=== PATIENT | female | born 1945 | race Caucasian/White ===

== ENCOUNTER 2018-01-28 22:30 | Observation (INO) | payer OTHER ==
--- OUTSIDE RECORDS SUMMARY | 2018-01-28 22:32 | XMS REPORT | Clinical Summary ---
:1945 Author Organization [facility] Address [address] [place] [address] Care Team Providers Name Role Phone Rodolfo Mathis MD Primary Care Provider Allergies Active Allergy Reactions Severity Noted Date Comments Naproxen Sodium 10/07/2016 Chest pain Codeine 10/07/2016 Chest pain-feels like having a heart attack Ibuprofen Hives, Itching 10/07/2016 Numbness in head Etodolac 10/07/2016 Chest pain Current Medications Prescription Sig. Disp. Refills Start Date End Date Status bisoprolol (ZEBETA) Take 5 mg by 1 09/08/2016 Active 5 MG tablet mouth daily. gabapentin TAKE 2 TABLET BY 1 09/20/2016 Active (NEURONTIN) 600 mg MOUTH 2 TIMES A tablet DAY FOR NERVE PAIN pantoprazole Take 40 mg by 0 09/04/2016 Active (PROTONIX) 40 MG EC mouth daily. tablet spironolactone Take 25 mg by 11 10/01/2016 Active (ALDACTONE) 25 MG mouth once daily. tablet aspirin (ECOTRIN) 81 Take 81 mg by Active MG enteric coated mouth daily. tablet cholecalciferol, Take by mouth. Active vitamin D3, (VITAMIN D3) 5,000 unit tablet CYANOCOBALAMIN, Take by mouth. Active VITAMIN B-12, (B-12 DOTS ORAL) multivitamin with Take 1 tablet by Active minerals tablet mouth daily. OMEGA-3 FATTY Take by mouth. Active ACIDS/FISH OIL (FISH OIL EXTRA STRENGTH ORAL) POTASSIUM CHLORIDE Take by mouth. Active ORAL OTC - 99mg takes one a day on her own. amoxicillin-pot Take 1 tablet by 0 08/16/2016 02/04/2017 Discontinued clavulanate mouth 2 (two) (AUGMENTIN) 875-125 times a day with mg per tablet meals. cefuroxime (CEFTIN) Take 250 mg by 1 09/15/2016 02/04/2017 Discontinued 250 MG tablet mouth 2 (two) times a day. colestipol Take 1 g by mouth 5 08/19/2016 02/04/2017 Discontinued (COLESTID) 1 gram 2 (two) times a tablet day. DULoxetine TAKE 1 TO 2 0 10/04/2016 02/28/2017 Discontinued (CYMBALTA) 20 MG CAPSULES BY MOUTH capsule AT BEDTIME FOR NERVE PAIN lisinopril Take 10 mg by 3 08/10/2016 02/04/2017 Discontinued (PRINIVIL,ZESTRIL) mouth once daily. 10 mg tablet predniSONE TAKE 2 TAB 0 08/16/2016 02/04/2017 Discontinued (DELTASONE) 10 mg 2XDAILY X1DAY,1 tablet TAB 2XDAILY X2DAYS,1/2 TAB 2XDAILY X2DAYS promethazine-DM TAKE ONE 1 08/16/2016 02/04/2017 Discontinued (PROMETHAZINE-DM) TEASPOONFUL EVERY 6.25-15 mg/5 mL 6 HOURS NEEDED syrup FOR COUGH PREVIDENT 5000 USE TWICE A DAY 0 09/07/2016 02/04/2017 Discontinued BOOSTER PLUS 1.1 % IN PLACE OF paste TOOTHPASTE. DON'T EAT DRINK OR RINSE FOR 30 MINUTES AFTER USE traMADol (ULTRAM) 50 TAKE 1 TABLET BY 0 02/17/2017 02/28/2017 Discontinued mg tablet MOUTH 4 TIMES A DAY NEEDED FOR PAIN venlafaxine XR TAKE 1 CAPSULE BY 2 02/04/2017 02/28/2017 Discontinued (EFFEXOR-XR) 75 MG MOUTH EVERY DAY. 24 hr capsule Active Problems Problem Noted Date Carpal tunnel syndrome of right wrist 2017 Carpal tunnel syndrome on right 10/07/2016 Cervical spondylosis with myelopathy and radiculopathy 10/07/2016 Arthropathy of right shoulder 10/07/2016 Encounters Date Type Specialty Care Team Description 03/03/2017 Office Visit Neurosurgery Richard Guanal tunnel curt Rangel MD of right wrist (Primary Dx) 03/03/2017 Telephone Neurosurgery Pinky Welsh LVN 02/28/2017 Orders Only Neurosurgery Terrie Asif 2017 Hospital Encounter General Surgery Richard Guan MD 2017 Procedure Pass General Surgery 2017 Surgery General Surgery Richard Guan RIGHT CARPAL TUNNEL MD Juan Carlos RE-EXPLORATION AND DECOMPRESSION 02/04/2017 Anesthesia Event General Surgery Jeanie Kuhn APRN after 01/27/2017 Family History Medical History Relation Name Comments Arthritis Father Asthma Father Diabetes Father Heart disease Father Hypertension Father Cancer Mother Gallbladder disease Mother Diabetes Sister Gallbladder disease Sister Heart disease Sister Hepatitis Sister Hypertension Sister Relation Name Status Comments Father Mother Sister Social History Tobacco Use Types Packs/Day Years Used Date Never Smoker Smokeless Tobacco: Never Used Alcohol Use Drinks/Week oz/Week Comments No Sex Assigned at Date Recorded Not on file Last Filed Vital Signs Vital Sign Reading Time Taken Blood Pressure 134/71 03/03/2017 12:18 PM CDT Pulse 73 03/03/2017 12:18 PM CDT Temperature 36.9 C (98.5 F) 2017 11:00 AM CDT Respiratory Rate 18 2017 1:23 PM CDT Oxygen Saturation 98% 2017 1:23 PM CDT Inhaled Oxygen Concentration - - Weight 59.9 kg (132 lb) 03/03/2017 12:18 PM CDT Height 162.6 cm (5' 4") 03/03/2017 12:18 PM CDT Body Mass Index 22.66 03/03/2017 12:18 PM CDT Plan of Treatment Health Maintenance Due Date Last Done Comments COLONOSCOPY 1995 MAMMOGRAM 1995 SHINGRIX VACCINE (#1) 1995 ZOSTER VACCINE 2005 PNEUMOCOCCAL POLYSACCHARIDE VACCINE AGE 65 AND OVER 2010 PNEUMOCOCCAL-13 2010 INFLUENZA VACCINE 04/19/2018 Procedures Procedure Name Priority Date/Time Associated Diagnosis Comments VA AN ELECTIVE Routine 2017 9:09 AM SUPRAGLOTTIC AIRWAY CDT Procedure Note - Nely Estrella MD - 2017 9:08 AM CDT Airway Performed by: NELY ESTRELLA Authorized by: NELY ESTRELLA Location: OR Urgency: Elective Difficult Airway: No Anesthesiologist: NELY ESTRELLA Performed by: anesthesiologist Preoxygenated with 100% O2: Yes C-spine Precautions Maintained Throughout: Yes Mask Ventilation: Easy mask Final Airway Type: Supraglottic airway Final LMA: Classic LMA Size: 4 Number of Attempts at Approach: 1 RIGHT CARPAL TUNNEL 2017 8:00 AM CDT RIGHT CARPAL TUNNEL RE-EXPLORATION AND DECOMPRESSION SYNDROM G56.01 Case Notes EST 2HRS, MICROSCOPE Special Needs EST 2HRS, MICROSCOPE after 01/27/2017 Results Potassium, syringe (2017 6:45 AM) Component Value Ref Range Potassium, syringe 4.5 3.5 - 5.0 mEq/L Specimen Performing Laboratory Blood [facility] DEPARTMENT OF PATHOLOGY AND GENOMIC MEDICINE [address] [place] [id number] ECG Pre/Post Op (02/04/2017 5:54 PM) Component Value Ref Range Ventricular rate 62 Atrial rate 62 VA interval 164 QRSD interval 74 QT interval 430 QTC interval 436 P axis 1 65 QRS axis 1 14 T wave axis 27 EKG impression Normal sinus rhythm-Normal ECG-In automated comparison with ECG of 01-MAR-2014 16:03,-Sinus rhythm has replaced Atrial fibrillation-Vent. rate has decreased BY82 BPM-Criteria for Inferior infarct ar e no longer present- Specimen Performing Laboratory [facility] MUSE [address] [place] [id number] Estimated GFR (02/04/2017 5:41 PM) Component Value Ref Range GFR Non Af Amer >90 mL/min/1.73 m2 GFR Af Amer >90 mL/min/1.73 m2 Comment: Chronic kidney disease: <60 mL/min/1.73m2 Kidney failure: <15 mL/min/1.73m2 The estimated GFR is calculated from the IDMS-traceable Modification of Diet in Renal Disease Equation. The accuracy of the calculation is poor when the creatinine is normal. Calculated values >90 mL/min/1.73m2 are not reported. This equation has not been validated in children (<18 years), women, the elderly (>70 years), or ethnic groups other than Caucasians and Americans. Specimen Performing Laboratory Plasma specimen [facility] DEPARTMENT OF PATHOLOGY AND GENOMIC MEDICINE [address] [place] [id number] CBC hemogram (02/04/2017 5:41 PM) Component Value Ref Range WBC 6.86 4.50 - 11.00 k/uL RBC 4.46 4.20 - 5.50 m/uL HGB 12.8 12.0 - 16.0 g/dL HCT 39.9 37.0 - 47.0 % MCV 89.5 82.0 - 100.0 fL MCH 28.7 27.0 - 34.0 pg MCHC 32.1 31.0 - 37.0 g/dL RDW - SD 42.4 37.0 - 55.0 fL MPV 11.8 8.8 - 13.2 fL Platelet count 214 150 - 400 k/uL Nucleated RBC 0.00 /100 WBC Specimen Performing Laboratory Blood [facility] DEPARTMENT OF PATHOLOGY AND GENOMIC MEDICINE [address] [place] [id number] Basic metabolic panel (02/04/2017 5:41 PM) Component Value Ref Range Sodium 146 135 - 148 mEq/L Potassium 3.0 (LL) 3.5 - 5.0 mEq/L Chloride 100 98 - 112 mEq/L CO2 31 24 - 31 mEq/L Anion gap 15 7 - 15 mEq/L Comment: Starting from December , anion gap calculation no longer incorporates potassium. Please note the change. BUN 15 8 - 23 mg/dL Creatinine 0.6 0.5 - 0.9 mg/dL Glucose 98 65 - 99 mg/dL Calcium 8.7 (L) 8.8 - 10.2 mg/dL Specimen Performing Laboratory Plasma specimen [facility] DEPARTMENT OF PATHOLOGY AND GENOMIC MEDICINE [address] [place] [id number] after 01/27/2017 Insurance Payer Benefit Plan / Group Subscriber ID Type Phone Address CORNELIA LOCKE PPO OPEN CHOICE xxxxxxxxx PPO MEDICARE MEDICARE PART A AND B xxxxxxxxxx Medicare [place], [place] [phone] [phone]
[2018-01-28] MEDS ORDERED: MORPHINE 4 MG/ML SYR ONE (22:45)
[2018-01-28] MEDS ORDERED: NA CHLORIDE 0.9% 500 ML ONE (22:45)
--- NOTE | 2018-01-29 00:47 | ER ---
Nurse's Notes [facility] Name: Sharla Tesfaye Age: 72 yrs Sex: Female : 1945 Arrival Date: 01/28/2018 Time: 22:32 Bed 25 Private MD: Diagnosis: Fall on same level from slipping, tripping and stumbling;Nondisplaced fracture of greater tuberosity of right humerus Presentation: 01/28 22:30 Presenting complaint: EMS states: Mechanical fall, c/o right shoulder and hip pain. rk2 Transition of care: patient was not received from another setting of care. Onset of symptoms was January 29, 2018. 22:30 Method Of Arrival: EMS: [facility] rk2 22:30 Initial Sepsis Screen: Does the patient meet any 2 criteria? No. Patient's initial rk2 sepsis screen is negative. Does the patient have a suspected source of infection? No. Patient's initial sepsis screen is negative. Care prior to arrival: None. 22:30 Acuity: JENNIFER 3 rk2 Historical: - Allergies: 22:40 Amoxicillin; tl3 22:40 Codeine; tl3 22:40 Etodolac; tl3 22:40 Ibuprofen; tl3 - Home Meds: 22:40 aspirin 81 mg Oral chew 1 tab once daily [Active]; bisoprolol fumarate 5 mg Oral tab 1 tl3 tab once daily [Active]; calcium citrate 600 mg Oral gran [Active]; Fish Oil 1,000 mg Oral cap [Active]; gabapentin 600 mg Oral tab 1 tab 3 times per day [Active]; spironolactone 25 mg Oral tab 1 tab once daily [Active]; pantoprazole 40 mg Oral TbEC 1 tab once daily [Active]; paroxetine HCl 20 mg Oral tab 1 tab once daily [Active]; magnesium oxide 400 mg Oral cap [Active]; Vitamin C 1,000 mg Oral tab [Active]; - PSHx: 22:41 Gastric Bypass; Knee surgery; Cholecystectomy; Appendectomy; Hysterectomy; tl3 Tonsillectomy; - Immunization history:: Adult Immunizations up to date. - Social history:: Smoking status: Patient/guardian denies using tobacco, never smoked. Screenin:41 Abuse screen: Denies threats or abuse. Nutritional screening: No deficits noted. tl3 Tuberculosis screening: No symptoms or risk factors identified. Fall Risk None identified. Assessment: 22:35 General: Appears distressed, uncomfortable, slender, well groomed, well developed, well tl3 nourished, Behavior is calm, cooperative, appropriate for age. Pain: Complains of pain in anterior aspect of right shoulder and posterior aspect of right shoulder, right hip Pain currently is 10 out of 10 on a pain scale. Neuro: Level of Consciousness is awake, alert, obeys commands, Oriented to person, place, time, situation, Appropriate for age. Cardiovascular: Heart tones S1 S2 present Capillary refill < 3 seconds in bilateral fingers. Respiratory: Airway is patent Trachea midline Respiratory effort is even, unlabored, Respiratory pattern is regular, symmetrical, Breath sounds are clear bilaterally. GI: No signs and/or symptoms were reported involving the gastrointestinal system. : No signs and/or symptoms were reported regarding the genitourinary system. EENT: No signs and/or symptoms were reported regarding the EENT system. Derm: No signs and/or symptoms reported regarding the dermatologic system. Musculoskeletal: Reports pt fell in the driveway 40 minutes PSYCHIATRIC CNS, c/o right shoulder and hip pain. 23:40 Reassessment: No changes from previously documented assessment. Patient and/or family tl3 updated on plan of care and expected duration. Pain level reassessed. Patient is alert, oriented x 3, equal unlabored respirations, skin warm/dry/pink. c/o pain with movement of left arm and hip. 01/29 00:20 Reassessment: No changes from previously documented assessment. Patient and/or family tl3 updated on plan of care and expected duration. Pain level reassessed. Patient is alert, oriented x 3, equal unlabored respirations, skin warm/dry/pink. pt assisted to bedside commode, it was slow moving, but she was able to get up using a walker to maneuver to commode. 01:03 Reassessment: Patient appears in no apparent distress at this time. No changes from tl3 previously documented assessment. Patient and/or family updated on plan of care and expected duration. Pain level reassessed. Patient is alert, oriented x 3, equal unlabored respirations, skin warm/dry/pink. Vital Signs: 01/28 22:26 BP 156 / 69; Pulse 64; Resp 18; Pulse Ox 100% on R/A; tl3 22:41 BP 167 / 73; Pulse 78; Resp 18; Pulse Ox 100% on R/A; tl3 01/29 00:20 BP 200 / 90; Pulse 68; Resp 18; Pulse Ox 100% ; tl3 01:03 BP 149 / 66; Pulse 68; Resp 16; Pulse Ox 100% on R/A; tl3 01:30 BP 125 / 55; Pulse 68; Resp 17; Pulse Ox 100% on R/A; rk2 ED Course: 01/28 22:26 on bedside commode. tl3 22:32 Patient arrived in ED. ds1 22:33 Elisab[facility] Mo [facility]C [facility]. snw 22:33 Alok Oneill MD is Attending Physician. snw 22:35 Theresa Figueroa, BENNY is Primary Nurse. tl3 22:41 Resting quietly. tl3 22:41 Patient has correct armband on for positive identification. Bed in low position. Call tl3 light in reach. Side rails up X 1. Adult w/ patient. Pulse ox on. NIBP on. 22:41 No provider procedures requiring assistance completed. tl3 23:19 X-ray completed. Portable x-ray completed in exam room. Patient tolerated procedure kp1 well. 23:19 XRAY Shoulder RIGHT 2 view In Process Unspecified. EDMS 23:19 Hip Right 2 View XRAY In Process Unspecified. EDMS 01/29 01:03 Deo Echeverria MD is Hospitalizing Provider. snw 01:31 Triage completed. rk2 02:19 Arm band placed on. rk2 02:19 Patient admitted, IV remains in place. rk2 Administered Medications: 01/28 22:50 Drug: morphine 2 mg Route: IVP; Site: left antecubital; tl3 23:41 Follow up: Response: No adverse reaction; Pain is decreased tl3 23:40 Drug: NS 0.9% 1000 ml Route: IV; Rate: 75 ml/hr; Site: left antecubital; tl3 01/29 00:53 Drug: cloNIDine 0.1 mg Route: PO; tl3 01:15 Follow up: Response: Blood pressure is lowered tl3 Outcome: 00:46 Discharge ordered by . snw 01:04 Decision to Hospitalize by Provider. snw 02:18 Admitted to Med/surg accompanied by tech, via stretcher. rk2 02:18 Condition: good 02:18 Instructed on the need for admit. 02:20 Patient left the ED. rk2 Signatures: Dispatcher [employer] EDMS Elisabet Mo, RAIL TRACK LAYER-C RAIL TRACK LAYER-Csnw Emy Obando ds1 Allison Floyd kp1 Jaja Tristan RN RN rk2 Theresa Figueroa RN RN tl3
--- NOTE | 2018-01-29 00:47 | EDPHYS ---
Physician Documentation [facility] Name: Sharla Tesfaye Age: 72 yrs Sex: Female : 1945 Arrival Date: 01/28/2018 Time: 22:32 Bed 25 Private MD: ED Physician Alok Oneill HPI: 01/28 22:35 This 72 yrs old Female presents to ER via Unassigned with complaints of fall snw on same level. 22:35 The patient or guardian complains of decreased range of motion, an injury, pain, that snw is acute. right shoulder. Context: The problem was sustained at home, resulted from a fall, helping Sister into home, lost balance, The patient experiences decreased range of motion, The patient notes a deformity, an anterior fullness, a deltoid step-off. Onset: The symptoms/episode began/occurred suddenly, just prior to arrival. Associated signs and symptoms: Pertinent positives: pain to right hip . The patient presents with decreased range of motion, an injury, pain. The complaints affect the right hip. Context: The problem was sustained at home, resulted from the patient falling, the patient is not able to bear weight, the patient is not able to ambulate. Historical: - Allergies: 22:40 Amoxicillin; tl3 22:40 Codeine; tl3 22:40 Etodolac; tl3 22:40 Ibuprofen; tl3 - Home Meds: 22:40 aspirin 81 mg Oral chew 1 tab once daily [Active]; bisoprolol fumarate 5 mg Oral tab 1 tl3 tab once daily [Active]; calcium citrate 600 mg Oral gran [Active]; Fish Oil 1,000 mg Oral cap [Active]; gabapentin 600 mg Oral tab 1 tab 3 times per day [Active]; spironolactone 25 mg Oral tab 1 tab once daily [Active]; pantoprazole 40 mg Oral TbEC 1 tab once daily [Active]; paroxetine HCl 20 mg Oral tab 1 tab once daily [Active]; magnesium oxide 400 mg Oral cap [Active]; Vitamin C 1,000 mg Oral tab [Active]; - PSHx: 22:41 Gastric Bypass; Knee surgery; Cholecystectomy; Appendectomy; Hysterectomy; tl3 Tonsillectomy; - Immunization history:: Adult Immunizations up to date. - Social history:: Smoking status: Patient/guardian denies using tobacco, never smoked. ROS: 22:34 Constitutional: Negative for fever, chills, and weight loss, Eyes: Negative for injury, snw pain, redness, and discharge, ENT: Negative for injury, pain, and discharge, Neck: Negative for injury, pain, and swelling, Cardiovascular: Negative for chest pain, palpitations, and edema, Respiratory: Negative for shortness of breath, cough, wheezing, and pleuritic chest pain, Abdomen/GI: Negative for abdominal pain, nausea, vomiting, diarrhea, and constipation, Back: Negative for injury and pain, : Negative for injury, bleeding, discharge, and swelling, Skin: Negative for injury, rash, and discoloration, Neuro: Negative for headache, weakness, numbness, tingling, and seizure. 22:34 MS/extremity: Positive for injury or acute deformity, contusion, decreased range of motion, pain, of the right shoulder and hip. Exam: 22:33 Constitutional: This is a well developed, well nourished patient who is awake, alert, snw and in no acute distress. Head/Face: Normocephalic, atraumatic. Eyes: Pupils equal round and reactive to light, extra-ocular motions intact. Lids and lashes normal. Conjunctiva and sclera are non-icteric and not injected. Cornea within normal limits. Periorbital areas with no swelling, redness, or edema. ENT: Nares patent. No nasal discharge, no septal abnormalities noted. Tympanic membranes are normal and external auditory canals are clear. Oropharynx with no redness, swelling, or masses, exudates, or evidence of obstruction, uvula midline. Mucous membranes moist. Neck: Trachea midline, no thyromegaly or masses palpated, and no cervical lymphadenopathy. Supple, full range of motion without nuchal rigidity, or vertebral point tenderness. No Meningismus. Chest/axilla: Normal chest wall appearance and motion. Nontender with no deformity. No lesions are appreciated. Cardiovascular: Regular rate and rhythm with a normal S1 and S2. No gallops, murmurs, or rubs. Normal PMI, no JVD. No pulse deficits. Respiratory: Lungs have equal breath sounds bilaterally, clear to auscultation and percussion. No rales, rhonchi or wheezes noted. No increased work of breathing, no retractions or nasal flaring. Abdomen/GI: Soft, non-tender, with normal bowel sounds. No distension or tympany. No guarding or rebound. No evidence of tenderness throughout. Back: No spinal tenderness. No costovertebral tenderness. Full range of motion. Skin: Warm, dry with normal turgor. Normal color with no rashes, no lesions, and no evidence of cellulitis. Neuro: Awake and alert, GCS 15, oriented to person, place, time, and situation. Cranial nerves II-XII grossly intact. Motor strength 5/5 in all extremities. Sensory grossly intact. Cerebellar exam normal. Normal gait. Psych: Awake, alert, with orientation to person, place and time. Behavior, mood, and affect are within normal limits. 22:33 Musculoskeletal/extremity: Extremities: grossly normal except: noted in the right shoulder and right hip: contusion, decreased ROM, ROM: limited active range of motion, limited active range of motion due to pain, limited passive range of motion due to pain, Circulation is intact in all extremities. Severe pain noted. Vital Signs: 22:26 BP 156 / 69; Pulse 64; Resp 18; Pulse Ox 100% on R/A; tl3 22:41 BP 167 / 73; Pulse 78; Resp 18; Pulse Ox 100% on R/A; tl3 01/29 00:20 BP 200 / 90; Pulse 68; Resp 18; Pulse Ox 100% ; tl3 01:03 BP 149 / 66; Pulse 68; Resp 16; Pulse Ox 100% on R/A; tl3 01:30 BP 125 / 55; Pulse 68; Resp 17; Pulse Ox 100% on R/A; rk2 MDM: 01/28 22:33 Patient medically screened. snw 01/29 00:50 Data reviewed: vital signs, nurses notes. Data interpreted: Pulse oximetry: on room air snw is 100 %. Interpretation: normal. Counseling: I had a detailed discussion with the patient and/or guardian regarding: the historical points, exam findings, and any diagnostic results supporting the discharge/admit diagnosis, the presence of at least one elevated blood pressure reading (>120/80) during this emergency department visit, radiology results, the need for further work-up and treatment in the hospital. 01:04 Physician consultation: Vangie Leon MD was called at 00:39, was contacted at 00:39, snw regarding admission, to the telemetry unit. would like admission per Dr. Deo Echeverria MD. 01/28 22:40 Order name: XRAY Shoulder RIGHT 2 view snw 01/28 22:40 Order name: Hip Right 2 View XRAY snw 01/28 22:40 Order name: Saline Lock; Complete Time: 23:40 snw 01/28 23:24 Order name: Sling: and swathe; Complete Time: 00:48 snw 01/28 23:33 Order name: Misc. Order: attempt standing position/ambulation; Complete Time: 00:17 snw Administered Medications: 01/28 22:50 Drug: morphine 2 mg Route: IVP; Site: left antecubital; tl3 23:41 Follow up: Response: No adverse reaction; Pain is decreased tl3 23:40 Drug: NS 0.9% 1000 ml Route: IV; Rate: 75 ml/hr; Site: left antecubital; tl3 01/29 00:53 Drug: cloNIDine 0.1 mg Route: PO; tl3 01:15 Follow up: Response: Blood pressure is lowered tl3 Disposition: 01/29/18 01:04 Hospitalization ordered by eDo Echeverria for Inpatient Admission. Preliminary diagnosis are Fall on same level from slipping, tripping and stumbling, Nondisplaced fracture of greater tuberosity of right humerus. - Bed requested for Telemetry/MedSurg (Inpatient). - Status is Inpatient Admission. rk2 - Condition is Stable. - Problem is new. - Symptoms are unchanged. UTI on Admission? No Addendum: 02/12/2018 10:02 Co-signature as Attending Physician, Alok Oneill MD. m a2 Signatures: Dispatcher [employer] EDMS Elisabet Mo, MANAGER WEALTH MANAGEMENT-C MANAGER WEALTH MANAGEMENT-Csnw Katheryn Duran, RN BENNY Alok Oneill MD MD ma2 Jaja Tristan RN RN rk2 Theresa Figueroa RN RN tl3 Corrections: (The following items were deleted from the chart) 01/29 00:49 00:46 01/29/2018 00:46 Discharged to Home. Impression: Fall on same level from snw slipping, tripping and stumbling; 2-part nondisplaced fracture of surgical neck of right humerus. Condition is Stable. Forms are Medication Reconciliation Form, Thank You Letter, Antibiotic Education, Prescription Opioid Use. Follow up: Private Physician; When: 2 - 3 days; Reason: Recheck today's complaints, Continuance of care, Re-evaluation by your physician. Follow up: Emergency Department; When: As needed; Reason: Worsening of condition. snw 01:28 01:04 Hospitalization Ordered by Deo Echeverria MD for Inpatient Admission. Preliminary cg diagnosis is Fall on same level from slipping, tripping and stumbling; Nondisplaced fracture of greater tuberosity of right humerus. Bed requested for Telemetry/MedSurg (Inpatient). Status is Inpatient Admission. Condition is Stable. Problem is new. Symptoms are unchanged. UTI on Admission? No. snw 02:20 01:28 01/29/2018 01:04 Hospitalization Ordered by Deo Echeverria MD for Inpatient rk2 Admission. Preliminary diagnosis is Fall on same level from slipping, tripping and stumbling; Nondisplaced fracture of greater tuberosity of right humerus. Bed requested for Telemetry/MedSurg (Inpatient). Status is Inpatient Admission. Condition is Stable. Problem is new. Symptoms are unchanged. UTI on Admission? No. cg
[2018-01-29] MEDS ORDERED: cloNIDine HCl 0.1 MG TAB ONE (00:52)
[2018-01-29 03:05] VITALS: BMI 24.5
[2018-01-29 03:47] LABS: Absolute Lymphocytes (CBC) 0.9 K/uL (0.7-4.9); Absolute Neutrophil 10.9 K/uL (1.8-8.0); Basophils % 0.4 % (0-1.3); Eosinophils % 0.2 % (0-4.4); Hematocrit 37.7 % (36.0-45.0); Lymphocytes % 6.8 % (15.3-44.8); MCH 27.3 pg (27.0-35.0); MCV 84.6 fL (80-100); MPV 10.7 fL (7.6-11.3); Monocytes % 7.6 % (3.3-12.3); RBC Red Blood Cell Count 4.45 M/uL (3.86-4.86)
[2018-01-29] MEDS ORDERED: D5 0.45 NS 1,000 ML IV SCH (04:00)
[2018-01-29 04:08] LABS: Bicarbonate 29 mEq/L (21-31); Glucose Level 141 mg/dL (65-120); Potassium 3.2 mEq/L (3.6-5.0); Sodium Level 141 mEq/L (135-145)
[2018-01-29 04:09] LABS: BUN Blood Urea Nitrogen 17 mg/dL (6-20)
[2018-01-29 04:39] LABS: Thyroid Stimulating Hormone 1.94 uIU/mL (0.34-5.60)
[2018-01-29] MEDS: FENTANYL CITR 100 MCG/2 ML IV PRN ×2 (09:49→13:39)
--- NOTE | 2018-01-29 11:36 | RAD REPORT ---
EXAM DESCRIPTION: RAD - Hip Right 2 View - 01/28/2018 11:20 pm CLINICAL HISTORY: Fall, right hip pain COMPARISON: None. FINDINGS: The bones are quite osteopenic, limiting assessment. Grossly, a fracture is not seen. Adriane varma, if the patient has difficulty with weight-bearing, recommend MR imaging of the right hip for fur ther assessment to evaluate for occult fracture.
--- NOTE | 2018-01-29 11:37 | RAD REPORT ---
EXAM DESCRIPTION: RAD - Shoulder Right 2 View - 01/28/2018 11:20 pm CLINICAL HISTORY: Fall, right shoulder pain COMPARISON: None. FINDINGS: Impacted surgical neck fracture is seen of the proximal right humerus. Evidence of previou s right rotator cuff repair noted. No dislocation.
--- NOTE | 2018-01-29 12:15 | P.HP ---
Certification for Inpatient Patient admitted to: Observation With expected LOS: <2 Midnights Practitioner: I am a practitioner with admitting privileges, knowledge of patient current condition, hospital course, and medical plan of care. Services: Services provided to patient in accordance with Admission requirements found in Title 42 Section 412.3 of the Code of Federal Regulations Patient History Date of Service: 01/29/18 Reason for admission: FELL AND BROKE R HUMERUS History of Present Illness: FRANCE IS 89 YEARS OLD LADY WITH OSTEOPENIA , FELL OUTSIDE ON CONCRETE TRYING TO HOLD HER SICK SISTER AND FELL ON RIGHT SIDE. SHE HAS R HUMERUS FRACTURE AND RIGHT HIP MODERATE PAIN. MRI CAN'T BE DONE ON THE WEEKEND FOR RIGHT HIP. Allergies amoxicillin Allergy (Unverified 01/29/18 03:02) Unknown codeine Allergy (Verified 01/29/18 03:02) abdominal pain ibuprofen Allergy (Verified 01/29/18 03:02) Hives etodolac [From Lodine] Adverse Reaction (Verified 01/29/18 03:02) crushing chest pain when used with annaprox annaprox Adverse Reaction (Uncoded 01/29/18 03:02) crushing chest pain when used with lodine Home Medications: Ascorbic Acid [Vitamin C*] 500 mg PO BID 06/17/15 Cyanocobalamin [Vitamin B-12*] 1,000 mcg PO DAILY 06/17/15 Gabapentin [Neurontin] 600 mg PO TID 06/17/15 Pantoprazole [Protonix Tab*] 40 mg PO DAILY 06/17/15 Spironolactone [Aldactone*] 25 mg PO DAILY 06/17/15 Aspirin [Children's Aspirin] 1 tab PO DAILY 01/29/18 Bisoprolol Fumarate [Zebeta*] 1 tab PO DAILY 01/29/18 Calcium Carbonate [Calcium] 1 tab PO DAILY 01/29/18 Fish Oil 227 mg PO BID 01/29/18 Vit C 1,000 mg PO DAILY 01/29/18 Vit D3` 5,000 mg PO DAILY 01/29/18 - Past Medical/Surgical History Has patient received pneumonia vaccine in the past: Yes Diabetic: No -: Gastric bypass -: Knee surgery -: Cholecystectomy -: Appendectomy -: Hysterectomy -: tonsillectomy - Family History Father -: Diabetes - Social History Smoking Status: Never smoker Alcohol use: No CD- Drugs: No Caffeine use: No Place of Residence: Home Review of Systems 10-point ROS is otherwise unremarkable Musculoskeletal: Shoulder Pain, As per HPI Physical Examination - Vital Signs Temperature: 98.4 F Blood Pressure: 168/76 Pulse: 71 Respirations: 16 Pulse Ox (%): 97 - Physical Exam General: Alert, Moderate distress HEENT: Atraumatic, PERRLA, Mucous membr. moist/pink, EOMI, Sclerae nonicteric Neck: Supple, 2+ carotid pulse no bruit, No LAD, Without JVD or thyroid abnormality Respiratory: Clear to auscultation bilaterally, Normal air movement Cardiovascular: Regular rate/rhythm, Normal S1 S2 Gastrointestinal: Normal bowel sounds, No tenderness Musculoskeletal: Tenderness (R HUMERUS), Other Integumentary: No rashes Neurological: Normal gait, Normal speech, Normal strength at 5/5 x4 extr, Normal tone, Normal affect Lymphatics: No axilla or inguinal lymphadenopathy Assessment and Plan - Problems (Diagnosis) (1) Humerus fracture Current Visit: Yes Status: Acute Plan: CONSULT ORTHOPEDICS PAIN MX FENTANYL IV Qualifiers: Encounter type: initial encounter (2) Hip injury Current Visit: Yes Status: Acute Plan: MRI IN AM TALKED TO DR GONZALES HE SAYS CT SCAN WILL MISS AN OSTEOPENIC FRACTURE SHE IS IN TOO MUCH PAIN TO GO HOME. HOLD PT UNTIL MRI RULES OUT HIP FRACTURE. Qualifiers: Encounter type: initial encounter Laterality: right Qualified Code(s): S79.911A - Unspecified injury of right hip, initial encounter - Advance Directives Does patient have a Living Will: Yes Does patient have a Durable POA for Healthcare: Yes
[2018-01-29] MEDS: GABAPENTIN 300 MG CAP PO SCH ×2 (13:39→21:05)
[2018-01-29] MEDS ORDERED: FENTANYL CITR 100 MCG/2 ML IV PRN (13:41)
[2018-01-29] MEDS: D5 0.45 NS 1,000 ML IV SCH (15:23)
--- NOTE | 2018-01-29 20:13 | CON ---
Consultation is by Deo Echeverria MD, regarding impacted fracture proximal right humerus and right hip pain associated with fall and impact. History Of Present Illness: Sharla Tesfaye is a 72-year-old female who presented to the emergency room after a fall outside at home. She was trying to help her sister, who was ill and she fell to land on her right side impacting concrete after losing her balance. The patient on x-ray was noted to have an impacted fracture of the right proximal humerus and has complaints of right hip pain with negative x-ray, AP and frog lateral, right hip. She is admitted and scheduled for MRI scan of the right hip to rule out stress fracture tomorrow. Allergies: THE PATIENT HAS MEDICAL ALLERGIES TO AMOXICILLIN, CODEINE, ETODOLAC , AND IBUPROFEN. Home Medications: Reviewed. She is taking aspirin 81 mg daily and gabapentin 600 mg oral tablet t.i.d. amongst other medications that were reviewed. Past Medical History: Includes gastric bypass, knee surgery, cholecystectomy, appendectomy, hysterectomy, and tonsillectomy. Social History: The patient is a nonsmoker. Review of Systems: Negative for 10 system review. The patient has had back complaints in the past with MRI scan of the lumbar spine done on 10/20/2016 showing osteopenia with multiple wedge compression deformities throughout the thoracic and lumbar spine levels with marrow edema noted at T11, L2, L3, and L4, most severely at L3 and L4. Severe canal stenosis was noted at L4-L5 with bilateral recess stenosis. Physical Examination: General: This is a well nourished, well developed, 72-year-old female who is at bedrest with complaints of right shoulder and right hip pain. Pain in the right shoulder is aggravated by any movement. Neurovascular: Exam is intact for the right upper extremity. The right hip pain is described as running into and down her hamstring. She has been joking with her family about pulling her hammy. On examination, she allows gentle circumduction motion of the right hip as long as she leaves her hip relaxed, she tolerates this mild amount of movement. Straight leg lift increases the posterior hip and thigh pain. The patient demonstrates dorsiflexion of the ankle and toes. Neurovascular exam is intact. Homans sign is negative. Even slight internal or external rotation causes discomfort. Assessment: This patient has an impacted right humeral neck fracture that appears to be a 2-part fracture taken in the AP projection with slight rotation of the humerus. The patient has fallen with impact to the right hip and a stress fracture is of concern. The x-rays AP and frog lateral of the right hip show no fracture or dislocation and weightbearing joint space is appropriate. Assessment, 2-part impacted humeral neck fracture, right shoulder. Plan: The patient will be placed in a shoulder immobilizer. Then true AP and Y -view x-rays will be requested as a trauma series to show if there is any anterior shaft displacement. The patient will have MRI scan of the right hip to rule out stress fracture. Posterior hip pain into the posterior thigh can be related to sciatica as this patient has previous history of osteopenia and multiple wedge compression deformities with bilateral foraminal stenosis at L4- L5. MRI would be considered should her hip be cleared of stress fracture. PRAFUL/MARCIAL Voice ID: [id number] Report ID: [id number] ULISES
[2018-01-29] MEDS: HYDROCODONE/APAP 7.5/325 MG TAB PO PRN (21:05)
[2018-01-30 00:07] LABS: Urine Appearance CLEAR; Urine Bilirubin NEGATIVE (NEG); Urine Blood NEGATIVE (NEG); Urine Color YELLOW; Urine Glucose NEGATIVE (NEG); Urine Protein NEGATIVE (NEG); Urine Specific Gravity <=1.005 (1.005-1.030); Urine Urobilinogen 0.2 mg/dL (0.2-1.0); Urine pH 6.5 (5.0-7.0)
[2018-01-30 00:23] LABS: Urine Microscopic Reflex ORDER UMIC
[2018-01-30 01:21] LABS: Urine Bacteria 20-50 /HPF (<20); Urine Culture Reflex Order REFLEXED; Urine RBC <5 /HPF (NONE SEEN)
--- NOTE | 2018-01-30 09:19 | RAD REPORT ---
EXAM DESCRIPTION: RAD - Shoulder Right 2 View - 01/30/2018 8:19 am CLINICAL HISTORY: Fall, shoulder pain COMPARISON: 01/28/2018 FINDINGS: Again noted is mildly impacted surgical neck fracture proximal right humerus. No dislocati on is evident. Evidence of previous rotator cuff repair. The bones are diffusely osteopenic.
[2018-01-30] MEDS: CYANOCOBALAMIN 1,000 MCG TAB PO SCH (09:30)
[2018-01-30] MEDS: VITAMIN D 5,000 UNIT CAP PO SCH (09:30)
[2018-01-30] MEDS: GABAPENTIN 300 MG CAP PO SCH ×3 (09:30→21:01)
[2018-01-30] MEDS: PANTOPRAZOLE 40MG TABLET PO SCH (09:30)
[2018-01-30] MEDS: BISOPROLOL 5 MG TABLET PO SCH (09:30)
[2018-01-30] MEDS: D5 0.45 NS 1,000 ML IV SCH (13:17)
[2018-01-30] MEDS: HYDROCODONE/APAP 7.5/325 MG TAB PO PRN (13:17)
--- NOTE | 2018-01-30 16:49 | P.PN ---
Date of Service: 01/30/18 S: PATIENT IS MORE COMFORTABLE IN SHOULDER IMMOBILIZER FOR RIGHT UPPER EXTREMITY. MOBILIZATION HAS BEEN HELD PENDING WAIT FOR MRI SCAN REPORT RIGHT HIP. O: VSS, ADDITIONAL X-RAYS RIGHT SHOULDER VERIFY MINIMALLY DISPLACED AND IMPACTED FRACTURE OF THE SURGICAL NECK PROXIMAL HUMERUS. DR. FRANCOIS CALLED FROM RADIOLOGY DURING THIS VISIT TO REPORT THAT NO HIP FRACTURE IS PRESENT, INSTEAD THERE ARE RIGHT PUBIC RAMI FRACTURES OF THE PELVIS. A: MINIMALLY DISPLACED FRACTURES OF THE PROXIMAL RIGHT HUMERUS AND RIGHT PUBIC RAMI CAN BE MOBILIZED TOLERATED PAIN RESOLVES. NEITHER FRACTURE SHOULD REQUIRE OPERATIVE INTERVENTION. P: MOBILIZE WEIGHTBEARING TOLERATED RIGHT LOWER EXTREMITY USING A LEFT CHANTELL- WALKER. PATIENT HAS EXPRESSED DESIRE TO RETURN HOME WITH HOME HEALTH, BUT WILL HAVE TO DEMONSTRATE RAPID PROGRESS WITH MOBILIZATION.
--- NOTE | 2018-01-30 17:22 | RAD REPORT ---
EXAM DESCRIPTION: MRI - Hip Right Wo Cont - 01/30/2018 12:31 pm CLINICAL HISTORY: Fall, right hip pain COMPARISON: 01/28/2018 plain radiograph FINDINGS: Edema signal seen in the superior and inferior pubic rami on the right compatible with non displaced pubic rami fractures. Proximal right femur and femoroacetabular joints are preserved. A large amount of edema is seen within the right gluteal musculature as well as the adductor musculat ure of the hip. Subtle edema and linear T1 hypointensity in the right sacral ala likely represents an insufficiency f racture. IMPRESSION: Nondisplaced superior and inferior pubic rami fractures on the right suspected with sign ificant edema within the adductor and gluteal musculature. Right hip fracture is not seen. Right sacral ala signal abnormality likely represents an insufficiency fracture. Dr. Echeverria was notified.
--- NOTE | 2018-01-30 18:11 | P.PN ---
Subjective Date of Service: 01/30/18 Chief Complaint: FELL AND BROKE R HUMERUS ABOUT THE SAME. MRI REPORT PENDING. Review of Systems 10-point ROS is otherwise unremarkable General: Weakness, Malaise Musculoskeletal: As per HPI Physical Examination - Vital Signs Temperature: 98.8 F Blood Pressure: 155/67 Pulse: 76 Respirations: 18 Pulse Ox (%): 97 - Physical Exam General: Alert, Moderate distress HEENT: Atraumatic, PERRLA, EOMI Neck: Supple, JVD not distended Respiratory: Clear to auscultation bilaterally, Normal air movement Cardiovascular: Regular rate/rhythm, Normal S1 S2 Gastrointestinal: Normal bowel sounds, No tenderness Musculoskeletal: Other (RIGHT HIP PAIN, POSTERIOR) Integumentary: No rashes Neurological: Normal speech, Normal tone, Normal affect Lymphatics: No axilla or inguinal lymphadenopathy - Studies Medications List Reviewed: Yes Assessment And Plan - Current Problems (Diagnosis) (1) Humerus fracture Onset Date: 01/30/18 Current Visit: Yes Status: Acute Plan: CONSULT ORTHOPEDICS PAIN MX FENTANYL IV Qualifiers: Encounter type: initial encounter (2) Hip injury Onset Date: 01/30/18 Current Visit: Yes Status: Acute Plan: MRI IN AM TALKED TO DR GONZALES HE SAYS CT SCAN WILL MISS AN OSTEOPENIC FRACTURE SHE IS IN TOO MUCH PAIN TO GO HOME. HOLD PT UNTIL MRI RULES OUT HIP FRACTURE. Qualifiers: Encounter type: initial encounter Laterality: right Qualified Code(s): S79.911A - Unspecified injury of right hip, initial encounter (3) Pubic ramus fracture Current Visit: Yes Status: Acute Plan: SUP AND INF RAMI FRACTURE I CALLED TO GET REPORT STABLE ADVISE PAIN MX AND PT Qualifiers: Encounter type: initial encounter Fracture type: closed Laterality: right Qualified Code(s): S32.591A - Other specified fracture of right pubis, initial encounter for closed fracture
[2018-01-31] MEDS: D5 0.45 NS 1,000 ML IV SCH (05:57)
[2018-01-31 07:29] LABS: Absolute Lymphocytes (CBC) 1.3 K/uL (0.7-4.9); Absolute Monocytes 1.1 K/uL (0.1-1.3); Absolute Neutrophil 7.9 K/uL (1.8-8.0); Basophils % 0.6 % (0-1.3); Eosinophils % 1.8 % (0-4.4); Lymphocytes % 12.5 % (15.3-44.8); MCH 27.4 pg (27.0-35.0); MCV 84.5 fL (80-100); Monocytes % 10.4 % (3.3-12.3); RBC Red Blood Cell Count 4.26 M/uL (3.86-4.86)
[2018-01-31 07:44] LABS: BUN Blood Urea Nitrogen 6 mg/dL (6-20); Glucose Level 140 mg/dL (65-120)
[2018-01-31 07:47] LABS: Bicarbonate 32 mEq/L (21-31); Sodium Level 140 mEq/L (135-145)
[2018-01-31 08:05] LABS: Potassium 2.8 mEq/L (3.6-5.0)
[2018-01-31 09:12] VITALS: O2SAT 99
[2018-01-31] MEDS: CYANOCOBALAMIN 1,000 MCG TAB PO SCH (09:14)
[2018-01-31] MEDS: KCL 20 MEQ/100 mL IVPB 20 MEQ/100 ML BAG IV SCH ×2 (09:14→11:00)
[2018-01-31] MEDS: VITAMIN D 5,000 UNIT CAP PO SCH (09:14)
[2018-01-31] MEDS: GABAPENTIN 300 MG CAP PO SCH ×2 (09:15→13:25)
[2018-01-31] MEDS: BISOPROLOL 5 MG TABLET PO SCH (09:15)
[2018-01-31] MEDS: HYDROCODONE/APAP 7.5/325 MG TAB PO PRN ×2 (09:15→13:25)
[2018-01-31] MEDS: PANTOPRAZOLE 40MG TABLET PO SCH (09:15)
[2018-01-31] MEDS ORDERED: POTASSIUM CL SA 10 MEQ TAB PO SCH (13:30)
[2018-01-31 15:00] VITALS: BP 168/64; TEMP 97.1
--- NOTE | 2018-01-31 15:18 | P.PN ---
Date of Service: 01/31/18 S: PATIENT IS SITTING UP IN CHAIR BY BEDSIDE WITH HEMIWALKER NEXT TO CHAIR. MOBILIZATION WAS PAINFUL WITH STEPS ONTO RLE. . O: VSS, HGB 11.7, DOWN FROM 12.2, K+ 2.8 L, URINE > 100K,3+ Gm- ROCIO PENDING ID. RIGHT SHOULDER COMFORTABLE IN SHOULDER IMMOBILIZER DISPLACED AND . MRI SCAN REPORT OF THE RIGHT HIP HAS IDENTIFIED NONDISPLACED RIGHT PUBIC RAMI FRACTURES, AND INCREASED UPTAKE TO INDICATE A RIGHT SACRAL ALA INSUFFICIENCY FRACTURE A: CLOSED, MINIMALLY DISPLACED, IMPACTED FRACTURE OF THE RIGHT PROXIMAL HUMERUS SURGICAL NECK. NONDISPLACED SUPERIOR AND INFERIOR RIGHT PUBIC RAMI FRACTURES OF PELVIS NONDISPLACED RIGHT SACRAL ALA INSUFFICIENCY FRACTURE PATIENT CAN BE MOBILIZED TOLERATED PAIN RESOLVES. PATIENT'S MINIMALLY OR NONDISPLACED FRACTURES NOT LIKELY TO REQUIRE OPERATIVE INTERVENTION. P: CONTINUE TO MOBILIZE PATIENT TO WEIGHT BEARING TOLERATED RIGHT LOWER EXTREMITY USING A LEFT HEMIWALKER. 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
--- NOTE | 2018-01-31 21:24 | P.DS ---
Admission Date: 01/29/18 Discharge Date: 01/31/18 Disposition: TRANSFER TO INPATIENT REHAB Discharge Condition: FAIR Reason for Admission: FELL AND BROKE R HUMERUS - Problems (1) Humerus fracture Onset Date: 01/30/18 Status: Acute Qualifiers: Encounter type: initial encounter (2) Hip injury Onset Date: 01/30/18 Status: Acute Qualifiers: Encounter type: initial encounter Laterality: right Qualified Code(s): S79.911A - Unspecified injury of right hip, initial encounter (3) Pubic ramus fracture Status: Acute Qualifiers: Encounter type: initial encounter Fracture type: closed Laterality: right Qualified Code(s): S32.591A - Other specified fracture of right pubis, initial encounter for closed fracture Brief History of Present Illness: FRANCE IS 89 YEARS OLD LADY WITH OSTEOPENIA , FELL OUTSIDE ON CONCRETE TRYING TO HOLD HER SICK SISTER AND FELL ON RIGHT SIDE. SHE HAS R HUMERUS FRACTURE AND RIGHT HIP MODERATE PAIN. MRI CAN'T BE DONE ON THE WEEKEND FOR RIGHT HIP. FRANCE FELL OUTSIDE WHEN TRYING TO HOLD HER SISTER WHO HAS HAD SEVERE ALCOHOL PROBLEM. SHE BROKE RIGHT HUMERUS AND HAS TWO PUBIC RAMI FRACTURES ON RIGHT SIDE. SHE IS NOW TRANSFERRED TO REHAB. Vital Signs/Physical Exam: Temp Pulse Resp BP Pulse Ox 97.1 F 75 18 168/64 H 96 01/31/18 12:00 01/31/18 12:00 01/31/18 12:00 01/31/18 12:00 01/31/18 12:00 Laboratory Data at Discharge: WBC 10.6 K/uL (4.3-10.9) D 01/31/18 07:17 Hgb 11.7 g/dL (12.0-15.0) L 01/31/18 07:17 Hct 36.0 % (36.0-45.0) 01/31/18 07:17 Plt Count 150 K/uL (152-406) L 01/31/18 07:17 Sodium 140 mEq/L (135-145) 01/31/18 07:17 Potassium 2.8 mEq/L (3.6-5.0) L* 01/31/18 07:17 BUN 6 mg/dL (6-20) 01/31/18 07:17 Creatinine 0.55 mg/dL (0.44-1.00) 01/31/18 07:17 Glucose 140 mg/dL (65-120) H 01/31/18 07:17 Home Medications: Ascorbic Acid [Vitamin C*] 500 mg PO BID 06/17/15 Cyanocobalamin [Vitamin B-12*] 1,000 mcg PO DAILY 06/17/15 Gabapentin [Neurontin] 600 mg PO TID 06/17/15 Pantoprazole [Protonix Tab*] 40 mg PO DAILY 06/17/15 Spironolactone [Aldactone*] 25 mg PO DAILY 06/17/15 Aspirin [Children's Aspirin] 1 tab PO DAILY 01/29/18 Bisoprolol Fumarate [Zebeta*] 1 tab PO DAILY 01/29/18 Calcium Carbonate [Calcium] 1 tab PO DAILY 01/29/18 Fish Oil 227 mg PO BID 01/29/18 Vit C 1,000 mg PO DAILY 01/29/18 Vit D3` 5,000 iu PO DAILY 01/29/18 Followup: Deo Echeverria MD [Primary Care Provider] - Zach Galvez MD [ACTIVE - CAN ADMIT] -
== END 2018-01-31 15:42 ==
LOC: ER 22:30 → INTOOBSV 01-29 00:55 → ERHOLD 01-29 00:55 → 2ND 01-29 01:40
PROVIDERS: ADMIT Internal Medicine; ATTEND Internal Medicine
DX: S42.211A Unspecified displaced fracture of surgical neck of right humerus, initial encounter for closed fracture (principal); S32.591A Other specified fracture of right pubis, initial encounter for closed fracture; S32.10XA Unspecified fracture of sacrum, initial encounter for closed fracture; W01.0XXA Fall on same level from slipping, tripping and stumbling without subsequent striking against object, initial encounter; Y92.480 Sidewalk as the place of occurrence of the external cause; Z88.0 Allergy status to penicillin; Z98.84 Bariatric surgery status
CPT/HCPCS: 36415 ×2; 73030 ×2; 73502; 73721; 80048 ×2; 84443; 85025 ×2; 87077; 87086; 87088; 87186; 96374; 97110; 97116 ×2; 97163; 97530 ×2; 99285; G0378 ×2; J3010 ×2; 81003; 81015

== ENCOUNTER 2018-01-31 09:26 | Inpatient (IN) | payer OTHER ==
--- NOTE | 2018-01-31 14:14 | R.PREADM ---
SCREENING DATE AND TIME 01/31/2018 10:32 (CDT) ANTICIPATED REHAB ADMISSION DATE 02/02/2018 REFERRING FACILITY [facility] REFERRAL DATE AND TIME 01/31/2018 10:32 (CDT) ACUTE ADMIT DATE 01/29/2018 Previous Rehabilitation(s): No. REFERRING PHYSICIAN ABDOULAYE FRANCOIS REHAB FACILITY [facility] CLINICAL LIAISON Jonnathan Mcneil PHYSICIAN REVIEWER Dr. Luke Major M.D. MR# [id number] NAME FRANCE BAUMANN AD[address]ESS [address] [facility] PHONE [facility] [address] DATE OF 1945 AGE 72 SSN# [id number] GENDER female MARITAL STATUS Unknown RACE white ADMIT FROM 02 - [facility] PRE-HOSPITAL LIVING SETTING 01 - Home (private home/apt. board/care, assisted living, detention, transitional living) HOME TYPE AND DETAILS Type of home: single family house # of steps within the residence: 0 # of steps to enter the residence: 0 # of levels in the residence: 1 PRE-HOSPITAL LIVING WITH Family/Relatives FAMILY SUPPORT Yes PRIMARY FAMILY CONTACT NAME Cnosuelo Tuttle PRIMARY FAMILY CONTACT PHONE PHONE PRIMARY FAMILY CONTACT ON ADM.? no IS PRIMARY FAMILY CONTACT AUTH. REP.? no 1ST EMERGENCY CONTACT Consuelo Tuttle 1ST CONTACT PHONE PHONE 1ST CONTACT ON ADM. no IS 1ST CONTACT AUTH. REP.? no PHONE 2ND CONTACT ON ADM.? no PATIENT EMPLOYMENT STATUS Retired (for age) PATIENT EMPLOYER No Employer PAYOR INFORMATION: 1ST PAYOR NAME Medicare 1ST PAYOR PHONE 1ST PAYOR INJURY/ILLNESS DUE TO ACCIDENT? No ANOTHER REPUBLICAN RESPONSIBLE? No PRIMARY REHAB/ACUTE DIAGNOSIS: pubic ramus fx, humerus fx, hip pain ONSET DATE 01/29/2018 REHAB IMPAIRMENT CATEGORY (KATHIE): 07 Fracture of LE (FracLE) MEETS 60% rule PRIMARY DIAGNOSIS-RELATED SURGERIES: No surgeries related to the primary diagnosis were performed. COMORBID REHAB/ACUTE DIAGNOSES: - N/A osteopenia hypertension INTERVENTIONS: - Hypertension Fluid management Medications VS RISK FOR COMPLICATIONS: - Hypertension CVA Hypotension WI TIA SUMMARY OF ACUTE HOSPITALIZATION: Pt. is a 72 yo Right-handed white female. On 01/29/2018 she was admitted to [facility] with diagnosis pubic ramus fx, hum erus fx, hip pain. Her impairment category is Orthopaedic Disorders 08 - Pelvic Fracture (08.3). Pre-morbidly, Pt. was independent/mod-I in Sphincter Control, Transfers Control, Communication, Socia l Cognition, Self-Care, and Locomotion; and she had good Sphincter Control. Currently, she has deficits of Endurance, Safety Awareness, Transfers Control, Balance, Locomotion, a nd Self-Care. Pt. is now referred to [facility] for acute in-patient rehabilitation in order to maximize patient's functional independence in activities of daily living, strength, ROM, and mobi lity. Patient has realistic goal of being discharged at assistance level 6-Candy to reside at Home with Fam brian/Relatives. PAST MEDICAL HISTORY hypertension osteopenia MEDICATION ALLERGIES: amoxicillin CODEINE ibuprofen etodolac annaprox ENVIRONMENTAL ALLERGIES: - Substance Allergies None Known - Other Allergies None Known CODE STATUS: Full code WEIGHT/HEIGHT/BMI: WEIGHT 143 lbs HEIGHT 5' 4" BMI 24.5 DIET: - Diet Type Regular - Diet - Solid Texture Regular - Diet - Liquid Texture Regular - Tube Feed N/A REVIEW OF SYSTEMS: - Gen Alert and awake Lying in bed No apparent distress Oriented to: person, time, and place - Vital Signs Vital signs stable, afebrile - CVS RRR VITAL SIGNS Temperature: 98.8 F SBP/DBP: 155/67 Pulse: 76 Resp: 18 Vital signs stable, afebrile CURRENT SPHINCTER CONTROL: Pre-hospital bladder status: continent # of bladder accidents in the last 7 days prior to screenin Pre-hospital bowel status: continent # of bowel accidents in the last 7 days prior to screenin Last Bowel Movement Date: 01/31/2018 DETAILED CURRENT FUNCTIONAL STATUS: - Bladder accident frequency: Ind - No accidents in the past 7 days - Bowel accident frequency: Ind - No accidents in the past 7 days - Walking score based on distance walked: 1(<=50ft) FUNCTIONAL STATUS: - Self-Care A. Eating Ind Ind B. Grooming Ind Ind C. Bathing Ind Ind D. Dressing - Upper Ind Ind E. Dressing - Lower Ind maxA F. Toileting Ind maxA - Sphincter Control G: Bladder control Ind Ind H: Bowel control Ind Ind - Transfers Control I. Bed/Chair/Wheelchair Ind maxA J. Toilet Ind maxA K. Tub/Shower Ind maxA - Locomotion L. Walk/Wheelchair (B) Ind Dep M. Stairs Ind ADNO - Communication N. Comprehension (B) Ind Ind O. Expression (B) Ind Ind - Social Cognition P. Social Interaction Ind Ind Q. Problem Solving Ind Ind R. Memory Ind Ind - Endurance Poor - Balance Poor - Safety Awareness Poor CURRENT FUNC. DEFICITS: Endurance, Safety Awareness, Transfers Control, Balance, Locomotion, and Self-Care THERAPY NOTES FROM ACUTE CARE: Attached. SPECIAL NEEDS: - Safety Concerns Skin breakdown precautions needed due to skin breakdown risk PATIENT NEEDS ACTIVE AND ONGOING THERAPEUTIC INTERVENTION OF MULTIPLE THERAPY DISCIPLINES, INCLUDING: - Occupational Therapy Evaluate and Treat. - Physical Therapy Evaluate and Treat. PATIENT NEEDS CLOSE MEDICAL SUPERVISION BY A REHABILITATION PHYSICIAN FOR: Bowel and Bladder Management Coordination of Treatment Team Medical and Co-Morbidity Management PATIENT REQUIRES 24X7 REHAB NURSING FOR MEDICAL AND FUNCTIONAL MGT. OF THE FOLLOWING DEFICITS: ADL's Ambulation Bowel and Bladder Management Communication Disease Management Medication Management Patient/Family Education Providing Safe Environment Transfers PATIENT REQUIRES INTENSIVE, COORDINATED INTERDISCIPLINARY APPROACH TO REHAB: Arranging Home Equipment/Services Discharge Planning Family Intervention/Training Automotive Production Worker/Case Management PATIENT REHAB POTENTIAL: Expected level of measurable improvement will be of a practical value to patient's functional capacit y or adaptations to impairments Has a viable Discharge Plan Medically appropriate; condition is sufficiently stable to participate in intensive rehab program Patient is able and expected to receive 3 hours of individualized therapy daily on at least 5 of ever y 7 days Patient's prognosis for significant practical improvement within a reasonable period of time appears Good DISCHARGE PLAN: - Estimated Length of Stay (days) 14. - Consensus on plan Discharge plan has been discussed with primary caregiver. Patient/Family is in agreement with the jeremy n. Primary caregiver is in agreement with the plan. - Patient/Family Goals Return home with assistance. - Planned Living Setting Upon Discharge Home, to live with Family/Relatives. RECOMMENDED CARE LEVEL: IRF RECOMMENDATION DETAILS: Recommended Admission to Comprehensive Rehabilitation Program to Increase Functional Schuyler SCREENER'S COMPLETENESS CONFIRMATION: - Screening Confirmation The patient data collection on this preadmission screening form is finished PHYSICIANS REVIEW AND ADMISSION DETERMINATION Admit - Based on my review of the Pre-Admission Screening results, in my medical judgment and experie nce, I concur with the findings and recommend admission to [facility], as this patient requires an IRF level of care. SIGNATURE PANEL: Clinical Liaison - [electronically] signed by Bebe Sutherland on 01/31/2018 at 10:45 (CDT) Clinical Liaison - [electronically] signed by Jonnathan Mcneil on 01/31/2018 at 11:08 (CDT) Physician Reviewer - [electronically] signed by Dr. Luke Major M.D. on 01/31/2018 at 13:16 (CDT )
--- OUTSIDE RECORDS SUMMARY | 2018-01-31 15:48 | XMS REPORT | Clinical Summary ---
:1945 Author Organization [facility] Address [address] [place] [address] Care Team Providers Name Role Phone Rodolfo [...] Event General Surgery Jeanie Kuhn APRN after 01/30/2017 Family History Medical History Relation Name Comments [...] Procedure Name Priority Date/Time Associated Diagnosis Comments PA AN ELECTIVE Routine 2017 9:09 AM SUPRAGLOTTIC [...] MICROSCOPE Special Needs EST 2HRS, MICROSCOPE after 01/30/2017 Results Potassium, syringe (2017 6:45 AM) Component Value Ref Range Potassium, syringe 4.5 3.5 - 5.0 mEq/L Specimen Performing Laboratory Blood [facility] DEPARTMENT OF PATHOLOGY AND GENOMIC MEDICINE [address] [place] [id number] ECG Pre/Post Op (02/04/2017 5:54 PM) Component Value Ref Range Ventricular rate 62 Atrial rate 62 PA interval 164 QRSD interval 74 QT interval 430 QTC interval 436 P axis 1 65 QRS axis 1 14 T wave axis 27 EKG impression Normal sinus rhythm-Normal ECG-In automated comparison with ECG of 01-MAR-2014 16:03,-Sinus rhythm has replaced Atrial fibrillation-Vent. rate has decreased BY82 BPM-Criteria for Inferior infarct ar e no longer present- Specimen Performing Laboratory [facility] MUSE [address] [place] [id number] Estimated GFR (02/04/2017 5:41 PM) Component Value [...] and Americans. Specimen Performing Laboratory Plasma specimen [facility] DEPARTMENT OF PATHOLOGY AND GENOMIC MEDICINE [address] [place] [id number] CBC hemogram (02/04/2017 5:41 PM) Component Value [...] 0.00 /100 WBC Specimen Performing Laboratory Blood [facility] DEPARTMENT OF PATHOLOGY AND GENOMIC MEDICINE [address] [place] [phone] Basic metabolic panel (02/04/2017 5:41 PM) Component [...] 10.2 mg/dL Specimen Performing Laboratory Plasma specimen [facility] DEPARTMENT OF PATHOLOGY AND GENOMIC MEDICINE [address] [place] [id number] after 01/30/2017 Insurance Payer Benefit Plan / Group Subscriber ID Type Phone Address CORNELIA LOCKE PPO OPEN CHOICE xxxxxxxxx PPO MEDICARE MEDICARE PART A AND B xxxxxxxxxx Medicare [place], [place] [phone] [phone]
[2018-01-31] MEDS ORDERED: FISH OIL PO SCH (18:00)
[2018-01-31] MEDS: GABAPENTIN 300 MG CAP PO SCH (20:19)
[2018-01-31] MEDS: POTASSIUM CL SA 10 MEQ TAB PO SCH (20:20)
[2018-01-31] MEDS: ASCORBIC ACID 500 MG TABLET PO SCH (20:20)
--- NOTE | 2018-02-01 03:48 | FAST ---
SHIFT START DATE/TIME: 01/31/2018 19:00 (CDT) SHIFT END DATE/TIME: 02/01/2018 07:00 (CDT) NAME FRANCE BAUMANN DATE OF : 1945 DATE OF ADMISSION: 01/31/2018 15:46 (CDT) PHONE: AGE: 72 N# [id number] GENDER: Female ENCOUNTER PHYSICIAN: Dr. Luke Major M.D. ADMISSION DIAGNOSIS: - Orthopaedic Disorders 08 - Pelvic Fracture (08.3) pubic ramus fx, humerus fx, hip pain. EATING: Activity did not occur on this shift EATING - SCORE: 0-UNK GROOMING: Activity did not occur on this shift GROOMING - SCORE: 0-UNK BATHING: Activity did not occur on this shift BATHING - SCORE: 0-UNK DRESSING - UPPER BODY: Patient is not dressing in public clothing ARTICLES SCORE Total number of steps: 0 DRESSING - UPPER BODY - SCORE: 0-UNK DRESSING - LOWER BODY: Patient is not dressing in public clothing ARTICLES SCORE Total number of steps: 0 DRESSING - LOWER BODY - SCORE: 0-UNK TOILETING: Activity did not occur on this shift TOILETING - SCORE: 0-UNK BLADDER MANAGEMENT: [place] cares for sifuentes catheter including emptying drainage bag. BLADDER MANAGEMENT - SCORE: 1-DEP BOWEL MANAGEMENT: Activity did not occur on this shift BOWEL MANAGEMENT - SCORE: 7-IND TRANSFERS: BED, CHAIR, WHEELCHAIR: Activity did not occur on this shift TRANSFERS: BED, CHAIR, WHEELCHAIR - SCORE: 0-UNK TRANSFERS: TOILET: Activity did not occur on this shift TRANSFERS: TOILET - SCORE: 0-UNK TRANSFERS: SHOWER: Activity did not occur on this shift TRANSFERS: SHOWER - SCORE: 0-UNK TRANSFERS: TUB: Activity did not occur on this shift TRANSFERS: TUB - SCORE: 0-UNK LOCOMOTION: WALK: Activity did not occur on this shift LOCOMOTION: WALK - SCORE: 0-UNK LOCOMOTION: WHEELCHAIR: Activity did not occur on this shift LOCOMOTION: WHEELCHAIR - SCORE: 0-UNK COMPREHENSION: COMPREHENSION - STEP 1: Does the patient require help to understand complex and abstract ideas (such as current events, finan shea, discharge planning, medical issues, relationships, etc)? No. COMPREHENSION - STEP 2: Does the patient need extra time, require an assistive device (such as glasses, hearing aids, or an a ugmentative communication system), OR does s/he have mild difficulty expressing complex and abstract ideas (including mild dysarthria or mild word-finding problems)? Yes. COMPREHENSION - SCORE: 6-TINO EXPRESSION EXPRESSION - STEP 1: Does the patient require help expressing complex and abstract ideas (such as current events, finances , discharge planning, medical issues, relationships, etc)? No. EXPRESSION - STEP 2: Does the patient need extra time, require an assistive device (such as augmentive communication syste m or a communication board), OR does s/he have mild difficulty expressing complex and abstract ideas (including mild dysarthria or mild word-find problems)? No. EXPRESSION - SCORE: 7-IND SOCIAL INTERACTION: SOCIAL INTERACTION - STEP 1: Does the patient require a helper to interact with others in social and therapeutic situations? No. SOCIAL INTERACTION - STEP 2: Does the patient need extra time in social situations, OR does s/he interact with staff, other patien ts, and family members ONLY in structured environments, OR does s/he require medication for social in teraction? No. SOCIAL INTERACTION - SCORE: 7-IND PROBLEM SOLVING: PROBLEM SOLVING - STEP 1: Does the patient need help to solve complex problems such as managing a checking account or confronti ng interpersonal problems? No. PROBLEM SOLVING - STEP 2: Does the patient require extra time to make decisions or solve problems, OR does s/he have slight dif ficulty reading, initiating, or self-correcting in unfamiliar situations? Yes, patient needs extra ti me. PROBLEM SOLVING - SCORE: 6-TINO MEMORY: MEMORY - STEP 1: Does the patient need help to remember frequently encountered people, daily routines, and executing r equests? No. MEMORY - STEP 2: Does the patient have slight difficulty recognizing frequently encountered people, daily routines, or executing requests without the need for repetition or using self-initiated or environmental cues to remember? Yes. MEMORY - SCORE: 6-TINO SIGNATURE PANEL: The following modified sections: Eating - Score, Grooming - Score, Dressing - Upper Body - Score, Adam ssing - Lower Body - Score, Toileting - Score, Bladder Management - Score, Bowel Management - Score, Transfers: Bed, Chair, Wheelchair - Score, Transfers: Toilet - Score, Transfers: Shower - Score, Jo sfers: Tub - Score, Locomotion: Walk - Score, Locomotion: Wheelchair - Score, Comprehension - Score, Expression - Score, Social Interaction - Score, Problem Solving - Score, Memory - Score were [electro nically] signed by Ellen Canada CNA on TueFeb 01 2018 02:49:50 GMT-0500 (Central Daylight Time)
[2018-02-01 06:51] LABS: Absolute Monocytes 1.4 K/uL (0.1-1.3); Absolute Neutrophil 6.6 K/uL (1.8-8.0); Basophils % 1.2 % (0-1.3); Eosinophils % 3.1 % (0-4.4); Hematocrit 37.9 % (36.0-45.0); Lymphocytes % 19.3 % (15.3-44.8); MCH 27.6 pg (27.0-35.0); MCV 85.4 fL (80-100); MPV 10.4 fL (7.6-11.3); Monocytes % 13.4 % (3.3-12.3); RBC Red Blood Cell Count 4.44 M/uL (3.86-4.86)
[2018-02-01 07:06] LABS: Albumin 3.1 g/dL (3.2-5.5); BUN Blood Urea Nitrogen 10 mg/dL (6-20); Bicarbonate 27 mEq/L (21-31); Glucose Level 126 mg/dL (65-120); Magnesium 1.8 mg/dL (1.8-2.5); Potassium 4.7 mEq/L (3.6-5.0); Prealbumin 10.1 mg/dl (18-38); Sodium Level 140 mEq/L (135-145)
[2018-02-01] MEDS: SPIRONOLACTONE 25 MG TABLET PO SCH (08:08)
[2018-02-01] MEDS: VITAMIN D 5,000 UNIT CAP PO SCH (08:08)
[2018-02-01] MEDS: POTASSIUM CL SA 10 MEQ TAB PO SCH ×2 (08:08→21:14)
[2018-02-01] MEDS: BISOPROLOL 5 MG TABLET PO SCH (08:08)
[2018-02-01] MEDS: CYANOCOBALAMIN 1,000 MCG TAB PO SCH (08:09)
[2018-02-01] MEDS: HYDROCODONE/APAP 7.5/325 MG TAB PO PRN ×3 (08:09→21:14)
[2018-02-01] MEDS: PANTOPRAZOLE 40MG TABLET PO SCH (08:09)
[2018-02-01] MEDS: ASCORBIC ACID 500 MG TABLET PO SCH ×2 (08:11→21:14)
[2018-02-01] MEDS: GABAPENTIN 300 MG CAP PO SCH ×3 (08:11→21:14)
[2018-02-01] MEDS: ASPIRIN EC 81 MG TAB PO SCH (08:21)
--- NOTE | 2018-02-01 11:54 | FAST ---
SHIFT START DATE/TIME: 02/01/2018 07:00 (CDT) SHIFT END DATE/TIME: 02/01/2018 19:00 (CDT) NAME FRANCE BAUMANN DATE OF : 1945 DATE OF ADMISSION: 01/31/2018 15:46 (CDT) PHONE: AGE: 72 N# [id number] GENDER: Female ENCOUNTER PHYSICIAN: Dr. Luke Major M.D. ADMISSION DIAGNOSIS: - Orthopaedic Disorders 08 - Pelvic Fracture (08.3) pubic ramus fx, humerus fx, hip pain. EATING: EATING - STEP 1: Does the patient require assistance when eating? Yes. EATING - STEP 2: Does the patient require the assistance of a helper? No, patient only requires an assistive device, O R s/he takes more than reasonable time to eat, OR there is a safety concern, OR s/he requires modifie d food consistency EATING - SCORE: 6-TINO GROOMING: Activity did not occur on this shift GROOMING - SCORE: 0-UNK BATHING: Activity did not occur on this shift BATHING - SCORE: 0-UNK BATHING - COMMENTS: BATHED WITH OT DRESSING - UPPER BODY: Activity did not occur on this shift ARTICLES SCORE Total number of steps: 0 DRESSING - UPPER BODY - SCORE: 0-UNK DRESSING - UPPER BODY - COMMENTS: DRESSED WITH OT DRESSING - LOWER BODY: Activity did not occur on this shift ARTICLES SCORE Total number of steps: 0 DRESSING - LOWER BODY - SCORE: 0-UNK DRESSING - LOWER BODY - COMMENTS: Dressed with OT TOILETING: TOILETING - STEP 1: Does the patient require assistance with toileting? Yes. TOILETING - STEP 2: Does the patient require the assistance of a helper? Yes. TOILETING - STEP 3: How much assistance does the patient require from the helper? Hands-on assistance from the helper TOILETING - STEP 4: Of the 3 tasks: 1) Adjusting clothing prior to use, 2) Cleansing of perineal area, 3) Adjusting clot feroz after use; How many tasks does the patient perform WITHOUT assistance of the helper? Two tasks TOILETING - SCORE: 3-MOD BLADDER MANAGEMENT: [place] cares for sifuentes catheter including emptying drainage bag. BLADDER MANAGEMENT - SCORE: 1-DEP BOWEL MANAGEMENT: Activity did not occur on this shift BOWEL MANAGEMENT - SCORE: 7-IND TRANSFERS: BED, CHAIR, WHEELCHAIR: TRANSFERS: BED, CHAIR, WHEELCHAIR - STEP 1: Does the patient require assistance with bed, chair, or wheelchair transfers? Yes. TRANSFERS: BED, CHAIR, WHEELCHAIR - STEP 2: Does the patient require the assistance of a helper? Yes. TRANSFERS: BED, CHAIR, WHEELCHAIR - STEP 3: How much assistance does the patient require from the helper? Lifting of the legs TRANSFERS: BED, CHAIR, WHEELCHAIR - STEP 4: How many legs does the patient require the helper to lift? both legs TRANSFERS: BED, CHAIR, WHEELCHAIR - SCORE: 3-MOD TRANSFERS: TOILET: TRANSFERS: TOILET - STEP 1: Does the patient require assistance with toilet transfers? Yes. TRANSFERS: TOILET - STEP 2: Does the patient require the assistance of a helper? Yes. TRANSFERS: TOILET - STEP 3: How much assistance does the patient require from the helper? Patient performs half or more of the tr ansferring tasks TRANSFERS: TOILET - STEP 4: Does the patient need only incidental help such as contact guard or steadying during toilet transfer? No. Patient needs more than incidental help TRANSFERS: TOILET - SCORE: 3-MOD TRANSFERS: SHOWER: Activity did not occur on this shift TRANSFERS: SHOWER - SCORE: 0-UNK TRANSFERS: TUB: Activity did not occur on this shift TRANSFERS: TUB - SCORE: 0-UNK LOCOMOTION: WALK: Activity did not occur on this shift LOCOMOTION: WALK - SCORE: 0-UNK LOCOMOTION: WHEELCHAIR: Activity did not occur on this shift LOCOMOTION: WHEELCHAIR - SCORE: 0-UNK COMPREHENSION: COMPREHENSION - SCORE: 0-UNK EXPRESSION EXPRESSION - SCORE: 0-UNK SOCIAL INTERACTION: SOCIAL INTERACTION - SCORE: 0-UNK PROBLEM SOLVING: PROBLEM SOLVING - SCORE: 0-UNK MEMORY: MEMORY - SCORE: 0-UNK SIGNATURE PANEL: The following modified sections: Eating - Score, Grooming - Score, Bathing - Score, Bathing - Comment s:, Dressing - Upper Body - Score, Dressing - Upper Body - Comments:, Dressing - Lower Body - Score, Dressing - Lower Body - Comments:, Toileting - Score, Bladder Management - Score, Bowel Management - Score, Transfers: Bed, Chair, Wheelchair - Score, Transfers: Toilet - Score, Transfers: Shower - Scor e, Transfers: Tub - Score, Locomotion: Walk - Score, Locomotion: Wheelchair - Score, Comprehension - Score, Expression - Score, Social Interaction - Score, Problem Solving - Score, Memory - Score were [ electronically] signed by Aayush Reeves on TueFeb 01 2018 10:56:00 GMT-0500 (Central Daylight Time)
[2018-02-01] MEDS ORDERED: MAGNES/ALUMIN/SIMET 30ML UCUP PO ONE (13:06)
--- NOTE | 2018-02-01 16:58 | FAST ---
ENCOUNTER DATE AND TIME: 02/01/2018 08:00 (CDT) NAME FRANCE BAUMANN DATE OF : 1945 DATE OF ADMISSION: 01/31/2018 15:46 (CDT) PHONE: AGE: 72 N# [id number] GENDER: Female ENCOUNTER PHYSICIAN: Dr. Luke Major M.D. ADMISSION DIAGNOSIS: - Orthopaedic Disorders 08 - Pelvic Fracture (08.3) pubic ramus fx, humerus fx, hip pain. EATING: Activity did not occur on this shift EATING - SCORE: 0-UNK GROOMING: Activity did not occur on this shift GROOMING - SCORE: 0-UNK BATHING: Activity did not occur on this shift BATHING - SCORE: 0-UNK DRESSING - UPPER BODY: Activity did not occur on this shift Patient is not dressing in public clothing ARTICLES SCORE Total number of steps: 0 DRESSING - UPPER BODY - SCORE: 0-UNK DRESSING - LOWER BODY: Activity did not occur on this shift Patient is not dressing in public clothing ARTICLES SCORE Total number of steps: 0 DRESSING - LOWER BODY - SCORE: 0-UNK TOILETING: Activity did not occur on this shift TOILETING - SCORE: 0-UNK BLADDER MANAGEMENT: Activity did not occur on this shift BLADDER MANAGEMENT - SCORE: 7-IND BOWEL MANAGEMENT: Activity did not occur on this shift BOWEL MANAGEMENT - SCORE: 7-IND TRANSFERS: BED, CHAIR, WHEELCHAIR: TRANSFERS: BED, CHAIR, WHEELCHAIR - STEP 1: Does the patient require assistance with bed, chair, or wheelchair transfers? Yes. TRANSFERS: BED, CHAIR, WHEELCHAIR - STEP 2: Does the patient require the assistance of a helper? Yes. TRANSFERS: BED, CHAIR, WHEELCHAIR - STEP 3: How much assistance does the patient require from the helper? Lifting of the patient TRANSFERS: BED, CHAIR, WHEELCHAIR - STEP 4: Does the helper lift the patient ONLY up? ONLY down? Up AND Down? Up AND Down. TRANSFERS: BED, CHAIR, WHEELCHAIR - SCORE: 2-MAX TRANSFERS: TOILET: Activity did not occur on this shift TRANSFERS: TOILET - SCORE: 0-UNK TRANSFERS: SHOWER: Activity did not occur on this shift TRANSFERS: SHOWER - SCORE: 0-UNK TRANSFERS: TUB: Activity did not occur on this shift TRANSFERS: TUB - SCORE: 0-UNK LOCOMOTION: WALK: Patient walks less than 50 feet LOCOMOTION: WALK - SCORE: 1-DEP LOCOMOTION: WHEELCHAIR: Patient propels wheelchair less than 50 ft LOCOMOTION: WHEELCHAIR - SCORE: 1-DEP LOCOMOTION: STAIRS: Activity did not occur on this shift LOCOMOTION: STAIRS - SCORE: 0-UNK COMPREHENSION: COMPREHENSION - SCORE: 0-UNK EXPRESSION EXPRESSION - SCORE: 0-UNK SOCIAL INTERACTION: SOCIAL INTERACTION - SCORE: 0-UNK PROBLEM SOLVING: PROBLEM SOLVING - SCORE: 0-UNK MEMORY: MEMORY - SCORE: 0-UNK SIGNATURE PANEL: The following modified sections: Transfers: Bed, Chair, Wheelchair - Score, Transfers: Toilet - Score , Locomotion: Walk - Score, Locomotion: Wheelchair - Score, Locomotion: Stairs - Score were [electron ically] signed by Josh Cortes PT on TueFeb 01 2018 16:00:18 GMT-0500 (Central Daylight Time)
--- NOTE | 2018-02-01 18:21 | R.HP ---
FACILITY: [facility] ENCOUNTER DATE AND TIME: 02/01/2018 17:00 (CDT) MR#: [id number] NAME FRANCE BAUMANN ADDRESS: [address] [place] [address]: [place] [address] [id number] PHONE: DATE OF : 1945 AGE: 72 SSN# [id number] GENDER: Female DEXTERITY Right-handed MARITAL STATUS Unknown RACE White PRE-HOSPITAL LIVING SETTING 01 - Home (private home/apt. board/care, assisted living, prison, transitional living) PRE-HOSPITAL LIVING WITH Family/Relatives ENCOUNTER PHYSICIAN: Dr. Luke Major M.D. REFERRING DOCTOR: ABDOULAYE FRANCOIS DATE OF ADMISSION: 01/31/2018 15:46 (CDT) REFERRING FACILITY [facility] HOME TYPE AND DETAILS: Type of home: single family house # of steps within the residence: 0 # of steps to enter the residence: 0 # of levels in the residence: 1 ADMISSION DIAGNOSIS: pubic ramus fx, humerus fx, hip pain ONSET DATE: 01/29/2018 PRIMARY DIAGNOSIS-RELATED SURGERIES: No surgeries related to the primary diagnosis were performed. SECONDARY/COMORBID DIAGNOSES (TIERED): - N/A osteopenia hypertension HISTORY OF PRESENT ILLNESS (HPI): Pt. is a 72 yo Right-handed white female. On 01/29/2018 she was admitted to [facility] with diagnosis pubic ramus fx, hum erus fx, hip pain. Her impairment category is Orthopaedic Disorders 08 - Pelvic Fracture (08.3). Pre-morbidly, Pt. was independent/mod-I in Sphincter Control, Transfers Control, Communication, Socia l Cognition, Self-Care, and Locomotion; and she had good Sphincter Control. Currently, she has deficits of Endurance, Safety Awareness, Transfers Control, Balance, Locomotion, a nd Self-Care. Pt. is now referred to [facility] for acute in-patient rehabilitation in order to maximize patient's functional independence in activities of daily living, strength, ROM, and mobi lity. Patient has realistic goal of being discharged at assistance level 6-Candy to reside at Home with Fam brian/Relatives. MEDICATION ALLERGIES: amoxicillin CODEINE ibuprofen etodolac annaprox ENVIRONMENTAL ALLERGIES: - Substance Allergies None Known - Other Allergies None Known PAST MEDICAL HISTORY: hypertension osteopenia FAMILY HISTORY: Family history is not contributory. SOCIAL HISTORY: - Home Living Family/Relatives REVIEW OF SYSTEMS: - Gen No Chills No Fatigue No Fever - Eyes No Double Vision No itchiness - ENMT No Difficulty Swallowing - CVS No Chest Discomfort No Chest Pain No Fatigue No Weight Gain - Resp No Cough No Shortness of Breath - GI Continent No Abdominal Pain No Constipation No Diarrhea - Continent No Kidney Pain No Painful Urination No Urinary Urgency - MSK No Joint Pain No Muscle Cramps No Stiffness - Skin No Itching No Rash No Suspicious Lesions - Neuro No Coordination Difficulty No Difficulty with Concentration No Memory Loss No Seizures No Weakness - Psych No Anxiety No Depression No HIV Exposure No Persistent Infections No Seasonal Allergies - Endo No Cold/Heat Intolerance No Excessive Hunger No Excessive Thirst No Excessive Urination PHYSICAL EXAM - Gen Alert and awake Lying in bed No apparent distress Oriented to: person, time, and place - Skin No skin breakdown. Normacephalic - Eyes No abnormalities - ENMT No abnormalities - Neck No abnormalities - CVS RRR - Chest Clear - Abd Soft - GI Non distended Deferred - No abnormalities - Ext No significant edema - MSK 4/5 weakness in both lower extremities. - Neuro 4/5 strength bilaterally lower extremities. - Psych No abnormalities VITAL SIGNS Temperature: 97.8 F SBP/DBP: 147/68 Pulse: 79 Resp: 18 Vital signs stable, afebrile NURSING: - Shower allowing shower - Skin care per protocol ACTIVITIES OOB only with supervision FUNCTIONAL STATUS: - Self-Care A. Eating Ind Ind B. Grooming Ind Ind C. Bathing Ind Ind D. Dressing - Upper Ind Ind E. Dressing - Lower Ind maxA F. Toileting Ind maxA - Sphincter Control G: Bladder control Ind Ind H: Bowel control Ind Ind - Transfers Control I. Bed/Chair/Wheelchair Ind maxA J. Toilet Ind maxA K. Tub/Shower Ind maxA - Locomotion L. Walk/Wheelchair (B) Ind Dep M. Stairs Ind ADNO - Communication N. Comprehension (B) Ind Ind O. Expression (B) Ind Ind - Social Cognition P. Social Interaction Ind Ind Q. Problem Solving Ind Ind R. Memory Ind Ind - Endurance Poor - Balance Poor - Safety Awareness Poor CURRENT FUNC. DEFICITS: Endurance, Safety Awareness, Transfers Control, Balance, Locomotion, and Self-Care ASSESSMENT: Pt. is a 72 yo Right-handed white female.On 01/29/2018 she was admitted to [facility] with diagnosis pubic ramus fx, humerus fx, hip pain.Her impairment category is Orthopaedic Dis orders 08 - Pelvic Fracture (08.3).Pre-morbidly, Pt. was independent/mod-I in Sphincter Control, Tra nsfers Control, Communication, Social Cognition, Self-Care, and Locomotion; and she had good Sphincte r Control.Currently, she has deficits of Endurance, Safety Awareness, Transfers Control, Balance, Loc omotion, and Self-Care.Pt. is now referred to [facility] for acute in-patient rehabilitation in order to maximize patient's functional independence in activities of daily living, strength, ROM, and mobility.- Rehab Goal Patient has realistic goal of being discharged at assistance level 6-Candy to reside at Home with Fam brian/Relatives. REHAB PLAN: - Physical Therapy Decreased range of motion - to improve, our physical therapists will perform initial evaluation of pt 's status upon admission and devise an individualized program for increasing patient's Range of Motio n. Gait dysfunction - to improve, our physical therapists will perform initial evaluation of pt's status upon admission and devise an individualized program for Gait Training, and Wheel Chair mobility Inability to transfer - to improve, our physical therapists will perform initial evaluation of pt's s tatus upon admission and devise an individualized program for Bed mobility Need for home safety evaluation - to improve, our physical therapists will perform initial evaluation of pt's status upon admission and devise an individualized program for Home Evaluation Need in caregiver upon discharge - to improve, our physical therapists will perform initial evaluatio n of pt's status upon admission and devise an individualized program for Caregiver Training New precaution - to improve, our physical therapists will perform initial evaluation of pt's status u riki admission and devise an individualized program for Patient precaution education Edema - to improve, our physical therapists will perform initial evaluation of pt's status upon admi ssion and devise an individualized program for Elevation Training, and Lymphedema Therapy Poor balance - to improve, our physical therapists will perform initial evaluation of pt's status upo n admission and devise an individualized program for Balance Training Poor endurance - to improve, our physical therapists will perform initial evaluation of pt's status u riki admission and devise an individualized program for Endurance Training Weakness - to improve, our physical therapists will perform initial evaluation of pt's status upon ad mission and devise an individualized program for Aquatic Therapy, Neuromuscular Reeducation, and Stre ngthening Achieving independence - to improve, our physical therapists will perform initial evaluation of pt's status upon admission and devise an individualized program for Community Reintegration Activities - Occupational Therapy ADL deficits - to improve, our occupation therapists will perform initial evaluation of pt's status u riki admission and devise an individualized program for Bathing, Bed mobility, Community Reintegration , Cooking, Dressing, Eating, Fine Motor Skills, Grooming, Homemaking, Kitchen Mobility, Laundry, Angie ent Education, Safety Awareness, Splinting - Positioning, Transfers(Toilet, Tub, Shower), and Wheel C hair Management Need for healthcare or medical - to improve, our occupation therapists will perform initial evaluation of pt's s tatus upon admission and devise an individualized program for Caregiver Training Weakness - to improve, our occupation therapists will perform initial evaluation of pt's status upon admission and devise an individualized program for Aquatic Therapy, Balance, Endurance, UE ROM, and U E strengthening MEDICAL PLAN: - Diet Type Start Regular - Diet - Liquid Texture Start Regular - Tube Feed Start N/A - Skin care per protocol - Diet - Solid Texture Regular - Shower shower DISCHARGE PLAN: - Estimated Length of Stay (days) 14. - Consensus on plan Discharge plan has been discussed with primary caregiver. Patient/Family is in agreement with the jeremy n. Primary caregiver is in agreement with the plan. - Patient/Family Goals Return home with assistance. - Planned Living Setting Upon Discharge Home, to live with Family/Relatives. SIGNATURE PANEL: (CDT)
--- NOTE | 2018-02-01 18:22 | PAPE ---
PATIENT: [facility] MR# [id number] REFERRING DOCTOR ABDOULAYE FRANCOIS EVALUATION DATE AND TIME 02/01/2018 17:22 (CDT) NAME FRANCE BAUMANN DATE OF 1945 AGE 72 PHONE N# [id number] GENDER female EVALUATING PHYSICIAN Dr. Luke Major M.D. ADMISSION DIAGNOSIS: pubic ramus fx, humerus fx, hip pain ONSET DATE 01/29/2018 SECONDARY/COMORBID DIAGNOSES TIERED: - N/A osteopenia hypertension POST-ADMISSION FUNCTIONAL/MEDICAL STATUS: - Bladder Same accident frequency: Ind - No accidents in the past 7 days - Bowel Same accident frequency: Ind - No accidents in the past 7 days - Walking Same score based on distance walked: 1(<=50ft) STATUS CHANGE EVALUATION: No change in Functional or Medical Status is identified compared with Pre-Admission screening. PATIENT NEEDS CLOSE MEDICAL SUPERVISION BY A REHABILITATION PHYSICIAN FOR: Bowel and Bladder Management Coordination of Treatment Team Medical and Co-Morbidity Management PATIENT REQUIRES 24X7 REHAB NURSING FOR MEDICAL AND FUNCTIONAL MGT. OF THE FOLLOWING DEFICITS: ADL's Ambulation Bowel and Bladder Management Communication Disease Management Medication Management Patient/Family Education Providing Safe Environment Transfers PATIENT REQUIRES INTENSIVE, COORDINATED INTERDISCIPLINARY APPROACH TO REHAB: Arranging Home Equipment/Services Discharge Planning Family Intervention/Training Audio Production Engineer/Case Management LIST OF IDENTIFIED AND POTENTIAL PROBLEMS: Alteration in leisure activities Bladder, Incontinence Blood Pressure, Hypertension/hypotension Issues Bowel, Incontinence Infection, Actual or Potential Mobility Impaired Pain, Alteration in Comfort Self Care Deficit Skin Integrity, Actual or Potential Urinary Tract Infection (UTI), Actual or Potential RISK FOR COMPLICATIONS - Hypertension CVA. Hypotension. MD. TIA. INTERVENTIONS - Hypertension PATIENT COULD BE AT RISK FOR COMPLICATIONS FROM ADVERSE MEDICAL CONDITIONS DUE TO HIS/HER COMORBIDITI ES AND THE RIGORS OF THE INTENSIVE REHABILLITATION PROGRAM. METHODS OR INTERVENTIONS TO AVOID COMPLIC ATIONS INCLUDE: - Infection Clinical staff to assess and manage the signs and symptoms of infection including fever, redness, war mth, etc. - Urinary Tract Infection - Falls Patient will be evaluated for Fall Precautions and will be placed on Fall Precautions as indicated pe r protocol. - Skin Breakdown Nursing will assess skin daily using assessment tool and will place on Skin Breakdown Precautions as indicated per protocol. - Pain Clinical staff may employ non-medication methods such as massage, distraction, decrease stimulus, etc . as needed. Clinical staff will assess patient's pain level every shift per protocol to assess and e nsure pain management effectiveness. Medications will be given and the pain level re-assessed. PRELIMINARY PLAN OF CARE: - Physical Therapy Patient needs Physical Therapy for a daily minimum of 1.5 hours at least 5 out of 7 days, to improve: Mobility, Strengthening, Transfers, Stretching, ROM, Endurance, Ability to manage stairs, Gait, and Balance. - Rehabilitation Nursing Patient requires 24x7 Rehabilitation Nursing for: Pain Issues, Identifying and preventing risk factor s, Monitoring and reporting current medical conditions, Assisting with ambulation and transfer, Yovana ting with all ADL-s, Teaching patients about disease process and medications, Family teaching, Provid ing safe environment, Bowel and Bladder Issues, Skin Integrity, and Medication Management. Patient needs Audio Production Engineer and/or Case Management for: Discharge Planning, Arranging Home Equipmen t or Services, and Family Interventions. - Dietary and Nutrition Services Patient needs Dietary and Nutrition Services for: Adequate Nutrition, Nutritional Supplements, and Nu tritional Education. - Occupational Therapy Patient needs Occupational Therapy for a daily minimum of 1.5 hours at least 5 out of 7 days, to impr ove Activities of Daily Living, including: Eating, Grooming, Bathing, Dressing, Toileting, Toilet Tra nsfers, Community Reintegration, Higher functional activities, Adaptive Equipment, Splinting, Househo ld Tasks, and Other activities as determined. POTENTIAL FUNCTIONAL GOALS FOR PATIENT TO ACHIEVE BY DISCHARGE: - Safety Precaution Patient will remain free from falls or injury at time of discharge. - Bed Mobility Patient will perform bed mobility at 4-Nelson level of assistance. - Transfers Patient will complete transfers from bed to chair at 4-Nelson level of assistance. - Mobility Patient will ambulate 150 ft with 4-Nelson level of assistance with RW. PATIENT REHAB POTENTIAL Expected level of measurable improvement will be of a practical value to patient's functional capacit y or adaptations to impairments Has a viable Discharge Plan Medically appropriate; condition is sufficiently stable to participate in intensive rehab program Patient is able and expected to receive 3 hours of individualized therapy daily on at least 5 of ever y 7 days Patient's prognosis for significant practical improvement within a reasonable period of time appears Good DISCHARGE PLAN: - Estimated Length of Stay (days) 14. - Consensus on plan Discharge plan has been discussed with primary caregiver. Patient/Family is in agreement with the jeremy n. Primary caregiver is in agreement with the plan. - Patient/Family Goals Return home with assistance. - Planned Living Setting Upon Discharge Home, to live with Family/Relatives. CONCLUSION ON REHABILITATION NECESSITY: I have evaluated patient's pre-admission functional status and, comparing it to the patient's post-ad mission functional status now, I conclude that the pre-admission assessment was accurate. Patient's c ondition on admission supports the medical necessity of admission to IRF. It is safe to proceed with patient's therapy program. SIGNATURE PANEL: (CDT)
[2018-02-01] MEDS: TRIAMCINOLONE 0.1% OINT 15 GM TOP SCH (21:13)
--- NOTE | 2018-02-01 21:43 | P.PN ---
Subjective Date of Service: 02/01/18 Chief Complaint: CONSTIPATED FROM MEDS Subjective: C/O voiced Review of Systems 10-point ROS is otherwise unremarkable Physical Examination - Vital Signs Temperature: 97.8 F Blood Pressure: 147/68 Pulse: 79 Respirations: 18 Pulse Ox (%): 97 - Physical Exam General: Mild distress HEENT: Atraumatic, PERRLA, EOMI Neck: Supple, JVD not distended Respiratory: Clear to auscultation bilaterally, Normal air movement Cardiovascular: Regular rate/rhythm, Normal S1 S2 Gastrointestinal: Normal bowel sounds, No tenderness Musculoskeletal: No tenderness Integumentary: No rashes Neurological: Normal speech, Normal tone, Normal affect Lymphatics: No axilla or inguinal lymphadenopathy - Studies Laboratory Data (last 24 hrs) 02/01/18 06:25: Sodium 140, Potassium 4.7 D, BUN 10, Creatinine 0.62, Glucose 126 H, Magnesium 1.8 02/01/18 06:25: WBC 10.5, Hgb 12.2, Hct 37.9, Plt Count 174 Medications List Reviewed: Yes Assessment And Plan - Current Problems (Diagnosis) (1) Constipation Current Visit: Yes Status: Acute Plan: MOM AND MIRALAX STOP NORCO START TRAMADOL (2) Hypokalemia Current Visit: Yes Status: Acute (3) Pubic ramus fracture Current Visit: No Status: Acute Plan: FU PT PAIN MX HEALING IN TWO MNTHS. Qualifiers: Encounter type: subsequent encounter Fracture type: closed Laterality: right Fracture healing: with routine healing Qualified Code(s): S32.591D - Other specified fracture of right pubis, subsequent encounter for fracture with routine healing - Code Status/Comfort Care Code Status Assessed: Yes Code Status: Full Code Critical Care: No
--- NOTE | 2018-02-02 03:00 | FAST ---
SHIFT START DATE/TIME: 02/01/2018 19:00 (CDT) SHIFT END DATE/TIME: 02/02/2018 07:00 (CDT) NAME FRANCE BAUMANN DATE OF : 1945 DATE OF ADMISSION: 01/31/2018 15:46 (CDT) PHONE: AGE: 72 N# [id number] GENDER: Female ENCOUNTER PHYSICIAN: Dr. Luke Major M.D. ADMISSION DIAGNOSIS: - Orthopaedic Disorders 08 - Pelvic Fracture (08.3) pubic ramus fx, humerus fx, hip pain. EATING: Activity did not occur on this shift EATING - SCORE: 0-UNK GROOMING: Wash, rinse, and dry face Wash, rinse, and dry hands GROOMING - STEP 1: Does the patient require assistance when grooming? Yes. GROOMING - STEP 2: Does the patient require the assistance of a helper? Yes. GROOMING - STEP 3: How much assistance does the patient require from the helper? Cuing, coaxing, instructions, or encour agement for completion of grooming GROOMING - SCORE: 5-SUP BATHING: Activity did not occur on this shift BATHING - SCORE: 0-UNK DRESSING - UPPER BODY: Patient is not dressing in public clothing ARTICLES SCORE Total number of steps: 0 DRESSING - UPPER BODY - SCORE: 0-UNK DRESSING - LOWER BODY: Patient is not dressing in public clothing ARTICLES SCORE Total number of steps: 0 DRESSING - LOWER BODY - SCORE: 0-UNK TOILETING: TOILETING - STEP 1: Does the patient require assistance with toileting? Yes. TOILETING - STEP 2: Does the patient require the assistance of a helper? Yes. TOILETING - STEP 3: How much assistance does the patient require from the helper? Hands-on assistance from the helper TOILETING - STEP 4: Of the 3 tasks: 1) Adjusting clothing prior to use, 2) Cleansing of perineal area, 3) Adjusting clot feroz after use; How many tasks does the patient perform WITHOUT assistance of the helper? No tasks; h savannah performs all three tasks TOILETING - SCORE: 1-DEP BLADDER MANAGEMENT: BLADDER MANAGEMENT - STEP 1: Does the patient control the bladder completely and intentionally without equipment or devices or med ications, and is always continent? No. BLADDER MANAGEMENT - STEP 2: Does the patient require the assistance of a helper? Yes. BLADDER MANAGEMENT - STEP 3: How much assistance does the patient require from the helper? Patient requires contact assistance fro m the helper BLADDER MANAGEMENT - STEP 4: How much contact assistance does the patient require from the helper? Patient requires moderate shelley tance, and performs 50% to 75% of bladder management tasks - Melissa positions AND holds urinal or bed garay BLADDER MANAGEMENT - SCORE: 3-MOD BOWEL MANAGEMENT: Activity did not occur on this shift BOWEL MANAGEMENT - SCORE: 7-IND TRANSFERS: BED, CHAIR, WHEELCHAIR: TRANSFERS: BED, CHAIR, WHEELCHAIR - STEP 1: Does the patient require assistance with bed, chair, or wheelchair transfers? Yes. TRANSFERS: BED, CHAIR, WHEELCHAIR - STEP 2: Does the patient require the assistance of a helper? Yes. TRANSFERS: BED, CHAIR, WHEELCHAIR - STEP 3: How much assistance does the patient require from the helper? Lifting of the patient TRANSFERS: BED, CHAIR, WHEELCHAIR - STEP 4: Does the helper lift the patient ONLY up? ONLY down? Up AND Down? ONLY up. TRANSFERS: BED, CHAIR, WHEELCHAIR - SCORE: 3-MOD TRANSFERS: TOILET: TRANSFERS: TOILET - STEP 1: Does the patient require assistance with toilet transfers? Yes. TRANSFERS: TOILET - STEP 2: Does the patient require the assistance of a helper? Yes. TRANSFERS: TOILET - STEP 3: How much assistance does the patient require from the helper? Patient performs less than half of the transferring tasks TRANSFERS: TOILET - STEP 4: Does the patient require total assistance for the toilet transfer such as the helper doing basically all the lifting? No. TRANSFERS: TOILET - SCORE: 2-MAX TRANSFERS: SHOWER: Activity did not occur on this shift TRANSFERS: SHOWER - SCORE: 0-UNK TRANSFERS: TUB: Activity did not occur on this shift TRANSFERS: TUB - SCORE: 0-UNK LOCOMOTION: WALK: Activity did not occur on this shift LOCOMOTION: WALK - SCORE: 0-UNK LOCOMOTION: WHEELCHAIR: Activity did not occur on this shift LOCOMOTION: WHEELCHAIR - SCORE: 0-UNK COMPREHENSION: COMPREHENSION - STEP 1: Does the patient require help to understand complex and abstract ideas (such as current events, finan shea, discharge planning, medical issues, relationships, etc)? No. COMPREHENSION - STEP 2: Does the patient need extra time, require an assistive device (such as glasses, hearing aids, or an a ugmentative communication system), OR does s/he have mild difficulty expressing complex and abstract ideas (including mild dysarthria or mild word-finding problems)? Yes. COMPREHENSION - SCORE: 6-TINO EXPRESSION EXPRESSION - STEP 1: Does the patient require help expressing complex and abstract ideas (such as current events, finances , discharge planning, medical issues, relationships, etc)? No. EXPRESSION - STEP 2: Does the patient need extra time, require an assistive device (such as augmentive communication syste m or a communication board), OR does s/he have mild difficulty expressing complex and abstract ideas (including mild dysarthria or mild word-find problems)? No. EXPRESSION - SCORE: 7-IND SOCIAL INTERACTION: SOCIAL INTERACTION - STEP 1: Does the patient require a helper to interact with others in social and therapeutic situations? No. SOCIAL INTERACTION - STEP 2: Does the patient need extra time in social situations, OR does s/he interact with staff, other patien ts, and family members ONLY in structured environments, OR does s/he require medication for social in teraction? Yes, patient needs extra time SOCIAL INTERACTION - SCORE: 6-TINO PROBLEM SOLVING: PROBLEM SOLVING - STEP 1: Does the patient need help to solve complex problems such as managing a checking account or confronti ng interpersonal problems? No. PROBLEM SOLVING - STEP 2: Does the patient require extra time to make decisions or solve problems, OR does s/he have slight dif ficulty reading, initiating, or self-correcting in unfamiliar situations? Yes, patient needs extra ti me. PROBLEM SOLVING - SCORE: 6-TINO MEMORY: MEMORY - STEP 1: Does the patient need help to remember frequently encountered people, daily routines, and executing r equests? No. MEMORY - STEP 2: Does the patient have slight difficulty recognizing frequently encountered people, daily routines, or executing requests without the need for repetition or using self-initiated or environmental cues to remember? Yes. MEMORY - SCORE: 6-TINO SIGNATURE PANEL: The following modified sections: Eating - Score, Grooming - Score, Dressing - Upper Body - Score, Adam ssing - Lower Body - Score, Toileting - Score, Bladder Management - Score, Bowel Management - Score, Transfers: Bed, Chair, Wheelchair - Score, Transfers: Toilet - Score, Transfers: Shower - Score, Jo sfers: Tub - Score, Locomotion: Walk - Score, Locomotion: Wheelchair - Score, Comprehension - Score, Expression - Score, Social Interaction - Score, Problem Solving - Score, Memory - Score were [electro nically] signed by Ellen Canada CNA on TueFeb 02 2018 02:01:25 GMT-0500 (Central Daylight Time)
[2018-02-02] MEDS: HYDROCODONE/APAP 7.5/325 MG TAB PO PRN (06:53)
[2018-02-02] MEDS: POTASSIUM CL SA 10 MEQ TAB PO SCH ×3 (08:00→20:00)
[2018-02-02] MEDS: ONDANSETRON 4 MG (ODT) TAB PO PRN (09:06)
[2018-02-02] MEDS: TRIAMCINOLONE 0.1% OINT 15 GM TOP SCH ×2 (09:07→20:50)
[2018-02-02] MEDS: ASPIRIN EC 81 MG TAB PO SCH (09:07)
[2018-02-02] MEDS: SPIRONOLACTONE 25 MG TABLET PO SCH (09:08)
[2018-02-02] MEDS: CYANOCOBALAMIN 1,000 MCG TAB PO SCH (09:08)
[2018-02-02] MEDS: VITAMIN D 5,000 UNIT CAP PO SCH (09:08)
[2018-02-02] MEDS: GABAPENTIN 300 MG CAP PO SCH ×3 (09:09→20:49)
[2018-02-02] MEDS: BISOPROLOL 5 MG TABLET PO SCH (09:09)
[2018-02-02] MEDS: PANTOPRAZOLE 40MG TABLET PO SCH (09:09)
[2018-02-02] MEDS: ASCORBIC ACID 500 MG TABLET PO SCH ×2 (09:09→20:50)
--- NOTE | 2018-02-02 11:26 | FAST ---
SHIFT START DATE/TIME: 02/02/2018 07:00 (CDT) SHIFT END DATE/TIME: 02/02/2018 19:00 (CDT) NAME FRANCE BAUMANN DATE OF : 1945 DATE OF ADMISSION: 01/31/2018 15:46 (CDT) PHONE: AGE: 72 N# [id number] GENDER: Female ENCOUNTER PHYSICIAN: Dr. Luke Major M.D. ADMISSION DIAGNOSIS: - Orthopaedic Disorders 08 - Pelvic Fracture (08.3) pubic ramus fx, humerus fx, hip pain. EATING: EATING - STEP 1: Does the patient require assistance when eating? Yes. EATING - STEP 2: Does the patient require the assistance of a helper? Yes. EATING - STEP 3: Does the patient perform half or more of the eating tasks? Yes. EATING - STEP 4: Does the patient need only supervision, cuing, coaxing OR help to apply an orthosis OR help to cut fo od, open containers, pour liquids, or butter bread? Yes. EATING - SCORE: 5-SUP GROOMING: Comb/brush hair Oral care Wash, rinse, and dry face Wash, rinse, and dry hands GROOMING - STEP 1: Does the patient require assistance when grooming? Yes. GROOMING - STEP 2: Does the patient require the assistance of a helper? Yes. GROOMING - STEP 3: How much assistance does the patient require from the helper? Incidental touching assistance from the helper while grooming GROOMING - SCORE: 4-MIN BATHING: Activity did not occur on this shift BATHING - SCORE: 0-UNK DRESSING - UPPER BODY: T-shirt/pullover shirt (four steps) ARTICLES SCORE Total number of steps: 4 DRESSING - UPPER BODY - STEP 1: Does the patient require help when dressing above the waist? Yes. DRESSING - UPPER BODY - STEP 2: Does the patient require the assistance of a helper? Yes. DRESSING - UPPER BODY - STEP 3: Does the helper touch the patient while dressing? Yes. DRESSING - UPPER BODY - STEP 4: How many of the total steps does the patient complete on his/her own? 1 DRESSING - UPPER BODY - STEP 5: Does Patient require total assistance for dressing above the waist such as the helper holding clothin g and performing basically all the activities? No. DRESSING - UPPER BODY - SCORE: 2-MAX DRESSING - LOWER BODY: Elastic waist pants (three steps) Sock - Left foot (one step) Sock - Right foot (one step) Underwear (three steps) ARTICLES SCORE Total number of steps: 8 DRESSING - LOWER BODY - STEP 1: Does the patient require help when dressing below the waist? Yes. DRESSING - LOWER BODY - STEP 2: Does the patient require the assistance of a helper? Yes. DRESSING - LOWER BODY - STEP 3: Does the helper touch the patient while dressing? Yes. DRESSING - LOWER BODY - STEP 4: How many of the total steps does the patient complete on his/her own? 1 DRESSING - LOWER BODY - STEP 5: Does patient require total assistance for dressing below the waist such as the helper holding clothin g and performing basically all the activities? No. DRESSING - LOWER BODY - SCORE: 2-MAX TOILETING: TOILETING - STEP 1: Does the patient require assistance with toileting? Yes. TOILETING - STEP 2: Does the patient require the assistance of a helper? Yes. TOILETING - STEP 3: How much assistance does the patient require from the helper? Hands-on assistance from the helper TOILETING - STEP 4: Of the 3 tasks: 1) Adjusting clothing prior to use, 2) Cleansing of perineal area, 3) Adjusting clot feroz after use; How many tasks does the patient perform WITHOUT assistance of the helper? One task TOILETING - SCORE: 2-MAX BLADDER MANAGEMENT: BLADDER MANAGEMENT - STEP 1: Does the patient control the bladder completely and intentionally without equipment or devices or med ications, and is always continent? No. BLADDER MANAGEMENT - STEP 2: Does the patient require the assistance of a helper? No, patient requires and independently uses an a ssistive device, such as a urinal, bedpan, bedside commode, catheter, absorbent pad, or collecting de vice BLADDER MANAGEMENT - SCORE: 6-TINO BLADDER MANAGEMENT - FREQUENCY OF ACCIDENTS: BLADDER MANAGEMENT(FA) - STEP 1: How many accidents has the patient had during the current shift? 1 BOWEL MANAGEMENT: Activity did not occur on this shift BOWEL MANAGEMENT - SCORE: 7-IND TRANSFERS: BED, CHAIR, WHEELCHAIR: TRANSFERS: BED, CHAIR, WHEELCHAIR - STEP 1: Does the patient require assistance with bed, chair, or wheelchair transfers? Yes. TRANSFERS: BED, CHAIR, WHEELCHAIR - STEP 2: Does the patient require the assistance of a helper? Yes. TRANSFERS: BED, CHAIR, WHEELCHAIR - STEP 3: How much assistance does the patient require from the helper? Lifting of the legs TRANSFERS: BED, CHAIR, WHEELCHAIR - STEP 4: How many legs does the patient require the helper to lift? both legs TRANSFERS: BED, CHAIR, WHEELCHAIR - SCORE: 3-MOD TRANSFERS: TOILET: TRANSFERS: TOILET - STEP 1: Does the patient require assistance with toilet transfers? Yes. TRANSFERS: TOILET - STEP 2: Does the patient require the assistance of a helper? Yes. TRANSFERS: TOILET - STEP 3: How much assistance does the patient require from the helper? Patient performs half or more of the tr ansferring tasks TRANSFERS: TOILET - STEP 4: Does the patient need only incidental help such as contact guard or steadying during toilet transfer? No. Patient needs more than incidental help TRANSFERS: TOILET - SCORE: 3-MOD TRANSFERS: SHOWER: Activity did not occur on this shift TRANSFERS: SHOWER - SCORE: 0-UNK TRANSFERS: TUB: Activity did not occur on this shift TRANSFERS: TUB - SCORE: 0-UNK LOCOMOTION: WALK: Activity did not occur on this shift LOCOMOTION: WALK - SCORE: 0-UNK LOCOMOTION: WHEELCHAIR: Activity did not occur on this shift LOCOMOTION: WHEELCHAIR - SCORE: 0-UNK COMPREHENSION: COMPREHENSION - SCORE: 0-UNK EXPRESSION EXPRESSION - SCORE: 0-UNK SOCIAL INTERACTION: SOCIAL INTERACTION - SCORE: 0-UNK PROBLEM SOLVING: PROBLEM SOLVING - SCORE: 0-UNK MEMORY: MEMORY - SCORE: 0-UNK SIGNATURE PANEL: The following modified sections: Eating - Score, Grooming - Score, Bathing - Score, Dressing - Upper Body - Score, Dressing - Lower Body - Score, Toileting - Score, Bladder Management - Score, Bowel Man agement - Score, Transfers: Bed, Chair, Wheelchair - Score, Transfers: Toilet - Score, Transfers: Shonna wer - Score, Transfers: Tub - Score, Locomotion: Walk - Score, Locomotion: Wheelchair - Score, Compre hension - Score, Expression - Score, Social Interaction - Score, Problem Solving - Score, Memory - Sc ore were [electronically] signed by Aayush Reeves on TueFeb 02 2018 10:28:06 T-0500 (Central Daylight Time)
[2018-02-02] MEDS: TRAMADOL HCL 50 MG TAB PO PRN ×2 (12:28→17:34)
--- NOTE | 2018-02-02 13:06 | P.PN ---
Subjective Date of Service: 02/02/18 Chief Complaint: CONSTIPATED FROM MEDS Subjective: Improving Review of Systems 10-point ROS is otherwise unremarkable Musculoskeletal: As per HPI (RIGHT THIGH, PELVIS PAIN, WHEN MOVES.) Physical Examination - Vital Signs Temperature: 97.8 F Blood Pressure: 122/54 Pulse: 78 Respirations: 18 Pulse Ox (%): 97 - Physical Exam General: Mild distress HEENT: Atraumatic, PERRLA, EOMI Neck: Supple, JVD not distended Respiratory: Clear to auscultation bilaterally, Normal air movement Cardiovascular: Regular rate/rhythm, Normal S1 S2 Gastrointestinal: Normal bowel sounds, No tenderness Musculoskeletal: No tenderness Integumentary: No rashes Neurological: Normal speech, Normal tone, Normal affect Lymphatics: No axilla or inguinal lymphadenopathy - Studies Medications List Reviewed: Yes Assessment And Plan - Current Problems (Diagnosis) (1) Constipation Current Visit: Yes Status: Acute Plan: MOM AND MIRALAX STOP NORCO START TRAMADOL (2) Hypokalemia Current Visit: Yes Status: Acute (3) Pubic ramus fracture Onset Date: 02/02/18 Current Visit: Yes Status: Acute Plan: FU PT PAIN MX HEALING IN TWO MNTHS. Qualifiers: Encounter type: subsequent encounter Fracture type: closed Laterality: right Fracture healing: with routine healing Qualified Code(s): S32.591D - Other specified fracture of right pubis, subsequent encounter for fracture with routine healing
--- NOTE | 2018-02-02 17:12 | FAST ---
ENCOUNTER DATE AND TIME: 02/02/2018 08:00 (CDT) NAME FRANCE BAUMANN DATE OF : 1945 DATE OF ADMISSION: 01/31/2018 15:46 (CDT) PHONE: AGE: 72 N# [id number] GENDER: Female ENCOUNTER PHYSICIAN: Dr. Luke Mjaor M.D. ADMISSION DIAGNOSIS: - Orthopaedic Disorders 08 - Pelvic Fracture (08.3) pubic ramus fx, humerus fx, hip pain. EATING: Activity did not occur on this shift EATING - SCORE: 0-UNK GROOMING: Activity did not occur on this shift GROOMING - SCORE: 0-UNK BATHING: Activity did not occur on this shift BATHING - SCORE: 0-UNK DRESSING - UPPER BODY: Activity did not occur on this shift Patient is not dressing in public clothing ARTICLES SCORE Total number of steps: 0 DRESSING - UPPER BODY - SCORE: 0-UNK DRESSING - LOWER BODY: Activity did not occur on this shift Patient is not dressing in public clothing ARTICLES SCORE Total number of steps: 0 DRESSING - LOWER BODY - SCORE: 0-UNK TOILETING: Activity did not occur on this shift TOILETING - SCORE: 0-UNK BLADDER MANAGEMENT: Activity did not occur on this shift BLADDER MANAGEMENT - SCORE: 7-IND BOWEL MANAGEMENT: Activity did not occur on this shift BOWEL MANAGEMENT - SCORE: 7-IND TRANSFERS: BED, CHAIR, WHEELCHAIR: TRANSFERS: BED, CHAIR, WHEELCHAIR - STEP 1: Does the patient require assistance with bed, chair, or wheelchair transfers? Yes. TRANSFERS: BED, CHAIR, WHEELCHAIR - STEP 2: Does the patient require the assistance of a helper? Yes. TRANSFERS: BED, CHAIR, WHEELCHAIR - STEP 3: How much assistance does the patient require from the helper? Steadying/guiding assistance TRANSFERS: BED, CHAIR, WHEELCHAIR - SCORE: 4-MIN TRANSFERS: TOILET: Activity did not occur on this shift TRANSFERS: TOILET - SCORE: 0-UNK TRANSFERS: SHOWER: Activity did not occur on this shift TRANSFERS: SHOWER - SCORE: 0-UNK TRANSFERS: TUB: Activity did not occur on this shift TRANSFERS: TUB - SCORE: 0-UNK LOCOMOTION: WALK: Patient walks less than 50 feet LOCOMOTION: WALK - SCORE: 1-DEP LOCOMOTION: WHEELCHAIR: LOCOMOTION: WHEELCHAIR - STEP 1: Does the patient need help to go 150 feet in a wheelchair? Yes. LOCOMOTION: WHEELCHAIR - STEP 2: How much assistance does the patient need from the helper? Only incidental help such as around corner s or over thresholds LOCOMOTION: WHEELCHAIR - SCORE: 4-MIN LOCOMOTION: STAIRS: Activity did not occur on this shift LOCOMOTION: STAIRS - SCORE: 0-UNK COMPREHENSION: COMPREHENSION - SCORE: 0-UNK EXPRESSION EXPRESSION - SCORE: 0-UNK SOCIAL INTERACTION: SOCIAL INTERACTION - SCORE: 0-UNK PROBLEM SOLVING: PROBLEM SOLVING - SCORE: 0-UNK MEMORY: MEMORY - SCORE: 0-UNK SIGNATURE PANEL: The following modified sections: Transfers: Bed, Chair, Wheelchair - Score, Transfers: Toilet - Score , Locomotion: Walk - Score, Locomotion: Wheelchair - Score, Locomotion: Stairs - Score were [electron florina] signed by Josh Cortes PT on TueFeb 02 2018 16:13:47 T-0500 (Central Daylight Time)
[2018-02-03] MEDS: HYDROCODONE/APAP 7.5/325 MG TAB PO PRN (00:01)
--- NOTE | 2018-02-03 04:25 | FAST ---
SHIFT START DATE/TIME: 02/02/2018 19:00 (CDT) SHIFT END DATE/TIME: 02/03/2018 07:00 (CDT) NAME FRANCE BAUMANN DATE OF : 1945 DATE OF ADMISSION: 01/31/2018 15:46 (CDT) PHONE: AGE: 72 N# [id number] GENDER: Female ENCOUNTER PHYSICIAN: Dr. Luke Major M.D. ADMISSION DIAGNOSIS: - Orthopaedic Disorders 08 - Pelvic Fracture (08.3) pubic ramus fx, humerus fx, hip pain. EATING: EATING - STEP 1: Does the patient require assistance when eating? Yes. EATING - STEP 2: Does the patient require the assistance of a helper? Yes. EATING - STEP 3: Does the patient perform half or more of the eating tasks? Yes. EATING - STEP 4: Does the patient need only supervision, cuing, coaxing OR help to apply an orthosis OR help to cut fo od, open containers, pour liquids, or butter bread? Yes. EATING - SCORE: 5-SUP GROOMING: Wash, rinse, and dry face Wash, rinse, and dry hands GROOMING - STEP 1: Does the patient require assistance when grooming? Yes. GROOMING - STEP 2: Does the patient require the assistance of a helper? Yes. GROOMING - STEP 3: How much assistance does the patient require from the helper? Only prior equipment preparation/set up from the helper GROOMING - SCORE: 5-SUP BATHING: Activity did not occur on this shift BATHING - SCORE: 0-UNK DRESSING - UPPER BODY: Activity did not occur on this shift ARTICLES SCORE Total number of steps: 0 DRESSING - UPPER BODY - SCORE: 0-UNK DRESSING - LOWER BODY: Activity did not occur on this shift ARTICLES SCORE Total number of steps: 0 DRESSING - LOWER BODY - SCORE: 0-UNK TOILETING: TOILETING - STEP 1: Does the patient require assistance with toileting? Yes. TOILETING - STEP 2: Does the patient require the assistance of a helper? Yes. TOILETING - STEP 3: How much assistance does the patient require from the helper? Hands-on assistance from the helper TOILETING - STEP 4: Of the 3 tasks: 1) Adjusting clothing prior to use, 2) Cleansing of perineal area, 3) Adjusting clot feroz after use; How many tasks does the patient perform WITHOUT assistance of the helper? No tasks; h elper performs all three tasks TOILETING - SCORE: 1-DEP BLADDER MANAGEMENT: BLADDER MANAGEMENT - STEP 1: Does the patient control the bladder completely and intentionally without equipment or devices or med ications, and is always continent? No. BLADDER MANAGEMENT - STEP 2: Does the patient require the assistance of a helper? Yes. BLADDER MANAGEMENT - STEP 3: How much assistance does the patient require from the helper? Patient requires contact assistance fro m the helper BLADDER MANAGEMENT - STEP 4: How much contact assistance does the patient require from the helper? Patient requires minimal assist ance to maintain an external device - by positioning, and the patient performs 75% or more of bladder management tasks, while the helper provides less than 25% of the assistance to position patient on / off bedpan BLADDER MANAGEMENT - SCORE: 4-MIN BLADDER MANAGEMENT - FREQUENCY OF ACCIDENTS: BLADDER MANAGEMENT(FA) - STEP 1: How many accidents has the patient had during the current shift? 0 BOWEL MANAGEMENT: Activity did not occur on this shift BOWEL MANAGEMENT - SCORE: 7-IND TRANSFERS: BED, CHAIR, WHEELCHAIR: TRANSFERS: BED, CHAIR, WHEELCHAIR - STEP 1: Does the patient require assistance with bed, chair, or wheelchair transfers? Yes. TRANSFERS: BED, CHAIR, WHEELCHAIR - STEP 2: Does the patient require the assistance of a helper? Yes. TRANSFERS: BED, CHAIR, WHEELCHAIR - STEP 3: How much assistance does the patient require from the helper? Lifting of the legs TRANSFERS: BED, CHAIR, WHEELCHAIR - STEP 4: How many legs does the patient require the helper to lift? both legs TRANSFERS: BED, CHAIR, WHEELCHAIR - SCORE: 3-MOD TRANSFERS: TOILET: TRANSFERS: TOILET - STEP 1: Does the patient require assistance with toilet transfers? Yes. TRANSFERS: TOILET - STEP 2: Does the patient require the assistance of a helper? Yes. TRANSFERS: TOILET - STEP 3: How much assistance does the patient require from the helper? Patient performs half or more of the tr ansferring tasks TRANSFERS: TOILET - STEP 4: Does the patient need only incidental help such as contact guard or steadying during toilet transfer? Yes. TRANSFERS: TOILET - SCORE: 4-MIN TRANSFERS: SHOWER: Activity did not occur on this shift TRANSFERS: SHOWER - SCORE: 0-UNK TRANSFERS: TUB: Activity did not occur on this shift TRANSFERS: TUB - SCORE: 0-UNK LOCOMOTION: WALK: Activity did not occur on this shift LOCOMOTION: WALK - SCORE: 0-UNK LOCOMOTION: WHEELCHAIR: Activity did not occur on this shift LOCOMOTION: WHEELCHAIR - SCORE: 0-UNK COMPREHENSION: COMPREHENSION: TYPE: Both COMPREHENSION - STEP 1: Does the patient require help to understand complex and abstract ideas (such as current events, finan shea, discharge planning, medical issues, relationships, etc)? No. COMPREHENSION - STEP 2: Does the patient need extra time, require an assistive device (such as glasses, hearing aids, or an a ugmentative communication system), OR does s/he have mild difficulty expressing complex and abstract ideas (including mild dysarthria or mild word-finding problems)? Yes. COMPREHENSION - SCORE: 6-TINO EXPRESSION EXPRESSION: TYPE: Both EXPRESSION - STEP 1: Does the patient require help expressing complex and abstract ideas (such as current events, finances , discharge planning, medical issues, relationships, etc)? No. EXPRESSION - STEP 2: Does the patient need extra time, require an assistive device (such as augmentive communication syste m or a communication board), OR does s/he have mild difficulty expressing complex and abstract ideas (including mild dysarthria or mild word-find problems)? Yes. EXPRESSION - SCORE: 6-TINO SOCIAL INTERACTION: SOCIAL INTERACTION - STEP 1: Does the patient require a helper to interact with others in social and therapeutic situations? No. SOCIAL INTERACTION - STEP 2: Does the patient need extra time in social situations, OR does s/he interact with staff, other patien ts, and family members ONLY in structured environments, OR does s/he require medication for social in teraction? Yes, patient needs extra time SOCIAL INTERACTION - SCORE: 6-TINO PROBLEM SOLVING: PROBLEM SOLVING - STEP 1: Does the patient need help to solve complex problems such as managing a checking account or confronti ng interpersonal problems? Yes. PROBLEM SOLVING - STEP 2: Does the patient solve basic routine problems half or more of the time? Yes. PROBLEM SOLVING - STEP 3: How often does the patient need help to solve basic routine problems? Less than 10% of the time PROBLEM SOLVING - SCORE: 5-SUP MEMORY: MEMORY - STEP 1: Does the patient need help to remember frequently encountered people, daily routines, and executing r equests? Yes. MEMORY - STEP 2: How often does the patient need help to remember frequently encountered people, daily routines, and e xecuting requests? Less than 10% of the time MEMORY - SCORE: 5-SUP SIGNATURE PANEL: The following modified sections: Eating - Score, Grooming - Score, Bathing - Score, Dressing - Upper Body - Score, Dressing - Lower Body - Score, Toileting - Score, Bladder Management - Score, Bowel Man agement - Score, Transfers: Bed, Chair, Wheelchair - Score, Transfers: Toilet - Score, Transfers: Shonna wer - Score, Transfers: Tub - Score, Locomotion: Walk - Score, Locomotion: Wheelchair - Score, Compre hension - Score, Expression - Score, Social Interaction - Score, Problem Solving - Score, Memory - Sc ore were [electronically] signed by Irais Young CCtNFlora on TueFeb 03 2018 03:26:18 T-0500 ( Central Daylight Time)
[2018-02-03] MEDS: POTASSIUM CL SA 10 MEQ TAB PO SCH ×2 (08:00→20:08)
[2018-02-03] MEDS: ASCORBIC ACID 500 MG TABLET PO SCH ×2 (08:18→20:08)
[2018-02-03] MEDS: GABAPENTIN 300 MG CAP PO SCH ×3 (08:18→20:08)
[2018-02-03] MEDS: VITAMIN D 5,000 UNIT CAP PO SCH (08:18)
[2018-02-03] MEDS: BISOPROLOL 5 MG TABLET PO SCH (08:19)
[2018-02-03] MEDS: SPIRONOLACTONE 25 MG TABLET PO SCH (08:19)
[2018-02-03] MEDS: PANTOPRAZOLE 40MG TABLET PO SCH (08:19)
[2018-02-03] MEDS: TRAMADOL HCL 50 MG TAB PO PRN ×2 (08:19→12:24)
[2018-02-03] MEDS: TRIAMCINOLONE 0.1% OINT 15 GM TOP SCH ×2 (08:20→20:08)
[2018-02-03] MEDS: ASPIRIN EC 81 MG TAB PO SCH (08:20)
[2018-02-03] MEDS: CYANOCOBALAMIN 1,000 MCG TAB PO SCH (08:23)
--- NOTE | 2018-02-03 09:48 | P.RH.PN ---
Estimated Length of Stay: 11 Expected Discharge Date: 02/10/18 Discharge Disposition Plan: Home Family Support: Yes Assisted Goal: Mobility, Transfers, Self Care Vital Signs: Last Vital Signs Temp 96.6 F L 02/03/18 07:47 Pulse 74 02/03/18 08:19 Resp 16 02/03/18 07:47 BP 121/66 02/03/18 08:19 Pulse Ox 95 02/03/18 07:47 Laboratory: Laboratory Last Values WBC 10.5 K/uL (4.3-10.9) 02/01/18 06:25 RBC 4.44 M/uL (3.86-4.86) 02/01/18 06:25 Hgb 12.2 g/dL (12.0-15.0) 02/01/18 06:25 Hct 37.9 % (36.0-45.0) 02/01/18 06:25 MCV 85.4 fL (80-100) 02/01/18 06:25 MCH 27.6 pg (27.0-35.0) 02/01/18 06:25 MCHC 32.3 g/dL (32.0-36.0) 02/01/18 06:25 RDW 14.1 % (12.1-15.2) 02/01/18 06:25 Plt Count 174 K/uL (152-406) 02/01/18 06:25 MPV 10.4 fL (7.6-11.3) 02/01/18 06:25 Neutrophils % 63.0 % (41.7-73.7) 02/01/18 06:25 Lymphocytes % 19.3 % (15.3-44.8) 02/01/18 06:25 Monocytes % 13.4 % (3.3-12.3) H 02/01/18 06:25 Eosinophils % 3.1 % (0-4.4) 02/01/18 06:25 Basophils % 1.2 % (0-1.3) 02/01/18 06:25 Absolute Neutrophils 6.6 K/uL (1.8-8.0) 02/01/18 06:25 Absolute Lymphocytes 2.0 K/uL (0.7-4.9) 02/01/18 06:25 Absolute Monocytes 1.4 K/uL (0.1-1.3) H 02/01/18 06:25 Absolute Eosinophils 0.3 K/uL (0-0.5) 02/01/18 06:25 Absolute Basophils 0.1 K/uL (0-0.5) 02/01/18 06:25 Sodium 140 mEq/L (135-145) 02/01/18 06:25 Potassium 4.6 mEq/L (3.6-5.0) 02/03/18 06:59 Chloride 104 mEq/L (101-111) 02/01/18 06:25 Carbon Dioxide 27 mEq/L (21-31) 02/01/18 06:25 BUN 10 mg/dL (6-20) 02/01/18 06:25 Creatinine 0.62 mg/dL (0.44-1.00) 02/01/18 06:25 Estimated GFR > 90 mL/min (=/>90) 02/01/18 06:25 Glucose 126 mg/dL (65-120) H 02/01/18 06:25 Calcium 8.7 mg/dL (8.5-10.5) 02/01/18 06:25 Magnesium 1.8 mg/dL (1.8-2.5) 02/01/18 06:25 Albumin 3.1 g/dL (3.2-5.5) L 02/01/18 06:25 Prealbumin 10.1 mg/dl (18-38) L 02/01/18 06:25 Weight: 128 lb Wound Present: No Closed Surgical Incision Present: No Negative Pressure Wound Therapy Present: No Physician Update: Her blood work shows normal CBC with differential and essentially normal basic metabolic panel. She is moderately limited by pelvic and groin pain. Only able to ambulate 10' with moderate assitance. She has a area of contact dermatitis with her brace. She has an ABD pad and 0.1% steroid cream. Pain Issues: on [facility] 7.5/325mg Q4H PRN Functional Improvement: pt is demonstrating progress; hwoever, she is limited by severe R inguinal pain during weightbearing. pt exhibits poor tolerance to functional activity due to pain. Functional Improvement Occupational Therapy: PATIENT HAS GREAT DIFFICULTY WITH WEIGHT BEARING ON RIGHT LEG DURING FUNCTIONAL TRF; PARTICIPATORY WITH OCCUPATIONAL THERAPY. Summary: Patient's care plan and custodial goals have been reviewed and revised as necessary. Please see the Rehabilitation Signature page for all necessary signatures.
--- NOTE | 2018-02-03 13:54 | FAST ---
ENCOUNTER DATE AND TIME: 02/03/2018 08:00 (CDT) NAME FRANCE BAUMANN DATE OF : 1945 DATE OF ADMISSION: 01/31/2018 15:46 (CDT) PHONE: AGE: 72 N# [id number] GENDER: Female ENCOUNTER PHYSICIAN: Dr. Luke Major M.D. ADMISSION DIAGNOSIS: - Orthopaedic Disorders 08 - Pelvic Fracture (08.3) pubic ramus fx, humerus fx, hip pain. EATING: Activity did not occur on this shift EATING - SCORE: 0-UNK GROOMING: Comb/brush hair Wash, rinse, and dry face Wash, rinse, and dry hands GROOMING - STEP 1: Does the patient require assistance when grooming? Yes. GROOMING - STEP 2: Does the patient require the assistance of a helper? Yes. GROOMING - STEP 3: How much assistance does the patient require from the helper? Only prior equipment preparation/set up from the helper GROOMING - SCORE: 5-SUP BATHING: Abdomen Buttocks Chest Left arm Left lower leg and foot Left upper leg Perineal area Right arm Right lower leg and foot Right upper leg BATHING - STEP 1: Does the patient require assistance when bathing? Yes. BATHING - STEP 2: Does the patient require the assistance of a helper? Yes. BATHING - STEP 3: How much assistance does the patient require from the helper? Only incidental help such as placement of a wash cloth in his/her hand a few times as s/he bathes OR help to bathe just one or two areas of the body BATHING - SCORE: 4-MIN DRESSING - UPPER BODY: T-shirt/pullover shirt (four steps) ARTICLES SCORE Total number of steps: 4 DRESSING - UPPER BODY - STEP 1: Does the patient require help when dressing above the waist? Yes. DRESSING - UPPER BODY - STEP 2: Does the patient require the assistance of a helper? Yes. DRESSING - UPPER BODY - STEP 3: Does the helper touch the patient while dressing? Yes. DRESSING - UPPER BODY - STEP 4: How many of the total steps does the patient complete on his/her own? 2 DRESSING - UPPER BODY - SCORE: 3-MOD DRESSING - LOWER BODY: Elastic waist pants (three steps) Slip-on shoe - Left foot (one step) Slip-on shoe - Right foot (one step) Underwear (three steps) ARTICLES SCORE Total number of steps: 8 DRESSING - LOWER BODY - STEP 1: Does the patient require help when dressing below the waist? Yes. DRESSING - LOWER BODY - STEP 2: Does the patient require the assistance of a helper? Yes. DRESSING - LOWER BODY - STEP 3: Does the helper touch the patient while dressing? Yes. DRESSING - LOWER BODY - STEP 4: How many of the total steps does the patient complete on his/her own? 5 DRESSING - LOWER BODY - SCORE: 3-MOD TOILETING: Activity did not occur on this shift TOILETING - SCORE: 0-UNK BLADDER MANAGEMENT: Activity did not occur on this shift BLADDER MANAGEMENT - SCORE: 7-IND BOWEL MANAGEMENT: Activity did not occur on this shift BOWEL MANAGEMENT - SCORE: 7-IND TRANSFERS: BED, CHAIR, WHEELCHAIR: Activity did not occur on this shift TRANSFERS: BED, CHAIR, WHEELCHAIR - SCORE: 0-UNK TRANSFERS: TOILET: Activity did not occur on this shift TRANSFERS: TOILET - SCORE: 0-UNK TRANSFERS: SHOWER: Activity did not occur on this shift TRANSFERS: SHOWER - SCORE: 0-UNK TRANSFERS: TUB: TRANSFERS: TUB - STEP 1: Does the patient require assistance with tub transfers? Yes. TRANSFERS: TUB - STEP 2: Does the patient require the assistance of a helper? Yes. TRANSFERS: TUB - STEP 3: How much assistance does the patient require from the helper? Incidental help such as contact guardin g or steadying, OR help to lift one leg into the tub TRANSFERS: TUB - SCORE: 4-MIN LOCOMOTION: WALK: Activity did not occur on this shift LOCOMOTION: WALK - SCORE: 0-UNK LOCOMOTION: WHEELCHAIR: Activity did not occur on this shift LOCOMOTION: WHEELCHAIR - SCORE: 0-UNK LOCOMOTION: STAIRS: Activity did not occur on this shift LOCOMOTION: STAIRS - SCORE: 0-UNK COMPREHENSION: COMPREHENSION: TYPE: Both COMPREHENSION - STEP 1: Does the patient require help to understand complex and abstract ideas (such as current events, finan shea, discharge planning, medical issues, relationships, etc)? No. COMPREHENSION - STEP 2: Does the patient need extra time, require an assistive device (such as glasses, hearing aids, or an a ugmentative communication system), OR does s/he have mild difficulty expressing complex and abstract ideas (including mild dysarthria or mild word-finding problems)? Yes. COMPREHENSION - SCORE: 6-TINO EXPRESSION EXPRESSION: TYPE: Both EXPRESSION - STEP 1: Does the patient require help expressing complex and abstract ideas (such as current events, finances , discharge planning, medical issues, relationships, etc)? No. EXPRESSION - STEP 2: Does the patient need extra time, require an assistive device (such as augmentive communication syste m or a communication board), OR does s/he have mild difficulty expressing complex and abstract ideas (including mild dysarthria or mild word-find problems)? No. EXPRESSION - SCORE: 7-IND SOCIAL INTERACTION: SOCIAL INTERACTION - STEP 1: Does the patient require a helper to interact with others in social and therapeutic situations? No. SOCIAL INTERACTION - STEP 2: Does the patient need extra time in social situations, OR does s/he interact with staff, other patien ts, and family members ONLY in structured environments, OR does s/he require medication for social in teraction? No. SOCIAL INTERACTION - SCORE: 7-IND PROBLEM SOLVING: PROBLEM SOLVING - STEP 1: Does the patient need help to solve complex problems such as managing a checking account or confronti ng interpersonal problems? Yes. PROBLEM SOLVING - STEP 2: Does the patient solve basic routine problems half or more of the time? Yes. PROBLEM SOLVING - STEP 3: How often does the patient need help to solve basic routine problems? Less than 10% of the time PROBLEM SOLVING - SCORE: 5-SUP MEMORY: MEMORY - STEP 1: Does the patient need help to remember frequently encountered people, daily routines, and executing r equests? Yes. MEMORY - STEP 2: How often does the patient need help to remember frequently encountered people, daily routines, and e xecuting requests? 10% - 24% of the time MEMORY - SCORE: 4-MIN SIGNATURE PANEL: The following modified sections: Eating - Score, Grooming - Score, Bathing - Score, Dressing - Upper Body - Score, Dressing - Lower Body - Score, Toileting - Score, Transfers: Bed, Chair, Wheelchair - S core, Transfers: Toilet - Score, Transfers: Shower - Score, Transfers: Tub - Score, Comprehension - S core, Expression - Score, Social Interaction - Score, Problem Solving - Score, Memory - Score were [e lectronically] signed by Alla Gusman OT on TueFeb 03 2018 12:55:46 T-0500 (Central Da ylight Time)
--- NOTE | 2018-02-03 15:25 | P.PN ---
Subjective Date of Service: 02/03/18 Chief Complaint: CONSTIPATED FROM MEDS Subjective: Improving SHE IS A LOT BETTER NO PAIN UNLESS MOVES. WILL DO BMD LATER. Review of Systems 10-point ROS is otherwise unremarkable General: Weakness, Malaise Physical Examination - Vital Signs Temperature: 96.6 F Blood Pressure: 121/66 Pulse: 74 Respirations: 16 Pulse Ox (%): 95 - Physical Exam General: Alert, Mild distress HEENT: Atraumatic, PERRLA, EOMI Neck: Supple, JVD not distended Respiratory: Clear to auscultation bilaterally, Normal air movement Cardiovascular: Regular rate/rhythm, Normal S1 S2 Gastrointestinal: Normal bowel sounds, No tenderness Musculoskeletal: No tenderness Integumentary: No rashes Neurological: Normal speech, Normal tone, Normal affect Lymphatics: No axilla or inguinal lymphadenopathy - Studies Laboratory Data (last 24 hrs) 02/03/18 06:59: Potassium 4.6 Medications List Reviewed: Yes Assessment And Plan - Current Problems (Diagnosis) (1) Constipation Current Visit: Yes Status: Acute Plan: MOM AND MIRALAX STOP NORCO START TRAMADOL (2) Hypokalemia Current Visit: Yes Status: Acute (3) Pubic ramus fracture Onset Date: 02/02/18 Current Visit: Yes Status: Acute Plan: FU PT PAIN MX HEALING IN TWO MNTHS. OT PT PAIN MRELIEV CHANGE TO ULTRAM. Qualifiers: Encounter type: subsequent encounter Fracture type: closed Laterality: right Fracture healing: with routine healing Qualified Code(s): S32.591D - Other specified fracture of right pubis, subsequent encounter for fracture with routine healing
--- NOTE | 2018-02-03 18:08 | FAST ---
ENCOUNTER DATE AND TIME: 02/01/2018 08:00 (CDT) NAME FRANCE BAUMANN DATE OF : 1945 DATE OF ADMISSION: 01/31/2018 15:46 (CDT) PHONE: AGE: 72 N# [id number] GENDER: Female ENCOUNTER PHYSICIAN: Dr. Luke Major M.D. ADMISSION DIAGNOSIS: - Orthopaedic Disorders 08 - Pelvic Fracture (08.3) pubic ramus fx, humerus fx, hip pain. EATING: Activity did not occur on this shift EATING - SCORE: 0-UNK GROOMING: Comb/brush hair Oral care Wash, rinse, and dry face Wash, rinse, and dry hands GROOMING - STEP 1: Does the patient require assistance when grooming? Yes. GROOMING - STEP 2: Does the patient require the assistance of a helper? Yes. GROOMING - STEP 3: How much assistance does the patient require from the helper? Only prior equipment preparation/set up from the helper GROOMING - SCORE: 5-SUP BATHING: Abdomen Buttocks Chest Left arm Left lower leg and foot Left upper leg Perineal area Right arm Right lower leg and foot Right upper leg BATHING - STEP 1: Does the patient require assistance when bathing? Yes. BATHING - STEP 2: Does the patient require the assistance of a helper? Yes. BATHING - STEP 3: How much assistance does the patient require from the helper? More than just incidental help BATHING - STEP 4: What percent of the body parts did the patient bathe WITHOUT the helper? Less than half of the body p arts BATHING - SCORE: 2-MAX DRESSING - UPPER BODY: T-shirt/pullover shirt (four steps) ARTICLES SCORE Total number of steps: 4 DRESSING - UPPER BODY - STEP 1: Does the patient require help when dressing above the waist? Yes. DRESSING - UPPER BODY - STEP 2: Does the patient require the assistance of a helper? Yes. DRESSING - UPPER BODY - STEP 3: Does the helper touch the patient while dressing? Yes. DRESSING - UPPER BODY - STEP 4: How many of the total steps does the patient complete on his/her own? 0 DRESSING - UPPER BODY - STEP 5: Does Patient require total assistance for dressing above the waist such as the helper holding clothin g and performing basically all the activities? Yes. DRESSING - UPPER BODY - SCORE: 1-DEP DRESSING - LOWER BODY: Elastic waist pants (three steps) Sock - Left foot (one step) Sock - Right foot (one step) Underwear (three steps) ARTICLES SCORE Total number of steps: 8 DRESSING - LOWER BODY - STEP 1: Does the patient require help when dressing below the waist? Yes. DRESSING - LOWER BODY - STEP 2: Does the patient require the assistance of a helper? Yes. DRESSING - LOWER BODY - STEP 3: Does the helper touch the patient while dressing? Yes. DRESSING - LOWER BODY - STEP 4: How many of the total steps does the patient complete on his/her own? 0 DRESSING - LOWER BODY - STEP 5: Does patient require total assistance for dressing below the waist such as the helper holding clothin g and performing basically all the activities? Yes. DRESSING - LOWER BODY - SCORE: 1-DEP TOILETING: Activity did not occur on this shift TOILETING - SCORE: 0-UNK BLADDER MANAGEMENT: Activity did not occur on this shift BLADDER MANAGEMENT - SCORE: 7-IND BOWEL MANAGEMENT: Activity did not occur on this shift BOWEL MANAGEMENT - SCORE: 7-IND TRANSFERS: BED, CHAIR, WHEELCHAIR: Activity did not occur on this shift TRANSFERS: BED, CHAIR, WHEELCHAIR - SCORE: 0-UNK TRANSFERS: TOILET: Activity did not occur on this shift TRANSFERS: TOILET - SCORE: 0-UNK TRANSFERS: SHOWER: TRANSFERS: SHOWER - STEP 1: Does the patient require assistance with shower transfers? Yes. TRANSFERS: SHOWER - STEP 2: Does the patient require the assistance of a helper? Yes. TRANSFERS: SHOWER - STEP 3: How much assistance does the patient require from the helper? More than incidental help TRANSFERS: SHOWER - STEP 4: How much more help does the patient require from the helper? Lifting the patient up AND down from the wheelchair onto the shower chair TRANSFERS: SHOWER - SCORE: 2-MAX TRANSFERS: TUB: Activity did not occur on this shift TRANSFERS: TUB - SCORE: 0-UNK LOCOMOTION: WALK: Activity did not occur on this shift LOCOMOTION: WALK - SCORE: 0-UNK LOCOMOTION: WHEELCHAIR: Activity did not occur on this shift LOCOMOTION: WHEELCHAIR - SCORE: 0-UNK LOCOMOTION: STAIRS: Activity did not occur on this shift LOCOMOTION: STAIRS - SCORE: 0-UNK COMPREHENSION: COMPREHENSION: TYPE: Both COMPREHENSION - STEP 1: Does the patient require help to understand complex and abstract ideas (such as current events, finan shea, discharge planning, medical issues, relationships, etc)? No. COMPREHENSION - STEP 2: Does the patient need extra time, require an assistive device (such as glasses, hearing aids, or an a ugmentative communication system), OR does s/he have mild difficulty expressing complex and abstract ideas (including mild dysarthria or mild word-finding problems)? Yes. COMPREHENSION - SCORE: 6-TINO EXPRESSION EXPRESSION: TYPE: Both EXPRESSION - STEP 1: Does the patient require help expressing complex and abstract ideas (such as current events, finances , discharge planning, medical issues, relationships, etc)? No. EXPRESSION - STEP 2: Does the patient need extra time, require an assistive device (such as augmentive communication syste m or a communication board), OR does s/he have mild difficulty expressing complex and abstract ideas (including mild dysarthria or mild word-find problems)? Yes. EXPRESSION - SCORE: 6-TINO SOCIAL INTERACTION: SOCIAL INTERACTION - STEP 1: Does the patient require a helper to interact with others in social and therapeutic situations? No. SOCIAL INTERACTION - STEP 2: Does the patient need extra time in social situations, OR does s/he interact with staff, other patien ts, and family members ONLY in structured environments, OR does s/he require medication for social in teraction? Yes, patient needs extra time SOCIAL INTERACTION - SCORE: 6-TINO PROBLEM SOLVING: PROBLEM SOLVING - STEP 1: Does the patient need help to solve complex problems such as managing a checking account or confronti ng interpersonal problems? Yes. PROBLEM SOLVING - STEP 2: Does the patient solve basic routine problems half or more of the time? Yes. PROBLEM SOLVING - STEP 3: How often does the patient need help to solve basic routine problems? 10%-24% of the time PROBLEM SOLVING - SCORE: 4-MIN MEMORY: MEMORY - STEP 1: Does the patient need help to remember frequently encountered people, daily routines, and executing r equests? Yes. MEMORY - STEP 2: How often does the patient need help to remember frequently encountered people, daily routines, and e xecuting requests? 10% - 24% of the time MEMORY - SCORE: 4-MIN SIGNATURE PANEL: The following modified sections: Eating - Score, Grooming - Score, Bathing - Score, Dressing - Upper Body - Score, Dressing - Lower Body - Score, Toileting - Score, Transfers: Bed, Chair, Wheelchair - S core, Transfers: Toilet - Score, Transfers: Tub - Score, Transfers: Shower - Score, Comprehension - S core, Expression - Score, Social Interaction - Score, Problem Solving - Score, Memory - Score were [e lectronically] signed by Lindy Wells OT on TueFeb 03 2018 17:09:46 T-0500 ([facility])
--- NOTE | 2018-02-03 18:24 | FAST ---
ENCOUNTER DATE AND TIME: 02/02/2018 08:00 (CDT) NAME FRANCE BAUMANN DATE OF : 1945 DATE OF ADMISSION: 01/31/2018 15:46 (CDT) PHONE: AGE: 72 N# [id number] GENDER: Female ENCOUNTER PHYSICIAN: Dr. Luke Major M.D. ADMISSION DIAGNOSIS: - Orthopaedic Disorders 08 - Pelvic Fracture (08.3) pubic ramus fx, humerus fx, hip pain. EATING: Activity did not occur on this shift EATING - SCORE: 0-UNK GROOMING: Comb/brush hair Wash, rinse, and dry face Wash, rinse, and dry hands GROOMING - STEP 1: Does the patient require assistance when grooming? Yes. GROOMING - STEP 2: Does the patient require the assistance of a helper? Yes. GROOMING - STEP 3: How much assistance does the patient require from the helper? Only prior equipment preparation/set up from the helper GROOMING - SCORE: 5-SUP BATHING: Activity did not occur on this shift BATHING - SCORE: 0-UNK DRESSING - UPPER BODY: Activity did not occur on this shift ARTICLES SCORE Total number of steps: 0 DRESSING - UPPER BODY - SCORE: 0-UNK DRESSING - LOWER BODY: Activity did not occur on this shift ARTICLES SCORE Total number of steps: 0 DRESSING - LOWER BODY - SCORE: 0-UNK TOILETING: TOILETING - STEP 1: Does the patient require assistance with toileting? Yes. TOILETING - STEP 2: Does the patient require the assistance of a helper? Yes. TOILETING - STEP 3: How much assistance does the patient require from the helper? Hands-on assistance from the helper TOILETING - STEP 4: Of the 3 tasks: 1) Adjusting clothing prior to use, 2) Cleansing of perineal area, 3) Adjusting clot feroz after use; How many tasks does the patient perform WITHOUT assistance of the helper? One task TOILETING - SCORE: 2-MAX BLADDER MANAGEMENT: Activity did not occur on this shift BLADDER MANAGEMENT - SCORE: 7-IND BOWEL MANAGEMENT: Activity did not occur on this shift BOWEL MANAGEMENT - SCORE: 7-IND TRANSFERS: BED, CHAIR, WHEELCHAIR: Activity did not occur on this shift TRANSFERS: BED, CHAIR, WHEELCHAIR - SCORE: 0-UNK TRANSFERS: TOILET: TRANSFERS: TOILET - STEP 1: Does the patient require assistance with toilet transfers? Yes. TRANSFERS: TOILET - STEP 2: Does the patient require the assistance of a helper? Yes. TRANSFERS: TOILET - STEP 3: How much assistance does the patient require from the helper? Patient performs less than half of the transferring tasks TRANSFERS: TOILET - STEP 4: Does the patient require total assistance for the toilet transfer such as the helper doing basically all the lifting? No. TRANSFERS: TOILET - SCORE: 2-MAX TRANSFERS: SHOWER: Activity did not occur on this shift TRANSFERS: SHOWER - SCORE: 0-UNK TRANSFERS: TUB: Activity did not occur on this shift TRANSFERS: TUB - SCORE: 0-UNK LOCOMOTION: WALK: Activity did not occur on this shift LOCOMOTION: WALK - SCORE: 0-UNK LOCOMOTION: WHEELCHAIR: Activity did not occur on this shift LOCOMOTION: WHEELCHAIR - SCORE: 0-UNK LOCOMOTION: STAIRS: Activity did not occur on this shift LOCOMOTION: STAIRS - SCORE: 0-UNK COMPREHENSION: COMPREHENSION: TYPE: Both COMPREHENSION - STEP 1: Does the patient require help to understand complex and abstract ideas (such as current events, finan shea, discharge planning, medical issues, relationships, etc)? No. COMPREHENSION - STEP 2: Does the patient need extra time, require an assistive device (such as glasses, hearing aids, or an a ugmentative communication system), OR does s/he have mild difficulty expressing complex and abstract ideas (including mild dysarthria or mild word-finding problems)? Yes. COMPREHENSION - SCORE: 6-TINO EXPRESSION EXPRESSION: TYPE: Both EXPRESSION - STEP 1: Does the patient require help expressing complex and abstract ideas (such as current events, finances , discharge planning, medical issues, relationships, etc)? No. EXPRESSION - STEP 2: Does the patient need extra time, require an assistive device (such as augmentive communication syste m or a communication board), OR does s/he have mild difficulty expressing complex and abstract ideas (including mild dysarthria or mild word-find problems)? Yes. EXPRESSION - SCORE: 6-TINO SOCIAL INTERACTION: SOCIAL INTERACTION - STEP 1: Does the patient require a helper to interact with others in social and therapeutic situations? No. SOCIAL INTERACTION - STEP 2: Does the patient need extra time in social situations, OR does s/he interact with staff, other patien ts, and family members ONLY in structured environments, OR does s/he require medication for social in teraction? Yes, patient needs extra time SOCIAL INTERACTION - SCORE: 6-TINO PROBLEM SOLVING: PROBLEM SOLVING - STEP 1: Does the patient need help to solve complex problems such as managing a checking account or confronti ng interpersonal problems? Yes. PROBLEM SOLVING - STEP 2: Does the patient solve basic routine problems half or more of the time? Yes. PROBLEM SOLVING - STEP 3: How often does the patient need help to solve basic routine problems? 10%-24% of the time PROBLEM SOLVING - SCORE: 4-MIN MEMORY: MEMORY - STEP 1: Does the patient need help to remember frequently encountered people, daily routines, and executing r equests? Yes. MEMORY - STEP 2: How often does the patient need help to remember frequently encountered people, daily routines, and e xecuting requests? 10% - 24% of the time MEMORY - SCORE: 4-MIN SIGNATURE PANEL: The following modified sections: Eating - Score, Grooming - Score, Bathing - Score, Dressing - Upper Body - Score, Dressing - Lower Body - Score, Toileting - Score, Transfers: Bed, Chair, Wheelchair - S core, Transfers: Tub - Score, Transfers: Toilet - Score, Transfers: Shower - Score, Comprehension - S core, Expression - Score, Social Interaction - Score, Problem Solving - Score, Memory - Score were [e lectronically] signed by Lindy Wells OT on TueFeb 03 2018 17:26:31 T-0500 ([facility])
--- NOTE | 2018-02-04 03:09 | FAST ---
SHIFT START DATE/TIME: 02/03/2018 19:00 (CDT) SHIFT END DATE/TIME: 02/04/2018 07:00 (CDT) NAME FRANCE BAUMANN DATE OF : 1945 DATE OF ADMISSION: 01/31/2018 15:46 (CDT) PHONE: AGE: 72 N# [id number] GENDER: Female ENCOUNTER PHYSICIAN: Dr. Luke Major M.D. ADMISSION DIAGNOSIS: - Orthopaedic Disorders 08 - Pelvic Fracture (08.3) pubic ramus fx, humerus fx, hip pain. EATING: Activity did not occur on this shift EATING - SCORE: 0-UNK GROOMING: Oral care Wash, rinse, and dry face Wash, rinse, and dry hands GROOMING - STEP 1: Does the patient require assistance when grooming? Yes. GROOMING - STEP 2: Does the patient require the assistance of a helper? Yes. GROOMING - STEP 3: How much assistance does the patient require from the helper? Only prior equipment preparation/set up from the helper GROOMING - SCORE: 5-SUP BATHING: Activity did not occur on this shift BATHING - SCORE: 0-UNK DRESSING - UPPER BODY: Patient is not dressing in public clothing ARTICLES SCORE Total number of steps: 0 DRESSING - UPPER BODY - SCORE: 0-UNK DRESSING - LOWER BODY: Patient is not dressing in public clothing ARTICLES SCORE Total number of steps: 0 DRESSING - LOWER BODY - SCORE: 0-UNK TOILETING: TOILETING - STEP 1: Does the patient require assistance with toileting? Yes. TOILETING - STEP 2: Does the patient require the assistance of a helper? Yes. TOILETING - STEP 3: How much assistance does the patient require from the helper? Hands-on assistance from the helper TOILETING - STEP 4: Of the 3 tasks: 1) Adjusting clothing prior to use, 2) Cleansing of perineal area, 3) Adjusting clot feroz after use; How many tasks does the patient perform WITHOUT assistance of the helper? Three tasks with steadying assistance from the helper TOILETING - SCORE: 4-MIN BLADDER MANAGEMENT: BLADDER MANAGEMENT - STEP 1: Does the patient control the bladder completely and intentionally without equipment or devices or med ications, and is always continent? No. BLADDER MANAGEMENT - STEP 2: Does the patient require the assistance of a helper? Yes. BLADDER MANAGEMENT - STEP 3: How much assistance does the patient require from the helper? Patient requires contact assistance fro m the helper BLADDER MANAGEMENT - STEP 4: How much contact assistance does the patient require from the helper? Patient requires minimal assist ance to maintain an external device - by positioning, and the patient performs 75% or more of bladder management tasks, while the helper provides less than 25% of the assistance to position patient on / off bedpan BLADDER MANAGEMENT - SCORE: 4-MIN BOWEL MANAGEMENT: Activity did not occur on this shift BOWEL MANAGEMENT - SCORE: 7-IND TRANSFERS: BED, CHAIR, WHEELCHAIR: TRANSFERS: BED, CHAIR, WHEELCHAIR - STEP 1: Does the patient require assistance with bed, chair, or wheelchair transfers? Yes. TRANSFERS: BED, CHAIR, WHEELCHAIR - STEP 2: Does the patient require the assistance of a helper? Yes. TRANSFERS: BED, CHAIR, WHEELCHAIR - STEP 3: How much assistance does the patient require from the helper? Lifting of the legs TRANSFERS: BED, CHAIR, WHEELCHAIR - STEP 4: How many legs does the patient require the helper to lift? both legs TRANSFERS: BED, CHAIR, WHEELCHAIR - SCORE: 3-MOD TRANSFERS: TOILET: TRANSFERS: TOILET - STEP 1: Does the patient require assistance with toilet transfers? Yes. TRANSFERS: TOILET - STEP 2: Does the patient require the assistance of a helper? Yes. TRANSFERS: TOILET - STEP 3: How much assistance does the patient require from the helper? Patient performs half or more of the tr ansferring tasks TRANSFERS: TOILET - STEP 4: Does the patient need only incidental help such as contact guard or steadying during toilet transfer? Yes. TRANSFERS: TOILET - SCORE: 4-MIN TRANSFERS: SHOWER: Activity did not occur on this shift TRANSFERS: SHOWER - SCORE: 0-UNK TRANSFERS: TUB: Activity did not occur on this shift TRANSFERS: TUB - SCORE: 0-UNK LOCOMOTION: WALK: Activity did not occur on this shift LOCOMOTION: WALK - SCORE: 0-UNK LOCOMOTION: WHEELCHAIR: Activity did not occur on this shift LOCOMOTION: WHEELCHAIR - SCORE: 0-UNK COMPREHENSION: COMPREHENSION: TYPE: Both COMPREHENSION - STEP 1: Does the patient require help to understand complex and abstract ideas (such as current events, finan shea, discharge planning, medical issues, relationships, etc)? No. COMPREHENSION - STEP 2: Does the patient need extra time, require an assistive device (such as glasses, hearing aids, or an a ugmentative communication system), OR does s/he have mild difficulty expressing complex and abstract ideas (including mild dysarthria or mild word-finding problems)? Yes. COMPREHENSION - SCORE: 6-TINO EXPRESSION EXPRESSION: TYPE: Both EXPRESSION - STEP 1: Does the patient require help expressing complex and abstract ideas (such as current events, finances , discharge planning, medical issues, relationships, etc)? No. EXPRESSION - STEP 2: Does the patient need extra time, require an assistive device (such as augmentive communication syste m or a communication board), OR does s/he have mild difficulty expressing complex and abstract ideas (including mild dysarthria or mild word-find problems)? Yes. EXPRESSION - SCORE: 6-TINO SOCIAL INTERACTION: SOCIAL INTERACTION - STEP 1: Does the patient require a helper to interact with others in social and therapeutic situations? No. SOCIAL INTERACTION - STEP 2: Does the patient need extra time in social situations, OR does s/he interact with staff, other patien ts, and family members ONLY in structured environments, OR does s/he require medication for social in teraction? Yes, patient needs extra time SOCIAL INTERACTION - SCORE: 6-TINO PROBLEM SOLVING: PROBLEM SOLVING - STEP 1: Does the patient need help to solve complex problems such as managing a checking account or confronti ng interpersonal problems? Yes. PROBLEM SOLVING - STEP 2: Does the patient solve basic routine problems half or more of the time? Yes. PROBLEM SOLVING - STEP 3: How often does the patient need help to solve basic routine problems? Less than 10% of the time PROBLEM SOLVING - SCORE: 5-SUP MEMORY: MEMORY - STEP 1: Does the patient need help to remember frequently encountered people, daily routines, and executing r equests? Yes. MEMORY - STEP 2: How often does the patient need help to remember frequently encountered people, daily routines, and e xecuting requests? Less than 10% of the time MEMORY - SCORE: 5-SUP
[2018-02-04] MEDS: FISH OIL PO SCH (08:00)
[2018-02-04] MEDS: PANTOPRAZOLE 40MG TABLET PO SCH (08:04)
[2018-02-04] MEDS: CYANOCOBALAMIN 1,000 MCG TAB PO SCH (08:04)
[2018-02-04] MEDS: ASPIRIN EC 81 MG TAB PO SCH (08:05)
[2018-02-04] MEDS: GABAPENTIN 300 MG CAP PO SCH ×3 (08:05→20:53)
[2018-02-04] MEDS: ASCORBIC ACID 500 MG TABLET PO SCH ×2 (08:05→19:47)
[2018-02-04] MEDS: HYDROCODONE/APAP 7.5/325 MG TAB PO PRN ×3 (08:05→16:13)
[2018-02-04] MEDS: SPIRONOLACTONE 25 MG TABLET PO SCH (08:06)
[2018-02-04] MEDS: VITAMIN D 5,000 UNIT CAP PO SCH (08:06)
[2018-02-04] MEDS: POTASSIUM CL SA 10 MEQ TAB PO SCH ×2 (08:07→19:47)
[2018-02-04] MEDS: BISOPROLOL 5 MG TABLET PO SCH (08:07)
[2018-02-04] MEDS: TRIAMCINOLONE 0.1% OINT 15 GM TOP SCH ×2 (08:08→19:48)
[2018-02-04] MEDS: TRAMADOL HCL 50 MG TAB PO PRN (11:26)
--- NOTE | 2018-02-04 11:26 | FAST ---
SHIFT START DATE/TIME: 02/03/2018 07:00 (CDT) SHIFT END DATE/TIME: 02/03/2018 19:00 (CDT) NAME FRANCE BAUMANN DATE OF : 1945 DATE OF ADMISSION: 01/31/2018 15:46 (CDT) PHONE: AGE: 72 N# [id number] GENDER: Female ENCOUNTER PHYSICIAN: Dr. Luke Major M.D. ADMISSION DIAGNOSIS: - Orthopaedic Disorders 08 - Pelvic Fracture (08.3) pubic ramus fx, humerus fx, hip pain. EATING: EATING - STEP 1: Does the patient require assistance when eating? Yes. EATING - STEP 2: Does the patient require the assistance of a helper? Yes. EATING - STEP 3: Does the patient perform half or more of the eating tasks? Yes. EATING - STEP 4: Does the patient need only supervision, cuing, coaxing OR help to apply an orthosis OR help to cut fo od, open containers, pour liquids, or butter bread? Yes. EATING - SCORE: 5-SUP GROOMING: Comb/brush hair Oral care Wash, rinse, and dry face Wash, rinse, and dry hands GROOMING - STEP 1: Does the patient require assistance when grooming? Yes. GROOMING - STEP 2: Does the patient require the assistance of a helper? Yes. GROOMING - STEP 3: How much assistance does the patient require from the helper? Only prior equipment preparation/set up from the helper GROOMING - SCORE: 5-SUP BATHING: Activity did not occur on this shift BATHING - SCORE: 0-UNK DRESSING - UPPER BODY: Activity did not occur on this shift ARTICLES SCORE Total number of steps: 0 DRESSING - UPPER BODY - SCORE: 0-UNK DRESSING - LOWER BODY: Activity did not occur on this shift ARTICLES SCORE Total number of steps: 0 DRESSING - LOWER BODY - SCORE: 0-UNK TOILETING: TOILETING - STEP 1: Does the patient require assistance with toileting? Yes. TOILETING - STEP 2: Does the patient require the assistance of a helper? Yes. TOILETING - STEP 3: How much assistance does the patient require from the helper? Hands-on assistance from the helper TOILETING - STEP 4: Of the 3 tasks: 1) Adjusting clothing prior to use, 2) Cleansing of perineal area, 3) Adjusting clot feroz after use; How many tasks does the patient perform WITHOUT assistance of the helper? Two tasks TOILETING - SCORE: 3-MOD BLADDER MANAGEMENT: BLADDER MANAGEMENT - STEP 1: Does the patient control the bladder completely and intentionally without equipment or devices or med ications, and is always continent? No. BLADDER MANAGEMENT - STEP 2: Does the patient require the assistance of a helper? Yes. BLADDER MANAGEMENT - STEP 3: How much assistance does the patient require from the helper? Only supervision, stand-by, cuing, or c oaxing BLADDER MANAGEMENT - SCORE: 5-SUP BLADDER MANAGEMENT - FREQUENCY OF ACCIDENTS: BLADDER MANAGEMENT(FA) - STEP 1: How many accidents has the patient had during the current shift? 0 BOWEL MANAGEMENT: Activity did not occur on this shift BOWEL MANAGEMENT - SCORE: 7-IND BOWEL MANAGEMENT - FREQUENCY OF ACCIDENTS: BOWEL MANAGEMENT(FA) - STEP 1: How many accidents has the patient had during the current shift? 0 TRANSFERS: BED, CHAIR, WHEELCHAIR: TRANSFERS: BED, CHAIR, WHEELCHAIR - STEP 1: Does the patient require assistance with bed, chair, or wheelchair transfers? Yes. TRANSFERS: BED, CHAIR, WHEELCHAIR - STEP 2: Does the patient require the assistance of a helper? Yes. TRANSFERS: BED, CHAIR, WHEELCHAIR - STEP 3: How much assistance does the patient require from the helper? Steadying/guiding assistance TRANSFERS: BED, CHAIR, WHEELCHAIR - SCORE: 4-MIN TRANSFERS: TOILET: TRANSFERS: TOILET - STEP 1: Does the patient require assistance with toilet transfers? Yes. TRANSFERS: TOILET - STEP 2: Does the patient require the assistance of a helper? No. Patient only requires an assistive device sahni ch as a grab bar or special seat, OR s/he takes more than reasonable time to perform toilet transfers , OR there is a safety concern when s/he performs toilet transfers. TRANSFERS: TOILET - SCORE: 6-TINO TRANSFERS: SHOWER: Activity did not occur on this shift TRANSFERS: SHOWER - SCORE: 0-UNK TRANSFERS: TUB: Activity did not occur on this shift TRANSFERS: TUB - SCORE: 0-UNK LOCOMOTION: WALK: Activity did not occur on this shift LOCOMOTION: WALK - SCORE: 0-UNK LOCOMOTION: WHEELCHAIR: LOCOMOTION: WHEELCHAIR - STEP 1: Does the patient need help to go 150 feet in a wheelchair? Yes. LOCOMOTION: WHEELCHAIR - STEP 2: How much assistance does the patient need from the helper? Only incidental help such as around corner s or over thresholds LOCOMOTION: WHEELCHAIR - SCORE: 4-MIN COMPREHENSION: COMPREHENSION: TYPE: Both COMPREHENSION - STEP 1: Does the patient require help to understand complex and abstract ideas (such as current events, finan shea, discharge planning, medical issues, relationships, etc)? Yes. COMPREHENSION - STEP 2: Does the patient require help to understand questions or statements about basic needs or ideas (such as hunger, thirst, sleep, safety, daily schedule, room location, or discomfort) half or more of the t renee? No. COMPREHENSION - STEP 3: How often does the patient need help to understand directions and conversation about basic needs? Les s than 10% of the time COMPREHENSION - SCORE: 5-SUP EXPRESSION EXPRESSION - STEP 1: Does the patient require help expressing complex and abstract ideas (such as current events, finances , discharge planning, medical issues, relationships, etc)? Yes. EXPRESSION - STEP 2: Does the patient require help to express basic necessities or ideas (such as hunger, thirst, sleep, s afety, daily schedule, room location, or discomfort) half or more of the time? No. EXPRESSION - STEP 3: How often does the patient need help to express directions and conversation about basic needs? Less t alfonso 10% of the time EXPRESSION - SCORE: 5-SUP SOCIAL INTERACTION: SOCIAL INTERACTION - STEP 1: Does the patient require a helper to interact with others in social and therapeutic situations? No. SOCIAL INTERACTION - STEP 2: Does the patient need extra time in social situations, OR does s/he interact with staff, other patien ts, and family members ONLY in structured environments, OR does s/he require medication for social in teraction? Yes, patient needs extra time SOCIAL INTERACTION - SCORE: 6-TINO PROBLEM SOLVING: PROBLEM SOLVING - STEP 1: Does the patient need help to solve complex problems such as managing a checking account or confronti ng interpersonal problems? No. PROBLEM SOLVING - STEP 2: Does the patient require extra time to make decisions or solve problems, OR does s/he have slight dif ficulty reading, initiating, or self-correcting in unfamiliar situations? Yes, patient needs extra ti me. PROBLEM SOLVING - SCORE: 6-TINO MEMORY: MEMORY - STEP 1: Does the patient need help to remember frequently encountered people, daily routines, and executing r equests? No. MEMORY - STEP 2: Does the patient have slight difficulty recognizing frequently encountered people, daily routines, or executing requests without the need for repetition or using self-initiated or environmental cues to remember? Yes. MEMORY - SCORE: 6-TINO SIGNATURE PANEL: The following modified sections: Eating - Score, Grooming - Score, Bathing - Score, Dressing - Upper Body - Score, Dressing - Lower Body - Score, Toileting - Score, Bladder Management - Score, Bowel Man agement - Score, Transfers: Bed, Chair, Wheelchair - Score, Transfers: Toilet - Score, Transfers: Shonna wer - Score, Transfers: Tub - Score, Locomotion: Walk - Score, Locomotion: Wheelchair - Score, Compre hension - Score, Expression - Score, Social Interaction - Score, Problem Solving - Score, Memory - Sc ore were [electronically] signed by Ping Sharp C.N.A. on Sat Feb 04 2018 10:27:43 T-0500 (Centra [place] Daylight Time)
--- NOTE | 2018-02-04 11:42 | FAST ---
SHIFT START DATE/TIME: 02/04/2018 07:00 (CDT) SHIFT END DATE/TIME: 02/04/2018 19:00 (CDT) NAME FRANCE BAUMANN DATE OF : 1945 DATE OF ADMISSION: 01/31/2018 15:46 (CDT) PHONE: AGE: 72 N# [id number] GENDER: Female ENCOUNTER PHYSICIAN: Dr. Luke Major M.D. ADMISSION DIAGNOSIS: - Orthopaedic Disorders 08 - Pelvic Fracture (08.3) pubic ramus fx, humerus fx, hip pain. EATING: EATING - STEP 1: Does the patient require assistance when eating? Yes. EATING - STEP 2: Does the patient require the assistance of a helper? Yes. EATING - STEP 3: Does the patient perform half or more of the eating tasks? Yes. EATING - STEP 4: Does the patient need only supervision, cuing, coaxing OR help to apply an orthosis OR help to cut fo od, open containers, pour liquids, or butter bread? Yes. EATING - SCORE: 5-SUP GROOMING: Comb/brush hair Oral care Wash, rinse, and dry face Wash, rinse, and dry hands GROOMING - STEP 1: Does the patient require assistance when grooming? Yes. GROOMING - STEP 2: Does the patient require the assistance of a helper? Yes. GROOMING - STEP 3: How much assistance does the patient require from the helper? Only prior equipment preparation/set up from the helper GROOMING - SCORE: 5-SUP BATHING: Activity did not occur on this shift BATHING - SCORE: 0-UNK DRESSING - UPPER BODY: Activity did not occur on this shift ARTICLES SCORE Total number of steps: 0 DRESSING - UPPER BODY - SCORE: 0-UNK DRESSING - UPPER BODY - COMMENTS: Pt slept in her clothes DRESSING - LOWER BODY: Patient is not dressing in public clothing ARTICLES SCORE Total number of steps: 0 DRESSING - LOWER BODY - SCORE: 0-UNK DRESSING - LOWER BODY - COMMENTS: Pt slept in her clothes TOILETING: TOILETING - STEP 1: Does the patient require assistance with toileting? Yes. TOILETING - STEP 2: Does the patient require the assistance of a helper? Yes. TOILETING - STEP 3: How much assistance does the patient require from the helper? Hands-on assistance from the helper TOILETING - STEP 4: Of the 3 tasks: 1) Adjusting clothing prior to use, 2) Cleansing of perineal area, 3) Adjusting clot feroz after use; How many tasks does the patient perform WITHOUT assistance of the helper? Two tasks TOILETING - SCORE: 3-MOD BLADDER MANAGEMENT: BLADDER MANAGEMENT - STEP 1: Does the patient control the bladder completely and intentionally without equipment or devices or med ications, and is always continent? No. BLADDER MANAGEMENT - STEP 2: Does the patient require the assistance of a helper? Yes. BLADDER MANAGEMENT - STEP 3: How much assistance does the patient require from the helper? Only supervision, stand-by, cuing, or c oaxing BLADDER MANAGEMENT - SCORE: 5-SUP BLADDER MANAGEMENT - FREQUENCY OF ACCIDENTS: BLADDER MANAGEMENT(FA) - STEP 1: How many accidents has the patient had during the current shift? 0 BOWEL MANAGEMENT: Activity did not occur on this shift BOWEL MANAGEMENT - SCORE: 7-IND BOWEL MANAGEMENT - FREQUENCY OF ACCIDENTS: BOWEL MANAGEMENT(FA) - STEP 1: How many accidents has the patient had during the current shift? 0 TRANSFERS: BED, CHAIR, WHEELCHAIR: TRANSFERS: BED, CHAIR, WHEELCHAIR - STEP 1: Does the patient require assistance with bed, chair, or wheelchair transfers? Yes. TRANSFERS: BED, CHAIR, WHEELCHAIR - STEP 2: Does the patient require the assistance of a helper? Yes. TRANSFERS: BED, CHAIR, WHEELCHAIR - STEP 3: How much assistance does the patient require from the helper? Steadying/guiding assistance TRANSFERS: BED, CHAIR, WHEELCHAIR - SCORE: 4-MIN TRANSFERS: TOILET: TRANSFERS: TOILET - STEP 1: Does the patient require assistance with toilet transfers? Yes. TRANSFERS: TOILET - STEP 2: Does the patient require the assistance of a helper? Yes. TRANSFERS: TOILET - STEP 3: How much assistance does the patient require from the helper? Patient performs half or more of the tr ansferring tasks TRANSFERS: TOILET - STEP 4: Does the patient need only incidental help such as contact guard or steadying during toilet transfer? Yes. TRANSFERS: TOILET - SCORE: 4-MIN TRANSFERS: SHOWER: Activity did not occur on this shift TRANSFERS: SHOWER - SCORE: 0-UNK TRANSFERS: TUB: Activity did not occur on this shift TRANSFERS: TUB - SCORE: 0-UNK LOCOMOTION: WALK: Activity did not occur on this shift LOCOMOTION: WALK - SCORE: 0-UNK LOCOMOTION: WHEELCHAIR: LOCOMOTION: WHEELCHAIR - STEP 1: Does the patient need help to go 150 feet in a wheelchair? Yes. LOCOMOTION: WHEELCHAIR - STEP 2: How much assistance does the patient need from the helper? Only incidental help such as around corner s or over thresholds LOCOMOTION: WHEELCHAIR - SCORE: 4-MIN COMPREHENSION: COMPREHENSION: TYPE: Both COMPREHENSION - STEP 1: Does the patient require help to understand complex and abstract ideas (such as current events, finan shea, discharge planning, medical issues, relationships, etc)? Yes. COMPREHENSION - STEP 2: Does the patient require help to understand questions or statements about basic needs or ideas (such as hunger, thirst, sleep, safety, daily schedule, room location, or discomfort) half or more of the t renee? No. COMPREHENSION - STEP 3: How often does the patient need help to understand directions and conversation about basic needs? Les s than 10% of the time COMPREHENSION - SCORE: 5-SUP EXPRESSION EXPRESSION: TYPE: Both EXPRESSION - STEP 1: Does the patient require help expressing complex and abstract ideas (such as current events, finances , discharge planning, medical issues, relationships, etc)? Yes. EXPRESSION - STEP 2: Does the patient require help to express basic necessities or ideas (such as hunger, thirst, sleep, s afety, daily schedule, room location, or discomfort) half or more of the time? No. EXPRESSION - STEP 3: How often does the patient need help to express directions and conversation about basic needs? Less t alfonso 10% of the time EXPRESSION - SCORE: 5-SUP SOCIAL INTERACTION: SOCIAL INTERACTION - STEP 1: Does the patient require a helper to interact with others in social and therapeutic situations? No. SOCIAL INTERACTION - STEP 2: Does the patient need extra time in social situations, OR does s/he interact with staff, other patien ts, and family members ONLY in structured environments, OR does s/he require medication for social in teraction? Yes, patient needs extra time SOCIAL INTERACTION - SCORE: 6-TINO PROBLEM SOLVING: PROBLEM SOLVING - STEP 1: Does the patient need help to solve complex problems such as managing a checking account or confronti ng interpersonal problems? No. PROBLEM SOLVING - STEP 2: Does the patient require extra time to make decisions or solve problems, OR does s/he have slight dif ficulty reading, initiating, or self-correcting in unfamiliar situations? Yes, patient needs extra ti me. PROBLEM SOLVING - SCORE: 6-TINO MEMORY: MEMORY - STEP 1: Does the patient need help to remember frequently encountered people, daily routines, and executing r equests? No. MEMORY - STEP 2: Does the patient have slight difficulty recognizing frequently encountered people, daily routines, or executing requests without the need for repetition or using self-initiated or environmental cues to remember? Yes. MEMORY - SCORE: 6-TINO SIGNATURE PANEL: The following modified sections: Eating - Score, Grooming - Score, Bathing - Score, Dressing - Upper Body - Score, Dressing - Lower Body - Score, Dressing - Upper Body - Comments:, Dressing - Lower Body - Comments:, Toileting - Score, Bladder Management - Score, Bowel Management - Score, Transfers: Bed , Chair, Wheelchair - Score, Transfers: Toilet - Score, Transfers: Shower - Score, Transfers: Tub - S core, Locomotion: Walk - Score, Locomotion: Wheelchair - Score, Comprehension - Score, Expression - S core, Social Interaction - Score, Problem Solving - Score, Memory - Score were [electronically] chapo d by Ping Sharp C.N.Primo on Sat Feb 04 2018 10:44:02 [facility]-0500 (Central Daylight Time)
--- NOTE | 2018-02-04 11:44 | P.PN ---
Subjective Date of Service: 02/04/18 Chief Complaint: CONSTIPATED FROM MEDS Subjective: Improving (STILL HIP PAIN.) SHE IS A LOT BETTER NO PAIN UNLESS MOVES. WILL DO BMD LATER. Review of Systems 10-point ROS is otherwise unremarkable Physical Examination - Vital Signs Temperature: 96.4 F Blood Pressure: 131/67 Pulse: 75 Respirations: 20 Pulse Ox (%): 98 - Physical Exam General: Alert, Oriented x3, Mild distress, Other (WALKS WITH SIDE WALKER. STILL HAS TO SIT EVERY FEW STEPS) HEENT: Atraumatic, PERRLA, EOMI Neck: Supple, JVD not distended Respiratory: Clear to auscultation bilaterally, Normal air movement Cardiovascular: Regular rate/rhythm, Normal S1 S2 Gastrointestinal: Normal bowel sounds, No tenderness Musculoskeletal: No tenderness Integumentary: No rashes Neurological: Normal speech, Normal tone, Normal affect Lymphatics: No axilla or inguinal lymphadenopathy - Studies Medications List Reviewed: Yes Assessment And Plan - Current Problems (Diagnosis) (1) Constipation Current Visit: Yes Status: Acute Plan: MOM AND MIRALAX STOP NORCO START TRAMADOL (2) Hypokalemia Current Visit: Yes Status: Acute (3) Pubic ramus fracture Onset Date: 02/02/18 Current Visit: Yes Status: Acute Plan: FU PT PAIN MX HEALING IN TWO MNTHS. OT PT PAIN MRELIEV CHANGE TO ULTRAM. RESUME PT. Qualifiers: Encounter type: subsequent encounter Fracture type: closed Laterality: right Fracture healing: with routine healing Qualified Code(s): S32.591D - Other specified fracture of right pubis, subsequent encounter for fracture with routine healing
--- NOTE | 2018-02-04 14:12 | FAST ---
ENCOUNTER DATE AND TIME: 02/04/2018 08:00 (CDT) NAME FRANCE BAUMANN DATE OF : 1945 DATE OF ADMISSION: 01/31/2018 15:46 (CDT) PHONE: AGE: 72 N# [id number] GENDER: Female ENCOUNTER PHYSICIAN: Dr. Luke Major M.D. ADMISSION DIAGNOSIS: - Orthopaedic Disorders 08 - Pelvic Fracture (08.3) pubic ramus fx, humerus fx, hip pain. EATING: Activity did not occur on this shift EATING - SCORE: 0-UNK GROOMING: Wash, rinse, and dry hands GROOMING - STEP 1: Does the patient require assistance when grooming? Yes. GROOMING - STEP 2: Does the patient require the assistance of a helper? Yes. GROOMING - STEP 3: How much assistance does the patient require from the helper? Incidental touching assistance from the helper while grooming GROOMING - SCORE: 4-MIN BATHING: Activity did not occur on this shift BATHING - SCORE: 0-UNK DRESSING - UPPER BODY: Activity did not occur on this shift ARTICLES SCORE Total number of steps: 0 DRESSING - UPPER BODY - SCORE: 0-UNK DRESSING - LOWER BODY: Activity did not occur on this shift ARTICLES SCORE Total number of steps: 0 DRESSING - LOWER BODY - SCORE: 0-UNK TOILETING: TOILETING - STEP 1: Does the patient require assistance with toileting? Yes. TOILETING - STEP 2: Does the patient require the assistance of a helper? Yes. TOILETING - STEP 3: How much assistance does the patient require from the helper? Hands-on assistance from the helper TOILETING - STEP 4: Of the 3 tasks: 1) Adjusting clothing prior to use, 2) Cleansing of perineal area, 3) Adjusting clot feroz after use; How many tasks does the patient perform WITHOUT assistance of the helper? Three tasks with steadying assistance from the helper TOILETING - SCORE: 4-MIN BLADDER MANAGEMENT: Activity did not occur on this shift BLADDER MANAGEMENT - SCORE: 7-IND BOWEL MANAGEMENT: Activity did not occur on this shift BOWEL MANAGEMENT - SCORE: 7-IND TRANSFERS: BED, CHAIR, WHEELCHAIR: Activity did not occur on this shift TRANSFERS: BED, CHAIR, WHEELCHAIR - SCORE: 0-UNK TRANSFERS: TOILET: TRANSFERS: TOILET - STEP 1: Does the patient require assistance with toilet transfers? Yes. TRANSFERS: TOILET - STEP 2: Does the patient require the assistance of a helper? Yes. TRANSFERS: TOILET - STEP 3: How much assistance does the patient require from the helper? Patient performs half or more of the tr ansferring tasks TRANSFERS: TOILET - STEP 4: Does the patient need only incidental help such as contact guard or steadying during toilet transfer? Yes. TRANSFERS: TOILET - SCORE: 4-MIN TRANSFERS: SHOWER: Activity did not occur on this shift TRANSFERS: SHOWER - SCORE: 0-UNK TRANSFERS: TUB: Activity did not occur on this shift TRANSFERS: TUB - SCORE: 0-UNK LOCOMOTION: WALK: Activity did not occur on this shift LOCOMOTION: WALK - SCORE: 0-UNK LOCOMOTION: WHEELCHAIR: Activity did not occur on this shift LOCOMOTION: WHEELCHAIR - SCORE: 0-UNK LOCOMOTION: STAIRS: Activity did not occur on this shift LOCOMOTION: STAIRS - SCORE: 0-UNK COMPREHENSION: COMPREHENSION - STEP 1: Does the patient require help to understand complex and abstract ideas (such as current events, finan shea, discharge planning, medical issues, relationships, etc)? No. COMPREHENSION - STEP 2: Does the patient need extra time, require an assistive device (such as glasses, hearing aids, or an a ugmentative communication system), OR does s/he have mild difficulty expressing complex and abstract ideas (including mild dysarthria or mild word-finding problems)? No. COMPREHENSION - SCORE: 7-IND EXPRESSION EXPRESSION: TYPE: Non-Vocal EXPRESSION - STEP 1: Does the patient require help expressing complex and abstract ideas (such as current events, finances , discharge planning, medical issues, relationships, etc)? No. EXPRESSION - STEP 2: Does the patient need extra time, require an assistive device (such as augmentive communication syste m or a communication board), OR does s/he have mild difficulty expressing complex and abstract ideas (including mild dysarthria or mild word-find problems)? No. EXPRESSION - SCORE: 7-IND SOCIAL INTERACTION: SOCIAL INTERACTION - STEP 1: Does the patient require a helper to interact with others in social and therapeutic situations? No. SOCIAL INTERACTION - STEP 2: Does the patient need extra time in social situations, OR does s/he interact with staff, other patien ts, and family members ONLY in structured environments, OR does s/he require medication for social in teraction? No. SOCIAL INTERACTION - SCORE: 7-IND PROBLEM SOLVING: PROBLEM SOLVING - STEP 1: Does the patient need help to solve complex problems such as managing a checking account or confronti ng interpersonal problems? No. PROBLEM SOLVING - STEP 2: Does the patient require extra time to make decisions or solve problems, OR does s/he have slight dif ficulty reading, initiating, or self-correcting in unfamiliar situations? No. PROBLEM SOLVING - SCORE: 7-IND MEMORY: MEMORY - STEP 1: Does the patient need help to remember frequently encountered people, daily routines, and executing r equests? No. MEMORY - STEP 2: Does the patient have slight difficulty recognizing frequently encountered people, daily routines, or executing requests without the need for repetition or using self-initiated or environmental cues to remember? No. MEMORY - SCORE: 7-IND SIGNATURE PANEL: The following modified sections: Eating - Score, Grooming - Score, Bathing - Score, Dressing - Upper Body - Score, Dressing - Lower Body - Score, Toileting - Score, Transfers: Bed, Chair, Wheelchair - S core, Transfers: Toilet - Score, Transfers: Shower - Score, Transfers: Tub - Score, Comprehension - S core, Expression - Score, Social Interaction - Score, Problem Solving - Score, Memory - Score were [e lectronically] signed by JERRY Santos on Sat Feb 04 2018 13:13:33 [email or web address] ([facility])
[2018-02-05] MEDS: HYDROCODONE/APAP 7.5/325 MG TAB PO PRN ×2 (02:27→10:13)
--- NOTE | 2018-02-05 04:46 | FAST ---
SHIFT START DATE/TIME: 02/04/2018 19:00 (CDT) SHIFT END DATE/TIME: 02/05/2018 07:00 (CDT) NAME FRANCE BAUMANN DATE OF : 1945 DATE OF ADMISSION: 01/31/2018 15:46 (CDT) PHONE: AGE: 72 N# [id number] GENDER: Female ENCOUNTER PHYSICIAN: Dr. Luke Major M.D. ADMISSION DIAGNOSIS: - Orthopaedic Disorders 08 - Pelvic Fracture (08.3) pubic ramus fx, humerus fx, hip pain. EATING: EATING - STEP 1: Does the patient require assistance when eating? Yes. EATING - STEP 2: Does the patient require the assistance of a helper? Yes. EATING - STEP 3: Does the patient perform half or more of the eating tasks? Yes. EATING - STEP 4: Does the patient need only supervision, cuing, coaxing OR help to apply an orthosis OR help to cut fo od, open containers, pour liquids, or butter bread? Yes. EATING - SCORE: 5-SUP GROOMING: Wash, rinse, and dry face Wash, rinse, and dry hands GROOMING - STEP 1: Does the patient require assistance when grooming? Yes. GROOMING - STEP 2: Does the patient require the assistance of a helper? Yes. GROOMING - STEP 3: How much assistance does the patient require from the helper? More than incidental help GROOMING - STEP 4: How many grooming tasks does the patient perform WITHOUT the assistance of the helper? Half or more o f the grooming tasks GROOMING - SCORE: 3-MOD BATHING: Activity did not occur on this shift BATHING - SCORE: 0-UNK DRESSING - UPPER BODY: Patient is not dressing in public clothing ARTICLES SCORE Total number of steps: 0 DRESSING - UPPER BODY - SCORE: 0-UNK DRESSING - LOWER BODY: Patient is not dressing in public clothing ARTICLES SCORE Total number of steps: 0 DRESSING - LOWER BODY - SCORE: 0-UNK TOILETING: TOILETING - STEP 1: Does the patient require assistance with toileting? Yes. TOILETING - STEP 2: Does the patient require the assistance of a helper? Yes. TOILETING - STEP 3: How much assistance does the patient require from the helper? Hands-on assistance from the helper TOILETING - STEP 4: Of the 3 tasks: 1) Adjusting clothing prior to use, 2) Cleansing of perineal area, 3) Adjusting clot feroz after use; How many tasks does the patient perform WITHOUT assistance of the helper? One task TOILETING - SCORE: 2-MAX BLADDER MANAGEMENT: BLADDER MANAGEMENT - STEP 1: Does the patient control the bladder completely and intentionally without equipment or devices or med ications, and is always continent? No. BLADDER MANAGEMENT - STEP 2: Does the patient require the assistance of a helper? Yes. BLADDER MANAGEMENT - STEP 3: How much assistance does the patient require from the helper? Patient requires contact assistance fro m the helper BLADDER MANAGEMENT - STEP 4: How much contact assistance does the patient require from the helper? Patient requires minimal assist ance to maintain an external device - by positioning, and the patient performs 75% or more of bladder management tasks, while the helper provides less than 25% of the assistance to position patient on / off bedpan BLADDER MANAGEMENT - SCORE: 4-MIN BLADDER MANAGEMENT - FREQUENCY OF ACCIDENTS: BLADDER MANAGEMENT(FA) - STEP 1: How many accidents has the patient had during the current shift? 0 BOWEL MANAGEMENT: BOWEL MANAGEMENT - STEP 1: Does the patient control bowels completely and intentionally without equipment devices or medications AND is always continent? No. BOWEL MANAGEMENT - STEP 2: Does the patient require the assistance of a helper? Yes. BOWEL MANAGEMENT - STEP 3: How much assistance does the patient require from the helper? [place] provides less than 25% assistanc e to position patient on / off bedpan BOWEL MANAGEMENT - SCORE: 4-MIN BOWEL MANAGEMENT - FREQUENCY OF ACCIDENTS: BOWEL MANAGEMENT(FA) - STEP 1: How many accidents has the patient had during the current shift? 0 TRANSFERS: BED, CHAIR, WHEELCHAIR: TRANSFERS: BED, CHAIR, WHEELCHAIR - STEP 1: Does the patient require assistance with bed, chair, or wheelchair transfers? Yes. TRANSFERS: BED, CHAIR, WHEELCHAIR - STEP 2: Does the patient require the assistance of a helper? Yes. TRANSFERS: BED, CHAIR, WHEELCHAIR - STEP 3: How much assistance does the patient require from the helper? Lifting of the legs TRANSFERS: BED, CHAIR, WHEELCHAIR - STEP 4: How many legs does the patient require the helper to lift? both legs TRANSFERS: BED, CHAIR, WHEELCHAIR - SCORE: 3-MOD TRANSFERS: TOILET: TRANSFERS: TOILET - STEP 1: Does the patient require assistance with toilet transfers? Yes. TRANSFERS: TOILET - STEP 2: Does the patient require the assistance of a helper? Yes. TRANSFERS: TOILET - STEP 3: How much assistance does the patient require from the helper? Patient performs half or more of the tr ansferring tasks TRANSFERS: TOILET - STEP 4: Does the patient need only incidental help such as contact guard or steadying during toilet transfer? No. Patient needs more than incidental help TRANSFERS: TOILET - SCORE: 3-MOD TRANSFERS: SHOWER: Activity did not occur on this shift TRANSFERS: SHOWER - SCORE: 0-UNK TRANSFERS: TUB: Activity did not occur on this shift TRANSFERS: TUB - SCORE: 0-UNK LOCOMOTION: WALK: Activity did not occur on this shift LOCOMOTION: WALK - SCORE: 0-UNK LOCOMOTION: WHEELCHAIR: Activity did not occur on this shift LOCOMOTION: WHEELCHAIR - SCORE: 0-UNK COMPREHENSION: COMPREHENSION: TYPE: Both COMPREHENSION - STEP 1: Does the patient require help to understand complex and abstract ideas (such as current events, finan shea, discharge planning, medical issues, relationships, etc)? No. COMPREHENSION - STEP 2: Does the patient need extra time, require an assistive device (such as glasses, hearing aids, or an a ugmentative communication system), OR does s/he have mild difficulty expressing complex and abstract ideas (including mild dysarthria or mild word-finding problems)? Yes. COMPREHENSION - SCORE: 6-TINO EXPRESSION EXPRESSION: TYPE: Both EXPRESSION - STEP 1: Does the patient require help expressing complex and abstract ideas (such as current events, finances , discharge planning, medical issues, relationships, etc)? No. EXPRESSION - STEP 2: Does the patient need extra time, require an assistive device (such as augmentive communication syste m or a communication board), OR does s/he have mild difficulty expressing complex and abstract ideas (including mild dysarthria or mild word-find problems)? Yes. EXPRESSION - SCORE: 6-TINO SOCIAL INTERACTION: SOCIAL INTERACTION - STEP 1: Does the patient require a helper to interact with others in social and therapeutic situations? No. SOCIAL INTERACTION - STEP 2: Does the patient need extra time in social situations, OR does s/he interact with staff, other patien ts, and family members ONLY in structured environments, OR does s/he require medication for social in teraction? Yes, patient needs extra time SOCIAL INTERACTION - SCORE: 6-TINO PROBLEM SOLVING: PROBLEM SOLVING - STEP 1: Does the patient need help to solve complex problems such as managing a checking account or confronti ng interpersonal problems? No. PROBLEM SOLVING - STEP 2: Does the patient require extra time to make decisions or solve problems, OR does s/he have slight dif ficulty reading, initiating, or self-correcting in unfamiliar situations? Yes, patient needs extra ti me. PROBLEM SOLVING - SCORE: 6-TINO MEMORY: MEMORY - STEP 1: Does the patient need help to remember frequently encountered people, daily routines, and executing r equests? No. MEMORY - STEP 2: Does the patient have slight difficulty recognizing frequently encountered people, daily routines, or executing requests without the need for repetition or using self-initiated or environmental cues to remember? Yes. MEMORY - SCORE: 6-TINO SIGNATURE PANEL: The following modified sections: Eating - Score, Grooming - Score, Bathing - Score, Dressing - Upper Body - Score, Dressing - Lower Body - Score, Toileting - Score, Bladder Management - Score, Bowel Man agement - Score, Transfers: Bed, Chair, Wheelchair - Score, Transfers: Toilet - Score, Transfers: Shonna wer - Score, Transfers: Tub - Score, Locomotion: Walk - Score, Locomotion: Wheelchair - Score, Compre hension - Score, Expression - Score, Social Interaction - Score, Problem Solving - Score, Memory - Sc ore were [electronically] signed by Angel MarshallNFlora on TueFeb 05 2018 03:48:15 T-0500 ( Central Daylight Time)
[2018-02-05] MEDS: BISOPROLOL 5 MG TABLET PO SCH (08:00)
[2018-02-05] MEDS: TRIAMCINOLONE 0.1% OINT 15 GM TOP SCH ×2 (08:00→20:51)
[2018-02-05] MEDS: FISH OIL PO SCH (08:00)
[2018-02-05] MEDS: POTASSIUM CL SA 10 MEQ TAB PO SCH ×2 (08:15→20:51)
[2018-02-05] MEDS: ASCORBIC ACID 500 MG TABLET PO SCH ×2 (08:16→20:51)
[2018-02-05] MEDS: CYANOCOBALAMIN 1,000 MCG TAB PO SCH (08:16)
[2018-02-05] MEDS: VITAMIN D 5,000 UNIT CAP PO SCH (08:16)
[2018-02-05] MEDS: GABAPENTIN 300 MG CAP PO SCH ×3 (08:17→20:51)
[2018-02-05] MEDS: ASPIRIN EC 81 MG TAB PO SCH (08:17)
[2018-02-05] MEDS: SPIRONOLACTONE 25 MG TABLET PO SCH (08:18)
[2018-02-05] MEDS: PANTOPRAZOLE 40MG TABLET PO SCH (08:19)
--- NOTE | 2018-02-05 14:23 | FAST ---
SHIFT START DATE/TIME: 02/05/2018 07:00 (CDT) SHIFT END DATE/TIME: 02/05/2018 19:00 (CDT) NAME FRANCE BAUMANN DATE OF : 1945 DATE OF ADMISSION: 01/31/2018 15:46 (CDT) PHONE: AGE: 72 N# [id number] GENDER: Female ENCOUNTER PHYSICIAN: Dr. Luke Major M.D. ADMISSION DIAGNOSIS: - Orthopaedic Disorders 08 - Pelvic Fracture (08.3) pubic ramus fx, humerus fx, hip pain. EATING: EATING - STEP 1: Does the patient require assistance when eating? Yes. EATING - STEP 2: Does the patient require the assistance of a helper? Yes. EATING - STEP 3: Does the patient perform half or more of the eating tasks? Yes. EATING - STEP 4: Does the patient need only supervision, cuing, coaxing OR help to apply an orthosis OR help to cut fo od, open containers, pour liquids, or butter bread? Yes. EATING - SCORE: 5-SUP GROOMING: GROOMING - STEP 1: Does the patient require assistance when grooming? Yes. GROOMING - STEP 2: Does the patient require the assistance of a helper? Yes. GROOMING - STEP 3: How much assistance does the patient require from the helper? Only prior equipment preparation/set up from the helper GROOMING - SCORE: 5-SUP BATHING: Activity did not occur on this shift BATHING - SCORE: 0-UNK DRESSING - UPPER BODY: T-shirt/pullover shirt (four steps) ARTICLES SCORE Total number of steps: 4 DRESSING - UPPER BODY - STEP 1: Does the patient require help when dressing above the waist? Yes. DRESSING - UPPER BODY - STEP 2: Does the patient require the assistance of a helper? Yes. DRESSING - UPPER BODY - STEP 3: Does the helper touch the patient while dressing? Yes. DRESSING - UPPER BODY - STEP 4: How many of the total steps does the patient complete on his/her own? 0 DRESSING - UPPER BODY - STEP 5: Does Patient require total assistance for dressing above the waist such as the helper holding clothin g and performing basically all the activities? Yes. DRESSING - UPPER BODY - SCORE: 1-DEP DRESSING - UPPER BODY - COMMENTS: Pt wears immobilizer on right arm DRESSING - LOWER BODY: Elastic waist pants (three steps) Underwear (three steps) ARTICLES SCORE Total number of steps: 6 DRESSING - LOWER BODY - STEP 1: Does the patient require help when dressing below the waist? Yes. DRESSING - LOWER BODY - STEP 2: Does the patient require the assistance of a helper? Yes. DRESSING - LOWER BODY - STEP 3: Does the helper touch the patient while dressing? Yes. DRESSING - LOWER BODY - STEP 4: How many of the total steps does the patient complete on his/her own? 4 DRESSING - LOWER BODY - SCORE: 3-MOD TOILETING: TOILETING - STEP 1: Does the patient require assistance with toileting? Yes. TOILETING - STEP 2: Does the patient require the assistance of a helper? Yes. TOILETING - STEP 3: How much assistance does the patient require from the helper? Hands-on assistance from the helper TOILETING - STEP 4: Of the 3 tasks: 1) Adjusting clothing prior to use, 2) Cleansing of perineal area, 3) Adjusting clot feroz after use; How many tasks does the patient perform WITHOUT assistance of the helper? One task TOILETING - SCORE: 2-MAX BLADDER MANAGEMENT: BLADDER MANAGEMENT - STEP 1: Does the patient control the bladder completely and intentionally without equipment or devices or med ications, and is always continent? No. BLADDER MANAGEMENT - STEP 2: Does the patient require the assistance of a helper? Yes. BLADDER MANAGEMENT - STEP 3: How much assistance does the patient require from the helper? Only supervision, stand-by, cuing, or c oaxing BLADDER MANAGEMENT - SCORE: 5-SUP BLADDER MANAGEMENT - FREQUENCY OF ACCIDENTS: BLADDER MANAGEMENT(FA) - STEP 1: How many accidents has the patient had during the current shift? 0 BOWEL MANAGEMENT: BOWEL MANAGEMENT - STEP 1: Does the patient control bowels completely and intentionally without equipment devices or medications AND is always continent? Yes. BOWEL MANAGEMENT - SCORE: 7-IND BOWEL MANAGEMENT - FREQUENCY OF ACCIDENTS: BOWEL MANAGEMENT(FA) - STEP 1: How many accidents has the patient had during the current shift? 0 TRANSFERS: BED, CHAIR, WHEELCHAIR: TRANSFERS: BED, CHAIR, WHEELCHAIR - STEP 1: Does the patient require assistance with bed, chair, or wheelchair transfers? Yes. TRANSFERS: BED, CHAIR, WHEELCHAIR - STEP 2: Does the patient require the assistance of a helper? Yes. TRANSFERS: BED, CHAIR, WHEELCHAIR - STEP 3: How much assistance does the patient require from the helper? Steadying/guiding assistance TRANSFERS: BED, CHAIR, WHEELCHAIR - SCORE: 4-MIN TRANSFERS: TOILET: TRANSFERS: TOILET - STEP 1: Does the patient require assistance with toilet transfers? Yes. TRANSFERS: TOILET - STEP 2: Does the patient require the assistance of a helper? Yes. TRANSFERS: TOILET - STEP 3: How much assistance does the patient require from the helper? Patient performs half or more of the tr ansferring tasks TRANSFERS: TOILET - STEP 4: Does the patient need only incidental help such as contact guard or steadying during toilet transfer? Yes. TRANSFERS: TOILET - SCORE: 4-MIN TRANSFERS: SHOWER: Activity did not occur on this shift TRANSFERS: SHOWER - SCORE: 0-UNK TRANSFERS: TUB: Activity did not occur on this shift TRANSFERS: TUB - SCORE: 0-UNK LOCOMOTION: WALK: Activity did not occur on this shift LOCOMOTION: WALK - SCORE: 0-UNK LOCOMOTION: WHEELCHAIR: LOCOMOTION: WHEELCHAIR - STEP 1: Does the patient need help to go 150 feet in a wheelchair? Yes. LOCOMOTION: WHEELCHAIR - STEP 2: How much assistance does the patient need from the helper? Only supervision, cuing, or coaxing LOCOMOTION: WHEELCHAIR - SCORE: 5-SUP COMPREHENSION: COMPREHENSION: TYPE: Both COMPREHENSION - STEP 1: Does the patient require help to understand complex and abstract ideas (such as current events, finan shea, discharge planning, medical issues, relationships, etc)? Yes. COMPREHENSION - STEP 2: Does the patient require help to understand questions or statements about basic needs or ideas (such as hunger, thirst, sleep, safety, daily schedule, room location, or discomfort) half or more of the t renee? No. COMPREHENSION - STEP 3: How often does the patient need help to understand directions and conversation about basic needs? Les s than 10% of the time COMPREHENSION - SCORE: 5-SUP EXPRESSION EXPRESSION: TYPE: Both EXPRESSION - STEP 1: Does the patient require help expressing complex and abstract ideas (such as current events, finances , discharge planning, medical issues, relationships, etc)? Yes. EXPRESSION - STEP 2: Does the patient require help to express basic necessities or ideas (such as hunger, thirst, sleep, s afety, daily schedule, room location, or discomfort) half or more of the time? No. EXPRESSION - STEP 3: How often does the patient need help to express directions and conversation about basic needs? Less t alfonso 10% of the time EXPRESSION - SCORE: 5-SUP SOCIAL INTERACTION: SOCIAL INTERACTION - STEP 1: Does the patient require a helper to interact with others in social and therapeutic situations? No. SOCIAL INTERACTION - STEP 2: Does the patient need extra time in social situations, OR does s/he interact with staff, other patien ts, and family members ONLY in structured environments, OR does s/he require medication for social in teraction? Yes, patient needs extra time SOCIAL INTERACTION - SCORE: 6-TINO PROBLEM SOLVING: PROBLEM SOLVING - STEP 1: Does the patient need help to solve complex problems such as managing a checking account or confronti ng interpersonal problems? No. PROBLEM SOLVING - STEP 2: Does the patient require extra time to make decisions or solve problems, OR does s/he have slight dif ficulty reading, initiating, or self-correcting in unfamiliar situations? Yes, patient needs extra ti me. PROBLEM SOLVING - SCORE: 6-TINO MEMORY: MEMORY - STEP 1: Does the patient need help to remember frequently encountered people, daily routines, and executing r equests? No. MEMORY - STEP 2: Does the patient have slight difficulty recognizing frequently encountered people, daily routines, or executing requests without the need for repetition or using self-initiated or environmental cues to remember? No. MEMORY - SCORE: 7-IND SIGNATURE PANEL: The following modified sections: Eating - Score, Grooming - Score, Bathing - Score, Dressing - Upper Body - Score, Dressing - Upper Body - Comments:, Dressing - Lower Body - Score, Toileting - Score, Bl adder Management - Score, Bowel Management - Score, Transfers: Bed, Chair, Wheelchair - Score, Transf ers: Toilet - Score, Transfers: Shower - Score, Transfers: Tub - Score, Locomotion: Walk - Score, Loc omotion: Wheelchair - Score, Comprehension - Score, Expression - Score, Social Interaction - Score, P roblem Solving - Score, Memory - Score were [electronically] signed by Ping Sharp C.N.A. on Tue 13:24:54 T-0500 (Central Daylight Time)
--- NOTE | 2018-02-05 15:49 | P.PN ---
Subjective Date of Service: 02/05/18 Chief Complaint: CONSTIPATED FROM MEDS SHE IS A LOT BETTER NO PAIN UNLESS MOVES. WILL DO BMD LATER. Physical Examination - Vital Signs Temperature: 96.8 F Blood Pressure: 133/61 Pulse: 71 Respirations: 20 Pulse Ox (%): 98 - Studies Medications List Reviewed: Yes Assessment And Plan - Current Problems (Diagnosis) (1) Constipation Current Visit: Yes Status: Acute Plan: MOM AND MIRALAX STOP NORCO START TRAMADOL (2) Hypokalemia Current Visit: Yes Status: Acute (3) Pubic ramus fracture Onset Date: 02/02/18 Current Visit: Yes Status: Acute Plan: FU PT PAIN MX HEALING IN TWO MNTHS. OT PT PAIN MRELIEV CHANGE TO ULTRAM. RESUME PT. Qualifiers: Encounter type: subsequent encounter Fracture type: closed Laterality: right Fracture healing: with routine healing Qualified Code(s): S32.591D - Other specified fracture of right pubis, subsequent encounter for fracture with routine healing
--- NOTE | 2018-02-05 17:34 | RAD REPORT ---
EXAM DESCRIPTION: RAD - Shoulder Right 2 View - 02/05/2018 5:06 pm CLINICAL HISTORY: Right shoulder pain FINDINGS: No significant change has occurred in the moderately displaced humeral neck fracture since January 28. No dislocation is seen
[2018-02-05] MEDS: DOCUSATE NA/SENNA CONC 1 TAB PO PRN (20:51)
--- NOTE | 2018-02-06 03:02 | FAST ---
SHIFT START DATE/TIME: 02/05/2018 19:00 (CDT) SHIFT END DATE/TIME: 02/06/2018 07:00 (CDT) NAME FRANCE BAUMANN DATE OF : 1945 DATE OF ADMISSION: 01/31/2018 15:46 (CDT) PHONE: AGE: 72 N# [id number] GENDER: Female ENCOUNTER PHYSICIAN: Dr. Luke Major M.D. ADMISSION DIAGNOSIS: - Orthopaedic Disorders 08 - Pelvic Fracture (08.3) pubic ramus fx, humerus fx, hip pain. EATING: Activity did not occur on this shift EATING - SCORE: 0-UNK GROOMING: Comb/brush hair Oral care Wash, rinse, and dry face Wash, rinse, and dry hands GROOMING - STEP 1: Does the patient require assistance when grooming? Yes. GROOMING - STEP 2: Does the patient require the assistance of a helper? Yes. GROOMING - STEP 3: How much assistance does the patient require from the helper? Only prior equipment preparation/set up from the helper GROOMING - SCORE: 5-SUP BATHING: Activity did not occur on this shift BATHING - SCORE: 0-UNK DRESSING - UPPER BODY: Patient is not dressing in public clothing ARTICLES SCORE Total number of steps: 0 DRESSING - UPPER BODY - SCORE: 0-UNK DRESSING - LOWER BODY: Patient is not dressing in public clothing ARTICLES SCORE Total number of steps: 0 DRESSING - LOWER BODY - SCORE: 0-UNK TOILETING: TOILETING - STEP 1: Does the patient require assistance with toileting? Yes. TOILETING - STEP 2: Does the patient require the assistance of a helper? Yes. TOILETING - STEP 3: How much assistance does the patient require from the helper? Hands-on assistance from the helper TOILETING - STEP 4: Of the 3 tasks: 1) Adjusting clothing prior to use, 2) Cleansing of perineal area, 3) Adjusting clot feroz after use; How many tasks does the patient perform WITHOUT assistance of the helper? One task TOILETING - SCORE: 2-MAX BLADDER MANAGEMENT: BLADDER MANAGEMENT - STEP 1: Does the patient control the bladder completely and intentionally without equipment or devices or med ications, and is always continent? No. BLADDER MANAGEMENT - STEP 2: Does the patient require the assistance of a helper? Yes. BLADDER MANAGEMENT - STEP 3: How much assistance does the patient require from the helper? Only set-up of equipment - such as plac ing it within reach of the patient or emptying a device - to maintain either satisfactory voiding pat tern or managing an external device, such as an absorbent pad, ileal device, or catheter BLADDER MANAGEMENT - SCORE: 5-SUP BOWEL MANAGEMENT: Activity did not occur on this shift BOWEL MANAGEMENT - SCORE: 7-IND TRANSFERS: BED, CHAIR, WHEELCHAIR: TRANSFERS: BED, CHAIR, WHEELCHAIR - STEP 1: Does the patient require assistance with bed, chair, or wheelchair transfers? Yes. TRANSFERS: BED, CHAIR, WHEELCHAIR - STEP 2: Does the patient require the assistance of a helper? Yes. TRANSFERS: BED, CHAIR, WHEELCHAIR - STEP 3: How much assistance does the patient require from the helper? Lifting of the legs TRANSFERS: BED, CHAIR, WHEELCHAIR - STEP 4: How many legs does the patient require the helper to lift? both legs TRANSFERS: BED, CHAIR, WHEELCHAIR - SCORE: 3-MOD TRANSFERS: TOILET: TRANSFERS: TOILET - STEP 1: Does the patient require assistance with toilet transfers? Yes. TRANSFERS: TOILET - STEP 2: Does the patient require the assistance of a helper? Yes. TRANSFERS: TOILET - STEP 3: How much assistance does the patient require from the helper? Patient performs half or more of the tr ansferring tasks TRANSFERS: TOILET - STEP 4: Does the patient need only incidental help such as contact guard or steadying during toilet transfer? No. Patient needs more than incidental help TRANSFERS: TOILET - SCORE: 3-MOD TRANSFERS: SHOWER: Activity did not occur on this shift TRANSFERS: SHOWER - SCORE: 0-UNK TRANSFERS: TUB: Activity did not occur on this shift TRANSFERS: TUB - SCORE: 0-UNK LOCOMOTION: WALK: Activity did not occur on this shift LOCOMOTION: WALK - SCORE: 0-UNK LOCOMOTION: WHEELCHAIR: Activity did not occur on this shift LOCOMOTION: WHEELCHAIR - SCORE: 0-UNK COMPREHENSION: COMPREHENSION - STEP 1: Does the patient require help to understand complex and abstract ideas (such as current events, finan shea, discharge planning, medical issues, relationships, etc)? Yes. COMPREHENSION - STEP 2: Does the patient require help to understand questions or statements about basic needs or ideas (such as hunger, thirst, sleep, safety, daily schedule, room location, or discomfort) half or more of the t renee? No. COMPREHENSION - STEP 3: How often does the patient need help to understand directions and conversation about basic needs? 10% - 24% of the time COMPREHENSION - SCORE: 4-MIN EXPRESSION EXPRESSION - STEP 1: Does the patient require help expressing complex and abstract ideas (such as current events, finances , discharge planning, medical issues, relationships, etc)? No. EXPRESSION - STEP 2: Does the patient need extra time, require an assistive device (such as augmentive communication syste m or a communication board), OR does s/he have mild difficulty expressing complex and abstract ideas (including mild dysarthria or mild word-find problems)? Yes. EXPRESSION - SCORE: 6-TINO SOCIAL INTERACTION: SOCIAL INTERACTION - STEP 1: Does the patient require a helper to interact with others in social and therapeutic situations? No. SOCIAL INTERACTION - STEP 2: Does the patient need extra time in social situations, OR does s/he interact with staff, other patien ts, and family members ONLY in structured environments, OR does s/he require medication for social in teraction? No. SOCIAL INTERACTION - SCORE: 7-IND PROBLEM SOLVING: PROBLEM SOLVING - STEP 1: Does the patient need help to solve complex problems such as managing a checking account or confronti ng interpersonal problems? Yes. PROBLEM SOLVING - STEP 2: Does the patient solve basic routine problems half or more of the time? Yes. PROBLEM SOLVING - STEP 3: How often does the patient need help to solve basic routine problems? Less than 10% of the time PROBLEM SOLVING - SCORE: 5-SUP MEMORY: MEMORY - STEP 1: Does the patient need help to remember frequently encountered people, daily routines, and executing r equests? No. MEMORY - STEP 2: Does the patient have slight difficulty recognizing frequently encountered people, daily routines, or executing requests without the need for repetition or using self-initiated or environmental cues to remember? Yes. MEMORY - SCORE: 6-TINO SIGNATURE PANEL: The following modified sections: Eating - Score, Grooming - Score, Dressing - Upper Body - Score, Adam ssing - Lower Body - Score, Toileting - Score, Bladder Management - Score, Bowel Management - Score, Transfers: Bed, Chair, Wheelchair - Score, Transfers: Toilet - Score, Transfers: Shower - Score, Jo sfers: Tub - Score, Locomotion: Walk - Score, Locomotion: Wheelchair - Score, Comprehension - Score, Expression - Score, Social Interaction - Score, Problem Solving - Score, Memory - Score were [electro nically] signed by Ellen Canada CNA on TueFeb 06 2018 02:03:53 GMT-0500 (Central Daylight Time)
[2018-02-06] MEDS: TRIAMCINOLONE 0.1% OINT 15 GM TOP SCH ×2 (08:00→20:28)
[2018-02-06] MEDS: POTASSIUM CL SA 10 MEQ TAB PO SCH ×2 (08:00→20:29)
[2018-02-06] MEDS: FISH OIL PO SCH (08:00)
[2018-02-06] MEDS: VITAMIN D 5,000 UNIT CAP PO SCH (08:09)
[2018-02-06] MEDS: SPIRONOLACTONE 25 MG TABLET PO SCH (08:10)
[2018-02-06] MEDS: PANTOPRAZOLE 40MG TABLET PO SCH (08:10)
[2018-02-06] MEDS: BISOPROLOL 5 MG TABLET PO SCH (08:11)
[2018-02-06] MEDS: CYANOCOBALAMIN 1,000 MCG TAB PO SCH (08:11)
[2018-02-06] MEDS: ASCORBIC ACID 500 MG TABLET PO SCH ×2 (08:11→20:29)
[2018-02-06] MEDS: TRAMADOL HCL 50 MG TAB PO PRN ×2 (08:11→12:14)
[2018-02-06] MEDS: ASPIRIN EC 81 MG TAB PO SCH (08:11)
[2018-02-06] MEDS: GABAPENTIN 300 MG CAP PO SCH ×3 (08:11→20:29)
--- NOTE | 2018-02-06 15:24 | FAST ---
SHIFT START DATE/TIME: 02/06/2018 07:00 (CDT) SHIFT END DATE/TIME: 02/06/2018 19:00 (CDT) NAME FRANCE BAUMANN DATE OF : 1945 DATE OF ADMISSION: 01/31/2018 15:46 (CDT) PHONE: AGE: 72 N# [id number] GENDER: Female ENCOUNTER PHYSICIAN: Dr. Luke Major M.D. ADMISSION DIAGNOSIS: - Orthopaedic Disorders 08 - Pelvic Fracture (08.3) pubic ramus fx, humerus fx, hip pain. EATING: EATING - STEP 1: Does the patient require assistance when eating? Yes. EATING - STEP 2: Does the patient require the assistance of a helper? No, patient only requires an assistive device, O R s/he takes more than reasonable time to eat, OR there is a safety concern, OR s/he requires modifie d food consistency EATING - SCORE: 6-TINO GROOMING: Comb/brush hair Oral care Wash, rinse, and dry face Wash, rinse, and dry hands GROOMING - STEP 1: Does the patient require assistance when grooming? Yes. GROOMING - STEP 2: Does the patient require the assistance of a helper? No. The patient only requires an assistive devic e, OR takes more than reasonable time to groom, OR there is a concern for safety as the patient groom s GROOMING - SCORE: 6-TINO BATHING: Activity did not occur on this shift BATHING - SCORE: 0-UNK DRESSING - UPPER BODY: Activity did not occur on this shift ARTICLES SCORE Total number of steps: 0 DRESSING - UPPER BODY - SCORE: 0-UNK DRESSING - LOWER BODY: Activity did not occur on this shift ARTICLES SCORE Total number of steps: 0 DRESSING - LOWER BODY - SCORE: 0-UNK TOILETING: TOILETING - STEP 1: Does the patient require assistance with toileting? Yes. TOILETING - STEP 2: Does the patient require the assistance of a helper? Yes. TOILETING - STEP 3: How much assistance does the patient require from the helper? Only supervision TOILETING - SCORE: 5-SUP BLADDER MANAGEMENT: BLADDER MANAGEMENT - STEP 1: Does the patient control the bladder completely and intentionally without equipment or devices or med ications, and is always continent? No. BLADDER MANAGEMENT - STEP 2: Does the patient require the assistance of a helper? Yes. BLADDER MANAGEMENT - STEP 3: How much assistance does the patient require from the helper? Only supervision, stand-by, cuing, or c oaxing BLADDER MANAGEMENT - SCORE: 5-SUP BLADDER MANAGEMENT - FREQUENCY OF ACCIDENTS: BLADDER MANAGEMENT(FA) - STEP 1: How many accidents has the patient had during the current shift? 0 BOWEL MANAGEMENT: Activity did not occur on this shift BOWEL MANAGEMENT - SCORE: 7-IND BOWEL MANAGEMENT - FREQUENCY OF ACCIDENTS: BOWEL MANAGEMENT(FA) - STEP 1: How many accidents has the patient had during the current shift? 0 TRANSFERS: BED, CHAIR, WHEELCHAIR: TRANSFERS: BED, CHAIR, WHEELCHAIR - STEP 1: Does the patient require assistance with bed, chair, or wheelchair transfers? Yes. TRANSFERS: BED, CHAIR, WHEELCHAIR - STEP 2: Does the patient require the assistance of a helper? Yes. TRANSFERS: BED, CHAIR, WHEELCHAIR - STEP 3: How much assistance does the patient require from the helper? Steadying/guiding assistance TRANSFERS: BED, CHAIR, WHEELCHAIR - SCORE: 4-MIN TRANSFERS: TOILET: TRANSFERS: TOILET - STEP 1: Does the patient require assistance with toilet transfers? Yes. TRANSFERS: TOILET - STEP 2: Does the patient require the assistance of a helper? Yes. TRANSFERS: TOILET - STEP 3: How much assistance does the patient require from the helper? Only supervision, cuing, coaxing, OR he lp to set out transfer equipment or to lock brakes and/or lift foot rests TRANSFERS: TOILET - SCORE: 5-SUP TRANSFERS: SHOWER: Activity did not occur on this shift TRANSFERS: SHOWER - SCORE: 0-UNK TRANSFERS: TUB: Activity did not occur on this shift TRANSFERS: TUB - SCORE: 0-UNK LOCOMOTION: WALK: Activity did not occur on this shift LOCOMOTION: WALK - SCORE: 0-UNK LOCOMOTION: WHEELCHAIR: LOCOMOTION: WHEELCHAIR - STEP 1: Does the patient need help to go 150 feet in a wheelchair? No. LOCOMOTION: WHEELCHAIR - SCORE: 6-TINO COMPREHENSION: COMPREHENSION: TYPE: Both COMPREHENSION - STEP 1: Does the patient require help to understand complex and abstract ideas (such as current events, finan shea, discharge planning, medical issues, relationships, etc)? No. COMPREHENSION - STEP 2: Does the patient need extra time, require an assistive device (such as glasses, hearing aids, or an a ugmentative communication system), OR does s/he have mild difficulty expressing complex and abstract ideas (including mild dysarthria or mild word-finding problems)? Yes. COMPREHENSION - SCORE: 6-TINO EXPRESSION EXPRESSION: TYPE: Both EXPRESSION - STEP 1: Does the patient require help expressing complex and abstract ideas (such as current events, finances , discharge planning, medical issues, relationships, etc)? No. EXPRESSION - STEP 2: Does the patient need extra time, require an assistive device (such as augmentive communication syste m or a communication board), OR does s/he have mild difficulty expressing complex and abstract ideas (including mild dysarthria or mild word-find problems)? Yes. EXPRESSION - SCORE: 6-TINO SOCIAL INTERACTION: SOCIAL INTERACTION - STEP 1: Does the patient require a helper to interact with others in social and therapeutic situations? No. SOCIAL INTERACTION - STEP 2: Does the patient need extra time in social situations, OR does s/he interact with staff, other patien ts, and family members ONLY in structured environments, OR does s/he require medication for social in teraction? No. SOCIAL INTERACTION - SCORE: 7-IND PROBLEM SOLVING: PROBLEM SOLVING - STEP 1: Does the patient need help to solve complex problems such as managing a checking account or confronti ng interpersonal problems? No. PROBLEM SOLVING - STEP 2: Does the patient require extra time to make decisions or solve problems, OR does s/he have slight dif ficulty reading, initiating, or self-correcting in unfamiliar situations? Yes, patient needs extra ti me. PROBLEM SOLVING - SCORE: 6-TINO MEMORY: MEMORY - STEP 1: Does the patient need help to remember frequently encountered people, daily routines, and executing r equests? No. MEMORY - STEP 2: Does the patient have slight difficulty recognizing frequently encountered people, daily routines, or executing requests without the need for repetition or using self-initiated or environmental cues to remember? Yes. MEMORY - SCORE: 6-TINO SIGNATURE PANEL: The following modified sections: Eating - Score, Grooming - Score, Bathing - Score, Dressing - Upper Body - Score, Dressing - Lower Body - Score, Toileting - Score, Bladder Management - Score, Bowel Man agement - Score, Transfers: Bed, Chair, Wheelchair - Score, Transfers: Toilet - Score, Transfers: Shonna wer - Score, Transfers: Tub - Score, Locomotion: Walk - Score, Locomotion: Wheelchair - Score, Compre hension - Score, Expression - Score, Social Interaction - Score, Problem Solving - Score, Memory - Sc ore were [electronically] signed by Ping Sharp C.N.A. on TueFeb 06 2018 14:26:19 [facility]-0500 (Centra l Daylight Time)
--- NOTE | 2018-02-06 16:30 | FAST ---
ENCOUNTER DATE AND TIME: 02/06/2018 08:00 (CDT) NAME FRANCE BAUMANN DATE OF : 1945 DATE OF ADMISSION: 01/31/2018 15:46 (CDT) PHONE: AGE: 72 N# [id number] GENDER: Female ENCOUNTER PHYSICIAN: Dr. Luke Major M.D. ADMISSION DIAGNOSIS: - Orthopaedic Disorders 08 - Pelvic Fracture (08.3) pubic ramus fx, humerus fx, hip pain. EATING: Activity did not occur on this shift EATING - SCORE: 0-UNK GROOMING: Comb/brush hair Wash, rinse, and dry face Wash, rinse, and dry hands GROOMING - STEP 1: Does the patient require assistance when grooming? No. GROOMING - SCORE: 7-IND BATHING: Abdomen Buttocks Chest Left arm Left lower leg and foot Left upper leg Perineal area Right arm Right lower leg and foot Right upper leg BATHING - STEP 1: Does the patient require assistance when bathing? Yes. BATHING - STEP 2: Does the patient require the assistance of a helper? Yes. BATHING - STEP 3: How much assistance does the patient require from the helper? Only incidental help such as placement of a wash cloth in his/her hand a few times as s/he bathes OR help to bathe just one or two areas of the body BATHING - SCORE: 4-MIN DRESSING - UPPER BODY: T-shirt/pullover shirt (four steps) ARTICLES SCORE Total number of steps: 4 DRESSING - UPPER BODY - STEP 1: Does the patient require help when dressing above the waist? Yes. DRESSING - UPPER BODY - STEP 2: Does the patient require the assistance of a helper? Yes. DRESSING - UPPER BODY - STEP 3: Does the helper touch the patient while dressing? Yes. DRESSING - UPPER BODY - STEP 4: How many of the total steps does the patient complete on his/her own? 3 DRESSING - UPPER BODY - SCORE: 4-MIN DRESSING - LOWER BODY: Elastic waist pants (three steps) Slip-on shoe - Left foot (one step) Slip-on shoe - Right foot (one step) Underwear (three steps) ARTICLES SCORE Total number of steps: 8 DRESSING - LOWER BODY - STEP 1: Does the patient require help when dressing below the waist? Yes. DRESSING - LOWER BODY - STEP 2: Does the patient require the assistance of a helper? Yes. DRESSING - LOWER BODY - STEP 3: Does the helper touch the patient while dressing? Yes. DRESSING - LOWER BODY - STEP 4: How many of the total steps does the patient complete on his/her own? 5 DRESSING - LOWER BODY - SCORE: 3-MOD TOILETING: Activity did not occur on this shift TOILETING - SCORE: 0-UNK BLADDER MANAGEMENT: Activity did not occur on this shift BLADDER MANAGEMENT - SCORE: 7-IND BOWEL MANAGEMENT: Activity did not occur on this shift BOWEL MANAGEMENT - SCORE: 7-IND TRANSFERS: BED, CHAIR, WHEELCHAIR: Activity did not occur on this shift TRANSFERS: BED, CHAIR, WHEELCHAIR - SCORE: 0-UNK TRANSFERS: TOILET: Activity did not occur on this shift TRANSFERS: TOILET - SCORE: 0-UNK TRANSFERS: SHOWER: Activity did not occur on this shift TRANSFERS: SHOWER - SCORE: 0-UNK TRANSFERS: TUB: TRANSFERS: TUB - STEP 1: Does the patient require assistance with tub transfers? Yes. TRANSFERS: TUB - STEP 2: Does the patient require the assistance of a helper? Yes. TRANSFERS: TUB - STEP 3: How much assistance does the patient require from the helper? Incidental help such as contact guardin g or steadying, OR help to lift one leg into the tub TRANSFERS: TUB - SCORE: 4-MIN LOCOMOTION: WALK: Activity did not occur on this shift LOCOMOTION: WALK - SCORE: 0-UNK LOCOMOTION: WHEELCHAIR: Activity did not occur on this shift LOCOMOTION: WHEELCHAIR - SCORE: 0-UNK LOCOMOTION: STAIRS: Activity did not occur on this shift LOCOMOTION: STAIRS - SCORE: 0-UNK COMPREHENSION: COMPREHENSION: TYPE: Both COMPREHENSION - STEP 1: Does the patient require help to understand complex and abstract ideas (such as current events, finan shea, discharge planning, medical issues, relationships, etc)? No. COMPREHENSION - STEP 2: Does the patient need extra time, require an assistive device (such as glasses, hearing aids, or an a ugmentative communication system), OR does s/he have mild difficulty expressing complex and abstract ideas (including mild dysarthria or mild word-finding problems)? Yes. COMPREHENSION - SCORE: 6-TINO EXPRESSION EXPRESSION: TYPE: Both EXPRESSION - STEP 1: Does the patient require help expressing complex and abstract ideas (such as current events, finances , discharge planning, medical issues, relationships, etc)? No. EXPRESSION - STEP 2: Does the patient need extra time, require an assistive device (such as augmentive communication syste m or a communication board), OR does s/he have mild difficulty expressing complex and abstract ideas (including mild dysarthria or mild word-find problems)? Yes. EXPRESSION - SCORE: 6-TINO SOCIAL INTERACTION: SOCIAL INTERACTION - STEP 1: Does the patient require a helper to interact with others in social and therapeutic situations? No. SOCIAL INTERACTION - STEP 2: Does the patient need extra time in social situations, OR does s/he interact with staff, other patien ts, and family members ONLY in structured environments, OR does s/he require medication for social in teraction? Yes, patient needs extra time SOCIAL INTERACTION - SCORE: 6-TINO PROBLEM SOLVING: PROBLEM SOLVING - STEP 1: Does the patient need help to solve complex problems such as managing a checking account or confronti ng interpersonal problems? No. PROBLEM SOLVING - STEP 2: Does the patient require extra time to make decisions or solve problems, OR does s/he have slight dif ficulty reading, initiating, or self-correcting in unfamiliar situations? Yes, patient needs extra ti me. PROBLEM SOLVING - SCORE: 6-TINO MEMORY: MEMORY - STEP 1: Does the patient need help to remember frequently encountered people, daily routines, and executing r equests? No. MEMORY - STEP 2: Does the patient have slight difficulty recognizing frequently encountered people, daily routines, or executing requests without the need for repetition or using self-initiated or environmental cues to remember? Yes. MEMORY - SCORE: 6-TINO SIGNATURE PANEL: The following modified sections: Eating - Score, Grooming - Score, Bathing - Score, Dressing - Upper Body - Score, Dressing - Lower Body - Score, Toileting - Score, Transfers: Bed, Chair, Wheelchair - S core, Transfers: Toilet - Score, Transfers: Shower - Score, Transfers: Tub - Score, Comprehension - S core, Expression - Score, Social Interaction - Score, Problem Solving - Score, Memory - Score were [e lectronically] signed by Lindy Wells OT on TueFeb 06 2018 15:31:39 T-0500 (Central Daylight T renee)
--- NOTE | 2018-02-06 16:47 | FAST ---
ENCOUNTER DATE AND TIME: 02/04/2018 08:00 (CDT) NAME FRANCE BAUMANN DATE OF : 1945 DATE OF ADMISSION: 01/31/2018 15:46 (CDT) PHONE: AGE: 72 N# [id number] GENDER: Female ENCOUNTER PHYSICIAN: Dr. Luke Major M.D. ADMISSION DIAGNOSIS: - Orthopaedic Disorders 08 - Pelvic Fracture (08.3) pubic ramus fx, humerus fx, hip pain. EATING: Activity did not occur on this shift EATING - SCORE: 0-UNK GROOMING: Activity did not occur on this shift GROOMING - SCORE: 0-UNK BATHING: Activity did not occur on this shift BATHING - SCORE: 0-UNK DRESSING - UPPER BODY: Activity did not occur on this shift Patient is not dressing in public clothing ARTICLES SCORE Total number of steps: 0 DRESSING - UPPER BODY - SCORE: 0-UNK DRESSING - LOWER BODY: Activity did not occur on this shift Patient is not dressing in public clothing ARTICLES SCORE Total number of steps: 0 DRESSING - LOWER BODY - SCORE: 0-UNK TOILETING: Activity did not occur on this shift TOILETING - SCORE: 0-UNK BLADDER MANAGEMENT: Activity did not occur on this shift BLADDER MANAGEMENT - SCORE: 7-IND BOWEL MANAGEMENT: Activity did not occur on this shift BOWEL MANAGEMENT - SCORE: 7-IND TRANSFERS: BED, CHAIR, WHEELCHAIR: TRANSFERS: BED, CHAIR, WHEELCHAIR - STEP 1: Does the patient require assistance with bed, chair, or wheelchair transfers? Yes. TRANSFERS: BED, CHAIR, WHEELCHAIR - STEP 2: Does the patient require the assistance of a helper? Yes. TRANSFERS: BED, CHAIR, WHEELCHAIR - STEP 3: How much assistance does the patient require from the helper? Only supervision TRANSFERS: BED, CHAIR, WHEELCHAIR - SCORE: 5-SUP TRANSFERS: TOILET: Activity did not occur on this shift TRANSFERS: TOILET - SCORE: 0-UNK TRANSFERS: SHOWER: Activity did not occur on this shift TRANSFERS: SHOWER - SCORE: 0-UNK TRANSFERS: TUB: Activity did not occur on this shift TRANSFERS: TUB - SCORE: 0-UNK LOCOMOTION: WALK: Patient walks less than 50 feet LOCOMOTION: WALK - SCORE: 1-DEP LOCOMOTION: WHEELCHAIR: LOCOMOTION: WHEELCHAIR - STEP 1: Does the patient need help to go 150 feet in a wheelchair? Yes. LOCOMOTION: WHEELCHAIR - STEP 2: How much assistance does the patient need from the helper? Only supervision, cuing, or coaxing LOCOMOTION: WHEELCHAIR - SCORE: 5-SUP LOCOMOTION: STAIRS: Activity did not occur on this shift LOCOMOTION: STAIRS - SCORE: 0-UNK COMPREHENSION: COMPREHENSION - SCORE: 0-UNK EXPRESSION EXPRESSION - SCORE: 0-UNK SOCIAL INTERACTION: SOCIAL INTERACTION - SCORE: 0-UNK PROBLEM SOLVING: PROBLEM SOLVING - SCORE: 0-UNK MEMORY: MEMORY - SCORE: 0-UNK SIGNATURE PANEL: The following modified sections: Transfers: Bed, Chair, Wheelchair - Score, Transfers: Toilet - Score , Locomotion: Walk - Score, Locomotion: Wheelchair - Score, Locomotion: Stairs - Score were [victor hugo heaton] signed by Melvin Millan PTA on TueFeb 06 2018 15:49:09 GMT-0500 (Central Daylight Time)
--- NOTE | 2018-02-06 16:49 | FAST ---
ENCOUNTER DATE AND TIME: 02/06/2018 08:00 (CDT) NAME FRANCE BAUMANN DATE OF : 1945 DATE OF ADMISSION: 01/31/2018 15:46 (CDT) PHONE: AGE: 72 N# [id number] GENDER: Female ENCOUNTER PHYSICIAN: Dr. Luke Major M.D. ADMISSION DIAGNOSIS: - Orthopaedic Disorders 08 - Pelvic Fracture (08.3) pubic ramus fx, humerus fx, hip pain. EATING: Activity did not occur on this shift EATING - SCORE: 0-UNK GROOMING: Activity did not occur on this shift GROOMING - SCORE: 0-UNK BATHING: Activity did not occur on this shift BATHING - SCORE: 0-UNK DRESSING - UPPER BODY: Activity did not occur on this shift Patient is not dressing in public clothing ARTICLES SCORE Total number of steps: 0 DRESSING - UPPER BODY - SCORE: 0-UNK DRESSING - LOWER BODY: Activity did not occur on this shift Patient is not dressing in public clothing ARTICLES SCORE Total number of steps: 0 DRESSING - LOWER BODY - SCORE: 0-UNK TOILETING: Activity did not occur on this shift TOILETING - SCORE: 0-UNK BLADDER MANAGEMENT: Activity did not occur on this shift BLADDER MANAGEMENT - SCORE: 7-IND BOWEL MANAGEMENT: Activity did not occur on this shift BOWEL MANAGEMENT - SCORE: 7-IND TRANSFERS: BED, CHAIR, WHEELCHAIR: TRANSFERS: BED, CHAIR, WHEELCHAIR - STEP 1: Does the patient require assistance with bed, chair, or wheelchair transfers? Yes. TRANSFERS: BED, CHAIR, WHEELCHAIR - STEP 2: Does the patient require the assistance of a helper? No. Patient only requires an assistive device fo r bed, chair, wheelchair transfers such as a sliding board, grab bar, or brace, OR s/he takes more th an reasonable time, OR there is a safety concern when s/he performs the transfers TRANSFERS: BED, CHAIR, WHEELCHAIR - SCORE: 6-TINO TRANSFERS: TOILET: Activity did not occur on this shift TRANSFERS: TOILET - SCORE: 0-UNK TRANSFERS: SHOWER: Activity did not occur on this shift TRANSFERS: SHOWER - SCORE: 0-UNK TRANSFERS: TUB: Activity did not occur on this shift TRANSFERS: TUB - SCORE: 0-UNK LOCOMOTION: WALK: Patient walks less than 50 feet LOCOMOTION: WALK - SCORE: 1-DEP LOCOMOTION: WHEELCHAIR: LOCOMOTION: WHEELCHAIR - STEP 1: Does the patient need help to go 150 feet in a wheelchair? Yes. LOCOMOTION: WHEELCHAIR - STEP 2: How much assistance does the patient need from the helper? Only supervision, cuing, or coaxing LOCOMOTION: WHEELCHAIR - SCORE: 5-SUP LOCOMOTION: STAIRS: Activity did not occur on this shift LOCOMOTION: STAIRS - SCORE: 0-UNK COMPREHENSION: COMPREHENSION - SCORE: 0-UNK EXPRESSION EXPRESSION - SCORE: 0-UNK SOCIAL INTERACTION: SOCIAL INTERACTION - SCORE: 0-UNK PROBLEM SOLVING: PROBLEM SOLVING - SCORE: 0-UNK MEMORY: MEMORY - SCORE: 0-UNK SIGNATURE PANEL: The following modified sections: Transfers: Bed, Chair, Wheelchair - Score, Transfers: Toilet - Score , Locomotion: Walk - Score, Locomotion: Wheelchair - Score, Locomotion: Stairs - Score were [electron ically] signed by Melvin Millan PTA on TueFeb 06 2018 15:51:02 T-0500 (Central Daylight Time)
--- NOTE | 2018-02-06 18:47 | R.PN ---
ENCOUNTER DATE AND TIME: 02/06/2018 17:38 (CDT) NAME FRANCE BAUMANN DATE OF : 1945 DATE OF ADMISSION: 01/31/2018 15:46 (CDT) pubic ramus fx, humerus fx, hip painCHIEF COMPLAINT: Right arm and hip fracture SUBJECTIVE: Pt denied any Shortness of Breath. Pt denied any depression. Bed mobility done with modified independence. Propelled wheelchair 180' with standby assistance. Ambu lated 38' with left hemiwalker. VITAL SIGNS Temperature: 97.6 F SBP/DBP: 143/70 Pulse: 83 Resp: 16 MEDICATION ALLERGIES: amoxicillin CODEINE ibuprofen etodolac annaprox ENVIRONMENTAL ALLERGIES: - Substance Allergies None Known - Other Allergies None Known NURSING: - Shower allowing shower - Skin care per protocol ACTIVITIES OOB only with supervision THERAPIES: - Occupational Therapy Evaluate and Treat. - Physical Therapy Evaluate and Treat. PHYSICAL EXAM - Gen Alert and awake Lying in bed No apparent distress Oriented to: person, time, and place - Skin No skin breakdown. Normacephalic - Eyes No abnormalities - ENMT No abnormalities - Neck No abnormalities - CVS RRR - Chest Clear - Abd Soft - GI Non distended Deferred - No abnormalities - Ext No significant edema - MSK 4/5 weakness in both lower extremities. - Neuro 4/5 strength bilaterally lower extremities. - Psych No abnormalities ASSESSMENT: Pt. is a 72 yo Right-handed white female.On 01/29/2018 she was admitted to [facility] with diagnosis pubic ramus fx, humerus fx, hip pain.Her impairment category is Orthopaedic Dis orders 08 - Pelvic Fracture (08.3).Pre-morbidly, Pt. was independent/mod-I in Sphincter Control, Tra nsfers Control, Communication, Social Cognition, Self-Care, and Locomotion; and she had good Sphincte r Control.Currently, she has deficits of Endurance, Safety Awareness, Transfers Control, Balance, Loc omotion, and Self-Care.Pt. is now referred to [facility] for acute in-patient rehabilitation in order to maximize patient's functional independence in activities of daily living, strength, ROM, and mobility.- Rehab Goal Patient has realistic goal of being discharged at assistance level 6-Candy to reside at Home with Fam brian/Relatives. MDM/PLAN: - Diet Type Continue Regular - Physical Therapy Decreased range of motion - to improve, our physical therapists will perform initial evaluation of p t's status upon admission and devise an individualized program for increasing patient's Range of Willis on. Gait dysfunction - to improve, our physical therapists will perform initial evaluation of pt's statu s upon admission and devise an individualized program for Gait Training, and Wheel Chair mobility Inability to transfer - to improve, our physical therapists will perform initial evaluation of pt's status upon admission and devise an individualized program for Bed mobility Need for home safety evaluation - to improve, our physical therapists will perform initial evaluatio n of pt's status upon admission and devise an individualized program for Home Evaluation Need in caregiver upon discharge - to improve, our physical therapists will perform initial evaluati on of pt's status upon admission and devise an individualized program for Caregiver Training New precaution - to improve, our physical therapists will perform initial evaluation of pt's status upon admission and devise an individualized program for Patient precaution education Edema - to improve, our physical therapists will perform initial evaluation of pt's status upon admis sue and devise an individualized program for Elevation Training, and Lymphedema Therapy Poor balance - to improve, our physical therapists will perform initial evaluation of pt's status up on admission and devise an individualized program for Balance Training Poor endurance - to improve, our physical therapists will perform initial evaluation of pt's status upon admission and devise an individualized program for Endurance Training Weakness - to improve, our physical therapists will perform initial evaluation of pt's status upon a dmission and devise an individualized program for Aquatic Therapy, Neuromuscular Reeducation, and Str engthening Achieving independence - to improve, our physical therapists will perform initial evaluation of pt's status upon admission and devise an individualized program for Community Reintegration Activities - Diet - Liquid Texture Continue Regular - Tube Feed Continue N/A - Skin care per protocol - Diet - Solid Texture Continue Regular - Shower allowing shower - Occupational Therapy ADL deficits - to improve, our occupation therapists will perform initial evaluation of pt's status upon admission and devise an individualized program for Bathing, Bed mobility, Community Reintegratio n, Cooking, Dressing, Eating, Fine Motor Skills, Grooming, Homemaking, Kitchen Mobility, Laundry, Pat ient Education, Safety Awareness, Splinting - Positioning, Transfers(Toilet, Tub, Shower), and Wheel Chair Management Need for day care supervisor - to improve, our occupation therapists will perform initial evaluation of pt's status upon admission and devise an individualized program for Caregiver Training Weakness - to improve, our occupation therapists will perform initial evaluation of pt's status upon admission and devise an individualized program for Aquatic Therapy, Balance, Endurance, UE ROM, and UE strengthening FUNCTIONAL STATUS: UPDATED AT WEEKLY TEAM CONFERENCE - Bladder Same accident frequency: 7-Ind - No accidents in the past 7 days - Bowel Same accident frequency: 7-Ind - No accidents in the past 7 days - Walking Same score based on distance walked: 1(<=50ft) FUNCTIONAL STATUS: - Self-Care A. Eating Ind B. Grooming Ind C. Bathing Ind D. Dressing - Upper Ind E. Dressing - Lower maxA F. Toileting maxA - Sphincter Control G: Bladder control Ind H: Bowel control Ind - Transfers Control I. Bed/Chair/Wheelchair maxA J. Toilet maxA K. Tub/Shower maxA - Locomotion L. Walk/Wheelchair (B) Dep M. Stairs ADNO - Communication N. Comprehension (B) Ind O. Expression (B) Ind - Social Cognition P. Social Interaction Ind Q. Problem Solving Ind R. Memory Ind - Endurance Poor - Balance Poor - Safety Awareness Poor CURRENT FUNC. DEFICITS: Endurance, Safety Awareness, Transfers Control, Balance, Locomotion, and Self-Care SIGNATURE PANEL: (CDT)
--- NOTE | 2018-02-06 21:20 | P.PN ---
Subjective Date of Service: 02/06/18 Chief Complaint: CONSTIPATED FROM MEDS SHE IS A LOT BETTER NO PAIN UNLESS MOVES. WILL DO BMD LATER. SHE HAS QUIT NORCO NOW. IN A LOT OF PAIN. Review of Systems 10-point ROS is otherwise unremarkable Physical Examination - Vital Signs Temperature: 97.5 F Blood Pressure: 125/58 Pulse: 83 Respirations: 16 Pulse Ox (%): 98 - Physical Exam General: Mild distress, Moderate distress HEENT: Atraumatic, PERRLA, EOMI Neck: Supple, JVD not distended Respiratory: Clear to auscultation bilaterally, Normal air movement Cardiovascular: Regular rate/rhythm, Normal S1 S2 Gastrointestinal: Normal bowel sounds, No tenderness Musculoskeletal: Tenderness (R ARM) Integumentary: No rashes Neurological: Normal speech, Normal tone, Normal affect Lymphatics: No axilla or inguinal lymphadenopathy - Studies Medications List Reviewed: Yes Assessment And Plan - Current Problems (Diagnosis) (1) Constipation Current Visit: Yes Status: Acute Plan: MOM AND MIRALAX STOP NORCO START TRAMADOL (2) Hypokalemia Current Visit: Yes Status: Acute (3) Pubic ramus fracture Onset Date: 02/02/18 Current Visit: Yes Status: Acute Plan: FU PT PAIN MX HEALING IN TWO MNTHS. OT PT PAIN MRELIEV CHANGE TO ULTRAM. RESUME PT. Qualifiers: Encounter type: subsequent encounter Fracture type: closed Laterality: right Fracture healing: with routine healing Qualified Code(s): S32.591D - Other specified fracture of right pubis, subsequent encounter for fracture with routine healing (4) Humerus fracture Onset Date: 01/30/18 Current Visit: No Status: Acute Plan: MORE PAIN X RAY NO DIFF. RESUME TRAMADOL 2 PO QID PRN. Qualifiers: Encounter type: subsequent encounter Fracture type: closed Fracture alignment: nondisplaced Laterality: right Fracture healing: with routine healing
--- NOTE | 2018-02-07 03:06 | FAST ---
SHIFT START DATE/TIME: 02/06/2018 19:00 (CDT) SHIFT END DATE/TIME: 02/07/2018 07:00 (CDT) NAME FRANCE BAUMANN DATE OF : 1945 DATE OF ADMISSION: 01/31/2018 15:46 (CDT) PHONE: AGE: 72 N# [id number] GENDER: Female ENCOUNTER PHYSICIAN: Dr. Luke Major M.D. ADMISSION DIAGNOSIS: - Orthopaedic Disorders 08 - Pelvic Fracture (08.3) pubic ramus fx, humerus fx, hip pain. EATING: Activity did not occur on this shift EATING - SCORE: 0-UNK GROOMING: Comb/brush hair Oral care Wash, rinse, and dry face Wash, rinse, and dry hands GROOMING - STEP 1: Does the patient require assistance when grooming? Yes. GROOMING - STEP 2: Does the patient require the assistance of a helper? Yes. GROOMING - STEP 3: How much assistance does the patient require from the helper? Only prior equipment preparation/set up from the helper GROOMING - SCORE: 5-SUP BATHING: Activity did not occur on this shift BATHING - SCORE: 0-UNK DRESSING - UPPER BODY: Patient is not dressing in public clothing ARTICLES SCORE Total number of steps: 0 DRESSING - UPPER BODY - SCORE: 0-UNK DRESSING - LOWER BODY: Patient is not dressing in public clothing ARTICLES SCORE Total number of steps: 0 DRESSING - LOWER BODY - SCORE: 0-UNK TOILETING: TOILETING - STEP 1: Does the patient require assistance with toileting? Yes. TOILETING - STEP 2: Does the patient require the assistance of a helper? Yes. TOILETING - STEP 3: How much assistance does the patient require from the helper? Only supervision TOILETING - SCORE: 5-SUP BLADDER MANAGEMENT: BLADDER MANAGEMENT - STEP 1: Does the patient control the bladder completely and intentionally without equipment or devices or med ications, and is always continent? No. BLADDER MANAGEMENT - STEP 2: Does the patient require the assistance of a helper? Yes. BLADDER MANAGEMENT - STEP 3: How much assistance does the patient require from the helper? Only set-up of equipment - such as plac ing it within reach of the patient or emptying a device - to maintain either satisfactory voiding pat tern or managing an external device, such as an absorbent pad, ileal device, or catheter BLADDER MANAGEMENT - SCORE: 5-SUP BOWEL MANAGEMENT: Activity did not occur on this shift BOWEL MANAGEMENT - SCORE: 7-IND TRANSFERS: BED, CHAIR, WHEELCHAIR: TRANSFERS: BED, CHAIR, WHEELCHAIR - STEP 1: Does the patient require assistance with bed, chair, or wheelchair transfers? Yes. TRANSFERS: BED, CHAIR, WHEELCHAIR - STEP 2: Does the patient require the assistance of a helper? Yes. TRANSFERS: BED, CHAIR, WHEELCHAIR - STEP 3: How much assistance does the patient require from the helper? Only supervision TRANSFERS: BED, CHAIR, WHEELCHAIR - SCORE: 5-SUP TRANSFERS: TOILET: TRANSFERS: TOILET - STEP 1: Does the patient require assistance with toilet transfers? Yes. TRANSFERS: TOILET - STEP 2: Does the patient require the assistance of a helper? Yes. TRANSFERS: TOILET - STEP 3: How much assistance does the patient require from the helper? Only supervision, cuing, coaxing, OR he lp to set out transfer equipment or to lock brakes and/or lift foot rests TRANSFERS: TOILET - SCORE: 5-SUP TRANSFERS: SHOWER: Activity did not occur on this shift TRANSFERS: SHOWER - SCORE: 0-UNK TRANSFERS: TUB: Activity did not occur on this shift TRANSFERS: TUB - SCORE: 0-UNK LOCOMOTION: WALK: Activity did not occur on this shift LOCOMOTION: WALK - SCORE: 0-UNK LOCOMOTION: WHEELCHAIR: Activity did not occur on this shift LOCOMOTION: WHEELCHAIR - SCORE: 0-UNK COMPREHENSION: COMPREHENSION - STEP 1: Does the patient require help to understand complex and abstract ideas (such as current events, finan shea, discharge planning, medical issues, relationships, etc)? No. COMPREHENSION - STEP 2: Does the patient need extra time, require an assistive device (such as glasses, hearing aids, or an a ugmentative communication system), OR does s/he have mild difficulty expressing complex and abstract ideas (including mild dysarthria or mild word-finding problems)? Yes. COMPREHENSION - SCORE: 6-TINO EXPRESSION EXPRESSION - STEP 1: Does the patient require help expressing complex and abstract ideas (such as current events, finances , discharge planning, medical issues, relationships, etc)? No. EXPRESSION - STEP 2: Does the patient need extra time, require an assistive device (such as augmentive communication syste m or a communication board), OR does s/he have mild difficulty expressing complex and abstract ideas (including mild dysarthria or mild word-find problems)? No. EXPRESSION - SCORE: 7-IND SOCIAL INTERACTION: SOCIAL INTERACTION - STEP 1: Does the patient require a helper to interact with others in social and therapeutic situations? No. SOCIAL INTERACTION - STEP 2: Does the patient need extra time in social situations, OR does s/he interact with staff, other patien ts, and family members ONLY in structured environments, OR does s/he require medication for social in teraction? Yes, patient needs extra time SOCIAL INTERACTION - SCORE: 6-TINO PROBLEM SOLVING: PROBLEM SOLVING - STEP 1: Does the patient need help to solve complex problems such as managing a checking account or confronti ng interpersonal problems? No. PROBLEM SOLVING - STEP 2: Does the patient require extra time to make decisions or solve problems, OR does s/he have slight dif ficulty reading, initiating, or self-correcting in unfamiliar situations? Yes, patient needs extra ti me. PROBLEM SOLVING - SCORE: 6-TINO MEMORY: MEMORY - STEP 1: Does the patient need help to remember frequently encountered people, daily routines, and executing r equests? No. MEMORY - STEP 2: Does the patient have slight difficulty recognizing frequently encountered people, daily routines, or executing requests without the need for repetition or using self-initiated or environmental cues to remember? Yes. MEMORY - SCORE: 6-TINO SIGNATURE PANEL: The following modified sections: Eating - Score, Grooming - Score, Dressing - Upper Body - Score, Adam ssing - Lower Body - Score, Toileting - Score, Bladder Management - Score, Bowel Management - Score, Transfers: Bed, Chair, Wheelchair - Score, Transfers: Toilet - Score, Transfers: Shower - Score, Jo sfers: Tub - Score, Locomotion: Walk - Score, Locomotion: Wheelchair - Score, Comprehension - Score, Expression - Score, Social Interaction - Score, Problem Solving - Score, Memory - Score were [electro nically] signed by Ellen Canada CNA on TueFeb 07 2018 02:07:06 GMT-0500 (Central Daylight Time)
[2018-02-07] MEDS: FISH OIL PO SCH (08:00)
[2018-02-07] MEDS: TRIAMCINOLONE 0.1% OINT 15 GM TOP SCH ×2 (08:00→20:30)
[2018-02-07] MEDS: ASCORBIC ACID 500 MG TABLET PO SCH ×2 (08:41→20:30)
[2018-02-07] MEDS: GABAPENTIN 300 MG CAP PO SCH ×3 (08:41→20:30)
[2018-02-07] MEDS: CYANOCOBALAMIN 1,000 MCG TAB PO SCH (08:42)
[2018-02-07] MEDS: POTASSIUM CL SA 10 MEQ TAB PO SCH (08:42)
[2018-02-07] MEDS: VITAMIN D 5,000 UNIT CAP PO SCH (08:42)
[2018-02-07] MEDS: ASPIRIN EC 81 MG TAB PO SCH (08:43)
[2018-02-07] MEDS: BISOPROLOL 5 MG TABLET PO SCH (08:43)
[2018-02-07] MEDS: TRAMADOL HCL 50 MG TAB PO PRN ×4 (08:46→23:41)
[2018-02-07] MEDS: PANTOPRAZOLE 40MG TABLET PO SCH (09:06)
[2018-02-07] MEDS: SPIRONOLACTONE 25 MG TABLET PO SCH (09:06)
[2018-02-07] MEDS: ONDANSETRON 4 MG (ODT) TAB PO PRN (10:21)
--- NOTE | 2018-02-07 18:07 | P.PN ---
Subjective Date of Service: 02/07/18 Chief Complaint: CONSTIPATED FROM MEDS Subjective: Improving SHE IS A LOT BETTER NO PAIN UNLESS MOVES. WILL DO BMD LATER. SHE HAS QUIT [facility]CO NOW. IN A LOT OF PAIN. Review of Systems 10-point ROS is otherwise unremarkable Physical Examination - Vital Signs Temperature: 97 F Blood Pressure: 132/60 Pulse: 70 Respirations: 16 Pulse Ox (%): 97 - Physical Exam General: Alert, Mild distress HEENT: Atraumatic, PERRLA, EOMI Neck: Supple, JVD not distended Respiratory: Clear to auscultation bilaterally, Normal air movement Cardiovascular: Regular rate/rhythm, Normal S1 S2 Gastrointestinal: Normal bowel sounds, No tenderness Musculoskeletal: Tenderness (BROKEN ARM AND PELVIS.) Integumentary: No rashes Neurological: Normal speech, Normal tone, Normal affect Lymphatics: No axilla or inguinal lymphadenopathy - Studies Laboratory Data (last 24 hrs) 02/07/18 06:11: Potassium 4.4 Medications List Reviewed: Yes Assessment And Plan - Current Problems (Diagnosis) (1) Constipation Current Visit: Yes Status: Acute Plan: MOM AND MIRALAX STOP NORCO START TRAMADOL (2) Hypokalemia Current Visit: Yes Status: Acute Plan: STOP KCL NOW. ALREADY ON SPIROLOLACTONE. (3) Pubic ramus fracture Onset Date: 02/02/18 Current Visit: Yes Status: Acute Plan: FU PT PAIN MX HEALING IN TWO MNTHS. OT PT PAIN MRELIEV CHANGE TO ULTRAM. RESUME PT. Qualifiers: Encounter type: subsequent encounter Fracture type: closed Laterality: right Fracture healing: with routine healing Qualified Code(s): S32.591D - Other specified fracture of right pubis, subsequent encounter for fracture with routine healing (4) Humerus fracture Onset Date: 01/30/18 Current Visit: No Status: Acute Plan: MORE PAIN X RAY NO DIFF. RESUME TRAMADOL 2 PO QID PRN. Qualifiers: Encounter type: subsequent encounter Fracture type: closed Fracture alignment: nondisplaced Laterality: right Fracture healing: with routine healing
--- NOTE | 2018-02-07 18:53 | R.PN ---
ENCOUNTER DATE AND TIME: 02/07/2018 17:53 (CDT) NAME FRANCE BAUMANN DATE OF : 1945 DATE OF ADMISSION: 01/31/2018 15:46 (CDT) pubic ramus fx, humerus fx, hip painCHIEF COMPLAINT: Right arm and hip fracture SUBJECTIVE: Pt denied any Shortness of Breath. Pt denied any depression. Bed mobility done with modified independence. Propelled wheelchair 180' with standby assistance. Ambu lated 40' with left hemiwalker and minimum assistance. VITAL SIGNS Temperature: 97.6 F SBP/DBP: 132/60 Pulse: 70 Resp: 15 MEDICATION ALLERGIES: amoxicillin CODEINE ibuprofen etodolac annaprox ENVIRONMENTAL ALLERGIES: - Substance Allergies None Known - Other Allergies None Known NURSING: - Shower allowing shower - Skin care per protocol ACTIVITIES OOB only with supervision THERAPIES: - Occupational Therapy Evaluate and Treat. - Physical Therapy Evaluate and Treat. PHYSICAL EXAM - Gen Alert and awake Lying in bed No apparent distress Oriented to: person, time, and place - Skin No skin breakdown. Normacephalic - Eyes No abnormalities - ENMT No abnormalities - Neck No abnormalities - CVS RRR - Chest Clear - Abd Soft - GI Non distended Deferred - No abnormalities - Ext No significant edema - MSK 4/5 weakness in both lower extremities. - Neuro 4/5 strength bilaterally lower extremities. - Psych No abnormalities ASSESSMENT: Pt. is a 72 yo Right-handed white female.On 01/29/2018 she was admitted to [facility] with diagnosis pubic ramus fx, humerus fx, hip pain.Her impairment category is Orthopaedic Dis orders 08 - Pelvic Fracture (08.3).Pre-morbidly, Pt. was independent/mod-I in Sphincter Control, Tra nsfers Control, Communication, Social Cognition, Self-Care, and Locomotion; and she had good Sphincte r Control.Currently, she has deficits of Endurance, Safety Awareness, Transfers Control, Balance, Loc omotion, and Self-Care.Pt. is now referred to [facility] for acute in-patient rehabilitation in order to maximize patient's functional independence in activities of daily living, strength, ROM, and mobility.- Rehab Goal Patient has realistic goal of being discharged at assistance level 6-Candy to reside at Home with Fam brian/Relatives. MDM/PLAN: - Diet Type Continue Regular - Physical Therapy Decreased range of motion - to improve, our physical therapists will perform initial evaluation of p t's status upon admission and devise an individualized program for increasing patient's Range of Willis on. Gait dysfunction - to improve, our physical therapists will perform initial evaluation of pt's statu s upon admission and devise an individualized program for Gait Training, and Wheel Chair mobility Inability to transfer - to improve, our physical therapists will perform initial evaluation of pt's status upon admission and devise an individualized program for Bed mobility Need for home safety evaluation - to improve, our physical therapists will perform initial evaluatio n of pt's status upon admission and devise an individualized program for Home Evaluation Need in caregiver upon discharge - to improve, our physical therapists will perform initial evaluati on of pt's status upon admission and devise an individualized program for Caregiver Training New precaution - to improve, our physical therapists will perform initial evaluation of pt's status upon admission and devise an individualized program for Patient precaution education Edema - to improve, our physical therapists will perform initial evaluation of pt's status upon admi ssion and devise an individualized program for Elevation Training, and Lymphedema Therapy Poor balance - to improve, our physical therapists will perform initial evaluation of pt's status up on admission and devise an individualized program for Balance Training Poor endurance - to improve, our physical therapists will perform initial evaluation of pt's status upon admission and devise an individualized program for Endurance Training Weakness - to improve, our physical therapists will perform initial evaluation of pt's status upon a dmission and devise an individualized program for Aquatic Therapy, Neuromuscular Reeducation, and Str engthening Achieving independence - to improve, our physical therapists will perform initial evaluation of pt's status upon admission and devise an individualized program for Community Reintegration Activities - Diet - Liquid Texture Continue Regular - Tube Feed Continue N/A - Skin care per protocol - Diet - Solid Texture Continue Regular - Shower allowing shower - Occupational Therapy ADL deficits - to improve, our occupation therapists will perform initial evaluation of pt's status upon admission and devise an individualized program for Bathing, Bed mobility, Community Reintegratio n, Cooking, Dressing, Eating, Fine Motor Skills, Grooming, Homemaking, Kitchen Mobility, Laundry, Pat ient Education, Safety Awareness, Splinting - Positioning, Transfers(Toilet, Tub, Shower), and Wheel Chair Management Need for care nurse rn - to improve, our occupation therapists will perform initial evaluation of pt's status upon admission and devise an individualized program for Caregiver Training Weakness - to improve, our occupation therapists will perform initial evaluation of pt's status upon admission and devise an individualized program for Aquatic Therapy, Balance, Endurance, UE ROM, and UE strengthening FUNCTIONAL STATUS: UPDATED AT WEEKLY TEAM CONFERENCE - Bladder Same accident frequency: 7-Ind - No accidents in the past 7 days - Bowel Same accident frequency: 7-Ind - No accidents in the past 7 days - Walking Same score based on distance walked: 1(<=50ft) FUNCTIONAL STATUS: - Self-Care A. Eating Ind B. Grooming Ind C. Bathing Ind D. Dressing - Upper Ind E. Dressing - Lower maxA F. Toileting maxA - Sphincter Control G: Bladder control Ind H: Bowel control Ind - Transfers Control I. Bed/Chair/Wheelchair maxA J. Toilet maxA K. Tub/Shower maxA - Locomotion L. Walk/Wheelchair (B) Dep M. Stairs ADNO - Communication N. Comprehension (B) Ind O. Expression (B) Ind - Social Cognition P. Social Interaction Ind Q. Problem Solving Ind R. Memory Ind - Endurance Poor - Balance Poor - Safety Awareness Poor CURRENT FUNC. DEFICITS: Endurance, Safety Awareness, Transfers Control, Balance, Locomotion, and Self-Care SIGNATURE PANEL: (CDT)
[2018-02-07] MEDS: DOCUSATE NA/SENNA CONC 1 TAB PO PRN (20:30)
--- NOTE | 2018-02-08 04:49 | FAST ---
SHIFT START DATE/TIME: 02/07/2018 19:00 (CDT) SHIFT END DATE/TIME: 02/08/2018 07:00 (CDT) NAME FRANCE BAUMANN DATE OF : 1945 DATE OF ADMISSION: 01/31/2018 15:46 (CDT) PHONE: AGE: 72 N# [id number] GENDER: Female ENCOUNTER PHYSICIAN: Dr. Luke Major M.D. ADMISSION DIAGNOSIS: - Orthopaedic Disorders 08 - Pelvic Fracture (08.3) pubic ramus fx, humerus fx, hip pain. EATING: EATING - STEP 1: Does the patient require assistance when eating? Yes. EATING - STEP 2: Does the patient require the assistance of a helper? No, patient only requires an assistive device, O R s/he takes more than reasonable time to eat, OR there is a safety concern, OR s/he requires modifie d food consistency EATING - SCORE: 6-TINO GROOMING: Comb/brush hair Oral care Wash, rinse, and dry face Wash, rinse, and dry hands GROOMING - STEP 1: Does the patient require assistance when grooming? Yes. GROOMING - STEP 2: Does the patient require the assistance of a helper? No. The patient only requires an assistive devic e, OR takes more than reasonable time to groom, OR there is a concern for safety as the patient groom s GROOMING - SCORE: 6-TINO BATHING: Activity did not occur on this shift BATHING - SCORE: 0-UNK DRESSING - UPPER BODY: Patient is not dressing in public clothing ARTICLES SCORE Total number of steps: 0 DRESSING - UPPER BODY - SCORE: 0-UNK DRESSING - LOWER BODY: Patient is not dressing in public clothing ARTICLES SCORE Total number of steps: 0 DRESSING - LOWER BODY - SCORE: 0-UNK TOILETING: TOILETING - STEP 1: Does the patient require assistance with toileting? Yes. TOILETING - STEP 2: Does the patient require the assistance of a helper? No. TOILETING - SCORE: 6-TINO BLADDER MANAGEMENT: BLADDER MANAGEMENT - STEP 1: Does the patient control the bladder completely and intentionally without equipment or devices or med ications, and is always continent? No. BLADDER MANAGEMENT - STEP 2: Does the patient require the assistance of a helper? No, patient requires and independently uses an a ssistive device, such as a urinal, bedpan, bedside commode, catheter, absorbent pad, or collecting de vice BLADDER MANAGEMENT - SCORE: 6-TINO BLADDER MANAGEMENT - FREQUENCY OF ACCIDENTS: BLADDER MANAGEMENT(FA) - STEP 1: How many accidents has the patient had during the current shift? 0 BOWEL MANAGEMENT: Activity did not occur on this shift BOWEL MANAGEMENT - SCORE: 7-IND TRANSFERS: BED, CHAIR, WHEELCHAIR: TRANSFERS: BED, CHAIR, WHEELCHAIR - STEP 1: Does the patient require assistance with bed, chair, or wheelchair transfers? Yes. TRANSFERS: BED, CHAIR, WHEELCHAIR - STEP 2: Does the patient require the assistance of a helper? No. Patient only requires an assistive device fo r bed, chair, wheelchair transfers such as a sliding board, grab bar, or brace, OR s/he takes more th an reasonable time, OR there is a safety concern when s/he performs the transfers TRANSFERS: BED, CHAIR, WHEELCHAIR - SCORE: 6-TINO TRANSFERS: TOILET: TRANSFERS: TOILET - STEP 1: Does the patient require assistance with toilet transfers? Yes. TRANSFERS: TOILET - STEP 2: Does the patient require the assistance of a helper? No. Patient only requires an assistive device sahni ch as a grab bar or special seat, OR s/he takes more than reasonable time to perform toilet transfers , OR there is a safety concern when s/he performs toilet transfers. TRANSFERS: TOILET - SCORE: 6-TINO TRANSFERS: SHOWER: Activity did not occur on this shift TRANSFERS: SHOWER - SCORE: 0-UNK TRANSFERS: TUB: Activity did not occur on this shift TRANSFERS: TUB - SCORE: 0-UNK LOCOMOTION: WALK: Activity did not occur on this shift LOCOMOTION: WALK - SCORE: 0-UNK LOCOMOTION: WHEELCHAIR: Activity did not occur on this shift LOCOMOTION: WHEELCHAIR - SCORE: 0-UNK COMPREHENSION: COMPREHENSION: TYPE: Both COMPREHENSION - STEP 1: Does the patient require help to understand complex and abstract ideas (such as current events, finan shea, discharge planning, medical issues, relationships, etc)? No. COMPREHENSION - STEP 2: Does the patient need extra time, require an assistive device (such as glasses, hearing aids, or an a ugmentative communication system), OR does s/he have mild difficulty expressing complex and abstract ideas (including mild dysarthria or mild word-finding problems)? Yes. COMPREHENSION - SCORE: 6-TINO EXPRESSION EXPRESSION: TYPE: Both EXPRESSION - STEP 1: Does the patient require help expressing complex and abstract ideas (such as current events, finances , discharge planning, medical issues, relationships, etc)? No. EXPRESSION - STEP 2: Does the patient need extra time, require an assistive device (such as augmentive communication syste m or a communication board), OR does s/he have mild difficulty expressing complex and abstract ideas (including mild dysarthria or mild word-find problems)? No. EXPRESSION - SCORE: 7-IND SOCIAL INTERACTION: SOCIAL INTERACTION - STEP 1: Does the patient require a helper to interact with others in social and therapeutic situations? No. SOCIAL INTERACTION - STEP 2: Does the patient need extra time in social situations, OR does s/he interact with staff, other patien ts, and family members ONLY in structured environments, OR does s/he require medication for social in teraction? Yes, patient requires medication for social interaction SOCIAL INTERACTION - SCORE: 6-TINO PROBLEM SOLVING: PROBLEM SOLVING - STEP 1: Does the patient need help to solve complex problems such as managing a checking account or confronti ng interpersonal problems? No. PROBLEM SOLVING - STEP 2: Does the patient require extra time to make decisions or solve problems, OR does s/he have slight dif ficulty reading, initiating, or self-correcting in unfamiliar situations? Yes, patient needs extra ti me. PROBLEM SOLVING - SCORE: 6-TINO MEMORY: MEMORY - STEP 1: Does the patient need help to remember frequently encountered people, daily routines, and executing r equests? No. MEMORY - STEP 2: Does the patient have slight difficulty recognizing frequently encountered people, daily routines, or executing requests without the need for repetition or using self-initiated or environmental cues to remember? Yes. MEMORY - SCORE: 6-TINO SIGNATURE PANEL: The following modified sections: Eating - Score, Grooming - Score, Bathing - Score, Dressing - Upper Body - Score, Dressing - Lower Body - Score, Toileting - Score, Bladder Management - Score, Bowel Man agement - Score, Transfers: Bed, Chair, Wheelchair - Score, Transfers: Toilet - Score, Transfers: Shonna wer - Score, Transfers: Tub - Score, Locomotion: Walk - Score, Locomotion: Wheelchair - Score, Compre hension - Score, Expression - Score, Social Interaction - Score, Problem Solving - Score, Memory - Sc ore were [electronically] signed by Angel MarshallNFlora on TueFeb 08 2018 03:50:45 T-0500 ( Central Daylight Time)
[2018-02-08] MEDS: ASCORBIC ACID 500 MG TABLET PO SCH ×2 (07:38→20:42)
[2018-02-08] MEDS: BISOPROLOL 5 MG TABLET PO SCH (07:38)
[2018-02-08] MEDS: VITAMIN D 5,000 UNIT CAP PO SCH (07:38)
[2018-02-08] MEDS: HYDROCODONE/APAP 7.5/325 MG TAB PO PRN (07:40)
[2018-02-08] MEDS: ASPIRIN EC 81 MG TAB PO SCH (07:40)
[2018-02-08] MEDS: PANTOPRAZOLE 40MG TABLET PO SCH (07:40)
[2018-02-08] MEDS: SPIRONOLACTONE 25 MG TABLET PO SCH (07:41)
[2018-02-08] MEDS: CYANOCOBALAMIN 1,000 MCG TAB PO SCH (07:41)
[2018-02-08] MEDS: FISH OIL PO SCH (07:41)
[2018-02-08] MEDS: GABAPENTIN 300 MG CAP PO SCH ×3 (07:41→20:42)
[2018-02-08] MEDS: TRIAMCINOLONE 0.1% OINT 15 GM TOP SCH ×2 (07:42→20:42)
[2018-02-08] MEDS: TRAMADOL HCL 50 MG TAB PO PRN ×2 (12:28→20:43)
--- NOTE | 2018-02-08 15:22 | FAST ---
SHIFT START DATE/TIME: 02/08/2018 07:00 (CDT) SHIFT END DATE/TIME: 02/08/2018 19:00 (CDT) NAME FRANCE BAUMANN DATE OF : 1945 DATE OF ADMISSION: 01/31/2018 15:46 (CDT) PHONE: AGE: 72 N# [id number] GENDER: Female ENCOUNTER PHYSICIAN: Dr. Luke Major M.D. ADMISSION DIAGNOSIS: - Orthopaedic Disorders 08 - Pelvic Fracture (08.3) pubic ramus fx, humerus fx, hip pain. EATING: EATING - STEP 1: Does the patient require assistance when eating? Yes. EATING - STEP 2: Does the patient require the assistance of a helper? No, patient only requires an assistive device, O R s/he takes more than reasonable time to eat, OR there is a safety concern, OR s/he requires modifie d food consistency EATING - SCORE: 6-TINO GROOMING: Comb/brush hair Oral care Wash, rinse, and dry face Wash, rinse, and dry hands GROOMING - STEP 1: Does the patient require assistance when grooming? Yes. GROOMING - STEP 2: Does the patient require the assistance of a helper? No. The patient only requires an assistive devic e, OR takes more than reasonable time to groom, OR there is a concern for safety as the patient groom s GROOMING - SCORE: 6-TINO BATHING: Activity did not occur on this shift BATHING - SCORE: 0-UNK DRESSING - UPPER BODY: Activity did not occur on this shift ARTICLES SCORE Total number of steps: 0 DRESSING - UPPER BODY - SCORE: 0-UNK DRESSING - LOWER BODY: Activity did not occur on this shift ARTICLES SCORE Total number of steps: 0 DRESSING - LOWER BODY - SCORE: 0-UNK TOILETING: TOILETING - STEP 1: Does the patient require assistance with toileting? Yes. TOILETING - STEP 2: Does the patient require the assistance of a helper? No. TOILETING - SCORE: 6-TINO BLADDER MANAGEMENT: BLADDER MANAGEMENT - STEP 1: Does the patient control the bladder completely and intentionally without equipment or devices or med ications, and is always continent? No. BLADDER MANAGEMENT - STEP 2: Does the patient require the assistance of a helper? No, patient requires and independently uses an a ssistive device, such as a urinal, bedpan, bedside commode, catheter, absorbent pad, or collecting de vice BLADDER MANAGEMENT - SCORE: 6-TINO BOWEL MANAGEMENT: Activity did not occur on this shift BOWEL MANAGEMENT - SCORE: 7-IND TRANSFERS: BED, CHAIR, WHEELCHAIR: TRANSFERS: BED, CHAIR, WHEELCHAIR - STEP 1: Does the patient require assistance with bed, chair, or wheelchair transfers? Yes. TRANSFERS: BED, CHAIR, WHEELCHAIR - STEP 2: Does the patient require the assistance of a helper? No. Patient only requires an assistive device fo r bed, chair, wheelchair transfers such as a sliding board, grab bar, or brace, OR s/he takes more th an reasonable time, OR there is a safety concern when s/he performs the transfers TRANSFERS: BED, CHAIR, WHEELCHAIR - SCORE: 6-TINO TRANSFERS: TOILET: TRANSFERS: TOILET - STEP 1: Does the patient require assistance with toilet transfers? Yes. TRANSFERS: TOILET - STEP 2: Does the patient require the assistance of a helper? Yes. TRANSFERS: TOILET - STEP 3: How much assistance does the patient require from the helper? Only supervision, cuing, coaxing, OR he lp to set out transfer equipment or to lock brakes and/or lift foot rests TRANSFERS: TOILET - SCORE: 5-SUP TRANSFERS: SHOWER: Activity did not occur on this shift TRANSFERS: SHOWER - SCORE: 0-UNK TRANSFERS: TUB: Activity did not occur on this shift TRANSFERS: TUB - SCORE: 0-UNK LOCOMOTION: WALK: Activity did not occur on this shift LOCOMOTION: WALK - SCORE: 0-UNK LOCOMOTION: WHEELCHAIR: Activity did not occur on this shift LOCOMOTION: WHEELCHAIR - SCORE: 0-UNK COMPREHENSION: COMPREHENSION - SCORE: 0-UNK EXPRESSION EXPRESSION - SCORE: 0-UNK SOCIAL INTERACTION: SOCIAL INTERACTION - SCORE: 0-UNK PROBLEM SOLVING: PROBLEM SOLVING - SCORE: 0-UNK MEMORY: MEMORY - SCORE: 0-UNK SIGNATURE PANEL: The following modified sections: Eating - Score, Grooming - Score, Bathing - Score, Dressing - Upper Body - Score, Dressing - Lower Body - Score, Toileting - Score, Bladder Management - Score, Bowel Man agement - Score, Transfers: Bed, Chair, Wheelchair - Score, Transfers: Toilet - Score, Transfers: Shonna wer - Score, Transfers: Tub - Score, Locomotion: Walk - Score, Locomotion: Wheelchair - Score, Compre hension - Score, Expression - Score, Social Interaction - Score, Problem Solving - Score, Memory - Sc ore were [electronically] signed by Aayush Reeves on TueFeb 08 2018 14:23:38 GMT-0500 (Central Daylight Time)
--- NOTE | 2018-02-08 16:05 | FAST ---
ENCOUNTER DATE AND TIME: 02/08/2018 08:00 (CDT) NAME FRANCE BAUMANN DATE OF : 1945 DATE OF ADMISSION: 01/31/2018 15:46 (CDT) PHONE: AGE: 72 N# [id number] GENDER: Female ENCOUNTER PHYSICIAN: Dr. Luke Major M.D. ADMISSION DIAGNOSIS: - Orthopaedic Disorders 08 - Pelvic Fracture (08.3) pubic ramus fx, humerus fx, hip pain. EATING: Activity did not occur on this shift EATING - SCORE: 0-UNK GROOMING: Activity did not occur on this shift GROOMING - SCORE: 0-UNK BATHING: Activity did not occur on this shift BATHING - SCORE: 0-UNK DRESSING - UPPER BODY: Activity did not occur on this shift Patient is not dressing in public clothing ARTICLES SCORE Total number of steps: 0 DRESSING - UPPER BODY - SCORE: 0-UNK DRESSING - LOWER BODY: Activity did not occur on this shift Patient is not dressing in public clothing ARTICLES SCORE Total number of steps: 0 DRESSING - LOWER BODY - SCORE: 0-UNK TOILETING: Activity did not occur on this shift TOILETING - SCORE: 0-UNK BLADDER MANAGEMENT: Activity did not occur on this shift BLADDER MANAGEMENT - SCORE: 7-IND BOWEL MANAGEMENT: Activity did not occur on this shift BOWEL MANAGEMENT - SCORE: 7-IND TRANSFERS: BED, CHAIR, WHEELCHAIR: TRANSFERS: BED, CHAIR, WHEELCHAIR - STEP 1: Does the patient require assistance with bed, chair, or wheelchair transfers? Yes. TRANSFERS: BED, CHAIR, WHEELCHAIR - STEP 2: Does the patient require the assistance of a helper? No. Patient only requires an assistive device fo r bed, chair, wheelchair transfers such as a sliding board, grab bar, or brace, OR s/he takes more th an reasonable time, OR there is a safety concern when s/he performs the transfers TRANSFERS: BED, CHAIR, WHEELCHAIR - SCORE: 6-TINO TRANSFERS: TOILET: Activity did not occur on this shift TRANSFERS: TOILET - SCORE: 0-UNK TRANSFERS: SHOWER: Activity did not occur on this shift TRANSFERS: SHOWER - SCORE: 0-UNK TRANSFERS: TUB: Activity did not occur on this shift TRANSFERS: TUB - SCORE: 0-UNK LOCOMOTION: WALK: LOCOMOTION: WALK - STEP 1: Does the patient need help to walk 150 feet? Yes. LOCOMOTION: WALK - STEP 2: How much assistance does the patient require to walk a minimum of 150 feet? Patient walks less than 1 50 feet - but more than 50 feet - with the assistance of only one helper LOCOMOTION: WALK - SCORE: 2-MAX LOCOMOTION: WHEELCHAIR: LOCOMOTION: WHEELCHAIR - STEP 1: Does the patient need help to go 150 feet in a wheelchair? Yes. LOCOMOTION: WHEELCHAIR - STEP 2: How much assistance does the patient need from the helper? Only supervision, cuing, or coaxing LOCOMOTION: WHEELCHAIR - SCORE: 5-SUP LOCOMOTION: STAIRS: Activity did not occur on this shift LOCOMOTION: STAIRS - SCORE: 0-UNK COMPREHENSION: COMPREHENSION - SCORE: 0-UNK EXPRESSION EXPRESSION - SCORE: 0-UNK SOCIAL INTERACTION: SOCIAL INTERACTION - SCORE: 0-UNK PROBLEM SOLVING: PROBLEM SOLVING - SCORE: 0-UNK MEMORY: MEMORY - SCORE: 0-UNK SIGNATURE PANEL: The following modified sections: Transfers: Bed, Chair, Wheelchair - Score, Transfers: Toilet - Score , Locomotion: Walk - Score, Locomotion: Wheelchair - Score, Locomotion: Stairs - Score were [electron florina] signed by Melvin Millan PTA on TueFeb 08 2018 15:07:04 GMT-0500 (Central Daylight Time)
--- NOTE | 2018-02-08 17:44 | R.PN ---
ENCOUNTER DATE AND TIME: 02/08/2018 16:43 (CDT) NAME FRANCE BAUMANN DATE OF : 1945 DATE OF ADMISSION: 01/31/2018 15:46 (CDT) pubic ramus fx, humerus fx, hip painCHIEF COMPLAINT: Right arm and hip fracture SUBJECTIVE: Pt denied any Shortness of Breath. Pt denied any depression. Bed mobility done with modified independence. Propelled wheelchair 180' with standby assistance. Ambu lated 89' with left hemiwalker and standby assistance. VITAL SIGNS Temperature: 97.4 F SBP/DBP: 127/60 Pulse: 76 Resp: 16 MEDICATION ALLERGIES: amoxicillin CODEINE ibuprofen etodolac annaprox ENVIRONMENTAL ALLERGIES: - Substance Allergies None Known - Other Allergies None Known NURSING: - Shower allowing shower - Skin care per protocol ACTIVITIES OOB only with supervision THERAPIES: - Occupational Therapy Evaluate and Treat. - Physical Therapy Evaluate and Treat. PHYSICAL EXAM - Gen Alert and awake Lying in bed No apparent distress Oriented to: person, time, and place - Skin No skin breakdown. Normacephalic - Eyes No abnormalities - ENMT No abnormalities - Neck No abnormalities - CVS RRR - Chest Clear - Abd Soft - GI Non distended Deferred - No abnormalities - Ext No significant edema - MSK 4/5 weakness in both lower extremities. - Neuro 4/5 strength bilaterally lower extremities. - Psych No abnormalities ASSESSMENT: Pt. is a 72 yo Right-handed white female.On 01/29/2018 she was admitted to [facility] with diagnosis pubic ramus fx, humerus fx, hip pain.Her impairment category is Orthopaedic Dis orders 08 - Pelvic Fracture (08.3).Pre-morbidly, Pt. was independent/mod-I in Sphincter Control, Tra nsfers Control, Communication, Social Cognition, Self-Care, and Locomotion; and she had good Sphincte r Control.Currently, she has deficits of Endurance, Safety Awareness, Transfers Control, Balance, Loc omotion, and Self-Care.Pt. is now referred to [facility] for acute in-patient rehabilitation in order to maximize patient's functional independence in activities of daily living, strength, ROM, and mobility.- Rehab Goal Patient has realistic goal of being discharged at assistance level 6-Candy to reside at Home with Fam brian/Relatives. MDM/PLAN: - Diet Type Continue Regular - Physical Therapy Decreased range of motion - to improve, our physical therapists will perform initial evaluation of p t's status upon admission and devise an individualized program for increasing patient's Range of Willis on. Gait dysfunction - to improve, our physical therapists will perform initial evaluation of pt's statu s upon admission and devise an individualized program for Gait Training, and Wheel Chair mobility Inability to transfer - to improve, our physical therapists will perform initial evaluation of pt's status upon admission and devise an individualized program for Bed mobility Need for home safety evaluation - to improve, our physical therapists will perform initial evaluatio n of pt's status upon admission and devise an individualized program for Home Evaluation Need in caregiver upon discharge - to improve, our physical therapists will perform initial evaluati on of pt's status upon admission and devise an individualized program for Caregiver Training New precaution - to improve, our physical therapists will perform initial evaluation of pt's status upon admission and devise an individualized program for Patient precaution education Edema - to improve, our physical therapists will perform initial evaluation of pt's status upon admi ssion and devise an individualized program for Elevation Training, and Lymphedema Therapy Poor balance - to improve, our physical therapists will perform initial evaluation of pt's status up on admission and devise an individualized program for Balance Training Poor endurance - to improve, our physical therapists will perform initial evaluation of pt's status upon admission and devise an individualized program for Endurance Training Weakness - to improve, our physical therapists will perform initial evaluation of pt's status upon a dmission and devise an individualized program for Aquatic Therapy, Neuromuscular Reeducation, and Str engthening Achieving independence - to improve, our physical therapists will perform initial evaluation of pt's status upon admission and devise an individualized program for Community Reintegration Activities - Diet - Liquid Texture Continue Regular - Tube Feed Continue N/A - Skin care per protocol - Diet - Solid Texture Continue Regular - Shower allowing shower - Occupational Therapy ADL deficits - to improve, our occupation therapists will perform initial evaluation of pt's status upon admission and devise an individualized program for Bathing, Bed mobility, Community Reintegratio n, Cooking, Dressing, Eating, Fine Motor Skills, Grooming, Homemaking, Kitchen Mobility, Laundry, Pat ient Education, Safety Awareness, Splinting - Positioning, Transfers(Toilet, Tub, Shower), and Wheel Chair Management Need for health care marketing manager - to improve, our occupation therapists will perform initial evaluation of pt's status upon admission and devise an individualized program for Caregiver Training Weakness - to improve, our occupation therapists will perform initial evaluation of pt's status upon admission and devise an individualized program for Aquatic Therapy, Balance, Endurance, UE ROM, and UE strengthening FUNCTIONAL STATUS: UPDATED AT WEEKLY TEAM CONFERENCE - Bladder Same accident frequency: 7-Ind - No accidents in the past 7 days - Bowel Same accident frequency: 7-Ind - No accidents in the past 7 days - Walking Same score based on distance walked: 1(<=50ft) FUNCTIONAL STATUS: - Self-Care A. Eating Ind B. Grooming Ind C. Bathing Ind D. Dressing - Upper Ind E. Dressing - Lower maxA F. Toileting maxA - Sphincter Control G: Bladder control Ind H: Bowel control Ind - Transfers Control I. Bed/Chair/Wheelchair maxA J. Toilet maxA K. Tub/Shower maxA - Locomotion L. Walk/Wheelchair (B) Dep M. Stairs ADNO - Communication N. Comprehension (B) Ind O. Expression (B) Ind - Social Cognition P. Social Interaction Ind Q. Problem Solving Ind R. Memory Ind - Endurance Poor - Balance Poor - Safety Awareness Poor CURRENT FUNC. DEFICITS: Endurance, Safety Awareness, Transfers Control, Balance, Locomotion, and Self-Care SIGNATURE PANEL: (CDT)
--- NOTE | 2018-02-08 18:04 | P.PN ---
Subjective Date of Service: 02/08/18 Chief Complaint: CONSTIPATED FROM MEDS Subjective: Improving (STILL I NPAIN FROM BROKEN BONES.) SHE IS A LOT BETTER NO PAIN UNLESS MOVES. WILL DO BMD LATER. SHE HAS QUIT NORCO NOW. IN A LOT OF PAIN. Review of Systems 10-point ROS is otherwise unremarkable Physical Examination - Vital Signs Temperature: 97.4 F Blood Pressure: 127/60 Pulse: 76 Respirations: 16 Pulse Ox (%): 95 - Physical Exam General: Alert, In no apparent distress HEENT: Atraumatic, PERRLA, EOMI Neck: Supple, JVD not distended Respiratory: Clear to auscultation bilaterally, Normal air movement Cardiovascular: Regular rate/rhythm, Normal S1 S2 Gastrointestinal: Normal bowel sounds, No tenderness Musculoskeletal: Tenderness (R ARM.) Integumentary: No rashes Neurological: Normal speech, Normal tone, Normal affect Lymphatics: No axilla or inguinal lymphadenopathy - Studies Medications List Reviewed: Yes Assessment And Plan - Current Problems (Diagnosis) (1) Constipation Current Visit: Yes Status: Acute Plan: MOM AND MIRALAX STOP NORCO START TRAMADOL LOT BETTER. (2) Hypokalemia Current Visit: Yes Status: Acute Plan: STOP KCL NOW. ALREADY ON SPIROLOLACTONE. (3) Pubic ramus fracture Onset Date: 02/02/18 Current Visit: Yes Status: Acute Plan: FU PT PAIN MX HEALING IN TWO MNTHS. OT PT PAIN MRELIEV CHANGE TO ULTRAM. RESUME PT. Qualifiers: Encounter type: subsequent encounter Fracture type: closed Laterality: right Fracture healing: with routine healing Qualified Code(s): S32.591D - Other specified fracture of right pubis, subsequent encounter for fracture with routine healing (4) Humerus fracture Onset Date: 01/30/18 Current Visit: No Status: Acute Plan: MORE PAIN X RAY NO DIFF. RESUME TRAMADOL 2 PO QID PRN. Qualifiers: Encounter type: subsequent encounter Fracture type: closed Fracture alignment: nondisplaced Laterality: right Fracture healing: with routine healing
[2018-02-08] MEDS: DOCUSATE NA/SENNA CONC 1 TAB PO PRN (20:42)
--- NOTE | 2018-02-09 03:53 | FAST ---
SHIFT START DATE/TIME: 02/08/2018 19:00 (CDT) SHIFT END DATE/TIME: 02/09/2018 07:00 (CDT) NAME FRANCE BAUMANN DATE OF : 1945 DATE OF ADMISSION: 01/31/2018 15:46 (CDT) PHONE: AGE: 72 N# [id number] GENDER: Female ENCOUNTER PHYSICIAN: Dr. Luke Major M.D. ADMISSION DIAGNOSIS: - Orthopaedic Disorders 08 - Pelvic Fracture (08.3) pubic ramus fx, humerus fx, hip pain. EATING: Activity did not occur on this shift EATING - SCORE: 0-UNK GROOMING: Oral care Wash, rinse, and dry hands GROOMING - STEP 1: Does the patient require assistance when grooming? Yes. GROOMING - STEP 2: Does the patient require the assistance of a helper? No. The patient only requires an assistive devic e, OR takes more than reasonable time to groom, OR there is a concern for safety as the patient groom s GROOMING - SCORE: 6-TINO BATHING: Activity did not occur on this shift BATHING - SCORE: 0-UNK DRESSING - UPPER BODY: Patient is not dressing in public clothing ARTICLES SCORE Total number of steps: 0 DRESSING - UPPER BODY - SCORE: 0-UNK DRESSING - LOWER BODY: Patient is not dressing in public clothing ARTICLES SCORE Total number of steps: 0 DRESSING - LOWER BODY - SCORE: 0-UNK TOILETING: TOILETING - STEP 1: Does the patient require assistance with toileting? Yes. TOILETING - STEP 2: Does the patient require the assistance of a helper? No. TOILETING - SCORE: 6-TINO BLADDER MANAGEMENT: BLADDER MANAGEMENT - STEP 1: Does the patient control the bladder completely and intentionally without equipment or devices or med ications, and is always continent? No. BLADDER MANAGEMENT - STEP 2: Does the patient require the assistance of a helper? No, patient only requires extra time BLADDER MANAGEMENT - SCORE: 6-TINO BOWEL MANAGEMENT: Activity did not occur on this shift BOWEL MANAGEMENT - SCORE: 7-IND TRANSFERS: BED, CHAIR, WHEELCHAIR: TRANSFERS: BED, CHAIR, WHEELCHAIR - STEP 1: Does the patient require assistance with bed, chair, or wheelchair transfers? Yes. TRANSFERS: BED, CHAIR, WHEELCHAIR - STEP 2: Does the patient require the assistance of a helper? No. Patient only requires an assistive device fo r bed, chair, wheelchair transfers such as a sliding board, grab bar, or brace, OR s/he takes more th an reasonable time, OR there is a safety concern when s/he performs the transfers TRANSFERS: BED, CHAIR, WHEELCHAIR - SCORE: 6-TINO TRANSFERS: TOILET: TRANSFERS: TOILET - STEP 1: Does the patient require assistance with toilet transfers? Yes. TRANSFERS: TOILET - STEP 2: Does the patient require the assistance of a helper? No. Patient only requires an assistive device sahni ch as a grab bar or special seat, OR s/he takes more than reasonable time to perform toilet transfers , OR there is a safety concern when s/he performs toilet transfers. TRANSFERS: TOILET - SCORE: 6-TINO TRANSFERS: SHOWER: Activity did not occur on this shift TRANSFERS: SHOWER - SCORE: 0-UNK TRANSFERS: TUB: Activity did not occur on this shift TRANSFERS: TUB - SCORE: 0-UNK LOCOMOTION: WALK: Activity did not occur on this shift LOCOMOTION: WALK - SCORE: 0-UNK LOCOMOTION: WHEELCHAIR: Activity did not occur on this shift LOCOMOTION: WHEELCHAIR - SCORE: 0-UNK COMPREHENSION: COMPREHENSION: TYPE: Both COMPREHENSION - STEP 1: Does the patient require help to understand complex and abstract ideas (such as current events, finan shea, discharge planning, medical issues, relationships, etc)? No. COMPREHENSION - STEP 2: Does the patient need extra time, require an assistive device (such as glasses, hearing aids, or an a ugmentative communication system), OR does s/he have mild difficulty expressing complex and abstract ideas (including mild dysarthria or mild word-finding problems)? Yes. COMPREHENSION - SCORE: 6-TINO EXPRESSION EXPRESSION: TYPE: Both EXPRESSION - STEP 1: Does the patient require help expressing complex and abstract ideas (such as current events, finances , discharge planning, medical issues, relationships, etc)? No. EXPRESSION - STEP 2: Does the patient need extra time, require an assistive device (such as augmentive communication syste m or a communication board), OR does s/he have mild difficulty expressing complex and abstract ideas (including mild dysarthria or mild word-find problems)? Yes. EXPRESSION - SCORE: 6-TINO SOCIAL INTERACTION: SOCIAL INTERACTION - STEP 1: Does the patient require a helper to interact with others in social and therapeutic situations? No. SOCIAL INTERACTION - STEP 2: Does the patient need extra time in social situations, OR does s/he interact with staff, other patien ts, and family members ONLY in structured environments, OR does s/he require medication for social in teraction? Yes, patient needs extra time SOCIAL INTERACTION - SCORE: 6-TINO PROBLEM SOLVING: PROBLEM SOLVING - STEP 1: Does the patient need help to solve complex problems such as managing a checking account or confronti ng interpersonal problems? No. PROBLEM SOLVING - STEP 2: Does the patient require extra time to make decisions or solve problems, OR does s/he have slight dif ficulty reading, initiating, or self-correcting in unfamiliar situations? Yes, patient needs extra ti me. PROBLEM SOLVING - SCORE: 6-TINO MEMORY: MEMORY - STEP 1: Does the patient need help to remember frequently encountered people, daily routines, and executing r equests? No. MEMORY - STEP 2: Does the patient have slight difficulty recognizing frequently encountered people, daily routines, or executing requests without the need for repetition or using self-initiated or environmental cues to remember? Yes. MEMORY - SCORE: 6-TINO
[2018-02-09 06:27] LABS: Absolute Lymphocytes (CBC) 2.3 K/uL (0.7-4.9); Absolute Monocytes 0.9 K/uL (0.1-1.3); Absolute Neutrophil 5.1 K/uL (1.8-8.0); Basophils % 1.3 % (0-1.3); Hematocrit 36.9 % (36.0-45.0); Lymphocytes % 26.4 % (15.3-44.8); MCH 27.6 pg (27.0-35.0); MCV 84.5 fL (80-100); MPV 9.2 fL (7.6-11.3); Monocytes % 10.4 % (3.3-12.3); RBC Red Blood Cell Count 4.36 M/uL (3.86-4.86)
[2018-02-09 07:09] LABS: Albumin 3.3 g/dL (3.2-5.5); BUN Blood Urea Nitrogen 20 mg/dL (6-20); Bicarbonate 32 mEq/L (21-31); Glucose Level 106 mg/dL (65-120); Potassium 4.5 mEq/L (3.6-5.0); Prealbumin 18.4 mg/dl (18-38); Sodium Level 137 mEq/L (135-145)
[2018-02-09] MEDS: TRIAMCINOLONE 0.1% OINT 15 GM TOP SCH ×2 (08:00→20:17)
[2018-02-09] MEDS: FISH OIL PO SCH (08:00)
[2018-02-09] MEDS: PANTOPRAZOLE 40MG TABLET PO SCH (08:30)
[2018-02-09] MEDS: GABAPENTIN 300 MG CAP PO SCH ×3 (08:33→20:18)
[2018-02-09] MEDS: TRAMADOL HCL 50 MG TAB PO PRN ×2 (08:33→20:18)
[2018-02-09] MEDS: VITAMIN D 5,000 UNIT CAP PO SCH (08:33)
[2018-02-09] MEDS: BISOPROLOL 5 MG TABLET PO SCH (08:34)
[2018-02-09] MEDS: ASPIRIN EC 81 MG TAB PO SCH (08:34)
[2018-02-09] MEDS: ASCORBIC ACID 500 MG TABLET PO SCH ×2 (08:34→20:18)
[2018-02-09] MEDS: SPIRONOLACTONE 25 MG TABLET PO SCH (08:34)
[2018-02-09] MEDS: CYANOCOBALAMIN 1,000 MCG TAB PO SCH (08:34)
--- NOTE | 2018-02-09 11:04 | FAST ---
SHIFT START DATE/TIME: 02/09/2018 07:00 (CDT) SHIFT END DATE/TIME: 02/09/2018 19:00 (CDT) NAME FRANCE BAUMANN DATE OF : 1945 DATE OF ADMISSION: 01/31/2018 15:46 (CDT) PHONE: AGE: 72 N# [id number] GENDER: Female ENCOUNTER PHYSICIAN: Dr. Luke Major M.D. ADMISSION DIAGNOSIS: - Orthopaedic Disorders 08 - Pelvic Fracture (08.3) pubic ramus fx, humerus fx, hip pain. EATING: EATING - STEP 1: Does the patient require assistance when eating? Yes. EATING - STEP 2: Does the patient require the assistance of a helper? No, patient only requires an assistive device, O R s/he takes more than reasonable time to eat, OR there is a safety concern, OR s/he requires modifie d food consistency EATING - SCORE: 6-TINO GROOMING: Comb/brush hair Oral care Wash, rinse, and dry face Wash, rinse, and dry hands GROOMING - STEP 1: Does the patient require assistance when grooming? Yes. GROOMING - STEP 2: Does the patient require the assistance of a helper? No. The patient only requires an assistive devic e, OR takes more than reasonable time to groom, OR there is a concern for safety as the patient groom s GROOMING - SCORE: 6-TINO BATHING: Activity did not occur on this shift BATHING - SCORE: 0-UNK DRESSING - UPPER BODY: Activity did not occur on this shift ARTICLES SCORE Total number of steps: 0 DRESSING - UPPER BODY - SCORE: 0-UNK DRESSING - LOWER BODY: Activity did not occur on this shift ARTICLES SCORE Total number of steps: 0 DRESSING - LOWER BODY - SCORE: 0-UNK TOILETING: TOILETING - STEP 1: Does the patient require assistance with toileting? Yes. TOILETING - STEP 2: Does the patient require the assistance of a helper? No. TOILETING - SCORE: 6-TINO BLADDER MANAGEMENT: BLADDER MANAGEMENT - STEP 1: Does the patient control the bladder completely and intentionally without equipment or devices or med ications, and is always continent? No. BLADDER MANAGEMENT - STEP 2: Does the patient require the assistance of a helper? No, patient requires and independently uses an a ssistive device, such as a urinal, bedpan, bedside commode, catheter, absorbent pad, or collecting de vice BLADDER MANAGEMENT - SCORE: 6-TINO BOWEL MANAGEMENT: BOWEL MANAGEMENT - STEP 1: Does the patient control bowels completely and intentionally without equipment devices or medications AND is always continent? No. BOWEL MANAGEMENT - STEP 2: Does the patient require the assistance of a helper? No, patient requires medication for control such as stool softeners, suppositories, laxatives, enemas, or OTC medications BOWEL MANAGEMENT - SCORE: 6-TINO TRANSFERS: BED, CHAIR, WHEELCHAIR: TRANSFERS: BED, CHAIR, WHEELCHAIR - STEP 1: Does the patient require assistance with bed, chair, or wheelchair transfers? Yes. TRANSFERS: BED, CHAIR, WHEELCHAIR - STEP 2: Does the patient require the assistance of a helper? No. Patient only requires an assistive device fo r bed, chair, wheelchair transfers such as a sliding board, grab bar, or brace, OR s/he takes more th an reasonable time, OR there is a safety concern when s/he performs the transfers TRANSFERS: BED, CHAIR, WHEELCHAIR - SCORE: 6-TINO TRANSFERS: TOILET: TRANSFERS: TOILET - STEP 1: Does the patient require assistance with toilet transfers? Yes. TRANSFERS: TOILET - STEP 2: Does the patient require the assistance of a helper? No. Patient only requires an assistive device sahni ch as a grab bar or special seat, OR s/he takes more than reasonable time to perform toilet transfers , OR there is a safety concern when s/he performs toilet transfers. TRANSFERS: TOILET - SCORE: 6-TINO TRANSFERS: SHOWER: Activity did not occur on this shift TRANSFERS: SHOWER - SCORE: 0-UNK TRANSFERS: TUB: Activity did not occur on this shift TRANSFERS: TUB - SCORE: 0-UNK LOCOMOTION: WALK: Activity did not occur on this shift LOCOMOTION: WALK - SCORE: 0-UNK LOCOMOTION: WHEELCHAIR: Activity did not occur on this shift LOCOMOTION: WHEELCHAIR - SCORE: 0-UNK COMPREHENSION: COMPREHENSION - SCORE: 0-UNK EXPRESSION EXPRESSION - SCORE: 0-UNK SOCIAL INTERACTION: SOCIAL INTERACTION - SCORE: 0-UNK PROBLEM SOLVING: PROBLEM SOLVING - SCORE: 0-UNK MEMORY: MEMORY - SCORE: 0-UNK SIGNATURE PANEL: The following modified sections: Eating - Score, Grooming - Score, Bathing - Score, Dressing - Upper Body - Score, Dressing - Lower Body - Score, Toileting - Score, Bladder Management - Score, Bowel Man agement - Score, Transfers: Bed, Chair, Wheelchair - Score, Transfers: Toilet - Score, Transfers: Shonna wer - Score, Transfers: Tub - Score, Locomotion: Walk - Score, Locomotion: Wheelchair - Score, Compre hension - Score, Expression - Score, Social Interaction - Score, Problem Solving - Score, Memory - Sc ore were [electronically] signed by Aayush Reeves on TueFeb 09 2018 10:05:45 GMT-0500 (Central Daylight Time)
--- NOTE | 2018-02-09 15:56 | FAST ---
ENCOUNTER DATE AND TIME: 02/09/2018 08:00 (CDT) NAME FRANCE BAUMANN DATE OF : 1945 DATE OF ADMISSION: 01/31/2018 15:46 (CDT) PHONE: AGE: 72 N# [id number] GENDER: Female ENCOUNTER PHYSICIAN: Dr. Luke Major M.D. ADMISSION DIAGNOSIS: - Orthopaedic Disorders 08 - Pelvic Fracture (08.3) pubic ramus fx, humerus fx, hip pain. EATING: Activity did not occur on this shift EATING - SCORE: 0-UNK GROOMING: Activity did not occur on this shift GROOMING - SCORE: 0-UNK BATHING: Activity did not occur on this shift BATHING - SCORE: 0-UNK DRESSING - UPPER BODY: Activity did not occur on this shift Patient is not dressing in public clothing ARTICLES SCORE Total number of steps: 0 DRESSING - UPPER BODY - SCORE: 0-UNK DRESSING - LOWER BODY: Activity did not occur on this shift Patient is not dressing in public clothing ARTICLES SCORE Total number of steps: 0 DRESSING - LOWER BODY - SCORE: 0-UNK TOILETING: Activity did not occur on this shift TOILETING - SCORE: 0-UNK BLADDER MANAGEMENT: Activity did not occur on this shift BLADDER MANAGEMENT - SCORE: 7-IND BOWEL MANAGEMENT: Activity did not occur on this shift BOWEL MANAGEMENT - SCORE: 7-IND TRANSFERS: BED, CHAIR, WHEELCHAIR: TRANSFERS: BED, CHAIR, WHEELCHAIR - STEP 1: Does the patient require assistance with bed, chair, or wheelchair transfers? Yes. TRANSFERS: BED, CHAIR, WHEELCHAIR - STEP 2: Does the patient require the assistance of a helper? No. Patient only requires an assistive device fo r bed, chair, wheelchair transfers such as a sliding board, grab bar, or brace, OR s/he takes more th an reasonable time, OR there is a safety concern when s/he performs the transfers TRANSFERS: BED, CHAIR, WHEELCHAIR - SCORE: 6-TINO TRANSFERS: TOILET: Activity did not occur on this shift TRANSFERS: TOILET - SCORE: 0-UNK TRANSFERS: SHOWER: Activity did not occur on this shift TRANSFERS: SHOWER - SCORE: 0-UNK TRANSFERS: TUB: Activity did not occur on this shift TRANSFERS: TUB - SCORE: 0-UNK LOCOMOTION: WALK: Activity did not occur on this shift LOCOMOTION: WALK - SCORE: 0-UNK LOCOMOTION: WHEELCHAIR: LOCOMOTION: WHEELCHAIR - STEP 1: Does the patient need help to go 150 feet in a wheelchair? Yes. LOCOMOTION: WHEELCHAIR - STEP 2: How much assistance does the patient need from the helper? Only supervision, cuing, or coaxing LOCOMOTION: WHEELCHAIR - SCORE: 5-SUP LOCOMOTION: STAIRS: Activity did not occur on this shift LOCOMOTION: STAIRS - SCORE: 0-UNK COMPREHENSION: COMPREHENSION - SCORE: 0-UNK EXPRESSION EXPRESSION - SCORE: 0-UNK SOCIAL INTERACTION: SOCIAL INTERACTION - SCORE: 0-UNK PROBLEM SOLVING: PROBLEM SOLVING - SCORE: 0-UNK MEMORY: MEMORY - SCORE: 0-UNK SIGNATURE PANEL: The following modified sections: Transfers: Bed, Chair, Wheelchair - Score, Transfers: Toilet - Score , Locomotion: Walk - Score, Locomotion: Wheelchair - Score, Locomotion: Stairs - Score were [electron ically] signed by Melvin Millan PTA on TueFeb 09 2018 14:58:19 T-0500 (Central Daylight Time)
--- NOTE | 2018-02-09 16:23 | FAST ---
ENCOUNTER DATE AND TIME: 02/08/2018 08:00 (CDT) NAME FRANCE BAUMANN DATE OF : 1945 DATE OF ADMISSION: 01/31/2018 15:46 (CDT) PHONE: AGE: 72 N# [id number] GENDER: Female ENCOUNTER PHYSICIAN: Dr. Luke Major M.D. ADMISSION DIAGNOSIS: - Orthopaedic Disorders 08 - Pelvic Fracture (08.3) pubic ramus fx, humerus fx, hip pain. EATING: Activity did not occur on this shift EATING - SCORE: 0-UNK GROOMING: Comb/brush hair Oral care Wash, rinse, and dry face Wash, rinse, and dry hands GROOMING - STEP 1: Does the patient require assistance when grooming? No. GROOMING - SCORE: 7-IND BATHING: Abdomen Buttocks Chest Left arm Left lower leg and foot Left upper leg Perineal area Right arm Right lower leg and foot Right upper leg BATHING - STEP 1: Does the patient require assistance when bathing? Yes. BATHING - STEP 2: Does the patient require the assistance of a helper? Yes. BATHING - STEP 3: How much assistance does the patient require from the helper? Only prior preparation such as putting bathing equipment within reach, turning on water, checking water temperature BATHING - SCORE: 5-SUP DRESSING - UPPER BODY: T-shirt/pullover shirt (four steps) ARTICLES SCORE Total number of steps: 4 DRESSING - UPPER BODY - STEP 1: Does the patient require help when dressing above the waist? Yes. DRESSING - UPPER BODY - STEP 2: Does the patient require the assistance of a helper? Yes. DRESSING - UPPER BODY - STEP 3: Does the helper touch the patient while dressing? No. DRESSING - UPPER BODY - SCORE: 5-SUP DRESSING - LOWER BODY: Elastic waist pants (three steps) Slip-on shoe - Left foot (one step) Underwear (three steps) ARTICLES SCORE Total number of steps: 7 DRESSING - LOWER BODY - STEP 1: Does the patient require help when dressing below the waist? Yes. DRESSING - LOWER BODY - STEP 2: Does the patient require the assistance of a helper? Yes. DRESSING - LOWER BODY - STEP 3: Does the helper touch the patient while dressing? No. DRESSING - LOWER BODY - SCORE: 5-SUP TOILETING: Activity did not occur on this shift TOILETING - SCORE: 0-UNK BLADDER MANAGEMENT: Activity did not occur on this shift BLADDER MANAGEMENT - SCORE: 7-IND BOWEL MANAGEMENT: Activity did not occur on this shift BOWEL MANAGEMENT - SCORE: 7-IND TRANSFERS: BED, CHAIR, WHEELCHAIR: Activity did not occur on this shift TRANSFERS: BED, CHAIR, WHEELCHAIR - SCORE: 0-UNK TRANSFERS: TOILET: Activity did not occur on this shift TRANSFERS: TOILET - SCORE: 0-UNK TRANSFERS: SHOWER: TRANSFERS: SHOWER - STEP 1: Does the patient require assistance with shower transfers? Yes. TRANSFERS: SHOWER - STEP 2: Does the patient require the assistance of a helper? Yes. TRANSFERS: SHOWER - STEP 3: How much assistance does the patient require from the helper? Only supervision, cuing, coaxing, or he lp to set out transfer equipment or to lock brakes and/or lift foot rests TRANSFERS: SHOWER - SCORE: 5-SUP TRANSFERS: TUB: Activity did not occur on this shift TRANSFERS: TUB - SCORE: 0-UNK LOCOMOTION: WALK: Activity did not occur on this shift LOCOMOTION: WALK - SCORE: 0-UNK LOCOMOTION: WHEELCHAIR: Activity did not occur on this shift LOCOMOTION: WHEELCHAIR - SCORE: 0-UNK LOCOMOTION: STAIRS: Activity did not occur on this shift LOCOMOTION: STAIRS - SCORE: 0-UNK COMPREHENSION: COMPREHENSION: TYPE: Both COMPREHENSION - STEP 1: Does the patient require help to understand complex and abstract ideas (such as current events, finan shea, discharge planning, medical issues, relationships, etc)? No. COMPREHENSION - STEP 2: Does the patient need extra time, require an assistive device (such as glasses, hearing aids, or an a ugmentative communication system), OR does s/he have mild difficulty expressing complex and abstract ideas (including mild dysarthria or mild word-finding problems)? Yes. COMPREHENSION - SCORE: 6-TINO EXPRESSION EXPRESSION: TYPE: Both EXPRESSION - STEP 1: Does the patient require help expressing complex and abstract ideas (such as current events, finances , discharge planning, medical issues, relationships, etc)? No. EXPRESSION - STEP 2: Does the patient need extra time, require an assistive device (such as augmentive communication syste m or a communication board), OR does s/he have mild difficulty expressing complex and abstract ideas (including mild dysarthria or mild word-find problems)? Yes. EXPRESSION - SCORE: 6-TINO SOCIAL INTERACTION: SOCIAL INTERACTION - STEP 1: Does the patient require a helper to interact with others in social and therapeutic situations? No. SOCIAL INTERACTION - STEP 2: Does the patient need extra time in social situations, OR does s/he interact with staff, other patien ts, and family members ONLY in structured environments, OR does s/he require medication for social in teraction? Yes, patient needs extra time SOCIAL INTERACTION - SCORE: 6-TINO PROBLEM SOLVING: PROBLEM SOLVING - STEP 1: Does the patient need help to solve complex problems such as managing a checking account or confronti ng interpersonal problems? Yes. PROBLEM SOLVING - STEP 2: Does the patient solve basic routine problems half or more of the time? Yes. PROBLEM SOLVING - STEP 3: How often does the patient need help to solve basic routine problems? 10%-24% of the time PROBLEM SOLVING - SCORE: 4-MIN MEMORY: MEMORY - STEP 1: Does the patient need help to remember frequently encountered people, daily routines, and executing r equests? Yes. MEMORY - STEP 2: How often does the patient need help to remember frequently encountered people, daily routines, and e xecuting requests? 10% - 24% of the time MEMORY - SCORE: 4-MIN SIGNATURE PANEL: The following modified sections: Eating - Score, Grooming - Score, Bathing - Score, Dressing - Upper Body - Score, Dressing - Lower Body - Score, Toileting - Score, Transfers: Bed, Chair, Wheelchair - S core, Transfers: Toilet - Score, Transfers: Tub - Score, Transfers: Shower - Score, Comprehension - S core, Expression - Score, Social Interaction - Score, Problem Solving - Score, Memory - Score were [e lectronically] signed by Lindy Wells OT on TueFeb 09 2018 15:25:14 T-0500 ([facility] T [facility])
--- NOTE | 2018-02-09 18:08 | P.PN ---
Subjective Date of Service: 02/09/18 Chief Complaint: CONSTIPATED FROM MEDS Subjective: No C/O voiced SHE IS A LOT BETTER NO PAIN UNLESS MOVES. WILL DO BMD LATER. SHE HAS QUIT NORCO NOW. IN A LOT OF PAIN. SHE HAS KNEE PAIN AFTER SHE WAS USING WHEELCHAIR BACKWARDS FOR EXERCISE. Review of Systems 10-point ROS is otherwise unremarkable Physical Examination - Vital Signs Temperature: 97.2 F Blood Pressure: 129/63 Pulse: 65 Respirations: 14 Pulse Ox (%): 98 - Physical Exam General: Alert, In no apparent distress HEENT: Atraumatic, PERRLA, EOMI Neck: Supple, JVD not distended Respiratory: Clear to auscultation bilaterally, Normal air movement Cardiovascular: Regular rate/rhythm, Normal S1 S2 Gastrointestinal: Normal bowel sounds, No tenderness Musculoskeletal: No tenderness Integumentary: No rashes Neurological: Normal speech, Normal tone, Normal affect Lymphatics: No axilla or inguinal lymphadenopathy - Studies Laboratory Data (last 24 hrs) 02/09/18 06:00: Sodium 137, Potassium 4.5, BUN 20, Creatinine 0.58, Glucose 106 02/09/18 06:00: WBC 8.6 D, Hgb 12.1, Hct 36.9, Plt Count 366 D Medications List Reviewed: Yes Assessment And Plan - Current Problems (Diagnosis) (1) Constipation Current Visit: Yes Status: Acute Plan: MOM AND MIRALAX STOP NORCO START TRAMADOL LOT BETTER. NO MORE ISSUE. (2) Hypokalemia Current Visit: Yes Status: Acute Plan: STOP KCL NOW. ALREADY ON SPIROLOLACTONE. (3) Pubic ramus fracture Onset Date: 02/02/18 Current Visit: Yes Status: Acute Plan: FU PT PAIN MX HEALING IN TWO MNTHS. OT PT PAIN MRELIEV CHANGE TO ULTRAM. RESUME PT. BETTER SLOWLY. Qualifiers: Encounter type: subsequent encounter Fracture type: closed Laterality: right Fracture healing: with routine healing Qualified Code(s): S32.591D - Other specified fracture of right pubis, subsequent encounter for fracture with routine healing (4) Humerus fracture Onset Date: 01/30/18 Current Visit: No Status: Acute Plan: MORE PAIN X RAY NO DIFF. RESUME TRAMADOL 2 PO QID PRN. Qualifiers: Encounter type: subsequent encounter Fracture type: closed Fracture alignment: nondisplaced Laterality: right Fracture healing: with routine healing
[2018-02-09] MEDS: DOCUSATE NA/SENNA CONC 1 TAB PO PRN (20:18)
--- NOTE | 2018-02-10 03:52 | FAST ---
SHIFT START DATE/TIME: 02/09/2018 19:00 (CDT) SHIFT END DATE/TIME: 02/10/2018 07:00 (CDT) NAME FRANCE BAUMANN DATE OF : 1945 DATE OF ADMISSION: 01/31/2018 15:46 (CDT) PHONE: AGE: 72 N# [id number] GENDER: Female ENCOUNTER PHYSICIAN: Dr. Luke Major M.D. ADMISSION DIAGNOSIS: - Orthopaedic Disorders 08 - Pelvic Fracture (08.3) pubic ramus fx, humerus fx, hip pain. EATING: EATING - STEP 1: Does the patient require assistance when eating? Yes. EATING - STEP 2: Does the patient require the assistance of a helper? No, patient only requires an assistive device, O R s/he takes more than reasonable time to eat, OR there is a safety concern, OR s/he requires modifie d food consistency EATING - SCORE: 6-TINO GROOMING: Comb/brush hair Oral care Wash, rinse, and dry face Wash, rinse, and dry hands GROOMING - STEP 1: Does the patient require assistance when grooming? Yes. GROOMING - STEP 2: Does the patient require the assistance of a helper? Yes. GROOMING - STEP 3: How much assistance does the patient require from the helper? Only prior equipment preparation/set up from the helper GROOMING - SCORE: 5-SUP BATHING: Activity did not occur on this shift BATHING - SCORE: 0-UNK DRESSING - UPPER BODY: Patient is not dressing in public clothing ARTICLES SCORE Total number of steps: 0 DRESSING - UPPER BODY - SCORE: 0-UNK DRESSING - LOWER BODY: Patient is not dressing in public clothing ARTICLES SCORE Total number of steps: 0 DRESSING - LOWER BODY - SCORE: 0-UNK TOILETING: TOILETING - STEP 1: Does the patient require assistance with toileting? Yes. TOILETING - STEP 2: Does the patient require the assistance of a helper? No. TOILETING - SCORE: 6-TINO BLADDER MANAGEMENT: BLADDER MANAGEMENT - STEP 1: Does the patient control the bladder completely and intentionally without equipment or devices or med ications, and is always continent? No. BLADDER MANAGEMENT - STEP 2: Does the patient require the assistance of a helper? No, patient requires and independently uses an a ssistive device, such as a urinal, bedpan, bedside commode, catheter, absorbent pad, or collecting de vice BLADDER MANAGEMENT - SCORE: 6-TINO BLADDER MANAGEMENT - FREQUENCY OF ACCIDENTS: BLADDER MANAGEMENT(FA) - STEP 1: How many accidents has the patient had during the current shift? 0 BOWEL MANAGEMENT: BOWEL MANAGEMENT - STEP 1: Does the patient control bowels completely and intentionally without equipment devices or medications AND is always continent? No. BOWEL MANAGEMENT - STEP 2: Does the patient require the assistance of a helper? No, patient requires and manages independently a n assistive device such as a bedpan, bedside commode, absorbent pad, incontinent device, or collectin g device BOWEL MANAGEMENT - SCORE: 6-TINO BOWEL MANAGEMENT - FREQUENCY OF ACCIDENTS: BOWEL MANAGEMENT(FA) - STEP 1: How many accidents has the patient had during the current shift? 0 TRANSFERS: BED, CHAIR, WHEELCHAIR: TRANSFERS: BED, CHAIR, WHEELCHAIR - STEP 1: Does the patient require assistance with bed, chair, or wheelchair transfers? Yes. TRANSFERS: BED, CHAIR, WHEELCHAIR - STEP 2: Does the patient require the assistance of a helper? No. Patient only requires an assistive device fo r bed, chair, wheelchair transfers such as a sliding board, grab bar, or brace, OR s/he takes more th an reasonable time, OR there is a safety concern when s/he performs the transfers TRANSFERS: BED, CHAIR, WHEELCHAIR - SCORE: 6-TINO TRANSFERS: TOILET: TRANSFERS: TOILET - STEP 1: Does the patient require assistance with toilet transfers? Yes. TRANSFERS: TOILET - STEP 2: Does the patient require the assistance of a helper? No. Patient only requires an assistive device sahni ch as a grab bar or special seat, OR s/he takes more than reasonable time to perform toilet transfers , OR there is a safety concern when s/he performs toilet transfers. TRANSFERS: TOILET - SCORE: 6-TINO TRANSFERS: SHOWER: Activity did not occur on this shift TRANSFERS: SHOWER - SCORE: 0-UNK TRANSFERS: TUB: Activity did not occur on this shift TRANSFERS: TUB - SCORE: 0-UNK LOCOMOTION: WALK: Activity did not occur on this shift LOCOMOTION: WALK - SCORE: 0-UNK LOCOMOTION: WHEELCHAIR: Activity did not occur on this shift LOCOMOTION: WHEELCHAIR - SCORE: 0-UNK COMPREHENSION: COMPREHENSION: TYPE: Both COMPREHENSION - STEP 1: Does the patient require help to understand complex and abstract ideas (such as current events, finan shea, discharge planning, medical issues, relationships, etc)? No. COMPREHENSION - STEP 2: Does the patient need extra time, require an assistive device (such as glasses, hearing aids, or an a ugmentative communication system), OR does s/he have mild difficulty expressing complex and abstract ideas (including mild dysarthria or mild word-finding problems)? Yes. COMPREHENSION - SCORE: 6-TINO EXPRESSION EXPRESSION: TYPE: Both EXPRESSION - STEP 1: Does the patient require help expressing complex and abstract ideas (such as current events, finances , discharge planning, medical issues, relationships, etc)? No. EXPRESSION - STEP 2: Does the patient need extra time, require an assistive device (such as augmentive communication syste m or a communication board), OR does s/he have mild difficulty expressing complex and abstract ideas (including mild dysarthria or mild word-find problems)? No. EXPRESSION - SCORE: 7-IND SOCIAL INTERACTION: SOCIAL INTERACTION - STEP 1: Does the patient require a helper to interact with others in social and therapeutic situations? No. SOCIAL INTERACTION - STEP 2: Does the patient need extra time in social situations, OR does s/he interact with staff, other patien ts, and family members ONLY in structured environments, OR does s/he require medication for social in teraction? Yes, patient requires medication for social interaction SOCIAL INTERACTION - SCORE: 6-TINO PROBLEM SOLVING: PROBLEM SOLVING - STEP 1: Does the patient need help to solve complex problems such as managing a checking account or confronti ng interpersonal problems? No. PROBLEM SOLVING - STEP 2: Does the patient require extra time to make decisions or solve problems, OR does s/he have slight dif ficulty reading, initiating, or self-correcting in unfamiliar situations? Yes, patient needs extra ti me. PROBLEM SOLVING - SCORE: 6-TINO MEMORY: MEMORY - STEP 1: Does the patient need help to remember frequently encountered people, daily routines, and executing r equests? No. MEMORY - STEP 2: Does the patient have slight difficulty recognizing frequently encountered people, daily routines, or executing requests without the need for repetition or using self-initiated or environmental cues to remember? Yes. MEMORY - SCORE: 6-TINO SIGNATURE PANEL: The following modified sections: Eating - Score, Grooming - Score, Bathing - Score, Dressing - Upper Body - Score, Dressing - Lower Body - Score, Toileting - Score, Bladder Management - Score, Bowel Man agement - Score, Transfers: Bed, Chair, Wheelchair - Score, Transfers: Toilet - Score, Transfers: Shonna wer - Score, Transfers: Tub - Score, Locomotion: Walk - Score, Locomotion: Wheelchair - Score, Compre hension - Score, Expression - Score, Social Interaction - Score, Problem Solving - Score, Memory - Sc ore were [electronically] signed by Irais Young C.N.ACt on TueFeb 10 2018 02:54:16 T-0500 ( [facility] Daylight Time)
[2018-02-10] MEDS: TRAMADOL HCL 50 MG TAB PO PRN ×2 (06:36→12:10)
[2018-02-10] MEDS: FISH OIL PO SCH (08:00)
[2018-02-10] MEDS: TRIAMCINOLONE 0.1% OINT 15 GM TOP SCH ×2 (08:00→21:32)
[2018-02-10] MEDS: ASCORBIC ACID 500 MG TABLET PO SCH ×2 (09:06→21:31)
[2018-02-10] MEDS: PANTOPRAZOLE 40MG TABLET PO SCH (09:06)
[2018-02-10] MEDS: CYANOCOBALAMIN 1,000 MCG TAB PO SCH (09:07)
[2018-02-10] MEDS: GABAPENTIN 300 MG CAP PO SCH ×3 (09:07→21:32)
[2018-02-10] MEDS: ASPIRIN EC 81 MG TAB PO SCH (09:07)
[2018-02-10] MEDS: SPIRONOLACTONE 25 MG TABLET PO SCH (09:07)
[2018-02-10] MEDS: VITAMIN D 5,000 UNIT CAP PO SCH (09:07)
[2018-02-10] MEDS: BISOPROLOL 5 MG TABLET PO SCH (09:08)
--- NOTE | 2018-02-10 09:25 | P.RH.PN ---
Estimated Length of Stay: 26 Expected Discharge Date: 02/15/18 Discharge Disposition Plan: Home Family Support: Yes Fpc Goal: Mobility, Transfers, Self Care Vital Signs: Last Vital Signs Temp 97.5 F 02/10/18 06:47 Pulse 78 02/10/18 09:08 Resp 20 02/10/18 06:47 BP 120/65 02/10/18 09:08 Pulse Ox 99 02/10/18 06:47 Laboratory: Laboratory Last Values WBC 8.6 K/uL (4.3-10.9) D 02/09/18 06:00 RBC 4.36 M/uL (3.86-4.86) 02/09/18 06:00 Hgb 12.1 g/dL (12.0-15.0) 02/09/18 06:00 Hct 36.9 % (36.0-45.0) 02/09/18 06:00 MCV 84.5 fL (80-100) 02/09/18 06:00 MCH 27.6 pg (27.0-35.0) 02/09/18 06:00 MCHC 32.7 g/dL (32.0-36.0) 02/09/18 06:00 RDW 14.0 % (12.1-15.2) 02/09/18 06:00 Plt Count 366 K/uL (152-406) D 02/09/18 06:00 MPV 9.2 fL (7.6-11.3) D 02/09/18 06:00 Neutrophils % 58.9 % (41.7-73.7) 02/09/18 06:00 Lymphocytes % 26.4 % (15.3-44.8) 02/09/18 06:00 Monocytes % 10.4 % (3.3-12.3) 02/09/18 06:00 Eosinophils % 3.0 % (0-4.4) 02/09/18 06:00 Basophils % 1.3 % (0-1.3) 02/09/18 06:00 Absolute Neutrophils 5.1 K/uL (1.8-8.0) 02/09/18 06:00 Absolute Lymphocytes 2.3 K/uL (0.7-4.9) 02/09/18 06:00 Absolute Monocytes 0.9 K/uL (0.1-1.3) 02/09/18 06:00 Absolute Eosinophils 0.3 K/uL (0-0.5) 02/09/18 06:00 Absolute Basophils 0.1 K/uL (0-0.5) 02/09/18 06:00 Sodium 137 mEq/L (135-145) 02/09/18 06:00 Potassium 4.5 mEq/L (3.6-5.0) 02/09/18 06:00 Chloride 99 mEq/L (101-111) L 02/09/18 06:00 Carbon Dioxide 32 mEq/L (21-31) H 02/09/18 06:00 BUN 20 mg/dL (6-20) 02/09/18 06:00 Creatinine 0.58 mg/dL (0.44-1.00) 02/09/18 06:00 Estimated GFR > 90 mL/min (=/>90) 02/09/18 06:00 Glucose 106 mg/dL (65-120) 02/09/18 06:00 Calcium 9.1 mg/dL (8.5-10.5) 02/09/18 06:00 Magnesium 1.8 mg/dL (1.8-2.5) 02/01/18 06:25 Albumin 3.3 g/dL (3.2-5.5) 02/09/18 06:00 Prealbumin 18.4 mg/dl (18-38) 02/09/18 06:00 Weight: 136 lb 9.6 oz Wound Present: No Closed Surgical Incision Present: No Negative Pressure Wound Therapy Present: No Physician Update: Her CBC with differential and basic metabolic are normal. She is at a supervision to modified independence with occupational therapy. She is a supervision to put on and take off brace. She is ambulation 250' with contact guard. Transfers are at a modified indpendence level. She will be discharged home on next Tuesday. She will need a walker and wheelchair for mobilization at home due to the right arm being immbilized. She will not be able to do household activities due to the right are restriction. Pain Issues: on [place] 5/325mg Q4h PRN Functional Improvement: pt demonstrates significant improvement with functional mobility and ambulation. pt continues to c/o R pubic pain during weightbearing. This seems to be her primary limiting factor. pt is Tri with transfers and requires CG during ambulation. Functional Improvement Occupational Therapy: pt can benifit with further therapy sessions to address pt's safety and don/doffing shoulder immobilzer and for LB dressing. cont to increase pt's UB strength and static standing for adl tasks. cont with the POC and the goals by the supervising OTR. Summary: Patient's care plan and longterm goals have been reviewed and revised as necessary. Please see the Rehabilitation Signature page for all necessary signatures.
--- NOTE | 2018-02-10 13:42 | P.PN ---
Subjective Date of Service: 02/10/18 Chief Complaint: CONSTIPATED FROM MEDS Subjective: No new changes, Improving (CHR PAIN, ARM AND PELVIS, BETTER, ABLE TO WALK NOW.) SHE IS A LOT BETTER NO PAIN UNLESS MOVES. WILL DO BMD LATER. SHE HAS QUIT NORCO NOW. IN A LOT OF PAIN. SHE HAS KNEE PAIN AFTER SHE WAS USING WHEELCHAIR BACKWARDS FOR EXERCISE. Review of Systems 10-point ROS is otherwise unremarkable Physical Examination - Vital Signs Temperature: 97.5 F Blood Pressure: 120/65 Pulse: 78 Respirations: 20 Pulse Ox (%): 99 - Physical Exam General: Alert HEENT: Atraumatic, PERRLA, EOMI Neck: Supple, JVD not distended Respiratory: Clear to auscultation bilaterally, Normal air movement Cardiovascular: Regular rate/rhythm, Normal S1 S2 Gastrointestinal: Normal bowel sounds, No tenderness Musculoskeletal: No tenderness, Other (RIGHT PELVIS AND ARM FRACTURE , STABLE.) Integumentary: No rashes Neurological: Normal speech, Normal tone, Normal affect Lymphatics: No axilla or inguinal lymphadenopathy - Studies Medications List Reviewed: Yes Assessment And Plan - Current Problems (Diagnosis) (1) Constipation Current Visit: Yes Status: Acute Plan: MOM AND MIRALAX STOP NORCO START TRAMADOL LOT BETTER. NO MORE ISSUE. (2) Hypokalemia Current Visit: Yes Status: Acute Plan: STOP KCL NOW. ALREADY ON SPIROLOLACTONE. (3) Pubic ramus fracture Onset Date: 02/02/18 Current Visit: Yes Status: Acute Plan: FU PT PAIN MX HEALING IN TWO MNTHS. OT PT PAIN MRELIEV CHANGE TO ULTRAM. RESUME PT. BETTER SLOWLY. Qualifiers: Encounter type: subsequent encounter Fracture type: closed Laterality: right Fracture healing: with routine healing Qualified Code(s): S32.591D - Other specified fracture of right pubis, subsequent encounter for fracture with routine healing (4) Humerus fracture Onset Date: 01/30/18 Current Visit: No Status: Acute Plan: MORE PAIN X RAY NO DIFF. RESUME TRAMADOL 2 PO QID PRN. RESUME PT WALKS WITH CHANTELL WALKER NOW. Qualifiers: Encounter type: subsequent encounter Fracture type: closed Fracture alignment: nondisplaced Laterality: right Fracture healing: with routine healing
[2018-02-11] MEDS: TRIAMCINOLONE 0.1% OINT 15 GM TOP SCH ×2 (08:00→21:54)
[2018-02-11] MEDS: FISH OIL PO SCH (08:00)
[2018-02-11] MEDS: ASCORBIC ACID 500 MG TABLET PO SCH ×2 (08:44→21:53)
[2018-02-11] MEDS: SPIRONOLACTONE 25 MG TABLET PO SCH (08:44)
[2018-02-11] MEDS: VITAMIN D 5,000 UNIT CAP PO SCH (08:44)
[2018-02-11] MEDS: GABAPENTIN 300 MG CAP PO SCH ×3 (08:44→21:52)
[2018-02-11] MEDS: CYANOCOBALAMIN 1,000 MCG TAB PO SCH (08:45)
[2018-02-11] MEDS: PANTOPRAZOLE 40MG TABLET PO SCH (08:46)
[2018-02-11] MEDS: TRAMADOL HCL 50 MG TAB PO PRN (08:46)
[2018-02-11] MEDS: BISOPROLOL 5 MG TABLET PO SCH (08:46)
[2018-02-11] MEDS: ASPIRIN EC 81 MG TAB PO SCH (08:47)
--- NOTE | 2018-02-11 11:10 | P.PN ---
Subjective Date of Service: 02/11/18 Chief Complaint: CONSTIPATED FROM MEDS SHE IS A LOT BETTER NO PAIN UNLESS MOVES. WILL DO BMD LATER. SHE HAS QUIT NORCO NOW. IN A LOT OF PAIN. SHE HAS KNEE PAIN AFTER SHE WAS USING WHEELCHAIR BACKWARDS FOR EXERCISE. STABLE, NO CHANGES. Review of Systems 10-point ROS is otherwise unremarkable Physical Examination - Vital Signs Temperature: 97 F Blood Pressure: 130/60 Pulse: 82 Respirations: 16 Pulse Ox (%): 99 - Physical Exam General: Alert, Mild distress HEENT: Atraumatic, PERRLA, EOMI Neck: Supple, JVD not distended Respiratory: Clear to auscultation bilaterally, Normal air movement Cardiovascular: Regular rate/rhythm, Normal S1 S2 Gastrointestinal: Normal bowel sounds, No tenderness Musculoskeletal: No tenderness Integumentary: No rashes Neurological: Normal speech, Normal tone, Normal affect Lymphatics: No axilla or inguinal lymphadenopathy - Studies Medications List Reviewed: Yes Assessment And Plan - Current Problems (Diagnosis) (1) Constipation Current Visit: Yes Status: Acute Plan: MOM AND MIRALAX STOP NORCO START TRAMADOL LOT BETTER. NO MORE ISSUE. (2) Hypokalemia Current Visit: Yes Status: Acute Plan: STOP KCL NOW. ALREADY ON SPIROLOLACTONE. RESOLVED AND FU ROUTINE. (3) Pubic ramus fracture Onset Date: 02/02/18 Current Visit: Yes Status: Acute Plan: FU PT PAIN MX HEALING IN TWO MNTHS. OT PT PAIN MRELIEV CHANGE TO ULTRAM. RESUME PT. BETTER SLOWLY. Qualifiers: Encounter type: subsequent encounter Fracture type: closed Laterality: right Fracture healing: with routine healing Qualified Code(s): S32.591D - Other specified fracture of right pubis, subsequent encounter for fracture with routine healing (4) Humerus fracture Onset Date: 01/30/18 Current Visit: No Status: Acute Plan: MORE PAIN X RAY NO DIFF. RESUME TRAMADOL 2 PO QID PRN. RESUME PT WALKS WITH CHANTELL WALKER NOW. Qualifiers: Encounter type: subsequent encounter Fracture type: closed Fracture alignment: nondisplaced Laterality: right Fracture healing: with routine healing
[2018-02-12 05:37] VITALS: BMI 23.3
[2018-02-12] MEDS: TRIAMCINOLONE 0.1% OINT 15 GM TOP SCH ×2 (08:00→20:00)
[2018-02-12] MEDS: FISH OIL PO SCH (08:00)
[2018-02-12] MEDS: VITAMIN D 5,000 UNIT CAP PO SCH (08:50)
[2018-02-12] MEDS: ASCORBIC ACID 500 MG TABLET PO SCH ×2 (08:50→20:00)
[2018-02-12] MEDS: GABAPENTIN 300 MG CAP PO SCH (08:50)
[2018-02-12] MEDS: ASPIRIN EC 81 MG TAB PO SCH (08:51)
[2018-02-12] MEDS: CYANOCOBALAMIN 1,000 MCG TAB PO SCH (08:51)
[2018-02-12] MEDS: SPIRONOLACTONE 25 MG TABLET PO SCH (08:51)
[2018-02-12] MEDS: PANTOPRAZOLE 40MG TABLET PO SCH (08:52)
[2018-02-12] MEDS: BISOPROLOL 5 MG TABLET PO SCH (08:52)
--- NOTE | 2018-02-12 10:27 | P.PN ---
Subjective Date of Service: 02/12/18 Chief Complaint: STABLE, DOING OT Subjective: No new changes SHE IS A LOT BETTER NO PAIN UNLESS MOVES. WILL DO BMD LATER. SHE HAS QUIT NORCO NOW. IN A LOT OF PAIN. SHE HAS KNEE PAIN AFTER SHE WAS USING WHEELCHAIR BACKWARDS FOR EXERCISE. STABLE, NO CHANGES. Review of Systems 10-point ROS is otherwise unremarkable Physical Examination - Vital Signs Temperature: 96.8 F Blood Pressure: 138/67 Pulse: 79 Respirations: 16 Pulse Ox (%): 98 - Physical Exam General: Alert, Mild distress HEENT: Atraumatic, PERRLA, EOMI Neck: Supple, JVD not distended Respiratory: Clear to auscultation bilaterally, Normal air movement Cardiovascular: Regular rate/rhythm, Normal S1 S2 Gastrointestinal: Normal bowel sounds, No tenderness Musculoskeletal: Tenderness, Other Integumentary: No rashes Neurological: Normal speech, Normal tone, Normal affect Lymphatics: No axilla or inguinal lymphadenopathy - Studies Medications List Reviewed: Yes Assessment And Plan - Current Problems (Diagnosis) (1) Constipation Current Visit: Yes Status: Acute Plan: MOM AND MIRALAX STOP NORCO START TRAMADOL LOT BETTER. NO MORE ISSUE. (2) Hypokalemia Current Visit: Yes Status: Acute Plan: STOP KCL NOW. ALREADY ON SPIROLOLACTONE. RESOLVED AND FU ROUTINE. (3) Pubic ramus fracture Onset Date: 02/02/18 Current Visit: Yes Status: Acute Plan: FU PT PAIN MX HEALING IN TWO MNTHS. OT PT PAIN MRELIEV CHANGE TO ULTRAM. RESUME PT. BETTER SLOWLY. NUTRITION HAS IMPROVED WALKS BETTER. Qualifiers: Encounter type: subsequent encounter Fracture type: closed Laterality: right Fracture healing: with routine healing Qualified Code(s): S32.591D - Other specified fracture of right pubis, subsequent encounter for fracture with routine healing (4) Humerus fracture Onset Date: 01/30/18 Current Visit: No Status: Acute Plan: MORE PAIN X RAY NO DIFF. RESUME TRAMADOL 2 PO QID PRN. RESUME PT WALKS WITH CHANTELL WALKER NOW. Qualifiers: Encounter type: subsequent encounter Fracture type: closed Fracture alignment: nondisplaced Laterality: right Fracture healing: with routine healing
[2018-02-12] MEDS: TRAMADOL HCL 50 MG TAB PO PRN (22:01)
[2018-02-13] MEDS: PANTOPRAZOLE 40MG TABLET PO SCH (07:30)
[2018-02-13] MEDS: SPIRONOLACTONE 25 MG TABLET PO SCH (08:00)
[2018-02-13] MEDS: FISH OIL PO SCH (08:00)
[2018-02-13] MEDS: TRIAMCINOLONE 0.1% OINT 15 GM TOP SCH ×2 (08:00→19:07)
[2018-02-13] MEDS: VITAMIN D 5,000 UNIT CAP PO SCH (08:20)
[2018-02-13] MEDS: ASPIRIN EC 81 MG TAB PO SCH (08:20)
[2018-02-13] MEDS: CYANOCOBALAMIN 1,000 MCG TAB PO SCH (08:20)
[2018-02-13] MEDS: ASCORBIC ACID 500 MG TABLET PO SCH ×2 (08:20→19:07)
[2018-02-13] MEDS: BISOPROLOL 5 MG TABLET PO SCH (08:20)
--- NOTE | 2018-02-13 09:07 | P.PN ---
Subjective Date of Service: 02/13/18 Chief Complaint: STABLE, DOING OT Subjective: No C/O voiced SHE IS A LOT BETTER NO PAIN UNLESS MOVES. WILL DO BMD LATER. SHE HAS QUIT [facility] NOW. IN A LOT OF PAIN. SHE HAS KNEE PAIN AFTER SHE WAS USING WHEELCHAIR BACKWARDS FOR EXERCISE. STABLE, NO CHANGES. Review of Systems 10-point ROS is otherwise unremarkable Physical Examination - Vital Signs Temperature: 97.6 F Blood Pressure: 123/58 Pulse: 76 Respirations: 18 Pulse Ox (%): 98 - Physical Exam General: Alert, In no apparent distress HEENT: Atraumatic, PERRLA, EOMI Neck: Supple, JVD not distended Respiratory: Clear to auscultation bilaterally, Normal air movement Cardiovascular: Regular rate/rhythm, Normal S1 S2 Gastrointestinal: Normal bowel sounds, No tenderness Musculoskeletal: Other (ARM IN BRACE AND PELVIC FRACTURE. WHEELCHAIR BOUND, ABLE TO WALK BETTER) Integumentary: No rashes Neurological: Normal speech, Normal tone, Normal affect Lymphatics: No axilla or inguinal lymphadenopathy - Studies Medications List Reviewed: Yes Assessment And Plan - Current Problems (Diagnosis) (1) Constipation Current Visit: Yes Status: Acute Plan: MOM AND MIRALAX STOP NORCO START TRAMADOL LOT BETTER. NO MORE ISSUE. (2) Hypokalemia Current Visit: Yes Status: Acute Plan: STOP KCL NOW. ALREADY ON SPIROLOLACTONE. RESOLVED AND FU ROUTINE. (3) Pubic ramus fracture Onset Date: 02/02/18 Current Visit: Yes Status: Acute Plan: FU PT PAIN MX HEALING IN TWO MNTHS. OT PT PAIN MRELIEV CHANGE TO ULTRAM. RESUME PT. BETTER SLOWLY. NUTRITION HAS IMPROVED WALKS BETTER. Qualifiers: Encounter type: subsequent encounter Fracture type: closed Laterality: right Fracture healing: with routine healing Qualified Code(s): S32.591D - Other specified fracture of right pubis, subsequent encounter for fracture with routine healing (4) Humerus fracture Onset Date: 01/30/18 Current Visit: No Status: Acute Plan: MORE PAIN X RAY NO DIFF. RESUME TRAMADOL 2 PO QID PRN. RESUME PT WALKS WITH CHANTELL WALKER NOW. Qualifiers: Encounter type: subsequent encounter Fracture type: closed Fracture alignment: nondisplaced Laterality: right Fracture healing: with routine healing
[2018-02-13] MEDS: TRAMADOL HCL 50 MG TAB PO PRN (12:33)
[2018-02-14] MEDS: FISH OIL PO SCH (08:00)
[2018-02-14] MEDS: ASCORBIC ACID 500 MG TABLET PO SCH ×2 (08:45→19:26)
[2018-02-14] MEDS: VITAMIN D 5,000 UNIT CAP PO SCH (08:45)
[2018-02-14] MEDS: BISOPROLOL 5 MG TABLET PO SCH (08:45)
[2018-02-14] MEDS: PANTOPRAZOLE 40MG TABLET PO SCH (08:45)
[2018-02-14] MEDS: ASPIRIN EC 81 MG TAB PO SCH (08:45)
[2018-02-14] MEDS: TRAMADOL HCL 50 MG TAB PO PRN (08:46)
[2018-02-14] MEDS: SPIRONOLACTONE 25 MG TABLET PO SCH (08:46)
[2018-02-14] MEDS: CYANOCOBALAMIN 1,000 MCG TAB PO SCH (08:46)
[2018-02-14] MEDS: TRIAMCINOLONE 0.1% OINT 15 GM TOP SCH ×2 (08:48→19:27)
--- NOTE | 2018-02-14 21:58 | P.PN ---
Subjective Date of Service: 02/14/18 Chief Complaint: STABLE, DOING OT SHE IS A LOT BETTER NO PAIN UNLESS MOVES. WILL DO BMD LATER. SHE HAS QUIT [facility] NOW. IN A LOT OF PAIN. SHE HAS KNEE PAIN AFTER SHE WAS USING WHEELCHAIR BACKWARDS FOR EXERCISE. STABLE, NO CHANGES. STABLE FOR HOME IN AM FAMILY SITUATION IS POOR SISTER IS ALCOHOLIC AND SHE FELL TRYING TO HELP HER. Physical Examination - Vital Signs Temperature: 98.0 F Blood Pressure: 131/61 Pulse: 94 Respirations: 20 Pulse Ox (%): 93 - Studies Medications List Reviewed: Yes Assessment And Plan - Current Problems (Diagnosis) (1) Constipation Current Visit: Yes Status: Acute Plan: MOM AND MIRALAX STOP NORCO START TRAMADOL LOT BETTER. NO MORE ISSUE. (2) Hypokalemia Current Visit: Yes Status: Acute Plan: STOP KCL NOW. ALREADY ON SPIROLOLACTONE. RESOLVED AND FU ROUTINE. (3) Pubic ramus fracture Onset Date: 02/02/18 Current Visit: Yes Status: Acute Plan: FU PT PAIN MX HEALING IN TWO MNTHS. OT PT PAIN MRELIEV CHANGE TO ULTRAM. RESUME PT. BETTER SLOWLY. NUTRITION HAS IMPROVED WALKS BETTER. Qualifiers: Encounter type: subsequent encounter Fracture type: closed Laterality: right Fracture healing: with routine healing Qualified Code(s): S32.591D - Other specified fracture of right pubis, subsequent encounter for fracture with routine healing (4) Humerus fracture Onset Date: 01/30/18 Current Visit: No Status: Acute Plan: MORE PAIN X RAY NO DIFF. RESUME TRAMADOL 2 PO QID PRN. RESUME PT WALKS WITH CHANTELL WALKER NOW. Qualifiers: Encounter type: subsequent encounter Fracture type: closed Fracture alignment: nondisplaced Laterality: right Fracture healing: with routine healing
[2018-02-15 06:48] VITALS: BP 153/72; TEMP 97.2
[2018-02-15] MEDS: FISH OIL PO SCH (08:00)
[2018-02-15] MEDS: ASCORBIC ACID 500 MG TABLET PO SCH (08:24)
[2018-02-15] MEDS: SPIRONOLACTONE 25 MG TABLET PO SCH (08:25)
[2018-02-15] MEDS: CYANOCOBALAMIN 1,000 MCG TAB PO SCH (08:25)
[2018-02-15] MEDS: VITAMIN D 5,000 UNIT CAP PO SCH (08:25)
[2018-02-15] MEDS: ASPIRIN EC 81 MG TAB PO SCH (08:26)
[2018-02-15] MEDS: PANTOPRAZOLE 40MG TABLET PO SCH (08:26)
[2018-02-15] MEDS: BISOPROLOL 5 MG TABLET PO SCH (08:26)
[2018-02-15] MEDS: TRIAMCINOLONE 0.1% OINT 15 GM TOP SCH (08:27)
--- NOTE | 2018-02-15 12:27 | FAST ---
SHIFT START DATE/TIME: 02/15/2018 07:00 (CDT) SHIFT END DATE/TIME: 02/15/2018 19:00 (CDT) NAME FRANCE BAUMANN DATE OF : 1945 DATE OF ADMISSION: 01/31/2018 15:46 (CDT) PHONE: AGE: 72 N# [id number] GENDER: Female ENCOUNTER PHYSICIAN: Dr. Luke Major M.D. ADMISSION DIAGNOSIS: - Orthopaedic Disorders 08 - Pelvic Fracture (08.3) pubic ramus fx, humerus fx, hip pain. EATING: EATING - STEP 1: Does the patient require assistance when eating? Yes. EATING - STEP 2: Does the patient require the assistance of a helper? No, patient only requires an assistive device, O R s/he takes more than reasonable time to eat, OR there is a safety concern, OR s/he requires modifie d food consistency EATING - SCORE: 6-TINO GROOMING: Comb/brush hair Oral care Wash, rinse, and dry face Wash, rinse, and dry hands GROOMING - STEP 1: Does the patient require assistance when grooming? Yes. GROOMING - STEP 2: Does the patient require the assistance of a helper? No. The patient only requires an assistive devic e, OR takes more than reasonable time to groom, OR there is a concern for safety as the patient groom s GROOMING - SCORE: 6-TINO BATHING: Activity did not occur on this shift BATHING - SCORE: 0-UNK DRESSING - UPPER BODY: Activity did not occur on this shift ARTICLES SCORE Total number of steps: 0 DRESSING - UPPER BODY - SCORE: 0-UNK DRESSING - LOWER BODY: Activity did not occur on this shift ARTICLES SCORE Total number of steps: 0 DRESSING - LOWER BODY - SCORE: 0-UNK TOILETING: TOILETING - STEP 1: Does the patient require assistance with toileting? No. TOILETING - SCORE: 7-IND BLADDER MANAGEMENT: BLADDER MANAGEMENT - STEP 1: Does the patient control the bladder completely and intentionally without equipment or devices or med ications, and is always continent? Yes. BLADDER MANAGEMENT - SCORE: 7-IND BLADDER MANAGEMENT - FREQUENCY OF ACCIDENTS: BLADDER MANAGEMENT(FA) - STEP 1: How many accidents has the patient had during the current shift? 0 BOWEL MANAGEMENT: BOWEL MANAGEMENT - STEP 1: Does the patient control bowels completely and intentionally without equipment devices or medications AND is always continent? No. BOWEL MANAGEMENT - STEP 2: Does the patient require the assistance of a helper? No, patient requires and manages independently a n assistive device such as a bedpan, bedside commode, absorbent pad, incontinent device, or collectin g device BOWEL MANAGEMENT - SCORE: 6-TINO BOWEL MANAGEMENT - FREQUENCY OF ACCIDENTS: BOWEL MANAGEMENT(FA) - STEP 1: How many accidents has the patient had during the current shift? 0 TRANSFERS: BED, CHAIR, WHEELCHAIR: TRANSFERS: BED, CHAIR, WHEELCHAIR - STEP 1: Does the patient require assistance with bed, chair, or wheelchair transfers? No. TRANSFERS: BED, CHAIR, WHEELCHAIR - SCORE: 7-IND TRANSFERS: TOILET: TRANSFERS: TOILET - STEP 1: Does the patient require assistance with toilet transfers? No. TRANSFERS: TOILET - SCORE: 7-IND TRANSFERS: SHOWER: Activity did not occur on this shift TRANSFERS: SHOWER - SCORE: 0-UNK TRANSFERS: TUB: Activity did not occur on this shift TRANSFERS: TUB - SCORE: 0-UNK LOCOMOTION: WALK: Activity did not occur on this shift LOCOMOTION: WALK - SCORE: 0-UNK LOCOMOTION: WHEELCHAIR: LOCOMOTION: WHEELCHAIR - STEP 1: Does the patient need help to go 150 feet in a wheelchair? No. LOCOMOTION: WHEELCHAIR - SCORE: 6-TINO COMPREHENSION: COMPREHENSION - STEP 1: Does the patient require help to understand complex and abstract ideas (such as current events, finan shea, discharge planning, medical issues, relationships, etc)? No. COMPREHENSION - STEP 2: Does the patient need extra time, require an assistive device (such as glasses, hearing aids, or an a ugmentative communication system), OR does s/he have mild difficulty expressing complex and abstract ideas (including mild dysarthria or mild word-finding problems)? Yes. COMPREHENSION - SCORE: 6-TINO EXPRESSION EXPRESSION: TYPE: Both EXPRESSION - STEP 1: Does the patient require help expressing complex and abstract ideas (such as current events, finances , discharge planning, medical issues, relationships, etc)? No. EXPRESSION - STEP 2: Does the patient need extra time, require an assistive device (such as augmentive communication syste m or a communication board), OR does s/he have mild difficulty expressing complex and abstract ideas (including mild dysarthria or mild word-find problems)? No. EXPRESSION - SCORE: 7-IND SOCIAL INTERACTION: SOCIAL INTERACTION - STEP 1: Does the patient require a helper to interact with others in social and therapeutic situations? No. SOCIAL INTERACTION - STEP 2: Does the patient need extra time in social situations, OR does s/he interact with staff, other patien ts, and family members ONLY in structured environments, OR does s/he require medication for social in teraction? No. SOCIAL INTERACTION - SCORE: 7-IND PROBLEM SOLVING: PROBLEM SOLVING - STEP 1: Does the patient need help to solve complex problems such as managing a checking account or confronti ng interpersonal problems? No. PROBLEM SOLVING - STEP 2: Does the patient require extra time to make decisions or solve problems, OR does s/he have slight dif ficulty reading, initiating, or self-correcting in unfamiliar situations? No. PROBLEM SOLVING - SCORE: 7-IND MEMORY: MEMORY - STEP 1: Does the patient need help to remember frequently encountered people, daily routines, and executing r equests? No. MEMORY - STEP 2: Does the patient have slight difficulty recognizing frequently encountered people, daily routines, or executing requests without the need for repetition or using self-initiated or environmental cues to remember? No. MEMORY - SCORE: 7-IND SIGNATURE PANEL: The following modified sections: Eating - Score, Grooming - Score, Bathing - Score, Dressing - Upper Body - Score, Dressing - Lower Body - Score, Toileting - Score, Bladder Management - Score, Bowel Man agement - Score, Transfers: Bed, Chair, Wheelchair - Score, Transfers: Toilet - Score, Transfers: Shonna wer - Score, Transfers: Tub - Score, Locomotion: Walk - Score, Locomotion: Wheelchair - Score, Compre hension - Score, Expression - Score, Social Interaction - Score, Problem Solving - Score, Memory - Sc ore were [electronically] signed by Ping Sharp C.N.A. on TueFeb 15 2018 11:27:32 T-0500 (Centra l Daylight Time)
--- NOTE | 2018-02-15 17:47 | FAST ---
ENCOUNTER DATE AND TIME: 02/15/2018 08:00 (CDT) NAME FRANCE BAUMANN DATE OF : 1945 DATE OF ADMISSION: 01/31/2018 15:46 (CDT) PHONE: AGE: 72 N# [id number] GENDER: Female ENCOUNTER PHYSICIAN: Dr. Luke Major M.D. ADMISSION DIAGNOSIS: - Orthopaedic Disorders 08 - Pelvic Fracture (08.3) pubic ramus fx, humerus fx, hip pain. EATING: Activity did not occur on this shift EATING - SCORE: 0-UNK GROOMING: Activity did not occur on this shift GROOMING - SCORE: 0-UNK BATHING: Activity did not occur on this shift BATHING - SCORE: 0-UNK DRESSING - UPPER BODY: Activity did not occur on this shift Patient is not dressing in public clothing ARTICLES SCORE Total number of steps: 0 DRESSING - UPPER BODY - SCORE: 0-UNK DRESSING - LOWER BODY: Activity did not occur on this shift Patient is not dressing in public clothing ARTICLES SCORE Total number of steps: 0 DRESSING - LOWER BODY - SCORE: 0-UNK TOILETING: Activity did not occur on this shift TOILETING - SCORE: 0-UNK BLADDER MANAGEMENT: Activity did not occur on this shift BLADDER MANAGEMENT - SCORE: 7-IND BOWEL MANAGEMENT: Activity did not occur on this shift BOWEL MANAGEMENT - SCORE: 7-IND TRANSFERS: BED, CHAIR, WHEELCHAIR: TRANSFERS: BED, CHAIR, WHEELCHAIR - STEP 1: Does the patient require assistance with bed, chair, or wheelchair transfers? Yes. TRANSFERS: BED, CHAIR, WHEELCHAIR - STEP 2: Does the patient require the assistance of a helper? No. Patient only requires an assistive device fo r bed, chair, wheelchair transfers such as a sliding board, grab bar, or brace, OR s/he takes more th an reasonable time, OR there is a safety concern when s/he performs the transfers TRANSFERS: BED, CHAIR, WHEELCHAIR - SCORE: 6-TINO TRANSFERS: TOILET: Activity did not occur on this shift TRANSFERS: TOILET - SCORE: 0-UNK TRANSFERS: SHOWER: Activity did not occur on this shift TRANSFERS: SHOWER - SCORE: 0-UNK TRANSFERS: TUB: Activity did not occur on this shift TRANSFERS: TUB - SCORE: 0-UNK LOCOMOTION: WALK: LOCOMOTION: WALK - STEP 1: Does the patient need help to walk 150 feet? Yes. LOCOMOTION: WALK - STEP 2: How much assistance does the patient require to walk a minimum of 150 feet? Only supervision, cuing, or coaxing LOCOMOTION: WALK - SCORE: 5-SUP LOCOMOTION: WHEELCHAIR: LOCOMOTION: WHEELCHAIR - STEP 1: Does the patient need help to go 150 feet in a wheelchair? Yes. LOCOMOTION: WHEELCHAIR - STEP 2: How much assistance does the patient need from the helper? Only supervision, cuing, or coaxing LOCOMOTION: WHEELCHAIR - SCORE: 5-SUP LOCOMOTION: STAIRS: LOCOMOTION: STAIRS - STEP 1: Does the patient need help to go up and down 12 to 14 stairs? Yes. LOCOMOTION: STAIRS - STEP 2: How much assistance does the patient need from the helper to go a minimum of 12 to 14 stairs? Only sahni pervision, cuing, or coaxing LOCOMOTION: STAIRS - SCORE: 5-SUP COMPREHENSION: COMPREHENSION - SCORE: 0-UNK EXPRESSION EXPRESSION - SCORE: 0-UNK SOCIAL INTERACTION: SOCIAL INTERACTION - SCORE: 0-UNK PROBLEM SOLVING: PROBLEM SOLVING - SCORE: 0-UNK MEMORY: MEMORY - SCORE: 0-UNK SIGNATURE PANEL: The following modified sections: Transfers: Bed, Chair, Wheelchair - Score, Transfers: Toilet - Score , Locomotion: Walk - Score, Locomotion: Wheelchair - Score, Locomotion: Stairs - Score were [victor hugo heaton] signed by Alla Messer PTA on TueFeb 15 2018 16:47:25 GMT-0500 (Central Daylight Time)
--- NOTE | 2018-02-15 18:32 | R.PN ---
ENCOUNTER DATE AND TIME: 02/15/2018 17:30 (CDT) NAME FRANCE BAUMANN DATE OF : 1945 DATE OF ADMISSION: 01/31/2018 15:46 (CDT) pubic ramus fx, humerus fx, hip painCHIEF COMPLAINT: Right arm and hip fracture SUBJECTIVE: Pt denied any Shortness of Breath. Pt denied any depression. Bed mobility done with modified independence. Propelled wheelchair 500' with modified independence. A mbulated 750' with left hemiwalker with modified independence. Up and down 20 steps with standby ass istance. VITAL SIGNS Temperature: 97.4 F SBP/DBP: 153/72 Pulse: 74 Resp: 16 MEDICATION ALLERGIES: amoxicillin CODEINE ibuprofen etodolac annaprox ENVIRONMENTAL ALLERGIES: - Substance Allergies None Known - Other Allergies None Known NURSING: - Shower allowing shower - Skin care per protocol ACTIVITIES OOB only with supervision THERAPIES: - Occupational Therapy Evaluate and Treat. - Physical Therapy Evaluate and Treat. PHYSICAL EXAM - Gen Alert and awake Lying in bed No apparent distress Oriented to: person, time, and place - Skin No skin breakdown. Normacephalic - Eyes No abnormalities - ENMT No abnormalities - Neck No abnormalities - CVS RRR - Chest Clear - Abd Soft - GI Non distended Deferred - No abnormalities - Ext No significant edema - MSK 4/5 weakness in both lower extremities. - Neuro 4/5 strength bilaterally lower extremities. - Psych No abnormalities ASSESSMENT: Pt. is a 72 yo Right-handed white female.On 01/29/2018 she was admitted to [facility] with diagnosis pubic ramus fx, humerus fx, hip pain.Her impairment category is Orthopaedic Dis orders 08 - Pelvic Fracture (08.3).Pre-morbidly, Pt. was independent/mod-I in Sphincter Control, Tra nsfers Control, Communication, Social Cognition, Self-Care, and Locomotion; and she had good Sphincte r Control.Currently, she has deficits of Endurance, Safety Awareness, Transfers Control, Balance, Loc omotion, and Self-Care.Pt. is now referred to [facility] for acute in-patient rehabilitation in order to maximize patient's functional independence in activities of daily living, strength, ROM, and mobility.- Rehab Goal Patient has realistic goal of being discharged at assistance level 6-Candy to reside at Home with Fam brian/Relatives. MDM/PLAN: - Diet Type Continue Regular - Physical Therapy Decreased range of motion - to improve, our physical therapists will perform initial evaluation of p t's status upon admission and devise an individualized program for increasing patient's Range of Willis on. Gait dysfunction - to improve, our physical therapists will perform initial evaluation of pt's statu s upon admission and devise an individualized program for Gait Training, and Wheel Chair mobility Inability to transfer - to improve, our physical therapists will perform initial evaluation of pt's status upon admission and devise an individualized program for Bed mobility Need for home safety evaluation - to improve, our physical therapists will perform initial evaluatio n of pt's status upon admission and devise an individualized program for Home Evaluation Need in caregiver upon discharge - to improve, our physical therapists will perform initial evaluati on of pt's status upon admission and devise an individualized program for Caregiver Training New precaution - to improve, our physical therapists will perform initial evaluation of pt's status upon admission and devise an individualized program for Patient precaution education Edema - to improve, our physical therapists will perform initial evaluation of pt's status upon admi ssion and devise an individualized program for Elevation Training, and Lymphedema Therapy Poor balance - to improve, our physical therapists will perform initial evaluation of pt's status up on admission and devise an individualized program for Balance Training Poor endurance - to improve, our physical therapists will perform initial evaluation of pt's status upon admission and devise an individualized program for Endurance Training Weakness - to improve, our physical therapists will perform initial evaluation of pt's status upon a dmission and devise an individualized program for Aquatic Therapy, Neuromuscular Reeducation, and Str engthening Achieving independence - to improve, our physical therapists will perform initial evaluation of pt's status upon admission and devise an individualized program for Community Reintegration Activities - Diet - Liquid Texture Continue Regular - Tube Feed Continue N/A - Skin care per protocol - Diet - Solid Texture Continue Regular - Shower allowing shower - Occupational Therapy ADL deficits - to improve, our occupation therapists will perform initial evaluation of pt's status upon admission and devise an individualized program for Bathing, Bed mobility, Community Reintegratio n, Cooking, Dressing, Eating, Fine Motor Skills, Grooming, Homemaking, Kitchen Mobility, Laundry, Pat ient Education, Safety Awareness, Splinting - Positioning, Transfers(Toilet, Tub, Shower), and Wheel Chair Management Need for care transport nurse - to improve, our occupation therapists will perform initial evaluation of pt's status upon admission and devise an individualized program for Caregiver Training Weakness - to improve, our occupation therapists will perform initial evaluation of pt's status upon admission and devise an individualized program for Aquatic Therapy, Balance, Endurance, UE ROM, and UE strengthening FUNCTIONAL STATUS: UPDATED AT WEEKLY TEAM CONFERENCE - Bladder Same accident frequency: 7-Ind - No accidents in the past 7 days - Bowel Same accident frequency: 7-Ind - No accidents in the past 7 days - Walking Same score based on distance walked: 1(<=50ft) FUNCTIONAL STATUS: - Self-Care A. Eating Ind B. Grooming Ind C. Bathing Ind D. Dressing - Upper Ind E. Dressing - Lower maxA F. Toileting maxA - Sphincter Control G: Bladder control Ind H: Bowel control Ind - Transfers Control I. Bed/Chair/Wheelchair maxA J. Toilet maxA K. Tub/Shower maxA - Locomotion L. Walk/Wheelchair (B) Dep M. Stairs ADNO - Communication N. Comprehension (B) Ind O. Expression (B) Ind - Social Cognition P. Social Interaction Ind Q. Problem Solving Ind R. Memory Ind - Endurance Poor - Balance Poor - Safety Awareness Poor CURRENT FUNC. DEFICITS: Endurance, Safety Awareness, Transfers Control, Balance, Locomotion, and Self-Care SIGNATURE PANEL: (CDT)
== END 2018-02-15 11:45 | disposition home health service (06) | DRG 561 ==
LOC: 5TH 15:46
PROVIDERS: ADMIT Psychiatry & Neurology Neurology with Special Qualifications in Child Neurology; ATTEND Psychiatry & Neurology Neurology with Special Qualifications in Child Neurology
DX: S32.599D Other specified fracture of unspecified pubis, subsequent encounter for fracture with routine healing (principal); S42.309D Unspecified fracture of shaft of humerus, unspecified arm, subsequent encounter for fracture with routine healing; I10 Essential (primary) hypertension; M85.80 Other specified disorders of bone density and structure, unspecified site; K59.00 Constipation, unspecified; E87.6 Hypokalemia
CPT/HCPCS: 36415; 80048; 82040; 83735; 84132; 84134; 85025; 97542

== ENCOUNTER 2018-06-25 21:56 | Inpatient (IN) | payer OTHER ==
--- OUTSIDE RECORDS SUMMARY | 2018-06-25 21:58 | XMS REPORT | Clinical Summary ---
:1945 Author Organization [facility] Address [address] [place] [address] Care Team Providers Name Role Phone Rodolfo Mathis MD Primary Care Provider Allergies Active Allergy Reactions Severity Noted Date Comments Naproxen Sodium 10/07/2016 Chest pain Codeine 10/07/2016 Chest pain-feels like having a heart attack Ibuprofen Hives, Itching 10/07/2016 Numbness in head Etodolac 10/07/2016 Chest pain Current Medications Prescription Sig. Disp. Refills Start Date End Date Status bisoprolol (ZEBETA) 5 MG Take 5 mg by mouth 1 09/08/2016 Active tablet daily. gabapentin (NEURONTIN) 600 TAKE 2 TABLET BY 1 09/20/2016 Active mg tablet MOUTH 2 TIMES A DAY FOR NERVE PAIN pantoprazole (PROTONIX) 40 Take 40 mg by 0 09/04/2016 Active MG EC tablet mouth daily. spironolactone (ALDACTONE) Take 25 mg by 11 10/01/2016 Active 25 MG tablet mouth once daily. aspirin (ECOTRIN) 81 MG Take 81 mg by Active enteric coated tablet mouth daily. cholecalciferol, vitamin Take by mouth. Active D3, (VITAMIN D3) 5,000 unit tablet CYANOCOBALAMIN, VITAMIN Take by mouth. Active B-12, (B-12 DOTS ORAL) multivitamin with minerals Take 1 tablet by Active tablet mouth daily. OMEGA-3 FATTY ACIDS/FISH Take by mouth. Active OIL (FISH OIL EXTRA STRENGTH ORAL) POTASSIUM CHLORIDE ORAL Take by mouth. OTC Active - 99mg takes one a day on her own. Active Problems Problem Noted Date Carpal tunnel syndrome of right wrist 2017 Carpal tunnel syndrome on right 10/07/2016 Cervical spondylosis with myelopathy and radiculopathy 10/07/2016 Arthropathy of right shoulder 10/07/2016 Family History Medical History Relation Name Comments [...] Not on file Last Filed Vital Signs Not on file Plan of Treatment Health Maintenance Due Date Last Done Comments BREAST CANCER SCREENING 1995 COLON CANCER SCREENING 1995 SHINGRIX VACCINE (#1) 1995 ZOSTER VACCINE 2005 PNEUMOCOCCAL POLYSACCHARIDE VACCINE AGE 65 AND OVER 2010 PNEUMOCOCCAL-13 2010 INFLUENZA VACCINE 04/19/2018 Results Not on fileafter 06/24/2017 Insurance Payer Benefit Plan / Group Subscriber ID Type Phone Address AETNA AETNA PPO OPEN CHOICE xxxxxxxxx PPO MEDICARE MEDICARE PART A AND B xxxxxxxxxx Medicare [place], [place] [phone] [id number]
--- OUTSIDE RECORDS SUMMARY | 2018-06-25 21:58 | XMS REPORT ---
:1945 Author Organization [employer] Care Team Providers Name Role Phone Zach Galvez Provider Role Unavailable Allergies, Adverse Reactions, Alerts Substance Reaction Event Type Ibuprofen HIVES Drug Allergy Amoxicillin Info Not Available Drug Allergy Problems Problem Type Condition Code Onset Dates Condition Status Assessment Closed fracture of ramus of right S32.591D Active pubis with routine healing, subsequent encounter Problem Pain in right shoulder M25.511 Active Problem Other closed displaced fracture of S42.291D Active proximal end of right humerus with routine healing, subsequent encounter Problem Trigger finger of both hands M65.30 Active Assessment Other closed displaced fracture of S42.291D Active proximal end of right humerus with routine healing, subsequent encounter Assessment Right wrist pain M25.531 Active Assessment Pain in right shoulder M25.511 Active Medications Medication Code Code Instructions Start End Status Dosage System Date Date Pantoprazole [facility] 15861340820 40 MG Oral Active TAKE 1 Sodium TABLET BY MOUTH EVERY DAY 1 HOUR BEFORE FOOD Aspirin ND 05603683827 81 MG Orally April 06, Active 1 tablet Once a day 2017 Spironolactone [facility] 57808068992 25 MG Oral Active TAKE 1 TABLET BY MOUTH EVERY DAY Gabapentin [facility] 86581408374 300 MG Oral Active TAKE 1 CAPSULE BY MOUTH THREE TIMES A DAY Bisoprolol [facility] 26224169244 5 MG Oral Active TAKE 1 Fumarate TABLET BY MOUTH EVERY DAY Paroxetine HCl [facility] 62993759585 20 MG Oral Active TAKE 1 TABLET BY MOUTH EVERYDAY AT BEDTIME Results No Known Results Summary Purpose [employer]ClinicalWorks Submission
--- OUTSIDE RECORDS SUMMARY | 2018-06-25 21:58 | XMS REPORT ---
:1945 Author Organization [employer] Care Team Providers Name Role Phone Zach Galvez Provider Role Unavailable Allergies, Adverse Reactions, Alerts Substance Reaction Event Type Ibuprofen Info Not Available Drug Allergy Amoxicillin Info Not Available Drug [...] finger of both hands M65.30 Active Assessment Pain in right shoulder M25.511 Active Assessment Trigger finger of both hands M65.30 Active Assessment Other closed displaced fracture of S42.291D Active proximal end of right humerus with routine healing, subsequent encounter Medications Medication Code Code Instructions Start End Status Dosage System Date Date Gabapentin [facility] [id number] 300 MG Oral Active TAKE 1 CAPSULE BY MOUTH THREE TIMES A DAY Bisoprolol ND 61190618948 5 MG Oral Active TAKE 1 Fumarate TABLET BY MOUTH EVERY DAY Clindamycin HCl [facility] 95608658500 300 MG Oral Active TAKE ONE CAPSULE BY MOUTH 3 TIMES A DAY UNTIL ALL TAKEN Ciprofloxacin HCl [facility] 75750729824 0.3 % Active INSTILL 1 Ophthalmic DROP INTO LEFT EYE 4 TIMES A DAY FOR 1 WEEK Aspirin ND 26499403994 81 MG Orally April 06, Active 1 tablet Once a day 2017 Pantoprazole ND 29225646907 40 MG Oral Active TAKE 1 Sodium TABLET BY MOUTH EVERY DAY 1 HOUR BEFORE FOOD Tramadol HCl [facility] 37892836938 50 MG Oral Active (Schedule IV Drug) TAKE 1 TABLET BY MOUTH EVERY 6 HOURS NEEDED FOR PAIN Triamcinolone ND 43441672959 0.1 % External Active APPLY TO Acetonide AFFECTED AREA TWICE A DAY Duloxetine HCl [facility] 52808735399 60 MG Oral Active TAKE ONE CAPSULE BY MOUTH EVERY DAY Paroxetine HCl [facility] 63363578233 20 MG Oral Active TAKE 1 TABLET BY MOUTH EVERYDAY AT BEDTIME Spironolactone NDC 42743646114 25 MG Oral Active TAKE 1 TABLET BY MOUTH EVERY DAY Results No Known Results Summary Purpose eClinicalWorks Submission
[2018-06-25] MEDS ORDERED: MORPHINE 4 MG/ML SYR ONE (22:22)
[2018-06-25 23:17] LABS: Absolute Lymphocytes (CBC) 1.4 K/uL (0.7-4.9); Absolute Monocytes 0.7 K/uL (0.1-1.3); Absolute Neutrophil 6.1 K/uL (1.8-8.0); Basophils % 0.6 % (0-1.3); Eosinophils % 1.4 % (0-4.4); Hematocrit 37.8 % (36.0-45.0); Lymphocytes % 16.3 % (15.3-44.8); MCH 27.5 pg (27.0-35.0); MPV 9.7 fL (7.6-11.3); Monocytes % 8.1 % (3.3-12.3); RBC Red Blood Cell Count 4.55 M/uL (3.86-4.86)
[2018-06-25] MEDS ORDERED: ACETAMINOPHEN 500 MG TAB PO PRN (23:19)
[2018-06-25] MEDS ORDERED: ONDANSETRON 4 MG/2 ML VIAL IV PRN (23:19)
[2018-06-25 23:26] LABS: Protime INR 1.14
[2018-06-25 23:40] LABS: ALT/SGPT 37 U/L (12-78); AST/SGOT 83 U/L (15-37); Albumin 3.2 g/dL (3.4-5.0); Alkaline Phosphatase 123 U/L (45-117); BUN Blood Urea Nitrogen 16 mg/dL (7-18); Bicarbonate 29 mmol/L (21-32); Bilirubin Direct 0.2 mg/dL (0-0.2); Bilirubin Total 0.4 mg/dL (0.2-1.0); Glucose Level 102 mg/dL (74-106); Magnesium 1.7 mg/dL (1.8-2.4); Protein, Total 6.4 g/dL (6.4-8.2); Sodium Level 146 mmol/L (136-145); Troponin (Emerg Dept Use Only) < 0.02 ng/mL (0.0-0.045)
[2018-06-25] MEDS ORDERED: NA CHLORIDE 0.9% 1,000 ML ONE (23:40)
[2018-06-25 23:42] LABS: Potassium 2.9 mmol/L (3.5-5.1)
[2018-06-26] MEDS ORDERED: POTASSIUM 25 MEQ EFFERV TAB ONE (00:04)
[2018-06-26] MEDS ORDERED: KCL 20 MEQ/100 mL IVPB 20 MEQ/100 ML BAG IV ONE (00:04)
--- NOTE | 2018-06-26 00:23 | EDPHYS ---
Physician Documentation [facility] Name: Sharla Tesfaye Age: 73 yrs Sex: Female : 1945 Arrival Date: 06/25/2018 Time: 22:09 Bed 17 Private MD: ED Physician Nilesh Clemente HPI: 06/25 22:15 This 73 yrs old Female presents to ER via EMS with complaints of Fall Injury. cp 22:15 Details of fall: The patient fell from an upright position, while walking, and struck a cp grass-covered surface. 22:15 Onset: The symptoms/episode began/occurred just prior to arrival. Associated injuries: cp The patient sustained left hip, decreased range of motion, deformity, obvious fracture. Historical: - Allergies: 22:43 Amoxicillin; bb 22:43 Codeine; bb 22:43 Etodolac; bb 22:43 Ibuprofen; bb 22:43 Demerol; bb 22:43 annaprox; bb - Home Meds: 22:43 aspirin 81 mg Oral chew 1 tab once daily [Active]; bisoprolol fumarate 5 mg Oral tab 1 bb tab once daily [Active]; calcium citrate 600 mg Oral gran [Active]; Fish Oil 1,000 mg Oral cap [Active]; gabapentin 300 mg oral cap 1 cap 3 times per day [Active]; spironolactone 25 mg Oral tab 1 tab once daily [Active]; pantoprazole 40 mg Oral TbEC 1 tab once daily [Active]; Vitamin C 1,000 mg Oral tab twice a day [Active]; D3 [Active]; paroxetine HCl 20 mg Oral tab 1 tab once daily [Active]; - PMHx: 22:43 Hypertension; bb - PSHx: 22:43 Gastric Bypass; Knee surgery; Cholecystectomy; Appendectomy; Hysterectomy; bb Tonsillectomy; - Immunization history: Last tetanus immunization: - up to date. - Social history:: Smoking status: Patient/guardian denies using tobacco, Patient/guardian denies using alcohol, street drugs. - Ebola Screening: : No symptoms or risks identified at this time. ROS: 22:20 Constitutional: Negative for body aches, chills, fever, poor PO intake. cp 22:20 Eyes: Negative for injury, pain, redness, and discharge. cp 22:20 ENT: Negative for drainage from ear(s), ear pain, sore throat, difficulty swallowing, difficulty handling secretions. 22:20 Neck: Negative for pain with movement, pain at rest, stiffness, bony tenderness. 22:20 Cardiovascular: Negative for chest pain, edema, palpitations. 22:20 Respiratory: Negative for cough, shortness of breath, wheezing. 22:20 Abdomen/GI: Negative for abdominal pain, nausea, vomiting, and diarrhea. 22:20 Back: Negative for pain at rest, pain with movement. 22:20 MS/extremity: Positive for injury or acute deformity, decreased range of motion, pain, tenderness, of the left hip. 22:20 Skin: Negative for cellulitis, rash. 22:20 Neuro: Negative for altered mental status, headache, loss of consciousness, syncope, near syncope, weakness. 22:20 All other systems are negative. Exam: 23:28 ECG was reviewed by the Attending Physician. cp 23:30 Constitutional: The patient appears in no acute distress, alert, awake, cp non-diaphoretic, non-toxic, well developed, well nourished, uncomfortable. 23:30 Head/Face: Normocephalic, atraumatic. cp 23:30 Eyes: Pupils equal round and reactive to light, extra-ocular motions intact. Lids and lashes normal. Conjunctiva and sclera are non-icteric and not injected. Cornea within normal limits. Periorbital areas with no swelling, redness, or edema. ENT: Nares patent. No nasal discharge, no septal abnormalities noted. Tympanic membranes are normal and external auditory canals are clear. Oropharynx with no redness, swelling, or masses, exudates, or evidence of obstruction, uvula midline. Mucous membranes moist. 23:30 Neck: C-spine: vertebral tenderness, is not appreciated, crepitus, is not appreciated, ROM/movement: is normal, is supple, without pain, no range of motions limitations, no nuchal rigidity. 23:30 Chest/axilla: Inspection: normal, Palpation: is normal, no crepitus, no tenderness. 23:30 Cardiovascular: Rate: normal, Rhythm: regular, Pulses: Pulses are 2+ in right radial artery, right dorsalis pedis artery, left radial artery and left dorsalis pedis artery. Edema: is not appreciated, JVD: is not appreciated. 23:30 Respiratory: the patient does not display signs of respiratory distress, Respirations: normal, no use of accessory muscles, no retractions, no splinting, no tachypnea, labored breathing, is not present, Breath sounds: are clear throughout, no decreased breath sounds, no stridor, no wheezing. 23:30 Abdomen/GI: Inspection: abdomen appears normal, Bowel sounds: active, all quadrants, Palpation: abdomen is soft and non-tender, in all quadrants, rebound tenderness, is not appreciated, involuntary guarding, is not appreciated. 23:30 Back: vertebral tenderness, is not appreciated. 23:30 Musculoskeletal/extremity: Extremities: grossly normal except: noted in the left hip: decreased ROM, deformity, pain, swelling, tenderness. 23:30 Skin: cellulitis, is not appreciated, no rash present. 23:30 Neuro: Orientation: to person, place \T\ time. Mentation: is normal, Cerebellar function: is grossly normal, Motor: moves all fours, strength is normal. Vital Signs: 22:10 BP 153 / 81; Pulse 81; Resp 16 S; Temp 99(O); Pulse Ox 98% on R/A; Weight 61.23 kg (R); bb Height 5 ft. 3 in. (160.02 cm) (R); Pain 5/10; 06/26 00:27 BP 137 / 62; Pulse 78; Resp 18; Pulse Ox 96% on R/A; ak1 06/25 22:10 Body Mass Index 23.91 (61.23 kg, 160.02 cm) bb Whitney Coma Score: 06/25 22:10 Eye Response: spontaneous(4). Verbal Response: oriented(5). Motor Response: obeys bb commands(6). Total: 15. Trauma Score (Adult): 22:10 Eye Response: spontaneous(1); Verbal Response: oriented(1); Motor Response: obeys bb commands(2); Systolic BP: > 89 mm Hg(4); Respiratory Rate: 10 to 29 per min(4); Whitney Score: 15; Trauma Score: 12 MDM: 22:12 Patient medically screened. cp 23:10 Data reviewed: vital signs, nurses notes, radiologic studies, plain films, and as a cp result, I will admit patient. 23:12 Physician consultation: Zach Galvez MD was called at 23:13, was contacted at 23:13, cp regarding consult, patient's condition. 23:22 Physician consultation: Herbert Pelletier MD was called at 23:23, left message on voicemail. 06/26 00:01 Physician consultation: Herbert Pelletier MD was called at 00:01, regarding admission, to cp the telemetry unit. left message on voicemail. 00:22 Physician consultation: Deo Echeverria MD was called at 00:22, was contacted at 00:22, regarding admission, to the telemetry unit. patient's condition. 06/25 22:12 Order name: Basic Metabolic Panel cp 06/25 22:12 Order name: CBC with Diff cp 06/25 22:12 Order name: LFT's cp 06/25 22:12 Order name: Magnesium cp 06/25 22:12 Order name: PT-INR cp 06/25 22:12 Order name: Troponin (emerg Dept Use Only) cp 06/25 22:12 Order name: Pelvis XRAY cp 06/25 22:12 Order name: XRAY Femur LEFT cp 06/25 22:12 Order name: XRAY Chest (1 view) cp 06/25 23:21 Order name: Basic Metabolic Panel EDMS 06/25 23:21 Order name: Basic Metabolic Panel EDMS 06/25 23:21 Order name: CBC with Automated Diff EDMS 06/25 23:21 Order name: CBC with Automated Diff EDMS 06/25 22:12 Order name: EKG; Complete Time: 22:13 cp 06/25 22:12 Order name: Cardiac monitoring; Complete Time: 23:29 cp 06/25 22:12 Order name: EKG - Nurse/Tech; Complete Time: 23:29 cp 06/25 22:12 Order name: IV Saline Lock; Complete Time: 23:16 cp 06/25 22:12 Order name: Labs collected and sent; Complete Time: 23:17 cp 06/25 22:12 Order name: O2 Per Protocol; Complete Time: 23:17 cp 06/25 22:12 Order name: O2 Sat Monitoring; Complete Time: 23:17 cp 06/25 22:12 Order name: Trejo; Complete Time: 23:55 cp 06/25 23:19 Order name: CONS Physician Consult EDMS EC/07 23:28 Rate is 75 beats/min. Rhythm is regular. AK interval is normal. QRS interval is normal. cp QT interval is normal. Interpreted by me. Reviewed by me. Administered Medications: 22:18 Drug: morphine 4 mg Route: IVP; Site: left antecubital; bb 23:29 Follow up: Response: No adverse reaction ak1 23:52 Drug: NS 0.9% 1000 ml Route: IV; Rate: 75 ml/hr; Site: left antecubital; ak1 06/26 00:26 Follow up: IV Status: Infusion continued upon admission ak1 00:10 Drug: Potassium Chloride 20 mEq Route: IV; Rate: calculated rate; Site: left ak1 antecubital; 00:51 Follow up: IV Status: Infusion continued upon admission ak1 00:10 Drug: Potassium Effervescent Tablet 50 mEq Route: PO; ak1 00:26 Follow up: Response: No adverse reaction ak1 00:40 Drug: morphine 4 mg Route: IVP; Site: left antecubital; ak1 00:40 Follow up: Response: No adverse reaction ak1 00:52 Not Given (Patient Refused): Zofran 4 mg IVP once; over 2 minutes ak1 Disposition: 02:50 Co-signature as Attending Physician, Nilesh Clemente MD I agree with the assessment and tw4 plan of care. Attestation: The patient's history, exam findings, diagnostics, and a summary of any interventions or procedures was reviewed in detail with Nigel SZYMANSKI. Disposition: 06/26/18 00:22 Hospitalization ordered by Deo Echeverria for Inpatient Admission. Preliminary diagnosis is Displaced fracture of base of neck of left femur. - Bed requested for Telemetry/MedSurg (Inpatient). - Status is Inpatient Admission. ak1 - Condition is Stable. - Problem is new. - Symptoms have improved. UTI on Admission? No Signatures: Dispatcher [employer] EDMS Linda Harper RN RN bb Christian, Chelsea cc Nereyda Hurt RN RN ak1 Nigel Herbert PA PA cp Wadley, Terrence, MD MD tw4 Corrections: (The following items were deleted from the chart) 00:30 00:22 Hospitalization Ordered by Deo Echeverria MD for Inpatient Admission. Preliminary cc diagnosis is Displaced fracture of base of neck of left femur. Bed requested for Telemetry/MedSurg (Inpatient). Status is Inpatient Admission. Condition is Stable. Problem is new. Symptoms have improved. UTI on Admission? No. cp 01:17 00:30 06/26/2018 00:22 Hospitalization Ordered by Deo Echeverria MD for Inpatient ak1 Admission. Preliminary diagnosis is Displaced fracture of base of neck of left femur. Bed requested for Telemetry/MedSurg (Inpatient). Status is Inpatient Admission. Condition is Stable. Problem is new. Symptoms have improved. UTI on Admission? No. cc
--- NOTE | 2018-06-26 00:23 | ER ---
Nurse's Notes [facility] Name: Sharla Tesfaye Age: 73 yrs Sex: Female : 1945 Arrival Date: 06/25/2018 Time: 22:09 Bed 17 Private MD: Diagnosis: Displaced fracture of base of neck of left femur Presentation: 06/25 22:10 Presenting complaint: EMS states: they were toned out for report of pt having fallen bb while walking her dog pt denied LOC and is c/o left hip pain. Care prior to arrival: IV initiated. 20 GA, in the left antecubital area. Mechanism of Injury: Fall from standing position. Trauma event details: Injury occurred in the [facility], Injury occurred: at home. Injury occurred: June 25, 2018. 22:10 Acuity: JENNIFER 3 bb 22:10 Method Of Arrival: EMS: [facility] bb 22:10 Transition of care: patient was not received from another setting of care. Onset of bb symptoms was June 25, 2018. Risk Assessment: Do you want to hurt yourself or someone else? Patient reports no desire to harm self or others. Initial Sepsis Screen: Does the patient meet any 2 criteria? No. Patient's initial sepsis screen is negative. Does the patient have a suspected source of infection? No. Patient's initial sepsis screen is negative. Historical: - Allergies: 22:43 Amoxicillin; bb 22:43 Codeine; bb 22:43 Etodolac; bb 22:43 Ibuprofen; bb 22:43 Demerol; bb 22:43 annaprox; bb - Home Meds: 22:43 aspirin 81 mg Oral chew 1 tab once daily [Active]; bisoprolol fumarate 5 mg Oral tab 1 bb tab once daily [Active]; calcium citrate 600 mg Oral gran [Active]; Fish Oil 1,000 mg Oral cap [Active]; gabapentin 300 mg oral cap 1 cap 3 times per day [Active]; spironolactone 25 mg Oral tab 1 tab once daily [Active]; pantoprazole 40 mg Oral TbEC 1 tab once daily [Active]; Vitamin C 1,000 mg Oral tab twice a day [Active]; D3 [Active]; paroxetine HCl 20 mg Oral tab 1 tab once daily [Active]; - PMHx: 22:43 Hypertension; bb - PSHx: 22:43 Gastric Bypass; Knee surgery; Cholecystectomy; Appendectomy; Hysterectomy; bb Tonsillectomy; - Immunization history: Last tetanus immunization: - up to date. - Social history:: Smoking status: Patient/guardian denies using tobacco, Patient/guardian denies using alcohol, street drugs. - Ebola Screening: : No symptoms or risks identified at this time. Screenin:10 Abuse screen: Denies threats or abuse. Tuberculosis screening: No symptoms or risk bb factors identified. 22:20 Nutritional screening: No deficits noted. Fall Risk Fall in past 12 months (25 points). bb Secondary diagnosis (15 points) IV access (20 points). Ambulatory Aid- None/Bed Rest/Nurse Assist (0 pts). Gait- Impaired (20 pts.). Mental Status- Overestimates/Forgets Limitations (15 pts.). Total Santoro Fall Scale indicates High Risk Score (45 or more points). Fall prevention measures have been instituted. Side Rails Up X 2 Family Present and informed to notify staff if the need to leave the bedside As available patient and family educated on Fall Prevention Program and Strategies. Primary Survey: 22:10 A: Airway: patent. Breathing/Chest: Respiratory pattern: regular, Respiratory effort: bb spontaneous, unlabored, Breath sounds: clear, bilaterally. Chest inspection: symmetrical rise and fall of the chest. Circulation: Heart tones present. Pulses: palpable right radial artery, right dorsalis pedis artery, left radial artery and left dorsalis pedis artery. Skin color: pink, Skin temperature: warm. Disability Alert. 06/26 00:28 Reassessment Airway Airway Breathing/Chest Respiratory pattern Regular Respiratory ak1 effort Spontaneous Unlabored. Secondary Survey: 06/25 22:10 HEENT: No deficits noted. Gastrointestinal: No deficits noted. Musculoskeletal: bb Capillary refill < 3 seconds, Reports pain in left groin and left buttock. Assessment: 22:10 General: Appears uncomfortable, well groomed, Behavior is calm, cooperative. Pain: bb Complains of pain in left groin area, left buttock Pain currently is 5 out of 10 on a pain scale. Neuro: Level of Consciousness is awake, alert, obeys commands, Oriented to person, place, time, situation. Cardiovascular: No deficits noted. Respiratory: Respiratory effort is even, unlabored. GI: No deficits noted. No signs and/or symptoms were reported involving the gastrointestinal system. Derm: Skin is pink, warm \T\ dry. Musculoskeletal: Capillary refill < 3 seconds, Reports pain in left groin, left buttock. 06/26 00:43 Reassessment: Consuelo, pt daughter, can be reached at [phone]. Jimmie, pt son, can be ak1 reached at [phone]. pt daughter contacted an informed of room assignment for pt. . Vital Signs: 06/25 22:10 BP 153 / 81; Pulse 81; Resp 16 S; Temp 99(O); Pulse Ox 98% on R/A; Weight 61.23 kg (R); bb Height 5 ft. 3 in. (160.02 cm) (R); Pain 5/10; 06/26 00:27 BP 137 / 62; Pulse 78; Resp 18; Pulse Ox 96% on R/A; ak1 06/25 22:10 Body Mass Index 23.91 (61.23 kg, 160.02 cm) bb Melbeta Coma Score: 06/25 22:10 Eye Response: spontaneous(4). Verbal Response: oriented(5). Motor Response: obeys bb commands(6). Total: 15. Trauma Score (Adult): 22:10 Eye Response: spontaneous(1); Verbal Response: oriented(1); Motor Response: obeys bb commands(2); Systolic BP: > 89 mm Hg(4); Respiratory Rate: 10 to 29 per min(4); Duane Score: 15; Trauma Score: 12 ED Course: 22:09 Patient arrived in ED. bb 22:09 Nigel Herbert PA is PHCP. cp 22:09 Nilesh Clemente MD is Attending Physician. cp 22:10 Patient has correct armband on for positive identification. Placed in gown. Bed in low bb position. Call light in reach. Side rails up X2. Family accompanied patient. 22:10 Patient maintains SpO2 saturation greater than 95% on room air. bb 22:11 Triage completed. bb 22:15 Thermoregulation: warm blanket given to patient. bb 22:34 Nereyda Hurt, RN is Primary Nurse. ak1 23:00 Pelvis XRAY In Process Unspecified. EDMS 23:00 XRAY Femur LEFT In Process Unspecified. EDMS 23:00 XRAY Chest (1 view) In Process Unspecified. EDMS 06/26 00:21 Deo Echeverria MD is Hospitalizing Provider. cp 00:29 No provider procedures requiring assistance completed. Patient admitted, IV remains in ak1 place. 00:30 Arm band placed on Patient placed in an exam room, on a stretcher, on pulse oximetry, ak1 Patient notified of wait time. Administered Medications: 06/25 22:18 Drug: morphine 4 mg Route: IVP; Site: left antecubital; bb 23:29 Follow up: Response: No adverse reaction ak1 23:52 Drug: NS 0.9% 1000 ml Route: IV; Rate: 75 ml/hr; Site: left antecubital; ak1 06/26 00:26 Follow up: IV Status: Infusion continued upon admission ak1 00:10 Drug: Potassium Chloride 20 mEq Route: IV; Rate: calculated rate; Site: left ak1 antecubital; 00:51 Follow up: IV Status: Infusion continued upon admission ak1 00:10 Drug: Potassium Effervescent Tablet 50 mEq Route: PO; ak1 00:26 Follow up: Response: No adverse reaction ak1 00:40 Drug: morphine 4 mg Route: IVP; Site: left antecubital; ak1 00:40 Follow up: Response: No adverse reaction ak1 00:52 Not Given (Patient Refused): Zofran 4 mg IVP once; over 2 minutes ak1 Intake: 06/25 22:10 PO: 0ml; Total: 0ml. bb Outcome: 06/26 00:22 Decision to Hospitalize by Provider. cp 00:29 Condition: stable ak1 00:29 waiting on bed assignment. Patient's length of stay extended due to 00:31 Instructed on the need for admit. ak1 00:52 Admitted to Med/surg accompanied by tech, via stretcher, room 424, with chart, Report ak1 called to Amanda 01:17 Patient left the ED. ak1 Signatures: Dispatcher [employer] EDNE Linda Harper, RN RN bb Nereyda Hurt RN RN ak1 Nigel Herbert PA PA cp
[2018-06-26] MEDS ORDERED: MORPHINE 4 MG/ML SYR ONE (00:43)
[2018-06-26] MEDS: D5 0.45 NS 1,000 ML IV SCH ×5 (03:06→23:28)
[2018-06-26] MEDS: MORPHINE 4 MG/ML SYR IV PRN ×4 (04:06→21:31)
[2018-06-26 06:19] LABS: Absolute Lymphocytes (CBC) 0.8 K/uL (0.7-4.9); Absolute Neutrophil 8.3 K/uL (1.8-8.0); Basophils % 0.3 % (0-1.3); Eosinophils % 0.1 % (0-4.4); Lymphocytes % 7.8 % (15.3-44.8); MCH 27.9 pg (27.0-35.0); Monocytes % 9.7 % (3.3-12.3); RBC Red Blood Cell Count 4.34 M/uL (3.86-4.86)
[2018-06-26 06:26] LABS: BUN Blood Urea Nitrogen 17 mg/dL (7-18); Bicarbonate 30 mmol/L (21-32); Glucose Level 145 mg/dL (74-106); Potassium 3.7 mmol/L (3.5-5.1); Sodium Level 144 mmol/L (136-145)
--- NOTE | 2018-06-26 07:27 | EKG ---
Test Date: 2018-06-25 Test Time: 23:26:21 Tool Specialist: BRADEN MEASUREMENT RESULTS: Intervals: Rate: 75 AK: 176 QRSD: 84 QT: 414 QTc: 462 Diamond: P: 70 AK: 176 QRS: 11 T: -1 INTERPRETIVE STATEMENTS: Normal sinus rhythm Nonspecific T wave abnormality Abnormal ECG Compared to ECG 11/14/2006 15:00:16 T-wave abnormality now present Electronically Signed On 06-26-18 07:26:19 CDT by Aydin Barron
[2018-06-26] MEDS ORDERED: INFLUENZA VACCINE (for 3y+) 0.5 ML DOSE IMVAC ONE (08:00)
[2018-06-26] MEDS ORDERED: PNEUMOCOCCAL VACCINE 0.5 ML IMVAC ONE (08:00)
--- NOTE | 2018-06-26 08:37 | RAD REPORT ---
EXAM DESCRIPTION: RAD - Chest Single View - 06/25/2018 11:00 pm CLINICAL HISTORY: fall Chest pain. COMPARISON: CHEST PA AND LAT 2 VIEW dated 01/07/2015; CHEST PA AND LAT 2 VIEW dated 07/05/2014 FINDINGS: Portable technique limits examination quality. The lungs are grossly clear. The heart is upper limit normal in size. No displaced fractures. IMPRESSION: No acute intrathoracic process suspected.
--- NOTE | 2018-06-26 08:39 | RAD REPORT ---
EXAM DESCRIPTION: RAD - Pelvis - 06/25/2018 10:59 pm CLINICAL HISTORY: fall COMPARISON: PELVIS dated 07/05/2014; Femur Left dated 06/25/2018 FINDINGS: AP pelvis and left femur, multiple projections. Intratrochanteric fracture the proximal left femur with varus angulation is noted. No dislocation yue dent.
--- NOTE | 2018-06-26 09:35 | RAD REPORT ---
EXAM DESCRIPTION: RAD - Femur Left - 06/25/2018 11:00 pm CLINICAL HISTORY: Fall COMPARISON: PELVIS dated 07/05/2014; Femur Left dated 06/25/2018 FINDINGS: AP pelvis and left femur, multiple projections. Intratrochanteric fracture the proximal left femur with varus angulation is noted. No dislocation yue dent.
[2018-06-26] MEDS ORDERED: HYDROCODONE/APAP 7.5/325 MG TAB PO PRN (12:53)
[2018-06-26] MEDS ORDERED: GABAPENTIN 300 MG CAP PO SCH (14:00)
--- NOTE | 2018-06-26 17:44 | P.HP ---
Certification for Inpatient Patient admitted to: Inpatient With expected LOS: >2 Midnights Practitioner: I am a practitioner with admitting privileges, knowledge of patient current condition, hospital course, and medical plan of care. Services: Services provided to patient in accordance with Admission requirements found in Title 42 Section 412.3 of the Code of Federal Regulations Patient History Date of Service: 06/26/18 Reason for admission: WALKING A DOG SHE FELL AND BROKE L FEMUR History of Present Illness: MS. BAUMANN HAS OSTEROPOROSIS, STARTED ON RECLAST RECENTLY. SHE FELL AND BROKE L HIP. SHE DENIES ANY DYSPNEA. Allergies amoxicillin Allergy (Verified 01/31/18 17:33) Unknown codeine Allergy (Verified 01/31/18 17:33) abdominal pain ibuprofen Allergy (Verified 01/31/18 17:33) Hives etodolac [From Lodine] Adverse Reaction (Verified 01/31/18 17:33) crushing chest pain when used with annaprox annaprox Adverse Reaction (Uncoded 01/31/18 17:33) crushing chest pain when used with lodine Home Medications: Gabapentin [Neurontin] 300 mg PO TID 06/17/15 Pantoprazole [Protonix Tab*] 40 mg PO DAILY 06/17/15 Spironolactone [Aldactone*] 25 mg PO DAILY 06/17/15 Aspirin [Children's Aspirin] 1 tab PO DAILY 01/29/18 Bisoprolol Fumarate [Zebeta*] 1 tab PO DAILY 01/29/18 Calcium Carbonate [Calcium] 1 tab PO DAILY 01/29/18 Fish Oil 227 mg PO BID 01/29/18 Vit C 1,000 mg PO DAILY 01/29/18 Vit D3` 5,000 iu PO DAILY 01/29/18 PARoxetine HCl [Paroxetine HCl] 20 mg PO DAILY 06/26/18 - Past Medical/Surgical History Has patient received pneumonia vaccine in the past: No Diabetic: No -: HTN -: Gastric bypass -: Knee surgery -: Cholecystectomy -: Appendectomy -: Hysterectomy -: tonsillectomy - Family History Father -: Diabetes - Social History Smoking Status: Never smoker Alcohol use: No CD- Drugs: No Caffeine use: No Place of Residence: Home Review of Systems 10-point ROS is otherwise unremarkable General: Malaise Physical Examination - Vital Signs Temperature: 98.0 F Blood Pressure: 120/59 Pulse: 70 Respirations: 16 Pulse Ox (%): 98 - Physical Exam General: Mild distress HEENT: Atraumatic, PERRLA, Mucous membr. moist/pink, EOMI, Sclerae nonicteric Neck: Supple, 2+ carotid pulse no bruit, No LAD, Without JVD or thyroid abnormality Respiratory: Clear to auscultation bilaterally, Normal air movement Cardiovascular: Regular rate/rhythm, Normal S1 S2 Gastrointestinal: Normal bowel sounds, No tenderness Musculoskeletal: Other (L HIP FRACT.) Integumentary: No rashes Neurological: Normal gait, Normal speech, Normal strength at 5/5 x4 extr, Normal tone, Normal affect Lymphatics: No axilla or inguinal lymphadenopathy - Studies Laboratory Data (last 24 hrs) 06/25/18 23:00: PT 13.5 H, INR 1.14 06/25/18 23:00: WBC 8.3, Hgb 12.5, Hct 37.8, Plt Count 214 06/25/18 23:00: Sodium 146 H, Potassium 2.9 L*, BUN 16, Creatinine 0.60, Glucose 102, Magnesium 1.7 L, Total Bilirubin 0.4, AST 83 H, ALT 37, Alkaline Phosphatase 123 H Assessment and Plan - Problems (Diagnosis) (1) Fracture of femoral neck, left, closed Onset Date: 06/26/18 Current Visit: Yes Status: Acute Plan: MEDICALLY CLEARED WITH MILD RISK. SHE HAS NO CARDIAC HISTORY . SHE HAS NO CHEST PAIN OR ANY SYMPTOMS OF CORONARY SYNDROME. Qualifiers: Encounter type: initial encounter Qualified Code(s): S72.002A - Fracture of unspecified part of neck of left femur, initial encounter for closed fracture - Advance Directives Does patient have a Living Will: No Does patient have a Durable POA for Healthcare: No
--- NOTE | 2018-06-27 00:29 | CON ---
Date of Consultation: 06/26/2018 Requested by Deo Echeverria MD regarding left hip fracture. This patient was brought to the emergency room on 06/25/2018 after suffering a fall while walking her dog. She suffered impact to the left hi p and was found on x-ray to have a basicervical fracture of the proximal left femur. Allergies: THE PATIENT'S ALLERGIES INCLUDE AMOXICILLIN, CODEINE, IBUPROFEN, ETODOLAC, AND ANAPROX. Home Medications: Reviewed and noted to include 81 mg aspirin daily, gabapentin 300 mg p.o. t.i.d., and [place] 10/325 four tablets per day. Social History: The patient does not use tobacco nor alcohol. Family History: Positive for father with diabetes. She is treated for hypertension, gastric bypass, knee surgery, cholecystectomy, appendectomy, hysterectomy, tonsillectomy. Review of Systems: A 10-point review was otherwise really unremarkable. Physical Examination: VITAL SIGNS: Stable with blood pressure 120/59, pulse 70, respirations 16, temperature 98.0, pulse o ximetry 98%. GENERAL: This is a well-nourished, well-developed, 73-year-old female in mild distress declaring gabo n in the left hip while drifting off during discussion this patient's medical situation. She has bee n receiving IV morphine 4 mg q.4 hours p.r.n. pain, watching the clock, but continuing to complain of pain between doses. HEENT: Within normal limits. NECK: Supple. CHEST: Clear to auscultation with normal air movement. CARDIOVASCULAR: Shows regular rate and rhythm. ABDOMEN: Soft and nontender with normal bowel sounds. GENITAL: Deferred. RECTAL: Deferred. MUSCULOSKELETAL: On examination of the musculoskeletal system, the patient has the left lower extrem ity in [place] traction to reduce movement for the basicervical fracture of the proximal femur. The pat ient has 2+ dorsal pedis pulses in the left foot and right foot. She is able to dorsiflex toes and a nkle on the left and capillary filling is quite brisk. X-rays are reviewed and show a basicervical f racture of the left femoral neck. This is between the greater and lesser trochanters with mild-to-mo derate displacement. Laboratory Results: Were showing pro-time slightly elevated at 13.5, INR 1.14, hemoglobin is 12.5 wi th hematocrit 37.8, WBC count is 8.3, and platelet count is 214. Sodium is 146, elevated, with potas sium low at 2.9, improved overnight to normal. BUN is 16, creatinine is 0.60, and glucose is 102, ma gnesium low at 1.7. Total bilirubin 0.4, AST 83, ALT 37, alkaline phosphatase 123. Assessment: Basicervical fracture of left femoral neck closed with displacement. Plan: The patient will be taken to surgery for intramedullary nail fixation of the left hip fracture . Risks and benefits were discussed at length and the patient and her sister have elected to proceed . The procedure is scheduled for between 10 and noon on 06/27/2018. PRAFUL/MARCIAL Voice ID: [id number] Report ID: [id number]
[2018-06-27 05:27] LABS: Urine Appearance CLOUDY; Urine Bilirubin NEGATIVE (NEG); Urine Blood NEGATIVE (NEG); Urine Color YELLOW; Urine Glucose NEGATIVE (NEG); Urine Protein NEGATIVE (NEG); Urine Specific Gravity 1.015 (1.005-1.030); Urine pH 6.5 (5.0-7.0)
[2018-06-27] MEDS: D5 0.45 NS 1,000 ML IV SCH ×2 (05:33→15:45)
[2018-06-27] MEDS: MORPHINE 4 MG/ML SYR IV PRN ×2 (05:33→16:37)
[2018-06-27 05:53] LABS: Urine Bacteria >50 /HPF (<20); Urine Culture Reflex Order REFLEXED
[2018-06-27 05:54] LABS: Urine RBC <5 /HPF (NONE SEEN)
[2018-06-27] MEDS ORDERED: TRANEXAMIC ACID 1,000 MG in NA CHLORIDE 0.9% 50 ML IV SCH (06:30)
[2018-06-27] MEDS ORDERED: CEFAZOLIN/SWI 1gm 1 GM/10 ML SYR ONE (10:02)
[2018-06-27] MEDS ORDERED: Ringers Lactate 1,000 ML IV ONE (10:25)
[2018-06-27] MEDS ORDERED: LIDOCAINE 2% MPF 5 ML VIAL ONE (10:37)
[2018-06-27] MEDS ORDERED: PROPOFOL 200 MG/20 ML VIAL IV ONE (10:40)
[2018-06-27] MEDS ORDERED: FENTANYL CITR 100 MCG/2 ML ONE (10:40)
[2018-06-27] MEDS: CEFAZOLIN/SWI 1gm 1 GM/10 ML SYR IVP SCH ×3 (11:02→17:24)
[2018-06-27] MEDS ORDERED: EPHEDRINE SULF 50 MG/10 ML SYR ONE (11:22)
[2018-06-27] MEDS: BUPIVACA 0.25%/EPI 0.0005% MDV 50 ML VIAL ONE ×3 (11:41→12:23)
--- NOTE | 2018-06-27 12:38 | P.PN ---
Subjective Date of Service: 06/27/18 Chief Complaint: WALKING A DOG SHE FELL AND BROKE L FEMUR Subjective: Improving Review of Systems 10-point ROS is otherwise unremarkable General: Weakness, Malaise Musculoskeletal: As per HPI Physical Examination - Vital Signs Temperature: 98.1 F Blood Pressure: 120/56 Pulse: 82 Respirations: 18 Pulse Ox (%): 98 - Physical Exam General: Alert, Mild distress HEENT: Atraumatic, PERRLA, EOMI Neck: Supple, JVD not distended Respiratory: Clear to auscultation bilaterally, Normal air movement Cardiovascular: Regular rate/rhythm, Normal S1 S2 Gastrointestinal: Normal bowel sounds, No tenderness Musculoskeletal: No tenderness Integumentary: No rashes Neurological: Normal speech, Normal tone, Normal affect Lymphatics: No axilla or inguinal lymphadenopathy - Studies Medications List Reviewed: Yes Assessment And Plan - Current Problems (Diagnosis) (1) Fracture of femoral neck, left, closed Onset Date: 06/26/18 Current Visit: Yes Status: Acute Plan: MEDICALLY CLEARED WITH MILD RISK. SHE HAS NO CARDIAC HISTORY . SHE HAS NO CHEST PAIN OR ANY SYMPTOMS OF CORONARY SYNDROME. SURGERY TODAY DR. HUBBARD. MEDICALLY STABLE. Qualifiers: Encounter type: initial encounter Qualified Code(s): S72.002A - Fracture of unspecified part of neck of left femur, initial encounter for closed fracture
--- NOTE | 2018-06-27 12:52 | P.BOP ---
Preoperative diagnosis: LEFT HIP BASICERVICAL FRACTURE PROXIMAL FEMUR Postoperative diagnosis: SAME Primary procedure: IM NAIL FIXATION LEFT HIP BASICERVICAL FRACTURE PROXIMAL FEMUR Evp And Chief Operating Officer: Tashia Ferrer ([employer]INE[employer]) Estimated blood loss: 50 mL Specimen: NONE Findings: BASICERVICAL FRACTURE PROXIMAL FEMUR Anesthesia: General Complications: None Implants: [id number];LAG [id number];AR screw 75mm;DISTAL SCREW 5x40mm Fluids & blood products: INJ. 30 mL 0.25%MARCAINE w/EPI Transferred to: Recovery Room Condition: Good
--- NOTE | 2018-06-27 12:53 | RAD REPORT ---
EXAM DESCRIPTION: RAD - Hip In Or - 06/27/2018 12:37 pm FINDINGS: Multiple portable C-arm views were obtained during fluoroscopic assisted placement of left hip fracture fixation hardware. Images show stepwise placement of the fracture fixation hardware. No suspicious or unexpected finding. There were 55 spot images submitted. Fluoro time was 0.9 minutes
[2018-06-27] MEDS ORDERED: HYDROCODONE/APAP 7.5/325 MG TAB PO PRN (13:07)
[2018-06-27 13:58] LABS: Hematocrit 39.3 % (36.0-45.0)
[2018-06-27] MEDS ORDERED: TRANEXAMIC ACID 1,000 MG in NA CHLORIDE 0.9% 50 ML IV ONE (14:00)
--- NOTE | 2018-06-27 14:18 | RAD REPORT ---
EXAM DESCRIPTION: RAD - Pelvis - 06/27/2018 1:58 pm CLINICAL HISTORY: Left femoral fracture FINDINGS: Intramedullary aquiles and compression screws affix a proximal left femoral fracture. No dislo cation is seen
[2018-06-27] MEDS ORDERED: CEFAZOLIN/NS 1gm 1 GM/50 ML BAG IVPB SCH (18:00)
[2018-06-28] MEDS: MORPHINE 4 MG/ML SYR IV PRN ×2 (00:33→06:23)
[2018-06-28] MEDS: CEFAZOLIN/SWI 1gm 1 GM/10 ML SYR IVP SCH (00:35)
[2018-06-28] MEDS: D5 0.45 NS 1,000 ML IV SCH ×3 (00:54→20:15)
[2018-06-28 04:51] LABS: Hematocrit 32.3 % (36.0-45.0)
[2018-06-28] MEDS ORDERED: RIVAROXABAN 10 MG TABLET PO SCH (09:00)
[2018-06-28] MEDS ORDERED: PNEUMOCOCCAL VACCINE 0.5 ML IMVAC ONE (17:00)
[2018-06-28] MEDS ORDERED: INFLUENZA VACCINE (for 3y+) 0.5 ML DOSE IMVAC ONE (17:00)
--- NOTE | 2018-06-28 17:36 | P.PN ---
Date of Service: 06/28/18 (POD#1) S: PATIENT IS SLEEPY AND LETHARGIC, SLOW TO AROUSE AND SLOWER TO FOLLOW INSTRUCTIONS. FIRST SESSION WITH PHYSICAL THERAPY THIS MORNING WAS QUITE LIMITED WITHOUT STANDING OR WALKING ACCOMPLISHED. O: VSS, BUT PATIENT MILDLY HYPOTENSIVE AT TIMES. PAIN INTENSITY RECORD LISTED 8, 4, 0, 2/10. HEMOGLOBIN WAS 11.1 THIS MORNING, WITH PREOP VALUE 12.1, AND POSTOP VALUE 12.8. THE PATIENT WAS STARTED ON XARELTO 10 MG BY MOUTH DAILY AT 10 :26 TODAY FOR 30 DAYS OF DVT PROPHYLAXIS. REPORT OF A.M. PT WAS REVIEWED WITH LETHARGY AND RIGID GUARDING DESCRIBED LIMITING MOBILIZATION EFFORT. BANDAGES ARE DRY AND INTACT. NEUROVASCULAR EXAM IS INTACT. A: LIMITED PROGRESS IN A.M. PHYSICAL THERAPY EFFORT LIKELY DUE TO OVER MEDICATION. P: PATIENT WAS INSTRUCTED TO CARRY OUT PROGRESSIVE BED EXERCISES BETWEEN SESSIONS WITH PHYSICAL THERAPY. I WAS ABLE TO DIRECT HER TO LIFT HER RIGHT LEG 5 TIMES. AT FIRST, EVEN THE RIGHT LEG WOULD NOT BUDGE, BUT AFTER CONVINCING COACHING, SHE WAS ABLE TO LIFT THE LEG 4-5 INCHES 5 TIMES AND THEN TRY WITH ALL HER MIGHT TO LIFT THE LEFT LEG. I LIFTED THE LEFT LEG AND PUT HER THROUGH GENTLE PASSIVE RANGE OF MOTION FOR KNEE AND HIP THAT WAS WELL TOLERATED WITHOUT GUARDING. EMPHASIS WAS PLACED ON MOVEMENT IS IMPERATIVE LACK OF MOVEMENT LEADS TO SERIOUS COMPLICATIONS. MORPHINE WILL BE REDUCED TO 3 MG THIS EVENING, AND BY MOUTH NORCO TABLETS WILL BE ENCOURAGED.
[2018-06-28] MEDS ORDERED: MORPHINE 4 MG/ML SYR IV PRN (17:37)
[2018-06-28] MEDS ORDERED: HYDROCODONE/APAP 7.5/325 MG TAB PO PRN (17:44)
[2018-06-28] MEDS: POLYETHYL GLY 3350 17 GM/DOSE PO SCH (21:25)
--- NOTE | 2018-06-28 22:11 | P.PN ---
Subjective Date of Service: 06/28/18 Chief Complaint: WALKING A DOG SHE FELL AND BROKE L FEMUR Subjective: Improving STABLE, SP SURGERY, CONSTIPATED NOW. Review of Systems 10-point ROS is otherwise unremarkable Musculoskeletal: As per HPI Physical Examination - Vital Signs Temperature: 97.6 F Blood Pressure: 161/60 Pulse: 100 Respirations: 18 Pulse Ox (%): 98 - Physical Exam General: Mild distress, Other (SEDATION FROM MEDS.) HEENT: Atraumatic, PERRLA, EOMI Neck: Supple, JVD not distended Respiratory: Clear to auscultation bilaterally, Normal air movement Cardiovascular: Regular rate/rhythm, Normal S1 S2 Gastrointestinal: Normal bowel sounds, No tenderness Musculoskeletal: No tenderness Integumentary: No rashes Neurological: Normal speech, Normal tone, Normal affect Lymphatics: No axilla or inguinal lymphadenopathy - Studies Medications List Reviewed: Yes Assessment And Plan - Current Problems (Diagnosis) (1) Fracture of femoral neck, left, closed Onset Date: 06/26/18 Current Visit: Yes Status: Acute Plan: MEDICALLY CLEARED WITH MILD RISK. SHE HAS NO CARDIAC HISTORY . SHE HAS NO CHEST PAIN OR ANY SYMPTOMS OF CORONARY SYNDROME. SURGERY TODAY DR. HUBBARD. MEDICALLY STABLE. REHAB CONSULT [facility]. Qualifiers: Encounter type: initial encounter Qualified Code(s): S72.002A - Fracture of unspecified part of neck of left femur, initial encounter for closed fracture
[2018-06-29] MEDS ORDERED: DIGOXIN 0.25 MG/ML AMP IV ONE (00:16)
--- NOTE | 2018-06-29 00:42 | OP ---
Date of Procedure: 06/27/2018 Surgeon: Zach Galvez MD High Density Talc Coater Operator: Malorie Ferrer, who gave very necessary printing assistant services throughout the case. Preoperative Diagnosis: Left hip basicervical fracture, proximal femur. Postoperative Diagnosis: Left hip basicervical fracture, proximal femur. Primary Procedures: Intramedullary nail fixation, left hip, basicervical fracture, proximal femur. Indications: This 73-year-old female fell impacting her left hip and suffered a displaced fracture t hat was closed and was brought to the [facility] ED where x-ray revealed a di splaced, but closed basicervical fracture of the left proximal femur. The patient has been admitted and is taken to surgery for intramedullary nail fixation for the left hip fracture. Technique: The patient was taken to the operating room and given a general anesthesia. She was plac ed on the fracture table with each foot secured in the boot with traction applied to the left lower e xtremity. The right lower extremity was abducted as much as possible to allow the C-arm to be positi oned between the legs for AP and lateral views of the left hip. The views were confirmed. Time-out was called and all pertinent facts for the surgery were discussed, and it was decided to proceed with the procedure. The prepping and draping was carried out with the vertical isolation drape positione d, so that an incision could be made proximal to the greater trochanter, approximately 3 cm in length . This incision was used to access the greater trochanter with a cannulated awl. The awl once it wa s positioned within the intratrochanteric area, a guidewire was passed distally through the intramedu llary canal to the knee. The size 13 mm x 180 mm AFFIXUS, 130-degree intramedullary nail was tapped into place across the fracture site into the proximal shaft of the left femur. Attention was turned then to the outrigger and positioning the lag screw. The C-arm AP view and lateral views verified go od position for the intramedullary nail. The guidewire was passed. It had moved proximally some, so it was withdrawn; and the nail was tapped distally and the second time the lag screw was passed, fabi ng certain that it was centered in the AP and lateral views. The cannulated drill was then utilized, and the 5.0 x 90 mm lag screw was chosen and rotated into position, which was verified with the C-ar m. A drill was used prior to inserting a 75-mm anti-rotational screw parallel to the lag screw acros s the lateral femoral cortex into the calcar of the left hip. Then, the outrigger was used to target and insert a distal screw 5.0 x 40 mm in length. This screw was placed in the static position. The femoral neck lag screw was locked into position; and then, the outrigger was removed. The incisions were irrigated profusely and closed with #1 Vicryl for deep and fascial layers, 2-0 Vicryl for subcu taneous layers, and skin caitlyn for the skin closure. The incisions were injected with 30 mL of 0.2 5% Marcaine with epinephrine. Estimated blood loss was 50 mL. As the patient was removed from the f racture table as soon as the foot was loosened, the hip was moved and flexion to 90 degrees and circu mduction motion was free and clear. The patient was then taken to the recovery room having tolerated this procedure well. PRAFUL/MARCIAL Voice ID: [id number] Report ID: [id number]
[2018-06-29] MEDS ORDERED: METOPROLOL TARTRATE 5 MG/5 ML INJ IV STA (01:24)
[2018-06-29 04:12] LABS: Hematocrit 36.9 % (36.0-45.0)
[2018-06-29] MEDS: D5 0.45 NS 1,000 ML IV SCH ×2 (05:29→07:53)
--- NOTE | 2018-06-29 07:52 | EKG ---
Test Date: 2018-06-29 Test Time: 00:11:28 Fruit Loader Machine Operator: RT MEASUREMENT RESULTS: Intervals: Rate: 158 SD: QRSD: 86 QT: 292 QTc: 473 [place]: P: SD: QRS: 7 T: 258 INTERPRETIVE STATEMENTS: Atrial fibrillation with rapid ventricular response ST & T wave abnormality, consider inferolateral ischemia or digitalis effect Abnormal ECG Compared to ECG 06/25/2018 23:26:21 ST (T wave) deviation now present Possible ischemia now present Sinus rhythm no longer present T-wave abnormality no longer present Electronically Signed On 06-29-18 07:52:01 CDT by Aydin Barron
[2018-06-29] MEDS: FISH OIL PO SCH ×2 (08:06→20:35)
[2018-06-29] MEDS: POLYETHYL GLY 3350 17 GM/DOSE PO SCH (08:16)
[2018-06-29] MEDS: GABAPENTIN 300 MG CAP PO SCH ×3 (08:17→20:35)
[2018-06-29] MEDS: SOTALOL HCL 80 MG TAB PO SCH ×2 (08:17→17:44)
[2018-06-29] MEDS: SPIRONOLACTONE 25 MG TABLET PO SCH (08:17)
[2018-06-29] MEDS: PARoxetine HCl 10 MG TAB PO SCH (08:17)
[2018-06-29] MEDS: PANTOPRAZOLE 40MG TABLET PO SCH (08:18)
[2018-06-29] MEDS ORDERED: CALCIUM CARBONATE PO SCH (09:00)
[2018-06-29] MEDS ORDERED: BISOPROLOL 5 MG TABLET PO SCH (09:00)
[2018-06-29] MEDS: ASPIRIN 81 MG CHEWABLE TABLET PO SCH (11:03)
--- NOTE | 2018-06-29 12:37 | RAD REPORT ---
EXAM DESCRIPTION: MRI - Brain Wo Cont - 06/29/2018 12:08 pm CLINICAL HISTORY: Acute onset altered mental status, recent history of fall COMPARISON: None. TECHNIQUE: Sagittal T1-weighted images were obtained along with axial PD, heavily T2-weighted and T2 -FLAIR images. Axial DWI and ADC mapping sequences were also obtained along with coronal heavily T2-w eighted images. FINDINGS: No epidural or subdural hematoma present. No mass effect, edema or shift of midline struct ures. Patient has scattered chronic ischemic change mild to moderate for age. Atrophy is mild. Ventri cles are in proportion to any volume loss. There is chronic ischemic changes extends into the brainst em. Diffusion-weighted imaging shows a 9 x 3 millimeter area of increased signal in the left frontal lobe white matter. There is no diminished signal on ADC mapping. No extra-axial fluid collections. Gr ay-matter/white matter junction is preserved. Signal voids are seen as a normal finding in the major intracranial vessels. No globe or orbital content abnormality. No sella or supra sella finding. Mastoid air cells and paranasal sinuses are clear. 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 No intracranial hemorrhage, acute infarction or other emergent finding.
--- NOTE | 2018-06-29 13:10 | CON ---
CARDIOLOGY CONSULT Chief Complaint: Hip pain. Reason For Cardiology Consult: AFib. History Of Present Illness: Ms. Tesfaye fell. She had a hip fracture, it was an intertrochanteric femoral neck fracture, left femur. It was repaired on the , so 2 days ago and then yesterday she went into AFib. The patient is very groggy from having received narcotic pain medicine just before the interview. She is able to tell me she has had atrial fib in the past. She does not remember exa ctly when, she remembers it was twice before and both times it was associated with a surgery. She wa s not given any special medications to take, not on blood thinners. In January of this year, she was in our hospital and not really able to tell what the exact problem was, but I think it was a fall with s ome facial injuries or shoulder injuries. She denies having chest pain. She does not have diabetes. She has had no history of stroke or myocardial infarction or vascular disease. Social History: Uses no tobacco. Medications: Outpatient medications before falling and having her surgery were spironolactone, gabap entin, Protonix, calcium carbonate, vitamin D3, aspirin, Zebeta, vitamin C, fish oil, and Paroxetine. Allergies: SHE IS ALLERGIC TO AMOXICILLIN, CODEINE, IBUPROFEN, AND ETODOLAC. Physical Examination: Vital Signs: 5 feet 3 inches, 139 pounds. General: She is alert, slightly confused, unable to give a very cogent history. Lungs: Clear. Heart: Irregularly irregular. Abdomen: Soft. Extremities: Normal. Normal distal pulses. Laboratory Data: Her EKG when she first arrived showed sinus rhythm. Her electrocardiogram from yes terday or this morning shows atrial fib, rapid ventricular response, nonspecific ST and T-wave abnorm ality. Plan: Betapace was ordered, not yet given. I suspect Betapace will be very helpful to her. She is also going to get rivaroxaban. I think, her first dose was last night, although I am not certain of exactly when she got her first dose. I think, between now and then it might be leo to give her at [facility] a low dose of Lovenox and also receive a 1 dose of IV digoxin, I would recommend we do not raymond nue that. I think between Betapace and rivaroxaban we are going to see a resumed sinus rhythm and th ose would be medicines I would recommend continuing on an outpatient basis, this being her third epis ode of AFib. GRADY Voice ID: [id number] Report ID: [id number]
--- NOTE | 2018-06-29 16:51 | EKG ---
Test Date: 2018-06-29 Test Time: 16:03:27 Assembler Musical Equipment: SANDRA MEASUREMENT RESULTS: Intervals: Rate: 69 DE: 166 QRSD: 86 QT: 418 QTc: 447 [place]: P: 56 DE: 166 QRS: 16 T: -82 INTERPRETIVE STATEMENTS: Normal sinus rhythm ST & T wave abnormality, consider inferolateral ischemia Abnormal ECG Compared to ECG 06/29/2018 00:11:28 Atrial fibrillation no longer present ST (T wave) deviation still present Electronically Signed On 06-29-18 16:50:39 CDT by Aydin Barron
[2018-06-29] MEDS: RIVAROXABAN 20 MG TABLET PO SCH (16:52)
[2018-06-29] MEDS ORDERED: TRAMADOL HCL 50 MG TAB PO PRN (20:58)
--- NOTE | 2018-06-29 21:31 | P.PN ---
Subjective Date of Service: 06/29/18 Chief Complaint: WALKING A DOG SHE FELL AND BROKE L FEMUR Subjective: No new changes STABLE, SP SURGERY, CONSTIPATED NOW. Review of Systems 10-point ROS is otherwise unremarkable General: Weakness, Malaise Neurological: Confusion (FROM ADMISSION NURSES NOTED SOME CONFUSION.) Physical Examination - Vital Signs Temperature: 99.8 F Blood Pressure: 126/58 Pulse: 69 Respirations: 16 Pulse Ox (%): 98 - Physical Exam General: Alert, In no apparent distress HEENT: Atraumatic, PERRLA, EOMI Neck: Supple, JVD not distended Respiratory: Clear to auscultation bilaterally, Normal air movement Cardiovascular: Regular rate/rhythm, Normal S1 S2 Gastrointestinal: Normal bowel sounds, No tenderness Musculoskeletal: No tenderness Integumentary: No rashes Neurological: Normal speech, Normal tone, Normal affect Lymphatics: No axilla or inguinal lymphadenopathy - Studies Medications List Reviewed: Yes Assessment And Plan - Current Problems (Diagnosis) (1) Fracture of femoral neck, left, closed Onset Date: 06/26/18 Current Visit: Yes Status: Acute Plan: MEDICALLY CLEARED WITH MILD RISK. SHE HAS NO CARDIAC HISTORY . SHE HAS NO CHEST PAIN OR ANY SYMPTOMS OF CORONARY SYNDROME. SURGERY TODAY DR. HUBBARD. MEDICALLY STABLE. REHAB CONSULT [facility]. Qualifiers: Encounter type: initial encounter Qualified Code(s): S72.002A - Fracture of unspecified part of neck of left femur, initial encounter for closed fracture (2) A-fib Current Visit: Yes Status: Acute Plan: NEW, I STARTED BTAPACE AND RAISED XARELTO TO 20 MG DAILY BY THIS PM HR IS DOWN FROM 150 TO 60. STABLE. 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
--- NOTE | 2018-06-29 21:36 | P.PN ---
Date of Service: 06/29/18 (POD#2) S: PATIENT SEEN AT APPROXIMATELY 1 PM WAS FOUND IN HER MOST RESPONSIVE AND WAKEFUL STATE SINCE ADMISSION. SHE DID MENTION THAT MORNING THERAPY WAS A SLUGGISH TIME FOR HER BECAUSE OF 3 MG MORPHINE DOSE GIVEN AT 03:42. WE DISCUSSED HER DEVELOPMENT OF ATRIAL FIBRILLATION, AND SHE RELATED 3 PRIOR EPISODES, ALL AT TIMES OF SURGERY. BEING A SURGEON, I SUGGESTED MAYBE IT WAS CLOSE PROXIMITY TO A COSMETIC ACCOUNT COORDINATOR DURING HOSPITALIZATIONS THAT BROUGHT ABOUT DISCOVERY OF THESE EPISODES. O: VSS, PAIN INTENSITY RECORD LISTED 0, 7, 0, 0/10. HEMOGLOBIN WAS 12.6 THIS MORNING, UP FROM 11.1 YESTERDAY. THE PATIENT WAS STARTED ON XARELTO 10 MG BY MOUTH DAILY AT 10:26 TUESDAY WITH PLANS FOR 30 DAYS OF DVT PROPHYLAXIS. DR. FRANCOIS BUMPED TO 20 MG. TODAY AFTER ONSET OF ATRIAL FIBRILLATION. BANDAGES NOTED TO BE DRY AND INTACT. NEUROVASCULAR EXAM IS INTACT. A: REDUCED DOSE OF 3 MG MORPHINE STILL SEEMED TO OVERWHELM PATIENT TODAY. PATIENT ALSO STARTED THIS MORNING AT 08:17 ON HOME MEDICATION GABAPENTIN 300 MG BY MOUTH 3 TIMES A DAY, AND GOT SECOND DOSE SHORTLY AFTER MY VISIT AT 13:45. P: PATIENT WAS ENCOURAGED TO CONTINUE BED EXERCISES BETWEEN SESSIONS WITH PHYSICAL THERAPY. IV MORPHINE IS DISCONTINUED. STILL NO NORCO TABLETS GIVEN SO THAT IS DC'D. PATIENT AND SISTER BOTH INDICATED SHE HAS TAKEN NORCO WITHOUT PROBLEMS, BUT CODEINE ALLERGY LISTED IS PROBABLY REASON IT HASN'T BEEN USED. EXPECT POST OP DAY 3 PAIN OF INCISION WILL BE GREATLY REDUCED, AND PATIENT LIKELY TO NEED NO MORE THAN TRAMADOL 50 MG BY MOUTH EVERY 6 HOURS WHEN NECESSARY FOR PAIN.
[2018-06-30] MEDS: SOTALOL HCL 80 MG TAB PO SCH ×2 (05:28→17:10)
[2018-06-30] MEDS: PANTOPRAZOLE 40MG TABLET PO SCH (05:28)
[2018-06-30 06:40] VITALS: BMI 24.7
[2018-06-30] MEDS: FISH OIL PO SCH ×2 (08:30→20:17)
[2018-06-30] MEDS: POLYETHYL GLY 3350 17 GM/DOSE PO SCH (08:33)
[2018-06-30] MEDS: SPIRONOLACTONE 25 MG TABLET PO SCH (08:34)
[2018-06-30] MEDS: PARoxetine HCl 10 MG TAB PO SCH (08:34)
[2018-06-30] MEDS: GABAPENTIN 300 MG CAP PO SCH ×3 (08:35→20:17)
[2018-06-30] MEDS: ASPIRIN 81 MG CHEWABLE TABLET PO SCH (08:35)
[2018-06-30] MEDS ORDERED: CALCIUM CARBONATE 500 MG TAB PO SCH (09:00)
--- NOTE | 2018-06-30 09:55 | RAD REPORT ---
EXAM DESCRIPTION: US - CP - 06/30/2018 9:11 am CLINICAL HISTORY: CVA COMPARISON: None. TECHNIQUE: Real-time sonographic evaluation of both carotid systems was performed. Birch scale and Do ppler interrogation were performed with waveform tracing bilaterally. FINDINGS: Normal high resistance waveforms are noted in both external carotid arteries. The common c arotid arteries and internal carotid arteries show normal low resistance waveforms. Mild noncalcified plaquing changes are present in the right carotid bulb with a small amount of calci fied plaquing in the left bulb. On visual inspection no significant luminal narrowing identifiable. P eak systolic and end diastolic velocity values and the ICA/CCA ratios are in the non-hemodynamically significant range. Variability in the left ICA velocity values is believed to be secondary to tortuos ity. Antegrade flow seen in both vertebral arteries. Velocity values and ratios were recorded and are retained in the patient's imaging records. IMPRESSION: Mild carotid bulb plaquing changes are present. No evidence of a hemodynamically significant stenosis.
[2018-06-30] MEDS: D5 0.45 NS 1,000 ML IV SCH (16:42)
[2018-06-30] MEDS: RIVAROXABAN 20 MG TABLET PO SCH (17:10)
--- NOTE | 2018-06-30 18:04 | P.PN ---
Subjective Date of Service: 06/30/18 Chief Complaint: A. FIB NOW HAS RESOLVED. SHE IS LOT MORE AWAKE. Subjective: Improving STABLE, SP SURGERY, CONSTIPATED NOW. Review of Systems 10-point ROS is otherwise unremarkable Physical Examination - Vital Signs Temperature: 97.5 F Blood Pressure: 143/65 Pulse: 66 Respirations: 20 Pulse Ox (%): 99 - Physical Exam General: Alert, Mild distress HEENT: Atraumatic, PERRLA, EOMI Neck: Supple, JVD not distended Respiratory: Clear to auscultation bilaterally, Normal air movement Cardiovascular: Regular rate/rhythm, Normal S1 S2 Gastrointestinal: Normal bowel sounds, No tenderness Musculoskeletal: No tenderness Integumentary: No rashes Neurological: Normal speech, Normal tone, Normal affect Lymphatics: No axilla or inguinal lymphadenopathy - Studies Medications List Reviewed: Yes Assessment And Plan - Current Problems (Diagnosis) (1) Fracture of femoral neck, left, closed Onset Date: 06/26/18 Current Visit: Yes Status: Acute Plan: MEDICALLY CLEARED WITH MILD RISK. SHE HAS NO CARDIAC HISTORY . SHE HAS NO CHEST PAIN OR ANY SYMPTOMS OF CORONARY SYNDROME. SURGERY TODAY DR. HUBBARD. MEDICALLY STABLE. REHAB CONSULT [facility]. Qualifiers: Encounter type: initial encounter Qualified Code(s): S72.002A - Fracture of unspecified part of neck of left femur, initial encounter for closed fracture (2) A-fib Current Visit: Yes Status: Acute Plan: NEW, I STARTED BTAPACE AND RAISED XARELTO TO 20 MG DAILY BY THIS PM HR IS DOWN FROM 150 TO 60. STABLE. RESOLVD ON CURRENT MDS. CONTINUE. 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
[2018-06-30] MEDS: ATORVASTATIN 10 MG TAB PO SCH (20:17)
[2018-07-01] MEDS: PANTOPRAZOLE 40MG TABLET PO SCH (05:28)
[2018-07-01] MEDS: SOTALOL HCL 80 MG TAB PO SCH ×2 (05:28→18:15)
[2018-07-01 06:12] LABS: Hematocrit 33.2 % (36.0-45.0)
[2018-07-01] MEDS: FISH OIL PO SCH ×2 (09:00→21:00)
[2018-07-01] MEDS: POLYETHYL GLY 3350 17 GM/DOSE PO SCH (09:00)
[2018-07-01] MEDS: PARoxetine HCl 10 MG TAB PO SCH (09:08)
[2018-07-01] MEDS: ASPIRIN 81 MG CHEWABLE TABLET PO SCH (09:08)
[2018-07-01] MEDS: SPIRONOLACTONE 25 MG TABLET PO SCH (09:09)
[2018-07-01] MEDS: GABAPENTIN 300 MG CAP PO SCH ×3 (09:09→21:41)
[2018-07-01] MEDS: CALCIUM CARBONATE 500 MG TAB PO SCH (09:10)
[2018-07-01] MEDS: RIVAROXABAN 20 MG TABLET PO SCH (16:51)
--- NOTE | 2018-07-01 19:38 | P.PN ---
Date of Service: 07/01/18 (POD#4) S: PATIENT COMFORTABLE, NO LONGER USING PAIN MEDICATION. AFTER GOING 5' YESTERDAY WITH RW. TODAY SHE MANAGED 24'. O: VSS, PAIN INTENSITY RECORD LISTED 0, 0, 0, 0. HEMOGLOBIN WAS 11.3 THIS MORNING, STABLE FROM 11.4 YESTERDAY. BANDAGES NOTED TO BE DRY AND INTACT. NEUROVASCULAR EXAM IS INTACT. A: PATIENT HAS STARTED MAKING PROGRESS WITH THERAPY. P: PATIENT ENCOURAGED TO CONTINUE BED EXERCISES BETWEEN SESSIONS WITH PHYSICAL THERAPY. POSSIBLE MOVE TO 5TH FLOOR REHABILITATION TOMORROW. CONTINUE SAME PT ORDERS FOR MOBILIZATION WITH [facility] LLE.
[2018-07-01] MEDS: ATORVASTATIN 10 MG TAB PO SCH (21:41)
[2018-07-01] MEDS: D5 0.45 NS 1,000 ML IV SCH (22:45)
[2018-07-02] MEDS: SOTALOL HCL 80 MG TAB PO SCH (05:30)
[2018-07-02] MEDS: PANTOPRAZOLE 40MG TABLET PO SCH (05:30)
[2018-07-02 08:47] VITALS: O2SAT 97
[2018-07-02] MEDS: SPIRONOLACTONE 25 MG TABLET PO SCH (08:47)
[2018-07-02] MEDS: FISH OIL PO SCH (08:48)
[2018-07-02] MEDS: CALCIUM CARBONATE 500 MG TAB PO SCH (08:48)
[2018-07-02] MEDS: GABAPENTIN 300 MG CAP PO SCH ×2 (08:48→13:43)
[2018-07-02] MEDS: ASPIRIN 81 MG CHEWABLE TABLET PO SCH (08:48)
[2018-07-02] MEDS: POLYETHYL GLY 3350 17 GM/DOSE PO SCH (08:48)
[2018-07-02] MEDS: PARoxetine HCl 10 MG TAB PO SCH (08:54)
--- NOTE | 2018-07-02 10:36 | P.PN ---
Subjective Date of Service: 07/02/18 Chief Complaint: STABLE, LOT MORE AWAKE STABLE, SP SURGERY, CONSTIPATED NOW. SAW PATIENT ON , NOTE ONE ONE DAY LATE. SHE HAS NO MORE ISSUES. SHE REFUSED IV AGAIN. Review of Systems 10-point ROS is otherwise unremarkable Physical Examination - Vital Signs Temperature: 97.3 F Blood Pressure: 140/58 Pulse: 61 Respirations: 18 Pulse Ox (%): 98 - Physical Exam General: Oriented x3, Mild distress HEENT: Atraumatic, PERRLA, EOMI Neck: Supple, JVD not distended Respiratory: Clear to auscultation bilaterally, Normal air movement Cardiovascular: Regular rate/rhythm, Normal S1 S2 Gastrointestinal: Normal bowel sounds, No tenderness Musculoskeletal: Other Integumentary: No rashes Neurological: Normal speech, Normal tone, Normal affect Lymphatics: No axilla or inguinal lymphadenopathy - Studies Medications List Reviewed: Yes Assessment And Plan - Current Problems (Diagnosis) (1) Fracture of femoral neck, left, closed Onset Date: 06/26/18 Current Visit: Yes Status: Acute Plan: MEDICALLY CLEARED WITH MILD RISK. SHE HAS NO CARDIAC HISTORY . SHE HAS NO CHEST PAIN OR ANY SYMPTOMS OF CORONARY SYNDROME. SURGERY TODAY DR. HUBBARD. MEDICALLY STABLE. REHAB CONSULT [facility] FOR [facility]STIPATION. REHAB WILL TAKE HER ON TUESDAY. Qualifiers: Encounter type: initial encounter Qualified Code(s): S72.002A - Fracture of unspecified part of neck of left femur, initial encounter for closed fracture (2) A-fib Current Visit: Yes Status: Acute Plan: NEW, I STARTED BTAPACE AND RAISED XARELTO TO 20 MG DAILY BY THIS PM HR IS DOWN FROM 150 TO 60. STABLE. RESOLVD ON CURRENT MDS. CONTINUE. 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
--- NOTE | 2018-07-02 10:37 | P.PN ---
Subjective Date of Service: 07/02/18 Chief Complaint: NO MORE CONSTIPATION. Subjective: Improving STABLE, SP SURGERY, CONSTIPATED NOW. SAW PATIENT ON , NOTE ONE ONE DAY LATE. SHE HAS NO MORE ISSUES. SHE REFUSED IV AGAIN. TO REHAB TODAY. Review of Systems 10-point ROS is otherwise unremarkable General: Weakness, Malaise Physical Examination - Vital Signs Temperature: 97.3 F Blood Pressure: 140/58 Pulse: 61 Respirations: 18 Pulse Ox (%): 98 - Physical Exam General: Alert, In no apparent distress HEENT: Atraumatic, PERRLA, EOMI Neck: Supple, JVD not distended Respiratory: Clear to auscultation bilaterally, Normal air movement Cardiovascular: Regular rate/rhythm, Normal S1 S2 Gastrointestinal: Normal bowel sounds, No tenderness Musculoskeletal: No tenderness Integumentary: No rashes Neurological: Normal speech, Normal tone, Normal affect Lymphatics: No axilla or inguinal lymphadenopathy - Studies Medications List Reviewed: Yes Assessment And Plan - Current Problems (Diagnosis) (1) Fracture of femoral neck, left, closed Onset Date: 06/26/18 Current Visit: Yes Status: Acute Plan: MEDICALLY CLEARED WITH MILD RISK. SHE HAS NO CARDIAC HISTORY . SHE HAS NO CHEST PAIN OR ANY SYMPTOMS OF CORONARY SYNDROME. SURGERY TODAY DR. HUBBARD. MEDICALLY STABLE. REHAB CONSULT [facility] FOR CONSTIPATION. REHAB WILL TAKE HER ON TUESDAY. Qualifiers: Encounter type: initial encounter Qualified Code(s): S72.002A - Fracture of unspecified part of neck of left femur, initial encounter for closed fracture (2) A-fib Current Visit: Yes Status: Acute Plan: NEW, I STARTED BTAPACE AND RAISED XARELTO TO 20 MG DAILY BY THIS PM HR IS DOWN FROM 150 TO 60. STABLE. RESOLVD ON CURRENT MDS. CONTINUE. STABLE HR CONTINUE MEDS BETAPACE AND XARELTO. 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
--- NOTE | 2018-07-02 10:41 | P.DS ---
Admission Date: 06/25/18 Discharge Date: 07/02/18 Disposition: TRANSFER TO INPATIENT REHAB Discharge Condition: FAIR Reason for Admission: NO MORE CONSTIPATION. 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 BAUMANN HAS OSTEROPOROSIS, STARTED ON RECLAST RECENTLY. SHE FELL AND BROKE L HIP. SHE DENIES ANY DYSPNEA. DUPLICATE NOTE TODAY STABLE FOR REHAB. Vital Signs/Physical Exam: Temp Pulse Resp BP Pulse Ox 97.3 F 61 18 140/58 L 98 07/02/18 10:37 07/02/18 10:37 07/02/18 10:37 07/02/18 10:37 07/02/18 10:37 Laboratory Data at Discharge: WBC 10.1 K/uL (4.3-10.9) D 06/26/18 05:48 Hgb 11.3 g/dL (12.0-15.0) L 07/01/18 05:25 Hct 33.2 % (36.0-45.0) L 07/01/18 05:25 Plt Count 213 K/uL (152-406) 06/26/18 05:48 PT 13.5 SECONDS (9.5-12.5) H 06/25/18 23:00 INR 1.14 06/25/18 23:00 Sodium 144 mmol/L (136-145) 06/26/18 05:48 Potassium 3.7 mmol/L (3.5-5.1) 06/26/18 05:48 BUN 17 mg/dL (7-18) 06/26/18 05:48 Creatinine 0.60 mg/dL (0.55-1.3) 06/26/18 05:48 Glucose 145 mg/dL (74-106) H 06/26/18 05:48 Magnesium 1.7 mg/dL (1.8-2.4) L 06/25/18 23:00 Total Bilirubin 0.4 mg/dL (0.2-1.0) 06/25/18 23:00 AST 83 U/L (15-37) H 06/25/18 23:00 ALT 37 U/L (12-78) 06/25/18 23:00 Alkaline Phosphatase 123 U/L (45-117) H 06/25/18 23:00 Triglycerides 69 mg/dL (<150) 06/29/18 21:45 Cholesterol 106 mg/dL (<200) 06/29/18 21:45 HDL Cholesterol 48 mg/dL (40-60) 06/29/18 21:45 Cholesterol/HDL Ratio 2.21 06/29/18 21:45 Home Medications: Gabapentin [Neurontin] 300 mg PO TID 06/17/15 Pantoprazole [Protonix Tab*] 40 mg PO DAILY 06/17/15 Spironolactone [Aldactone*] 25 mg PO DAILY 06/17/15 Aspirin [Children's Aspirin] 1 tab PO DAILY 01/29/18 Calcium Carbonate [Calcium] 1 tab PO DAILY 01/29/18 Vit C 1,000 mg PO DAILY 01/29/18 Vit D3` 5,000 iu PO DAILY 01/29/18 PARoxetine HCl [Paroxetine HCl] 20 mg PO DAILY 06/26/18 Atorvastatin Calcium [Lipitor*] 10 mg PO BEDTIME tab 07/02/18 Sotalol HCl [Betapace*] 80 mg PO BID 6AM 6PM tab 07/02/18 Followup: Deo Echeverria MD [Primary Care Provider] - Zach Galvez MD [ACTIVE - CAN ADMIT] -
[2018-07-02 12:59] VITALS: BP 109/58; TEMP 98.1
== END 2018-07-02 14:25 | DRG 480 ==
LOC: ER 21:56 → ERHOLD 23:17 → 4TH 06-26 00:58
PROVIDERS: ADMIT Internal Medicine; ATTEND Internal Medicine
PROC: 0QS704Z Reposition Left Upper Femur with Internal Fixation Device, Open Approach (ICD-10-PCS; principal; 2018-06-27 10:30)
DX: S72.042A Displaced fracture of base of neck of left femur, initial encounter for closed fracture (principal); I63.9 Cerebral infarction, unspecified; W01.198A Fall on same level from slipping, tripping and stumbling with subsequent striking against other object, initial encounter; Y93.01 Activity, walking, marching and hiking; Y92.017 Garden or yard in single-family (private) house as the place of occurrence of the external cause; M81.0 Age-related osteoporosis without current pathological fracture; Z88.6 Allergy status to analgesic agent; Z88.1 Allergy status to other antibiotic agents; Z88.5 Allergy status to narcotic agent; Z88.8 Allergy status to other drugs, medicaments and biological substances; Z98.84 Bariatric surgery status; K59.00 Constipation, unspecified
CPT/HCPCS: 36415; 70551; 71045; 72170; 73530; 80048; 80061; 80076; 81001; 82962; 83735; 84484; 85014; 85018; 85025; 85610; 87077; 87086; 87088; 87186; 90670; 93005; 93880; 96365; 96375; 97163; 99285; G0008; G0009; J0690; J1160; J3010; J7030; Q2035

== ENCOUNTER 2018-07-02 00:07 | Inpatient (IN) | payer OTHER ==
--- NOTE | 2018-07-02 06:47 | R.PREADM ---
SCREENING DATE AND TIME 07/02/2018 02:38 (CDT) ANTICIPATED REHAB ADMISSION DATE 07/04/2018 REFERRING FACILITY [facility] REFERRAL DATE AND TIME 07/02/2018 02:38 (CDT) REFERRAL ROOM# [id number] ACUTE ADMIT DATE 06/25/2018 Previous Rehabilitation(s): No. ACUTE INCLUSION SPECIALIST/DC PRECISION LENS GENERATOR Hollie Jean REFERRING PHYSICIAN Deo Echeverria REHAB FACILITY [facility] CLINICAL LIAISON Jonnathan Mcneil PHYSICIAN REVIEWER Dr. Luke Major M.D. MR# [id number] NAME FRANCE BAUMANN ADDRESS [address] [facility] [facility] [address] DATE OF 1945 AGE 73 SSN# [id number] GENDER female MARITAL STATUS RACE white ADMIT FROM 02 - [facility] PRE-HOSPITAL LIVING SETTING 01 - Home (private home/apt. board/care, assisted living, penitentiary, transitional living) HOME TYPE AND DETAILS Type of home: single family house # of levels in the residence: 1 # of steps within the residence: 0 # of steps to enter the residence: 1 PRE-HOSPITAL LIVING WITH Family/Relatives FAMILY SUPPORT Yes PRIMARY FAMILY CONTACT NAME Consuelo Tuttle PRIMARY FAMILY CONTACT PHONE PHONE PRIMARY FAMILY CONTACT ON ADM.? no IS PRIMARY FAMILY CONTACT AUTH. REP.? no 1ST EMERGENCY CONTACT Consuelo Tuttle 1ST CONTACT PHONE PHONE 1ST CONTACT ON ADM. no IS 1ST CONTACT AUTH. REP.? no PHONE 2ND CONTACT ON ADM.? no PATIENT EMPLOYMENT STATUS Retired (for age) PATIENT EMPLOYER No Employer PAYOR INFORMATION: 1ST PAYOR NAME MEDICARE 1ST PAYOR PHONE [phone] 1ST PAYOR INJURY/ILLNESS DUE TO ACCIDENT? No ANOTHER [employer] RESPONSIBLE? No PRIMARY REHAB/ACUTE DIAGNOSIS: Left Femoral Neck Fracture ONSET DATE 06/25/2018 REHAB IMPAIRMENT CATEGORY (KATHIE): 07 Fracture of LE (FracLE) MEETS 60% rule AFFECTED EXTREMITIES: LLE PRIMARY DIAGNOSIS-RELATED SURGERIES: Intramedullary Nail Fixation, left hip COMORBID REHAB/ACUTE DIAGNOSES: - N/A Hypertension Atrial Fibrillation Left CVA humerus fracture INTERVENTIONS: - Hypertension Fluid management Medications VS RISK FOR COMPLICATIONS: - Hypertension CVA Hypotension HI TIA SUMMARY OF ACUTE HOSPITALIZATION: Pt. is a 73 yo Right-handed white female. Her impairment category is Orthopaedic Disorders 08 - Unilateral Hip Fracture (08). Pre-morbidly, Pt. was independent/mod-I in Sphincter Control, Transfers Control, Communication, Socia l Cognition, Self-Care, and Locomotion; and she had good Sphincter Control. Currently, she has deficits of Safety Awareness, Transfers Control, Balance, Self-Care, Locomotion, a nd Endurance. Pt. is now referred to [facility] for acute in-patient rehabilitation in order to maximize patient's functional independence in activities of daily living, strength, ROM, and mobi lity. Patient has realistic goal of being discharged at assistance level 6-Candy to reside at Home with Fam brian/Relatives. PAST MEDICAL HISTORY Hypertension Left CVA humerus fracture Atrial Fibrillation PAST SURGICAL HISTORY: Gastric Bypass Knee Surgery Cholecystectomy Appendectomy Hysterectomy Tonsillectomy MEDICATION ALLERGIES: Amoxicillin Codeine Ibuprofen Etodolac Annaprox ENVIRONMENTAL ALLERGIES: None Known - Substance Allergies None Known - Other Allergies None Known CODE STATUS: Full code WEIGHT/HEIGHT/BMI: WEIGHT 140 lbs HEIGHT 5' 3" BMI 24.8 DIET: - Diet Type Regular - Diet - Solid Texture Regular - Diet - Liquid Texture Regular - Tube Feed N/A SKIN DIAGRAM: Incision on Left upper leg; extent - small; stage - NS(Not Stageable). Treatment - Per Physician's Or ders. REVIEW OF SYSTEMS: - Gen Alert and awake Lying in bed No apparent distress Oriented to: person, time, and place - Vital Signs Temperature: 98.6 F SBP/DBP: 139/65 Pulse: 73 Resp: 18 Vital signs stable, afebrile - CVS RRR VITAL SIGNS Temperature: 98.6 F SBP/DBP: 139/65 Pulse: 73 Resp: 18 Vital signs stable, afebrile CURRENT SPHINCTER CONTROL: Pre-hospital bladder status: continent # of bladder accidents in the last 7 days prior to screenin Pre-hospital bowel status: continent # of bowel accidents in the last 7 days prior to screenin Last Bowel Movement Date: 07/02/2018 DETAILED CURRENT FUNCTIONAL STATUS: - Bladder accident frequency: Ind - No accidents in the past 7 days - Bowel accident frequency: Ind - No accidents in the past 7 days - Walking score based on distance walked: 1(<=50ft) - Wheelchair score based on distance traveled: 0(N/A) FUNCTIONAL STATUS: - Self-Care A. Eating Ind sup B. Grooming Ind Ind C. Bathing Ind sup D. Dressing - Upper Ind sup E. Dressing - Lower Ind Nelson F. Toileting Ind Nelson - Sphincter Control G: Bladder control Ind Ind H: Bowel control Ind Ind - Transfers Control I. Bed/Chair/Wheelchair Ind modA J. Toilet Ind modA K. Tub/Shower Ind ADNO - Locomotion L. Walk/Wheelchair (C) Ind modA L. Walk/Wheelchair (W) Ind modA M. Stairs Ind ADNO - Communication N. Comprehension (B) Ind Ind O. Expression (B) Ind Ind - Social Cognition P. Social Interaction Ind Ind Q. Problem Solving Ind Ind R. Memory Ind Ind - Endurance Poor - Balance Poor - Safety Awareness Fair CURRENT FUNC. DEFICITS: Safety Awareness, Transfers Control, Balance, Self-Care, Locomotion, and Endurance THERAPY NOTES FROM ACUTE CARE: Attached. SPECIAL NEEDS: - Safety Concerns Skin breakdown precautions needed due to skin breakdown risk PRECAUTIONS: - Anterior Hip Precaution No abduction No active extension No adduction across midline No external rotation No hip flexion >90 degrees No internal rotation - Posterior Hip Precaution No adduction across midline No external rotation No hip flexion >90 degrees No internal rotation No wheel chair propulsion - Weight Bearing Precaution TTWB left LE PATIENT NEEDS ACTIVE AND ONGOING THERAPEUTIC INTERVENTION OF MULTIPLE THERAPY DISCIPLINES, INCLUDING: - Occupational Therapy Evaluate and Treat. - Physical Therapy Evaluate and Treat. PATIENT NEEDS CLOSE MEDICAL SUPERVISION BY A REHABILITATION PHYSICIAN FOR: Bowel and Bladder Management Coordination of Treatment Team Medical and Co-Morbidity Management Wound Care DVT Management Pain Management PATIENT REQUIRES 24X7 REHAB NURSING FOR MEDICAL AND FUNCTIONAL MGT. OF THE FOLLOWING DEFICITS: ADL's Ambulation Bowel and Bladder Management Communication Disease Management Medication Management Patient/Family Education Providing Safe Environment Skin Integrity Transfers Pain Management PATIENT REQUIRES INTENSIVE, COORDINATED INTERDISCIPLINARY APPROACH TO REHAB: Arranging Home Equipment/Services Discharge Planning Family Intervention/Training Gut Carrier/Case Management PATIENT REHAB POTENTIAL: Expected level of measurable improvement will be of a practical value to patient's functional capacit y or adaptations to impairments Has a viable Discharge Plan Medically appropriate; condition is sufficiently stable to participate in intensive rehab program Patient is able and expected to receive 3 hours of individualized therapy daily on at least 5 of ever y 7 days Patient's prognosis for significant practical improvement within a reasonable period of time appears Good DISCHARGE PLAN: - Estimated Length of Stay (days) 14. - Consensus on plan Discharge plan has been discussed with primary caregiver. Patient/Family is in agreement with the jeremy n. Primary caregiver is in agreement with the plan. - Patient/Family Goals Return home with assistance. - Planned Living Setting Upon Discharge Home, to live with Family/Relatives. RECOMMENDED CARE LEVEL: IRF RECOMMENDATION DETAILS: Recommended Admission to Comprehensive Rehabilitation Program to Increase Functional [place] SCREENER'S COMPLETENESS CONFIRMATION: - Screening Confirmation The patient data collection on this preadmission screening form is finished PHYSICIANS REVIEW AND ADMISSION DETERMINATION Admit - Based on my review of the Pre-Admission Screening results, in my medical judgment and experie nce, I concur with the findings and recommend admission to [facility], as this patient requires an IRF level of care. SIGNATURE PANEL: Clinical Liaison - [electronically] signed by Jonnathan Mcneil on 07/02/2018 at 03:23 (CDT) Physician Reviewer - [electronically] signed by Dr. Luke Major M.D. on 07/02/2018 at 06:30 (CDT )
--- OUTSIDE RECORDS SUMMARY | 2018-07-02 14:36 | XMS REPORT ---
[...] End Status Dosage System Date Date Pantoprazole [facility] 26322485321 40 MG Oral Active TAKE 1 Sodium TABLET BY MOUTH EVERY DAY 1 HOUR BEFORE FOOD Aspirin ND 49546343919 81 MG Orally April 06, Active 1 tablet Once a day 2017 Spironolactone [facility] 23770837042 25 MG Oral Active TAKE 1 TABLET BY MOUTH EVERY DAY Gabapentin [facility] 00243767303 300 MG Oral Active TAKE 1 CAPSULE BY MOUTH THREE TIMES A DAY Bisoprolol [facility] 20085905696 5 MG Oral Active TAKE 1 Fumarate TABLET BY MOUTH EVERY DAY Paroxetine HCl [facility] 51221396257 20 MG Oral Active TAKE 1 TABLET BY MOUTH EVERYDAY AT BEDTIME Results No Known Results Summary Purpose eClinicalWorks Submission
--- OUTSIDE RECORDS SUMMARY | 2018-07-02 14:36 | XMS REPORT | Clinical Summary ---
:1945 Author Organization [facility] Address [address] [place] [address] Care Team Providers Name Role Phone Rodolfo [...] INFLUENZA VACCINE 04/19/2018 Results Not on fileafter 07/01/2017 Insurance Payer Benefit Plan / Group Subscriber ID Type Phone Address [employer]ET[employer] AET[employer] PPO OPEN CHOICE xxxxxxxxx PPO MEDICARE MEDICARE PART A AND B xxxxxxxxxx Medicare [place], [place] [phone] [phone]
--- OUTSIDE RECORDS SUMMARY | 2018-07-02 14:36 | XMS REPORT ---
[...] End Status Dosage System Date Date Gabapentin [facility] [id number] 300 MG Oral Active TAKE 1 CAPSULE BY MOUTH THREE TIMES A DAY Bisoprolol ND 33791778472 5 MG Oral Active TAKE 1 Fumarate TABLET BY MOUTH EVERY DAY Clindamycin HCl [facility] [id number] 300 MG Oral Active TAKE ONE CAPSULE BY MOUTH 3 TIMES A DAY UNTIL ALL TAKEN Ciprofloxacin HCl [facility] 43879460621 0.3 % Active INSTILL 1 Ophthalmic DROP INTO LEFT EYE 4 TIMES A DAY FOR 1 WEEK Aspirin ND 21435860097 81 MG Orally April 06, Active 1 tablet Once a day 2017 Pantoprazole ND 83233074551 40 MG Oral Active TAKE 1 Sodium TABLET BY MOUTH EVERY DAY 1 HOUR BEFORE FOOD Tramadol HCl [facility] 74521249309 50 MG Oral Active (Schedule IV Drug) TAKE 1 TABLET BY MOUTH EVERY 6 HOURS NEEDED FOR PAIN Triamcinolone ND 56892591971 0.1 % External Active APPLY TO Acetonide AFFECTED AREA TWICE A DAY Duloxetine HCl [facility] 92243438636 60 MG Oral Active TAKE ONE CAPSULE BY MOUTH EVERY DAY Paroxetine HCl [facility] 38610158314 20 MG Oral Active TAKE 1 TABLET BY MOUTH EVERYDAY AT BEDTIME Spironolactone NDC 02803658636 25 MG Oral Active TAKE 1 TABLET BY MOUTH EVERY DAY Results No Known Results Summary Purpose eClinicalWorks Submission
[2018-07-02] MEDS ORDERED: DOCUSATE NA/SENNA CONC 1 TAB PO PRN (15:54)
[2018-07-02] MEDS: SOTALOL HCL 80 MG TAB PO SCH (17:38)
[2018-07-02] MEDS: RIVAROXABAN 10 MG TABLET PO SCH (17:38)
[2018-07-02] MEDS ORDERED: GABAPENTIN 300 MG CAP PO SCH (21:00)
[2018-07-02] MEDS: ATORVASTATIN 10 MG TAB PO SCH (22:07)
[2018-07-02] MEDS: GABAPENTIN 300 MG CAP PO SCH (22:07)
[2018-07-02] MEDS: PARoxetine HCl 10 MG TAB PO SCH (22:08)
[2018-07-02 22:19] LABS: Urine Appearance CLOUDY; Urine Bilirubin NEGATIVE (NEG); Urine Blood NEGATIVE (NEG); Urine Color YELLOW; Urine Glucose NEGATIVE (NEG); Urine Protein NEGATIVE (NEG); Urine Specific Gravity 1.015 (1.005-1.030); Urine pH 7.5 (5.0-7.0)
[2018-07-02 23:20] LABS: Urine Bacteria LOADED /HPF (<20); Urine Culture Reflex Order NOT NEEDED; Urine RBC NONE SEEN /HPF (NONE SEEN)
--- NOTE | 2018-07-03 01:36 | FAST ---
SHIFT START DATE/TIME: 07/02/2018 19:00 (CDT) SHIFT END DATE/TIME: 07/03/2018 07:00 (CDT) NAME FRANCE BAUMANN DATE OF : 1945 DATE OF ADMISSION: 07/02/2018 14:34 (CDT) PHONE: AGE: 73 N# [id number] GENDER: Female ENCOUNTER PHYSICIAN: Dr. Luke Major M.D. ADMISSION DIAGNOSIS: - Orthopaedic Disorders 08 - Unilateral Hip Fracture (08.11) Left Femoral Neck Fracture. EATING: Activity did not occur on this shift EATING - SCORE: 0-UNK GROOMING: Comb/brush hair Wash, rinse, and dry face Wash, rinse, and dry hands GROOMING - STEP 1: Does the patient require assistance when grooming? Yes. GROOMING - STEP 2: Does the patient require the assistance of a helper? Yes. GROOMING - STEP 3: How much assistance does the patient require from the helper? Only prior equipment preparation/set up from the helper GROOMING - SCORE: 5-SUP BATHING: Activity did not occur on this shift BATHING - SCORE: 0-UNK DRESSING - UPPER BODY: Patient is not dressing in public clothing ARTICLES SCORE Total number of steps: 0 DRESSING - UPPER BODY - SCORE: 0-UNK DRESSING - LOWER BODY: Patient is not dressing in public clothing ARTICLES SCORE Total number of steps: 0 DRESSING - LOWER BODY - SCORE: 0-UNK TOILETING: TOILETING - STEP 1: Does the patient require assistance with toileting? Yes. TOILETING - STEP 2: Does the patient require the assistance of a helper? Yes. TOILETING - STEP 3: How much assistance does the patient require from the helper? Hands-on assistance from the helper TOILETING - STEP 4: Of the 3 tasks: 1) Adjusting clothing prior to use, 2) Cleansing of perineal area, 3) Adjusting clot feroz after use; How many tasks does the patient perform WITHOUT assistance of the helper? Two tasks TOILETING - SCORE: 3-MOD BLADDER MANAGEMENT: BLADDER MANAGEMENT - STEP 1: Does the patient control the bladder completely and intentionally without equipment or devices or med ications, and is always continent? No. BLADDER MANAGEMENT - STEP 2: Does the patient require the assistance of a helper? Yes. BLADDER MANAGEMENT - STEP 3: How much assistance does the patient require from the helper? Only set-up of equipment - such as plac ing it within reach of the patient or emptying a device - to maintain either satisfactory voiding pat tern or managing an external device, such as an absorbent pad, ileal device, or catheter BLADDER MANAGEMENT - SCORE: 5-SUP BOWEL MANAGEMENT: Activity did not occur on this shift BOWEL MANAGEMENT - SCORE: 7-IND TRANSFERS: BED, CHAIR, WHEELCHAIR: TRANSFERS: BED, CHAIR, WHEELCHAIR - STEP 1: Does the patient require assistance with bed, chair, or wheelchair transfers? Yes. TRANSFERS: BED, CHAIR, WHEELCHAIR - STEP 2: Does the patient require the assistance of a helper? Yes. TRANSFERS: BED, CHAIR, WHEELCHAIR - STEP 3: How much assistance does the patient require from the helper? Lifting of the legs TRANSFERS: BED, CHAIR, WHEELCHAIR - STEP 4: How many legs does the patient require the helper to lift? both legs TRANSFERS: BED, CHAIR, WHEELCHAIR - SCORE: 3-MOD TRANSFERS: TOILET: TRANSFERS: TOILET - STEP 1: Does the patient require assistance with toilet transfers? Yes. TRANSFERS: TOILET - STEP 2: Does the patient require the assistance of a helper? Yes. TRANSFERS: TOILET - STEP 3: How much assistance does the patient require from the helper? Patient performs half or more of the tr ansferring tasks TRANSFERS: TOILET - STEP 4: Does the patient need only incidental help such as contact guard or steadying during toilet transfer? No. Patient needs more than incidental help TRANSFERS: TOILET - SCORE: 3-MOD TRANSFERS: SHOWER: Activity did not occur on this shift TRANSFERS: SHOWER - SCORE: 0-UNK TRANSFERS: TUB: Activity did not occur on this shift TRANSFERS: TUB - SCORE: 0-UNK LOCOMOTION: WALK: Activity did not occur on this shift LOCOMOTION: WALK - SCORE: 0-UNK LOCOMOTION: WHEELCHAIR: Activity did not occur on this shift LOCOMOTION: WHEELCHAIR - SCORE: 0-UNK COMPREHENSION: COMPREHENSION: TYPE: Both COMPREHENSION - STEP 1: Does the patient require help to understand complex and abstract ideas (such as current events, finan shea, discharge planning, medical issues, relationships, etc)? No. COMPREHENSION - STEP 2: Does the patient need extra time, require an assistive device (such as glasses for visual comprehensi on or a hearing aid for auditory comprehension) or does s/he have mild difficulty understanding compl ex and abstract information? Yes. COMPREHENSION - SCORE: 6-TINO EXPRESSION EXPRESSION: TYPE: Both EXPRESSION - STEP 1: Does the patient require help expressing complex and abstract ideas (such as current events, finances , discharge planning, medical issues, relationships, etc)? No. EXPRESSION - STEP 2: Does the patient need extra time, require an assistive device (such as augmentive communication syste m or a communication board), OR does s/he have mild difficulty expressing complex and abstract ideas (including mild dysarthria or mild word-find problems)? No. EXPRESSION - SCORE: 7-IND SOCIAL INTERACTION: SOCIAL INTERACTION - STEP 1: Does the patient require a helper to interact with others in social and therapeutic situations? No. SOCIAL INTERACTION - STEP 2: Does the patient need extra time in social situations, OR does s/he interact with staff, other patien ts, and family members ONLY in structured environments, OR does s/he require medication for social in teraction? Yes, patient needs extra time SOCIAL INTERACTION - SCORE: 6-TINO PROBLEM SOLVING: PROBLEM SOLVING - STEP 1: Does the patient need help to solve complex problems such as managing a checking account or confronti ng interpersonal problems? No. PROBLEM SOLVING - STEP 2: Does the patient require extra time to make decisions or solve problems, OR does s/he have slight dif ficulty reading, initiating, or self-correcting in unfamiliar situations? Yes, patient needs extra ti me. PROBLEM SOLVING - SCORE: 6-TINO MEMORY: MEMORY - STEP 1: Does the patient need help to remember frequently encountered people, daily routines, and executing r equests? No. MEMORY - STEP 2: Does the patient have slight difficulty recognizing frequently encountered people, daily routines, or executing requests without the need for repetition or using self-initiated or environmental cues to remember? Yes. MEMORY - SCORE: 6-TINO SIGNATURE PANEL: The following modified sections: Eating - Score, Grooming - Score, Dressing - Upper Body - Score, Adam ssing - Lower Body - Score, Toileting - Score, Bladder Management - Score, Bowel Management - Score, Transfers: Bed, Chair, Wheelchair - Score, Transfers: Toilet - Score, Transfers: Shower - Score, Jo sfers: Tub - Score, Locomotion: Walk - Score, Locomotion: Wheelchair - Score, Comprehension - Score, Expression - Score, Social Interaction - Score, Problem Solving - Score, Memory - Score were [electro nically] signed by Ellen Canada CNA on TueJul 03 2018 01:28:07 GMT-0500 (Central Daylight Time)
[2018-07-03] MEDS: SOTALOL HCL 80 MG TAB PO SCH ×2 (05:23→17:34)
[2018-07-03 06:13] LABS: Absolute Lymphocytes (CBC) 2.4 K/uL (0.7-4.9); Absolute Neutrophil 4.6 K/uL (1.8-8.0); Eosinophils % 3.6 % (0-4.4); Lymphocytes % 28.6 % (15.3-44.8); MCH 27.5 pg (27.0-35.0); MPV 9.9 fL (7.6-11.3); Monocytes % 11.6 % (3.3-12.3)
[2018-07-03 06:21] LABS: Albumin 2.4 g/dL (3.4-5.0); BUN Blood Urea Nitrogen 13 mg/dL (7-18); Bicarbonate 31 mmol/L (21-32); Glucose Level 111 mg/dL (74-106); Magnesium 2.1 mg/dL (1.8-2.4); Prealbumin 11.8 mg/dL (20-40); Sodium Level 143 mmol/L (136-145)
[2018-07-03] MEDS ORDERED: PANTOPRAZOLE 40MG TABLET PO SCH (06:30)
[2018-07-03] MEDS: GABAPENTIN 300 MG CAP PO SCH ×3 (07:11→21:52)
[2018-07-03] MEDS: ASPIRIN EC 81 MG TAB PO SCH (07:12)
[2018-07-03] MEDS: HYDROCODONE/APAP 5/325 MG TAB PO PRN ×3 (07:12→20:09)
[2018-07-03] MEDS: VITAMIN D 5,000 UNIT CAP PO SCH (07:13)
[2018-07-03] MEDS ORDERED: CALCIUM CARBONATE 500 MG TAB PO SCH (08:00)
[2018-07-03] MEDS ORDERED: SPIRONOLACTONE 25 MG TABLET PO SCH (08:00)
[2018-07-03] MEDS ORDERED: ASCORBIC ACID 500 MG TABLET PO SCH (08:00)
--- NOTE | 2018-07-03 13:34 | R.HP ---
FACILITY: [facility] ENCOUNTER DATE AND TIME: 07/03/2018 13:26 (CDT) MR#: [id number] NAME FRANCE BAUMANN ADDRESS: [address] [place] [address] CITY: [place] STATE: [place]IP [id number] PHONE: DATE OF : 1945 AGE: 73 SSN# [id number] GENDER: Female DEXTERITY Right-handed MARITAL STATUS RACE White PRE-HOSPITAL LIVING SETTING 01 - Home (private home/apt. board/care, assisted living, correction, transitional living) PRE-HOSPITAL LIVING WITH Family/Relatives ENCOUNTER PHYSICIAN: Dr. Luke Major M.D. REFERRING DOCTOR: joseph Echeverria DATE OF ADMISSION: 07/02/2018 14:34 (CDT) REFERRING FACILITY [facility] HOME TYPE AND DETAILS: Type of home: single family house # of levels in the residence: 1 # of steps within the residence: 0 # of steps to enter the residence: 1 ADMISSION DIAGNOSIS: Left Femoral Neck Fracture ONSET DATE: 06/25/2018 PRIMARY DIAGNOSIS-RELATED SURGERIES: Intramedullary Nail Fixation, left hip SECONDARY/COMORBID DIAGNOSES (TIERED): - N/A Hypertension Atrial Fibrillation Left CVA humerus fracture HISTORY OF PRESENT ILLNESS (HPI): Pt. is a 73 yo Right-handed white female. Her impairment category is Orthopaedic Disorders 08 - Unilateral Hip Fracture (08.11). Pre-morbidly, Pt. was independent/mod-I in Sphincter Control, Transfers Control, Communication, Socia l Cognition, Self-Care, and Locomotion; and she had good Sphincter Control. Currently, she has deficits of Safety Awareness, Transfers Control, Balance, Self-Care, Locomotion, a nd Endurance. Pt. is now referred to [facility] for acute in-patient rehabilitation in order to maximize patient's functional independence in activities of daily living, strength, ROM, and mobi lity. Patient has realistic goal of being discharged at assistance level 6-Candy to reside at Home with Fam brian/Relatives. MEDICATION ALLERGIES: Amoxicillin Codeine Ibuprofen Etodolac Annaprox ENVIRONMENTAL ALLERGIES: None Known - Substance Allergies None Known - Other Allergies None Known PAST MEDICAL HISTORY: Hypertension Left CVA humerus fracture Atrial Fibrillation PAST SURGICAL HISTORY: Gastric Bypass Knee Surgery Cholecystectomy Appendectomy Hysterectomy Tonsillectomy FAMILY HISTORY: Family history is not contributory. SOCIAL HISTORY: - Home Living Family/Relatives REVIEW OF SYSTEMS: - Gen No Chills Fatigue No Fever - Eyes No Double Vision No itchiness - ENMT No Difficulty Swallowing - CVS No Chest Discomfort No Chest Pain No Fatigue No Weight Gain - Resp No Cough No Shortness of Breath - GI Continent No Abdominal Pain No Constipation No Diarrhea - Continent No Kidney Pain No Painful Urination No Urinary Urgency - MSK No Joint Pain Muscle Cramps Stiffness - Skin No Itching No Rash No Suspicious Lesions - Neuro No Coordination Difficulty No Difficulty with Concentration No Memory Loss No Seizures Weakness - Psych No Anxiety No Depression No HIV Exposure No Persistent Infections No Seasonal Allergies - Endo No Cold/Heat Intolerance No Excessive Hunger No Excessive Thirst No Excessive Urination PHYSICAL EXAM - Gen Alert and awake Lying in bed No apparent distress Oriented to: person, time, and place - Skin left hip incision intact No numbness - Eyes No discharge - ENMT No abnormalities - Neck No abnormalities - CVS RRR - Chest Clear - Abd +bowel sounds - GI Soft Deferred - No abnormalities - Ext Left hip surgical site has good hemostasis. - MSK 4+/5 weakness in left lower extremity - Neuro No abnormalities - Psych No abnormalities VITAL SIGNS Temperature: 98.6 F SBP/DBP: 139/65 Pulse: 73 Resp: 18 NURSING: - Shower allowing shower - Skin care per protocol PRECAUTIONS: - Anterior Hip Precaution No abduction No active extension No adduction across midline No external rotation No hip flexion >90 degrees No internal rotation - Posterior Hip Precaution No adduction across midline No external rotation No hip flexion >90 degrees No internal rotation No wheel chair propulsion - Weight Bearing Precaution TTWB left LE ACTIVITIES OOB only with supervision FUNCTIONAL STATUS: - Self-Care A. Eating Ind sup B. Grooming Ind Ind C. Bathing Ind sup D. Dressing - Upper Ind sup E. Dressing - Lower Ind Nelson F. Toileting Ind Nelson - Sphincter Control G: Bladder control Ind Ind H: Bowel control Ind Ind - Transfers Control I. Bed/Chair/Wheelchair Ind modA J. Toilet Ind modA K. Tub/Shower Ind ADNO - Locomotion L. Walk/Wheelchair (C) Ind modA L. Walk/Wheelchair (W) Ind modA M. Stairs Ind ADNO - Communication N. Comprehension (B) Ind Ind O. Expression (B) Ind Ind - Social Cognition P. Social Interaction Ind Ind Q. Problem Solving Ind Ind R. Memory Ind Ind - Endurance Poor - Balance Poor - Safety Awareness Fair CURRENT FUNC. DEFICITS: Safety Awareness, Transfers Control, Balance, Self-Care, Locomotion, and Endurance ASSESSMENT: Pt. is a 73 yo Right-handed white female.Her impairment category is Orthopaedic Disorders 08 - Unila teral Hip Fracture (04.29).Pre-morbidly, Pt. was independent/mod-I in Sphincter Control, Transfers Co ntrol, Communication, Social Cognition, Self-Care, and Locomotion; and she had good Sphincter Control .Currently, she has deficits of Safety Awareness, Transfers Control, Balance, Self-Care, Locomotion, and Endurance.Pt. is now referred to [facility] for acute in-patient rehabilit ation in order to maximize patient's functional independence in activities of daily living, strength, ROM, and mobility.- Rehab Goal Patient has realistic goal of being discharged at assistance level 6-Candy to reside at Home with Fam brian/Relatives. REHAB PLAN: - Physical Therapy Decreased range of motion - to improve, our physical therapists will perform initial evaluation of pt 's status upon admission and devise an individualized program for increasing patient's Range of Motio n. Gait dysfunction - to improve, our physical therapists will perform initial evaluation of pt's status upon admission and devise an individualized program for Gait Training, and Wheel Chair mobility Inability to transfer - to improve, our physical therapists will perform initial evaluation of pt's s tatus upon admission and devise an individualized program for Bed mobility Need for home safety evaluation - to improve, our physical therapists will perform initial evaluation of pt's status upon admission and devise an individualized program for Home Evaluation Need in caregiver upon discharge - to improve, our physical therapists will perform initial evaluatio n of pt's status upon admission and devise an individualized program for Caregiver Training New precaution - to improve, our physical therapists will perform initial evaluation of pt's status u riki admission and devise an individualized program for Patient precaution education Poor balance - to improve, our physical therapists will perform initial evaluation of pt's status upo n admission and devise an individualized program for Balance Training Poor endurance - to improve, our physical therapists will perform initial evaluation of pt's status u riki admission and devise an individualized program for Endurance Training Weakness - to improve, our physical therapists will perform initial evaluation of pt's status upon ad mission and devise an individualized program for Aquatic Therapy, Neuromuscular Reeducation, and Stre ngthening Achieving independence - to improve, our physical therapists will perform initial evaluation of pt's status upon admission and devise an individualized program for Community Reintegration Activities - Occupational Therapy ADL deficits - to improve, our occupation therapists will perform initial evaluation of pt's status u riki admission and devise an individualized program for Bathing, Bed mobility, Community Reintegration , Cooking, Dressing, Eating, Fine Motor Skills, Grooming, Homemaking, Kitchen Mobility, Laundry, Angie ent Education, Safety Awareness, Splinting - Positioning, Transfers(Toilet, Tub, Shower), and Wheel C hair Management Need for career manager - to improve, our occupation therapists will perform initial evaluation of pt's s tatus upon admission and devise an individualized program for Caregiver Training Weakness - to improve, our occupation therapists will perform initial evaluation of pt's status upon admission and devise an individualized program for Aquatic Therapy, Balance, Endurance, UE ROM, and U E strengthening MEDICAL PLAN: - Anterior Hip Precaution No abduction No active extension No adduction across midline No external rotation No hip flexion >90 degrees No internal rotation - Diet - Liquid Texture Start Regular - Tube Feed Start N/A - Diet Type Start Regular - Posterior Hip Precaution No adduction across midline No external rotation No hip flexion >90 degrees No internal rotation No wheel chair propulsion - Weight Bearing Precaution TTWB left LE - Skin care per protocol - Diet - Solid Texture Regular - Shower shower DISCHARGE PLAN: - Estimated Length of Stay (days) 14. - Consensus on plan Discharge plan has been discussed with primary caregiver. Patient/Family is in agreement with the jeremy n. Primary caregiver is in agreement with the plan. - Patient/Family Goals Return home with assistance. - Planned Living Setting Upon Discharge Home, to live with Family/Relatives. SIGNATURE PANEL: (CDT)
--- NOTE | 2018-07-03 13:35 | PAPE ---
PATIENT: [facility] MR# [id number] REFERRING DOCTOR joseph Echeverria EVALUATION DATE AND TIME 07/03/2018 13:33 (CDT) NAME FRANCE BAUMANN DATE OF 1945 AGE 73 PHONE SSN# [id number] GENDER female EVALUATING PHYSICIAN Dr. Luke Major M.D. ADMISSION DIAGNOSIS: Left Femoral Neck Fracture ONSET DATE 06/25/2018 SECONDARY/COMORBID DIAGNOSES TIERED: - N/A Hypertension Atrial Fibrillation Left CVA humerus fracture POST-ADMISSION FUNCTIONAL/MEDICAL STATUS: - Bladder Same accident frequency: Ind - No accidents in the past 7 days - Bowel Same accident frequency: Ind - No accidents in the past 7 days - Walking Same score based on distance walked: 1(<=50ft) - Wheelchair Same score based on distance traveled: 0(N/A) STATUS CHANGE EVALUATION: No change in Functional or Medical Status is identified compared with Pre-Admission screening. PATIENT NEEDS CLOSE MEDICAL SUPERVISION BY A REHABILITATION PHYSICIAN FOR: Bowel and Bladder Management Coordination of Treatment Team Medical and Co-Morbidity Management Wound Care DVT Management Pain Management PATIENT REQUIRES 24X7 REHAB NURSING FOR MEDICAL AND FUNCTIONAL MGT. OF THE FOLLOWING DEFICITS: ADL's Ambulation Bowel and Bladder Management Communication Disease Management Medication Management Patient/Family Education Providing Safe Environment Skin Integrity Transfers Pain Management PATIENT REQUIRES INTENSIVE, COORDINATED INTERDISCIPLINARY APPROACH TO REHAB: Arranging Home Equipment/Services Discharge Planning Family Intervention/Training Photographer Motion Picture/Case Management LIST OF IDENTIFIED AND POTENTIAL PROBLEMS: Alteration in leisure activities Bladder, Incontinence Blood Pressure, Hypertension/hypotension Issues Bowel, Incontinence Infection, Actual or Potential Mobility Impaired Pain, Alteration in Comfort Self Care Deficit Skin Integrity, Actual or Potential Urinary Tract Infection (UTI), Actual or Potential RISK FOR COMPLICATIONS - Hypertension CVA. Hypotension. ID. TIA. INTERVENTIONS - Hypertension PATIENT COULD BE AT RISK FOR COMPLICATIONS FROM ADVERSE MEDICAL CONDITIONS DUE TO HIS/HER COMORBIDITI ES AND THE RIGORS OF THE INTENSIVE REHABILLITATION PROGRAM. METHODS OR INTERVENTIONS TO AVOID COMPLIC ATIONS INCLUDE: - Deep Vein Thrombosis (DVT) Prophylaxis therapy for prevention . Sequential Compression Device (SCD). TE D Hose. - Bleeding Assess lab values and manage abnormalities. Nursing to teach precautions for anti-coagulation therapy . Wound to be assessed every shift. - Infection Clinical staff to assess and manage the signs and symptoms of infection including fever, redness, war mth, etc. - Urinary Tract Infection - Falls Patient will be evaluated for Fall Precautions and will be placed on Fall Precautions as indicated pe r protocol. - Skin Breakdown Nursing will assess skin daily using assessment tool and will place on Skin Breakdown Precautions as indicated per protocol. - Pain Clinical staff may employ non-medication methods such as massage, distraction, decrease stimulus, etc . as needed. Clinical staff will assess patient's pain level every shift per protocol to assess and e nsure pain management effectiveness. Medications will be given and the pain level re-assessed. PRELIMINARY PLAN OF CARE: - Physical Therapy Patient needs Physical Therapy for a daily minimum of 1.5 hours at least 5 out of 7 days, to improve: Mobility, Strengthening, Transfers, Stretching, ROM, Endurance, Ability to manage stairs, Gait, and Balance. - Rehabilitation Nursing Patient requires 24x7 Rehabilitation Nursing for: Pain Issues, Identifying and preventing risk factor s, Monitoring and reporting current medical conditions, Assisting with ambulation and transfer, Yovana ting with all ADL-s, Teaching patients about disease process and medications, Family teaching, Provid ing safe environment, Bowel and Bladder Issues, Skin Integrity, and Medication Management. Patient needs Photographer Motion Picture and/or Case Management for: Discharge Planning, Arranging Home Equipmen t or Services, and Family Interventions. - Dietary and Nutrition Services Patient needs Dietary and Nutrition Services for: Adequate Nutrition, Nutritional Supplements, and Nu tritional Education. - Occupational Therapy Patient needs Occupational Therapy for a daily minimum of 1.5 hours at least 5 out of 7 days, to impr ove Activities of Daily Living, including: Eating, Grooming, Bathing, Dressing, Toileting, Toilet Tra nsfers, Community Reintegration, Higher functional activities, Adaptive Equipment, Splinting, Househo ld Tasks, and Other activities as determined. POTENTIAL FUNCTIONAL GOALS FOR PATIENT TO ACHIEVE BY DISCHARGE: - Safety Precaution Patient will remain free from falls or injury at time of discharge. - Bed Mobility Patient will perform bed mobility at 4-Nelson level of assistance. - Transfers Patient will complete transfers from bed to chair at 4-Nelson level of assistance. - Mobility Patient will ambulate 150 ft with 4-Nelson level of assistance with RW. PATIENT REHAB POTENTIAL Expected level of measurable improvement will be of a practical value to patient's functional capacit y or adaptations to impairments Has a viable Discharge Plan Medically appropriate; condition is sufficiently stable to participate in intensive rehab program Patient is able and expected to receive 3 hours of individualized therapy daily on at least 5 of ever y 7 days Patient's prognosis for significant practical improvement within a reasonable period of time appears Good DISCHARGE PLAN: - Estimated Length of Stay (days) 14. - Consensus on plan Discharge plan has been discussed with primary caregiver. Patient/Family is in agreement with the jeremy n. Primary caregiver is in agreement with the plan. - Patient/Family Goals Return home with assistance. - Planned Living Setting Upon Discharge Home, to live with Family/Relatives. CONCLUSION ON REHABILITATION NECESSITY: I have evaluated patient's pre-admission functional status and, comparing it to the patient's post-ad mission functional status now, I conclude that the pre-admission assessment was accurate. Patient's c ondition on admission supports the medical necessity of admission to [facility]. It is safe to proceed with patient's therapy program. SIGNATURE PANEL: (CDT)
--- NOTE | 2018-07-03 14:14 | FAST ---
ENCOUNTER DATE AND TIME: 07/03/2018 08:00 (CDT) NAME FRANCE BAUMANN DATE OF : 1945 DATE OF ADMISSION: 07/02/2018 14:34 (CDT) PHONE: AGE: 73 SSN# [id number] GENDER: Female ENCOUNTER PHYSICIAN: Dr. Luke Major M.D. ADMISSION DIAGNOSIS: - Orthopaedic Disorders 08 - Unilateral Hip Fracture (08.11) Left Femoral Neck Fracture. EATING: Activity did not occur on this shift EATING - SCORE: 0-UNK GROOMING: Activity did not occur on this shift GROOMING - SCORE: 0-UNK BATHING: Activity did not occur on this shift BATHING - SCORE: 0-UNK DRESSING - UPPER BODY: Activity did not occur on this shift Patient is not dressing in public clothing ARTICLES SCORE Total number of steps: 0 DRESSING - UPPER BODY - SCORE: 0-UNK DRESSING - LOWER BODY: Activity did not occur on this shift Patient is not dressing in public clothing ARTICLES SCORE Total number of steps: 0 DRESSING - LOWER BODY - SCORE: 0-UNK TOILETING: Activity did not occur on this shift TOILETING - SCORE: 0-UNK BLADDER MANAGEMENT: Activity did not occur on this shift BLADDER MANAGEMENT - SCORE: 7-IND BOWEL MANAGEMENT: Activity did not occur on this shift BOWEL MANAGEMENT - SCORE: 7-IND TRANSFERS: BED, CHAIR, WHEELCHAIR: TRANSFERS: BED, CHAIR, WHEELCHAIR - STEP 1: Does the patient require assistance with bed, chair, or wheelchair transfers? Yes. TRANSFERS: BED, CHAIR, WHEELCHAIR - STEP 2: Does the patient require the assistance of a helper? Yes. TRANSFERS: BED, CHAIR, WHEELCHAIR - STEP 3: How much assistance does the patient require from the helper? Lifting of the patient TRANSFERS: BED, CHAIR, WHEELCHAIR - STEP 4: Does the helper lift the patient ONLY up? ONLY down? Up AND Down? ONLY up. TRANSFERS: BED, CHAIR, WHEELCHAIR - SCORE: 3-MOD TRANSFERS: TOILET: Activity did not occur on this shift TRANSFERS: TOILET - SCORE: 0-UNK TRANSFERS: SHOWER: Activity did not occur on this shift TRANSFERS: SHOWER - SCORE: 0-UNK TRANSFERS: TUB: Activity did not occur on this shift TRANSFERS: TUB - SCORE: 0-UNK LOCOMOTION: WALK: Patient walks less than 50 feet LOCOMOTION: WALK - SCORE: 1-DEP LOCOMOTION: WHEELCHAIR: LOCOMOTION: WHEELCHAIR - STEP 1: Does the patient need help to go 150 feet in a wheelchair? Yes. LOCOMOTION: WHEELCHAIR - STEP 2: How much assistance does the patient need from the helper? Only supervision, cuing, or coaxing LOCOMOTION: WHEELCHAIR - SCORE: 5-SUP LOCOMOTION: STAIRS: Activity did not occur on this shift LOCOMOTION: STAIRS - SCORE: 0-UNK COMPREHENSION: COMPREHENSION - SCORE: 0-UNK EXPRESSION EXPRESSION - SCORE: 0-UNK SOCIAL INTERACTION: SOCIAL INTERACTION - SCORE: 0-UNK PROBLEM SOLVING: PROBLEM SOLVING - SCORE: 0-UNK MEMORY: MEMORY - SCORE: 0-UNK SIGNATURE PANEL: The following modified sections: Transfers: Bed, Chair, Wheelchair - Score, Transfers: Toilet - Score , Locomotion: Walk - Score, Locomotion: Wheelchair - Score, Locomotion: Stairs - Score were [electron ically] signed by Josh Cortes PT on TueJul 03 2018 14:13:00 [facility]-0500 (Central Daylight Time)
--- NOTE | 2018-07-03 15:27 | FAST ---
ENCOUNTER DATE AND TIME: 07/03/2018 08:00 (CDT) NAME FRANCE BAUMANN DATE OF : 1945 DATE OF ADMISSION: 07/02/2018 14:34 (CDT) PHONE: AGE: 73 SSN# [id number] GENDER: Female ENCOUNTER PHYSICIAN: Dr. Luke Major M.D. ADMISSION DIAGNOSIS: - Orthopaedic Disorders 08 - Unilateral Hip Fracture (08.11) Left Femoral Neck Fracture. EATING: Activity did not occur on this shift EATING - SCORE: 0-UNK GROOMING: Comb/brush hair Wash, rinse, and dry face Wash, rinse, and dry hands GROOMING - STEP 1: Does the patient require assistance when grooming? Yes. GROOMING - STEP 2: Does the patient require the assistance of a helper? Yes. GROOMING - STEP 3: How much assistance does the patient require from the helper? Only prior equipment preparation/set up from the helper GROOMING - SCORE: 5-SUP BATHING: Abdomen Buttocks Chest Left arm Left lower leg and foot Left upper leg Perineal area Right arm Right lower leg and foot Right upper leg BATHING - STEP 1: Does the patient require assistance when bathing? Yes. BATHING - STEP 2: Does the patient require the assistance of a helper? Yes. BATHING - STEP 3: How much assistance does the patient require from the helper? More than just incidental help BATHING - STEP 4: What percent of the body parts did the patient bathe WITHOUT the helper? Half or more of the body par ts BATHING - SCORE: 3-MOD DRESSING - UPPER BODY: T-shirt/pullover shirt (four steps) ARTICLES SCORE Total number of steps: 4 DRESSING - UPPER BODY - STEP 1: Does the patient require help when dressing above the waist? Yes. DRESSING - UPPER BODY - STEP 2: Does the patient require the assistance of a helper? Yes. DRESSING - UPPER BODY - STEP 3: Does the helper touch the patient while dressing? No. DRESSING - UPPER BODY - SCORE: 5-SUP DRESSING - LOWER BODY: Elastic waist pants (three steps) Sock - Left foot (one step) Sock - Right foot (one step) Underwear (three steps) ARTICLES SCORE Total number of steps: 8 DRESSING - LOWER BODY - STEP 1: Does the patient require help when dressing below the waist? Yes. DRESSING - LOWER BODY - STEP 2: Does the patient require the assistance of a helper? Yes. DRESSING - LOWER BODY - STEP 3: Does the helper touch the patient while dressing? Yes. DRESSING - LOWER BODY - STEP 4: How many of the total steps does the patient complete on his/her own? 5 DRESSING - LOWER BODY - SCORE: 3-MOD TOILETING: TOILETING - STEP 1: Does the patient require assistance with toileting? Yes. TOILETING - STEP 2: Does the patient require the assistance of a helper? Yes. TOILETING - STEP 3: How much assistance does the patient require from the helper? Hands-on assistance from the helper TOILETING - STEP 4: Of the 3 tasks: 1) Adjusting clothing prior to use, 2) Cleansing of perineal area, 3) Adjusting clot feroz after use; How many tasks does the patient perform WITHOUT assistance of the helper? Three tasks with steadying assistance from the helper TOILETING - SCORE: 4-MIN BLADDER MANAGEMENT: Activity did not occur on this shift BLADDER MANAGEMENT - SCORE: 7-IND BOWEL MANAGEMENT: Activity did not occur on this shift BOWEL MANAGEMENT - SCORE: 7-IND TRANSFERS: BED, CHAIR, WHEELCHAIR: TRANSFERS: BED, CHAIR, WHEELCHAIR - STEP 1: Does the patient require assistance with bed, chair, or wheelchair transfers? Yes. TRANSFERS: BED, CHAIR, WHEELCHAIR - STEP 2: Does the patient require the assistance of a helper? Yes. TRANSFERS: BED, CHAIR, WHEELCHAIR - STEP 3: How much assistance does the patient require from the helper? Lifting of the legs TRANSFERS: BED, CHAIR, WHEELCHAIR - STEP 4: How many legs does the patient require the helper to lift? one leg TRANSFERS: BED, CHAIR, WHEELCHAIR - SCORE: 4-MIN TRANSFERS: TOILET: TRANSFERS: TOILET - STEP 1: Does the patient require assistance with toilet transfers? Yes. TRANSFERS: TOILET - STEP 2: Does the patient require the assistance of a helper? Yes. TRANSFERS: TOILET - STEP 3: How much assistance does the patient require from the helper? Patient performs half or more of the tr ansferring tasks TRANSFERS: TOILET - STEP 4: Does the patient need only incidental help such as contact guard or steadying during toilet transfer? Yes. TRANSFERS: TOILET - SCORE: 4-MIN TRANSFERS: SHOWER: TRANSFERS: SHOWER - STEP 1: Does the patient require assistance with shower transfers? Yes. TRANSFERS: SHOWER - STEP 2: Does the patient require the assistance of a helper? Yes. TRANSFERS: SHOWER - STEP 3: How much assistance does the patient require from the helper? Only incidental help such as contact gu arding or steadying during shower transfers, or help to lift one leg into the shower TRANSFERS: SHOWER - SCORE: 4-MIN TRANSFERS: TUB: Activity did not occur on this shift TRANSFERS: TUB - SCORE: 0-UNK LOCOMOTION: WALK: Activity did not occur on this shift LOCOMOTION: WALK - SCORE: 0-UNK LOCOMOTION: WHEELCHAIR: Activity did not occur on this shift LOCOMOTION: WHEELCHAIR - SCORE: 0-UNK LOCOMOTION: STAIRS: Activity did not occur on this shift LOCOMOTION: STAIRS - SCORE: 0-UNK COMPREHENSION: COMPREHENSION: TYPE: Both COMPREHENSION - STEP 1: Does the patient require help to understand complex and abstract ideas (such as current events, finan shea, discharge planning, medical issues, relationships, etc)? No. COMPREHENSION - STEP 2: Does the patient need extra time, require an assistive device (such as glasses for visual comprehensi on or a hearing aid for auditory comprehension) or does s/he have mild difficulty understanding compl ex and abstract information? Yes. COMPREHENSION - SCORE: 6-TINO EXPRESSION EXPRESSION: TYPE: Both EXPRESSION - STEP 1: Does the patient require help expressing complex and abstract ideas (such as current events, finances , discharge planning, medical issues, relationships, etc)? No. EXPRESSION - STEP 2: Does the patient need extra time, require an assistive device (such as augmentive communication syste m or a communication board), OR does s/he have mild difficulty expressing complex and abstract ideas (including mild dysarthria or mild word-find problems)? Yes. EXPRESSION - SCORE: 6-TINO SOCIAL INTERACTION: SOCIAL INTERACTION - STEP 1: Does the patient require a helper to interact with others in social and therapeutic situations? No. SOCIAL INTERACTION - STEP 2: Does the patient need extra time in social situations, OR does s/he interact with staff, other patien ts, and family members ONLY in structured environments, OR does s/he require medication for social in teraction? Yes, patient requires medication for social interaction SOCIAL INTERACTION - SCORE: 6-TINO PROBLEM SOLVING: PROBLEM SOLVING - STEP 1: Does the patient need help to solve complex problems such as managing a checking account or confronti ng interpersonal problems? Yes. PROBLEM SOLVING - STEP 2: Does the patient solve basic routine problems half or more of the time? Yes. PROBLEM SOLVING - STEP 3: How often does the patient need help to solve basic routine problems? Less than 10% of the time PROBLEM SOLVING - SCORE: 5-SUP MEMORY: MEMORY - STEP 1: Does the patient need help to remember frequently encountered people, daily routines, and executing r equests? No. MEMORY - STEP 2: Does the patient have slight difficulty recognizing frequently encountered people, daily routines, or executing requests without the need for repetition or using self-initiated or environmental cues to remember? Yes. MEMORY - SCORE: 6-TINO SIGNATURE PANEL: The following modified sections: Eating - Score, Grooming - Score, Bathing - Score, Dressing - Upper Body - Score, Dressing - Lower Body - Score, Toileting - Score, Transfers: Bed, Chair, Wheelchair - S core, Transfers: Toilet - Score, Transfers: Shower - Score, Transfers: Tub - Score, Comprehension - S core, Expression - Score, Social Interaction - Score, Problem Solving - Score, Memory - Score were [e lectronically] signed by Alla Gusman OT on TueJul 03 2018 15:26:11 T-0500 ([facility] Time)
[2018-07-03] MEDS: RIVAROXABAN 10 MG TABLET PO SCH (17:33)
[2018-07-03] MEDS: MAGNESIUM OXIDE 400 MG TAB PO SCH (20:09)
[2018-07-03] MEDS: PARoxetine HCl 10 MG TAB PO SCH (20:09)
[2018-07-03] MEDS: ATORVASTATIN 10 MG TAB PO SCH (20:09)
--- NOTE | 2018-07-03 21:16 | P.PN ---
Subjective Date of Service: 07/03/18 Chief Complaint: FIRST DAY IN REHAB. HAD THE BEST SLEEP. Subjective: Improving (SHE IS FEELING GOOD.) Review of Systems 10-point ROS is otherwise unremarkable Physical Examination - Vital Signs Temperature: 97.6 F Blood Pressure: 110/44 Pulse: 69 Respirations: 16 Pulse Ox (%): 100 - Physical Exam General: Oriented x3 HEENT: Atraumatic, PERRLA, EOMI Neck: Supple, JVD not distended Respiratory: Clear to auscultation bilaterally, Normal air movement Cardiovascular: Regular rate/rhythm, Normal S1 S2 Gastrointestinal: Normal bowel sounds, No tenderness Musculoskeletal: No tenderness Integumentary: No rashes Neurological: Normal speech, Normal tone, Normal affect Lymphatics: No axilla or inguinal lymphadenopathy - Studies Laboratory Data (last 24 hrs) 07/03/18 05:50: Sodium 143, Potassium 3.0 L, BUN 13, Creatinine 0.50 L, Glucose 111 H, Magnesium 2.1 07/03/18 05:50: WBC 8.3 D, Hgb 11.3 L, Hct 34.0 L, Plt Count 315 D Medications List Reviewed: Yes Assessment And Plan - Current Problems (Diagnosis) (1) A-fib Current Visit: No Status: Acute Plan: STABLE ON MEDS SOTALOL AND XARELTO Qualifiers: Atrial fibrillation type: chronic Qualified Code(s): I48.2 - Chronic atrial fibrillation (2) Fracture of femoral neck, left, closed Onset Date: 06/26/18 Current Visit: No Status: Acute Plan: RESUME PT ALREADY HAS BEEN GIVEN RECLAST FOR BONES. Qualifiers:
--- NOTE | 2018-07-04 02:07 | FAST ---
SHIFT START DATE/TIME: 07/03/2018 19:00 (CDT) SHIFT END DATE/TIME: 07/04/2018 07:00 (CDT) NAME FRANCE BAUMANN DATE OF : 1945 DATE OF ADMISSION: 07/02/2018 14:34 (CDT) PHONE: AGE: 73 N# [id number] GENDER: Female ENCOUNTER PHYSICIAN: Dr. Luke Major M.D. ADMISSION DIAGNOSIS: - Orthopaedic Disorders 08 - Unilateral Hip Fracture (08.11) Left Femoral Neck Fracture. EATING: Activity did not occur on this shift EATING - SCORE: 0-UNK GROOMING: Oral care Wash, rinse, and dry face Wash, rinse, and dry hands GROOMING - STEP 1: Does the patient require assistance when grooming? Yes. GROOMING - STEP 2: Does the patient require the assistance of a helper? Yes. GROOMING - STEP 3: How much assistance does the patient require from the helper? Only prior equipment preparation/set up from the helper GROOMING - SCORE: 5-SUP BATHING: Activity did not occur on this shift BATHING - SCORE: 0-UNK DRESSING - UPPER BODY: Patient is not dressing in public clothing ARTICLES SCORE Total number of steps: 0 DRESSING - UPPER BODY - SCORE: 0-UNK DRESSING - LOWER BODY: Patient is not dressing in public clothing ARTICLES SCORE Total number of steps: 0 DRESSING - LOWER BODY - SCORE: 0-UNK TOILETING: TOILETING - STEP 1: Does the patient require assistance with toileting? Yes. TOILETING - STEP 2: Does the patient require the assistance of a helper? Yes. TOILETING - STEP 3: How much assistance does the patient require from the helper? Hands-on assistance from the helper TOILETING - STEP 4: Of the 3 tasks: 1) Adjusting clothing prior to use, 2) Cleansing of perineal area, 3) Adjusting clot feroz after use; How many tasks does the patient perform WITHOUT assistance of the helper? No tasks; jose nuñez performs all three tasks TOILETING - SCORE: 1-DEP BLADDER MANAGEMENT: BLADDER MANAGEMENT - STEP 1: Does the patient control the bladder completely and intentionally without equipment or devices or med ications, and is always continent? No. BLADDER MANAGEMENT - STEP 2: Does the patient require the assistance of a helper? Yes. BLADDER MANAGEMENT - STEP 3: How much assistance does the patient require from the helper? Only set-up of equipment - such as plac ing it within reach of the patient or emptying a device - to maintain either satisfactory voiding pat tern or managing an external device, such as an absorbent pad, ileal device, or catheter BLADDER MANAGEMENT - SCORE: 5-SUP BOWEL MANAGEMENT: Activity did not occur on this shift BOWEL MANAGEMENT - SCORE: 7-IND TRANSFERS: BED, CHAIR, WHEELCHAIR: TRANSFERS: BED, CHAIR, WHEELCHAIR - STEP 1: Does the patient require assistance with bed, chair, or wheelchair transfers? Yes. TRANSFERS: BED, CHAIR, WHEELCHAIR - STEP 2: Does the patient require the assistance of a helper? Yes. TRANSFERS: BED, CHAIR, WHEELCHAIR - STEP 3: How much assistance does the patient require from the helper? Lifting of the legs TRANSFERS: BED, CHAIR, WHEELCHAIR - STEP 4: How many legs does the patient require the helper to lift? both legs TRANSFERS: BED, CHAIR, WHEELCHAIR - SCORE: 3-MOD TRANSFERS: TOILET: TRANSFERS: TOILET - STEP 1: Does the patient require assistance with toilet transfers? Yes. TRANSFERS: TOILET - STEP 2: Does the patient require the assistance of a helper? Yes. TRANSFERS: TOILET - STEP 3: How much assistance does the patient require from the helper? Patient performs half or more of the tr ansferring tasks TRANSFERS: TOILET - STEP 4: Does the patient need only incidental help such as contact guard or steadying during toilet transfer? No. Patient needs more than incidental help TRANSFERS: TOILET - SCORE: 3-MOD TRANSFERS: SHOWER: Activity did not occur on this shift TRANSFERS: SHOWER - SCORE: 0-UNK TRANSFERS: TUB: Activity did not occur on this shift TRANSFERS: TUB - SCORE: 0-UNK LOCOMOTION: WALK: Activity did not occur on this shift LOCOMOTION: WALK - SCORE: 0-UNK LOCOMOTION: WHEELCHAIR: Activity did not occur on this shift LOCOMOTION: WHEELCHAIR - SCORE: 0-UNK COMPREHENSION: COMPREHENSION: TYPE: Both COMPREHENSION - STEP 1: Does the patient require help to understand complex and abstract ideas (such as current events, finan shea, discharge planning, medical issues, relationships, etc)? No. COMPREHENSION - STEP 2: Does the patient need extra time, require an assistive device (such as glasses for visual comprehensi on or a hearing aid for auditory comprehension) or does s/he have mild difficulty understanding compl ex and abstract information? Yes. COMPREHENSION - SCORE: 6-TINO EXPRESSION EXPRESSION: TYPE: Both EXPRESSION - STEP 1: Does the patient require help expressing complex and abstract ideas (such as current events, finances , discharge planning, medical issues, relationships, etc)? No. EXPRESSION - STEP 2: Does the patient need extra time, require an assistive device (such as augmentive communication syste m or a communication board), OR does s/he have mild difficulty expressing complex and abstract ideas (including mild dysarthria or mild word-find problems)? No. EXPRESSION - SCORE: 7-IND SOCIAL INTERACTION: SOCIAL INTERACTION - STEP 1: Does the patient require a helper to interact with others in social and therapeutic situations? No. SOCIAL INTERACTION - STEP 2: Does the patient need extra time in social situations, OR does s/he interact with staff, other patien ts, and family members ONLY in structured environments, OR does s/he require medication for social in teraction? Yes, patient needs extra time SOCIAL INTERACTION - SCORE: 6-TINO PROBLEM SOLVING: PROBLEM SOLVING - STEP 1: Does the patient need help to solve complex problems such as managing a checking account or confronti ng interpersonal problems? No. PROBLEM SOLVING - STEP 2: Does the patient require extra time to make decisions or solve problems, OR does s/he have slight dif ficulty reading, initiating, or self-correcting in unfamiliar situations? Yes, patient needs extra ti me. PROBLEM SOLVING - SCORE: 6-TINO MEMORY: MEMORY - STEP 1: Does the patient need help to remember frequently encountered people, daily routines, and executing r equests? No. MEMORY - STEP 2: Does the patient have slight difficulty recognizing frequently encountered people, daily routines, or executing requests without the need for repetition or using self-initiated or environmental cues to remember? Yes. MEMORY - SCORE: 6-TINO
[2018-07-04] MEDS: SOTALOL HCL 80 MG TAB PO SCH ×2 (05:05→17:10)
[2018-07-04] MEDS: BACLOFEN 10 MG TAB PO SCH (07:18)
[2018-07-04] MEDS: MAGNESIUM OXIDE 400 MG TAB PO SCH ×2 (08:00→19:29)
[2018-07-04] MEDS ORDERED: CALCIUM CARBONATE 500 MG TAB PO SCH (08:00)
[2018-07-04] MEDS: ASCORBIC ACID 500 MG TABLET PO SCH (08:24)
[2018-07-04] MEDS: VITAMIN D 5,000 UNIT CAP PO SCH ×2 (08:25)
[2018-07-04] MEDS: GABAPENTIN 300 MG CAP PO SCH ×5 (08:26→19:29)
[2018-07-04] MEDS: ASPIRIN EC 81 MG TAB PO SCH (08:26)
[2018-07-04] MEDS: PANTOPRAZOLE 40MG TABLET PO SCH (08:26)
[2018-07-04] MEDS: SPIRONOLACTONE 25 MG TABLET PO SCH (08:27)
--- NOTE | 2018-07-04 10:04 | FAST ---
SHIFT START DATE/TIME: 07/04/2018 07:00 (CDT) SHIFT END DATE/TIME: 07/04/2018 19:00 (CDT) NAME FRANCE BAUMANN DATE OF : 1945 DATE OF ADMISSION: 07/02/2018 14:34 (CDT) PHONE: AGE: 73 N# [id number] GENDER: Female ENCOUNTER PHYSICIAN: Dr. Luke Major M.D. ADMISSION DIAGNOSIS: - Orthopaedic Disorders 08 - Unilateral Hip Fracture (08.11) Left Femoral Neck Fracture. EATING: EATING - STEP 1: Does the patient require assistance when eating? Yes. EATING - STEP 2: Does the patient require the assistance of a helper? Yes. EATING - STEP 3: Does the patient perform half or more of the eating tasks? Yes. EATING - STEP 4: Does the patient need only supervision, cuing, coaxing OR help to apply an orthosis OR help to cut fo od, open containers, pour liquids, or butter bread? Yes. EATING - SCORE: 5-SUP GROOMING: Comb/brush hair Oral care Wash, rinse, and dry face Wash, rinse, and dry hands GROOMING - STEP 1: Does the patient require assistance when grooming? Yes. GROOMING - STEP 2: Does the patient require the assistance of a helper? No. The patient only requires an assistive devic e, OR takes more than reasonable time to groom, OR there is a concern for safety as the patient groom s GROOMING - SCORE: 6-TINO BATHING: Activity did not occur on this shift BATHING - SCORE: 0-UNK DRESSING - UPPER BODY: T-shirt/pullover shirt (four steps) ARTICLES SCORE Total number of steps: 4 DRESSING - UPPER BODY - STEP 1: Does the patient require help when dressing above the waist? Yes. DRESSING - UPPER BODY - STEP 2: Does the patient require the assistance of a helper? Yes. DRESSING - UPPER BODY - STEP 3: Does the helper touch the patient while dressing? Yes. DRESSING - UPPER BODY - STEP 4: How many of the total steps does the patient complete on his/her own? 4 DRESSING - UPPER BODY - SCORE: 4-MIN DRESSING - LOWER BODY: ARTICLES SCORE Total number of steps: 6 DRESSING - LOWER BODY - STEP 1: Does the patient require help when dressing below the waist? Yes. DRESSING - LOWER BODY - STEP 2: Does the patient require the assistance of a helper? Yes. DRESSING - LOWER BODY - STEP 3: Does the helper touch the patient while dressing? Yes. DRESSING - LOWER BODY - STEP 4: How many of the total steps does the patient complete on his/her own? 2 DRESSING - LOWER BODY - STEP 5: Does patient require total assistance for dressing below the waist such as the helper holding clothin g and performing basically all the activities? No. DRESSING - LOWER BODY - SCORE: 2-MAX TOILETING: TOILETING - STEP 1: Does the patient require assistance with toileting? Yes. TOILETING - STEP 2: Does the patient require the assistance of a helper? Yes. TOILETING - STEP 3: How much assistance does the patient require from the helper? Hands-on assistance from the helper TOILETING - STEP 4: Of the 3 tasks: 1) Adjusting clothing prior to use, 2) Cleansing of perineal area, 3) Adjusting clot feroz after use; How many tasks does the patient perform WITHOUT assistance of the helper? Two tasks TOILETING - SCORE: 3-MOD BLADDER MANAGEMENT: BLADDER MANAGEMENT - STEP 1: Does the patient control the bladder completely and intentionally without equipment or devices or med ications, and is always continent? No. BLADDER MANAGEMENT - STEP 2: Does the patient require the assistance of a helper? No, patient requires and independently uses an a ssistive device, such as a urinal, bedpan, bedside commode, catheter, absorbent pad, or collecting de vice BLADDER MANAGEMENT - SCORE: 6-TINO BOWEL MANAGEMENT: BOWEL MANAGEMENT - STEP 1: Does the patient control bowels completely and intentionally without equipment devices or medications AND is always continent? Yes. BOWEL MANAGEMENT - SCORE: 7-IND BOWEL MANAGEMENT - FREQUENCY OF ACCIDENTS: BOWEL MANAGEMENT(FA) - STEP 1: How many accidents has the patient had during the current shift? 1 TRANSFERS: BED, CHAIR, WHEELCHAIR: TRANSFERS: BED, CHAIR, WHEELCHAIR - STEP 1: Does the patient require assistance with bed, chair, or wheelchair transfers? Yes. TRANSFERS: BED, CHAIR, WHEELCHAIR - STEP 2: Does the patient require the assistance of a helper? Yes. TRANSFERS: BED, CHAIR, WHEELCHAIR - STEP 3: How much assistance does the patient require from the helper? Lifting of the patient TRANSFERS: BED, CHAIR, WHEELCHAIR - STEP 4: Does the helper lift the patient ONLY up? ONLY down? Up AND Down? ONLY up. TRANSFERS: BED, CHAIR, WHEELCHAIR - SCORE: 3-MOD TRANSFERS: TOILET: TRANSFERS: TOILET - STEP 1: Does the patient require assistance with toilet transfers? Yes. TRANSFERS: TOILET - STEP 2: Does the patient require the assistance of a helper? Yes. TRANSFERS: TOILET - STEP 3: How much assistance does the patient require from the helper? Patient performs half or more of the tr ansferring tasks TRANSFERS: TOILET - STEP 4: Does the patient need only incidental help such as contact guard or steadying during toilet transfer? No. Patient needs more than incidental help TRANSFERS: TOILET - SCORE: 3-MOD TRANSFERS: SHOWER: Activity did not occur on this shift TRANSFERS: SHOWER - SCORE: 0-UNK TRANSFERS: TUB: Activity did not occur on this shift TRANSFERS: TUB - SCORE: 0-UNK LOCOMOTION: WALK: Activity did not occur on this shift LOCOMOTION: WALK - SCORE: 0-UNK LOCOMOTION: WHEELCHAIR: Activity did not occur on this shift LOCOMOTION: WHEELCHAIR - SCORE: 0-UNK COMPREHENSION: COMPREHENSION: TYPE: Both COMPREHENSION - STEP 1: Does the patient require help to understand complex and abstract ideas (such as current events, finan shea, discharge planning, medical issues, relationships, etc)? No. COMPREHENSION - STEP 2: Does the patient need extra time, require an assistive device (such as glasses for visual comprehensi on or a hearing aid for auditory comprehension) or does s/he have mild difficulty understanding compl ex and abstract information? Yes. COMPREHENSION - SCORE: 6-TINO EXPRESSION EXPRESSION: TYPE: Both EXPRESSION - STEP 1: Does the patient require help expressing complex and abstract ideas (such as current events, finances , discharge planning, medical issues, relationships, etc)? Yes. EXPRESSION - STEP 2: Does the patient require help to express basic necessities or ideas (such as hunger, thirst, sleep, s afety, daily schedule, room location, or discomfort) half or more of the time? No. EXPRESSION - STEP 3: How often does the patient need help to express directions and conversation about basic needs? Less t alfonso 10% of the time EXPRESSION - SCORE: 5-SUP SOCIAL INTERACTION: SOCIAL INTERACTION - STEP 1: Does the patient require a helper to interact with others in social and therapeutic situations? No. SOCIAL INTERACTION - STEP 2: Does the patient need extra time in social situations, OR does s/he interact with staff, other patien ts, and family members ONLY in structured environments, OR does s/he require medication for social in teraction? Yes, patient needs extra time SOCIAL INTERACTION - SCORE: 6-TINO PROBLEM SOLVING: PROBLEM SOLVING - STEP 1: Does the patient need help to solve complex problems such as managing a checking account or confronti ng interpersonal problems? No. PROBLEM SOLVING - STEP 2: Does the patient require extra time to make decisions or solve problems, OR does s/he have slight dif ficulty reading, initiating, or self-correcting in unfamiliar situations? Yes, patient needs extra ti me. PROBLEM SOLVING - SCORE: 6-TINO MEMORY: MEMORY - STEP 1: Does the patient need help to remember frequently encountered people, daily routines, and executing r equests? No. MEMORY - STEP 2: Does the patient have slight difficulty recognizing frequently encountered people, daily routines, or executing requests without the need for repetition or using self-initiated or environmental cues to remember? Yes. MEMORY - SCORE: 6-TINO SIGNATURE PANEL: The following modified sections: Eating - Score, Grooming - Score, Bathing - Score, Dressing - Upper Body - Score, Dressing - Lower Body - Score, Toileting - Score, Bladder Management - Score, Bowel Man agement - Score, Transfers: Bed, Chair, Wheelchair - Score, Transfers: Toilet - Score, Transfers: Shonna wer - Score, Transfers: Tub - Score, Locomotion: Walk - Score, Locomotion: Wheelchair - Score, Compre hension - Score, Expression - Score, Social Interaction - Score, Problem Solving - Score, Memory - Sc ore were [electronically] signed by Aayush Reeves on TueJul 04 2018 10:02:59 GMT-0500 (Central Daylight Time)
[2018-07-04] MEDS ORDERED: POTASSIUM CL SA 10 MEQ TAB PO ONE (14:00)
[2018-07-04] MEDS: ACETAMINOPHEN 500 MG TAB PO PRN ×2 (14:02→22:08)
[2018-07-04 14:22] VITALS: BMI 25.5
[2018-07-04] MEDS: RIVAROXABAN 20 MG TABLET PO SCH (16:49)
--- NOTE | 2018-07-04 17:33 | R.PN ---
ENCOUNTER DATE AND TIME: 07/04/2018 17:30 (CDT) NAME FRANCE BAUMANN DATE OF : 1945 DATE OF ADMISSION: 07/02/2018 14:34 (CDT) Left Femoral Neck FractureCHIEF COMPLAINT: Left hip fracture SUBJECTIVE: Pt denied any depression. Pt denied any Shortness of Breath. Propelled wheelchair 250' with standby assistance. VITAL SIGNS Temperature: 97.9 F SBP/DBP: 118/52 Pulse: 61 Resp: 16 MEDICATION ALLERGIES: Amoxicillin Codeine Ibuprofen Etodolac Annaprox ENVIRONMENTAL ALLERGIES: None Known - Substance Allergies None Known - Other Allergies None Known NURSING: - Shower allowing shower - Skin care per protocol PRECAUTIONS: - Anterior Hip Precaution No abduction No active extension No adduction across midline No external rotation No hip flexion >90 degrees No internal rotation - Posterior Hip Precaution No adduction across midline No external rotation No hip flexion >90 degrees No internal rotation No wheel chair propulsion - Weight Bearing Precaution TTWB left LE ACTIVITIES OOB only with supervision THERAPIES: - Occupational Therapy Evaluate and Treat. - Physical Therapy Evaluate and Treat. PHYSICAL EXAM - Gen Alert and awake Lying in bed No apparent distress Oriented to: person, time, and place - Skin left hip incision intact No numbness - Eyes No discharge - ENMT No abnormalities - Neck No abnormalities - CVS RRR - Chest Clear - Abd +bowel sounds - GI Soft Deferred - No abnormalities - Ext Left hip surgical site has good hemostasis. - MSK 4+/5 weakness in left lower extremity - Neuro No abnormalities - Psych No abnormalities ASSESSMENT: Pt. is a 73 yo Right-handed white female.Her impairment category is Orthopaedic Disorders 08 - Unila teral Hip Fracture (08.11).Pre-morbidly, Pt. was independent/mod-I in Sphincter Control, Transfers Co ntrol, Communication, Social Cognition, Self-Care, and Locomotion; and she had good Sphincter Control .Currently, she has deficits of Safety Awareness, Transfers Control, Balance, Self-Care, Locomotion, and Endurance.Pt. is now referred to [facility] for acute in-patient rehabilit ation in order to maximize patient's functional independence in activities of daily living, strength, ROM, and mobility.- Rehab Goal Patient has realistic goal of being discharged at assistance level 6-Candy to reside at Home with Fam brian/Relatives. MDM/PLAN: - Physical Therapy Decreased range of motion - to improve, our physical therapists will perform initial evaluation of p t's status upon admission and devise an individualized program for increasing patient's Range of Willis on. Gait dysfunction - to improve, our physical therapists will perform initial evaluation of pt's statu s upon admission and devise an individualized program for Gait Training, and Wheel Chair mobility Inability to transfer - to improve, our physical therapists will perform initial evaluation of pt's status upon admission and devise an individualized program for Bed mobility Need for home safety evaluation - to improve, our physical therapists will perform initial evaluatio n of pt's status upon admission and devise an individualized program for Home Evaluation Need in caregiver upon discharge - to improve, our physical therapists will perform initial evaluati on of pt's status upon admission and devise an individualized program for Caregiver Training New precaution - to improve, our physical therapists will perform initial evaluation of pt's status upon admission and devise an individualized program for Patient precaution education Poor balance - to improve, our physical therapists will perform initial evaluation of pt's status up on admission and devise an individualized program for Balance Training Poor endurance - to improve, our physical therapists will perform initial evaluation of pt's status upon admission and devise an individualized program for Endurance Training Weakness - to improve, our physical therapists will perform initial evaluation of pt's status upon a dmission and devise an individualized program for Aquatic Therapy, Neuromuscular Reeducation, and Str engthening Achieving independence - to improve, our physical therapists will perform initial evaluation of pt's status upon admission and devise an individualized program for Community Reintegration Activities - Occupational Therapy ADL deficits - to improve, our occupation therapists will perform initial evaluation of pt's status upon admission and devise an individualized program for Bathing, Bed mobility, Community Reintegratio n, Cooking, Dressing, Eating, Fine Motor Skills, Grooming, Homemaking, Kitchen Mobility, Laundry, Pat ient Education, Safety Awareness, Splinting - Positioning, Transfers(Toilet, Tub, Shower), and Wheel Chair Management Need for care manager cna - to improve, our occupation therapists will perform initial evaluation of pt's status upon admission and devise an individualized program for Caregiver Training Weakness - to improve, our occupation therapists will perform initial evaluation of pt's status upon admission and devise an individualized program for Aquatic Therapy, Balance, Endurance, UE ROM, and UE strengthening - Anterior Hip Precaution No abduction No active extension No adduction across midline No external rotation No hip flexion >90 degrees No internal rotation - Diet - Liquid Texture Continue Regular - Tube Feed Continue N/A - Diet Type Continue Regular - Posterior Hip Precaution No adduction across midline No external rotation No hip flexion >90 degrees No internal rotation No wheel chair propulsion - Weight Bearing Precaution TTWB left LE - Skin care per protocol - Diet - Solid Texture Continue Regular - Shower allowing shower FUNCTIONAL STATUS: UPDATED AT WEEKLY TEAM CONFERENCE - Bladder Same accident frequency: 7-Ind - No accidents in the past 7 days - Bowel Same accident frequency: 7-Ind - No accidents in the past 7 days - Walking Same score based on distance walked: 1(<=50ft) - Wheelchair Same score based on distance traveled: 0(N/A) FUNCTIONAL STATUS: - Self-Care A. Eating sup B. Grooming Ind C. Bathing sup D. Dressing - Upper sup E. Dressing - Lower Nelson F. Toileting Nelson - Sphincter Control G: Bladder control Ind H: Bowel control Ind - Transfers Control I. Bed/Chair/Wheelchair modA J. Toilet modA K. Tub/Shower ADNO - Locomotion L. Walk/Wheelchair (C) modA L. Walk/Wheelchair (W) modA M. Stairs ADNO - Communication N. Comprehension (B) Ind O. Expression (B) Ind - Social Cognition P. Social Interaction Ind Q. Problem Solving Ind R. Memory Ind - Endurance Poor - Balance Poor - Safety Awareness Fair CURRENT FUNC. DEFICITS: Safety Awareness, Transfers Control, Balance, Self-Care, Locomotion, and Endurance SIGNATURE PANEL: (CDT)
--- NOTE | 2018-07-04 18:12 | P.PN ---
Subjective Date of Service: 07/04/18 Chief Complaint: FIRST DAY IN REHAB. HAD THE BEST SLEEP. DOING WELL. Physical Examination - Vital Signs Temperature: 97.9 F Blood Pressure: 118/52 Pulse: 61 Respirations: 16 Pulse Ox (%): 99 - Physical Exam General: Alert, In no apparent distress HEENT: Atraumatic, PERRLA, EOMI Neck: Supple, JVD not distended Respiratory: Clear to auscultation bilaterally, Normal air movement Cardiovascular: Regular rate/rhythm, Normal S1 S2 Gastrointestinal: Normal bowel sounds, No tenderness Musculoskeletal: No tenderness Integumentary: No rashes Neurological: Normal speech, Normal tone, Normal affect Lymphatics: No axilla or inguinal lymphadenopathy - Studies Medications List Reviewed: Yes Assessment And Plan - Current Problems (Diagnosis) (1) A-fib Current Visit: No Status: Acute Plan: STABLE ON MEDS SOTALOL AND XARELTO Qualifiers: Atrial fibrillation type: chronic Qualified Code(s): I48.2 - Chronic atrial fibrillation (2) Fracture of femoral neck, left, closed Onset Date: 06/26/18 Current Visit: No Status: Acute Plan: RESUME PT ALREADY HAS BEEN GIVEN RECLAST FOR BONES. RESIUME PT Qualifiers:
[2018-07-04] MEDS: PARoxetine HCl 10 MG TAB PO SCH (19:29)
[2018-07-04] MEDS: ATORVASTATIN 10 MG TAB PO SCH (19:29)
[2018-07-04] MEDS: CALCIUM CARBONATE 500 MG TAB PO SCH (19:30)
--- NOTE | 2018-07-05 02:45 | FAST ---
SHIFT START DATE/TIME: 07/04/2018 19:00 (CDT) SHIFT END DATE/TIME: 07/05/2018 07:00 (CDT) NAME FRANCE BAUMANN DATE OF : 1945 DATE OF ADMISSION: 07/02/2018 14:34 (CDT) PHONE: AGE: 73 SSN# [id number] GENDER: Female ENCOUNTER PHYSICIAN: Dr. Luke Major M.D. ADMISSION DIAGNOSIS: - Orthopaedic Disorders 08 - Unilateral Hip Fracture (08.11) Left Femoral Neck Fracture. EATING: Activity did not occur on this shift EATING - SCORE: 0-UNK GROOMING: Activity did not occur on this shift GROOMING - SCORE: 0-UNK BATHING: Activity did not occur on this shift BATHING - SCORE: 0-UNK DRESSING - UPPER BODY: Activity did not occur on this shift ARTICLES SCORE Total number of steps: 0 DRESSING - UPPER BODY - SCORE: 0-UNK DRESSING - LOWER BODY: Activity did not occur on this shift ARTICLES SCORE Total number of steps: 0 DRESSING - LOWER BODY - SCORE: 0-UNK TOILETING: TOILETING - STEP 1: Does the patient require assistance with toileting? Yes. TOILETING - STEP 2: Does the patient require the assistance of a helper? Yes. TOILETING - STEP 3: How much assistance does the patient require from the helper? Hands-on assistance from the helper TOILETING - STEP 4: Of the 3 tasks: 1) Adjusting clothing prior to use, 2) Cleansing of perineal area, 3) Adjusting clot feroz after use; How many tasks does the patient perform WITHOUT assistance of the helper? Two tasks TOILETING - SCORE: 3-MOD BLADDER MANAGEMENT: BLADDER MANAGEMENT - STEP 1: Does the patient control the bladder completely and intentionally without equipment or devices or med ications, and is always continent? No. BLADDER MANAGEMENT - STEP 2: Does the patient require the assistance of a helper? Yes. BLADDER MANAGEMENT - STEP 3: How much assistance does the patient require from the helper? Only supervision, stand-by, cuing, or c oaxing BLADDER MANAGEMENT - SCORE: 5-SUP BLADDER MANAGEMENT - FREQUENCY OF ACCIDENTS: BLADDER MANAGEMENT(FA) - STEP 1: How many accidents has the patient had during the current shift? 0 BOWEL MANAGEMENT: Activity did not occur on this shift BOWEL MANAGEMENT - SCORE: 7-IND BOWEL MANAGEMENT - FREQUENCY OF ACCIDENTS: BOWEL MANAGEMENT(FA) - STEP 1: How many accidents has the patient had during the current shift? 0 TRANSFERS: BED, CHAIR, WHEELCHAIR: TRANSFERS: BED, CHAIR, WHEELCHAIR - STEP 1: Does the patient require assistance with bed, chair, or wheelchair transfers? Yes. TRANSFERS: BED, CHAIR, WHEELCHAIR - STEP 2: Does the patient require the assistance of a helper? Yes. TRANSFERS: BED, CHAIR, WHEELCHAIR - STEP 3: How much assistance does the patient require from the helper? Lifting of the legs TRANSFERS: BED, CHAIR, WHEELCHAIR - STEP 4: How many legs does the patient require the helper to lift? both legs TRANSFERS: BED, CHAIR, WHEELCHAIR - SCORE: 3-MOD TRANSFERS: TOILET: TRANSFERS: TOILET - STEP 1: Does the patient require assistance with toilet transfers? Yes. TRANSFERS: TOILET - STEP 2: Does the patient require the assistance of a helper? Yes. TRANSFERS: TOILET - STEP 3: How much assistance does the patient require from the helper? Patient performs half or more of the tr ansferring tasks TRANSFERS: TOILET - STEP 4: Does the patient need only incidental help such as contact guard or steadying during toilet transfer? No. Patient needs more than incidental help TRANSFERS: TOILET - SCORE: 3-MOD TRANSFERS: SHOWER: Activity did not occur on this shift TRANSFERS: SHOWER - SCORE: 0-UNK TRANSFERS: TUB: Activity did not occur on this shift TRANSFERS: TUB - SCORE: 0-UNK LOCOMOTION: WALK: Activity did not occur on this shift LOCOMOTION: WALK - SCORE: 0-UNK LOCOMOTION: WHEELCHAIR: Activity did not occur on this shift LOCOMOTION: WHEELCHAIR - SCORE: 0-UNK COMPREHENSION: COMPREHENSION: TYPE: Both COMPREHENSION - STEP 1: Does the patient require help to understand complex and abstract ideas (such as current events, finan shea, discharge planning, medical issues, relationships, etc)? No. COMPREHENSION - STEP 2: Does the patient need extra time, require an assistive device (such as glasses for visual comprehensi on or a hearing aid for auditory comprehension) or does s/he have mild difficulty understanding compl ex and abstract information? Yes. COMPREHENSION - SCORE: 6-TINO EXPRESSION EXPRESSION: TYPE: Both EXPRESSION - STEP 1: Does the patient require help expressing complex and abstract ideas (such as current events, finances , discharge planning, medical issues, relationships, etc)? Yes. EXPRESSION - STEP 2: Does the patient require help to express basic necessities or ideas (such as hunger, thirst, sleep, s afety, daily schedule, room location, or discomfort) half or more of the time? No. EXPRESSION - STEP 3: How often does the patient need help to express directions and conversation about basic needs? Less t alfonso 10% of the time EXPRESSION - SCORE: 5-SUP SOCIAL INTERACTION: SOCIAL INTERACTION - STEP 1: Does the patient require a helper to interact with others in social and therapeutic situations? No. SOCIAL INTERACTION - STEP 2: Does the patient need extra time in social situations, OR does s/he interact with staff, other patien ts, and family members ONLY in structured environments, OR does s/he require medication for social in teraction? Yes, patient needs extra time SOCIAL INTERACTION - SCORE: 6-TINO PROBLEM SOLVING: PROBLEM SOLVING - STEP 1: Does the patient need help to solve complex problems such as managing a checking account or confronti ng interpersonal problems? No. PROBLEM SOLVING - STEP 2: Does the patient require extra time to make decisions or solve problems, OR does s/he have slight dif ficulty reading, initiating, or self-correcting in unfamiliar situations? Yes, patient needs extra ti me. PROBLEM SOLVING - SCORE: 6-TINO MEMORY: MEMORY - STEP 1: Does the patient need help to remember frequently encountered people, daily routines, and executing r equests? No. MEMORY - STEP 2: Does the patient have slight difficulty recognizing frequently encountered people, daily routines, or executing requests without the need for repetition or using self-initiated or environmental cues to remember? Yes. MEMORY - SCORE: 6-TINO SIGNATURE PANEL: The following modified sections: Eating - Score, Grooming - Score, Bathing - Score, Dressing - Upper Body - Score, Dressing - Lower Body - Score, Toileting - Score, Bladder Management - Score, Bowel Man agement - Score, Transfers: Bed, Chair, Wheelchair - Score, Transfers: Toilet - Score, Transfers: Shonna wer - Score, Transfers: Tub - Score, Locomotion: Walk - Score, Locomotion: Wheelchair - Score, Compre hension - Score, Expression - Score, Social Interaction - Score, Problem Solving - Score, Memory - Sc ore were [electronically] signed by Azucena Baptiste on TueJul 05 2018 02:28:46 GMT-0500 (Central Day light Time)
[2018-07-05] MEDS: SOTALOL HCL 80 MG TAB PO SCH ×2 (05:38→17:10)
[2018-07-05] MEDS: BACLOFEN 10 MG TAB PO SCH ×2 (06:51→07:50)
[2018-07-05] MEDS: GABAPENTIN 300 MG CAP PO SCH ×2 (07:49→19:12)
[2018-07-05] MEDS: VITAMIN D 5,000 UNIT CAP PO SCH (07:49)
[2018-07-05] MEDS: ASCORBIC ACID 500 MG TABLET PO SCH (07:49)
[2018-07-05] MEDS: CALCIUM CARBONATE 500 MG TAB PO SCH ×2 (07:49→19:12)
[2018-07-05] MEDS: POTASSIUM CL SA 10 MEQ TAB PO SCH (07:50)
[2018-07-05] MEDS: MAGNESIUM OXIDE 400 MG TAB PO SCH ×2 (07:50→19:11)
[2018-07-05] MEDS: ASPIRIN EC 81 MG TAB PO SCH (07:50)
[2018-07-05] MEDS: PANTOPRAZOLE 40MG TABLET PO SCH (07:50)
[2018-07-05] MEDS: SPIRONOLACTONE 25 MG TABLET PO SCH (07:50)
[2018-07-05] MEDS: TRAMADOL HCL 50 MG TAB PO PRN ×3 (09:57→21:56)
--- NOTE | 2018-07-05 10:37 | P.PN ---
Subjective Date of Service: 07/05/18 Chief Complaint: LEG CRAMP AT TIMES. L LEG SWELLING. Subjective: Improving DOING WELL. Review of Systems 10-point ROS is otherwise unremarkable Physical Examination - Vital Signs Temperature: 97 F Blood Pressure: 131/59 Pulse: 55 Respirations: 16 Pulse Ox (%): 99 - Physical Exam General: Alert, In no apparent distress HEENT: Atraumatic, PERRLA, EOMI Neck: Supple, JVD not distended Respiratory: Clear to auscultation bilaterally, Normal air movement Cardiovascular: Regular rate/rhythm, Normal S1 S2 Gastrointestinal: Normal bowel sounds, No tenderness Musculoskeletal: No tenderness, Swelling (L LEG MILD.) Integumentary: No rashes Neurological: Normal speech, Normal tone, Normal affect Lymphatics: No axilla or inguinal lymphadenopathy - Studies Microbiology Data (last 24 hrs): 07/02/18 20:00 Clean Catch Urine [place] Count - Final >100,000 CFU/ML. 07/02/18 20:00 Clean Catch Urine - Final Escherichia Coli Medications List Reviewed: Yes Assessment And Plan - Current Problems (Diagnosis) (1) A-fib Current Visit: No Status: Acute Plan: STABLE ON MEDS SOTALOL AND XARELTO Qualifiers: Atrial fibrillation type: chronic Qualified Code(s): I48.2 - Chronic atrial fibrillation (2) Fracture of femoral neck, left, closed Onset Date: 06/26/18 Current Visit: No Status: Acute Plan: RESUME PT ALREADY HAS BEEN GIVEN RECLAST FOR BONES. RESIUME PT Qualifiers: (3) Lower leg edema Current Visit: Yes Status: Acute Plan: VENOUS DOPPLER L LEG.
--- NOTE | 2018-07-05 10:55 | RAD REPORT ---
EXAM DESCRIPTION: US - Extremity Venous Uni Ltd - 07/05/2018 10:42 am CLINICAL HISTORY: dvt Leg swelling and edema. COMPARISON: No comparisons FINDINGS: Left lower extremity venous system was interrogated with Doppler technique. Normal flow, c ompressibility and augmentation was noted. There is no DVT present. IMPRESSION: No evidence of left lower extremity deep venous thrombosis.
[2018-07-05] MEDS: ACETAMINOPHEN 500 MG TAB PO PRN (11:42)
--- NOTE | 2018-07-05 13:13 | FAST ---
SHIFT START DATE/TIME: 07/05/2018 07:00 (CDT) SHIFT END DATE/TIME: 07/05/2018 19:00 (CDT) NAME FRANCE BAUMANN DATE OF : 1945 DATE OF ADMISSION: 07/02/2018 14:34 (CDT) PHONE: AGE: 73 N# [id number] GENDER: Female ENCOUNTER PHYSICIAN: Dr. Luke Major M.D. ADMISSION DIAGNOSIS: - Orthopaedic Disorders 08 - Unilateral Hip Fracture (08.11) Left Femoral Neck Fracture. EATING: EATING - STEP 1: Does the patient require assistance when eating? Yes. EATING - STEP 2: Does the patient require the assistance of a helper? Yes. EATING - STEP 3: Does the patient perform half or more of the eating tasks? Yes. EATING - STEP 4: Does the patient need only supervision, cuing, coaxing OR help to apply an orthosis OR help to cut fo od, open containers, pour liquids, or butter bread? Yes. EATING - SCORE: 5-SUP GROOMING: Comb/brush hair Oral care Wash, rinse, and dry face Wash, rinse, and dry hands GROOMING - STEP 1: Does the patient require assistance when grooming? Yes. GROOMING - STEP 2: Does the patient require the assistance of a helper? No. The patient only requires an assistive devic e, OR takes more than reasonable time to groom, OR there is a concern for safety as the patient groom s GROOMING - SCORE: 6-TINO BATHING: Activity did not occur on this shift BATHING - SCORE: 0-UNK DRESSING - UPPER BODY: Activity did not occur on this shift ARTICLES SCORE Total number of steps: 0 DRESSING - UPPER BODY - SCORE: 0-UNK DRESSING - LOWER BODY: Activity did not occur on this shift ARTICLES SCORE Total number of steps: 0 DRESSING - LOWER BODY - SCORE: 0-UNK TOILETING: TOILETING - STEP 1: Does the patient require assistance with toileting? Yes. TOILETING - STEP 2: Does the patient require the assistance of a helper? Yes. TOILETING - STEP 3: How much assistance does the patient require from the helper? Hands-on assistance from the helper TOILETING - STEP 4: Of the 3 tasks: 1) Adjusting clothing prior to use, 2) Cleansing of perineal area, 3) Adjusting clot feroz after use; How many tasks does the patient perform WITHOUT assistance of the helper? Three tasks with steadying assistance from the helper TOILETING - SCORE: 4-MIN BLADDER MANAGEMENT: BLADDER MANAGEMENT - STEP 1: Does the patient control the bladder completely and intentionally without equipment or devices or med ications, and is always continent? No. BLADDER MANAGEMENT - STEP 2: Does the patient require the assistance of a helper? No, patient only requires extra time BLADDER MANAGEMENT - SCORE: 6-TINO BLADDER MANAGEMENT - FREQUENCY OF ACCIDENTS: BLADDER MANAGEMENT(FA) - STEP 1: How many accidents has the patient had during the current shift? 0 BOWEL MANAGEMENT: BOWEL MANAGEMENT - STEP 1: Does the patient control bowels completely and intentionally without equipment devices or medications AND is always continent? No. BOWEL MANAGEMENT - STEP 2: Does the patient require the assistance of a helper? No, patient requires medication for control such as stool softeners, suppositories, laxatives, enemas, or OTC medications BOWEL MANAGEMENT - SCORE: 6-TINO BOWEL MANAGEMENT - FREQUENCY OF ACCIDENTS: BOWEL MANAGEMENT(FA) - STEP 1: How many accidents has the patient had during the current shift? 0 TRANSFERS: BED, CHAIR, WHEELCHAIR: TRANSFERS: BED, CHAIR, WHEELCHAIR - STEP 1: Does the patient require assistance with bed, chair, or wheelchair transfers? Yes. TRANSFERS: BED, CHAIR, WHEELCHAIR - STEP 2: Does the patient require the assistance of a helper? Yes. TRANSFERS: BED, CHAIR, WHEELCHAIR - STEP 3: How much assistance does the patient require from the helper? Lifting of the patient TRANSFERS: BED, CHAIR, WHEELCHAIR - STEP 4: Does the helper lift the patient ONLY up? ONLY down? Up AND Down? ONLY up. TRANSFERS: BED, CHAIR, WHEELCHAIR - SCORE: 3-MOD TRANSFERS: TOILET: TRANSFERS: TOILET - STEP 1: Does the patient require assistance with toilet transfers? Yes. TRANSFERS: TOILET - STEP 2: Does the patient require the assistance of a helper? Yes. TRANSFERS: TOILET - STEP 3: How much assistance does the patient require from the helper? Patient performs half or more of the tr ansferring tasks TRANSFERS: TOILET - STEP 4: Does the patient need only incidental help such as contact guard or steadying during toilet transfer? Yes. TRANSFERS: TOILET - SCORE: 4-MIN TRANSFERS: SHOWER: Activity did not occur on this shift TRANSFERS: SHOWER - SCORE: 0-UNK TRANSFERS: TUB: Activity did not occur on this shift TRANSFERS: TUB - SCORE: 0-UNK LOCOMOTION: WALK: Activity did not occur on this shift LOCOMOTION: WALK - SCORE: 0-UNK LOCOMOTION: WHEELCHAIR: LOCOMOTION: WHEELCHAIR - STEP 1: Does the patient need help to go 150 feet in a wheelchair? Yes. LOCOMOTION: WHEELCHAIR - STEP 2: How much assistance does the patient need from the helper? Only incidental help such as around corner s or over thresholds LOCOMOTION: WHEELCHAIR - SCORE: 4-MIN COMPREHENSION: COMPREHENSION: TYPE: Both COMPREHENSION - STEP 1: Does the patient require help to understand complex and abstract ideas (such as current events, finan shea, discharge planning, medical issues, relationships, etc)? No. COMPREHENSION - STEP 2: Does the patient need extra time, require an assistive device (such as glasses for visual comprehensi on or a hearing aid for auditory comprehension) or does s/he have mild difficulty understanding compl ex and abstract information? Yes. COMPREHENSION - SCORE: 6-TINO EXPRESSION EXPRESSION: TYPE: Both EXPRESSION - STEP 1: Does the patient require help expressing complex and abstract ideas (such as current events, finances , discharge planning, medical issues, relationships, etc)? Yes. EXPRESSION - STEP 2: Does the patient require help to express basic necessities or ideas (such as hunger, thirst, sleep, s afety, daily schedule, room location, or discomfort) half or more of the time? No. EXPRESSION - STEP 3: How often does the patient need help to express directions and conversation about basic needs? Less t alfonso 10% of the time EXPRESSION - SCORE: 5-SUP SOCIAL INTERACTION: SOCIAL INTERACTION - STEP 1: Does the patient require a helper to interact with others in social and therapeutic situations? No. SOCIAL INTERACTION - STEP 2: Does the patient need extra time in social situations, OR does s/he interact with staff, other patien ts, and family members ONLY in structured environments, OR does s/he require medication for social in teraction? Yes, patient needs extra time SOCIAL INTERACTION - SCORE: 6-TINO PROBLEM SOLVING: PROBLEM SOLVING - STEP 1: Does the patient need help to solve complex problems such as managing a checking account or confronti ng interpersonal problems? No. PROBLEM SOLVING - STEP 2: Does the patient require extra time to make decisions or solve problems, OR does s/he have slight dif ficulty reading, initiating, or self-correcting in unfamiliar situations? Yes, patient needs extra ti me. PROBLEM SOLVING - SCORE: 6-TINO MEMORY: MEMORY - STEP 1: Does the patient need help to remember frequently encountered people, daily routines, and executing r equests? No. MEMORY - STEP 2: Does the patient have slight difficulty recognizing frequently encountered people, daily routines, or executing requests without the need for repetition or using self-initiated or environmental cues to remember? Yes. MEMORY - SCORE: 6-TINO SIGNATURE PANEL: The following modified sections: Eating - Score, Grooming - Score, Bathing - Score, Dressing - Upper Body - Score, Dressing - Lower Body - Score, Toileting - Score, Bladder Management - Score, Bowel Man agement - Score, Transfers: Bed, Chair, Wheelchair - Score, Transfers: Toilet - Score, Transfers: Shonna wer - Score, Transfers: Tub - Score, Locomotion: Walk - Score, Locomotion: Wheelchair - Score, Compre hension - Score, Expression - Score, Social Interaction - Score, Problem Solving - Score, Memory - Sc ore were [electronically] signed by Ping Sharp C.N.A. on TueJul 05 2018 13:11:53 T-0500 (Centra l Daylight Time)
--- NOTE | 2018-07-05 13:43 | FAST ---
ENCOUNTER DATE AND TIME: 07/05/2018 08:00 (CDT) NAME FRANCE BAUMANN DATE OF : 1945 DATE OF ADMISSION: 07/02/2018 14:34 (CDT) PHONE: AGE: 73 SSN# [id number] GENDER: Female ENCOUNTER PHYSICIAN: Dr. Luke Major M.D. ADMISSION DIAGNOSIS: - Orthopaedic Disorders 08 - Unilateral Hip Fracture (08.11) Left Femoral Neck Fracture. EATING: Activity did not occur on this shift EATING - SCORE: 0-UNK GROOMING: Activity did not occur on this shift GROOMING - SCORE: 0-UNK BATHING: Activity did not occur on this shift BATHING - SCORE: 0-UNK DRESSING - UPPER BODY: Activity did not occur on this shift Patient is not dressing in public clothing ARTICLES SCORE Total number of steps: 0 DRESSING - UPPER BODY - SCORE: 0-UNK DRESSING - LOWER BODY: Activity did not occur on this shift Patient is not dressing in public clothing ARTICLES SCORE Total number of steps: 0 DRESSING - LOWER BODY - SCORE: 0-UNK TOILETING: Activity did not occur on this shift TOILETING - SCORE: 0-UNK BLADDER MANAGEMENT: Activity did not occur on this shift BLADDER MANAGEMENT - SCORE: 7-IND BOWEL MANAGEMENT: Activity did not occur on this shift BOWEL MANAGEMENT - SCORE: 7-IND TRANSFERS: BED, CHAIR, WHEELCHAIR: TRANSFERS: BED, CHAIR, WHEELCHAIR - STEP 1: Does the patient require assistance with bed, chair, or wheelchair transfers? Yes. TRANSFERS: BED, CHAIR, WHEELCHAIR - STEP 2: Does the patient require the assistance of a helper? Yes. TRANSFERS: BED, CHAIR, WHEELCHAIR - STEP 3: How much assistance does the patient require from the helper? Steadying/guiding assistance TRANSFERS: BED, CHAIR, WHEELCHAIR - SCORE: 4-MIN TRANSFERS: TOILET: Activity did not occur on this shift TRANSFERS: TOILET - SCORE: 0-UNK TRANSFERS: SHOWER: Activity did not occur on this shift TRANSFERS: SHOWER - SCORE: 0-UNK TRANSFERS: TUB: Activity did not occur on this shift TRANSFERS: TUB - SCORE: 0-UNK LOCOMOTION: WALK: Activity did not occur on this shift LOCOMOTION: WALK - SCORE: 0-UNK LOCOMOTION: WHEELCHAIR: LOCOMOTION: WHEELCHAIR - STEP 1: Does the patient need help to go 150 feet in a wheelchair? Yes. LOCOMOTION: WHEELCHAIR - STEP 2: How much assistance does the patient need from the helper? Only incidental help such as around corner s or over thresholds LOCOMOTION: WHEELCHAIR - SCORE: 4-MIN LOCOMOTION: STAIRS: Activity did not occur on this shift LOCOMOTION: STAIRS - SCORE: 0-UNK COMPREHENSION: COMPREHENSION - SCORE: 0-UNK EXPRESSION EXPRESSION - SCORE: 0-UNK SOCIAL INTERACTION: SOCIAL INTERACTION - SCORE: 0-UNK PROBLEM SOLVING: PROBLEM SOLVING - SCORE: 0-UNK MEMORY: MEMORY - SCORE: 0-UNK SIGNATURE PANEL: The following modified sections: Transfers: Bed, Chair, Wheelchair - Score, Transfers: Toilet - Score , Locomotion: Walk - Score, Locomotion: Wheelchair - Score, Locomotion: Stairs - Score were [electron florina] signed by Josh Cortes PT on TueJul 05 2018 13:43:12 [facility]-0500 (Central Daylight Time)
--- NOTE | 2018-07-05 14:41 | FAST ---
ENCOUNTER DATE AND TIME: 07/04/2018 08:00 (CDT) NAME FRANCE BAUMANN DATE OF : 1945 DATE OF ADMISSION: 07/02/2018 14:34 (CDT) PHONE: AGE: 73 SSN# [id number] GENDER: Female ENCOUNTER PHYSICIAN: Dr. Luke Major M.D. ADMISSION DIAGNOSIS: - Orthopaedic Disorders 08 - Unilateral Hip Fracture (08.11) Left Femoral Neck Fracture. EATING: Activity did not occur on this shift EATING - SCORE: 0-UNK GROOMING: Activity did not occur on this shift GROOMING - SCORE: 0-UNK BATHING: Activity did not occur on this shift BATHING - SCORE: 0-UNK DRESSING - UPPER BODY: Activity did not occur on this shift Patient is not dressing in public clothing ARTICLES SCORE Total number of steps: 0 DRESSING - UPPER BODY - SCORE: 0-UNK DRESSING - LOWER BODY: Activity did not occur on this shift Patient is not dressing in public clothing ARTICLES SCORE Total number of steps: 0 DRESSING - LOWER BODY - SCORE: 0-UNK TOILETING: Activity did not occur on this shift TOILETING - SCORE: 0-UNK BLADDER MANAGEMENT: Activity did not occur on this shift BLADDER MANAGEMENT - SCORE: 7-IND BOWEL MANAGEMENT: Activity did not occur on this shift BOWEL MANAGEMENT - SCORE: 7-IND TRANSFERS: BED, CHAIR, WHEELCHAIR: TRANSFERS: BED, CHAIR, WHEELCHAIR - STEP 1: Does the patient require assistance with bed, chair, or wheelchair transfers? Yes. TRANSFERS: BED, CHAIR, WHEELCHAIR - STEP 2: Does the patient require the assistance of a helper? Yes. TRANSFERS: BED, CHAIR, WHEELCHAIR - STEP 3: How much assistance does the patient require from the helper? Steadying/guiding assistance TRANSFERS: BED, CHAIR, WHEELCHAIR - SCORE: 4-MIN TRANSFERS: TOILET: Activity did not occur on this shift TRANSFERS: TOILET - SCORE: 0-UNK TRANSFERS: SHOWER: Activity did not occur on this shift TRANSFERS: SHOWER - SCORE: 0-UNK TRANSFERS: TUB: Activity did not occur on this shift TRANSFERS: TUB - SCORE: 0-UNK LOCOMOTION: WALK: LOCOMOTION: WALK - STEP 1: Does the patient need help to walk 150 feet? Yes. LOCOMOTION: WALK - STEP 2: How much assistance does the patient require to walk a minimum of 150 feet? Patient walks less than 1 50 feet - but more than 50 feet - with the assistance of only one helper LOCOMOTION: WALK - SCORE: 2-MAX LOCOMOTION: WHEELCHAIR: LOCOMOTION: WHEELCHAIR - STEP 1: Does the patient need help to go 150 feet in a wheelchair? Yes. LOCOMOTION: WHEELCHAIR - STEP 2: How much assistance does the patient need from the helper? Only supervision, cuing, or coaxing LOCOMOTION: WHEELCHAIR - SCORE: 5-SUP LOCOMOTION: STAIRS: Activity did not occur on this shift LOCOMOTION: STAIRS - SCORE: 0-UNK COMPREHENSION: COMPREHENSION - SCORE: 0-UNK EXPRESSION EXPRESSION - SCORE: 0-UNK SOCIAL INTERACTION: SOCIAL INTERACTION - SCORE: 0-UNK PROBLEM SOLVING: PROBLEM SOLVING - SCORE: 0-UNK MEMORY: MEMORY - SCORE: 0-UNK SIGNATURE PANEL: The following modified sections: Transfers: Bed, Chair, Wheelchair - Score, Transfers: Toilet - Score , Locomotion: Walk - Score, Locomotion: Wheelchair - Score, Locomotion: Stairs - Score were [electron florina] signed by Melvin Millan PTA on TueJul 05 2018 14:40:50 GMT-0500 (Central Daylight Time)
[2018-07-05] MEDS: RIVAROXABAN 20 MG TABLET PO SCH (16:45)
--- NOTE | 2018-07-05 18:08 | R.PN ---
ENCOUNTER DATE AND TIME: 07/05/2018 18:05 (CDT) NAME FRANCE BAUMANN DATE OF : 1945 DATE OF ADMISSION: 07/02/2018 14:34 (CDT) Left Femoral Neck FractureCHIEF COMPLAINT: Left hip fracture SUBJECTIVE: Pt denied any depression. Pt denied any Shortness of Breath. Ambulated 155' with standby assistance. Propelled wheelchair 150' with standby assistance. VITAL SIGNS Temperature: 97.9 F SBP/DBP: 131/59 Pulse: 55 Resp: 14 MEDICATION ALLERGIES: Amoxicillin Codeine Ibuprofen Etodolac Annaprox ENVIRONMENTAL ALLERGIES: None Known - Substance Allergies None Known - Other Allergies None Known NURSING: - Shower allowing shower - Skin care per protocol PRECAUTIONS: - Anterior Hip Precaution No abduction No active extension No adduction across midline No external rotation No hip flexion >90 degrees No internal rotation - Posterior Hip Precaution No adduction across midline No external rotation No hip flexion >90 degrees No internal rotation No wheel chair propulsion - Weight Bearing Precaution TTWB left LE ACTIVITIES OOB only with supervision THERAPIES: - Occupational Therapy Evaluate and Treat. - Physical Therapy Evaluate and Treat. PHYSICAL EXAM - Gen Alert and awake Lying in bed No apparent distress Oriented to: person, time, and place - Skin left hip incision intact No numbness - Eyes No discharge - ENMT No abnormalities - Neck No abnormalities - CVS RRR - Chest Clear - Abd +bowel sounds - GI Soft Deferred - No abnormalities - Ext Left hip surgical site has good hemostasis. - MSK 4+/5 weakness in left lower extremity - Neuro No abnormalities - Psych No abnormalities ASSESSMENT: Pt. is a 73 yo Right-handed white female.Her impairment category is Orthopaedic Disorders 08 - Unila teral Hip Fracture (08.11).Pre-morbidly, Pt. was independent/mod-I in Sphincter Control, Transfers Co ntrol, Communication, Social Cognition, Self-Care, and Locomotion; and she had good Sphincter Control .Currently, she has deficits of Safety Awareness, Transfers Control, Balance, Self-Care, Locomotion, and Endurance.Pt. is now referred to [facility] for acute in-patient rehabilit ation in order to maximize patient's functional independence in activities of daily living, strength, ROM, and mobility.- Rehab Goal Patient has realistic goal of being discharged at assistance level 6-Candy to reside at Home with Fam brian/Relatives. MDM/PLAN: - Physical Therapy Decreased range of motion - to improve, our physical therapists will perform initial evaluation of p t's status upon admission and devise an individualized program for increasing patient's Range of Willis on. Gait dysfunction - to improve, our physical therapists will perform initial evaluation of pt's statu s upon admission and devise an individualized program for Gait Training, and Wheel Chair mobility Inability to transfer - to improve, our physical therapists will perform initial evaluation of pt's status upon admission and devise an individualized program for Bed mobility Need for home safety evaluation - to improve, our physical therapists will perform initial evaluatio n of pt's status upon admission and devise an individualized program for Home Evaluation Need in caregiver upon discharge - to improve, our physical therapists will perform initial evaluati on of pt's status upon admission and devise an individualized program for Caregiver Training New precaution - to improve, our physical therapists will perform initial evaluation of pt's status upon admission and devise an individualized program for Patient precaution education Poor balance - to improve, our physical therapists will perform initial evaluation of pt's status up on admission and devise an individualized program for Balance Training Poor endurance - to improve, our physical therapists will perform initial evaluation of pt's status upon admission and devise an individualized program for Endurance Training Weakness - to improve, our physical therapists will perform initial evaluation of pt's status upon a dmission and devise an individualized program for Aquatic Therapy, Neuromuscular Reeducation, and Str engthening Achieving independence - to improve, our physical therapists will perform initial evaluation of pt's status upon admission and devise an individualized program for Community Reintegration Activities - Occupational Therapy ADL deficits - to improve, our occupation therapists will perform initial evaluation of pt's status upon admission and devise an individualized program for Bathing, Bed mobility, Community Reintegratio n, Cooking, Dressing, Eating, Fine Motor Skills, Grooming, Homemaking, Kitchen Mobility, Laundry, Pat ient Education, Safety Awareness, Splinting - Positioning, Transfers(Toilet, Tub, Shower), and Wheel Chair Management Need for adult caregiver - to improve, our occupation therapists will perform initial evaluation of pt's status upon admission and devise an individualized program for Caregiver Training Weakness - to improve, our occupation therapists will perform initial evaluation of pt's status upon admission and devise an individualized program for Aquatic Therapy, Balance, Endurance, UE ROM, and UE strengthening - Anterior Hip Precaution No abduction No active extension No adduction across midline No external rotation No hip flexion >90 degrees No internal rotation - Diet - Liquid Texture Continue Regular - Tube Feed Continue N/A - Diet Type Continue Regular - Posterior Hip Precaution No adduction across midline No external rotation No hip flexion >90 degrees No internal rotation No wheel chair propulsion - Weight Bearing Precaution TTWB left LE - Skin care per protocol - Diet - Solid Texture Continue Regular - Shower allowing shower FUNCTIONAL STATUS: UPDATED AT WEEKLY TEAM CONFERENCE - Bladder Same accident frequency: 7-Ind - No accidents in the past 7 days - Bowel Same accident frequency: 7-Ind - No accidents in the past 7 days - Walking Same score based on distance walked: 1(<=50ft) - Wheelchair Same score based on distance traveled: 0(N/A) FUNCTIONAL STATUS: - Self-Care A. Eating sup B. Grooming Ind C. Bathing sup D. Dressing - Upper sup E. Dressing - Lower Nelson F. Toileting Nelson - Sphincter Control G: Bladder control Ind H: Bowel control Ind - Transfers Control I. Bed/Chair/Wheelchair modA J. Toilet modA K. Tub/Shower ADNO - Locomotion L. Walk/Wheelchair (C) modA L. Walk/Wheelchair (W) modA M. Stairs ADNO - Communication N. Comprehension (B) Ind O. Expression (B) Ind - Social Cognition P. Social Interaction Ind Q. Problem Solving Ind R. Memory Ind - Endurance Poor - Balance Poor - Safety Awareness Fair CURRENT FUNC. DEFICITS: Safety Awareness, Transfers Control, Balance, Self-Care, Locomotion, and Endurance SIGNATURE PANEL: (CDT)
[2018-07-05] MEDS: CRANBERRY FRUIT EXTRACT 200 MG CAP PO SCH (19:17)
[2018-07-05] MEDS: ATORVASTATIN 10 MG TAB PO SCH (20:10)
[2018-07-05] MEDS: PARoxetine HCl 10 MG TAB PO SCH (20:10)
[2018-07-05] MEDS: BACLOFEN 10 MG TAB PO PRN (21:57)
--- NOTE | 2018-07-06 01:44 | FAST ---
SHIFT START DATE/TIME: 07/05/2018 19:00 (CDT) SHIFT END DATE/TIME: 07/06/2018 07:00 (CDT) NAME FRANCE BAUMANN DATE OF : 1945 DATE OF ADMISSION: 07/02/2018 14:34 (CDT) PHONE: AGE: 73 N# [id number] GENDER: Female ENCOUNTER PHYSICIAN: Dr. Luke Major M.D. ADMISSION DIAGNOSIS: - Orthopaedic Disorders 08 - Unilateral Hip Fracture (08.11) Left Femoral Neck Fracture. EATING: Activity did not occur on this shift EATING - SCORE: 0-UNK GROOMING: Oral care Wash, rinse, and dry hands GROOMING - STEP 1: Does the patient require assistance when grooming? Yes. GROOMING - STEP 2: Does the patient require the assistance of a helper? Yes. GROOMING - STEP 3: How much assistance does the patient require from the helper? Only prior equipment preparation/set up from the helper GROOMING - SCORE: 5-SUP BATHING: Activity did not occur on this shift BATHING - SCORE: 0-UNK DRESSING - UPPER BODY: Patient is not dressing in public clothing ARTICLES SCORE Total number of steps: 0 DRESSING - UPPER BODY - SCORE: 0-UNK DRESSING - LOWER BODY: Patient is not dressing in public clothing ARTICLES SCORE Total number of steps: 0 DRESSING - LOWER BODY - SCORE: 0-UNK TOILETING: TOILETING - STEP 1: Does the patient require assistance with toileting? Yes. TOILETING - STEP 2: Does the patient require the assistance of a helper? Yes. TOILETING - STEP 3: How much assistance does the patient require from the helper? Hands-on assistance from the helper TOILETING - STEP 4: Of the 3 tasks: 1) Adjusting clothing prior to use, 2) Cleansing of perineal area, 3) Adjusting clot feroz after use; How many tasks does the patient perform WITHOUT assistance of the helper? Two tasks TOILETING - SCORE: 3-MOD BLADDER MANAGEMENT: BLADDER MANAGEMENT - STEP 1: Does the patient control the bladder completely and intentionally without equipment or devices or med ications, and is always continent? No. BLADDER MANAGEMENT - STEP 2: Does the patient require the assistance of a helper? Yes. BLADDER MANAGEMENT - STEP 3: How much assistance does the patient require from the helper? Only set-up of equipment - such as plac ing it within reach of the patient or emptying a device - to maintain either satisfactory voiding pat tern or managing an external device, such as an absorbent pad, ileal device, or catheter BLADDER MANAGEMENT - SCORE: 5-SUP BOWEL MANAGEMENT: Activity did not occur on this shift BOWEL MANAGEMENT - SCORE: 7-IND TRANSFERS: BED, CHAIR, WHEELCHAIR: TRANSFERS: BED, CHAIR, WHEELCHAIR - STEP 1: Does the patient require assistance with bed, chair, or wheelchair transfers? Yes. TRANSFERS: BED, CHAIR, WHEELCHAIR - STEP 2: Does the patient require the assistance of a helper? Yes. TRANSFERS: BED, CHAIR, WHEELCHAIR - STEP 3: How much assistance does the patient require from the helper? Lifting of the legs TRANSFERS: BED, CHAIR, WHEELCHAIR - STEP 4: How many legs does the patient require the helper to lift? both legs TRANSFERS: BED, CHAIR, WHEELCHAIR - SCORE: 3-MOD TRANSFERS: TOILET: TRANSFERS: TOILET - STEP 1: Does the patient require assistance with toilet transfers? Yes. TRANSFERS: TOILET - STEP 2: Does the patient require the assistance of a helper? Yes. TRANSFERS: TOILET - STEP 3: How much assistance does the patient require from the helper? Patient performs half or more of the tr ansferring tasks TRANSFERS: TOILET - STEP 4: Does the patient need only incidental help such as contact guard or steadying during toilet transfer? Yes. TRANSFERS: TOILET - SCORE: 4-MIN TRANSFERS: SHOWER: Activity did not occur on this shift TRANSFERS: SHOWER - SCORE: 0-UNK TRANSFERS: TUB: Activity did not occur on this shift TRANSFERS: TUB - SCORE: 0-UNK LOCOMOTION: WALK: Activity did not occur on this shift LOCOMOTION: WALK - SCORE: 0-UNK LOCOMOTION: WHEELCHAIR: Activity did not occur on this shift LOCOMOTION: WHEELCHAIR - SCORE: 0-UNK COMPREHENSION: COMPREHENSION: TYPE: Both COMPREHENSION - STEP 1: Does the patient require help to understand complex and abstract ideas (such as current events, finan shea, discharge planning, medical issues, relationships, etc)? No. COMPREHENSION - STEP 2: Does the patient need extra time, require an assistive device (such as glasses for visual comprehensi on or a hearing aid for auditory comprehension) or does s/he have mild difficulty understanding compl ex and abstract information? Yes. COMPREHENSION - SCORE: 6-TINO EXPRESSION EXPRESSION: TYPE: Both EXPRESSION - STEP 1: Does the patient require help expressing complex and abstract ideas (such as current events, finances , discharge planning, medical issues, relationships, etc)? No. EXPRESSION - STEP 2: Does the patient need extra time, require an assistive device (such as augmentive communication syste m or a communication board), OR does s/he have mild difficulty expressing complex and abstract ideas (including mild dysarthria or mild word-find problems)? Yes. EXPRESSION - SCORE: 6-TINO SOCIAL INTERACTION: SOCIAL INTERACTION - STEP 1: Does the patient require a helper to interact with others in social and therapeutic situations? No. SOCIAL INTERACTION - STEP 2: Does the patient need extra time in social situations, OR does s/he interact with staff, other patien ts, and family members ONLY in structured environments, OR does s/he require medication for social in teraction? Yes, patient needs extra time SOCIAL INTERACTION - SCORE: 6-TINO PROBLEM SOLVING: PROBLEM SOLVING - STEP 1: Does the patient need help to solve complex problems such as managing a checking account or confronti ng interpersonal problems? No. PROBLEM SOLVING - STEP 2: Does the patient require extra time to make decisions or solve problems, OR does s/he have slight dif ficulty reading, initiating, or self-correcting in unfamiliar situations? Yes, patient needs extra ti me. PROBLEM SOLVING - SCORE: 6-TINO MEMORY: MEMORY - STEP 1: Does the patient need help to remember frequently encountered people, daily routines, and executing r equests? No. MEMORY - STEP 2: Does the patient have slight difficulty recognizing frequently encountered people, daily routines, or executing requests without the need for repetition or using self-initiated or environmental cues to remember? Yes. MEMORY - SCORE: 6-TINO SIGNATURE PANEL: The following modified sections: Eating - Score, Grooming - Score, Dressing - Upper Body - Score, Adam ssing - Lower Body - Score, Toileting - Score, Bladder Management - Score, Bowel Management - Score, Transfers: Bed, Chair, Wheelchair - Score, Transfers: Toilet - Score, Transfers: Shower - Score, Jo sfers: Tub - Score, Locomotion: Walk - Score, Locomotion: Wheelchair - Score, Comprehension - Score, Expression - Score, Social Interaction - Score, Problem Solving - Score, Memory - Score were [electro nically] signed by Ellen Canada CNA on TueJul 06 2018 01:42:45 T-0500 (Central Daylight Time)
[2018-07-06] MEDS: ACETAMINOPHEN 500 MG TAB PO PRN ×2 (03:11→08:07)
[2018-07-06] MEDS: SOTALOL HCL 80 MG TAB PO SCH ×2 (05:16→17:16)
[2018-07-06 06:03] LABS: Absolute Lymphocytes (CBC) 2.1 K/uL (0.7-4.9); Absolute Neutrophil 4.8 K/uL (1.8-8.0); Basophils % 2.4 % (0-1.3); Eosinophils % 3.1 % (0-4.4); Hematocrit 32.3 % (36.0-45.0); MCH 28.3 pg (27.0-35.0); MCV 84.9 fL (80-100); MPV 9.3 fL (7.6-11.3); Monocytes % 11.7 % (3.3-12.3); RBC Red Blood Cell Count 3.81 M/uL (3.86-4.86)
[2018-07-06 06:26] LABS: Albumin 2.5 g/dL (3.4-5.0); BUN Blood Urea Nitrogen 14 mg/dL (7-18); Bicarbonate 33 mmol/L (21-32); Glucose Level 109 mg/dL (74-106); Potassium 3.8 mmol/L (3.5-5.1); Prealbumin 12.2 mg/dL (20-40); Sodium Level 143 mmol/L (136-145)
[2018-07-06] MEDS: MAGNESIUM OXIDE 400 MG TAB PO SCH ×2 (08:06→20:34)
[2018-07-06] MEDS: SPIRONOLACTONE 25 MG TABLET PO SCH (08:06)
[2018-07-06] MEDS: CRANBERRY FRUIT EXTRACT 200 MG CAP PO SCH ×2 (08:06→20:34)
[2018-07-06] MEDS: ASCORBIC ACID 500 MG TABLET PO SCH (08:06)
[2018-07-06] MEDS: CALCIUM CARBONATE 500 MG TAB PO SCH ×2 (08:07→20:33)
[2018-07-06] MEDS: VITAMIN D 5,000 UNIT CAP PO SCH (08:07)
[2018-07-06] MEDS: ASPIRIN EC 81 MG TAB PO SCH (08:08)
[2018-07-06] MEDS: GABAPENTIN 300 MG CAP PO SCH ×2 (08:08→20:33)
[2018-07-06] MEDS: POTASSIUM CL SA 10 MEQ TAB PO SCH (08:08)
[2018-07-06] MEDS: PANTOPRAZOLE 40MG TABLET PO SCH (08:08)
[2018-07-06] MEDS: TRAMADOL HCL 50 MG TAB PO PRN ×2 (11:05→22:24)
--- NOTE | 2018-07-06 14:22 | FAST ---
ENCOUNTER DATE AND TIME: 07/06/2018 08:00 (CDT) NAME FRANCE BAUMANN DATE OF : 1945 DATE OF ADMISSION: 07/02/2018 14:34 (CDT) PHONE: AGE: 73 SSN# [id number] GENDER: Female ENCOUNTER PHYSICIAN: Dr. Luke Major M.D. ADMISSION DIAGNOSIS: - Orthopaedic Disorders 08 - Unilateral Hip Fracture (08.11) Left Femoral Neck Fracture. EATING: Activity did not occur on this shift EATING - SCORE: 0-UNK GROOMING: Activity did not occur on this shift GROOMING - SCORE: 0-UNK BATHING: Activity did not occur on this shift BATHING - SCORE: 0-UNK DRESSING - UPPER BODY: Activity did not occur on this shift Patient is not dressing in public clothing ARTICLES SCORE Total number of steps: 0 DRESSING - UPPER BODY - SCORE: 0-UNK DRESSING - LOWER BODY: Activity did not occur on this shift Patient is not dressing in public clothing ARTICLES SCORE Total number of steps: 0 DRESSING - LOWER BODY - SCORE: 0-UNK TOILETING: Activity did not occur on this shift TOILETING - SCORE: 0-UNK BLADDER MANAGEMENT: Activity did not occur on this shift BLADDER MANAGEMENT - SCORE: 7-IND BOWEL MANAGEMENT: Activity did not occur on this shift BOWEL MANAGEMENT - SCORE: 7-IND TRANSFERS: BED, CHAIR, WHEELCHAIR: TRANSFERS: BED, CHAIR, WHEELCHAIR - STEP 1: Does the patient require assistance with bed, chair, or wheelchair transfers? Yes. TRANSFERS: BED, CHAIR, WHEELCHAIR - STEP 2: Does the patient require the assistance of a helper? Yes. TRANSFERS: BED, CHAIR, WHEELCHAIR - STEP 3: How much assistance does the patient require from the helper? Only supervision TRANSFERS: BED, CHAIR, WHEELCHAIR - SCORE: 5-SUP TRANSFERS: TOILET: Activity did not occur on this shift TRANSFERS: TOILET - SCORE: 0-UNK TRANSFERS: SHOWER: Activity did not occur on this shift TRANSFERS: SHOWER - SCORE: 0-UNK TRANSFERS: TUB: Activity did not occur on this shift TRANSFERS: TUB - SCORE: 0-UNK LOCOMOTION: WALK: LOCOMOTION: WALK - STEP 1: Does the patient need help to walk 150 feet? Yes. LOCOMOTION: WALK - STEP 2: How much assistance does the patient require to walk a minimum of 150 feet? Only supervision, cuing, or coaxing LOCOMOTION: WALK - SCORE: 5-SUP LOCOMOTION: WHEELCHAIR: LOCOMOTION: WHEELCHAIR - STEP 1: Does the patient need help to go 150 feet in a wheelchair? No. LOCOMOTION: WHEELCHAIR - SCORE: 6-TINO LOCOMOTION: STAIRS: Activity did not occur on this shift LOCOMOTION: STAIRS - SCORE: 0-UNK COMPREHENSION: COMPREHENSION - SCORE: 0-UNK EXPRESSION EXPRESSION - SCORE: 0-UNK SOCIAL INTERACTION: SOCIAL INTERACTION - SCORE: 0-UNK PROBLEM SOLVING: PROBLEM SOLVING - SCORE: 0-UNK MEMORY: MEMORY - SCORE: 0-UNK SIGNATURE PANEL: The following modified sections: Transfers: Bed, Chair, Wheelchair - Score, Transfers: Toilet - Score , Locomotion: Walk - Score, Locomotion: Wheelchair - Score, Locomotion: Stairs - Score were [electron florina] signed by Melvin Millan PTA on TueJul 06 2018 14:21:03 GMT-0500 (Central Daylight Time)
[2018-07-06] MEDS: RIVAROXABAN 20 MG TABLET PO SCH (17:16)
--- NOTE | 2018-07-06 17:33 | P.PN ---
Subjective Date of Service: 07/06/18 Chief Complaint: LEG PAIN AFTER SHE WALKS. Subjective: Improving DOING WELL. Review of Systems 10-point ROS is otherwise unremarkable Physical Examination - Vital Signs Temperature: 97.2 F Blood Pressure: 132/63 Pulse: 61 Respirations: 16 Pulse Ox (%): 97 - Physical Exam General: Moderate distress HEENT: Atraumatic, PERRLA, EOMI Neck: Supple, JVD not distended Respiratory: Clear to auscultation bilaterally, Normal air movement Cardiovascular: Regular rate/rhythm, Normal S1 S2 Gastrointestinal: Normal bowel sounds, No tenderness Musculoskeletal: No tenderness Integumentary: No rashes Neurological: Normal speech, Normal tone, Normal affect Lymphatics: No axilla or inguinal lymphadenopathy - Studies Laboratory Data (last 24 hrs) 07/06/18 05:49: Sodium 143, Potassium 3.8, BUN 14, Creatinine 0.60, Glucose 109 H 07/06/18 05:49: WBC 8.3, Hgb 10.8 L, Hct 32.3 L, Plt Count 398 D Medications List Reviewed: Yes Assessment And Plan - Current Problems (Diagnosis) (1) A-fib Current Visit: No Status: Acute Plan: STABLE ON MEDS SOTALOL AND XARELTO Qualifiers: Atrial fibrillation type: chronic Qualified Code(s): I48.2 - Chronic atrial fibrillation (2) Fracture of femoral neck, left, closed Onset Date: 06/26/18 Current Visit: No Status: Acute Plan: RESUME PT ALREADY HAS BEEN GIVEN RECLAST FOR BONES. RESIUME PT Qualifiers: (3) Lower leg edema Current Visit: Yes Status: Acute Plan: VENOUS DOPPLER L LEG. (4) Claudication Current Visit: Yes Status: Acute Plan: ART DOPPLER L LEG.
--- NOTE | 2018-07-06 17:54 | R.PN ---
ENCOUNTER DATE AND TIME: 07/06/2018 17:50 (CDT) NAME FRANCE BAUMANN DATE OF : 1945 DATE OF ADMISSION: 07/02/2018 14:34 (CDT) Left Femoral Neck FractureCHIEF COMPLAINT: Left hip fracture SUBJECTIVE: Pt denied any depression. Pt denied any Shortness of Breath. Ambulated 155' with standby assistance. Propelled wheelchair 150' with standby assistance. VITAL SIGNS Temperature: 97.2 F SBP/DBP: 132/63 Pulse: 61 Resp: 15 MEDICATION ALLERGIES: Amoxicillin Codeine Ibuprofen Etodolac Annaprox ENVIRONMENTAL ALLERGIES: None Known - Substance Allergies None Known - Other Allergies None Known NURSING: - Shower allowing shower - Skin care per protocol PRECAUTIONS: - Anterior Hip Precaution No abduction No active extension No adduction across midline No external rotation No hip flexion >90 degrees No internal rotation - Posterior Hip Precaution No adduction across midline No external rotation No hip flexion >90 degrees No internal rotation No wheel chair propulsion - Weight Bearing Precaution TTWB left LE ACTIVITIES OOB only with supervision THERAPIES: - Occupational Therapy Evaluate and Treat. - Physical Therapy Evaluate and Treat. PHYSICAL EXAM - Gen Alert and awake Lying in bed No apparent distress Oriented to: person, time, and place - Skin left hip incision intact No numbness - Eyes No discharge - ENMT No abnormalities - Neck No abnormalities - CVS RRR - Chest Clear - Abd +bowel sounds - GI Soft Deferred - No abnormalities - Ext Left hip surgical site has good hemostasis. - MSK 4+/5 weakness in left lower extremity - Neuro No abnormalities - Psych No abnormalities ASSESSMENT: Pt. is a 73 yo Right-handed white female.Her impairment category is Orthopaedic Disorders 08 - Unila teral Hip Fracture (08.11).Pre-morbidly, Pt. was independent/mod-I in Sphincter Control, Transfers Co ntrol, Communication, Social Cognition, Self-Care, and Locomotion; and she had good Sphincter Control .Currently, she has deficits of Safety Awareness, Transfers Control, Balance, Self-Care, Locomotion, and Endurance.Pt. is now referred to [facility] for acute in-patient rehabilit ation in order to maximize patient's functional independence in activities of daily living, strength, ROM, and mobility.- Rehab Goal Patient has realistic goal of being discharged at assistance level 6-Candy to reside at Home with Fam brian/Relatives. MDM/PLAN: - Physical Therapy Decreased range of motion - to improve, our physical therapists will perform initial evaluation of p t's status upon admission and devise an individualized program for increasing patient's Range of Willis on. Gait dysfunction - to improve, our physical therapists will perform initial evaluation of pt's statu s upon admission and devise an individualized program for Gait Training, and Wheel Chair mobility Inability to transfer - to improve, our physical therapists will perform initial evaluation of pt's status upon admission and devise an individualized program for Bed mobility Need for home safety evaluation - to improve, our physical therapists will perform initial evaluatio n of pt's status upon admission and devise an individualized program for Home Evaluation Need in caregiver upon discharge - to improve, our physical therapists will perform initial evaluati on of pt's status upon admission and devise an individualized program for Caregiver Training New precaution - to improve, our physical therapists will perform initial evaluation of pt's status upon admission and devise an individualized program for Patient precaution education Poor balance - to improve, our physical therapists will perform initial evaluation of pt's status up on admission and devise an individualized program for Balance Training Poor endurance - to improve, our physical therapists will perform initial evaluation of pt's status upon admission and devise an individualized program for Endurance Training Weakness - to improve, our physical therapists will perform initial evaluation of pt's status upon a dmission and devise an individualized program for Aquatic Therapy, Neuromuscular Reeducation, and Str engthening Achieving independence - to improve, our physical therapists will perform initial evaluation of pt's status upon admission and devise an individualized program for Community Reintegration Activities - Occupational Therapy ADL deficits - to improve, our occupation therapists will perform initial evaluation of pt's status upon admission and devise an individualized program for Bathing, Bed mobility, Community Reintegratio n, Cooking, Dressing, Eating, Fine Motor Skills, Grooming, Homemaking, Kitchen Mobility, Laundry, Pat ient Education, Safety Awareness, Splinting - Positioning, Transfers(Toilet, Tub, Shower), and Wheel Chair Management Need for chronic care nurse - to improve, our occupation therapists will perform initial evaluation of pt's status upon admission and devise an individualized program for Caregiver Training Weakness - to improve, our occupation therapists will perform initial evaluation of pt's status upon admission and devise an individualized program for Aquatic Therapy, Balance, Endurance, UE ROM, and UE strengthening - Anterior Hip Precaution No abduction No active extension No adduction across midline No external rotation No hip flexion >90 degrees No internal rotation - Diet - Liquid Texture Continue Regular - Tube Feed Continue N/A - Diet Type Continue Regular - Posterior Hip Precaution No adduction across midline No external rotation No hip flexion >90 degrees No internal rotation No wheel chair propulsion - Weight Bearing Precaution TTWB left LE - Skin care per protocol - Diet - Solid Texture Continue Regular - Shower allowing shower FUNCTIONAL STATUS: UPDATED AT WEEKLY TEAM CONFERENCE - Bladder Same accident frequency: 7-Ind - No accidents in the past 7 days - Bowel Same accident frequency: 7-Ind - No accidents in the past 7 days - Walking Same score based on distance walked: 1(<=50ft) - Wheelchair Same score based on distance traveled: 0(N/A) FUNCTIONAL STATUS: - Self-Care A. Eating sup B. Grooming Ind C. Bathing sup D. Dressing - Upper sup E. Dressing - Lower Nelson F. Toileting Nelson - Sphincter Control G: Bladder control Ind H: Bowel control Ind - Transfers Control I. Bed/Chair/Wheelchair modA J. Toilet modA K. Tub/Shower ADNO - Locomotion L. Walk/Wheelchair (C) modA L. Walk/Wheelchair (W) modA M. Stairs ADNO - Communication N. Comprehension (B) Ind O. Expression (B) Ind - Social Cognition P. Social Interaction Ind Q. Problem Solving Ind R. Memory Ind - Endurance Poor - Balance Poor - Safety Awareness Fair CURRENT FUNC. DEFICITS: Safety Awareness, Transfers Control, Balance, Self-Care, Locomotion, and Endurance SIGNATURE PANEL: (CDT)
--- NOTE | 2018-07-06 19:58 | RAD REPORT ---
EXAM DESCRIPTION: US - Lower Extremity Artery Uni Ltd - 07/06/2018 7:33 pm CLINICAL HISTORY: Left leg pain and swelling COMPARISON: None FINDINGS: Waveforms of left common femoral, left superficial femoral arteries are triphasic. Wavefor ms of the left popliteal, left posterior tibial and left dorsalis pedis arteries are biphasic. Mild plaque is seen. IMPRESSION: Mild plaque without evidence of a high-grade stenosis/occlusion of the arteries of left lower extremity
[2018-07-06] MEDS: PARoxetine HCl 10 MG TAB PO SCH (20:33)
[2018-07-06] MEDS: ATORVASTATIN 10 MG TAB PO SCH (20:33)
[2018-07-06] MEDS: BACLOFEN 10 MG TAB PO PRN (20:34)
--- NOTE | 2018-07-07 00:49 | FAST ---
SHIFT START DATE/TIME: 07/06/2018 19:00 (CDT) SHIFT END DATE/TIME: 07/07/2018 07:00 (CDT) NAME FRANCE BAUMANN DATE OF : 1945 DATE OF ADMISSION: 07/02/2018 14:34 (CDT) PHONE: AGE: 73 N# [id number] GENDER: Female ENCOUNTER PHYSICIAN: Dr. Luke Major M.D. ADMISSION DIAGNOSIS: - Orthopaedic Disorders 08 - Unilateral Hip Fracture (08.11) Left Femoral Neck Fracture. EATING: Activity did not occur on this shift EATING - SCORE: 0-UNK GROOMING: Wash, rinse, and dry hands GROOMING - STEP 1: Does the patient require assistance when grooming? Yes. GROOMING - STEP 2: Does the patient require the assistance of a helper? Yes. GROOMING - STEP 3: How much assistance does the patient require from the helper? Only prior equipment preparation/set up from the helper GROOMING - SCORE: 5-SUP BATHING: Activity did not occur on this shift BATHING - SCORE: 0-UNK DRESSING - UPPER BODY: Patient is not dressing in public clothing ARTICLES SCORE Total number of steps: 0 DRESSING - UPPER BODY - SCORE: 0-UNK DRESSING - LOWER BODY: Patient is not dressing in public clothing ARTICLES SCORE Total number of steps: 0 DRESSING - LOWER BODY - SCORE: 0-UNK TOILETING: TOILETING - STEP 1: Does the patient require assistance with toileting? Yes. TOILETING - STEP 2: Does the patient require the assistance of a helper? Yes. TOILETING - STEP 3: How much assistance does the patient require from the helper? Hands-on assistance from the helper TOILETING - STEP 4: Of the 3 tasks: 1) Adjusting clothing prior to use, 2) Cleansing of perineal area, 3) Adjusting clot feroz after use; How many tasks does the patient perform WITHOUT assistance of the helper? Two tasks TOILETING - SCORE: 3-MOD BLADDER MANAGEMENT: BLADDER MANAGEMENT - STEP 1: Does the patient control the bladder completely and intentionally without equipment or devices or med ications, and is always continent? No. BLADDER MANAGEMENT - STEP 2: Does the patient require the assistance of a helper? Yes. BLADDER MANAGEMENT - STEP 3: How much assistance does the patient require from the helper? Only set-up of equipment - such as plac ing it within reach of the patient or emptying a device - to maintain either satisfactory voiding pat tern or managing an external device, such as an absorbent pad, ileal device, or catheter BLADDER MANAGEMENT - SCORE: 5-SUP BOWEL MANAGEMENT: Activity did not occur on this shift BOWEL MANAGEMENT - SCORE: 7-IND TRANSFERS: BED, CHAIR, WHEELCHAIR: TRANSFERS: BED, CHAIR, WHEELCHAIR - STEP 1: Does the patient require assistance with bed, chair, or wheelchair transfers? Yes. TRANSFERS: BED, CHAIR, WHEELCHAIR - STEP 2: Does the patient require the assistance of a helper? Yes. TRANSFERS: BED, CHAIR, WHEELCHAIR - STEP 3: How much assistance does the patient require from the helper? Lifting of the legs TRANSFERS: BED, CHAIR, WHEELCHAIR - STEP 4: How many legs does the patient require the helper to lift? both legs TRANSFERS: BED, CHAIR, WHEELCHAIR - SCORE: 3-MOD TRANSFERS: TOILET: TRANSFERS: TOILET - STEP 1: Does the patient require assistance with toilet transfers? Yes. TRANSFERS: TOILET - STEP 2: Does the patient require the assistance of a helper? Yes. TRANSFERS: TOILET - STEP 3: How much assistance does the patient require from the helper? Patient performs half or more of the tr ansferring tasks TRANSFERS: TOILET - STEP 4: Does the patient need only incidental help such as contact guard or steadying during toilet transfer? Yes. TRANSFERS: TOILET - SCORE: 4-MIN TRANSFERS: SHOWER: Activity did not occur on this shift TRANSFERS: SHOWER - SCORE: 0-UNK TRANSFERS: TUB: Activity did not occur on this shift TRANSFERS: TUB - SCORE: 0-UNK LOCOMOTION: WALK: Activity did not occur on this shift LOCOMOTION: WALK - SCORE: 0-UNK LOCOMOTION: WHEELCHAIR: Activity did not occur on this shift LOCOMOTION: WHEELCHAIR - SCORE: 0-UNK COMPREHENSION: COMPREHENSION: TYPE: Both COMPREHENSION - STEP 1: Does the patient require help to understand complex and abstract ideas (such as current events, finan shea, discharge planning, medical issues, relationships, etc)? No. COMPREHENSION - STEP 2: Does the patient need extra time, require an assistive device (such as glasses for visual comprehensi on or a hearing aid for auditory comprehension) or does s/he have mild difficulty understanding compl ex and abstract information? Yes. COMPREHENSION - SCORE: 6-TINO EXPRESSION EXPRESSION: TYPE: Both EXPRESSION - STEP 1: Does the patient require help expressing complex and abstract ideas (such as current events, finances , discharge planning, medical issues, relationships, etc)? No. EXPRESSION - STEP 2: Does the patient need extra time, require an assistive device (such as augmentive communication syste m or a communication board), OR does s/he have mild difficulty expressing complex and abstract ideas (including mild dysarthria or mild word-find problems)? No. EXPRESSION - SCORE: 7-IND SOCIAL INTERACTION: SOCIAL INTERACTION - STEP 1: Does the patient require a helper to interact with others in social and therapeutic situations? No. SOCIAL INTERACTION - STEP 2: Does the patient need extra time in social situations, OR does s/he interact with staff, other patien ts, and family members ONLY in structured environments, OR does s/he require medication for social in teraction? Yes, patient needs extra time SOCIAL INTERACTION - SCORE: 6-TINO PROBLEM SOLVING: PROBLEM SOLVING - STEP 1: Does the patient need help to solve complex problems such as managing a checking account or confronti ng interpersonal problems? No. PROBLEM SOLVING - STEP 2: Does the patient require extra time to make decisions or solve problems, OR does s/he have slight dif ficulty reading, initiating, or self-correcting in unfamiliar situations? Yes, patient needs extra ti me. PROBLEM SOLVING - SCORE: 6-TINO MEMORY: MEMORY - STEP 1: Does the patient need help to remember frequently encountered people, daily routines, and executing r equests? No. MEMORY - STEP 2: Does the patient have slight difficulty recognizing frequently encountered people, daily routines, or executing requests without the need for repetition or using self-initiated or environmental cues to remember? Yes. MEMORY - SCORE: 6-TINO SIGNATURE PANEL: The following modified sections: Eating - Score, Grooming - Score, Dressing - Upper Body - Score, Adam ssing - Lower Body - Score, Toileting - Score, Bladder Management - Score, Bowel Management - Score, Transfers: Bed, Chair, Wheelchair - Score, Transfers: Toilet - Score, Transfers: Shower - Score, Jo sfers: Tub - Score, Locomotion: Walk - Score, Locomotion: Wheelchair - Score, Comprehension - Score, Expression - Score, Social Interaction - Score, Problem Solving - Score, Memory - Score were [electro nically] signed by Ellen Canada CNA on TueJul 07 2018 00:48:16 GMT-0500 (Central Daylight Time)
[2018-07-07] MEDS: SOTALOL HCL 80 MG TAB PO SCH ×2 (05:12→17:15)
[2018-07-07] MEDS: SPIRONOLACTONE 25 MG TABLET PO SCH (07:32)
[2018-07-07] MEDS: GABAPENTIN 300 MG CAP PO SCH ×2 (07:32→19:35)
[2018-07-07] MEDS: POTASSIUM CL SA 10 MEQ TAB PO SCH (07:32)
[2018-07-07] MEDS: ASPIRIN EC 81 MG TAB PO SCH (07:32)
[2018-07-07] MEDS: CRANBERRY FRUIT EXTRACT 200 MG CAP PO SCH ×2 (07:32→19:35)
[2018-07-07] MEDS: ASCORBIC ACID 500 MG TABLET PO SCH (07:32)
[2018-07-07] MEDS: VITAMIN D 5,000 UNIT CAP PO SCH (07:32)
[2018-07-07] MEDS: TRAMADOL HCL 50 MG TAB PO PRN ×2 (07:33→14:58)
[2018-07-07] MEDS: CALCIUM CARBONATE 500 MG TAB PO SCH ×2 (07:33→19:36)
[2018-07-07] MEDS: PANTOPRAZOLE 40MG TABLET PO SCH (07:33)
[2018-07-07] MEDS: MAGNESIUM OXIDE 400 MG TAB PO SCH ×2 (07:33→19:36)
--- NOTE | 2018-07-07 09:40 | P.RH.PN ---
Estimated Length of Stay: 11 Expected Discharge Date: 07/12/18 Discharge Disposition Plan: Home Family Support: Yes Custodial Goal: Mobility, Transfers, Self Care Vital Signs: Last Vital Signs Temp 97.4 F 07/07/18 07:00 Pulse 66 07/07/18 07:32 Resp 16 07/07/18 07:00 BP 140/62 07/07/18 07:32 Pulse Ox 98 07/07/18 07:00 Laboratory: Laboratory Last Values WBC 8.3 K/uL (4.3-10.9) 07/06/18 05:49 RBC 3.81 M/uL (3.86-4.86) L 07/06/18 05:49 Hgb 10.8 g/dL (12.0-15.0) L 07/06/18 05:49 Hct 32.3 % (36.0-45.0) L 07/06/18 05:49 MCV 84.9 fL (80-100) 07/06/18 05:49 MCH 28.3 pg (27.0-35.0) 07/06/18 05:49 MCHC 33.4 g/dL (32.0-36.0) 07/06/18 05:49 RDW 14.1 % (12.1-15.2) 07/06/18 05:49 Plt Count 398 K/uL (152-406) D 07/06/18 05:49 MPV 9.3 fL (7.6-11.3) 07/06/18 05:49 Neutrophils % 57.8 % (41.7-73.7) 07/06/18 05:49 Lymphocytes % 25.0 % (15.3-44.8) 07/06/18 05:49 Monocytes % 11.7 % (3.3-12.3) 07/06/18 05:49 Eosinophils % 3.1 % (0-4.4) 07/06/18 05:49 Basophils % 2.4 % (0-1.3) H 07/06/18 05:49 Absolute Neutrophils 4.8 K/uL (1.8-8.0) 07/06/18 05:49 Absolute Lymphocytes 2.1 K/uL (0.7-4.9) 07/06/18 05:49 Absolute Monocytes 1.0 K/uL (0.1-1.3) 07/06/18 05:49 Absolute Eosinophils 0.3 K/uL (0-0.5) 07/06/18 05:49 Absolute Basophils 0.2 K/uL (0-0.5) 07/06/18 05:49 Sodium 143 mmol/L (136-145) 07/06/18 05:49 Potassium 3.8 mmol/L (3.5-5.1) 07/06/18 05:49 Chloride 105 mmol/L (98-107) 07/06/18 05:49 Carbon Dioxide 33 mmol/L (21-32) H 07/06/18 05:49 BUN 14 mg/dL (7-18) 07/06/18 05:49 Creatinine 0.60 mg/dL (0.55-1.3) 07/06/18 05:49 Estimated GFR > 90 mL/min (=/>90) 07/06/18 05:49 Glucose 109 mg/dL (74-106) H 07/06/18 05:49 Calcium 7.7 mg/dL (8.5-10.1) L 07/06/18 05:49 Magnesium 2.1 mg/dL (1.8-2.4) 07/03/18 05:50 Albumin 2.5 g/dL (3.4-5.0) L 07/06/18 05:49 Prealbumin 12.2 mg/dL (20-40) L 07/06/18 05:49 Urine Color Yellow 07/02/18 20:00 Urine Appearance Cloudy 07/02/18 20:00 Urine pH 7.5 (5.0-7.0) H 07/02/18 20:00 Ur Specific [place] 1.015 (1.005-1.030) 07/02/18 20:00 Urine Ketones Negative (NEG) 07/02/18 20:00 Urine Blood Negative (NEG) 07/02/18 20:00 Urine Nitrite Negative (NEG) 07/02/18 20:00 Urine Bilirubin Negative (NEG) 07/02/18 20:00 Urine Urobilinogen 1.0 mg/dL (0.2-1.0) 07/02/18 20:00 Ur Leukocyte Esterase 1+ (NEG) H 07/02/18 20:00 Urine RBC None seen /HPF (NONE SEEN) 07/02/18 20:00 Urine WBC 10-20 /HPF (<5) H 07/02/18 20:00 Ur Squamous Epith Cells <5 /HPF (NONE SEEN) 07/02/18 20:00 Ur Urothelial Cells <5 /HPF (NONE SEEN) 07/02/18 20:00 Urine Bacteria Loaded /HPF (<20) H 07/02/18 20:00 Urine Culture Reflexed Not needed 07/02/18 20:00 Urine Glucose Negative (NEG) 07/02/18 20:00 Urine Total Protein Negative (NEG) 07/02/18 20:00 Weight: 135 lb 3 oz Wound Present: No Closed Surgical Incision Present: Yes Negative Pressure Wound Therapy Present: No Physician Update: Her labs have been reviewed. Her Hgb is stable at 10.8. Prealbumin is slightly up to 12.2. She is doing well with physical and occupational therapy. Functional Improvement: Patient has met all short-term goals at this time and is progressing well toward long-term goals. Patient continues to improve w/ TDWB and gait distance. Functional Improvement Occupational Therapy: pt can benifit with further therapy to address pt's UB strength and ROM, cont to increase pt's endurance for functional transfers and maintaining TDWB on the Left. Cont to educate on LB dressing tasks using A/E and safety awareness for adl tasks. cont with the POC and the goals by the supervising OTR. Summary: Patient's care plan and skilled nursing goals have been reviewed and revised as necessary. Please see the Rehabilitation Signature page for all necessary signatures.
--- NOTE | 2018-07-07 14:32 | P.PN ---
Subjective Date of Service: 07/07/18 Chief Complaint: LEG PAIN AFTER SHE WALKS. DOING WELL. L LEG SWELLING. I EXPLAINED NO CLOTS ARE SEEN. WILL DO COMPRESSION. Review of Systems 10-point ROS is otherwise unremarkable Physical Examination - Vital Signs Temperature: 97.4 F Blood Pressure: 140/62 Pulse: 66 Respirations: 16 Pulse Ox (%): 98 - Physical Exam General: Alert, In no apparent distress HEENT: Atraumatic, PERRLA, EOMI Neck: Supple, JVD not distended Respiratory: Clear to auscultation bilaterally, Normal air movement Cardiovascular: Regular rate/rhythm, Normal S1 S2 Gastrointestinal: Normal bowel sounds, No tenderness Musculoskeletal: No tenderness, Other (L LEG SWELLING) Integumentary: No rashes Neurological: Normal speech, Normal tone, Normal affect Lymphatics: No axilla or inguinal lymphadenopathy - Studies Medications List Reviewed: Yes Assessment And Plan - Current Problems (Diagnosis) (1) A-fib Current Visit: No Status: Acute Plan: STABLE ON MEDS SOTALOL AND XARELTO Qualifiers: Atrial fibrillation type: chronic Qualified Code(s): I48.2 - Chronic atrial fibrillation (2) Fracture of femoral neck, left, closed Onset Date: 06/26/18 Current Visit: No Status: Acute Plan: RESUME PT ALREADY HAS BEEN GIVEN RECLAST FOR BONES. RESIUME PT Qualifiers: (3) Lower leg edema Current Visit: Yes Status: Acute Plan: VENOUS DOPPLER L LEG. STOCKINGS. IF CAN. (4) Claudication Current Visit: Yes Status: Acute Plan: ART DOPPLER L LEG.
[2018-07-07] MEDS: RIVAROXABAN 20 MG TABLET PO SCH (17:17)
[2018-07-07] MEDS: PROMOD 30 ML DOSE PO SCH (19:37)
[2018-07-07] MEDS: PARoxetine HCl 10 MG TAB PO SCH (21:40)
[2018-07-07] MEDS: ATORVASTATIN 10 MG TAB PO SCH (21:40)
--- NOTE | 2018-07-08 02:24 | FAST ---
SHIFT START DATE/TIME: 07/07/2018 19:00 (CDT) SHIFT END DATE/TIME: 07/08/2018 07:00 (CDT) NAME FRANCE BAUMANN DATE OF : 1945 DATE OF ADMISSION: 07/02/2018 14:34 (CDT) PHONE: AGE: 73 N# [id number] GENDER: Female ENCOUNTER PHYSICIAN: Dr. Luke Major M.D. ADMISSION DIAGNOSIS: - Orthopaedic Disorders 08 - Unilateral Hip Fracture (08.11) Left Femoral Neck Fracture. EATING: Activity did not occur on this shift EATING - SCORE: 0-UNK GROOMING: Oral care Wash, rinse, and dry face Wash, rinse, and dry hands GROOMING - STEP 1: Does the patient require assistance when grooming? Yes. GROOMING - STEP 2: Does the patient require the assistance of a helper? Yes. GROOMING - STEP 3: How much assistance does the patient require from the helper? Only prior equipment preparation/set up from the helper GROOMING - SCORE: 5-SUP BATHING: Activity did not occur on this shift BATHING - SCORE: 0-UNK DRESSING - UPPER BODY: Patient is not dressing in public clothing ARTICLES SCORE Total number of steps: 0 DRESSING - UPPER BODY - SCORE: 0-UNK DRESSING - LOWER BODY: Patient is not dressing in public clothing ARTICLES SCORE Total number of steps: 0 DRESSING - LOWER BODY - SCORE: 0-UNK TOILETING: TOILETING - STEP 1: Does the patient require assistance with toileting? Yes. TOILETING - STEP 2: Does the patient require the assistance of a helper? Yes. TOILETING - STEP 3: How much assistance does the patient require from the helper? Hands-on assistance from the helper TOILETING - STEP 4: Of the 3 tasks: 1) Adjusting clothing prior to use, 2) Cleansing of perineal area, 3) Adjusting clot feroz after use; How many tasks does the patient perform WITHOUT assistance of the helper? Two tasks TOILETING - SCORE: 3-MOD BLADDER MANAGEMENT: BLADDER MANAGEMENT - STEP 1: Does the patient control the bladder completely and intentionally without equipment or devices or med ications, and is always continent? No. BLADDER MANAGEMENT - STEP 2: Does the patient require the assistance of a helper? Yes. BLADDER MANAGEMENT - STEP 3: How much assistance does the patient require from the helper? Only set-up of equipment - such as plac ing it within reach of the patient or emptying a device - to maintain either satisfactory voiding pat tern or managing an external device, such as an absorbent pad, ileal device, or catheter BLADDER MANAGEMENT - SCORE: 5-SUP BOWEL MANAGEMENT: Activity did not occur on this shift BOWEL MANAGEMENT - SCORE: 7-IND TRANSFERS: BED, CHAIR, WHEELCHAIR: TRANSFERS: BED, CHAIR, WHEELCHAIR - STEP 1: Does the patient require assistance with bed, chair, or wheelchair transfers? Yes. TRANSFERS: BED, CHAIR, WHEELCHAIR - STEP 2: Does the patient require the assistance of a helper? Yes. TRANSFERS: BED, CHAIR, WHEELCHAIR - STEP 3: How much assistance does the patient require from the helper? Lifting of the legs TRANSFERS: BED, CHAIR, WHEELCHAIR - STEP 4: How many legs does the patient require the helper to lift? both legs TRANSFERS: BED, CHAIR, WHEELCHAIR - SCORE: 3-MOD TRANSFERS: TOILET: TRANSFERS: TOILET - STEP 1: Does the patient require assistance with toilet transfers? Yes. TRANSFERS: TOILET - STEP 2: Does the patient require the assistance of a helper? Yes. TRANSFERS: TOILET - STEP 3: How much assistance does the patient require from the helper? Patient performs half or more of the tr ansferring tasks TRANSFERS: TOILET - STEP 4: Does the patient need only incidental help such as contact guard or steadying during toilet transfer? Yes. TRANSFERS: TOILET - SCORE: 4-MIN TRANSFERS: SHOWER: Activity did not occur on this shift TRANSFERS: SHOWER - SCORE: 0-UNK TRANSFERS: TUB: Activity did not occur on this shift TRANSFERS: TUB - SCORE: 0-UNK LOCOMOTION: WALK: Activity did not occur on this shift LOCOMOTION: WALK - SCORE: 0-UNK LOCOMOTION: WHEELCHAIR: Activity did not occur on this shift LOCOMOTION: WHEELCHAIR - SCORE: 0-UNK COMPREHENSION: COMPREHENSION: TYPE: Both COMPREHENSION - STEP 1: Does the patient require help to understand complex and abstract ideas (such as current events, finan shea, discharge planning, medical issues, relationships, etc)? No. COMPREHENSION - STEP 2: Does the patient need extra time, require an assistive device (such as glasses for visual comprehensi on or a hearing aid for auditory comprehension) or does s/he have mild difficulty understanding compl ex and abstract information? Yes. COMPREHENSION - SCORE: 6-TINO EXPRESSION EXPRESSION: TYPE: Both EXPRESSION - STEP 1: Does the patient require help expressing complex and abstract ideas (such as current events, finances , discharge planning, medical issues, relationships, etc)? No. EXPRESSION - STEP 2: Does the patient need extra time, require an assistive device (such as augmentive communication syste m or a communication board), OR does s/he have mild difficulty expressing complex and abstract ideas (including mild dysarthria or mild word-find problems)? No. EXPRESSION - SCORE: 7-IND SOCIAL INTERACTION: SOCIAL INTERACTION - STEP 1: Does the patient require a helper to interact with others in social and therapeutic situations? No. SOCIAL INTERACTION - STEP 2: Does the patient need extra time in social situations, OR does s/he interact with staff, other patien ts, and family members ONLY in structured environments, OR does s/he require medication for social in teraction? Yes, patient needs extra time SOCIAL INTERACTION - SCORE: 6-TINO PROBLEM SOLVING: PROBLEM SOLVING - STEP 1: Does the patient need help to solve complex problems such as managing a checking account or confronti ng interpersonal problems? No. PROBLEM SOLVING - STEP 2: Does the patient require extra time to make decisions or solve problems, OR does s/he have slight dif ficulty reading, initiating, or self-correcting in unfamiliar situations? Yes, patient needs extra ti me. PROBLEM SOLVING - SCORE: 6-TINO MEMORY: MEMORY - STEP 1: Does the patient need help to remember frequently encountered people, daily routines, and executing r equests? No. MEMORY - STEP 2: Does the patient have slight difficulty recognizing frequently encountered people, daily routines, or executing requests without the need for repetition or using self-initiated or environmental cues to remember? Yes. MEMORY - SCORE: 6-TINO
[2018-07-08] MEDS: SOTALOL HCL 80 MG TAB PO SCH ×2 (05:04→17:01)
[2018-07-08] MEDS: CALCIUM CARBONATE 500 MG TAB PO SCH ×2 (08:00→20:13)
[2018-07-08] MEDS: PROMOD 30 ML DOSE PO SCH ×2 (08:00→20:00)
[2018-07-08] MEDS: CRANBERRY FRUIT EXTRACT 200 MG CAP PO SCH ×2 (09:26→20:12)
[2018-07-08] MEDS: GABAPENTIN 300 MG CAP PO SCH ×2 (09:26→20:12)
[2018-07-08] MEDS: MAGNESIUM OXIDE 400 MG TAB PO SCH ×2 (09:26→20:13)
[2018-07-08] MEDS: VITAMIN D 5,000 UNIT CAP PO SCH (09:26)
[2018-07-08] MEDS: FERROUS SULFATE 325 MG TAB PO SCH (09:27)
[2018-07-08] MEDS: ASPIRIN EC 81 MG TAB PO SCH (09:27)
[2018-07-08] MEDS: SPIRONOLACTONE 25 MG TABLET PO SCH (09:27)
[2018-07-08] MEDS: TRAMADOL HCL 50 MG TAB PO PRN (09:27)
[2018-07-08] MEDS: ASCORBIC ACID 500 MG TABLET PO SCH (09:27)
[2018-07-08] MEDS: POTASSIUM CL SA 10 MEQ TAB PO SCH (09:28)
[2018-07-08] MEDS: FE SULF/FA/VIT B COMP & C TAB PO SCH (09:28)
[2018-07-08] MEDS: PANTOPRAZOLE 40MG TABLET PO SCH (09:28)
--- NOTE | 2018-07-08 09:52 | FAST ---
SHIFT START DATE/TIME: 07/08/2018 07:00 (CDT) SHIFT END DATE/TIME: 07/08/2018 19:00 (CDT) NAME FRANCE BAUMANN DATE OF : 1945 DATE OF ADMISSION: 07/02/2018 14:34 (CDT) PHONE: AGE: 73 N# [id number] GENDER: Female ENCOUNTER PHYSICIAN: Dr. Luke Major M.D. ADMISSION DIAGNOSIS: - Orthopaedic Disorders 08 - Unilateral Hip Fracture (08.11) Left Femoral Neck Fracture. EATING: EATING - STEP 1: Does the patient require assistance when eating? Yes. EATING - STEP 2: Does the patient require the assistance of a helper? No, patient only requires an assistive device, O R s/he takes more than reasonable time to eat, OR there is a safety concern, OR s/he requires modifie d food consistency EATING - SCORE: 6-TINO GROOMING: Comb/brush hair Oral care Wash, rinse, and dry face Wash, rinse, and dry hands GROOMING - STEP 1: Does the patient require assistance when grooming? Yes. GROOMING - STEP 2: Does the patient require the assistance of a helper? Yes. GROOMING - STEP 3: How much assistance does the patient require from the helper? Cuing, coaxing, instructions, or encour agement for completion of grooming GROOMING - SCORE: 5-SUP BATHING: Activity did not occur on this shift BATHING - SCORE: 0-UNK DRESSING - UPPER BODY: Activity did not occur on this shift ARTICLES SCORE Total number of steps: 0 DRESSING - UPPER BODY - SCORE: 0-UNK DRESSING - LOWER BODY: Activity did not occur on this shift ARTICLES SCORE Total number of steps: 0 DRESSING - LOWER BODY - SCORE: 0-UNK TOILETING: TOILETING - STEP 1: Does the patient require assistance with toileting? Yes. TOILETING - STEP 2: Does the patient require the assistance of a helper? Yes. TOILETING - STEP 3: How much assistance does the patient require from the helper? Hands-on assistance from the helper TOILETING - STEP 4: Of the 3 tasks: 1) Adjusting clothing prior to use, 2) Cleansing of perineal area, 3) Adjusting clot feroz after use; How many tasks does the patient perform WITHOUT assistance of the helper? Two tasks TOILETING - SCORE: 3-MOD BLADDER MANAGEMENT: BLADDER MANAGEMENT - STEP 1: Does the patient control the bladder completely and intentionally without equipment or devices or med ications, and is always continent? No. BLADDER MANAGEMENT - STEP 2: Does the patient require the assistance of a helper? No, patient requires and independently uses an a ssistive device, such as a urinal, bedpan, bedside commode, catheter, absorbent pad, or collecting de vice BLADDER MANAGEMENT - SCORE: 6-TINO BOWEL MANAGEMENT: BOWEL MANAGEMENT - STEP 1: Does the patient control bowels completely and intentionally without equipment devices or medications AND is always continent? No. BOWEL MANAGEMENT - STEP 2: Does the patient require the assistance of a helper? No, patient requires and manages independently a n assistive device such as a bedpan, bedside commode, absorbent pad, incontinent device, or collectin g device BOWEL MANAGEMENT - SCORE: 6-TINO TRANSFERS: BED, CHAIR, WHEELCHAIR: TRANSFERS: BED, CHAIR, WHEELCHAIR - STEP 1: Does the patient require assistance with bed, chair, or wheelchair transfers? Yes. TRANSFERS: BED, CHAIR, WHEELCHAIR - STEP 2: Does the patient require the assistance of a helper? Yes. TRANSFERS: BED, CHAIR, WHEELCHAIR - STEP 3: How much assistance does the patient require from the helper? Steadying/guiding assistance TRANSFERS: BED, CHAIR, WHEELCHAIR - SCORE: 4-MIN TRANSFERS: TOILET: TRANSFERS: TOILET - STEP 1: Does the patient require assistance with toilet transfers? Yes. TRANSFERS: TOILET - STEP 2: Does the patient require the assistance of a helper? Yes. TRANSFERS: TOILET - STEP 3: How much assistance does the patient require from the helper? Patient performs half or more of the tr ansferring tasks TRANSFERS: TOILET - STEP 4: Does the patient need only incidental help such as contact guard or steadying during toilet transfer? Yes. TRANSFERS: TOILET - SCORE: 4-MIN TRANSFERS: SHOWER: Activity did not occur on this shift TRANSFERS: SHOWER - SCORE: 0-UNK TRANSFERS: TUB: Activity did not occur on this shift TRANSFERS: TUB - SCORE: 0-UNK LOCOMOTION: WALK: Activity did not occur on this shift LOCOMOTION: WALK - SCORE: 0-UNK LOCOMOTION: WHEELCHAIR: Activity did not occur on this shift LOCOMOTION: WHEELCHAIR - SCORE: 0-UNK COMPREHENSION: COMPREHENSION: TYPE: Both COMPREHENSION - STEP 1: Does the patient require help to understand complex and abstract ideas (such as current events, finan shea, discharge planning, medical issues, relationships, etc)? No. COMPREHENSION - STEP 2: Does the patient need extra time, require an assistive device (such as glasses for visual comprehensi on or a hearing aid for auditory comprehension) or does s/he have mild difficulty understanding compl ex and abstract information? Yes. COMPREHENSION - SCORE: 6-TINO EXPRESSION EXPRESSION: TYPE: Both EXPRESSION - STEP 1: Does the patient require help expressing complex and abstract ideas (such as current events, finances , discharge planning, medical issues, relationships, etc)? No. EXPRESSION - STEP 2: Does the patient need extra time, require an assistive device (such as augmentive communication syste m or a communication board), OR does s/he have mild difficulty expressing complex and abstract ideas (including mild dysarthria or mild word-find problems)? Yes. EXPRESSION - SCORE: 6-TINO SOCIAL INTERACTION: SOCIAL INTERACTION - STEP 1: Does the patient require a helper to interact with others in social and therapeutic situations? No. SOCIAL INTERACTION - STEP 2: Does the patient need extra time in social situations, OR does s/he interact with staff, other patien ts, and family members ONLY in structured environments, OR does s/he require medication for social in teraction? No. SOCIAL INTERACTION - SCORE: 7-IND PROBLEM SOLVING: PROBLEM SOLVING - STEP 1: Does the patient need help to solve complex problems such as managing a checking account or confronti ng interpersonal problems? No. PROBLEM SOLVING - STEP 2: Does the patient require extra time to make decisions or solve problems, OR does s/he have slight dif ficulty reading, initiating, or self-correcting in unfamiliar situations? Yes, patient needs extra ti me. PROBLEM SOLVING - SCORE: 6-TINO MEMORY: MEMORY - STEP 1: Does the patient need help to remember frequently encountered people, daily routines, and executing r equests? No. MEMORY - STEP 2: Does the patient have slight difficulty recognizing frequently encountered people, daily routines, or executing requests without the need for repetition or using self-initiated or environmental cues to remember? No. MEMORY - SCORE: 7-IND SIGNATURE PANEL: The following modified sections: Eating - Score, Grooming - Score, Bathing - Score, Dressing - Upper Body - Score, Dressing - Lower Body - Score, Toileting - Score, Bladder Management - Score, Bowel Man agement - Score, Transfers: Bed, Chair, Wheelchair - Score, Transfers: Toilet - Score, Transfers: Shonna wer - Score, Transfers: Tub - Score, Locomotion: Walk - Score, Locomotion: Wheelchair - Score, Compre hension - Score, Expression - Score, Social Interaction - Score, Problem Solving - Score, Memory - Sc ore were [electronically] signed by Aayush Reeves on Sat Jul 08 2018 09:51:10 GMT-0500 (Central Daylight Time)
[2018-07-08] MEDS: ACETAMINOPHEN 500 MG TAB PO PRN (12:51)
[2018-07-08] MEDS: RIVAROXABAN 20 MG TABLET PO SCH (17:01)
--- NOTE | 2018-07-08 18:50 | P.PN ---
Subjective Date of Service: 07/08/18 Chief Complaint: PAIN HAS IMPROVED. DOING WELL. L LEG SWELLING. I EXPLAINED NO CLOTS ARE SEEN. WILL DO COMPRESSION. HER STOCKINGS ARE HELPING HTE PAIN NOW. Review of Systems 10-point ROS is otherwise unremarkable Physical Examination - Vital Signs Temperature: 97.2 F Blood Pressure: 95/49 Pulse: 68 Respirations: 17 Pulse Ox (%): 100 - Physical Exam General: Alert, In no apparent distress HEENT: Atraumatic, PERRLA, EOMI Neck: Supple, JVD not distended Respiratory: Clear to auscultation bilaterally, Normal air movement Cardiovascular: Regular rate/rhythm, Normal S1 S2 Gastrointestinal: Normal bowel sounds, No tenderness Musculoskeletal: No tenderness, Other (POST OP EDEMA. L LE.) Integumentary: No rashes Neurological: Normal speech, Normal tone, Normal affect Lymphatics: No axilla or inguinal lymphadenopathy - Studies Medications List Reviewed: Yes Assessment And Plan - Current Problems (Diagnosis) (1) A-fib Current Visit: No Status: Acute Plan: STABLE ON MEDS SOTALOL AND XARELTO STABLE, NO CHANGS LAB BIW Qualifiers: Atrial fibrillation type: chronic Qualified Code(s): I48.2 - Chronic atrial fibrillation (2) Fracture of femoral neck, left, closed Onset Date: 06/26/18 Current Visit: No Status: Acute Plan: RESUME PT ALREADY HAS BEEN GIVEN RECLAST FOR BONES. RESIUME PT Qualifiers: (3) Lower leg edema Current Visit: Yes Status: Acute Plan: VENOUS DOPPLER L LEG. STOCKINGS. IF CAN. (4) Claudication Current Visit: Yes Status: Acute Plan: ART DOPPLER L LEG.
[2018-07-08] MEDS: ATORVASTATIN 10 MG TAB PO SCH (20:13)
[2018-07-08] MEDS: PARoxetine HCl 10 MG TAB PO SCH (20:13)
--- NOTE | 2018-07-09 02:15 | FAST ---
SHIFT START DATE/TIME: 07/08/2018 19:00 (CDT) SHIFT END DATE/TIME: 07/09/2018 07:00 (CDT) NAME FRANCE BAUMANN DATE OF : 1945 DATE OF ADMISSION: 07/02/2018 14:34 (CDT) PHONE: AGE: 73 N# [id number] GENDER: Female ENCOUNTER PHYSICIAN: Dr. Luke Major M.D. ADMISSION DIAGNOSIS: - Orthopaedic Disorders 08 - Unilateral Hip Fracture (08.11) Left Femoral Neck Fracture. EATING: Activity did not occur on this shift EATING - SCORE: 0-UNK GROOMING: Oral care Wash, rinse, and dry face Wash, rinse, and dry hands GROOMING - STEP 1: Does the patient require assistance when grooming? Yes. GROOMING - STEP 2: Does the patient require the assistance of a helper? Yes. GROOMING - STEP 3: How much assistance does the patient require from the helper? Only prior equipment preparation/set up from the helper GROOMING - SCORE: 5-SUP BATHING: Activity did not occur on this shift BATHING - SCORE: 0-UNK DRESSING - UPPER BODY: Patient is not dressing in public clothing ARTICLES SCORE Total number of steps: 0 DRESSING - UPPER BODY - SCORE: 0-UNK DRESSING - LOWER BODY: Patient is not dressing in public clothing ARTICLES SCORE Total number of steps: 0 DRESSING - LOWER BODY - SCORE: 0-UNK TOILETING: TOILETING - STEP 1: Does the patient require assistance with toileting? Yes. TOILETING - STEP 2: Does the patient require the assistance of a helper? Yes. TOILETING - STEP 3: How much assistance does the patient require from the helper? Hands-on assistance from the helper TOILETING - STEP 4: Of the 3 tasks: 1) Adjusting clothing prior to use, 2) Cleansing of perineal area, 3) Adjusting clot feroz after use; How many tasks does the patient perform WITHOUT assistance of the helper? Three tasks with steadying assistance from the helper TOILETING - SCORE: 4-MIN BLADDER MANAGEMENT: BLADDER MANAGEMENT - STEP 1: Does the patient control the bladder completely and intentionally without equipment or devices or med ications, and is always continent? No. BLADDER MANAGEMENT - STEP 2: Does the patient require the assistance of a helper? Yes. BLADDER MANAGEMENT - STEP 3: How much assistance does the patient require from the helper? Only set-up of equipment - such as plac ing it within reach of the patient or emptying a device - to maintain either satisfactory voiding pat tern or managing an external device, such as an absorbent pad, ileal device, or catheter BLADDER MANAGEMENT - SCORE: 5-SUP BOWEL MANAGEMENT: Activity did not occur on this shift BOWEL MANAGEMENT - SCORE: 7-IND TRANSFERS: BED, CHAIR, WHEELCHAIR: TRANSFERS: BED, CHAIR, WHEELCHAIR - STEP 1: Does the patient require assistance with bed, chair, or wheelchair transfers? Yes. TRANSFERS: BED, CHAIR, WHEELCHAIR - STEP 2: Does the patient require the assistance of a helper? Yes. TRANSFERS: BED, CHAIR, WHEELCHAIR - STEP 3: How much assistance does the patient require from the helper? Lifting of the legs TRANSFERS: BED, CHAIR, WHEELCHAIR - STEP 4: How many legs does the patient require the helper to lift? one leg TRANSFERS: BED, CHAIR, WHEELCHAIR - SCORE: 4-MIN TRANSFERS: TOILET: TRANSFERS: TOILET - STEP 1: Does the patient require assistance with toilet transfers? Yes. TRANSFERS: TOILET - STEP 2: Does the patient require the assistance of a helper? Yes. TRANSFERS: TOILET - STEP 3: How much assistance does the patient require from the helper? Patient performs half or more of the tr ansferring tasks TRANSFERS: TOILET - STEP 4: Does the patient need only incidental help such as contact guard or steadying during toilet transfer? Yes. TRANSFERS: TOILET - SCORE: 4-MIN TRANSFERS: SHOWER: Activity did not occur on this shift TRANSFERS: SHOWER - SCORE: 0-UNK TRANSFERS: TUB: Activity did not occur on this shift TRANSFERS: TUB - SCORE: 0-UNK LOCOMOTION: WALK: Activity did not occur on this shift LOCOMOTION: WALK - SCORE: 0-UNK LOCOMOTION: WHEELCHAIR: Activity did not occur on this shift LOCOMOTION: WHEELCHAIR - SCORE: 0-UNK COMPREHENSION: COMPREHENSION: TYPE: Both COMPREHENSION - STEP 1: Does the patient require help to understand complex and abstract ideas (such as current events, finan shea, discharge planning, medical issues, relationships, etc)? No. COMPREHENSION - STEP 2: Does the patient need extra time, require an assistive device (such as glasses for visual comprehensi on or a hearing aid for auditory comprehension) or does s/he have mild difficulty understanding compl ex and abstract information? Yes. COMPREHENSION - SCORE: 6-TINO EXPRESSION EXPRESSION: TYPE: Both EXPRESSION - STEP 1: Does the patient require help expressing complex and abstract ideas (such as current events, finances , discharge planning, medical issues, relationships, etc)? No. EXPRESSION - STEP 2: Does the patient need extra time, require an assistive device (such as augmentive communication syste m or a communication board), OR does s/he have mild difficulty expressing complex and abstract ideas (including mild dysarthria or mild word-find problems)? Yes. EXPRESSION - SCORE: 6-TINO SOCIAL INTERACTION: SOCIAL INTERACTION - STEP 1: Does the patient require a helper to interact with others in social and therapeutic situations? No. SOCIAL INTERACTION - STEP 2: Does the patient need extra time in social situations, OR does s/he interact with staff, other patien ts, and family members ONLY in structured environments, OR does s/he require medication for social in teraction? Yes, patient needs extra time SOCIAL INTERACTION - SCORE: 6-TINO PROBLEM SOLVING: PROBLEM SOLVING - STEP 1: Does the patient need help to solve complex problems such as managing a checking account or confronti ng interpersonal problems? No. PROBLEM SOLVING - STEP 2: Does the patient require extra time to make decisions or solve problems, OR does s/he have slight dif ficulty reading, initiating, or self-correcting in unfamiliar situations? Yes, patient needs extra ti me. PROBLEM SOLVING - SCORE: 6-TINO MEMORY: MEMORY - STEP 1: Does the patient need help to remember frequently encountered people, daily routines, and executing r equests? No. MEMORY - STEP 2: Does the patient have slight difficulty recognizing frequently encountered people, daily routines, or executing requests without the need for repetition or using self-initiated or environmental cues to remember? Yes. MEMORY - SCORE: 6-TINO
[2018-07-09] MEDS: SOTALOL HCL 80 MG TAB PO SCH ×2 (05:10→17:23)
[2018-07-09 06:43] LABS: Absolute Lymphocytes (CBC) 2.3 K/uL (0.7-4.9); Absolute Monocytes 0.8 K/uL (0.1-1.3); Absolute Neutrophil 4.6 K/uL (1.8-8.0); Basophils % 1.3 % (0-1.3); Eosinophils % 2.6 % (0-4.4); Lymphocytes % 28.5 % (15.3-44.8); MCV 90.2 fL (80-100); MPV 9.8 fL (7.6-11.3); Monocytes % 10.5 % (3.3-12.3); RBC Red Blood Cell Count 3.55 M/uL (3.86-4.86)
[2018-07-09 06:57] LABS: BUN Blood Urea Nitrogen 13 mg/dL (7-18); Bicarbonate 30 mmol/L (21-32); Glucose Level 100 mg/dL (74-106); Potassium 4.1 mmol/L (3.5-5.1); Sodium Level 143 mmol/L (136-145)
[2018-07-09] MEDS: BACLOFEN 10 MG TAB PO PRN (07:32)
[2018-07-09] MEDS: ASCORBIC ACID 500 MG TABLET PO SCH (07:54)
[2018-07-09] MEDS: CALCIUM CARBONATE 500 MG TAB PO SCH ×2 (07:55→20:04)
[2018-07-09] MEDS: FE SULF/FA/VIT B COMP & C TAB PO SCH (07:56)
[2018-07-09] MEDS: GABAPENTIN 300 MG CAP PO SCH ×2 (07:59→20:04)
[2018-07-09] MEDS: POTASSIUM CL SA 10 MEQ TAB PO SCH (07:59)
[2018-07-09] MEDS: FERROUS SULFATE 325 MG TAB PO SCH (07:59)
[2018-07-09] MEDS: MAGNESIUM OXIDE 400 MG TAB PO SCH ×2 (07:59→20:04)
[2018-07-09] MEDS: ASPIRIN EC 81 MG TAB PO SCH (07:59)
[2018-07-09] MEDS: VITAMIN D 5,000 UNIT CAP PO SCH (07:59)
[2018-07-09] MEDS: PANTOPRAZOLE 40MG TABLET PO SCH (07:59)
[2018-07-09] MEDS: SPIRONOLACTONE 25 MG TABLET PO SCH (07:59)
[2018-07-09] MEDS: PROMOD 30 ML DOSE PO SCH ×2 (08:00→20:00)
[2018-07-09] MEDS: CRANBERRY FRUIT EXTRACT 200 MG CAP PO SCH ×2 (08:00→20:03)
--- NOTE | 2018-07-09 13:26 | FAST ---
SHIFT START DATE/TIME: 07/09/2018 07:00 (CDT) SHIFT END DATE/TIME: 07/09/2018 19:00 (CDT) NAME FRANCE BAUMANN DATE OF : 1945 DATE OF ADMISSION: 07/02/2018 14:34 (CDT) PHONE: AGE: 73 SSN# [id number] GENDER: Female ENCOUNTER PHYSICIAN: Dr. Luke Major M.D. ADMISSION DIAGNOSIS: - Orthopaedic Disorders 08 - Unilateral Hip Fracture (08.11) Left Femoral Neck Fracture. EATING: EATING - STEP 1: Does the patient require assistance when eating? Yes. EATING - STEP 2: Does the patient require the assistance of a helper? Yes. EATING - STEP 3: Does the patient perform half or more of the eating tasks? Yes. EATING - STEP 4: Does the patient need only supervision, cuing, coaxing OR help to apply an orthosis OR help to cut fo od, open containers, pour liquids, or butter bread? Yes. EATING - SCORE: 5-SUP GROOMING: Comb/brush hair Wash, rinse, and dry face Wash, rinse, and dry hands GROOMING - STEP 1: Does the patient require assistance when grooming? Yes. GROOMING - STEP 2: Does the patient require the assistance of a helper? No. The patient only requires an assistive devic e, OR takes more than reasonable time to groom, OR there is a concern for safety as the patient groom s GROOMING - SCORE: 6-TINO BATHING: Activity did not occur on this shift BATHING - SCORE: 0-UNK DRESSING - UPPER BODY: Activity did not occur on this shift ARTICLES SCORE Total number of steps: 0 DRESSING - UPPER BODY - SCORE: 0-UNK DRESSING - LOWER BODY: Activity did not occur on this shift ARTICLES SCORE Total number of steps: 0 DRESSING - LOWER BODY - SCORE: 0-UNK TOILETING: TOILETING - STEP 1: Does the patient require assistance with toileting? Yes. TOILETING - STEP 2: Does the patient require the assistance of a helper? Yes. TOILETING - STEP 3: How much assistance does the patient require from the helper? Only supervision TOILETING - SCORE: 5-SUP BLADDER MANAGEMENT: BLADDER MANAGEMENT - STEP 1: Does the patient control the bladder completely and intentionally without equipment or devices or med ications, and is always continent? No. BLADDER MANAGEMENT - STEP 2: Does the patient require the assistance of a helper? No, patient only requires extra time BLADDER MANAGEMENT - SCORE: 6-TINO BLADDER MANAGEMENT - FREQUENCY OF ACCIDENTS: BLADDER MANAGEMENT(FA) - STEP 1: How many accidents has the patient had during the current shift? 0 BOWEL MANAGEMENT: BOWEL MANAGEMENT - STEP 1: Does the patient control bowels completely and intentionally without equipment devices or medications AND is always continent? No. BOWEL MANAGEMENT - STEP 2: Does the patient require the assistance of a helper? No, patient requires extra time BOWEL MANAGEMENT - SCORE: 6-TINO BOWEL MANAGEMENT - FREQUENCY OF ACCIDENTS: BOWEL MANAGEMENT(FA) - STEP 1: How many accidents has the patient had during the current shift? 0 TRANSFERS: BED, CHAIR, WHEELCHAIR: TRANSFERS: BED, CHAIR, WHEELCHAIR - STEP 1: Does the patient require assistance with bed, chair, or wheelchair transfers? Yes. TRANSFERS: BED, CHAIR, WHEELCHAIR - STEP 2: Does the patient require the assistance of a helper? Yes. TRANSFERS: BED, CHAIR, WHEELCHAIR - STEP 3: How much assistance does the patient require from the helper? Lifting of the legs TRANSFERS: BED, CHAIR, WHEELCHAIR - STEP 4: How many legs does the patient require the helper to lift? one leg TRANSFERS: BED, CHAIR, WHEELCHAIR - SCORE: 4-MIN TRANSFERS: TOILET: TRANSFERS: TOILET - STEP 1: Does the patient require assistance with toilet transfers? Yes. TRANSFERS: TOILET - STEP 2: Does the patient require the assistance of a helper? No. Patient only requires an assistive device sahni ch as a grab bar or special seat, OR s/he takes more than reasonable time to perform toilet transfers , OR there is a safety concern when s/he performs toilet transfers. TRANSFERS: TOILET - SCORE: 6-TINO TRANSFERS: SHOWER: Activity did not occur on this shift TRANSFERS: SHOWER - SCORE: 0-UNK TRANSFERS: TUB: Activity did not occur on this shift TRANSFERS: TUB - SCORE: 0-UNK LOCOMOTION: WALK: Activity did not occur on this shift LOCOMOTION: WALK - SCORE: 0-UNK LOCOMOTION: WHEELCHAIR: LOCOMOTION: WHEELCHAIR - STEP 1: Does the patient need help to go 150 feet in a wheelchair? Yes. LOCOMOTION: WHEELCHAIR - STEP 2: How much assistance does the patient need from the helper? Only supervision, cuing, or coaxing LOCOMOTION: WHEELCHAIR - SCORE: 5-SUP COMPREHENSION: COMPREHENSION: TYPE: Both COMPREHENSION - STEP 1: Does the patient require help to understand complex and abstract ideas (such as current events, finan shea, discharge planning, medical issues, relationships, etc)? No. COMPREHENSION - STEP 2: Does the patient need extra time, require an assistive device (such as glasses for visual comprehensi on or a hearing aid for auditory comprehension) or does s/he have mild difficulty understanding compl ex and abstract information? Yes. COMPREHENSION - SCORE: 6-TINO EXPRESSION EXPRESSION: TYPE: Both EXPRESSION - STEP 1: Does the patient require help expressing complex and abstract ideas (such as current events, finances , discharge planning, medical issues, relationships, etc)? No. EXPRESSION - STEP 2: Does the patient need extra time, require an assistive device (such as augmentive communication syste m or a communication board), OR does s/he have mild difficulty expressing complex and abstract ideas (including mild dysarthria or mild word-find problems)? Yes. EXPRESSION - SCORE: 6-TINO SOCIAL INTERACTION: SOCIAL INTERACTION - STEP 1: Does the patient require a helper to interact with others in social and therapeutic situations? No. SOCIAL INTERACTION - STEP 2: Does the patient need extra time in social situations, OR does s/he interact with staff, other patien ts, and family members ONLY in structured environments, OR does s/he require medication for social in teraction? Yes, patient needs extra time SOCIAL INTERACTION - SCORE: 6-TINO PROBLEM SOLVING: PROBLEM SOLVING - STEP 1: Does the patient need help to solve complex problems such as managing a checking account or confronti ng interpersonal problems? No. PROBLEM SOLVING - STEP 2: Does the patient require extra time to make decisions or solve problems, OR does s/he have slight dif ficulty reading, initiating, or self-correcting in unfamiliar situations? Yes, patient needs extra ti me. PROBLEM SOLVING - SCORE: 6-TINO MEMORY: MEMORY - STEP 1: Does the patient need help to remember frequently encountered people, daily routines, and executing r equests? No. MEMORY - STEP 2: Does the patient have slight difficulty recognizing frequently encountered people, daily routines, or executing requests without the need for repetition or using self-initiated or environmental cues to remember? Yes. MEMORY - SCORE: 6-TINO SIGNATURE PANEL: The following modified sections: Eating - Score, Grooming - Score, Bathing - Score, Dressing - Upper Body - Score, Dressing - Lower Body - Score, Toileting - Score, Bladder Management - Score, Bowel Man agement - Score, Transfers: Bed, Chair, Wheelchair - Score, Transfers: Toilet - Score, Transfers: Shonna wer - Score, Transfers: Tub - Score, Locomotion: Walk - Score, Locomotion: Wheelchair - Score, Compre hension - Score, Expression - Score, Social Interaction - Score, Problem Solving - Score, Memory - Sc ore were [electronically] signed by Ping Sharp C.N.A. on TueJul 09 2018 13:26:31 T-0500 (Centra l Daylight Time)
[2018-07-09] MEDS: RIVAROXABAN 20 MG TABLET PO SCH (16:45)
[2018-07-09] MEDS: ATORVASTATIN 10 MG TAB PO SCH (20:03)
[2018-07-09] MEDS: PARoxetine HCl 10 MG TAB PO SCH (20:05)
--- NOTE | 2018-07-09 21:05 | P.PN ---
Subjective Date of Service: 07/09/18 Chief Complaint: PAIN HAS IMPROVED. Subjective: Improving DOING WELL. L LEG SWELLING. I EXPLAINED NO CLOTS ARE SEEN. WILL DO COMPRESSION. HER STOCKINGS ARE HELPING HTE PAIN NOW. LESS COMPLAINTS NOW Review of Systems 10-point ROS is otherwise unremarkable General: Weakness, Malaise Physical Examination - Vital Signs Temperature: 97.5 F Blood Pressure: 112/59 Pulse: 80 Respirations: 16 Pulse Ox (%): 96 - Physical Exam General: Alert, Mild distress HEENT: Atraumatic, PERRLA, EOMI Neck: Supple, JVD not distended Respiratory: Clear to auscultation bilaterally, Normal air movement Cardiovascular: Regular rate/rhythm, Normal S1 S2 Gastrointestinal: Normal bowel sounds, No tenderness Musculoskeletal: No tenderness Integumentary: No rashes Neurological: Normal speech, Normal tone, Normal affect Lymphatics: No axilla or inguinal lymphadenopathy - Studies Laboratory Data (last 24 hrs) 07/09/18 06:09: Sodium 143, Potassium 4.1, BUN 13, Creatinine 0.60, Glucose 100 07/09/18 06:09: WBC 8.1, Hgb 11.0 L, Hct 32.0 L, Plt Count 389 Medications List Reviewed: Yes Assessment And Plan - Current Problems (Diagnosis) (1) A-fib Current Visit: No Status: Acute Plan: STABLE ON MEDS SOTALOL AND XARELTO STABLE, NO CHANGS LAB BIW Qualifiers: Atrial fibrillation type: chronic Qualified Code(s): I48.2 - Chronic atrial fibrillation (2) Fracture of femoral neck, left, closed Onset Date: 06/26/18 Current Visit: No Status: Acute Plan: RESUME PT ALREADY HAS BEEN GIVEN RECLAST FOR BONES. RESIUME PT STABLE, RESUME PT. Qualifiers: (3) Lower leg edema Current Visit: Yes Status: Acute Plan: VENOUS DOPPLER L LEG. STOCKINGS. IF CAN. (4) Claudication Current Visit: Yes Status: Acute Plan: ART DOPPLER L LEG.
[2018-07-09] MEDS: TRAMADOL HCL 50 MG TAB PO PRN (23:37)
[2018-07-10] MEDS: ACETAMINOPHEN 500 MG TAB PO PRN (01:55)
[2018-07-10] MEDS: SOTALOL HCL 80 MG TAB PO SCH ×2 (05:33→17:30)
[2018-07-10] MEDS: CALCIUM CARBONATE 500 MG TAB PO SCH (08:00)
[2018-07-10] MEDS: PROMOD 30 ML DOSE PO SCH ×2 (08:00→20:00)
[2018-07-10] MEDS: ASCORBIC ACID 500 MG TABLET PO SCH (08:16)
[2018-07-10] MEDS: GABAPENTIN 300 MG CAP PO SCH (08:16)
[2018-07-10] MEDS: MAGNESIUM OXIDE 400 MG TAB PO SCH (08:16)
[2018-07-10] MEDS: CRANBERRY FRUIT EXTRACT 200 MG CAP PO SCH (08:16)
[2018-07-10] MEDS: PANTOPRAZOLE 40MG TABLET PO SCH (08:17)
[2018-07-10] MEDS: VITAMIN D 5,000 UNIT CAP PO SCH (08:17)
[2018-07-10] MEDS: TRAMADOL HCL 50 MG TAB PO PRN (08:17)
[2018-07-10] MEDS: SPIRONOLACTONE 25 MG TABLET PO SCH (08:17)
[2018-07-10] MEDS: FERROUS SULFATE 325 MG TAB PO SCH (08:17)
[2018-07-10] MEDS: ASPIRIN EC 81 MG TAB PO SCH (08:17)
[2018-07-10] MEDS: POTASSIUM CL SA 10 MEQ TAB PO SCH (08:18)
[2018-07-10] MEDS: FE SULF/FA/VIT B COMP & C TAB PO SCH (08:18)
--- NOTE | 2018-07-10 12:42 | P.PN ---
Subjective Date of Service: 07/10/18 Chief Complaint: PAIN HAS IMPROVED. Subjective: Improving DOING WELL. L LEG SWELLING. I EXPLAINED NO CLOTS ARE SEEN. WILL DO COMPRESSION. HER STOCKINGS ARE HELPING HTE PAIN NOW. LESS COMPLAINTS NOW Review of Systems 10-point ROS is otherwise unremarkable Physical Examination - Vital Signs Temperature: 97.4 F Blood Pressure: 133/52 Pulse: 60 Respirations: 16 Pulse Ox (%): 98 - Physical Exam General: Alert, In no apparent distress HEENT: Atraumatic, PERRLA, EOMI Neck: Supple, JVD not distended Respiratory: Clear to auscultation bilaterally, Normal air movement Cardiovascular: Regular rate/rhythm, Normal S1 S2, Edema (L LEG) Gastrointestinal: Normal bowel sounds, No tenderness Musculoskeletal: No tenderness Integumentary: No rashes Neurological: Normal speech, Normal tone, Normal affect Lymphatics: No axilla or inguinal lymphadenopathy - Studies Medications List Reviewed: Yes Assessment And Plan - Current Problems (Diagnosis) (1) A-fib Current Visit: No Status: Acute Plan: STABLE ON MEDS SOTALOL AND XARELTO STABLE, NO CHANGS LAB BIW Qualifiers: Atrial fibrillation type: chronic Qualified Code(s): I48.2 - Chronic atrial fibrillation (2) Fracture of femoral neck, left, closed Onset Date: 06/26/18 Current Visit: No Status: Acute Plan: RESUME PT ALREADY HAS BEEN GIVEN RECLAST FOR BONES. RESIUME PT STABLE, RESUME PT. Qualifiers: (3) Lower leg edema Current Visit: Yes Status: Acute Plan: VENOUS DOPPLER L LEG. STOCKINGS. IF CAN. IMPROVED. GRADUALLY. (4) Claudication Current Visit: Yes Status: Acute Plan: ART DOPPLER L LEG.
--- NOTE | 2018-07-10 13:41 | FAST ---
SHIFT START DATE/TIME: 07/10/2018 07:00 (CDT) SHIFT END DATE/TIME: 07/10/2018 19:00 (CDT) NAME FRANCE BAUMANN DATE OF : 1945 DATE OF ADMISSION: 07/02/2018 14:34 (CDT) PHONE: AGE: 73 SSN# [id number] GENDER: Female ENCOUNTER PHYSICIAN: Dr. Luke Major M.D. ADMISSION DIAGNOSIS: - Orthopaedic Disorders 08 - Unilateral Hip Fracture (08.11) Left Femoral Neck Fracture. EATING: EATING - STEP 1: Does the patient require assistance when eating? Yes. EATING - STEP 2: Does the patient require the assistance of a helper? Yes. EATING - STEP 3: Does the patient perform half or more of the eating tasks? Yes. EATING - STEP 4: Does the patient need only supervision, cuing, coaxing OR help to apply an orthosis OR help to cut fo od, open containers, pour liquids, or butter bread? Yes. EATING - SCORE: 5-SUP GROOMING: Comb/brush hair Wash, rinse, and dry face Wash, rinse, and dry hands GROOMING - STEP 1: Does the patient require assistance when grooming? Yes. GROOMING - STEP 2: Does the patient require the assistance of a helper? No. The patient only requires an assistive devic e, OR takes more than reasonable time to groom, OR there is a concern for safety as the patient groom s GROOMING - SCORE: 6-TINO BATHING: Activity did not occur on this shift BATHING - SCORE: 0-UNK DRESSING - UPPER BODY: Activity did not occur on this shift ARTICLES SCORE Total number of steps: 0 DRESSING - UPPER BODY - SCORE: 0-UNK DRESSING - LOWER BODY: Activity did not occur on this shift ARTICLES SCORE Total number of steps: 0 DRESSING - LOWER BODY - SCORE: 0-UNK TOILETING: TOILETING - STEP 1: Does the patient require assistance with toileting? Yes. TOILETING - STEP 2: Does the patient require the assistance of a helper? Yes. TOILETING - STEP 3: How much assistance does the patient require from the helper? Hands-on assistance from the helper TOILETING - STEP 4: Of the 3 tasks: 1) Adjusting clothing prior to use, 2) Cleansing of perineal area, 3) Adjusting clot feroz after use; How many tasks does the patient perform WITHOUT assistance of the helper? Three tasks with steadying assistance from the helper TOILETING - SCORE: 4-MIN BLADDER MANAGEMENT: BLADDER MANAGEMENT - STEP 1: Does the patient control the bladder completely and intentionally without equipment or devices or med ications, and is always continent? No. BLADDER MANAGEMENT - STEP 2: Does the patient require the assistance of a helper? No, patient only requires extra time BLADDER MANAGEMENT - SCORE: 6-TINO BLADDER MANAGEMENT - FREQUENCY OF ACCIDENTS: BLADDER MANAGEMENT(FA) - STEP 1: How many accidents has the patient had during the current shift? 0 BOWEL MANAGEMENT: BOWEL MANAGEMENT - STEP 1: Does the patient control bowels completely and intentionally without equipment devices or medications AND is always continent? No. BOWEL MANAGEMENT - STEP 2: Does the patient require the assistance of a helper? No, patient requires extra time BOWEL MANAGEMENT - SCORE: 6-TINO BOWEL MANAGEMENT - FREQUENCY OF ACCIDENTS: BOWEL MANAGEMENT(FA) - STEP 1: How many accidents has the patient had during the current shift? 0 TRANSFERS: BED, CHAIR, WHEELCHAIR: TRANSFERS: BED, CHAIR, WHEELCHAIR - STEP 1: Does the patient require assistance with bed, chair, or wheelchair transfers? Yes. TRANSFERS: BED, CHAIR, WHEELCHAIR - STEP 2: Does the patient require the assistance of a helper? Yes. TRANSFERS: BED, CHAIR, WHEELCHAIR - STEP 3: How much assistance does the patient require from the helper? Lifting of the legs TRANSFERS: BED, CHAIR, WHEELCHAIR - STEP 4: How many legs does the patient require the helper to lift? one leg TRANSFERS: BED, CHAIR, WHEELCHAIR - SCORE: 4-MIN TRANSFERS: TOILET: TRANSFERS: TOILET - STEP 1: Does the patient require assistance with toilet transfers? Yes. TRANSFERS: TOILET - STEP 2: Does the patient require the assistance of a helper? Yes. TRANSFERS: TOILET - STEP 3: How much assistance does the patient require from the helper? Patient performs half or more of the tr ansferring tasks TRANSFERS: TOILET - STEP 4: Does the patient need only incidental help such as contact guard or steadying during toilet transfer? Yes. TRANSFERS: TOILET - SCORE: 4-MIN TRANSFERS: SHOWER: Activity did not occur on this shift TRANSFERS: SHOWER - SCORE: 0-UNK TRANSFERS: TUB: Activity did not occur on this shift TRANSFERS: TUB - SCORE: 0-UNK LOCOMOTION: WALK: Activity did not occur on this shift LOCOMOTION: WALK - SCORE: 0-UNK LOCOMOTION: WHEELCHAIR: LOCOMOTION: WHEELCHAIR - STEP 1: Does the patient need help to go 150 feet in a wheelchair? Yes. LOCOMOTION: WHEELCHAIR - STEP 2: How much assistance does the patient need from the helper? Only supervision, cuing, or coaxing LOCOMOTION: WHEELCHAIR - SCORE: 5-SUP COMPREHENSION: COMPREHENSION: TYPE: Both COMPREHENSION - STEP 1: Does the patient require help to understand complex and abstract ideas (such as current events, finan shea, discharge planning, medical issues, relationships, etc)? No. COMPREHENSION - STEP 2: Does the patient need extra time, require an assistive device (such as glasses for visual comprehensi on or a hearing aid for auditory comprehension) or does s/he have mild difficulty understanding compl ex and abstract information? Yes. COMPREHENSION - SCORE: 6-TINO EXPRESSION EXPRESSION: TYPE: Both EXPRESSION - STEP 1: Does the patient require help expressing complex and abstract ideas (such as current events, finances , discharge planning, medical issues, relationships, etc)? No. EXPRESSION - STEP 2: Does the patient need extra time, require an assistive device (such as augmentive communication syste m or a communication board), OR does s/he have mild difficulty expressing complex and abstract ideas (including mild dysarthria or mild word-find problems)? Yes. EXPRESSION - SCORE: 6-TINO SOCIAL INTERACTION: SOCIAL INTERACTION - STEP 1: Does the patient require a helper to interact with others in social and therapeutic situations? No. SOCIAL INTERACTION - STEP 2: Does the patient need extra time in social situations, OR does s/he interact with staff, other patien ts, and family members ONLY in structured environments, OR does s/he require medication for social in teraction? Yes, patient needs extra time SOCIAL INTERACTION - SCORE: 6-TINO PROBLEM SOLVING: PROBLEM SOLVING - STEP 1: Does the patient need help to solve complex problems such as managing a checking account or confronti ng interpersonal problems? No. PROBLEM SOLVING - STEP 2: Does the patient require extra time to make decisions or solve problems, OR does s/he have slight dif ficulty reading, initiating, or self-correcting in unfamiliar situations? Yes, patient needs extra ti me. PROBLEM SOLVING - SCORE: 6-TINO MEMORY: MEMORY - STEP 1: Does the patient need help to remember frequently encountered people, daily routines, and executing r equests? No. MEMORY - STEP 2: Does the patient have slight difficulty recognizing frequently encountered people, daily routines, or executing requests without the need for repetition or using self-initiated or environmental cues to remember? Yes. MEMORY - SCORE: 6-TINO SIGNATURE PANEL: The following modified sections: Eating - Score, Grooming - Score, Bathing - Score, Dressing - Upper Body - Score, Dressing - Lower Body - Score, Toileting - Score, Bladder Management - Score, Bowel Man agement - Score, Transfers: Bed, Chair, Wheelchair - Score, Transfers: Toilet - Score, Transfers: Shonna wer - Score, Transfers: Tub - Score, Locomotion: Walk - Score, Locomotion: Wheelchair - Score, Compre hension - Score, Expression - Score, Social Interaction - Score, Problem Solving - Score, Memory - Sc ore were [electronically] signed by Ping Sharp C.N.A. on TueJul 10 2018 13:40:45 T-0500 (Centra l Daylight Time)
--- NOTE | 2018-07-10 15:04 | FAST ---
ENCOUNTER DATE AND TIME: 07/07/2018 08:00 (CDT) NAME FRANCE BAUMANN DATE OF : 1945 DATE OF ADMISSION: 07/02/2018 14:34 (CDT) PHONE: AGE: 73 SSN# [id number] GENDER: Female ENCOUNTER PHYSICIAN: Dr. Luke Major M.D. ADMISSION DIAGNOSIS: - Orthopaedic Disorders 08 - Unilateral Hip Fracture (08.11) Left Femoral Neck Fracture. EATING: Activity did not occur on this shift EATING - SCORE: 0-UNK GROOMING: Activity did not occur on this shift GROOMING - SCORE: 0-UNK BATHING: Activity did not occur on this shift BATHING - SCORE: 0-UNK DRESSING - UPPER BODY: Activity did not occur on this shift Patient is not dressing in public clothing ARTICLES SCORE Total number of steps: 0 DRESSING - UPPER BODY - SCORE: 0-UNK DRESSING - LOWER BODY: Activity did not occur on this shift Patient is not dressing in public clothing ARTICLES SCORE Total number of steps: 0 DRESSING - LOWER BODY - SCORE: 0-UNK TOILETING: Activity did not occur on this shift TOILETING - SCORE: 0-UNK BLADDER MANAGEMENT: Activity did not occur on this shift BLADDER MANAGEMENT - SCORE: 7-IND BOWEL MANAGEMENT: Activity did not occur on this shift BOWEL MANAGEMENT - SCORE: 7-IND TRANSFERS: BED, CHAIR, WHEELCHAIR: TRANSFERS: BED, CHAIR, WHEELCHAIR - STEP 1: Does the patient require assistance with bed, chair, or wheelchair transfers? Yes. TRANSFERS: BED, CHAIR, WHEELCHAIR - STEP 2: Does the patient require the assistance of a helper? No. Patient only requires an assistive device fo r bed, chair, wheelchair transfers such as a sliding board, grab bar, or brace, OR s/he takes more th an reasonable time, OR there is a safety concern when s/he performs the transfers TRANSFERS: BED, CHAIR, WHEELCHAIR - SCORE: 6-TINO TRANSFERS: TOILET: Activity did not occur on this shift TRANSFERS: TOILET - SCORE: 0-UNK TRANSFERS: SHOWER: Activity did not occur on this shift TRANSFERS: SHOWER - SCORE: 0-UNK TRANSFERS: TUB: Activity did not occur on this shift TRANSFERS: TUB - SCORE: 0-UNK LOCOMOTION: WALK: LOCOMOTION: WALK - STEP 1: Does the patient need help to walk 150 feet? Yes. LOCOMOTION: WALK - STEP 2: How much assistance does the patient require to walk a minimum of 150 feet? Only supervision, cuing, or coaxing LOCOMOTION: WALK - SCORE: 5-SUP LOCOMOTION: WHEELCHAIR: LOCOMOTION: WHEELCHAIR - STEP 1: Does the patient need help to go 150 feet in a wheelchair? No. LOCOMOTION: WHEELCHAIR - SCORE: 6-TINO LOCOMOTION: STAIRS: Activity did not occur on this shift LOCOMOTION: STAIRS - SCORE: 0-UNK COMPREHENSION: COMPREHENSION - SCORE: 0-UNK EXPRESSION EXPRESSION - SCORE: 0-UNK SOCIAL INTERACTION: SOCIAL INTERACTION - SCORE: 0-UNK PROBLEM SOLVING: PROBLEM SOLVING - SCORE: 0-UNK MEMORY: MEMORY - SCORE: 0-UNK SIGNATURE PANEL: The following modified sections: Transfers: Bed, Chair, Wheelchair - Score, Transfers: Toilet - Score , Locomotion: Walk - Score, Locomotion: Wheelchair - Score, Locomotion: Stairs - Score were [victor hugo heaton] signed by Melvin Millan PTA on TueJul 10 2018 15:03:59 GMT-0500 (Central Daylight Time)
--- NOTE | 2018-07-10 15:11 | FAST ---
ENCOUNTER DATE AND TIME: 07/10/2018 08:00 (CDT) NAME FRANCE BAUMANN DATE OF : 1945 DATE OF ADMISSION: 07/02/2018 14:34 (CDT) PHONE: AGE: 73 SSN# [id number] GENDER: Female ENCOUNTER PHYSICIAN: Dr. Luke Major M.D. ADMISSION DIAGNOSIS: - Orthopaedic Disorders 08 - Unilateral Hip Fracture (08.11) Left Femoral Neck Fracture. EATING: Activity did not occur on this shift EATING - SCORE: 0-UNK GROOMING: Activity did not occur on this shift GROOMING - SCORE: 0-UNK BATHING: Activity did not occur on this shift BATHING - SCORE: 0-UNK DRESSING - UPPER BODY: Activity did not occur on this shift Patient is not dressing in public clothing ARTICLES SCORE Total number of steps: 0 DRESSING - UPPER BODY - SCORE: 0-UNK DRESSING - LOWER BODY: Activity did not occur on this shift Patient is not dressing in public clothing ARTICLES SCORE Total number of steps: 0 DRESSING - LOWER BODY - SCORE: 0-UNK TOILETING: Activity did not occur on this shift TOILETING - SCORE: 0-UNK BLADDER MANAGEMENT: Activity did not occur on this shift BLADDER MANAGEMENT - SCORE: 7-IND BOWEL MANAGEMENT: Activity did not occur on this shift BOWEL MANAGEMENT - SCORE: 7-IND TRANSFERS: BED, CHAIR, WHEELCHAIR: TRANSFERS: BED, CHAIR, WHEELCHAIR - STEP 1: Does the patient require assistance with bed, chair, or wheelchair transfers? Yes. TRANSFERS: BED, CHAIR, WHEELCHAIR - STEP 2: Does the patient require the assistance of a helper? No. Patient only requires an assistive device fo r bed, chair, wheelchair transfers such as a sliding board, grab bar, or brace, OR s/he takes more th an reasonable time, OR there is a safety concern when s/he performs the transfers TRANSFERS: BED, CHAIR, WHEELCHAIR - SCORE: 6-TINO TRANSFERS: TOILET: Activity did not occur on this shift TRANSFERS: TOILET - SCORE: 0-UNK TRANSFERS: SHOWER: Activity did not occur on this shift TRANSFERS: SHOWER - SCORE: 0-UNK TRANSFERS: TUB: Activity did not occur on this shift TRANSFERS: TUB - SCORE: 0-UNK LOCOMOTION: WALK: LOCOMOTION: WALK - STEP 1: Does the patient need help to walk 150 feet? No. LOCOMOTION: WALK - STEP 2: Does the patient need an assistive device (such as an orthosis, prosthesis, crutches, or walker) to g o 150 feet, OR does s/he take more than reasonable time, OR is there a concern for safety? Yes, the p atient needs an assistive device LOCOMOTION: WALK - SCORE: 6-TINO LOCOMOTION: WHEELCHAIR: LOCOMOTION: WHEELCHAIR - STEP 1: Does the patient need help to go 150 feet in a wheelchair? No. LOCOMOTION: WHEELCHAIR - SCORE: 6-TINO LOCOMOTION: STAIRS: Activity did not occur on this shift LOCOMOTION: STAIRS - SCORE: 0-UNK COMPREHENSION: COMPREHENSION - SCORE: 0-UNK EXPRESSION EXPRESSION - SCORE: 0-UNK SOCIAL INTERACTION: SOCIAL INTERACTION - SCORE: 0-UNK PROBLEM SOLVING: PROBLEM SOLVING - SCORE: 0-UNK MEMORY: MEMORY - SCORE: 0-UNK SIGNATURE PANEL: The following modified sections: Transfers: Bed, Chair, Wheelchair - Score, Transfers: Toilet - Score , Locomotion: Walk - Score, Locomotion: Wheelchair - Score, Locomotion: Stairs - Score were [electron florina] signed by Melvin Millan PTA on TueJul 10 2018 15:09:59 GMT-0500 (Central Daylight Time)
--- NOTE | 2018-07-10 17:18 | R.PN ---
ENCOUNTER DATE AND TIME: 07/10/2018 17:16 (CDT) NAME FRANCE BAUMANN DATE OF : 1945 DATE OF ADMISSION: 07/02/2018 14:34 (CDT) Left Femoral Neck FractureCHIEF COMPLAINT: Left hip fracture SUBJECTIVE: Pt denied any depression. Pt denied any Shortness of Breath. Ambulated 250' with modified independence using a rolling walker. Propelled wheelchair 250' with marino fied independence. VITAL SIGNS Temperature: 97.4 F SBP/DBP: 133/52 Pulse: 60 Resp: 16 MEDICATION ALLERGIES: Amoxicillin Codeine Ibuprofen Etodolac Annaprox ENVIRONMENTAL ALLERGIES: None Known - Substance Allergies None Known - Other Allergies None Known NURSING: - Shower allowing shower - Skin care per protocol PRECAUTIONS: - Anterior Hip Precaution No abduction No active extension No adduction across midline No external rotation No hip flexion >90 degrees No internal rotation - Posterior Hip Precaution No adduction across midline No external rotation No hip flexion >90 degrees No internal rotation No wheel chair propulsion - Weight Bearing Precaution TTWB left LE ACTIVITIES OOB only with supervision THERAPIES: - Occupational Therapy Evaluate and Treat. - Physical Therapy Evaluate and Treat. PHYSICAL EXAM - Gen Alert and awake Lying in bed No apparent distress Oriented to: person, time, and place - Skin left hip incision intact No numbness - Eyes No discharge - ENMT No abnormalities - Neck No abnormalities - CVS RRR - Chest Clear - Abd +bowel sounds - GI Soft Deferred - No abnormalities - Ext Left hip surgical site has good hemostasis. - MSK 4+/5 weakness in left lower extremity - Neuro No abnormalities - Psych No abnormalities ASSESSMENT: Pt. is a 73 yo Right-handed white female.Her impairment category is Orthopaedic Disorders 08 - Unila teral Hip Fracture (08.11).Pre-morbidly, Pt. was independent/mod-I in Sphincter Control, Transfers Co ntrol, Communication, Social Cognition, Self-Care, and Locomotion; and she had good Sphincter Control .Currently, she has deficits of Safety Awareness, Transfers Control, Balance, Self-Care, Locomotion, and Endurance.Pt. is now referred to [facility] for acute in-patient rehabilit ation in order to maximize patient's functional independence in activities of daily living, strength, ROM, and mobility.- Rehab Goal Patient has realistic goal of being discharged at assistance level 6-Marino to reside at Home with Fam brian/Relatives. MDM/PLAN: - Physical Therapy Decreased range of motion - to improve, our physical therapists will perform initial evaluation of p t's status upon admission and devise an individualized program for increasing patient's Range of Willis on. Gait dysfunction - to improve, our physical therapists will perform initial evaluation of pt's statu s upon admission and devise an individualized program for Gait Training, and Wheel Chair mobility Inability to transfer - to improve, our physical therapists will perform initial evaluation of pt's status upon admission and devise an individualized program for Bed mobility Need for home safety evaluation - to improve, our physical therapists will perform initial evaluatio n of pt's status upon admission and devise an individualized program for Home Evaluation Need in caregiver upon discharge - to improve, our physical therapists will perform initial evaluati on of pt's status upon admission and devise an individualized program for Caregiver Training New precaution - to improve, our physical therapists will perform initial evaluation of pt's status upon admission and devise an individualized program for Patient precaution education Poor balance - to improve, our physical therapists will perform initial evaluation of pt's status up on admission and devise an individualized program for Balance Training Poor endurance - to improve, our physical therapists will perform initial evaluation of pt's status upon admission and devise an individualized program for Endurance Training Weakness - to improve, our physical therapists will perform initial evaluation of pt's status upon a dmission and devise an individualized program for Aquatic Therapy, Neuromuscular Reeducation, and Str engthening Achieving independence - to improve, our physical therapists will perform initial evaluation of pt's status upon admission and devise an individualized program for Community Reintegration Activities - Occupational Therapy ADL deficits - to improve, our occupation therapists will perform initial evaluation of pt's status upon admission and devise an individualized program for Bathing, Bed mobility, Community Reintegratio n, Cooking, Dressing, Eating, Fine Motor Skills, Grooming, Homemaking, Kitchen Mobility, Laundry, Pat ient Education, Safety Awareness, Splinting - Positioning, Transfers(Toilet, Tub, Shower), and Wheel Chair Management Need for child care team lead - to improve, our occupation therapists will perform initial evaluation of pt's status upon admission and devise an individualized program for Caregiver Training Weakness - to improve, our occupation therapists will perform initial evaluation of pt's status upon admission and devise an individualized program for Aquatic Therapy, Balance, Endurance, UE ROM, and UE strengthening - Anterior Hip Precaution No abduction No active extension No adduction across midline No external rotation No hip flexion >90 degrees No internal rotation - Diet - Liquid Texture Continue Regular - Tube Feed Continue N/A - Diet Type Continue Regular - Posterior Hip Precaution No adduction across midline No external rotation No hip flexion >90 degrees No internal rotation No wheel chair propulsion - Weight Bearing Precaution TTWB left LE - Skin care per protocol - Diet - Solid Texture Continue Regular - Shower allowing shower FUNCTIONAL STATUS: UPDATED AT WEEKLY TEAM CONFERENCE - Bladder Same accident frequency: 7-Ind - No accidents in the past 7 days - Bowel Same accident frequency: 7-Ind - No accidents in the past 7 days - Walking Same score based on distance walked: 1(<=50ft) - Wheelchair Same score based on distance traveled: 0(N/A) FUNCTIONAL STATUS: - Self-Care A. Eating sup B. Grooming Ind C. Bathing sup D. Dressing - Upper sup E. Dressing - Lower Nelson F. Toileting Nelson - Sphincter Control G: Bladder control Ind H: Bowel control Ind - Transfers Control I. Bed/Chair/Wheelchair modA J. Toilet modA K. Tub/Shower ADNO - Locomotion L. Walk/Wheelchair (C) modA L. Walk/Wheelchair (W) modA M. Stairs ADNO - Communication N. Comprehension (B) Ind O. Expression (B) Ind - Social Cognition P. Social Interaction Ind Q. Problem Solving Ind R. Memory Ind - Endurance Poor - Balance Poor - Safety Awareness Fair CURRENT FUNC. DEFICITS: Safety Awareness, Transfers Control, Balance, Self-Care, Locomotion, and Endurance SIGNATURE PANEL: (CDT)
[2018-07-10] MEDS: RIVAROXABAN 20 MG TABLET PO SCH (17:30)
[2018-07-11] MEDS: CRANBERRY FRUIT EXTRACT 200 MG CAP PO SCH ×3 (00:02→19:52)
[2018-07-11] MEDS: PARoxetine HCl 10 MG TAB PO SCH ×2 (00:02→19:52)
[2018-07-11] MEDS: CALCIUM CARBONATE 500 MG TAB PO SCH ×3 (00:03→19:52)
[2018-07-11] MEDS: GABAPENTIN 300 MG CAP PO SCH ×3 (00:03→19:52)
[2018-07-11] MEDS: MAGNESIUM OXIDE 400 MG TAB PO SCH ×3 (00:03→19:52)
[2018-07-11] MEDS: ATORVASTATIN 10 MG TAB PO SCH ×2 (00:03→19:52)
--- NOTE | 2018-07-11 01:05 | FAST ---
SHIFT START DATE/TIME: 07/10/2018 19:00 (CDT) SHIFT END DATE/TIME: 07/11/2018 07:00 (CDT) NAME FRANCE BAUMANN DATE OF : 1945 DATE OF ADMISSION: 07/02/2018 14:34 (CDT) PHONE: AGE: 73 N# [id number] GENDER: Female ENCOUNTER PHYSICIAN: Dr. Luke Major M.D. ADMISSION DIAGNOSIS: - Orthopaedic Disorders 08 - Unilateral Hip Fracture (08.11) Left Femoral Neck Fracture. EATING: Activity did not occur on this shift EATING - SCORE: 0-UNK GROOMING: Wash, rinse, and dry hands GROOMING - STEP 1: Does the patient require assistance when grooming? Yes. GROOMING - STEP 2: Does the patient require the assistance of a helper? Yes. GROOMING - STEP 3: How much assistance does the patient require from the helper? Only prior equipment preparation/set up from the helper GROOMING - SCORE: 5-SUP BATHING: Activity did not occur on this shift BATHING - SCORE: 0-UNK DRESSING - UPPER BODY: Patient is not dressing in public clothing ARTICLES SCORE Total number of steps: 0 DRESSING - UPPER BODY - SCORE: 0-UNK DRESSING - LOWER BODY: Patient is not dressing in public clothing ARTICLES SCORE Total number of steps: 0 DRESSING - LOWER BODY - SCORE: 0-UNK TOILETING: TOILETING - STEP 1: Does the patient require assistance with toileting? Yes. TOILETING - STEP 2: Does the patient require the assistance of a helper? Yes. TOILETING - STEP 3: How much assistance does the patient require from the helper? Hands-on assistance from the helper TOILETING - STEP 4: Of the 3 tasks: 1) Adjusting clothing prior to use, 2) Cleansing of perineal area, 3) Adjusting clot feroz after use; How many tasks does the patient perform WITHOUT assistance of the helper? Two tasks TOILETING - SCORE: 3-MOD BLADDER MANAGEMENT: BLADDER MANAGEMENT - STEP 1: Does the patient control the bladder completely and intentionally without equipment or devices or med ications, and is always continent? No. BLADDER MANAGEMENT - STEP 2: Does the patient require the assistance of a helper? Yes. BLADDER MANAGEMENT - STEP 3: How much assistance does the patient require from the helper? Only set-up of equipment - such as plac ing it within reach of the patient or emptying a device - to maintain either satisfactory voiding pat tern or managing an external device, such as an absorbent pad, ileal device, or catheter BLADDER MANAGEMENT - SCORE: 5-SUP BOWEL MANAGEMENT: Activity did not occur on this shift BOWEL MANAGEMENT - SCORE: 7-IND TRANSFERS: BED, CHAIR, WHEELCHAIR: TRANSFERS: BED, CHAIR, WHEELCHAIR - STEP 1: Does the patient require assistance with bed, chair, or wheelchair transfers? Yes. TRANSFERS: BED, CHAIR, WHEELCHAIR - STEP 2: Does the patient require the assistance of a helper? Yes. TRANSFERS: BED, CHAIR, WHEELCHAIR - STEP 3: How much assistance does the patient require from the helper? Lifting of the legs TRANSFERS: BED, CHAIR, WHEELCHAIR - STEP 4: How many legs does the patient require the helper to lift? both legs TRANSFERS: BED, CHAIR, WHEELCHAIR - SCORE: 3-MOD TRANSFERS: TOILET: TRANSFERS: TOILET - STEP 1: Does the patient require assistance with toilet transfers? Yes. TRANSFERS: TOILET - STEP 2: Does the patient require the assistance of a helper? Yes. TRANSFERS: TOILET - STEP 3: How much assistance does the patient require from the helper? Patient performs half or more of the tr ansferring tasks TRANSFERS: TOILET - STEP 4: Does the patient need only incidental help such as contact guard or steadying during toilet transfer? Yes. TRANSFERS: TOILET - SCORE: 4-MIN TRANSFERS: SHOWER: Activity did not occur on this shift TRANSFERS: SHOWER - SCORE: 0-UNK TRANSFERS: TUB: Activity did not occur on this shift TRANSFERS: TUB - SCORE: 0-UNK LOCOMOTION: WALK: Activity did not occur on this shift LOCOMOTION: WALK - SCORE: 0-UNK LOCOMOTION: WHEELCHAIR: Activity did not occur on this shift LOCOMOTION: WHEELCHAIR - SCORE: 0-UNK COMPREHENSION: COMPREHENSION: TYPE: Both COMPREHENSION - STEP 1: Does the patient require help to understand complex and abstract ideas (such as current events, finan shea, discharge planning, medical issues, relationships, etc)? No. COMPREHENSION - STEP 2: Does the patient need extra time, require an assistive device (such as glasses for visual comprehensi on or a hearing aid for auditory comprehension) or does s/he have mild difficulty understanding compl ex and abstract information? Yes. COMPREHENSION - SCORE: 6-TINO EXPRESSION EXPRESSION: TYPE: Both EXPRESSION - STEP 1: Does the patient require help expressing complex and abstract ideas (such as current events, finances , discharge planning, medical issues, relationships, etc)? No. EXPRESSION - STEP 2: Does the patient need extra time, require an assistive device (such as augmentive communication syste m or a communication board), OR does s/he have mild difficulty expressing complex and abstract ideas (including mild dysarthria or mild word-find problems)? Yes. EXPRESSION - SCORE: 6-TINO SOCIAL INTERACTION: SOCIAL INTERACTION - STEP 1: Does the patient require a helper to interact with others in social and therapeutic situations? No. SOCIAL INTERACTION - STEP 2: Does the patient need extra time in social situations, OR does s/he interact with staff, other patien ts, and family members ONLY in structured environments, OR does s/he require medication for social in teraction? Yes, patient requires medication for social interaction SOCIAL INTERACTION - SCORE: 6-TINO PROBLEM SOLVING: PROBLEM SOLVING - STEP 1: Does the patient need help to solve complex problems such as managing a checking account or confronti ng interpersonal problems? No. PROBLEM SOLVING - STEP 2: Does the patient require extra time to make decisions or solve problems, OR does s/he have slight dif ficulty reading, initiating, or self-correcting in unfamiliar situations? Yes, patient needs extra ti me. PROBLEM SOLVING - SCORE: 6-TINO MEMORY: MEMORY - STEP 1: Does the patient need help to remember frequently encountered people, daily routines, and executing r equests? No. MEMORY - STEP 2: Does the patient have slight difficulty recognizing frequently encountered people, daily routines, or executing requests without the need for repetition or using self-initiated or environmental cues to remember? No. MEMORY - SCORE: 7-IND SIGNATURE PANEL: The following modified sections: Eating - Score, Grooming - Score, Dressing - Upper Body - Score, Adam ssing - Lower Body - Score, Toileting - Score, Bladder Management - Score, Bowel Management - Score, Transfers: Bed, Chair, Wheelchair - Score, Transfers: Toilet - Score, Transfers: Shower - Score, Jo sfers: Tub - Score, Locomotion: Walk - Score, Locomotion: Wheelchair - Score, Comprehension - Score, Expression - Score, Social Interaction - Score, Problem Solving - Score, Memory - Score were [electro nically] signed by Ellen Canada CNA on TueJul 11 2018 01:03:35 T-0500 (Central Daylight Time)
[2018-07-11] MEDS: TRAMADOL HCL 50 MG TAB PO PRN ×2 (01:12→08:12)
[2018-07-11] MEDS: SOTALOL HCL 80 MG TAB PO SCH ×2 (05:17→17:08)
[2018-07-11 06:05] LABS: BUN Blood Urea Nitrogen 16 mg/dL (7-18); Bicarbonate 30 mmol/L (21-32); Glucose Level 95 mg/dL (74-106); Potassium 4.5 mmol/L (3.5-5.1); Sodium Level 141 mmol/L (136-145)
[2018-07-11 06:08] LABS: Absolute Lymphocytes (CBC) 2.3 K/uL (0.7-4.9); Absolute Neutrophil 5.4 K/uL (1.8-8.0); Basophils % 1.5 % (0-1.3); Eosinophils % 2.6 % (0-4.4); Hematocrit 33.2 % (36.0-45.0); Lymphocytes % 25.4 % (15.3-44.8); MCH 31.3 pg (27.0-35.0); MCV 91.1 fL (80-100); MPV 9.7 fL (7.6-11.3); Monocytes % 11.2 % (3.3-12.3); RBC Red Blood Cell Count 3.65 M/uL (3.86-4.86)
[2018-07-11] MEDS: PROMOD 30 ML DOSE PO SCH ×2 (08:00→19:51)
[2018-07-11] MEDS: VITAMIN D 5,000 UNIT CAP PO SCH (08:10)
[2018-07-11] MEDS: PANTOPRAZOLE 40MG TABLET PO SCH (08:10)
[2018-07-11] MEDS: ASCORBIC ACID 500 MG TABLET PO SCH (08:10)
[2018-07-11] MEDS: POTASSIUM CL SA 10 MEQ TAB PO SCH (08:11)
[2018-07-11] MEDS: FE SULF/FA/VIT B COMP & C TAB PO SCH (08:11)
[2018-07-11] MEDS: FERROUS SULFATE 325 MG TAB PO SCH (08:11)
[2018-07-11] MEDS: ASPIRIN EC 81 MG TAB PO SCH (08:11)
[2018-07-11] MEDS: SPIRONOLACTONE 25 MG TABLET PO SCH (08:11)
[2018-07-11] MEDS: ACETAMINOPHEN 500 MG TAB PO PRN (12:44)
--- NOTE | 2018-07-11 13:49 | FAST ---
ENCOUNTER DATE AND TIME: 07/11/2018 08:00 (CDT) NAME FRANCE BAUMANN DATE OF : 1945 DATE OF ADMISSION: 07/02/2018 14:34 (CDT) PHONE: AGE: 73 SSN# [id number] GENDER: Female ENCOUNTER PHYSICIAN: Dr. Luke Major M.D. ADMISSION DIAGNOSIS: - Orthopaedic Disorders 08 - Unilateral Hip Fracture (08.11) Left Femoral Neck Fracture. EATING: Activity did not occur on this shift EATING - SCORE: 0-UNK GROOMING: Activity did not occur on this shift GROOMING - SCORE: 0-UNK BATHING: Activity did not occur on this shift BATHING - SCORE: 0-UNK DRESSING - UPPER BODY: Activity did not occur on this shift Patient is not dressing in public clothing ARTICLES SCORE Total number of steps: 0 DRESSING - UPPER BODY - SCORE: 0-UNK DRESSING - LOWER BODY: Activity did not occur on this shift Patient is not dressing in public clothing ARTICLES SCORE Total number of steps: 0 DRESSING - LOWER BODY - SCORE: 0-UNK TOILETING: Activity did not occur on this shift TOILETING - SCORE: 0-UNK BLADDER MANAGEMENT: Activity did not occur on this shift BLADDER MANAGEMENT - SCORE: 7-IND BOWEL MANAGEMENT: Activity did not occur on this shift BOWEL MANAGEMENT - SCORE: 7-IND TRANSFERS: BED, CHAIR, WHEELCHAIR: TRANSFERS: BED, CHAIR, WHEELCHAIR - STEP 1: Does the patient require assistance with bed, chair, or wheelchair transfers? Yes. TRANSFERS: BED, CHAIR, WHEELCHAIR - STEP 2: Does the patient require the assistance of a helper? No. Patient only requires an assistive device fo r bed, chair, wheelchair transfers such as a sliding board, grab bar, or brace, OR s/he takes more th an reasonable time, OR there is a safety concern when s/he performs the transfers TRANSFERS: BED, CHAIR, WHEELCHAIR - SCORE: 6-TINO TRANSFERS: TOILET: Activity did not occur on this shift TRANSFERS: TOILET - SCORE: 0-UNK TRANSFERS: SHOWER: Activity did not occur on this shift TRANSFERS: SHOWER - SCORE: 0-UNK TRANSFERS: TUB: Activity did not occur on this shift TRANSFERS: TUB - SCORE: 0-UNK LOCOMOTION: WALK: LOCOMOTION: WALK - STEP 1: Does the patient need help to walk 150 feet? No. LOCOMOTION: WALK - STEP 2: Does the patient need an assistive device (such as an orthosis, prosthesis, crutches, or walker) to g o 150 feet, OR does s/he take more than reasonable time, OR is there a concern for safety? Yes, the p atient needs an assistive device LOCOMOTION: WALK - SCORE: 6-TINO LOCOMOTION: WHEELCHAIR: LOCOMOTION: WHEELCHAIR - STEP 1: Does the patient need help to go 150 feet in a wheelchair? No. LOCOMOTION: WHEELCHAIR - SCORE: 6-TINO LOCOMOTION: STAIRS: Activity did not occur on this shift LOCOMOTION: STAIRS - SCORE: 0-UNK COMPREHENSION: COMPREHENSION - SCORE: 0-UNK EXPRESSION EXPRESSION - SCORE: 0-UNK SOCIAL INTERACTION: SOCIAL INTERACTION - SCORE: 0-UNK PROBLEM SOLVING: PROBLEM SOLVING - SCORE: 0-UNK MEMORY: MEMORY - SCORE: 0-UNK SIGNATURE PANEL: The following modified sections: Transfers: Bed, Chair, Wheelchair - Score, Transfers: Toilet - Score , Locomotion: Walk - Score, Locomotion: Wheelchair - Score, Locomotion: Stairs - Score were [electron icawale] signed by Melvin Millan PTA on TueJul 11 2018 13:48:44 GMT-0500 (Central Daylight Time)
--- NOTE | 2018-07-11 14:02 | FAST ---
SHIFT START DATE/TIME: 07/11/2018 07:00 (CDT) SHIFT END DATE/TIME: 07/11/2018 19:00 (CDT) NAME FRANCE BAUMANN DATE OF : 1945 DATE OF ADMISSION: 07/02/2018 14:34 (CDT) PHONE: AGE: 73 N# [id number] GENDER: Female ENCOUNTER PHYSICIAN: Dr. Luke Major M.D. ADMISSION DIAGNOSIS: - Orthopaedic Disorders 08 - Unilateral Hip Fracture (08.11) Left Femoral Neck Fracture. EATING: EATING - STEP 1: Does the patient require assistance when eating? Yes. EATING - STEP 2: Does the patient require the assistance of a helper? Yes. EATING - STEP 3: Does the patient perform half or more of the eating tasks? Yes. EATING - STEP 4: Does the patient need only supervision, cuing, coaxing OR help to apply an orthosis OR help to cut fo od, open containers, pour liquids, or butter bread? Yes. EATING - SCORE: 5-SUP GROOMING: Comb/brush hair Wash, rinse, and dry face Wash, rinse, and dry hands GROOMING - STEP 1: Does the patient require assistance when grooming? Yes. GROOMING - STEP 2: Does the patient require the assistance of a helper? No. The patient only requires an assistive devic e, OR takes more than reasonable time to groom, OR there is a concern for safety as the patient groom s GROOMING - SCORE: 6-TINO BATHING: Activity did not occur on this shift BATHING - SCORE: 0-UNK DRESSING - UPPER BODY: Activity did not occur on this shift ARTICLES SCORE Total number of steps: 0 DRESSING - UPPER BODY - SCORE: 0-UNK DRESSING - LOWER BODY: Elastic waist pants (three steps) ARTICLES SCORE Total number of steps: 3 DRESSING - LOWER BODY - STEP 1: Does the patient require help when dressing below the waist? Yes. DRESSING - LOWER BODY - STEP 2: Does the patient require the assistance of a helper? Yes. DRESSING - LOWER BODY - STEP 3: Does the helper touch the patient while dressing? Yes. DRESSING - LOWER BODY - STEP 4: How many of the total steps does the patient complete on his/her own? 0 DRESSING - LOWER BODY - STEP 5: Does patient require total assistance for dressing below the waist such as the helper holding clothin g and performing basically all the activities? Yes. DRESSING - LOWER BODY - SCORE: 1-DEP TOILETING: TOILETING - STEP 1: Does the patient require assistance with toileting? Yes. TOILETING - STEP 2: Does the patient require the assistance of a helper? Yes. TOILETING - STEP 3: How much assistance does the patient require from the helper? Hands-on assistance from the helper TOILETING - STEP 4: Of the 3 tasks: 1) Adjusting clothing prior to use, 2) Cleansing of perineal area, 3) Adjusting clot feroz after use; How many tasks does the patient perform WITHOUT assistance of the helper? No tasks; h elper performs all three tasks TOILETING - SCORE: 1-DEP BLADDER MANAGEMENT: Fosters removes incontinent device (Depends, pull ups, etc.); cleans the patient after accident / inco ntinent episode; and, applies new incontinent device. BLADDER MANAGEMENT - SCORE: 1-DEP BLADDER MANAGEMENT - FREQUENCY OF ACCIDENTS: BLADDER MANAGEMENT(FA) - STEP 1: How many accidents has the patient had during the current shift? 2 BOWEL MANAGEMENT: Activity did not occur on this shift BOWEL MANAGEMENT - SCORE: 7-IND BOWEL MANAGEMENT - FREQUENCY OF ACCIDENTS: BOWEL MANAGEMENT(FA) - STEP 1: How many accidents has the patient had during the current shift? 0 TRANSFERS: BED, CHAIR, WHEELCHAIR: TRANSFERS: BED, CHAIR, WHEELCHAIR - STEP 1: Does the patient require assistance with bed, chair, or wheelchair transfers? Yes. TRANSFERS: BED, CHAIR, WHEELCHAIR - STEP 2: Does the patient require the assistance of a helper? Yes. TRANSFERS: BED, CHAIR, WHEELCHAIR - STEP 3: How much assistance does the patient require from the helper? Lifting of the patient TRANSFERS: BED, CHAIR, WHEELCHAIR - STEP 4: Does the helper lift the patient ONLY up? ONLY down? Up AND Down? Patient needs help with all lifting TRANSFERS: BED, CHAIR, WHEELCHAIR - SCORE: 1-DEP TRANSFERS: TOILET: TRANSFERS: TOILET - STEP 1: Does the patient require assistance with toilet transfers? Yes. TRANSFERS: TOILET - STEP 2: Does the patient require the assistance of a helper? Yes. TRANSFERS: TOILET - STEP 3: How much assistance does the patient require from the helper? Patient performs half or more of the tr ansferring tasks TRANSFERS: TOILET - STEP 4: Does the patient need only incidental help such as contact guard or steadying during toilet transfer? No. Patient needs more than incidental help TRANSFERS: TOILET - SCORE: 3-MOD TRANSFERS: SHOWER: Activity did not occur on this shift TRANSFERS: SHOWER - SCORE: 0-UNK TRANSFERS: TUB: Activity did not occur on this shift TRANSFERS: TUB - SCORE: 0-UNK LOCOMOTION: WALK: Activity did not occur on this shift LOCOMOTION: WALK - SCORE: 0-UNK LOCOMOTION: WHEELCHAIR: LOCOMOTION: WHEELCHAIR - STEP 1: Does the patient need help to go 150 feet in a wheelchair? Yes. LOCOMOTION: WHEELCHAIR - STEP 2: How much assistance does the patient need from the helper? Only supervision, cuing, or coaxing LOCOMOTION: WHEELCHAIR - SCORE: 5-SUP COMPREHENSION: COMPREHENSION: TYPE: Both COMPREHENSION - STEP 1: Does the patient require help to understand complex and abstract ideas (such as current events, finan shea, discharge planning, medical issues, relationships, etc)? Yes. COMPREHENSION - STEP 2: Does the patient require help to understand questions or statements about basic needs or ideas (such as hunger, thirst, sleep, safety, daily schedule, room location, or discomfort) half or more of the t renee? No. COMPREHENSION - STEP 3: How often does the patient need help to understand directions and conversation about basic needs? 10% - 24% of the time COMPREHENSION - SCORE: 4-MIN EXPRESSION EXPRESSION: TYPE: Both EXPRESSION - STEP 1: Does the patient require help expressing complex and abstract ideas (such as current events, finances , discharge planning, medical issues, relationships, etc)? Yes. EXPRESSION - STEP 2: Does the patient require help to express basic necessities or ideas (such as hunger, thirst, sleep, s afety, daily schedule, room location, or discomfort) half or more of the time? No. EXPRESSION - STEP 3: How often does the patient need help to express directions and conversation about basic needs? 10-24% of the time EXPRESSION - SCORE: 4-MIN SOCIAL INTERACTION: SOCIAL INTERACTION - STEP 1: Does the patient require a helper to interact with others in social and therapeutic situations? No. SOCIAL INTERACTION - STEP 2: Does the patient need extra time in social situations, OR does s/he interact with staff, other patien ts, and family members ONLY in structured environments, OR does s/he require medication for social in teraction? Yes, patient needs extra time SOCIAL INTERACTION - SCORE: 6-TINO PROBLEM SOLVING: PROBLEM SOLVING - STEP 1: Does the patient need help to solve complex problems such as managing a checking account or confronti ng interpersonal problems? Yes. PROBLEM SOLVING - STEP 2: Does the patient solve basic routine problems half or more of the time? Yes. PROBLEM SOLVING - STEP 3: How often does the patient need help to solve basic routine problems? 10%-24% of the time PROBLEM SOLVING - SCORE: 4-MIN MEMORY: MEMORY - STEP 1: Does the patient need help to remember frequently encountered people, daily routines, and executing r equests? Yes. MEMORY - STEP 2: How often does the patient need help to remember frequently encountered people, daily routines, and e xecuting requests? Less than 10% of the time MEMORY - SCORE: 5-SUP SIGNATURE PANEL: The following modified sections: Eating - Score, Grooming - Score, Bathing - Score, Dressing - Upper Body - Score, Dressing - Lower Body - Score, Toileting - Score, Bladder Management - Score, Bowel Man agement - Score, Transfers: Bed, Chair, Wheelchair - Score, Transfers: Toilet - Score, Transfers: Shonna wer - Score, Transfers: Tub - Score, Locomotion: Walk - Score, Locomotion: Wheelchair - Score, Compre hension - Score, Expression - Score, Social Interaction - Score, Problem Solving - Score, Memory - Sc ore were [electronically] signed by Ping Sharp C.N.A. on TueJul 11 2018 14:01:10 T-0500 (Centra l Daylight Time)
[2018-07-11] MEDS: RIVAROXABAN 20 MG TABLET PO SCH (17:08)
--- NOTE | 2018-07-11 17:22 | P.PN ---
Subjective Date of Service: 07/11/18 Chief Complaint: PAIN HAS IMPROVED. Subjective: No new changes, Improving DOING WELL. L LEG SWELLING. I EXPLAINED NO CLOTS ARE SEEN. WILL DO COMPRESSION. HER STOCKINGS ARE HELPING HTE PAIN NOW. LESS COMPLAINTS NOW Review of Systems 10-point ROS is otherwise unremarkable Physical Examination - Vital Signs Temperature: 97.3 F Blood Pressure: 110/52 Pulse: 61 Respirations: 16 Pulse Ox (%): 98 - Physical Exam General: Alert, Mild distress HEENT: Atraumatic, PERRLA, EOMI Neck: Supple, JVD not distended Respiratory: Clear to auscultation bilaterally, Normal air movement Cardiovascular: Regular rate/rhythm, Normal S1 S2 Gastrointestinal: Normal bowel sounds, No tenderness Musculoskeletal: No tenderness Integumentary: No rashes Neurological: Normal speech, Normal tone, Normal affect Lymphatics: No axilla or inguinal lymphadenopathy - Studies Laboratory Data (last 24 hrs) 07/11/18 05:36: Sodium 141, Potassium 4.5, BUN 16, Creatinine 0.60, Glucose 95 07/11/18 05:36: WBC 9.2, Hgb 11.4 L, Hct 33.2 L, Plt Count 427 H Medications List Reviewed: Yes Assessment And Plan - Current Problems (Diagnosis) (1) A-fib Current Visit: No Status: Acute Plan: STABLE ON MEDS SOTALOL AND XARELTO STABLE, NO CHANGS LAB BIW Qualifiers: Atrial fibrillation type: chronic Qualified Code(s): I48.2 - Chronic atrial fibrillation (2) Fracture of femoral neck, left, closed Onset Date: 06/26/18 Current Visit: No Status: Acute Plan: RESUME PT ALREADY HAS BEEN GIVEN RECLAST FOR BONES. RESIUME PT STABLE, RESUME PT. NO CHANGES. WATCH LAB. Qualifiers: (3) Lower leg edema Current Visit: Yes Status: Acute Plan: VENOUS DOPPLER L LEG. STOCKINGS. IF CAN. IMPROVED. GRADUALLY. (4) Claudication Current Visit: Yes Status: Acute Plan: ART DOPPLER L LEG.
--- NOTE | 2018-07-11 17:28 | R.PN ---
ENCOUNTER DATE AND TIME: 07/11/2018 17:25 (CDT) NAME FRANCE BAUMANN DATE OF : 1945 DATE OF ADMISSION: 07/02/2018 14:34 (CDT) Left Femoral Neck FractureCHIEF COMPLAINT: Left hip fracture SUBJECTIVE: Pt denied any depression. Pt denied any Shortness of Breath. Ambulated 250' with modified independence using a rolling walker. Propelled wheelchair 250' with marino fied independence. VITAL SIGNS Temperature: 97.3 F SBP/DBP: 110/52 Pulse: 61 Resp: 16 MEDICATION ALLERGIES: Amoxicillin Codeine Ibuprofen Etodolac Annaprox ENVIRONMENTAL ALLERGIES: None Known - Substance Allergies None Known - Other Allergies None Known NURSING: - Shower allowing shower - Skin care per protocol PRECAUTIONS: - Anterior Hip Precaution No abduction No active extension No adduction across midline No external rotation No hip flexion >90 degrees No internal rotation - Posterior Hip Precaution No adduction across midline No external rotation No hip flexion >90 degrees No internal rotation No wheel chair propulsion - Weight Bearing Precaution TTWB left LE ACTIVITIES OOB only with supervision THERAPIES: - Occupational Therapy Evaluate and Treat. - Physical Therapy Evaluate and Treat. PHYSICAL EXAM - Gen Alert and awake Lying in bed No apparent distress Oriented to: person, time, and place - Skin left hip incision intact No numbness - Eyes No discharge - ENMT No abnormalities - Neck No abnormalities - CVS RRR - Chest Clear - Abd +bowel sounds - GI Soft Deferred - No abnormalities - Ext Left hip surgical site has good hemostasis. - MSK 4+/5 weakness in left lower extremity - Neuro No abnormalities - Psych No abnormalities ASSESSMENT: Pt. is a 73 yo Right-handed white female.Her impairment category is Orthopaedic Disorders 08 - Unila teral Hip Fracture (08.11).Pre-morbidly, Pt. was independent/mod-I in Sphincter Control, Transfers Co ntrol, Communication, Social Cognition, Self-Care, and Locomotion; and she had good Sphincter Control .Currently, she has deficits of Safety Awareness, Transfers Control, Balance, Self-Care, Locomotion, and Endurance.Pt. is now referred to [facility] for acute in-patient rehabilit ation in order to maximize patient's functional independence in activities of daily living, strength, ROM, and mobility.- Rehab Goal Patient has realistic goal of being discharged at assistance level 6-Marino to reside at Home with Fam brian/Relatives. MDM/PLAN: - Physical Therapy Decreased range of motion - to improve, our physical therapists will perform initial evaluation of p t's status upon admission and devise an individualized program for increasing patient's Range of Willis on. Gait dysfunction - to improve, our physical therapists will perform initial evaluation of pt's statu s upon admission and devise an individualized program for Gait Training, and Wheel Chair mobility Inability to transfer - to improve, our physical therapists will perform initial evaluation of pt's status upon admission and devise an individualized program for Bed mobility Need for home safety evaluation - to improve, our physical therapists will perform initial evaluatio n of pt's status upon admission and devise an individualized program for Home Evaluation Need in caregiver upon discharge - to improve, our physical therapists will perform initial evaluati on of pt's status upon admission and devise an individualized program for Caregiver Training New precaution - to improve, our physical therapists will perform initial evaluation of pt's status upon admission and devise an individualized program for Patient precaution education Poor balance - to improve, our physical therapists will perform initial evaluation of pt's status up on admission and devise an individualized program for Balance Training Poor endurance - to improve, our physical therapists will perform initial evaluation of pt's status upon admission and devise an individualized program for Endurance Training Weakness - to improve, our physical therapists will perform initial evaluation of pt's status upon a dmission and devise an individualized program for Aquatic Therapy, Neuromuscular Reeducation, and Str engthening Achieving independence - to improve, our physical therapists will perform initial evaluation of pt's status upon admission and devise an individualized program for Community Reintegration Activities - Occupational Therapy ADL deficits - to improve, our occupation therapists will perform initial evaluation of pt's status upon admission and devise an individualized program for Bathing, Bed mobility, Community Reintegratio n, Cooking, Dressing, Eating, Fine Motor Skills, Grooming, Homemaking, Kitchen Mobility, Laundry, Pat ient Education, Safety Awareness, Splinting - Positioning, Transfers(Toilet, Tub, Shower), and Wheel Chair Management Need for rn home care - to improve, our occupation therapists will perform initial evaluation of pt's status upon admission and devise an individualized program for Caregiver Training Weakness - to improve, our occupation therapists will perform initial evaluation of pt's status upon admission and devise an individualized program for Aquatic Therapy, Balance, Endurance, UE ROM, and UE strengthening - Anterior Hip Precaution No abduction No active extension No adduction across midline No external rotation No hip flexion >90 degrees No internal rotation - Diet - Liquid Texture Continue Regular - Tube Feed Continue N/A - Diet Type Continue Regular - Posterior Hip Precaution No adduction across midline No external rotation No hip flexion >90 degrees No internal rotation No wheel chair propulsion - Weight Bearing Precaution TTWB left LE - Skin care per protocol - Diet - Solid Texture Continue Regular - Shower allowing shower FUNCTIONAL STATUS: UPDATED AT WEEKLY TEAM CONFERENCE - Bladder Same accident frequency: 7-Ind - No accidents in the past 7 days - Bowel Same accident frequency: 7-Ind - No accidents in the past 7 days - Walking Same score based on distance walked: 1(<=50ft) - Wheelchair Same score based on distance traveled: 0(N/A) FUNCTIONAL STATUS: - Self-Care A. Eating sup B. Grooming Ind C. Bathing sup D. Dressing - Upper sup E. Dressing - Lower Nelson F. Toileting Nelson - Sphincter Control G: Bladder control Ind H: Bowel control Ind - Transfers Control I. Bed/Chair/Wheelchair modA J. Toilet modA K. Tub/Shower ADNO - Locomotion L. Walk/Wheelchair (C) modA L. Walk/Wheelchair (W) modA M. Stairs ADNO - Communication N. Comprehension (B) Ind O. Expression (B) Ind - Social Cognition P. Social Interaction Ind Q. Problem Solving Ind R. Memory Ind - Endurance Poor - Balance Poor - Safety Awareness Fair CURRENT FUNC. DEFICITS: Safety Awareness, Transfers Control, Balance, Self-Care, Locomotion, and Endurance SIGNATURE PANEL: (CDT)
--- NOTE | 2018-07-12 02:35 | FAST ---
SHIFT START DATE/TIME: 07/11/2018 19:00 (CDT) SHIFT END DATE/TIME: 07/12/2018 07:00 (CDT) NAME FRANCE BAUMANN DATE OF : 1945 DATE OF ADMISSION: 07/02/2018 14:34 (CDT) PHONE: AGE: 73 N# [id number] GENDER: Female ENCOUNTER PHYSICIAN: Dr. Luke Major M.D. ADMISSION DIAGNOSIS: - Orthopaedic Disorders 08 - Unilateral Hip Fracture (08.11) Left Femoral Neck Fracture. EATING: Activity did not occur on this shift EATING - SCORE: 0-UNK GROOMING: Oral care Wash, rinse, and dry hands GROOMING - STEP 1: Does the patient require assistance when grooming? Yes. GROOMING - STEP 2: Does the patient require the assistance of a helper? Yes. GROOMING - STEP 3: How much assistance does the patient require from the helper? Only prior equipment preparation/set up from the helper GROOMING - SCORE: 5-SUP BATHING: Activity did not occur on this shift BATHING - SCORE: 0-UNK DRESSING - UPPER BODY: Patient is not dressing in public clothing ARTICLES SCORE Total number of steps: 0 DRESSING - UPPER BODY - SCORE: 0-UNK DRESSING - LOWER BODY: Patient is not dressing in public clothing ARTICLES SCORE Total number of steps: 0 DRESSING - LOWER BODY - SCORE: 0-UNK TOILETING: TOILETING - STEP 1: Does the patient require assistance with toileting? Yes. TOILETING - STEP 2: Does the patient require the assistance of a helper? Yes. TOILETING - STEP 3: How much assistance does the patient require from the helper? Hands-on assistance from the helper TOILETING - STEP 4: Of the 3 tasks: 1) Adjusting clothing prior to use, 2) Cleansing of perineal area, 3) Adjusting clot feroz after use; How many tasks does the patient perform WITHOUT assistance of the helper? Three tasks with steadying assistance from the helper TOILETING - SCORE: 4-MIN BLADDER MANAGEMENT: BLADDER MANAGEMENT - STEP 1: Does the patient control the bladder completely and intentionally without equipment or devices or med ications, and is always continent? No. BLADDER MANAGEMENT - STEP 2: Does the patient require the assistance of a helper? Yes. BLADDER MANAGEMENT - STEP 3: How much assistance does the patient require from the helper? Only supervision, stand-by, cuing, or c oaxing BLADDER MANAGEMENT - SCORE: 5-SUP BOWEL MANAGEMENT: Activity did not occur on this shift BOWEL MANAGEMENT - SCORE: 7-IND TRANSFERS: BED, CHAIR, WHEELCHAIR: TRANSFERS: BED, CHAIR, WHEELCHAIR - STEP 1: Does the patient require assistance with bed, chair, or wheelchair transfers? Yes. TRANSFERS: BED, CHAIR, WHEELCHAIR - STEP 2: Does the patient require the assistance of a helper? Yes. TRANSFERS: BED, CHAIR, WHEELCHAIR - STEP 3: How much assistance does the patient require from the helper? Lifting of the legs TRANSFERS: BED, CHAIR, WHEELCHAIR - STEP 4: How many legs does the patient require the helper to lift? both legs TRANSFERS: BED, CHAIR, WHEELCHAIR - SCORE: 3-MOD TRANSFERS: TOILET: TRANSFERS: TOILET - STEP 1: Does the patient require assistance with toilet transfers? Yes. TRANSFERS: TOILET - STEP 2: Does the patient require the assistance of a helper? Yes. TRANSFERS: TOILET - STEP 3: How much assistance does the patient require from the helper? Patient performs half or more of the tr ansferring tasks TRANSFERS: TOILET - STEP 4: Does the patient need only incidental help such as contact guard or steadying during toilet transfer? Yes. TRANSFERS: TOILET - SCORE: 4-MIN TRANSFERS: SHOWER: Activity did not occur on this shift TRANSFERS: SHOWER - SCORE: 0-UNK TRANSFERS: TUB: Activity did not occur on this shift TRANSFERS: TUB - SCORE: 0-UNK LOCOMOTION: WALK: Activity did not occur on this shift LOCOMOTION: WALK - SCORE: 0-UNK LOCOMOTION: WHEELCHAIR: Activity did not occur on this shift LOCOMOTION: WHEELCHAIR - SCORE: 0-UNK COMPREHENSION: COMPREHENSION: TYPE: Both COMPREHENSION - STEP 1: Does the patient require help to understand complex and abstract ideas (such as current events, finan shea, discharge planning, medical issues, relationships, etc)? No. COMPREHENSION - STEP 2: Does the patient need extra time, require an assistive device (such as glasses for visual comprehensi on or a hearing aid for auditory comprehension) or does s/he have mild difficulty understanding compl ex and abstract information? Yes. COMPREHENSION - SCORE: 6-TNIO EXPRESSION EXPRESSION: TYPE: Both EXPRESSION - STEP 1: Does the patient require help expressing complex and abstract ideas (such as current events, finances , discharge planning, medical issues, relationships, etc)? No. EXPRESSION - STEP 2: Does the patient need extra time, require an assistive device (such as augmentive communication syste m or a communication board), OR does s/he have mild difficulty expressing complex and abstract ideas (including mild dysarthria or mild word-find problems)? No. EXPRESSION - SCORE: 7-IND SOCIAL INTERACTION: SOCIAL INTERACTION - STEP 1: Does the patient require a helper to interact with others in social and therapeutic situations? No. SOCIAL INTERACTION - STEP 2: Does the patient need extra time in social situations, OR does s/he interact with staff, other patien ts, and family members ONLY in structured environments, OR does s/he require medication for social in teraction? Yes, patient requires medication for social interaction SOCIAL INTERACTION - SCORE: 6-TINO PROBLEM SOLVING: PROBLEM SOLVING - STEP 1: Does the patient need help to solve complex problems such as managing a checking account or confronti ng interpersonal problems? No. PROBLEM SOLVING - STEP 2: Does the patient require extra time to make decisions or solve problems, OR does s/he have slight dif ficulty reading, initiating, or self-correcting in unfamiliar situations? Yes, patient needs extra ti me. PROBLEM SOLVING - SCORE: 6-TINO MEMORY: MEMORY - STEP 1: Does the patient need help to remember frequently encountered people, daily routines, and executing r equests? No. MEMORY - STEP 2: Does the patient have slight difficulty recognizing frequently encountered people, daily routines, or executing requests without the need for repetition or using self-initiated or environmental cues to remember? No. MEMORY - SCORE: 7-IND SIGNATURE PANEL: The following modified sections: Eating - Score, Grooming - Score, Dressing - Upper Body - Score, Adam ssing - Lower Body - Score, Toileting - Score, Bladder Management - Score, Bowel Management - Score, Transfers: Bed, Chair, Wheelchair - Score, Transfers: Toilet - Score, Transfers: Shower - Score, Jo sfers: Tub - Score, Locomotion: Walk - Score, Locomotion: Wheelchair - Score, Comprehension - Score, Expression - Score, Social Interaction - Score, Problem Solving - Score, Memory - Score were [electro nically] signed by Ellen Canada CNA on TueJul 12 2018 02:35:27 T-0500 (Central Daylight Time)
[2018-07-12] MEDS: SOTALOL HCL 80 MG TAB PO SCH ×2 (05:10→17:01)
[2018-07-12] MEDS: PROMOD 30 ML DOSE PO SCH ×2 (08:00→19:58)
[2018-07-12] MEDS: ASCORBIC ACID 500 MG TABLET PO SCH (08:09)
[2018-07-12] MEDS: FERROUS SULFATE 325 MG TAB PO SCH (08:09)
[2018-07-12] MEDS: FE SULF/FA/VIT B COMP & C TAB PO SCH (08:09)
[2018-07-12] MEDS: VITAMIN D 5,000 UNIT CAP PO SCH (08:10)
[2018-07-12] MEDS: CRANBERRY FRUIT EXTRACT 200 MG CAP PO SCH ×2 (08:10→20:34)
[2018-07-12] MEDS: GABAPENTIN 300 MG CAP PO SCH ×2 (08:10→20:34)
[2018-07-12] MEDS: MAGNESIUM OXIDE 400 MG TAB PO SCH ×2 (08:10→20:34)
[2018-07-12] MEDS: ASPIRIN EC 81 MG TAB PO SCH (08:10)
[2018-07-12] MEDS: CALCIUM CARBONATE 500 MG TAB PO SCH ×2 (08:10→20:35)
[2018-07-12] MEDS: POTASSIUM CL SA 10 MEQ TAB PO SCH (08:11)
[2018-07-12] MEDS: BACLOFEN 10 MG TAB PO PRN (08:11)
[2018-07-12] MEDS: PANTOPRAZOLE 40MG TABLET PO SCH (08:11)
[2018-07-12] MEDS: SPIRONOLACTONE 25 MG TABLET PO SCH (08:11)
[2018-07-12] MEDS: ACETAMINOPHEN 500 MG TAB PO PRN (11:42)
--- NOTE | 2018-07-12 15:02 | FAST ---
SHIFT START DATE/TIME: 07/12/2018 07:00 (CDT) SHIFT END DATE/TIME: 07/12/2018 19:00 (CDT) NAME FRANCE BAUMANN DATE OF : 1945 DATE OF ADMISSION: 07/02/2018 14:34 (CDT) PHONE: AGE: 73 N# [id number] GENDER: Female ENCOUNTER PHYSICIAN: Dr. Luke Major M.D. ADMISSION DIAGNOSIS: - Orthopaedic Disorders 08 - Unilateral Hip Fracture (08.11) Left Femoral Neck Fracture. EATING: EATING - STEP 1: Does the patient require assistance when eating? Yes. EATING - STEP 2: Does the patient require the assistance of a helper? No, patient only requires an assistive device, O R s/he takes more than reasonable time to eat, OR there is a safety concern, OR s/he requires modifie d food consistency EATING - SCORE: 6-TINO GROOMING: Comb/brush hair Oral care GROOMING - STEP 1: Does the patient require assistance when grooming? Yes. GROOMING - STEP 2: Does the patient require the assistance of a helper? No. The patient only requires an assistive devic e, OR takes more than reasonable time to groom, OR there is a concern for safety as the patient groom s GROOMING - SCORE: 6-TINO BATHING: Activity did not occur on this shift BATHING - SCORE: 0-UNK DRESSING - UPPER BODY: Activity did not occur on this shift ARTICLES SCORE Total number of steps: 0 DRESSING - UPPER BODY - SCORE: 0-UNK DRESSING - LOWER BODY: Activity did not occur on this shift ARTICLES SCORE Total number of steps: 0 DRESSING - LOWER BODY - SCORE: 0-UNK TOILETING: TOILETING - STEP 1: Does the patient require assistance with toileting? Yes. TOILETING - STEP 2: Does the patient require the assistance of a helper? Yes. TOILETING - STEP 3: How much assistance does the patient require from the helper? Hands-on assistance from the helper TOILETING - STEP 4: Of the 3 tasks: 1) Adjusting clothing prior to use, 2) Cleansing of perineal area, 3) Adjusting clot feroz after use; How many tasks does the patient perform WITHOUT assistance of the helper? Three tasks with steadying assistance from the helper TOILETING - SCORE: 4-MIN BLADDER MANAGEMENT: BLADDER MANAGEMENT - STEP 1: Does the patient control the bladder completely and intentionally without equipment or devices or med ications, and is always continent? No. BLADDER MANAGEMENT - STEP 2: Does the patient require the assistance of a helper? No, patient requires and independently uses an a ssistive device, such as a urinal, bedpan, bedside commode, catheter, absorbent pad, or collecting de vice BLADDER MANAGEMENT - SCORE: 6-TINO BOWEL MANAGEMENT: Activity did not occur on this shift BOWEL MANAGEMENT - SCORE: 7-IND TRANSFERS: BED, CHAIR, WHEELCHAIR: TRANSFERS: BED, CHAIR, WHEELCHAIR - STEP 1: Does the patient require assistance with bed, chair, or wheelchair transfers? Yes. TRANSFERS: BED, CHAIR, WHEELCHAIR - STEP 2: Does the patient require the assistance of a helper? Yes. TRANSFERS: BED, CHAIR, WHEELCHAIR - STEP 3: How much assistance does the patient require from the helper? Steadying/guiding assistance TRANSFERS: BED, CHAIR, WHEELCHAIR - SCORE: 4-MIN TRANSFERS: TOILET: TRANSFERS: TOILET - STEP 1: Does the patient require assistance with toilet transfers? Yes. TRANSFERS: TOILET - STEP 2: Does the patient require the assistance of a helper? Yes. TRANSFERS: TOILET - STEP 3: How much assistance does the patient require from the helper? Patient performs half or more of the tr ansferring tasks TRANSFERS: TOILET - STEP 4: Does the patient need only incidental help such as contact guard or steadying during toilet transfer? Yes. TRANSFERS: TOILET - SCORE: 4-MIN TRANSFERS: SHOWER: Activity did not occur on this shift TRANSFERS: SHOWER - SCORE: 0-UNK TRANSFERS: TUB: Activity did not occur on this shift TRANSFERS: TUB - SCORE: 0-UNK LOCOMOTION: WALK: Activity did not occur on this shift LOCOMOTION: WALK - SCORE: 0-UNK LOCOMOTION: WHEELCHAIR: Activity did not occur on this shift LOCOMOTION: WHEELCHAIR - SCORE: 0-UNK COMPREHENSION: COMPREHENSION: TYPE: Both COMPREHENSION - STEP 1: Does the patient require help to understand complex and abstract ideas (such as current events, finan shea, discharge planning, medical issues, relationships, etc)? No. COMPREHENSION - STEP 2: Does the patient need extra time, require an assistive device (such as glasses for visual comprehensi on or a hearing aid for auditory comprehension) or does s/he have mild difficulty understanding compl ex and abstract information? Yes. COMPREHENSION - SCORE: 6-TINO EXPRESSION EXPRESSION: TYPE: Both EXPRESSION - STEP 1: Does the patient require help expressing complex and abstract ideas (such as current events, finances , discharge planning, medical issues, relationships, etc)? No. EXPRESSION - STEP 2: Does the patient need extra time, require an assistive device (such as augmentive communication syste m or a communication board), OR does s/he have mild difficulty expressing complex and abstract ideas (including mild dysarthria or mild word-find problems)? No. EXPRESSION - SCORE: 7-IND SOCIAL INTERACTION: SOCIAL INTERACTION - STEP 1: Does the patient require a helper to interact with others in social and therapeutic situations? No. SOCIAL INTERACTION - STEP 2: Does the patient need extra time in social situations, OR does s/he interact with staff, other patien ts, and family members ONLY in structured environments, OR does s/he require medication for social in teraction? Yes, patient needs extra time SOCIAL INTERACTION - SCORE: 6-TINO PROBLEM SOLVING: PROBLEM SOLVING - STEP 1: Does the patient need help to solve complex problems such as managing a checking account or confronti ng interpersonal problems? No. PROBLEM SOLVING - STEP 2: Does the patient require extra time to make decisions or solve problems, OR does s/he have slight dif ficulty reading, initiating, or self-correcting in unfamiliar situations? Yes, patient needs extra ti me. PROBLEM SOLVING - SCORE: 6-TINO MEMORY: MEMORY - STEP 1: Does the patient need help to remember frequently encountered people, daily routines, and executing r equests? No. MEMORY - STEP 2: Does the patient have slight difficulty recognizing frequently encountered people, daily routines, or executing requests without the need for repetition or using self-initiated or environmental cues to remember? Yes. MEMORY - SCORE: 6-TINO SIGNATURE PANEL: The following modified sections: Eating - Score, Grooming - Score, Bathing - Score, Dressing - Upper Body - Score, Dressing - Lower Body - Score, Toileting - Score, Bladder Management - Score, Bowel Man agement - Score, Transfers: Bed, Chair, Wheelchair - Score, Transfers: Toilet - Score, Transfers: Shonna wer - Score, Transfers: Tub - Score, Locomotion: Walk - Score, Locomotion: Wheelchair - Score, Compre hension - Score, Expression - Score, Social Interaction - Score, Problem Solving - Score, Memory - Sc ore were [electronically] signed by Aayush Reeves on TueJul 12 2018 15:01:47 GMT-0500 (Central Daylight Time)
--- NOTE | 2018-07-12 15:07 | FAST ---
ENCOUNTER DATE AND TIME: 07/12/2018 08:00 (CDT) NAME FRANCE BAUMANN DATE OF : 1945 DATE OF ADMISSION: 07/02/2018 14:34 (CDT) PHONE: AGE: 73 SSN# [id number] GENDER: Female ENCOUNTER PHYSICIAN: Dr. Luke Major M.D. ADMISSION DIAGNOSIS: - Orthopaedic Disorders 08 - Unilateral Hip Fracture (08.11) Left Femoral Neck Fracture. EATING: EATING - STEP 1: Does the patient require assistance when eating? No. EATING - SCORE: 7-IND GROOMING: Comb/brush hair Oral care Wash, rinse, and dry face Wash, rinse, and dry hands GROOMING - STEP 1: Does the patient require assistance when grooming? No. GROOMING - SCORE: 7-IND BATHING: Abdomen Buttocks Chest Left arm Left lower leg and foot Left upper leg Perineal area Right arm Right lower leg and foot Right upper leg BATHING - STEP 1: Does the patient require assistance when bathing? Yes. BATHING - STEP 2: Does the patient require the assistance of a helper? No. The patient only requires an assistive devic e such as a bath axel, OR the patient takes more than reasonable time to bathe, OR there is a concern for safety such as regulating water temperature as the patient bathes. BATHING - SCORE: 6-TINO DRESSING - UPPER BODY: T-shirt/pullover shirt (four steps) ARTICLES SCORE Total number of steps: 4 DRESSING - UPPER BODY - STEP 1: Does the patient require help when dressing above the waist? No. DRESSING - UPPER BODY - SCORE: 7-IND DRESSING - LOWER BODY: Elastic waist pants (three steps) Slip-on shoe - Left foot (one step) Slip-on shoe - Right foot (one step) Sock - Left foot (one step) Sock - Right foot (one step) Underwear (three steps) ARTICLES SCORE Total number of steps: 10 DRESSING - LOWER BODY - STEP 1: Does the patient require help when dressing below the waist? Yes. DRESSING - LOWER BODY - STEP 2: Does the patient require the assistance of a helper? Yes. DRESSING - LOWER BODY - STEP 3: Does the helper touch the patient while dressing? No. DRESSING - LOWER BODY - SCORE: 5-SUP TOILETING: Activity did not occur on this shift TOILETING - SCORE: 0-UNK BLADDER MANAGEMENT: Activity did not occur on this shift BLADDER MANAGEMENT - SCORE: 7-IND BOWEL MANAGEMENT: Activity did not occur on this shift BOWEL MANAGEMENT - SCORE: 7-IND TRANSFERS: BED, CHAIR, WHEELCHAIR: Activity did not occur on this shift TRANSFERS: BED, CHAIR, WHEELCHAIR - SCORE: 0-UNK TRANSFERS: TOILET: Activity did not occur on this shift TRANSFERS: TOILET - SCORE: 0-UNK TRANSFERS: SHOWER: TRANSFERS: SHOWER - STEP 1: Does the patient require assistance with shower transfers? Yes. TRANSFERS: SHOWER - STEP 2: Does the patient require the assistance of a helper? Yes. TRANSFERS: SHOWER - STEP 3: How much assistance does the patient require from the helper? Only supervision, cuing, coaxing, or he lp to set out transfer equipment or to lock brakes and/or lift foot rests TRANSFERS: SHOWER - SCORE: 5-SUP TRANSFERS: TUB: Activity did not occur on this shift TRANSFERS: TUB - SCORE: 0-UNK LOCOMOTION: WALK: Activity did not occur on this shift LOCOMOTION: WALK - SCORE: 0-UNK LOCOMOTION: WHEELCHAIR: Activity did not occur on this shift LOCOMOTION: WHEELCHAIR - SCORE: 0-UNK LOCOMOTION: STAIRS: Activity did not occur on this shift LOCOMOTION: STAIRS - SCORE: 0-UNK COMPREHENSION: COMPREHENSION: TYPE: Both COMPREHENSION - STEP 1: Does the patient require help to understand complex and abstract ideas (such as current events, finan shea, discharge planning, medical issues, relationships, etc)? No. COMPREHENSION - STEP 2: Does the patient need extra time, require an assistive device (such as glasses for visual comprehensi on or a hearing aid for auditory comprehension) or does s/he have mild difficulty understanding compl ex and abstract information? No. COMPREHENSION - SCORE: 7-IND EXPRESSION EXPRESSION: TYPE: Both EXPRESSION - STEP 1: Does the patient require help expressing complex and abstract ideas (such as current events, finances , discharge planning, medical issues, relationships, etc)? No. EXPRESSION - STEP 2: Does the patient need extra time, require an assistive device (such as augmentive communication syste m or a communication board), OR does s/he have mild difficulty expressing complex and abstract ideas (including mild dysarthria or mild word-find problems)? No. EXPRESSION - SCORE: 7-IND SOCIAL INTERACTION: SOCIAL INTERACTION - STEP 1: Does the patient require a helper to interact with others in social and therapeutic situations? No. SOCIAL INTERACTION - STEP 2: Does the patient need extra time in social situations, OR does s/he interact with staff, other patien ts, and family members ONLY in structured environments, OR does s/he require medication for social in teraction? No. SOCIAL INTERACTION - SCORE: 7-IND PROBLEM SOLVING: PROBLEM SOLVING - STEP 1: Does the patient need help to solve complex problems such as managing a checking account or confronti ng interpersonal problems? No. PROBLEM SOLVING - STEP 2: Does the patient require extra time to make decisions or solve problems, OR does s/he have slight dif ficulty reading, initiating, or self-correcting in unfamiliar situations? No. PROBLEM SOLVING - SCORE: 7-IND MEMORY: MEMORY - STEP 1: Does the patient need help to remember frequently encountered people, daily routines, and executing r equests? No. MEMORY - STEP 2: Does the patient have slight difficulty recognizing frequently encountered people, daily routines, or executing requests without the need for repetition or using self-initiated or environmental cues to remember? No. MEMORY - SCORE: 7-IND SIGNATURE PANEL: The following modified sections: Eating - Score, Grooming - Score, Bathing - Score, Dressing - Upper Body - Score, Dressing - Lower Body - Score, Toileting - Score, Transfers: Bed, Chair, Wheelchair - S core, Transfers: Toilet - Score, Transfers: Tub - Score, Transfers: Shower - Score, Comprehension - S core, Expression - Score, Social Interaction - Score, Problem Solving - Score, Memory - Score were [e lectronically] signed by Lindy Wells OT on TueJul 12 2018 15:06:40 GMT-0500 (Central Daylight T renee)
--- NOTE | 2018-07-12 16:04 | FAST ---
ENCOUNTER DATE AND TIME: 07/12/2018 08:00 (CDT) NAME FRANCE BAUMANN DATE OF : 1945 DATE OF ADMISSION: 07/02/2018 14:34 (CDT) PHONE: AGE: 73 SSN# [id number] GENDER: Female ENCOUNTER PHYSICIAN: Dr. Luke Major M.D. ADMISSION DIAGNOSIS: - Orthopaedic Disorders 08 - Unilateral Hip Fracture (08.11) Left Femoral Neck Fracture. EATING: Activity did not occur on this shift EATING - SCORE: 0-UNK GROOMING: Activity did not occur on this shift GROOMING - SCORE: 0-UNK BATHING: Activity did not occur on this shift BATHING - SCORE: 0-UNK DRESSING - UPPER BODY: Activity did not occur on this shift Patient is not dressing in public clothing ARTICLES SCORE Total number of steps: 0 DRESSING - UPPER BODY - SCORE: 0-UNK DRESSING - LOWER BODY: Activity did not occur on this shift Patient is not dressing in public clothing ARTICLES SCORE Total number of steps: 0 DRESSING - LOWER BODY - SCORE: 0-UNK TOILETING: Activity did not occur on this shift TOILETING - SCORE: 0-UNK BLADDER MANAGEMENT: Activity did not occur on this shift BLADDER MANAGEMENT - SCORE: 7-IND BOWEL MANAGEMENT: Activity did not occur on this shift BOWEL MANAGEMENT - SCORE: 7-IND TRANSFERS: BED, CHAIR, WHEELCHAIR: TRANSFERS: BED, CHAIR, WHEELCHAIR - STEP 1: Does the patient require assistance with bed, chair, or wheelchair transfers? Yes. TRANSFERS: BED, CHAIR, WHEELCHAIR - STEP 2: Does the patient require the assistance of a helper? No. Patient only requires an assistive device fo r bed, chair, wheelchair transfers such as a sliding board, grab bar, or brace, OR s/he takes more th an reasonable time, OR there is a safety concern when s/he performs the transfers TRANSFERS: BED, CHAIR, WHEELCHAIR - SCORE: 6-TINO TRANSFERS: TOILET: Activity did not occur on this shift TRANSFERS: TOILET - SCORE: 0-UNK TRANSFERS: SHOWER: Activity did not occur on this shift TRANSFERS: SHOWER - SCORE: 0-UNK TRANSFERS: TUB: Activity did not occur on this shift TRANSFERS: TUB - SCORE: 0-UNK LOCOMOTION: WALK: LOCOMOTION: WALK - STEP 1: Does the patient need help to walk 150 feet? Yes. LOCOMOTION: WALK - STEP 2: How much assistance does the patient require to walk a minimum of 150 feet? Only supervision, cuing, or coaxing LOCOMOTION: WALK - SCORE: 5-SUP LOCOMOTION: WHEELCHAIR: Activity did not occur on this shift LOCOMOTION: WHEELCHAIR - SCORE: 0-UNK LOCOMOTION: STAIRS: Activity did not occur on this shift LOCOMOTION: STAIRS - SCORE: 0-UNK COMPREHENSION: COMPREHENSION - SCORE: 0-UNK EXPRESSION EXPRESSION - SCORE: 0-UNK SOCIAL INTERACTION: SOCIAL INTERACTION - SCORE: 0-UNK PROBLEM SOLVING: PROBLEM SOLVING - SCORE: 0-UNK MEMORY: MEMORY - SCORE: 0-UNK SIGNATURE PANEL: The following modified sections: Transfers: Bed, Chair, Wheelchair - Score, Transfers: Toilet - Score , Locomotion: Walk - Score, Locomotion: Wheelchair - Score, Locomotion: Stairs - Score were [electron icawale] signed by Josh Cortes PT on TueJul 12 2018 16:03:48 [facility]-0500 (Central Daylight Time)
[2018-07-12] MEDS: RIVAROXABAN 20 MG TABLET PO SCH (16:32)
--- NOTE | 2018-07-12 17:18 | R.PN ---
ENCOUNTER DATE AND TIME: 07/12/2018 17:15 (CDT) NAME FRANCE BAUMANN DATE OF : 1945 DATE OF ADMISSION: 07/02/2018 14:34 (CDT) Left Femoral Neck FractureCHIEF COMPLAINT: Left hip fracture SUBJECTIVE: Pt denied any depression. Pt denied any Shortness of Breath. Ambulated 750' with standby assistance using a rolling walker. Propelled wheelchair 250' with modifie d independence. VITAL SIGNS Temperature: 97.2 F SBP/DBP: 140/62 Pulse: 66 Resp: 16 MEDICATION ALLERGIES: Amoxicillin Codeine Ibuprofen Etodolac Annaprox ENVIRONMENTAL ALLERGIES: None Known - Substance Allergies None Known - Other Allergies None Known NURSING: - Shower allowing shower - Skin care per protocol PRECAUTIONS: - Anterior Hip Precaution No abduction No active extension No adduction across midline No external rotation No hip flexion >90 degrees No internal rotation - Posterior Hip Precaution No adduction across midline No external rotation No hip flexion >90 degrees No internal rotation No wheel chair propulsion - Weight Bearing Precaution TTWB left LE ACTIVITIES OOB only with supervision THERAPIES: - Occupational Therapy Evaluate and Treat. - Physical Therapy Evaluate and Treat. PHYSICAL EXAM - Gen Alert and awake Lying in bed No apparent distress Oriented to: person, time, and place - Skin left hip incision intact No numbness - Eyes No discharge - ENMT No abnormalities - Neck No abnormalities - CVS RRR - Chest Clear - Abd +bowel sounds - GI Soft Deferred - No abnormalities - Ext Left hip surgical site has good hemostasis. - MSK 4+/5 weakness in left lower extremity - Neuro No abnormalities - Psych No abnormalities ASSESSMENT: Pt. is a 73 yo Right-handed white female.Her impairment category is Orthopaedic Disorders 08 - Unila teral Hip Fracture (08.11).Pre-morbidly, Pt. was independent/mod-I in Sphincter Control, Transfers Co ntrol, Communication, Social Cognition, Self-Care, and Locomotion; and she had good Sphincter Control .Currently, she has deficits of Safety Awareness, Transfers Control, Balance, Self-Care, Locomotion, and Endurance.Pt. is now referred to [facility] for acute in-patient rehabilit ation in order to maximize patient's functional independence in activities of daily living, strength, ROM, and mobility.- Rehab Goal Patient has realistic goal of being discharged at assistance level 6-Candy to reside at Home with Fam brian/Relatives. MDM/PLAN: - Physical Therapy Decreased range of motion - to improve, our physical therapists will perform initial evaluation of p t's status upon admission and devise an individualized program for increasing patient's Range of Willis on. Gait dysfunction - to improve, our physical therapists will perform initial evaluation of pt's statu s upon admission and devise an individualized program for Gait Training, and Wheel Chair mobility Inability to transfer - to improve, our physical therapists will perform initial evaluation of pt's status upon admission and devise an individualized program for Bed mobility Need for home safety evaluation - to improve, our physical therapists will perform initial evaluatio n of pt's status upon admission and devise an individualized program for Home Evaluation Need in caregiver upon discharge - to improve, our physical therapists will perform initial evaluati on of pt's status upon admission and devise an individualized program for Caregiver Training New precaution - to improve, our physical therapists will perform initial evaluation of pt's status upon admission and devise an individualized program for Patient precaution education Poor balance - to improve, our physical therapists will perform initial evaluation of pt's status up on admission and devise an individualized program for Balance Training Poor endurance - to improve, our physical therapists will perform initial evaluation of pt's status upon admission and devise an individualized program for Endurance Training Weakness - to improve, our physical therapists will perform initial evaluation of pt's status upon a dmission and devise an individualized program for Aquatic Therapy, Neuromuscular Reeducation, and Str engthening Achieving independence - to improve, our physical therapists will perform initial evaluation of pt's status upon admission and devise an individualized program for Community Reintegration Activities - Occupational Therapy ADL deficits - to improve, our occupation therapists will perform initial evaluation of pt's status upon admission and devise an individualized program for Bathing, Bed mobility, Community Reintegratio n, Cooking, Dressing, Eating, Fine Motor Skills, Grooming, Homemaking, Kitchen Mobility, Laundry, Pat ient Education, Safety Awareness, Splinting - Positioning, Transfers(Toilet, Tub, Shower), and Wheel Chair Management Need for med care manager - to improve, our occupation therapists will perform initial evaluation of pt's status upon admission and devise an individualized program for Caregiver Training Weakness - to improve, our occupation therapists will perform initial evaluation of pt's status upon admission and devise an individualized program for Aquatic Therapy, Balance, Endurance, UE ROM, and UE strengthening - Anterior Hip Precaution No abduction No active extension No adduction across midline No external rotation No hip flexion >90 degrees No internal rotation - Diet - Liquid Texture Continue Regular - Tube Feed Continue N/A - Diet Type Continue Regular - Posterior Hip Precaution No adduction across midline No external rotation No hip flexion >90 degrees No internal rotation No wheel chair propulsion - Weight Bearing Precaution TTWB left LE - Skin care per protocol - Diet - Solid Texture Continue Regular - Shower allowing shower FUNCTIONAL STATUS: UPDATED AT WEEKLY TEAM CONFERENCE - Bladder Same accident frequency: 7-Ind - No accidents in the past 7 days - Bowel Same accident frequency: 7-Ind - No accidents in the past 7 days - Walking Same score based on distance walked: 1(<=50ft) - Wheelchair Same score based on distance traveled: 0(N/A) FUNCTIONAL STATUS: - Self-Care A. Eating sup B. Grooming Ind C. Bathing sup D. Dressing - Upper sup E. Dressing - Lower Nelson F. Toileting Nelson - Sphincter Control G: Bladder control Ind H: Bowel control Ind - Transfers Control I. Bed/Chair/Wheelchair modA J. Toilet modA K. Tub/Shower ADNO - Locomotion L. Walk/Wheelchair (C) modA L. Walk/Wheelchair (W) modA M. Stairs ADNO - Communication N. Comprehension (B) Ind O. Expression (B) Ind - Social Cognition P. Social Interaction Ind Q. Problem Solving Ind R. Memory Ind - Endurance Poor - Balance Poor - Safety Awareness Fair CURRENT FUNC. DEFICITS: Safety Awareness, Transfers Control, Balance, Self-Care, Locomotion, and Endurance SIGNATURE PANEL: (CDT)
[2018-07-12] MEDS: PARoxetine HCl 10 MG TAB PO SCH (20:35)
[2018-07-12] MEDS: ATORVASTATIN 10 MG TAB PO SCH (20:35)
[2018-07-12] MEDS: HYDROCORTISONE 1 % CREAM 30GM TOP PRN (20:36)
--- NOTE | 2018-07-12 21:12 | P.PN ---
Subjective Date of Service: 07/12/18 Chief Complaint: PAIN HAS IMPROVED. Subjective: Improving DOING WELL. L LEG SWELLING. I EXPLAINED NO CLOTS ARE SEEN. WILL DO COMPRESSION. HER STOCKINGS ARE HELPING HTE PAIN NOW. LESS COMPLAINTS NOW STABLE, TO GO HOME TUESDAY. Review of Systems 10-point ROS is otherwise unremarkable Physical Examination - Vital Signs Temperature: 98.5 F Blood Pressure: 120/52 Pulse: 72 Respirations: 17 Pulse Ox (%): 98 - Physical Exam General: Alert, In no apparent distress HEENT: Atraumatic, PERRLA, EOMI Neck: Supple, JVD not distended Respiratory: Clear to auscultation bilaterally, Normal air movement Cardiovascular: Regular rate/rhythm, Normal S1 S2 Gastrointestinal: Normal bowel sounds, No tenderness Musculoskeletal: No tenderness Integumentary: No rashes Neurological: Normal speech, Normal tone, Normal affect Lymphatics: No axilla or inguinal lymphadenopathy - Studies Medications List Reviewed: Yes Assessment And Plan - Current Problems (Diagnosis) (1) A-fib Current Visit: No Status: Acute Plan: STABLE ON MEDS SOTALOL AND XARELTO STABLE, NO CHANGS LAB BIW Qualifiers: Atrial fibrillation type: chronic Qualified Code(s): I48.2 - Chronic atrial fibrillation (2) Fracture of femoral neck, left, closed Onset Date: 06/26/18 Current Visit: No Status: Acute Plan: RESUME PT ALREADY HAS BEEN GIVEN RECLAST FOR BONES. RESIUME PT STABLE, RESUME PT. NO CHANGES. WATCH LAB. GRADUAL IMPROVEMENT. Qualifiers: (3) Lower leg edema Current Visit: Yes Status: Acute Plan: VENOUS DOPPLER L LEG. STOCKINGS. IF CAN. IMPROVED. GRADUALLY. (4) Claudication Current Visit: Yes Status: Acute Plan: ART DOPPLER L LEG.
[2018-07-12] MEDS: TRAMADOL HCL 50 MG TAB PO PRN (23:33)
--- NOTE | 2018-07-13 02:21 | FAST ---
SHIFT START DATE/TIME: 07/12/2018 19:00 (CDT) SHIFT END DATE/TIME: 07/13/2018 07:00 (CDT) NAME FRANCE BAUMANN DATE OF : 1945 DATE OF ADMISSION: 07/02/2018 14:34 (CDT) PHONE: AGE: 73 N# [id number] GENDER: Female ENCOUNTER PHYSICIAN: Dr. Luke Major M.D. ADMISSION DIAGNOSIS: - Orthopaedic Disorders 08 - Unilateral Hip Fracture (08.11) Left Femoral Neck Fracture. EATING: Activity did not occur on this shift EATING - SCORE: 0-UNK GROOMING: Oral care Wash, rinse, and dry face Wash, rinse, and dry hands GROOMING - STEP 1: Does the patient require assistance when grooming? Yes. GROOMING - STEP 2: Does the patient require the assistance of a helper? Yes. GROOMING - STEP 3: How much assistance does the patient require from the helper? Only prior equipment preparation/set up from the helper GROOMING - SCORE: 5-SUP BATHING: Activity did not occur on this shift BATHING - SCORE: 0-UNK DRESSING - UPPER BODY: Patient is not dressing in public clothing ARTICLES SCORE Total number of steps: 0 DRESSING - UPPER BODY - SCORE: 0-UNK DRESSING - LOWER BODY: Patient is not dressing in public clothing ARTICLES SCORE Total number of steps: 0 DRESSING - LOWER BODY - SCORE: 0-UNK TOILETING: TOILETING - STEP 1: Does the patient require assistance with toileting? Yes. TOILETING - STEP 2: Does the patient require the assistance of a helper? Yes. TOILETING - STEP 3: How much assistance does the patient require from the helper? Only supervision TOILETING - SCORE: 5-SUP BLADDER MANAGEMENT: BLADDER MANAGEMENT - STEP 1: Does the patient control the bladder completely and intentionally without equipment or devices or med ications, and is always continent? No. BLADDER MANAGEMENT - STEP 2: Does the patient require the assistance of a helper? Yes. BLADDER MANAGEMENT - STEP 3: How much assistance does the patient require from the helper? Only supervision, stand-by, cuing, or c oaxing BLADDER MANAGEMENT - SCORE: 5-SUP BOWEL MANAGEMENT: Activity did not occur on this shift BOWEL MANAGEMENT - SCORE: 7-IND TRANSFERS: BED, CHAIR, WHEELCHAIR: TRANSFERS: BED, CHAIR, WHEELCHAIR - STEP 1: Does the patient require assistance with bed, chair, or wheelchair transfers? Yes. TRANSFERS: BED, CHAIR, WHEELCHAIR - STEP 2: Does the patient require the assistance of a helper? Yes. TRANSFERS: BED, CHAIR, WHEELCHAIR - STEP 3: How much assistance does the patient require from the helper? Lifting of the legs TRANSFERS: BED, CHAIR, WHEELCHAIR - STEP 4: How many legs does the patient require the helper to lift? one leg TRANSFERS: BED, CHAIR, WHEELCHAIR - SCORE: 4-MIN TRANSFERS: TOILET: TRANSFERS: TOILET - STEP 1: Does the patient require assistance with toilet transfers? Yes. TRANSFERS: TOILET - STEP 2: Does the patient require the assistance of a helper? Yes. TRANSFERS: TOILET - STEP 3: How much assistance does the patient require from the helper? Patient performs half or more of the tr ansferring tasks TRANSFERS: TOILET - STEP 4: Does the patient need only incidental help such as contact guard or steadying during toilet transfer? Yes. TRANSFERS: TOILET - SCORE: 4-MIN TRANSFERS: SHOWER: Activity did not occur on this shift TRANSFERS: SHOWER - SCORE: 0-UNK TRANSFERS: TUB: Activity did not occur on this shift TRANSFERS: TUB - SCORE: 0-UNK LOCOMOTION: WALK: Activity did not occur on this shift LOCOMOTION: WALK - SCORE: 0-UNK LOCOMOTION: WHEELCHAIR: Activity did not occur on this shift LOCOMOTION: WHEELCHAIR - SCORE: 0-UNK COMPREHENSION: COMPREHENSION: TYPE: Both COMPREHENSION - STEP 1: Does the patient require help to understand complex and abstract ideas (such as current events, finan shea, discharge planning, medical issues, relationships, etc)? No. COMPREHENSION - STEP 2: Does the patient need extra time, require an assistive device (such as glasses for visual comprehensi on or a hearing aid for auditory comprehension) or does s/he have mild difficulty understanding compl ex and abstract information? Yes. COMPREHENSION - SCORE: 6-TINO EXPRESSION EXPRESSION: TYPE: Both EXPRESSION - STEP 1: Does the patient require help expressing complex and abstract ideas (such as current events, finances , discharge planning, medical issues, relationships, etc)? No. EXPRESSION - STEP 2: Does the patient need extra time, require an assistive device (such as augmentive communication syste m or a communication board), OR does s/he have mild difficulty expressing complex and abstract ideas (including mild dysarthria or mild word-find problems)? No. EXPRESSION - SCORE: 7-IND SOCIAL INTERACTION: SOCIAL INTERACTION - STEP 1: Does the patient require a helper to interact with others in social and therapeutic situations? No. SOCIAL INTERACTION - STEP 2: Does the patient need extra time in social situations, OR does s/he interact with staff, other patien ts, and family members ONLY in structured environments, OR does s/he require medication for social in teraction? Yes, patient needs extra time SOCIAL INTERACTION - SCORE: 6-TINO PROBLEM SOLVING: PROBLEM SOLVING - STEP 1: Does the patient need help to solve complex problems such as managing a checking account or confronti ng interpersonal problems? No. PROBLEM SOLVING - STEP 2: Does the patient require extra time to make decisions or solve problems, OR does s/he have slight dif ficulty reading, initiating, or self-correcting in unfamiliar situations? Yes, patient needs extra ti me. PROBLEM SOLVING - SCORE: 6-TINO MEMORY: MEMORY - STEP 1: Does the patient need help to remember frequently encountered people, daily routines, and executing r equests? No. MEMORY - STEP 2: Does the patient have slight difficulty recognizing frequently encountered people, daily routines, or executing requests without the need for repetition or using self-initiated or environmental cues to remember? No. MEMORY - SCORE: 7-IND
[2018-07-13] MEDS: SOTALOL HCL 80 MG TAB PO SCH ×2 (05:03→17:00)
[2018-07-13 06:04] LABS: Absolute Lymphocytes (CBC) 2.4 K/uL (0.7-4.9); Absolute Monocytes 0.8 K/uL (0.1-1.3); Absolute Neutrophil 5.2 K/uL (1.8-8.0); Basophils % 0.8 % (0-1.3); Eosinophils % 2.3 % (0-4.4); Hematocrit 35.1 % (36.0-45.0); Lymphocytes % 27.3 % (15.3-44.8); MCH 29.8 pg (27.0-35.0); MPV 9.8 fL (7.6-11.3); Monocytes % 9.2 % (3.3-12.3)
[2018-07-13 06:35] LABS: Albumin 2.7 g/dL (3.4-5.0); BUN Blood Urea Nitrogen 18 mg/dL (7-18); Bicarbonate 30 mmol/L (21-32); Glucose Level 99 mg/dL (74-106); Potassium 4.2 mmol/L (3.5-5.1); Prealbumin 15.2 mg/dL (20-40); Sodium Level 140 mmol/L (136-145)
[2018-07-13] MEDS: HYDROCORTISONE 1 % CREAM 30GM TOP PRN (07:36)
[2018-07-13] MEDS: PROMOD 30 ML DOSE PO SCH ×2 (08:00→19:00)
[2018-07-13] MEDS: FE SULF/FA/VIT B COMP & C TAB PO SCH (08:05)
[2018-07-13] MEDS: CRANBERRY FRUIT EXTRACT 200 MG CAP PO SCH ×2 (08:05→20:41)
[2018-07-13] MEDS: POTASSIUM CL SA 10 MEQ TAB PO SCH (08:05)
[2018-07-13] MEDS: GABAPENTIN 300 MG CAP PO SCH ×2 (08:05→20:41)
[2018-07-13] MEDS: MAGNESIUM OXIDE 400 MG TAB PO SCH ×2 (08:06→20:41)
[2018-07-13] MEDS: PANTOPRAZOLE 40MG TABLET PO SCH (08:06)
[2018-07-13] MEDS: VITAMIN D 5,000 UNIT CAP PO SCH (08:06)
[2018-07-13] MEDS: ASCORBIC ACID 500 MG TABLET PO SCH (08:06)
[2018-07-13] MEDS: FERROUS SULFATE 325 MG TAB PO SCH (08:06)
[2018-07-13] MEDS: ASPIRIN EC 81 MG TAB PO SCH (08:06)
[2018-07-13] MEDS: CALCIUM CARBONATE 500 MG TAB PO SCH ×2 (08:07→20:41)
[2018-07-13] MEDS: BACLOFEN 10 MG TAB PO PRN (08:07)
[2018-07-13] MEDS: SPIRONOLACTONE 25 MG TABLET PO SCH (08:07)
[2018-07-13] MEDS: TRAMADOL HCL 50 MG TAB PO PRN (12:02)
--- NOTE | 2018-07-13 12:31 | FAST ---
SHIFT START DATE/TIME: 07/13/2018 07:00 (CDT) SHIFT END DATE/TIME: 07/13/2018 19:00 (CDT) NAME FRANCE BAUMANN DATE OF : 1945 DATE OF ADMISSION: 07/02/2018 14:34 (CDT) PHONE: AGE: 73 N# [id number] GENDER: Female ENCOUNTER PHYSICIAN: Dr. Luke Major M.D. ADMISSION DIAGNOSIS: - Orthopaedic Disorders 08 - Unilateral Hip Fracture (08.11) Left Femoral Neck Fracture. EATING: EATING - STEP 1: Does the patient require assistance when eating? Yes. EATING - STEP 2: Does the patient require the assistance of a helper? No, patient only requires an assistive device, O R s/he takes more than reasonable time to eat, OR there is a safety concern, OR s/he requires modifie d food consistency EATING - SCORE: 6-TINO GROOMING: Comb/brush hair Oral care Wash, rinse, and dry face Wash, rinse, and dry hands GROOMING - STEP 1: Does the patient require assistance when grooming? Yes. GROOMING - STEP 2: Does the patient require the assistance of a helper? Yes. GROOMING - STEP 3: How much assistance does the patient require from the helper? Only prior equipment preparation/set up from the helper GROOMING - SCORE: 5-SUP BATHING: Activity did not occur on this shift BATHING - SCORE: 0-UNK DRESSING - UPPER BODY: Activity did not occur on this shift ARTICLES SCORE Total number of steps: 0 DRESSING - UPPER BODY - SCORE: 0-UNK DRESSING - LOWER BODY: Activity did not occur on this shift ARTICLES SCORE Total number of steps: 0 DRESSING - LOWER BODY - SCORE: 0-UNK TOILETING: TOILETING - STEP 1: Does the patient require assistance with toileting? Yes. TOILETING - STEP 2: Does the patient require the assistance of a helper? Yes. TOILETING - STEP 3: How much assistance does the patient require from the helper? Hands-on assistance from the helper TOILETING - STEP 4: Of the 3 tasks: 1) Adjusting clothing prior to use, 2) Cleansing of perineal area, 3) Adjusting clot feroz after use; How many tasks does the patient perform WITHOUT assistance of the helper? Two tasks TOILETING - SCORE: 3-MOD BLADDER MANAGEMENT: BLADDER MANAGEMENT - STEP 1: Does the patient control the bladder completely and intentionally without equipment or devices or med ications, and is always continent? Yes. BLADDER MANAGEMENT - SCORE: 7-IND BOWEL MANAGEMENT: BOWEL MANAGEMENT - STEP 1: Does the patient control bowels completely and intentionally without equipment devices or medications AND is always continent? No. BOWEL MANAGEMENT - STEP 2: Does the patient require the assistance of a helper? No, patient requires medication for control such as stool softeners, suppositories, laxatives, enemas, or OTC medications BOWEL MANAGEMENT - SCORE: 6-TINO TRANSFERS: BED, CHAIR, WHEELCHAIR: TRANSFERS: BED, CHAIR, WHEELCHAIR - STEP 1: Does the patient require assistance with bed, chair, or wheelchair transfers? Yes. TRANSFERS: BED, CHAIR, WHEELCHAIR - STEP 2: Does the patient require the assistance of a helper? Yes. TRANSFERS: BED, CHAIR, WHEELCHAIR - STEP 3: How much assistance does the patient require from the helper? Steadying/guiding assistance TRANSFERS: BED, CHAIR, WHEELCHAIR - SCORE: 4-MIN TRANSFERS: TOILET: TRANSFERS: TOILET - STEP 1: Does the patient require assistance with toilet transfers? Yes. TRANSFERS: TOILET - STEP 2: Does the patient require the assistance of a helper? Yes. TRANSFERS: TOILET - STEP 3: How much assistance does the patient require from the helper? Only supervision, cuing, coaxing, OR he lp to set out transfer equipment or to lock brakes and/or lift foot rests TRANSFERS: TOILET - SCORE: 5-SUP TRANSFERS: SHOWER: Activity did not occur on this shift TRANSFERS: SHOWER - SCORE: 0-UNK TRANSFERS: TUB: Activity did not occur on this shift TRANSFERS: TUB - SCORE: 0-UNK LOCOMOTION: WALK: Activity did not occur on this shift LOCOMOTION: WALK - SCORE: 0-UNK LOCOMOTION: WHEELCHAIR: Activity did not occur on this shift LOCOMOTION: WHEELCHAIR - SCORE: 0-UNK COMPREHENSION: COMPREHENSION: TYPE: Both COMPREHENSION - STEP 1: Does the patient require help to understand complex and abstract ideas (such as current events, finan shea, discharge planning, medical issues, relationships, etc)? No. COMPREHENSION - STEP 2: Does the patient need extra time, require an assistive device (such as glasses for visual comprehensi on or a hearing aid for auditory comprehension) or does s/he have mild difficulty understanding compl ex and abstract information? Yes. COMPREHENSION - SCORE: 6-TINO EXPRESSION EXPRESSION: TYPE: Both EXPRESSION - STEP 1: Does the patient require help expressing complex and abstract ideas (such as current events, finances , discharge planning, medical issues, relationships, etc)? No. EXPRESSION - STEP 2: Does the patient need extra time, require an assistive device (such as augmentive communication syste m or a communication board), OR does s/he have mild difficulty expressing complex and abstract ideas (including mild dysarthria or mild word-find problems)? Yes. EXPRESSION - SCORE: 6-TINO SOCIAL INTERACTION: SOCIAL INTERACTION - STEP 1: Does the patient require a helper to interact with others in social and therapeutic situations? No. SOCIAL INTERACTION - STEP 2: Does the patient need extra time in social situations, OR does s/he interact with staff, other patien ts, and family members ONLY in structured environments, OR does s/he require medication for social in teraction? Yes, patient needs extra time SOCIAL INTERACTION - SCORE: 6-TINO PROBLEM SOLVING: PROBLEM SOLVING - STEP 1: Does the patient need help to solve complex problems such as managing a checking account or confronti ng interpersonal problems? No. PROBLEM SOLVING - STEP 2: Does the patient require extra time to make decisions or solve problems, OR does s/he have slight dif ficulty reading, initiating, or self-correcting in unfamiliar situations? Yes, patient needs extra ti me. PROBLEM SOLVING - SCORE: 6-TINO MEMORY: MEMORY - STEP 1: Does the patient need help to remember frequently encountered people, daily routines, and executing r equests? No. MEMORY - STEP 2: Does the patient have slight difficulty recognizing frequently encountered people, daily routines, or executing requests without the need for repetition or using self-initiated or environmental cues to remember? Yes. MEMORY - SCORE: 6-TINO SIGNATURE PANEL: The following modified sections: Eating - Score, Grooming - Score, Bathing - Score, Dressing - Upper Body - Score, Dressing - Lower Body - Score, Toileting - Score, Bladder Management - Score, Bowel Man agement - Score, Transfers: Bed, Chair, Wheelchair - Score, Transfers: Toilet - Score, Transfers: Shonna wer - Score, Transfers: Tub - Score, Locomotion: Walk - Score, Locomotion: Wheelchair - Score, Compre hension - Score, Expression - Score, Social Interaction - Score, Problem Solving - Score, Memory - Sc ore were [electronically] signed by Aayush Reeves on TueJul 13 2018 12:30:43 GMT-0500 (Central Daylight Time)
--- NOTE | 2018-07-13 16:42 | R.PN ---
ENCOUNTER DATE AND TIME: 07/13/2018 16:40 (CDT) NAME FRANCE BAUMANN DATE OF : 1945 DATE OF ADMISSION: 07/02/2018 14:34 (CDT) Left Femoral Neck FractureCHIEF COMPLAINT: Left hip fracture SUBJECTIVE: Pt denied any depression. Pt denied any Shortness of Breath. Ambulated 750' with standby assistance using a rolling walker. Propelled wheelchair 250' with modifie d independence. VITAL SIGNS Temperature: 97 F SBP/DBP: 123/57 Pulse: 64 Resp: 14 MEDICATION ALLERGIES: Amoxicillin Codeine Ibuprofen Etodolac Annaprox ENVIRONMENTAL ALLERGIES: None Known - Substance Allergies None Known - Other Allergies None Known NURSING: - Shower allowing shower - Skin care per protocol PRECAUTIONS: - Anterior Hip Precaution No abduction No active extension No adduction across midline No external rotation No hip flexion >90 degrees No internal rotation - Posterior Hip Precaution No adduction across midline No external rotation No hip flexion >90 degrees No internal rotation No wheel chair propulsion - Weight Bearing Precaution TTWB left LE ACTIVITIES OOB only with supervision THERAPIES: - Occupational Therapy Evaluate and Treat. - Physical Therapy Evaluate and Treat. PHYSICAL EXAM - Gen Alert and awake Lying in bed No apparent distress Oriented to: person, time, and place - Skin left hip incision intact No numbness - Eyes No discharge - ENMT No abnormalities - Neck No abnormalities - CVS RRR - Chest Clear - Abd +bowel sounds - GI Soft Deferred - No abnormalities - Ext Left hip surgical site has good hemostasis. - MSK 4+/5 weakness in left lower extremity - Neuro No abnormalities - Psych No abnormalities ASSESSMENT: Pt. is a 73 yo Right-handed white female.Her impairment category is Orthopaedic Disorders 08 - Unila teral Hip Fracture (08.11).Pre-morbidly, Pt. was independent/mod-I in Sphincter Control, Transfers Co ntrol, Communication, Social Cognition, Self-Care, and Locomotion; and she had good Sphincter Control .Currently, she has deficits of Safety Awareness, Transfers Control, Balance, Self-Care, Locomotion, and Endurance.Pt. is now referred to [facility] for acute in-patient rehabilit ation in order to maximize patient's functional independence in activities of daily living, strength, ROM, and mobility.- Rehab Goal Patient has realistic goal of being discharged at assistance level 6-Candy to reside at Home with Fam brian/Relatives. MDM/PLAN: - Physical Therapy Decreased range of motion - to improve, our physical therapists will perform initial evaluation of p t's status upon admission and devise an individualized program for increasing patient's Range of Willis on. Gait dysfunction - to improve, our physical therapists will perform initial evaluation of pt's statu s upon admission and devise an individualized program for Gait Training, and Wheel Chair mobility Inability to transfer - to improve, our physical therapists will perform initial evaluation of pt's status upon admission and devise an individualized program for Bed mobility Need for home safety evaluation - to improve, our physical therapists will perform initial evaluatio n of pt's status upon admission and devise an individualized program for Home Evaluation Need in caregiver upon discharge - to improve, our physical therapists will perform initial evaluati on of pt's status upon admission and devise an individualized program for Caregiver Training New precaution - to improve, our physical therapists will perform initial evaluation of pt's status upon admission and devise an individualized program for Patient precaution education Poor balance - to improve, our physical therapists will perform initial evaluation of pt's status up on admission and devise an individualized program for Balance Training Poor endurance - to improve, our physical therapists will perform initial evaluation of pt's status upon admission and devise an individualized program for Endurance Training Weakness - to improve, our physical therapists will perform initial evaluation of pt's status upon a dmission and devise an individualized program for Aquatic Therapy, Neuromuscular Reeducation, and Str engthening Achieving independence - to improve, our physical therapists will perform initial evaluation of pt's status upon admission and devise an individualized program for Community Reintegration Activities - Occupational Therapy ADL deficits - to improve, our occupation therapists will perform initial evaluation of pt's status upon admission and devise an individualized program for Bathing, Bed mobility, Community Reintegratio n, Cooking, Dressing, Eating, Fine Motor Skills, Grooming, Homemaking, Kitchen Mobility, Laundry, Pat ient Education, Safety Awareness, Splinting - Positioning, Transfers(Toilet, Tub, Shower), and Wheel Chair Management Need for child care education coordinator - to improve, our occupation therapists will perform initial evaluation of pt's status upon admission and devise an individualized program for Caregiver Training Weakness - to improve, our occupation therapists will perform initial evaluation of pt's status upon admission and devise an individualized program for Aquatic Therapy, Balance, Endurance, UE ROM, and UE strengthening - Anterior Hip Precaution No abduction No active extension No adduction across midline No external rotation No hip flexion >90 degrees No internal rotation - Diet - Liquid Texture Continue Regular - Tube Feed Continue N/A - Diet Type Continue Regular - Posterior Hip Precaution No adduction across midline No external rotation No hip flexion >90 degrees No internal rotation No wheel chair propulsion - Weight Bearing Precaution TTWB left LE - Skin care per protocol - Diet - Solid Texture Continue Regular - Shower allowing shower FUNCTIONAL STATUS: UPDATED AT WEEKLY TEAM CONFERENCE - Bladder Same accident frequency: 7-Ind - No accidents in the past 7 days - Bowel Same accident frequency: 7-Ind - No accidents in the past 7 days - Walking Same score based on distance walked: 1(<=50ft) - Wheelchair Same score based on distance traveled: 0(N/A) FUNCTIONAL STATUS: - Self-Care A. Eating sup B. Grooming Ind C. Bathing sup D. Dressing - Upper sup E. Dressing - Lower Nelson F. Toileting Nelson - Sphincter Control G: Bladder control Ind H: Bowel control Ind - Transfers Control I. Bed/Chair/Wheelchair modA J. Toilet modA K. Tub/Shower ADNO - Locomotion L. Walk/Wheelchair (C) modA L. Walk/Wheelchair (W) modA M. Stairs ADNO - Communication N. Comprehension (B) Ind O. Expression (B) Ind - Social Cognition P. Social Interaction Ind Q. Problem Solving Ind R. Memory Ind - Endurance Poor - Balance Poor - Safety Awareness Fair CURRENT FUNC. DEFICITS: Safety Awareness, Transfers Control, Balance, Self-Care, Locomotion, and Endurance SIGNATURE PANEL: (CDT)
[2018-07-13] MEDS: RIVAROXABAN 20 MG TABLET PO SCH (17:00)
--- NOTE | 2018-07-13 17:33 | P.PN ---
Subjective Date of Service: 07/13/18 Chief Complaint: SOME RASH BENEATH BREASTS PER NURSE. Subjective: Improving DOING WELL. L LEG SWELLING. I EXPLAINED NO CLOTS ARE SEEN. WILL DO COMPRESSION. HER STOCKINGS ARE HELPING HTE PAIN NOW. LESS COMPLAINTS NOW STABLE, TO GO HOME TUESDAY. Review of Systems 10-point ROS is otherwise unremarkable Physical Examination - Vital Signs Temperature: 97.0 F Blood Pressure: 123/57 Pulse: 64 Respirations: 14 Pulse Ox (%): 100 - Physical Exam General: Alert HEENT: Atraumatic, PERRLA, EOMI Neck: Supple, JVD not distended Respiratory: Clear to auscultation bilaterally, Normal air movement Cardiovascular: Regular rate/rhythm, Normal S1 S2 Gastrointestinal: Normal bowel sounds, No tenderness Musculoskeletal: No tenderness Integumentary: Rash(es) (KAYLAH LIKE PER NURSE.) Neurological: Normal speech, Normal tone, Normal affect Lymphatics: No axilla or inguinal lymphadenopathy - Studies Laboratory Data (last 24 hrs) 07/13/18 05:29: Sodium 140, Potassium 4.2, BUN 18, Creatinine 0.60, Glucose 99 07/13/18 05:29: WBC 8.6, Hgb 11.6 L, Hct 35.1 L, Plt Count 432 H Medications List Reviewed: Yes Assessment And Plan - Current Problems (Diagnosis) (1) A-fib Current Visit: No Status: Acute Plan: STABLE ON MEDS SOTALOL AND XARELTO STABLE, NO CHANGS LAB BIW Qualifiers: Atrial fibrillation type: chronic Qualified Code(s): I48.2 - Chronic atrial fibrillation (2) Fracture of femoral neck, left, closed Onset Date: 06/26/18 Current Visit: No Status: Acute Plan: RESUME PT ALREADY HAS BEEN GIVEN RECLAST FOR BONES. RESIUME PT STABLE, RESUME PT. NO CHANGES. WATCH LAB. GRADUAL IMPROVEMENT. Qualifiers: (3) Lower leg edema Current Visit: Yes Status: Acute Plan: VENOUS DOPPLER L LEG. STOCKINGS. IF CAN. IMPROVED. GRADUALLY. (4) Claudication Current Visit: Yes Status: Acute Plan: ART DOPPLER L LEG. (5) Kaylah albicans infection Current Visit: Yes Status: Acute Plan: IN THE FOLD BELOW BREASTS NYSTATIN POWDER SHOULD WORK.
[2018-07-13] MEDS: NYSTATIN PWDR 100000 UNIT/GM TOP SCH (20:39)
[2018-07-13] MEDS: ATORVASTATIN 10 MG TAB PO SCH (20:41)
[2018-07-13] MEDS: PARoxetine HCl 10 MG TAB PO SCH (20:42)
--- NOTE | 2018-07-14 02:09 | FAST ---
SHIFT START DATE/TIME: 07/13/2018 19:00 (CDT) SHIFT END DATE/TIME: 07/14/2018 07:00 (CDT) NAME FRANCE BAUMANN DATE OF : 1945 DATE OF ADMISSION: 07/02/2018 14:34 (CDT) PHONE: AGE: 73 SSN# [id number] GENDER: Female ENCOUNTER PHYSICIAN: Dr. Luke Major M.D. ADMISSION DIAGNOSIS: - Orthopaedic Disorders 08 - Unilateral Hip Fracture (08.11) Left Femoral Neck Fracture. EATING: Activity did not occur on this shift EATING - SCORE: 0-UNK GROOMING: Activity did not occur on this shift GROOMING - SCORE: 0-UNK BATHING: Activity did not occur on this shift BATHING - SCORE: 0-UNK DRESSING - UPPER BODY: Activity did not occur on this shift ARTICLES SCORE Total number of steps: 0 DRESSING - UPPER BODY - SCORE: 0-UNK DRESSING - LOWER BODY: Activity did not occur on this shift ARTICLES SCORE Total number of steps: 0 DRESSING - LOWER BODY - SCORE: 0-UNK TOILETING: TOILETING - STEP 1: Does the patient require assistance with toileting? Yes. TOILETING - STEP 2: Does the patient require the assistance of a helper? Yes. TOILETING - STEP 3: How much assistance does the patient require from the helper? Only supervision TOILETING - SCORE: 5-SUP BLADDER MANAGEMENT: BLADDER MANAGEMENT - STEP 1: Does the patient control the bladder completely and intentionally without equipment or devices or med ications, and is always continent? No. BLADDER MANAGEMENT - STEP 2: Does the patient require the assistance of a helper? Yes. BLADDER MANAGEMENT - STEP 3: How much assistance does the patient require from the helper? Only supervision, stand-by, cuing, or c oaxing BLADDER MANAGEMENT - SCORE: 5-SUP BOWEL MANAGEMENT: Activity did not occur on this shift BOWEL MANAGEMENT - SCORE: 7-IND TRANSFERS: BED, CHAIR, WHEELCHAIR: TRANSFERS: BED, CHAIR, WHEELCHAIR - STEP 1: Does the patient require assistance with bed, chair, or wheelchair transfers? Yes. TRANSFERS: BED, CHAIR, WHEELCHAIR - STEP 2: Does the patient require the assistance of a helper? Yes. TRANSFERS: BED, CHAIR, WHEELCHAIR - STEP 3: How much assistance does the patient require from the helper? Lifting of the legs TRANSFERS: BED, CHAIR, WHEELCHAIR - STEP 4: How many legs does the patient require the helper to lift? both legs TRANSFERS: BED, CHAIR, WHEELCHAIR - SCORE: 3-MOD TRANSFERS: TOILET: TRANSFERS: TOILET - STEP 1: Does the patient require assistance with toilet transfers? Yes. TRANSFERS: TOILET - STEP 2: Does the patient require the assistance of a helper? Yes. TRANSFERS: TOILET - STEP 3: How much assistance does the patient require from the helper? Only supervision, cuing, coaxing, OR he lp to set out transfer equipment or to lock brakes and/or lift foot rests TRANSFERS: TOILET - SCORE: 5-SUP TRANSFERS: SHOWER: Activity did not occur on this shift TRANSFERS: SHOWER - SCORE: 0-UNK TRANSFERS: TUB: Activity did not occur on this shift TRANSFERS: TUB - SCORE: 0-UNK LOCOMOTION: WALK: Activity did not occur on this shift LOCOMOTION: WALK - SCORE: 0-UNK LOCOMOTION: WHEELCHAIR: Activity did not occur on this shift LOCOMOTION: WHEELCHAIR - SCORE: 0-UNK COMPREHENSION: COMPREHENSION: TYPE: Both COMPREHENSION - STEP 1: Does the patient require help to understand complex and abstract ideas (such as current events, finan shea, discharge planning, medical issues, relationships, etc)? No. COMPREHENSION - STEP 2: Does the patient need extra time, require an assistive device (such as glasses for visual comprehensi on or a hearing aid for auditory comprehension) or does s/he have mild difficulty understanding compl ex and abstract information? Yes. COMPREHENSION - SCORE: 6-TINO EXPRESSION EXPRESSION: TYPE: Both EXPRESSION - STEP 1: Does the patient require help expressing complex and abstract ideas (such as current events, finances , discharge planning, medical issues, relationships, etc)? No. EXPRESSION - STEP 2: Does the patient need extra time, require an assistive device (such as augmentive communication syste m or a communication board), OR does s/he have mild difficulty expressing complex and abstract ideas (including mild dysarthria or mild word-find problems)? No. EXPRESSION - SCORE: 7-IND SOCIAL INTERACTION: SOCIAL INTERACTION - STEP 1: Does the patient require a helper to interact with others in social and therapeutic situations? No. SOCIAL INTERACTION - STEP 2: Does the patient need extra time in social situations, OR does s/he interact with staff, other patien ts, and family members ONLY in structured environments, OR does s/he require medication for social in teraction? Yes, patient requires medication for social interaction SOCIAL INTERACTION - SCORE: 6-TINO PROBLEM SOLVING: PROBLEM SOLVING - STEP 1: Does the patient need help to solve complex problems such as managing a checking account or confronti ng interpersonal problems? No. PROBLEM SOLVING - STEP 2: Does the patient require extra time to make decisions or solve problems, OR does s/he have slight dif ficulty reading, initiating, or self-correcting in unfamiliar situations? No. PROBLEM SOLVING - SCORE: 7-IND MEMORY: MEMORY - STEP 1: Does the patient need help to remember frequently encountered people, daily routines, and executing r equests? No. MEMORY - STEP 2: Does the patient have slight difficulty recognizing frequently encountered people, daily routines, or executing requests without the need for repetition or using self-initiated or environmental cues to remember? No. MEMORY - SCORE: 7-IND SIGNATURE PANEL: The following modified sections: Eating - Score, Grooming - Score, Bathing - Score, Dressing - Upper Body - Score, Dressing - Lower Body - Score, Toileting - Score, Bladder Management - Score, Bowel Man agement - Score, Transfers: Bed, Chair, Wheelchair - Score, Transfers: Toilet - Score, Transfers: Shonna wer - Score, Transfers: Tub - Score, Locomotion: Walk - Score, Locomotion: Wheelchair - Score, Compre hension - Score, Expression - Score, Social Interaction - Score, Problem Solving - Score, Memory - Sc ore were [electronically] signed by Azucena Baptiste on TueJul 14 2018 02:08:08 T-0500 (Central Day light Time)
[2018-07-14] MEDS: SOTALOL HCL 80 MG TAB PO SCH ×2 (05:11→17:08)
[2018-07-14 06:44] VITALS: TEMP 96.6
[2018-07-14] MEDS: HYDROCORTISONE 1 % CREAM 30GM TOP PRN (08:06)
[2018-07-14] MEDS: ASCORBIC ACID 500 MG TABLET PO SCH (08:06)
[2018-07-14] MEDS: CRANBERRY FRUIT EXTRACT 200 MG CAP PO SCH (08:06)
[2018-07-14] MEDS: MAGNESIUM OXIDE 400 MG TAB PO SCH (08:07)
[2018-07-14] MEDS: CALCIUM CARBONATE 500 MG TAB PO SCH (08:07)
[2018-07-14] MEDS: VITAMIN D 5,000 UNIT CAP PO SCH (08:07)
[2018-07-14] MEDS: FERROUS SULFATE 325 MG TAB PO SCH (08:07)
[2018-07-14] MEDS: NYSTATIN PWDR 100000 UNIT/GM TOP SCH (08:07)
[2018-07-14] MEDS: POTASSIUM CL SA 10 MEQ TAB PO SCH (08:08)
[2018-07-14] MEDS: GABAPENTIN 300 MG CAP PO SCH (08:08)
[2018-07-14] MEDS: ASPIRIN EC 81 MG TAB PO SCH (08:08)
[2018-07-14] MEDS: PANTOPRAZOLE 40MG TABLET PO SCH (08:08)
[2018-07-14] MEDS: SPIRONOLACTONE 25 MG TABLET PO SCH (08:08)
[2018-07-14] MEDS: FE SULF/FA/VIT B COMP & C TAB PO SCH (08:08)
[2018-07-14] MEDS: TRAMADOL HCL 50 MG TAB PO PRN ×2 (08:09→17:08)
[2018-07-14] MEDS: PROMOD 30 ML DOSE PO SCH (08:10)
--- NOTE | 2018-07-14 09:32 | P.RH.PN ---
Estimated Length of Stay: 15 Expected Discharge Date: 07/14/18 Discharge Disposition Plan: Home Family Support: Yes Residential Goal: Mobility, Transfers, Self Care Vital Signs: Last Vital Signs Temp 96.6 F L 07/14/18 06:30 Pulse 65 07/14/18 08:08 Resp 16 07/14/18 06:30 BP 121/57 L 07/14/18 08:08 Pulse Ox 97 07/14/18 06:30 Laboratory: Laboratory Last Values WBC 8.6 K/uL (4.3-10.9) 07/13/18 05:29 RBC 3.90 M/uL (3.86-4.86) 07/13/18 05:29 Hgb 11.6 g/dL (12.0-15.0) L 07/13/18 05:29 Hct 35.1 % (36.0-45.0) L 07/13/18 05:29 MCV 90.0 fL (80-100) 07/13/18 05:29 MCH 29.8 pg (27.0-35.0) 07/13/18 05:29 MCHC 33.1 g/dL (32.0-36.0) 07/13/18 05:29 RDW 14.4 % (12.1-15.2) 07/13/18 05:29 Plt Count 432 K/uL (152-406) H 07/13/18 05:29 MPV 9.8 fL (7.6-11.3) 07/13/18 05:29 Neutrophils % 60.4 % (41.7-73.7) 07/13/18 05:29 Lymphocytes % 27.3 % (15.3-44.8) 07/13/18 05:29 Monocytes % 9.2 % (3.3-12.3) 07/13/18 05:29 Eosinophils % 2.3 % (0-4.4) 07/13/18 05:29 Basophils % 0.8 % (0-1.3) 07/13/18 05:29 Absolute Neutrophils 5.2 K/uL (1.8-8.0) 07/13/18 05:29 Absolute Lymphocytes 2.4 K/uL (0.7-4.9) 07/13/18 05:29 Absolute Monocytes 0.8 K/uL (0.1-1.3) 07/13/18 05:29 Absolute Eosinophils 0.2 K/uL (0-0.5) 07/13/18 05:29 Absolute Basophils 0.1 K/uL (0-0.5) 07/13/18 05:29 Sodium 140 mmol/L (136-145) 07/13/18 05:29 Potassium 4.2 mmol/L (3.5-5.1) 07/13/18 05:29 Chloride 105 mmol/L (98-107) 07/13/18 05:29 Carbon Dioxide 30 mmol/L (21-32) 07/13/18 05:29 BUN 18 mg/dL (7-18) 07/13/18 05:29 Creatinine 0.60 mg/dL (0.55-1.3) 07/13/18 05:29 Estimated GFR > 90 mL/min (=/>90) 07/13/18 05:29 Glucose 99 mg/dL (74-106) 07/13/18 05:29 Calcium 8.1 mg/dL (8.5-10.1) L 07/13/18 05:29 Magnesium 2.1 mg/dL (1.8-2.4) 07/03/18 05:50 Albumin 2.7 g/dL (3.4-5.0) L 07/13/18 05:29 Prealbumin 15.2 mg/dL (20-40) L 07/13/18 05:29 Urine Color Yellow 07/02/18 20:00 Urine Appearance Cloudy 07/02/18 20:00 Urine pH 7.5 (5.0-7.0) H 07/02/18 20:00 Ur Specific [place] 1.015 (1.005-1.030) 07/02/18 20:00 Urine Ketones Negative (NEG) 07/02/18 20:00 Urine Blood Negative (NEG) 07/02/18 20:00 Urine Nitrite Negative (NEG) 07/02/18 20:00 Urine Bilirubin Negative (NEG) 07/02/18 20:00 Urine Urobilinogen 1.0 mg/dL (0.2-1.0) 07/02/18 20:00 Ur Leukocyte Esterase 1+ (NEG) H 07/02/18 20:00 Urine RBC None seen /HPF (NONE SEEN) 07/02/18 20:00 Urine WBC 10-20 /HPF (<5) H 07/02/18 20:00 Ur Squamous Epith Cells <5 /HPF (NONE SEEN) 07/02/18 20:00 Ur Urothelial Cells <5 /HPF (NONE SEEN) 07/02/18 20:00 Urine Bacteria Loaded /HPF (<20) H 07/02/18 20:00 Urine Culture Reflexed Not needed 07/02/18 20:00 Urine Glucose Negative (NEG) 07/02/18 20:00 Urine Total Protein Negative (NEG) 07/02/18 20:00 Weight: 133 lb 14.4 oz Wound Present: No Closed Surgical Incision Present: Yes Negative Pressure Wound Therapy Present: No Physician Update: She is doing very well. Her labs have been reviewed and her H& H is stable. She is touch down weight bearing and is modified independent with physical and occupational therapy. Medication Issues: DVT Prophylaxis- Xarelto 20mg PO daily Pain Issues: Tramadol 50mg Q6H PRN PO. Gabapentin 600mg BID PO. Tylenol 500mg Q4H PRN PO Functional Improvement: Patient has met all short-term goals at this time and is progressing well toward long-term goals. Patient continues to improve w/ TDWB and gait distance. Functional Improvement Occupational Therapy: pt can benifit further therapy to address activity tolerance and energy conservation techniques for safety and for all adl and Iadl tasks. Cont to educate and train the pt on A/E for LB dressing for safety. Cont increasing pt's static standing balance for adl tasks and pt's UB strength for adl tasks. Cont with the POC and the goals by the supervising OTR. Summary: Patient's care plan and dress finisher goals have been reviewed and revised as necessary. Please see the Rehabilitation Signature page for all necessary signatures.
[2018-07-14] MEDS: ACETAMINOPHEN 500 MG TAB PO PRN (12:17)
--- NOTE | 2018-07-14 14:49 | P.PN ---
Subjective Date of Service: 07/14/18 Chief Complaint: SOME RASH BENEATH BREASTS PER NURSE. Subjective: Improving DOING WELL. L LEG SWELLING. I EXPLAINED NO CLOTS ARE SEEN. WILL DO COMPRESSION. HER STOCKINGS ARE HELPING HTE PAIN NOW. LESS COMPLAINTS NOW STABLE, TO GO HOME TUESDAY. GOING HOME TODAY FIINISHED PT SCHEDULE WILL RESUME RECLAST ANNLY. Physical Examination - Vital Signs Temperature: 96.6 F Blood Pressure: 121/57 Pulse: 65 Respirations: 16 Pulse Ox (%): 97 - Studies Medications List Reviewed: Yes Assessment And Plan - Current Problems (Diagnosis) (1) A-fib Current Visit: No Status: Acute Plan: STABLE ON MEDS SOTALOL AND XARELTO STABLE, NO CHANGS LAB BIW Qualifiers: Atrial fibrillation type: chronic Qualified Code(s): I48.2 - Chronic atrial fibrillation (2) Fracture of femoral neck, left, closed Onset Date: 06/26/18 Current Visit: No Status: Acute Plan: RESUME PT ALREADY HAS BEEN GIVEN RECLAST FOR BONES. RESIUME PT STABLE, RESUME PT. NO CHANGES. WATCH LAB. GRADUAL IMPROVEMENT. Qualifiers: (3) Lower leg edema Current Visit: Yes Status: Acute Plan: VENOUS DOPPLER L LEG. STOCKINGS. IF CAN. IMPROVED. GRADUALLY. (4) Claudication Current Visit: Yes Status: Acute Plan: ART DOPPLER L LEG. (5) Carisa albicans infection Current Visit: Yes Status: Acute Plan: IN THE FOLD BELOW BREASTS NYSTATIN POWDER SHOULD WORK.
--- NOTE | 2018-07-14 15:50 | FAST ---
ENCOUNTER DATE AND TIME: 07/13/2018 08:00 (CDT) NAME FRANCE BAUMANN DATE OF : 1945 DATE OF ADMISSION: 07/02/2018 14:34 (CDT) PHONE: AGE: 73 SSN# [id number] GENDER: Female ENCOUNTER PHYSICIAN: Dr. Luke Major M.D. ADMISSION DIAGNOSIS: - Orthopaedic Disorders 08 - Unilateral Hip Fracture (08.11) Left Femoral Neck Fracture. EATING: Activity did not occur on this shift EATING - SCORE: 0-UNK GROOMING: Activity did not occur on this shift GROOMING - SCORE: 0-UNK BATHING: Activity did not occur on this shift BATHING - SCORE: 0-UNK DRESSING - UPPER BODY: Activity did not occur on this shift Patient is not dressing in public clothing ARTICLES SCORE Total number of steps: 0 DRESSING - UPPER BODY - SCORE: 0-UNK DRESSING - LOWER BODY: Activity did not occur on this shift Patient is not dressing in public clothing ARTICLES SCORE Total number of steps: 0 DRESSING - LOWER BODY - SCORE: 0-UNK TOILETING: Activity did not occur on this shift TOILETING - SCORE: 0-UNK BLADDER MANAGEMENT: Activity did not occur on this shift BLADDER MANAGEMENT - SCORE: 7-IND BOWEL MANAGEMENT: Activity did not occur on this shift BOWEL MANAGEMENT - SCORE: 7-IND TRANSFERS: BED, CHAIR, WHEELCHAIR: TRANSFERS: BED, CHAIR, WHEELCHAIR - STEP 1: Does the patient require assistance with bed, chair, or wheelchair transfers? Yes. TRANSFERS: BED, CHAIR, WHEELCHAIR - STEP 2: Does the patient require the assistance of a helper? No. Patient only requires an assistive device fo r bed, chair, wheelchair transfers such as a sliding board, grab bar, or brace, OR s/he takes more th an reasonable time, OR there is a safety concern when s/he performs the transfers TRANSFERS: BED, CHAIR, WHEELCHAIR - SCORE: 6-TINO TRANSFERS: TOILET: Activity did not occur on this shift TRANSFERS: TOILET - SCORE: 0-UNK TRANSFERS: SHOWER: Activity did not occur on this shift TRANSFERS: SHOWER - SCORE: 0-UNK TRANSFERS: TUB: Activity did not occur on this shift TRANSFERS: TUB - SCORE: 0-UNK LOCOMOTION: WALK: LOCOMOTION: WALK - STEP 1: Does the patient need help to walk 150 feet? No. LOCOMOTION: WALK - STEP 2: Does the patient need an assistive device (such as an orthosis, prosthesis, crutches, or walker) to g o 150 feet, OR does s/he take more than reasonable time, OR is there a concern for safety? Yes, the p atient needs an assistive device LOCOMOTION: WALK - SCORE: 6-TINO LOCOMOTION: WHEELCHAIR: LOCOMOTION: WHEELCHAIR - STEP 1: Does the patient need help to go 150 feet in a wheelchair? No. LOCOMOTION: WHEELCHAIR - SCORE: 6-TINO LOCOMOTION: STAIRS: Activity did not occur on this shift LOCOMOTION: STAIRS - SCORE: 0-UNK COMPREHENSION: COMPREHENSION - SCORE: 0-UNK EXPRESSION EXPRESSION - SCORE: 0-UNK SOCIAL INTERACTION: SOCIAL INTERACTION - SCORE: 0-UNK PROBLEM SOLVING: PROBLEM SOLVING - SCORE: 0-UNK MEMORY: MEMORY - SCORE: 0-UNK SIGNATURE PANEL: The following modified sections: Transfers: Bed, Chair, Wheelchair - Score, Transfers: Toilet - Score , Locomotion: Walk - Score, Locomotion: Wheelchair - Score, Locomotion: Stairs - Score were [electron ically] signed by Melvin Millan PTA on TueJul 14 2018 15:49:40 GMT-0500 (Central Daylight Time)
[2018-07-14] MEDS: RIVAROXABAN 20 MG TABLET PO SCH (17:08)
[2018-07-14 17:12] VITALS: BP 133/58
--- NOTE | 2018-07-14 17:19 | FAST ---
SHIFT START DATE/TIME: 07/14/2018 07:00 (CDT) SHIFT END DATE/TIME: 07/14/2018 19:00 (CDT) NAME FRANCE BAUMANN DATE OF : 1945 DATE OF ADMISSION: 07/02/2018 14:34 (CDT) PHONE: AGE: 73 N# [id number] GENDER: Female ENCOUNTER PHYSICIAN: Dr. Luke Major M.D. ADMISSION DIAGNOSIS: - Orthopaedic Disorders 08 - Unilateral Hip Fracture (08.11) Left Femoral Neck Fracture. EATING: EATING - STEP 1: Does the patient require assistance when eating? No. EATING - SCORE: 7-IND GROOMING: Wash, rinse, and dry face Wash, rinse, and dry hands GROOMING - STEP 1: Does the patient require assistance when grooming? No. GROOMING - SCORE: 7-IND BATHING: Activity did not occur on this shift BATHING - SCORE: 0-UNK DRESSING - UPPER BODY: T-shirt/pullover shirt (four steps) ARTICLES SCORE Total number of steps: 4 DRESSING - UPPER BODY - STEP 1: Does the patient require help when dressing above the waist? Yes. DRESSING - UPPER BODY - STEP 2: Does the patient require the assistance of a helper? No. Patient only requires an assistive device, s uch as a button hook, velcro, or offbearer. OR s/he takes more than reasonable time as s/he dresses the upper body. OR there is a concern for safety when s/he dresses the upper body DRESSING - UPPER BODY - SCORE: 6-TINO DRESSING - LOWER BODY: Elastic waist pants (three steps) Underwear (three steps) ARTICLES SCORE Total number of steps: 6 DRESSING - LOWER BODY - STEP 1: Does the patient require help when dressing below the waist? Yes. DRESSING - LOWER BODY - STEP 2: Does the patient require the assistance of a helper? No. Patient requires an assistive device such as a offbearer. OR s/he takes more than reasonable time as s/he dresses the lower body, OR there is a con cern for safety when s/he dresses the lower body DRESSING - LOWER BODY - SCORE: 6-TINO TOILETING: TOILETING - STEP 1: Does the patient require assistance with toileting? Yes. TOILETING - STEP 2: Does the patient require the assistance of a helper? No. TOILETING - SCORE: 6-TINO BLADDER MANAGEMENT: BLADDER MANAGEMENT - STEP 1: Does the patient control the bladder completely and intentionally without equipment or devices or med ications, and is always continent? Yes. BLADDER MANAGEMENT - SCORE: 7-IND BLADDER MANAGEMENT - FREQUENCY OF ACCIDENTS: BLADDER MANAGEMENT(FA) - STEP 1: How many accidents has the patient had during the current shift? 0 BOWEL MANAGEMENT: BOWEL MANAGEMENT - STEP 1: Does the patient control bowels completely and intentionally without equipment devices or medications AND is always continent? Yes. BOWEL MANAGEMENT - SCORE: 7-IND BOWEL MANAGEMENT - FREQUENCY OF ACCIDENTS: BOWEL MANAGEMENT(FA) - STEP 1: How many accidents has the patient had during the current shift? 0 TRANSFERS: BED, CHAIR, WHEELCHAIR: TRANSFERS: BED, CHAIR, WHEELCHAIR - STEP 1: Does the patient require assistance with bed, chair, or wheelchair transfers? Yes. TRANSFERS: BED, CHAIR, WHEELCHAIR - STEP 2: Does the patient require the assistance of a helper? No. Patient only requires an assistive device fo r bed, chair, wheelchair transfers such as a sliding board, grab bar, or brace, OR s/he takes more th an reasonable time, OR there is a safety concern when s/he performs the transfers TRANSFERS: BED, CHAIR, WHEELCHAIR - SCORE: 6-TINO TRANSFERS: TOILET: TRANSFERS: TOILET - STEP 1: Does the patient require assistance with toilet transfers? Yes. TRANSFERS: TOILET - STEP 2: Does the patient require the assistance of a helper? No. Patient only requires an assistive device sahni ch as a grab bar or special seat, OR s/he takes more than reasonable time to perform toilet transfers , OR there is a safety concern when s/he performs toilet transfers. TRANSFERS: TOILET - SCORE: 6-TINO TRANSFERS: SHOWER: Activity did not occur on this shift TRANSFERS: SHOWER - SCORE: 0-UNK TRANSFERS: TUB: Activity did not occur on this shift TRANSFERS: TUB - SCORE: 0-UNK LOCOMOTION: WALK: Activity did not occur on this shift LOCOMOTION: WALK - SCORE: 0-UNK LOCOMOTION: WHEELCHAIR: Activity did not occur on this shift LOCOMOTION: WHEELCHAIR - SCORE: 0-UNK COMPREHENSION: COMPREHENSION - SCORE: 0-UNK EXPRESSION EXPRESSION - SCORE: 0-UNK SOCIAL INTERACTION: SOCIAL INTERACTION - SCORE: 0-UNK PROBLEM SOLVING: PROBLEM SOLVING - SCORE: 0-UNK MEMORY: MEMORY - SCORE: 0-UNK SIGNATURE PANEL: The following modified sections: Eating - Score, Grooming - Score, Bathing - Score, Dressing - Upper Body - Score, Dressing - Lower Body - Score, Toileting - Score, Bladder Management - Score, Bowel Man agement - Score, Transfers: Bed, Chair, Wheelchair - Score, Transfers: Toilet - Score, Transfers: Shonna wer - Score, Transfers: Tub - Score, Locomotion: Walk - Score, Locomotion: Wheelchair - Score, Compre hension - Score, Expression - Score, Social Interaction - Score, Problem Solving - Score, Memory - Sc ore were [electronically] signed by Wendy Villafuerte CNA on TueJul 14 2018 17:18:48 T-0500 (Centra l Daylight Time)
== END 2018-07-14 17:45 | disposition home health service (06) | DRG 560 ==
LOC: 5TH 14:34
PROVIDERS: ADMIT Psychiatry & Neurology Neurology with Special Qualifications in Child Neurology; ATTEND Psychiatry & Neurology Neurology with Special Qualifications in Child Neurology
DX: S72.002D Fracture of unspecified part of neck of left femur, subsequent encounter for closed fracture with routine healing (principal); B37.89 Other sites of candidiasis; I48.91 Unspecified atrial fibrillation; I10 Essential (primary) hypertension; I73.9 Peripheral vascular disease, unspecified
CPT/HCPCS: 36415; 80048; 81001; 82040; 83735; 84134; 85025; 87077; 87086; 87088; 87186; 93926; 93971; 97542

== ENCOUNTER 2018-11-15 15:39 | Emergency (ER) | payer OTHER ==
--- OUTSIDE RECORDS SUMMARY | 2018-11-15 15:42 | XMS REPORT | Clinical Summary ---
:1945 Author Organization [facility] Address [address] [place] [address] Care Team Providers Name Role Phone Rodolfo Mathis MD Primary Care Provider Allergies Active Allergy Reactions Severity Noted Date Comments Naproxen Sodium 10/07/2016 Chest pain Codeine 10/07/2016 Chest pain-feels like having a heart attack Ibuprofen Hives, Itching 10/07/2016 Numbness in head Etodolac 10/07/2016 Chest pain Medications Medication Sig Dispensed Refills Start Date End Date Status bisoprolol (ZEBETA) 5 MG Take 5 mg by 1 09/08/2016 Active tablet mouth daily. gabapentin (NEURONTIN) TAKE 2 TABLET BY 1 09/20/2016 Active 600 mg tablet MOUTH 2 TIMES A DAY FOR NERVE PAIN pantoprazole (PROTONIX) Take 40 mg by 0 09/04/2016 Active 40 MG EC tablet mouth daily. spironolactone Take 25 mg by 11 10/01/2016 Active (ALDACTONE) 25 MG tablet mouth once daily. aspirin (ECOTRIN) 81 MG Take 81 mg by 0 Active enteric coated tablet mouth daily. cholecalciferol, vitamin Take by mouth. 0 Active D3, (VITAMIN D3) 5,000 unit tablet CYANOCOBALAMIN, VITAMIN Take by mouth. 0 Active B-12, (B-12 DOTS ORAL) multivitamin with Take 1 tablet by 0 Active minerals tablet mouth daily. OMEGA-3 FATTY ACIDS/FISH Take by mouth. 0 Active OIL (FISH OIL EXTRA STRENGTH ORAL) POTASSIUM CHLORIDE ORAL Take by mouth. 0 Active OTC - 99mg takes one a day on her own. atorvastatin (LIPITOR) Take 10 mg by 0 Active 10 MG tablet mouth daily. PARoxetine (PAXIL) 20 MG Take 20 mg by 0 Active tablet mouth every morning. sotalol (BETAPACE) 80 MG Take 80 mg by 0 Active tablet mouth 2 (two) times a day. rivaroxaban (XARELTO) 20 Take 20 mg by 0 Active mg tablet mouth. Active Problems Problem Noted Date Hypokalemia 09/07/2018 Status post gastric bypass for obesity 09/07/2018 Carpal tunnel syndrome of right wrist 2017 Carpal tunnel syndrome on right 10/07/2016 Cervical spondylosis with myelopathy and radiculopathy 10/07/2016 Arthropathy of right shoulder 10/07/2016 Encounters Date Type Specialty Care Team Description 09/06/2018 Office Visit General Surgery Luis Felipe Noel Status post bariatric surgery (Primary Dx); MD Mayra BMI 24.0-24.9, adult; Status post gastric bypass for obesity; Hypokalemia 08/24/2018 Orders Only General Surgery Luis Felipe Noel MD 08/23/2018 Orders Only General Surgery Georgia Rogers MA Bariatric surgery status (Primary Dx) 08/23/2018 Documentation Weight Management Edna Chowdhury Bariatric Surgery Follow up Call 08/23/2018 Documentation Weight Management Edna Chowdhury Bariatric Surgery Follow Up Letter after 11/14/2017 Family History Medical History Relation Name Comments [...] Assigned at Date Recorded Not on file Job Start Date Occupation Industry Not on file Not on file Not on file Travel History Travel Start Travel End No recent travel history available. Last Filed Vital Signs Vital Sign Reading Time Taken Blood Pressure 128/59 09/06/2018 12:09 PM ENTRY LEVEL MANAGEMENT Pulse 72 09/06/2018 12:09 PM ENTRY LEVEL MANAGEMENT Temperature 36.4 C (97.5 F) 09/06/2018 12:09 PM ENTRY LEVEL MANAGEMENT Respiratory Rate 16 09/06/2018 12:09 PM ENTRY LEVEL MANAGEMENT Oxygen Saturation - - Inhaled Oxygen Concentration - - Weight 59.1 kg (130 lb 3.2 oz) 09/06/2018 12:09 PM ENTRY LEVEL MANAGEMENT Height 154.9 cm (5' 1") 09/06/2018 12:09 PM ENTRY LEVEL MANAGEMENT Body Mass Index 24.6 09/06/2018 12:09 PM ENTRY LEVEL MANAGEMENT Plan of Treatment Health Maintenance Due Date Last Done Comments BREAST CANCER SCREENING 1995 COLON CANCER SCREENING 1995 SHINGLES VACCINES (#1) 1995 65+ PNEUMOCOCCAL VACCINE (1 of 2 - PCV13) 2010 PNEUMOCOCCAL POLYSACCHARIDE VACCINE AGE 65 AND OVER 2010 INFLUENZA VACCINE 04/19/2018 Procedures Procedure Name Priority Date/Time Associated Comments Diagnosis COPPER LEVEL, SERUM Routine 08/24/2018 1:10 Results for this PM ENTRY LEVEL MANAGEMENT procedure are in the results section. VITAMIN B1 LEVEL, Routine 08/24/2018 1:10 Results for this WHOLE BLOOD PM ENTRY LEVEL MANAGEMENT procedure are in the results section. ZINC LEVEL, SERUM Routine 08/24/2018 1:10 Results for this PM ENTRY LEVEL MANAGEMENT procedure are in the results section. VITAMIN E LEVEL, Routine 08/24/2018 1:10 Results for this PLASMA OR SERUM PM ENTRY LEVEL MANAGEMENT procedure are in the results section. VITAMIN A LEVEL, Routine 08/24/2018 1:10 Results for this PLASMA OR SERUM PM ENTRY LEVEL MANAGEMENT procedure are in the results section. HEMOGLOBIN A1C Routine 08/24/2018 1:10 Results for this PM ENTRY LEVEL MANAGEMENT procedure are in the results section. VITAMIN D 25 HYDROXY Routine 08/24/2018 1:10 Results for this LEVEL PM ENTRY LEVEL MANAGEMENT procedure are in the results section. VITAMIN B12 LEVEL Routine 08/24/2018 1:10 Results for this PM ENTRY LEVEL MANAGEMENT procedure are in the results section. THYROID STIMULATING Routine 08/24/2018 1:10 Results for this HORMONE PM ENTRY LEVEL MANAGEMENT procedure are in the results section. T4, FREE Routine 08/24/2018 1:10 Results for this PM ENTRY LEVEL MANAGEMENT procedure are in the results section. T3 Routine 08/24/2018 1:10 Results for this PM ENTRY LEVEL MANAGEMENT procedure are in the results section. FOLATE LEVEL Routine 08/24/2018 1:10 Results for this PM ENTRY LEVEL MANAGEMENT procedure are in the results section. FERRITIN LEVEL Routine 08/24/2018 1:10 Results for this PM ENTRY LEVEL MANAGEMENT procedure are in the results section. CBC WITH PLATELET AND Routine 08/24/2018 1:10 Results for this DIFFERENTIAL PM ENTRY LEVEL MANAGEMENT procedure are in the results section. COMPREHENSIVE Routine 08/24/2018 1:10 Results for this METABOLIC PANEL PM ENTRY LEVEL MANAGEMENT procedure are in the results section. TOTAL IRON BINDING Routine 08/24/2018 1:10 Results for this CAPACITY PM ENTRY LEVEL MANAGEMENT procedure are in the results section. PHOSPHORUS LEVEL Routine 08/24/2018 1:10 Results for this PM ENTRY LEVEL MANAGEMENT procedure are in the results section. MAGNESIUM LEVEL Routine 08/24/2018 1:10 Results for this PM ENTRY LEVEL MANAGEMENT procedure are in the results section. LIPID PANEL Routine 08/24/2018 1:10 Results for this PM ENTRY LEVEL MANAGEMENT procedure are in the results section. PTH, INTACT AND Routine 08/24/2018 1:10 Results for this CALCIUM PM ENTRY LEVEL MANAGEMENT procedure are in the results section. after 11/14/2017 Results Total iron binding capacity (08/24/2018 1:10 PM ENTRY LEVEL MANAGEMENT) Iron level 85 45 - 160 mcg/dL [facility] [place] Iron binding capacity 344 250 - 450 mcg/dL (calc) [facility] [place] Iron saturation 25 11 - 50 % (calc) [facility] [place] Narrative Performed At FASTING:YES [employer] FASTING: YES Resulting Agency Comment Performing Organization Information: Site ID: [id number] Name: [facility] Address: [address] [place] [phone] Director: Alicia Mejia Performing Organization Address City/[facility] Phone Number [employer] [facility] [address] [place] [phone] Copper level, serum (08/24/2018 1:10 PM ENTRY LEVEL MANAGEMENT) Copper 133 70 - 175 mcg/dL [facility] Comment: CRYSTAL This test was developed and its analytical performance characteristics have been determined by [facility]. It has not been cleared or approved by the US Food and Drug Administration. This assay has been validated pursuant to the CLIA regulations and is used for clinical purposes. Narrative Performed At FASTING:YES [employer] FASTING: YES Resulting Agency Comment Performing Organization Information: Site ID: [id number] Name: [facility] [place] Address: [address] [place] [address] Director: Elder Nolan M.D., Ph.D Performing Organization Address [facility] [place] Phone Number [employer] [facility] [address] [place] [address] PTH, intact and calcium (08/24/2018 1:10 PM ENTRY LEVEL MANAGEMENT) PTH 179 (H) 14 - 64 pg/mL [facility] [place] Comment: Interpretive GuideIntact PTH Calcium ------- Normal ParathyroidNormal Normal HypoparathyroidismLow or Low NormalLow Hyperparathyroidism PrimaryNormal or High High SecondaryHigh Normal or Low Tertiary High High Non-Parathyroid HypercalcemiaLow or Low NormalHigh Calcium 9.1 8.6 - 10.4 mg/dL [facility] [place] Narrative Performed At FASTING:YES [facility] FASTING: YES Resulting Agency Comment Performing Organization Information: Site ID: [id number] Name: [facility] Address: [address] [place] [phone] Director: Alicia Mejia Performing Organization Address [facility] Phone Number [facility] [place] [address] [place] [phone] Vitamin B1 level, whole blood (08/24/2018 1:10 PM ENTRY LEVEL MANAGEMENT) Vitamin B1, whole 186 (H) 78 - 185 nmol/L [facility] blood Comment: SHAHID ROJAS Vitamin supplementation within 24 hours prior to blood draw may affect the accuracy of results. This test was developed and its analytical performance characteristics have been determined by [facility]. It has not been cleared or approved by FDA. This assay has been validated pursuant to the CLIA regulations and is used for clinical purposes. Narrative Performed At FASTING:YES [employer] FASTING: YES Resulting Agency Comment Performing Organization Information: Site ID: [id number] Name: [facility] [place] Address: [address] [place] [address] Director: Elder Nolan M.D., Ph.D Performing Organization Address [facility] Phone Number [facility] [address] [place] [address] [phone] Zinc level, serum (08/24/2018 1:10 PM ENTRY LEVEL MANAGEMENT) Zinc 120 60 - 130 mcg/dL [employer] Comment: CRYSTAL This test was developed and its analytical performance characteristics have been determined by [facility]. It has not been cleared or approved by the US Food and Drug Administration. This assay has been validated pursuant to the CLIA regulations and is used for clinical purposes. Narrative Performed At FASTING:YES [employer] FASTING: YES Resulting Agency Comment Performing Organization Information: Site ID: [id number] Name: [facility] [place] Address: [address] [place] [address] Director: Elder Nolan M.D., Ph.D Performing Organization Address [facility] Phone Number DEBBIE [facility] [address] [address] [phone] Vitamin A level, plasma or serum (08/24/2018 1:10 PM ENTRY LEVEL MANAGEMENT) Vitamin A (retinol) 33 (L) 38 - 98 mcg/dL [facility] Comment: SHAHID ROJAS Clin Chem Vol. 34.No.8. [id number]. 1998 Vitamin supplementation within 24 hours prior to blood draw may affect the accuracy of results. This test was developed and its analytical performance characteristics have been determined by [facility]. It has not been cleared or approved by the US Food and Drug Administration. This assay has been validated pursuant to the CLIA regulations and is used for clinical purposes. Narrative Performed At FASTING:YES [employer] FASTING: YES Resulting Agency Comment Performing Organization Information: Site ID: [id number] Name: [facility] ([facility] Address: [address] [place] [phone] Director: Elder Nolan M.D., Ph.D Performing Organization Address [facility] Phone Number DEBBIE [facility] [address] [address] Vitamin D 25 hydroxy level (08/24/2018 1:10 PM ENTRY LEVEL MANAGEMENT) Vitamin D, 25-hydroxy 38 30 - 100 ng/mL [facility] Comment: BARRAZA Vitamin D Status 25-OH Vitamin D: Deficiency:<20 ng/mL Insufficiency: 20 - 29 ng/mL Optimal: > or=30 ng/mL For 25-OH Vitamin D testing on patients on D2-supplementation and patients for whom quantitation of D2 and D3 fractions is required, the QuestAssureD(TM) 25-OH VIT D, (D2,D3), LC/MS/MS is recommended: order code 60202 (patients >2yrs). For more information on this test, go to: http://education.IntegralReach/faq/SGK854 (This link is being provided for informational/educational purposes only.) Narrative Performed At FASTING:YES [facility] FASTING: YES Resulting Agency Comment Performing Organization Information: Site ID: [id number] Name: [facility] Address: [address] [place] [phone] Director: Alicia Mejia Performing Organization Address City/State/Zipcode Phone Number [employer] [place] [address] [place] [address] [phone] CBC with platelet and differential (08/24/2018 1:10 PM ENTRY LEVEL MANAGEMENT) WBC 6.2 3.8 - 10.8 Thousand/uL [facility] [place] RBC 4.54 3.80 - 5.10 Million/uL [facility] [place] HGB 13.3 11.7 - 15.5 g/dL [facility] [place] HCT 38.3 35.0 - 45.0 % [facility] [place] MCV 84.4 80.0 - 100.0 fL [facility] [place] MCH 29.3 27.0 - 33.0 pg [facility] [place] MCHC 34.7 32.0 - 36.0 g/dL [facility] [place] RDW 13.3 11.0 - 15.0 % [facility] [place] Platelet count 261 140 - 400 Thousand/uL [facility] [place] MPV 12.0 7.5 - 12.5 fL [facility] [place] Neutrophils, absolute 3,739 1,500 - 7,800 cells/uL [facility] [place] Lymphocytes, absolute 1,798 850 - 3,900 cells/uL [facility] [place] Monocytes, absolute 453 200 - 950 cells/uL [facility] [place] Eosinophils, absolute 143 15 - 500 cells/uL [facility] [place] Basophils, absolute 68 0 - 200 cells/uL [facility] [place] Neutrophils 60.3 % [facility] [place] Lymphocytes 29.0 % [facility] [place] Monocytes 7.3 % [facility] [place] Eosinophils 2.3 % [facility] [place] Basophils + RC 1.1 % [facility] [place] Narrative Performed At FASTING:YES [facility] FASTING: YES Resulting Agency Comment Performing Organization Information: Site ID: [id number] Name: [facility] Address: [address] [place] [phone] Director: Alicia Mejia Performing Organization Address City/State/Zipcode Phone Number [employer] [place] [address] [place] [address] T3 (08/24/2018 1:10 PM ENTRY LEVEL MANAGEMENT) T3 86 76 - 181 ng/dL [facility] [place] Narrative Performed At FASTING:YES [facility] FASTING: YES Resulting Agency Comment Performing Organization Information: Site ID: [id number] Name: [facility] Address: [address] [place] [phone] Director: Alicia Mejia Performing Organization Address City/[facility] Phone Number [employer] [place] [address] [place] [address] Vitamin E level, plasma or serum (08/24/2018 1:10 PM ENTRY LEVEL MANAGEMENT) Alpha-tocopherol mg/L 9.5 5.7 - 19.9 mg/L [facility] Comment: KEY ROJAS Pediatric Term Infants (Cord Blood) 1.8 - 5.8 mg/L Levels of alpha-tocopherol < 5 mg/L are consistent with Vitamin E deficiency in adults Gamma-tocopherol mg/L <1.0 <4.4 mg/L [facility] Comment: [facility] Vitamin supplementation within 24 hours prior to blood draw may affect the accuracy of results. This test was developed and its analytical performance characteristics have been determined by [facility]. It has not been cleared or approved by the US Food and Drug Administration. This assay has been validated persuant to the CLIA regulations and is used for clinical purposes. Narrative Performed At FASTING:YES [facility] FASTING: YES Resulting Agency Comment Performing Organization Information: Site ID: [id number] Name: [facility] [place] Address: [address] [place] [phone] Director: Elder Nolan M.D., Ph.D Performing Organization Address [facility] Phone Number [employer] [facility] [address] [address] Thyroid stimulating hormone (08/24/2018 1:10 PM ENTRY LEVEL MANAGEMENT) TSH 1.69 0.40 - 4.50 mIU/L [facility] [place] Narrative Performed At FASTING:YES [facility] FASTING: YES Resulting Agency Comment Performing Organization Information: Site ID: [id number] Name: [facility] Address: [address] [place] [phone] Director: Alicia Mejia Performing Organization Address City/[facility] Phone Number [employer] [place] [address] [place] [address] T4, free (08/24/2018 1:10 PM ENTRY LEVEL MANAGEMENT) T4, free 1.0 0.8 - 1.8 ng/dL [facility] [place] Narrative Performed At FASTING:YES [facility] FASTING: YES Resulting Agency Comment Performing Organization Information: Site ID: [id number] Name: [facility] Address: [address] [place] [address] Director: Alicia Mejia Performing Organization Address [facility] Number [employer] [place] [address] Phosphorus level (08/24/2018 1:10 PM ENTRY LEVEL MANAGEMENT) Phosphorus 3.6 2.1 - 4.3 mg/dL [facility] [place] Narrative Performed At FASTING:YES [facility] FASTING: YES Resulting Agency Comment Performing Organization Information: Site ID: [id number] Name: [facility] Address: [address] [place] [address] Director: Alicia Mejia Performing Organization Address [facility] [place] [employer] [place] [address] Magnesium level (08/24/2018 1:10 PM ENTRY LEVEL MANAGEMENT) Magnesium 1.6 1.5 - 2.5 mg/dL [facility] [place] Narrative Performed At FASTING:YES [facility] FASTING: YES Resulting Agency Comment Performing Organization Information: Site ID: [id number] Name: [facility] Address: [address] [place] [phone] Director: Alicia Mejia Performing Organization Address [facility] [place] [employer] [place] [address] Hemoglobin A1c (08/24/2018 1:10 PM ENTRY LEVEL MANAGEMENT) Hemoglobin A1C 5.4 <5.7 % of total Hgb [facility] [place] Comment: For the purpose of screening for the presence of diabetes: <5.7% Consistent with the absence of diabetes 5.7-6.4%Consistent with increased risk for diabetes (prediabetes) > or=6.5%Consistent with diabetes This assay result is consistent with a decreased risk of diabetes. Currently, no consensus exists regarding use of hemoglobin A1c for diagnosis of diabetes in children. According to [place] Diabetes Association (ADA) guidelines, hemoglobin A1c <7.0% represents optimal control in non- diabetic patients. Different metrics may apply to specific patient populations. Standards of Medical Care in Diabetes(ADA). Narrative Performed At FASTING:YES [facility] FASTING: YES Resulting Agency Comment Performing Organization Information: Site ID: [id number] Name: [facility] Address: [address] [place] [phone] Director: Alicia Mejia Performing Organization Address [facility] [place] [facility] Phone Number [employer] [place] [address] Folate level (08/24/2018 1:10 PM ENTRY LEVEL MANAGEMENT) Folate >24.0 ng/mL [facility] [place] Comment: Reference Range Low: <3.4 Borderline:3.4- 5.4 Normal:> 5.4 Narrative Performed At FASTING:YES [facility] FASTING: YES Resulting Agency Comment Performing Organization Information: Site ID: [facility] Name: [facility] Address: [address] [place] [phone] Director: Alicia Mejia Performing Organization Address [facility] Number [employer] [place] [address] Ferritin level (08/24/2018 1:10 PM ENTRY LEVEL MANAGEMENT) Ferritin level 133 20 - 288 ng/mL [facility] [place] Narrative Performed At FASTING:YES [facility] FASTING: YES Resulting Agency Comment Performing Organization Information: Site ID: [facility] Name: [facility] Address: [address] [place] [phone] Director: Alicia Mejia Performing Organization Address [facility] [place] [facility] Phone Number [employer] [place] [address] Vitamin B12 level (08/24/2018 1:10 PM ENTRY LEVEL MANAGEMENT) Vitamin B12 1,701 (H) 200 - 1,100 pg/mL [facility] [place] Narrative Performed At FASTING:YES [facility] FASTING: YES Resulting Agency Comment Performing Organization Information: Site ID: [facility] Name: [facility] Address: [address] [place] [phone] Director: Alicia Mejia Performing Organization Address City/State/Zipcode Phone Number [employer] [place] [address] [place] [phone] Lipid panel (08/24/2018 1:10 PM ENTRY LEVEL MANAGEMENT) Cholesterol, total 106 <200 mg/dL [facility] [place] HDL cholesterol 67 >50 mg/dL [facility] [place] Triglycerides 80 <150 mg/dL [facility] [place] LDL cholesterol 23 mg/dL (calc) [facility] calculated Comment: [place] Reference range: <100 Desirable range <100 mg/dL for primary prevention; <70 mg/dL for patients with CHD or diabetic patients with > or=2 CHD risk factors. LDL-C is now calculated using the Robyn calculation, which is a validated novel method providing better accuracy than the Friedewald equation in the estimation of LDL-C. Hugo SS et al. ROBBY. 2013;310(19): 2888-4649 (http://education.Treater/faq/BFU209) Cholesterol/HDL ratio 1.6 <5.0 (calc) [facility] [employer] [facility] Non-HDL cholesterol 39 <130 mg/dL [facility] Comment: (calc) [place] For patients with diabetes plus 1 major ASCVD risk factor, treating to a non-HDL-C goal of <100 mg/dL (LDL-C of <70 mg/dL) is considered a therapeutic option. Narrative Performed At FASTING:YES [facility] FASTING: YES Resulting Agency Comment Performing Organization Information: Site ID: [id number] Name: [facility] Address: [address] [place] [phone] Director: Alicia Mejia Performing Organization Address City/State/Zipcode Phone Number [employer] [place] [address] Comprehensive metabolic panel (08/24/2018 1:10 PM ENTRY LEVEL MANAGEMENT) Glucose 99 65 - 99 mg/dL [facility] Comment: [place] Fasting reference interval BUN, whole blood 13 7 - 25 mg/dL [facility] [place] Creatinine 0.52 (L) 0.60 - 0.93 [facility] Comment: mg/dL [place] For patients >49 years of age, the reference limit for Creatinine is approximately 13% higher for people identified as -Beninese. EGFR Non-Afr. [place] 95 > OR=60 [facility] mL/min/1.73m2 [place] EGFR 110 > OR=60 [place] mL/min/1.73m2 [place] BUN/creatinine ratio 25 (H) 6 - 22 (calc) [facility] [place] Sodium 143 135 - 146 mmol/L [facility] [place] Potassium 3.2 (L) 3.5 - 5.3 mmol/L [facility] [place] Chloride 101 98 - 110 mmol/L [facility] [place] CO2 34 (H) 20 - 32 mmol/L [facility] [place] Calcium 9.1 8.6 - 10.4 mg/dL [facility] [place] Protein 6.4 6.1 - 8.1 g/dL [facility] [place] Albumin, S 3.9 3.6 - 5.1 g/dL [facility] [place] Globulin, total 2.5 1.9 - 3.7 g/dL [facility] (calc) [place] Albumin/globulin ratio 1.6 1.0 - 2.5 (calc) [facility] [place] Total bilirubin 0.6 0.2 - 1.2 mg/dL [facility] [place] Alkaline phosphatase 112 33 - 130 U/L [facility] [place] AST 35 10 - 35 U/L [facility] [place] ALT 26 6 - [address] [employer] [place] Narrative Performed At FASTING:YES [facility] FASTING: YES Resulting Agency Comment Performing Organization Information: Site ID: [id number] Name: [facility] [employer] [facility] Address: [address] [place] [address] Director: Alicia Mejia Performing Organization Address City/State[facility] Phone Number [employer] [place] [address] [phone] after 11/14/2017 Insurance Payer Benefit Plan / Group Subscriber ID Type Phone Address CORNELIA LOCKE PPO OPEN CHOICE xxxxxxxxx PPO MEDICARE MEDICARE PART A AND B xxxxxxxxxx Medicare [place], [place] Advance Directives Patient has advance care planning documents on file. For more information, please contact:[id number] [place] [address]
--- OUTSIDE RECORDS SUMMARY | 2018-11-15 15:42 | XMS REPORT ---
[...] End Status Dosage System Date Date Gabapentin [facility] 98208411608 300 MG Oral Active TAKE 1 CAPSULE BY MOUTH THREE TIMES A DAY Bisoprolol ND 50600949982 5 MG Oral Active TAKE 1 Fumarate TABLET BY MOUTH EVERY DAY Clindamycin HCl [facility] 19139512955 300 MG Oral Active TAKE ONE CAPSULE BY MOUTH 3 TIMES A DAY UNTIL ALL TAKEN Ciprofloxacin HCl [facility] 58462451496 0.3 % Active INSTILL 1 Ophthalmic DROP INTO LEFT EYE 4 TIMES A DAY FOR 1 WEEK Aspirin ND 69921496366 81 MG Orally April 06, Active 1 tablet Once a day 2017 Pantoprazole ND 01175827731 40 MG Oral Active TAKE 1 Sodium TABLET BY MOUTH EVERY DAY 1 HOUR BEFORE FOOD Tramadol HCl [facility] 87545063417 50 MG Oral Active (Schedule IV Drug) TAKE 1 TABLET BY MOUTH EVERY 6 HOURS NEEDED FOR PAIN Triamcinolone ND 42080454984 0.1 % External Active APPLY TO Acetonide AFFECTED AREA TWICE A DAY Duloxetine HCl [facility] 82614393591 60 MG Oral Active TAKE ONE CAPSULE BY MOUTH EVERY DAY Paroxetine HCl [facility] 82796148928 20 MG Oral Active TAKE 1 TABLET BY MOUTH EVERYDAY AT BEDTIME Spironolactone NDC 07293050008 25 MG Oral Active TAKE 1 TABLET BY MOUTH EVERY DAY Results No Known Results Summary Purpose eClinicalWorks Submission
--- OUTSIDE RECORDS SUMMARY | 2018-11-15 15:43 | XMS REPORT ---
:1945 Author Organization eClinicalWorks Care Team Providers Name Role Phone Zach Galvez Provider Role Unavailable Allergies, Adverse Reactions, Alerts Substance Reaction Event Type Ibuprofen HIVES Drug Allergy Demerol Info Not Available Drug Allergy Amoxicillin Info Not Available Drug Allergy Problems Problem Type Condition Code Onset Dates Condition Status Assessment Pain in joint of right wrist M25.531 Active Assessment Pain, joint, hip, left M25.552 Active Assessment Left sciatic nerve pain M54.32 Active Assessment Encounter for other orthopedic Z47.89 Active aftercare Assessment Pain in joint of left knee M25.562 Active Assessment Closed displaced basicervical S72.042D Active fracture of left femur with routine healing Problem Pain, joint, hip, left M25.552 Active Problem Encounter for other orthopedic Z47.89 Active aftercare Problem Left sciatic nerve pain M54.32 Active Problem Trigger finger of both hands M65.30 Active Problem Pain in right shoulder M25.511 Active Problem Closed displaced basicervical S72.042D Active fracture of left femur with routine healing Problem Other closed displaced fracture of S42.291D Active proximal end of right humerus with routine healing, subsequent encounter Medications Medication Code Code Instructions Start End Status Dosage System Date Date Gabapentin [facility] 61145118563 300 MG Oral Active TAKE 1 CAPSULE BY MOUTH THREE TIMES A DAY Atorvastatin [facility] 38533498387 10 MG Oral Active TAKE 1 Calcium TABLET BY MOUTH EVERY DAY Sotalol HCl [facility] 74304799882 80 MG Oral Active TAKE 1 TABLET BY MOUTH TWICE A DAY Paroxetine HCl [facility] 83470234045 20 MG Oral Active TAKE 1 TABLET BY MOUTH EVERYDAY AT BEDTIME Spironolactone [facility] 69588027035 25 MG Oral Active TAKE 1 TABLET BY MOUTH EVERY DAY Aspirin [facility] 32387535208 81 MG Orally April 06, Active 1 tablet Once a day 2017 Bisoprolol [facility] 66089445281 5 MG Oral Active TAKE 1 Fumarate TABLET BY MOUTH EVERY DAY Xarelto [facility] 45611368878 20 MG Oral Active TAKE 1 TABLET BY MOUTH EVERY DAY Pantoprazole [facility] 25990030823 40 MG Oral Active TAKE 1 Sodium TABLET BY MOUTH EVERY DAY 1 HOUR BEFORE FOOD Results No Known Results Summary Purpose eClinicalWorks Submission
--- OUTSIDE RECORDS SUMMARY | 2018-11-15 15:43 | XMS REPORT ---
[...] End Status Dosage System Date Date Pantoprazole [facility] 05566211183 40 MG Oral Active TAKE 1 Sodium TABLET BY MOUTH EVERY DAY 1 HOUR BEFORE FOOD Aspirin ND 88743841061 81 MG Orally April 06, Active 1 tablet Once a day 2017 Spironolactone [facility] 62928329137 25 MG Oral Active TAKE 1 TABLET BY MOUTH EVERY DAY Gabapentin [facility] 17307143986 300 MG Oral Active TAKE 1 CAPSULE BY MOUTH THREE TIMES A DAY Bisoprolol [facility] 82787618821 5 MG Oral Active TAKE 1 Fumarate TABLET BY MOUTH EVERY DAY Paroxetine HCl [facility] 81421701865 20 MG Oral Active TAKE 1 TABLET BY MOUTH EVERYDAY AT BEDTIME Results No Known Results Summary Purpose eClinicalWorks Submission
--- OUTSIDE RECORDS SUMMARY | 2018-11-15 15:43 | XMS REPORT ---
:1945 Author Organization eClinicalWorks Care Team Providers Name Role Phone Zach Galvez Provider Role Unavailable Allergies, Adverse Reactions, Alerts Substance Reaction Event Type Ibuprofen HIVES Drug Allergy Demerol Info Not Available Drug Allergy Amoxicillin Info Not Available Drug Allergy Problems Problem Type Condition Code Onset Dates Condition Status Assessment Encounter for other orthopedic Z47.89 Active aftercare Assessment Pain, joint, hip, left M25.552 Active Assessment Closed displaced basicervical S72.042D Active fracture of left femur with routine healing Problem Pain, joint, hip, left M25.552 Active Problem Closed displaced basicervical S72.042D Active fracture of left femur with routine healing Problem Encounter for other orthopedic Z47.89 Active aftercare Problem Pain in right shoulder M25.511 Active Problem Other closed displaced fracture of S42.291D Active proximal end of right humerus with routine healing, subsequent encounter Problem Trigger finger of both hands M65.30 Active Medications Medication Code Code Instructions Start End Status Dosage System Date Date Pantoprazole [facility] 77945615989 40 MG Oral Active TAKE 1 Sodium TABLET BY MOUTH EVERY DAY 1 HOUR BEFORE FOOD Xarelto [facility] 76287932428 20 MG Oral Active TAKE 1 TABLET BY MOUTH EVERY DAY Aspirin ND 63748453925 81 MG Orally April 06, Active 1 tablet Once a day 2017 Spironolactone [facility] 66208178886 25 MG Oral Active TAKE 1 TABLET BY MOUTH EVERY DAY Paroxetine HCl [facility] 40151391977 20 MG Oral Active TAKE 1 TABLET BY MOUTH EVERYDAY AT BEDTIME Sotalol HCl [facility] 95133229259 80 MG Oral Active TAKE 1 TABLET BY MOUTH TWICE A DAY Atorvastatin [facility] 38982885194 10 MG Oral Active TAKE 1 Calcium TABLET BY MOUTH EVERY DAY Bisoprolol [facility] 52118463781 5 MG Oral Active TAKE 1 Fumarate TABLET BY MOUTH EVERY DAY Gabapentin [facility] 85192730607 300 MG Oral Active TAKE 1 CAPSULE BY MOUTH THREE TIMES A DAY Results No Known Results Summary Purpose eClinicalWorks Submission
[2018-11-15] MEDS ORDERED: TRAMADOL HCL 50 MG TAB ONE (16:53)
--- NOTE | 2018-11-15 17:58 | ER ---
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 Transition of care: patient was not received from another setting of care. Onset of symptoms was November 15, 2018. Risk Assessment: Do you want to hurt yourself or someone else? Patient reports no desire to harm self or others. Care prior to arrival: None. 15:45 Method Of Arrival: Ambulatory hb 15:45 Acuity: JENNIFER 4 hb 16:20 Initial Sepsis Screen: Does the patient meet any 2 criteria? No. Patient's initial ca1 sepsis screen is negative. Does the patient have a suspected source of infection? No. Patient's initial sepsis screen is negative. Historical: - Allergies: 15:47 Amoxicillin; hb 15:47 annaprox; hb 15:47 Codeine; hb 15:47 Demerol; hb 15:47 Etodolac; hb 15:47 Ibuprofen; hb - Home Meds: 15:47 bisoprolol fumarate 5 mg Oral tab 1 tab once daily [Active]; aspirin 81 mg Oral chew 1 hb tab once daily [Active]; calcium citrate 600 mg Oral gran [Active]; d3 [Active]; gabapentin 300 mg Oral cap 1 cap 3 times per day [Active]; pantoprazole 40 mg Oral TbEC 1 tab once daily [Active]; paroxetine HCl 20 mg Oral tab 1 tab once daily [Active]; spironolactone 25 mg Oral tab 1 tab once daily [Active]; Vitamin C 1,000 mg Oral tab twice a day [Active]; Fish Oil 1,000 mg Oral cap [Active]; - PMHx: 15:47 Hypertension; hb - PSHx: 15:47 Gastric Bypass; Knee surgery; Cholecystectomy; Appendectomy; Hysterectomy; hb Tonsillectomy; - Immunization history:: Adult Immunizations up to date. - Social history:: Smoking status: Patient/guardian denies using tobacco. - Ebola Screening: : No symptoms or risks identified at this time. Screenin:47 Abuse screen: Denies threats or abuse. Denies injuries from another. Nutritional hb screening: No deficits noted. Tuberculosis screening: No symptoms or risk factors identified. Fall Risk None identified. Assessment: 16:00 General: Appears in no apparent distress. Behavior is calm, cooperative, appropriate ca1 for age. Pain: Complains of pain in right leg Pain currently is 7 out of 10 on a pain scale. Neuro: Level of Consciousness is awake, alert, obeys commands, Oriented to person, place, time, situation. Cardiovascular: Heart tones S1 S2 present Capillary refill < 3 seconds. Respiratory: Airway is patent Respiratory effort is even, unlabored, Respiratory pattern is regular, symmetrical, Breath sounds are clear bilaterally. GI: Abdomen is flat, non-distended, Bowel sounds present X 4 quads. : No signs and/or symptoms were reported regarding the genitourinary system. EENT: No signs and/or symptoms were reported regarding the EENT system. Derm: Skin is fragile, is thin, Skin is pink, warm \T\ dry. Bruising that is dark purple, on right gutierrez. Musculoskeletal: Circulation, motion, and sensation intact. Capillary refill < 3 seconds. 16:46 Reassessment: Patient appears in no apparent distress at this time. Patient and/or ca1 family updated on plan of care and expected duration. Pain level reassessed. Patient is alert, oriented x 3, equal unlabored respirations, skin warm/dry/pink. 17:47 Reassessment: Patient appears in no apparent distress at this time. Patient and/or ca1 family updated on plan of care and expected duration. Pain level reassessed. Patient is alert, oriented x 3, equal unlabored respirations, skin warm/dry/pink. Vital Signs: 15:48 BP 138 / 80; Resp 16; Temp 98.2; Pulse Ox 100% on R/A; Pain 8/10; hb 16:46 BP 153 / 83; Pulse 63; Resp 18; Pulse Ox 99% on R/A; ca1 17:47 BP 129 / 59; Pulse 61; Resp 18; Pulse Ox 99% on R/A; ca1 ED Course: 15:41 Patient arrived in ED. as 15:46 Triage completed. hb 15:47 Arm band placed on. hb 15:52 Angela Garcia, RN is Primary Nurse. ca1 16:00 Patient has correct armband on for positive identification. Bed in low position. Call ca1 light in reach. Side rails up X 1. Pulse ox on. NIBP on. Warm blanket given. 16:11 Elisabet Mo FNP-C is PHCP. snw 16:11 Eric Holloway MD is Attending Physician. snw 16:11 PHCP role handed off by Elisabet Mo FNP-C [facility] 16:11 Maximus Morin PA is PHCP. jr8 17:52 XRAY Knee RIGHT 3 view In Process Unspecified. EDMS 17:52 Tib Fib Right XRAY In Process Unspecified. EDMS 17:56 Bobo Werner MD is Referral Physician. jr8 18:06 No provider procedures requiring assistance completed. Patient did not have IV access ca1 during this emergency room visit. Administered Medications: No medications were administered Outcome: 17:57 Discharge ordered by . jr8 18:06 Discharged to home via wheelchair, with family. ca1 18:06 Condition: stable 18:06 Discharge instructions given to patient, Instructed on discharge instructions, follow up and referral plans. medication usage, Demonstrated understanding of instructions, follow-up care, medications, Prescriptions given X 1. 18:06 Patient left the ED. 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 hb
--- NOTE | 2018-11-15 17:58 | EDPHYS ---
Physician Documentation [facility] Name: Sharla Tesfaye Age: 73 yrs Sex: Female : 1945 Arrival Date: 11/15/2018 Time: 15:41 Bed 26 Private MD: ED Physician Eric Holloway HPI: 11/15 17:03 This 73 yrs old Female presents to ER via Ambulatory with complaints of Leg jr8 Swelling. 17:03 The patient presents with a contusion, pain, spasm, tenderness. The complaints affect jr8 the right gutierrez. Context: The problem was sustained at home, resulted from the patient falling. Onset: The symptoms/episode began/occurred acutely, today. Modifying factors: The symptoms are alleviated by nothing. the symptoms are aggravated by movement. Associated signs and symptoms: The patient has no apparent associated signs or symptoms. Severity of symptoms: At their worst the symptoms were mild, in the emergency department the symptoms are unchanged. It is unknown whether or not the patient has had similar symptoms in the past. The patient has not recently seen a physician. Patient stated that she was slipping and felt that she was going to loose balance so sat down on her steps outside. Stated that she rolled her right gutierrez against the steps. It immediately started to swell. Pain and tenderness since then with swelling and bruising. Denies direct blow to leg. Currently on Xarelto . Historical: - Allergies: 15:47 Amoxicillin; hb 15:47 annaprox; hb 15:47 Codeine; hb 15:47 Demerol; hb 15:47 Etodolac; hb 15:47 Ibuprofen; hb - Home Meds: 15:47 bisoprolol fumarate 5 mg Oral tab 1 tab once daily [Active]; aspirin 81 mg Oral chew 1 hb tab once daily [Active]; calcium citrate 600 mg Oral gran [Active]; d3 [Active]; gabapentin 300 mg Oral cap 1 cap 3 times per day [Active]; pantoprazole 40 mg Oral TbEC 1 tab once daily [Active]; paroxetine HCl 20 mg Oral tab 1 tab once daily [Active]; spironolactone 25 mg Oral tab 1 tab once daily [Active]; Vitamin C 1,000 mg Oral tab twice a day [Active]; Fish Oil 1,000 mg Oral cap [Active]; - PMHx: 15:47 Hypertension; hb - PSHx: 15:47 Gastric Bypass; Knee surgery; Cholecystectomy; Appendectomy; Hysterectomy; hb Tonsillectomy; - Immunization history:: Adult Immunizations up to date. - Social history:: Smoking status: Patient/guardian denies using tobacco. - Ebola Screening: : No symptoms or risks identified at this time. ROS: 17:03 Eyes: Negative for injury, pain, redness, and discharge, ENT: Negative for injury, jr8 pain, and discharge, Neck: Negative for injury, pain, and swelling, Cardiovascular: Negative for chest pain, palpitations, and edema, Respiratory: Negative for shortness of breath, cough, wheezing, and pleuritic chest pain, Abdomen/GI: Negative for abdominal pain, nausea, vomiting, diarrhea, and constipation, Back: Negative for injury and pain, Skin: Negative for injury, rash, and discoloration, Neuro: Negative for headache, weakness, numbness, tingling, and seizure. 17:03 MS/extremity: Positive for ecchymosis, pain, swelling, tenderness, of the right gutierrez. Exam: 17:03 Eyes: Pupils equal round and reactive to light, extra-ocular motions intact. Lids and jr8 lashes normal. Conjunctiva and sclera are non-icteric and not injected. Cornea within normal limits. Periorbital areas with no swelling, redness, or edema. ENT: Nares patent. No nasal discharge, no septal abnormalities noted. Tympanic membranes are normal and external auditory canals are clear. Oropharynx with no redness, swelling, or masses, exudates, or evidence of obstruction, uvula midline. Mucous membranes moist. Neck: Trachea midline, no thyromegaly or masses palpated, and no cervical lymphadenopathy. Supple, full range of motion without nuchal rigidity, or vertebral point tenderness. No Meningismus. Chest/axilla: Normal chest wall appearance and motion. Nontender with no deformity. No lesions are appreciated. Cardiovascular: Regular rate and rhythm with a normal S1 and S2. No gallops, murmurs, or rubs. Normal PMI, no JVD. No pulse deficits. Respiratory: Lungs have equal breath sounds bilaterally, clear to auscultation and percussion. No rales, rhonchi or wheezes noted. No increased work of breathing, no retractions or nasal flaring. Abdomen/GI: Soft, non-tender, with normal bowel sounds. No distension or tympany. No guarding or rebound. No evidence of tenderness throughout. Back: No spinal tenderness. No costovertebral tenderness. Full range of motion. Skin: Warm, dry with normal turgor. Normal color with no rashes, no lesions, and no evidence of cellulitis. Neuro: Awake and alert, GCS 15, oriented to person, place, time, and situation. Cranial nerves II-XII grossly intact. Motor strength 5/5 in all extremities. Sensory grossly intact. Cerebellar exam normal. Normal gait. 17:03 Musculoskeletal/extremity: Extremities: grossly normal except: noted in the right gutierrez: Swelling and hematoma noted to anterior right gutierrez. Tenderness to tibial spine present. No circumfrential swelling or tightness to calf. No numbness, tingling, or pain with extension or flexion of foot , Circulation is intact in all extremities. Sensation intact. Compartment Syndrome exam of affected extremity: is normal. no pain, no numbness, no tingling, no sensation deficit, no palor, no weak pulses. Vital Signs: 15:48 BP 138 / 80; Resp 16; Temp 98.2; Pulse Ox 100% on R/A; Pain 8/10; hb 16:46 BP 153 / 83; Pulse 63; Resp 18; Pulse Ox 99% on R/A; ca1 17:47 BP 129 / 59; Pulse 61; Resp 18; Pulse Ox 99% on R/A; ca1 MDM: 16:11 Patient medically screened. jr8 17:56 Data reviewed: vital signs, nurses notes, radiologic studies, plain films, and as a jr8 result, I will discharge patient. Data interpreted: Pulse oximetry: on room air is 99 %. Interpretation: normal. Counseling: I had a detailed discussion with the patient and/or guardian regarding: the historical points, exam findings, and any diagnostic results supporting the discharge/admit diagnosis, radiology results, the need for outpatient follow up, a orthopedic surgeon, to return to the emergency department if symptoms worsen or persist or if there are any questions or concerns that arise at home. 11/15 16:11 Order name: XRAY Knee RIGHT 3 view; Complete Time: 01:08 jr8 11/15 16:20 Order name: Tib Fib Right XRAY; Complete Time: 18:05 rv Administered Medications: No medications were administered Disposition: 11/16 06:33 Co-signature as Attending Physician, Eric Holloway MD I agree with the assessment and kdr plan of care. Disposition: 11/15/18 17:57 Discharged to Home. Impression: Contusion of right lower leg. - Condition is Stable. - Discharge Instructions: Contusion. - Prescriptions for Tramadol 50 mg Oral Tablet - take 1 tablet by ORAL route every 8 hours as needed; 12 tablet. - Medication Reconciliation Form, Thank You Letter, Antibiotic Education, Prescription Opioid Use form. - Follow up: Bobo Werner MD; When: 5 - 6 days; Reason: Recheck today's complaints, Continuance of care, Re-evaluation by your physician. - Problem is new. - Symptoms have improved. Signatures: Dispatcher [employer] EDCO Eric Holloway MD MD [facility] Maximus Morin PA PA jr8 Manuela Pineda, RN RN hb Angela Garcia RN RN ca1 Corrections: (The following items were deleted from the chart) 11/15 16:19 16:11 Knee Right 3 View+RAD.RAD.BRZ ordered. [facility] EDCO 16:22 16:14 Knee Right 3 View+RAD.RAD.BRZ ordered. [facility] 18:06 17:57 11/15/2018 17:57 Discharged to Home. Impression: Contusion of right lower leg. ca1 Condition is Stable. Forms are Medication Reconciliation Form, Thank You Letter, Antibiotic Education, Prescription Opioid Use. Follow up: Bobo Werner; When: 5 - 6 days; Reason: Recheck today's complaints, Continuance of care, Re-evaluation by your physician. Problem is new. Symptoms have improved. jr8
--- NOTE | 2018-11-15 18:04 | RAD REPORT ---
EXAM DESCRIPTION: RAD - Tib Fib Right - 11/15/2018 5:58 pm CLINICAL HISTORY: Right leg pain . FINDINGS: No fracture is seen. The bones are osteoporotic. Remainder of exam unremarkable
--- NOTE | 2018-11-15 18:05 | RAD REPORT ---
EXAM DESCRIPTION: RAD - Knee Right 3 View - 11/15/2018 5:58 pm CLINICAL HISTORY: Right knee pain FINDINGS: No fracture or dislocation is seen. Right knee arthroplasty. No evidence of loosening of the prosthesis. Osteoporosis
[2018-11-15 18:30] VITALS: O2SAT 99
[2018-11-15 18:31] VITALS: TEMP 98.2
[2018-11-15 18:32] VITALS: BP 129/59
== END 2018-11-15 18:06 | disposition home or self-care (01) ==
LOC: ER 15:39
DX: S80.11XA Contusion of right lower leg, initial encounter (principal); W22.8XXA Striking against or struck by other objects, initial encounter; I10 Essential (primary) hypertension; Z79.82 Long term (current) use of aspirin; Z88.6 Allergy status to analgesic agent; Z88.5 Allergy status to narcotic agent; Z88.0 Allergy status to penicillin
CPT/HCPCS: 99283

== ENCOUNTER 2019-06-03 16:31 | Emergency (ER) | payer OTHER ==
--- OUTSIDE RECORDS SUMMARY | 2019-06-03 16:35 | XMS REPORT ---
[...] End Status Dosage System Date Date Pantoprazole [facility] 72596041693 40 MG Oral Active TAKE 1 Sodium TABLET BY MOUTH EVERY DAY 1 HOUR BEFORE FOOD Aspirin ND 19587151050 81 MG Orally April 06, Active 1 tablet Once a day 2017 Spironolactone [facility] 58077526367 25 MG Oral Active TAKE 1 TABLET BY MOUTH EVERY DAY Gabapentin [facility] 30025596577 300 MG Oral Active TAKE 1 CAPSULE BY MOUTH THREE TIMES A DAY Bisoprolol [facility] 67956337681 5 MG Oral Active TAKE 1 Fumarate TABLET BY MOUTH EVERY DAY Paroxetine HCl [facility] 81338640845 20 MG Oral Active TAKE 1 TABLET BY MOUTH EVERYDAY AT BEDTIME Results No Known Results Summary Purpose eClinicalWorks Submission
--- OUTSIDE RECORDS SUMMARY | 2019-06-03 16:35 | XMS REPORT ---
[...] End Status Dosage System Date Date Gabapentin [facility] 27732378417 300 MG Oral Active TAKE 1 CAPSULE BY MOUTH THREE TIMES A DAY Atorvastatin [facility] 00522404159 10 MG Oral Active TAKE 1 Calcium TABLET BY MOUTH EVERY DAY Sotalol HCl [facility] 85548359277 80 MG Oral Active TAKE 1 TABLET BY MOUTH TWICE A DAY Paroxetine HCl [facility] 12405163826 20 MG Oral Active TAKE 1 TABLET BY MOUTH EVERYDAY AT BEDTIME Spironolactone [facility] 63925124569 25 MG Oral Active TAKE 1 TABLET BY MOUTH EVERY DAY Aspirin [facility] 17905819178 81 MG Orally April 06, Active 1 tablet Once a day 2017 Bisoprolol [facility] 32660980739 5 MG Oral Active TAKE 1 Fumarate TABLET BY MOUTH EVERY DAY Xarelto [facility] 13268990757 20 MG Oral Active TAKE 1 TABLET BY MOUTH EVERY DAY Pantoprazole [facility] 80274537373 40 MG Oral Active TAKE 1 Sodium TABLET BY MOUTH EVERY DAY 1 HOUR BEFORE FOOD Results No Known Results Summary Purpose eClinicalWorks Submission
--- OUTSIDE RECORDS SUMMARY | 2019-06-03 16:35 | XMS REPORT ---
[...] End Status Dosage System Date Date Gabapentin [facility] [id number] 300 MG Oral Active TAKE 1 CAPSULE BY MOUTH THREE TIMES A DAY Bisoprolol ND 73898029689 5 MG Oral Active TAKE 1 Fumarate TABLET BY MOUTH EVERY DAY Clindamycin HCl [facility] 79790825051 300 MG Oral Active TAKE ONE CAPSULE BY MOUTH 3 TIMES A DAY UNTIL ALL TAKEN Ciprofloxacin HCl [facility] 26472274722 0.3 % Active INSTILL 1 Ophthalmic DROP INTO LEFT EYE 4 TIMES A DAY FOR 1 WEEK Aspirin ND 48584257637 81 MG Orally April 06, Active 1 tablet Once a day 2017 Pantoprazole ND 13639343573 40 MG Oral Active TAKE 1 Sodium TABLET BY MOUTH EVERY DAY 1 HOUR BEFORE FOOD Tramadol HCl [facility] 95293366763 50 MG Oral Active (Schedule IV Drug) TAKE 1 TABLET BY MOUTH EVERY 6 HOURS NEEDED FOR PAIN Triamcinolone ND 24866922009 0.1 % External Active APPLY TO Acetonide AFFECTED AREA TWICE A DAY Duloxetine HCl [facility] 83449277911 60 MG Oral Active TAKE ONE CAPSULE BY MOUTH EVERY DAY Paroxetine HCl [facility] 75693685982 20 MG Oral Active TAKE 1 TABLET BY MOUTH EVERYDAY AT BEDTIME Spironolactone NDC 74678580916 25 MG Oral Active TAKE 1 TABLET BY MOUTH EVERY DAY Results No Known Results Summary Purpose eClinicalWorks Submission
--- OUTSIDE RECORDS SUMMARY | 2019-06-03 16:35 | XMS REPORT | Clinical Summary ---
:1945 Author Organization [facility] Address [address] [place] [address] Care Team Providers Name Role Phone Rodolfo [...] Chowdhury Bariatric Surgery Follow Up Letter after 06/02/2018 Family History Medical History Relation Name Comments [...] Vital Signs Vital Sign Reading Time Taken Comments Blood Pressure 128/59 09/06/2018 12:09 PM [facility] Pulse 72 09/06/2018 12:09 PM [facility] Temperature 36.4 C (97.5 F) 09/06/2018 12:09 PM [facility] Respiratory Rate 16 09/06/2018 12:09 PM [facility] Oxygen Saturation - - Inhaled Oxygen Concentration - - Weight 59.1 kg (130 lb 3.2 oz) 09/06/2018 12:09 PM [facility] Height 154.9 cm (5' 1") 09/06/2018 12:09 PM [facility] Body Mass Index 24.6 09/06/2018 12:09 PM [facility] Plan of Treatment Health Maintenance Due Date Last Done Comments BREAST CANCER SCREENING 1995 COLONOSCOPY SCREENING 1995 SHINGLES VACCINES (#1) 1995 65+ PNEUMOCOCCAL VACCINE (1 of 2 - PCV13) 2010 INFLUENZA VACCINE 04/19/2019 Procedures Procedure Name Priority Date/Time Associated Comments Diagnosis COPPER LEVEL, SERUM Routine 08/24/2018 1:10 Results for this PM [facility] procedure are in the results section. VITAMIN B1 LEVEL, Routine 08/24/2018 1:10 Results for this WHOLE BLOOD PM [facility] procedure are in the results section. ZINC LEVEL, SERUM Routine 08/24/2018 1:10 Results for this PM [facility] procedure are in the results section. VITAMIN E LEVEL, Routine 08/24/2018 1:10 Results for this PLASMA OR SERUM PM [facility] procedure are in the results section. VITAMIN A LEVEL, Routine 08/24/2018 1:10 Results for this PLASMA OR SERUM PM [facility] procedure are in the results section. HEMOGLOBIN A1C Routine 08/24/2018 1:10 Results for this PM [facility] procedure are in the results section. VITAMIN D 25 HYDROXY Routine 08/24/2018 1:10 Results for this LEVEL PM [facility] procedure are in the results section. VITAMIN B12 LEVEL Routine 08/24/2018 1:10 Results for this PM [facility] procedure are in the results section. THYROID STIMULATING Routine 08/24/2018 1:10 Results for this HORMONE PM [facility] procedure are in the results section. T4, FREE Routine 08/24/2018 1:10 Results for this PM [facility] procedure are in the results section. T3 Routine 08/24/2018 1:10 Results for this PM [facility] procedure are in the results section. FOLATE LEVEL Routine 08/24/2018 1:10 Results for this PM [facility] procedure are in the results section. FERRITIN LEVEL Routine 08/24/2018 1:10 Results for this PM [facility] procedure are in the results section. CBC WITH PLATELET AND Routine 08/24/2018 1:10 Results for this DIFFERENTIAL PM [facility] procedure are in the results section. COMPREHENSIVE Routine 08/24/2018 1:10 Results for this METABOLIC PANEL PM [facility] procedure are in the results section. TOTAL IRON BINDING Routine 08/24/2018 1:10 Results for this CAPACITY PM [facility] procedure are in the results section. PHOSPHORUS LEVEL Routine 08/24/2018 1:10 Results for this PM [facility] procedure are in the results section. MAGNESIUM LEVEL Routine 08/24/2018 1:10 Results for this PM [facility] procedure are in the results section. LIPID PANEL Routine 08/24/2018 1:10 Results for this PM [facility] procedure are in the results section. PTH, INTACT AND Routine 08/24/2018 1:10 Results for this CALCIUM PM [facility] procedure are in the results section. after 06/02/2018 Results Total iron binding capacity (08/24/2018 1:10 PM [facility]) Iron level 85 45 - 160 mcg/dL MC[facility] [place] Iron binding capacity 344 250 - 450 mcg/dL MC10 (calc) [place] Iron saturation 25 11 - 50 % (calc) [facility] [place] Specimen Narrative Performed At FASTING:YES [facility] FASTING: YES Resulting Agency Comment Performing Organization Information: Site ID: RGA Name: [facility] Address: [address] [place] [phone] Director: Alicia Mejia Performing Organization Address [facility] Phone Number [facility] [employer] [address] [address] Copper level, serum (08/24/2018 1:10 PM [facility]YPE CASTER) Copper 133 70 - 175 MC10 Comment: mcg/dL THALIA ROJAS This test was developed and its analytical performance characteristics have been determined by [facility]. It has not been cleared or approved by the US Food and Drug Administration. This assay has been validated pursuant to the CLIA regulations and is used for clinical purposes. Specimen Narrative Performed At FASTING:YES [facility] FASTING: YES Resulting Agency Comment Performing Organization Information: Site ID: SLI Name: [facility] [place] Address: [id number] [place] [phone] Director: Elder Nolan M.D., Ph.D Performing Organization Address [facility] Phone Number [facility] MC[address] [address] PTH, intact and calcium (08/24/2018 1:10 PM [facility]) PTH 179 (H) 14 - 64 MC10 Comment: pg/mL [place] Interpretive GuideIntact PTH Calcium ------- Normal ParathyroidNormal Normal HypoparathyroidismLow or Low NormalLow Hyperparathyroidism PrimaryNormal or High High SecondaryHigh Normal or Low Tertiary High High Non-Parathyroid HypercalcemiaLow or Low NormalHigh Calcium 9.1 8.6 - 10.4 MC10 mg/dL [place] Specimen Narrative Performed At FASTING:YES [facility] FASTING: YES Resulting Agency Comment Performing Organization Information: Site ID: RGA Name: [facility] Address: [address] [place] [phone] Director: Alicia Mejia Performing Organization Address [facility] Phone Number [facility] [address] [address] Vitamin B1 level, whole blood (08/24/2018 1:10 PM [facility]) Vitamin B1, 186 (H) 78 - 185 MC10 whole blood Comment: nmol/L THALIA ROJAS Vitamin supplementation within 24 hours prior to blood draw may affect the accuracy of results. This test was developed and its analytical performance characteristics have been determined by [facility]. It has not been cleared or approved by FDA. This assay has been validated pursuant to the CLIA regulations and is used for clinical purposes. Specimen Narrative Performed At FASTING:YES [facility] FASTING: YES Resulting Agency Comment Performing Organization Information: Site ID: SLI Name: [facility] [place] Address: [id number] [place] [phone] Director: Elder Nolan M.D., Ph.D Performing Organization Address [facility] Phone Number [facility] [id number] [place] [address] [phone] Zinc level, serum (08/24/2018 1:10 PM [facility]) Zinc 120 60 - 130 [facility] Comment: mcg/dL [facility] This test was developed and its analytical performance characteristics have been determined by [employer] [facility]. It has not been cleared or approved by the US Food and Drug Administration. This assay has been validated pursuant to the CLIA regulations and is used for clinical purposes. Specimen Narrative Performed At FASTING:YES [facility] FASTING: YES Resulting Agency Comment Performing Organization Information: Site ID: [facility] Name: [facility] [place] Address: [address] [place] [address] Director: Elder Nolan M.D., Ph.D Performing Organization Address [facility] Phone Number DEBBIE MC10 [place] [id number] [place] [address] [phone] Vitamin A level, plasma or serum (08/24/2018 1:10 PM [facility]STER) Pathologist [facility] Vitamin A 33 (L) 38 - 98 MC10 (retinol) Comment: mcg/dL [place] [facility] Vol. 34.No.8. [id number]. 1998 Vitamin supplementation within 24 hours prior to blood draw may affect the accuracy of results. This test was developed and its analytical performance characteristics have been determined by [facility]. It has not been cleared or approved by the US Food and Drug Administration. This assay has been validated pursuant to the CLIA regulations and is used for clinical purposes. Specimen Narrative Performed At FASTING:YES [facility] FASTING: YES Resulting Agency Comment Performing Organization Information: Site ID: [facility] Name: [facility] [place] Address: [id number] [place] [phone] Director: Elder Nolan M.D., Ph.D Performing Organization Address [facility] Phone Number [place] MC[address] [address] Vitamin D 25 hydroxy level (08/24/2018 1:10 PM [facility]) Pathologist [facility] Vitamin D, 38 30 - 100 [facility] 25-hydroxy Comment: ng/mL [place] Vitamin D Status 25-OH Vitamin D: Deficiency:<20 ng/mL Insufficiency: 20 - 29 ng/mL Optimal: > or=30 ng/mL For 25-OH Vitamin D testing on patients on D2-supplementation and patients for whom quantitation of D2 and D3 fractions is required, the QuestAssureD(TM) 25-OH VIT D, (D2,D3), LC/MS/MS is recommended: order code [id number] (patients >2yrs). For more information on this test, go to: http://education.[employer]/faq/KWS710 (This link is being provided for informational/educational purposes only.) Specimen Narrative Performed At FASTING:YES [facility] FASTING: YES Resulting Agency Comment Performing Organization Information: Site ID: RGA Name: [facility] Address: [address] [place] [phone] Director: Alicia Mejia Performing Organization Address City/State/Zipcode Phone Number DEBBIE ALVARADO [place] [address] [place] [address] [phone] CBC with platelet and differential (08/24/2018 1:10 PM [facility]STER) WBC 6.2 3.8 - 10.8 [facility] Thousand/uL [place] RBC 4.54 3.80 - 5.10 [facility] Million/uL [place] HGB 13.3 11.7 - 15.5 [facility] g/dL [place] HCT 38.3 35.0 - 45.0 % [facility] [place] MCV 84.4 80.0 - 100.0 fL [facility] [place] MCH 29.3 27.0 - 33.0 pg [facility] [place] MCHC 34.7 32.0 - 36.0 [facility] g/dL [place] RDW 13.3 11.0 - 15.0 % [facility] [place] Platelet count 261 140 - 400 [facility] Thousand/uL [place] MPV 12.0 7.5 - 12.5 fL [facility] [place] Neutrophils, absolute 3,739 1,500 - 7,800 [facility] cells/uL [place] Lymphocytes, absolute 1,798 850 - 3,900 [facility] cells/uL [place] Monocytes, absolute 453 200 - 950 [facility] cells/uL [place] Eosinophils, absolute 143 15 - 500 [facility] cells/uL [place] Basophils, absolute 68 0 - 200 [facility] cells/uL [place] Neutrophils 60.3 % [facility] [place] Lymphocytes 29.0 % [facility] [place] Monocytes 7.3 % [facility] [place] Eosinophils 2.3 % [facility] [place] Basophils + RC 1.1 % [facility] [place] Specimen Narrative Performed At FASTING:YES [facility] FASTING: YES Resulting Agency Comment Performing Organization Information: Site ID: RGA Name: [facility] Address: [address] [place] [phone] Director: Alicia Mejia Performing Organization Address City/[facility]/Zipcode Phone Number DEBBIE ALVARADO [place] [address] [place] [address] T3 (08/24/2018 1:10 PM [facility]STER) T3 86 76 - 181 ng/dL MC10 [place] Specimen Narrative Performed At FASTING:YES [facility] FASTING: YES Resulting Agency Comment Performing Organization Information: Site ID: MAXIME Name: [facility] Address: [address] [place] [phone] Director: Alicia Mejia Performing Organization Address City/[facility] Phone Number [facility] [address] [address] Vitamin E level, plasma or serum (08/24/2018 1:10 PM [facility]STER) Pathologist [facility] Alpha-tocopherol 9.5 5.7 - 19.9 [facility] mg/L Comment: mg/L [facility] Pediatric Term Infants (Cord Blood) 1.8 - 5.8 mg/L Levels of alpha-tocopherol < 5 mg/L are consistent with Vitamin E deficiency in adults Gamma-tocopherol <1.0 <4.4 mg/L [facility] mg/L Comment: [place] Vitamin supplementation within 24 hours prior to blood draw may affect the accuracy of results. This test was developed and its analytical performance characteristics have been determined by [facility]. It has not been cleared or approved by the US Food and Drug Administration. This assay has been validated persuant to the CLIA regulations and is used for clinical purposes. Specimen Narrative Performed At FASTING:YES [facility] FASTING: YES Resulting Agency Comment Performing Organization Information: Site ID: SLI [facility]: [facility] Address: [address] [place] [phone] Director: Elder Nolan M.D., Ph.D Performing Organization Address [facility] Phone Number [facility] [address] [address] Thyroid stimulating hormone (08/24/2018 1:10 PM [facility]OTYPE [facility]STER) Pathologist [facility] TSH 1.69 0.40 - 4.50 mIU/L MC10 [place] Specimen Narrative Performed At FASTING:YES [facility] FASTING: YES Resulting Agency Comment Performing Organization Information: Site ID: MAXIME Name: [facility] Address: [address] [place] [phone] Director: Alicia Mejia Performing Organization Address City/[facility] [place] [address] T4, free (08/24/2018 1:10 PM [facility]) T4, free 1.0 0.8 - 1.8 ng/dL MC10 [place] Specimen Narrative Performed At FASTING:YES [facility] FASTING: YES Resulting Agency Comment Performing Organization Information: Site ID: RGA Name: [facility] Address: [address] [place], [place] [id number] Director: Alicia Mejia Performing Organization Address [facility] [place] [address] Phosphorus level (08/24/2018 1:10 PM [facility]STER) [facility] Phosphorus 3.6 2.1 - 4.3 mg/dL [facility] Specimen Narrative Performed At FASTING:YES [facility] FASTING: YES Resulting Agency Comment Performing Organization Information: Site ID: [facility] Name: [facility] Address: [address] [place] [address] Director: Alicia Mejia Performing Organization Address [facility] [place] [address] Magnesium level (08/24/2018 1:10 PM [facility]OTYPE [facility]STER) [facility] Magnesium 1.6 1.5 - 2.5 mg/dL MC10 [place] Specimen Narrative Performed At FASTING:YES [facility] FASTING: YES Resulting Agency Comment Performing Organization Information: Site ID: RGA Name: [facility] Address: [address] [place], [place] [id number] Director: Alicia Mejia Performing Organization Address [facility] [place] [address] Hemoglobin A1c (08/24/2018 1:10 PM [facility]OT[facility] CASTER) [facility] Hemoglobin A1C 5.4 <5.7 % of [facility] Comment: total Hgb [place] For the purpose of screening for the presence of diabetes: <5.7% Consistent with the absence of diabetes 5.7-6.4%Consistent with increased risk for diabetes (prediabetes) > or=6.5%Consistent with diabetes This assay result is consistent with a decreased risk of diabetes. Currently, no consensus exists regarding use of hemoglobin A1c for diagnosis of diabetes in children. According to [place] Diabetes Association (ADA) guidelines, hemoglobin A1c <7.0% represents optimal control in non- diabetic patients. Different metrics may apply to specific patient populations. Standards of Medical Care in Diabetes(ADA). Specimen Narrative Performed At FASTING:YES [facility] FASTING: YES Resulting Agency Comment Performing Organization Information: Site ID: RGA Name: [facility] Address: [address] [place] [phone] Director: Alicia Mejia Performing Organization Address [facility] [place] [address] Folate level (08/24/2018 1:10 PM [facility]OTYPE CASTER) Folate >24.0 ng/mL [facility] Comment: [place] Reference Range Low: <3.4 Borderline:3.4- 5.4 Normal:> 5.4 Specimen Narrative Performed At FASTING:YES [facility] FASTING: YES Resulting Agency Comment Performing Organization Information: Site ID: RGA Name: [facility] Address: [address] [place] [phone] Director: Alicia Mejia Performing Organization Address [facility] [place] [address] Ferritin level (08/24/2018 1:10 PM [facility]OTYPE [facility]STER) Ferritin level 133 20 - 288 ng/mL MC[facility] [place] Specimen Narrative Performed At FASTING:YES [facility] FASTING: YES Resulting Agency Comment Performing Organization Information: Site ID: RGA Name: [facility] Address: [address] [place] [phone] Director: Alicia Mejia Performing Organization Address [facility] [place] [address] Vitamin B12 level (08/24/2018 1:10 PM [facility]OTYPE CASTER) Vitamin B12 1,701 (H) 200 - 1,100 pg/mL MC[facility] [place] Specimen Narrative Performed At FASTING:YES [facility] FASTING: YES Resulting Agency Comment Performing Organization Information: Site ID: RGA Name: [facility] Address: [address] [place] [phone] Director: Alicia Mejia Performing Organization Address [facility] Phone Number [facility] [address] [address] Lipid panel (08/24/2018 1:10 PM [facility]OTYPE CASTER) Pathologist [facility] Cholesterol, total 106 <200 mg/dL [facility] HDL cholesterol 67 >50 mg/dL [facility] [place] Triglycerides 80 <150 mg/dL [facility] LDL cholesterol 23 mg/dL (calc) MC10 calculated Comment: [place] Reference range: <100 Desirable range <100 mg/dL for primary prevention; <70 mg/dL for patients with CHD or diabetic patients with > or=2 CHD risk factors. LDL-C is now calculated using the Robyn calculation, which is a validated novel method providing better accuracy than the Friedewald equation in the estimation of LDL-C. Hugo SS et al. ROBBY. 2013;310(19): 1700-4241 (http://education.[employer]/faq/GZN175) Cholesterol/HDL 1.6 <5.0 (calc) [facility] Non-HDL cholesterol 39 <130 mg/dL MC10 Comment: (calc) [place] For patients with diabetes plus 1 major ASCVD risk factor, treating to a non-HDL-C goal of <100 mg/dL (LDL-C of <70 mg/dL) is considered a therapeutic option. Specimen Narrative Performed At FASTING:YES [facility] FASTING: YES Resulting Agency Comment Performing Organization Information: Site ID: RGA Name: [facility] Address: [address] [place] [phone] Director: Alicia Mejia Performing Organization Address [facility]/Zipcode Phone Number [facility] [address] [address] Comprehensive metabolic panel (08/24/2018 1:10 PM [facility]OTYPE CASTER) Pathologist [facility] Glucose 99 65 - 99 MC10 Comment: mg/dL [place] Fasting reference interval BUN, whole blood 13 7 - 25 mg/dL [facility] [place] Creatinine 0.52 (L) 0.60 - 0.93 MC10 Comment: mg/dL [place] For patients >49 years of age, the reference limit for Creatinine is approximately 13% higher for people identified as -[place]. EGFR Non-Afr. 95 > OR=60 [facility] [place] mL/min/1.73m [place] 2 EGFR 110 > OR=60 [facility] [place] mL/min/1.73m [place] 2 BUN/creatinine 25 (H) 6 - 22 [facility] ratio (calc) [place] Sodium 143 135 - 146 [facility] mmol/L [place] Potassium 3.2 (L) 3.5 - 5.3 [facility] mmol/L [place] Chloride 101 98 - 110 [facility] mmol/L [place] CO2 34 (H) 20 - 32 [facility] mmol/L [place] Calcium 9.1 8.6 - 10.4 [facility] mg/dL [place] Protein 6.4 6.1 - 8.1 [facility] g/dL [place] Albumin, S 3.9 3.6 - 5.1 [facility] g/dL [place] Globulin, total 2.5 1.9 - 3.7 [facility] g/dL (calc) [place] Albumin/globulin 1.6 1.0 - 2.5 [facility] ratio (calc) [place] Total bilirubin 0.6 0.2 - 1.2 [facility] mg/dL [place] Alkaline 112 33 - 130 U/L [facility] phosphatase [place] AST 35 10 - 35 U/L [facility] [place] ALT 26 6 - 29 U/L [facility] [place] Specimen Narrative Performed At FASTING:YES [facility] FASTING: YES Resulting Agency Comment Performing Organization Information: Site ID: RGA Name: [facility] Address: [address] [place] [phone] Director: Alicia Mejia Performing Organization Address City/State/Zipcode Phone Number [facility] [place] [phone] after 06/02/2018 Insurance Payer Benefit Plan / Subscriber ID Effective Dates Phone Address Type Group AETNA AETNA PPO OPEN xxxxxxxxx 2000-Present PPO CHOICE MEDICARE MEDICARE PART A xxxxxxxxxx 2010-Present [place] Medicare [place] B Advance Directives For more information, please contact: [phone] Type Date Recorded Patient Tier In Explanation Advance Directives, Living Will 2017 7:08 AM and Medical Power of Safety Investigator/Cause Analyst
--- OUTSIDE RECORDS SUMMARY | 2019-06-03 16:35 | XMS REPORT | Clinical Summary ---
:1945 Author Organization [facility] Address [address] [place] [address] Care Team Providers Name Role Phone Unavailable Primary Care Provider Unavailable Allergies No Known Allergies Medications Not on file Active Problems Not on file Encounters Date Type Specialty Care Team Description 05/28/2019 Hospital Encounter Radiology Salvatore Puente Disease of pancreas MD Nestor 05/22/2019 Outside Orders Radiology Salvatore Puente Disease of pancreas MD Nestor (Primary Dx) after 06/02/2018 Social History Tobacco Use Types Packs/Day Years Used Date Never Assessed Sex Assigned at Date Recorded Not on file Job Start Date Occupation Industry Not on file Not on file Not on file Travel History Travel Start Travel End No recent travel history available. Last Filed Vital Signs Not on file Plan of Treatment Not on file Procedures Procedure Name Priority Date/Time Associated Diagnosis Comments MR ABDOMEN Routine 05/28/2019 10:26 AM Disease of pancreas Results for this WITH/WITHOUT IV CDT procedure are in CONTRAST the results section. POCT-CREATININE Routine 05/28/2019 9:30 AM Results for this CDT procedure are in the results section. after 06/02/2018 Results MR abdomen without & with IV contrast (05/28/2019 10:26 AM CDT) Specimen Narrative Performed At FINAL REPORT [place] [facility] TECHNIQUE: MRI of the abdomen and MRCP with 3-D volume rendering WITHOUT and WITH intravenous contrast. INDICATION: 74-year-old woman with mass of pancreas. COMPARISON: None. FINDINGS: LOWER THORAX: Unremarkable. LIVER: No hepatic signal abnormality. No focal hepatic lesions. BILIARY: Prior cholecystectomy. The common bile duct is prominent and measures 1.2 cm in diameter with smooth tapering at the ampulla and no filling defect. The intrahepatic bile ducts are mildly prominent. SPLEEN: No splenomegaly. PANCREAS: Multiple (approximately eight) cystic lesions in the pancreas, most of which appear to communicate with the pancreatic duct. None of the cystic lesions have suspicious features. The largest cystic lesion measures approximately 1.3 x 2.1 cm in the pancreatic head and contains thin internal septations. The second largest cystic lesion measures 1 cm in the proximal pancreatic body and is unilocular. The remainder of the cystic lesions are unilocular and subcentimeter in size. No pancreatic ductal dilatation. ADRENALS: No adrenal nodules. KIDNEYS/URETERS: Cortical scarring on the left. No hydronephrosis or solid mass lesions. 0.9 x 1.2 cm cyst in the left upper pole. PERITONEUM/RETROPERITONEUM: No free fluid. LYMPH NODES: No lymphadenopathy. VESSELS: Unremarkable. GI TRACT: Prior Aruna-en-Y gastric bypass. No distention or wall thickening. BONES AND SOFT TISSUES: Degenerative changes of the visualized spine. Soft tissues are unremarkable. 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 None of these cystic lesions have suspicious features. Diffuse biliary ductal prominence without filling defect, probable postcholecystectomy reservoir effect. This finding may be correlated with liver function tests to assess for cholestasis. Signed: Shaquille Green MD Report Verified Date/Time:05/29/2019 07:30:48 Reading Location: [facility] Diagnostic Imaging Reading Room - [place] [address] Procedure Note Interface, External Ris In - 05/29/2019 7:32 AM CDT FINAL REPORT TECHNIQUE: MRI of the abdomen and MRCP with 3-D volume rendering WITHOUT and WITH intravenous contrast. INDICATION: 74-year-old woman with mass of pancreas. COMPARISON: None. FINDINGS: LOWER THORAX: Unremarkable. LIVER: No hepatic signal abnormality. No focal hepatic lesions. BILIARY: Prior cholecystectomy. The common bile duct is prominent and measures 1.2 cm in diameter with smooth tapering at the ampulla and no filling defect. The intrahepatic bile ducts are mildly prominent. SPLEEN: No splenomegaly. PANCREAS: Multiple (approximately eight) cystic lesions in the pancreas, most of which appear to communicate with the pancreatic duct. None of the cystic lesions have suspicious features. The largest cystic lesion measures approximately 1.3 x 2.1 cm in the pancreatic head and contains thin internal septations. The second largest cystic lesion measures 1 cm in the proximal pancreatic body and is unilocular. The remainder of the cystic lesions are unilocular and subcentimeter in size. No pancreatic ductal dilatation. ADRENALS: No adrenal nodules. KIDNEYS/URETERS: Cortical scarring on the left. No hydronephrosis or solid mass lesions. 0.9 x 1.2 cm cyst in the left upper pole. PERITONEUM/RETROPERITONEUM: No free fluid. LYMPH NODES: No lymphadenopathy. VESSELS: Unremarkable. GI TRACT: Prior Aruna-en-Y gastric bypass. No distention or wall thickening. BONES AND SOFT TISSUES: Degenerative changes of the visualized spine. Soft tissues are unremarkable. 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 None of these cystic lesions have suspicious features. Diffuse biliary ductal prominence without filling defect, probable postcholecystectomy reservoir effect. This finding may be correlated with liver function tests to assess for cholestasis. Signed: Shaquille Green MD Report Verified Date/Time: 05/29/2019 07:30:48 Reading Location: [facility] Diagnostic Imaging Reading Room - [place] [address] Performing Organization Address City/State/Zipcode Phone Number [facility] POC-Creatinine (05/28/2019 9:30 AM CDT) POC-Creatinine 0.6Comment: TESTED AT 0.6 - 1.3 mg/dL [facility] BSC-KG [address] [facility] [id number] POC-EGFR Comment: Insufficient [facility] clinical data to calculate [facility]ENTER estimated GFR Specimen Blood Narrative Performed At Performing Organization Address City/State/Zipcode Phone Number [facility] MEDICAL [address] [place] [address] CENTER after 06/02/2018 Insurance Payer Benefit Plan / Subscriber ID Type Phone Address Group [employer]ET[employer] - AETNA MEDICARE xxxxxxxx [facility] Contracted [phone] [address] MEDICARE MGD HMO POS [id number] [place] [address] Alverto Harris ([place]) [place] [address]
--- OUTSIDE RECORDS SUMMARY | 2019-06-03 16:35 | XMS REPORT ---
:1945 Author Organization [facility] Address [address] [place] [address] Dr. Johns [address] [place] [id number] Care Team Providers Name Role Phone LYSSA EARLY Unavailable Unavailable Problems This patient has no known problems. Allergies, Adverse Reactions, Alerts This patient has no known allergies or adverse reactions. Medications This patient has no known medications. Results Test Description Test Time Test Comments Text Results Atomic Results Result Comments MR, ABDOMEN, WITH 2019-05-29 07:30:00 FINAL REPORT TECHNIQUE: MRI of the abdomen [...] defect. The intrahepatic bile ducts are mildly prominent.SPLEEN: No splenomegaly.PANCREAS: Multiple (approximately eight) cystic lesions in the [...] No pancreatic ductal dilatation. ADRENALS: No adrenal nodules.KIDNEYS/URETERS: Cortical scarring on the left. No hydronephrosis or solid mass lesions. 0.9 x 1.2 cm cyst in the left upper pole. PERITONEUM/RETROPERITONEUM: No free fluid.LYMPH NODES: No lymphadenopathy.VESSELS: Unremarkable. GI TRACT: Prior Aruna-en-Y gastric bypass. No distention or wall thickening. BONES AND SOFT TISSUES: Degenerative changes of the visualized spine. Soft tissues are unremarkable. 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 None of these cystic lesions have suspicious features. Diffuse biliary ductal prominence without filling defect, probable postcholecystectomy reservoir effect. This finding may be correlated with liver function tests to assess for cholestasis. Signed: Shaquille Green MDReport Verified Date/Time: 05/29/2019 07:30:48 Reading Location: [facility] Diagnostic Imaging Reading Room - [place] [id number] -CREATININE 2019-05-28 09:35:00 Test Item Value Reference Range Comments POC-CREATININE (BEAKER) (test 0.6 mg/dL 0.6-1.3 [place]ED [place] [facility] [place] [address] miqh=[id number][place] [facility] [id number] POC-EGFR (BEAKER) (test koyh=0303) Insufficient clinical data to calculate estimated GFR
--- OUTSIDE RECORDS SUMMARY | 2019-06-03 16:35 | XMS REPORT ---
[...] End Status Dosage System Date Date Pantoprazole [facility] [id number] 40 MG Oral Active TAKE 1 Sodium TABLET BY MOUTH EVERY DAY 1 HOUR BEFORE FOOD Xarelto [facility] [id number] 20 MG Oral Active TAKE 1 TABLET BY MOUTH EVERY DAY Aspirin [place] 66556140800 81 MG Orally April 06, Active 1 tablet Once a day 2017 Spironolactone [facility] 56295719917 25 MG Oral Active TAKE 1 TABLET BY MOUTH EVERY DAY Paroxetine HCl [facility] 93202476010 20 MG Oral Active TAKE 1 TABLET BY MOUTH EVERYDAY AT BEDTIME Sotalol HCl [facility] 69896319633 80 MG Oral Active TAKE 1 TABLET BY MOUTH TWICE A DAY Atorvastatin [facility] 91749204725 10 MG Oral Active TAKE 1 Calcium TABLET BY MOUTH EVERY DAY Bisoprolol [facility] 53711288973 5 MG Oral Active TAKE 1 Fumarate TABLET BY MOUTH EVERY DAY Gabapentin [facility] 31973722316 300 MG Oral Active TAKE 1 CAPSULE BY MOUTH THREE TIMES A DAY Results No Known Results Summary Purpose eClinicalWorks Submission
--- NOTE | 2019-06-03 19:13 | RAD REPORT ---
EXAM DESCRIPTION: CT - Head C Spine Cap Wo Con - 06/03/2019 6:48 pm CLINICAL HISTORY: Trauma, head and neck injury. Chest, abdomen and pelvis pain. SMASH INJURY COMPARISON: No comparisons TECHNIQUE: CT head without contrast. CT cervical spine without contrast with coronal and sagittal reformatted images. CT chest, abdomen and pelvis without contrast with coronal and sagittal reformatted images of the [facility] ne. All CT scans are performed using dose optimization technique as appropriate and may include automated exposure control or mA/KV adjustment according to patient size. FINDINGS: CT HEAD WITHOUT CONTRAST: No intracranial hemorrhage, hydrocephalus or extra-axial fluid collection. Mild generalized brain atr ophy is present with mild periventricular and deep white matter chronic microvascular ischemic change s. No areas of brain edema or midline shift. The paranasal sinuses and mastoids are clear. The calvarium is intact. CT CERVICAL SPINE WITHOUT CONTRAST: No fracture or subluxation. The prevertebral soft tissues are normal in thickness. CT CHEST, ABDOMEN, PELVIS WITHOUT CONTRAST: NOTE: Lack of contrast is a significant limitation in the assessment of trauma related findings. Spec ifically, solid organ, vascular and bowel evaluation is significantly limited. The lungs are clear.No pneumothorax or pericardial/pleural fluid. No evidence of intra-abdominal visceral injury, free fluid or free air is seen within the above detai led limitations. No concerning pelvic findings. Multiple wedge compression deformities seen in the lumbar spine, likely chronic. IMPRESSION: Negative for acute traumatic findings within the above detailed limitations.
--- NOTE | 2019-06-03 19:24 | RAD REPORT ---
EXAM DESCRIPTION: RAD - Knee Left 2 View - 06/03/2019 7:15 pm CLINICAL HISTORY: Pain;Smash injury COMPARISON: <Comparisons> FINDINGS: Diffuse osteopenia is seen. Cortical irregularity and lucency is seen along the lateral co ndyle of the femur, suspicious fracture. No significant joint effusion.
[2019-06-03] MEDS ORDERED: MORPHINE 2 MG/ML SYR ONE ×2 (19:49→21:38)
--- NOTE | 2019-06-03 21:53 | RAD REPORT ---
EXAM DESCRIPTION: RAD - Femur Left - 06/03/2019 9:07 pm CLINICAL HISTORY: PAIN COMPARISON: <Comparisons> FINDINGS: Proximal femoral nail is identified without evidence of hardware complication.
--- NOTE | 2019-06-03 21:53 | RAD REPORT ---
EXAM DESCRIPTION: RAD - Tib Fib Left - 06/03/2019 9:07 pm CLINICAL HISTORY: PAIN COMPARISON: <Comparisons> FINDINGS: Prominent osteopenia is seen. No fracture of the tibia or fibula identified. Prominent jeremy ntar calcaneal spur.
--- NOTE | 2019-06-03 22:57 | ER ---
Nurse's Notes [facility] Name: Sharla Tesfaye Age: 74 yrs Sex: Female : 1945 Arrival Date: 06/03/2019 Time: 16:33 Bed 24 Private MD: Deo Echeverria V Diagnosis: Distal femur fracture, closed, lateral condyle Presentation: 06/03 16:40 Presenting complaint: Patient states: fall today after tripping and landed on the left sv leg. Denies LOC. Care prior to arrival: None. Mechanism of Injury: Fall from standing position. 16:40 Acuity: JENNIFER 3 sv 16:40 Method Of Arrival: Wheelchair sv 16:40 Transition of care: patient was not received from another setting of care. Onset of sv symptoms was June 03, 2019. 18:10 Trauma event details: Injury occurred in the [facility], Injury occurred: at the [facility] home. Injury occurred: June 03, 2019. 18:10 Risk Assessment: Do you want to hurt yourself or someone else? Patient reports no ca1 desire to harm self or others. Initial Sepsis Screen: Does the patient meet any 2 criteria? No. Patient's initial sepsis screen is negative. Does the patient have a suspected source of infection? No. Patient's initial sepsis screen is negative. Triage Assessment: 16:40 General: Appears in no apparent distress. comfortable, Behavior is calm, cooperative, sv appropriate for age, smiling and carrying a conversation. Pain: Complains of pain in left leg. Neuro: Level of Consciousness is awake, alert, obeys commands, Oriented to person, place, time, situation, Moves all extremities. Full function Speech is normal. Respiratory: Respiratory effort is even, unlabored, Respiratory pattern is regular, symmetrical. Trauma Activation: Not Applicable Physician: ED Physician; Name: ; Notified At: ; Arrived At: Physician: General Surgeon; Name: ; Notified At: ; Arrived At: Physician: Radiology; Name: ; Notified At: ; Arrived At: Physician: Respiratory; Name: ; Notified At: ; Arrived At: Physician: Lab; Name: ; Notified At: ; Arrived At: Historical: - Allergies: 16:41 Amoxicillin; sv 16:41 annaprox; sv 16:41 Codeine; sv 16:41 Demerol; sv 16:41 Etodolac; sv 16:41 Ibuprofen; sv - PMHx: 16:41 Hypertension; sv - PSHx: 16:41 Gastric Bypass; Knee surgery; Cholecystectomy; Appendectomy; Hysterectomy; sv Tonsillectomy; - Immunization history: Last tetanus immunization: - up to date. - Social history:: Smoking status: Patient/guardian denies using tobacco. - Ebola Screening: : Patient negative for fever greater than or equal to 101.5 degrees Fahrenheit, and additional compatible Ebola Virus Disease symptoms Patient denies exposure to infectious person Patient denies travel to an Ebola-affected area in the 21 days before illness onset No symptoms or risks identified at this time. - Family history:: not pertinent. - Hospitalizations: : No recent hospitalization is reported. Screenin:10 Abuse screen: Denies threats or abuse. Denies injuries from another. Tuberculosis ca1 screening: No symptoms or risk factors identified. 18:10 Nutritional screening: No deficits noted. Fall Risk Fall in past 12 months (25 points). ca1 Ambulatory Aid- Crutches/Cane/Walker (15 pts). Primary Survey: 18:10 NO uncontrolled hemorrhage observed. A: The patient is alert. Airway: patent. ca1 Breathing/Chest: Respiratory pattern: regular, Respiratory effort: spontaneous, unlabored, Breath sounds: clear, bilaterally. Chest inspection: symmetrical rise and fall of the chest. Circulation: Cardiac rhythm: sinus rhythm Heart tones present. Pulses: palpable bilateral radial, brachial, femoral, popliteal, posterior tibial and and dorsalis pedis arteries.. Skin color: pink, Skin temperature: warm, dry. Disability Alert. Exposure/Environment: All clothing and personal items were removed. Forensic evidence collection is not deemed to be indicated at this time. Items placed in patient belonging bag. There is no evidence of uncontrolled external bleeding. No obvious injuries are noted at this time. A warming method has been applied: A warm blanket has been provided to the patient. 21:55 Reassessment Airway Airway Patent Breathing/Chest Respiratory pattern Regular jd3 Respiratory effort Spontaneous Unlabored Chest inspection Symmetrical Circulation Pulses Palpable Color [place] Temperature Warm Disability Alert. Assessment: 18:10 General: Appears in no apparent distress. uncomfortable, Behavior is calm, cooperative, ca1 appropriate for age. Pain: Complains of pain in left leg Pain currently is 8 out of 10 on a pain scale. Neuro: Level of Consciousness is awake, alert, obeys commands, Oriented to person, place, time, situation, Appropriate for age. Cardiovascular: Heart tones S1 S2 present Capillary refill < 3 seconds Patient's skin is warm and dry. Rhythm is sinus rhythm. Respiratory: Airway is patent Respiratory effort is even, unlabored, Respiratory pattern is regular, symmetrical, Breath sounds are clear bilaterally. GI: Abdomen is flat, non-distended, Bowel sounds present X 4 quads. Abd is soft and non tender X 4 quads. : No deficits noted. No signs and/or symptoms were reported regarding the genitourinary system. EENT: No deficits noted. No signs and/or symptoms were reported regarding the EENT system. Derm: Skin is intact, is healthy with good turgor, Skin is pink, warm \T\ dry. Musculoskeletal: Circulation, motion, and sensation intact. Capillary refill < 3 seconds, Range of motion: limited in left knee. 20:01 Reassessment: Patient appears in no apparent distress at this time. Patient and/or ca1 family updated on plan of care and expected duration. Pain level reassessed. Patient is alert, oriented x 3, equal unlabored respirations, skin warm/dry/pink. 21:20 General: Appears in no apparent distress. uncomfortable, Behavior is calm, cooperative, jd3 appropriate for age. Pain: Complains of pain in left leg Quality of pain is described as sharp, tender. Neuro: Level of Consciousness is awake, alert, obeys commands, Oriented to person, place, time, situation. Cardiovascular: Capillary refill < 3 seconds Patient's skin is warm and dry. Respiratory: Airway is patent Respiratory effort is even, unlabored, Respiratory pattern is regular, symmetrical. GI: Abdomen is flat, non-distended, Patient currently denies diarrhea, nausea, vomiting. : No signs and/or symptoms were reported regarding the genitourinary system. EENT: No signs and/or symptoms were reported regarding the EENT system. Derm: Skin is intact, Skin is dry, Skin is normal, Skin temperature is warm. Musculoskeletal: Circulation, motion, and sensation intact. Range of motion: limited in left leg. 21:42 Reassessment: CT called and notified of new order. jd3 22:15 Reassessment: Patient appears in no apparent distress at this time. Patient and/or jd3 family updated on plan of care and expected duration. Pain level reassessed. Patient is alert, oriented x 3, equal unlabored respirations, skin warm/dry/pink. 23:32 Reassessment: Patient appears in no apparent distress at this time. Patient and/or jd3 family updated on plan of care and expected duration. Pain level reassessed. Patient is alert, oriented x 3, equal unlabored respirations, skin warm/dry/pink. reported understanding of discharge instructions. knee immobilizer placed to pt's left knee. assisted pt to front of ER with wheelchair. Vital Signs: 16:41 BP 132 / 69; Pulse 66; Resp 16; Temp 99; Pulse Ox 96% ; Weight 58.97 kg; Height 5 ft. 1 sv in. (154.94 cm); Pain 0/10; 20:01 BP 153 / 81; Pulse 66; Resp 18 S; Pulse Ox 96% on R/A; ca1 21:19 BP 98 / 65; Pulse 105; Resp 18 S; Pulse Ox 97% on R/A; jd3 23:34 BP 102 / 90; Pulse 90; Resp 17 S; Pulse Ox 97% on R/A; jd3 16:41 Body Mass Index 24.56 (58.97 kg, 154.94 cm) sv [place] Coma Score: 18:10 Eye Response: spontaneous(4). Verbal Response: oriented(5). Motor Response: obeys ca1 commands(6). Total: 15. Trauma Score (Adult): 18:10 Eye Response: spontaneous(1); Verbal Response: oriented(1); Motor Response: obeys ca1 commands(2); Systolic BP: > 89 mm Hg(4); Respiratory Rate: 10 to 29 per min(4); [place] Score: 15; Trauma Score: 12 ED Course: 16:33 Patient arrived in ED. rg4 16:34 Deo Echeverria MD is Private Physician. rg4 16:40 Triage completed. sv 16:41 Arm band placed on. sv 18:09 Angela Garcia, BENNY is Primary Nurse. ca1 18:10 Patient has correct armband on for positive identification. Placed in gown. Bed in low ca1 position. Call light in reach. Side rails up X2. 18:10 Pulse ox on. NIBP on. Warm blanket given. Elevated left leg. ca1 18:10 Patient maintains SpO2 saturation greater than 95% on room air. ca1 18:34 Thermoregulation: warm blanket given to patient. ca1 19:07 Juan Serna MD is Attending Physician. rn 20:46 EKG done, by ED staff, reviewed by Juan Serna MD. jp3 22:56 Bobo Werner MD is Referral Physician. rn 23:36 No provider procedures requiring assistance completed. IV discontinued, intact, jd3 bleeding controlled, No redness/swelling at site. Pressure dressing applied. Administered Medications: 20:00 Drug: morphine 2 mg {Note: RASS - 0.} Route: IVP; Site: left antecubital; ca1 21:00 Follow up: Response: No adverse reaction jd3 21:40 Drug: morphine 2 mg Route: IVP; Site: left antecubital; jd3 22:40 Follow up: Response: No adverse reaction; RASS: Alert and Calm (0) jd3 Intake: 23:40 PO: 0ml; Total: 0ml. jd3 Output: 23:40 Urine: 0ml; Total: 0ml. jd3 Outcome: 22:56 Discharge ordered by MD. rn 23:38 Discharged to home via wheelchair, with family. jd3 23:38 Condition: stable 23:38 Discharge instructions given to patient, family, Instructed on discharge instructions, follow up and referral plans. medication usage, Demonstrated understanding of instructions, follow-up care, medications, Prescriptions given X 2. 23:40 Patient's length of stay in the Emergency Department was greater than 2 hours. awaiting jd3 results.Patient's length of stay extended due to 23:44 Patient left the ED. jd3 Signatures: Hiwot Oswald, RN Juan Fox MD MD rn Garcia, Rubi rg4 Krishna Harper RN RN jd3 Pisarski, Jacob jp3 Angela Garcia RN RN ca1
--- NOTE | 2019-06-03 22:58 | EDPHYS ---
Physician Documentation [facility] Name: Sharla Tesfaye Age: 74 yrs Sex: Female : 1945 Arrival Date: 06/03/2019 Time: 16:33 Bed 24 Private MD: Deo Echeverria V ED Physician Juan Serna HPI: 06/03 20:08 This 74 yrs old Female presents to ER via Wheelchair with complaints of Fall rn Injury. 20:08 Details of fall: The patient fell from an upright position, while standing. Onset: The rn symptoms/episode began/occurred just prior to arrival. Associated injuries: The patient sustained left knee/leg. Severity of symptoms: At their worst the symptoms were moderate, in the emergency department the symptoms are unchanged. The patient has not experienced similar symptoms in the past. Reports fall from standing, left knee pain and swelling, landed on grass. NO head injury. Takes xarelto. . Historical: - Allergies: 16:41 Amoxicillin; sv 16:41 annaprox; sv 16:41 Codeine; sv 16:41 Demerol; sv 16:41 Etodolac; sv 16:41 Ibuprofen; sv - PMHx: 16:41 Hypertension; sv - PSHx: 16:41 Gastric Bypass; Knee surgery; Cholecystectomy; Appendectomy; Hysterectomy; sv Tonsillectomy; - Immunization history: Last tetanus immunization: - up to date. - Social history:: Smoking status: Patient/guardian denies using tobacco. - Ebola Screening: : Patient negative for fever greater than or equal to 101.5 degrees Fahrenheit, and additional compatible Ebola Virus Disease symptoms Patient denies exposure to infectious person Patient denies travel to an Ebola-affected area in the 21 days before illness onset No symptoms or risks identified at this time. - Family history:: not pertinent. - Hospitalizations: : No recent hospitalization is reported. ROS: 20:08 Constitutional: Negative for fever, chills, and weight loss, Eyes: Negative for injury, rn pain, redness, and discharge, Neck: Negative for injury, pain, and swelling, Cardiovascular: Negative for chest pain, palpitations, and edema, Respiratory: Negative for shortness of breath, cough, wheezing, and pleuritic chest pain, Abdomen/GI: Negative for abdominal pain, nausea, vomiting, diarrhea, and constipation, MS/Extremity: + left knee and leg pain and injury Skin: Negative for rash, and discoloration, Neuro: Negative for headache, weakness, numbness, tingling, and seizure. Exam: 20:08 Constitutional: This is a well developed, well nourished patient who is awake, alert, rn and in no acute distress. Head/Face: Normocephalic, atraumatic. Neck: Trachea midline, no thyromegaly or masses palpated, and no cervical lymphadenopathy. Supple, full range of motion without nuchal rigidity, or vertebral point tenderness. No Meningismus. Chest/axilla: Nontender with no deformity Respiratory: No increased work of breathing, no retractions or nasal flaring. Abdomen/GI: Soft, non-tender Back: No spinal tenderness. MS/ Extremity: Pulses equal, no cyanosis. + mild swelling posterior to lef tknee, no bony deformity, no hip tenderness, painful ROM left knee. No patellar tenderness. Neuro: Awake and alert, GCS 15, oriented to person, place, time, and situation. Cranial nerves II-XII grossly intact. Motor strength 5/5 in all extremities. Sensory grossly intact. Cerebellar exam normal. Vital Signs: 16:41 BP 132 / 69; Pulse 66; Resp 16; Temp 99; Pulse Ox 96% ; Weight 58.97 kg; Height 5 ft. 1 sv in. (154.94 cm); Pain 0/10; 20:01 BP 153 / 81; Pulse 66; Resp 18 S; Pulse Ox 96% on R/A; ca1 21:19 BP 98 / 65; Pulse 105; Resp 18 S; Pulse Ox 97% on R/A; jd3 23:34 BP 102 / 90; Pulse 90; Resp 17 S; Pulse Ox 97% on R/A; jd3 16:41 Body Mass Index 24.56 (58.97 kg, 154.94 cm) sv Taylor Coma Score: 18:10 Eye Response: spontaneous(4). Verbal Response: oriented(5). Motor Response: obeys ca1 commands(6). Total: 15. Trauma Score (Adult): 18:10 Eye Response: spontaneous(1); Verbal Response: oriented(1); Motor Response: obeys ca1 commands(2); Systolic BP: > 89 mm Hg(4); Respiratory Rate: 10 to 29 per min(4); Taylor Score: 15; Trauma Score: 12 MDM: 19:07 Patient medically screened. rn 20:57 ED course: consulted with Dr. Werner, requests CT knee and then dc home with brace rn and NWB. . 22:55 Differential diagnosis: contusion, fracture, sprain, strain. Data reviewed: vital rn signs, nurses notes, radiologic studies, CT scan, plain films, and as a result, I will discharge patient. Counseling: I had a detailed discussion with the patient and/or guardian regarding: the historical points, exam findings, and any diagnostic results supporting the discharge/admit diagnosis, lab results, radiology results, the need for outpatient follow up, to return to the emergency department if symptoms worsen or persist or if there are any questions or concerns that arise at home. Response to treatment: the patient's symptoms have mildly improved after treatment, and as a result, I will discharge patient. 22:55 ED course: CT shows lateral distal femoral condyle fracture, will dc home NWB and knee rn immobilizer and Dr. Werner f/u as he recommended. . 06/03 17:55 Order name: CT Traumagram (Head C Spine CAP wo con) [facility] 06/03 17:56 Order name: Knee Left 2 View XRAY [facility] 06/03 19:14 Order name: XRAY Femur LEFT rn 06/03 19:14 Order name: XRAY Tib Fib LEFT rn 06/03 19:16 Order name: CT; Complete Time: 19:41 [facility] 06/03 19:33 Order name: RAD; Complete Time: 19:41 [facility] 06/03 17:55 Order name: EKG; Complete Time: 17:56 [facility] 06/03 17:55 Order name: EKG - Nurse/Tech; Complete Time: 18:18 [facility] 06/03 20:32 Order name: EKG; Complete Time: 20:33 [facility] 06/03 20:32 Order name: EKG - Nurse/Tech; Complete Time: 20:56 [facility] 06/03 21:55 Order name: RAD; Complete Time: 22:43 [facility] 06/03 21:57 Order name: RAD; Complete Time: 22:43 [facility] 06/03 22:46 Order name: Knee Immobilizer; Complete Time: 23:43 rn Administered Medications: 20:00 Drug: morphine 2 mg {Note: RASS - 0.} Route: IVP; Site: left antecubital; ca1 21:00 Follow up: Response: No adverse reaction jd3 21:40 Drug: morphine 2 mg Route: IVP; Site: left antecubital; jd3 22:40 Follow up: Response: No adverse reaction; RASS: Alert and Calm (0) jd3 Disposition: 06/03/19 22:56 Discharged to Home. Impression: Distal femur fracture, closed, lateral condyle. - Condition is Stable. - Discharge Instructions: Knee Immobilizer. - Prescriptions for Ultram 50 mg Oral Tablet - take 1 tablet by ORAL route every 6 hours As needed; 20 tablet. Cyclobenzaprine 10 mg Oral Tablet - take 1 tablet by ORAL route every 8 hours As needed; 20 tablet. - Medication Reconciliation Form, Thank You Letter, Antibiotic Education, Prescription Opioid Use form. - Follow up: Bobo Werner MD; When: 2 - 3 days; Reason: Recheck today's complaints, Re-evaluation by your physician. - Problem is new. - Symptoms have improved. Signatures: Dispatcher [employer] EDMS Hiwot Oswald, RN RN Elisabet Herman, DOWNSTAIRS MAID-C DOWNSTAIRS MAID-Csnw Linda Harper RN RN Juan Farris MD MD rn Davies, Jonathon, RN RN Krupa Blandon mw2 Angela Garcia RN RN ca1 Corrections: (The following items were deleted from the chart) 23:44 22:56 06/03/2019 22:56 Discharged to Home. Impression: Distal femur fracture, closed, jd3 lateral condyle. Condition is Stable. Forms are Medication Reconciliation Form, Thank You Letter, Antibiotic Education, Prescription Opioid Use. Follow up: Bobo Werner; When: 2 - 3 days; Reason: Recheck today's complaints, Re-evaluation by your physician. Problem is new. Symptoms have improved. rn
[2019-06-03 23:50] VITALS: TEMP 99
[2019-06-03 23:53] VITALS: O2SAT 97
[2019-06-03 23:54] VITALS: BP 102/90
--- NOTE | 2019-06-04 09:38 | RAD REPORT ---
EXAM DESCRIPTION: - CT LEFT KNEE WO CONTRAST - 06/03/2019 10:50 pm CLINICAL HISTORY: 74 years Female fall COMPARISON: None TECHNIQUE: Images were obtained in axial, sagittal, and coronal planes. Evaluation limited related t o artifact in region of joint space. This exam was performed according to our departmental dose-optimization program which includes use of Automated Exposure Control, adjustment of the mA and/or kV according to patient size and/or use of i terative reconstruction technique. FINDINGS: Mildly comminuted fractures lateral distal femoral condyle. No significant joint effusion. Narrowing patellofemoral joint space with posterior patellar spurring. Degenerative spurring distal femur. No definite fractures proximal tibia or fibula on axial images. Marked bony demineralization. No erosive or lytic lesions seen. No soft tissue abnormality. IMPRESSION: Study limited related to artifact in region of joint space. Mildly comminuted fractures lateral distal femoral condyle. No significant joint effusions seen. Moderate osteoarthritic change. Marked osteopenia. Electronically signed by: Waleska Ramos MD 06/03/2019 10:34 PM CDT Due to temporary technical issues with the PACS/Fluency reporting system, reports are being signed by the in house radiologist as a courtesy to ensure prompt reporting. The interpreting radiologist is f ully responsible for the content of the report.
--- NOTE | 2019-06-04 11:33 | EKG ---
Test Date: 2019-06-03 Test Time: 20:41:57 Railcar Carpenter: ERIC MEASUREMENT RESULTS: Intervals: Rate: 114 RI: QRSD: 76 QT: 354 QTc: 487 Huffman: P: RI: QRS: 34 T: 60 INTERPRETIVE STATEMENTS: Atrial fibrillation with rapid ventricular response with premature ventricular or aberrantly conducted complexes Nonspecific ST and T wave abnormality Abnormal ECG Compared to ECG 06/03/2019 18:18:17 Ventricular premature complex(es) now present ST (T wave) deviation now present Sinus rhythm no longer present Electronically Signed On 06-04-19 11:30:50 CDT by Ray Munoz
--- NOTE | 2019-06-04 11:34 | EKG ---
Test Date: 2019-06-03 Test Time: 18:18:17 Subsurface Augmentee Operator: RICKIE MEASUREMENT RESULTS: Intervals: Rate: 61 RI: 166 QRSD: 80 QT: 484 QTc: 487 [place]: P: 65 RI: 166 QRS: 24 T: 45 INTERPRETIVE STATEMENTS: Normal sinus rhythm Normal ECG Compared to ECG 06/29/2018 16:03:27 ST (T wave) deviation no longer present Possible ischemia no longer present Electronically Signed On 06-04-19 11:31:15 CDT by Ray Munoz
== END 2019-06-03 23:44 | disposition home or self-care (01) ==
LOC: ER 16:31
DX: S72.422A Displaced fracture of lateral condyle of left femur, initial encounter for closed fracture (principal); W19.XXXA Unspecified fall, initial encounter; Y93.89 Activity, other specified; Y92.9 Unspecified place or not applicable; I10 Essential (primary) hypertension; Z88.1 Allergy status to other antibiotic agents; Z88.5 Allergy status to narcotic agent; Z88.6 Allergy status to analgesic agent; Z88.8 Allergy status to other drugs, medicaments and biological substances
CPT/HCPCS: 93005 ×2; 70450; 71250; 72125; 73560; 73552; 73590; 73700; 96374; 99285; J2270 ×2

== ENCOUNTER 2019-08-24 08:02 | Day surgery (SDC) | payer OTHER ==
--- OUTSIDE RECORDS SUMMARY | 2019-08-24 08:04 | XMS REPORT ---
:1945 Author Organization [facility] Address [address] [place] [address] Dr. Johns [address] [place] [id number] Care Team Providers Name Role Phone LYSSA [...] MDReport Verified Date/Time: 05/29/2019 07:30:48 Reading Location: [facility] Diagnostic Imaging Reading Room - [place] [address] -CREATININE 2019-05-28 09:35:00 Test Item Value Reference Range Comments POC-CREATININE (BEAKER) (test 0.6 mg/dL 0.6-1.3 TESTED AT [facility] [address] cohl=[id number]) [facility] [address] POC-EGFR (BEAKER) (test buow=4619) Insufficient clinical data to calculate estimated GFR
--- OUTSIDE RECORDS SUMMARY | 2019-08-24 08:04 | XMS REPORT ---
[...] End Status Dosage System Date Date Gabapentin [facility] 80130083658 300 MG Oral Active TAKE 1 CAPSULE BY MOUTH THREE TIMES A DAY Bisoprolol ND 00573560456 5 MG Oral Active TAKE 1 Fumarate TABLET BY MOUTH EVERY DAY Clindamycin HCl [facility] 80884874966 300 MG Oral Active TAKE ONE CAPSULE BY MOUTH 3 TIMES A DAY UNTIL ALL TAKEN Ciprofloxacin HCl [facility] 47599157125 0.3 % Active INSTILL 1 Ophthalmic DROP INTO LEFT EYE 4 TIMES A DAY FOR 1 WEEK Aspirin ND 64851803268 81 MG Orally April 06, Active 1 tablet Once a day 2017 Pantoprazole ND 65137919704 40 MG Oral Active TAKE 1 Sodium TABLET BY MOUTH EVERY DAY 1 HOUR BEFORE FOOD Tramadol HCl [facility] 01874237534 50 MG Oral Active (Schedule IV Drug) TAKE 1 TABLET BY MOUTH EVERY 6 HOURS NEEDED FOR PAIN Triamcinolone ND 62871441733 0.1 % External Active APPLY TO Acetonide AFFECTED AREA TWICE A DAY Duloxetine HCl [facility] 48708941365 60 MG Oral Active TAKE ONE CAPSULE BY MOUTH EVERY DAY Paroxetine HCl [facility] 75302577129 20 MG Oral Active TAKE 1 TABLET BY MOUTH EVERYDAY AT BEDTIME Spironolactone NDC 98238737918 25 MG Oral Active TAKE 1 TABLET BY MOUTH EVERY DAY Results No Known Results Summary Purpose eClinicalWorks Submission
--- OUTSIDE RECORDS SUMMARY | 2019-08-24 08:04 | XMS REPORT ---
[...] End Status Dosage System Date Date Pantoprazole [facility] 76000455972 40 MG Oral Active TAKE 1 Sodium TABLET BY MOUTH EVERY DAY 1 HOUR BEFORE FOOD Aspirin ND 87719806301 81 MG Orally April 06, Active 1 tablet Once a day 2017 Spironolactone [facility] 79248435283 25 MG Oral Active TAKE 1 TABLET BY MOUTH EVERY DAY Gabapentin [facility] 41299288315 300 MG Oral Active TAKE 1 CAPSULE BY MOUTH THREE TIMES A DAY Bisoprolol [facility] 00868185858 5 MG Oral Active TAKE 1 Fumarate TABLET BY MOUTH EVERY DAY Paroxetine HCl [facility] 98457525977 20 MG Oral Active TAKE 1 TABLET BY MOUTH EVERYDAY AT BEDTIME Results No Known Results Summary Purpose eClinicalWorks Submission
--- OUTSIDE RECORDS SUMMARY | 2019-08-24 08:05 | XMS REPORT ---
[...] End Status Dosage System Date Date Pantoprazole [facility] 13256622446 40 MG Oral Active TAKE 1 Sodium TABLET BY MOUTH EVERY DAY 1 HOUR BEFORE FOOD Xarelto [facility] 15697125603 20 MG Oral Active TAKE 1 TABLET BY MOUTH EVERY DAY Aspirin ND 64572195346 81 MG Orally April 06, Active 1 tablet Once a day 2017 Spironolactone [facility] 18395447613 25 MG Oral Active TAKE 1 TABLET BY MOUTH EVERY DAY Paroxetine HCl [facility] 78267474659 20 MG Oral Active TAKE 1 TABLET BY MOUTH EVERYDAY AT BEDTIME Sotalol HCl [facility] 06835289920 80 MG Oral Active TAKE 1 TABLET BY MOUTH TWICE A DAY Atorvastatin [facility] 92979651537 10 MG Oral Active TAKE 1 Calcium TABLET BY MOUTH EVERY DAY Bisoprolol [facility] 27820861314 5 MG Oral Active TAKE 1 Fumarate TABLET BY MOUTH EVERY DAY Gabapentin [facility] 46387943087 300 MG Oral Active TAKE 1 CAPSULE BY MOUTH THREE TIMES A DAY Results No Known Results Summary Purpose eClinicalWorks Submission
--- OUTSIDE RECORDS SUMMARY | 2019-08-24 08:05 | XMS REPORT ---
[...] Status Dosage System Date Date Gabapentin [facility] 36832986882 300 MG Oral Active TAKE 1 CAPSULE BY MOUTH THREE TIMES A DAY Atorvastatin [facility] 36137980314 10 MG Oral Active TAKE 1 Calcium TABLET BY MOUTH EVERY DAY Sotalol HCl [facility] 80126758170 80 MG Oral Active TAKE 1 TABLET BY MOUTH TWICE A DAY Paroxetine HCl [facility] 22963456957 20 MG Oral Active TAKE 1 TABLET BY MOUTH EVERYDAY AT BEDTIME Spironolactone [facility] 12441434593 25 MG Oral Active TAKE 1 TABLET BY MOUTH EVERY DAY Aspirin [facility] 60873038655 81 MG Orally April 06, Active 1 tablet Once a day 2017 Bisoprolol [facility] 28608373926 5 MG Oral Active TAKE 1 Fumarate TABLET BY MOUTH EVERY DAY Xarelto [facility] 63384055884 20 MG Oral Active TAKE 1 TABLET BY MOUTH EVERY DAY Pantoprazole [facility] 54957290815 40 MG Oral Active TAKE 1 Sodium TABLET BY MOUTH EVERY DAY 1 HOUR BEFORE FOOD Results No Known Results Summary Purpose eClinicalWorks Submission
[2019-08-24] MEDS ORDERED: Zoledronic Acid/Mannitol/Water 5 MG/100 ML INFUS.BOT IV ONE (08:15)
[2019-08-24 08:58] VITALS: BP 139/56; TEMP 98.9; O2SAT 98; BMI 24.5
== END 2019-08-24 09:14 | disposition home or self-care (01) ==
LOC: DS 08:02
PROVIDERS: ATTEND Internal Medicine
DX: M81.0 Age-related osteoporosis without current pathological fracture (principal); R13.10 Dysphagia, unspecified
CPT/HCPCS: 96365; J3489

== ENCOUNTER 2020-02-18 13:10 | Observation (INO) | payer OTHER ==
[2020-02-18 13:50] LABS: Absolute Lymphocytes (CBC) 0.9 K/uL (0.7-4.9); Basophils % 0.4 % (0-1.3); Hematocrit 38.7 % (36.0-45.0); MPV 10.6 fL (7.6-11.3); RBC Red Blood Cell Count 4.36 M/uL (3.86-4.86)
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
[2020-02-18 14:15] LABS: BUN Blood Urea Nitrogen 13 mg/dL (7-18); Bicarbonate 30 mmol/L (21-32); Glucose Level 117 mg/dL (74-106); Sodium Level 143 mmol/L (136-145)
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
--- NOTE | 2020-02-18 14:57 | RAD REPORT ---
EXAM DESCRIPTION: RAD - Hand Left 3 View - 02/18/2020 2:46 pm CLINICAL HISTORY: PAIN COMPARISON: No comparisons FINDINGS: Prominent osteopenia. Mild soft tissue swelling is seen along the dorsum of the hand. No f racture or dislocation.
--- NOTE | 2020-02-18 14:59 | RAD REPORT ---
EXAM DESCRIPTION: RAD - Shoulder Right 2 View - 02/18/2020 2:46 pm CLINICAL HISTORY: PAIN Pain and swelling COMPARISON: Shoulder Right 2 View dated 02/05/2018 FINDINGS: Diffuse osteopenia is seen. Evidence of previous right rotator cuff repair. No acute fract ure or dislocation.
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
--- NOTE | 2020-02-18 15:02 | RAD REPORT ---
EXAM DESCRIPTION: RAD - Knee Left 3 View - 02/18/2020 2:46 pm CLINICAL HISTORY: PAIN COMPARISON: Knee Left 2 View dated 06/03/2019; Knee Left 3 View dated 08/15/2017 FINDINGS: Diffuse osteopenia is seen. Prominent soft tissue swelling is seen anterior to the patella . Mild meniscal chondrocalcinosis. No fracture or joint effusion seen.
--- NOTE | 2020-02-18 15:03 | RAD REPORT ---
EXAM DESCRIPTION: RAD - Tib Fib Left - 02/18/2020 2:46 pm CLINICAL HISTORY: PAIN COMPARISON: Tib Fib Left dated 06/03/2019 FINDINGS: Soft tissue swelling is seen about the leg. Focally prominent pretibial soft tissue swelli ng evident at the level of the mid gutierrez. No acute fracture or dislocation.
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
--- NOTE | 2020-02-18 15:08 | RAD REPORT ---
EXAM DESCRIPTION: RAD - Knee Right 3 View - 02/18/2020 2:46 pm CLINICAL HISTORY: PAIN COMPARISON: Knee Right 3 View dated 11/15/2018; Knee Right 3 View dated 10/11/2016 FINDINGS: Total knee arthroplasty is seen with significant soft tissue swelling anterior and lateral aspect of the knee. A small suprapatellar joint effusion is present. No gross fractures identified.
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
[2020-02-18] MEDS ORDERED: MORPHINE 2 MG/ML SYR ONE ×2 (15:34→17:21)
[2020-02-18] MEDS ORDERED: ONDANSETRON 4 MG/2 ML VIAL ONE (15:34)
[2020-02-18] MEDS ORDERED: NA CHLORIDE 0.9% 1,000 ML ONE (15:34)
--- OUTSIDE RECORDS SUMMARY | 2020-02-18 16:14 | XMS REPORT | Clinical Summary ---
:1945 Author Organization [facility] Address [address] [place] [address] Care Team Providers Name Role Phone Salvatore Mathis MD Primary Care Provider [phone] Allergies Active Allergy Reactions Severity Noted Date Comments Naproxen Sodium 10/07/2016 Chest pain Codeine 10/07/2016 Chest pain-feel s like having a heart attack Ibuprofen Hives, Itching 10/07/2016 Numbness in h ead Etodolac 10/07/2016 Chest pain Medications Medication Sig [...] of 2 - PCV13) 2010 INFLUENZA VACCINE 04/19/2020 Results Not on fileafter 02/17/2019 Insurance Payer Benefit Plan / Subscriber ID Effective Dates Phone Addre ss Type Group AETNA AETNA PPO OPEN xxxxxxxxx 2000-Present PPO CHOICE MEDICARE MEDICARE PART A xxxxxxxxxx 2010-Present [place], [place] Medicare AND B Advance Directives For more information, please contact: [phone] Type Date Recorded Patient Trauma Coordinator Explanati on Advance Directives, Living Will 2017 7:08 AM and Medical Power of Blood Bank Laboratory Professional
--- OUTSIDE RECORDS SUMMARY | 2020-02-18 16:14 | XMS REPORT | Clinical Summary ---
:1945 Author Organization [facility] Address [address] [place] [address] Care Team Providers Name Role Phone Unavailable Primary Care Provider Unavailable Allergies No Known Allergies Medications Not on file Active Problems Not on file Encounters Date Type Specialty Care Team Description 10/05/2019 Hospital Encounter Radiology Salvatore Puente Mass o f pancreas MD Nestor 10/03/2019 Outside Orders Central Scheduling Salvatore Faustin s of pancreas (Primary Dx) 05/28/2019 Hospital Encounter Radiology Salvatore Puente Diseas e of pancreas MD [facility] 05/22/2019 Outside Orders Radiology Salvatore Puente Disease of pancreas MD [facility]or (Primary Dx) after 02/17/2019 Social History Tobacco Use Types Packs/Day Years [...] Procedures Procedure Name Priority Date/Time Associated Diagnosis Comme nts MR ABDOMEN WITH & Routine 10/05/2019 10:06 AM Mass of pancreas Results for this WITHOUT IV CONTRAST APPETIZER PACKER procedur e are in the results section. POCT-CREATININE Routine 10/05/2019 9:28 AM Resul ts for this APPETIZER PACKER procedure are i n the results section. MR ABDOMEN WITH & Routine 05/28/2019 10:26 AM Disease of pancr eas Results for this WITHOUT IV CONTRAST CDT procedur e are in the results section. POCT-CREATININE Routine 05/28/2019 9:30 AM Resul ts for this CDT procedure are i n the results section. after 02/17/2019 Results MR abdomen without & with IV contrast (10/05/2019 10:06 AM APPETIZER PACKER)Only the most recent of2 resultswithin the time period is included. Specimen Narrative Performed At FINAL REPORT [facility] MRI of the abdomen with and without cont rast Clinical History: MASS OF PANCREAS Technique: Multiplanar and multisequence MR images of the abdomen are obtained before and after intravenous co ntrast administration. Contrast is administered to evaluate elzbieta plasm and vasculature. Comparison: May 28, 2019 Discussion: Mildly motion degraded exam. Liver is not cirrhotic in morphology. St atus post cholecystectomy. There is a moderate degree of biliary du ctal dilatation, similar to the prior exam. The extrahepatic bile du ct measures up to 13 mm in diameter. The cystic duct remnant is pro minent as well. On the current exam, and there is an apparent 5 mm filling defect at the level of the distal CBD/ampulla, possibl y reflecting a stone. No suspicious liver mass is identified. Hep atic vasculature is patent. In the pancreas, several cystic foci loc ated in the pancreas are unchanged, some containing a few septati ons, and without enhancing nodules. The main duct is not dilated. T here is no peripancreatic fluid. The spleen, adrenal glands are unremarka ble. Kidneys demonstrate no hydronephrosis, or mass. There is a smal l cyst at the left upper pole. There is no lymphadenopathy, or ascites. Visualized bowel is unremarkable. Osseous structures demonst rate degenerative changes, no suspicious bony lesion is identified. Impression: Status post cholecystectomy. Stable appe arance of moderate biliary ductal dilatation. There is a suspected 5 mm filling defect in distal CBD/ampulla, possibly reflecting a stone . Consider ERCP correlation if clinically appropriate Stable cystic foci in the pancreas, like ly to represent side branch intraductal papillary mucinous neoplasms (IPMN). Signed: Luciano Mitchell MD Report Verified Date/Time:10/05/2019 11:51:38 Reading Location: [facility] Radiology Reading Room Procedure Note Interface, External Ris In - 10/05/2019 11:53 AM APPETIZER PACKER FINAL REPORT MRI of the abdomen with and without cont rast Clinical History: MASS OF PANCREAS Technique: Multiplanar and multisequence MR images of the abdomen are obtained before and after intravenous co ntrast administration. Contrast is administered to evaluate elzbieta plasm and vasculature. Comparison: May 28, 2019 Discussion: Mildly motion degraded exam. Liver is not cirrhotic in morphology. St atus post cholecystectomy. There is a moderate degree of biliary du ctal dilatation, similar to the prior exam. The extrahepatic bile du ct measures up to 13 mm in diameter. The cystic duct remnant is pro minent as well. On the current exam, and there is an apparent 5 mm filling defect at the level of the distal CBD/ampulla, possibl y reflecting a stone. No suspicious liver mass is identified. Hep atic vasculature is patent. In the pancreas, several cystic foci loc ated in the pancreas are unchanged, some containing a few septati ons, and without enhancing nodules. The main duct is not dilated. T here is no peripancreatic fluid. The spleen, adrenal glands are unremarka ble. Kidneys demonstrate no hydronephrosis, or mass. There is a smal l cyst at the left upper pole. There is no lymphadenopathy, or ascites. Visualized bowel is unremarkable. Osseous structures demonst rate degenerative changes, no suspicious bony lesion is identified. Impression: Status post cholecystectomy. Stable appe arance of moderate biliary ductal dilatation. There is a suspected 5 mm filling defect in distal CBD/ampulla, possibly reflecting a stone . Consider ERCP correlation if clinically appropriate Stable cystic foci in the pancreas, like ly to represent side branch intraductal papillary mucinous neoplasms (IPMN). Signed: Luciano Mitchell MD Report Verified Date/Time: 10/05/2019 1 1:51:38 Reading Location: [facility] Radiology Reading Room Performing Organization Address City/[facility]/Zipcode Phone Number [facility] Reviews & Information POC-Creatinine (10/05/2019 9:28 AM APPETIZER PACKER)Only the most recent of2 resultswithin the time period is included. POC-Creatinine 0.5 (L)Comment: TESTED AT 0.6 - 1.3 mg/dL [facility] [address] [place] [address] POC-EGFR 121 mL/min/1.73M2 [facility] Specimen Blood Performing Organization Address City/State/Zipcode Phone Number [facility] [address] [place] [address] CENTER after 02/17/2019 Insurance Payer Benefit Plan / Subscriber ID Type Phone Address Group [employer]ET[employer] - AETNA MEDICARE xxxxxxxxxxxx [facility] [phone] [address] MEDICARE MGD O [id number] [place] [address]
--- OUTSIDE RECORDS SUMMARY | 2020-02-18 16:15 | XMS REPORT ---
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 [place] a a 2-20 [facility] 00:00: st 00 Status Status Disease Active 2017-09 [place] 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[facility] gastric gastric 00:00: st bypass for bypass for 00 obesity obesity Carpal Carpal Disease Active [place] 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 00:00: st of right of right 00 wrist wrist Carpal Carpal Disease Active [place] tunnel tunnel 10-07 [facility] syndrome syndrome 00:00: st on right on right 00 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 Me thodi s with s with 00:00: st myelopathy myelopathy 00 and and radiculopa radiculopa thy thy Arthropath Arthropath Disease Active [place] of right y of right 10-07 Me [facility] shoulder shoulder 00:00: st 00 Pain in Pain in Problem Active [facility] right [facility] shoulder [facility] Other Other Problem Active [facility] closed closed [facility] - displaced displaced Mauro javon fracture fracture l of of Outpati proximal proximal ent end of end of Clinics right right humerus humerus with with routine routine healing, healing, subsequent subsequent encounter encounter Trigger Trigger Problem Active [facility] finger of finger of Luke s - both hands both hands Me moria l Outpati ent Clinics Encounter Encounter Problem Active [facility] for other for other Luke s - orthopedic orthopedic Me moria aftercare aftercare l [facility] Pain, Pain, Problem Active [facility] joint, joint, [facility] - hip, left hip, left Mauro javon l [facility] Closed Closed Problem Active [facility] displaced displaced Luke s - basicervic basicervic Me moria al al l fracture fracture Outpat i of left of left ent femur with femur with Cl inics routine routine healing healing Pain in Pain in Diagnosis Active [facility] t joint of joint of [facility] - right right Memoria wrist wrist l [facility] Left Left Problem Active [facility] sciatic sciatic [facility] - nerve pain nerve pain Me moria l [facility] Pain in Pain in Diagnosis Active [facility] t joint of joint of [facility] - left knee left knee Mauro javon l [facility] Allergies, Adverse Reactions, Alerts Allergy Allergy Status Severity Reaction(s) Onset Inactive Treating Comm ents Source Name Type Date Date Clinician Naproxen Propensi Active Chest [place] Sodium ty to 10-07 pain [facility] adverse 00:00: st reaction 00 s to drug Codeine Propensi Active Chest [place] ty to 10-07 pain-feel [facility] adverse 00:00: s like st reaction 00 having a s to heart drug attack Ibuprofe Propensi Active Hives, Numbness [place] ty to Itching 10-07 in head [facility] adverse 00:00: st reaction 00 s to drug Etodolac Propensi Active Chest [place] ty to 10-07 pain [facility] adverse 00:00: st reaction 00 s to drug Ibuprofe Adverse Active HIVES [facility] n Reaction [facility] Amoxicil Adverse Active Info Not [facility] lauren Reaction Available [facility] Demerol Adverse Active Info Not [facility] Reaction Available kes - [facility] Family History Family Member Diagnosis Comments Start Date Stop Date Source Natural father Arthritis [place] [facility] Natural father Asthma [place] [facility] Natural father Diabetes [place] [facility] Natural father Heart disease [place] Yarsanism Natural father Hypertension [place] Yarsanism Natural mother Cancer [place] [facility] Natural mother Gallbladder disease [facility] Yarsanism Natural sister Diabetes [place] [facility] Natural sister Gallbladder disease H rustammomo Yarsanism Natural sister Heart disease [place] Yarsanism Natural sister Hepatitis [facility] thodist Natural sister Hypertension [facility] Yarsanism Social History Social Habit Start Date Stop Date Quantity Comments Source Sex Assigned At [place] [facility] ethodist Alcohol intake 2018-09-07 2018-09-07 Current Madi Ochoa thodist 00:00:00 00:00:00 non-drinker of alcohol (finding) Smoking Status Start Date Stop Date Source Never smoker Madi Mcclellan t Medications Ordered Filled Start Stop Current Ordering Indication Dosage Frequency Signature Comments Components Source Medication Medication Date Date Medication? Clinician (SIG) Name Name aspirin 2017-09 Yes 81mg QD Take 81 mg [place] (ECOTRIN) 2-19 by mouth Method i 81 MG 12:12: daily. st enteric 18 coated tablet cholecalcif 2017-09 Yes Take by Billie barr raquel, 2- mouth. [facility] vitamin D3, 12:12: st (VITAMIN 18 D3) 5,000 unit tablet CYANOCOBALA 2017-09 Yes Take by Billie barr MIN, - mouth. [facility] VITAMIN 12:12: st B-12, (B-12 18 DOTS ORAL) multivitami 2017-09 Yes 1{tbl} QD Take 1 [place] with 2-19 tablet by [facility] minerals 12:12: mouth st tablet 18 daily. OMEGA-3 2017-09 Yes Take by Madi FATTY - mouth. [facility] ACIDS/FISH 12:12: st OIL (FISH 18 OIL EXTRA STRENGTH ORAL) POTASSIUM 2017-09 Yes Take by Jadyn on CHLORIDE 2-19 mouth. OTC Metho di ORAL 12:12: - 99mg st 18 takes one a day on her own. atorvastati 2017-09 Yes 10mg QD Take 10 mg Barraza n (LIPITOR) 2-19 by mouth Meth estefani 10 MG 12:12: daily. st tablet 18 PARoxetine 2017-09 Yes 20mg QD Take 20 mg [place] (PAXIL) 20 2-19 by mouth Metho di MG tablet 12:12: every st 18 morning. sotalol 2017-09 Yes 80mg Q.5D Take 80 mg [place] (BETAPACE) 2-19 by mouth 2 Met hodi 80 MG 12:12: (two) st tablet 18 times a day. rivaroxaban 2017-09 Yes 20mg Take 20 mg [place] (XARELTO) 2-19 by mouth. Metho di 20 mg 12:12: st tablet 18 Aspirin Aspirin Yes Zach [address] 7-19 [place] [facility] - 00:00: [facility] 00 l [facility] spironolact Yes 25mg QD Take 25 mg [place]za one 1-13 by mouth Methodi (ALDACTONE) 00:00: once st 25 MG 00 daily. tablet gabapentin Yes TAKE 2 [place] (NEURONTIN) 1-02 TABLET BY Met hodi 600 mg 00:00: MOUTH 2 st tablet 00 TIMES A DAY FOR NERVE PAIN bisoprolol 2015-09 Yes 5mg QD Take 5 mg [place] (ZEBETA) 5 2-21 by mouth Metho di MG tablet 00:00: daily. st 00 pantoprazol 2015-09 Yes 40mg QD Take 40 mg Barraza e 2-17 by mouth [facility]i (PROTONIX) 00:00: daily. st 40 MG EC 00 tablet Gabapentin Gabapentin Yes Zach TAKE [address] [facility] Galvez CAPSULE BY [facility] - MOUTH Memoria THREE l TIMES A [facility] DAY ent Clinics Bisoprolol Bisoprolol Yes Zach TAKE [address] [facility] Fumarate Fumarate [place] TABLET BY [facility] - MOUTH Memoria EVERY DAY l [facility] Pantoprazol Pantoprazol Yes Zach TAKE [address] [facility] [facility] e Sodium e Sodium [place] TABLET BY [facility] - M[facility]TH Memoria EVERY DAY l 1 HOUR [facility] BEFORE ent FOOD Clinics Paroxetine Paroxetine Yes Zach TAKE [address] [facility] HCl HCl [place] TABLET BY [facility] - MOUTH Memoria EVERYDAY l AT BEDTIME [facility] Spironolact Spironolact Yes Zach TAKE [address] [facility] [facility] one one [place] TABLET BY [facility] - [facility]TH [facility]oria EVERY DAY l [facility] Xarelto Xarelto Yes Zach TAKE 1 [facility] t [place] TABLET BY [facility] - MOUTH Memoria EVERY DAY l [facility] Clinics Sotalol HCl Sotalol HCl Yes Zach TAKE [address] [facility] [place] TABLET BY [facility] - MOUTH Memoria TWICE A l DAY [facility] Clinics Atorvastati Atorvastati Yes Zach TAKE [address] [facility] n Calcium n Calcium [place] TABLET BY [facility] - [facility]TH [facility] EVERY DAY l [facility] Procedures This patient has no known procedures. Plan of Care Planned Activity Planned Date Details Comments Source Future Scheduled 2020-04-19 INFLUENZA VACCINE Stephenie Holloway Test 00:00:00 [code = INFLUENZA VACCINE] Future Scheduled 2010 65+ PNEUMOCOCCAL [facility] Test 00:00:00 VACCINE (1 of 2 - PCV13) [code = 65+ PNEUMOCOCCAL VACCINE (1 of 2 - PCV13)] Future Scheduled 1995 BREAST CANCER [facility] Ri thodist Test 00:00:00 SCREENING [code = BREAST CANCER SCREENING] Future Scheduled 1995 COLONOSCOPY SCREENING Ho jyoti Yarsanism Test 00:00:00 [code = COLONOSCOPY SCREENING] Future Scheduled 1995 SHINGLES VACCINES (#1) [facility] Test 00:00:00 [code = SHINGLES VACCINES (#1)] Encounters Start End Encounter Admission Attending Care Care Encounter Source Date/Time Date/Time Type Type Clinicians Facility Department ID 2018-10-19 2018-10-19 Outpatient Mercedes Galo [id number] 08:00[facility]00 08[facility]00[facility]00 [facility] 2018-08-28 2018-08-28 Outpatient Mercedes [place] [id number] 09:00:00 09:00:00 t [facility] 2018-05-02 2018-05-02 Outpatient Mercedes [place] [id number] 14:00:00 14:00:00 t [facility] 2018-04-06 2018-04-06 Outpatient Mercedes [place] [id number] 09:00:00 09:00:00 t [facility] Results Test Description Test Time Test Comments Results Result [facility] e Comments MR, ABDOMEN, WITH 2019-10-05 FINAL REPORT PATIENT 11:51:00 ID: [id number] MRI of the abdomen with and without contrast Clinical History: MASS OF PANCREAS Technique: Multiplanar and multisequence MR images of the abdomen are obtained before and after intravenous contrast administration. Contrast is administered to evaluate neoplasm and vasculature. Comparison: May 28, 2019 Discussion: Mildly motion degraded exam. Liver is not cirrhotic in morphology. Status post cholecystectomy. There is a moderate degree of biliary ductal dilatation, similar to the prior exam. The extrahepatic bile duct measures up to 13 mm in diameter. The cystic duct remnant is prominent as well. On the current exam, and there is an apparent 5 mm filling defect at the level of the distal CBD/ampulla, possibly reflecting a stone. No suspicious liver mass is identified. Hepatic vasculature is patent. In the pancreas, several cystic foci located in the pancreas are unchanged, some containing a few septations, and without enhancing nodules. The main duct is not dilated. There is no peripancreatic fluid. The spleen, adrenal glands are unremarkable. Kidneys demonstrate no hydronephrosis, or mass. There is a small cyst at the left upper pole. There is no lymphadenopathy, or ascites. Visualized bowel is unremarkable. Osseous structures demonstrate degenerative changes, no suspicious bony lesion is identified. Impression: Status post cholecystectomy. Stable appearance of moderate biliary ductal dilatation. There is a suspected 5 mm filling defect in distal CBD/ampulla, possibly reflecting a stone. Consider ERCP correlation if clinically appropriate Stable cystic foci in the pancreas, likely to represent side branch intraductal papillary mucinous neoplasms (IPMN). Signed: Luciano Mitchell MDReport Verified Date/Time: 10/05/2019 11:51:38 Reading Location: [facility] Radiology Reading Room -CREATININE 2019-10-05 09:33:00 Test Item Value Reference Range Interpretation Comme [facility] POC-CREATININE (BEAKER) (test 0.5 mg/dL 0.6-1.3 L TESTED AT [facility] 6720 code = 1859) [facility] [address] POC-EGFR (BEAKER) (test code = 121 mL/min/1.73M2 1860) MR, ABDOMEN, [id number] 07:30:00FINAL REPORT TECHNIQUE: MRI of the abdomen and MRCP with 3-D volume renderingWITHOUT and WITH intravenous contrast. INDICATION: 74-year-old woman [...] No pancreatic ductal dilatation. ADRENALS: No adrenal nodules.KIDNEYS/URETERS:Cortical scarring on the left. No hydronephrosis or [...] MDReport Verified Date/Time: 05/29/2019 07:30:48 Reading Location: [facility] Diagnostic Imaging Reading Room - [place] [id number] 09:35:00 Test Item Value Reference Range Interpretation Comments POC-CREATININE 0.6 mg/dL 0.6-1.3 TESTED AT [facility] 0257 ([facility]) (test [facility] code = 1859) [address] POC-EGFR ([facility]) Insufficie nt clinical data (test code = 1860) to calcul ate estimated GFR
[2020-02-18] MEDS ORDERED: POTASSIUM 25 MEQ EFFERV TAB ONE (19:51)
[2020-02-18] MEDS ORDERED: NA CHLORIDE 0.9% 1,000 ML IV SCH (20:13)
[2020-02-18] MEDS ORDERED: ACETAMINOPHEN 500 MG TAB PO PRN (20:13)
[2020-02-18] MEDS ORDERED: ONDANSETRON 4 MG/2 ML VIAL IV PRN (20:13)
--- NOTE | 2020-02-18 20:14 | EDPHYS ---
Physician Documentation [facility] Name: Sharla Tesfaye Age: 75 yrs Sex: Female : 1945 Arrival Date: 02/18/2020 Time: 13:13 Bed 8 Private MD: WADE Physician Nigel Espinosa HPI: 02/17 15:01 This 75 yrs old Female presents to ER via EMS with complaints of Fall Injury. dennys 15:01 Details of fall: The patient fell from an upright position, while walking. Onset: The dennys symptoms/episode began/occurred this morning. Associated injuries: The patient sustained upper back injury, left hand, decreased range of motion, right knee, decreased range of motion, hematoma, left gutierrez, decreased range of motion, hematoma. Severity of symptoms: At their worst the symptoms were moderate, in the emergency department the symptoms are unchanged. The patient has experienced similar episodes in the past, a few times. Historical: - Allergies: 13:19 Amoxicillin; sv 13:19 annaprox; sv 13:19 Codeine; sv 13:19 Demerol; sv 13:19 Etodolac; sv 13:19 Ibuprofen; sv - Home Meds: 13:19 atorvastatin 10 mg oral tab 1 tab once daily [Active]; gabapentin 300 mg oral cap sv [Active]; paroxetine HCl 20 mg Oral tab 1 tab once daily [Active]; sotalol 80 mg Oral tab 2 tabs daily [Active]; spironolactone 25 mg Oral tab 1 tab once daily [Active]; Xarelto 20 mg oral tab 1 tab once daily [Active]; Vitamin C 1,000 mg Oral tab twice a day [Active]; calcium citrate 600 mg Oral gran [Active]; d3 [Active]; vitamin b12 [Active]; - PMHx: 13:19 Hypertension; Atrial Fib; High Cholesterol; sv - PSHx: 13:19 Gastric Bypass; Knee surgery; Cholecystectomy; Appendectomy; Hysterectomy; sv Tonsillectomy; - Immunization history:: Adult Immunizations up to date. - Immunization history: Last tetanus immunization: unknown. - Social history:: Smoking status: Patient denies any tobacco usage or history of. ROS: 15:06 Constitutional: Negative for fever, chills, and weight loss, Eyes: Negative for injury, dennys pain, redness, and discharge, ENT: Negative for injury, pain, and discharge, Neck: Negative for injury, pain, and swelling, Cardiovascular: Negative for chest pain, palpitations, and edema, Respiratory: Negative for shortness of breath, cough, wheezing, and pleuritic chest pain, Abdomen/GI: Negative for abdominal pain, nausea, vomiting, diarrhea, and constipation, : Negative for injury, bleeding, discharge, and swelling, Skin: Negative for injury, rash, and discoloration, Neuro: Negative for headache, weakness, numbness, tingling, and seizure, Psych: Negative for depression, anxiety, suicide ideation, homicidal ideation, and hallucinations, Allergy/Immunology: Negative for hives, rash, and allergies, Endocrine: Negative for neck swelling, polydipsia, polyuria, polyphagia, and marked weight changes, Hematologic/Lymphatic: Negative for swollen nodes, abnormal bleeding, and unusual bruising. 15:06 Back: Positive for injury or acute deformity, decreased range of motion, pain at rest, pain with movement. 15:06 MS/extremity: Positive for decreased range of motion, pain, of the back, left hand, right arm, right leg and left leg. Exam: 15:06 Constitutional: This is a well developed, well nourished patient who is awake, alert, dennys and in no acute distress. Head/Face: Normocephalic, atraumatic. Eyes: Pupils equal round and reactive to light, extra-ocular motions intact. Lids and lashes normal. Conjunctiva and sclera are non-icteric and not injected. Cornea within normal limits. Periorbital areas with no swelling, redness, or edema. ENT: Nares patent. No nasal discharge, no septal abnormalities noted. Tympanic membranes are normal and external auditory canals are clear. Oropharynx with no redness, swelling, or masses, exudates, or evidence of obstruction, uvula midline. Mucous membranes moist. Neck: Trachea midline, no thyromegaly or masses palpated, and no cervical lymphadenopathy. Supple, full range of motion without nuchal rigidity, or vertebral point tenderness. No Meningismus. Chest/axilla: Normal chest wall appearance and motion. Nontender with no deformity. No lesions are appreciated. Cardiovascular: Regular rate and rhythm with a normal S1 and S2. No gallops, murmurs, or rubs. Normal PMI, no JVD. No pulse deficits. Respiratory: Lungs have equal breath sounds bilaterally, clear to auscultation and percussion. No rales, rhonchi or wheezes noted. No increased work of breathing, no retractions or nasal flaring. Abdomen/GI: Soft, non-tender, with normal bowel sounds. No distension or tympany. No guarding or rebound. No evidence of tenderness throughout. Female : Normal external genitalia. Skin: Warm, dry with normal turgor. Normal color with no rashes, no lesions, and no evidence of cellulitis. Neuro: Awake and alert, GCS 15, oriented to person, place, time, and situation. Cranial nerves II-XII grossly intact. Motor strength 5/5 in all extremities. Sensory grossly intact. Cerebellar exam normal. Normal gait. Psych: Awake, alert, with orientation to person, place and time. Behavior, mood, and affect are within normal limits. 15:06 Back: ROM is painful, lordosis, that is mild, CVA tenderness, is absent, vertebral tenderness, is appreciated at T1, T2, T3, T4, T5, T6 and T7, muscle spasm, is appreciated in the left subscapular area, right subscapular area, left mid back and right mid back. 16:15 ECG was reviewed by the Attending Physician. dennys Vital Signs: 13:16 BP 160 / 75; Pulse 73; Resp 18; Temp 97.7; Pulse Ox 99% ; Weight 58.97 kg; Height 5 ft. sv 4 in. (162.56 cm); Pain 6/10; 14:45 BP 151 / 70; Pulse 67; Resp 17; Pulse Ox 100% ; jl7 15:30 BP 159 / 70; Pulse 64; Resp 16; Pulse Ox 100% ; jl7 16:15 BP 137 / 63; Pulse 63; Resp 15; Pulse Ox 100% ; jl7 17:00 BP 136 / 60; Pulse 68; Resp 16; Pulse Ox 96% ; jl7 18:00 BP 126 / 53; Pulse 71; Resp 16 S; Pulse Ox 97% on R/A; jl7 19:50 BP 103 / 37; Pulse 73; Resp 15; Temp 98; Pulse Ox 98% on R/A; rv 13:16 Body Mass Index 22.31 (58.97 kg, 162.56 cm) sv Duane Coma Score: 13:20 Eye Response: spontaneous(4). Verbal Response: oriented(5). Motor Response: obeys sv commands(6). Total: 15. 14:45 Eye Response: spontaneous(4). Verbal Response: oriented(5). Motor Response: obeys jl7 commands(6). Total: 15. 15:30 Eye Response: spontaneous(4). Verbal Response: oriented(5). Motor Response: obeys jl7 commands(6). Total: 15. 16:15 Eye Response: spontaneous(4). Verbal Response: oriented(5). Motor Response: obeys jl7 commands(6). Total: 15. 17:00 Eye Response: spontaneous(4). Verbal Response: oriented(5). Motor Response: obeys jl7 commands(6). Total: 15. 18:00 Eye Response: spontaneous(4). Verbal Response: oriented(5). Motor Response: obeys jl7 commands(6). Total: 15. Trauma Score (Adult): 13:20 Eye Response: spontaneous(1); Verbal Response: oriented(1); Motor Response: obeys sv commands(2); Systolic BP: > 89 mm Hg(4); Respiratory Rate: 10 to 29 per min(4); Duane Score: 15; Trauma Score: 12 MDM: 13:18 Patient medically screened. [facility] 15:12 Data reviewed: vital signs, nurses notes, lab test result(s), EKG, radiologic studies, [facility] CT scan, plain films. 15:14 Differential diagnosis: Anterior dislocation with fracture, Anterior dislocation dennys without fracture, humeral head fracture, DJD, tendonitis, closed fracture, contusion, arthritis, chronic back pain, Fracture Osteoarthritis vertebral fracture. Differential diagnosis: abrasion, closed head injury, contusion, fracture, multiple trauma, sprain, strain. Data interpreted: property assessment monitor: rate is 67 beats/min, Pulse oximetry: on is 100 %. Test interpretation: by ED physician or midlevel provider: ECG, plain radiologic studies. Counseling: I had a detailed discussion with the patient and/or guardian regarding: the historical points, exam findings, and any diagnostic results supporting the discharge/admit diagnosis, lab results, radiology results, the need for further work-up and treatment in the hospital. Medication response: Zofran partially relieved the patient's nausea. ED course: dr tolentino to admit for pain control, hematoma observation. 15:28 Response to treatment: the patient's symptoms have markedly improved after treatment. [facility] ED course: dr tolentino , agrees with admission. 02/17 13:19 Order name: Basic Metabolic Panel; Complete Time: 15:10 w 02/17 13:19 Order name: CBC with Diff; Complete Time: 14:15 snw 02/17 13:19 Order name: XRAY Pelvis snw 02/17 13:19 Order name: XRAY Chest (1 view) snw 02/17 13:19 Order name: Type And Screen; Complete Time: 15:10 snw 02/17 13:20 Order name: Femur Left XRAY snw 02/17 13:20 Order name: Femur Right XRAY snw 02/17 13:20 Order name: Ankle Left 2 View XRAY snw 02/17 13:31 Order name: Knee Left 3 View XRAY sv 02/17 13:31 Order name: Knee Right 3 View XRAY sv 02/17 13:31 Order name: Shoulder Right (2 View) XRAY sv 02/17 13:32 Order name: Tib Fib Left XRAY sv 02/17 13:19 Order name: Labs collected and sent; Complete Time: 13:32 [facility] 02/17 13:41 Order name: Head C Spine Cap Wo Con EDNE 02/17 14:36 Order name: Hand Left 3 View EDNE 02/17 15:11 Order name: PO challenge: juice; Complete Time: 17:13 [facility] 02/17 15:12 Order name: Ice pack; Complete Time: 18:30 [facility] 02/17 15:12 Order name: EKG; Complete Time: 15:13 [facility] 02/17 15:12 Order name: EKG - Nurse/Tech; Complete Time: 15:37 [facility] 02/17 15:26 Order name: CONS Physician Consult EDMS EC:15 Rate is 64 beats/min. Rhythm is regular. QRS Norco is Normal. NE interval is normal. QRS dennys interval is normal. QT interval is prolonged at 478 msec. No Q waves. Clinical impression: NSR w/ Non-specific ST/T Changes and No evidence of ischemia. Interpreted by me. Reviewed by me. Administered Medications: 15:30 Drug: NS 0.9% 1000 ml Route: IV; Rate: 125 ml/hr; Site: left antecubital; jl7 17:19 Follow up: IV Status: Infusion continued upon admission jl7 15:30 Drug: Zofran (Ondansetron) 4 mg Route: IVP; Site: left antecubital; jl7 18:11 Follow up: Response: No adverse reaction; Nausea is decreased jl7 15:32 Drug: morphine 2 mg Route: IVP; Site: left antecubital; jl7 15:55 Follow up: Response: No adverse reaction; Pain is decreased jl7 17:19 Drug: morphine 2 mg Route: IVP; Site: left antecubital; jl7 17:35 Follow up: Response: No adverse reaction; Pain is decreased jl7 19:49 Drug: Potassium Effervescent Tablet 50 mEq Route: PO; rv 19:50 Follow up: Response: Medication administered at discharge. rv Disposition: 02/18/20 15:14 Hospitalization ordered by Deo Tolentino for Inpatient Admission. Preliminary diagnosis are Fall (on) (from) other stairs and steps, Pain in left knee, Pain in right knee - hematoma, Pain in left leg - pretibial hematoma, Coagulation defect, unspecified - xarelto therapy, Hypokalemia. - Bed requested for Telemetry/MedSurg (Inpatient). - Status is Inpatient Admission. rv - Condition is Fair. - Problem is new. - Symptoms have improved. Signatures: Dispatcher [employer] EDMS Hiwot Oswald, RN RN Nigel Dwyer MD MD cha Therrien, Shelly, PROPERTY INVESTOR-C PROPERTY INVESTOR-Csnw Lisa Schaeffer RN RN ss Leal, Jahala, RN RN jl7 Hayden Smith RN RN rv Corrections: (The following items were deleted from the chart) 13:40 13:20 Head C Spine MPR Wo Con+CT.RAD.BRZ ordered. EDMS EDMS 14:36 13:21 Hand Left 2 View+RAD.RAD.BRZ ordered. EDMS EDMS 15:14 15:14 Hospitalization Ordered by Deo Tolentino MD for Inpatient Admission. Preliminary [facility] diagnosis is Fall (on) (from) other stairs and steps; Pain in left knee; Pain in right knee - hematoma; Pain in left leg - pretibial hematoma. Bed requested for Telemetry/MedSurg (Inpatient). Status is Inpatient Admission. Condition is Fair. Problem is new. Symptoms have improved. dennys 15:27 15:14 02/18/2020 15:14 Hospitalization Ordered by Deo Tolentino MD for Inpatient dennys Admission. Preliminary diagnosis is Fall (on) (from) other stairs and steps; Pain in left knee; Pain in right knee - hematoma; Pain in left leg - pretibial hematoma; Coagulation defect, unspecified - xarelto therapy. Bed requested for Telemetry/MedSurg (Inpatient). Status is Inpatient Admission. Condition is Fair. Problem is new. Symptoms have improved. dennys 17:24 15:27 02/18/2020 15:14 Hospitalization Ordered by Deo Tolentino MD for Inpatient ss Admission. Preliminary diagnosis is Fall (on) (from) other stairs and steps; Pain in left knee; Pain in right knee - hematoma; Pain in left leg - pretibial hematoma; Coagulation defect, unspecified - xarelto therapy; Hypokalemia. Bed requested for Telemetry/MedSurg (Inpatient). Status is Inpatient Admission. Condition is Fair. Problem is new. Symptoms have improved. ednnys 19:52 17:24 02/18/2020 15:14 Hospitalization Ordered by Deo Tolentino MD for Inpatient rv Admission. Preliminary diagnosis is Fall (on) (from) other stairs and steps; Pain in left knee; Pain in right knee - hematoma; Pain in left leg - pretibial hematoma; Coagulation defect, unspecified - xarelto therapy; Hypokalemia. Bed requested for Telemetry/MedSurg (Inpatient). Status is Inpatient Admission. Condition is Fair. Problem is new. Symptoms have improved. ss
--- NOTE | 2020-02-18 20:14 | ER ---
Nurse's Notes [facility] Name: Sharla Tesfaye Age: 75 yrs Sex: Female : 1945 Arrival Date: 02/18/2020 Time: 13:13 Bed 8 Private MD: Diagnosis: Fall (on) (from) other stairs and steps;Pain in left knee;Pain in right knee-hematoma;Pain in left leg-pretibial hematoma;Coagulation defect, unspecified-xarelto therapy;Hypokalemia Presentation: 02/17 13:06 Chief complaint: EMS states: s/p fall this morning around 0230 from a standing position sv onto dirt at her house. c/o left ankle/leg/knee/hand, right knee/shoulder pain. Swelling and bruising present on left knee/lower leg and right knee. Denies LOC, is on blood thinners. Vitals WNL. Care prior to arrival: None. Mechanism of Injury: Fall from standing position. Trauma event details: Injury occurred in the [facility], Injury occurred: at home. Injury occurred: February 18, 2020 Injury occurred at: 02:30. 13:06 Acuity: JENNIFER 2 sv 13:06 Method Of Arrival: EMS: [facility] sv 13:16 Coronavirus screen: Proceed with normal triage. Patient denies a cough. Patient denies sv shortness of breath or difficulty breathing. Patient denies measured and/or subjective temperature greater than 100.4F prior to today's visit. Patient denies travel on a cruise ship or to a country the [facility] [place] 2[place] currently lists as an affected area. Patient denies contact with known and/or suspected case of COVID-19. Ebola Screen: No symptoms or risks identified at this time. Initial Sepsis Screen: Does the patient meet any 2 criteria? No. Patient's initial sepsis screen is negative. Does the patient have a suspected source of infection? No. Patient's initial sepsis screen is negative. Risk Assessment: Do you want to hurt yourself or someone else? Patient reports no desire to harm self or others. Onset of symptoms was February 18, 2020. Triage Assessment: 19:50 General: Appears comfortable, Behavior is calm, cooperative. Pain: Complains of pain in rv right leg and left leg. Neuro: Level of Consciousness is awake, alert, obeys commands, Oriented to person, place, time, situation. Derm: Bruising that is dark purple, on right leg and left leg. Musculoskeletal: Swelling present in right leg and left leg. Trauma Activation: Alert Physician: ED Physician; Name: Dr Espinosa; Notified At: 13:14; Arrived At: Physician: General Surgeon; Name: ; Notified At: 13:14; Arrived At: Physician: Radiology; Name: ; Notified At: 13:14; Arrived At: Physician: Respiratory; Name: ; Notified At: 13:14; Arrived At: Physician: Lab; Name: ; Notified At: 13:14; Arrived At: Historical: - Allergies: 13:19 Amoxicillin; sv 13:19 annaprox; sv 13:19 Codeine; sv 13:19 Demerol; sv 13:19 Etodolac; sv 13:19 Ibuprofen; sv - Home Meds: 13:19 atorvastatin 10 mg oral tab 1 tab once daily [Active]; gabapentin 300 mg oral cap sv [Active]; paroxetine HCl 20 mg Oral tab 1 tab once daily [Active]; sotalol 80 mg Oral tab 2 tabs daily [Active]; spironolactone 25 mg Oral tab 1 tab once daily [Active]; Xarelto 20 mg oral tab 1 tab once daily [Active]; Vitamin C 1,000 mg Oral tab twice a day [Active]; calcium citrate 600 mg Oral gran [Active]; d3 [Active]; vitamin b12 [Active]; - PMHx: 13:19 Hypertension; Atrial Fib; High Cholesterol; sv - PSHx: 13:19 Gastric Bypass; Knee surgery; Cholecystectomy; Appendectomy; Hysterectomy; sv Tonsillectomy; - Immunization history:: Adult Immunizations up to date. - Immunization history: Last tetanus immunization: unknown. - Social history:: Smoking status: Patient denies any tobacco usage or history of. Screenin:00 Abuse screen: Denies threats or abuse. Denies injuries from another. Tuberculosis jl7 screening: No symptoms or risk factors identified. 14:00 Nutritional screening: No deficits noted. Fall Risk Fall in past 12 months (25 points). jl7 No secondary diagnosis (0 pts). IV access (20 points). Ambulatory Aid- None/Bed Rest/Nurse Assist (0 pts). Gait- Weak (10 pts.). Mental Status- Oriented to own ability (0 pts). Total Santoro Fall Scale indicates High Risk Score (45 or more points). Fall prevention measures have been instituted. Side Rails Up X 2 Placed Close to Nursing Station Frequent Obs/Assessments Occuring As available patient and family educated on Fall Prevention Program and Strategies. Primary Survey: 13:10 NO uncontrolled hemorrhage observed. A: The patient is alert. Airway: patent, No sv supplemental oxygen in use on arrival. Oral cavity: clear, Trachea midline. Breathing/Chest: Respiratory pattern: regular, Respiratory effort: spontaneous, unlabored, Chest inspection: symmetrical rise and fall of the chest. Circulation: Pulses: palpable right radial artery, right dorsalis pedis artery, left radial artery and left dorsalis pedis artery. Skin color: pink, Skin temperature: warm, dry. Disability Alert. Exposure/Environment: All clothing and personal items were removed. Forensic evidence collection is not deemed to be indicated at this time. Items placed in patient belonging bag. There is no evidence of uncontrolled external bleeding. Obvious injury(ies) are noted at this time: swelling, hematoma and bruising noted A warming method has been applied: A warm blanket has been provided to the patient. 13:30 Reassessment Airway Airway Patent Breathing/Chest Respiratory pattern Regular jl7 Respiratory effort Spontaneous Unlabored Chest inspection Symmetrical Circulation Color Roslyn Temperature Warm Disability Alert. Secondary Survey: 13:10 HEENT: No deficits noted. Gastrointestinal: No deficits noted. : No deficits noted. sv No signs and/or symptoms were reported regarding the genitourinary system. Musculoskeletal: Swelling present in right knee, left knee and left gutierrez. Assessment: 13:26 Reassessment: Pt to CT and then to Xray. sv 14:21 Reassessment: Pt still xray, will get vitals once she returns. sv 14:45 Reassessment: Pt returned from CT. jl7 16:00 Reassessment: Patient appears in no apparent distress at this time. Patient and/or jl7 family updated on plan of care and expected duration. Pain level reassessed. Patient is alert, oriented x 3, equal unlabored respirations, skin warm/dry/pink. 17:00 Reassessment: Patient appears in no apparent distress at this time. Patient and/or jl7 family updated on plan of care and expected duration. Pain level reassessed. Patient is alert, oriented x 3, equal unlabored respirations, skin warm/dry/pink. 18:10 Reassessment: Patient appears in no apparent distress at this time. Patient and/or jl7 family updated on plan of care and expected duration. Pain level reassessed. Patient is alert, oriented x 3, equal unlabored respirations, skin warm/dry/pink. Awaiting ERD visit. Vital Signs: 13:16 BP 160 / 75; Pulse 73; Resp 18; Temp 97.7; Pulse Ox 99% ; Weight 58.97 kg; Height 5 ft. sv 4 in. (162.56 cm); Pain 6/10; 14:45 BP 151 / 70; Pulse 67; Resp 17; Pulse Ox 100% ; jl7 15:30 BP 159 / 70; Pulse 64; Resp 16; Pulse Ox 100% ; jl7 16:15 BP 137 / 63; Pulse 63; Resp 15; Pulse Ox 100% ; jl7 17:00 BP 136 / 60; Pulse 68; Resp 16; Pulse Ox 96% ; jl7 18:00 BP 126 / 53; Pulse 71; Resp 16 S; Pulse Ox 97% on R/A; jl7 19:50 BP 103 / 37; Pulse 73; Resp 15; Temp 98; Pulse Ox 98% on R/A; rv 13:16 Body Mass Index 22.31 (58.97 kg, 162.56 cm) sv Crawford Coma Score: 13:20 Eye Response: spontaneous(4). Verbal Response: oriented(5). Motor Response: obeys sv commands(6). Total: 15. 14:45 Eye Response: spontaneous(4). Verbal Response: oriented(5). Motor Response: obeys jl7 commands(6). Total: 15. 15:30 Eye Response: spontaneous(4). Verbal Response: oriented(5). Motor Response: obeys jl7 commands(6). Total: 15. 16:15 Eye Response: spontaneous(4). Verbal Response: oriented(5). Motor Response: obeys jl7 commands(6). Total: 15. 17:00 Eye Response: spontaneous(4). Verbal Response: oriented(5). Motor Response: obeys jl7 commands(6). Total: 15. 18:00 Eye Response: spontaneous(4). Verbal Response: oriented(5). Motor Response: obeys jl7 commands(6). Total: 15. Trauma Score (Adult): 13:20 Eye Response: spontaneous(1); Verbal Response: oriented(1); Motor Response: obeys sv commands(2); Systolic BP: > 89 mm Hg(4); Respiratory Rate: 10 to 29 per min(4); Crawford Score: 15; Trauma Score: 12 ED Course: 13:13 Patient arrived in ED. sv 13:14 Hiwot Oswald, RN is Primary Nurse. sv 13:16 Triage completed. sv 13:18 Nigel Espinosa MD is Attending Physician. dennys 13:20 Arm band placed on. sv 13:20 Patient has correct armband on for positive identification. Bed in low position. Call sv light in reach. Side rails up X2. Pulse ox on. NIBP on. Door closed. Head of bed elevated. 13:20 Patient maintains SpO2 saturation greater than 95% on room air. sv 13:20 Thermoregulation: warm blanket given to patient. sv 13:25 T\T\S collected, blood band applied to patient. Inserted saline lock: 20 gauge in left sv antecubital area, using aseptic technique. Blood collected. Flushed left antecubital with 5 ml normal saline. 13:42 Head C Spine Cap Wo Con In Process Unspecified. EDMS 14:21 Report given to Sivakumar ZAPATA. sv 14:23 Primary Nurse role handed off by Hiwot Oswald RN sv 14:39 XRAY Pelvis In Process Unspecified. EDMS 14:41 Sivakumar Bagley RN is Primary Nurse. jl7 14:44 XRAY Chest (1 view) In Process Unspecified. EDMS 14:44 Femur Left XRAY In Process Unspecified. EDMS 14:44 Femur Right XRAY In Process Unspecified. EDMS 14:44 Ankle Left 2 View XRAY In Process Unspecified. EDMS 14:44 Knee Left 3 View XRAY In Process Unspecified. EDMS 14:44 Knee Right 3 View XRAY In Process Unspecified. EDMS 14:44 Shoulder Right (2 View) XRAY In Process Unspecified. EDMS 14:44 Tib Fib Left XRAY In Process Unspecified. EDMS 14:46 Hand Left 3 View In Process Unspecified. EDMS 15:13 Deo Echeverria MD is Hospitalizing Provider. dennys 15:44 EKG done, by ED staff, reviewed by Nigel Espinosa MD. [facility] 17:25 No provider procedures requiring assistance completed. Patient admitted, IV remains in jl7 place. intact, No redness/swelling at site. 19:07 Primary Nurse role handed off by Sivakumar Bagley RN jl7 19:33 Hayden Smith, BENNY is Primary Nurse. rv Administered Medications: 15:30 Drug: NS 0.9% 1000 ml Route: IV; Rate: 125 ml/hr; Site: left antecubital; jl7 17:19 Follow up: IV Status: Infusion continued upon admission jl7 15:30 Drug: Zofran (Ondansetron) 4 mg Route: IVP; Site: left antecubital; jl7 18:11 Follow up: Response: No adverse reaction; Nausea is decreased jl7 15:32 Drug: morphine 2 mg Route: IVP; Site: left antecubital; jl7 15:55 Follow up: Response: No adverse reaction; Pain is decreased jl7 17:19 Drug: morphine 2 mg Route: IVP; Site: left antecubital; jl7 17:35 Follow up: Response: No adverse reaction; Pain is decreased jl7 19:49 Drug: Potassium Effervescent Tablet 50 mEq Route: PO; rv 19:50 Follow up: Response: Medication administered at discharge. rv Intake: 13:20 PO: 0ml; Total: 0ml. sv Output: 13:20 Urine: 0ml; Total: 0ml. sv Outcome: 15:14 Decision to Hospitalize by Provider. [facility] 19:51 Admitted to Tele accompanied by tech, via stretcher, room 402, with chart, Report rv called to ERIKA ZAPATA 19:51 Condition: good 19:51 Instructed on the need for admit, Demonstrated understanding of instructions. 19:51 Patient's length of stay in the Emergency Department was greater than 2 hours. SHIFT rv CHANGEPatient's length of stay extended due to 19:52 Patient left the ED. rv Signatures: Dispatcher [employer] EDMS Hiwot Oswald RN RN sv Anderson, Corey, MD MD cha Leal, Jahala, RN RN [facility] Rachel Stark [facility] Luis, Hayden, RN RN rv Corrections: (The following items were deleted from the chart) 17: 14:00 No provider procedures requiring assistance completed. jl7 jl7 17: 14:00 Patient admitted, IV remains in place. intact, No redness/swelling at site. jl7 jl7
[2020-02-18] MEDS: FAMOTIDINE 20 MG/2 ML VIAL IV SCH (21:12)
[2020-02-18] MEDS: NA CHLORIDE 0.9% 1,000 ML IV SCH (21:34)
--- NOTE | 2020-02-18 21:34 | P.SSS ---
Patient History Date of Service: 02/18/20 Reason for admission: FALLEN OFF PORCH History of Present Illness: FRANCE TOOK HER DOG OUT TO URINATE AT 2 AM IT WILL NOT GO ITSELF. SHE FELL OFF HER TWO STEPS HIGH PORCH AND REPORTS TO ER. SHE HAS 5 CM HEMATOMA L LEG AND BRUSING OF BOTH KNEES. DR. EUGENE DECIDED TO ADMIT HER SHE WAS NOT ABLE TO WALK STEADILY. Allergies amoxicillin Allergy (Verified 07/02/18 15:57) Unknown codeine Allergy (Verified 07/02/18 15:57) abdominal pain ibuprofen Allergy (Verified 07/02/18 15:57) Hives etodolac [From Lodine] Adverse Reaction (Verified 07/02/18 15:57) crushing chest pain when used with annaprox annaprox Adverse Reaction (Uncoded 01/31/18 17:33) crushing chest pain when used with lodine Home Medications: Pantoprazole [Protonix Tab*] 40 mg PO DAILY 06/17/15 Spironolactone [Aldactone*] 25 mg PO DAILY 06/17/15 Calcium Carbonate [Calcium] 1 tab PO DAILY 01/29/18 Vit C 1,000 mg PO DAILY 01/29/18 Vit D3` 5,000 iu PO DAILY 01/29/18 PARoxetine HCL [Paroxetine HCl] 20 mg PO BEDTIME 06/26/18 Rivaroxaban [Xarelto] 20 mg PO DAILY #30 tablet 07/02/18 Sotalol HCl [Betapace*] 80 mg PO BID 6AM 6PM tab 07/02/18 Atorvastatin Calcium [Lipitor*] 10 mg PO BEDTIME #30 tab 07/14/18 Baclofen [Lioresal*] 5 mg PO DAILY PRN #30 tab 07/14/18 Cranberry Fruit Extract 400 mg PO BID #120 cap 07/14/18 Hydrocortisone Cream [Hydrocortisone 1% Cream*] 1 appl TOP TID PRN #2 tube 07/14/18 Iron/FA/Vit B-Com W/C [Hemocyte Plus*] 1 tab PO DAILY WITH BREAKFAST #30 tab 07/14/18 Magnesium Oxide [Mag 0X*] 400 mg PO BID #60 tab 07/14/18 Nystatin Powder [Mycostatin (Powder)*] 1 appl TOP BID #2 btl 07/14/18 Potassium Oral Tab [Klor-Con 10 mEq Tab*] 10 meq PO DAILY #30 tab 07/14/18 traMADol HCL [Ultram*] 50 mg PO Q6H PRN #60 tab 07/14/18 - Past Medical/Surgical History Diabetic: No -: HTN -: Gastric bypass -: Knee surgery -: Cholecystectomy -: Appendectomy -: Hysterectomy -: tonsillectomy - Family History Father -: Diabetes - Social History Alcohol use: No CD- Drugs: No Caffeine use: No Review of Systems 10-point ROS is otherwise unremarkable General: Weakness Physical Examination - Vital Signs Temperature: 98 F Blood Pressure: 103/37 Pulse: 73 Respirations: 15 - Physical Exam General: Mild distress, Moderate distress HEENT: Atraumatic, PERRLA, Mucous membr. moist/pink, EOMI, Sclerae nonicteric Neck: Supple, 2+ carotid pulse no bruit, No LAD, Without JVD or thyroid abnormality Respiratory: Clear to auscultation bilaterally, Normal air movement Cardiovascular: Regular rate/rhythm, Normal S1 S2 Gastrointestinal: Normal bowel sounds, No tenderness Musculoskeletal: No tenderness Integumentary: Other (HEMATOMA L LEG. MOD. ) Neurological: Normal gait, Normal speech, Normal strength at 5/5 x4 extr, Normal tone, Normal affect Lymphatics: No axilla or inguinal lymphadenopathy - Studies Laboratory Data (last 24 hrs) 02/18/20 13:25: WBC 7.2, Hgb 13.0, Hct 38.7, Plt Count 210 02/18/20 13:25: Sodium 143, Potassium 3.0 L, BUN 13, Creatinine 0.61, Glucose 117 H - Diagnosis (Problem(s)) (1) A-fib Current Visit: No Status: Acute Qualifiers: Atrial fibrillation type: longstanding persistent Qualified Code(s): I48.11 - Longstanding persistent atrial fibrillation (2) Fall Onset Date: 01/30/18 Current Visit: No Status: Acute Plan: HEMOTOMA. L SIDE. LEG. SMALL. Qualifiers: Encounter type: initial encounter Qualified Code(s): W19.XXXA - Unspecified fall, initial encounter - Disposition Disposition: ROUTINE DISCHARGE
[2020-02-18 22:58] VITALS: BMI 23.3
[2020-02-18] MEDS: MORPHINE 2 MG/ML SYR IV PRN (23:01)
[2020-02-19] MEDS: MORPHINE 2 MG/ML SYR IV PRN (03:14)
[2020-02-19 06:13] LABS: Absolute Lymphocytes (CBC) 1.4 K/uL (0.7-4.9); Basophils % 0.3 % (0-1.3); Hematocrit 33.8 % (36.0-45.0); Lymphocytes % 21.4 % (15.3-44.8); MPV 10.4 fL (7.6-11.3); RBC Red Blood Cell Count 3.65 M/uL (3.86-4.86)
[2020-02-19 06:21] LABS: BUN Blood Urea Nitrogen 11 mg/dL (7-18); Bicarbonate 33 mmol/L (21-32); Glucose Level 112 mg/dL (74-106); Potassium 3.6 mmol/L (3.5-5.1); Sodium Level 144 mmol/L (136-145)
[2020-02-19] MEDS ORDERED: HOME MED 1 EA UNK (Spironolactone [Spironolactone] 25 MG) PO SCH (06:45)
[2020-02-19] MEDS: FAMOTIDINE 20 MG/2 ML VIAL IV SCH (08:35)
--- NOTE | 2020-02-19 08:43 | RAD REPORT ---
EXAM DESCRIPTION: RAD - Chest Single View - 02/19/2020 5:50 am CLINICAL HISTORY: Follow up admission chest Xray Chest pain. COMPARISON: Chest Single View dated 02/18/2020; Chest Single View dated 06/25/2018; CHEST PA AND LAT 2 VIEW dated 01/07/2015; CHEST PA AND LAT 2 VIEW dated 07/05/2014 FINDINGS: Portable technique limits examination quality. The lungs are emphysematous but grossly clear. The heart is normal in size. No displaced fractures. IMPRESSION: Mild COPD.
[2020-02-19] MEDS ORDERED: HOME MED 1 EA UNK (Famotidine [Famotidine] 40 MG) PO SCH (09:00)
[2020-02-19] MEDS ORDERED: SOTALOL HCL 80 MG PO SCH (09:00)
[2020-02-19] MEDS ORDERED: HOME MED 1 EA UNK (Cholecalciferol (Vitamin D3) [Vitamin D3] 1,000 UNIT) PO SCH (09:00)
[2020-02-19] MEDS ORDERED: CALCIUM CARBONATE 2000 MG PO SCH (09:00)
[2020-02-19] MEDS ORDERED: HOME MED 1 EA UNK (Gabapentin [Gabapentin] 600 MG) PO SCH (09:00)
[2020-02-19] MEDS: NA CHLORIDE 0.9% 1,000 ML IV SCH (17:34)
[2020-02-19] MEDS: ACETAMINOPHEN 325 MG TABLET PO PRN (19:24)
--- NOTE | 2020-02-19 19:28 | EKG ---
Test Date: 2020-02-18 Test Time: 15:44:21 Credit Clerk: ARTEM MEASUREMENT RESULTS: Intervals: Rate: 64 WI: 162 QRSD: 76 QT: 478 QTc: 493 [place]: P: 55 WI: 162 QRS: 36 T: 17 INTERPRETIVE STATEMENTS: Normal sinus rhythm Nonspecific T wave abnormality Prolonged QT Abnormal ECG Compared to ECG 06/03/2019 20:41:57 T-wave abnormality now present Prolonged QT interval now present Atrial fibrillation no longer present Ventricular premature complex(es) no longer present ST (T wave) deviation no longer present Electronically Signed On 02-19-20 19:24:20 CDT by Ray Munoz
[2020-02-19] MEDS ORDERED: HOME MED 1 EA UNK (Rivaroxaban [Xarelto] 20 MG) PO SCH (21:00)
[2020-02-19] MEDS ORDERED: ATORVASTATIN CALCIUM 10 MG PO SCH (21:00)
[2020-02-19] MEDS ORDERED: HOME MED 1 EA UNK (Paroxetine Hcl [Paroxetine Hcl] 20 MG) PO SCH (21:00)
[2020-02-19] MEDS ORDERED: HOME MED 1 EA UNK (Gabapentin [Gabapentin] 300 MG) PO SCH (21:00)
--- NOTE | 2020-02-19 22:42 | PN ---
Subjective: Ms. Tesfaye is doing better. Denies chest pain, nausea, vomiting. She is having difficulty getting out of bed because of the recent major fall she had, so we will have to hold the discharge for 1 day as we need either Home Health or inpatient rehab. Patient is preferring Home Health. She has asked for [facility] to be called, so we will discharge her tomorrow if she is stable. If she is not stable, I will still consider inpatient admission if possible. TOM/MARCIAL Voice ID: [id number] Report ID: [id number] ULISES
--- NOTE | 2020-02-19 23:06 | CON ---
Date of Consultation: 02/19/2020 Reason For Consultation: Right knee and left leg pain after a fall. History Of Present Illness: Sharla is a 75-year-old female, presented to the ER after sustaining a fall while playing with dog out to the bathroom, she reports falling off 2 steps out of her porch, with pain and swelling of her left leg and her knee. The patient had x-rays of her bilateral knees in the emergency room which were negative for fracture or dislocation. She also had x-ray of her left leg, which was negative for fracture, dislocation of the left lower extremity. Given the pain and weakness, she was admitted to the floor for consultation for physical therapy and further evaluation of hematomas that she had sustained. At this point, she reports her pain has improved, but she is still feeling weak. Review of Systems: As above, otherwise negative. Past Medical History: Includes hypertension. Past Surgical History: Includes right total knee arthroplasty, left hip intramedullary nailing, gastric bypass, cholecystectomy, appendectomy, hysterectomy, tonsillectomy. Medications: Per med reconciliation. Allergies: TO AMOXICILLIN, CODEINE, IBUPROFEN, ETODOLAC. Family History: Diabetes in her father. Social History: Denies tobacco, alcohol, or drug use. Physical Examination: General: No apparent distress. HEENT: Normocephalic, atraumatic. Neck: Supple. Cardiovascular: Brisk cap refill to all digits. Chest: Nonlabored breathing. Psychiatric: Responsive to exam. Musculoskeletal: Bilateral upper extremity functional range of motion without pain. No gross deformities. No obvious dislocations. Left lower extremity, she does have tenderness to palpation with a small hematoma on the anterior aspect of the tibia. No skin tear noted. No erythema or signs of infection. Positive firing of EHL, FHL, gastrocsoleus complex, tibialis anterior. No pain with range of motion of the hip or knee. Right lower extremity, she does have a hematoma with mild swelling over the anterior aspect of her knee with some ecchymosis. No varus or valgus instability of the right knee. No pain with gentle range of motion of the right knee. No pain with internal or external rotation of right hip. Neurovascularly intact distally. Assessment And Plan: Sharla is a 75-year-old female with right knee contusion and left leg contusion with underlying hematoma. There is no surgical intervention indicated at this time. We will proceed with RICE treatment. She may ice, rest, and elevate her bilateral lower extremity. She may be weightbearing as tolerated for her bilateral lower extremities. Physical therapy, she will work with Physical therapy to aid with mobilization. She will follow up in my clinic in 2 weeks for re-evaluation if her symptoms continued. CV/MODL Voice ID: [id number] Report ID: [id number] ULISES
[2020-02-20] MEDS: ACETAMINOPHEN 325 MG TABLET PO PRN ×2 (01:26→09:30)
[2020-02-20 10:42] VITALS: O2SAT 95
[2020-02-20 13:30] VITALS: BP 107/61; TEMP 98.5
[2020-02-20] MEDS ORDERED: LORazepam 2 MG/ML VIAL ONE (14:22)
--- NOTE | 2020-02-20 16:48 | P.DS ---
Admission Date: 02/18/20 Discharge Date: 02/20/20 Disposition: DC HOME/HOME HEALTH CARE Discharge Condition: FAIR Reason for Admission: FALLEN OFF PORCH - Problems (1) A-fib Status: Acute Qualifiers: Atrial fibrillation type: longstanding persistent Qualified Code(s): I48.11 - Longstanding persistent atrial fibrillation (2) Fall Onset Date: 01/30/18 Status: Acute Qualifiers: Encounter type: initial encounter Qualified Code(s): W19.XXXA - Unspecified fall, initial encounter Brief History of Present Illness: FRANCE TOOK HER DOG OUT TO URINATE AT 2 AM IT WILL NOT GO ITSELF. SHE FELL OFF HER TWO STEPS HIGH PORCH AND REPORTS TO ER. SHE HAS 5 CM HEMATOMA L LEG AND BRUSING OF BOTH KNEES. DR. EUGENE DECIDED TO ADMIT HER SHE WAS NOT ABLE TO WALK STEADILY. FRANCE IS DOING ALOT BETTER. SHE COULD NOT GET OUT OF BED YESTERDAY. TODAY SHE IS ABLE TO. SHE WILL GET HOME HEALTH FOR PT. Vital Signs/Physical Exam: Temp Pulse Resp BP Pulse Ox 98.5 F 84 16 107/61 100 02/20/20 12:00 02/20/20 12:00 02/20/20 12:00 02/20/20 12:00 02/20/20 12:00 Laboratory Data at Discharge: WBC 6.7 K/uL (4.3-10.9) 02/19/20 05:36 Hgb 11.4 g/dL (12.0-15.0) L 02/19/20 05:36 Hct 33.8 % (36.0-45.0) L 02/19/20 05:36 Plt Count 166 K/uL (152-406) D 02/19/20 05:36 Sodium 144 mmol/L (136-145) 02/19/20 05:36 Potassium 3.6 mmol/L (3.5-5.1) 02/19/20 05:36 BUN 11 mg/dL (7-18) 02/19/20 05:36 Creatinine 0.53 mg/dL (0.55-1.3) L 02/19/20 05:36 Glucose 112 mg/dL (74-106) H 02/19/20 05:36 Home Medications: Atorvastatin Calcium 10 mg PO BEDTIME 02/18/20 Calcium Carbonate 2,000 mg PO DAILY 02/18/20 Cholecalciferol (Vitamin D3) [Vitamin D3] 1,000 unit PO DAILY 02/18/20 Famotidine 40 mg PO DAILY 02/18/20 Gabapentin 300 mg PO BEDTIME 02/18/20 Gabapentin 600 mg PO DAILY 02/18/20 PARoxetine HCL [Paroxetine HCl] 20 mg PO BEDTIME 02/18/20 Rivaroxaban [Xarelto] 20 mg PO BEDTIME 02/18/20 Sotalol HCl [Betapace*] 80 mg PO BID 02/18/20 Spironolactone 25 mg PO Q48H 02/18/20 Followup: Deo Echeverria MD [ACTIVE - CAN ADMIT] - 1-2 Weeks (Follow up in office in 1-2 weeks. Call to schedule an appointment.)
== END 2020-02-20 14:45 | disposition home health service (06) ==
LOC: ER 13:10 → INTOOBSV 15:19 → ERHOLD 15:19 → 4TH 19:38
PROVIDERS: ADMIT Internal Medicine; ATTEND Internal Medicine
DX: S80.12XA Contusion of left lower leg, initial encounter (principal); S80.02XA Contusion of left knee, initial encounter; S80.01XA Contusion of right knee, initial encounter; W10.8XXA Fall (on) (from) other stairs and steps, initial encounter; E87.6 Hypokalemia; R79.1 Abnormal coagulation profile; R94.31 Abnormal electrocardiogram [ECG] [EKG]; J44.9 Chronic obstructive pulmonary disease, unspecified; M85.88 Other specified disorders of bone density and structure, other site; M25.461 Effusion, right knee; M79.89 Other specified soft tissue disorders; M11.262 Other chondrocalcinosis, left knee; M77.32 Calcaneal spur, left foot; E78.00 Pure hypercholesterolemia, unspecified; I10 Essential (primary) hypertension; I48.11 Longstanding persistent atrial fibrillation; Z79.01 Long term (current) use of anticoagulants; Z79.899 Other long term (current) drug therapy; Z98.84 Bariatric surgery status; Z96.651 Presence of right artificial knee joint
CPT/HCPCS: 96361; 93005; 85025 ×2; 80048 ×2; 36415; 86900; 86850; 86901; 70450; 71250; 72125; 71045 ×2; 72170; 73130; 73030; 73562 ×2; 73552 ×2; 73590; 73600; 97116 ×3; 97161; 97530 ×3; 96375; 96374; 99285; J2270 ×4; J7030 ×2; J2405; G0378 ×4

== ENCOUNTER 2020-04-05 20:43 | Emergency (ER) | payer OTHER ==
--- NOTE | 2020-04-05 21:15 | RAD REPORT ---
EXAM DESCRIPTION: CT - Ct Stroke Brain Wo Cont - 04/05/2020 8:59 pm CLINICAL HISTORY: Left-sided weakness/TIA COMPARISON: 2017 TECHNIQUE: Computed axial tomography of the head was obtained. All CT scans are performed using dose optimization technique as appropriate and may include automated exposure control or mA/KV adjustment according to patient size. FINDINGS: An intracranial bleed is not seen . The ventricles are normal in caliber. No extra-axial fluid collection is noted. Mild low-density within periventricular, deep and subcortical white matter likely ischemic changes s econdary to small vessel disease Fluid within the sinuses/ mastoids is not seen. IMPRESSION: No acute intracranial abnormality is seen. If patient's symptoms persist MRI of the bra in would be recommended. Nigel Page of the emergency room was notified at 9:10 p.m. April 05, 2020
[2020-04-05 21:23] LABS: Absolute Lymphocytes (CBC) 1.5 K/uL (0.7-4.9); Hematocrit 39.6 % (36.0-45.0); Lymphocytes % 24.2 % (15.3-44.8); MPV 10.8 fL (7.6-11.3); RBC Red Blood Cell Count 4.35 M/uL (3.86-4.86)
[2020-04-05 21:30] LABS: Protime INR 1.12
[2020-04-05] MEDS ORDERED: ASPIRIN 81 MG CHEWABLE TABLET ONE (21:30)
[2020-04-05] MEDS ORDERED: FOLIC ACID 5 MG/ML VIAL ONE (21:31)
[2020-04-05] MEDS ORDERED: NA CHLORIDE 0.9% 50 ML IV ONE (21:32)
[2020-04-05 21:49] LABS: Magnesium 1.9 mg/dL (1.8-2.4)
[2020-04-05 21:51] LABS: Troponin (Emerg Dept Use Only) 5.14 ng/mL (0.0-0.045)
[2020-04-05] MEDS ORDERED: NA CHLORIDE 0.9% 500 ML ONE (22:26)
[2020-04-05] MEDS ORDERED: POTASSIUM 25 MEQ EFFERV TAB ONE (23:45)
--- NOTE | 2020-04-06 00:45 | ER ---
Nurse's Notes [facility] Name: Sharla Tesfaye Age: 75 yrs Sex: Female : 1945 Arrival Date: 04/05/2020 Time: 20:44 Bed 16 Private MD: Diagnosis: Weakness-left arm and left leg;Elevated Troponin Presentation: 04/05 20:45 Chief complaint: EMS states: pt reports left sided heaviness to the left arm and left sg leg that began about 2 hours ago, pt reported previous TIA. pt had a obvious drift to the left arm per EMS prior to transport to ER. Coronavirus screen: Patient denies a cough. Patient denies shortness of breath or difficulty breathing. Patient denies measured and/or subjective temperature greater than 100.4F prior to today's visit. Patient denies travel on a cruise ship or to a country the [facility] currently lists as an affected area. Patient denies contact with known and/or suspected case of COVID-19. Ebola Screen: Patient negative for fever greater than or equal to 101.5 degrees Fahrenheit, and additional compatible Ebola Virus Disease symptoms Patient denies exposure to infectious person. Patient denies travel to an Ebola-affected area in the 21 days before illness onset. No symptoms or risks identified at this time. No acute neurological deficit is noted. The patients blood glucose was checked before arriving to the hospital and was found to be normal. Initial Sepsis Screen: Does the patient meet any 2 criteria? No. Patient's initial sepsis screen is negative. Does the patient have a suspected source of infection? No. Patient's initial sepsis screen is negative. Risk Assessment: Do you want to hurt yourself or someone else? Patient reports no desire to harm self or others. Onset of symptoms was April 05, 2020. Care prior to arrival: None. Transition of care: patient was not received from another setting of care. 20:45 Method Of Arrival: EMS: [facility] 20:45 Acuity: JENNIFER 3 sg Triage Assessment: 21:00 The onset of the patients symptoms was April 05, 2020 at 16:00. General: Appears in no vc apparent distress. uncomfortable. Stroke Activation: Symptom onset < 3 hours Physician: Stroke Attending; Name: ; Notified At: ; Arrived At: Physician: Chief Stroke Resident; Name: ; Notified At: ; Arrived At: Physician: Stroke Resident; Name: ; Notified At: ; Arrived At: Physician: ED Attending; Name: ; Notified At: ; Arrived At: Physician: ED Resident; Name: ; Notified At: ; Arrived At: Historical: - Allergies: 21:54 Amoxicillin; sg 21:54 annaprox; sg 21:54 Codeine; sg 21:54 Demerol; sg 21:54 Etodolac; sg 21:54 Ibuprofen; sg - PMHx: 21:54 Atrial Fib; High Cholesterol; Hypertension; sg - PSHx: 21:54 Gastric Bypass; Knee surgery; Cholecystectomy; Appendectomy; Hysterectomy; sg Tonsillectomy; - Immunization history:: Adult Immunizations not up to date. - Social history:: Smoking status: Patient denies any tobacco usage or history of. Screenin:00 Abuse screen: Denies threats or abuse. Nutritional screening: No deficits noted. vc Tuberculosis screening: No symptoms or risk factors identified. Fall Risk None identified. Assessment: 21:00 Patient has been NPO before screening. The patient is alert, and able to follow vc commands. The patient does not exhibit slurred or garbled speech. The patient is not exhibiting difficulty speaking. The patient does not exhibit difficulty understanding words. The patient is able to swallow own secretions with no drooling or need for suction. Patient tolerated one teaspoon of water. No drooling, immediate coughing, gurgling, or clearing of the throat was noted. The patient passed the bedside swallow screening. Oral medications may be given as ordered. Contact Physician for further diet orders. Provider notified of bedside swallow screening results: Nigel SZYMANSKI. 21:00 VAN Scoring: Arm Drift: Severe drift Visual Disturbance: No visual disturbance noted. vc Aphasia: No aphasia noted. Neglect: No neglect noted. T-PA (Activase) Screening: Indications: Definite evidence of stroke, ischemic, embolic, or hypertensive: Yes. Treatment will start within 4.5 hours onset of symptoms: No. No evidence of intracranial hemorrhage or CT of head and no evidence of peripheral hemorrhage or recent CVA: No. Contraindications:. General: Appears in no apparent distress. uncomfortable, Behavior is calm, cooperative, appropriate for age. Pain: Denies pain. Neuro: Level of Consciousness is awake, alert, obeys commands, Oriented to person, place, time, situation, Appropriate for age Weakness in left arm(s) leg(s) Gait is unsteady, Speech is normal, Facial symmetry appears normal, Intact Reports weakness in left leg and left arm. Cardiovascular: Capillary refill < 3 seconds Patient's skin is warm and dry. Respiratory: Airway is patent Respiratory effort is even, unlabored, Respiratory pattern is regular, symmetrical. GI: No signs and/or symptoms were reported involving the gastrointestinal system. : No signs and/or symptoms were reported regarding the genitourinary system. 22:00 Reassessment: Patient appears in no apparent distress at this time. Patient and/or vc family updated on plan of care and expected duration. Pain level reassessed. Patient is alert, oriented x 3, equal unlabored respirations, skin warm/dry/pink. 23:00 Reassessment: Patient appears in no apparent distress at this time. Patient and/or vc family updated on plan of care and expected duration. Pain level reassessed. Patient is alert, oriented x 3, equal unlabored respirations, skin warm/dry/pink. Patient states symptoms have improved. 04/06 00:00 Reassessment: Patient appears in no apparent distress at this time. Patient and/or vc family updated on plan of care and expected duration. Pain level reassessed. Patient is alert, oriented x 3, equal unlabored respirations, skin warm/dry/pink. Patient states symptoms have improved. 01:00 Reassessment: Patient appears in no apparent distress at this time. Patient and/or vc family updated on plan of care and expected duration. Pain level reassessed. Patient is alert, oriented x 3, equal unlabored respirations, skin warm/dry/pink. Patient states symptoms have improved. Vital Signs: 04/05 21:00 Weight 68.04 kg (R); sg 21:54 BP 148 / 89; Pulse 78; Resp 18; Temp 97.7; Pulse Ox 100% on R/A; sg 22:00 BP 141 / 109; Pulse 65; Resp 18; Pulse Ox 100% on R/A; vc 23:00 BP 139 / 119; Pulse 62; Resp 18; Pulse Ox 100% on R/A; vc 23:00 BP 141 / 109; Pulse 67; Resp 18; Pulse Ox 99% on R/A; vc 04/06 00:00 BP 102 / 80; Pulse 85; Resp 18; Pulse Ox 99% on R/A; vc 01:00 BP 124 / 62; Pulse 73; Resp 17; Temp 97.9; Pulse Ox 100% on R/A; vc NIH Stroke Scale Scores: 04/05 21:00 NIHSS Score: 7 vc 21:05 NIHSS Score: 4 cp ED Course: 20:44 Patient arrived in ED. sg 20:45 Patient has correct armband on for positive identification. Bed in low position. Call jp3 light in reach. Side rails up X 1. Verbal reassurance given. Pulse ox on. NIBP on. 20:46 Wade Sears MD is Attending Physician. [facility] 20:47 Triage completed. sg 20:50 Inserted saline lock: 20 gauge in right antecubital area, using aseptic technique. jp3 Blood collected. 20:50 Initial lab(s) drawn, by me, sent to lab. Patient maintains SpO2 saturation greater jp3 than 95% on room air. 20:52 Nigel Herbert PA is PHCP. cp 20:59 CT Stroke Brain w/o Contrast In Process Unspecified. EDMS 21:00 Arm band placed on right wrist. vc 21:02 Bobo Sawant, RN is Primary Nurse. sg 21:07 Stroke CXR 1 View In Process Unspecified. EDMS 23:12 CT Head Angio In Process Unspecified. EDMS 23:12 CT Neck Angio In Process Unspecified. EDMS 04/06 01:57 No provider procedures requiring assistance completed. Patient transferred, IV remains vc in place. Administered Medications: 04/05 21:30 Drug: Aspirin Chewable Tablet 324 mg Route: PO; vc 22:26 Follow up: Response: No adverse reaction vc 22:04 Drug: foLIC Acid 1 mg Route: IVPB; Site: right antecubital; vc 22:26 Drug: NS 0.9% 500 ml Route: IV; Rate: 500 ml/hr; Site: right antecubital; vc 23:33 CANCELLED (Other Intervention Used): Potassium Chloride 20 mEq IV at calculated rate vc once; administer over 1-2 hours 23:40 Drug: Potassium Effervescent Tablet 50 mEq Route: PO; vc 04/06 01:41 Drug: PlaVIX 300 mg Route: PO; vc Point of Care Testing: Blood Glucose: 04/05 21:00 Blood Glucose: 93 mg/dL; vc Ranges: Outcome: 04/06 00:45 ER care complete, transfer ordered by cp 01:57 Transferred by ground EMS to [facility]. 01:57 Condition: good 01:57 Instructed on the need for transfer. 01:58 Patient left the ED. NIH Stroke Scale - NIH Stroke Score Date: 04/05/2020 Time: 21:00 Total Score = 7 1a. Level of Consciousness (LOC) - 0(Alert) 1b. Level of Consciousness (LOC) (Year \T\ Age) - 0(Both) 1c. LOC Commands (Open \T\ Closes Eyes/Social Staff Worker) - 0(Both) 2. Best Gaze (Lateral Gaze Paresis) - 0(Normal) 3. Visual Field Loss - 0(No visual loss) 4. Facial Palsy - 0(Normal) 5a. Left Arm: Motor (10-second hold) - 3(No effort against gravity) 5b. Right Arm: Motor (10-second hold) - 0(No drift) 6a. Left Leg: Motor (5-second hold - always test supine) - 3(No effort against gravity) 6b. Right Leg: Motor (5-second hold - always test supine) - 0(No drift) 7. Limb Ataxia (finger/nose \T\ heel/gutierrez - test with eyes open) - 1(Present in one limb) 8. Sensory Loss (pinprick arms/legs/face) - 0(Normal) 9. Best Language: Aphasia (description/naming/reading) - 0(No aphasia) 10. Dysarthria (speech clarity - read or repeat words) - 0(Normal) 11. Extinction and Inattention (visual/tactile/auditory/spatial/personal) - 0(No abnormality) Initials: NIH Stroke Scale - NIH Stroke Score Date: 04/05/2020 Time: 21:05 Total Score = 4 1a. Level of Consciousness (LOC) - 0(Alert) 1b. Level of Consciousness (LOC) (Year \T\ Age) - 0(Both) 1c. LOC Commands (Open \T\ Closes Eyes/Social Staff Worker) - 0(Both) 2. Best Gaze (Lateral Gaze Paresis) - 0(Normal) 3. Visual Field Loss - 0(No visual loss) 4. Facial Palsy - 0(Normal) 5a. Left Arm: Motor (10-second hold) - 1(Drift) 5b. Right Arm: Motor (10-second hold) - 0(No drift) 6a. Left Leg: Motor (5-second hold - always test supine) - 1(Drift) 6b. Right Leg: Motor (5-second hold - always test supine) - 0(No drift) 7. Limb Ataxia (finger/nose \T\ heel/gutierrez - test with eyes open) - 2(Present in two limbs) 8. Sensory Loss (pinprick arms/legs/face) - 0(Normal) 9. Best Language: Aphasia (description/naming/reading) - 0(No aphasia) 10. Dysarthria (speech clarity - read or repeat words) - 0(Normal) 11. Extinction and Inattention (visual/tactile/auditory/spatial/personal) - 0(No abnormality) Initials: cp Signatures: Dispatcher [employer] Bobo Cason RN RN Nigel Caba PA PA cp Pisarski, Jacob jp3 Lisa Dominguez RN RN vc Holmes, Maurice, MD MD 7
--- NOTE | 2020-04-06 00:45 | EDPHYS ---
Physician Documentation [facility] Name: Sharla Tesfaye Age: 75 yrs Sex: Female : 1945 Arrival Date: 04/05/2020 Time: 20:44 Bed 16 Private MD: ED Physician Wade Sears HPI: 04/05 20:54 This 75 yrs old Female presents to ER via EMS with complaints of S/S of cp Possible Stroke. 20:55 The patient's problem is reported as weakness, in the left upper extremity, in the left cp lower extremity. 20:55 Onset: The symptoms/episode began/occurred today, approximately 1600. Duration: The cp episode is continuous. 20:55 Context: symptoms became apparent upon awakening from nap at approximately 1600. cp 20:55 Associated signs and symptoms: Pertinent negatives: abdominal pain, blurred vision, cp chest pain, diaphoresis, dizziness, headache, numbness, palpitations. Patient's baseline: Neuro: alert and fully oriented, Motor: no deficits, Ambulation: walks without assistance, Speech: normal. Patient reports noticing weakness in legs while walking dog after after awakening from nap. Patient reports left arm felt weak also and she felt like she was going to fall to ground. Historical: - Allergies: 21:54 Amoxicillin; sg 21:54 annaprox; sg 21:54 Codeine; sg 21:54 Demerol; sg 21:54 Etodolac; sg 21:54 Ibuprofen; sg - PMHx: 21:54 Atrial Fib; High Cholesterol; Hypertension; sg - PSHx: 21:54 Gastric Bypass; Knee surgery; Cholecystectomy; Appendectomy; Hysterectomy; sg Tonsillectomy; - Immunization history:: Adult Immunizations not up to date. - Social history:: Smoking status: Patient denies any tobacco usage or history of. ROS: 20:58 Eyes: Negative for injury, pain, redness, and discharge. cp 20:58 Constitutional: Negative for body aches, chills, fever, poor PO intake. 20:58 Cardiovascular: Negative for chest pain, edema, palpitations. 20:58 Respiratory: Negative for cough, shortness of breath, wheezing. 20:58 Abdomen/GI: Negative for abdominal pain, nausea, vomiting, and diarrhea. 20:58 Skin: Negative for cellulitis, rash. 20:58 Neuro: Positive for weakness, of the left arm and left leg, Negative for altered mental status, headache, loss of consciousness, speech changes, syncope. 20:58 All other systems are negative. Exam: 21:08 Constitutional: The patient appears in no acute distress, alert, awake, cp non-diaphoretic, non-toxic, well developed, well nourished. 21:08 Head/Face: Normocephalic, atraumatic. cp 21:08 Eyes: Periorbital structures: appear normal, Pupils: equal, round, and reactive to light and accomodation, Extraocular movements: intact throughout, Conjunctiva: normal, no exudate, no injection, Sclera: no appreciated abnormality, Lids and lashes: appear normal, bilaterally. 21:08 ENT: External ear(s): are unremarkable, Nose: is normal, Mouth: Lips: moist, Oral mucosa: moist, Posterior pharynx: Airway: no evidence of obstruction, patent. 21:08 Neck: ROM/movement: is normal, is supple, without pain, no range of motions limitations, no nuchal rigidity. 21:08 Chest/axilla: Inspection: normal, Palpation: is normal, no crepitus, no tenderness. 21:08 Cardiovascular: Rate: normal, Rhythm: regular, Edema: is not appreciated, JVD: is not appreciated. 21:08 Respiratory: the patient does not display signs of respiratory distress, Respirations: normal, no use of accessory muscles, no retractions, labored breathing, is not present, Breath sounds: are clear throughout, no decreased breath sounds, no stridor, no wheezing. 21:08 Abdomen/GI: Inspection: abdomen appears normal, Bowel sounds: active, all quadrants, Palpation: abdomen is soft and non-tender, in all quadrants. 21:08 Back: pain, is absent, ROM is normal. 21:08 Skin: no rash present. 21:08 Neuro: Orientation: to person, place \T\ time. Mentation: is normal, Cerebellar function: Romberg testing is abnormal, drift noted left arm, dysmetria is noted on the left, the patient is unable to track left heel to right gutierrez, Motor: moves all fours, strength is 5/5 in the right arm and right leg, strength is 4/5 in the left arm and left leg, Sensation: no obvious gross deficits. 21:12 Radiologist reports: no acute findings 21:50 ECG was reviewed by the Attending Physician. Vital Signs: 21:00 Weight 68.04 kg (R); sg 21:54 BP 148 / 89; Pulse 78; Resp 18; Temp 97.7; Pulse Ox 100% on R/A; sg 22:00 BP 141 / 109; Pulse 65; Resp 18; Pulse Ox 100% on R/A; vc 23:00 BP 139 / 119; Pulse 62; Resp 18; Pulse Ox 100% on R/A; vc 23:00 BP 141 / 109; Pulse 67; Resp 18; Pulse Ox 99% on R/A; vc 04/06 00:00 BP 102 / 80; Pulse 85; Resp 18; Pulse Ox 99% on R/A; vc 01:00 BP 124 / 62; Pulse 73; Resp 17; Temp 97.9; Pulse Ox 100% on R/A; vc NIH Stroke Scale Scores: 04/05 21:00 NIHSS Score: 7 vc 21:05 NIHSS Score: 4 cp MDM: 20:54 Patient medically screened. 21:00 Differential diagnosis: CVA, TIA, metabolic disorder, drug effects, acute CO. 22:00 Data reviewed: vital signs, nurses notes, lab test result(s), EKG, radiologic studies, CT scan, plain films, I have discussed the patient's presentation/case with the attending Emergency Department Physician; and as a result, I will transfer patient. 23:13 Physician consultation: Ray Munoz MD was contacted at 23:00, regarding consult, patient's condition, recommends transfer for stroke symptoms. 04/06 00:40 Physician consultation: was contacted at 00:40, regarding regarding transfer, to [facility]. patient's condition, accepting physician will be DR Marie. 04/05 20:53 Order name: CPK; Complete Time: 21:58 04/05 20:53 Order name: Magnesium; Complete Time: 21:58 04/05 20:53 Order name: Troponin (emerg Dept Use Only); Complete Time: 21:58 04/06 00:18 Interpretation: Abnormal: TROPED 5.14. 04/05 20:53 Order name: Basic Metabolic Panel; Complete Time: 21:58 04/05 23:59 Interpretation: Normal except: K 3.0; GFR 87; CA 8.4. cp 04/05 20:53 Order name: CBC with Diff; Complete Time: 21:58 cp 04/05 20:53 Order name: Protime (+inr); Complete Time: 21:58 cp 04/05 20:53 Order name: Ptt, Activated; Complete Time: 21:58 cp 04/05 20:53 Order name: CT Stroke Brain w/o Contrast; Complete Time: 21:58 cp 04/05 20:53 Order name: Stroke CXR 1 View cp 04/05 20:59 Order name: Glucose, Ancillary Testing; Complete Time: 21:58 EDMS 04/05 21:59 Order name: CT Head Angio cp 04/05 22:03 Order name: CT Neck Angio cp 04/05 20:53 Order name: EKG; Complete Time: 20:55 cp 04/05 20:53 Order name: Accucheck; Complete Time: 21:05 cp 04/05 20:53 Order name: Cardiac monitoring; Complete Time: 22:03 cp 04/05 20:53 Order name: EKG - Nurse/Tech; Complete Time: 22:03 cp 04/05 20:53 Order name: IV Saline Lock; Complete Time: 21:04 cp 04/05 20:53 Order name: Labs collected and sent; Complete Time: 21:04 cp 04/05 20:53 Order name: NPO; Complete Time: 21:04 cp 04/05 20:53 Order name: O2 Per Protocol; Complete Time: 21:04 cp 04/05 20:53 Order name: O2 Sat Monitoring; Complete Time: 21:04 cp 04/05 20:53 Order name: Stroke Swallow Screen; Complete Time: 22:04 cp EC/18 21:50 Rate is 60 beats/min. Rhythm is regular. QRS interval is normal. QT interval is cp prolonged at 546 msec. T waves are Inverted in leads V3, V4, V5. T waves are Flattened in leads aVF, V6. Interpreted by me. Reviewed by me. Administered Medications: 21:30 Drug: Aspirin Chewable Tablet 324 mg Route: PO; vc 22:26 Follow up: Response: No adverse reaction vc 22:04 Drug: foLIC Acid 1 mg Route: IVPB; Site: right antecubital; vc 22:26 Drug: NS 0.9% 500 ml Route: IV; Rate: 500 ml/hr; Site: right antecubital; vc 23:33 CANCELLED (Other Intervention Used): Potassium Chloride 20 mEq IV at calculated rate vc once; administer over 1-2 hours 23:40 Drug: Potassium Effervescent Tablet 50 mEq Route: PO; vc 04/06 01:41 Drug: PlaVIX 300 mg Route: PO; vc Point of Care Testing: Blood Glucose: 04/05 21:00 Blood Glucose: 93 mg/dL; vc Ranges: Critical Glucose Levels:Adult <50 mg/dl or >400 mg/dl <40 mg/dl or >180 mg/dl Disposition: 04/06 06:15 Co-signature as Attending Physician, Wade Sears MD. [email or web address] Disposition: 04/06/20 00:45 Transfer ordered to [facility]. Diagnosis are Weakness - left arm and left leg, Elevated Troponin. - Reason for transfer: Higher level of care. - Accepting physician is DR Marie. - Condition is Stable. - Problem is new. - Symptoms have improved. NIH Stroke Scale - NIH Stroke Score Date: 04/05/2020 Time: 21:00 Total Score = 7 1a. Level of Consciousness (LOC) - 0(Alert) 1b. Level of Consciousness (LOC) (Year \T\ Age) - 0(Both) 1c. LOC Commands (Open \T\ Closes Eyes/Racing Board Marker) - 0(Both) 2. Best Gaze (Lateral Gaze Paresis) - 0(Normal) 3. Visual Field Loss - 0(No visual loss) 4. Facial Palsy - 0(Normal) 5a. Left Arm: Motor (10-second hold) - 3(No effort against gravity) 5b. Right Arm: Motor (10-second hold) - 0(No drift) 6a. Left Leg: Motor (5-second hold - always test supine) - 3(No effort against gravity) 6b. Right Leg: Motor (5-second hold - always test supine) - 0(No drift) 7. Limb Ataxia (finger/nose \T\ heel/gutierrez - test with eyes open) - 1(Present in one limb) 8. Sensory Loss (pinprick arms/legs/face) - 0(Normal) 9. Best Language: Aphasia (description/naming/reading) - 0(No aphasia) 10. Dysarthria (speech clarity - read or repeat words) - 0(Normal) 11. Extinction and Inattention (visual/tactile/auditory/spatial/personal) - 0(No abnormality) Initials: NIH Stroke Scale - NIH Stroke Score Date: 04/05/2020 Time: 21:05 Total Score = 4 1a. Level of Consciousness (LOC) - 0(Alert) 1b. Level of Consciousness (LOC) (Year \T\ Age) - 0(Both) 1c. LOC Commands (Open \T\ Closes Eyes/Racing Board Marker) - 0(Both) 2. Best Gaze (Lateral Gaze Paresis) - 0(Normal) 3. Visual Field Loss - 0(No visual loss) 4. Facial Palsy - 0(Normal) 5a. Left Arm: Motor (10-second hold) - 1(Drift) 5b. Right Arm: Motor (10-second hold) - 0(No drift) 6a. Left Leg: Motor (5-second hold - always test supine) - 1(Drift) 6b. Right Leg: Motor (5-second hold - always test supine) - 0(No drift) 7. Limb Ataxia (finger/nose \T\ heel/gutierrez - test with eyes open) - 2(Present in two limbs) 8. Sensory Loss (pinprick arms/legs/face) - 0(Normal) 9. Best Language: Aphasia (description/naming/reading) - 0(No aphasia) 10. Dysarthria (speech clarity - read or repeat words) - 0(Normal) 11. Extinction and Inattention (visual/tactile/auditory/spatial/personal) - 0(No abnormality) Initials: cp Signatures: Dispatcher [employer] EDMS Bobo Sawant RN RN sg Page, Corey, PA PA cp Calcote, Vanessa, RN RN vc Holmes, Maurice, MD MD [email or web address] Corrections: (The following items were deleted from the chart) 04/05 22:45 21:58 Neuro: Positive for weakness, of the left arm and left leg, Negative for cp altered mental status, headache, loss of consciousness, speech changes, syncope, cp 22:45 21:58 Cardiovascular: Negative for chest pain, edema, palpitations, cp cp 22:45 21:58 Constitutional: Negative for body aches, chills, fever, poor PO intake, cpcp 22:45 21:58 Eyes: Negative for injury, pain, redness, and discharge, cp cp 22:45 21:58 Respiratory: Negative for cough, shortness of breath, wheezing, cp cp 22:45 21:58 Abdomen/GI: Negative for abdominal pain, nausea, vomiting, and diarrhea, cp cp 22:45 21:58 Skin: Negative for cellulitis, rash, cp cp 22:45 21:58 All other systems are negative, cp cp 23:33 22:35 Potassium Chloride 20 mEq IV at calculated rate once; administer over 1-2 vc hours ordered. cp 04/06 00:00 04/05 23:59 Normal except: K 3.0; GFR 87. cp cp 04/06 01:58 00:45 04/06/2020 00:45 Transfer ordered to [facility]. Diagnosis vc is Weakness - left arm and left leg; Elevated Troponin. Reason for transfer: Higher level of care. Accepting physician is DR Marie. Condition is Stable. Problem is new. Symptoms have improved. cp
[2020-04-06] MEDS ORDERED: CLOPIDOGREL 75 MG TABLET ONE (01:47)
[2020-04-06 02:09] VITALS: BP 124/62; TEMP 97.9; O2SAT 100
--- NOTE | 2020-04-06 12:24 | RAD REPORT ---
EXAM DESCRIPTION: RAD - Chest Single View - 04/05/2020 9:06 pm CLINICAL HISTORY: weakness left arm and leg Chest pain. COMPARISON: Chest Single View dated 02/19/2020; Chest Single View dated 02/18/2020; Chest Single View da anastasia 06/25/2018; CHEST PA AND LAT 2 VIEW dated 01/07/2015 FINDINGS: Portable technique limits examination quality. The lungs are grossly clear. The heart is upper limit of normal in size. No displaced fractures.Posts urgical changes of previous right rotator cuff tear. IMPRESSION: No acute intrathoracic process suspected.
--- NOTE | 2020-04-07 09:46 | RAD REPORT ---
EXAM DESCRIPTION: Neck Angio CLINICAL HISTORY: 75 years Female left arm and left leg weakness COMPARISON: None TECHNIQUE: Images were obtained in axial, sagittal, and coronal planes. Intravenous contrast was adm inistered. This exam was performed according to our departmental dose-optimization program which includes use of Automated Exposure Control, adjustment of the mA and/or kV according to patient size and/or use o f iterative reconstruction technique. FINDINGS: Patent right common, internal, and external carotid arteries. No calcified or noncalcified plaque on right. Patent right vertebral artery. No hemodynamically significant or greater than 50% n arrowing involving the right carotid artery. No evidence for dissection. Patent left common, internal, and external carotid arteries. Mild calcified plaque bifurcation and pr oximal left internal carotid artery. Tortuosity proximal left internal carotid artery. No hemodynamic ally significant or greater than 50% narrowing involving the left carotid artery. Patent left vertebr al artery. Calcification proximal left carotid artery at level of aortic arch. No significant narrowi ng. Patent subclavian arteries bilaterally. Patent great vessels at their origins from the aortic arch. No acute osseous abnormality. Moderate multilevel osteoarthritic change C5-T2. Prevertebral soft tiss ues appear normal. Chronic changes lung apices bilaterally. IMPRESSION: No hemodynamically significant narrowing involving the carotid arteries bilaterally. Mild calcified plaque bifurcation and proximal left internal carotid artery. Electronically signed by: Waleska Ramos MD 04/05/2020 11:23 PM CDT Due to temporary technical issues with the PACS/Fluency reporting system, reports are being signed by the in house radiologist without review as a courtesy to ensure prompt reporting. The interpreting r adiologist is fully responsible for the content of the report.
--- NOTE | 2020-04-07 09:48 | RAD REPORT ---
EXAM DESCRIPTION: CTA head with contrast Head angio CLINICAL HISTORY: Left-sided weakness COMPARISON: CT head without contrast 04/05/2020 at 8:58 PM TECHNIQUE: Head CTA axial images acquired with IV contrast. Coronal and sagittal CTA MIPs and MPRs c reated. Exam performed according to departmental dose-optimization program which includes automated e xposure control, adjustment of mA and/or kV according to patient size, and/or use of iterative recons truction technique. FINDINGS: Small calcified atherosclerotic plaque of intracranial left vertebral artery causing mild stenosis (about 10% diameter stenosis). Unremarkable intracranial right vertebral, right posterior cerebral, and basilar arteries. Persistent origin of left posterior cerebral artery and atretic left P1 segment (normal variant ). Right and left internal carotid arteries' cavernous segments shows minimal calcified atherosclerotic plaques causing no significant stenosis (less than 10% diameter stenosis). Unremarkable bilateral middle and anterior cerebral arteries. No evidence of aneurysm, AVM, or large intracranial arterial occlusion. IMPRESSION: 1. No evidence of aneurysm, AVM, or large intracranial arterial occlusion. 2. Minimal calcified atherosclerotic plaques described above. If there remains strong clinical suspicion of acute ischemic infarct, then MR brain/head recommended (if there are no contraindications). Electronically signed by: Cameron Martinez MD 04/05/2020 11:33 PM CDT Due to temporary technical issues with the PACS/Fluency reporting system, reports are being signed by the in house radiologist without review as a courtesy to ensure prompt reporting. The interpreting r adiologist is fully responsible for the content of the report.
== END 2020-04-06 01:58 | disposition short-term general hospital (02) ==
LOC: ER 20:43
DX: R79.89 Other specified abnormal findings of blood chemistry (principal); I10 Essential (primary) hypertension; I48.91 Unspecified atrial fibrillation; Z79.01 Long term (current) use of anticoagulants; Z88.1 Allergy status to other antibiotic agents; Z88.6 Allergy status to analgesic agent; Z88.5 Allergy status to narcotic agent
CPT/HCPCS: 93005 ×2; 85025; 80048; 36415; 83735; 82550; 85610; 82947; 85730; 84484; 70496; 70498; 70450; 71045; 96374; 99285; Q9967; J7040

== ENCOUNTER 2020-04-09 10:00 | Inpatient (IN) | payer OTHER ==
--- NOTE | 2020-04-11 13:42 | R.PREADM ---
SCREENING DATE AND TIME 04/08/2020 10:52 (CDT) ANTICIPATED REHAB ADMISSION DATE 04/10/[address] [facility] REFERRAL DATE AND TIME 04/08/2020 10:52 (CDT) REFERRAL OFFICE PHONE [phone] REFERRAL ROOM# [id number] ACUTE ADMIT DATE 04/06/2020 Previous Rehabilitation(s): No. ATTENDING PHYSICIAN COLEEN REES MD REFERRING PHYSICIAN TROY HORNE MD PRIMARY CARE PHYSICIAN ABDOULAYE FRANCOIS MD REHAB FACILITY [facility] CLINICAL LIAISON Charissa Campo PHYSICIAN REVIEWER Dr. Luke Major M.D. MR# [id number] NAME SHARLA BAUMANN ADDRESS [address] [place] [address] PHONE [facility] [id number] DATE OF 1945 AGE 75 SSN# [id number] GENDER female MARITAL STATUS RACE white ADMIT FROM 02 - [facility] PRE-HOSPITAL LIVING SETTING 01 - Home (private home/apt. board/care, assisted living, longterm, transitional living) HOME TYPE AND DETAILS Type of home: single family house # of levels in the residence: 1 # of steps within the residence: 1 # of steps to enter the residence: 1 PRE-HOSPITAL LIVING WITH Alone FAMILY SUPPORT No PRIMARY FAMILY CONTACT NAME ULISSES CHAUDHARY PRIMARY FAMILY CONTACT PHONE PRIMARY FAMILY CONTACT RELATIONSHIP Daughter PHONE PRIMARY FAMILY CONTACT ON ADM.? no IS PRIMARY FAMILY CONTACT AUTH. REP.? no 1ST EMERGENCY CONTACT ULISSES CHAUDHARY 1ST CONTACT PHONE 1ST CONTACT RELATIONSHIP Daughter PHONE 1ST CONTACT ON ADM. no IS 1ST CONTACT AUTH. REP.? no PHONE 2ND CONTACT ON ADM.? no PATIENT EMPLOYMENT STATUS Retired (for age) PATIENT EMPLOYER No Employer PAYOR INFORMATION: 1ST PAYOR NAME [employer] 1ST PAYOR PHONE 1ST PAYOR INJURY/ILLNESS DUE TO ACCIDENT? No ANOTHER GREEN PARTY RESPONSIBLE? No PRIMARY REHAB/ACUTE DIAGNOSIS: ACUTE CVA ONSET DATE 04/06/2020 REHAB IMPAIRMENT CATEGORY (KATHIE): 01 Stroke (STR) MEETS 60% rule AFFECTED EXTREMITIES: LLE and LUE PRIMARY DIAGNOSIS-RELATED SURGERIES: WATCHMAN PLACEMENT SUMMARY OF ACUTE HOSPITALIZATION: Pt. is a 75 yo Right-handed white female. On 04/06/[address] [facility] with sudden onset of left-side weakness. On 04/06/2020 she was admitted to [facility] with diagnosis ACUTE CVA. Her impairment category is Stroke 01 - Left Body (Right Brain) (01.1). Pre-morbidly, Pt. was independent/mod-I in Safety Awareness, Sphincter Control, Transfers Control, Se lf-Care, and Communication; and she had good Endurance and Balance. Currently, she has deficits of Locomotion, Self-Care, Transfers Control, Endurance, Balance, and Safe ty Awareness. Pt. is now referred to [facility] for acute in-patient rehabilitation in order to maximize patient's functional independence in activities of daily living, strength, ROM, and mobi lity. Patient has realistic goal of being discharged at assistance level 6-Candy to reside at Home with Pt self. Sharla Baumann is a 75 year old women who lives at home independently. She has a past medical history of a fib, hypertension, hyperlipidemia, CVA with no deficit, recently taken off Xarelto 3 days ago, presents with chief complaint of left are weakness, bilateral lower extremity weakness. The patient reports she was walking in her home when she suddenly felt weak in bilateral legs, fell but her son caught her. She felt clumsy with her left hand, unable to scrap picker or grasp objects. She denies facial droop. Slurred speech, or numbness. She presented to outside hospital where CT and CTA were performed, no large infarct observed. She is now being transferred to [facility] Inpatient rehabilitation and is medically stable with relatively stable labs. He is now medically stable but in need of 24 hour nursing, doctor supervision and oversight while receiving active and ongoing participate in 3 hours of therapy a day/15 hours per week and receive care with intensive interdisciplinary approach. COVID-19 screening performed; spoke with patient via phone. Patient denies new onset of fever, cough, difficulty breathing, sore throat, body aches and non-allergy nasal congestion in the past 24 hours. Patient denies travel outside of [place] in the past 14 days. Patient denies any contact with someone who has a confirmed diagnosis of or is under investigation for COVID-19 in the past 14 days. Patient has been tested negative for COVID- 19. PAST MEDICAL HISTORY ATRIAL FIBRILLATION HYPERTENSION HYPERLIPIDEMIA CVA PAST SURGICAL HISTORY: GASTRIC BYPASS KNEE SURGERY CHOLECYSTECTOMY APPENDECTOMY HYSTERECTOMY TONSILLECTOMY MEDICATION ALLERGIES: AMOXICILLIN CODEINE PHOSPHATE-GUAIFENESIN DEMEROL MORPHINE ENVIRONMENTAL ALLERGIES: - Substance Allergies None Known - Other Allergies None Known CODE STATUS: Full code WEIGHT/HEIGHT/BMI: WEIGHT 163 lbs HEIGHT 5' 1" BMI 30.8 DIET: - Diet Type Regular - Diet - Solid Texture Regular - Diet - Liquid Texture Regular - Tube Feed N/A [id number]].pdf REVIEW OF SYSTEMS: - Gen Alert and awake Lying in bed No apparent distress Oriented to: person, time, and place - Vital Signs Temperature: 98.7 F SBP/DBP: 153/80 Pulse: 82 Resp: 18 Vital signs stable, afebrile - CVS RRR VITAL SIGNS Temperature: 98.7 F SBP/DBP: 153/80 Pulse: 82 Resp: 18 Vital signs stable, afebrile MEDICATIONS/TREATMENT: Other- See attached MAR (Medication Administration Record). CURRENT SPHINCTER CONTROL: Pre-hospital bladder status: continent # of bladder accidents in the last 7 days prior to screenin Pre-hospital bowel status: continent # of bowel accidents in the last 7 days prior to screenin Last Bowel Movement Date: 04/08/2020 CURRENT LOCOMOTION STATUS: distance walked 250-300 feet with rolling walker DETAILED CURRENT FUNCTIONAL STATUS: - Bladder accident frequency: Ind - No accidents in the past 7 days - Bowel accident frequency: Ind - No accidents in the past 7 days - Walking score based on distance walked: 0(N/A) - Wheelchair score based on distance traveled: 0(N/A) QI SCORES: - Self-Care A. Eating 04-Supervision or touching assistance B. Oral hygiene 04-Supervision or touching assistance C. Toileting hygiene 03-Partial/moderate assistance E. Shower/bathe self 03-Partial/moderate assistance F. Upper body dressing 03-Partial/moderate assistance G. Lower body dressing 02-Substantial/maximal assistance H. Putting on/taking off footwear 88-Not attempted due to medical condition or safety concerns - Mobility A. Roll left and right 03-Partial/moderate assistance B. Sit to lying 03-Partial/moderate assistance C. Lying to sitting on side of bed 03-Partial/moderate assistance D. Sit to stand 03-Partial/moderate assistance E. Chair/[id number]-[id number] transfer 03-Partial/moderate assistance F. Toilet transfer 03-Partial/moderate assistance G. Car transfer 88-Not attempted due to medical condition or safety concerns I. Walk 10 feet 02-Substantial/maximal assistance J. Walk 50 feet with two turns 88-Not attempted due to medical condition or safety concerns K. Walk 150 feet 88-Not attempted due to medical condition or safety concerns L. Walking 10 feet on uneven surfaces 88-Not attempted due to medical condition or safety concerns M. 1 step (curb) 88-Not attempted due to medical condition or safety concerns N. 4 steps 88-Not attempted due to medical condition or safety concerns O. 12 steps 88-Not attempted due to medical condition or safety concerns P. Picking up object 03-Partial/moderate assistance R. Wheel 50 feet with two turns 88-Not attempted due to medical condition or safety concerns S. Wheel 150 feet 88-Not attempted due to medical condition or safety concerns - Bladder and Bowel Bladder continence 0-Always continent Bowel continence 0-Always continent - Endurance Fair - Balance Fair - Safety Awareness Fair CURRENT FUNC. DEFICITS: Self-Care, Mobility, Endurance, Balance, and Safety Awareness CURRENT / PREVIOUS ASSISTIVE DEVICES: 3-in-1 Commode Rolling Walker Shower Chair HISTORY OF FALLS. HAS THE PATIENT HAD TWO OR MORE FALLS IN THE PAST YEAR OR ANY FALL WITH INJURY IN T HE PAST YEAR?: No PRIOR SURGERY. DID THE PATIENT HAVE MAJOR SURGERY DURING THE 100 DAYS PRIOR TO ADMISSION?: No THERAPY NOTES FROM ACUTE CARE: Attached. SPECIAL NEEDS: - Safety Concerns Skin breakdown precautions needed due to skin breakdown risk PRECAUTIONS: - Weight Bearing Precaution WBAT left LE PATIENT NEEDS ACTIVE AND ONGOING THERAPEUTIC INTERVENTION OF MULTIPLE THERAPY DISCIPLINES, INCLUDING: - Occupational Therapy Cognitive Retraining. Visual Perceptual Training. - Dietary and Nutrition Adequate Nutrition. Nutritional Education. Nutritional Supplements. - Speech Therapy Cognitive Training. Expressive Language Skills. Memory Strategies. Receptive Language Skills. Speech Intelligibility Training. PATIENT NEEDS CLOSE MEDICAL SUPERVISION BY A REHABILITATION PHYSICIAN FOR: Coordination of Treatment Team Wound Care PATIENT REQUIRES 24X7 REHAB NURSING FOR MEDICAL AND FUNCTIONAL MGT. OF THE FOLLOWING DEFICITS: Disease Management Medication Management Patient/Family Education Providing Safe Environment Skin Integrity PATIENT REQUIRES INTENSIVE, COORDINATED INTERDISCIPLINARY APPROACH TO REHAB: Arranging Home Equipment/Services Discharge Planning Family Intervention/Training Press Tender Star Signal/Case Management PATIENT REHAB POTENTIAL: Sidra MOSELEY is able and expected to receive 3 hours of individualized therapy daily on at l east 5 of every 7 days Sidra WAREs prognosis for significant practical improvement within a reasonable period of time appears Good Expected level of measurable improvement will be of a practical value to Sidra Ch[place] func tional capacity or adaptations to impairments Has a viable Discharge Plan Medically appropriate; condition is sufficiently stable to participate in intensive rehab program DISCHARGE PLAN: - Estimated Length of Stay (days) 17. - Consensus on plan Discharge plan has been discussed with primary caregiver. Patient/Family is in agreement with the jeremy n. Primary caregiver is not in agreement with the plan. - Patient/Family Goals Return home independently. - Planned Living Setting Upon Discharge Home, to live alone. Transitional Living. Primary caregiver: Pt self. RECOMMENDED CARE LEVEL: IRF RECOMMENDATION DETAILS: Recommended Admission to Comprehensive Rehabilitation Program to Increase Functional [place] SCREENER'S COMPLETENESS CONFIRMATION: - Screening Confirmation The patient data collection on this preadmission screening form is finished PHYSICIANS REVIEW AND ADMISSION DETERMINATION Admit - Based on my review of the Pre-Admission Screening results, in my medical judgment and experie nce, I concur with the findings and recommend admission to [facility], as this patient requires an IRF level of care. SIGNATURE PANEL: Needle Molder - [electronically] signed by Charissa Campo on 04/11/2020 at 13:29 (CDT) Clinical Liaison - [electronically] signed by Farida Macdonald RN on 04/11/2020 at 13:38 (CDT) Physician Reviewer - [electronically] signed by Dr. Luke Major M.D. on 04/11/2020 at 13:40 (CDT )
[2020-04-11] MEDS ORDERED: ATORVASTATIN 80 MG TAB PO SCH (21:00)
[2020-04-11] MEDS ORDERED: METOPROLOL TAR 25 MG TAB PO SCH (21:00)
[2020-04-11] MEDS ORDERED: GABAPENTIN 300 MG CAP PO SCH (21:00)
[2020-04-11] MEDS ORDERED: PARoxetine HCL 10 MG TAB PO SCH (21:00)
[2020-04-11] MEDS: METOPROLOL TAR 25 MG TAB PO SCH (21:54)
[2020-04-12 04:26] LABS: Urine Appearance CLEAR; Urine Bilirubin NEGATIVE (NEG); Urine Blood NEGATIVE (NEG); Urine Color YELLOW; Urine Glucose NEGATIVE (NEG); Urine Protein NEGATIVE (NEG); Urine Specific Gravity <=1.005 (1.005-1.030); Urine Urobilinogen 0.2 mg/dL (0.2-1.0); Urine pH 5.5 (5.0-7.0)
[2020-04-12 04:38] LABS: Urine Bacteria <20 /HPF (<20); Urine RBC <5 /HPF (NONE SEEN)
[2020-04-12 04:39] LABS: Urine Culture Reflex Order NOT NEEDED
[2020-04-12 05:58] LABS: Absolute Lymphocytes (CBC) 1.6 K/uL (0.7-4.9); Basophils % 1.1 % (0-1.3); Hematocrit 34.5 % (36.0-45.0); Lymphocytes % 22.9 % (15.3-44.8); MPV 10.6 fL (7.6-11.3); RBC Red Blood Cell Count 3.82 M/uL (3.86-4.86)
[2020-04-12 06:21] LABS: Albumin 2.8 g/dL (3.4-5.0); BUN Blood Urea Nitrogen 10 mg/dL (7-18); Bicarbonate 32 mmol/L (21-32); Glucose Level 95 mg/dL (74-106); Magnesium 1.8 mg/dL (1.8-2.4); Potassium 4.4 mmol/L (3.5-5.1); Prealbumin 10.4 mg/dL (20-40); Sodium Level 147 mmol/L (136-145)
[2020-04-12] MEDS: METOPROLOL TAR 25 MG TAB PO SCH ×2 (07:57→19:45)
[2020-04-12] MEDS: CYANOCOBALAMIN 1,000 MCG TAB PO SCH (07:58)
[2020-04-12] MEDS ORDERED: GABAPENTIN 300 MG CAP PO SCH (08:00)
[2020-04-12] MEDS ORDERED: VITAMIN D 1000 UNIT TAB PO SCH (08:00)
[2020-04-12] MEDS ORDERED: ASPIRIN 81 MG CHEWABLE TABLET PO SCH (08:00)
[2020-04-12] MEDS ORDERED: FAMOTIDINE 20 MG TAB PO SCH (08:00)
--- NOTE | 2020-04-12 12:54 | P.HP ---
Certification for Inpatient Patient admitted to: Inpatient With expected LOS: >2 Midnights Patient will require the following post-hospital care: Rehabilitation Practitioner: I am a practitioner with admitting privileges, knowledge of patient current condition, hospital course, and medical plan of care. Services: Services provided to patient in accordance with Admission requirements found in Title 42 Section 412.3 of the Code of Federal Regulations Patient History Date of Service: 04/12/20 Reason for admission: L SIDE BODY WEAKNESS. History of Present Illness: [place] IS A CHRONIC A. FIB PATIENT WHO HAS FALLEN A FEW TIMES JUST FROM UNSTEADINESS, HAS HAD HEMATOMAS OF THE LEGS. SHE WANTED TO GET OFF XARELTO, SO SHE WENT TO A [facility] ASKING FOR WATCHMAN PROCEDURE. SHE WAS TAKEN OFF XARELTO AND WOKE UP WITH UNSTEADINESS AND L SIDE WEAKNESS. SHE WAS BROUGHT TO ER HERE, THEN SENT TO [place], SHE DID HAVE WATCHMAN PROCEDURE DONE AND WILL BE ON XARELTO FOR 6 WEEKS BEFORE SHE STOPS IT. SHE IS BACK HERE FOR REHAB. Allergies amoxicillin Allergy (Verified 04/11/20 23:14) diarrhea codeine Allergy (Verified 04/11/20 23:14) "feels having heart attack" ibuprofen Allergy (Verified 04/11/20 23:14) Hives etodolac [From Lodine] Adverse Reaction (Verified 04/11/20 23:14) crushing chest pain when used with annaprox annaprox Adverse Reaction (Uncoded 01/31/18 17:33) crushing chest pain when used with lodine Home Medications: Aspirin Chewable [Aspirin Chewable*] 81 mg PO DAILY 04/11/20 Atorvastatin Calcium [Lipitor] 80 mg PO BEDTIME 04/11/20 Cholecalciferol (Vitamin D3) [Vitamin D3] 1,000 unit PO DAILY 04/11/20 Cyanocobalamin (Vitamin B-12) [Vitamin B12] 4,000 mcg PO DAILY 04/11/20 Famotidine [Pepcid] 20 mg PO DAILY 04/11/20 Gabapentin 300 mg PO BEDTIME 04/11/20 Gabapentin 600 mg PO DAILY 04/11/20 Metoprolol Tartrate 12.5 mg PO Q12H 04/11/20 PARoxetine HCL [Paroxetine HCl] 20 mg PO BEDTIME 04/11/20 Rivaroxaban [Xarelto] 20 mg PO SEECOM 04/11/20 - Past Medical/Surgical History Has patient received pneumonia vaccine in the past: Yes Diabetic: No -: HTN -: hyperlipidemia -: atrial fibrillation -: Gastric bypass -: Knee surgery -: Cholecystectomy -: Appendectomy -: Hysterectomy -: tonsillectomy - Family History Father -: Diabetes - Social History Smoking Status: Never smoker Alcohol use: No CD- Drugs: No Caffeine use: No Place of Residence: Home Review of Systems 10-point ROS is otherwise unremarkable General: Weakness Neurological: Incoordination Physical Examination - Vital Signs Temperature: 96.0 F Blood Pressure: 127/57 Pulse: 61 Respirations: 16 Pulse Ox (%): 98 - Physical Exam General: Alert, In no apparent distress HEENT: Atraumatic, PERRLA, Mucous membr. moist/pink, EOMI, Sclerae nonicteric Neck: Supple, 2+ carotid pulse no bruit, No LAD, Without JVD or thyroid abnormality Respiratory: Clear to auscultation bilaterally, Normal air movement Cardiovascular: Regular rate/rhythm, Normal S1 S2 Gastrointestinal: Normal bowel sounds, No tenderness Musculoskeletal: No tenderness Integumentary: No rashes Neurological: Normal speech, Normal affect, Abnormal strength (L SIDE 4/5 .), Abnormal tone ( L) Lymphatics: No axilla or inguinal lymphadenopathy - Studies Laboratory Data (last 24 hrs) 04/12/20 05:37: WBC 6.9, Hgb 11.6 L, Hct 34.5 L, Plt Count 193 04/12/20 05:37: Sodium 147 H, Potassium 4.4, BUN 10, Creatinine 0.63, Glucose 95, Magnesium 1.8 Assessment and Plan - Problems (Diagnosis) (1) Left hemiparesis Current Visit: Yes Status: Acute Plan: IMPROVED. CONTINUE OT AND PT. A FIB WAS THE CAUSE. ABOVE IN HPI. (2) A-fib Current Visit: No Status: Chronic Plan: HAS NOW WATCHMAN PROCEDURE DONE SO SHE WILL NOT NEED XARELTO AFTER 6 WEEKS. SHE IS HIGH RISK FOR FALL AND COMPLICATION OF XARELTO. Qualifiers: Atrial fibrillation type: longstanding persistent Qualified Code(s): I48.11 - Longstanding persistent atrial fibrillation - Advance Directives Does patient have a Living Will: Yes Does patient have a Durable POA for Healthcare: Yes
[2020-04-12] MEDS ORDERED: RIVAROXABAN 20 MG TABLET PO SCH (13:00)
[2020-04-12] MEDS ORDERED: METOPROLOL TAR 25 MG TAB PO SCH (13:00)
[2020-04-12] MEDS: RIVAROXABAN 10 MG TABLET PO SCH (16:46)
[2020-04-12] MEDS ORDERED: RIVAROXABAN 10 MG TABLET PO SCH (17:00)
[2020-04-12] MEDS: PARoxetine HCL 10 MG TAB PO SCH (19:44)
[2020-04-12] MEDS: ATORVASTATIN 80 MG TAB PO SCH (19:44)
[2020-04-12] MEDS: GABAPENTIN 300 MG CAP PO SCH (19:45)
--- NOTE | 2020-04-12 21:03 | R.HP ---
FACILITY: [facility] ENCOUNTER DATE AND TIME: 04/12/2020 21:00 (CDT) MR#: [id number] NAME SHARLA BAUMANN ADDRESS: [address] [place] [address]: [place] [address] [id number] PHONE: DATE OF : 1945 AGE: 75 SSN# [id number] GENDER: Female DEXTERITY Right-handed MARITAL STATUS RACE White PRE-HOSPITAL LIVING SETTING 01 - Home (private home/apt. board/care, assisted living, fdc, transitional living) PRE-HOSPITAL LIVING WITH Alone ENCOUNTER PHYSICIAN: Dr. Luke Major M.D. REFERRING DOCTOR: TROY HORNE MD DATE OF ADMISSION: 04/11/2020 18:11 (CDT) REFERRING FACILITY [facility] PRIMARY CARE PHYSICIAN ABDOULAYE FRANCOIS MD HOME TYPE AND DETAILS: Type of home: single family house # of levels in the residence: 1 # of steps within the residence: 1 # of steps to enter the residence: 1 ONSET DATE: 04/06/2020 PRIMARY DIAGNOSIS-RELATED SURGERIES: WATCHMAN PLACEMENT HISTORY OF PRESENT ILLNESS (HPI): Pt. is a 75 yo Right-handed white female. On 04/06/2020 Pt. presented to [facility] with sudden onset of left-side weakness. On 04/06/2020 she was admitted to [facility] with diagnosis ACUTE CVA. Her impairment category is Stroke 01 - Left Body (Right Brain) (01.1). Pre-morbidly, Pt. was independent/mod-I in Safety Awareness, Sphincter Control, Transfers Control, Se lf-Care, and Communication; and she had good Endurance and Balance. Currently, she has deficits of Locomotion, Self-Care, Transfers Control, Endurance, Balance, and Safe ty Awareness. Pt. is now referred to [facility] for acute in-patient rehabilitation in order to maximize patient's functional independence in activities of daily living, strength, ROM, and mobi lity. Patient has realistic goal of being discharged at assistance level 6-Candy to reside at Home with Pt self. Sharla Baumann is a 75 year old women who lives at home independently. She has a past medical history of a fib, hypertension, hyperlipidemia, CVA with no deficit, recently taken off Xarelto 3 days ago, presents with chief complaint of left are weakness, bilateral lower extremity weakness. The patient reports she was walking in her home when she suddenly felt weak in bilateral legs, fell but her son caught her. She felt clumsy with her left hand, unable to picker operator or grasp objects. She denies facial droop. Slurred speech, or numbness. She presented to outside hospital where CT and CTA were performed, no large infarct observed. She is now being transferred to [facility] rehabilitation and is medically stable with relatively stable labs. He is now medically stable but in need of 24 hour nursing, doctor supervision and oversight while receiving active and ongoing participate in 3 hours of therapy a day/15 hours per week and receive care with intensive interdisciplinary approach. COVID-19 screening performed; spoke with patient via phone. Patient denies new onset of fever, cough, difficulty breathing, sore throat, body aches and non-allergy nasal congestion in the past 24 hours. Patient denies travel outside of [place] in the past 14 days. Patient denies any contact with someone who has a confirmed diagnosis of or is under investigation for COVID-19 in the past 14 days. Patient has been tested negative for COVID- 19. MEDICATION ALLERGIES: AMOXICILLIN CODEINE PHOSPHATE-GUAIFENESIN DEMEROL MORPHINE ENVIRONMENTAL ALLERGIES: - Substance Allergies None Known - Other Allergies None Known PAST MEDICAL HISTORY: ATRIAL FIBRILLATION HYPERTENSION HYPERLIPIDEMIA CVA PAST SURGICAL HISTORY: GASTRIC BYPASS KNEE SURGERY CHOLECYSTECTOMY APPENDECTOMY HYSTERECTOMY TONSILLECTOMY SOCIAL HISTORY: - Home Living Alone REVIEW OF SYSTEMS: - Gen No Chills Fatigue No Fever - Eyes No Double Vision No itchiness - ENMT No Difficulty Swallowing - CVS No Chest Discomfort No Chest Pain No Fatigue No Weight Gain - Resp No Cough No Shortness of Breath - GI Continent No Abdominal Pain No Constipation No Diarrhea - Continent No Kidney Pain No Painful Urination No Urinary Urgency - MSK No Joint Pain No Muscle Cramps Stiffness - Skin No Itching No Rash No Suspicious Lesions - Neuro Coordination Difficulty No Difficulty with Concentration No Memory Loss No Seizures Weakness - Psych No Anxiety No Depression No HIV Exposure No Persistent Infections No Seasonal Allergies - Endo No Cold/Heat Intolerance No Excessive Hunger No Excessive Thirst No Excessive Urination PHYSICAL EXAM - Gen Alert and awake Lying in bed No apparent distress Oriented to: person, time, and place - Skin No breakdowns Normacephalic - Eyes No abnormalities - ENMT No abnormalities - Neck No abnormalities - CVS RRR - Chest No abnormalities - Resp Clear to auscultation - Abd Soft - GI nondistended Deferred - No abnormalities - Ext No significant edema - MSK No Muscle Weakness - Neuro No focal deficits - Psych No abnormalities VITAL SIGNS Temperature: 98.7 F SBP/DBP: 153/80 Pulse: 82 Resp: 18 NURSING: - Shower allowing shower - Bladder care per protocol - Skin care per protocol PRECAUTIONS: - Weight Bearing Precaution WBAT left LE ACTIVITIES OOB only with supervision QI SCORES: - Self-Care A. Eating 04-Supervision or touching assistance B. Oral hygiene 04-Supervision or touching assistance C. Toileting hygiene 03-Partial/moderate assistance E. Shower/bathe self 03-Partial/moderate assistance F. Upper body dressing 03-Partial/moderate assistance G. Lower body dressing 02-Substantial/maximal assistance H. Putting on/taking off footwear 88-Not attempted due to medical condition or safety concerns - Mobility A. Roll left and right 03-Partial/moderate assistance B. Sit to lying 03-Partial/moderate assistance C. Lying to sitting on side of bed 03-Partial/moderate assistance D. Sit to stand 03-Partial/moderate assistance E. Chair/tkq-fk-ahslr transfer 03-Partial/moderate assistance F. Toilet transfer 03-Partial/moderate assistance G. Car transfer 88-Not attempted due to medical condition or safety concerns I. Walk 10 feet 02-Substantial/maximal assistance J. Walk 50 feet with two turns 88-Not attempted due to medical condition or safety concerns K. Walk 150 feet 88-Not attempted due to medical condition or safety concerns L. Walking 10 feet on uneven surfaces 88-Not attempted due to medical condition or safety concerns M. 1 step (curb) 88-Not attempted due to medical condition or safety concerns N. 4 steps 88-Not attempted due to medical condition or safety concerns O. 12 steps 88-Not attempted due to medical condition or safety concerns P. Picking up object 03-Partial/moderate assistance R. Wheel 50 feet with two turns 88-Not attempted due to medical condition or safety concerns S. Wheel 150 feet 88-Not attempted due to medical condition or safety concerns - Bladder and Bowel Bladder continence 0-Always continent Bowel continence 0-Always continent - Endurance Fair - Balance Fair - Safety Awareness Fair CURRENT FUNC. DEFICITS: Self-Care, Mobility, Endurance, Balance, and Safety Awareness MEDICATIONS: - Other See attached MAR (Medication Administration Record) ASSESSMENT: Pt. is a 75 yo Right-handed white female.On 04/06/2020 Pt. presented to [facility] with sudden onset of left-side weakness.On 04/06/2020 she was admitted to [facility] with diagnosis ACUTE C VA.Her impairment category is Stroke 01 - Left Body (Right Brain) (01.1).Pre-morbidly, Pt. was indep endent/mod-I in Safety Awareness, Sphincter Control, Transfers Control, Self-Care, and Communication; and she had good Endurance and Balance.Currently, she has deficits of Locomotion, Self-Care, Transfe rs Control, Endurance, Balance, and Safety Awareness.Pt. is now referred to [facility] for acute in-patient rehabilitation in order to maximize patient's functional independence i n activities of daily living, strength, ROM, and mobility.- Rehab Goal Patient has realistic goal of being discharged at assistance level 6-Candy to reside at Home with Pt selfCt Baumann is a 75 year old women who lives at home independently. She has a past medical history of a fib, hypertension, hyperlipidemia, CVA with no deficit, recently taken off Xarelto 3 days ago, presents with chief complaint of left are weakness, bilateral lower extremity weakness. The patient reports she was walking in her home when she suddenly felt weak in bilateral legs, fell but her son caught her. She felt clumsy with her left hand, unable to picker operator or grasp objects. She denies facial droop. Slurred speech, or numbness. She presented to outside hospital where CT and CTA were performed, no large infarct observed. She is now being transferred to [facility] rehabilitation and is medically stable with relatively stable labs. He is now medically stable but in need of 24 hour nursing, doctor supervision and oversight while receiving active and ongoing participate in 3 hours of therapy a day/15 hours per week and receive care with intensive interdisciplinary approach. COVID-19 screening performed; spoke with patient via phone. Patient denies new onset of fever, cough, difficulty breathing, sore throat, body aches and non-allergy nasal congestion in the past 24 hours. Patient denies travel outside of [place] in the past 14 days. Patient denies any contact with someone who has a confirmed diagnosis of or is under investigation for COVID-19 in the past 14 days. Patient has been tested negative for COVID- 19.REHAB PLAN: for Dementia, TBI, Stroke, or others - Physical Therapy Gait dysfunction - to improve, our physical therapists will perform initial evaluation of pt's status upon admission and devise an individualized program for Gait Training, and Wheel Chair mobility Inability to transfer - to improve, our physical therapists will perform initial evaluation of pt's s tatus upon admission and devise an individualized program for Bed mobility Need for home safety evaluation - to improve, our physical therapists will perform initial evaluation of pt's status upon admission and devise an individualized program for Home Evaluation Need in caregiver upon discharge - to improve, our physical therapists will perform initial evaluatio n of pt's status upon admission and devise an individualized program for Caregiver Training New precaution - to improve, our physical therapists will perform initial evaluation of pt's status u riki admission and devise an individualized program for Patient precaution education Edema - to improve, our physical therapists will perform initial evaluation of pt's status upon admi ssion and devise an individualized program for Elevation Training, and Lymphedema Therapy Poor balance - to improve, our physical therapists will perform initial evaluation of pt's status upo n admission and devise an individualized program for Balance Training Poor endurance - to improve, our physical therapists will perform initial evaluation of pt's status u riki admission and devise an individualized program for Endurance Training Weakness - to improve, our physical therapists will perform initial evaluation of pt's status upon ad mission and devise an individualized program for Aquatic Therapy, Neuromuscular Reeducation, and Stre ngthening Achieving independence - to improve, our physical therapists will perform initial evaluation of pt's status upon admission and devise an individualized program for Community Reintegration Activities - Occupational Therapy ADL deficits - to improve, our occupation therapists will perform initial evaluation of pt's status u riki admission and devise an individualized program for Bathing, Bed mobility, Community Reintegration , Cooking, Dressing, Eating, Fine Motor Skills, Grooming, Homemaking, Kitchen Mobility, Laundry, Angie ent Education, Safety Awareness, Splinting - Positioning, Transfers(Toilet, Tub, Shower), and Wheel C hair Management Need for pet care worker - to improve, our occupation therapists will perform initial evaluation of pt's s tatus upon admission and devise an individualized program for Caregiver Training Weakness - to improve, our occupation therapists will perform initial evaluation of pt's status upon admission and devise an individualized program for Aquatic Therapy, Balance, Endurance, UE ROM, and U E strengthening MEDICAL PLAN: - Diet Type Start Regular - Diet - Liquid Texture Start Regular - Tube Feed Start N/A - Bladder care per protocol - Weight Bearing Precaution WBAT left LE - Skin care per protocol - Other See attached MAR (Medication Administration Record) - Diet - Solid Texture Regular - Shower shower DISCHARGE PLAN: - Estimated Length of Stay (days) 17. - Consensus on plan Discharge plan has been discussed with primary caregiver. Patient/Family is in agreement with the jeremy n. Primary caregiver is not in agreement with the plan. - Patient/Family Goals Return home independently. - Planned Living Setting Upon Discharge Home, to live alone. Transitional Living. Primary caregiver: Pt self. SIGNATURE PANEL: (CDT)
--- NOTE | 2020-04-12 21:04 | PAPE ---
PATIENT: [facility] MR# [id number] REFERRING DOCTOR TROY HORNE MD PRIMARY CARE PHYSICIAN ABDOULAYE FRANCOIS MD EVALUATION DATE AND TIME 04/12/2020 21:03 (CDT) NAME FRANCE BAUMANN DATE OF 1945 AGE 75 PHONE SSN# [id number] GENDER female EVALUATING PHYSICIAN Dr. Luke Major M.D. ADMISSION DIAGNOSIS: ACUTE CVA ONSET DATE 04/06/2020 POST-ADMISSION FUNCTIONAL/MEDICAL STATUS: - Bladder Same accident frequency: Ind - No accidents in the past 7 days - Bowel Same accident frequency: Ind - No accidents in the past 7 days - Walking Same score based on distance walked: 0(N/A) - Wheelchair Same score based on distance traveled: 0(N/A) STATUS CHANGE EVALUATION: No change in Functional or Medical Status is identified compared with Pre-Admission screening. PATIENT NEEDS CLOSE MEDICAL SUPERVISION BY A REHABILITATION PHYSICIAN FOR: Coordination of Treatment Team Wound Care PATIENT REQUIRES 24X7 REHAB NURSING FOR MEDICAL AND FUNCTIONAL MGT. OF THE FOLLOWING DEFICITS: Disease Management Medication Management Patient/Family Education Providing Safe Environment Skin Integrity PATIENT REQUIRES INTENSIVE, COORDINATED INTERDISCIPLINARY APPROACH TO REHAB: Arranging Home Equipment/Services Discharge Planning Family Intervention/Training Aircraft Charter Dispatcher/Case Management LIST OF IDENTIFIED AND POTENTIAL PROBLEMS: Alteration in leisure activities Bladder, Incontinence Bowel, Incontinence Infection, Actual or Potential Mobility Impaired Pain, Alteration in Comfort Self Care Deficit Skin Integrity, Actual or Potential Urinary Tract Infection (UTI), Actual or Potential PATIENT COULD BE AT RISK FOR COMPLICATIONS FROM ADVERSE MEDICAL CONDITIONS DUE TO HIS/HER COMORBIDITI ES AND THE RIGORS OF THE INTENSIVE REHABILLITATION PROGRAM. METHODS OR INTERVENTIONS TO AVOID COMPLIC ATIONS INCLUDE: - Bleeding Assess lab values and manage abnormalities. Nursing to teach precautions for anti-coagulation therapy . Stroke patients assessed for lethargy or change in status. Wound to be assessed every shift. - Infection Clinical staff to assess and manage the signs and symptoms of infection including fever, redness, war mth, etc. - Urinary Tract Infection - Aspiration Clinical staff will assess and manage coughing, drooling, congestion. - Falls Patient will be evaluated for Fall Precautions and will be placed on Fall Precautions as indicated pe r protocol. - Skin Breakdown Nursing will assess skin daily using assessment tool and will place on Skin Breakdown Precautions as indicated per protocol. - Pain Clinical staff may employ non-medication methods such as massage, distraction, decrease stimulus, etc . as needed. Clinical staff will assess patient's pain level every shift per protocol to assess and e nsure pain management effectiveness. Medications will be given and the pain level re-assessed. PRELIMINARY PLAN OF CARE: - Physical Therapy Patient needs Physical Therapy for a daily minimum of 1.5 hours at least 5 out of 7 days, to improve: Mobility, Strengthening, Transfers, Stretching, ROM, Endurance, Ability to manage stairs, Gait, and Balance. - Rehabilitation Nursing Patient requires 24x7 Rehabilitation Nursing for: Pain Issues, Identifying and preventing risk factor s, Monitoring and reporting current medical conditions, Assisting with ambulation and transfer, Yovana ting with all ADL-s, Teaching patients about disease process and medications, Family teaching, Provid ing safe environment, Bowel and Bladder Issues, Skin Integrity, and Medication Management. Patient needs Aircraft Charter Dispatcher and/or Case Management for: Discharge Planning, Arranging Home Equipmen t or Services, and Family Interventions. - Dietary and Nutrition Services Patient needs Dietary and Nutrition Services for: Adequate Nutrition, Nutritional Supplements, and Nu tritional Education. - Occupational Therapy Patient needs Occupational Therapy for a daily minimum of 1.5 hours at least 5 out of 7 days, to impr ove Activities of Daily Living, including: Eating, Grooming, Bathing, Dressing, Toileting, Toilet Tra nsfers, Community Reintegration, Higher functional activities, Adaptive Equipment, Splinting, Househo ld Tasks, and Other activities as determined. QI SCORES: - Self-Care A. Eating 04-Supervision or touching assistance B. Oral hygiene 04-Supervision or touching assistance C. Toileting hygiene 03-Partial/moderate assistance E. Shower/bathe self 03-Partial/moderate assistance F. Upper body dressing 03-Partial/moderate assistance G. Lower body dressing 02-Substantial/maximal assistance H. Putting on/taking off footwear 88-Not attempted due to medical condition or safety concerns - Mobility A. Roll left and right 03-Partial/moderate assistance B. Sit to lying 03-Partial/moderate assistance C. Lying to sitting on side of bed 03-Partial/moderate assistance D. Sit to stand 03-Partial/moderate assistance E. Chair/ins-by-vtmko transfer 03-Partial/moderate assistance F. Toilet transfer 03-Partial/moderate assistance G. Car transfer 88-Not attempted due to medical condition or safety concerns I. Walk 10 feet 02-Substantial/maximal assistance J. Walk 50 feet with two turns 88-Not attempted due to medical condition or safety concerns K. Walk 150 feet 88-Not attempted due to medical condition or safety concerns L. Walking 10 feet on uneven surfaces 88-Not attempted due to medical condition or safety concerns M. 1 step (curb) 88-Not attempted due to medical condition or safety concerns N. 4 steps 88-Not attempted due to medical condition or safety concerns O. 12 steps 88-Not attempted due to medical condition or safety concerns P. Picking up object 03-Partial/moderate assistance R. Wheel 50 feet with two turns 88-Not attempted due to medical condition or safety concerns S. Wheel 150 feet 88-Not attempted due to medical condition or safety concerns - Bladder and Bowel Bladder continence 0-Always continent Bowel continence 0-Always continent - Endurance Fair - Balance Fair - Safety Awareness Fair POTENTIAL FUNCTIONAL GOALS FOR PATIENT TO ACHIEVE BY DISCHARGE: - Safety Precaution Patient will remain free from falls or injury at time of discharge. - Bed Mobility Patient will perform bed mobility at 4-Nelson level of assistance. - Transfers Patient will complete transfers from bed to chair at 4-Nelson level of assistance. - Mobility Patient will ambulate 150 ft with 4-Nelson level of assistance with RW. PATIENT REHAB POTENTIAL Sidra MOSELEY is able and expected to receive 3 hours of individualized therapy daily on at l east 5 of every 7 days Sidra MOSELEY's prognosis for significant practical improvement within a reasonable period of time appears Good Expected level of measurable improvement will be of a practical value to Sidra MOSELEY's func tional capacity or adaptations to impairments Has a viable Discharge Plan Medically appropriate; condition is sufficiently stable to participate in intensive rehab program DISCHARGE PLAN: - Estimated Length of Stay (days) 17. - Consensus on plan Discharge plan has been discussed with primary caregiver. Patient/Family is in agreement with the jeremy n. Primary caregiver is not in agreement with the plan. - Patient/Family Goals Return home independently. - Planned Living Setting Upon Discharge Home, to live alone. Transitional Living. Primary caregiver: Pt self. CONCLUSION ON REHABILITATION NECESSITY: I have evaluated patient's pre-admission functional status and, comparing it to the patient's post-ad mission functional status now, I conclude that the pre-admission assessment was accurate. Patient's c ondition on admission supports the medical necessity of admission to IRF. It is safe to proceed with patient's therapy program. SIGNATURE PANEL: (CDT)
[2020-04-13] MEDS ORDERED: FAMOTIDINE 20 MG TAB PO SCH (08:00)
[2020-04-13] MEDS ORDERED: CYANOCOBALAMIN PO SCH (08:00)
[2020-04-13] MEDS: GABAPENTIN 300 MG CAP PO SCH ×2 (08:28→19:07)
[2020-04-13] MEDS: VITAMIN D 1000 UNIT TAB PO SCH (08:28)
[2020-04-13] MEDS: PANTOPRAZOLE 40MG TABLET PO SCH (08:29)
[2020-04-13] MEDS: CYANOCOBALAMIN 1,000 MCG TAB PO SCH (08:29)
[2020-04-13] MEDS: ASPIRIN 81 MG CHEWABLE TABLET PO SCH (08:30)
[2020-04-13] MEDS: METOPROLOL TAR 25 MG TAB PO SCH ×2 (08:33→19:08)
[2020-04-13] MEDS ORDERED: PANTOPRAZOLE 40MG TABLET PO SCH (10:00)
[2020-04-13] MEDS: RIVAROXABAN 10 MG TABLET PO SCH (16:33)
[2020-04-13] MEDS: PARoxetine HCL 10 MG TAB PO SCH (19:08)
[2020-04-13] MEDS: ATORVASTATIN 80 MG TAB PO SCH (19:08)
[2020-04-14] MEDS: PANTOPRAZOLE 40MG TABLET PO SCH (06:38)
[2020-04-14] MEDS: METOPROLOL TAR 25 MG TAB PO SCH ×2 (07:35→20:57)
[2020-04-14] MEDS: ASPIRIN 81 MG CHEWABLE TABLET PO SCH (07:36)
[2020-04-14] MEDS: VITAMIN D 1000 UNIT TAB PO SCH (07:36)
[2020-04-14] MEDS: CYANOCOBALAMIN 1,000 MCG TAB PO SCH (07:37)
[2020-04-14] MEDS: GABAPENTIN 300 MG CAP PO SCH ×2 (07:37→20:57)
--- NOTE | 2020-04-14 13:16 | P.PN ---
Subjective Date of Service: 04/14/20 Chief Complaint: L SIDE BODY WEAKNESS. Subjective: Improving SHE WALKED ABOUT 20 LAPS YESTERDAY. SHE WANTS TO GO HOME. I SAID IT IS UPTO THE REHAB TEAM. Review of Systems 10-point ROS is otherwise unremarkable Physical Examination - Vital Signs Temperature: 97.3 F Blood Pressure: 129/54 Pulse: 70 Respirations: 16 Pulse Ox (%): 100 - Physical Exam General: Alert, In no apparent distress, Mild distress HEENT: Atraumatic, PERRLA, EOMI Neck: Supple, JVD not distended Respiratory: Clear to auscultation bilaterally, Normal air movement Cardiovascular: Regular rate/rhythm, Normal S1 S2 Gastrointestinal: Normal bowel sounds, No tenderness Musculoskeletal: No tenderness Integumentary: No rashes Neurological: Normal speech, Normal tone, Normal affect Lymphatics: No axilla or inguinal lymphadenopathy - Studies Microbiology Data (last 24 hrs): 04/12/20 01:28 Clean Catch Urine [place] Count - Final BETWEEN 10,000 & 100,000 CFU/ML 04/12/20 01:28 Clean Catch Urine - Final MIXED ALYSSA. Medications List Reviewed: Yes Assessment And Plan - Current Problems (Diagnosis) (1) Left hemiparesis Current Visit: Yes Status: Acute Plan: IMPROVED. CONTINUE OT AND PT. A FIB WAS THE CAUSE. ABOVE IN HPI. (2) A-fib Current Visit: No Status: Chronic Plan: HAS NOW WATCHMAN PROCEDURE DONE SO SHE WILL NOT NEED XARELTO AFTER 6 WEEKS. SHE IS HIGH RISK FOR FALL AND COMPLICATION OF XARELTO. Qualifiers: Atrial fibrillation type: longstanding persistent Qualified Code(s): I48.11 - Longstanding persistent atrial fibrillation
[2020-04-14] MEDS: HYDROCORTISONE 1 % CREAM 30GM TOP PRN (13:27)
[2020-04-14] MEDS: RIVAROXABAN 10 MG TABLET PO SCH (16:38)
[2020-04-14] MEDS: PARoxetine HCL 10 MG TAB PO SCH (20:57)
[2020-04-14] MEDS: ATORVASTATIN 80 MG TAB PO SCH (20:57)
--- NOTE | 2020-04-14 21:11 | PN ---
Date of Progress Note: 04/13/2020 Subjective: Ms. Magdaleno is doing lot better. She walked about 20 laps yesterday. Denies chest pain, nausea, vomiting. Objective: Chest: Clear. Heart: Regular. Abdomen: No guarding, no rebound or rigidity. Neurologic: Left side hemiparesis, 4/5, stable. Assessment And Plan: Stroke with mild residual. Stable to go home if okay with rehab by doctors and medical regulations. TOM/MARCIAL Voice ID: [id number] Report ID: [id number]
--- NOTE | 2020-04-14 21:11 | R.PN ---
ENCOUNTER DATE AND TIME: 04/14/2020 17:33 (CDT) NAME FRANCE BAUMANN DATE OF : 1945 DATE OF ADMISSION: 04/11/2020 18:11 (CDT) ACUTE CVACHIEF COMPLAINT: Stroke with incoordination and gait instability. SUBJECTIVE: Pt denied any depression. Pt denied any Shortness of Breath. CBC with differential is essentially normal. Sodium and chloride are mildly elevated. Prealbumin is l ow at 10.4. Ambulated 900' with standby assistance using a rolling walker. VITAL SIGNS Temperature: 97.3 F SBP/DBP: 129/54 Pulse: 70 Resp: 16 MEDICATION ALLERGIES: AMOXICILLIN CODEINE PHOSPHATE-GUAIFENESIN DEMEROL MORPHINE ENVIRONMENTAL ALLERGIES: - Substance Allergies None Known - Other Allergies None Known NURSING: - Shower allowing shower - Bladder care per protocol - Skin care per protocol PRECAUTIONS: - Weight Bearing Precaution WBAT left LE ACTIVITIES OOB only with supervision THERAPIES: - Occupational Therapy Cognitive Retraining. Visual Perceptual Training. - Dietary and Nutrition Adequate Nutrition. Nutritional Education. Nutritional Supplements. - Speech Therapy Cognitive Training. Expressive Language Skills. Memory Strategies. Receptive Language Skills. Speech Intelligibility Training. PHYSICAL EXAM - Gen Alert and awake Lying in bed No apparent distress Oriented to: person, time, and place - Skin No breakdowns Normacephalic - Eyes No abnormalities - ENMT No abnormalities - Neck No abnormalities - CVS RRR - Chest No abnormalities - Resp Clear to auscultation - Abd Soft - GI nondistended Deferred - No abnormalities - Ext No significant edema - MSK No Muscle Weakness - Neuro No focal deficits - Psych No abnormalities ASSESSMENT: Pt. is a 75 yo Right-handed white female.On 04/06/2020 Pt. presented to [facility] with sudden onset of left-side weakness.On 04/06/2020 she was admitted to [facility] with diagnosis ACUTE C VA.Her impairment category is Stroke 01 - Left Body (Right Brain) (01.1).Pre-morbidly, Pt. was indep endent/mod-I in Safety Awareness, Sphincter Control, Transfers Control, Self-Care, and Communication; and she had good Endurance and Balance.Currently, she has deficits of Locomotion, Self-Care, Transfe rs Control, Endurance, Balance, and Safety Awareness.Pt. is now referred to [facility] for acute in-patient rehabilitation in order to maximize patient's functional independence i n activities of daily living, strength, ROM, and mobility.- Rehab Goal Patient has realistic goal of being discharged at assistance level 6-Candy to reside at Home with Pt self. MDM/PLAN: - Physical Therapy Gait dysfunction - to improve, our physical therapists will perform initial evaluation of pt's statu s upon admission and devise an individualized program for Gait Training, and Wheel Chair mobility Inability to transfer - to improve, our physical therapists will perform initial evaluation of pt's status upon admission and devise an individualized program for Bed mobility Need for home safety evaluation - to improve, our physical therapists will perform initial evaluatio n of pt's status upon admission and devise an individualized program for Home Evaluation Need in caregiver upon discharge - to improve, our physical therapists will perform initial evaluati on of pt's status upon admission and devise an individualized program for Caregiver Training New precaution - to improve, our physical therapists will perform initial evaluation of pt's status upon admission and devise an individualized program for Patient precaution education Edema - to improve, our physical therapists will perform initial evaluation of pt's status upon admis sue and devise an individualized program for Elevation Training, and Lymphedema Therapy Poor balance - to improve, our physical therapists will perform initial evaluation of pt's status up on admission and devise an individualized program for Balance Training Poor endurance - to improve, our physical therapists will perform initial evaluation of pt's status upon admission and devise an individualized program for Endurance Training Weakness - to improve, our physical therapists will perform initial evaluation of pt's status upon a dmission and devise an individualized program for Aquatic Therapy, Neuromuscular Reeducation, and Str engthening Achieving independence - to improve, our physical therapists will perform initial evaluation of pt's status upon admission and devise an individualized program for Community Reintegration Activities - Occupational Therapy ADL deficits - to improve, our occupation therapists will perform initial evaluation of pt's status upon admission and devise an individualized program for Bathing, Bed mobility, Community Reintegratio n, Cooking, Dressing, Eating, Fine Motor Skills, Grooming, Homemaking, Kitchen Mobility, Laundry, Pat ient Education, Safety Awareness, Splinting - Positioning, Transfers(Toilet, Tub, Shower), and Wheel Chair Management Need for skin care consultant - to improve, our occupation therapists will perform initial evaluation of pt's status upon admission and devise an individualized program for Caregiver Training Weakness - to improve, our occupation therapists will perform initial evaluation of pt's status upon admission and devise an individualized program for Aquatic Therapy, Balance, Endurance, UE ROM, and UE strengthening - Other See attached MAR (Medication Administration Record) - Diet Type Continue Regular - Diet - Liquid Texture Continue Regular - Tube Feed Continue N/A - Bladder care per protocol - Weight Bearing Precaution WBAT left LE - Skin care per protocol - Diet - Solid Texture Continue Regular - Shower allowing shower for Dementia, TBI, Stroke, or others FUNCTIONAL STATUS: UPDATED AT WEEKLY TEAM CONFERENCE - Bladder Same accident frequency: 7-Ind - No accidents in the past 7 days - Bowel Same accident frequency: 7-Ind - No accidents in the past 7 days - Walking Same score based on distance walked: 0(N/A) - Wheelchair Same score based on distance traveled: 0(N/A) FUNCTIONAL STATUS: - Self-Care A. Eating Ind B. Grooming Candy C. Bathing sup D. Dressing - Upper sup E. Dressing - Lower sup F. Toileting sup - Sphincter Control G. Bladder control Candy H. Bowel control Candy - Transfers Control I. Bed/Chair/Wheelchair Candy J. Toilet Candy K. Tub/Shower Nelson - Locomotion L. Walk/Wheelchair (B) Nelson M. Stairs modA - Communication N. Comprehension (B) Ind O. Expression (B) Ind - Social Cognition P. Social Interaction Ind Q. Problem Solving Ind R. Memory Ind - Endurance Good - Balance Fair - Safety Awareness Good QI SCORES: - Self-Care A. Eating 04-Supervision or touching assistance B. Oral hygiene 04-Supervision or touching assistance C. Toileting hygiene 03-Partial/moderate assistance E. Shower/bathe self 03-Partial/moderate assistance F. Upper body dressing 03-Partial/moderate assistance G. Lower body dressing 02-Substantial/maximal assistance H. Putting on/taking off footwear 88-Not attempted due to medical condition or safety concerns - Mobility A. Roll left and right 03-Partial/moderate assistance B. Sit to lying 03-Partial/moderate assistance C. Lying to sitting on side of bed 03-Partial/moderate assistance D. Sit to stand 03-Partial/moderate assistance E. Chair/[id number] transfer 03-Partial/moderate assistance F. Toilet transfer 03-Partial/moderate assistance G. Car transfer 88-Not attempted due to medical condition or safety concerns I. Walk 10 feet 02-Substantial/maximal assistance J. Walk 50 feet with two turns 88-Not attempted due to medical condition or safety concerns K. Walk 150 feet 88-Not attempted due to medical condition or safety concerns L. Walking 10 feet on uneven surfaces 88-Not attempted due to medical condition or safety concerns M. 1 step (curb) 88-Not attempted due to medical condition or safety concerns N. 4 steps 88-Not attempted due to medical condition or safety concerns O. 12 steps 88-Not attempted due to medical condition or safety concerns P. Picking up object 03-Partial/moderate assistance R. Wheel 50 feet with two turns 88-Not attempted due to medical condition or safety concerns S. Wheel 150 feet 88-Not attempted due to medical condition or safety concerns - Bladder and Bowel Bladder continence 0-Always continent Bowel continence 0-Always continent - Endurance Fair - Balance Fair - Safety Awareness Fair [facility] DEFICITS: Self-Care, Mobility, Endurance, Balance, and Safety Awareness SIGNATURE PANEL: (CDT)
[2020-04-15] MEDS: PANTOPRAZOLE 40MG TABLET PO SCH (06:30)
[2020-04-15] MEDS: VITAMIN D 1000 UNIT TAB PO SCH (08:00)
[2020-04-15] MEDS: CYANOCOBALAMIN 1,000 MCG TAB PO SCH (08:11)
[2020-04-15] MEDS: ASPIRIN 81 MG CHEWABLE TABLET PO SCH (08:13)
[2020-04-15] MEDS: METOPROLOL TAR 25 MG TAB PO SCH ×2 (08:13→20:26)
[2020-04-15] MEDS: GABAPENTIN 300 MG CAP PO SCH ×2 (08:13→20:26)
--- NOTE | 2020-04-15 13:09 | P.PN ---
Subjective Date of Service: 04/15/20 Chief Complaint: L SIDE BODY WEAKNESS. SHE WALKED ABOUT 20 LAPS YESTERDAY. SHE WANTS TO GO HOME. I SAID IT IS UPTO THE REHAB TEAM. NO CHANGES. FEELS WELL. WILL GO HOME ON TUESDAY. Review of Systems 10-point ROS is otherwise unremarkable General: Weakness Physical Examination - Vital Signs Temperature: 97.4 F Blood Pressure: 147/66 Pulse: 65 Respirations: 16 Pulse Ox (%): 99 - Physical Exam General: Mild distress HEENT: Atraumatic, PERRLA, EOMI Neck: Supple, JVD not distended Respiratory: Clear to auscultation bilaterally, Normal air movement Cardiovascular: Regular rate/rhythm, Normal S1 S2 Gastrointestinal: Normal bowel sounds, No tenderness Musculoskeletal: No tenderness Integumentary: No rashes Neurological: Normal speech, Normal tone, Normal affect Lymphatics: No axilla or inguinal lymphadenopathy - Studies Medications List Reviewed: Yes Assessment And Plan - Current Problems (Diagnosis) (1) Left hemiparesis Current Visit: Yes Status: Acute Plan: IMPROVED. CONTINUE OT AND PT. A FIB WAS THE CAUSE. ABOVE IN HPI. STABLE FOR DC ON TUESDAY. CONT MEDS. (2) A-fib Current Visit: No Status: Chronic Plan: HAS NOW WATCHMAN PROCEDURE DONE SO SHE WILL NOT NEED XARELTO AFTER 6 WEEKS. SHE IS HIGH RISK FOR FALL AND COMPLICATION OF XARELTO. Qualifiers: Atrial fibrillation type: longstanding persistent Qualified Code(s): I48.11 - Longstanding persistent atrial fibrillation
[2020-04-15] MEDS: RIVAROXABAN 10 MG TABLET PO SCH (16:39)
[2020-04-15] MEDS ORDERED: DOCUSATE NA/SENNA CONC 1 TAB PO PRN (18:00)
[2020-04-15] MEDS: PARoxetine HCL 10 MG TAB PO SCH (20:27)
[2020-04-15] MEDS: ATORVASTATIN 80 MG TAB PO SCH (20:27)
[2020-04-15] MEDS ORDERED: DOCUSATE NA/SENNA CONC 1 TAB ONE (20:34)
[2020-04-16] MEDS: PANTOPRAZOLE 40MG TABLET PO SCH (05:39)
[2020-04-16 07:42] LABS: Absolute Lymphocytes (CBC) 2.1 K/uL (0.7-4.9); Basophils % 0.3 % (0-1.3); Hematocrit 37.9 % (36.0-45.0); Lymphocytes % 30.9 % (15.3-44.8); MPV 10.1 fL (7.6-11.3); RBC Red Blood Cell Count 4.24 M/uL (3.86-4.86)
[2020-04-16] MEDS: VITAMIN D 1000 UNIT TAB PO SCH (08:00)
[2020-04-16] MEDS: ASPIRIN 81 MG CHEWABLE TABLET PO SCH (08:09)
[2020-04-16] MEDS: CYANOCOBALAMIN 1,000 MCG TAB PO SCH (08:09)
[2020-04-16] MEDS: GABAPENTIN 300 MG CAP PO SCH ×2 (08:10→19:31)
[2020-04-16] MEDS: METOPROLOL TAR 25 MG TAB PO SCH ×2 (08:10→19:31)
[2020-04-16 08:27] LABS: ALT/SGPT 38 U/L (12-78); AST/SGOT 43 U/L (15-37); Albumin 3.2 g/dL (3.4-5.0); Alkaline Phosphatase 93 U/L (45-117); BUN Blood Urea Nitrogen 19 mg/dL (7-18); Bicarbonate 30 mmol/L (21-32); Bilirubin Direct 0.2 mg/dL (0-0.2); Bilirubin Total 0.6 mg/dL (0.2-1.0); Glucose Level 101 mg/dL (74-106); HDL Cholesterol 71 mg/dL (40-60); LDL, Direct 20 mg/dL (100-129); Potassium 3.5 mmol/L (3.5-5.1); Protein, Total 7.4 g/dL (6.4-8.2); Sodium Level 141 mmol/L (136-145)
[2020-04-16] MEDS: RIVAROXABAN 10 MG TABLET PO SCH (17:14)
--- NOTE | 2020-04-16 17:19 | P.PN ---
Subjective Date of Service: 04/16/20 Chief Complaint: L SIDE BODY WEAKNESS. Subjective: Improving SHE WALKED ABOUT 20 LAPS YESTERDAY. SHE WANTS TO GO HOME. I SAID IT IS UPTO THE REHAB TEAM. NO CHANGES. FEELS WELL. WILL GO HOME ON TUESDAY. WALKED 10 LAPS AGAIN. Physical Examination - Vital Signs Temperature: 97.4 F Blood Pressure: 133/52 Pulse: 62 Respirations: 16 Pulse Ox (%): 99 - Studies Laboratory Data (last 24 hrs) 04/16/20 07:31: Sodium 141, Potassium 3.5, BUN 19 H, Creatinine 0.73, Glucose 101, Magnesium 2.0, Total Bilirubin 0.6, AST 43 H, ALT 38, Alkaline Phosphatase 93, Triglycerides 56, Cholesterol 88, LDL Cholesterol Direct 20 L, HDL Cholesterol 71 H, Cholesterol/HDL Ratio 1.24 04/16/20 07:31: WBC 6.9, Hgb 12.8, Hct 37.9, Plt Count 245 D Medications List Reviewed: Yes Assessment And Plan - Current Problems (Diagnosis) (1) Left hemiparesis Current Visit: Yes Status: Acute Plan: IMPROVED. CONTINUE OT AND PT. A FIB WAS THE CAUSE. ABOVE IN HPI. STABLE FOR DC ON TUESDAY. CONT MEDS. STABLE. DOING WELL. (2) A-fib Current Visit: No Status: Chronic Plan: HAS NOW WATCHMAN PROCEDURE DONE SO SHE WILL NOT NEED XARELTO AFTER 6 WEEKS. SHE IS HIGH RISK FOR FALL AND COMPLICATION OF XARELTO. Qualifiers: Atrial fibrillation type: longstanding persistent Qualified Code(s): I48.11 - Longstanding persistent atrial fibrillation
--- NOTE | 2020-04-16 18:54 | R.PN ---
ENCOUNTER DATE AND TIME: 04/16/2020 18:50 (CDT) NAME FRANCE BAUMANN DATE OF : 1945 DATE OF ADMISSION: 04/11/2020 18:11 (CDT) ACUTE CVACHIEF COMPLAINT: Stroke with incoordination and gait instability. SUBJECTIVE: Pt denied any depression. Pt denied any Shortness of Breath. CBC with differential is normal. Sodium and chloride are normal. Prealbumin is low at 10.4. Vitamin D is mildly low at 36.6. Ambulated 900' with standby assistance using a rolling walker. She is now modified independent in her room. VITAL SIGNS 97.4Temperature: 97.3 F SBP/DBP: 133/52 Pulse: 62 Resp: 16 MEDICATION ALLERGIES: AMOXICILLIN CODEINE PHOSPHATE-GUAIFENESIN DEMEROL MORPHINE ENVIRONMENTAL ALLERGIES: - Substance Allergies None Known - Other Allergies None Known NURSING: - Shower allowing shower - Bladder care per protocol - Skin care per protocol PRECAUTIONS: - Weight Bearing Precaution WBAT left LE ACTIVITIES OOB only with supervision THERAPIES: - Occupational Therapy Cognitive Retraining. Visual Perceptual Training. - Dietary and Nutrition Adequate Nutrition. Nutritional Education. Nutritional Supplements. - Speech Therapy Cognitive Training. Expressive Language Skills. Memory Strategies. Receptive Language Skills. Speech Intelligibility Training. PHYSICAL EXAM - Gen Alert and awake Lying in bed No apparent distress Oriented to: person, time, and place - Skin No breakdowns Normacephalic - Eyes No abnormalities - ENMT No abnormalities - Neck No abnormalities - CVS RRR - Chest No abnormalities - Resp Clear to auscultation - Abd Soft - GI nondistended Deferred - No abnormalities - Ext No significant edema - MSK No Muscle Weakness - Neuro No focal deficits - Psych No abnormalities ASSESSMENT: Pt. is a 75 yo Right-handed white female.On 04/06/2020 Pt. presented to [facility] with sudden onset of left-side weakness.On 04/06/2020 she was admitted to [facility] with diagnosis ACUTE C VA.Her impairment category is Stroke 01 - Left Body (Right Brain) (01.1).Pre-morbidly, Pt. was indep endent/mod-I in Safety Awareness, Sphincter Control, Transfers Control, Self-Care, and Communication; and she had good Endurance and Balance.Currently, she has deficits of Locomotion, Self-Care, Transfe rs Control, Endurance, Balance, and Safety Awareness.Pt. is now referred to [facility] for acute in-patient rehabilitation in order to maximize patient's functional independence i n activities of daily living, strength, ROM, and mobility.- Rehab Goal Patient has realistic goal of being discharged at assistance level 6-Candy to reside at Home with Pt self. MDM/PLAN: - Physical Therapy Gait dysfunction - to improve, our physical therapists will perform initial evaluation of pt's statu s upon admission and devise an individualized program for Gait Training, and Wheel Chair mobility Inability to transfer - to improve, our physical therapists will perform initial evaluation of pt's status upon admission and devise an individualized program for Bed mobility Need for home safety evaluation - to improve, our physical therapists will perform initial evaluatio n of pt's status upon admission and devise an individualized program for Home Evaluation Need in caregiver upon discharge - to improve, our physical therapists will perform initial evaluati on of pt's status upon admission and devise an individualized program for Caregiver Training New precaution - to improve, our physical therapists will perform initial evaluation of pt's status upon admission and devise an individualized program for Patient precaution education Edema - to improve, our physical therapists will perform initial evaluation of pt's status upon admi ssion and devise an individualized program for Elevation Training, and Lymphedema Therapy Poor balance - to improve, our physical therapists will perform initial evaluation of pt's status up on admission and devise an individualized program for Balance Training Poor endurance - to improve, our physical therapists will perform initial evaluation of pt's status upon admission and devise an individualized program for Endurance Training Weakness - to improve, our physical therapists will perform initial evaluation of pt's status upon a dmission and devise an individualized program for Aquatic Therapy, Neuromuscular Reeducation, and Str engthening Achieving independence - to improve, our physical therapists will perform initial evaluation of pt's status upon admission and devise an individualized program for Community Reintegration Activities - Occupational Therapy ADL deficits - to improve, our occupation therapists will perform initial evaluation of pt's status upon admission and devise an individualized program for Bathing, Bed mobility, Community Reintegratio n, Cooking, Dressing, Eating, Fine Motor Skills, Grooming, Homemaking, Kitchen Mobility, Laundry, Pat ient Education, Safety Awareness, Splinting - Positioning, Transfers(Toilet, Tub, Shower), and Wheel Chair Management Need for rn primary care - to improve, our occupation therapists will perform initial evaluation of pt's status upon admission and devise an individualized program for Caregiver Training Weakness - to improve, our occupation therapists will perform initial evaluation of pt's status upon admission and devise an individualized program for Aquatic Therapy, Balance, Endurance, UE ROM, and UE strengthening - Other See attached MAR (Medication Administration Record) - Diet Type Continue Regular - Diet - Liquid Texture Continue Regular - Tube Feed Continue N/A - Bladder care per protocol - Weight Bearing Precaution WBAT left LE - Skin care per protocol - Diet - Solid Texture Continue Regular - Shower allowing shower for Dementia, TBI, Stroke, or others FUNCTIONAL STATUS: UPDATED AT WEEKLY TEAM CONFERENCE - Bladder Same accident frequency: 7-Ind - No accidents in the past 7 days - Bowel Same accident frequency: 7-Ind - No accidents in the past 7 days - Walking Same score based on distance walked: 0(N/A) - Wheelchair Same score based on distance traveled: 0(N/A) FUNCTIONAL STATUS: - Self-Care A. Eating Ind B. Grooming Candy C. Bathing sup D. Dressing - Upper sup E. Dressing - Lower sup F. Toileting sup - Sphincter Control G. Bladder control Candy H. Bowel control Candy - Transfers Control I. Bed/Chair/Wheelchair Candy J. Toilet Candy K. Tub/Shower Nelson - Locomotion L. Walk/Wheelchair (B) Nelson M. Stairs modA - Communication N. Comprehension (B) Ind O. Expression (B) Ind - Social Cognition P. Social Interaction Ind Q. Problem Solving Ind R. Memory Ind - Endurance Good - Balance Fair - Safety Awareness Good QI SCORES: - Self-Care A. Eating 04-Supervision or touching assistance B. Oral hygiene 04-Supervision or touching assistance C. Toileting hygiene 03-Partial/moderate assistance E. Shower/bathe self 03-Partial/moderate assistance F. Upper body dressing 03-Partial/moderate assistance G. Lower body dressing 02-Substantial/maximal assistance H. Putting on/taking off footwear 88-Not attempted due to medical condition or safety concerns - Mobility A. Roll left and right 03-Partial/moderate assistance B. Sit to lying 03-Partial/moderate assistance C. Lying to sitting on side of bed 03-Partial/moderate assistance D. Sit to stand 03-Partial/moderate assistance E. Chair/tmt-pa-cldsd transfer 03-Partial/moderate assistance F. Toilet transfer 03-Partial/moderate assistance G. Car transfer 88-Not attempted due to medical condition or safety concerns I. Walk 10 feet 02-Substantial/maximal assistance J. Walk 50 feet with two turns 88-Not attempted due to medical condition or safety concerns K. Walk 150 feet 88-Not attempted due to medical condition or safety concerns L. Walking 10 feet on uneven surfaces 88-Not attempted due to medical condition or safety concerns M. 1 step (curb) 88-Not attempted due to medical condition or safety concerns N. 4 steps 88-Not attempted due to medical condition or safety concerns O. 12 steps 88-Not attempted due to medical condition or safety concerns P. Picking up object 03-Partial/moderate assistance R. Wheel 50 feet with two turns 88-Not attempted due to medical condition or safety concerns S. Wheel 150 feet 88-Not attempted due to medical condition or safety concerns - Bladder and Bowel Bladder continence 0-Always continent Bowel continence 0-Always continent - Endurance Fair - Balance Fair - Safety Awareness Fair [facility] DEFICITS: Self-Care, Mobility, Endurance, Balance, and Safety Awareness SIGNATURE PANEL: (CDT)
[2020-04-16] MEDS: PARoxetine HCL 10 MG TAB PO SCH (19:31)
[2020-04-16] MEDS: ATORVASTATIN 80 MG TAB PO SCH (19:33)
[2020-04-17 06:14] LABS: Absolute Lymphocytes (CBC) 1.9 K/uL (0.7-4.9); Basophils % 0.3 % (0-1.3); Hematocrit 36.2 % (36.0-45.0); Lymphocytes % 30.9 % (15.3-44.8); MPV 10.5 fL (7.6-11.3); RBC Red Blood Cell Count 3.99 M/uL (3.86-4.86)
[2020-04-17] MEDS: PANTOPRAZOLE 40MG TABLET PO SCH (06:34)
[2020-04-17] MEDS: HYDROCORTISONE 1 % CREAM 30GM TOP PRN ×2 (06:34→12:50)
[2020-04-17 06:35] LABS: BUN Blood Urea Nitrogen 17 mg/dL (7-18); Bicarbonate 30 mmol/L (21-32); Glucose Level 94 mg/dL (74-106); Magnesium 2.1 mg/dL (1.8-2.4); Potassium 3.6 mmol/L (3.5-5.1); Prealbumin 12.4 mg/dL (20-40); Sodium Level 145 mmol/L (136-145)
[2020-04-17] MEDS: CYANOCOBALAMIN 1,000 MCG TAB PO SCH (08:19)
[2020-04-17] MEDS: METOPROLOL TAR 25 MG TAB PO SCH ×2 (08:20→19:42)
[2020-04-17] MEDS: ASPIRIN 81 MG CHEWABLE TABLET PO SCH (08:20)
[2020-04-17] MEDS: GABAPENTIN 300 MG CAP PO SCH ×2 (08:20→19:41)
[2020-04-17] MEDS: VITAMIN D 1000 UNIT TAB PO SCH (08:20)
--- NOTE | 2020-04-17 12:45 | P.PN ---
Subjective Date of Service: 04/17/20 Chief Complaint: L SIDE BODY WEAKNESS. Subjective: Improving SHE WALKED ABOUT 20 LAPS YESTERDAY. SHE WANTS TO GO HOME. I SAID IT IS UPTO THE REHAB TEAM. NO CHANGES. FEELS WELL. WILL GO HOME ON TUESDAY. WALKED 10 LAPS AGAIN. Physical Examination - Vital Signs Temperature: 97.1 F Blood Pressure: 133/59 Pulse: 62 Respirations: 18 Pulse Ox (%): 97 - Physical Exam General: Alert, In no apparent distress HEENT: Atraumatic, PERRLA, EOMI Neck: Supple, JVD not distended Respiratory: Clear to auscultation bilaterally, Normal air movement Cardiovascular: Regular rate/rhythm, Normal S1 S2 Gastrointestinal: Normal bowel sounds, No tenderness Musculoskeletal: No tenderness Integumentary: No rashes Neurological: Normal speech, Normal tone, Normal affect, Abnormal strength (MILD L BODY WEAKNESS.) Lymphatics: No axilla or inguinal lymphadenopathy - Studies Laboratory Data (last 24 hrs) 04/17/20 05:50: Sodium 145, Potassium 3.6, BUN 17, Creatinine 0.61, Glucose 94, Magnesium 2.1 04/17/20 05:50: WBC 6.1, Hgb 12.1, Hct 36.2, Plt Count 227 Medications List Reviewed: Yes Assessment And Plan - Current Problems (Diagnosis) (1) Left hemiparesis Current Visit: Yes Status: Acute Plan: IMPROVED. CONTINUE OT AND PT. A FIB WAS THE CAUSE. ABOVE IN HPI. STABLE FOR DC ON TUESDAY. CONT MEDS. STABLE. DOING WELL. (2) A-fib Current Visit: No Status: Chronic Plan: HAS NOW WATCHMAN PROCEDURE DONE SO SHE WILL NOT NEED XARELTO AFTER 6 WEEKS. SHE IS HIGH RISK FOR FALL AND COMPLICATION OF XARELTO. Qualifiers: Atrial fibrillation type: longstanding persistent Qualified Code(s): I48.11 - Longstanding persistent atrial fibrillation (3) Hyperparathyroidism Current Visit: Yes Status: Chronic
[2020-04-17] MEDS: RIVAROXABAN 10 MG TABLET PO SCH (16:27)
[2020-04-17] MEDS: ATORVASTATIN 80 MG TAB PO SCH (19:41)
[2020-04-17] MEDS: PARoxetine HCL 10 MG TAB PO SCH (19:42)
[2020-04-17] MEDS: PROMOD 30 ML DOSE PO SCH (19:42)
[2020-04-18] MEDS: PANTOPRAZOLE 40MG TABLET PO SCH (06:20)
[2020-04-18] MEDS: PROMOD 30 ML DOSE PO SCH ×2 (08:09→20:00)
[2020-04-18] MEDS: GABAPENTIN 300 MG CAP PO SCH ×2 (08:10→20:37)
[2020-04-18] MEDS: CYANOCOBALAMIN 1,000 MCG TAB PO SCH (08:10)
[2020-04-18] MEDS: ASPIRIN 81 MG CHEWABLE TABLET PO SCH (08:10)
[2020-04-18] MEDS: VITAMIN D 1000 UNIT TAB PO SCH (08:11)
[2020-04-18] MEDS: METOPROLOL TAR 25 MG TAB PO SCH ×2 (08:11→20:00)
--- NOTE | 2020-04-18 13:50 | P.RH.PN ---
Estimated Length of Stay: 8 Expected Discharge Date: 04/18/20 Discharge Disposition Plan: Home Family Support: Yes [employer] Goal: Mobility, Transfers, Self Care Vital Signs: Last Vital Signs Temp 97.2 F 04/18/20 07:27 Pulse 68 04/18/20 08:11 Resp 14 04/18/20 07:27 BP 127/59 L 04/18/20 08:11 Pulse Ox 98 04/18/20 07:27 Laboratory: Laboratory Last Values WBC 6.1 K/uL (4.3-10.9) 04/17/20 05:50 RBC 3.99 M/uL (3.86-4.86) 04/17/20 05:50 Hgb 12.1 g/dL (12.0-15.0) 04/17/20 05:50 Hct 36.2 % (36.0-45.0) 04/17/20 05:50 MCV 90.7 fL (80-100) 04/17/20 05:50 MCH 30.2 pg (27.0-35.0) 04/17/20 05:50 MCHC 33.3 g/dL (32.0-36.0) 04/17/20 05:50 RDW 13.6 % (12.1-15.2) 04/17/20 05:50 Plt Count 227 K/uL (152-406) 04/17/20 05:50 MPV 10.5 fL (7.6-11.3) 04/17/20 05:50 Neutrophils % 54.2 % (41.7-73.7) 04/17/20 05:50 Lymphocytes % 30.9 % (15.3-44.8) 04/17/20 05:50 Monocytes % 11.1 % (3.3-12.3) 04/17/20 05:50 Eosinophils % 3.5 % (0-4.4) 04/17/20 05:50 Basophils % 0.3 % (0-1.3) 04/17/20 05:50 Absolute Neutrophils 3.3 K/uL (1.8-8.0) 04/17/20 05:50 Absolute Lymphocytes 1.9 K/uL (0.7-4.9) 04/17/20 05:50 Absolute Monocytes 0.7 K/uL (0.1-1.3) 04/17/20 05:50 Absolute Eosinophils 0.2 K/uL (0-0.5) 04/17/20 05:50 Absolute Basophils 0.0 K/uL (0-0.5) 04/17/20 05:50 Sodium 145 mmol/L (136-145) 04/17/20 05:50 Potassium 3.6 mmol/L (3.5-5.1) 04/17/20 05:50 Chloride 110 mmol/L (98-107) H 04/17/20 05:50 Carbon Dioxide 30 mmol/L (21-32) 04/17/20 05:50 BUN 17 mg/dL (7-18) 04/17/20 05:50 Creatinine 0.61 mg/dL (0.55-1.3) 04/17/20 05:50 Estimated GFR > 90 mL/min (=/>90) 04/17/20 05:50 Glucose 94 mg/dL (74-106) 04/17/20 05:50 Hemoglobin A1c 5.6 % (4.2-6.3) 04/16/20 07:31 Calcium 8.3 mg/dL (8.5-10.1) L 04/17/20 05:50 Magnesium 2.1 mg/dL (1.8-2.4) 04/17/20 05:50 Total Bilirubin 0.6 mg/dL (0.2-1.0) 04/16/20 07:31 Direct Bilirubin 0.2 mg/dL (0-0.2) 04/16/20 07:31 AST 43 U/L (15-37) H 04/16/20 07:31 ALT 38 U/L (12-78) 04/16/20 07:31 Alkaline Phosphatase 93 U/L (45-117) 04/16/20 07:31 Serum Total Protein 7.4 g/dL (6.4-8.2) 04/16/20 07:31 Albumin 3.0 g/dL (3.4-5.0) L 04/17/20 05:50 Globulin 4.2 g/dL (2.3-3.5) H 04/16/20 07:31 Albumin/Globulin Ratio 0.8 (1.1-1.8) L 04/16/20 07:31 Prealbumin 12.4 mg/dL (20-40) L 04/17/20 05:50 Triglycerides 56 mg/dL (<150) 04/16/20 07:31 Cholesterol 88 mg/dL (<200) 04/16/20 07:31 LDL Cholesterol Direct 20 mg/dL (100-129) L 04/16/20 07:31 LDL Cholesterol, Calc DRAIN LAYER 04/16/20 07:31 HDL Cholesterol 71 mg/dL (40-60) H 04/16/20 07:31 Cholesterol/HDL Ratio 1.24 04/16/20 07:31 Vitamin B12 > 2000 pg/mL (193-986) H 04/16/20 07:31 25-OH Vitamin D Total 36.6 ng/mL (30-100) 04/16/20 07:31 TSH 3.570 uIU/mL (0.360-3.740) 04/16/20 07:31 PTH Intact 129.3 pg/mL (18.4-80.1) H 04/17/20 05:50 Urine Color Yellow 04/12/20 01:28 Urine Appearance Clear 04/12/20 01:28 Urine pH 5.5 (5.0-7.0) 04/12/20 01:28 Ur Specific Gifford <=1.005 (1.005-1.030) 04/12/20 01:28 Glucose (UA)(Auto) Negative (NEG) 04/12/20 01:28 Urine Ketones Negative (NEG) 04/12/20 01:28 Urine Blood Negative (NEG) 04/12/20 01:28 Urine Nitrite Negative (NEG) 04/12/20 01:28 Urine Bilirubin Negative (NEG) 04/12/20 01:28 Urine Urobilinogen 0.2 mg/dL (0.2-1.0) 04/12/20 01:28 Ur Leukocyte Esterase Negative (NEG) 04/12/20 01:28 Urine RBC <5 /HPF (NONE SEEN) 04/12/20 01:28 Urine WBC <5 /HPF (<5) 04/12/20 01:28 Ur Squamous Epith Cells <5 /HPF (NONE SEEN) 04/12/20 01:28 Urine Bacteria <20 /HPF (<20) 04/12/20 01:28 Urine Culture Reflexed Not needed 04/12/20 01:28 Urine Total Protein Negative (NEG) 04/12/20 01:28 Weight: 124 lb 12.8 oz Wound Present: No Closed Surgical Incision Present: No Negative Pressure Wound Therapy Present: No Physician Update: Labs reviewed and are stable. She is modified independent with ADL. She is a supervision with speech therapy. She is walking 1000' with modified independence. She will be discharged home today and will do [facility]. 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 Please see the Rehabilitation Signature page for all necessary signatures.
[2020-04-18] MEDS ORDERED: RIVAROXABAN 20 MG TABLET PO SCH (17:00)
--- NOTE | 2020-04-18 19:05 | P.PN ---
Subjective Date of Service: 04/18/20 Chief Complaint: L SIDE BODY WEAKNESS. Subjective: Improving SHE WALKED ABOUT 20 LAPS YESTERDAY. SHE WANTS TO GO HOME. I SAID IT IS UPTO THE REHAB TEAM. NO CHANGES. FEELS WELL. WILL GO HOME ON TUESDAY. WALKED 10 LAPS AGAIN. SHE IS DOING GOOD. SHE IS GOING HOME IN AM SHE HAS ALL MEDS A RAHAT. Physical Examination - Vital Signs Temperature: 97.2 F Blood Pressure: 127/59 Pulse: 68 Respirations: 14 Pulse Ox (%): 98 - Studies Medications List Reviewed: Yes Assessment And Plan - Current Problems (Diagnosis) (1) Left hemiparesis Current Visit: Yes Status: Acute Plan: IMPROVED. CONTINUE OT AND PT. A FIB WAS THE CAUSE. ABOVE IN HPI. STABLE FOR DC ON TUESDAY. CONT MEDS. STABLE. DOING WELL. (2) A-fib Current Visit: No Status: Chronic Plan: HAS NOW WATCHMAN PROCEDURE DONE SO SHE WILL NOT NEED XARELTO AFTER 6 WEEKS. SHE IS HIGH RISK FOR FALL AND COMPLICATION OF XARELTO. Qualifiers: Atrial fibrillation type: longstanding persistent Qualified Code(s): I48.11 - Longstanding persistent atrial fibrillation (3) Hyperparathyroidism Current Visit: Yes Status: Chronic
[2020-04-18] MEDS: ATORVASTATIN 80 MG TAB PO SCH (20:37)
[2020-04-18] MEDS: PARoxetine HCL 10 MG TAB PO SCH (20:37)
[2020-04-19 05:28] VITALS: BMI 24.4
[2020-04-19] MEDS: PANTOPRAZOLE 40MG TABLET PO SCH (07:14)
[2020-04-19 07:18] VITALS: BP 116/57; TEMP 98.4
[2020-04-19] MEDS: VITAMIN D 1000 UNIT TAB PO SCH (08:21)
[2020-04-19] MEDS: HYDROCORTISONE 1 % CREAM 30GM TOP PRN (08:21)
[2020-04-19] MEDS: CYANOCOBALAMIN 1,000 MCG TAB PO SCH (08:22)
[2020-04-19] MEDS: METOPROLOL TAR 25 MG TAB PO SCH (08:22)
[2020-04-19] MEDS: PROMOD 30 ML DOSE PO SCH (08:24)
[2020-04-19] MEDS: GABAPENTIN 300 MG CAP PO SCH (08:24)
[2020-04-19] MEDS: ASPIRIN 81 MG CHEWABLE TABLET PO SCH (08:24)
[2020-04-22 22:57] LABS: Albumin, (SPE) 2.9 g/dL (3.8-4.8); Alpha-1-Globulins 0.3 g/dL (0.2-0.3); Alpha-2-Globulins 0.8 g/dL (0.5-0.9); Gamma Globulins 0.8 g/dL (0.8-1.7); INTERPRETATION REPORT
== END 2020-04-19 09:30 | disposition home health service (06) | DRG 57 ==
LOC: 5TH 04-11 20:11
PROVIDERS: ADMIT Psychiatry & Neurology Neurology with Special Qualifications in Child Neurology; ATTEND Psychiatry & Neurology Neurology with Special Qualifications in Child Neurology
DX: I69.354 Hemiplegia and hemiparesis following cerebral infarction affecting left non-dominant side (principal); I48.11 Longstanding persistent atrial fibrillation; I10 Essential (primary) hypertension; E21.3 Hyperparathyroidism, unspecified; E78.5 Hyperlipidemia, unspecified; Z88.1 Allergy status to other antibiotic agents; Z88.5 Allergy status to narcotic agent; Z88.8 Allergy status to other drugs, medicaments and biological substances; Z98.84 Bariatric surgery status; Z90.49 Acquired absence of other specified parts of digestive tract; Z90.710 Acquired absence of both cervix and uterus; Z79.82 Long term (current) use of aspirin; Z79.899 Other long term (current) drug therapy; Z11.59 Encounter for screening for other viral diseases
CPT/HCPCS: 36415; 80048; 80061; 80076; 81001; 82040; 82306; 82607; 83036; 83735; 83970; 84134; 84165; 84443; 85025; 86334; 87086; 87088; 92507; 92523; 97112; 97116; 97127; 97162; 97530; U0002

== ENCOUNTER 2020-06-06 13:07 | Emergency (ER) | payer OTHER ==
--- OUTSIDE RECORDS SUMMARY | 2020-06-06 13:09 | XMS REPORT | Clinical Summary ---
:1945 Author Organization [facility] Address [address] [place] [address] Care Team Providers Name Role Phone Salvatore Mathis MD Primary Care Provider [phone] Allergies Active Allergy Reactions Severity Noted [...] Encounters Date Type Specialty Care Team Description 04/05/2020 Intake Access after 06/06/2019 Family History Medical History Relation Name Comments [...] of 2 - PCV13) 2010 INFLUENZA VACCINE 05/20/2020 Results Not on fileafter 06/06/2019 Insurance Payer Benefit Plan / Subscriber ID Effective Dates Phone Addre ss Type Group AETNA AETNA PPO OPEN xxxxxxxxx 2000-Present PPO CHOICE MEDICARE MEDICARE PART A xxxxxxxxxx 2010-Present [place], [place] Medicare [place] B Advance Directives For more information, please contact: [phone] Type Date Recorded Patient Electronic Installer Explanati on Advance Directives, Living Will 2017 7:08 AM and Medical Power of Hedis Coordinator
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
--- OUTSIDE RECORDS SUMMARY | 2020-06-06 13:09 | XMS REPORT | Clinical Summary ---
:[address] [facility] Address [address] [place] [address] Care Team Providers Name Role Phone Unavailable Primary Care Provider Unavailable Allergies No Known Allergies Medications Not on file Active Problems Not on file Encounters Date Type Specialty Care Team Description 04/12/2020 Lab Requisition Lab 10/05/2019 Hospital Encounter Radiology Salvatore Puente Mass o f pancreas MD Nestor 10/03/2019 Outside Orders Central Scheduling Salvatore Faustin of pancreas (Primary Dx) after 06/06/2019 Social History Tobacco Use Types Packs/Day Years [...] Name Priority Date/Time Associated Diagnosis Comme nts SARS-COV2/RT-PCR Routine 04/12/2020 12:47 AM Resu lts for this ([facility]) CDT procedure are in the results section. MR ABDOMEN WITH & Routine 10/05/2019 10:06 AM Mass of pancreas Results for this WITHOUT IV CONTRAST HUMAN RESOURCES SERVICES SPECIALIST procedur e are in the results section. POCT-CREATININE Routine 10/05/2019 9:28 AM Resul ts for this HUMAN RESOURCES SERVICES SPECIALIST procedure are i n the results section. after 06/06/2019 Results SARS-CoV2/RT-PCR ([facility]) (04/12/2020 12:47 AM CDT) SARS-COV2/RT-PCR Negative Not Detected, Negative, [facility] See external report for MEDICAL CENTER linked test SARS-COV-2 PERFORMING LAB BSC [facility] Specimen Other Narrative Performed At Negative results do not preclude SARS-CoV-2 [facility] infection and should not be used as [...] of the Act. Fact Sheet for Healthcare Providers: https://www.Keycoopt/Documents/Xpert%20Xpre ss%20SARS%20CoV-2/Fact%20Sheets/3023802%20SAR S-COV-2%20HEALTHCARE%20PROVIDERS%20FACT%20SHEE T.pdf Fact Sheet for Healthcare Patients: https://www.Keycoopt/Documents/Xpert%20Xpre ss%20SARS%20CoV-2/Fact%20Sheets/3023801%20SAR S-COV-2%20PATIENT%20FACT%20SHEET.pdf Performing Laboratory: [address] [place] [address] Performing Organization Address City/State/Zipcode Phone Number [address] [address] CENTER MR abdomen without & with IV contrast (10/05/2019 10:06 AM HUMAN RESOURCES SERVICES SPECIALIST) Specimen Narrative Performed At FINAL REPORT [facility] MRI of the abdomen with and without [...] MD Report Verified Date/Time:10/05/2019 11:51:38 Reading Location: [facility] Radiology Reading Room Procedure Note Interface, External Ris In - 10/05/2019 11:53 AM HUMAN RESOURCES SERVICES SPECIALIST FINAL REPORT MRI of the abdomen with [...] Verified Date/Time: 10/05/2019 1 1:51:38 Reading Location: [facility] Radiology Reading Room Performing Organization Address City/State/Zipcode Phone Number GE [facility] POC-Creatinine (10/05/2019 9:28 AM HUMAN RESOURCES SERVICES SPECIALIST) POC-Creatinine 0.5 (L)Comment: TESTED AT 0.6 - 1.3 mg/dL [facility] [address] [place] [address] [place] [address] POC-EGFR 121 mL/min/1.73M2 [facility] Specimen Blood Performing Organization Address City/State/Zipcode Phone Number [phone] [place] [address] CENTER after 06/06/2019 Insurance Payer Benefit Plan / Subscriber ID Type Phone Address Group AETNA - AETNA MEDICARE xxxxxxxxxxxx [facility] [phone] [address] MEDICARE MGD HMO POS [id number] [place] [address]
[2020-06-06] MEDS ORDERED: ONDANSETRON 4 MG/2 ML VIAL ONE (13:53)
[2020-06-06] MEDS ORDERED: MORPHINE 2 MG/ML SYR ONE ×2 (13:53→15:15)
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
--- NOTE | 2020-06-06 14:19 | RAD REPORT ---
EXAM DESCRIPTION: CT - Pelvis Wo Cont - 06/06/2020 1:59 pm CLINICAL HISTORY: TRAUMA Fall, pain COMPARISON: CT LEFT KNEE WO CONTRAST dated 06/03/2019; PELVIS W O CONTRAST dated 07/05/2014 TECHNIQUE: All CT scans are performed using dose optimization technique as appropriate and may inclu de automated exposure control or mA/KV adjustment according to patient size. FINDINGS: The bones are diffusely osteopenic. Hardware is present in the proximal left femur. The ri ght hip appears intact. Fracture of the left sacral ala is seen which likely represents a sacral insufficiency fracture. Fracture of the left superior pubic ramus near the acetabulum is noted and inferior pubic ramus is pr esent with mild displacement. Fracture of the inferior pubic ramus is present. Fracture of the superior pubic ramus near the pubic symphysis is also present. IMPRESSION: Superior and inferior pubic rami fractures are present bilaterally. Sacral insufficiency fracture suspected left sacral ala.
--- NOTE | 2020-06-06 14:26 | RAD REPORT ---
EXAM DESCRIPTION: RAD - Shoulder Left 2 View - 06/06/2020 2:21 pm CLINICAL HISTORY: PAIN Fall, pain COMPARISON: Shoulder Left 2 View dated 07/05/2014 FINDINGS: Bones are demineralized. Moderate degenerative changes involving the glenohumeral joint an d AC joint noted. No acute fracture or dislocation seen.
--- NOTE | 2020-06-06 15:39 | EDPHYS ---
Physician Documentation [facility] Name: Sharla Tesfaye Age: 75 yrs Sex: Female : 1945 Arrival Date: 06/06/2020 Time: 13:09 Bed 8 Private MD: ED Physician Eric Holloway HPI: 06/06 15:33 This 75 yrs old Female presents to ER via EMS with complaints of Fall Injury. kb 15:33 Details of fall: The patient fell from an upright position, while walking. Onset: The kb symptoms/episode began/occurred just prior to arrival. Associated injuries: The patient sustained injury to the head, pain, left shoulder, painful injury, pelvis, painful injury. Severity of symptoms: At their worst the symptoms were moderate, in the emergency department the symptoms are unchanged. The patient has not experienced similar symptoms in the past. The patient has not recently seen a physician. 15:35 Pt reports she tripped and fell at home today landing on left side. States she was able kb to walk afterwards, but pain was progressing. Historical: - Allergies: 13:14 Amoxicillin; em 13:14 annaprox; em 13:14 Codeine; em 13:14 Demerol; em 13:14 Etodolac; em 13:14 Ibuprofen; em - PMHx: 13:14 Atrial Fib; High Cholesterol; Hypertension; em - PSHx: 13:14 Gastric Bypass; Knee surgery; Cholecystectomy; Hysterectomy; Appendectomy; em Tonsillectomy; - Immunization history:: Adult Immunizations up to date. - Social history:: Smoking status: Patient denies any tobacco usage or history of. ROS: 15:31 Constitutional: Negative for fever, chills, and weight loss, Cardiovascular: Negative kb for chest pain, palpitations, and edema, Respiratory: Negative for shortness of breath, cough, wheezing, and pleuritic chest pain, Abdomen/GI: Negative for abdominal pain, nausea, vomiting, diarrhea, and constipation, Back: Negative for injury and pain, Skin: Negative for injury, rash, and discoloration, Neuro: Negative for headache, weakness, numbness, tingling, and seizure. 15:31 MS/extremity: Positive for injury or acute deformity, pain, tenderness. Exam: 15:31 Constitutional: This is a well developed, well nourished patient who is awake, alert, kb and in no acute distress. Head/Face: Normocephalic, atraumatic. Chest/axilla: Normal chest wall appearance and motion. Nontender with no deformity. No lesions are appreciated. Cardiovascular: Regular rate and rhythm with a normal S1 and S2. No gallops, murmurs, or rubs. Normal PMI, no JVD. No pulse deficits. Respiratory: Lungs have equal breath sounds bilaterally, clear to auscultation and percussion. No rales, rhonchi or wheezes noted. No increased work of breathing, no retractions or nasal flaring. Abdomen/GI: Soft, non-tender, with normal bowel sounds. No distension or tympany. No guarding or rebound. No evidence of tenderness throughout. Back: No spinal tenderness. No costovertebral tenderness. Full range of motion. Skin: Warm, dry with normal turgor. Normal color with no rashes, no lesions, and no evidence of cellulitis. Neuro: Awake and alert, GCS 15, oriented to person, place, time, and situation. Cranial nerves II-XII grossly intact. Motor strength 5/5 in all extremities. Sensory grossly intact. Cerebellar exam normal. Normal gait. 15:31 Musculoskeletal/extremity: Extremities: grossly normal except: noted in the left femoral area and left shoulder: tenderness, ROM: intact in all extremities, Circulation is intact in all extremities. Sensation intact. Weight bearing: can bear weight with assistance only. Vital Signs: 13:10 BP 159 / 85; Pulse 76; Resp 18; Temp 97.6; Pulse Ox 96% on R/A; Weight 58.97 kg; Height em 5 ft. 2 in. (157.48 cm); 15:00 BP 141 / 70; Pulse 77; Resp 18; Pulse Ox 96% on R/A; em 13:10 Body Mass Index 23.78 (58.97 kg, 157.48 cm) em [place] Coma Score: 13:10 Eye Response: spontaneous(4). Verbal Response: oriented(5). Motor Response: obeys em commands(6). Total: 15. Trauma Score (Adult): 13:10 Eye Response: spontaneous(1); Verbal Response: oriented(1); Motor Response: obeys em commands(2); Systolic BP: > 89 mm Hg(4); Respiratory Rate: 10 to 29 per min(4); [place] Score: 15; Trauma Score: 12 MDM: 13:18 Patient medically screened. kb 15:32 Data reviewed: vital signs, nurses notes. Data interpreted: Pulse oximetry: on room air kb is 96 %. Interpretation: normal. Counseling: I had a detailed discussion with the patient and/or guardian regarding: the historical points, exam findings, and any diagnostic results supporting the discharge/admit diagnosis, radiology results, the need for outpatient follow up, a family practitioner, a orthopedic surgeon, to return to the emergency department if symptoms worsen or persist or if there are any questions or concerns that arise at home. ED course: ERP consulted Dr Nettles. Recommended outpatient follow up and pain management. 06/06 13:22 Order name: Shoulder Left (2 View) XRAY; Complete Time: 14:32 kb 06/06 13:22 Order name: CT Head Brain wo Cont; Complete Time: 14:17 kb 06/06 13:22 Order name: CT Pelvis wo Cont; Complete Time: 14:23 kb 06/06 13:31 Order name: IV Start; Complete Time: 13:46 kb Administered Medications: 13:43 Drug: Zofran (Ondansetron) 4 mg Route: IVP; Site: right antecubital; em 14:44 Follow up: Response: No adverse reaction em 13:45 Drug: morphine 2 mg Route: IVP; Site: right antecubital; em 14:44 Follow up: Response: No adverse reaction; Marked relief of symptoms; Pain is decreased em 14:55 Drug: morphine 2 mg Route: IVP; Site: right antecubital; em 17:09 Follow up: Response: No adverse reaction iw 16:20 Drug: [place] 5 mg-325 mg 1 tabs Route: PO; iw 17:09 Follow up: Response: No adverse reaction iw 16:20 Drug: Flexeril 10 mg Route: PO; iw 17:09 Follow up: Response: No adverse reaction; Pain is decreased iw Disposition: 06/07 07:05 Co-signature as Attending Physician, Eric Holloway MD I agree with the assessment and kdr plan of care. Disposition: 06/06/20 15:38 Discharged to Home. Impression: Superior and inferior pubic rami fractures bilaterally. - Condition is Stable. - Discharge Instructions: Simple Pelvic Fracture, Adult. - Prescriptions for Cyclobenzaprine 10 mg Oral Tablet - take 1 tablet by ORAL route every 8 hours As needed; 30 tablet. Tramadol 50 mg Oral Tablet - take 1 tablet by ORAL route every 8 hours as needed; 12 tablet. - Medication Reconciliation Form, Thank You Letter, Antibiotic Education, Prescription Opioid Use form. - Follow up: Private Physician; When: 2 - 3 days; Reason: Recheck today's complaints, Continuance of care, Re-evaluation by your physician. Follow up: Emergency Department; When: As needed; Reason: Worsening of condition. Signatures: Dispatcher [employer] EDMS Larisa Andrade, NATURAL SCIENCE MANAGER-C NATURAL SCIENCE MANAGER-Eric Nur MD MD kdr Munoz, Edgar, RN RN Rehana Tong RN RN iw Corrections: (The following items were deleted from the chart) 06/06 17:10 15:38 06/06/2020 15:38 Discharged to Home. Impression: Superior and inferior pubic rami iw fractures bilaterally. Condition is Stable. Forms are Medication Reconciliation Form, Thank You Letter, Antibiotic Education, Prescription Opioid Use. Follow up: Private Physician; When: 2 - 3 days; Reason: Recheck today's complaints, Continuance of care, Re-evaluation by your physician. Follow up: Emergency Department; When: As needed; Reason: Worsening of condition. kb
--- NOTE | 2020-06-06 15:39 | ER ---
Nurse's Notes [facility] Name: Sharla Tesfaye Age: 75 yrs Sex: Female : 1945 Arrival Date: 06/06/2020 Time: 13:09 Bed 8 Private MD: Diagnosis: Superior and inferior pubic rami fractures bilaterally Presentation: 06/06 13:10 Chief complaint: EMS states: fall from standing, daughter reports pt hit head, denies em LOC does take xarelto, ambulated with assistance after fall but reports pain on the left shoulder, left hip and leg, also left buttocks. Coronavirus screen: Client denies travel out of the [place] in the last 14 days. Ebola Screen: Patient negative for fever greater than or equal to 101.5 degrees Fahrenheit, and additional compatible Ebola Virus Disease symptoms Patient denies exposure to infectious person. Patient denies travel to an Ebola-affected area in the 21 days before illness onset. No symptoms or risks identified at this time. Initial Sepsis Screen: Does the patient meet any 2 criteria? No. Patient's initial sepsis screen is negative. Does the patient have a suspected source of infection? No. Patient's initial sepsis screen is negative. Risk Assessment: Do you want to hurt yourself or someone else? Patient reports no desire to harm self or others. Onset of symptoms was June 06, 2020. 13:10 Method Of Arrival: EMS: [facility] em 13:10 Acuity: JENNIFER 3 em Historical: - Allergies: 13:14 Amoxicillin; em 13:14 annaprox; em 13:14 Codeine; em 13:14 Demerol; em 13:14 Etodolac; em 13:14 Ibuprofen; em - PMHx: 13:14 Atrial Fib; High Cholesterol; Hypertension; em - PSHx: 13:14 Gastric Bypass; Knee surgery; Cholecystectomy; Hysterectomy; Appendectomy; em Tonsillectomy; - Immunization history:: Adult Immunizations up to date. - Social history:: Smoking status: Patient denies any tobacco usage or history of. Screenin:10 Abuse screen: Denies threats or abuse. Nutritional screening: No deficits noted. em Tuberculosis screening: No symptoms or risk factors identified. Fall Risk None identified. Primary Survey: 13:10 NO uncontrolled hemorrhage observed. A: The patient is alert. Airway: patent. em Breathing/Chest: Respiratory pattern: regular, Respiratory effort: spontaneous, Chest inspection: symmetrical rise and fall of the chest. Circulation: Heart tones present. Skin temperature: warm, dry. Disability Alert. Exposure/Environment: All clothing and personal items were removed. Forensic evidence collection is not deemed to be indicated at this time. Items placed in patient belonging bag. There is no evidence of uncontrolled external bleeding. No obvious injuries are noted at this time. Assessment: 13:10 General: Appears uncomfortable, Behavior is calm, cooperative, appropriate for age. em Pain: Complains of pain in anterior aspect of left shoulder, right gluteus manuel and pelvis. Neuro: Level of Consciousness is awake, alert, obeys commands, Oriented to person, place, time, situation, Appropriate for age. Cardiovascular: Capillary refill < 3 seconds Patient's skin is warm and dry. Respiratory: Airway is patent Respiratory effort is even, unlabored, Respiratory pattern is regular, symmetrical. GI: Abdomen is flat, Patient currently denies nausea, vomiting. Derm: Skin is intact, is fragile, is thin, Skin is pink, warm \T\ dry. Musculoskeletal: Range of motion: limited in left shoulder and left hip. Vital Signs: 13:10 BP 159 / 85; Pulse 76; Resp 18; Temp 97.6; Pulse Ox 96% on R/A; Weight 58.97 kg; Height em 5 ft. 2 in. (157.48 cm); 15:00 BP 141 / 70; Pulse 77; Resp 18; Pulse Ox 96% on R/A; em 13:10 Body Mass Index 23.78 (58.97 kg, 157.48 cm) em [place] Coma Score: 13:10 Eye Response: spontaneous(4). Verbal Response: oriented(5). Motor Response: obeys em commands(6). Total: 15. Trauma Score (Adult): 13:10 Eye Response: spontaneous(1); Verbal Response: oriented(1); Motor Response: obeys em commands(2); Systolic BP: > 89 mm Hg(4); Respiratory Rate: 10 to 29 per min(4); [place] Score: 15; Trauma Score: 12 ED Course: 13:09 Patient arrived in ED. em 13:10 Patient maintains SpO2 saturation greater than 95% on room air. em 13:13 Triage completed. em 13:14 Arm band placed on. em 13:18 Larisa Andrade FNP-C is [facility]. kb 13:18 Eric Holloway MD is Attending Physician. kb 13:40 Inserted saline lock: 20 gauge in right antecubital area, using aseptic technique. em 13:45 Larry Mack, RN is Primary Nurse. em 13:47 Patient has correct armband on for positive identification. Bed in low position. Call mh5 light in reach. Side rails up X2. Warm blanket given. Pillow given. asbestos coverer on. Pulse ox on. NIBP on. 13:59 CT Head Brain wo Cont In Process Unspecified. EDMS 13:59 CT Pelvis wo Cont In Process Unspecified. EDMS 14:18 Shoulder Left (2 View) XRAY In Process Unspecified. EDMS 17:10 No provider procedures requiring assistance completed. IV discontinued, intact, iw bleeding controlled, No redness/swelling at site. Pressure dressing applied. Administered Medications: 13:43 Drug: Zofran (Ondansetron) 4 mg Route: IVP; Site: right antecubital; em 14:44 Follow up: Response: No adverse reaction em 13:45 Drug: morphine 2 mg Route: IVP; Site: right antecubital; em 14:44 Follow up: Response: No adverse reaction; Marked relief of symptoms; Pain is decreased em 14:55 Drug: morphine 2 mg Route: IVP; Site: right antecubital; em 17:09 Follow up: Response: No adverse reaction iw 16:20 Drug: [place] 5 mg-325 mg 1 tabs Route: PO; iw 17:09 Follow up: Response: No adverse reaction iw 16:20 Drug: Flexeril 10 mg Route: PO; iw 17:09 Follow up: Response: No adverse reaction; Pain is decreased iw Outcome: 15:38 Discharge ordered by MD. kb 17:10 Discharged to home via wheelchair, with family. iw 17:10 Condition: good 17:10 Patient's length of stay in the Emergency Department was greater than 2 hours. 17:10 Discharge instructions given to patient, family, Instructed on discharge instructions, iw follow up and referral plans. medication usage, Demonstrated understanding of instructions, follow-up care, medications, Prescriptions given X 2. 17:10 Patient left the ED. iw Signatures: Dispatcher [employer] EDMS Larisa Andrade WAREHOUSER-C WAREHOUSER-Ckb Larry Mack, RN RN Rehana Tong, BENNY RN Dalia Carbone [facility]
[2020-06-06] MEDS ORDERED: CYCLOBENZAPRINE 10 MG TAB ONE (16:20)
[2020-06-06] MEDS ORDERED: HYDROCODONE/APAP 5/325 MG TAB ONE (16:20)
[2020-06-06 19:55] VITALS: TEMP 97.6; O2SAT 96
[2020-06-06 19:56] VITALS: BP 141/70
== END 2020-06-06 17:10 | disposition home or self-care (01) ==
LOC: ER 13:07
DX: S32.592A Other specified fracture of left pubis, initial encounter for closed fracture (principal); S32.591A Other specified fracture of right pubis, initial encounter for closed fracture; W19.XXXA Unspecified fall, initial encounter; Y93.9 Activity, unspecified; Y92.9 Unspecified place or not applicable; I10 Essential (primary) hypertension; I48.91 Unspecified atrial fibrillation; Z79.01 Long term (current) use of anticoagulants; Z88.1 Allergy status to other antibiotic agents; Z88.5 Allergy status to narcotic agent; Z88.6 Allergy status to analgesic agent; Z88.8 Allergy status to other drugs, medicaments and biological substances
CPT/HCPCS: 70450; 72192; 73030; 96375; 96374; 99285; J2270 ×2; J2405

== ENCOUNTER 2020-06-08 10:34 | Emergency (ER) | payer OTHER ==
--- OUTSIDE RECORDS SUMMARY | 2020-06-08 10:37 | XMS REPORT | Clinical Summary ---
:1945 Author Organization [facility] Address [address] [place] [address] Care Team Providers Name Role Phone Salvatore Mathis MD Primary Care Provider [phone] Allergies Active Allergy Reactions Severity Noted [...] INFLUENZA VACCINE 05/20/2020 Results Not on fileafter 06/08/2019 Insurance Payer Benefit Plan / Subscriber ID Effective Dates Phone Addre ss Type Group AETNA AETNA PPO OPEN [id number] 2000-Present PPO CHOICE MEDICARE MEDICARE PART A [id number] 2010-Present KAI [place], [place] Medicare AND B Advance Directives For more information, please contact: [phone] Type Date Recorded Patient Trader Fixed Income Explanati on Advance Directives, Living Will 2017 7:08 AM and Medical Power of Teacher Specialist
--- OUTSIDE RECORDS SUMMARY | 2020-06-08 10:37 | XMS REPORT | Clinical Summary ---
:1945 Author Organization [facility] Address [address] [place] [address] Care Team Providers Name Role Phone Unavailable Primary Care Provider Unavailable Allergies No Known Allergies Medications Not on file Active Problems Not on file Encounters Date Type Specialty Care Team Description 04/12/2020 Lab Requisition Lab 10/05/2019 Hospital Encounter Radiology Salvatore Puente Mass o f pancreas MD Nestor 10/03/2019 Outside Orders Central Scheduling Salvatore Faustin of pancreas (Primary Dx) after 06/08/2019 Social History Tobacco Use Types Packs/Day Years [...] pancreas Results for this WITHOUT IV CONTRAST MACHINE ERECTOR procedur e are in the results section. POCT-CREATININE Routine 10/05/2019 9:28 AM Resul ts for this MACHINE ERECTOR procedure are i n the results section. after 06/08/2019 Results SARS-CoV2/RT-PCR ([facility]) (04/12/2020 12:47 AM CDT) SARS-COV2/RT-PCR Negative Not Detected, Negative, [facility] See external report for MEDICAL CENTER linked test SARS-COV-2 PERFORMING LAB [facility] Specimen Other Narrative Performed At Negative results do not preclude SARS-CoV-2 [facility] infection and should not be used as [...] the Act. Fact Sheet for Healthcare Providers: https://www.Linio/Documents/Xpert%20Xpre ss%20SARS%20CoV-2/Fact%20Sheets/3023802%20SAR S-COV-2%20HEALTHCARE%20PROVIDERS%20FACT%20SHEE T.pdf Fact Sheet for Healthcare Patients: https://www.Linio/Documents/Xpert%20Xpre ss%20SARS%20CoV-2/Fact%20Sheets/3023801%20SAR S-COV-2%20PATIENT%20FACT%20SHEET.pdf Performing Laboratory: [address] [place] [address] Performing Organization Address City/State/Zipcode Phone Number [address] [address] CENTER MR abdomen without & with IV contrast (10/05/2019 10:06 AM MACHINE ERECTOR) Specimen Narrative Performed At FINAL REPORT [employer] MRI of the abdomen with and without [...] MD Report Verified Date/Time:10/05/2019 11:51:38 Reading Location: [facility] Radiology Reading Room Procedure Note Interface, External Ris In - 10/05/2019 11:53 AM MACHINE ERECTOR FINAL REPORT MRI of the abdomen with [...] Verified Date/Time: 10/05/2019 1 1:51:38 Reading Location: [facility] Radiology Reading Room Performing Organization Address City/State/Zipcode Phone Number GE RIS POC-Creatinine (10/05/2019 9:28 AM MACHINE ERECTOR) POC-Creatinine 0.5 (L)Comment: TESTED AT 0.6 - 1.3 mg/dL [facility] [address] [place] [address] [place] [address] POC-EGFR 121 mL/min/1.73M2 [facility] Specimen Blood Performing Organization Address City/State/Zipcode Phone Number [place] [phone] [place] [address] CENTER after 06/08/2019 Insurance Payer Benefit Plan / Subscriber ID Type Phone Address Group AETNA - AETNA MEDICARE xxxxxxxxxxxx [facility] [phone] [address] MEDICARE MGD HMO POS [id number] [place] [address]
--- OUTSIDE RECORDS SUMMARY | 2020-06-08 10:38 | XMS REPORT | Continuity of Care Document ---
:1945 Author Organization [facility] t Address [address] [place] [address] Care Team Providers Name Role Phone Delfina VERDUGO, Salvatore Primary Care Physician [phone] Nestor Puente MD Attending Clinician NESTOR PUENTE Attending Clinician Unavailable Roxie Attending Clinician Payers Payer Name Policy Policy Number Effective Expiration Source Type Date Date AETNA - MEDICARE MGD xxxxxxxxxxxx [facility] CAREAETNA MEDICARE O Meghan kes - POSxxxxxxxxxxxxMaps Medic al [id number] [address] [address] Problems Condition Condition Condition Status Onset Resolution Last Treating Co mments Source Name Details Category Date Date Treatment Clinician Date 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 [place] a a 2-20 [facility] 00:00: st 00 Status Status Disease Active 2017-09 [facility] 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[facility] gastric gastric 00:00: st bypass for bypass for 00 obesity obesity Carpal Carpal Disease Active [facility] tunnel 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 00:00: st of right of right 00 wrist wrist Carpal Carpal Disease Active [facility] tunnel tunnel 1-19 [facility] syndrome syndrome 00:00: st on right on right 00 Cervical Cervical Disease Active 2017-0 [place] on spondylosi spondylosi 1-19 Ms thodi s with s with 00:00: st myelopathy myelopathy 00 and and radiculopa radiculopa thy thy Arthropath Arthropath Disease Active [place] y of right y of right 10-07 Ms thodi shoulder shoulder 00:00: st 00 Pain in Pain in Problem Active [facility] - shoulder shoulder [facility]ori a l [facility] Other Other Problem Active [facility] [...] both hands both hands Me moria l [facility] Encounter Encounter Problem Active [facility] for other for other Luke s - orthopedic orthopedic Me moria aftercare aftercare l [facility] Pain, Pain, Problem Active [facility] joint, joint, [facility] - hip, left hip, left Mauro javon l [facility] Closed Closed Problem Active [facility] displaced displaced Luke s - basicervic basicervic Ms moria al al l fracture fracture Outpat [...] nerve pain nerve pain Me moria l Outpati ent Clinics Pain in Pain in Diagnosis Active [facility] of [facility] - left knee left knee Mauro javon l [facility] Allergies, Adverse Reactions, Alerts Allergy [...] to heart drug attack Ibuprofe Propensi Active Hiv, Numbness [place] ty to Itching 10-07 in head [facility] adverse 00:00: st reaction 00 s to drug Etodolac Propensi Active Chest [place] ty to 10-07 pain [facility] adverse 00:00: st reaction 00 s to drug Ibuprofe Adverse Active HIVES [facility] n Reaction [facility] - [facility]oria l [facility] Amoxicil Adverse Active Info Not [facility] t lauren Reaction Available [facility] Demerol Adverse Active Info Not [facility] Reaction Available [facility] Family History Family Member Diagnosis Comments Start Date Stop Date Source Natural father Arthritis [facility] Natural father Asthma [facility] Natural father Diabetes [facility] Natural father Heart disease [place] [facility] Natural father Hypertension [facility] Natural mother Cancer [facility] Natural mother Gallbladder disease [place] [facility] Natural sister Diabetes [facility] Natural sister Gallbladder disease [place] [facility] Natural sister Heart disease [facility] Natural sister Hepatitis [facility] Natural sister Hypertension [facility] Social History Social Habit Start Date Stop Date Quantity Comments Source Sex Assigned At [facility] Tobacco use and 2018-09-07 2018-09-07 Never used [facility] ethodist exposure 00:00:00 00:00:00 Alcohol intake 2018-09-07 2018-09-07 Current [facility] thodist 00:00:00 00:00:00 non-drinker of alcohol (finding) Smoking Status Start Date Stop Date Source Never smoker [facility] t Medications Ordered Filled Start Stop Current [...] 18 daily. OMEGA-3 2017-09 Yes Take by [facility] FATTY 2-19 mouth. [facility] ACIDS/FISH 12:12: st OIL (FISH 18 OIL EXTRA STRENGTH ORAL) POTASSIUM 2017-09 Yes Take by [place] on CHLORIDE 2-19 mouth. OTC Metho di [...] [facility] - 00:00: Memoria 00 l Outpati ent Clinics spironolact Yes 25mg QD Take [...] [facility]ukes - MOUTH Memoria EVERY DAY l [facility] Xarelto Xarelto Yes Zach TAKE 1 [facility] [place] TABLET BY [facility] - MOUTH Memoria EVERY DAY l Outpati ent Clinics Sotalol HCl Sotalol HCl Yes Zach TAKE [address] [facility] [place] TABLET BY [facility] - MOUTH Memoria TWICE A l DAY [facility] Atorvastati Atorvastati Yes Zach TAKE [address] [facility] [address] n Calcium n Calcium [place] TABLET BY [facility] - MOUTH Memoria EVERY DAY l [facility] Procedures Procedure Date / Time Performed Performing Clinician Sour e SARS-COV2/RT-PCR ([facility] 2020-04-12 00:47:00 [facility] MR ABDOMEN WITH & 2019-10-05 10:06:00 Salvatore Puente [facility] er POCT-CREATININE 2019-10-05 09:28:00 Salvatore Puente [facility] Plan of Care Planned Activity Planned Date Details Comments Source Future Scheduled 2020-05-20 INFLUENZA VACCINE [place] [facility] 00:00:00 [code = INFLUENZA VACCINE] Future Scheduled 2010 65+ PNEUMOCOCCAL [place] [facility] Test 00:00:00 VACCINE (1 of 2 - PCV13) [code = 65+ PNEUMOCOCCAL VACCINE (1 of 2 - PCV13)] Future Scheduled 1995 BREAST CANCER [facility] thodist Test 00:00:00 SCREENING [code = BREAST CANCER SCREENING] Future Scheduled 1995 COLONOSCOPY SCREENING [facility] Test 00:00:00 [code = COLONOSCOPY SCREENING] Future Scheduled 1995 SHINGLES VACCINES (#1) [facility] Test 00:00:00 [code = SHINGLES VACCINES (#1)] Encounters Start End Encounter Admission Attending Care Care Encounter Source Date/Time Date/Time Type Type Clinicians Facility Department ID 2020-06-05 2020-06-[address] 08:41:00 08:41:00 2018-10-19 2018-10-19 [facility] [id number] 08:00:00 08:00:00 t [facility] 2018-08-28 2018-08-28 Outpatient Mercedes Galo [id number] 09:00:00 09:00:00 t [facility] 2018-05-02 2018-05-02 Outpatient Mercedes Longt [id number] 14:00:00 14:00:00 t [facility] 2018-04-06 2018-04-06 Outpatient Mercedes Longt [id number] 09:00:00 09:00:00 t [facility] Results Test Description Test Time Test Comments Results Result Comments Source SARS-CoV2/RT-PCR ([facility] & Ref Labs) 2020-04-12 08:30:00 Test Item Value Reference Range Interpretation Comme nts SARS-COV2/RT-PCR (test code = Negative Not Detected, 69371-3) Negative, See external report for linked test SARS-COV-2 PERFORMING LAB [facility] (test code = 32549-3) JIGAR (test code = JIGAR) Negative results [...] of the Act. Fact Sheet for Healthcare Providers:https://www.hopTo/Documents/Xpert%20Xpress %20SARS%20CoV-2/Fact%20Sheets /3023802%59XRMX-XTR-9%20HEAL THCARE%20PROVIDERS%20FACT%20S HEET.pdf Fact Sheet for Healthcare Patients:https://www.Highwinds/Documents/Xpert%20Xpress% 20SARS%20CoV-2/Fact%20Sheets/ 302-3801%17RBII-YPT-5%20PATIE NT%20FACT%20SHEET.pdf Performing Laboratory:[facility], [place] [address] [place], [place] [address]ARS-COV2/RT-PCR ([facility] REF LABS)2020-04-12 08:30:00 Test Item Value Reference Range Interpretation Comments SARS-COV2/RT-PCR (test code Negative Not Detected, Negative, = [id number]) See external report for linked test SARS-COV-2 PERFORMING LAB [facility] (test code = 0808543) Negative results do not preclude SARS-CoV-2 infection [...] of the Act.Fact Sheet for Healthcare Pro viders:https://www.Niche.Virtual DBS/Documents/Xpert%20Xpress%20SARS%20CoV-2/Fact%20Sh eets/302-3802%53RPCP-MOW-1%20HEALTHCARE%20PROVIDERS%20FACT%20SHEET.pdfFact Sheet for Healthcare Patients:https://www.Bluestone.com.Virtual DBS/Documents/Xpert%20Xpress%20SARS%20CoV-2/Fact%20Sheets/302-3801%20SARS-COV -2%20PATIENT%20FACT%20SHEET.pdfPerforming Laboratory:[facility], [place] [address]CF, ABDOMEN, [id number] 11:51:00 FINAL REPORT MRI of the abdomen [...] Mitchellort Verified Date/Time: 10/05/2019 11:51:38 Reading Location: [facility] Radiology Reading Room MR abdomen without & [...] Mitchell Verified Date/Time: 10/05/2019 11:51:38 Reading Location: [facility] Radiology Reading Room [id number] 09:33:00 Test Item Value Reference Range Interpretation Comments POC-Creatinine (test code 0.5 mg/dL 0.6-1.3 L TE STED AT [facility] = 1859) [address] [place] [address] POC-EGFR (test code = 121 mL/min/1.73M2 1860) Lab Interpretation (test Abnormal code = 52213-0) [facility] at [id number] 09:33:00 Test Item Value Reference Range Interpretation Comments POC-CREATININE 0.5 mg/dL 0.6-1.3 L TESTED AT [facility] 6720 (BEAKER) (test [address] [place] code = 1859) [address] POC-EGFR (BEAKER) 121 mL/min/1.73M2 (test code = 1860) MR, ABDOMEN, [id number] 07:30:00FINAL REPORT TECHNIQUE: MRI of the abdomen [...] MDReport Verified Date/Time: 05/29/2019 07:30:48 Reading Location: [facility] Diagnostic Imaging Reading Room - [place] [address] [id number] 09:35:00 Test Item Value Reference Range Interpretation Comments POC-CREATININE 0.6 mg/dL 0.6-1.3 TESTED AT [facility]-KG 2457 ([facility]) (test [facility] code = 1859) [address] POC-EGFR ([facility]) Insufficie nt clinical data (test code = 1860) to calcul ate estimated GFR
[2020-06-08 11:09] LABS: Absolute Lymphocytes (CBC) 0.8 K/uL (0.7-4.9); Basophils % 0.3 % (0-1.3); Hematocrit 33.1 % (36.0-45.0); Lymphocytes % 7.4 % (15.3-44.8); MPV 10.1 fL (7.6-11.3); RBC Red Blood Cell Count 3.89 M/uL (3.86-4.86)
[2020-06-08 11:17] LABS: Protime INR 2.36
[2020-06-08] MEDS ORDERED: NA CHLORIDE 0.9% 1,000 ML ONE (11:22)
[2020-06-08] MEDS ORDERED: FOLIC ACID 5 MG/ML VIAL ONE (11:24)
[2020-06-08 11:29] LABS: Albumin 2.7 g/dL (3.4-5.0); Bilirubin Direct 0.3 mg/dL (0-0.2); Bilirubin Total 0.8 mg/dL (0.2-1.0); C-Reactive Protein 86.2 mg/L (<3.00); Magnesium 1.7 mg/dL (1.8-2.4); Protein, Total 6.6 g/dL (6.4-8.2); Troponin (Emerg Dept Use Only) 0.24 ng/mL (0.0-0.045)
[2020-06-08 11:31] LABS: Potassium 2.9 mmol/L (3.5-5.1)
--- NOTE | 2020-06-08 11:37 | RAD REPORT ---
EXAM DESCRIPTION: RAD - Chest Single View - 06/08/2020 11:06 am CLINICAL HISTORY: COUGH COMPARISON: April 05 TECHNIQUE: AP portable chest image was obtained 06/08/2020 11:06 am . FINDINGS: Lung volumes are reduced compared to the prior study. This accentuates a chronic interstit ial lung pattern. Minimal edema or infiltrate could be masked. No focal mass or consolidation. Heart and vasculature are normal. No measurable pleural effusion and no pneumothorax. No acute bony abnormality seen. No acute aortic findings suspected. IMPRESSION: Chronic interstitial lung pattern accentuated by shallow inspiration. No acute finding identified from the prior study.
--- NOTE | 2020-06-08 11:49 | EDPHYS ---
Physician Documentation [facility] Name: Sharla Tesfaye Age: 75 yrs Sex: Female : 1945 Arrival Date: 06/08/2020 Time: 10:38 Bed 16 Private MD: ED Physician Nigel Espinosa HPI: 06/08 11:36 This 75 yrs old Female presents to ER via EMS with complaints of S/S of dennys Possible Stroke. 11:36 The patient's problem is reported as altered mental status, a facial droop, on left, dennys paresthesias, in left upper extremity, in left lower extremity, dysphasia, dysphagia. Onset: The symptoms/episode began/occurred this morning, AWOKE THIS WAY. Duration: The episodes are intermittent. Context: the episode(s) was witnessed, by family. The symptoms are alleviated by nothing. The symptoms are aggravated by nothing. Associated signs and symptoms: Pertinent positives: confusion, lightheadedness. Severity of symptoms: At their worst the symptoms were mild moderate in the emergency department the symptoms are unchanged. Patient's baseline: Neuro: alert and fully oriented. The patient has experienced similar episodes in the past, a few times. Historical: - Allergies: 11:07 Amoxicillin; ca1 11:07 Codeine; ca1 11:07 annaprox; ca1 11:07 Demerol; ca1 11:07 Etodolac; ca1 11:07 Ibuprofen; ca1 - Home Meds: 12:28 Xarelto 20 mg Oral tab 1 tab once daily [Active]; ca1 - PMHx: 11:07 Atrial Fib; High Cholesterol; Hypertension; ca1 12:28 CVA; ca1 - PSHx: 11:07 Gastric Bypass; Cholecystectomy; Knee surgery; Hysterectomy; Appendectomy; ca1 Tonsillectomy; - Immunization history:: Adult Immunizations up to date. - Social history:: Smoking status: Patient denies any tobacco usage or history of. - Family history:: not pertinent. ROS: 11:36 Constitutional: Negative for fever, chills, and weight loss, Eyes: Negative for injury, dennys pain, redness, and discharge, ENT: Negative for injury, pain, and discharge, Neck: Negative for injury, pain, and swelling, Cardiovascular: Negative for chest pain, palpitations, and edema, Respiratory: Negative for shortness of breath, cough, wheezing, and pleuritic chest pain, Abdomen/GI: Negative for abdominal pain, nausea, vomiting, diarrhea, and constipation, Back: Negative for injury and pain, : Negative for injury, bleeding, discharge, and swelling, Skin: Negative for injury, rash, and discoloration, Psych: Negative for depression, anxiety, suicide ideation, homicidal ideation, and hallucinations, Allergy/Immunology: Negative for hives, rash, and allergies, Endocrine: Negative for neck swelling, polydipsia, polyuria, polyphagia, and marked weight changes, Hematologic/Lymphatic: Negative for swollen nodes, abnormal bleeding, and unusual bruising. 11:36 MS/extremity: Positive for decreased range of motion, pain, of the pelvis. 11:36 Neuro: Positive for altered mental status, gait disturbance, speech changes, weakness. Exam: 11:36 Radiologist reports: dr boogie jay cha 11:36 Constitutional: This is a well developed, well nourished patient who is awake, alert, and in no acute distress. Head/Face: Normocephalic, atraumatic. Eyes: Pupils equal round and reactive to light, extra-ocular motions intact. Lids and lashes normal. Conjunctiva and sclera are non-icteric and not injected. Cornea within normal limits. Periorbital areas with no swelling, redness, or edema. ENT: Nares patent. No nasal discharge, no septal abnormalities noted. Tympanic membranes are normal and external auditory canals are clear. Oropharynx with no redness, swelling, or masses, exudates, or evidence of obstruction, uvula midline. Mucous membranes moist. Neck: Trachea midline, no thyromegaly or masses palpated, and no cervical lymphadenopathy. Supple, full range of motion without nuchal rigidity, or vertebral point tenderness. No Meningismus. Chest/axilla: Normal chest wall appearance and motion. Nontender with no deformity. No lesions are appreciated. Cardiovascular: Regular rate and rhythm with a normal S1 and S2. No gallops, murmurs, or rubs. Normal PMI, no JVD. No pulse deficits. Respiratory: Lungs have equal breath sounds bilaterally, clear to auscultation and percussion. No rales, rhonchi or wheezes noted. No increased work of breathing, no retractions or nasal flaring. Abdomen/GI: Soft, non-tender, with normal bowel sounds. No distension or tympany. No guarding or rebound. No evidence of tenderness throughout. Back: No spinal tenderness. No costovertebral tenderness. Full range of motion. Skin: Warm, dry with normal turgor. Normal color with no rashes, no lesions, and no evidence of cellulitis. Psych: Awake, alert, with orientation to person, place and time. Behavior, mood, and affect are within normal limits. 11:36 Musculoskeletal/extremity: ROM: limited active range of motion due to pain, limited passive range of motion due to pain, in the pelvis, Circulation is intact in all extremities. Sensation intact. Compartment Syndrome exam of affected extremity: is normal. DVT Exam: No signs of deep vein thrombosis. no swelling, no tenderness, negative Homans' sign noted on exam, no appreciated bluish discoloration, no erythema, no increased warmth, pain. 11:36 Neuro: Orientation: appropriate for stated age, Mentation: slow to respond, confused, Memory: unable to test, Cranial nerves: is grossly normal based on the patient's age, no acute changes, Cerebellar function: unable to test, Motor: moves all fours, Sensation: no obvious gross deficits, appropriate no acute changes, Gait: not tested. Babinski testing is normal, seizure activity, is not displayed by the patient. 11:48 ECG was reviewed by the Attending Physician. [facility] Vital Signs: 10:39 BP 109 / 45; Pulse 82; Resp 16 S; Temp 97.9(TE); Pulse Ox 94% on R/A; Weight 58.97 kg ca1 (R); Height 5 ft. 4 in. (162.56 cm) (R); 11:30 BP 116 / 51; Pulse 73; Resp 18; Pulse Ox 98% on R/A; rb1 12:10 BP 110 / 59; Pulse 78; Resp 19 S; Pulse Ox 94% on R/A; ca1 13:08 BP 107 / 87; Pulse 77; Resp 18 S; Pulse Ox 95% on R/A; ca1 10:39 Body Mass Index 22.31 (58.97 kg, 162.56 cm) ca1 NIH Stroke Scale Scores: 11:05 NIHSS Score: 2 ca1 MDM: 10:47 Patient medically screened. [facility] 11:43 Data reviewed: vital signs, nurses notes, old medical records, lab test result(s), EKG, [facility] radiologic studies, CT scan, plain films. Data interpreted: lead javascript engineer: rate is 73 beats/min, rhythm is regular, Pulse oximetry: on room air is 98 %. Test interpretation: by ED physician or midlevel provider: ECG, plain radiologic studies. Counseling: I had a detailed discussion with the patient and/or guardian regarding: the historical points, exam findings, and any diagnostic results supporting the discharge/admit diagnosis, lab results, radiology results, the need to transfer to another facility, for higher level of care, [facility] does not immediately have the required specialist. ED course: acute ms changes, left side weakness on off this morning, on xarelto now, hx a fib, had watchman procedute, 45 days ago, dr woods. 06/08 10:53 Order name: Basic Metabolic Panel; Complete Time: 11:33 [facility] 06/08 10:53 Order name: CBC with Diff; Complete Time: 12:03 [facility] 06/08 10:53 Order name: LFT's; Complete Time: 11: [facility] 06/08 10:53 Order name: Magnesium; Complete Time: 11: [facility] 06/08 10:53 Order name: NT PRO-BNP; Complete Time: 11:33 [facility] 06/08 10:53 Order name: PT-INR; Complete Time: 11: [facility] 06/08 10:53 Order name: Troponin (emerg Dept Use Only); Complete Time: 11:33 [facility] 06/08 10:53 Order name: XRAY Chest (1 view); Complete Time: 12:03 [facility] 06/08 10:53 Order name: Sed Rate; Complete Time: 12:03 [facility] 06/08 10:53 Order name: CRP; Complete Time: 11:33 [facility] 06/08 10:57 Order name: Ct Stroke Brain Wo Cont [facility] 06/08 11:14 Order name: Glucose, Ancillary Testing; Complete Time: 11: [facility] 06/08 13:02 Order name: Urine Dipstick--Ancillary (enter results) 06/08 10:53 Order name: EKG; Complete Time: 10:54 [facility] 06/08 10:53 Order name: Cardiac monitoring; Complete Time: 11:09 [facility] 06/08 10:53 Order name: EKG - Nurse/Tech; Complete Time: 11:26 [facility] 06/08 10:53 Order name: IV Saline Lock; Complete Time: 11: [facility] 06/08 10:53 Order name: Labs collected and sent; Complete Time: 11: [facility] 06/08 10:53 Order name: O2 Per Protocol; Complete Time: 11: [facility] 06/08 10:53 Order name: O2 Sat Monitoring; Complete Time: 11: [facility] 06/08 10:53 Order name: Urine Dipstick-Ancillary (obtain specimen); Complete Time: 12:11 [facility] 06/08 11:16 Order name: NPO; Complete Time: 11:16 [facility] 06/08 11:33 Order name: Trejo; Complete Time: 12:10 [facility] EC:48 Rate is 72 beats/min. Rhythm is regular. QRS [place] is Normal. [place] interval is normal. QRS dennys interval is normal. QT interval is normal. No Q waves. T waves are Normal. No ST changes noted. Clinical impression: NSR w/ Non-specific ST/T Changes and No evidence of ischemia. Interpreted by me. Reviewed by me. Administered Medications: Discontinued: NS 0.9% 1000 ml IV at 1 bolus Per protocol; 1000 mL bolus 11:04 Drug: NS 0.9% 1000 ml Route: IV; Rate: 1 bolus; Site: left antecubital; ca1 12:31 Follow up: Response: No adverse reaction; IV Status: Completed infusion ca1 11:10 Drug: foLIC Acid 1 mg Route: IVPB; Site: left antecubital; ca1 12:31 Follow up: Response: No adverse reaction; IV Status: Completed infusion ca1 11:36 Drug: Rocephin 1 grams Route: IV; Rate: per protocol; Site: left antecubital; ca1 12:00 Follow up: Response: No adverse reaction; IV Status: Completed infusion ca1 12:12 Drug: Magnesium Sulfate 1 grams Route: IVPB; Infused Over: 1 hrs; Site: left ca1 antecubital; 13:15 Follow up: Response: No adverse reaction; IV Status: Completed infusion; IV Intake: ca1 100ml 12:34 Drug: NS 0.9% with KCl 20 mEq/L 1000 ml Route: IV; Rate: 125 ml/min; Site: right wrist; ca1 13:32 Follow up: Response: No adverse reaction; IV Status: Infusion continued upon transfer ca1 12:36 Drug: Potassium Chloride 20 mEq Route: IV; Rate: per protocol; Site: right wrist; ca1 13:32 Follow up: Response: No adverse reaction; IV Status: Infusion continued upon transfer ca1 Point of Care Testing: Blood Glucose: 11:07 Blood Glucose: 122 mg/dL; ca1 Ranges: Critical Glucose Levels:Adult <50 mg/dl or >400 mg/dl <40 mg/dl or >180 mg/dl Disposition: 06/08/20 11:48 Transfer ordered to [facility]. Diagnosis are Altered mental status, unspecified, Transient cerebral ischemic attack, unspecified, Hypokalemia, Hypomagnesemia, Multiple fractures of pelvis without disruption of pelvic ring - bilateral superior and inferior pubic ramus fractures. - Reason for transfer: Higher level of care. - Accepting physician is to stroke center [facility] [place]. - Condition is Fair. - Problem is new. - Symptoms have improved. NIH Stroke Scale - NIH Stroke Score Date: 06/08/2020 Time: 11:05 Total Score = 2 1a. Level of Consciousness (LOC) - 0(Alert) 1b. Level of Consciousness (LOC) (Year \T\ Age) - 0(Both) 1c. LOC Commands (Open \T\ Closes Eyes/Printed Circuit [employer] Panels Trimmer) - 0(Both) 2. Best Gaze (Lateral Gaze Paresis) - 0(Normal) 3. Visual Field Loss - 0(No visual loss) 4. Facial Palsy - 1(Minor Paralysis) 5a. Left Arm: Motor (10-second hold) - 0(No drift) 5b. Right Arm: Motor (10-second hold) - 0(No drift) 6a. Left Leg: Motor (5-second hold - always test supine) - 0(No drift) 6b. Right Leg: Motor (5-second hold - always test supine) - 0(No drift) 7. Limb Ataxia (finger/nose \T\ heel/gutierrez - test with eyes open) - 0(Absent) 8. Sensory Loss (pinprick arms/legs/face) - 0(Normal) 9. Best Language: Aphasia (description/naming/reading) - 0(No aphasia) 10. Dysarthria (speech clarity - read or repeat words) - 1(Mild to Moderate) 11. Extinction and Inattention (visual/tactile/auditory/spatial/personal) - 0(No abnormality) Initials: ca1 Signatures: Dispatcher [employer] EDMS Jesús, Nigel, MD MD dennys Acob, Angela, RN RN ca1 Corrections: (The following items were deleted from the chart) 10:57 10:54 Head Brain Wo [id number] ordered. EDMS EDMS 13:57 11:48 06/08/2020 11:48 Transfer ordered to [facility]. Diagnosis ca1 is Altered mental status, unspecified; Transient cerebral ischemic attack, unspecified; Hypokalemia; Hypomagnesemia; Multiple fractures of pelvis without disruption of pelvic ring - bilateral superior and inferior pubic ramus fractures. Reason for transfer: Higher level of care. Accepting physician is to stroke center , [facility] [place]. Condition is Fair. Problem is new. Symptoms have improved. dennys
--- NOTE | 2020-06-08 11:49 | ER ---
Nurse's Notes [facility] Name: Sharla Tesfaye Age: 75 yrs Sex: Female : 1945 Arrival Date: 06/08/2020 Time: 10:38 Bed 16 Private MD: Diagnosis: Altered mental status, unspecified;Transient cerebral ischemic attack, unspecified;Hypokalemia;Hypomagnesemia;Multiple fractures of pelvis without disruption of pelvic ring-bilateral superior and inferior pubic ramus fractures Presentation: 06/08 10:39 Chief complaint: EMS states: Slurring of speech, Droop on L side of face, Weakness on L ca1 arm and L leg this morning when pt woke up 0700 this morning. weakness resolved, speech still slurred, L side of face still drooping. Family states symptoms comes and goes since this morning. Slept at 1030 PM last night, last seen well. Hx of stroke early this month, on the 27 of May denies residual deficits. C/O headache on the L side. Pt has pelvic fracture on Tuesday. A\\T\\Ox4 at this time. VAN negative. Coronavirus screen: Client denies travel out of the [place] in the last 14 days. At this time, the client does not indicate any symptoms associated with coronavirus-19. Ebola Screen: Patient negative for fever greater than or equal to 101.5 degrees Fahrenheit, and additional compatible Ebola Virus Disease symptoms Patient denies exposure to infectious person. Patient denies travel to an Ebola-affected area in the 21 days before illness onset. No symptoms or risks identified at this time. Initial Sepsis Screen: Does the patient meet any 2 criteria? No. Patient's initial sepsis screen is negative. Does the patient have a suspected source of infection? No. Patient's initial sepsis screen is negative. Risk Assessment: Do you want to hurt yourself or someone else? Patient reports no desire to harm self or others. Onset of symptoms was June 08, 2020 at 07:00. 10:39 Method Of Arrival: EMS: [facility] ca1 10:39 Acuity: JENNIFER 2 ca1 10:39 An acute neurological deficit is present. The charge nurse has been notified. ca1 Pre-hospital glucose is not applicable to this patient. Triage Assessment: 13:09 The onset of the patients symptoms was June 08, 2020 at 07:00. General: Appears in ca1 no apparent distress. Stroke Activation: Symptom onset > 6 hours Physician: Stroke Attending; Name: ; Notified At: ; Arrived At: Physician: Chief Stroke Resident; Name: ; Notified At: ; Arrived At: Physician: Stroke Resident; Name: ; Notified At: ; Arrived At: Physician: ED Attending; Name: ; Notified At: ; Arrived At: Physician: ED Resident; Name: ; Notified At: ; Arrived At: Historical: - Allergies: 11:07 Amoxicillin; ca1 11:07 Codeine; ca1 11:07 annaprox; ca1 11:07 Demerol; ca1 11:07 Etodolac; ca1 11:07 Ibuprofen; ca1 - Home Meds: 12:28 Xarelto 20 mg Oral tab 1 tab once daily [Active]; ca1 - PMHx: 11:07 Atrial Fib; High Cholesterol; Hypertension; ca1 12:28 CVA; ca1 - PSHx: 11:07 Gastric Bypass; Cholecystectomy; Knee surgery; Hysterectomy; Appendectomy; ca1 Tonsillectomy; - Immunization history:: Adult Immunizations up to date. - Social history:: Smoking status: Patient denies any tobacco usage or history of. - Family history:: not pertinent. Screenin:00 Abuse screen: Denies threats or abuse. Denies injuries from another. Nutritional ca1 screening: No deficits noted. Tuberculosis screening: No symptoms or risk factors identified. Fall Risk Fall in past 12 months (25 points). Secondary diagnosis (15 points) impaired mobility, CVA, IV access (20 points). Ambulatory Aid- None/Bed Rest/Nurse Assist (0 pts). Gait- Impaired (20 pts.). Total Santoro Fall Scale indicates High Risk Score (45 or more points). Fall prevention measures have been instituted. Side Rails Up X 2 Frequent Obs/Assessments Occuring As available patient and family educated on Fall Prevention Program and Strategies. Assessment: 10:40 VAN Scoring: Arm Drift: Patients demonstrates NO arm weakness. Patient is VAN Negative. ca1 10:54 Reassessment: pt back from CT via stretcher, with Angela ZAPATA. iw 11:17 Patient has been NPO before screening. The patient is alert, and able to follow ca1 commands. The patient exhibits slurred or garbled speech. Provider notified of the indication for Speech Therapy consult. The patient is not exhibiting difficulty speaking. The patient does not exhibit difficulty understanding words. The patient is able to swallow own secretions with no drooling or need for suction. Patient tolerated one teaspoon of water. No drooling, immediate coughing, gurgling, or clearing of the throat was noted. The patient did not tolerate 90mL of water. Drooling, immediate coughing, gurgling, or clearing of the throat was noted. Bedside swallow screening discontinued. Patient kept NPO until cleared by Speech Therapy or Physician. The patient failed the bedside swallow screening. The patient will be kept NPO until cleared by Speech Therapy or Physician. Provider notified of bedside swallow screening results: Nigel Espinosa MD. 11:20 General: Appears in no apparent distress. comfortable, Behavior is cooperative, ca1 appropriate for age, drowsy. Pain: Complains of pain in pelvis Pain currently is 5 out of 10 on a pain scale. Aggravated by repositioning. Neuro: Level of Consciousness is awake, obeys commands, Oriented to person, place, time, situation, [employer] Repairer are equal bilaterally Moves all extremities. Speech is slurred, Facial droop on left, Pupils are PERRLA, Intact Reports headache in left since this morning. Cardiovascular: Heart tones S1 S2 present Capillary refill < 3 seconds Patient's skin is warm and dry. Respiratory: Airway is patent Respiratory effort is even, unlabored, Respiratory pattern is regular, symmetrical, Breath sounds are clear bilaterally. 11:20 GI: Abdomen is flat, non-distended, Bowel sounds present X 4 quads. Abd is soft and non ca1 tender X 4 quads. : No signs and/or symptoms were reported regarding the genitourinary system. EENT: No signs and/or symptoms were reported regarding the EENT system. Derm: Skin is intact, is healthy with good turgor, Skin is pink, warm \\T\\ dry. Musculoskeletal: Circulation, motion, and sensation intact. Capillary refill < 3 seconds. 12:10 Reassessment: Patient appears in no apparent distress at this time. No changes from ca1 previously documented assessment. Patient and/or family updated on plan of care and expected duration. Pain level reassessed. 12:20 T-PA (Activase) Screening: Contraindications: Is the patient on Aspirin, Heparin, or ca1 Warfarin: Yes. 12:40 Reassessment: Patient appears in no apparent distress at this time. No changes from ca1 previously documented assessment. Pt states, "do you see that spider web?" pointing on the ceiling, none noticed. Pt appears to grasping objects in the air. Pt appears to be hallucinating. Notified Dr. Espinosa. 12:44 Reassessment: Called report to BENNY Magdaleno at [facility] Stroke Unit. ca1 13:31 Reassessment: Patient appears in no apparent distress at this time. No changes from ca1 previously documented assessment. Patient and/or family updated on plan of care and expected duration. Pain level reassessed. Vital Signs: 10:39 BP 109 / 45; Pulse 82; Resp 16 S; Temp 97.9(TE); Pulse Ox 94% on R/A; Weight 58.97 kg ca1 (R); Height 5 ft. 4 in. (162.56 cm) (R); 11:30 BP 116 / 51; Pulse 73; Resp 18; Pulse Ox 98% on R/A; rb1 12:10 BP 110 / 59; Pulse 78; Resp 19 S; Pulse Ox 94% on R/A; ca1 13:08 BP 107 / 87; Pulse 77; Resp 18 S; Pulse Ox 95% on R/A; ca1 10:39 Body Mass Index 22.31 (58.97 kg, 162.56 cm) ca1 NIH Stroke Scale Scores: 11:05 NIHSS Score: 2 ca1 ED Course: 10:38 Patient arrived in ED. iw 10:39 Angela Garcia, BENNY is Primary Nurse. ca1 10:47 Nigel Espinosa MD is Attending Physician. dennys 10:57 Ct Stroke Brain Wo Cont In Process Unspecified. EDMS 11:00 Patient has correct armband on for positive identification. Placed in gown. Bed in low ca1 position. Call light in reach. Side rails up X2. school bus monitor on. Pulse ox on. NIBP on. Warm blanket given. 11:03 Initial lab(s) drawn, by me, sent to lab. Inserted saline lock: 20 gauge in left ca1 antecubital area, using aseptic technique. Blood collected. 11:06 XRAY Chest (1 view) In Process Unspecified. EDMS 11:06 Triage completed. ca1 11:07 Arm band placed on right wrist. ca1 11:31 Notified ED physician of a critical lab result(s). K 2.9. ca1 11:[address] Espinosa with Marie Fisher from the [facility] Transfer. 12:08 administrative approval given by Marie Fisher Rn/ patient has been accepted to [facility] Stroke Unit/ Dr. Patel has accepted the patient in transfer/ report to be called to [phone]. 12:09 Trejo cath inserted, using sterile technique, 18 Fr., by ED staff, balloon inflated, to ca1 gravity drainage, urine specimen collected. returned doc urine. Patient tolerated well. 12:37 Inserted saline lock: 22 gauge in right wrist, using aseptic technique. Missed dh4 attempt(s): 22 gauge in right hand. 13:09 No provider procedures requiring assistance completed. Patient transferred, IV remains ca1 in place. Administered Medications: Discontinued: NS 0.9% 1000 ml IV at 1 bolus Per protocol; 1000 mL bolus 11:04 Drug: NS 0.9% 1000 ml Route: IV; Rate: 1 bolus; Site: left antecubital; ca1 12:31 Follow up: Response: No adverse reaction; IV Status: Completed infusion ca1 11:10 Drug: foLIC Acid 1 mg Route: IVPB; Site: left antecubital; ca1 12:31 Follow up: Response: No adverse reaction; IV Status: Completed infusion ca1 11:36 Drug: Rocephin 1 grams Route: IV; Rate: per protocol; Site: left antecubital; ca1 12:00 Follow up: Response: No adverse reaction; IV Status: Completed infusion ca1 12:12 Drug: Magnesium Sulfate 1 grams Route: IVPB; Infused Over: 1 hrs; Site: left ca1 antecubital; 13:15 Follow up: Response: No adverse reaction; IV Status: Completed infusion; IV Intake: ca1 100ml 12:34 Drug: NS 0.9% with KCl 20 mEq/L 1000 ml Route: IV; Rate: 125 ml/min; Site: right wrist; ca1 13:32 Follow up: Response: No adverse reaction; IV Status: Infusion continued upon transfer ca1 12:36 Drug: Potassium Chloride 20 mEq Route: IV; Rate: per protocol; Site: right wrist; ca1 13:32 Follow up: Response: No adverse reaction; IV Status: Infusion continued upon transfer ca1 Point of Care Testing: Blood Glucose: 11:07 Blood Glucose: 122 mg/dL; ca1 Ranges: Intake: 13:15 IV: 100ml; Total: 100ml. ca1 Output: 12:19 Urine: 800ml (Trejo); Total: 800ml. 4 Outcome: 11:48 ER care complete, transfer ordered by . dennys 13:31 Transferred by ground EMS to [facility], Transfer form completed. X-rays sent ca1 w/ patient. 13:31 Condition: stable 13:31 Instructed on the need for transfer. 13:57 Patient left the ED. ca1 NIH Stroke Scale - NIH Stroke Score Date: 06/08/2020 Time: 11:05 Total Score = 2 1a. Level of Consciousness (LOC) - 0(Alert) 1b. Level of Consciousness (LOC) (Year \\T\\ Age) - 0(Both) 1c. LOC Commands (Open \\T\\ Closes Eyes/Jewel Stripper) - 0(Both) 2. Best Gaze (Lateral Gaze Paresis) - 0(Normal) 3. Visual Field Loss - 0(No visual loss) 4. Facial Palsy - 1(Minor Paralysis) 5a. Left Arm: Motor (10-second hold) - 0(No drift) 5b. Right Arm: Motor (10-second hold) - 0(No drift) 6a. Left Leg: Motor (5-second hold - always test supine) - 0(No drift) 6b. Right Leg: Motor (5-second hold - always test supine) - 0(No drift) 7. Limb Ataxia (finger/nose \\T\\ heel/gutierrez - test with eyes open) - 0(Absent) 8. Sensory Loss (pinprick arms/legs/face) - 0(Normal) 9. Best Language: Aphasia (description/naming/reading) - 0(No aphasia) 10. Dysarthria (speech clarity - read or repeat words) - 1(Mild to Moderate) 11. Extinction and Inattention (visual/tactile/auditory/spatial/personal) - 0(No abnormality) Initials: ca1 Signatures: Dispatcher [employer] EDMS Nigel Espinosa MD MD cha Williams, Irene, RN RN iw Barber, Rebecca, RN RN rb1 Botello, Elizabeth eb Acob, Cheryl, RN RN ca1 Huhn, Donald [facility] Corrections: (The following items were deleted from the chart) 11:30 11:10 Inserted saline lock: 20 gauge in left antecubital area, using aseptic ca1 technique. Blood collected. ca1 11:30 11:10 Initial lab(s) drawn, by me, sent to lab. ca1 ca1
[2020-06-08] MEDS ORDERED: NS KCL 20MEQ 1,000 ML IV ONE (12:25)
[2020-06-08] MEDS ORDERED: KCL 20 MEQ/100 mL IVPB 20 MEQ/100 ML BAG IV ONE (12:26)
[2020-06-08] MEDS ORDERED: CEFTRIAXONE/SWI 1gm 1 GM/10 ML SYR ONE (12:26)
[2020-06-08] MEDS ORDERED: MAGNESIUM SULFATE 1 gm IVPB 1 GM/100 ML BAG IV ONE (12:26)
--- NOTE | 2020-06-08 12:49 | RAD REPORT ---
EXAM DESCRIPTION: CT - Ct Stroke Brain Wo Cont - 06/08/2020 11:55 am CLINICAL HISTORY: DECLINING STATE, right-sided extremity weakness COMPARISON: Head Brain Wo Cont dated 06/06/2020; Ct Stroke Brain Wo Cont dated 04/05/2020; Chest Singl e View dated 06/08/2020 TECHNIQUE: Axial 5 millimeter thick images of the head were obtained without IV contrast. All CT scans are performed using dose optimization technique as appropriate and may include automated exposure control or mA/KV adjustment according to patient size. FINDINGS: No intracranial hemorrhage, mass, or cerebral edema. No acute cortical based infarction. A trophy changes are similar to prior imaging. Diminished attenuation is seen throughout the cerebral w oracio matter. Focal 12 millimeter infarction seen in the white matter of the right frontoparietal junc tion similar to the June 06 study. No extra-axial fluid collections. Birch matter-white matter d ifferentiation is preserved.Ventricles are normal range in similar to comparison. Arterial and physio logic calcifications are present. Visualized portions of the mastoid air cells, paranasal sinuses, and orbits are unremarkable. Stroke protocol preliminary images were initially only available in the exception folder. No report c an be generated using this imaging folder. Findings were telephoned to the referring physician 10:57 a.m.. The preliminary report did not have the benefit of prior imaging. IMPRESSION: No intracranial hemorrhage and no acute cortical based infarction. Cerebral white matter chronic ischemic changes are present along with old infarction changes. Intracr anial findings are not clearly different from the June 06 study. Chronic ischemic changes can mask nonhemorrhagic acute infarction. MR brain followup can be obtained if there is ongoing concern for acute ischemia.
[2020-06-08 13:13] LABS: Urine Blood NEGATIVE (NEG); Urine Glucose NEGATIVE (NEG); Urine Protein NEGATIVE (NEG); Urine Specific Gravity 1.025 (1.005-1.030); Urine pH 5.5 (5.0-7.0)
[2020-06-08] MEDS ORDERED: NA CHLORIDE 0.9% 250 ML ONE (13:50)
[2020-06-08 14:12] VITALS: TEMP 97.9
[2020-06-08 14:16] VITALS: BP 107/87; O2SAT 95
== END 2020-06-08 13:57 | disposition short-term general hospital (02) ==
LOC: ER 10:34
DX: G45.9 Transient cerebral ischemic attack, unspecified (principal); E87.6 Hypokalemia; E83.42 Hypomagnesemia; S32.82XA Multiple fractures of pelvis without disruption of pelvic ring, initial encounter for closed fracture; I10 Essential (primary) hypertension; I48.91 Unspecified atrial fibrillation; R29.702 NIHSS score 2; Z79.01 Long term (current) use of anticoagulants; Z88.1 Allergy status to other antibiotic agents; Z88.5 Allergy status to narcotic agent; Z88.6 Allergy status to analgesic agent; Z88.8 Allergy status to other drugs, medicaments and biological substances; Z86.73 Personal history of transient ischemic attack (TIA), and cerebral infarction without residual deficits; Z98.84 Bariatric surgery status
CPT/HCPCS: 93005; 85025; 80048; 36415; 83735; 85610; 82947; 80076; 85652; 81003; 84484; 83880; 86140; 70450; 71045; 51702; 99285; J3480; J3475; J0696; J7050; J7030

== ENCOUNTER 2020-11-17 07:46 | Day surgery (SDC) | payer OTHER ==
[2020-11-17] MEDS ORDERED: Zoledronic Acid/Mannitol/Water 5 MG/100 ML INFUS.BOT IV ONE (08:00)
[2020-11-17 09:23] VITALS: BP 133/58; TEMP 98; O2SAT 97; BMI 24.5
== END 2020-11-17 09:35 | disposition home or self-care (01) ==
LOC: DS 07:46
PROVIDERS: ATTEND Internal Medicine
DX: M81.0 Age-related osteoporosis without current pathological fracture (principal); R13.10 Dysphagia, unspecified
CPT/HCPCS: 96365; J3489

== ENCOUNTER 2020-12-18 19:33 | Emergency (ER) | payer OTHER ==
--- OUTSIDE RECORDS SUMMARY | 2020-12-18 19:36 | XMS REPORT | Continuity of Care Document ---
:1945 Author Organization [facility] t Address [address] [place] [address] Care Team Providers Name Role Phone Delfina VERDUGO, Salvatore Primary Care Physician LAURA EARLY Attending Clinician Unavailable Payers Payer Name Policy Type Policy Effective Date Expiration Date Sour ce Number AET[employer] - MEDICARE [id number] 2018 GONZALO Abreu MGD CAREAETNA 00:00:00 - Medical MEDICARE HMO Center [id number] [address]Ydpi Contracted Problems Condition Condition Condition Status Onset Resolution Last Treating Co mments Source Name Details Category Date Date Treatment Clinician Date 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 [place] a a 2-20 [facility] 00:00: st 00 Status Status Disease Active 2017-09 [place] 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[facility] gastric gastric 00:00: st bypass for bypass for 00 obesity obesity Carpal Carpal Disease Active [place] 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 00:00: st of right of right 00 wrist wrist Carpal Carpal Disease Active [place] tunnel tunnel 10-07 [facility] syndrome syndrome 00:00: [...] [facility] - shoulder [facility] Other Other Problem Active [...] both hands both hands Me moria l [facility] Clinics Encounter Encounter Problem Active [facility] for other for other Luke s - orthopedic orthopedic Dc morimadi aftercare aftercare l [facility] Clin[facility] Pain, Pain, Problem Active [facility] joint, joint, [facility] - hip, left hip, left Mauro javon l [facility] Closed Closed Problem Active [facility] displaced displaced Luke s - basicervic basicervic Dc saulo al al l fracture fracture Outpat i of left of left ent femur with femur with Cl inics routine routine healing healing Pain in Pain in Diagnosis Active [facility] joint of joint of [facility] - right right Memoria wrist wrist l [facility] Left Left Problem Active [facility] sciatic sciatic Lukes - nerve pain nerve pain Me moria l [facility] Pain in Pain in Diagnosis Active [facility] - left knee left knee Mauro javon l [facility] Allergies, Adverse Reactions, Alerts [...] Adverse Active HIVES [facility] Reaction [facility] Amoxicil Adverse Active Info Not [facility] t lauren Reaction Available [facility] - Memoria l [facility]ics Demerol Adverse Active Info Not [facility] Reaction Available [facility] - Memoria l [facility] Clin[facility] Family History Family Member Diagnosis Comments Start Date Stop Date Source Natural sister Diabetes [place] [facility] Natural sister Gallbladder disease [facility] [place] Natural sister Heart disease [place] [facility] Natural sister Hepatitis [place] [facility] Natural sister Hypertension [place] [facility] Natural father Arthritis [place] [facility] Natural father Asthma [place] [facility] Natural father Diabetes [place] [facility] Natural father Heart disease [place] [facility] Natural father Hypertension [place] [facility] Natural mother Cancer [place] [facility] Natural mother Gallbladder disease [facility] [place] Social History Social Habit Start Date Stop Date Quantity Comments Source Tobacco use and 2018-09-07 2018-09-07 Never used [facility] ethodist exposure 00:00:00 00:00:00 Alcohol intake 2018-09-07 2018-09-07 Current [facility] thodist 00:00:00 00:00:00 non-drinker of alcohol (finding) Sex [birth year] [facility] ethodist 00:00:00 00:00:00 Smoking Status Start Date Stop Date Source Never smoker [facility] Medications Ordered Filled Start Stop Current Ordering [...] 18 daily. OMEGA-3 2017-09 Yes Take by [place] FATTY 2-19 mouth. Methodi ACIDS/FISH 12:12: st [...] - MOUTH Memoria TWICE A l DAY Outpati ent Clinics Atorvastati Atorvastati Yes Zach TAKE [address] [facility] n Calcium n Calcium Galvez TABLET BY Lukes - MOUTH Memoria EVERY DAY l Outpati ent Clinics Procedures Procedure Date / Time Performed Performing Clinician Sour e SARS-COV2/RT-PCR ([facility] 2020-04-12 00:47:00 [facility] Plan of Care Planned Activity Planned Date Details Comments Source Future Scheduled 2020-05-20 INFLUENZA VACCINE (#1) [facility] Test 00:00:00 [code = INFLUENZA Medical Ce nter VACCINE (#1)] Future Scheduled 2020-04-19 INFLUENZA VACCINE [place] [facility] Test 00:00:00 [code = INFLUENZA VACCINE] Future Scheduled 2019-09-[address] [facility] - Test 00:00:00 WELLNESS (YEAR 2 or Medical Center FIRST YEAR if no IPPE) [code = MEDICARE ANNUAL WELLNESS (YEAR 2 or FIRST YEAR if no IPPE)] Future Scheduled 2010 65+ PNEUMOCOCCAL [place] [facility] Test 00:00:00 VACCINE (1 of 1 - PPSV23) [code = 65+ PNEUMOCOCCAL VACCINE (1 of 1 - PPSV23)] Future Scheduled 2010 PNEUMOCOCCAL 65+ YRS [facility] - Test 00:00:00 (1 of 1 - Medical Center [id number] PCV13) [code = PNEUMOCOCCAL 65+ YRS (1 of 1 - [id number] PCV13)] Future Scheduled 1995 BREAST CANCER Madi Ochoa thodist Test 00:00:00 SCREENING [code = BREAST CANCER SCREENING] Future Scheduled 1995 COLONOSCOPY SCREENING [facility] Test 00:00:00 [code = COLONOSCOPY SCREENING] Future Scheduled 1995 SHINGLES VACCINES (#1) [facility] Test 00:00:00 [code = SHINGLES VACCINES (#1)] Future Scheduled 1963 Hepatitis C screening Ho jyoti [facility] Test 00:00:00 (procedure) [code = 348964422] Future Scheduled 1961 COVID-19 VACCINE (1) [facility] Test 00:00:00 [code = COVID-19 VACCINE (1)] Future Scheduled [address] - Test 00:00:00 malignant neoplasm of Medica l Center colon (procedure) [code = 748275782] Encounters Start End Encounter Admission Attending Care Care Encounter Source Date/Time Date/Time Type Type Clinicians Facility Department ID 2020-12-11 2020-12-11 Outpatient [facility] [id number] [facility] 07:33:00 07:33:00 2020-06-05 2020-06-05 Outpatient [facility] MED [id number] [facility] 08:41:00 08:41:00 2018-10-19 2018-10-19 [facility] [id number] [facility] 08:00:00 08:00:00 t [facility] 2018-08-28 2018-08-28 [facility] [id number] 09:00:00 09:00:00 t [facility] 2018-05-02 2018-05-02 [facility] [id number] 14:00:00 14:00:00 t [facility] 2018-04-06 2018-04-06 [facility] [id number] 09:00:00 09:00:00 t [facility] Results Test Description Test Time Test Comments Results Result Comments Source SARS-CoV2/RT-PCR ([facility] & Ref Labs) 2020-04-12 08:30:00 Test Item Value Reference Range Interpretation Comme nts SARS-COV2/RT-PCR (test code = Negative Not Detected, 09572-6) Negative, See external report for linked test SARS-COV-2 PERFORMING LAB [facility] (test code = 12912-7) JIGAR (test code = JIGAR) Negative results [...] of the Act. Fact Sheet for Healthcare Providers:https://www.Tribridge/Documents/Xpert%20Xpress %20SARS%20CoV-2/Fact%20Sheets /3023802%47LHST-DIG-6%20HEAL THCARE%20PROVIDERS%20FACT%20S HEET.pdf Fact Sheet for Healthcare Patients:https://www.Redfin Network/Documents/Xpert%20Xpress% 20SARS%20CoV-2/Fact%20Sheets/ 3023801%31GACV-EBY-0%20PATIE NT%20FACT%20SHEET.pdf Performing Laboratory[place] [place] [place] [address] [facility])2020-04-12 08:30:00 Test Item Value Reference Range Interpretation Comments SARS-COV2/RT-PCR (test code Negative Not Detected, Negative, = [id number]) See external report for linked test SARS-COV-2 PERFORMING LAB [facility] (test code = 0213031) Negative results do not preclude SARS-CoV-2 infection [...] of the Act.Fact Sheet for Healthcare Pro viders:https://www.Vigno/Documents/Xpert%20Xpress%20SARS%20CoV-2/Fact%20Sh eets/302-3802%62LAQO-UKS-2%20HEALTHCARE%20PROVIDERS%20FACT%20SHEET.pdfFact Sheet for Healthcare Patients:https://www.Ushahidi/Documents/Xpert%20Xpress%20SARS%20CoV-2/Fact%20Sheets/302-3801%20SARS-COV -2%20PATIENT%20FACT%20SHEET.pdfPerforming Laboratory:[facility] [place], [place] [address]ID, ABDOMEN, [id number] 11:51:00 FINAL REPORT MRI of the abdomen [...] intraductal papillary mucinous neoplasms (IPMN). Signed: Luciano Mitchelleport Verified Date/Time: 10/05/2019 11:51:38 Reading Location: [facility] Radiology Reading Room [id number] 09:33:00 Test Item Value Reference Range Interpretation Comments POC-CREATININE 0.5 mg/dL 0.6-1.3 L TESTED AT [facility] 6720 ([facility]) (test [facility] [place] code = 1859) [address] POC-EGFR ([facility]) 121 mL/min/1.73M2 (test code = 1860) MR, ABDOMEN, [id number] 07:30:00FINAL REPORT TECHNIQUE: MRI of the abdomen [...] MDReport Verified Date/Time: 05/29/2019 07:30:48 Reading Location: [facility] Diagnostic Imaging Reading Room - [place] [address] [id number] 09:35:00 Test Item Value Reference Range Interpretation Comments POC-CREATININE 0.6 mg/dL 0.6-1.3 TESTED AT [facility] 0117 ([facility]) (test [facility] code = 1859) [address] POC-EGFR (MATEUSZ) Insufficie nt clinical data (test code = 1860) to calcul ate estimated GFR
--- NOTE | 2020-12-18 20:33 | RAD REPORT ---
EXAM DESCRIPTION: CT - Head Brain Wo Cont - 12/18/2020 8:11 pm CLINICAL HISTORY: TRAUMA COMPARISON: Ct Stroke Brain Wo Cont dated 06/08/2020 TECHNIQUE: Axial 5 mm thick images of the head were obtained without IV contrast. All CT scans are performed using dose optimization technique as appropriate and may include automated exposure control or mA/KV adjustment according to patient size. FINDINGS: An acute right frontoparietal subdural hematoma is present. This extends minimally along t he lateral right temporal lobe. Subdural measures up to 10 mm in thickness. There is 5 mm of right to left midline shift. Patient has mild to moderate atrophy and prominent chronic ischemic change as a baseline. Ventricles are in proportion to volume loss. An acute cortical infarction is not seen. Mastoid air cells and visualized portions of the paranasal sinuses are clear. No skull fracture is present. There is right-sided small scalp hematoma and periorbital contusion and edema change. Findings telephoned to doctor Espinosa at 8:27 p.m.. IMPRESSION: Right frontoparietal acute subdural hematoma 10 mm in maximum thickness with 5 mm of rig ht to left midline shift. Underlying mild to moderate atrophy and advanced chronic ischemic change. Ventricles are in proporti on to volume loss.
--- NOTE | 2020-12-18 20:55 | EDPHYS ---
Physician Documentation [facility] Name: Sharla Tesfaye Age: 75 yrs Sex: Female : 1945 Arrival Date: 12/18/2020 Time: 19:34 Bed 27 Private MD: ED Physician Nigel Espinosa HPI: 12/18 20:36 This 75 yrs old Female presents to ER via Wheelchair with complaints of Fall jr8 Injury, Head Injury-Adult. 20:36 Details of fall: The patient fell from an upright position, while standing. Onset: The jr8 symptoms/episode began/occurred acutely, today. Associated injuries: The patient sustained injury to the head, right arm and right leg. Severity of symptoms: At their worst the symptoms were moderate, in the emergency department the symptoms are unchanged. The patient has not experienced similar symptoms in the past. The patient has not recently seen a physician. Patient stated that she fell but does not remember how. Complains of pain to head, right elbow, and right hip. Historical: - Allergies: 19:48 Amoxicillin; ca1 19:48 annaprox; ca1 19:48 Codeine; ca1 19:48 Demerol; ca1 19:48 Etodolac; ca1 19:48 Ibuprofen; ca1 - PMHx: 19:48 Atrial Fib; CVA; High Cholesterol; Hypertension; ca1 - PSHx: 19:48 Gastric Bypass; Cholecystectomy; Knee surgery; Hysterectomy; Appendectomy; ca1 Tonsillectomy; - Immunization history:: Client reports receiving the 2nd dose of the Covid vaccine, Pneumococcal vaccine is up to date, Flu vaccine is up to date. - Social history:: Smoking status: Patient denies any tobacco usage or history of. ROS: 20:36 Neck: Negative for injury, pain, and swelling, Cardiovascular: Negative for chest pain, jr8 palpitations, and edema, Respiratory: Negative for shortness of breath, cough, wheezing, and pleuritic chest pain, Abdomen/GI: Negative for abdominal pain, nausea, vomiting, diarrhea, and constipation, Back: Negative for injury and pain. 20:36 MS/extremity: Positive for pain, tenderness, of the right arm and right leg. 20:36 Neuro: Positive for altered mental status, headache. 12/19 00:06 All other systems are negative. jr8 Exam: 12/18 20:36 Eyes: Pupils equal round and reactive to light, extra-ocular motions intact. Lids and jr8 lashes normal. Conjunctiva and sclera are non-icteric and not injected. Cornea within normal limits. Periorbital areas with no swelling, redness, or edema. ENT: Nares patent. No nasal discharge, no septal abnormalities noted. Tympanic membranes are normal and external auditory canals are clear. Oropharynx with no redness, swelling, or masses, exudates, or evidence of obstruction, uvula midline. Mucous membranes moist. Neck: Trachea midline, no thyromegaly or masses palpated, and no cervical lymphadenopathy. Supple, full range of motion without nuchal rigidity, or vertebral point tenderness. No Meningismus. Chest/axilla: Normal chest wall appearance and motion. Nontender with no deformity. No lesions are appreciated. Cardiovascular: Regular rate and rhythm with a normal S1 and S2. No gallops, murmurs, or rubs. Normal PMI, no JVD. No pulse deficits. Respiratory: Lungs have equal breath sounds bilaterally, clear to auscultation and percussion. No rales, rhonchi or wheezes noted. No increased work of breathing, no retractions or nasal flaring. Abdomen/GI: Soft, non-tender, with normal bowel sounds. No distension or tympany. No guarding or rebound. No evidence of tenderness throughout. Back: No spinal tenderness. No costovertebral tenderness. Full range of motion. Skin: Warm, dry with normal turgor. Normal color with no rashes, no lesions, and no evidence of cellulitis. Neuro: Awake and alert, GCS 15, oriented to person, place, time, and situation. Cranial nerves II-XII grossly intact. Motor strength 5/5 in all extremities. Sensory grossly intact Head/face: Noted is ecchymosis, that is mild, of the right eye, hematoma, that is mild, of the right yazdanism. Musculoskeletal/extremity: Extremities: grossly normal except: noted in the right arm: Patient has hematoma to right anterior shoulder with mild tenderness. Full ROM present but with pain. Right elbow with pain, tenderness, and hematoma. Pain with ROM present. Rest of extremity unaffected. Right hip at the greater trochanteric region with tenderness and bruising noted. Full ROM present but again with pain. , Circulation is intact in all extremities. Pulses: noted to be 2+ in the right radial artery, right dorsalis pedis artery, left radial artery and left dorsalis pedis artery, Sensation intact. Vital Signs: 19:44 BP 125 / 66; Pulse 54; Resp 18 S; Temp 97.9(TE); Pulse Ox 99% on R/A; Weight 53.98 kg ca1 (R); Height 5 ft. 1 in. (154.94 cm) (R); Pain 8/10; 20:38 BP 136 / 72; Pulse 54; Resp 16; Pulse Ox 100% on R/A; jb4 21:00 BP 151 / 76; Pulse 59; Resp 16; Pulse Ox 100% on R/A; jb4 19:44 Body Mass Index 22.48 (53.98 kg, 154.94 cm) ca1 NIH Stroke Scale Scores: 20:46 NIHSS Score: 0 jr8 Irvine Coma Score: 19:48 Eye Response: spontaneous(4). Verbal Response: oriented(5). Motor Response: obeys jb4 commands(6). Total: 15. 20:38 Eye Response: spontaneous(4). Verbal Response: oriented(5). Motor Response: obeys jb4 commands(6). Total: 15. 20:46 Eye Response: spontaneous(4). Verbal Response: oriented(5). Motor Response: obeys jr8 commands(6). Total: 15. 21:00 Eye Response: spontaneous(4). Verbal Response: oriented(5). Motor Response: obeys jb4 commands(6). Total: 15. Trauma Score (Adult): 19:48 Eye Response: spontaneous(1); Verbal Response: oriented(1); Motor Response: obeys jb4 commands(2); Systolic BP: > 89 mm Hg(4); Respiratory Rate: 10 to 29 per min(4); Irvine Score: 15; Trauma Score: 12 20:38 Eye Response: spontaneous(1); Verbal Response: oriented(1); Motor Response: obeys jb4 commands(2); Systolic BP: > 89 mm Hg(4); Respiratory Rate: 10 to 29 per min(4); Irvine Score: 15; Trauma Score: 12 21:00 Eye Response: spontaneous(1); Verbal Response: oriented(1); Motor Response: obeys jb4 commands(2); Systolic BP: > 89 mm Hg(4); Respiratory Rate: 10 to 29 per min(4); Duane Score: 15; Trauma Score: 12 MDM: 19:54 Patient medically screened. 20:52 Data reviewed: vital signs, nurses notes, lab test result(s), EKG, radiologic studies, [facility] CT scan, plain films. Data interpreted: Pulse oximetry: on room air is 99 %. Interpretation: normal. Counseling: I had a detailed discussion with the patient and/or guardian regarding: the historical points, exam findings, and any diagnostic results supporting the discharge/admit diagnosis, lab results, radiology results, the need to transfer to another facility, [facility] does not immediately have the required specialist. 12/18 20:01 Order name: Basic Metabolic Panel; Complete Time: 22:22 12/18 20:01 Order name: CBC with Diff; Complete Time: 21:03 [facility] 12/18 20:01 Order name: LFT's; Complete Time: 22:22 [facility] 12/18 20:01 Order name: Magnesium; Complete Time: 22:22 12/18 20:01 Order name: NT PRO-BNP; Complete Time: 22:22 [facility] 12/18 20:01 Order name: PT-INR; Complete Time: 22:22 [facility] 12/18 20:01 Order name: Troponin (emerg Dept Use Only); Complete Time: 22:22 12/18 20:01 Order name: XRAY Chest (1 view) 12/18 20:01 Order name: EKG; Complete Time: 20:02 12/18 20:01 Order name: Cardiac monitoring; Complete Time: 20:56 12/18 20:01 Order name: CT Head Brain wo Cont; Complete Time: 20:34 12/18 20:30 Order name: XRAY Elbow RIGHT 3 view 12/18 20:30 Order name: XRAY Hip RIGHT 2 view 12/18 20:01 Order name: EKG - Nurse/Tech; Complete Time: 20:57 12/18 20:01 Order name: IV Saline Lock; Complete Time: 21:23 [facility] 12/18 20:01 Order name: Labs collected and sent; Complete Time: 21:23 [facility] 12/18 20:01 Order name: O2 Per Protocol; Complete Time: 20:57 jr8 12/18 20:01 Order name: O2 Sat Monitoring; Complete Time: 20:57 jr8 Administered Medications: 21:20 Drug: fentaNYL (PF) 25 mcg {Note: Administered by [facility] Nurse.} Route: IVP; Site: jb4 right antecubital; Disposition: 12/19 08:12 Co-signature as Attending Physician, Nigel Espinosa MD I agree with the assessment and dennys plan of care. Disposition: 12/18/20 20:54 Transfer ordered to [facility]. Diagnosis is Traumatic subdural hemorrhage. - Reason for transfer: Higher level of care. - Accepting physician is Dr. Hall. - Condition is Stable. - Problem is new. - Symptoms are unchanged. NIH Stroke Scale - NIH Stroke Score Date: 12/18/2020 Time: 20:46 Total Score = 0 1a. Level of Consciousness (LOC) - 0(Alert) 1b. Level of Consciousness (LOC) (Year \T\ Age) - 0(Both) 1c. LOC Commands (Open \T\ Closes Eyes/Rn Bone Marrow Transplant) - 0(Both) 2. Best Gaze (Lateral Gaze Paresis) - 0(Normal) 3. Visual Field Loss - 0(No visual loss) 4. Facial Palsy - 0(Normal) 5a. Left Arm: Motor (10-second hold) - 0(No drift) 5b. Right Arm: Motor (10-second hold) - 0(No drift) 6a. Left Leg: Motor (5-second hold - always test supine) - 0(No drift) 6b. Right Leg: Motor (5-second hold - always test supine) - 0(No drift) 7. Limb Ataxia (finger/nose \T\ heel/gutierrez - test with eyes open) - 0(Absent) 8. Sensory Loss (pinprick arms/legs/face) - 0(Normal) 9. Best Language: Aphasia (description/naming/reading) - 0(No aphasia) 10. Dysarthria (speech clarity - read or repeat words) - 0(Normal) 11. Extinction and Inattention (visual/tactile/auditory/spatial/personal) - 0(No abnormality) Initials: jr8 Signatures: Dispatcher [employer] EDNigel Shelton MD MD cha Roszak, Josh, PA PA jr8 Joshua Watson RN RN jb4 Angela Garcia RN RN ca1 Corrections: (The following items were deleted from the chart) 12/19 19: 20:46 Musculoskeletal/extremity: Extremities: noted in the R Lateral epicondyl jr8 hematoma: noted in the R proximal humoral head: noted in the R lateral illiac crest contusion: ROM: limited active range of motion, in the right arm and right leg, jr8 20:46 Neuro: Orientation: to person, place, time \T\ situation. Mentation: is jr8 normal, Memory: is normal, immediate memory is intact, recent memory is intact, remote memory is intact, Sensation: is normal, jr8 20:46 Abdomen/GI: Inspection: abdomen appears normal, Bowel sounds: normal, in jr8 all quadrants, Palpation: severe abdominal tenderness, in the right upper quadrant and right lower quadrant, jr8 20:46 Head/face: Noted is hematoma, that is severe, of the right eye and right jr8 yazdanism, jr8 20:46 Cardiovascular: Regular rate and rhythm with a normal S1 and S2. No jr8 gallops, murmurs, or rubs. Normal PMI, no JVD. No pulse deficits. Respiratory: Lungs have equal breath sounds bilaterally, clear to auscultation and percussion. No rales, rhonchi or wheezes noted. No increased work of breathing, no retractions or nasal flaring. jr8 20:55 20:54 12/18/2020 20:54 Transfer ordered to [facility]. Diagnosis jr8 is Traumatic subdural hemorrhage. Reason for transfer: Higher level of care. Accepting physician is Dr. Dukes. Condition is Stable. Problem is new. Symptoms are unchanged. jr8 21:28 20:55 12/18/2020 20:54 Transfer ordered to [facility]. Diagnosis jb4 is Traumatic subdural hemorrhage. Reason for transfer: Higher level of care. Accepting physician is Dr. Hall. Condition is Stable. Problem is new. Symptoms are unchanged. jr8
--- NOTE | 2020-12-18 20:55 | ER ---
Nurse's Notes [facility] Name: Sharla Tesfaye Age: 75 yrs Sex: Female : 1945 Arrival Date: 12/18/2020 Time: 19:34 Bed 27 Private MD: Diagnosis: Traumatic subdural hemorrhage Presentation: 12/18 19:44 Chief complaint: Patient's son or daughter states: Daughter: My found her on ca1 the floor around 1700. She said she has been there around 1400/ Bruise on the R side of her body. R elbow, R hip, R face. Unable to recall how she fell. Pt on Plavix. Hit face on the floor. Coronavirus screen: Client denies travel out of the [place] in the last 14 days. At this time, the client does not indicate any symptoms associated with coronavirus-19. Ebola Screen: Patient negative for fever greater than or equal to 101.5 degrees Fahrenheit, and additional compatible Ebola Virus Disease symptoms Patient denies exposure to infectious person. Patient denies travel to an Ebola-affected area in the 21 days before illness onset. No symptoms or risks identified at this time. Initial Sepsis Screen: Does the patient meet any 2 criteria? No. Patient's initial sepsis screen is negative. Does the patient have a suspected source of infection? No. Patient's initial sepsis screen is negative. Risk Assessment: Do you want to hurt yourself or someone else? Patient reports no desire to harm self or others. Onset of symptoms was December 18, 2020. 19:44 Method Of Arrival: Wheelchair ca1 19:44 Method Of Arrival: Wheelchair ca1 19:44 Acuity: JENNIFER 2 ca1 Trauma Activation: Alert Physician: ED Physician; Name: ; Notified At: ; Arrived At: Physician: General Surgeon; Name: ; Notified At: ; Arrived At: Physician: Radiology; Name: ; Notified At: ; Arrived At: Physician: Respiratory; Name: ; Notified At: ; Arrived At: Physician: Lab; Name: ; Notified At: ; Arrived At: Historical: - Allergies: 19:48 Amoxicillin; ca1 19:48 annaprox; ca1 19:48 Codeine; ca1 19:48 Demerol; ca1 19:48 Etodolac; ca1 19:48 Ibuprofen; ca1 - PMHx: 19:48 Atrial Fib; CVA; High Cholesterol; Hypertension; ca1 - PSHx: 19:48 Gastric Bypass; Cholecystectomy; Knee surgery; Hysterectomy; Appendectomy; ca1 Tonsillectomy; - Immunization history:: Client reports receiving the 2nd dose of the Covid vaccine, Pneumococcal vaccine is up to date, Flu vaccine is up to date. - Social history:: Smoking status: Patient denies any tobacco usage or history of. Screenin:00 Abuse screen: Denies threats or abuse. Nutritional screening: No deficits noted. jb4 Tuberculosis screening: No symptoms or risk factors identified. Fall risk Intervention for positive screen: ED Physician notified. Primary Survey: 19:48 NO uncontrolled hemorrhage observed. A: The patient is alert. Airway: patent, No jb4 supplemental oxygen in use on arrival. Oral cavity: clear, gag reflex present, Trachea midline. Breathing/Chest: Respiratory pattern: regular, Respiratory effort: spontaneous, unlabored, Chest inspection: symmetrical rise and fall of the chest. Circulation: Skin color: pink, Skin temperature: warm, dry. Disability Alert. Exposure/Environment: All clothing and personal items were removed. Forensic evidence collection is not deemed to be indicated at this time. Items placed in patient belonging bag. 20:45 Reassessment Airway Airway Patent Oxygen No O2 Oral cavity Clear +Gag reflex jb4 Breathing/Chest Respiratory pattern Regular Respiratory effort Spontaneous Unlabored Chest inspection Symmetrical Circulation Color [place] Temperature Warm Dry Disability Alert. Assessment: 19:48 General: Appears in no apparent distress. uncomfortable, Behavior is calm, cooperative, jb4 appropriate for age. Pain: Complains of pain in face and right arm,right ribs Pain does not radiate. Pain currently is 10 out of 10 on a pain scale. Neuro: Level of Consciousness is awake, alert, obeys commands, Oriented to person, place, time, situation. EENT: No signs and/or symptoms were reported regarding the EENT system. Cardiovascular: Patient's skin is warm and dry. Respiratory: Airway is patent Respiratory effort is even, unlabored, Respiratory pattern is regular, symmetrical. GI: No signs and/or symptoms were reported involving the gastrointestinal system. : No signs and/or symptoms were reported regarding the genitourinary system. Derm: Skin is intact, Skin is pink, warm \T\ dry. Musculoskeletal: Circulation, motion, and sensation intact. Range of motion:. 21:00 Reassessment: Patient appears in no apparent distress at this time. Patient and/or jb4 family updated on plan of care and expected duration. Pain level reassessed. Patient is alert, oriented x 3, equal unlabored respirations, skin warm/dry/pink. Vital Signs: 19:44 BP 125 / 66; Pulse 54; Resp 18 S; Temp 97.9(TE); Pulse Ox 99% on R/A; Weight 53.98 kg ca1 (R); Height 5 ft. 1 in. (154.94 cm) (R); Pain 8/10; 20:38 BP 136 / 72; Pulse 54; Resp 16; Pulse Ox 100% on R/A; jb4 21:00 BP 151 / 76; Pulse 59; Resp 16; Pulse Ox 100% on R/A; jb4 19:44 Body Mass Index 22.48 (53.98 kg, 154.94 cm) ca1 [place] Coma Score: 19:48 Eye Response: spontaneous(4). Verbal Response: oriented(5). Motor Response: obeys jb4 commands(6). Total: 15. 20:38 Eye Response: spontaneous(4). Verbal Response: oriented(5). Motor Response: obeys jb4 commands(6). Total: 15. 20:46 Eye Response: spontaneous(4). Verbal Response: oriented(5). Motor Response: obeys jr8 commands(6). Total: 15. 21:00 Eye Response: spontaneous(4). Verbal Response: oriented(5). Motor Response: obeys jb4 commands(6). Total: 15. Trauma Score (Adult): 19:48 Eye Response: spontaneous(1); Verbal Response: oriented(1); Motor Response: obeys jb4 commands(2); Systolic BP: > 89 mm Hg(4); Respiratory Rate: 10 to 29 per min(4); Duane Score: 15; Trauma Score: 12 20:38 Eye Response: spontaneous(1); Verbal Response: oriented(1); Motor Response: obeys jb4 commands(2); Systolic BP: > 89 mm Hg(4); Respiratory Rate: 10 to 29 per min(4); Duane Score: 15; Trauma Score: 12 21:00 Eye Response: spontaneous(1); Verbal Response: oriented(1); Motor Response: obeys jb4 commands(2); Systolic BP: > 89 mm Hg(4); Respiratory Rate: 10 to 29 per min(4); Duane Score: 15; Trauma Score: 12 NIH Stroke Scale Scores: 20:46 NIHSS Score: 0 [facility] ED Course: 19:34 Patient arrived in ED. cl3 19:47 Triage completed. ca1 19:48 Arm band placed on right wrist. ca1 19:48 Patient has correct armband on for positive identification. Bed in low position. Call jb4 light in reach. Side rails up X 1. 19:48 Patient maintains SpO2 saturation greater than 95% on room air. Thermoregulation: warm jb4 blanket given to patient. 19:53 Maximus Morin PA is PHCP. jr8 19:53 Nigel Espinosa MD is Attending Physician. jr8 20:21 CT Head Brain wo Cont In Process Unspecified. EDMS 20:30 Joshua Watson, RN is Primary Nurse. jb4 20:33 initiated a transfer with Amaya Estes from [facility] 20:53 administrative approval given by Amaya Estes/ patient has been accepted to [address] to the Neuro ICU/ Dr. Hall has accepted the patient in transfer/ report to be called to [phone]. 20:55 [facility] ETA 10 minutes. mw2 21:15 Inserted saline lock: 18 gauge in right antecubital area, using aseptic technique. jb4 21:21 XRAY Chest (1 view) In Process Unspecified. EDMS 21:21 XRAY Elbow RIGHT 3 view In Process Unspecified. EDMS 21:21 XRAY Hip RIGHT 2 view In Process Unspecified. EDMS 21:25 Notified ED physician of a critical lab result(s). potassium of 2.9 Dr Jesús banuelos notified. 21:45 No provider procedures requiring assistance completed. Patient transferred, IV remains jb4 in place. Administered Medications: 21:20 Drug: fentaNYL (PF) 25 mcg {Note: Administered by [facility] Nurse.} Route: IVP; Site: jb4 right antecubital; Intake: 21:00 PO: 0ml; Total: 0ml. jb4 Output: 21:00 Urine: 0ml; Total: 0ml. jb4 Outcome: 20:54 ER care complete, transfer ordered by MD. jr8 21:28 Patient left the ED. jb4 21:45 Transferred by helicopter to [facility], Transfer form completed. X-rays sent jb4 w/ patient. 21:45 Condition: stable 21:45 Discharge instructions given to patient, family, Instructed on the need for transfer, Demonstrated understanding of instructions. 21:45 Patient's length of stay was not longer than 2 hours. NIH Stroke Scale - NIH Stroke Score Date: 12/18/2020 Time: 20:46 Total Score = 0 1a. Level of Consciousness (LOC) - 0(Alert) 1b. Level of Consciousness (LOC) (Year \T\ Age) - 0(Both) 1c. LOC Commands (Open \T\ Closes Eyes/Technical Sourcing Recruiter) - 0(Both) 2. Best Gaze (Lateral Gaze Paresis) - 0(Normal) 3. Visual Field Loss - 0(No visual loss) 4. Facial Palsy - 0(Normal) 5a. Left Arm: Motor (10-second hold) - 0(No drift) 5b. Right Arm: Motor (10-second hold) - 0(No drift) 6a. Left Leg: Motor (5-second hold - always test supine) - 0(No drift) 6b. Right Leg: Motor (5-second hold - always test supine) - 0(No drift) 7. Limb Ataxia (finger/nose \T\ heel/gutierrez - test with eyes open) - 0(Absent) 8. Sensory Loss (pinprick arms/legs/face) - 0(Normal) 9. Best Language: Aphasia (description/naming/reading) - 0(No aphasia) 10. Dysarthria (speech clarity - read or repeat words) - 0(Normal) 11. Extinction and Inattention (visual/tactile/auditory/spatial/personal) - 0(No abnormality) Initials: jrKei Signatures: Dispatcher [employer] EDMS Linda Harper RN RN bb Roszak, Josh, PA PA jr8 Joshua Watson RN RN jb4 Krupa Ramires mw2 Angela Garcia RN RN ca1 Lewis, Charde cl3
[2020-12-18 21:01] LABS: Absolute Lymphocytes (CBC) 0.8 K/uL (0.7-4.9); Basophils % 0.4 % (0-1.3); Hematocrit 35.6 % (36.0-45.0); Lymphocytes % 6.7 % (15.3-44.8); MPV 9.9 fL (7.6-11.3); RBC Red Blood Cell Count 4.32 M/uL (3.86-4.86)
[2020-12-18 21:07] LABS: Protime INR 1.09
[2020-12-18 21:21] LABS: ALT/SGPT 109 U/L (12-78); AST/SGOT 131 U/L (15-37); Albumin 2.8 g/dL (3.4-5.0); Alkaline Phosphatase 112 U/L (45-117); BUN Blood Urea Nitrogen 14 mg/dL (7-18); Bicarbonate 31 mmol/L (21-32); Bilirubin Direct 0.2 mg/dL (0-0.2); Bilirubin Total 0.5 mg/dL (0.2-1.0); Glucose Level 162 mg/dL (74-106); Magnesium 1.8 mg/dL (1.8-2.4); NT PRO-BNP 628 pg/mL (<450); Protein, Total 6.7 g/dL (6.4-8.2); Sodium Level 143 mmol/L (136-145); Troponin (Emerg Dept Use Only) < 0.02 ng/mL (0.0-0.045)
[2020-12-18 21:25] LABS: Potassium 2.9 mmol/L (3.5-5.1)
[2020-12-18] MEDS ORDERED: FENTANYL CITR 100 MCG/2 ML ONE (21:32)
--- NOTE | 2020-12-19 09:07 | RAD REPORT ---
EXAM DESCRIPTION: RAD - Hip Right 2 View - 12/18/2020 9:22 pm CLINICAL HISTORY: PAIN COMPARISON: Hip Right 2 View dated 01/28/2018; Pelvis Wo Cont dated 06/06/2020 FINDINGS: AP and frog-leg views of the right hip were obtained. Bones are diffusely osteopenic. No fracture or dislocation of the proximal femur. Right hip joint deg enerative changes are present similar to comparison. Right-sided superior and inferior pubic rami fra ctures are identified, appearing old and unchanged in alignment and positioning from the CT May 2020. SI joint degenerative changes are present. No AVN or focal head abnormality. IMPRESSION: Diffuse osteopenia with no fracture or acute proximal right femur finding. Old right side superior and inferior pubic rami fractures.
--- NOTE | 2020-12-19 09:08 | RAD REPORT ---
EXAM DESCRIPTION: RAD - Chest Single View - 12/18/2020 9:21 pm CLINICAL HISTORY: DYSPNEA, fall COMPARISON: Single-view chest May 2020 TECHNIQUE: AP portable chest image was obtained 12/18/2020 9:21 pm . FINDINGS: Fibrotic lung pattern matches comparison. No acute lung parenchymal process. Skin fold art ifacts are present over the chest. Pneumothorax is not identifiable. No measurable pleural effusion. Heart and vasculature are normal. No acute bony abnormality seen. No acute aortic findings suspected. IMPRESSION: No acute cardiopulmonary process. Fibrotic lung pattern matches comparison.
--- NOTE | 2020-12-19 09:08 | RAD REPORT ---
EXAM DESCRIPTION: RAD - Elbow Right 3 View - 12/18/2020 9:22 pm CLINICAL HISTORY: PAIN, fall, elbow pain COMPARISON: No comparisons FINDINGS: No fracture is identified and no elevated posterior fat pad. There is no dislocation or pe riosteal reaction noted. Surgical hardware is present in the lateral but condyle region. Bones are os teopenic. No suspicious soft tissue finding. IMPRESSION: Negative right elbow examination for acute finding.
[2020-12-19 15:26] VITALS: TEMP 97.9
[2020-12-19 15:27] VITALS: O2SAT 100
[2020-12-19 15:28] VITALS: BP 151/76
== END 2020-12-18 21:28 | disposition short-term general hospital (02) ==
LOC: ER 19:33
DX: S06.5X0A Traumatic subdural hemorrhage without loss of consciousness, initial encounter (principal); W18.30XA Fall on same level, unspecified, initial encounter; Y93.89 Activity, other specified; Y92.9 Unspecified place or not applicable; Z88.1 Allergy status to other antibiotic agents; Z88.5 Allergy status to narcotic agent; Z88.6 Allergy status to analgesic agent; Z88.8 Allergy status to other drugs, medicaments and biological substances; I10 Essential (primary) hypertension
CPT/HCPCS: 93005; 85025; 80048; 36415; 83735; 85610; 80076; 84484; 83880; 70450; 71045; 73502; 73080; 96374; 99285; J3010; G0390

== ENCOUNTER 2020-12-24 00:14 | Inpatient (IN) | payer OTHER ==
--- NOTE | 2020-12-23 16:26 | R.PREADM ---
PRE-ADMISSION SCREENING FORM SCREENING DATE AND TIME 12/22/2020 15:12 (CDT) ANTICIPATED REHAB ADMISSION DATE 12/23/2020 REFERRING FACILITY [facility] REFERRAL DATE AND TIME 12/19/20 REFERRAL OFFICE PHONE [phone] ACUTE ADMIT DATE 12/24/2020 Previous Rehabilitation(s): No. ACUTE SPRAY DRY OPERATOR/DC PROJECT LANDSCAPE ARCHITECT SANDY MOISE ATTENDING PHYSICIAN KEVEN CABRERA MD REFERRING PHYSICIAN KEVEN CABRERA MD REHAB FACILITY [facility] CLINICAL LIAISON Charissa Campo PHYSICIAN REVIEWER Dr. Luke Major M.D. MR# [id number] NAME FRANCE BAUMANN ADDRESS [address] [place] [address] PHONE [facility] [id number] DATE OF 1945 AGE 75 SSN# [id number] GENDER female MARITAL STATUS RACE unknown race ADMIT FROM 02 - [facility] PRE-HOSPITAL LIVING SETTING 01 - Home (private home/apt. board/care, assisted living, senior care, transitional living) HOME TYPE AND DETAILS Type of home: single family house # of levels in the residence: 1 # of steps to enter the residence: 1 # of steps within the residence: 1 PRE-HOSPITAL LIVING WITH Alone FAMILY SUPPORT Yes PRIMARY FAMILY CONTACT NAME ULISSES CHAUDHARY PRIMARY FAMILY CONTACT PHONE PRIMARY FAMILY CONTACT RELATIONSHIP Daughter PHONE PRIMARY FAMILY CONTACT ON ADM.? no IS PRIMARY FAMILY CONTACT AUTH. REP.? no 1ST EMERGENCY CONTACT ULISSES CHAUDHARY 1ST CONTACT PHONE 1ST CONTACT RELATIONSHIP Daughter PHONE 1ST CONTACT ON ADM. no IS 1ST CONTACT AUTH. REP.? no PHONE 2ND CONTACT ON ADM.? no PATIENT EMPLOYMENT STATUS Retired (for age) PATIENT EMPLOYER No Employer PAYOR INFORMATION: 1ST PAYOR NAME [employer] 1ST PAYOR PHONE 1ST PAYOR INJURY/ILLNESS DUE TO ACCIDENT? No ANOTHER GREEN PARTY RESPONSIBLE? No PRIMARY REHAB/ACUTE DIAGNOSIS: NON TRAUMATIC INFRACEREBRAL HEMORRHAGE ONSET DATE 12/18/2020 REHAB IMPAIRMENT CATEGORY (KATHIE): 01 Stroke (STR) MEETS 60% rule PRIMARY DIAGNOSIS-RELATED SURGERIES: N/A SUMMARY OF ACUTE HOSPITALIZATION: Pt. is a 75 yo Right-handed female of unknown race. On 12/18/2020 she was admitted to [facility] with diagnosis NON TRAUMATIC INFRACEREBRAL HEMORRH AGE. Her impairment category is Stroke 01 - Other Stroke (01.9). Pre-morbidly, Pt. was independent/mod-I in Locomotion, Safety Awareness, Endurance, and Self-Care; an d she had good Transfers Control and Sphincter Control. Currently, she has deficits of Locomotion, Balance, Transfers Control, and Endurance. Pt. is now referred to [facility] for acute in-patient rehabilitation in order to maximize patient's functional independence in activities of daily living, strength, ROM, and mobi lity. Patient has realistic goal of being discharged at assistance level 7-Ind to reside at Home with Pt s elf. PAST MEDICAL HISTORY A-FIB MILD DEMENTIA HYPERTENSION HYPERLIPIDEMIA PAST SURGICAL HISTORY: GASTRIC BYPASS HEART PROCEDURE KNEE REPLACEMENT MEDICATION ALLERGIES: ANAPROX CODINE DEMEROL AMOXICILLIN IBUPROFEN ENVIRONMENTAL ALLERGIES: - Substance Allergies None Known - Other Allergies None Known CODE STATUS: Full code WEIGHT/HEIGHT/BMI: WEIGHT 121 lbs BMI N/A DIET: - Diet Type Regular - Diet - Solid Texture Regular - Diet - Liquid Texture Regular - Tube Feed N/A REVIEW OF SYSTEMS: - Gen Alert and awake Lying in bed No apparent distress Oriented to: person, time, and place - Vital Signs Temperature: 98.2 F SBP/DBP: 124/67 Pulse: 67 Resp: 18 Vital signs stable, afebrile - CVS RRR VITAL SIGNS Temperature:98.2 F SBP/DBP: 124/67 Pulse: 67 Resp: 18 Vital signs stable, afebrile MEDICATIONS/TREATMENT: Other- See attached MAR (Medication Administration Record). CURRENT SPHINCTER CONTROL: Pre-hospital bladder status: unspecified # of bladder accidents in the last 7 days prior to screenin Pre-hospital bowel status: unspecified # of bowel accidents in the last 7 days prior to screenin Last Bowel Movement Date: 12/22/2020 CURRENT LOCOMOTION STATUS: distance walked 30' feet with rolling walker DETAILED CURRENT FUNCTIONAL STATUS: - Bladder accident frequency: 7-Ind - No accidents in the past 7 days - Bowel accident frequency: 7-Ind - No accidents in the past 7 days - Walking score based on distance walked: 0(N/A) - Wheelchair score based on distance traveled: 0(N/A) QI SCORES: - Self-Care A. Eating 06-Independent B. Oral hygiene 03-Partial/moderate assistance C. Toileting hygiene 02-Substantial/maximal assistance E. Shower/bathe self 03-Partial/moderate assistance F. Upper body dressing 02-Substantial/maximal assistance G. Lower body dressing 02-Substantial/maximal assistance H. Putting on/taking off footwear 88-Not attempted due to medical condition or safety concerns - Mobility A. Roll left and right 03-Partial/moderate assistance B. Sit to lying 03-Partial/moderate assistance C. Lying to sitting on side of bed 03-Partial/moderate assistance D. Sit to stand 03-Partial/moderate assistance E. Chair/[id number]-[id number] transfer 03-Partial/moderate assistance F. Toilet transfer 03-Partial/moderate assistance G. Car transfer 88-Not attempted due to medical condition or safety concerns I. Walk 10 feet 88-Not attempted due to medical condition or safety concerns J. Walk 50 feet with two turns 88-Not attempted due to medical condition or safety concerns K. Walk 150 feet 88-Not attempted due to medical condition or safety concerns L. Walking 10 feet on uneven surfaces 88-Not attempted due to medical condition or safety concerns M. 1 step (curb) 88-Not attempted due to medical condition or safety concerns N. 4 steps 88-Not attempted due to medical condition or safety concerns O. 12 steps 88-Not attempted due to medical condition or safety concerns P. Picking up object 88-Not attempted due to medical condition or safety concerns R. Wheel 50 feet with two turns 88-Not attempted due to medical condition or safety concerns S. Wheel 150 feet 88-Not attempted due to medical condition or safety concerns - Bladder and Bowel Bladder continence Bowel continence - Endurance Fair - Balance Fair - Safety Awareness Fair CURRENT FUNC. DEFICITS: Mobility, Endurance, Balance, Safety Awareness, and Self-Care CURRENT / PREVIOUS ASSISTIVE DEVICES: Rolling Walker Shower Chair HISTORY OF FALLS. HAS THE PATIENT HAD TWO OR MORE FALLS IN THE PAST YEAR OR ANY FALL WITH INJURY IN T HE PAST YEAR?: No PRIOR SURGERY. DID THE PATIENT HAVE MAJOR SURGERY DURING THE 100 DAYS PRIOR TO ADMISSION?: No THERAPY NOTES FROM ACUTE CARE: Attached. SPECIAL NEEDS: - Safety Concerns Skin breakdown precautions needed due to skin breakdown risk PATIENT NEEDS ACTIVE AND ONGOING THERAPEUTIC INTERVENTION OF MULTIPLE THERAPY DISCIPLINES, INCLUDING: - Occupational Therapy Cognitive Retraining. Visual Perceptual Training. - Dietary and Nutrition Adequate Nutrition. Nutritional Education. Nutritional Supplements. - Speech Therapy Cognitive Training. Expressive Language Skills. Memory Strategies. Receptive Language Skills. Speech Intelligibility Training. PATIENT NEEDS CLOSE MEDICAL SUPERVISION BY A REHABILITATION PHYSICIAN FOR: Coordination of Treatment Team PATIENT REQUIRES 24X7 REHAB NURSING FOR MEDICAL AND FUNCTIONAL MGT. OF THE FOLLOWING DEFICITS: Disease Management Medication Management Patient/Family Education Providing Safe Environment PATIENT REQUIRES INTENSIVE, COORDINATED INTERDISCIPLINARY APPROACH TO REHAB: Arranging Home Equipment/Services Discharge Planning Family Intervention/Training Derrick Car Operator/Case Management PATIENT REHAB POTENTIAL: Sidra BAUMANN is able and expected to receive 3 hours of individualized therapy daily on at least 5 of every 7 days Sidra BAUMANN's prognosis for significant practical improvement within a reasonable period of time anna ears Good Expected level of measurable improvement will be of a practical value to Sidra BAUMANN's functional ca pacity or adaptations to impairments Has a viable Discharge Plan Medically appropriate; condition is sufficiently stable to participate in intensive rehab program DISCHARGE PLAN: - Estimated Length of Stay (days) 17. - Consensus on plan Discharge plan has been discussed with primary caregiver. Patient/Family is in agreement with the jeremy n. Primary caregiver is in agreement with the plan. - Patient/Family Goals Return home independently. - Planned Living Setting Upon Discharge Home, to live alone. Transitional Living. Primary caregiver: Pt self. RECOMMENDED CARE LEVEL: IRF RECOMMENDATION DETAILS: Recommended Admission to Comprehensive Rehabilitation Program to Increase Functional [place] SCREENER'S COMPLETENESS CONFIRMATION: - Screening Confirmation The patient data collection on this preadmission screening form is finished PHYSICIANS REVIEW AND ADMISSION DETERMINATION Admit - Based on my review of the Pre-Admission Screening results, in my medical judgment and experie nce, I concur with the findings and recommend admission to [facility], as this patient requires an IRF level of care. SIGNATURE PANEL: Equity Director - [electronically] signed by Charissa Campo on 12/23/2020 at 15:19 (CDT) Equity Director - [electronically] signed by Josh Cortes PT on 12/23/2020 at 15:51 (CDT) Physician Reviewer - [electronically] signed by Dr. Luke Major M.D. on 12/23/2020 at 16:26 (CDT )
--- OUTSIDE RECORDS SUMMARY | 2020-12-24 00:18 | XMS REPORT | Continuity of Care Document ---
:1945 [facility] Organization [facility] t Address [address] [place] [address] Care Team Providers Name Role Phone Delfina VERDUGO, Salvatore Primary Care Physician [phone] LAURA EARLY Attending Clinician Unavailable Payers Payer Name Policy Type Policy Effective Date Expiration Date Sour ce Number [employer] - MEDICARE [id number] 2018 GONZALO Abreu MGD CAREAETNA 00:00:00 - Medical MEDICARE HMO Center [id number] [address]Blun Contracted Problems Condition Condition Condition Status Onset Resolution Last Treating Co mments Source Name Details Category Date Date Treatment Clinician Date 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 [place] a a 2-20 [facility] 00:00: st 00 Status Status Disease Active 2017-09 [place] 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[facility] gastric gastric 00:00: st bypass for bypass for 00 obesity obesity Carpal Carpal Disease Active [place] 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 00:00: st of right of right 00 wrist wrist Carpal Carpal Disease Active [place] tunnel tunnel 10-07 [facility] syndrome syndrome 00:00: [...] [facility] - shoulder shoulder [facility]ori a l [facility] Other Other Problem Active [...] both hands both hands Me moria l [facility] Clinics Encounter Encounter Problem Active [facility] other for other Luke s - orthopedic orthopedic Dc morimadi aftercare aftercare l [facility] Pain, Pain, Problem Active [facility] joint, joint, [facility] - hip, left hip, left Mauro javon l [facility]ics Closed Closed Problem Active [facility] displaced displaced Luke s - basicervic basicervic Dc saulo al al l fracture fracture Outpat i of left of left ent femur with femur with Cl inics routine routine healing healing Pain in Pain in Diagnosis Active [facility] of joint of [facility] - right right Memoria wrist wrist l [facility] Left Left Problem Active [facility] sciatic sciatic [facility] - nerve pain nerve pain Me moria l [facility] Pain in Pain in Diagnosis Active [facility] - left knee left knee Mauro javon l [facility] Clinics Allergies, Adverse Reactions, Alerts [...] St n Reaction [facility] - Memoria l [facility] Clinics Amoxicil Adverse Active Info Not [facility] t lauren Reaction Available [facility] - [facility] Demerol Adverse Active Info Not [facility] Reaction Available [facility] - [facility] Family History Family Member Diagnosis Comments Start Date Stop Date Source Natural father Heart disease [place] [facility] Natural father Hypertension [place] [facility] Natural father Arthritis [place] [facility] Natural father Asthma [place] [facility] thodist Natural father Diabetes [place] [facility] thodist Natural mother Cancer [facility] thodist Natural [facility] Natural sister Diabetes [place] [facility] Natural sister Gall[facility]adder [facility] Natural sister Heart disease [place] [facility] Natural sister Hepatitis [place] [facility] thodist Natural sister Hypertension [place] [facility] Social History Social Habit Start Date Stop Date Quantity Comments Source Tobacco use and 2018-09-07 2018-09-07 Never used [facility] ethodist exposure 00:00:00 00:00:00 Alcohol intake 2018-09-07 2018-09-[address] [facility] thodist 00:00:00 00:00:00 non-drinker of alcohol (finding) Sex [birth year] [facility] ethodist 00:00:00 00:00:00 Smoking Status Start Date Stop Date Source Never smoker [place] [facility] Medications Ordered Filled Start Stop Current Ordering [...] 18 daily. OMEGA-3 2017-09 Yes Take by [place] FATTY 2-19 mouth. Methodi ACIDS/FISH 12:12: st [...] Time Performed Performing Clinician Sour e SARS-COV2/RT-PCR ([facility] 2020-04-12 00:47:00 [facility] Plan of Care Planned Activity Planned Date Details Comments Source Future Scheduled 2020-05-20 INFLUENZA VACCINE (#1) [facility] Test 00:00:00 [code = INFLUENZA Medical Ce nter VACCINE (#1)] Future Scheduled 2020-04-19 INFLUENZA VACCINE [place] [facility] Test 00:00:00 [code = INFLUENZA VACCINE] Future Scheduled 2019-09-[address] [facility] - Test 00:00:00 WELLNESS (YEAR 2 or Medical Center FIRST YEAR if no IPPE) [code = MEDICARE ANNUAL WELLNESS (YEAR 2 or FIRST YEAR if no IPPE)] Future Scheduled 2010 65+ PNEUMOCOCCAL [place] [facility] Test 00:00:00 VACCINE (1 of 1 - PPSV23) [code = 65+ PNEUMOCOCCAL VACCINE (1 of 1 - PPSV23)] Future Scheduled 2010 PNEUMOCOCCAL 65+ YRS [facility] - Test 00:00:00 (1 of 1 - Medical Center [id number] PCV13) [code = PNEUMOCOCCAL 65+ YRS (1 of 1 - [id number] PCV13)] Future Scheduled 1995 BREAST CANCER Madi Ochoa [facility]odist Test 00:00:00 SCREENING [code = BREAST CANCER SCREENING] Future Scheduled 1995 [facility]OS[facility] Test 00:00:00 [code = COLONOSCOPY SCREENING] Future Scheduled 1995 SHINGLES VACCINES (#1) [facility] Test 00:00:00 [code = SHINGLES VACCINES (#1)] Future Scheduled 1963 Hepatitis C screening Ho jyoti [facility] Test 00:00:00 (procedure) [code = 636340986] Future Scheduled 1961 COVID-19 VACCINE (1) [facility] Test 00:00:00 [code = COVID-19 VACCINE (1)] Future Scheduled [address] [facility] - Test 00:00:00 malignant neoplasm of Medica l Center colon (procedure) [code = 017446151] Encounters Start End Encounter Admission Attending Care Care Encounter Source Date/Time Date/Time Type Type Clinicians Facility Department ID 2020-12-18 Inpatient U [facility] MED [id number] Mem oria 21:58:00 l [facility] 2020-12-11 2020-12-11 Outpatient [id number] 07:33:00 07:33:00 2020-06-05 2020-06-05 Outpatient [id number] 08:41:00 08:41:00 2018-10-19 2018-10-19 [facility] [id number] [address] 08:00:00 08:00:00 t [facility] 2018-08-28 2018-08-28 [facility] [id number] 09:00:00 09:00:00 t [facility] 2018-05-02 2018-05-02 [facility] [id number] 14:00:00 14:00:00 t [facility] 2018-04-06 2018-04-06 [facility] [id number] 09:00:00 09:00:00 t [facility] Results Test Description Test Time Test Comments Results Result Comments Source SARS-CoV2/RT-PCR ([facility] & Ref Labs) 2020-04-12 08:30:00 Test Item Value Reference Range Interpretation Comme nts SARS-COV2/RT-PCR (test code = Negative Not Detected, 54031-7) Negative, See external report for linked test SARS-COV-2 [facility] ([facility] code = 27178-0) JIGAR (test code = JIGAR) Negative results [...] of the Act. Fact Sheet for Healthcare Providers:https://www.PhoRent/Documents/Xpert%20Xpress %20SARS%20CoV-2/Fact%20Sheets /3023802%17XZEO-YWT-8%20HEAL THCARE%20PROVIDERS%20FACT%20S HEET.pdf Fact Sheet for Healthcare Patients:https://www.Swivl/Documents/Xpert%20Xpress% 20SARS%20CoV-2/Fact%20Sheets/ 3023801%99GFFV-FVM-0%20PATIE NT%20FACT%20SHEET.pdf Performing Laboratory:[facility] [place] [address] [facility] REF LAB[facility])2020-04-12 08:30:00 Test Item Value Reference Range Interpretation Comments SARS-COV2/RT-PCR (test code Negative Not Detected, Negative, = [id number]) See external report for linked test SARS-COV-2 PERFORMING LAB [facility] (test code = 6977117) Negative results do not preclude SARS-CoV-2 infection [...] of the Act.Fact Sheet for Healthcare Pro viders:https://www.InspireMD/Documents/Xpert%20Xpress%20SARS%20CoV-2/Fact%20Sh eets/3023802%26NXKB-WPT-2%20HEALTHCARE%20PROVIDERS%20FACT%20SHEET.pdfFact Sheet for Healthcare Patients:https://www.Contour Innovations/Documents/Xpert%20Xpress%20SARS%20CoV-2/Fact%20Sheets/3023801%20SARS-COV -2%20PATIENT%20FACT%20SHEET.pdfPerforming Laboratory:[facility], [place] [address]GY, ABDOMEN, [id number] 11:51:00 FINAL REPORT MRI of the abdomen [...] [place] Verified Date/Time: 10/05/2019 11:51:38 Reading Location: [facility] Radiology Reading Room [id number] 09:33:00 Test Item Value Reference Range Interpretation Comments POC-CREATININE 0.5 mg/dL 0.6-1.3 L TESTED AT [facility] ([facility]) (test [place] code = 1859) [address] POC-EGFR (inTarvo) 121 mL/min/1.73M2 (test code = 1860) MR, ABDOMEN, [id number] 07:30:00FINAL REPORT TECHNIQUE: MRI of the abdomen [...] [place] Verified Date/Time: 05/29/2019 07:30:48 Reading Location: [facility] Diagnostic Imaging Reading Room - [place] [address] [id number] 09:35:00 Test Item Value Reference Range Interpretation Comments POC-CREATININE 0.6 mg/dL 0.6-1.3 TESTED AT [facility] [address] ([facility]) (test [facility] code = 1859) [address] POC-EGFR ([facility]) Insufficie nt clinical data (test code = 1860) to calcul ate estimated GFR
[2020-12-24 02:10] LABS: Urine Appearance CLEAR (Clear); Urine Bilirubin NEGATIVE (Negataive); Urine Blood NEGATIVE (Negative); Urine Color YELLOW (Yellow); Urine Glucose NEGATIVE (Negative); Urine Protein NEGATIVE (Negative); Urine Urobilinogen 0.2 mg/dL (0.2-1.0); Urine pH 6.5 (5.0-7.0)
[2020-12-24 04:42] LABS: Urine Bacteria <20 /HPF (<20); Urine RBC <5 /HPF (NONE SEEN); Urine Urothelial Cells <5 /HPF (NONE SEEN)
[2020-12-24] MEDS: METOPROLOL TAR 25 MG TAB PO SCH ×2 (05:18→17:23)
[2020-12-24] MEDS: THYROID 30 MG TAB PO SCH (05:18)
[2020-12-24 06:25] LABS: Absolute Lymphocytes (CBC) 1.9 K/uL (0.7-4.9); Basophils % 1.1 % (0-1.3); Hematocrit 29.6 % (36.0-45.0); Lymphocytes % 29.2 % (15.3-44.8); MPV 9.9 fL (7.6-11.3)
[2020-12-24 06:34] LABS: Albumin 2.4 g/dL (3.4-5.0); BUN Blood Urea Nitrogen 18 mg/dL (7-18); Bicarbonate 29 mmol/L (21-32); Glucose Level 87 mg/dL (74-106); Magnesium 1.7 mg/dL (1.8-2.4); Prealbumin 12.8 mg/dL (20-40); Sodium Level 143 mmol/L (136-145)
[2020-12-24] MEDS ORDERED: LIDOCAINE 4% PATCH TOP SCH (08:00)
[2020-12-24] MEDS ORDERED: POTASSIUM CL SA 10 MEQ TAB PO SCH (08:00)
[2020-12-24] MEDS: CYANOCOBALAMIN 1,000 MCG TAB PO SCH (08:24)
[2020-12-24] MEDS: VITAMIN D 1000 UNIT TAB PO SCH (08:24)
[2020-12-24] MEDS: MEMANTINE HCL 10 MG TABLET PO SCH ×2 (08:25→19:06)
[2020-12-24] MEDS: ASPIRIN 81 MG CHEWABLE TABLET PO SCH (08:25)
[2020-12-24] MEDS: AMIODARONE HCL 200 MG TAB PO SCH ×2 (08:25→19:05)
[2020-12-24] MEDS: FAMOTIDINE 20 MG TAB PO SCH (08:25)
[2020-12-24] MEDS: levETIRAcetam 500 MG TAB PO SCH ×2 (08:26→19:06)
[2020-12-24] MEDS: TRAMADOL HCL 50 MG TAB PO PRN ×3 (08:27→19:07)
[2020-12-24] MEDS: MAGNESIUM OXIDE 400 MG TAB PO SCH ×2 (08:30→19:06)
[2020-12-24] MEDS ORDERED: GABAPENTIN 300 MG CAP PO SCH (09:00)
[2020-12-24] MEDS ORDERED: POTASSIUM CL SA 10 MEQ TAB PO ONE (13:31)
--- NOTE | 2020-12-24 14:52 | R.HP ---
HISTORY AND PHYSICAL FACILITY: [facility] ENCOUNTER DATE AND TIME: 12/24/2020 14:46 (CDT) MR#: [id number] NAME FRANCE BAUMANN ADDRESS: [address] [place] [address]: [place] [address] PHONE: DATE OF : 1945 AGE: 75 SSN# [id number] GENDER: Female DEXTERITY Right-handed MARITAL STATUS RACE Unknown race PRE-HOSPITAL LIVING SETTING 01 - Home (private home/apt. board/care, assisted living, mcc, transitional living) PRE-HOSPITAL LIVING WITH Alone ENCOUNTER PHYSICIAN: Dr. Luke Major M.D. REFERRING DOCTOR: KEVEN CABRERA MD DATE OF ADMISSION: 12/24/2020 00:05 (CDT) REFERRING FACILITY [facility] HOME TYPE AND DETAILS: Type of home: single family house # of levels in the residence: 1 # of steps to enter the residence: 1 # of steps within the residence: 1 ONSET DATE: 12/18/2020 PRIMARY DIAGNOSIS-RELATED SURGERIES: N/A HISTORY OF PRESENT ILLNESS (HPI): Pt. is a 75 yo Right-handed female of unknown race. On 12/18/2020 she was admitted to [facility] with diagnosis NON TRAUMATIC INFRACEREBRAL HEMORRH AGE. Her impairment category is Stroke 01 - Other Stroke (01.9). Pre-morbidly, Pt. was independent/mod-I in Locomotion, Safety Awareness, Endurance, and Self-Care; an d she had good Transfers Control and Sphincter Control. Currently, she has deficits of Locomotion, Balance, Transfers Control, and Endurance. Pt. is now referred to [facility] for acute in-patient rehabilitation in order to maximize patient's functional independence in activities of daily living, strength, ROM, and mobi lity. Patient has realistic goal of being discharged at assistance level 7-Ind to reside at Home with Pt s elf. MEDICATION ALLERGIES: ANAPROX CODINE DEMEROL AMOXICILLIN IBUPROFEN ENVIRONMENTAL ALLERGIES: - Substance Allergies None Known - Other Allergies None Known PAST MEDICAL HISTORY: A-FIB MILD DEMENTIA HYPERTENSION HYPERLIPIDEMIA PAST SURGICAL HISTORY: GASTRIC BYPASS HEART PROCEDURE KNEE REPLACEMENT SOCIAL HISTORY: - Home Living Alone REVIEW OF SYSTEMS: - Gen No Chills Fatigue No Fever - Eyes No Double Vision No itchiness - ENMT No Difficulty Swallowing - CVS Chest Discomfort No Chest Pain No Fatigue No Weight Gain - Resp No Cough No Shortness of Breath - GI Continent No Abdominal Pain No Constipation No Diarrhea - Continent No Kidney Pain No Painful Urination No Urinary Urgency - MSK Joint Pain Muscle Cramps Stiffness - Skin No Itching No Rash No Suspicious Lesions - Neuro Coordination Difficulty No Difficulty with Concentration No Memory Loss No Seizures Weakness - Psych No Anxiety No Depression No HIV Exposure No Persistent Infections No Seasonal Allergies - Endo No Cold/Heat Intolerance No Excessive Hunger No Excessive Thirst No Excessive Urination PHYSICAL EXAM - Gen Alert and awake Lying in bed No apparent distress Oriented to: person, time, and place - Skin Right face and upper extremity bruising from fall. Right face hematoma from fall. - Eyes Hematoma around right eye. - ENMT No abnormalities - Neck No stiffness - CVS RRR - Chest Clear - Resp No wheezing - Abd + bowel sounds - GI Non distended Deferred - No abnormalities - Ext No significant edema - MSK 4/5 weakness in all extremities. - Neuro 4/5 strength bilaterally upper and lower extremities. - Psych No abnormalities VITAL SIGNS Temperature: 97.4 F SBP/DBP: 102/47 Pulse: 56 Resp: 16 NURSING: - Shower allowing shower - Bladder care per protocol - Skin care per protocol ACTIVITIES OOB only with supervision QI SCORES: - Self-Care A. Eating 06-Independent B. Oral hygiene 03-Partial/moderate assistance C. Toileting hygiene 02-Substantial/maximal assistance E. Shower/bathe self 03-Partial/moderate assistance F. Upper body dressing 02-Substantial/maximal assistance G. Lower body dressing 02-Substantial/maximal assistance H. Putting on/taking off footwear 88-Not attempted due to medical condition or safety concerns - Mobility A. Roll left and right 03-Partial/moderate assistance B. Sit to lying 03-Partial/moderate assistance C. Lying to sitting on side of bed 03-Partial/moderate assistance D. Sit to stand 03-Partial/moderate assistance E. Chair/rck-ca-zopci transfer 03-Partial/moderate assistance F. Toilet transfer 03-Partial/moderate assistance G. Car transfer 88-Not attempted due to medical condition or safety concerns I. Walk 10 feet 88-Not attempted due to medical condition or safety concerns J. Walk 50 feet with two turns 88-Not attempted due to medical condition or safety concerns K. Walk 150 feet 88-Not attempted due to medical condition or safety concerns L. Walking 10 feet on uneven surfaces 88-Not attempted due to medical condition or safety concerns M. 1 step (curb) 88-Not attempted due to medical condition or safety concerns N. 4 steps 88-Not attempted due to medical condition or safety concerns O. 12 steps 88-Not attempted due to medical condition or safety concerns P. Picking up object 88-Not attempted due to medical condition or safety concerns R. Wheel 50 feet with two turns 88-Not attempted due to medical condition or safety concerns S. Wheel 150 feet 88-Not attempted due to medical condition or safety concerns - Bladder and Bowel Bladder continence Bowel continence - Endurance Fair - Balance Fair - Safety Awareness Fair CURRENT FUNC. DEFICITS: Mobility, Endurance, Balance, Safety Awareness, and Self-Care MEDICATIONS: - Other See attached MAR (Medication Administration Record) ASSESSMENT: Pt. is a 75 yo Right-handed female of unknown race.On 12/18/2020 she was admitted to [facility] with diagnosis NON TRAUMATIC INFRACEREBRAL HEMORRHAGE.Her impairment category is Stroke 01 - Other Stroke (01.9).Pre-morbidly, Pt. was independent/mod-I in Locomotion, Safety Awareness, Endurance, and Self-Care; and she had good Transfers Control and Sphincter Control.Currently, she has deficits of L ocomotion, Balance, Transfers Control, and Endurance.Pt. is now referred to [facility] for acute in-patient rehabilitation in order to maximize patient's functional independence i n activities of daily living, strength, ROM, and mobility.- Rehab Goal Patient has realistic goal of being discharged at assistance level 7-Ind to reside at Home with Pt s elf. REHAB PLAN: for Dementia, TBI, Stroke, or others - Physical Therapy Gait dysfunction - to improve, our physical therapists will perform initial evaluation of pt's status upon admission and devise an individualized program for Gait Training, and Wheel Chair mobility Inability to transfer - to improve, our physical therapists will perform initial evaluation of pt's s tatus upon admission and devise an individualized program for Bed mobility Need for home safety evaluation - to improve, our physical therapists will perform initial evaluation of pt's status upon admission and devise an individualized program for Home Evaluation Need in caregiver upon discharge - to improve, our physical therapists will perform initial evaluatio n of pt's status upon admission and devise an individualized program for Caregiver Training New precaution - to improve, our physical therapists will perform initial evaluation of pt's status u riki admission and devise an individualized program for Patient precaution education Edema - to improve, our physical therapists will perform initial evaluation of pt's status upon admi ssion and devise an individualized program for Elevation Training, and Lymphedema Therapy Poor balance - to improve, our physical therapists will perform initial evaluation of pt's status upo n admission and devise an individualized program for Balance Training Poor endurance - to improve, our physical therapists will perform initial evaluation of pt's status u riki admission and devise an individualized program for Endurance Training Weakness - to improve, our physical therapists will perform initial evaluation of pt's status upon ad mission and devise an individualized program for Aquatic Therapy, Neuromuscular Reeducation, and Stre ngthening Achieving independence - to improve, our physical therapists will perform initial evaluation of pt's status upon admission and devise an individualized program for Community Reintegration Activities - Occupational Therapy Need for health care coach - to improve, our occupation therapists will perform initial evaluation of pt's s tatus upon admission and devise an individualized program for Caregiver Training Weakness - to improve, our occupation therapists will perform initial evaluation of pt's status upon admission and devise an individualized program for Aquatic Therapy, Balance, Endurance, UE ROM, and U E strengthening MEDICAL PLAN: - Diet Type Start Regular - Diet - Liquid Texture Start Regular - Tube Feed Start N/A - Bladder care per protocol - Skin care per protocol - Other See attached MAR (Medication Administration Record) - Diet - Solid Texture Regular - Shower shower DISCHARGE PLAN: - Estimated Length of Stay (days) 17. - Consensus on plan Discharge plan has been discussed with primary caregiver. Patient/Family is in agreement with the jeremy n. Primary caregiver is in agreement with the plan. - Patient/Family Goals Return home independently. - Planned Living Setting Upon Discharge Home, to live alone. Transitional Living. Primary caregiver: Pt self. SIGNATURE PANEL: (CDT)
--- NOTE | 2020-12-24 14:54 | PAPE ---
POST ADMISSION PHYSICIAN EVALUATION PATIENT: [facility] MR# [id number] REFERRING DOCTOR KEVEN CABRERA MD EVALUATION DATE AND TIME 12/24/2020 14:52 (CDT) NAME FRANCE BAUMANN DATE OF 1945 AGE 75 PHONE N# [id number] GENDER female EVALUATING PHYSICIAN Dr. Luke Major M.D. ADMISSION DIAGNOSIS: NON TRAUMATIC INFRACEREBRAL HEMORRHAGE ONSET DATE 12/18/2020 POST-ADMISSION FUNCTIONAL/MEDICAL STATUS: - Bladder Same accident frequency: 7-Ind - No accidents in the past 7 days - Bowel Same accident frequency: 7-Ind - No accidents in the past 7 days - Walking Same score based on distance walked: 0(N/A) - Wheelchair Same score based on distance traveled: 0(N/A) STATUS CHANGE EVALUATION: No change in Functional or Medical Status is identified compared with Pre-Admission screening. PATIENT NEEDS CLOSE MEDICAL SUPERVISION BY A REHABILITATION PHYSICIAN FOR: Coordination of Treatment Team PATIENT REQUIRES 24X7 REHAB NURSING FOR MEDICAL AND FUNCTIONAL MGT. OF THE FOLLOWING DEFICITS: Disease Management Medication Management Patient/Family Education Providing Safe Environment PATIENT REQUIRES INTENSIVE, COORDINATED INTERDISCIPLINARY APPROACH TO REHAB: Arranging Home Equipment/Services Discharge Planning Family Intervention/Training Photograph Retoucher/Case Management LIST OF IDENTIFIED AND POTENTIAL PROBLEMS: Alteration in leisure activities Bladder, Incontinence Bowel, Incontinence Infection, Actual or Potential Mobility Impaired Pain, Alteration in Comfort Self Care Deficit Skin Integrity, Actual or Potential Urinary Tract Infection (UTI), Actual or Potential PATIENT COULD BE AT RISK FOR COMPLICATIONS FROM ADVERSE MEDICAL CONDITIONS DUE TO HIS/HER COMORBIDITI ES AND THE RIGORS OF THE INTENSIVE REHABILLITATION PROGRAM. METHODS OR INTERVENTIONS TO AVOID COMPLIC ATIONS INCLUDE: - Bleeding Stroke patients assessed for lethargy or change in status. - Infection Clinical staff to assess and manage the signs and symptoms of infection including fever, redness, war mth, etc. - Urinary Tract Infection - Aspiration Clinical staff will assess and manage coughing, drooling, congestion. - Falls Patient will be evaluated for Fall Precautions and will be placed on Fall Precautions as indicated pe r protocol. - Skin Breakdown Nursing will assess skin daily using assessment tool and will place on Skin Breakdown Precautions as indicated per protocol. - Pain Clinical staff may employ non-medication methods such as massage, distraction, decrease stimulus, etc . as needed. Clinical staff will assess patient's pain level every shift per protocol to assess and e nsure pain management effectiveness. Medications will be given and the pain level re-assessed. PRELIMINARY PLAN OF CARE: - Physical Therapy Patient needs Physical Therapy for a daily minimum of 1.5 hours at least 5 out of 7 days, to improve: Mobility, Strengthening, Transfers, Stretching, ROM, Endurance, Ability to manage stairs, Gait, and Balance. - Speech Therapy Patient needs Speech Therapy for a daily minimum of 0.5 hours at least 5 out of 7 days, to improve: S wallowing, Cognition, Language Skills, and Compensatory Strategies. - Rehabilitation Nursing Patient requires 24x7 Rehabilitation Nursing for: Pain Issues, Identifying and preventing risk factor s, Monitoring and reporting current medical conditions, Assisting with ambulation and transfer, Yovana ting with all ADL-s, Teaching patients about disease process and medications, Family teaching, Provid ing safe environment, Bowel and Bladder Issues, Skin Integrity, and Medication Management. Patient needs Photograph Retoucher and/or Case Management for: Discharge Planning, Arranging Home Equipmen t or Services, and Family Interventions. - Dietary and Nutrition Services Patient needs Dietary and Nutrition Services for: Adequate Nutrition, Nutritional Supplements, and Nu tritional Education. - Occupational Therapy Patient needs Occupational Therapy for a daily minimum of 1.5 hours at least 5 out of 7 days, to impr ove Activities of Daily Living, including: Eating, Grooming, Bathing, Dressing, Toileting, Toilet Tra nsfers, Community Reintegration, Higher functional activities, Adaptive Equipment, Splinting, Househo ld Tasks, and Other activities as determined. QI SCORES: - Self-Care A. Eating 06-Independent B. Oral hygiene 03-Partial/moderate assistance C. Toileting hygiene 02-Substantial/maximal assistance E. Shower/bathe self 03-Partial/moderate assistance F. Upper body dressing 02-Substantial/maximal assistance G. Lower body dressing 02-Substantial/maximal assistance H. Putting on/taking off footwear 88-Not attempted due to medical condition or safety concerns - Mobility A. Roll left and right 03-Partial/moderate assistance B. Sit to lying 03-Partial/moderate assistance C. Lying to sitting on side of bed 03-Partial/moderate assistance D. Sit to stand 03-Partial/moderate assistance E. Chair/obz-zv-mthxn transfer 03-Partial/moderate assistance F. Toilet transfer 03-Partial/moderate assistance G. Car transfer 88-Not attempted due to medical condition or safety concerns I. Walk 10 feet 88-Not attempted due to medical condition or safety concerns J. Walk 50 feet with two turns 88-Not attempted due to medical condition or safety concerns K. Walk 150 feet 88-Not attempted due to medical condition or safety concerns L. Walking 10 feet on uneven surfaces 88-Not attempted due to medical condition or safety concerns M. 1 step (curb) 88-Not attempted due to medical condition or safety concerns N. 4 steps 88-Not attempted due to medical condition or safety concerns O. 12 steps 88-Not attempted due to medical condition or safety concerns P. Picking up object 88-Not attempted due to medical condition or safety concerns R. Wheel 50 feet with two turns 88-Not attempted due to medical condition or safety concerns S. Wheel 150 feet 88-Not attempted due to medical condition or safety concerns - Bladder and Bowel Bladder continence Bowel continence - Endurance Fair - Balance Fair - Safety Awareness Fair POTENTIAL FUNCTIONAL GOALS FOR PATIENT TO ACHIEVE BY DISCHARGE: - Safety Precaution Patient will remain free from falls or injury at time of discharge. - Bed Mobility Patient will perform bed mobility at 4-Nelson level of assistance. - Transfers Patient will complete transfers from bed to chair at 4-Nelson level of assistance. - Mobility Patient will ambulate 150 ft with 4-Nelson level of assistance with RW. PATIENT REHAB POTENTIAL Sidra BAUMANN is able and expected to receive 3 hours of individualized therapy daily on at least 5 of every 7 days Sidra BAUMANN's prognosis for significant practical improvement within a reasonable period of time anna ears Good Expected level of measurable improvement will be of a practical value to Sidra BAUMANN's functional ca pacity or adaptations to impairments Has a viable Discharge Plan Medically appropriate; condition is sufficiently stable to participate in intensive rehab program DISCHARGE PLAN: - Estimated Length of Stay (days) 17. - Consensus on plan Discharge plan has been discussed with primary caregiver. Patient/Family is in agreement with the jeremy n. Primary caregiver is in agreement with the plan. - Patient/Family Goals Return home independently. - Planned Living Setting Upon Discharge Home, to live alone. Transitional Living. Primary caregiver: Pt self. CONCLUSION ON REHABILITATION NECESSITY: I have evaluated patient's pre-admission functional status and, comparing it to the patient's post-ad mission functional status now, I conclude that the pre-admission assessment was accurate. Patient's c ondition on admission supports the medical necessity of admission to IRF. It is safe to proceed with patient's therapy program. SIGNATURE PANEL: (CDT)
[2020-12-24] MEDS: PARoxetine HCL 10 MG TAB PO SCH (19:05)
[2020-12-24] MEDS: CRANBERRY FRUIT EXTRACT 200 MG CAP PO SCH (19:05)
[2020-12-24] MEDS: ATORVASTATIN 80 MG TAB PO SCH (19:06)
[2020-12-24] MEDS: ENSURE HIGH PROTEIN 237 ML CAN PO SCH (19:06)
[2020-12-24] MEDS: GABAPENTIN 300 MG CAP PO SCH (19:06)
[2020-12-24] MEDS: POTASSIUM CL SA 10 MEQ TAB PO SCH (19:06)
--- NOTE | 2020-12-24 21:23 | P.HP ---
Certification for Inpatient Patient admitted to: Inpatient With expected LOS: >2 Midnights Practitioner: I am a practitioner with admitting privileges, knowledge of patient current condition, hospital course, and medical plan of care. Services: Services provided to patient in accordance with Admission requirements found in Title 42 Section 412.3 of the Code of Federal Regulations Patient History Date of Service: 12/24/20 Reason for admission: SUBDURAL HEMATOMA History of Present Illness: FRANCE HAS HAD MANY ISSUES INCLUDING A FIB, CVA, DEMENTIA FROM VASCULAR CHANGES, FALLS, PELVIC FRACTURE. SHE FELL AT HOME AGAIN. SHE IS NOT STEADY BUT NOT USING WALKER AT HOME. SHE HIT HER HEAD AND DEVELOPED SUBSDURAL HEMATOMA. AFTER BEING IN [place] FOR A FEW DAYS SHE IS NOW HERE AT [facility]. SHE IS COMFORTABLE AND STABLE. Allergies amoxicillin Allergy (Verified 04/11/20 23:14) diarrhea codeine Allergy (Verified 04/11/20 23:14) "feels having heart attack" ibuprofen Allergy (Verified 04/11/20 23:14) Hives etodolac [From Lodine] Adverse Reaction (Verified 04/11/20 23:14) crushing chest pain when used with annaprox meperidine [From Demerol] Adverse Reaction (Verified 12/24/20 02:14) Hives/Rash annaprox Adverse Reaction (Uncoded 01/31/18 17:33) crushing chest pain when used with lodine Home medications list reviewed: Yes Home Medications: Aspirin Chewable [Aspirin Chewable*] 81 mg PO DAILY 04/11/20 Atorvastatin Calcium [Lipitor] 80 mg PO BEDTIME #30 tab 04/18/20 Cholecalciferol (Vitamin D3) [Vitamin D3] 1,000 unit PO DAILY #30 04/18/20 Cyanocobalamin (Vitamin B-12) [Vitamin B12] 4,000 mcg PO DAILY #60 04/18/20 Metoprolol Tartrate [Lopressor*] 12.5 mg PO BID #30 tab 04/18/20 PARoxetine HCL [Paroxetine HCl] 20 mg PO BEDTIME #30 04/18/20 Amiodarone HCl [Cordarone Tab] 200 mg PO BID 12/24/20 Clopidogrel Bisulfate [Plavix] 75 mg PO DAILY 12/24/20 Famotidine [Pepcid*] 40 mg PO DAILY 12/24/20 Folic Acid/Multivit-Min/Lutein [Multi-Vitamin Gummies] 1 tab.chew DAILY 12/24/20 Gabapentin 300 mg PO BEDTIME 12/24/20 Memantine HCl 10 mg PO BID 12/24/20 Spironolactone 25 mg PO BEDTIME 12/24/20 Thyroid 15 mg PO SGWMH2AT 12/24/20 Trospium Chloride [Sanctura] 20 mg PO DAILY 12/24/20 - Past Medical/Surgical History Has patient received pneumonia vaccine in the past: Yes Diabetic: No -: HTN -: hyperlipidemia -: atrial fibrillation -: Gastric bypass -: Knee surgery -: Cholecystectomy -: Appendectomy -: Hysterectomy -: tonsillectomy - Family History Father -: Diabetes Mother -: Blood disorders - Social History Smoking Status: Never smoker Alcohol use: No CD- Drugs: No Caffeine use: Yes Place of Residence: Home Review of Systems 10-point ROS is otherwise unremarkable General: Weakness Physical Examination - Vital Signs Temperature: 97.9 F Blood Pressure: 130/55 Pulse: 62 Respirations: 18 Pulse Ox (%): 95 - Physical Exam General: Oriented x2, Mild distress HEENT: Atraumatic, PERRLA, Mucous membr. moist/pink, EOMI, Sclerae nonicteric Neck: Supple, 2+ carotid pulse no bruit, No LAD, Without JVD or thyroid abnormality Respiratory: Clear to auscultation bilaterally, Normal air movement Cardiovascular: Regular rate/rhythm, Normal S1 S2 Gastrointestinal: Normal bowel sounds, No tenderness Musculoskeletal: No tenderness Integumentary: No rashes Neurological: Normal gait, Normal speech, Normal strength at 5/5 x4 extr, Normal tone, Normal affect Lymphatics: No axilla or inguinal lymphadenopathy - Studies Laboratory Data (last 24 hrs) 12/24/20 05:50: Sodium 143, Potassium 3.0 L, BUN 18, Creatinine 0.61, Glucose 87, Magnesium 1.7 L 12/24/20 05:50: WBC 6.60 D, Hgb 10.2 L, Hct 29.6 L D, Plt Count 196 Assessment and Plan - Problems (Diagnosis) (1) Subdural hematoma Current Visit: Yes Status: Acute Plan: SHE IS HIGH RISK FOR ANTICOAGULATION WITH FALLS AND SHE IS OFF ELIQUIS NOW FOR A WHILE. SHE HAS HEMATOMA FROM HEAD INJURY AND WILL CONTINUE PT HERE. 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 STATINS. (4) A-fib Current Visit: No Status: Chronic Plan: ;WILL CHECK EKG HERE TO SEE STATUS. Qualifiers: Atrial fibrillation type: unspecified chronic Qualified Code(s): I48.20 - Chronic atrial fibrillation, unspecified; I48.2 - Chronic atrial fibrillation - Advance Directives Does patient have a Living Will: Yes Does patient have a Durable POA for Healthcare: Yes
[2020-12-25] MEDS: TRAMADOL HCL 50 MG TAB PO PRN ×4 (00:16→19:15)
[2020-12-25] MEDS: METOPROLOL TAR 25 MG TAB PO SCH ×2 (05:12→17:07)
[2020-12-25] MEDS: THYROID 30 MG TAB PO SCH (05:12)
[2020-12-25] MEDS: ENSURE HIGH PROTEIN 237 ML CAN PO SCH ×2 (08:00→19:14)
[2020-12-25] MEDS: LIDOCAINE 4% PATCH TOP SCH (08:26)
[2020-12-25] MEDS: ASPIRIN 81 MG CHEWABLE TABLET PO SCH (08:27)
[2020-12-25] MEDS: CRANBERRY FRUIT EXTRACT 200 MG CAP PO SCH ×2 (08:27→19:14)
[2020-12-25] MEDS: MAGNESIUM OXIDE 400 MG TAB PO SCH ×2 (08:27→19:16)
[2020-12-25] MEDS: FAMOTIDINE 20 MG TAB PO SCH (08:28)
[2020-12-25] MEDS: MEMANTINE HCL 10 MG TABLET PO SCH ×2 (08:29→19:14)
[2020-12-25] MEDS: levETIRAcetam 500 MG TAB PO SCH ×2 (08:29→19:14)
[2020-12-25] MEDS: AMIODARONE HCL 200 MG TAB PO SCH ×2 (08:29→19:15)
[2020-12-25] MEDS: VITAMIN D 1000 UNIT TAB PO SCH (08:29)
[2020-12-25] MEDS: POTASSIUM CL SA 10 MEQ TAB PO SCH ×2 (08:30→19:15)
[2020-12-25] MEDS: CYANOCOBALAMIN 1,000 MCG TAB PO SCH (08:31)
--- NOTE | 2020-12-25 08:49 | EKG ---
Test Date: 2020-12-25 Test Time: 00:34:19 Flanging Roll Operator: RT Rivera MEASUREMENT RESULTS: Intervals: Rate: 55 AL: 186 QRSD: 104 QT: 508 QTc: 485 [place]: P: 65 AL: 186 QRS: 2 T: 38 INTERPRETIVE STATEMENTS: Sinus bradycardia Prolonged QT Abnormal ECG Compared to ECG 12/18/2020 20:53:58 T-wave abnormality no longer present Possible ischemia no longer present Electronically Signed On 12-25-20 08:48:20 CDT by Ray Munoz
[2020-12-25] MEDS: ATORVASTATIN 80 MG TAB PO SCH (19:14)
[2020-12-25] MEDS: PARoxetine HCL 10 MG TAB PO SCH (19:14)
[2020-12-25] MEDS: GABAPENTIN 300 MG CAP PO SCH (19:14)
--- NOTE | 2020-12-25 19:31 | R.PN ---
PROGRESS NOTES ENCOUNTER DATE AND TIME: 12/25/2020 19:25 (CDT) NAME FRANCE BAUMANN DATE OF : 1945 DATE OF ADMISSION: 12/24/2020 00:05 (CDT) NON TRAUMATIC INFRACEREBRAL HEMORRHAGECHIEF COMPLAINT: Intracerebral hemorrhage SUBJECTIVE: Pt denied any depression. Pt denied any Shortness of Breath. WBC 6.6, Hgb 10.2, prealbumin 12.8, potassium 3.0. Ambulated 1480' with contact guard assistance using a rolling walker. VITAL SIGNS Temperature: 97.5 F SBP/DBP: 134/56 Pulse: 58 Resp: 16 MEDICATION ALLERGIES: ANAPROX CODINE DEMEROL AMOXICILLIN IBUPROFEN ENVIRONMENTAL ALLERGIES: - Substance Allergies None Known - Other Allergies None Known NURSING: - Shower allowing shower - Bladder care per protocol - Skin care per protocol ACTIVITIES OOB only with supervision THERAPIES: - Occupational Therapy Cognitive Retraining. Visual Perceptual Training. - Dietary and Nutrition Adequate Nutrition. Nutritional Education. Nutritional Supplements. - Speech Therapy Cognitive Training. Expressive Language Skills. Memory Strategies. Receptive Language Skills. Speech Intelligibility Training. PHYSICAL EXAM - Gen Alert and awake Lying in bed No apparent distress Oriented to: person, time, and place - Skin Right face and upper extremity bruising from fall. Right face hematoma from fall. - Eyes Hematoma around right eye. - ENMT No abnormalities - Neck No stiffness - CVS RRR - Chest Clear - Resp No wheezing - Abd + bowel sounds - GI Non distended Deferred - No abnormalities - Ext No significant edema - MSK 4/5 weakness in all extremities. - Neuro 4/5 strength bilaterally upper and lower extremities. - Psych No abnormalities ASSESSMENT: Pt. is a 75 yo Right-handed female of unknown race.On 12/18/2020 she was admitted to [facility] with diagnosis NON TRAUMATIC INFRACEREBRAL HEMORRHAGE.Her impairment category is Stroke 01 - Other Stroke (01.9).Pre-morbidly, Pt. was independent/mod-I in Locomotion, Safety Awareness, Endurance, and Self-Care; and she had good Transfers Control and Sphincter Control.Currently, she has deficits of L ocomotion, Balance, Transfers Control, and Endurance.Pt. is now referred to [facility] for acute in-patient rehabilitation in order to maximize patient's functional independence i n activities of daily living, strength, ROM, and mobility.- Rehab Goal Patient has realistic goal of being discharged at assistance level 7-Ind to reside at Home with Pt s elf. MDM/PLAN: - Physical Therapy Gait dysfunction - to improve, our physical therapists will perform initial evaluation of pt's statu s upon admission and devise an individualized program for Gait Training, and Wheel Chair mobility Inability to transfer - to improve, our physical therapists will perform initial evaluation of pt's status upon admission and devise an individualized program for Bed mobility Need for home safety evaluation - to improve, our physical therapists will perform initial evaluatio n of pt's status upon admission and devise an individualized program for Home Evaluation Need in caregiver upon discharge - to improve, our physical therapists will perform initial evaluati on of pt's status upon admission and devise an individualized program for Caregiver Training New precaution - to improve, our physical therapists will perform initial evaluation of pt's status upon admission and devise an individualized program for Patient precaution education Edema - to improve, our physical therapists will perform initial evaluation of pt's status upon admis sue and devise an individualized program for Elevation Training, and Lymphedema Therapy Poor balance - to improve, our physical therapists will perform initial evaluation of pt's status up on admission and devise an individualized program for Balance Training Poor endurance - to improve, our physical therapists will perform initial evaluation of pt's status upon admission and devise an individualized program for Endurance Training Weakness - to improve, our physical therapists will perform initial evaluation of pt's status upon a dmission and devise an individualized program for Aquatic Therapy, Neuromuscular Reeducation, and Str engthening Achieving independence - to improve, our physical therapists will perform initial evaluation of pt's status upon admission and devise an individualized program for Community Reintegration Activities - Occupational Therapy Need for animal care worker - to improve, our occupation therapists will perform initial evaluation of pt's status upon admission and devise an individualized program for Caregiver Training Weakness - to improve, our occupation therapists will perform initial evaluation of pt's status upon admission and devise an individualized program for Aquatic Therapy, Balance, Endurance, UE ROM, and UE strengthening - Other See attached MAR (Medication Administration Record) - Diet Type Continue Regular - Diet - Liquid Texture Continue Regular - Tube Feed Continue N/A - Bladder care per protocol - Skin care per protocol - Diet - Solid Texture Continue Regular - Shower allowing shower for Dementia, TBI, Stroke, or others FUNCTIONAL STATUS: UPDATED AT WEEKLY TEAM CONFERENCE - Bladder Same accident frequency: 7-Ind - No accidents in the past 7 days - Bowel Same accident frequency: 7-Ind - No accidents in the past 7 days - Walking Same score based on distance walked: 0(N/A) - Wheelchair Same score based on distance traveled: 0(N/A) FUNCTIONAL STATUS: - Self-Care A. Eating Ind B. Grooming Candy C. Bathing Nelson D. Dressing - Upper sup E. Dressing - Lower Nelson F. Toileting sup - Sphincter Control G. Bladder control Candy H. Bowel control Candy - Transfers Control I. Bed/Chair/Wheelchair sup J. Toilet sup K. Tub/Shower Nelson - Locomotion L. Walk/Wheelchair (B) Nelson M. Stairs ADNO - Communication N. Comprehension (B) Candy O. Expression (B) Candy - Social Cognition P. Social Interaction Ind Q. Problem Solving Candy R. Memory Candy - Endurance Good - Balance Good - Safety Awareness Good QI SCORES: - Self-Care A. Eating 06-Independent B. Oral hygiene 03-Partial/moderate assistance C. Toileting hygiene 02-Substantial/maximal assistance E. Shower/bathe self 03-Partial/moderate assistance F. Upper body dressing 02-Substantial/maximal assistance G. Lower body dressing 02-Substantial/maximal assistance H. Putting on/taking off footwear 88-Not attempted due to medical condition or safety concerns - Mobility A. Roll left and right 03-Partial/moderate assistance B. Sit to lying 03-Partial/moderate assistance C. Lying to sitting on side of bed 03-Partial/moderate assistance D. Sit to stand 03-Partial/moderate assistance E. Chair/gaa-hq-gymuw transfer 03-Partial/moderate assistance F. Toilet transfer 03-Partial/moderate assistance G. Car transfer 88-Not attempted due to medical condition or safety concerns I. Walk 10 feet 88-Not attempted due to medical condition or safety concerns J. Walk 50 feet with two turns 88-Not attempted due to medical condition or safety concerns K. Walk 150 feet 88-Not attempted due to medical condition or safety concerns L. Walking 10 feet on uneven surfaces 88-Not attempted due to medical condition or safety concerns M. 1 step (curb) 88-Not attempted due to medical condition or safety concerns N. 4 steps 88-Not attempted due to medical condition or safety concerns O. 12 steps 88-Not attempted due to medical condition or safety concerns P. Picking up object 88-Not attempted due to medical condition or safety concerns R. Wheel 50 feet with two turns 88-Not attempted due to medical condition or safety concerns S. Wheel 150 feet 88-Not attempted due to medical condition or safety concerns - Bladder and Bowel Bladder continence Bowel continence - Endurance Fair - Balance Fair - Safety Awareness Fair [facility]. DEFICITS: Mobility, Endurance, Balance, Safety Awareness, and Self-Care SIGNATURE PANEL: (CDT)
--- NOTE | 2020-12-25 20:52 | P.PN ---
Subjective Date of Service: 12/25/20 Chief Complaint: SUBDURAL HEMATOMA Subjective: Improving FRANCE IS STABLE, WEAK, TENDS TO FALL, HAS HAD A FEW STROKES , PELVIC FRACTURE. Review of Systems 10-point ROS is otherwise unremarkable General: Weakness Physical Examination - Vital Signs Temperature: 97.5 F Blood Pressure: 134/56 Pulse: 58 Respirations: 16 Pulse Ox (%): 96 - Physical Exam General: Oriented x2, Mild distress HEENT: Atraumatic, PERRLA, EOMI Neck: Supple, JVD not distended Respiratory: Clear to auscultation bilaterally, Normal air movement Cardiovascular: Regular rate/rhythm, Normal S1 S2 Gastrointestinal: Normal bowel sounds, No tenderness Musculoskeletal: No tenderness Integumentary: No rashes Neurological: Normal speech, Normal tone, Normal affect Lymphatics: No axilla or inguinal lymphadenopathy - Studies Medications List Reviewed: Yes Assessment And Plan - Current Problems (Diagnosis) (1) Subdural hematoma Current Visit: Yes Status: Acute Plan: SHE IS HIGH RISK FOR ANTICOAGULATION WITH FALLS AND SHE IS OFF ELIQUIS NOW FOR A WHILE. SHE HAS HEMATOMA FROM HEAD INJURY AND WILL CONTINUE PT HERE. 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 STATINS. (4) A-fib Current Visit: No Status: Chronic Plan: ;WILL CHECK EKG HERE TO SEE STATUS. Qualifiers: Atrial fibrillation type: unspecified chronic Qualified Code(s): I48.20 - Chronic atrial fibrillation, unspecified; I48.2 - Chronic atrial fibrillation (5) Hypokalemia Current Visit: No Status: Acute Plan: LONNIE MAY HAVE HYPERALDOSTERONISM. START SPIRONOLACTONE 25 MG DAILY. THIS WILL HELP CORRECT K , BP AND REMOVE SALT LOAD.
[2020-12-26] MEDS: THYROID 30 MG TAB PO SCH (05:10)
[2020-12-26] MEDS: METOPROLOL TAR 25 MG TAB PO SCH ×2 (05:11→17:00)
[2020-12-26 06:41] LABS: BUN Blood Urea Nitrogen 14 mg/dL (7-18); Bicarbonate 29 mmol/L (21-32); Glucose Level 93 mg/dL (74-106); Potassium 4.4 mmol/L (3.5-5.1); Sodium Level 139 mmol/L (136-145)
[2020-12-26] MEDS ORDERED: CYANOCOBALAMIN 1,000 MCG TAB PO SCH (08:00)
[2020-12-26] MEDS: TRAMADOL HCL 50 MG TAB PO PRN ×2 (08:08→12:32)
[2020-12-26] MEDS: levETIRAcetam 500 MG TAB PO SCH ×2 (08:09→19:05)
[2020-12-26] MEDS: FAMOTIDINE 20 MG TAB PO SCH (08:09)
[2020-12-26] MEDS: MAGNESIUM OXIDE 400 MG TAB PO SCH ×2 (08:09→19:08)
[2020-12-26] MEDS: CYANOCOBALAMIN 1,000 MCG TAB PO SCH (08:09)
[2020-12-26] MEDS: ASPIRIN 81 MG CHEWABLE TABLET PO SCH (08:09)
[2020-12-26] MEDS: AMIODARONE HCL 200 MG TAB PO SCH ×2 (08:09→19:07)
[2020-12-26] MEDS: MEMANTINE HCL 10 MG TABLET PO SCH ×2 (08:10→19:06)
[2020-12-26] MEDS: VITAMIN D 1000 UNIT TAB PO SCH (08:10)
[2020-12-26] MEDS: CRANBERRY FRUIT EXTRACT 200 MG CAP PO SCH ×2 (08:10→19:06)
[2020-12-26] MEDS: SPIRONOLACTONE 25 MG TABLET PO SCH (08:11)
[2020-12-26] MEDS: ENSURE HIGH PROTEIN 237 ML CAN PO SCH ×2 (08:12→19:08)
--- NOTE | 2020-12-26 10:19 | P.RH.PN ---
Estimated Length of Stay: 14 Discharge Disposition Plan: Home Family Support: Yes Digitizer Operator Goal: Mobility, Transfers, Self Care Vital Signs: Last Vital Signs Temp 98.4 F 12/26/20 07:47 Pulse 56 12/26/20 08:11 Resp 18 12/26/20 08:08 BP 140/62 12/26/20 08:11 Pulse Ox 94 12/26/20 08:08 Laboratory: Laboratory Last Values WBC 6.60 K/uL (4.3-10.9) D 12/24/20 05:50 RBC 3.40 M/uL (3.86-4.86) L D 12/24/20 05:50 Hgb 10.2 g/dL (12.0-15.0) L 12/24/20 05:50 Hct 29.6 % (36.0-45.0) L D 12/24/20 05:50 MCV 87.3 fL (80-100) D 12/24/20 05:50 MCH 30.1 pg (27.0-35.0) 12/24/20 05:50 MCHC 34.4 g/dL (32.0-36.0) 12/24/20 05:50 RDW 19.0 % (12.1-15.2) H 12/24/20 05:50 Plt Count 196 K/uL (152-406) 12/24/20 05:50 MPV 9.9 fL (7.6-11.3) 12/24/20 05:50 Neutrophils % 56.5 % (41.7-73.7) 12/24/20 05:50 Lymphocytes % 29.2 % (15.3-44.8) 12/24/20 05:50 Monocytes % 11.3 % (3.3-12.3) 12/24/20 05:50 Eosinophils % 1.9 % (0-4.4) 12/24/20 05:50 Basophils % 1.1 % (0-1.3) 12/24/20 05:50 Absolute Neutrophils 3.7 K/uL (1.8-8.0) 12/24/20 05:50 Absolute Lymphocytes 1.9 K/uL (0.7-4.9) 12/24/20 05:50 Absolute Monocytes 0.7 K/uL (0.1-1.3) 12/24/20 05:50 Absolute Eosinophils 0.1 K/uL (0-0.5) 12/24/20 05:50 Absolute Basophils 0.1 K/uL (0-0.5) 12/24/20 05:50 Sodium 139 mmol/L (136-145) 12/26/20 06:15 Potassium 4.4 mmol/L (3.5-5.1) 12/26/20 06:15 Chloride 105 mmol/L (98-107) 12/26/20 06:15 Carbon Dioxide 29 mmol/L (21-32) 12/26/20 06:15 BUN 14 mg/dL (7-18) 12/26/20 06:15 Creatinine 0.57 mg/dL (0.55-1.3) 12/26/20 06:15 Estimated GFR > 90 mL/min (=/>90) 12/26/20 06:15 Glucose 93 mg/dL (74-106) 12/26/20 06:15 Calcium 8.0 mg/dL (8.5-10.1) L 12/26/20 06:15 Magnesium 1.7 mg/dL (1.8-2.4) L 12/24/20 05:50 Albumin 2.4 g/dL (3.4-5.0) L 12/24/20 05:50 Prealbumin 12.8 mg/dL (20-40) L 12/24/20 05:50 Urine Color Cancelled 12/24/20 00:35 Urine Color Yellow (Yellow) 12/24/20 00:35 Urine Appearance Cancelled 12/24/20 00:35 Urine Appearance Clear (Clear) 12/24/20 00:35 Urine pH 6.5 (5.0-7.0) 12/24/20 00:35 Urine pH Cancelled 12/24/20 00:35 Ur Specific [place] 1.010 (1.005-1.030) 12/24/20 00:35 Ur Specific [place] Cancelled 12/24/20 00:35 Glucose (UA)(Auto) Cancelled 12/24/20 00:35 Glucose (UA)(Auto) Negative (Negative) 12/24/20 00:35 Urine Ketones Cancelled 12/24/20 00:35 Urine Ketones Negative (Negative) 12/24/20 00:35 Urine Blood Cancelled 12/24/20 00:35 Urine Blood Negative (Negative) 12/24/20 00:35 Urine Nitrite Cancelled 12/24/20 00:35 Urine Nitrite Negative (Negative) 12/24/20 00:35 Urine Bilirubin Cancelled 12/24/20 00:35 Urine Bilirubin Negative (Negataive) 12/24/20 00:35 Urine Urobilinogen 0.2 mg/dL (0.2-1.0) 12/24/20 00:35 Urine Urobilinogen Cancelled 12/24/20 00:35 Ur Leukocyte Esterase Cancelled 12/24/20 00:35 Ur Leukocyte Esterase Negative (Negative) 12/24/20 00:35 Urine RBC <5 /HPF (NONE SEEN) 12/24/20 00:35 Urine RBC Cancelled 12/24/20 00:35 Urine WBC <5 /HPF (<5) 12/24/20 00:35 Urine WBC Cancelled 12/24/20 00:35 Ur Squamous Epith Cells <5 /HPF (NONE SEEN) 12/24/20 00:35 Ur Squamous Epith Cells Cancelled 12/24/20 00:35 Ur Urothelial Cells <5 /HPF (NONE SEEN) 12/24/20 00:35 Ur Urothelial Cells Cancelled 12/24/20 00:35 Calcium Oxalate Crystal Cancelled 12/24/20 00:35 Uric Acid Crystals Cancelled 12/24/20 00:35 Triple Phos Crystals Cancelled 12/24/20 00:35 Other Crystals Cancelled 12/24/20 00:35 Amorphous Sediment Cancelled 12/24/20 00:35 Glitter Cells Cancelled 12/24/20 00:35 Urine Bacteria <20 /HPF (<20) 12/24/20 00:35 Urine Bacteria Cancelled 12/24/20 00:35 Hyaline Casts Cancelled 12/24/20 00:35 Fine Granular Casts Cancelled 12/24/20 00:35 Coarse Granular Casts Cancelled 12/24/20 00:35 Waxy Casts Cancelled 12/24/20 00:35 RBC Casts Cancelled 12/24/20 00:35 WBC Casts Cancelled 12/24/20 00:35 Urine Mucus Cancelled 12/24/20 00:35 Urine Other Cancelled 12/24/20 00:35 Urine Trichomonas Cancelled 04/07/21 00:35 Urine Yeast Cancelled 12/24/20 00:35 Ur Yeast w Hyphae Cancelled 12/24/20 00:35 Urine Yeast (Budding) Cancelled 12/24/20 00:35 Urine Sperm Cancelled 12/24/20 00:35 Urine Culture Reflexed Cancelled 12/24/20 00:35 Urine Culture Reflexed Not needed 12/24/20 00:35 Urine Total Volume Cancelled 12/24/20 00:35 Urine Total Protein Cancelled 12/24/20 00:35 Urine Total Protein Negative (Negative) 12/24/20 00:35 SARS-CoV-2 RNA (RT-PCR) Negative (NEGATIVE) 12/24/20 01:14 Weight: 120 lb 6.4 oz Wound Present: No Closed Surgical Incision Present: No Negative Pressure Wound Therapy Present: No Physician Update: Labs were reviewed and are stable. Hgb is mildly low at 10.2, prealbumin 12.8. Her cognition has worsened. She is more sedated and falls asleep easily. She only got 4 hours of sleep last night. Will do repeat head CT no contrast to review the subdural status. Functional Improvement: Patient is able to ambulate for 600' with CGA and RW. Patient tends to drift L during ambulation and requires verbal/tactile cues to stay on track. Patient is able to perform stand-pivot transfers with CGA. Patient able to perform toilet transfers SBA <-> independently. Patient continues to experience LoB when not using AD. Patient continues to require skilled PT services to address deficits in functional strength and balance. Summary: Patient's care plan and chcf goals have been reviewed and revised as necessary. Please see the Rehabilitation Signature page for all necessary signatures.
[2020-12-26] MEDS: LIDOCAINE 4% PATCH TOP SCH (10:52)
--- NOTE | 2020-12-26 11:18 | RAD REPORT ---
EXAM DESCRIPTION: CT - Head Brain Wo Cont - 12/26/2020 10:42 am CLINICAL HISTORY: Rule out worsening subdural, known subdural hematoma on the right COMPARISON: Head Brain Wo Cont dated 12/18/2020 TECHNIQUE: Axial 5 mm thick images of the head were obtained without IV contrast. All CT scans are performed using dose optimization technique as appropriate and may include automated exposure control or mA/KV adjustment according to patient size. FINDINGS: The known right frontoparietal subdural hematoma has shown no interval enlargement since A pril 18 imaging. Maximum thickness is 9 mm compared to 10 mm on December 18. The midline shift is 4 mm instead of 5 mm on the prior examination. No acute cortical based infarction. No new cortical edema o r sulcal effacement. Underlying atrophy and chronic ischemic changes are again noted. Ventricles are in proportion to volume loss. Mastoid air cells and visualized portions of the paranasal sinuses are clear. No acute bony findings. IMPRESSION: Right-sided subdural hematoma and the right to left midline shift are both fractionally improved as detailed. No new hemorrhage or new intracranial finding.
[2020-12-26 11:51] LABS: C.diff Antigen/Toxin Ag neg : Tox neg (NEG : NEG)
--- NOTE | 2020-12-26 15:02 | P.PN ---
Subjective Date of Service: 12/26/20 Chief Complaint: SUBDURAL HEMATOMA Subjective: Improving [place] IS STABLE, WEAK, TENDS TO FALL, HAS HAD A FEW STROKES , PELVIC FRACTURE. SHE SAYS SHE HURTS ON R SIDE OF HEAD WHEN SHE MOVES HEAD. Review of Systems 10-point ROS is otherwise unremarkable General: Weakness Physical Examination - Vital Signs Temperature: 98.3 F Blood Pressure: 137/63 Pulse: 57 Respirations: 18 Pulse Ox (%): 96 - Physical Exam General: Alert, In no apparent distress HEENT: Atraumatic, PERRLA, Other (R FOREHEAD HEMATOMA.), EOMI Neck: Supple, JVD not distended Respiratory: Clear to auscultation bilaterally, Normal air movement Cardiovascular: Regular rate/rhythm, Normal S1 S2 Gastrointestinal: Normal bowel sounds, No tenderness Musculoskeletal: No tenderness Integumentary: No rashes Neurological: Normal speech, Normal tone, Normal affect Lymphatics: No axilla or inguinal lymphadenopathy - Studies Laboratory Data (last 24 hrs) 12/26/20 06:15: Sodium 139, Potassium 4.4, BUN 14, Creatinine 0.57, Glucose 93 Microbiology Data (last 24 hrs): 12/24/20 00:35 Clean Catch Urine Candor Count - Final BETWEEN 10,000 & 100,000 CFU/ML 12/24/20 00:35 Clean Catch Urine - Final MIXED ALYSSA. Medications List Reviewed: Yes Assessment And Plan - Current Problems (Diagnosis) (1) Subdural hematoma Current Visit: Yes Status: Acute Plan: SHE IS HIGH RISK FOR ANTICOAGULATION WITH FALLS AND SHE IS OFF ELIQUIS NOW FOR A WHILE. SHE HAS HEMATOMA FROM HEAD INJURY AND WILL CONTINUE PT HERE. CT SHOWS IMPROVEMNENT OF HEMATOMA. IT IS ORGANIZING NOW WILL OKAY BABY ASPIRIN DAILY SHE IS PRONE TO GET STROKES. 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 STATINS. (4) A-fib Current Visit: No Status: Chronic Plan: ;WILL CHECK EKG HERE TO SEE STATUS. Qualifiers: Atrial fibrillation type: unspecified chronic Qualified Code(s): I48.20 - Chronic atrial fibrillation, unspecified; I48.2 - Chronic atrial fibrillation (5) Hypokalemia Current Visit: No Status: Acute Plan: LONNIE MAY HAVE HYPERALDOSTERONISM. START SPIRONOLACTONE 25 MG DAILY. THIS WILL HELP CORRECT K , BP AND REMOVE SALT LOAD.
[2020-12-26] MEDS: PARoxetine HCL 10 MG TAB PO SCH (19:05)
[2020-12-26] MEDS: ATORVASTATIN 80 MG TAB PO SCH (19:06)
[2020-12-26] MEDS: GABAPENTIN 300 MG CAP PO SCH (19:07)
[2020-12-27] MEDS: THYROID 30 MG TAB PO SCH (05:40)
[2020-12-27] MEDS: METOPROLOL TAR 25 MG TAB PO SCH ×2 (05:42→17:47)
[2020-12-27] MEDS: VITAMIN D 1000 UNIT TAB PO SCH (08:10)
[2020-12-27] MEDS: ASPIRIN 81 MG CHEWABLE TABLET PO SCH (08:10)
[2020-12-27] MEDS: CRANBERRY FRUIT EXTRACT 200 MG CAP PO SCH ×2 (08:10→20:03)
[2020-12-27] MEDS: FAMOTIDINE 20 MG TAB PO SCH (08:11)
[2020-12-27] MEDS: SPIRONOLACTONE 25 MG TABLET PO SCH (08:11)
[2020-12-27] MEDS: CYANOCOBALAMIN 1,000 MCG TAB PO SCH (08:12)
[2020-12-27] MEDS: AMIODARONE HCL 200 MG TAB PO SCH ×2 (08:12→20:03)
[2020-12-27] MEDS: MAGNESIUM OXIDE 400 MG TAB PO SCH ×2 (08:12→20:04)
[2020-12-27] MEDS: levETIRAcetam 500 MG TAB PO SCH ×2 (08:12→20:03)
[2020-12-27] MEDS: ENSURE HIGH PROTEIN 237 ML CAN PO SCH ×2 (08:12→20:02)
[2020-12-27] MEDS: MEMANTINE HCL 10 MG TABLET PO SCH ×2 (08:13→20:03)
[2020-12-27] MEDS: LIDOCAINE 4% PATCH TOP SCH (08:14)
[2020-12-27] MEDS: TRAMADOL HCL 50 MG TAB PO PRN ×2 (08:31→16:23)
[2020-12-27] MEDS: GABAPENTIN 300 MG CAP PO SCH (20:03)
[2020-12-27] MEDS: PARoxetine HCL 10 MG TAB PO SCH (20:03)
[2020-12-27] MEDS: ATORVASTATIN 80 MG TAB PO SCH (20:04)
[2020-12-28] MEDS: THYROID 30 MG TAB PO SCH (05:37)
[2020-12-28] MEDS: METOPROLOL TAR 25 MG TAB PO SCH ×2 (05:40→17:07)
--- NOTE | 2020-12-28 07:44 | P.PN ---
Subjective Date of Service: 12/27/20 Chief Complaint: SUBDURAL HEMATOMA Subjective: Improving [place] IS STABLE, WEAK, TENDS TO FALL, HAS HAD A FEW STROKES , PELVIC FRACTURE. SHE SAYS SHE HURTS ON R SIDE OF HEAD WHEN SHE MOVES HEAD. SHE HAS NO NEW ISSUES. Review of Systems 10-point ROS is otherwise unremarkable General: Weakness Physical Examination - Vital Signs Temperature: 97.5 F Blood Pressure: 115/51 Pulse: 54 Respirations: 16 Pulse Ox (%): 95 - Physical Exam General: Oriented x2 (GETS CONFUSED AT TIMES, FORGETS RECENT EVENTS.), Mild distress HEENT: Atraumatic, PERRLA, EOMI Neck: Supple, JVD not distended Respiratory: Clear to auscultation bilaterally, Normal air movement Cardiovascular: Regular rate/rhythm, Normal S1 S2 Gastrointestinal: Normal bowel sounds, No tenderness Musculoskeletal: No tenderness Integumentary: No rashes Neurological: Normal speech, Normal tone, Normal affect Lymphatics: No axilla or inguinal lymphadenopathy - Studies Medications List Reviewed: Yes Assessment And Plan - Current Problems (Diagnosis) (1) Subdural hematoma Current Visit: Yes Status: Acute Plan: SHE IS HIGH RISK FOR ANTICOAGULATION WITH FALLS AND SHE IS OFF ELIQUIS NOW FOR A WHILE. SHE HAS HEMATOMA FROM HEAD INJURY AND WILL CONTINUE PT HERE. CT SHOWS IMPROVEMNENT OF HEMATOMA. IT IS ORGANIZING NOW WILL OKAY BABY ASPIRIN DAILY SHE IS PRONE TO GET STROKES. 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 STATINS. (4) A-fib Current Visit: No Status: Chronic Plan: ;WILL CHECK EKG HERE TO SEE STATUS. Qualifiers: Atrial fibrillation type: unspecified chronic Qualified Code(s): I48.20 - Chronic atrial fibrillation, unspecified; I48.2 - Chronic atrial fibrillation (5) Hypokalemia Current Visit: No Status: Acute Plan: LONNIE MAY HAVE HYPERALDOSTERONISM. START SPIRONOLACTONE 25 MG DAILY. THIS WILL HELP CORRECT K , BP AND REMOVE SALT LOAD.
[2020-12-28] MEDS: VITAMIN D 1000 UNIT TAB PO SCH (08:29)
[2020-12-28] MEDS: SPIRONOLACTONE 25 MG TABLET PO SCH (08:30)
[2020-12-28] MEDS: FAMOTIDINE 20 MG TAB PO SCH (08:30)
[2020-12-28] MEDS: ASPIRIN 81 MG CHEWABLE TABLET PO SCH (08:30)
[2020-12-28] MEDS: MEMANTINE HCL 10 MG TABLET PO SCH ×2 (08:31→20:06)
[2020-12-28] MEDS: AMIODARONE HCL 200 MG TAB PO SCH ×2 (08:31→20:06)
[2020-12-28] MEDS: levETIRAcetam 500 MG TAB PO SCH ×2 (08:31→20:06)
[2020-12-28] MEDS: MAGNESIUM OXIDE 400 MG TAB PO SCH ×2 (08:32→20:06)
[2020-12-28] MEDS: CRANBERRY FRUIT EXTRACT 200 MG CAP PO SCH ×2 (10:07→20:06)
[2020-12-28] MEDS: CYANOCOBALAMIN 1,000 MCG TAB PO SCH (10:07)
[2020-12-28] MEDS: LIDOCAINE 4% PATCH TOP SCH (10:08)
[2020-12-28] MEDS: ENSURE HIGH PROTEIN 237 ML CAN PO SCH (10:10)
--- NOTE | 2020-12-28 13:33 | P.PN ---
Subjective Date of Service: 12/28/20 Chief Complaint: SUBDURAL HEMATOMA Subjective: Improving [place] IS STABLE, WEAK, TENDS TO FALL, HAS HAD A FEW STROKES , PELVIC FRACTURE. SHE SAYS SHE HURTS ON R SIDE OF HEAD WHEN SHE MOVES HEAD. SHE HAS NO NEW ISSUES. NO CHANGES. LOOSE PUDDING LIKE STOOL PER CARETAKERS HERE. Physical Examination - Vital Signs Temperature: 97.5 F Blood Pressure: 115/51 Pulse: 60 Respirations: 16 Pulse Ox (%): 95 - Studies Medications List Reviewed: Yes Assessment And Plan - Current Problems (Diagnosis) (1) Subdural hematoma Current Visit: Yes Status: Acute Plan: SHE IS HIGH RISK FOR ANTICOAGULATION WITH FALLS AND SHE IS OFF ELIQUIS NOW FOR A WHILE. SHE HAS HEMATOMA FROM HEAD INJURY AND WILL CONTINUE PT HERE. CT SHOWS IMPROVEMNENT OF HEMATOMA. IT IS ORGANIZING NOW WILL OKAY BABY ASPIRIN DAILY SHE IS PRONE TO GET STROKES. 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 STATINS. (4) A-fib Current Visit: No Status: Chronic Plan: ;WILL CHECK EKG HERE TO SEE STATUS. Qualifiers: Atrial fibrillation type: unspecified chronic Qualified Code(s): I48.20 - Chronic atrial fibrillation, unspecified; I48.2 - Chronic atrial fibrillation (5) Hypokalemia Current Visit: No Status: Acute Plan: LONNIE MAY HAVE HYPERALDOSTERONISM. START SPIRONOLACTONE 25 MG DAILY. THIS WILL HELP CORRECT K , BP AND REMOVE SALT LOAD. (6) Loose bowel movements Current Visit: Yes Status: Acute Plan: THIS IS NOT WATERY. IT HAS SEMISOLID CONSISTENCY. C DIFF NEG. CHECK O P, C S, WBC, GUAIAC.
[2020-12-28 15:33] LABS: Potassium 4.4 mmol/L (3.5-5.1)
[2020-12-28] MEDS: GLUCERNA SHAKE 237 ML CAN PO SCH (20:00)
[2020-12-28] MEDS: ATORVASTATIN 80 MG TAB PO SCH (20:06)
[2020-12-28] MEDS: PARoxetine HCL 10 MG TAB PO SCH (20:06)
[2020-12-28] MEDS: GABAPENTIN 300 MG CAP PO SCH (20:06)
[2020-12-29] MEDS: METOPROLOL TAR 25 MG TAB PO SCH ×2 (05:27→16:56)
[2020-12-29] MEDS: THYROID 30 MG TAB PO SCH (05:27)
[2020-12-29] MEDS: FAMOTIDINE 20 MG TAB PO SCH (08:16)
[2020-12-29] MEDS: CRANBERRY FRUIT EXTRACT 200 MG CAP PO SCH ×2 (08:16→19:43)
[2020-12-29] MEDS: CYANOCOBALAMIN 1,000 MCG TAB PO SCH (08:16)
[2020-12-29] MEDS: SPIRONOLACTONE 25 MG TABLET PO SCH (08:17)
[2020-12-29] MEDS: AMIODARONE HCL 200 MG TAB PO SCH ×2 (08:19→19:41)
[2020-12-29] MEDS: MEMANTINE HCL 10 MG TABLET PO SCH ×2 (08:20→19:41)
[2020-12-29] MEDS: VITAMIN D 1000 UNIT TAB PO SCH (08:20)
[2020-12-29] MEDS: levETIRAcetam 500 MG TAB PO SCH ×2 (08:20→19:41)
[2020-12-29] MEDS: ASPIRIN 81 MG CHEWABLE TABLET PO SCH (08:20)
[2020-12-29] MEDS: TRAMADOL HCL 50 MG TAB PO PRN ×3 (08:20→19:42)
[2020-12-29] MEDS: MAGNESIUM OXIDE 400 MG TAB PO SCH ×2 (08:25→19:42)
[2020-12-29] MEDS: GLUCERNA SHAKE 237 ML CAN PO SCH ×2 (08:25→19:42)
[2020-12-29] MEDS: LIDOCAINE 4% PATCH TOP SCH (11:05)
[2020-12-29] MEDS ORDERED: ACETAMINOPHEN 500 MG TAB PO PRN (15:38)
[2020-12-29] MEDS ORDERED: ENOXAPARIN 40 MG/0.4 ML SQ SCH (17:00)
--- NOTE | 2020-12-29 18:40 | R.PN ---
PROGRESS NOTES ENCOUNTER DATE AND TIME: 12/29/2020 18:37 (CDT) NAME FRANCE BAUMANN DATE OF : 1945 DATE OF ADMISSION: 12/24/2020 00:05 (CDT) NON TRAUMATIC INFRACEREBRAL HEMORRHAGECHIEF COMPLAINT: Intracerebral hemorrhage SUBJECTIVE: Pt denied any depression. Pt denied any Shortness of Breath. WBC 6.6, Hgb 10.2, prealbumin 12.8, potassium 4.4, calcium 8.0. Ambulated 850' with contact guard assistance using a rolling walker. VITAL SIGNS Temperature: 97.3 F SBP/DBP: 129/64 Pulse: 59 Resp: 16 MEDICATION ALLERGIES: ANAPROX CODINE DEMEROL AMOXICILLIN IBUPROFEN ENVIRONMENTAL ALLERGIES: - Substance Allergies None Known - Other Allergies None Known NURSING: - Shower allowing shower - Bladder care per protocol - Skin care per protocol ACTIVITIES OOB only with supervision THERAPIES: - Occupational Therapy Cognitive Retraining. Visual Perceptual Training. - Dietary and Nutrition Adequate Nutrition. Nutritional Education. Nutritional Supplements. - Speech Therapy Cognitive Training. Expressive Language Skills. Memory Strategies. Receptive Language Skills. Speech Intelligibility Training. PHYSICAL EXAM - Gen Alert and awake Lying in bed No apparent distress Oriented to: person, time, and place - Skin Right face and upper extremity bruising from fall. Right face hematoma from fall. - Eyes Hematoma around right eye. - ENMT No abnormalities - Neck No stiffness - CVS RRR - Chest Clear - Resp No wheezing - Abd + bowel sounds - GI Non distended Deferred - No abnormalities - Ext No significant edema - MSK 4/5 weakness in all extremities. - Neuro 4/5 strength bilaterally upper and lower extremities. - Psych No abnormalities ASSESSMENT: Pt. is a 75 yo Right-handed female of unknown race.On 12/18/2020 she was admitted to [facility] with diagnosis NON TRAUMATIC INFRACEREBRAL HEMORRHAGE.Her impairment category is Stroke 01 - Other Stroke (01.9).Pre-morbidly, Pt. was independent/mod-I in Locomotion, Safety Awareness, Endurance, and Self-Care; and she had good Transfers Control and Sphincter Control.Currently, she has deficits of L ocomotion, Balance, Transfers Control, and Endurance.Pt. is now referred to [facility] for acute in-patient rehabilitation in order to maximize patient's functional independence i n activities of daily living, strength, ROM, and mobility.- Rehab Goal Patient has realistic goal of being discharged at assistance level 7-Ind to reside at Home with Pt s elf. MDM/PLAN: - Physical Therapy Gait dysfunction - to improve, our physical therapists will perform initial evaluation of pt's statu s upon admission and devise an individualized program for Gait Training, and Wheel Chair mobility Inability to transfer - to improve, our physical therapists will perform initial evaluation of pt's status upon admission and devise an individualized program for Bed mobility Need for home safety evaluation - to improve, our physical therapists will perform initial evaluatio n of pt's status upon admission and devise an individualized program for Home Evaluation Need in caregiver upon discharge - to improve, our physical therapists will perform initial evaluati on of pt's status upon admission and devise an individualized program for Caregiver Training New precaution - to improve, our physical therapists will perform initial evaluation of pt's status upon admission and devise an individualized program for Patient precaution education Edema - to improve, our physical therapists will perform initial evaluation of pt's status upon admi ssion and devise an individualized program for Elevation Training, and Lymphedema Therapy Poor balance - to improve, our physical therapists will perform initial evaluation of pt's status up on admission and devise an individualized program for Balance Training Poor endurance - to improve, our physical therapists will perform initial evaluation of pt's status upon admission and devise an individualized program for Endurance Training Weakness - to improve, our physical therapists will perform initial evaluation of pt's status upon a dmission and devise an individualized program for Aquatic Therapy, Neuromuscular Reeducation, and Str engthening Achieving independence - to improve, our physical therapists will perform initial evaluation of pt's status upon admission and devise an individualized program for Community Reintegration Activities - Occupational Therapy Need for ambulatory care - to improve, our occupation therapists will perform initial evaluation of pt's status upon admission and devise an individualized program for Caregiver Training Weakness - to improve, our occupation therapists will perform initial evaluation of pt's status upon admission and devise an individualized program for Aquatic Therapy, Balance, Endurance, UE ROM, and UE strengthening - Other See attached MAR (Medication Administration Record) - Diet Type Continue Regular - Diet - Liquid Texture Continue Regular - Tube Feed Continue N/A - Bladder care per protocol - Skin care per protocol - Diet - Solid Texture Continue Regular - Shower allowing shower for Dementia, TBI, Stroke, or others FUNCTIONAL STATUS: UPDATED AT WEEKLY TEAM CONFERENCE - Bladder Same accident frequency: 7-Ind - No accidents in the past 7 days - Bowel Same accident frequency: 7-Ind - No accidents in the past 7 days - Walking Same score based on distance walked: 0(N/A) - Wheelchair Same score based on distance traveled: 0(N/A) FUNCTIONAL STATUS: - Self-Care A. Eating Ind B. Grooming Candy C. Bathing Nelson D. Dressing - Upper sup E. Dressing - Lower Nelson F. Toileting sup - Sphincter Control G. Bladder control Candy H. Bowel control Candy - Transfers Control I. Bed/Chair/Wheelchair sup J. Toilet sup K. Tub/Shower Nelson - Locomotion L. Walk/Wheelchair (B) Nelson M. Stairs ADNO - Communication N. Comprehension (B) Candy O. Expression (B) Candy - Social Cognition P. Social Interaction Ind Q. Problem Solving Candy R. Memory Candy - Endurance Good - Balance Good - Safety Awareness Good QI SCORES: - Self-Care A. Eating 06-Independent B. Oral hygiene 03-Partial/moderate assistance C. Toileting hygiene 02-Substantial/maximal assistance E. Shower/bathe self 03-Partial/moderate assistance F. Upper body dressing 02-Substantial/maximal assistance G. Lower body dressing 02-Substantial/maximal assistance H. Putting on/taking off footwear 88-Not attempted due to medical condition or safety concerns - Mobility A. Roll left and right 03-Partial/moderate assistance B. Sit to lying 03-Partial/moderate assistance C. Lying to sitting on side of bed 03-Partial/moderate assistance D. Sit to stand 03-Partial/moderate assistance E. Chair/[id number] transfer 03-Partial/moderate assistance F. Toilet transfer 03-Partial/moderate assistance G. Car transfer 88-Not attempted due to medical condition or safety concerns I. Walk 10 feet 88-Not attempted due to medical condition or safety concerns J. Walk 50 feet with two turns 88-Not attempted due to medical condition or safety concerns K. Walk 150 feet 88-Not attempted due to medical condition or safety concerns L. Walking 10 feet on uneven surfaces 88-Not attempted due to medical condition or safety concerns M. 1 step (curb) 88-Not attempted due to medical condition or safety concerns N. 4 steps 88-Not attempted due to medical condition or safety concerns O. 12 steps 88-Not attempted due to medical condition or safety concerns P. Picking up object 88-Not attempted due to medical condition or safety concerns R. Wheel 50 feet with two turns 88-Not attempted due to medical condition or safety concerns S. Wheel 150 feet 88-Not attempted due to medical condition or safety concerns - Bladder and Bowel Bladder continence Bowel continence - Endurance Fair - Balance Fair - Safety Awareness Fair CURRENT [facility]. DEFICITS: Mobility, Endurance, Balance, Safety Awareness, and Self-Care SIGNATURE PANEL: (CDT)
[2020-12-29] MEDS: ATORVASTATIN 80 MG TAB PO SCH (19:41)
[2020-12-29] MEDS: GABAPENTIN 300 MG CAP PO SCH (19:41)
[2020-12-29] MEDS: carBAMazepine 200 MG TAB PO SCH (19:41)
[2020-12-29] MEDS: PARoxetine HCL 10 MG TAB PO SCH (19:41)
[2020-12-29] MEDS ORDERED: carvediloL 6.25 MG TAB PO SCH (20:00)
--- NOTE | 2020-12-29 20:35 | P.PN ---
Subjective Date of Service: 12/29/20 Chief Complaint: SUBDURAL HEMATOMA Subjective: Improving [place] IS STABLE, WEAK, TENDS TO FALL, HAS HAD A FEW STROKES , PELVIC FRACTURE. SHE SAYS SHE HURTS ON R SIDE OF HEAD WHEN SHE MOVES HEAD. SHE HAS NO NEW ISSUES. NO CHANGES. LOOSE PUDDING LIKE STOOL PER CARETAKERS HERE. SHE IS STABLE. NO CHANGES. Review of Systems 10-point ROS is otherwise unremarkable General: Weakness Physical Examination - Vital Signs Temperature: 97.3 F Blood Pressure: 116/53 Pulse: 55 Respirations: 18 Pulse Ox (%): 97 - Physical Exam General: Mild distress HEENT: Atraumatic, PERRLA, EOMI Neck: Supple, JVD not distended Respiratory: Clear to auscultation bilaterally, Normal air movement Cardiovascular: Regular rate/rhythm, Normal S1 S2 Gastrointestinal: Normal bowel sounds, No tenderness Musculoskeletal: No tenderness Integumentary: No rashes Neurological: Normal speech, Normal tone, Normal affect Lymphatics: No axilla or inguinal lymphadenopathy - Studies Medications List Reviewed: Yes Assessment And Plan - Current Problems (Diagnosis) (1) Subdural hematoma Current Visit: Yes Status: Acute Plan: SHE IS HIGH RISK FOR ANTICOAGULATION WITH FALLS AND SHE IS OFF ELIQUIS NOW FOR A WHILE. SHE HAS HEMATOMA FROM HEAD INJURY AND WILL CONTINUE PT HERE. CT SHOWS IMPROVEMNENT OF HEMATOMA. IT IS ORGANIZING NOW WILL OKAY BABY ASPIRIN DAILY SHE IS PRONE TO GET STROKES. 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 STATINS. (4) A-fib Current Visit: No Status: Chronic Plan: ;WILL CHECK EKG HERE TO SEE STATUS. Qualifiers: Atrial fibrillation type: unspecified chronic Qualified Code(s): I48.20 - Chronic atrial fibrillation, unspecified; I48.2 - Chronic atrial fibrillation (5) Hypokalemia Current Visit: No Status: Acute Plan: LONNIE MAY HAVE HYPERALDOSTERONISM. START SPIRONOLACTONE 25 MG DAILY. THIS WILL HELP CORRECT K , BP AND REMOVE SALT LOAD. (6) Loose bowel movements Current Visit: Yes Status: Acute Plan: THIS IS NOT WATERY. IT HAS SEMISOLID CONSISTENCY. C DIFF NEG. CHECK O P, C S, WBC, GUAIAC.
[2020-12-29] MEDS ORDERED: carBAMazepine 200 MG TAB PO SCH (21:00)
[2020-12-30] MEDS: METOPROLOL TAR 25 MG TAB PO SCH ×2 (05:01→17:38)
[2020-12-30] MEDS: THYROID 30 MG TAB PO SCH (05:01)
[2020-12-30] MEDS ORDERED: LEVOTHYROXINE SOD 0.112 MG TAB PO SCH (06:30)
[2020-12-30] MEDS: LIDOCAINE 4% PATCH TOP SCH (07:55)
[2020-12-30] MEDS: CLOPIDOGREL 75 MG TABLET PO SCH ×2 (08:00→08:26)
[2020-12-30] MEDS ORDERED: ATORVASTATIN 80 MG TAB PO SCH (08:00)
[2020-12-30] MEDS: TRAMADOL HCL 50 MG TAB PO PRN ×3 (08:22→19:41)
[2020-12-30] MEDS: VITAMIN D 1000 UNIT TAB PO SCH (08:24)
[2020-12-30] MEDS: FAMOTIDINE 20 MG TAB PO SCH (08:24)
[2020-12-30] MEDS: CRANBERRY FRUIT EXTRACT 200 MG CAP PO SCH ×2 (08:24→19:40)
[2020-12-30] MEDS: levETIRAcetam 500 MG TAB PO SCH ×2 (08:24→19:42)
[2020-12-30] MEDS: MAGNESIUM OXIDE 400 MG TAB PO SCH ×2 (08:25→19:42)
[2020-12-30] MEDS: CYANOCOBALAMIN 1,000 MCG TAB PO SCH (08:25)
[2020-12-30] MEDS: SPIRONOLACTONE 25 MG TABLET PO SCH (08:26)
[2020-12-30] MEDS: ASPIRIN 81 MG CHEWABLE TABLET PO SCH (08:26)
[2020-12-30] MEDS: GLUCERNA SHAKE 237 ML CAN PO SCH ×2 (08:26→19:42)
[2020-12-30] MEDS: MEMANTINE HCL 10 MG TABLET PO SCH ×2 (08:26→19:41)
[2020-12-30] MEDS: AMIODARONE HCL 200 MG TAB PO SCH ×2 (08:26→19:42)
--- NOTE | 2020-12-30 18:35 | R.PN ---
PROGRESS NOTES ENCOUNTER DATE AND TIME: 12/30/2020 18:32 (CDT) NAME FRANCE BAUMANN DATE OF : 1945 DATE OF ADMISSION: 12/24/2020 00:05 (CDT) NON TRAUMATIC INFRACEREBRAL HEMORRHAGECHIEF COMPLAINT: Intracerebral hemorrhage SUBJECTIVE: Pt denied any depression. Pt denied any Shortness of Breath. WBC 6.6, Hgb 10.2, prealbumin 12.8, potassium 4.4, calcium 8.0. Ambulated 1200' with contact guard assistance using a rolling walker. VITAL SIGNS Temperature: 97.2 F SBP/DBP: 138/69 Pulse: 55 Resp: 16 MEDICATION ALLERGIES: ANAPROX CODINE DEMEROL AMOXICILLIN IBUPROFEN ENVIRONMENTAL ALLERGIES: - Substance Allergies None Known - Other Allergies None Known NURSING: - Shower allowing shower - Bladder care per protocol - Skin care per protocol ACTIVITIES OOB only with supervision THERAPIES: - Occupational Therapy Cognitive Retraining. Visual Perceptual Training. - Dietary and Nutrition Adequate Nutrition. Nutritional Education. Nutritional Supplements. - Speech Therapy Cognitive Training. Expressive Language Skills. Memory Strategies. Receptive Language Skills. Speech Intelligibility Training. PHYSICAL EXAM - Gen Alert and awake Lying in bed No apparent distress Oriented to: person, time, and place - Skin Right face and upper extremity bruising from fall. Right face hematoma from fall. - Eyes Hematoma around right eye. - ENMT No abnormalities - Neck No stiffness - CVS RRR - Chest Clear - Resp No wheezing - Abd + bowel sounds - GI Non distended Deferred - No abnormalities - Ext No significant edema - MSK 4/5 weakness in all extremities. - Neuro 4/5 strength bilaterally upper and lower extremities. - Psych No abnormalities ASSESSMENT: Pt. is a 75 yo Right-handed female of unknown race.On 12/18/2020 she was admitted to [facility] with diagnosis NON TRAUMATIC INFRACEREBRAL HEMORRHAGE.Her impairment category is Stroke 01 - Other Stroke (01.9).Pre-morbidly, Pt. was independent/mod-I in Locomotion, Safety Awareness, Endurance, and Self-Care; and she had good Transfers Control and Sphincter Control.Currently, she has deficits of L ocomotion, Balance, Transfers Control, and Endurance.Pt. is now referred to [facility] for acute in-patient rehabilitation in order to maximize patient's functional independence i n activities of daily living, strength, ROM, and mobility.- Rehab Goal Patient has realistic goal of being discharged at assistance level 7-Ind to reside at Home with Pt s elf. MDM/PLAN: - Physical Therapy Gait dysfunction - to improve, our physical therapists will perform initial evaluation of pt's statu s upon admission and devise an individualized program for Gait Training, and Wheel Chair mobility Inability to transfer - to improve, our physical therapists will perform initial evaluation of pt's status upon admission and devise an individualized program for Bed mobility Need for home safety evaluation - to improve, our physical therapists will perform initial evaluatio n of pt's status upon admission and devise an individualized program for Home Evaluation Need in caregiver upon discharge - to improve, our physical therapists will perform initial evaluati on of pt's status upon admission and devise an individualized program for Caregiver Training New precaution - to improve, our physical therapists will perform initial evaluation of pt's status upon admission and devise an individualized program for Patient precaution education Edema - to improve, our physical therapists will perform initial evaluation of pt's status upon admi ssion and devise an individualized program for Elevation Training, and Lymphedema Therapy Poor balance - to improve, our physical therapists will perform initial evaluation of pt's status up on admission and devise an individualized program for Balance Training Poor endurance - to improve, our physical therapists will perform initial evaluation of pt's status upon admission and devise an individualized program for Endurance Training Weakness - to improve, our physical therapists will perform initial evaluation of pt's status upon a dmission and devise an individualized program for Aquatic Therapy, Neuromuscular Reeducation, and Str engthening Achieving independence - to improve, our physical therapists will perform initial evaluation of pt's status upon admission and devise an individualized program for Community Reintegration Activities - Occupational Therapy Need for school childcare attendant - to improve, our occupation therapists will perform initial evaluation of pt's status upon admission and devise an individualized program for Caregiver Training Weakness - to improve, our occupation therapists will perform initial evaluation of pt's status upon admission and devise an individualized program for Aquatic Therapy, Balance, Endurance, UE ROM, and UE strengthening - Other See attached MAR (Medication Administration Record) - Diet Type Continue Regular - Diet - Liquid Texture Continue Regular - Tube Feed Continue N/A - Bladder care per protocol - Skin care per protocol - Diet - Solid Texture Continue Regular - Shower allowing shower for Dementia, TBI, Stroke, or others FUNCTIONAL STATUS: UPDATED AT WEEKLY TEAM CONFERENCE - Bladder Same accident frequency: 7-Ind - No accidents in the past 7 days - Bowel Same accident frequency: 7-Ind - No accidents in the past 7 days - Walking Same score based on distance walked: 0(N/A) - Wheelchair Same score based on distance traveled: 0(N/A) FUNCTIONAL STATUS: - Self-Care A. Eating Ind B. Grooming Candy C. Bathing Nelson D. Dressing - Upper sup E. Dressing - Lower Nelson F. Toileting sup - Sphincter Control G. Bladder control Candy H. Bowel control Candy - Transfers Control I. Bed/Chair/Wheelchair sup J. Toilet sup K. Tub/Shower Nelson - Locomotion L. Walk/Wheelchair (B) Nelson M. Stairs ADNO - Communication N. Comprehension (B) Candy O. Expression (B) Candy - Social Cognition P. Social Interaction Ind Q. Problem Solving Candy R. Memory Candy - Endurance Good - Balance Good - Safety Awareness Good QI SCORES: - Self-Care A. Eating 06-Independent B. Oral hygiene 03-Partial/moderate assistance C. Toileting hygiene 02-Substantial/maximal assistance E. Shower/bathe self 03-Partial/moderate assistance F. Upper body dressing 02-Substantial/maximal assistance G. Lower body dressing 02-Substantial/maximal assistance H. Putting on/taking off footwear 88-Not attempted due to medical condition or safety concerns - Mobility A. Roll left and right 03-Partial/moderate assistance B. Sit to lying 03-Partial/moderate assistance C. Lying to sitting on side of bed 03-Partial/moderate assistance D. Sit to stand 03-Partial/moderate assistance E. Chair/[id number] transfer 03-Partial/moderate assistance F. Toilet transfer 03-Partial/moderate assistance G. Car transfer 88-Not attempted due to medical condition or safety concerns I. Walk 10 feet 88-Not attempted due to medical condition or safety concerns J. Walk 50 feet with two turns 88-Not attempted due to medical condition or safety concerns K. Walk 150 feet 88-Not attempted due to medical condition or safety concerns L. Walking 10 feet on uneven surfaces 88-Not attempted due to medical condition or safety concerns M. 1 step (curb) 88-Not attempted due to medical condition or safety concerns N. 4 steps 88-Not attempted due to medical condition or safety concerns O. 12 steps 88-Not attempted due to medical condition or safety concerns P. Picking up object 88-Not attempted due to medical condition or safety concerns R. Wheel 50 feet with two turns 88-Not attempted due to medical condition or safety concerns S. Wheel 150 feet 88-Not attempted due to medical condition or safety concerns - Bladder and Bowel Bladder continence Bowel continence - Endurance Fair - Balance Fair - Safety Awareness Fair CURRENT [facility]. DEFICITS: Mobility, Endurance, Balance, Safety Awareness, and Self-Care SIGNATURE PANEL: (CDT)
[2020-12-30] MEDS: carBAMazepine 200 MG TAB PO SCH (19:40)
[2020-12-30] MEDS: PARoxetine HCL 10 MG TAB PO SCH (19:40)
[2020-12-30] MEDS: ATORVASTATIN 80 MG TAB PO SCH (19:41)
[2020-12-30] MEDS: GABAPENTIN 300 MG CAP PO SCH (19:41)
--- NOTE | 2020-12-30 21:25 | P.PN ---
Subjective Date of Service: 12/30/20 Chief Complaint: SUBDURAL HEMATOMA Subjective: Improving FRANCE IS STABLE, WEAK, TENDS TO FALL, HAS HAD A FEW STROKES , PELVIC FRACTURE. SHE SAYS SHE HURTS ON R SIDE OF HEAD WHEN SHE MOVES HEAD. SHE HAS NO NEW ISSUES. NO CHANGES. LOOSE PUDDING LIKE STOOL PER CARETAKERS HERE. SHE IS STABLE. NO CHANGES. NO MORE DIARRHEA. Review of Systems 10-point ROS is otherwise unremarkable General: Weakness, Malaise Physical Examination - Vital Signs Temperature: 97.2 F Blood Pressure: 138/69 Pulse: 55 Respirations: 16 Pulse Ox (%): 97 - Physical Exam General: Oriented x2, Mild distress HEENT: Atraumatic, PERRLA, EOMI Neck: Supple, JVD not distended Respiratory: Clear to auscultation bilaterally, Normal air movement Cardiovascular: Regular rate/rhythm, Normal S1 S2 Gastrointestinal: Normal bowel sounds, No tenderness Musculoskeletal: No tenderness Integumentary: No rashes Neurological: Normal speech, Normal tone, Normal affect Lymphatics: No axilla or inguinal lymphadenopathy - Studies Medications List Reviewed: Yes Assessment And Plan - Current Problems (Diagnosis) (1) Subdural hematoma Current Visit: Yes Status: Acute Plan: SHE IS HIGH RISK FOR ANTICOAGULATION WITH FALLS AND SHE IS OFF ELIQUIS NOW FOR A WHILE. SHE HAS HEMATOMA FROM HEAD INJURY AND WILL CONTINUE PT HERE. CT SHOWS IMPROVEMNENT OF HEMATOMA. IT IS ORGANIZING NOW WILL OKAY BABY ASPIRIN DAILY SHE IS PRONE TO GET S TROKES. 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 STATINS. (4) A-fib Current Visit: No Status: Chronic Plan: ;WILL CHECK EKG HERE TO SEE STATUS. NSR NOW. SHE HAS WATCHMAN PROCEDURE DONE BUT IT FAILED SHE FELL ON HER CHEST. SHE IS NOT A CANDIDATE FOR ANTICOAGUALTION SHE IS A HIGH FALL RISK. Qualifiers: Atrial fibrillation type: unspecified chronic Qualified Code(s): I48.20 - Chronic atrial fibrillation, unspecified; I48.2 - Chronic atrial fibrillation (5) Hypokalemia Current Visit: No Status: Acute Plan: LONNIE MAY HAVE HYPERALDOSTERONISM. START SPIRONOLACTONE 25 MG DAILY. THIS WILL HELP CORRECT K , BP AND REMOVE SALT LOAD. (6) Loose bowel movements Current Visit: Yes Status: Acute Plan: THIS IS NOT WATERY. IT HAS SEMISOLID CONSISTENCY. C DIFF NEG. CHECK O P, C S, WBC, GUAIAC.
[2020-12-31] MEDS: METOPROLOL TAR 25 MG TAB PO SCH ×2 (05:02→17:15)
[2020-12-31] MEDS: THYROID 30 MG TAB PO SCH (05:02)
[2020-12-31] MEDS: LIDOCAINE 4% PATCH TOP SCH (08:13)
[2020-12-31] MEDS: CYANOCOBALAMIN 1,000 MCG TAB PO SCH (08:14)
[2020-12-31] MEDS: ASPIRIN 81 MG CHEWABLE TABLET PO SCH (08:14)
[2020-12-31] MEDS: levETIRAcetam 500 MG TAB PO SCH ×2 (08:14→19:27)
[2020-12-31] MEDS: VITAMIN D 1000 UNIT TAB PO SCH (08:15)
[2020-12-31] MEDS: MEMANTINE HCL 10 MG TABLET PO SCH ×2 (08:15→19:27)
[2020-12-31] MEDS: CRANBERRY FRUIT EXTRACT 200 MG CAP PO SCH ×2 (08:15→19:26)
[2020-12-31] MEDS: SPIRONOLACTONE 25 MG TABLET PO SCH (08:16)
[2020-12-31] MEDS: AMIODARONE HCL 200 MG TAB PO SCH ×2 (08:17→19:27)
[2020-12-31] MEDS: TRAMADOL HCL 50 MG TAB PO PRN (08:18)
[2020-12-31] MEDS: FAMOTIDINE 20 MG TAB PO SCH (08:19)
[2020-12-31] MEDS: GLUCERNA SHAKE 237 ML CAN PO SCH ×2 (08:21→19:28)
[2020-12-31] MEDS: MAGNESIUM OXIDE 400 MG TAB PO SCH ×2 (08:21→19:27)
[2020-12-31 17:04] LABS: Urine Appearance CLEAR (Clear); Urine Bilirubin NEGATIVE (Negataive); Urine Blood NEGATIVE (Negative); Urine Color YELLOW (Yellow); Urine Glucose NEGATIVE (Negative); Urine Microscopic Reflex ORDER UMIC; Urine Protein NEGATIVE (Negative); Urine Specific Gravity <=1.005 (1.005-1.030); Urine Urobilinogen 0.2 mg/dL (0.2-1.0)
--- NOTE | 2020-12-31 17:57 | R.PN ---
PROGRESS NOTES ENCOUNTER DATE AND TIME: 12/31/2020 17:51 (CDT) NAME FRANCE BAUMANN DATE OF : 1945 DATE OF ADMISSION: 12/24/2020 00:05 (CDT) NON TRAUMATIC INFRACEREBRAL HEMORRHAGECHIEF COMPLAINT: Intracerebral hemorrhage SUBJECTIVE: Pt denied any depression. Pt denied any Shortness of Breath. WBC 6.6, Hgb 10.2, prealbumin 12.8, potassium 4.4, calcium 8.0. Ambulated 1050' with standby assistance using a rolling walker. Up and down 20 steps x 2 with contact guard assistance. Repeat UA shows 1+ esterase but is otherwise negative. VITAL SIGNS Temperature: 97.2 F SBP/DBP: 134/56 Pulse: 57 Resp: 16 MEDICATION ALLERGIES: ANAPROX CODINE DEMEROL AMOXICILLIN IBUPROFEN ENVIRONMENTAL ALLERGIES: - Substance Allergies None Known - Other Allergies None Known NURSING: - Shower allowing shower - Bladder care per protocol - Skin care per protocol ACTIVITIES OOB only with supervision THERAPIES: - Occupational Therapy Cognitive Retraining. Visual Perceptual Training. - Dietary and Nutrition Adequate Nutrition. Nutritional Education. Nutritional Supplements. - Speech Therapy Cognitive Training. Expressive Language Skills. Memory Strategies. Receptive Language Skills. Speech Intelligibility Training. PHYSICAL EXAM - Gen Alert and awake Lying in bed No apparent distress Oriented to: person, time, and place - Skin Right face and upper extremity bruising from fall. Right face hematoma from fall. - Eyes Hematoma around right eye. - ENMT No abnormalities - Neck No stiffness - CVS RRR - Chest Clear - Resp No wheezing - Abd + bowel sounds - GI Non distended Deferred - No abnormalities - Ext No significant edema - MSK 4/5 weakness in all extremities. - Neuro 4/5 strength bilaterally upper and lower extremities. - Psych No abnormalities ASSESSMENT: Pt. is a 75 yo Right-handed female of unknown race.On 12/18/2020 she was admitted to [facility] with diagnosis NON TRAUMATIC INFRACEREBRAL HEMORRHAGE.Her impairment category is Stroke 01 - Other Stroke (01.9).Pre-morbidly, Pt. was independent/mod-I in Locomotion, Safety Awareness, Endurance, and Self-Care; and she had good Transfers Control and Sphincter Control.Currently, she has deficits of L ocomotion, Balance, Transfers Control, and Endurance.Pt. is now referred to [facility] for acute in-patient rehabilitation in order to maximize patient's functional independence i n activities of daily living, strength, ROM, and mobility.- Rehab Goal Patient has realistic goal of being discharged at assistance level 7-Ind to reside at Home with Pt s elf. MDM/PLAN: - Physical Therapy Gait dysfunction - to improve, our physical therapists will perform initial evaluation of pt's statu s upon admission and devise an individualized program for Gait Training, and Wheel Chair mobility Inability to transfer - to improve, our physical therapists will perform initial evaluation of pt's status upon admission and devise an individualized program for Bed mobility Need for home safety evaluation - to improve, our physical therapists will perform initial evaluatio n of pt's status upon admission and devise an individualized program for Home Evaluation Need in caregiver upon discharge - to improve, our physical therapists will perform initial evaluati on of pt's status upon admission and devise an individualized program for Caregiver Training New precaution - to improve, our physical therapists will perform initial evaluation of pt's status upon admission and devise an individualized program for Patient precaution education Edema - to improve, our physical therapists will perform initial evaluation of pt's status upon admi ssion and devise an individualized program for Elevation Training, and Lymphedema Therapy Poor balance - to improve, our physical therapists will perform initial evaluation of pt's status up on admission and devise an individualized program for Balance Training Poor endurance - to improve, our physical therapists will perform initial evaluation of pt's status upon admission and devise an individualized program for Endurance Training Weakness - to improve, our physical therapists will perform initial evaluation of pt's status upon a dmission and devise an individualized program for Aquatic Therapy, Neuromuscular Reeducation, and Str engthening Achieving independence - to improve, our physical therapists will perform initial evaluation of pt's status upon admission and devise an individualized program for Community Reintegration Activities - Occupational Therapy Need for daytime caregiver - to improve, our occupation therapists will perform initial evaluation of pt's status upon admission and devise an individualized program for Caregiver Training Weakness - to improve, our occupation therapists will perform initial evaluation of pt's status upon admission and devise an individualized program for Aquatic Therapy, Balance, Endurance, UE ROM, and UE strengthening - Other See attached MAR (Medication Administration Record) - Diet Type Continue Regular - Diet - Liquid Texture Continue Regular - Tube Feed Continue N/A - Bladder care per protocol - Skin care per protocol - Diet - Solid Texture Continue Regular - Shower allowing shower for Dementia, TBI, Stroke, or others FUNCTIONAL STATUS: UPDATED AT WEEKLY TEAM CONFERENCE - Bladder Same accident frequency: 7-Ind - No accidents in the past 7 days - Bowel Same accident frequency: 7-Ind - No accidents in the past 7 days - Walking Same score based on distance walked: 0(N/A) - Wheelchair Same score based on distance traveled: 0(N/A) FUNCTIONAL STATUS: - Self-Care A. Eating Ind B. Grooming Candy C. Bathing Nelson D. Dressing - Upper sup E. Dressing - Lower Nelson F. Toileting sup - Sphincter Control G. Bladder control Candy H. Bowel control Candy - Transfers Control I. Bed/Chair/Wheelchair sup J. Toilet sup K. Tub/Shower Nelson - Locomotion L. Walk/Wheelchair (B) Nelson M. Stairs ADNO - Communication N. Comprehension (B) Candy O. Expression (B) Candy - Social Cognition P. Social Interaction Ind Q. Problem Solving Candy R. Memory Candy - Endurance Good - Balance Good - Safety Awareness Good QI SCORES: - Self-Care A. Eating 06-Independent B. Oral hygiene 03-Partial/moderate assistance C. Toileting hygiene 02-Substantial/maximal assistance E. Shower/bathe self 03-Partial/moderate assistance F. Upper body dressing 02-Substantial/maximal assistance G. Lower body dressing 02-Substantial/maximal assistance H. Putting on/taking off footwear 88-Not attempted due to medical condition or safety concerns - Mobility A. Roll left and right 03-Partial/moderate assistance B. Sit to lying 03-Partial/moderate assistance C. Lying to sitting on side of bed 03-Partial/moderate assistance D. Sit to stand 03-Partial/moderate assistance E. Chair/obk-uc-[id number] transfer 03-Partial/moderate assistance F. Toilet transfer 03-Partial/moderate assistance G. Car transfer 88-Not attempted due to medical condition or safety concerns I. Walk 10 feet 88-Not attempted due to medical condition or safety concerns J. Walk 50 feet with two turns 88-Not attempted due to medical condition or safety concerns K. Walk 150 feet 88-Not attempted due to medical condition or safety concerns L. Walking 10 feet on uneven surfaces 88-Not attempted due to medical condition or safety concerns M. 1 step (curb) 88-Not attempted due to medical condition or safety concerns N. 4 steps 88-Not attempted due to medical condition or safety concerns O. 12 steps 88-Not attempted due to medical condition or safety concerns P. Picking up object 88-Not attempted due to medical condition or safety concerns R. Wheel 50 feet with two turns 88-Not attempted due to medical condition or safety concerns S. Wheel 150 feet 88-Not attempted due to medical condition or safety concerns - Bladder and Bowel Bladder continence Bowel continence - Endurance Fair - Balance Fair - Safety Awareness Fair CURRENT [facility]. DEFICITS: Mobility, Endurance, Balance, Safety Awareness, and Self-Care SIGNATURE PANEL: (CDT)
[2020-12-31 18:04] LABS: Urine Bacteria <20 /HPF (<20); Urine RBC <5 /HPF (NONE SEEN)
[2020-12-31] MEDS: ATORVASTATIN 80 MG TAB PO SCH (19:26)
[2020-12-31] MEDS: PARoxetine HCL 10 MG TAB PO SCH (19:27)
[2020-12-31] MEDS: carBAMazepine 200 MG TAB PO SCH (19:27)
[2020-12-31] MEDS: GABAPENTIN 300 MG CAP PO SCH (19:27)
--- NOTE | 2020-12-31 20:30 | P.PN ---
Subjective Date of Service: 12/31/20 Chief Complaint: SUBDURAL HEMATOMA Subjective: Improving FRANCE IS STABLE, WEAK, TENDS TO FALL, HAS HAD A FEW STROKES , PELVIC FRACTURE. SHE SAYS SHE HURTS ON R SIDE OF HEAD WHEN SHE MOVES HEAD. SHE HAS NO NEW ISSUES. NO CHANGES. LOOSE PUDDING LIKE STOOL PER CARETAKERS HERE. SHE IS STABLE. NO CHANGES. NO MORE DIARRHEA. SHE SAYS SHE IS IMAGINING AND MAY HAVE UTI. I ORDERED SPECICATH UA. Review of Systems 10-point ROS is otherwise unremarkable General: Weakness Physical Examination - Vital Signs Temperature: 97.2 F Blood Pressure: 134/56 Pulse: 57 Respirations: 16 Pulse Ox (%): 98 - Physical Exam General: Alert, In no apparent distress HEENT: Atraumatic, PERRLA, EOMI Neck: Supple, JVD not distended Respiratory: Clear to auscultation bilaterally, Normal air movement Cardiovascular: Regular rate/rhythm, Normal S1 S2 Gastrointestinal: Normal bowel sounds, No tenderness Musculoskeletal: No tenderness Integumentary: No rashes Neurological: Normal speech, Normal tone, Normal affect Lymphatics: No axilla or inguinal lymphadenopathy - Studies Medications List Reviewed: Yes Assessment And Plan - Current Problems (Diagnosis) (1) Subdural hematoma Current Visit: Yes Status: Acute Plan: SHE IS HIGH RISK FOR ANTICOAGULATION WITH FALLS AND SHE IS OFF ELIQUIS NOW FOR A WHILE. SHE HAS HEMATOMA FROM HEAD INJURY AND WILL CONTINUE PT HERE. CT SHOWS IMPROVEMNENT OF HEMATOMA. IT IS ORGANIZING NOW WILL OKAY BABY ASPIRIN DAILY SHE IS PRONE TO GET STROKES. 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 STATINS. (4) A-fib Current Visit: No Status: Chronic Plan: ;WILL CHECK EKG HERE TO SEE STATUS. NSR NOW. SHE HAS WATCHMAN PROCEDURE DONE BUT IT FAILED SHE FELL ON HER CHEST. SHE IS NOT A CANDIDATE FOR ANTICOAGUALTION SHE IS A HIGH FALL RISK. Qualifiers: Atrial fibrillation type: unspecified chronic Qualified Code(s): I48.20 - Chronic atrial fibrillation, unspecified; I48.2 - Chronic atrial fibrillation (5) Hypokalemia Current Visit: No Status: Acute Plan: LONNIE MAY HAVE HYPERALDOSTERONISM. START SPIRONOLACTONE 25 MG DAILY. THIS WILL HELP CORRECT K , BP AND REMOVE SALT LOAD. (6) Loose bowel movements Current Visit: Yes Status: Acute Plan: THIS IS NOT WATERY. IT HAS SEMISOLID CONSISTENCY. C DIFF NEG. CHECK O P, C S, WBC, GUAIAC. (7) Impaired mental alertness Current Visit: Yes Status: Acute Plan: I DON'T SEE ANY NEW ISSUES. UA IS BARELY POSITIVE WILL WAIT FOR CULTURE.
[2021-01-01] MEDS: THYROID 30 MG TAB PO SCH (05:12)
[2021-01-01] MEDS: METOPROLOL TAR 25 MG TAB PO SCH ×2 (05:13→17:13)
[2021-01-01 06:17] LABS: Absolute Lymphocytes (CBC) 1.3 K/uL (0.7-4.9); Basophils % 2.6 % (0-1.3); Hematocrit 36.2 % (36.0-45.0); Lymphocytes % 18.8 % (15.3-44.8); MPV 9.2 fL (7.6-11.3)
[2021-01-01 07:04] LABS: Albumin 2.9 g/dL (3.4-5.0); BUN Blood Urea Nitrogen 16 mg/dL (7-18); Bicarbonate 31 mmol/L (21-32); Glucose Level 95 mg/dL (74-106); Magnesium 2.5 mg/dL (1.8-2.4); Potassium 4.4 mmol/L (3.5-5.1); Prealbumin 15.1 mg/dL (20-40); Sodium Level 138 mmol/L (136-145)
[2021-01-01] MEDS: LIDOCAINE 4% PATCH TOP SCH (08:26)
[2021-01-01] MEDS: CYANOCOBALAMIN 1,000 MCG TAB PO SCH (08:27)
[2021-01-01] MEDS: levETIRAcetam 500 MG TAB PO SCH ×2 (08:27→19:54)
[2021-01-01] MEDS: FAMOTIDINE 20 MG TAB PO SCH (08:27)
[2021-01-01] MEDS: VITAMIN D 1000 UNIT TAB PO SCH (08:27)
[2021-01-01] MEDS: CRANBERRY FRUIT EXTRACT 200 MG CAP PO SCH ×2 (08:27→19:54)
[2021-01-01] MEDS: AMIODARONE HCL 200 MG TAB PO SCH ×2 (08:28→19:54)
[2021-01-01] MEDS: SPIRONOLACTONE 25 MG TABLET PO SCH (08:28)
[2021-01-01] MEDS: MEMANTINE HCL 10 MG TABLET PO SCH ×2 (08:28→19:54)
[2021-01-01] MEDS: ASPIRIN 81 MG CHEWABLE TABLET PO SCH (08:28)
[2021-01-01] MEDS: GLUCERNA SHAKE 237 ML CAN PO SCH ×2 (08:28→19:55)
[2021-01-01] MEDS: MAGNESIUM OXIDE 400 MG TAB PO SCH ×2 (08:28→19:54)
[2021-01-01] MEDS: TRAMADOL HCL 50 MG TAB PO PRN ×2 (08:31→12:35)
[2021-01-01] MEDS: POLYETHYL GLY 3350 17 GM/DOSE PO SCH (13:48)
--- NOTE | 2021-01-01 17:32 | R.PN ---
PROGRESS NOTES ENCOUNTER DATE AND TIME: 01/01/2021 17:28 (CDT) NAME FRANCE BAUMANN DATE OF : 1945 DATE OF ADMISSION: 12/24/2020 00:05 (CDT) NON TRAUMATIC INFRACEREBRAL HEMORRHAGECHIEF COMPLAINT: Intracerebral hemorrhage SUBJECTIVE: Pt denied any depression. Pt denied any Shortness of Breath. WBC 6.6, Hgb 10.2, prealbumin 12.8, potassium 4.4, calcium 8.0. Ambulated 840' with standby assistance using a rolling walker. Up and down 40 step with contact guard assistance. Repeat UA shows 1+ esterase but is otherwise negative. Repeat CBC with differential is normal. Prealbumin 15.1, B12 > 2000, K 4.4. Repeat UA is negative. VITAL SIGNS Temperature: 97.9 F SBP/DBP: 112/49 Pulse: 52 Resp: 16 MEDICATION ALLERGIES: ANAPROX CODINE DEMEROL AMOXICILLIN IBUPROFEN ENVIRONMENTAL ALLERGIES: - Substance Allergies None Known - Other Allergies None Known NURSING: - Shower allowing shower - Bladder care per protocol - Skin care per protocol ACTIVITIES OOB only with supervision THERAPIES: - Occupational Therapy Cognitive Retraining. Visual Perceptual Training. - Dietary and Nutrition Adequate Nutrition. Nutritional Education. Nutritional Supplements. - Speech Therapy Cognitive Training. Expressive Language Skills. Memory Strategies. Receptive Language Skills. Speech Intelligibility Training. PHYSICAL EXAM - Gen Alert and awake Lying in bed No apparent distress Oriented to: person, time, and place - Skin Right face and upper extremity bruising from fall. Right face hematoma from fall. - Eyes Hematoma around right eye. - ENMT No abnormalities - Neck No stiffness - CVS RRR - Chest Clear - Resp No wheezing - Abd + bowel sounds - GI Non distended Deferred - No abnormalities - Ext No significant edema - MSK 4/5 weakness in all extremities. - Neuro 4/5 strength bilaterally upper and lower extremities. - Psych No abnormalities ASSESSMENT: Pt. is a 75 yo Right-handed female of unknown race.On 12/18/[address] [facility] with diagnosis NON TRAUMATIC INFRACEREBRAL HEMORRHAGE.Her impairment category is Stroke 01 - Other Stroke (.9).Pre-morbidly, Pt. was independent/mod-I in Locomotion, Safety Awareness, Endurance, and Self-Care; and she had good Transfers Control and Sphincter Control.Currently, she has deficits of L ocomotion, Balance, Transfers Control, and Endurance.Pt. is now referred to [facility] for acute in-patient rehabilitation in order to maximize patient's functional independence i n activities of daily living, strength, ROM, and mobility.- Rehab Goal Patient has realistic goal of being discharged at assistance level 7-Ind to reside at Home with Pt s elf. MDM/PLAN: - Physical Therapy Gait dysfunction - to improve, our physical therapists will perform initial evaluation of pt's statu s upon admission and devise an individualized program for Gait Training, and Wheel Chair mobility Inability to transfer - to improve, our physical therapists will perform initial evaluation of pt's status upon admission and devise an individualized program for Bed mobility Need for home safety evaluation - to improve, our physical therapists will perform initial evaluatio n of pt's status upon admission and devise an individualized program for Home Evaluation Need in caregiver upon discharge - to improve, our physical therapists will perform initial evaluati on of pt's status upon admission and devise an individualized program for Caregiver Training New precaution - to improve, our physical therapists will perform initial evaluation of pt's status upon admission and devise an individualized program for Patient precaution education Edema - to improve, our physical therapists will perform initial evaluation of pt's status upon admi ssion and devise an individualized program for Elevation Training, and Lymphedema Therapy Poor balance - to improve, our physical therapists will perform initial evaluation of pt's status up on admission and devise an individualized program for Balance Training Poor endurance - to improve, our physical therapists will perform initial evaluation of pt's status upon admission and devise an individualized program for Endurance Training Weakness - to improve, our physical therapists will perform initial evaluation of pt's status upon a dmission and devise an individualized program for Aquatic Therapy, Neuromuscular Reeducation, and Str engthening Achieving independence - to improve, our physical therapists will perform initial evaluation of pt's status upon admission and devise an individualized program for Community Reintegration Activities - Occupational Therapy Need for urgent care nurse practitioner - to improve, our occupation therapists will perform initial evaluation of pt's status upon admission and devise an individualized program for Caregiver Training Weakness - to improve, our occupation therapists will perform initial evaluation of pt's status upon admission and devise an individualized program for Aquatic Therapy, Balance, Endurance, UE ROM, and UE strengthening - Other See attached MAR (Medication Administration Record) - Diet Type Continue Regular - Diet - Liquid Texture Continue Regular - Tube Feed Continue N/A - Bladder care per protocol - Skin care per protocol - Diet - Solid Texture Continue Regular - Shower allowing shower for Dementia, TBI, Stroke, or others FUNCTIONAL STATUS: UPDATED AT WEEKLY TEAM CONFERENCE - Bladder Same accident frequency: 7-Ind - No accidents in the past 7 days - Bowel Same accident frequency: 7-Ind - No accidents in the past 7 days - Walking Same score based on distance walked: 0(N/A) - Wheelchair Same score based on distance traveled: 0(N/A) FUNCTIONAL STATUS: - Self-Care A. Eating Ind B. Grooming Candy C. Bathing Nelson D. Dressing - Upper sup E. Dressing - Lower Nelson F. Toileting sup - Sphincter Control G. Bladder control Candy H. Bowel control Candy - Transfers Control I. Bed/Chair/Wheelchair sup J. Toilet sup K. Tub/Shower Nelson - Locomotion L. Walk/Wheelchair (B) Nelson M. Stairs ADNO - Communication N. Comprehension (B) Candy O. Expression (B) Candy - Social Cognition P. Social Interaction Ind Q. Problem Solving Candy R. Memory Candy - Endurance Good - Balance Good - Safety Awareness Good QI SCORES: - Self-Care A. Eating 06-Independent B. Oral hygiene 03-Partial/moderate assistance C. Toileting hygiene 02-Substantial/maximal assistance E. Shower/bathe self 03-Partial/moderate assistance F. Upper body dressing 02-Substantial/maximal assistance G. Lower body dressing 02-Substantial/maximal assistance H. Putting on/taking off footwear 88-Not attempted due to medical condition or safety concerns - Mobility A. Roll left and right 03-Partial/moderate assistance B. Sit to lying 03-Partial/moderate assistance C. Lying to sitting on side of bed 03-Partial/moderate assistance D. Sit to stand 03-Partial/moderate assistance E. Chair/[id number] transfer 03-Partial/moderate assistance F. Toilet transfer 03-Partial/moderate assistance G. Car transfer 88-Not attempted due to medical condition or safety concerns I. Walk 10 feet 88-Not attempted due to medical condition or safety concerns J. Walk 50 feet with two turns 88-Not attempted due to medical condition or safety concerns K. Walk 150 feet 88-Not attempted due to medical condition or safety concerns L. Walking 10 feet on uneven surfaces 88-Not attempted due to medical condition or safety concerns M. 1 step (curb) 88-Not attempted due to medical condition or safety concerns N. 4 steps 88-Not attempted due to medical condition or safety concerns O. 12 steps 88-Not attempted due to medical condition or safety concerns P. Picking up object 88-Not attempted due to medical condition or safety concerns R. Wheel 50 feet with two turns 88-Not attempted due to medical condition or safety concerns S. Wheel 150 feet 88-Not attempted due to medical condition or safety concerns - Bladder and Bowel Bladder continence Bowel continence - Endurance Fair - Balance Fair - Safety Awareness Fair CURRENT [facility], [facility]. DEFICITS: Mobility, Endurance, Balance, Safety Awareness, and Self-Care SIGNATURE PANEL: (CDT)
[2021-01-01] MEDS: PARoxetine HCL 10 MG TAB PO SCH (19:53)
[2021-01-01] MEDS: ATORVASTATIN 80 MG TAB PO SCH (19:54)
[2021-01-01] MEDS: GABAPENTIN 300 MG CAP PO SCH (19:54)
[2021-01-01] MEDS: carBAMazepine 200 MG TAB PO SCH (19:55)
--- NOTE | 2021-01-01 21:25 | P.PN ---
Subjective Date of Service: 01/01/21 Chief Complaint: SUBDURAL HEMATOMA Subjective: Improving FRANCE IS STABLE, WEAK, TENDS TO FALL, HAS HAD A FEW STROKES , PELVIC FRACTURE. SHE SAYS SHE HURTS ON R SIDE OF HEAD WHEN SHE MOVES HEAD. SHE HAS NO NEW ISSUES. NO CHANGES. LOOSE PUDDING LIKE STOOL PER CARETAKERS HERE. SHE IS STABLE. NO CHANGES. NO MORE DIARRHEA. SHE SAYS SHE IS IMAGINING AND MAY HAVE UTI. I ORDERED SPECICATH UA. SHE IS WEAK GENERALLY. Physical Examination - Vital Signs Temperature: 97.7 F Blood Pressure: 117/84 Pulse: 57 Respirations: 16 Pulse Ox (%): 96 - Physical Exam General: Oriented x2, Mild distress HEENT: Atraumatic, PERRLA, EOMI Neck: Supple, JVD not distended Respiratory: Clear to auscultation bilaterally, Normal air movement Cardiovascular: Regular rate/rhythm, Normal S1 S2 Gastrointestinal: Normal bowel sounds, No tenderness Musculoskeletal: No tenderness Integumentary: No rashes Neurological: Normal speech, Normal tone, Normal affect Lymphatics: No axilla or inguinal lymphadenopathy - Studies Laboratory Data (last 24 hrs) 01/01/21 06:04: WBC 7.00, Hgb 12.2, Hct 36.2 D, Plt Count 290 D 01/01/21 06:04: Sodium 138, Potassium 4.4, BUN 16, Creatinine 0.77, Glucose 95, Magnesium 2.5 H D Microbiology Data (last 24 hrs): 12/31/20 18:30 Nasopharnyx Coronavirus COVID-19 PCR - Final Medications List Reviewed: Yes Assessment And Plan - Current Problems (Diagnosis) (1) Subdural hematoma Current Visit: Yes Status: Acute Plan: SHE IS HIGH RISK FOR ANTICOAGULATION WITH FALLS AND SHE IS OFF ELIQUIS NOW FOR A WHILE. SHE HAS HEMATOMA FROM HEAD INJURY AND WILL CONTINUE PT HERE. CT SHOWS IMPROVEMNENT OF HEMATOMA. IT IS ORGANIZING NOW WILL OKAY BABY ASPIRIN DAILY SHE IS PRONE TO GET STROKES. 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 STATINS. (4) A-fib Current Visit: No Status: Chronic Plan: ;WILL CHECK EKG HERE TO SEE STATUS. NSR NOW. SHE HAS WATCHMAN PROCEDURE DONE BUT IT FAILED SHE FELL ON HER CHEST. SHE IS NOT A CANDIDATE FOR ANTICOAGUALTION SHE IS A HIGH FALL RISK. Qualifiers: Atrial fibrillation type: unspecified chronic Qualified Code(s): I48.20 - Chronic atrial fibrillation, unspecified; I48.2 - Chronic atrial fibrillation (5) Hypokalemia Current Visit: No Status: Acute Plan: LONNIE MAY HAVE HYPERALDOSTERONISM. START SPIRONOLACTONE 25 MG DAILY. THIS WILL HELP CORRECT K , BP AND REMOVE SALT LOAD. (6) Loose bowel movements Current Visit: Yes Status: Acute Plan: THIS IS NOT WATERY. IT HAS SEMISOLID CONSISTENCY. C DIFF NEG. CHECK O P, C S, WBC, GUAIAC. (7) Impaired mental alertness Current Visit: Yes Status: Acute Plan: I DON'T SEE ANY NEW ISSUES. UA IS BARELY POSITIVE WILL WAIT FOR CULTURE. CULTURE PENDING.
[2021-01-02] MEDS: METOPROLOL TAR 25 MG TAB PO SCH ×2 (05:33→17:15)
[2021-01-02] MEDS: THYROID 30 MG TAB PO SCH (05:33)
[2021-01-02] MEDS: LIDOCAINE 4% PATCH TOP SCH (07:11)
[2021-01-02] MEDS: POLYETHYL GLY 3350 17 GM/DOSE PO SCH (07:11)
[2021-01-02] MEDS: TRAMADOL HCL 50 MG TAB PO PRN (07:20)
[2021-01-02] MEDS: ASPIRIN 81 MG CHEWABLE TABLET PO SCH (08:35)
[2021-01-02] MEDS: GLUCERNA SHAKE 237 ML CAN PO SCH ×2 (08:35→20:34)
[2021-01-02] MEDS: VITAMIN D 1000 UNIT TAB PO SCH (08:36)
[2021-01-02] MEDS: CRANBERRY FRUIT EXTRACT 200 MG CAP PO SCH ×2 (08:36→20:32)
[2021-01-02] MEDS: levETIRAcetam 500 MG TAB PO SCH ×2 (08:37→20:32)
[2021-01-02] MEDS: FAMOTIDINE 20 MG TAB PO SCH (08:37)
[2021-01-02] MEDS: SPIRONOLACTONE 25 MG TABLET PO SCH (08:38)
[2021-01-02] MEDS: MAGNESIUM OXIDE 400 MG TAB PO SCH ×2 (08:39→20:33)
[2021-01-02] MEDS: MEMANTINE HCL 10 MG TABLET PO SCH ×2 (08:39→20:34)
[2021-01-02] MEDS: AMIODARONE HCL 200 MG TAB PO SCH ×2 (08:40→20:34)
[2021-01-02] MEDS: CYANOCOBALAMIN 1,000 MCG TAB PO SCH (08:41)
--- NOTE | 2021-01-02 09:51 | P.RH.PN ---
Estimated Length of Stay: 15 Expected Discharge Date: 01/06/21 Discharge Disposition Plan: Home Family Support: Yes Prison Goal: Mobility, Transfers, Self Care Vital Signs: Last Vital Signs Temp 97.9 F 01/02/21 07:55 Pulse 52 01/02/21 08:38 Resp 16 01/02/21 08:20 BP 118/50 L 01/02/21 08:38 Pulse Ox 97 01/02/21 08:20 Laboratory: Laboratory Last Values WBC 7.00 K/uL (4.3-10.9) 01/01/21 06:04 RBC 4.30 M/uL (3.86-4.86) D 01/01/21 06:04 Hgb 12.2 g/dL (12.0-15.0) 01/01/21 06:04 Hct 36.2 % (36.0-45.0) D 01/01/21 06:04 MCV 84.1 fL (80-100) D 01/01/21 06:04 MCH 28.4 pg (27.0-35.0) 01/01/21 06:04 MCHC 33.8 g/dL (32.0-36.0) 01/01/21 06:04 RDW 18.7 % (12.1-15.2) H 01/01/21 06:04 Plt Count 290 K/uL (152-406) D 01/01/21 06:04 MPV 9.2 fL (7.6-11.3) 01/01/21 06:04 Neutrophils % 64.4 % (41.7-73.7) 01/01/21 06:04 Lymphocytes % 18.8 % (15.3-44.8) 01/01/21 06:04 Monocytes % 11.3 % (3.3-12.3) 01/01/21 06:04 Eosinophils % 2.9 % (0-4.4) 01/01/21 06:04 Basophils % 2.6 % (0-1.3) H 01/01/21 06:04 Absolute Neutrophils 4.5 K/uL (1.8-8.0) 01/01/21 06:04 Absolute Lymphocytes 1.3 K/uL (0.7-4.9) 01/01/21 06:04 Absolute Monocytes 0.8 K/uL (0.1-1.3) 01/01/21 06:04 Absolute Eosinophils 0.2 K/uL (0-0.5) 01/01/21 06:04 Absolute Basophils 0.2 K/uL (0-0.5) 01/01/21 06:04 Sodium 138 mmol/L (136-145) 01/01/21 06:04 Potassium 4.4 mmol/L (3.5-5.1) 01/01/21 06:04 Chloride 104 mmol/L (98-107) 01/01/21 06:04 Carbon Dioxide 31 mmol/L (21-32) 01/01/21 06:04 BUN 16 mg/dL (7-18) 01/01/21 06:04 Creatinine 0.77 mg/dL (0.55-1.3) 01/01/21 06:04 Estimated GFR 73 mL/min (=/>90) L 01/01/21 06:04 Glucose 95 mg/dL (74-106) 01/01/21 06:04 Calcium 8.5 mg/dL (8.5-10.1) 01/01/21 06:04 Magnesium 2.5 mg/dL (1.8-2.4) H D 01/01/21 06:04 Albumin 2.9 g/dL (3.4-5.0) L 01/01/21 06:04 Prealbumin 15.1 mg/dL (20-40) L 01/01/21 06:04 Vitamin B12 > 2000 pg/mL (193-986) H 01/01/21 06:04 Urine Color Yellow (Yellow) 12/31/20 16:40 Urine Appearance Clear (Clear) 12/31/20 16:40 Urine pH 7.0 (5.0-7.0) 12/31/20 16:40 Ur Specific [place] <=1.005 (1.005-1.030) 12/31/20 16:40 Glucose (UA)(Auto) Negative (Negative) 12/31/20 16:40 Urine Ketones Negative (Negative) 12/31/20 16:40 Urine Blood Negative (Negative) 12/31/20 16:40 Urine Nitrite Negative (Negative) 12/31/20 16:40 Urine Bilirubin Negative (Negataive) 12/31/20 16:40 Urine Urobilinogen 0.2 mg/dL (0.2-1.0) 12/31/20 16:40 Ur Leukocyte Esterase 1+ (Negative) H 12/31/20 16:40 Urine RBC <5 /HPF (NONE SEEN) 12/31/20 16:40 Urine WBC <5 /HPF (<5) 12/31/20 16:40 Ur Squamous Epith Cells <5 /HPF (NONE SEEN) 12/31/20 16:40 Ur Urothelial Cells <5 /HPF (NONE SEEN) 12/24/20 00:35 Ur Urothelial Cells Cancelled 12/24/20 00:35 Calcium Oxalate Crystal Cancelled 12/24/20 00:35 Uric Acid Crystals Cancelled 12/24/20 00:35 Triple Phos Crystals Cancelled 12/24/20 00:35 Other Crystals Cancelled 12/24/20 00:35 Amorphous Sediment Cancelled 12/24/20 00:35 Glitter Cells Cancelled 12/24/20 00:35 Urine Bacteria <20 /HPF (<20) 12/31/20 16:40 Hyaline Casts Cancelled 12/24/20 00:35 Fine Granular Casts Cancelled 12/24/20 00:35 Coarse Granular Casts Cancelled 12/24/20 00:35 Waxy Casts Cancelled 12/24/20 00:35 RBC Casts Cancelled 12/24/20 00:35 WBC Casts Cancelled 12/24/20 00:35 Urine Mucus Cancelled 12/24/20 00:35 Urine Other Cancelled 12/24/20 00:35 Urine Trichomonas Cancelled 12/24/20 00:35 Urine Yeast Cancelled 12/24/20 00:35 Ur Yeast w Hyphae Cancelled 12/24/20 00:35 Urine Yeast (Budding) Cancelled 12/24/20 00:35 Urine Sperm Cancelled 12/24/20 00:35 Urine Culture Reflexed Not needed 12/31/20 16:40 Urine Total Volume Cancelled 12/24/20 00:35 Urine Total Protein Negative (Negative) 12/31/20 16:40 C. difficile Ag & Toxin Ag neg : tox neg (NEG : NEG) 12/25/20 13:30 SARS-CoV-2 RNA (RT-PCR) Negative (NEGATIVE) 12/24/20 01:14 Weight: 120 lb 6.4 oz Wound Present: No Closed Surgical Incision Present: No Negative Pressure Wound Therapy Present: No Physician Update: She is making good progress with physical therapy. She is sleepy after tramadol 50 mg may switch to tylenol and lidocaine pain patch. She is walking 1000' and 35 steps yesterday. Labs reviewed and are stable. She is doing doing well with occupational therapy. Functional Improvement: Patient is able to ambulate for 600' with CGA and RW. Patient tends to drift L during ambulation and requires verbal/tactile cues to stay on track. Patient is able to perform stand-pivot transfers with CGA. Patient able to perform toilet transfers SBA <-> independently. Patient continues to experience LoB when not using AD. Patient continues to require skilled PT services to address deficits in functional strength and balance. 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 Please see the Rehabilitation Signature page for all necessary signatures.
[2021-01-02 14:14] VITALS: BMI 22.1
--- NOTE | 2021-01-02 18:58 | P.PN ---
Subjective Date of Service: 01/02/21 Chief Complaint: SUBDURAL HEMATOMA Subjective: No new changes FRANCE IS STABLE, WEAK, TENDS TO FALL, HAS HAD A FEW STROKES , PELVIC FRACTURE. SHE SAYS SHE HURTS ON R SIDE OF HEAD WHEN SHE MOVES HEAD. SHE HAS NO NEW ISSUES. NO CHANGES. LOOSE PUDDING LIKE STOOL PER CARETAKERS HERE. SHE IS STABLE. NO CHANGES. NO MORE DIARRHEA. SHE SAYS SHE IS IMAGINING AND MAY HAVE UTI. I ORDERED SPECICATH UA. SHE IS WEAK GENERALLY. SHE IS FATIGUED SHE IS DOING PT DAILY. Physical Examination - Vital Signs Temperature: 97.9 F Blood Pressure: 159/67 Pulse: 59 Respirations: 16 Pulse Ox (%): 97 - Physical Exam General: Oriented x3, Mild distress HEENT: Atraumatic, PERRLA, EOMI Neck: Supple, JVD not distended Respiratory: Clear to auscultation bilaterally, Normal air movement Cardiovascular: Regular rate/rhythm, Normal S1 S2 Gastrointestinal: Normal bowel sounds, No tenderness Musculoskeletal: No tenderness Integumentary: No rashes Neurological: Normal speech, Abnormal strength (GEN WEAK) Lymphatics: No axilla or inguinal lymphadenopathy - Studies Microbiology Data (last 24 hrs): 01/02/21 16:21 Stool Occult Blood - Final 12/31/20 18:30 Nasopharnyx Coronavirus COVID-19 PCR - Final Medications List Reviewed: Yes Assessment And Plan - Current Problems (Diagnosis) (1) Subdural hematoma Current Visit: Yes Status: Acute Plan: SHE IS HIGH RISK FOR ANTICOAGULATION WITH FALLS AND SHE IS OFF ELIQUIS NOW FOR A WHILE. SHE HAS HEMATOMA FROM HEAD INJURY AND WILL CONTINUE PT HERE. CT SHOWS IMPROVEMNENT OF HEMATOMA. IT IS ORGANIZING NOW WILL OKAY BABY ASPIRIN DAILY SHE IS PRONE TO GET STROKES. 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 STATINS. (4) A-fib Current Visit: No Status: Chronic Plan: ;WILL CHECK EKG HERE TO SEE STATUS. NSR NOW. SHE HAS WATCHMAN PROCEDURE DONE BUT IT FAILED SHE FELL ON HER CHEST. SHE IS NOT A CANDIDATE FOR ANTICOAGUALTION SHE IS A HIGH FALL RISK. Qualifiers: Atrial fibrillation type: unspecified chronic Qualified Code(s): I48.20 - Chronic atrial fibrillation, unspecified; I48.2 - Chronic atrial fibrillation (5) Hypokalemia Current Visit: No Status: Acute Plan: LONNIE MAY HAVE HYPERALDOSTERONISM. START SPIRONOLACTONE 25 MG DAILY. THIS WILL HELP CORRECT K , BP AND REMOVE SALT LOAD. (6) Loose bowel movements Current Visit: Yes Status: Acute Plan: THIS IS NOT WATERY. IT HAS SEMISOLID CONSISTENCY. C DIFF NEG. CHECK O P, C S, WBC, GUAIAC. (7) Impaired mental alertness Current Visit: Yes Status: Acute Plan: I DON'T SEE ANY NEW ISSUES. UA IS BARELY POSITIVE WILL WAIT FOR CULTURE. CULTURE PENDING.
[2021-01-02] MEDS: ATORVASTATIN 80 MG TAB PO SCH (20:32)
[2021-01-02] MEDS: GABAPENTIN 300 MG CAP PO SCH (20:33)
[2021-01-02] MEDS: carBAMazepine 200 MG TAB PO SCH (20:33)
[2021-01-02] MEDS: PARoxetine HCL 10 MG TAB PO SCH (20:34)
[2021-01-03] MEDS: THYROID 30 MG TAB PO SCH (05:13)
[2021-01-03] MEDS: METOPROLOL TAR 25 MG TAB PO SCH ×2 (05:14→16:51)
[2021-01-03] MEDS: POLYETHYL GLY 3350 17 GM/DOSE PO SCH (08:07)
[2021-01-03] MEDS: LIDOCAINE 4% PATCH TOP SCH (08:08)
[2021-01-03] MEDS: CYANOCOBALAMIN 1,000 MCG TAB PO SCH (08:08)
[2021-01-03] MEDS: CRANBERRY FRUIT EXTRACT 200 MG CAP PO SCH ×2 (08:08→20:06)
[2021-01-03] MEDS: ASPIRIN 81 MG CHEWABLE TABLET PO SCH (08:09)
[2021-01-03] MEDS: FAMOTIDINE 20 MG TAB PO SCH (08:09)
[2021-01-03] MEDS: MEMANTINE HCL 10 MG TABLET PO SCH ×2 (08:10→20:06)
[2021-01-03] MEDS: VITAMIN D 1000 UNIT TAB PO SCH (08:10)
[2021-01-03] MEDS: AMIODARONE HCL 200 MG TAB PO SCH ×2 (08:10→20:06)
[2021-01-03] MEDS: levETIRAcetam 500 MG TAB PO SCH ×2 (08:10→20:05)
[2021-01-03] MEDS: SPIRONOLACTONE 25 MG TABLET PO SCH (08:11)
[2021-01-03] MEDS: MAGNESIUM OXIDE 400 MG TAB PO SCH ×2 (08:13→20:00)
[2021-01-03] MEDS: GLUCERNA SHAKE 237 ML CAN PO SCH ×2 (08:14→20:00)
--- NOTE | 2021-01-03 14:19 | P.PN ---
Subjective Date of Service: 01/03/21 Chief Complaint: SUBDURAL HEMATOMA Subjective: No new changes FRANCE IS STABLE, WEAK, TENDS TO FALL, HAS HAD A FEW STROKES , PELVIC FRACTURE. SHE SAYS SHE HURTS ON R SIDE OF HEAD WHEN SHE MOVES HEAD. SHE HAS NO NEW ISSUES. NO CHANGES. LOOSE PUDDING LIKE STOOL PER CARETAKERS HERE. SHE IS STABLE. NO CHANGES. NO MORE DIARRHEA. SHE SAYS SHE IS IMAGINING AND MAY HAVE UTI. I ORDERED SPECICATH UA. SHE IS WEAK GENERALLY. SHE IS FATIGUED SHE IS DOING PT DAILY. SHE IS ABOUT THE SAME. SHE IS CONFUSED TODAY, SAYS WHY DID WE CHANGED FLOOR. SHE SAYS SHE IS NOT ON FIFTH FLOOR ANY LONGER BUT ACTUALLY SHE IS. Physical Examination - Vital Signs Temperature: 97.2 F Blood Pressure: 140/61 Pulse: 55 Respirations: 16 Pulse Ox (%): 95 - Physical Exam General: Oriented x2, Mild distress HEENT: Atraumatic, PERRLA, EOMI Neck: Supple, JVD not distended Respiratory: Clear to auscultation bilaterally, Normal air movement Cardiovascular: Regular rate/rhythm, Normal S1 S2 Gastrointestinal: Normal bowel sounds, No tenderness Musculoskeletal: No tenderness Integumentary: No rashes Neurological: Normal speech, Normal tone, Normal affect Lymphatics: No axilla or inguinal lymphadenopathy - Studies Microbiology Data (last 24 hrs): 01/02/21 16:21 Stool Fecal Leukocyte Stain - Final 12/31/20 16:40 Catheterized Urine [place] Count - Final No growth. 12/31/20 16:40 Catheterized Urine - Final No growth. 01/02/21 16:21 Stool Occult Blood - Final Medications List Reviewed: Yes Assessment And Plan - Current Problems (Diagnosis) (1) Subdural hematoma Current Visit: Yes Status: Acute Plan: SHE IS HIGH RISK FOR ANTICOAGULATION WITH FALLS AND SHE IS OFF ELIQUIS NOW FOR A WHILE. SHE HAS HEMATOMA FROM HEAD INJURY AND WILL CONTINUE PT HERE. CT SHOWS IMPROVEMNENT OF HEMATOMA. IT IS ORGANIZING NOW WILL OKAY BABY ASPIRIN DAILY SHE IS PRONE TO GET STROKES. 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 STATINS. (4) A-fib Current Visit: No Status: Chronic Plan: ;WILL CHECK EKG HERE TO SEE STATUS. NSR NOW. SHE HAS WATCHMAN PROCEDURE DONE BUT IT FAILED SHE FELL ON HER CHEST. SHE IS NOT A CANDIDATE FOR ANTICOAGUALTION SHE IS A HIGH FALL RISK. Qualifiers: Atrial fibrillation type: unspecified chronic Qualified Code(s): I48.20 - Chronic atrial fibrillation, unspecified; I48.2 - Chronic atrial fibrillation (5) Hypokalemia Current Visit: No Status: Acute Plan: LONNIE MAY HAVE HYPERALDOSTERONISM. START SPIRONOLACTONE 25 MG DAILY. THIS WILL HELP CORRECT K , BP AND REMOVE SALT LOAD. (6) Loose bowel movements Current Visit: Yes Status: Acute Plan: THIS IS NOT WATERY. IT HAS SEMISOLID CONSISTENCY. C DIFF NEG. CHECK O P, C S, WBC, GUAIAC. (7) Impaired mental alertness Current Visit: Yes Status: Acute Plan: I DON'T SEE ANY NEW ISSUES. UA IS BARELY POSITIVE WILL WAIT FOR CULTURE. CULTURE PENDING. NO SIGNS OF UTI. ADD THIAMINE 100 MG DAILY.
[2021-01-03] MEDS: ATORVASTATIN 80 MG TAB PO SCH (20:05)
[2021-01-03] MEDS: PARoxetine HCL 10 MG TAB PO SCH (20:05)
[2021-01-03] MEDS: GABAPENTIN 300 MG CAP PO SCH (20:05)
[2021-01-03] MEDS: carBAMazepine 200 MG TAB PO SCH (20:05)
[2021-01-04] MEDS: METOPROLOL TAR 25 MG TAB PO SCH ×2 (05:01→17:07)
[2021-01-04] MEDS: THYROID 30 MG TAB PO SCH (05:06)
[2021-01-04] MEDS: POLYETHYL GLY 3350 17 GM/DOSE PO SCH (08:11)
[2021-01-04] MEDS: LIDOCAINE 4% PATCH TOP SCH (08:11)
[2021-01-04] MEDS: CRANBERRY FRUIT EXTRACT 200 MG CAP PO SCH ×2 (08:12→19:10)
[2021-01-04] MEDS: FAMOTIDINE 20 MG TAB PO SCH (08:14)
[2021-01-04] MEDS: levETIRAcetam 500 MG TAB PO SCH ×2 (08:15→19:10)
[2021-01-04] MEDS: ASPIRIN 81 MG CHEWABLE TABLET PO SCH (08:15)
[2021-01-04] MEDS: VITAMIN D 1000 UNIT TAB PO SCH (08:15)
[2021-01-04] MEDS: SPIRONOLACTONE 25 MG TABLET PO SCH (08:16)
[2021-01-04] MEDS: MEMANTINE HCL 10 MG TABLET PO SCH ×2 (08:16→19:11)
[2021-01-04] MEDS: CYANOCOBALAMIN 1,000 MCG TAB PO SCH (08:17)
[2021-01-04] MEDS: THIAMINE HCL 100 MG TABLET PO SCH (08:17)
[2021-01-04] MEDS: AMIODARONE HCL 200 MG TAB PO SCH ×2 (08:17→19:11)
[2021-01-04] MEDS: GLUCERNA SHAKE 237 ML CAN PO SCH ×2 (08:19→19:11)
[2021-01-04] MEDS: MAGNESIUM OXIDE 400 MG TAB PO SCH ×2 (08:19→19:11)
--- NOTE | 2021-01-04 10:27 | P.PN ---
Subjective Date of Service: 01/04/21 Chief Complaint: SUBDURAL HEMATOMA Subjective: No new changes [place] IS STABLE, WEAK, TENDS TO FALL, HAS HAD A FEW STROKES , PELVIC FRACTURE. SHE SAYS SHE HURTS ON R SIDE OF HEAD WHEN SHE MOVES HEAD. SHE HAS NO NEW ISSUES. NO CHANGES. LOOSE PUDDING LIKE STOOL PER CARETAKERS HERE. SHE IS STABLE. NO CHANGES. NO MORE DIARRHEA. SHE SAYS SHE IS IMAGINING AND MAY HAVE UTI. I ORDERED SPECICATH UA. SHE IS WEAK GENERALLY. SHE IS FATIGUED SHE IS DOING PT DAILY. SHE IS ABOUT THE SAME. SHE IS CONFUSED TODAY, SAYS WHY DID WE CHANGED FLOOR. SHE SAYS SHE IS NOT ON FIFTH FLOOR ANY LONGER BUT ACTUALLY SHE IS. SHE IS NOT CONFUSED TODAY. SHE HAS NO COMPLAINTS. Review of Systems 10-point ROS is otherwise unremarkable Physical Examination - Vital Signs Temperature: 97.5 F Blood Pressure: 140/62 Pulse: 54 Respirations: 18 Pulse Ox (%): 96 - Physical Exam General: Alert, In no apparent distress, Oriented x2 HEENT: Atraumatic, PERRLA, EOMI Neck: Supple, JVD not distended Respiratory: Clear to auscultation bilaterally, Normal air movement Cardiovascular: Regular rate/rhythm, Normal S1 S2 Gastrointestinal: Normal bowel sounds, No tenderness Musculoskeletal: No tenderness Integumentary: No rashes Neurological: Normal speech, Normal tone, Normal affect Lymphatics: No axilla or inguinal lymphadenopathy - Studies Microbiology Data (last 24 hrs): 01/02/21 16:21 Stool Fecal Leukocyte Stain - Final 12/31/20 16:40 Catheterized Urine Hildreth Count - Final No growth. 12/31/20 16:40 Catheterized Urine - Final No growth. Medications List Reviewed: Yes Assessment And Plan - Current Problems (Diagnosis) (1) Subdural hematoma Current Visit: Yes Status: Acute Plan: SHE IS HIGH RISK FOR ANTICOAGULATION WITH FALLS AND SHE IS OFF ELIQUIS NOW FOR A WHILE. SHE HAS HEMATOMA FROM HEAD INJURY AND WILL CONTINUE PT HERE. CT SHOWS IMPROVEMNENT OF HEMATOMA. IT IS ORGANIZING NOW WILL OKAY BABY ASPIRIN DAILY SHE IS PRONE TO GET STROKES. 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 STATINS. (4) A-fib Current Visit: No Status: Chronic Plan: ;WILL CHECK EKG HERE TO SEE STATUS. NSR NOW. SHE HAS WATCHMAN PROCEDURE DONE BUT IT FAILED SHE FELL ON HER CHEST. SHE IS NOT A CANDIDATE FOR ANTICOAGUALTION SHE IS A HIGH FALL RISK. Qualifiers: Atrial fibrillation type: unspecified chronic Qualified Code(s): I48.20 - Chronic atrial fibrillation, unspecified; I48.2 - Chronic atrial fibrillation (5) Hypokalemia Current Visit: No Status: Acute Plan: LONNIE MAY HAVE HYPERALDOSTERONISM. START SPIRONOLACTONE 25 MG DAILY. THIS WILL HELP CORRECT K , BP AND REMOVE SALT LOAD. (6) Loose bowel movements Current Visit: Yes Status: Acute Plan: THIS IS NOT WATERY. IT HAS SEMISOLID CONSISTENCY. C DIFF NEG. CHECK O P, C S, WBC, GUAIAC. (7) Impaired mental alertness Current Visit: Yes Status: Acute Plan: I DON'T SEE ANY NEW ISSUES. UA IS BARELY POSITIVE WILL WAIT FOR CULTURE. CULTURE PENDING. NO SIGNS OF UTI. ADD THIAMINE 100 MG DAILY.
[2021-01-04] MEDS: carBAMazepine 200 MG TAB PO SCH (19:10)
[2021-01-04] MEDS: ATORVASTATIN 80 MG TAB PO SCH (19:10)
[2021-01-04] MEDS: PARoxetine HCL 10 MG TAB PO SCH (19:10)
[2021-01-04] MEDS: GABAPENTIN 300 MG CAP PO SCH (19:11)
[2021-01-05] MEDS: THYROID 30 MG TAB PO SCH (05:27)
[2021-01-05] MEDS: METOPROLOL TAR 25 MG TAB PO SCH ×2 (05:27→17:19)
[2021-01-05] MEDS: POLYETHYL GLY 3350 17 GM/DOSE PO SCH (08:00)
[2021-01-05] MEDS ORDERED: POLYETHYL GLY 3350 17 GM/DOSE PO PRN (08:06)
[2021-01-05] MEDS: ACETAMINOPHEN 500 MG TAB PO PRN (08:41)
[2021-01-05] MEDS: AMIODARONE HCL 200 MG TAB PO SCH ×2 (08:42→19:48)
[2021-01-05] MEDS: FAMOTIDINE 20 MG TAB PO SCH (08:42)
[2021-01-05] MEDS: ASPIRIN 81 MG CHEWABLE TABLET PO SCH (08:42)
[2021-01-05] MEDS: MEMANTINE HCL 10 MG TABLET PO SCH ×2 (08:42→19:49)
[2021-01-05] MEDS: CYANOCOBALAMIN 1,000 MCG TAB PO SCH (08:42)
[2021-01-05] MEDS: CRANBERRY FRUIT EXTRACT 200 MG CAP PO SCH ×2 (08:42→19:48)
[2021-01-05] MEDS: VITAMIN D 1000 UNIT TAB PO SCH (08:43)
[2021-01-05] MEDS: SPIRONOLACTONE 25 MG TABLET PO SCH (08:43)
[2021-01-05] MEDS: levETIRAcetam 500 MG TAB PO SCH ×2 (08:43→19:48)
[2021-01-05] MEDS: THIAMINE HCL 100 MG TABLET PO SCH (08:43)
[2021-01-05] MEDS: MAGNESIUM OXIDE 400 MG TAB PO SCH ×2 (08:43→19:48)
[2021-01-05] MEDS: GLUCERNA SHAKE 237 ML CAN PO SCH ×2 (08:44→19:48)
[2021-01-05] MEDS: LIDOCAINE 4% PATCH TOP SCH (09:05)
--- NOTE | 2021-01-05 18:43 | R.PN ---
PROGRESS NOTES ENCOUNTER DATE AND TIME: 01/05/2021 18:40 (CDT) NAME FRANCE BAUMANN DATE OF : 1945 DATE OF ADMISSION: 12/24/2020 00:05 (CDT) NON TRAUMATIC INFRACEREBRAL HEMORRHAGECHIEF COMPLAINT: Intracerebral hemorrhage SUBJECTIVE: Pt denied any depression. Pt denied any Shortness of Breath. WBC 6.6, Hgb 10.2, prealbumin 12.8, potassium 4.4, calcium 8.0. Ambulated 700' with standby assistance using a rolling walker. Up and down 10 step with standby shelley tance. Repeat UA shows 1+ esterase but is otherwise negative. Repeat CBC with differential is normal. Prealbumin 15.1, B12 > 2000, K 4.4. Repeat UA is negative. VITAL SIGNS Temperature: 98.1 F SBP/DBP: 128/63 Pulse: 51 Resp: 16 MEDICATION ALLERGIES: ANAPROX CODINE DEMEROL AMOXICILLIN IBUPROFEN ENVIRONMENTAL ALLERGIES: - Substance Allergies None Known - Other Allergies None Known NURSING: - Shower allowing shower - Bladder care per protocol - Skin care per protocol ACTIVITIES OOB only with supervision THERAPIES: - Occupational Therapy Cognitive Retraining. Visual Perceptual Training. - Dietary and Nutrition Adequate Nutrition. Nutritional Education. Nutritional Supplements. - Speech Therapy Cognitive Training. Expressive Language Skills. Memory Strategies. Receptive Language Skills. Speech Intelligibility Training. PHYSICAL EXAM - Gen Alert and awake Lying in bed No apparent distress Oriented to: person, time, and place - Skin Right face and upper extremity bruising from fall. Right face hematoma from fall. - Eyes Hematoma around right eye. - ENMT No abnormalities - Neck No stiffness - CVS RRR - Chest Clear - Resp No wheezing - Abd + bowel sounds - GI Non distended Deferred - No abnormalities - Ext No significant edema - MSK 4/5 weakness in all extremities. - Neuro 4/5 strength bilaterally upper and lower extremities. - Psych No abnormalities ASSESSMENT: Pt. is a 75 yo Right-handed female of unknown race.On 12/18/2020 she was admitted to [facility] with diagnosis NON TRAUMATIC INFRACEREBRAL HEMORRHAGE.Her impairment category is Stroke 01 - Other Stroke (01.9).Pre-morbidly, Pt. was independent/mod-I in Locomotion, Safety Awareness, Endurance, and Self-Care; and she had good Transfers Control and Sphincter Control.Currently, she has deficits of L ocomotion, Balance, Transfers Control, and Endurance.Pt. is now referred to [facility] for acute in-patient rehabilitation in order to maximize patient's functional independence i n activities of daily living, strength, ROM, and mobility.- Rehab Goal Patient has realistic goal of being discharged at assistance level 7-Ind to reside at Home with Pt s elf. MDM/PLAN: - Physical Therapy Gait dysfunction - to improve, our physical therapists will perform initial evaluation of pt's statu s upon admission and devise an individualized program for Gait Training, and Wheel Chair mobility Inability to transfer - to improve, our physical therapists will perform initial evaluation of pt's status upon admission and devise an individualized program for Bed mobility Need for home safety evaluation - to improve, our physical therapists will perform initial evaluatio n of pt's status upon admission and devise an individualized program for Home Evaluation Need in caregiver upon discharge - to improve, our physical therapists will perform initial evaluati on of pt's status upon admission and devise an individualized program for Caregiver Training New precaution - to improve, our physical therapists will perform initial evaluation of pt's status upon admission and devise an individualized program for Patient precaution education Edema - to improve, our physical therapists will perform initial evaluation of pt's status upon admi ssion and devise an individualized program for Elevation Training, and Lymphedema Therapy Poor balance - to improve, our physical therapists will perform initial evaluation of pt's status up on admission and devise an individualized program for Balance Training Poor endurance - to improve, our physical therapists will perform initial evaluation of pt's status upon admission and devise an individualized program for Endurance Training Weakness - to improve, our physical therapists will perform initial evaluation of pt's status upon a dmission and devise an individualized program for Aquatic Therapy, Neuromuscular Reeducation, and Str engthening Achieving independence - to improve, our physical therapists will perform initial evaluation of pt's status upon admission and devise an individualized program for Community Reintegration Activities - Occupational Therapy Need for career advisor - to improve, our occupation therapists will perform initial evaluation of pt's status upon admission and devise an individualized program for Caregiver Training Weakness - to improve, our occupation therapists will perform initial evaluation of pt's status upon admission and devise an individualized program for Aquatic Therapy, Balance, Endurance, UE ROM, and UE strengthening - Other See attached MAR (Medication Administration Record) - Diet Type Continue Regular - Diet - Liquid Texture Continue Regular - Tube Feed Continue N/A - Bladder care per protocol - Skin care per protocol - Diet - Solid Texture Continue Regular - Shower allowing shower for Dementia, TBI, Stroke, or others FUNCTIONAL STATUS: UPDATED AT WEEKLY TEAM CONFERENCE - Bladder Same accident frequency: 7-Ind - No accidents in the past 7 days - Bowel Same accident frequency: 7-Ind - No accidents in the past 7 days - Walking Same score based on distance walked: 0(N/A) - Wheelchair Same score based on distance traveled: 0(N/A) FUNCTIONAL STATUS: - Self-Care A. Eating Ind B. Grooming Candy C. Bathing Nelson D. Dressing - Upper sup E. Dressing - Lower Nelson F. Toileting sup - Sphincter Control G. Bladder control Candy H. Bowel control Candy - Transfers Control I. Bed/Chair/Wheelchair sup J. Toilet sup K. Tub/Shower Nelson - Locomotion L. Walk/Wheelchair (B) Nelson M. Stairs ADNO - Communication N. Comprehension (B) Candy O. Expression (B) Candy - Social Cognition P. Social Interaction Ind Q. Problem Solving Candy R. Memory Candy - Endurance Good - Balance Good - Safety Awareness Good QI SCORES: - Self-Care A. Eating 06-Independent B. Oral hygiene 03-Partial/moderate assistance C. Toileting hygiene 02-Substantial/maximal assistance E. Shower/bathe self 03-Partial/moderate assistance F. Upper body dressing 02-Substantial/maximal assistance G. Lower body dressing 02-Substantial/maximal assistance H. Putting on/taking off footwear 88-Not attempted due to medical condition or safety concerns - Mobility A. Roll left and right 03-Partial/moderate assistance B. Sit to lying 03-Partial/moderate assistance C. Lying to sitting on side of bed 03-Partial/moderate assistance D. Sit to stand 03-Partial/moderate assistance E. Chair/[id number] transfer 03-Partial/moderate assistance F. Toilet transfer 03-Partial/moderate assistance G. Car transfer 88-Not attempted due to medical condition or safety concerns I. Walk 10 feet 88-Not attempted due to medical condition or safety concerns J. Walk 50 feet with two turns 88-Not attempted due to medical condition or safety concerns K. Walk 150 feet 88-Not attempted due to medical condition or safety concerns L. Walking 10 feet on uneven surfaces 88-Not attempted due to medical condition or safety concerns M. 1 step (curb) 88-Not attempted due to medical condition or safety concerns N. 4 steps 88-Not attempted due to medical condition or safety concerns O. 12 steps 88-Not attempted due to medical condition or safety concerns P. Picking up object 88-Not attempted due to medical condition or safety concerns R. Wheel 50 feet with two turns 88-Not attempted due to medical condition or safety concerns S. Wheel 150 feet 88-Not attempted due to medical condition or safety concerns - Bladder and Bowel Bladder continence Bowel continence - Endurance Fair - Balance Fair - Safety Awareness Fair [facility] DEFICITS: Mobility, Endurance, Balance, Safety Awareness, and Self-Care SIGNATURE PANEL: (CDT)
[2021-01-05] MEDS: PARoxetine HCL 10 MG TAB PO SCH (20:28)
[2021-01-05] MEDS: ATORVASTATIN 80 MG TAB PO SCH (20:28)
[2021-01-05] MEDS: carBAMazepine 200 MG TAB PO SCH (20:29)
[2021-01-05] MEDS ORDERED: GABAPENTIN 100 MG CAP PO SCH (21:00)
--- NOTE | 2021-01-05 21:19 | P.PN ---
Subjective Date of Service: 01/05/21 Chief Complaint: SUBDURAL HEMATOMA Subjective: Improving [place] IS STABLE, WEAK, TENDS TO FALL, HAS HAD A FEW STROKES , PELVIC FRACTURE. SHE SAYS SHE HURTS ON R SIDE OF HEAD WHEN SHE MOVES HEAD. SHE HAS NO NEW ISSUES. NO CHANGES. LOOSE PUDDING LIKE STOOL PER [facility] HERE. SHE IS STABLE. NO CHANGES. NO MORE DIARRHEA. SHE SAYS SHE IS IMAGINING AND MAY HAVE UTI. I ORDERED SPECICATH UA. SHE IS WEAK GENERALLY. SHE IS FATIGUED SHE IS DOING PT DAILY. SHE IS ABOUT THE SAME. SHE IS CONFUSED TODAY, SAYS WHY DID WE CHANGED FLOOR. SHE SAYS SHE IS NOT ON FIFTH FLOOR ANY LONGER BUT ACTUALLY SHE IS. SHE IS NOT CONFUSED TODAY. SHE HAS NO COMPLAINTS. SHE IS STABLE. S HE MAY GO HOME IN AM. Physical Examination - Vital Signs Temperature: 97.8 F Blood Pressure: 149/53 Pulse: 55 Respirations: 16 Pulse Ox (%): 98 - Physical Exam General: Oriented x2, Mild distress HEENT: Atraumatic, PERRLA, EOMI Neck: Supple, JVD not distended Respiratory: Clear to auscultation bilaterally, Normal air movement Cardiovascular: Regular rate/rhythm, Normal S1 S2 Gastrointestinal: Normal bowel sounds, No tenderness Musculoskeletal: No tenderness Integumentary: No rashes Neurological: Normal speech, Normal tone, Normal affect Lymphatics: No axilla or inguinal lymphadenopathy - Studies Medications List Reviewed: Yes Assessment And Plan - Current Problems (Diagnosis) (1) Subdural hematoma Current Visit: Yes Status: Acute Plan: SHE IS HIGH RISK FOR ANTICOAGULATION WITH FALLS AND SHE IS OFF ELIQUIS NOW FOR A WHILE. SHE HAS HEMATOMA FROM HEAD INJURY AND WILL CONTINUE PT HERE. CT SHOWS IMPROVEMNENT OF HEMATOMA. IT IS ORGANIZING NOW WILL OKAY BABY ASPIRIN DAILY SHE IS PRONE TO GET STROKES. 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 STATINS. (4) A-fib Current Visit: No Status: Chronic Plan: ;WILL CHECK EKG HERE TO SEE STATUS. NSR NOW. SHE HAS WATCHMAN PROCEDURE DONE BUT IT FAILED SHE FELL ON HER CHEST. SHE IS NOT A CANDIDATE FOR ANTICOAGUALTION SHE IS A HIGH FALL RISK. Qualifiers: Atrial fibrillation type: unspecified chronic Qualified Code(s): I48.20 - Chronic atrial fibrillation, unspecified; I48.2 - Chronic atrial fibrillation (5) Hypokalemia Current Visit: No Status: Acute Plan: LONNIE MAY HAVE HYPERALDOSTERONISM. START SPIRONOLACTONE 25 MG DAILY. THIS WILL HELP CORRECT K , BP AND REMOVE SALT LOAD. (6) Loose bowel movements Current Visit: Yes Status: Acute Plan: THIS IS NOT WATERY. IT HAS SEMISOLID CONSISTENCY. C DIFF NEG. CHECK O P, C S, WBC, GUAIAC. (7) Impaired mental alertness Current Visit: Yes Status: Acute Plan: I DON'T SEE ANY NEW ISSUES. UA IS BARELY POSITIVE WILL WAIT FOR CULTURE. CULTURE PENDING. NO SIGNS OF UTI. ADD THIAMINE 100 MG DAILY.
[2021-01-06] MEDS: THYROID 30 MG TAB PO SCH (05:17)
[2021-01-06] MEDS: METOPROLOL TAR 25 MG TAB PO SCH ×2 (05:17→17:05)
[2021-01-06 07:55] VITALS: TEMP 98
[2021-01-06] MEDS: LIDOCAINE 4% PATCH TOP SCH (08:03)
[2021-01-06] MEDS: ASPIRIN 81 MG CHEWABLE TABLET PO SCH (08:20)
[2021-01-06] MEDS: ACETAMINOPHEN 500 MG TAB PO PRN (08:20)
[2021-01-06] MEDS: VITAMIN D 1000 UNIT TAB PO SCH (08:20)
[2021-01-06] MEDS: CRANBERRY FRUIT EXTRACT 200 MG CAP PO SCH (08:20)
[2021-01-06] MEDS: GLUCERNA SHAKE 237 ML CAN PO SCH (08:21)
[2021-01-06] MEDS: MAGNESIUM OXIDE 400 MG TAB PO SCH (08:21)
[2021-01-06] MEDS: FAMOTIDINE 20 MG TAB PO SCH (08:21)
[2021-01-06] MEDS: AMIODARONE HCL 200 MG TAB PO SCH (08:22)
[2021-01-06] MEDS: levETIRAcetam 500 MG TAB PO SCH (08:22)
[2021-01-06] MEDS: MEMANTINE HCL 10 MG TABLET PO SCH (08:22)
[2021-01-06] MEDS: SPIRONOLACTONE 25 MG TABLET PO SCH (08:22)
[2021-01-06] MEDS: THIAMINE HCL 100 MG TABLET PO SCH (08:22)
[2021-01-06] MEDS: CYANOCOBALAMIN 1,000 MCG TAB PO SCH (08:22)
[2021-01-06 17:10] VITALS: BP 130/60
--- NOTE | 2021-01-06 19:10 | R.PN ---
PROGRESS NOTES ENCOUNTER DATE AND TIME: 01/06/2021 19:07 (CDT) NAME FRANCE BAUMANN DATE OF : 1945 DATE OF ADMISSION: 12/24/2020 00:05 (CDT) NON TRAUMATIC INFRACEREBRAL HEMORRHAGECHIEF COMPLAINT: Intracerebral hemorrhage SUBJECTIVE: Pt denied any depression. Pt denied any Shortness of Breath. WBC 6.6, Hgb 10.2, prealbumin 12.8, potassium 4.4, calcium 8.0. Ambulated 850' with standby assistance using a rolling walker. Up and down 20 step with standby shelley tance. Repeat UA shows 1+ esterase but is otherwise negative. Repeat CBC with differential is normal. Prealbumin 15.1, B12 > 2000, K 4.4. Repeat UA is negative. VITAL SIGNS Temperature: 98.0 F SBP/DBP: 130/60 Pulse: 56 Resp: 16 MEDICATION ALLERGIES: ANAPROX CODINE DEMEROL AMOXICILLIN IBUPROFEN ENVIRONMENTAL ALLERGIES: - Substance Allergies None Known - Other Allergies None Known NURSING: - Shower allowing shower - Bladder care per protocol - Skin care per protocol ACTIVITIES OOB only with supervision THERAPIES: - Occupational Therapy Cognitive Retraining. Visual Perceptual Training. - Dietary and Nutrition Adequate Nutrition. Nutritional Education. Nutritional Supplements. - Speech Therapy Cognitive Training. Expressive Language Skills. Memory Strategies. Receptive Language Skills. Speech Intelligibility Training. PHYSICAL EXAM - Gen Alert and awake Lying in bed No apparent distress Oriented to: person, time, and place - Skin Right face and upper extremity bruising from fall. Right face hematoma from fall. - Eyes Hematoma around right eye. - ENMT No abnormalities - Neck No stiffness - CVS RRR - Chest Clear - Resp No wheezing - Abd + bowel sounds - GI Non distended Deferred - No abnormalities - Ext No significant edema - MSK 4/5 weakness in all extremities. - Neuro 4/5 strength bilaterally upper and lower extremities. - Psych No abnormalities ASSESSMENT: Pt. is a 75 yo Right-handed female of unknown race.On 12/18/2020 she was admitted to [facility] with diagnosis NON TRAUMATIC INFRACEREBRAL HEMORRHAGE.Her impairment category is Stroke 01 - Other Stroke (01.9).Pre-morbidly, Pt. was independent/mod-I in Locomotion, Safety Awareness, Endurance, and Self-Care; and she had good Transfers Control and Sphincter Control.Currently, she has deficits of L ocomotion, Balance, Transfers Control, and Endurance.Pt. is now referred to [facility] for acute in-patient rehabilitation in order to maximize patient's functional independence i n activities of daily living, strength, ROM, and mobility.- Rehab Goal Patient has realistic goal of being discharged at assistance level 7-Ind to reside at Home with Pt s elf. MDM/PLAN: - Physical Therapy Gait dysfunction - to improve, our physical therapists will perform initial evaluation of pt's statu s upon admission and devise an individualized program for Gait Training, and Wheel Chair mobility Inability to transfer - to improve, our physical therapists will perform initial evaluation of pt's status upon admission and devise an individualized program for Bed mobility Need for home safety evaluation - to improve, our physical therapists will perform initial evaluatio n of pt's status upon admission and devise an individualized program for Home Evaluation Need in caregiver upon discharge - to improve, our physical therapists will perform initial evaluati on of pt's status upon admission and devise an individualized program for Caregiver Training New precaution - to improve, our physical therapists will perform initial evaluation of pt's status upon admission and devise an individualized program for Patient precaution education Edema - to improve, our physical therapists will perform initial evaluation of pt's status upon admi ssion and devise an individualized program for Elevation Training, and Lymphedema Therapy Poor balance - to improve, our physical therapists will perform initial evaluation of pt's status up on admission and devise an individualized program for Balance Training Poor endurance - to improve, our physical therapists will perform initial evaluation of pt's status upon admission and devise an individualized program for Endurance Training Weakness - to improve, our physical therapists will perform initial evaluation of pt's status upon a dmission and devise an individualized program for Aquatic Therapy, Neuromuscular Reeducation, and Str engthening Achieving independence - to improve, our physical therapists will perform initial evaluation of pt's status upon admission and devise an individualized program for Community Reintegration Activities - Occupational Therapy Need for rn long term care - to improve, our occupation therapists will perform initial evaluation of pt's status upon admission and devise an individualized program for Caregiver Training Weakness - to improve, our occupation therapists will perform initial evaluation of pt's status upon admission and devise an individualized program for Aquatic Therapy, Balance, Endurance, UE ROM, and UE strengthening - Other See attached MAR (Medication Administration Record) - Diet Type Continue Regular - Diet - Liquid Texture Continue Regular - Tube Feed Continue N/A - Bladder care per protocol - Skin care per protocol - Diet - Solid Texture Continue Regular - Shower allowing shower for Dementia, TBI, Stroke, or others FUNCTIONAL STATUS: UPDATED AT WEEKLY TEAM CONFERENCE - Bladder Same accident frequency: 7-Ind - No accidents in the past 7 days - Bowel Same accident frequency: 7-Ind - No accidents in the past 7 days - Walking Same score based on distance walked: 0(N/A) - Wheelchair Same score based on distance traveled: 0(N/A) FUNCTIONAL STATUS: - Self-Care A. Eating Ind B. Grooming Candy C. Bathing Nelson D. Dressing - Upper sup E. Dressing - Lower Nelson F. Toileting sup - Sphincter Control G. Bladder control Candy H. Bowel control Candy - Transfers Control I. Bed/Chair/Wheelchair sup J. Toilet sup K. Tub/Shower Nelson - Locomotion L. Walk/Wheelchair (B) Nelson M. Stairs ADNO - Communication N. Comprehension (B) Candy O. Expression (B) Candy - Social Cognition P. Social Interaction Ind Q. Problem Solving Candy R. Memory Candy - Endurance Good - Balance Good - Safety Awareness Good QI SCORES: - Self-Care A. Eating 06-Independent B. Oral hygiene 03-Partial/moderate assistance C. Toileting hygiene 02-Substantial/maximal assistance E. Shower/bathe self 03-Partial/moderate assistance F. Upper body dressing 02-Substantial/maximal assistance G. Lower body dressing 02-Substantial/maximal assistance H. Putting on/taking off footwear 88-Not attempted due to medical condition or safety concerns - Mobility A. Roll left and right 03-Partial/moderate assistance B. Sit to lying 03-Partial/moderate assistance C. Lying to sitting on side of bed 03-Partial/moderate assistance D. Sit to stand 03-Partial/moderate assistance E. Chair/[id number] transfer 03-Partial/moderate assistance F. Toilet transfer 03-Partial/moderate assistance G. Car transfer 88-Not attempted due to medical condition or safety concerns I. Walk 10 feet 88-Not attempted due to medical condition or safety concerns J. Walk 50 feet with two turns 88-Not attempted due to medical condition or safety concerns K. Walk 150 feet 88-Not attempted due to medical condition or safety concerns L. Walking 10 feet on uneven surfaces 88-Not attempted due to medical condition or safety concerns M. 1 step (curb) 88-Not attempted due to medical condition or safety concerns N. 4 steps 88-Not attempted due to medical condition or safety concerns O. 12 steps 88-Not attempted due to medical condition or safety concerns P. Picking up object 88-Not attempted due to medical condition or safety concerns R. Wheel 50 feet with two turns 88-Not attempted due to medical condition or safety concerns S. Wheel 150 feet 88-Not attempted due to medical condition or safety concerns - Bladder and Bowel Bladder continence Bowel continence - Endurance Fair - Balance Fair - Safety Awareness Fair [facility] DEFICITS: Mobility, Endurance, Balance, Safety Awareness, and Self-Care SIGNATURE PANEL: (CDT)
--- NOTE | 2021-01-06 20:45 | P.PN ---
Subjective Date of Service: 01/06/21 Chief Complaint: SUBDURAL HEMATOMA Subjective: No new changes FRANCE IS STABLE, WEAK, TENDS TO FALL, HAS HAD A FEW STROKES , PELVIC FRACTURE. SHE SAYS SHE HURTS ON R SIDE OF HEAD WHEN SHE MOVES HEAD. SHE HAS NO NEW ISSUES. NO CHANGES. LOOSE PUDDING LIKE STOOL PER CARETAKERS HERE. SHE IS STABLE. NO CHANGES. NO MORE DIARRHEA. SHE SAYS SHE IS IMAGINING AND MAY HAVE UTI. I ORDERED SPECICATH UA. SHE IS WEAK GENERALLY. SHE IS FATIGUED SHE IS DOING PT DAILY. SHE IS ABOUT THE SAME. SHE IS CONFUSED TODAY, SAYS WHY DID WE CHANGED FLOOR. SHE SAYS SHE IS NOT ON FIFTH FLOOR ANY LONGER BUT ACTUALLY SHE IS. SHE IS NOT CONFUSED TODAY. SHE HAS NO COMPLAINTS. SHE IS STABLE. S HE MAY GO HOME IN AM. SHE STAYS SOMNOLENT. I ASKED IF DR. RGACE CAN STOP TEGRETOL I SEE HER MORE SEDATED SINCE THEM. HE GAVE THIS TO HER FOR FACIAL PAIN AFTER SUBDURAL HEMATOMA AND FACIAL HEMATOMA. Physical Examination - Vital Signs Temperature: 98.0 F Blood Pressure: 130/60 Pulse: 56 Respirations: 16 Pulse Ox (%): 97 - Studies Medications List Reviewed: Yes Assessment And Plan - Current Problems (Diagnosis) (1) Subdural hematoma Status: Acute Plan: SHE IS HIGH RISK FOR ANTICOAGULATION WITH FALLS AND SHE IS OFF ELIQUIS NOW FOR A WHILE. SHE HAS HEMATOMA FROM HEAD INJURY AND WILL CONTINUE PT HERE. CT SHOWS IMPROVEMNENT OF HEMATOMA. IT IS ORGANIZING NOW WILL OKAY BABY ASPIRIN DAILY SHE IS PRONE TO GET STROKES. 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 STATINS. (4) A-fib Status: Chronic Plan: ;WILL CHECK EKG HERE TO SEE STATUS. NSR NOW. SHE HAS WATCHMAN PROCEDURE DONE BUT IT FAILED SHE FELL ON HER CHEST. SHE IS NOT A CANDIDATE FOR ANTICOAGUALTION SHE IS A HIGH FALL RISK. Qualifiers: Atrial fibrillation type: unspecified chronic Qualified Code(s): I48.20 - Chronic atrial fibrillation, unspecified; I48.2 - Chronic atrial fibrillation (5) Hypokalemia Status: Acute Plan: LONNIE MAY HAVE HYPERALDOSTERONISM. START SPIRONOLACTONE 25 MG DAILY. THIS WILL HELP CORRECT K , BP AND REMOVE SALT LOAD. (6) Loose bowel movements Status: Acute Plan: THIS IS NOT WATERY. IT HAS SEMISOLID CONSISTENCY. C DIFF NEG. CHECK O P, C S, WBC, GUAIAC. (7) Impaired mental alertness Status: Acute Plan: I DON'T SEE ANY NEW ISSUES. UA IS BARELY POSITIVE WILL WAIT FOR CULTURE. CULTURE PENDING. NO SIGNS OF UTI. ADD THIAMINE 100 MG DAILY.
--- NOTE | 2021-01-16 16:30 | R.DS ---
DISCHARGE SUMMARY FACILITY [facility] MR# [id number] NAME FRANCE BAUMANN ADDRESS [address] [place] [address] [address]IP [id number] PHONE DATE OF 1945 AGE 75 SSN# [id number] GENDER Female DEXTERITY Right-handed MARITAL STATUS RACE Unknown race ENCOUNTER PHYSICIAN Dr. Luke Major M.D. REFERRING DOCTOR KEVEN CABRERA MD REFERRING FACILITY [facility] DISCHARGE DIAGNOSIS: - Stroke 01 - Other Stroke (9) NON TRAUMATIC INFRACEREBRAL HEMORRHAGE. DATE OF ADMISSION 12/24/2020 00:05 (CDT) MEDICATION ALLERGIES: ANAPROX CODINE DEMEROL AMOXICILLIN IBUPROFEN ENVIRONMENTAL ALLERGIES: - Substance Allergies None Known - Other Allergies None Known DISCHARGE MEDICATIONS: Other- ContinueSee attached MAR (Medication Administration Record). NURSING: - Shower allowing shower - Bladder care per protocol - Skin care per protocol ACTIVITIES OOB only with supervision THERAPIES: - Occupational Therapy Cognitive Retraining Visual Perceptual Training - Dietary and Nutrition Adequate Nutrition Nutritional Education Nutritional Supplements - Speech Therapy Cognitive Training Expressive Language Skills Memory Strategies Receptive Language Skills Speech Intelligibility Training HISTORY OF PRESENT ILLNESS: Pt. is a 75 yo Right-handed female of unknown race.On 12/18/2020 she was admitted to [facility] with diagnosis NON TRAUMATIC INFRACEREBRAL HEMORRHAGE.Her impairment category is Stroke 01 - Other Stroke (09.27).Pre-morbidly, Pt. was independent/mod-I in Locomotion, Safety Awareness, Endurance, and Self-Care; and she had good Transfers Control and Sphincter Control.Currently, she has deficits of L ocomotion, Balance, Transfers Control, and Endurance.Pt. is now referred to [facility] for acute in-patient rehabilitation in order to maximize patient's functional independence i n activities of daily living, strength, ROM, and mobility.- Rehab Goal Patient has realistic goal of being discharged at assistance level 7-Ind to reside at Home with Pt s elf. HOSPITAL COURSE: DIET - LIQUID TEXTURE: On 12/22/2020 Pt was upgraded to Regular Diet - Liquid Texture. DIET - SOLID TEXTURE: On 12/22/2020 Pt was upgraded to Regular Diet - Solid Texture. DIET TYPE: On 12/22/2020 Pt was upgraded to Regular Diet Type. TUBE FEED: On 12/22/2020 Pt was changed to N/A Tube Feed. DISCHARGE PHYSICAL EXAM - Gen Alert and awake Lying in bed No apparent distress Oriented to: person, time, and place - Skin Right face and upper extremity bruising from fall. Right face hematoma from fall. - Eyes Hematoma around right eye. - ENMT No abnormalities - Neck No stiffness - CVS RRR - Chest Clear - Resp No wheezing - Abd + bowel sounds - GI Non distended Deferred - No abnormalities - Ext No significant edema - MSK 4/5 weakness in all extremities. - Neuro 4/5 strength bilaterally upper and lower extremities. - Psych No abnormalities FUNCTIONAL STATUS: - Self-Care A. Eating 7-Ind B. Grooming 6-Candy C. Bathing 6-Candy D. Dressing - Upper 6-Candy E. Dressing - Lower 6-Candy F. Toileting 6-Candy - Sphincter Control G. Bladder control 6-Candy H. Bowel control 6-Candy - Transfers Control I. Bed/Chair/Wheelchair 6-Candy J. Toilet 6-Candy K. Tub/Shower 6-Candy - Locomotion L. Walk/Wheelchair (B) 6-Candy M. Stairs 6-Candy - Communication N. Comprehension (B) 6-Candy O. Expression (B) 6-Candy - Social Cognition P. Social Interaction 7-Ind Q. Problem Solving 6-Candy R. Memory 6-Candy - Endurance Good - Balance Good - Safety Awareness Good QI SCORES: - Self-Care A. Eating 06-Independent B. Oral hygiene 03-Partial/moderate assistance C. Toileting hygiene 02-Substantial/maximal assistance E. Shower/bathe self 03-Partial/moderate assistance F. Upper body dressing 02-Substantial/maximal assistance G. Lower body dressing 02-Substantial/maximal assistance H. Putting on/taking off footwear 88-Not attempted due to medical condition or safety concerns - Mobility A. Roll left and right 03-Partial/moderate assistance B. Sit to lying 03-Partial/moderate assistance C. Lying to sitting on side of bed 03-Partial/moderate assistance D. Sit to stand 03-Partial/moderate assistance E. Chair/mdd-mn-[id number] transfer 03-Partial/moderate assistance F. Toilet transfer 03-Partial/moderate assistance G. Car transfer 88-Not attempted due to medical condition or safety concerns I. Walk 10 feet 88-Not attempted due to medical condition or safety concerns J. Walk 50 feet with two turns 88-Not attempted due to medical condition or safety concerns K. Walk 150 feet 88-Not attempted due to medical condition or safety concerns L. Walking 10 feet on uneven surfaces 88-Not attempted due to medical condition or safety concerns M. 1 step (curb) 88-Not attempted due to medical condition or safety concerns N. 4 steps 88-Not attempted due to medical condition or safety concerns O. 12 steps 88-Not attempted due to medical condition or safety concerns P. Picking up object 88-Not attempted due to medical condition or safety concerns R. Wheel 50 feet with two turns 88-Not attempted due to medical condition or safety concerns S. Wheel 150 feet 88-Not attempted due to medical condition or safety concerns - Bladder and Bowel Bladder continence Bowel continence - Endurance Fair - Balance Fair - Safety Awareness Fair DISCHARGE INSTRUCTIONS: - N/A Aspirin 81 mg and Plavix 75 mg daily. DISCHARGE PLAN, FOLLOW UP CARE PROVISIONS: - Estimated Length of Stay (days) 17. - Consensus on plan Discharge plan has been discussed with primary caregiver. Patient/Family is in agreement with the jeremy n. Primary caregiver is in agreement with the plan. - Patient/Family Goals Return home independently. - Planned Living Setting Upon Discharge Home, to live alone. Transitional Living. Primary caregiver: Pt self. SIGNATURE PANEL: (CDT)
== END 2021-01-06 18:00 | disposition home health service (06) | DRG 949 ==
LOC: 5TH 00:14
PROVIDERS: ADMIT Psychiatry & Neurology Neurology with Special Qualifications in Child Neurology; ATTEND Psychiatry & Neurology Neurology with Special Qualifications in Child Neurology
DX: S00.93XD Contusion of unspecified part of head, subsequent encounter (principal); I48.20 Chronic atrial fibrillation, unspecified; I10 Essential (primary) hypertension; E78.5 Hyperlipidemia, unspecified; E87.6 Hypokalemia; I69.398 Other sequelae of cerebral infarction; F01.50 Vascular dementia, unspecified severity, without behavioral disturbance, psychotic disturbance, mood disturbance, and anxiety; I48.91 Unspecified atrial fibrillation; Z96.659 Presence of unspecified artificial knee joint; Z98.84 Bariatric surgery status; Z88.1 Allergy status to other antibiotic agents; Z88.5 Allergy status to narcotic agent; Z88.8 Allergy status to other drugs, medicaments and biological substances; Z90.710 Acquired absence of both cervix and uterus; Z79.82 Long term (current) use of aspirin; Z79.02 Long term (current) use of antithrombotics/antiplatelets; Z79.899 Other long term (current) drug therapy; Z20.822 Contact with and (suspected) exposure to COVID-19
CPT/HCPCS: 36415; 70450; 80048; 81001; 81003; 81015; 82040; 82274; 82607; 83735; 84134; 85025; 87045; 87046; 87086; 87088; 87324; 87449; 89055; 92523; 93005; 97110; 97112; 97116; 97127; 97161; 97530; U0002; U0003

== ENCOUNTER 2021-03-02 23:09 | Emergency (ER) | payer OTHER ==
--- NOTE | 2021-03-03 01:38 | EDPHYS ---
Physician Documentation [facility] Name: Sharla Tesfaye Age: 76 yrs Sex: Female : 1945 Arrival Date: 03/02/2021 Time: 23:11 Bed 8 Private MD: ED Physician Nilesh Clemente HPI: 03/03 03:52 This 76 yrs old Female presents to ER via Wheelchair with complaints of Fall tw4 Injury, Head Injury Without LOC-Adult, Elbow Injury, Shoulder Pain, TAILBONE. 03:52 Details of fall: The patient fell from an upright position, while standing. Onset: The tw4 symptoms/episode began/occurred today. Associated injuries: The patient sustained no obvious injury. Severity of symptoms: At their worst the symptoms were moderate, in the emergency department the symptoms are unchanged. The patient has not experienced similar symptoms in the past. Historical: - Allergies: 00:04 Amoxicillin; jb4 00:04 annaprox; jb4 00:04 Codeine; jb4 00:04 Demerol; jb4 00:04 Etodolac; jb4 00:04 Ibuprofen; jb4 - Home Meds: 00:04 gabapentin 100 mg oral cap nightly [Active]; atorvastatin 80 mg oral tab 1 tab once jb4 daily [Active]; paroxetine HCl 20 mg Oral tab 1 tab once daily [Active]; aspirin 81 mg Oral chew 1 tab once daily [Active]; d3 [Active]; spironolactone 25 mg Oral tab 1 tab once daily [Active]; Plavix 75 mg Oral tab 1 tab once daily [Active]; amiodarone 200 mg Oral tab 1 tab 2 times per day [Active]; famotidine 40 mg Oral tab 1 tab once daily [Active]; memantine 10 mg oral tab 1 tab 2 times per day [Active]; trospium 20 mg oral tab 1 tab [Active]; levetiracetam 500 mg oral tab 1 tab 2 times per day [Active]; metoprolol tartrate 25 mg Oral tab .5 tab 2 times per day [Active]; - PMHx: 00:04 Atrial Fib; High Cholesterol; Hypertension; CVA; Dementia; jb4 - PSHx: 00:04 Cholecystectomy; Hysterectomy; Gastric Bypass; Tonsillectomy; Knee surgery; jb4 Appendectomy; - Immunization history:: Adult Immunizations up to date. - Immunization history: Last tetanus immunization: unknown. - Social history:: Smoking status: Patient denies any tobacco usage or history of. Patient/guardian denies using alcohol, street drugs. ROS: 03:52 Constitutional: Negative for fever, chills, and weight loss, Eyes: Negative for injury, tw4 pain, redness, and discharge, Cardiovascular: Negative for chest pain, palpitations, and edema, Respiratory: Negative for shortness of breath, cough, wheezing, and pleuritic chest pain, Abdomen/GI: Negative for abdominal pain, nausea, vomiting, diarrhea, and constipation, Back: Negative for injury and pain, MS/Extremity: Negative for injury and deformity, Skin: Negative for injury, rash, and discoloration, Neuro: Negative for headache, weakness, numbness, tingling, and seizure. Exam: 03:52 Constitutional: This is a well developed, well nourished patient who is awake, alert, tw4 and in no acute distress. 03:52 Chest/axilla: Normal chest wall appearance and motion. Nontender with no deformity. No lesions are appreciated. Cardiovascular: Regular rate and rhythm with a normal S1 and S2. No gallops, murmurs, or rubs. Normal PMI, no JVD. No pulse deficits. Respiratory: Lungs have equal breath sounds bilaterally, clear to auscultation and percussion. No rales, rhonchi or wheezes noted. No increased work of breathing, no retractions or nasal flaring. Abdomen/GI: Soft, non-tender, with normal bowel sounds. No distension or tympany. No guarding or rebound. No evidence of tenderness throughout. Back: No spinal tenderness. No costovertebral tenderness. Full range of motion. Skin: Warm, dry with normal turgor. Normal color with no rashes, no lesions, and no evidence of cellulitis. MS/ Extremity: Pulses equal, no cyanosis. Neurovascular intact. Full, normal range of motion. Neuro: Awake and alert, GCS 15, oriented to person, place, time, and situation. Cranial nerves II-XII grossly intact. Motor strength 5/5 in all extremities. Sensory grossly intact. Cerebellar exam normal. Normal gait. 03:52 Head/face: Noted is contusion. Vital Signs: 03/02 23:53 BP 144 / 73; Pulse 57; Resp 18; Temp 97.7(O); Pulse Ox 100% on R/A; Weight 51.26 kg jb4 (R); Height 5 ft. 1 in. (154.94 cm) (R); Pain 8/10; 03/03 00:45 BP 132 / 66; Pulse 62; Resp 15; Pulse Ox 100% on R/A; jb4 01:30 BP 116 / 69; Pulse 74; Resp 18; Pulse Ox 98% on R/A; jb4 03/02 23:53 Body Mass Index 21.35 (51.26 kg, 154.94 cm) jb4 Duane Coma Score: 03/02 23:53 Eye Response: spontaneous(4). Verbal Response: oriented(5). Motor Response: obeys jb4 commands(6). Total: 15. 03/03 00:45 Eye Response: spontaneous(4). Verbal Response: oriented(5). Motor Response: obeys jb4 commands(6). Total: 15. 01:30 Eye Response: spontaneous(4). Verbal Response: oriented(5). Motor Response: obeys jb4 commands(6). Total: 15. Trauma Score (Adult): 03/02 23:53 Eye Response: spontaneous(1); Verbal Response: oriented(1); Motor Response: obeys jb4 commands(2); Systolic BP: > 89 mm Hg(4); Respiratory Rate: 10 to 29 per min(4); Dayton Score: 15; Trauma Score: 12 03/03 00:45 Eye Response: spontaneous(1); Verbal Response: oriented(1); Motor Response: obeys jb4 commands(2); Systolic BP: > 89 mm Hg(4); Respiratory Rate: 10 to 29 per min(4); Duane Score: 15; Trauma Score: 12 01:30 Eye Response: spontaneous(1); Verbal Response: oriented(1); Motor Response: obeys jb4 commands(2); Systolic BP: > 89 mm Hg(4); Respiratory Rate: 10 to 29 per min(4); Duane Score: 15; Trauma Score: 12 MDM: 03/02 23:41 Patient medically screened. tw4 03/03 03:55 Differential diagnosis: abrasion, closed head injury, contusion. Data reviewed: vital tw4 signs, nurses notes. Data interpreted: Pulse oximetry: Interpretation: normal. Counseling: I had a detailed discussion with the patient and/or guardian regarding: the historical points, exam findings, and any diagnostic results supporting the discharge/admit diagnosis, radiology results. Special discussion: Based on the patient's history, exam and DX evaluation, there is no indication for emergent intervention or inpatient TX. It is understood by the patient/guardian that if the SXs persist or worsen they need to return immediately for re-evaluation. I discussed with the patient/guardian in detail that at this point there is no indication for admission to the hospital. It is understood, however, that if the symptoms persist or worsen the patient needs to return immediately for re-evaluation. 03/02 23:17 Order name: CT Head C Spine tw4 03/03 00:23 Order name: Shoulder Left (2 View) XRAY tw4 03/03 00:23 Order name: Elbow Left 2 View XRAY tw4 03/03 00:45 Order name: Sacrum And Coccyx XRAY tw4 Administered Medications: No medications were administered Disposition: 03/03/21 01:37 Discharged to Home. Impression: Contusion of unspecified part of head, Contusion of left shoulder, Contusion of left elbow, Contusion of unspecified back wall of thorax. - Condition is Stable. - Discharge Instructions: Head Injury, Adult, [id number]. - Medication Reconciliation Form, Thank You Letter, Antibiotic Education, Prescription Opioid Use form. - Follow up: Private Physician; When: Upon discharge from the Emergency Department; Reason: Recheck today's complaints, Continuance of care, Re-evaluation by your physician. - Problem is new. - Symptoms have improved. Signatures: Dispatcher [employer] EDWI Joshua Watson RN RN jb4 Nilesh Clemente MD MD tw4 Corrections: (The following items were deleted from the chart) 02:02 01:37 03/03/2021 01:37 Discharged to Home. Impression: Contusion of unspecified part of jb4 head; Contusion of left shoulder; Contusion of left elbow; Contusion of unspecified back wall of thorax. Condition is Stable. Forms are Medication Reconciliation Form, Thank You Letter, Antibiotic Education, Prescription Opioid Use. Follow up: Private Physician; When: Upon discharge from the Emergency Department; Reason: Recheck today's complaints, Continuance of care, Re-evaluation by your physician. Problem is new. Symptoms have improved. tw4
--- NOTE | 2021-03-03 01:38 | ER ---
Nurse's Notes [facility] Name: Sharla Tesfaye Age: 76 yrs Sex: Female : 1945 Arrival Date: 03/02/2021 Time: 23:11 Bed 8 Private MD: Diagnosis: Contusion of unspecified part of head;Contusion of left shoulder;Contusion of left elbow;Contusion of unspecified back wall of thorax Presentation: 03/02 23:53 Chief complaint: Patient's son or daughter states: She fell last Tuesday and did not jb4 tell anyone. Tonight she was trying to cook and let go of her walker and fell into the wall and down to the floor. Care prior to arrival: None. Mechanism of Injury: Fall from standing position. Trauma event details: Injury occurred in the [facility]. 23:53 Acuity: JENNIFER 2 jb4 23:53 Method Of Arrival: Wheelchair jb4 23:57 Coronavirus screen: Client denies travel out of the [place] in the last 14 days. Ebola jb4 Screen: Patient negative for fever greater than or equal to 101.5 degrees Fahrenheit, and additional compatible Ebola Virus Disease symptoms. Initial Sepsis Screen: Does the patient meet any 2 criteria? HR > 90 bpm. Yes Does the patient have a suspected source of infection? No. Patient's initial sepsis screen is negative. Risk Assessment: Do you want to hurt yourself or someone else? Patient reports no desire to harm self or others. Onset of symptoms was March 02, 2021. Transition of care: patient was not received from another setting of care. Trauma Activation: Alert Physician: ED Physician; Name: ander; Notified At: 23:45; Arrived At: 23:58 Physician: General Surgeon; Name: ; Notified At: ; Arrived At: Physician: Radiology; Name: Sonali; Notified At: 23:45; Arrived At: 23:50 Physician: Respiratory; Name: ; Notified At: ; Arrived At: Physician: Lab; Name: ; Notified At: ; Arrived At: Historical: - Allergies: 03/03 00:04 Amoxicillin; jb4 00:04 annaprox; jb4 00:04 Codeine; jb4 00:04 Demerol; jb4 00:04 Etodolac; jb4 00:04 Ibuprofen; jb4 - Home Meds: 00:04 gabapentin 100 mg oral cap nightly [Active]; atorvastatin 80 mg oral tab 1 tab once jb4 daily [Active]; paroxetine HCl 20 mg Oral tab 1 tab once daily [Active]; aspirin 81 mg Oral chew 1 tab once daily [Active]; d3 [Active]; spironolactone 25 mg Oral tab 1 tab once daily [Active]; Plavix 75 mg Oral tab 1 tab once daily [Active]; amiodarone 200 mg Oral tab 1 tab 2 times per day [Active]; famotidine 40 mg Oral tab 1 tab once daily [Active]; memantine 10 mg oral tab 1 tab 2 times per day [Active]; trospium 20 mg oral tab 1 tab [Active]; levetiracetam 500 mg oral tab 1 tab 2 times per day [Active]; metoprolol tartrate 25 mg Oral tab .5 tab 2 times per day [Active]; - PMHx: 00:04 Atrial Fib; High Cholesterol; Hypertension; CVA; Dementia; jb4 - PSHx: 00:04 Cholecystectomy; Hysterectomy; Gastric Bypass; Tonsillectomy; Knee surgery; jb4 Appendectomy; - Immunization history:: Adult Immunizations up to date. - Immunization history: Last tetanus immunization: unknown. - Social history:: Smoking status: Patient denies any tobacco usage or history of. Patient/guardian denies using alcohol, street drugs. Screenin/14 23:53 Abuse screen: Denies threats or abuse. Nutritional screening: No deficits noted. jb4 Tuberculosis screening: No symptoms or risk factors identified. Fall risk At risk due to injury, immobility, prior history of falls, Intervention for positive screen: ED Physician notified, instructed to call for assist when getting up, side rails up. Exposure risk/Travel Screening: None identified. 23:53 Fall Risk Fall in past 12 months (25 points). Secondary diagnosis (15 points) dementia, jb4 Ambulatory Aid- Crutches/Cane/Walker (15 pts). Gait- Weak (10 pts.). Mental Status- Overestimates/Forgets Limitations (15 pts.). Total Santoro Fall Scale indicates High Risk Score (45 or more points). Fall prevention measures have been instituted. Side Rails Up X 2 Placed Close to Nursing Station Frequent Obs/Assessments Occuring Family Present and informed to notify staff if the need to leave the bedside As available patient and family educated on Fall Prevention Program and Strategies. Primary Survey: 23:53 NO uncontrolled hemorrhage observed. A: The patient is alert. Airway: patent, No jb4 supplemental oxygen in use on arrival. Oral cavity: clear, gag reflex present. Breathing/Chest: Respiratory pattern: regular, Respiratory effort: spontaneous, unlabored, Chest inspection: symmetrical rise and fall of the chest. Circulation: Skin color: pink, Skin temperature: warm, dry. Disability Alert. Exposure/Environment: All clothing and personal items were removed. Forensic evidence collection is not deemed to be indicated at this time. Items placed in patient belonging bag. 03/03 00:45 Reassessment Airway Airway Patent Oxygen No O2 Oral cavity Clear +Gag reflex jb4 Breathing/Chest Respiratory pattern Regular Respiratory effort Spontaneous Unlabored Chest inspection Symmetrical Circulation Color [place] Temperature Warm Dry Disability Alert. Assessment: 03/02 23:53 General: Appears in no apparent distress. comfortable, Behavior is calm, cooperative, jb4 appropriate for age. Pain: Complains of pain in buttocks Pain does not radiate. Pain currently is 8 out of 10 on a pain scale. Neuro: Level of Consciousness is awake, alert, obeys commands, Oriented to person, place, time, situation. Cardiovascular: Patient's skin is warm and dry. Respiratory: Airway is patent Respiratory effort is even, unlabored, Respiratory pattern is regular, symmetrical. GI: No signs and/or symptoms were reported involving the gastrointestinal system. : No signs and/or symptoms were reported regarding the genitourinary system. EENT: No signs and/or symptoms were reported regarding the EENT system. Derm: Skin is intact, Skin is pink, warm \T\ dry. Musculoskeletal: Circulation, motion, and sensation intact. Range of motion: intact in all extremities. 03/03 00:45 Reassessment: Patient appears in no apparent distress at this time. Patient and/or jb4 family updated on plan of care and expected duration. Pain level reassessed. Patient is alert, oriented x 3, equal unlabored respirations, skin warm/dry/pink. 01:45 Reassessment: Patient appears in no apparent distress at this time. Patient and/or jb4 family updated on plan of care and expected duration. Pain level reassessed. Patient is alert, oriented x 3, equal unlabored respirations, skin warm/dry/pink. Vital Signs: 03/02 23:53 BP 144 / 73; Pulse 57; Resp 18; Temp 97.7(O); Pulse Ox 100% on R/A; Weight 51.26 kg jb4 (R); Height 5 ft. 1 in. (154.94 cm) (R); Pain 8/10; 03/03 00:45 BP 132 / 66; Pulse 62; Resp 15; Pulse Ox 100% on R/A; jb4 01:30 BP 116 / 69; Pulse 74; Resp 18; Pulse Ox 98% on R/A; jb4 03/02 23:53 Body Mass Index 21.35 (51.26 kg, 154.94 cm) jb4 Duane Coma Score: 03/02 23:53 Eye Response: spontaneous(4). Verbal Response: oriented(5). Motor Response: obeys jb4 commands(6). Total: 15. 03/03 00:45 Eye Response: spontaneous(4). Verbal Response: oriented(5). Motor Response: obeys jb4 commands(6). Total: 15. 01:30 Eye Response: spontaneous(4). Verbal Response: oriented(5). Motor Response: obeys jb4 commands(6). Total: 15. Trauma Score (Adult): 03/02 23:53 Eye Response: spontaneous(1); Verbal Response: oriented(1); Motor Response: obeys jb4 commands(2); Systolic BP: > 89 mm Hg(4); Respiratory Rate: 10 to 29 per min(4); Duane Score: 15; Trauma Score: 12 03/03 00:45 Eye Response: spontaneous(1); Verbal Response: oriented(1); Motor Response: obeys jb4 commands(2); Systolic BP: > 89 mm Hg(4); Respiratory Rate: 10 to 29 per min(4); Duane Score: 15; Trauma Score: 12 01:30 Eye Response: spontaneous(1); Verbal Response: oriented(1); Motor Response: obeys jb4 commands(2); Systolic BP: > 89 mm Hg(4); Respiratory Rate: 10 to 29 per min(4); Clare Score: 15; Trauma Score: 12 ED Course: 03/02 23:11 Patient arrived in ED. cf2 23:17 Nilesh Clemente MD is Attending Physician. tw4 23:52 Joshua Watson RN is Primary Nurse. jb4 23:53 Patient has correct armband on for positive identification. Bed in low position. Call jb4 light in reach. Side rails up X 1. 23:53 Arm band placed on right wrist. jb4 23:53 Patient maintains SpO2 saturation greater than 95% on room air. Thermoregulation: warm jb4 blanket given to patient. 23:55 Triage completed. jb4 03/03 00:12 CT Head C Spine In Process Unspecified. EDMS 01:21 Shoulder Left (2 View) XRAY In Process Unspecified. EDMS 01:21 Elbow Left 2 View XRAY In Process Unspecified. EDMS 01:22 Sacrum And Coccyx XRAY In Process Unspecified. EDMS 02:01 No provider procedures requiring assistance completed. Patient did not have IV access jb4 during this emergency room visit. Administered Medications: No medications were administered Intake: 00:45 PO: 0ml; Total: 0ml. jb4 Output: 00:45 Urine: 0ml; Total: 0ml. jb4 Outcome: 01:00 Patient's length of stay in the Emergency Department was greater than 2 hours. D/c jb4 pending radiology results.Patient's length of stay extended due to 01:37 Discharge ordered by . tw4 02:01 Discharged to home via wheelchair, with family. jb4 02:01 Condition: stable 02:01 Discharge instructions given to patient, family, Instructed on discharge instructions, follow up and referral plans. Demonstrated understanding of instructions, follow-up care. 02:02 Patient left the ED. jb4 Signatures: Dispatcher [employer] EDMS Joshua Watson, RN RN jb4 Nilesh Clemente MD MD tw4 Kimberley Rowland cf2 Corrections: (The following items were deleted from the chart) 00:05 03/02 23:53 Trauma Activation: Alert; ED Physician ander notified at 23:45; jb4 Radiology Sonali notified at 23:45, arrived at 23:50 jb4
[2021-03-03 02:13] VITALS: TEMP 97.7
[2021-03-03 02:17] VITALS: BP 116/69; O2SAT 98
--- NOTE | 2021-03-03 07:05 | RAD REPORT ---
EXAM DESCRIPTION: RAD - Shoulder Left 2 View - 03/03/2021 1:21 am CLINICAL HISTORY: TRAUMA, multiple falls with left shoulder pain COMPARISON: Shoulder Left 2 View dated 06/06/2020 TECHNIQUE: Internal and external rotation views of the left shoulder were obtained. FINDINGS: No dislocation of the humeral head. No acute fracture change identifiable. Bony degenerati ve changes are present in the greater tuberosity and along the articular margins of the humeral head. Tendon calcification is suspected. No AC joint separation or fracture at the AC joint. Acromial charisma ral joint space is normal. No pathologic process. Upper ribs appear intact. IMPRESSION: Left shoulder joint degenerative changes are present similar to May 2020.
--- NOTE | 2021-03-03 07:08 | RAD REPORT ---
EXAM DESCRIPTION: RAD - Elbow Left 2 View - 03/03/2021 1:21 am CLINICAL HISTORY: TRAUMA, multiple falls COMPARISON: July 2017 FINDINGS: No fracture is confirmed and no elevated posterior fat pad. Faint oblique lucency near the medial epicondyle does not fully traverse the elbow. There is spurring at the medial upper condyle. There is no dislocation or periosteal reaction noted. No foreign body or other soft tissue abnormali ty. Patient has a small spur at the triceps attachment to the olecranon. IMPRESSION: No fracture confirmed. Degenerative changes are present as detailed. There is a faint lucency in the medial epicondyle of the distal humerus favored to be artifact. Repea t imaging in 7 days would be recommended if the patient continues to have symptoms concerning for fra cture.
--- NOTE | 2021-03-03 07:10 | RAD REPORT ---
EXAM DESCRIPTION: RAD - Sacrum And Coccyx - 03/03/2021 1:22 am CLINICAL HISTORY: PAIN, multiple falls COMPARISON: LUMBAR SPINE 3 VIEWS dated 07/05/2014; SPINE LUMBAR W OBLIQUE dated 12/11/2013; Hip Right 2 View dated 12/18/2020 FINDINGS: Lower lumbar degenerative changes are present but only partially imaged. Sacral ala are gr ossly intact but again only partially imaged due to overlying bowel content. Remodeling changes of th e superior and inferior pubic rami on the right and the inferior pubic ramus on the left have the anna earance of old remodeled fracture. Acute fracture lines are not confirmed. Lateral view shows no confirmed sacrum or coccyx fracture. No displacement or alignment abnormality. Bones are osteopenic. Surgical hardware is present in the proximal left femur only minimally imaged. IMPRESSION: Degenerative changes are present as detailed. No acute fractures are identifiable.
--- NOTE | 2021-03-03 10:45 | RAD REPORT ---
EXAM DESCRIPTION: CT - [id number] - 03/03/2021 6:56 am CLINICAL HISTORY: 76-year-old female status post trauma. COMPARISON: 01/05/2021. TECHNIQUE: CT brain without contrast. This exam was performed according to our departmental dose opt imization program which includes use of automated exposure control, adjustment of the mA and/or kV ac cording to patient size and/or use of iterative reconstruction technique. FINDINGS: Multifocal regions of patchy hypoattenuation are present in a subcortical and periventricu lar deep white matter distribution, nonspecific; however, most likely represent small vessel ischemic disease, age indeterminate. Focal area of hypoattenuation is identified at the level of the posterior RIGHT frontal centrum semio nicolle stable in comparison to the previous examination suggesting sequela of prior infarction. The ventricles, and sulci are prominent compatible with underlying volume loss. The rhodes-white benigno er differentiation is preserved. There is no mass effect, midline shift, intra- or extra-axial flui d collection/acute hemorrhage. Interval resolution of prior right-sided acute subdural hematoma. The osseous structures are unremarkable. The paranasal sinuses and mastoid air cells are clear. IMPRESSION: 1. No acute intracranial abnormalities. Nonspecific white matter change most likely sm all vessel ischemic disease, age indeterminate. 2. CT is insensitive for early evaluation of acute stroke. If there is clinical concern for acute ischemia, an MRI may be considered. TECHNIQUE: Cervical spine CT was performed without contrast. Multiplanar reformatted images were pro vided. This exam was performed according to our departmental dose optimization program which includes use of automated exposure control, adjustment of the mA and/or kV according to patient size and/or u se of iterative reconstruction technique. COMPARISON: 02/18/2020. 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 There is normal alignment of the cervical spine without fracture or subluxation. The facets are cecilia l in alignment bilaterally. The posterior elements including the spinous processes are intact. Straig htening of the cervical spine which may be secondary to positioning for the examination. Morphology and attenuation of the vertebral bodies and intervertebral disk spaces is compatible with multilevel degenerative change. Multilevel loss of intervertebral disk height. Multilevel posterior osseous spurring results in neuro foraminal narrowing throughout the cervical spine. Mild disk bulge present at C4-5, C5-6 vertebral levels. Endplate irregularities of the C7, T1 and T2 vertebral levels suggestive of endplate degenerative dennys nge versus sequela of prior chronic appearing compression deformity. Sequela of prior rib fractures identified involving the posterior RIGHT second and third ribs with ca lcification. The remainder of the ribs terminating off the [id number] of the examination, new sinc e the previous examination dated 02/18/2020. The pre-and paravertebral soft tissues are within normal limits. IMPRESSION: 1. Straightening of the cervical spine which may be secondary to positioning for the exa mination versus spasm. 2. Multilevel degenerative change without fracture or acute subluxation. 3. Sequela of prior rib fractures identified involving the posterior RIGHT second and third ribs with callus formation. The remainder of the ribs terminating off the didci-bj-bloc of the examination, ne w since the previous examination dated 02/18/2020. Electronically signed by: Hollie German MD 03/03/2021 12:37 AM CDT Due to temporary technical issues with the PACS/Fluency reporting system, reports are being signed by the in house radiologist without review as a courtesy to ensure prompt reporting. The interpreting r adiologist is fully responsible for the content of the report.
== END 2021-03-03 02:02 | disposition home or self-care (01) ==
LOC: ER 23:09
DX: S00.83XA Contusion of other part of head, initial encounter (principal); S40.012A Contusion of left shoulder, initial encounter; S50.02XA Contusion of left elbow, initial encounter; S20.222A Contusion of left back wall of thorax, initial encounter; W18.39XA Other fall on same level, initial encounter; E78.00 Pure hypercholesterolemia, unspecified; I10 Essential (primary) hypertension; I48.91 Unspecified atrial fibrillation; Z79.01 Long term (current) use of anticoagulants; Z79.82 Long term (current) use of aspirin; Z88.1 Allergy status to other antibiotic agents; Z88.5 Allergy status to narcotic agent; Z88.6 Allergy status to analgesic agent; Z88.8 Allergy status to other drugs, medicaments and biological substances; Z86.73 Personal history of transient ischemic attack (TIA), and cerebral infarction without residual deficits
CPT/HCPCS: 70450; 72125; 72220

== ENCOUNTER 2021-03-12 11:16 | Observation (INO) | payer OTHER ==
--- OUTSIDE RECORDS SUMMARY | 2021-03-12 12:09 | XMS REPORT | Continuity of Care Document ---
:1945 Author Organization [facility] t Address [address] [place] [address] Care Team Providers Name Role Phone Salvatore Mathis MD Primary Care Physician [phone] Jennifer Attending Clinician Thu Attending Clinician Ameena Attending Clinician Alex Salmeron Attending Clinician Bebe Carson Attending Clinician Milena Aguilar Attending Clinician Sasha Attending Clinician Joselyn Wyatt Attending Clinician LAURA EARLY Attending Clinician Unavailable Jennifer Admitting Clinician Thu Admitting Clinician Michelle Johnson Admitting Clinician Joselyn Wyatt Admitting Clinician Payers Payer Name Policy Type Policy Effective Date Expiration Date Sour ce Number AETNA - MEDICARE [id number] 2018 GONZALO Meghanrock MGD CAREAETNA 00:00:00 - Medical MEDICARE HMO Center [id number] [id number] Contracted Problems Condition Condition Condition Status Onset Resolution Last Treating Co mments Source Name Details Category Date Date Treatment Clinician Date ACUTE Diagnosis Active 2021-01-05 Mem oria INTRACEREB 12-18 21:58:00 l RAL ACUTE 00:00: Aniket HEMORRHAGE INTRACEREB 00 RAL HEMORRHAGE Active 12/18/2020 [facility] ACUTE Diagnosis Active 2020-12-18 Mem oria SUBDURAL 12-18 22:57:00 l RIGHT SIDE ACUTE 00:00: Latoya nn SUBDURAL 00 RIGHT SIDE Active 12/18/2020 [facility] S/P LEFT Diagnosis Active 2020-12-19 M emoria ATRIAL 09-30 13:16:00 l APPENDAGE S/P LEFT 00:00: Her delgado LIGATION ATRIAL 00 APPENDAGE LIGATION Active 09/30/2020 [facility] POSSIBLE Diagnosis Active 2020-06-19 M emoria STROKE 06-08 23:13:00 l POSSIBLE 00:00: Boyd n STROKE 00 Active 06/08/2020 [facility] OTHER Diagnosis Active 2020-06-09 Mem oria SPECIFIED 04-08 17:53:00 l POSTPROCED OTHER 00:00: Latoya nn URAL SPECIFIED 00 STATES POSTPROCED URAL STATES Active 04/08/2020 [facility] ACUTE CVA Diagnosis Active 2020-04-16 Memoria (CEREBROVA 04-06 21:56:00 l SCULAR ACUTE 00:00: Aniket ACCIDENT) CVA 00 (CEREBROVA SCULAR ACCIDENT) Active 04/06/2020 [facility] STROKE Diagnosis Active 2020-04-06 Mem oria 7- 03:53:00 l STROKE 00:00: Aniket 00 Active 04/06/2020 [facility] 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 [place] [facility] a 2-20 [facility] 00:[facility]: st 00 Status Status Disease Active 2017-09 [place] [facility] 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[facility] gastric gastric 00:00: st bypass for bypass for 00 obesity obesity Carpal Carpal Disease Active [facility] tunnel 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 00:00: st of right of right 00 wrist wrist Carpal Carpal Disease Active 2017-0 [place] tunnel tunnel 1-19 [facility] syndrome syndrome 00:00: st on right on right 00 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 Me thodi s with s with 00:00: st myelopathy myelopathy 00 and and radiculopa radiculopa thy thy Arthropath Arthropath Disease Active [place] y of right y of right 10-07 Me thodi shoulder shoulder 00:00: st 00 Single Problem 2020-12-22 Memor ia liveborn 08:44:19 l infant, Single [place] delivered liveborn vaginally infant, delivered vaginally 12/22/2020 [facility] Illness, Problem 2020-12-25 Mem oria unspecifie 23:12:54 l d Illness, [place] n unspecifie d 12/25/2020 [facility] CEREBRAL Diagnosis Active 2020-04-16 M emoria INFARCTION 21:56:00 l , CEREBRAL [place] n UNSPECIFIE INFARCTION D , UNSPECIFIE D Active [facility] NONTRAUMAT Diagnosis Active 2021-01-05 Memoria IC 21:58:00 l INTRACEREB [place] n RAL NONTRAUMAT HEMORRHAGE IC , U INTRACEREB RAL HEMORRHAGE , U Active [facility] ILLNESS, Diagnosis Active 2020-12-18 M emoria UNSPECIFIE 22:57:00 l D ILLNESS, [place] n UNSPECIFIE D Active [facility] SINGLE Diagnosis Active 2020-12-19 Mem oria LIVEBORN 13:16:00 l INFANT, SINGLE Aniket DELIVERED LIVEBORN VAGINA INFANT, DELIVERED VAGINA Active [facility] Pain in Pain in Problem Active [facility] shoulder [facility] Other Other Problem Active [facility] closed closed [facility] - displaced displaced Mauro javon fracture fracture l of of Outpati proximal proximal ent end of end of Clinics right right humerus humerus with with routine routine healing, healing, subsequent subsequent encounter encounter Trigger Trigger Problem Active [facility] finger of finger of Luke s - both hands both hands Ia moria l [facility] Encounter Encounter Problem Active [facility] for other for other Luke s - orthopedic orthopedic Ia moria aftercare aftercare l [facility] Pain, Pain, Problem Active [facility] joint, joint, [facility] - hip, left hip, left Mauro javon l [facility] Closed Closed Problem Active [...] nerve pain nerve pain Me moria l [facility] Pain in Pain in Diagnosis [facility] knee left knee Mauro javon l [facility] Allergies, Adverse Reactions, Alerts [...] 00:00: st reaction 00 s to drug morphine morphine Active Memori a l Aniket ibuprofe ibuprofe Active Memori a n n l Aniket Anaprox Anaprox Active Memoria l Aniket amoxicil amoxicil Active Memori a lauren lauren l Aniket Demerol Demerol Active Memoria l [place] Codeine Codeine Active Memoria Phosphat Phosphat l e-Guaife e-Guaife [place] n nesin nesin Ibuprofe Adverse Active HIVES [facility] n Reaction [facility] Amoxicil Adverse Active Info Not [facility] la[facility] Reaction Available [facility] Demerol Adverse Active Info Not [facility] Reaction Available [facility] Family History Family Member Diagnosis Comments Start Date Stop Date Source Natural father Heart disease [facility] Natural father Hypertension [facility] Natural father Arthritis [facility] Natural father Asthma [facility] Natural father Diabetes [facility] Natural mother Cancer [facility] Natural mother Gall[facility]adder [facility] [place] [facility] Natural sister Diabetes [facility] Natural sister Gallbladder [facility] Natural sister Heart disease [facility] Natural sister Hepatitis [facility]odist Natural sister Hypertension [facility] Social History Social Habit Start Date Stop Date Quantity Comments Source Social History 2020-06-08 2020-06-08 [facility] H ermann 21:13:49 21:13:49 Tobacco use and 2018-09-07 2018-09-07 Never used Madi Nichols ethodist exposure 00:00:00 00:00:00 Alcohol intake 2018-09-07 2018-09-07 Current [place] [facility] 00:00:00 00:00:00 non-drinker of alcohol (finding) Sex [birth year] Madi Nichols ethodist 00:00:00 00:00:00 Smoking Status Start Date Stop Date Source Never smoker [place] [facility] Medications Ordered Filled Start Stop Current Ordering Indication Dosage Frequency Signature Comments Components Source Medication Medication Date Date Medication? Clinician (SIG) Name Name Lidocaine Yes 1 patch, Mauro javon 0.04 MG/MG 12-23 TOP, l Medicated 20:45: Daily, 0 Herm juni Patch 00 Refill(s) Levetiracet Yes 500 mg = 1 Memoria am 500 MG 12-23 tab, PO, l Oral Tablet 20:45: Q12H, 0 Her delgado 00 Refill(s) Acetaminoph No 1 tab, Mauro javon en / 12-23 Route: PO, l butalbital 20:08: Drug Form: H [place] / Caffeine 00 TAB, Q6H, PRN Headache 1-5, Start date: 12/23/20 15:08:00 CDT, Duration: 30 day, Stop date: 01/22/21 15:07:00 CDT, 0 Aspirin 325 No 1 cap, Mauro javon MG / 06 Route: PO, l butalbital 19:33: Drug Form: H [place] 50 MG / 00 CAP, Caffeine 40 Dosing MG Oral Weight Capsule 55.1, kg, [Fiorinal] Q6H, PRN Headache 1-5, Start date: 12/23/20 14:33:00 CDT, Duration: 30 day, Stop date: 01/22/21 14:32:00 CDT Tylenol No Notes: Do Memor ia 4-05 not exceed l 16:37: 4 gm/day. [place] (Same as: Tylenol) Aspirin No Notes: Do Memor ia 4-05 not crush l 14:00: or chew. [place] (Same As: Ecotrin) heparin No Notes: Memoria sodium, -05 porcine l porcine 02:00: heparin Aniket 2500 UNT/ML 00 Injectable Solution gabapentin No Notes: Memor ia 300 MG Oral 12-20 (Same as: l Capsule 18:00: Neurontin) Herm juni Robaxin No Notes: Memoria - (Same l 14:31: as:Robaxin Aniket 00 ) lidocaine No Notes: Memori a 4% patch 12-20 (Same as: l 04:02: Aspercreme [place] 00 Lidocaine Patch) atorvastati No Notes: Mauro javon n 12-20 (Same as: l 02:00: Lipitor) [place] 00 Paroxetine No Notes: Memor ia 03 (Same as: l 02:00: Paxil) Aniket 00 Hazardous Drug Group 3:Reproduc tive risk Hazardous Drug -- Refer to safe handling procedure PPE Matrix Sodium No 250 ml, Memoria Chloride 12-19 Rate: 999 l 0.9% IV 250 17:05: ml/hr, Herm juni mL 00 Infuse over: 0.3 hr, Route: IV, Dosing Weight 55.1 kg, Total Volume: 250, Priority: NOW, Start date: 12/19/20 12:05:00 CDT, Duration: 1 doses or times, Stop date: 12/19/20 12:22:00 CDT, 1.56, m2, 0 remove No 1 patch, Memoria patch 12-19 Route: l 16:00: TOP, Aniket 00 Daily, Drug form: ERFILM, Start date: 12/19/20 11:00:00 CDT, Duration: 30 day, Stop date: 01/17/21 11:00:00 CDT, 0 Tylenol No Notes: Do Memor ia 12-19 not exceed l 14:24: 4 gm/day. [place] (Same as: Tylenol) sennosides, No Notes: Mauro javon [facility] - (Same as: l 14:00: Senokot) Saline No 10 ml, Memoria Flush 0.9% 12-19 Route: l 14:00: IVP, Drug Form: INJ, Dosing Weight 54.091, kg, Q12H, Start date: 12/19/20 9:00:00 CDT, Duration: 30 day, Stop date: 01/17/21 21:00:00 CDT Levetiracet No 500 mg, Mem oria am 12-19 Route: PO, l 14:00: Drug form: [place] 00 TAB, Q12H, Dosing Weight 55.1, kg, Start date: 12/19/20 9:00:00 CDT, Duration: 30 day, Stop date: 01/17/21 21:00:00 CDT Amiodarone No Notes: Memor ia - (Same as: l 14:00: Cordarone) Vitamin D3 No Notes: Memor ia 1000 intl 12-19 Same as : l units oral 14:00: Vitamin D3 [place] Vitamin B12 No Notes: Mauro javon - (Same As: l 14:00: Vitamin [place] B-12) Famotidine No Notes: Memor ia 4-02 (Same as: l 14:00: Pepcid) Memantine No Notes: Memori a -02 (Same As: l 14:00: Namenda) metoprolol No Notes: Memor ia tartrate -02 (Same as: l 14:00: Lopressor) potassium No 20 mEq, 1 Mem oria chloride 20 4-02 tab, l mEq oral 14:00: Route: PO, Her delgado tablet, 00 Drug form: extended ERTAB, release BID, (KCL) Dosing Weight 55.1, kg, Start date: 12/19/20 9:00:00 CDT, Duration: 30 day, Stop date: 01/17/21 17:00:00 CDT gabapentin No Notes: Memor ia 300 MG Oral 12-19 (Same as: l Capsule 13:00: Neurontin) Herm thyroid No Notes: Memoria ([facility]) 12-19 (Same As: l 11:30: [place] Thyroid, S-P-T) Potassium No Notes: Memori a Chloride 12-19 (Same as: l 04:51: KCL) 10 00 mEq/100ml product recommende d for peripheral line administra tion. Infuse no faster than 10 mEq/hr if given peripheral ly. sodium No Notes: Memoria phosphate 12-19 Infuse l 04:51: over 4 hour. Do not infuse phosphorou s concurrent ly in the same line as TPN or IVF that contains calcium. For double lumen central lines, phosphorou s may be infused in a separate lumen from TPN. potassium No Notes: Memori a phosphate 12-19 (Same as: l 04:51: K Phosphate. ) Do not infuse phosphorou s concurrent ly in the same line as TPN or IVF that contains calcium. For double lumen central lines, phosphorou s may be infused in a separate lumen from TPN. 1 mMol phoshate has 1.47 mEq potassium Infuse over 4 hours potassium No Notes: Memori a phosphate-s 12-19 (Same as: l odium 04:51: Phos-NaK) phosphate 00 Each 1.5 250 mg-280 gm pkt has mg-160 mg 250mg oral powder phosphorou for s. Mix reconstitut w/2.5oz ion water and stir. Magnesium No Notes: Memori a Sulfate 12-19 WASTE: F/P l 04:51: - Sink; E - Municipal Trash Bin Magnesium No Notes: Memori a Oxide 12-19 (Same as: l 04:51: Mag-Ox Aniket 00 400) Magnesium oxide 584km=208h g elemental magnesium Dose=____m g magnesium oxide (___mg elemental magnesium) Calcium No Notes: Memoria Gluconate 12-19 WASTE: F/P l 04:51: - Sink; E Aniket 00 - [facility] Bin calcium No Notes: Memoria carbonate 12-19 (Same As: l 500 mg (200 04:51: Tums) Latoya nn mg 00 Calcium elemental Carbonate calcium) 500 mg = oral tablet 200 mg elemental calcium Dose = mg calcium carbonate ( mg elemental calcium) Dextrose No 12.5 gm, Memor ia 50% Syringe 12-19 25 mL, l (D50W) 04:51: Route: Aniket 00 IVP, Drug Form: INJ, Dosing Weight 55.1, kg, PRN, PRN Blood Glucose Results, Start date: 12/18/20 23:51:00 CDT, Duration: 30 day, Stop date: 01/17/21 23:50:00 CDT, 0 Glucagon No 1 mg, Memoria 12-19 Route: IM, l 04:51: Drug form: Aniket PDR/INJ, PRN, Dosing Weight 55.1, kg, PRN Blood Glucose Results, Start date: 12/18/20 23:51:00 CDT, Duration: 30 day, Stop date: 01/17/21 23:50:00 CDT, 0 Sodium No 1,000 mL, Memori a Chloride 12-19 Rate: 50 l 0.9% IV 04:50: ml/hr, Aniket 1,000 mL 00 Infuse over: 20 hr, Route: IV, Dosing Weight 55.1 kg, Total Volume: 1,000, Start date: 12/18/20 23:50:00 CDT, Duration: 30 day, Stop date: 01/17/21 23:49:00 CDT, 1.56, m2, 0 Docusate No Notes: Memoria - (Same as: l 04:00: Colace) [place] 00 (Do Not Crush) AMIODarone Yes 200 mg = 1 M emoria 200 mg oral 4-02 tab, PO, l tablet 03:43: BID, # 180 Latoya nn 00 tab, 0 Refill(s) Famotidine No 40 mg = 1 Me moria 40 MG Oral 4-02 tab, PO, l Tablet 03:43: Daily, # [place] 00 30 tab, 0 Refill(s) thyroid Yes TAKE 1 Memoria ([facility]) 15 MG 4-02 TABLET BY l Oral Tablet 03:43: MOUTH IN He rmann [CREAM HAULER 00 THE Thyroid] MORNING BEFORE FOOD potassium Yes 20 mEq = 1 Me moria chloride 20 4-02 tab, PO, l mEq oral 03:43: BID, # 10 Herm juni tablet, 00 tab, 0 extended Refill(s) release (KCL) clopidogrel No 75 mg = 1 M emoria 75 mg oral 4-02 tab, PO, l tablet 03:43: Daily, # Aniket 00 30 tab, 0 Refill(s) Aspirin 81 No 81 mg = 1 Me moria MG Enteric 4-02 tab, PO, l Coated 03:43: Daily, # [place] Tablet 00 90 tab, 3 Refill(s) gabapentin Yes 300 mg = 1 M emoria 300 MG Oral 4-02 cap, PO, l Capsule 03:42: TID, # 90 Latoya nn 00 cap, 1 Refill(s) Paroxetine No 20 mg = 1 Me moria Hydrochlori 4-02 tab, PO, l de 20 MG 03:42: Daily, # Latoya nn Oral Tablet 00 30 tab, 1 Refill(s) memantine Yes 10 mg = 1 Mem oria 10 mg oral 4-02 tab, PO, l tablet 03:42: BID, # 60 Boyd n 00 tab, 0 Refill(s) atorvastati Yes 80 mg = 1 M emoria n 80 mg 4-02 tab, PO, l oral tablet 03:42: Bedtime, # Aniket 00 30 tab, 0 Refill(s) Metoprolol No 25 mg = 1 Me moria Tartrate 25 4-02 tab, PO, l mg oral 03:42: BID, # 60 Latoya nn tablet 00 tab, 0 Refill(s) Keppra No Notes: Memoria 4-02 Same as l 03:31: Keppra [place] 00 Mix with 100 mL NS, LR or D5W MEDICATION WASTE Product Size: 500 mg Product Wasted: ___ mg Nicardipine No Notes: Mauro javon 12-19 Same as: l 03:18: Cardene Concentrat ion: (0.2 mg /1 ml ) Saline No 10 ml, Memoria Flush 0.9% 12-19 Route: l 03:18: IVP, Drug Form: INJ, Dosing Weight 55.1, kg, PRN, PRN Line Flush, Start date: 12/18/20 22:18:00 CDT, Duration: 30 day, Stop date: 01/17/21 22:17:00 CDT Hydralazine No Notes: Mauro javon 12-19 (Same as: l 03:11: Apresoline ) Push over 5 minutes Labetalol No Notes: Memori a 12-19 (Same as: l 03:11: Normodyne, Trandate) Push over 2 minutes Give bolus over 2-3 minutes. Sodium No 25 mL, Memoria Chloride 12-19 Route: IV, l 0.9% IV 03:07: Start date: 12/18/20 22:07:00 CDT, Duration: 30 day, Stop date: 01/17/21 22:06:00 CDT, PRN Line Flush, 0 BD Normal No Notes: Memori a Saline 12-19 (Same as: l Flush 03:06: BD Posiflush) Levetiracet No Notes: Mauro javon am 12-19 (Same l 03:05: as:Keppra) Sodium No 1,000 mL, Memori a Chloride 12-19 Rate: 50 l 0.9% IV 03:01: ml/hr, Aniket 1,000 mL 00 Infuse over: 20 hr, Route: IV, Dosing Weight 54.091 kg, Total Volume: 1,000, Start date: 12/18/20 22:01:00 CDT, Duration: 30 day, Stop date: 01/17/21 22:00:00 CDT, 1.57, m2, 0 Acetaminoph No Notes: Do M yuditha en 12-19 not exceed l 03:01: 4 gm/day. [place] 00 (Same as: Tylenol) Bisacodyl No Notes: Memori a - (Same As: l 03:01: Dulcolax, Bisco-Lax) Ondansetron No Notes: Mauro javon 12-19 (Same as: l 03:01: Zofran) MEDICATION WASTE Product Size: 4 mg Product Wasted: ___ mg Saline No Notes: Memoria Flush 0.9% 12-19 (Same as: l 03:01: BD Posiflush) Saline Yes 10 ml, Memoria Flush 0.9% 12-12 Route: l 02:00: IVP, Drug Form: INJ, Dosing Weight 54.091, kg, Q12H, Start date: 12/11/20 21:00:00 CDT, Duration: 30 day, Stop date: 01/10/21 9:00:00 CDT Benzocaine 0 No 2 spray, Mem oria 140 MG/ML / 3-25 Route: l butamben 20 17:00: MUCOUS Herm juni MG/ML / 00 MEM, Tetracaine ONCALL, 20 MG/ML Start Mucosal date: [place] 12/11/20 [Cetacaine] 12:00:00 CDT, Duration: 1 doses or times Lidocaine 2020-0 No 15 mL, Memori a Viscous 2% 12-11 Route: l mucous 17:00: S&SPIT, Aniket membrane 00 ONCALL, solution Start date: 12/11/20 12:00:00 CDT, Duration: 30 day, Stop date: 01/10/21 11:59:00 CDT Midazolam 2020-0 No 5 mg, Memoria 3-25 Route: l 17:00: IVP, Aniket ONCALL, Dosing Weight 54.091, kg, Start date: 12/11/20 12:00:00 CDT, Duration: 1 doses or times Fentanyl 2020-0 No 100 Memoria 3-25 microgram, l 17:00: Route: IV, [place] ONCALL, Dosing Weight 54.091, kg, Start date: 12/11/20 12:00:00 CDT, Duration: 30 day, Stop date: 01/10/21 11:59:00 CDT Sodium 2020-0 Yes 500 mL, Memoria Chloride 3-25 Rate: 30 l 0.9% IV 500 16:05: ml/hr, Herm juni mL 00 Infuse over: 16.7 hr, Route: IV, Dosing Weight 54.091 kg, Total Volume: 500, Start date: 12/11/20 11:05:00 CDT, Duration: 30 day, Stop date: 01/10/21 11:04:00 CDT, 1.57, m2 Saline 2020-0 Yes 10 ml, Memoria Flush 0.9% 3-25 Route: l 16:05: IVP, Drug Form: INJ, Dosing Weight 54.091, kg, PRN, PRN Line Flush, Start date: 12/11/20 11:05:00 CDT, Duration: 30 day, Stop date: 01/10/21 11:04:00 CDT trospium 2020-0 Yes 0 Memoria chloride 20 3-25 Refill(s) l mg oral 15:07: [place] tablet 00 memantine 0 Yes 0 Memoria 10 mg oral 3-25 Refill(s) l tablet 15:06: [place] 00 thyroid 0 Yes 0 Memoria desiccated 3-25 Refill(s) l 15 mg oral 15:06: Aniket tablet 00 spironolact 0 Yes 0 Memori a one 25 mg 3-25 Refill(s) l oral tablet 15:05: Boyd n 00 gabapentin 2019-09 Yes 300 mg = 1 M emoria 300 MG Oral 0-06 cap, PO, l Capsule 18:33: Q8H, 0 Refill(s) AMIODarone 2019-09 Yes 200 mg = 1 M emoria 200 mg oral 0-06 tab, PO, l tablet 18:33: Daily, 0 Refill(s) clopidogrel 2019-09 Yes 75 mg = 1 M emoria 75 mg oral 0-06 tab, PO, l tablet 18:33: Daily, 0 Refill(s) Simethicone 2019-09 No Notes: Mauro javon 0-02 (Same as: l 19:15: Mylicon) [place] 00 Amiodarone No Notes: Memor ia 06-17 (Same as: l 22:00: Cordarone) remove No Notes: Memoria patch 06-16 Remove l 02:00: patch 12 [place] 00 hours after applicatio n each day. Lidocaine No Notes: Memori a 0.05 MG/MG 06-15 Apply only l Transdermal 17:30: once for He rmann Patch 00 up to 12 hours in a 24-hour period (12 hours on and 12 hours off). (Same as: Lidoderm) "Remove old patch before applicatio n of new patch" metoprolol No 12.5 mg, Mem oria tartrate 06-13 0.5 tab, l 22:00: Route: PO, Drug form: TAB, BID, Dosing Weight 64.688, kg, Start date: 06/13/20 17:00:00 CDT, Duration: 30 day, Stop date: 07/13/20 9:00:00 CDT, 0 Ibuprofen No Notes: Memori a 06-13 (Same as: l 21:26: Motrin) "Do Not Crush" Take with food. clopidogrel No Notes: Mauro javon 06-13 (Same As: l 18:37: Plavix) Miralax No Notes: Memoria 06-12 Dissolve l 02:11: in 8 oz of water or juice. (Same as: Miralax) Dulcolax No Notes: Memoria Laxative 06-12 (Same As: l 02:11: Dulcolax, Bisco-Lax) Amiodarone No Notes: Memor ia 06-10 (Same as: l 22:00: Cordarone) metoprolol No Notes: Memor ia tartrate 06-10 (Same as: l 21:00: Lopressor) Melatonin 3 No Notes: Mauro javon MG Extended 06-10 (Same as: l Release 17:36: Melatonin) juni Tablet Macrobid No Notes: Not Mem oria 06-10 recommende l 15:57: d for [place] patients with CrCl<30 ml/min (Same as:Macrobi d) With food. atorvastati No Notes: Mauro javon n 06-10 (Same As: l 02:00: Lipitor) metoprolol No Notes: Memor ia tartrate 06-09 (Same as: l 23:00: Lopressor) Potassium No Notes: Memori a Chloride 06-09 (Same as: l 1.33 MEQ/ML 18:55: Potassium H erm Oral Chloride) Solution Aspirin 81 No Notes: Do Me moria MG Enteric 06-09 not crush l Coated 14:00: or chew. [place] Tablet (Same As: Ecotrin) Cordarone + No 2 mg/ml. M emoria Dextrose 5% 06-09 "Recommend l in Water IV 13:39: ation: Use Aniket 100 mL 00 an in-line filter during administra tion for continuous infusions to reduce the incidence of phlebitis" (Same as Codarone) MEDICATION WASTE Product Size: 150 mg Product Wasted: ___ mg AMIODarone No 2 mg/ml. Me moria 900 mg in 06-09 Use Glass l D5W 500 ml 13:11: Bottle or He rmann IV 900 mg + 00 Non PVC Dextrose 5% Bag "Use in Water IV 0.22 482 mL micron in-line filter" MEDICATION WASTE Product Size: 900 mg Product Wasted: ___ mg Amiodarone No 150 mg, Mauro javon 06-09 Route: l 13:07: IVPB, [place] 00 ONCE, Dosing Weight 64.688, kg, Start date: 06/09/20 8:07:00 CDT, Stop date: 06/09/20 8:07:00 CDT gabapentin No Notes: Memor ia 300 MG Oral 06-09 (Same as: l Capsule 13:00: Neurontin) Tylenol No Notes: Do Memor ia 06-09 not exceed l 12:09: 4 gm/day. (Same as: Tylenol) Diltiazem No 20 mg, Memori a 9-21 Route: IV, l 11:59: ONCE, Dosing Weight 64.688, kg, Priority: NOW, Start date: 06/09/20 6:59:00 CDT, Stop date: 06/09/20 6:59:00 CDT NS (Bolus) No 500 mL, Mauro javon IV 06-09 500 ml/hr, l 11:06: Infuse Over: 1 hr, Route: IV, 500, Drug form: INJ, ONCE, Priority: STAT, Dosing Weight 64.688 kg, Start date: 06/09/20 6:06:00 CDT, Stop date: 06/09/20 6:06:00 CDT, 0 metoprolol No Notes: Memor ia tartrate 06-09 (Same as: l 09:45: Lopressor) Metoprolol No Notes: Memor ia 06-09 (Same as: l 09:43: Lopressor) Push over 2 minutes Metoprolol No Notes: Memor ia 06-09 (Same as: l 09:34: Lopressor) Push over 2 minutes Macrobid 0 No Notes: Not Mem oria 06-09 recommende l 05:00: d for [place] 00 patients with CrCl<30 ml/min (Same as:Macrobi d) With food. heparin No Notes: Memoria 06-09 porcine l 05:00: heparin atorvastati 0 No Notes: Mauro javon n 06-09 Same as l 02:00: Lipitor Docusate 0 No Notes: Memoria 06-09 (Same as: l 02:00: Colace) (Do Not Crush) Saline No Notes: Memoria Flush 0.9% 06-09 (Same as: l 02:00: BD Posiflush) metoprolol No Notes: Memor ia tartrate 06-09 (Same as: l 02:00: Lopressor) 12.5 mg=1/2 X 25 mg TAB Nitrofurant 0 No 100 mg, Mem oria oin 06-09 Route: PO, l 02:00: Drug form: CAP, [id number], Dosing Weight 64.688, kg, Start date: 06/08/20 21:00:00 CDT, Duration: 7 day, Stop date: 06/15/20 15:00:00 CDT Paroxetine 2020-0 No Notes: Memor ia 9-21 (Same as: l 02:00: Paxil) Hazardous Drug Group 3:Reproduc tive risk Hazardous Drug -- Refer to safe handling procedure PPE Matrix Tylenol 2019-0 No Notes: Do Memor ia 9-21 not exceed l 01:54: 4 gm/day. (Same as: Tylenol) Aspirin 81 2020-0 No Notes: Memor ia MG Chewable - Take with l Tablet 00:08: food. Sodium 2019-0 No 1,000 ml, Memori a Chloride -20 Rate: 100 l 0.9% IV 22:42: ml/hr, Aniket 1,000 mL + 00 Infuse M.V.I.-12 over: 10.1 10 mL Daily hr, Route: + folic IV, Dosing acid IV 1 Weight mg Daily + 64.688 kg, thiamine IV Total 1 Volume: 1,011.2, Start date: 06/08/20 17:42:00 CDT, Duration: 2 day, Stop date: 06/10/20 17:41:00 CDT, 1.69, m2, 0 Labetalol 2020-0 No 105 mmHg, Me moria 9-20 Start l 22:28: date: 06/08/20 17:28:00 CDT, Duration: 30 day, Stop date: 07/08/20 17:27:00 CDT, 0 Saline 2020-0 No Notes: Memoria Flush 0.9% 9-20 (Same as: l 22:28: BD Posiflush) rivaroxaban 2020-0 Yes 20 mg = 1 M emoria 20 mg oral 7-24 tab, PO, l tablet 20:48: QPM, For Atrial Fibrillati on, 0 Refill(s) metoprolol 2020-0 Yes 12.5 mg = Me moria tartrate 25 7-24 0.5 tab, l mg oral 20:48: PO, Q12H, Latoya nn tablet 00 0 Refill(s) DME 2020-0 Yes See Memoria Prescriptio 7-24 Instructio l n 19:01: ns, MISC, [place] 00 ONCE, cardiac rehab phase II, # 1 ea, 0 Refill(s) atorvastati Yes 80 mg = 1 M emoria n 80 mg 7-24 tab, PO, l oral tablet 18:49: Bedtime, # [place] 00 30 tab, 0 Refill(s) atorvastati No 80 mg = 4 M emoria n 20 mg 7-24 tab, PO, l oral tablet 18:47: Bedtime, # Aniket 00 30 tab, 0 Refill(s) metoprolol No Notes: Memor ia tartrate 04-10 (Same as: l 02:00: Lopressor) [place] 00 12.5 mg=1/2 X 25 mg TAB Aspirin 81 No Notes: Do Me moria MG Enteric 04-09 not crush l Coated 14:00: or chew. Aniket Tablet 00 (Same As: Ecotrin) potassium No Notes: Memori a phosphate-s - (Same as: l odium 10:12: Phos-NaK) phosphate 00 Each 1.5 250 mg-280 gm pkt has mg-160 mg 250mg oral powder phosphorou for s. Mix reconstitut w/2.5oz ion water and stir. potassium No Notes: Memori a phosphate - (Same as: l 10:12: K Aniket 00 Phosphate. ) Do not infuse phosphorou s concurrent ly in the same line as TPN or IVF that contains calcium. For double lumen central lines, phosphorou s may be infused in a separate lumen from TPN. 1 mMol phoshate has 1.47 mEq potassium Infuse over 4 hours sodium No Notes: [facility]oria phosphate -22 Infuse l 10:12: over 4 [place] 00 hour. Do not infuse phosphorou s concurrent ly in the same line as TPN or IVF that contains calcium. For double lumen central lines, phosphorou s may be infused in a separate lumen from TPN. Magnesium No Notes: Memori a Sulfate 04-09 WASTE: F/P l 10:12: - Sink; E - Municipal Trash Bin Magnesium No Notes: Memori a Oxide 04-09 (Same as: l 10:12: Mag-Ox 400) Magnesium oxide 576ld=666v g elemental magnesium Dose=____m g magnesium oxide (___mg elemental magnesium) Calcium No Notes: [facility] Gluconate 04-09 WASTE: F/P l 10:12: - Sink; E - Municipal Trash Bin Potassium No Notes: Memori a Chloride 04-09 (Same as: l 10:12: K-Dur 20) "Do Not Crush" Give with food and full glass of water For patients unable to swallow tablet, dissolve in one half glass of water. Allow about 2 minutes for the tablets to disintegra te. Stir before giving to prepare slurry and administer . Please exclude Patient s with feeding tube less than 14 Finnish (Dobhoff, J-tube etc) and pediatric and patients. benzocaine- No Notes: Mauro javon menthol 04-09 Cepacol l topical 03:22: lozenges Boyd n 00 Dispense 1 box = 16 lozenges (Same As: Cepacol Lozenges) phenol No Notes: Memoria 04-09 Chlorasept l 03:06: ic Stewart (Same as: Chlorasept ic, Sore Throat Stewart) WASTE: F/P - Black; E - Municipal Trash Bin Menthol 5 No 1 lozenge, Me moria MG Lozenge 04-09 Route: PO, l [[place]] 03:06: Dosing Weight 74.091, kg, Daily, PRN Sore Throat, Start date: 04/08/20 22:06:00 CDT, Duration: 2 day, Stop date: 04/10/20 22:05:00 CDT rivaroxaban No Notes: Mauro javon 04-09 (Same as: l 01:44: Xarelto) Administer with food Xarelto No Notes: [facility]oria 04-08 (Same as: l 22:00: Xarelto) Administer with food Protonix No 20 mg, Memoria 04-08 Route: PO, l 21:30: Drug form: ECTAB, Before Dinner, Dosing Weight 74.091, kg, Start date: 04/08/20 16:30:00 CDT, Duration: 30 day, Stop date: 05/07/20 16:30:00 CDT neostigmine 2019-0 No Route: IV, Memoria (ANES) 04-08 Drug form: l 15:16: INJ, ONCE, Stop date: 04/08/20 10:16:00 CDT glycopyrrol 2019-0 No Route: IV, Memoria ate (ANES) 04-08 Drug form: l 15:16: INJ, ONCE, Stop date: 04/08/20 10:16:00 CDT sugammadex 2019-0 No Route: IV, M emoria (ANES) 04-08 Drug form: l 15:16: SOLN, ONCE, Stop date: 04/08/20 10:16:00 CDT protamine 2019-0 No Route: IV, Me moria (ANES) 04-08 Drug form: l 15:15: INJ, ONCE, Stop date: 04/08/20 10:15:00 CDT heparin 2020-0 No Route: IV, Mauro javon (ANES) 04-08 Drug form: l 14:24: INJ, ONCE, Stop date: 04/08/20 9:24:00 CDT Hydralazine 2019-0 No Notes: Mauro javon 7-21 (Same as: l 14:20: Apresoline ) Push over 5 minutes Labetalol 2019-0 No 10 mg, 2 Mauro javon 7-21 mL, Route: l 14:20: IVP, Drug form: INJ, Q5Min, Dosing Weight 74.091, kg, PRN Elevated BP, Start date: 04/08/20 9:20:00 CDT, Duration: 5 doses or times, Stop date: Limited # of times, 0 Fentanyl 2019-0 No Notes: Memoria - (Same as: l 14:20: Sublimaze) Preservat rosa free. Flumazenil 2019-0 No Notes: Memor ia - (Same as: l 14:20: Romazicon) Naloxone 2019-0 No Notes: Memoria 04-08 Same as l 14:20: Narcan Ondansetron 2019-0 No Notes: Mauro javon 04-08 (Same as: l 14:20: Zofran) MEDICATION WASTE Product Size: 4 mg Product Wasted: ___ mg norepinephr 2019-0 No Route: IV, Memoria ine (ANES) 04-08 Drug form: l 13:53: INJ, ONCE, Stop date: 04/08/20 8:53:00 CDT ceFAZolin 2019-0 No Route: IV, Me moria (ANES) 04-08 Drug form: l 13:53: INJ, ONCE, Stop date: 04/08/20 8:53:00 CDT lidocaine 2019-0 No Route: IV, Me moria (ANES) 04-08 Drug form: l 13:23: INJ, ONCE, Stop date: 04/08/20 8:23:00 CDT rocuronium 2019-0 No Route: IV, M emoria (ANES) 04-08 Drug form: l 13:23: INJ, ONCE, Stop date: 04/08/20 8:23:00 CDT fentaNYL 2019-0 No Route: IV, Mem oria (ANES) 04-08 Drug form: l 13:23: INJ, ONCE, Stop date: 04/08/20 8:23:00 CDT propofol 2019-0 No Route: IV, Mem oria (ANES) 04-08 Drug form: l 13:23: INJ, ONCE, Stop date: 04/08/20 8:23:00 CDT Isolyte S 2019-0 No Route: IV, Me moria PH 7.4 04-08 Total l (ANES) 1000 12:30: Volume: Her delgado mL 00 1,000, Start date: 04/08/20 7:30:00 CDT, Stop date: 04/08/20 8:30:00 CDT Vancomycin 2019-0 No 2001 mg: Me moria - infuse l 18:00: over 2.5 hours For adult patients only: Round to nearest 250 mg per Medical Staff approval MEDICATION WASTE Product Size: 1000 mg Product Wasted: _0__ mg atorvastati No Notes: Mauro javon n 7-20 (Same As: l 02:00: Lipitor) gabapentin No Notes: Memor ia 7-20 (Same as: l 02:00: Neurontin) Paroxetine No 20 mg, 2 Mem oria 7-20 tab, l 02:00: Route: PO, [place] 00 Drug form: TAB, Bedtime, Dosing Weight 74.091, kg, Start date: 04/06/20 21:00:00 CDT, Duration: 30 day, Stop date: 05/05/20 21:00:00 CDT, 0 heparin No Notes: Memoria additive 7-19 Total l 25,000 unit 23:44: Concentrat Aniket [14 ion = 50 unit/kg/hr] unit/ ml + Premix Total Diluent volume = Sodium 500 ml Chloride Send Med 0.45% 500 Request 2 mL hours prior to next bag Aspirin 325 No Notes: Mauro javon MG Enteric 7-19 Take with l Coated 14:00: food. [place] Tablet 00 Saline No Notes: Memoria Flush 0.9% -19 (Same as: l 14:00: BD [place] 00 Posiflush) Famotidine No Notes: Memor ia 7-19 (Same as: l 14:00: Pepcid) gabapentin No Notes: Memor ia 7-19 (Same as: l 14:00: Neurontin) [place] 00 Atrial No Notes: Memoria Fibrillatio 7-19 (Same As: l n Sotalol 14:00: Betapace) [facility] Hydrochlori 00 de 80 MG Oral Tablet sennosides, No Notes: Mauro javon [facility] 8.6 MG 7-19 (Same as: l Oral Tablet 14:00: Senokot) rmann Docusate No Notes: Memoria Sodium 100 7-19 (Same as: l MG Oral 14:00: Colace) Aniket Capsule 00 (Do Not Crush) atorvastati No 10 mg = 1 M emoria n 10 mg 7-19 tab, PO, l oral tablet 12:26: Bedtime Her delgado gabapentin Yes 600 mg, Mauro javon 7-19 PO, QAM l 12:26: Famotidine Yes 40 mg, PO, M emoria 7-19 Daily l 12:26: Paroxetine Yes 20 mg = 1 Me moria Hydrochlori 7-19 tab, PO, l de 20 MG 12:26: Bedtime Boyd n Oral Tablet 00 sotalol 80 No 80 mg = 1 Me moria mg oral 7-19 tab, PO, l tablet 12:26: BID spironolact No 25 mg = 1 M emoria one 25 mg 7-19 tab, PO, l oral tablet 12:26: Every Latoya nn 00 Other Day Aspirin 81 Yes 81 mg = 1 Me moria MG Chewable 7-19 tab, PO, l Tablet 12:26: Daily Vitamin D3 Yes 1,000 Memori a 1000 intl 04-06 IntlUnit = l units oral 12:26: 1 tab, PO, H ermann tablet 00 Daily Vitamin B12 Yes 4,000 mcg, Memoria 1000 mcg 7-19 PO, Daily l oral tablet 12:26: Boyd n 00 Saline No Notes: Memoria Flush 0.9% 04-06 (Same as: l 11:40: BD Posiflush) aspirin 2017-09 Yes 81mg QD Take 81 [...] 18 daily. OMEGA-3 2017-09 Yes Take by [place] FABIOLA 2-19 mouth. Methodi ACIDS/FISH 12:12: st OIL [...] - MOUTH Memoria EVERYDAY l AT BEDTIME [facility] Spironolact Spironolact Yes Zach TAKE [address] [facility] [place] [facility] DAY l [facility] Xarelto Xarelto Yes [facility] EVERY DAY l [facility] Sotalol HCl Sotalol HCl Yes Zach TAKE [address] [facility] [place] TABLET [facility] - [facility]TH [facility]oria TWICE A l DAY [facility] Atorvastati Atorvastati Yes Zach TAKE [address] [facility] n Calcium n Calcium [place] TABLET BY [facility] - MOUTH [facility]oria EVERY DAY l [facility] ent Clinics Vital Signs Vital Name Observation Time Observation Value Comments Source Temperature Oral (F) 2020-12-24 01:00:00 98.3 F [facility] [place] Heart Rate 2020-12-24 01:00:00 [facility] Aniket Respitory Rate 2020-12-24 01:00:00 Memori al Aniket Systolic (mm Hg) 2020-12-24 01:00:00 Mauro rial [place] Diastolic (mm Hg) 2020-12-24 01:00:00 Mem orial Aniket Temperature Oral (F) 2020-12-23 21:00:00 98.3 F [facility] [place] Heart Rate 2020-12-23 21:00:00 [facility] [place] Respitory Rate 2020-12-23 21:00:00 [facility] al [place] Systolic (mm Hg) 2020-12-23 21:00:00 Mauro rial Aniket Diastolic (mm Hg) 2020-12-23 21:00:00 Mem orial Aniket Temperature Oral (F) 2020-12-23 17:00:00 97.9 F [facility] Aniket Heart Rate 2020-12-23 17:00:00 [facility] Aniket Respitory Rate 2020-12-23 17:00:00 Memori al Aniket Systolic (mm Hg) 2020-12-23 17:00:00 Mauro rial [place] Diastolic (mm Hg) 2020-12-23 17:00:00 Mem orial [place] Temperature Oral (F) 2020-12-22 05:00:00 97.9 F [facility] Aniket Heart Rate 2020-12-22 05:00:00 [facility] [place] Respitory Rate 2020-12-22 05:00:00 [facility] al [place] Systolic (mm Hg) 2020-12-22 05:00:00 Mauro rial [place] Diastolic (mm Hg) 2020-12-22 05:00:00 Mem orial Aniket Temperature Oral (F) 2020-12-22 01:00:00 97.4 F [facility] [place] Heart Rate 2020-12-22 01:00:00 [facility] [place] Respitory Rate 2020-12-22 01:00:00 [facility] al [place] Systolic (mm Hg) 2020-12-22 01:00:00 Mauro rial [place] Diastolic (mm Hg) 2020-12-22 01:00:00 Mem orial Aniket Temperature Oral (F) 2020-12-21 21:00:00 97.5 F [facility] [place] Heart Rate 2020-12-21 21:00:00 [facility] [place] Respitory Rate 2020-12-21 21:00:00 Memori al Aniket Systolic (mm Hg) 2020-12-21 21:00:00 Mauro rial [place] Diastolic (mm Hg) 2020-12-21 21:00:00 Mem orial [place] Height 2020-12-19 03:08:00 154.94 cm [facility] [place] Weight 2020-12-19 03:08:00 [facility] Aniket BMI Calculated 2020-12-19 03:08:00 [facility] al [place] Respitory Rate 2020-12-11 17:00:00 [facility] al [place] Systolic (mm Hg) 2020-12-11 17:00:00 Mauro rial Aniket Diastolic (mm Hg) 2020-12-11 17:00:00 Mem orial [place] Respitory Rate 2020-12-11 16:55:00 [facility] al [place] Systolic (mm Hg) 2020-12-11 16:55:00 Mauro rial Aniket Diastolic (mm Hg) 2020-12-11 16:55:00 Mem orial [place] Respitory Rate 2020-12-11 16:50:00 [facility]ori al [place] Systolic (mm Hg) 2020-12-11 16:50:00 Mauro rial [place] Diastolic (mm Hg) 2020-12-11 16:50:00 Mem orial [place] Height 2020-12-11 12:31:00 162.56 cm [facility] [place] Weight 2020-12-11 12:31:00 [facility] Aniket BMI Calculated 2020-12-11 12:31:00 Memori al [place] Temperature Oral (F) 2020-06-24 14:12:00 98.5 F [facility] Anik[place] Heart Rate 2020-06-24 14:12:00 [facility] [place] Respitory Rate 2020-06-24 14:12:00 Memori al [place] Systolic (mm Hg) 2020-06-24 14:12:00 Mauro rial Aniket Diastolic (mm Hg) 2020-06-24 14:12:00 Mem orial [place]iket Heart Rate 2020-06-24 08:34:00 [facility] An[place] Respitory Rate 2020-06-24 08:34:00 Memori al Aniket Systolic (mm Hg) 2020-06-24 08:34:00 Mauro rial Aniket Diastolic (mm Hg) 2020-06-24 08:34:00 Mem orial Aniket Temperature Oral (F) 2020-06-24 04:57:00 98.3 F [facility] Anik[place] Heart Rate 2020-06-24 04:57:00 [facility] [place] Respitory Rate 2020-06-24 04:57:00 Memori al [place] Systolic (mm Hg) 2020-06-24 04:57:00 Mauro rial [place] Diastolic (mm Hg) 2020-06-24 04:57:00 Mem orial Aniket Temperature Oral (F) 2020-06-24 01:08:00 97.6 F [facility] [place] Systolic (mm Hg) 2020-06-16 07:00:00 Mauro rial [place] Diastolic (mm Hg) 2020-06-16 07:00:00 Mem orial Aniket Systolic (mm Hg) 2020-06-16 05:00:00 Mauro rial [place] Diastolic (mm Hg) 2020-06-16 05:00:00 Mem orial [place] Temperature Oral (F) 2020-06-16 04:05:00 98.2 F [facility] Aniket Systolic (mm Hg) 2020-06-16 03:00:00 Mauro rial [place] Diastolic (mm Hg) 2020-06-16 03:00:00 Mem orial Aniket Temperature Oral (F) 2020-06-16 01:23:00 98.5 F [facility] [place] Temperature Oral (F) 2020-06-15 21:26:00 98.1 F [facility] [place] Respitory Rate 2020-06-15 21:00:00 Memori al [place] Respitory Rate 2020-06-15 17:00:00 Memori al Aniket Respitory Rate 2020-06-15 13:00:00 Memori al Aniket Height 2020-06-13 21:59:00 154.94 cm [facility] [place] Weight 2020-06-13 21:59:00 [facility] [place] BMI Calculated 2020-06-13 21:59:00 Memori al Aniket Heart Rate 2020-06-09 07:48:00 [facility] Anik[place] Heart Rate 2020-06-09 07:35:00 [facility] [place] Height 2020-06-08 21:06:00 154.94 cm [facility] [place] Weight 2020-06-08 21:06:00 [facility] [place] BMI Calculated 2020-06-08 21:06:00 Memori al Aniket Respitory Rate 2020-06-05 17:30:00 Memori al Aniket Systolic (mm Hg) 2020-06-05 17:30:00 Mauro rial [place] Diastolic (mm Hg) 2020-06-05 17:30:00 Mem orial Aniket Respitory Rate 2020-06-05 17:25:00 Memori al [place] Systolic (mm Hg) 2020-06-05 17:25:00 Mauro rial Aniket Diastolic (mm Hg) 2020-06-05 17:25:00 Mem orial Aniket Respitory Rate 2020-06-05 17:20:00 Memori al Aniket Systolic (mm Hg) 2020-06-05 17:20:00 Mauro rial Aniket Diastolic (mm Hg) 2020-06-05 17:20:00 Mem orial Aniket Height 2020-06-05 13:41:00 154.94 cm [facility] [place] Weight 2020-06-05 13:41:00 [facility] Aniket BMI Calculated 2020-06-05 13:41:00 Memori al Aniket Systolic (mm Hg) 2020-04-11 20:00:00 Mauro rial Aniket Diastolic (mm Hg) 2020-04-11 20:00:00 Mem orial [place] Systolic (mm Hg) 2020-04-11 19:00:00 Mauro rial Aniket Diastolic (mm Hg) 2020-04-11 19:00:00 Mem orial Aniket Systolic (mm Hg) 2020-04-11 18:00:00 Mauro rial Aniket Diastolic (mm Hg) 2020-04-11 18:00:00 Mem orial Aniket Respitory Rate 2020-04-11 17:00:00 Memori al [place] Respitory Rate 2020-04-11 15:00:00 Memori al Aniket Respitory Rate 2020-04-11 14:00:00 Memori al Aniket Temperature Oral (F) 2020-04-11 09:00:00 96.0 F [facility] [place] Temperature Oral (F) 2020-04-11 04:44:00 98.2 F [facility] [place] Temperature Oral (F) 2020-04-11 01:00:00 98.5 F [facility] [place] Heart Rate 2020-04-08 09:00:00 [facility] [place] Heart Rate 2020-04-08 05:16:00 [facility] Anik[place] Heart Rate 2020-04-08 01:29:00 [facility] [place] Respitory Rate 2020-04-07 09:03:00 Memori al [place] Systolic (mm Hg) 2020-04-07 09:03:00 Mauro rial [place] Diastolic (mm Hg) 2020-04-07 09:03:00 Mem orial [place] Respitory Rate 2020-04-07 07:14:00 Memori al Aniket Systolic (mm Hg) 2020-04-07 07:14:00 Mauro rial [place] Diastolic (mm Hg) 2020-04-07 07:14:00 Mem orial [place] Respitory Rate 2020-04-07 06:14:00 Memori al Aniket Systolic (mm Hg) 2020-04-07 06:14:00 Mauro rial [place] Diastolic (mm Hg) 2020-04-07 06:14:00 Mem orial Aniket Temperature Oral (F) 2020-04-07 05:02:00 98.6 F [facility] [place] Temperature Oral (F) 2020-04-07 00:43:00 98.6 F [facility] [place] Temperature Oral (F) 2020-04-06 22:48:00 97.8 F [facility] [place] Height 2020-04-06 07:57:00 154.94 cm [facility] [place] BMI Calculated 2020-04-06 07:57:00 Enedina Hardin Weight 2020-04-06 07:57:00 [facility] [place] Heart Rate 2020-04-06 07:57:00 [facility] [place] Procedures Procedure Date / Time Performed Performing Clinician Sour e SARS-COV2/RT-PCR ([facility] 2020-04-12 00:47:00 [facility] [place] procedure<sup>1</sup> Knee replacement [facility] n Plan of Care Planned Activity Planned Date Details Comments Source Future Scheduled 2021-04-19 IN[facility]ZA VACCINE [facility] 00:00:00 [code = INFLUENZA VACCINE] Future Scheduled 2020-05-20 INFLUENZA VACCINE (#1[facility] 00:[facility]00 [code = INFLUENZA Medical Ce nter VACCINE (#1)] Future Scheduled 2019-09-[address] [facility] 00:00:00 WELLNESS (YEAR 2 or Medical Center FIRST YEAR if no IPPE) [code = MEDICARE ANNUAL WELLNESS (YEAR 2 or FIRST YEAR if no IPPE)] Future Scheduled 2010 65+ PNEUMOCOCCAL [facility] 00:00:00 VACCINE (1 of 1 - PPSV23) [code = 65+ PNEUMOCOCCAL VACCINE (1 of 1 - PPSV23)] Future Scheduled 2010 PNEUMOCOCCAL 65+ YRS [facility] - Test 00:00:00 (1 of 1 - Medical Center [id number] PCV13) [code = PNEUMOCOCCAL 65+ YRS (1 of 1 - [id number] PCV13)] Future Scheduled 1995 COLONOSCOPY SCREENING [facility] 00:00:00 [code = COLONOSCOPY SCREENING] Future Scheduled 1995 SHINGLES VACCINES (#1) [facility] 00:00:00 [code = SHINGLES VACCINES (#1)] Future Scheduled 1963 Hepatitis C screening [facility] 00:00:00 (procedure) [code = 139330878] Future Scheduled 1957 COVID-19 VACCINE (1) [facility] 00:00:00 [code = COVID-19 VACCINE (1)] Future Scheduled [address] [facility] 00:[facility]:00 malignant neoplasm of Medica l Center colon (procedure) [code = 988300270] Encounters Start End Encounter Admission Attending Care Care Encounter Source Date/Time Date/Time Type Type Clinicians Facility Department ID 2020-12-18 Inpatient U [facility] MED [id number] Mem oria 21:58:00 l Aniket Ngoria l [facility] 2020-12-18 2020-12-23 Outpatient Marya Rodriguez [facility] [id number] 21:58:00 22:25:00 91 2020-12-18 2020-12-18 Outpatient Thu [facility] [id number] 21:58:00 21:58:00 Ozer 91 2020-12-11 2020-12-11 Outpatient Ameena, [facility] [id number] 07:33:00 23:59:00 Manuel 2020-12-11 2020-12-11 Outpatient Ameena, [facility] [id number] 07:33:00 23:59:00 Manuel 2020-12-11 2020-12-11 Outpatient [facility] [id number] [facility] 07:33:00 07:33:00 2020-06-08 2020-06-24 Outpatient Jagolino-Co [facility] [id number] 15:03:00 15:23:00 Irais roa 64 Alex 2020-06-08 2020-06-08 [facility] [id number] 15:03:00 15:03:00 Faustina Spence 2020-06-05 2020-06-05 Outpatient Regina [facility] [id number] 08:41:00 23:59:00 Lacap, 00 Dalia Abbott 2020-06-05 2020-06-05 Outpatient Regina [facility] [id number] 08:41:00 23:59:00 Lacap, 00 Dalia Abbott 2020-06-05 2020-06-05 Outpatient [facility] [id number] [facility] 08:41:00 08:41:00 2020-04-06 2020-04-11 Outpatient Sasha, [facility] [id number] 02:57:00 17:59:00 Crispin 01 2020-04-06 2020-04-06 Outpatient Sharrief, [facility] [id number] 02:57:00 02:57:00 Rayshawn Alves 2018-10-19 2018-10-19 [facility] [id number] [facility] [address] 08:[facility]00 08[facility] 2018-08-28 2018-08-28 [facility] [id number] 09:00:00 09:00:00 [facility] 2018-05-02 2018-05-02 [facility] [id number] 14:00[facility]00 14:00[facility]00 [facility] Clin[facility] 2018-04-06 2018-04-06 [facility] [id number] 09:00[facility]00 09:00[facility]00 [facility] Results Test Description Test Time Test Comments Results Result Comments Source CHEM PANEL 2020-12-23 84 [facility] Latoya nn 13:11:00 CHEM PANEL 2020-12-23 0.65 [facility] [place] nn 13:11:00 CHEM PANEL 2020-12-23 140 [facility] [place] nn 13:11:00 CHEM PANEL 2020-12-23 3.3 [facility] [place] nn 13:11:00 CHEM PANEL 2020-12-23 106 [facility] [place] nn 13:11:00 CHEM PANEL 2020-12-23 30 [facility] [place] nn 13:11:00 CHEM PANEL 2020-12-23 8.3 [facility] [place] nn 13:11:00 CHEM PANEL 2020-12-23 5.5 [facility] [place] nn 13:11:00 CHEM PANEL 2020-12-23 2.6 [facility] [place] nn 13:11:00 CHEM PANEL 2020-12-23 61 [facility] [place] nn 13:11:00 CHEM PANEL 2020-12-23 73 [facility] [place] nn 13:11:00 CHEM PANEL 2020-12-23 0.5 [facility] [place] nn 13:11:00 CHEM PANEL 2020-12-23 7.3 [facility] [place] nn 13:11:00 CHEM PANEL 2020-12-23 2.9 [facility] [place] nn 13:11:00 CHEM PANEL 2020-12-23 13:11:00 Test Item Value Reference Range Interpretation Comme nts A/G Ratio (test code = A/G Ratio) 0.9 1 0.7-1.6 [facility] [id number] 13:11:0087[facility] PANEL 2020-12-23 13:11:0017[facility]annCHE[facility] [id number] 13:11:0097[facility] [id number] 13:11:00 Test Item Value Reference Range Interpretation Comments B/C Ratio (test code = B/C Ratio) 26 1 6-25 [facility] [id number] 13:11:001.8[facility]ann[facility] PANEL 2020-12-23 13:11:003.4[facility] HcajqmdLNAPISSTEI8639-55-56 13:11:0056.9[facility] GuudyhyIDFXCKXTKO2330-08-05 13:11:0028.8[facility] GekctijKIUWODRZGN9392-55-04 13:11:0010.4[facility] WrdfvavOETICKCKFU4440-80-14 13:11:002.8[facility] [place] JYSNCGQMGB7118-07-58 13:11:001.1[facility] CirgofbAADRRNOFYL5106-09-60 13:11:003.4 [facility] MdpnztoHJDSGSLAJU0352-73-55 13:11:001.7[facility]annHEMATOLOGY 2020-12-23 13:11:000.6[facility] MvgbxeiYOEODIVRHM3214-52-34 13:11:000.2[facility] FegibagKMVQBFFUXR0118-67-77 13:11:000.1[facility] UeqznzgMKPAYAYTNM4161-77-69 13:11:006.0[facility] GngocmoUSTLKQXNVC9036-68-27 13:11:003.86[facility] [place] AHDULDGJHE9048-75-26 13:11:0011.1[facility] FqicpvbEKYJUQWDNV6649-17-47 13:11:00 33.1[facility] ChggslnDJYPPWBKXU6619-00-58 13:11:0085.8[facility] HermannHEMATOLOGY 2020-12-23 13:11:00 Test Item Value Reference Range Interpretation Comments MCH (test code = MCH) 28.8 pg 27.0-31.0 [facility] HmmliadABEVQWIFUM1250-84-57 13:11:0033.6[facility]annHEMATOLOGY 2020-12-23 13:11:0019.4[facility] PocmlsuHAUMYPYCPX2386-94-58 13:11:72156Axtislba MfvoveqWGQYEXQRDY0032-83-14 13:11:0010.2[facility]annCHEM ETUSE5636-58-07 08:13:001.7[facility]annCHEM XQMFZ3400-59-86 08:13:52391Wdqzvedk HermannCHEM MRYEZ6368-82-82 08:13:0017[facility]annCHE[facility] ZWKPS5414-12-11 08:13:000.72 [facility] VEJZN3318-05-41 08:13:24152Edmasfzt HermannCHEM PANEL 2020-12-22 08:13:003.5[facility]annCHEM ZPCBC7717-32-74 08:13:46500Frhxbikv HermannCHEM DCMNR0236-42-04 08:13:0028[facility]annCHEM OLCXV7885-98-60 08:13:008.5[facility]annCHE[facility] GNLPG9610-81-93 08:13:007.9[facility]annCHEM HALKM8931-32-05 08:13:0082[facility]annCHE[facility] TWZXO3687-30-17 08:13:002.9 Memorial AuzscglGIILWCYEVZ4196-42-18 08:13:0067.1[facility]annHEMATOLOGY 2020-12-22 08:13:0021.6[facility] MueqpquRCIDJGLGQZ2666-89-88 08:13:008.6[facility] QcrsxafGJZXROOCZN8608-38-54 08:13:001.7[facility] ZmnxiyuXGCSOVHNBS1956-07-08 08:13:001.0[facility] IbnsmgfGJQFFVDFLT2666-03-85 08:13:004.2[facility] YRFFPIEOXL4674-78-33 08:13:001.4[facility] UbpetgzYRHGPHWELU7643-77-10 08:13:000.5 [facility] HwcbsatGEAHUSDEUS7463-94-17 08:13:000.1[facility]annHEMATOLOGY 2020-12-22 08:13:000.1[facility] HihtvzyMVTLTWWIZI6468-41-20 08:13:006.3[facility] AxtxofzCHUVBZMKDK0175-61-99 08:13:003.91[facility] YgjutiaJFRKMBVHZQ9892-35-53 08:13:0011.1[facility] RhbjfzdTWFUENBHTF1087-85-83 08:13:0033.7[facility] KPTCSLJGZK7510-49-33 08:13:0086.1[facility] AxmuvjyMWUXWIXXLK7338-46-61 08:13:00 Test Item Value Reference Range Interpretation Comments MCH (test code = MCH) 28.5 pg 27.0-31.0 [facility] TtpezvmFRSWRQNOQY1179-52-35 08:13:0033.1[facility]annHEMATOLOGY 2020-12-22 08:13:0019.3[facility] OvtzdomGQSZUALFSO3986-93-45 08:13:65310Wrdsihbt LdygocgHJLPHUYNDN4762-36-10 08:13:0010.1[facility]annCHEM KBFOV5472-13-20 10:42:002.7[facility]annCHEM DHUMT8427-08-43 10:42:0083[facility]annCHEM OHGMC4295-79-81 10:42:0010[facility]annCHEM WQPPC9269-99-12 10:42:000.55 [facility]annCHE[facility] KPYGO8460-29-57 10:42:43737Lvmibnih HermannCHEM PANEL 2020-12-21 10:42:004.2[facility]annCHEM KRNQP3806-91-96 10:42:16572Wzyackgo HermannCHEM FKMQV6236-46-15 10:42:0025[facility]annCHEM ZRJLF9475-22-50 10:42:007.9[facility]annCHEM DJTFO8881-49-20 10:42:0011.2[facility]annCHEM GUGAV7049-55-26 10:42:0092[facility]annCHEM IIABV8118-49-00 10:42:001.8 [facility] KttocqlJGPJEQKGUV6322-98-30 10:42:006.6[facility]annHEMATOLOGY 2020-12-21 10:42:004.22[facility] UghlcmuIDCJNIACQS2850-16-61 10:42:0011.8[facility] GgfzqawEYTDXUNDYD1426-57-22 10:42:0036.0[facility] PdjqehsBSNGHKJKGV8569-24-09 10:42:0085.3[facility] KfoskbxTPIQHGBLAV2966-28-92 10:42:00 Test Item Value Reference Range Interpretation Comments MCH (test code = MCH) 27.8 pg 27.0-31.0 [facility] ZusnkalHWKOPVZXLC1842-63-98 10:42:0032.6[facility]annHEMATOLOGY 2020-12-21 10:42:0019.5[facility] NtjufarMALQXCXWKI5675-90-55 10:42:02665Hkxovcvj VcenawtQLUWNTZCBE1572-87-17 10:42:0010.0[facility] RbnvxvbWWEUWBYGJB4838-21-14 10:42:0056.9[facility] DwdfrnbYPXUJULAGS9410-99-12 10:42:0028.1[facility] ADBCNORCUG2204-98-58 10:42:0010.4[facility] JogpfjvVJUYUFFSIJ5797-30-58 10:42:00 3.5[facility] QcerdvpCJDZRFMRPF3447-54-85 10:42:001.1[facility]annHEMATOLOGY 2020-12-21 10:42:003.8[facility] JezjwnpIRUGNRBHPZ9956-74-97 10:42:001.9[facility] SwoijfsIDXXRKPYWO7178-35-03 10:42:000.7[facility] ZpzwxeyVTEKVDJZEA6972-86-81 10:42:000.2[facility] AukfcdrWCRNBYUUHD0736-08-99 10:42:000.1[facility] HermannCHEM QRYBM2763-37-62 11:26:001.9[facility]annCHEM QJCAW6629-94-62 11:26:0093 [facility]annCHEM TZRGV4946-56-44 11:26:0010[facility]annCHEM PANEL 2020-12-20 11:26:000.62[facility]annCHEM OATZD4466-27-42 11:26:69709Qkhrnivj HermannCHEM DAQRA7689-87-19 11:26:004.2[facility]annCHEM GGLSR7706-24-73 11:26:53788Ixumoeoq [facility]annCHE[facility] XLSWT4275-43-38 11:26:0031[facility]annCHE[facility] RVQLP6392-18-79 11:26:005.2[facility]annCHEM TVERU0839-44-99 11:26:007.7 [facility]annCHE[facility] ZJBEY5801-75-50 11:26:0089[facility]annCHEM PANEL 2020-12-20 11:26:002.0[facility] RjmdwicTKCNNIWPJA5948-53-47 11:26:005.5[facility] ZcdlzeeOGQQWTQPOV4167-44-74 11:26:003.84[facility] TbgcpozGYLDSXREDS9232-79-89 11:26:0010.9[facility] YoaevqcEKYYTXFCCT1075-31-87 11:26:0033.3[facility] QGNGOIZDKW7964-20-92 11:26:0086.8[facility] MayotbuRRIZYOAFYF6907-37-27 11:26:00 Test Item Value Reference Range Interpretation Comments MCH (test code = MCH) 28.5 pg 27.0-31.0 [facility] JkhqsuvBJHPDGIROH3381-06-49 11:26:0032.8[facility]annHEMATOLOGY 2020-12-20 11:26:0019.5[facility] GbfvedrATOBYYJEVC9757-29-81 11:26:19616Rswekxdh HdoulbtQJDKBFSKUO1564-27-34 11:26:0010.4[facility] FyocqyoFYBOVIXWDX7933-24-50 11:26:0061.7[facility] LwwpshbJYBMUCVPVD0696-89-50 11:26:0020.3[facility] PYRNWAOYBO7078-04-87 11:26:0012.8[facility] ZmqvfykHFLYUIEJDG2126-76-69 11:26:00 4.1[facility] OfalcuoYAGTGFQFQS3831-05-61 11:26:001.1[facility]annHEMATOLOGY 2020-12-20 11:26:003.4[facility] EbgfrlyGVBCBXZWOF4781-33-55 11:26:001.1[facility] SrgdgueKUCLBABRLN3450-06-75 11:26:000.7[facility] FofodyrXYVLYCMUOX4997-60-30 11:26:000.2[facility] DdihnikSDOOTRDYVX6899-66-17 11:26:000.1[facility] PUPADANVSNIB4945-32-59 03:07:003.9[facility] RmxuzfjTHHTHOGRDZ5014-27-91 16:45:00 5.2[facility] LbspgozCISBYSGEOF1992-07-58 16:45:003.61[facility]annHEMATOLOGY 2020-12-19 16:45:0010.7[facility] IofkertIRRJNWUCRF7499-81-28 16:45:0031.6[facility] JdtbubvFTOAVXIXLO1898-46-40 16:45:0087.4[facility] KiejgbtXSQCFZMJIE1875-77-46 16:45:00 Test Item Value Reference Range Interpretation Comments MCH (test code = MCH) 29.6 pg 27.0-31.0 [facility] EgpxpkuODOGMUNQPS3864-64-06 16:45:0033.8[facility]annHEMATOLOGY 2020-12-19 16:45:0019.1[facility] LfcclsrYXXFPHFZYW0053-64-57 16:45:06416Pyrrujgw RlfswwiXFSCZBYNDZ6060-88-38 16:45:0010.1[facility] TwjykbqZZTYACBTQM7381-03-37 16:45:00Normal (12/19/20 11:45 AM)[facility] AhhzpxaDMJQNYPUAM5145-97-98 16:45:00 73.4[facility] LflfmvmBFCACCQWIR0441-49-91 16:45:0014.8[facility]annHEMATOLOGY 2020-12-19 16:45:0010.2[facility] CtymzpmVZUWINVTWQ6002-01-68 16:45:000.7[facility] FzdjnuuYZIORYGDSQ8770-74-37 16:45:000.9[facility] CwbvvcoMFZAMULTJD3811-48-70 16:45:003.8[facility] UqqriwbEWHRZMQUTP5162-80-05 16:45:000.8[facility] GHOJETCJNU6688-12-52 16:45:000.5[facility] McfchaeMVMHVSMVTG0721-57-63 16:45:00 Slight *ABN*(12/19/20 11:45 AM)[facility] AtaieoyMWXFNQLSZI5451-91-22 16:45:00 Moderate *ABN*(12/19/20 11:45 AM)[facility] XWRJZ9665-65-25 16:24:00Yellow *NA*(12/19/20 11:24 AM)[facility] JNBGH2486-74-89 16:24:00Clear (12/19/20 11:24 AM)[facility] KCYSU1028-09-30 16:24:00 Test Item Value Reference Range Interpretation Comments UA Spec Grav (test code = UA Spec 1.015 1 Grav) [facility] LLCEP4141-04-59 16:24:00 Test Item Value Reference Range Interpretation Comments UA pH (test code = UA pH) 7.0 1 5.0-8.0 [facility] ZUIJB4556-34-52 16:24:00Negative *NA*(12/19/20 11:24 AM) [facility] NZMJE8276-66-86 16:24:00Negative (12/19/20 11:24 AM) [facility] CESKZ5698-15-39 16:24:00Negative (12/19/20 11:24 AM) [facility] FIBPD7128-82-66 16:24:00Negative (12/19/20 11:24 AM) [facility] SESTP4365-21-36 16:24:004[facility] ZSLHD1990-23-29 16:24:006[facility] VDRVZ1826-99-53 16:24:001 [facility]annCHEM WVKHA0804-53-59 15:53:22798Yctvvklk HermannCHEM PANEL 2020-12-19 15:53:0010[facility]annCHEM ERTYH3121-60-41 15:53:000.72[facility]annCHEM MAKZJ6359-79-56 15:53:19302Tppeqtio HermannCHEM XOBWM9190-95-57 15:53:58392Hzehvryt HermannCHEM GWWJU9893-31-28 15:53:0035[facility]annCHE[facility] BDEYW3417-08-79 15:53:005.1[facility]annCHEM OLFQG6868-49-19 15:53:007.5 [facility]annCHE[facility] VQGWM0392-16-06 15:53:0082[facility]annCHEM PANEL 2020-12-19 15:53:001.7[facility]annCHEM DDMSQ3354-55-98 15:53:002.8[facility] HermannCARDIAC EJNQZXC8371-88-90 10:02:00<0.02[facility]annBLOOD BANK QKJVDQZ3603-94-07 07:30:00Product available 4(12/19/20 2:30 AM)[facility] WTUAUIRZYP4769-55-63 03:56:00Not Detected (12/18/20 10:56 PM)[facility] RQEFTQF5512-12-13 03:45:00Negative (12/18/20 10:45 PM)[facility]annCARDIAC PGHPHGM4276-75-05 03:45:30389Gzkxsapf HermannCARDIAC HAMHOWR7234-70-50 03:45:00 <0.02[facility]annCHEM PJCEY4529-90-66 03:45:00 Test Item Value Reference Range Interpretation Comments B/C Ratio (test code = B/C Ratio) 19 1 6-25 [facility]annCHE[facility] UDROP7825-29-17 03:45:003.0[facility]annCHEM PANEL 2020-12-19 03:45:89023[place] HermannCHEM BIKWW8694-89-59 03:45:93079Dprttlui HermannCHEM MMUCV8330-71-52 03:45:006.6[facility]annCHEM NNYFF1728-02-57 03:45:35650Gmdvfeav HermannCHEM ULDWY9249-81-25 03:45:000.6[facility]annCHEM GEQRK8137-86-14 03:45:003.6[facility]annCHEM PAYHL2288-86-16 03:45:00 Test Item Value Reference Range Interpretation Comments A/G Ratio (test code = A/G Ratio) 0.8 1 0.7-1.6 [facility]annCHE[facility] RPJSP2302-05-98 03:45:001.8[facility]annHEMATOLOGY 2020-12-19 03:45:00 Test Item Value Reference Range Interpretation Comments PT (test code = PT) 14.2 s 12.0-14.7 [facility] HiokzhhFHFVNJXNHH0883-05-21 03:45:00 Test Item Value Reference Range Interpretation Comments INR (test code = INR) 1.11 1 0.85-1.17 [facility]DXA9286[facility] 03:45:00 Test Item Value Reference Range Interpretation Comments PTT (test code = PTT) 27.8 s 22.9-35.8 [facility] AijisyeCAJIJZEBAM1688-01-11 03:45:000.1[facility] HermannIMMUNOLOGY 2020-12-11 12:33:00Not Detected (12/11/20 7:33 AM)[facility]annCHEM PANEL 2020-06-23 07:32:0082[facility]annCHEM TRGMJ2725-96-51 07:32:0013[facility]annCHEM ZPPCM8268-39-03 07:32:000.54[facility]annCHEM THTWL0602-19-63 07:32:92284Tcodhdqs HermannCHEM EIIAI7010-92-17 07:32:004.1[facility]annCHEM NGODY5887-20-26 07:32:13707Gftvloio HermannCHEM YSHBI4653-83-68 07:32:0030 [facility]annCHE[facility] FAXDD2598-11-08 07:32:008.6[facility]annCHEM PANEL 2020-06-23 07:32:0011.1[facility] HermannCHEM NYRWQ7281-00-44 07:32:0093[facility] EpudzkzFDUKSGUDXC8675-55-71 07:32:007.6[facility] KqlgsdeDBCTBDEQSI8098-66-46 07:32:003.57[facility] ImrwsmpPIIVXHDJDG5081-87-14 07:32:0010.5[facility] RSUMZNNDXD5050-76-37 07:32:0031.8[facility] HahnyieYHCGJAHOAF4181-58-56 07:32:00 89.1[facility] XyxaytnZVPIVTIAPK0358-52-85 07:32:00 Test Item Value Reference Range Interpretation Comments MCH (test code = MCH) 29.4 pg 27.0-31.0 [facility] AekdtlyEUPDKOEALL1910-72-58 07:32:0033.0[facility] HermannHEMATOLOGY 2020-06-23 07:32:0017.9[facility] TweivxzFHTOCQBLRA8498-73-36 07:32:60024Dxduhfqq NjwztduCGISRNZCVC6954-30-72 07:32:008.6[facility] JhbmkihYUDNSKTDCB2142-26-15 07:32:0059.8[facility] ForgodnZPIVSJSZQZ7712-16-22 07:32:0027.5[facility] MXTTQDMMHK7680-92-25 07:32:009.0[facility] FsfblhnYQFPDFBGMM2814-46-01 07:32:001.7 [facility] UfvfhnqDJRFSRJRVV4633-79-01 07:32:002.0[facility] HermannHEMATOLOGY 2020-06-23 07:32:004.5[facility] DyppxwtRWOFYPWQFU3513-20-26 07:32:002.1[facility] DmcdyavGIUNEQDTNM8890-60-30 07:32:000.7[facility] RmzifrqWJTLDIUPSV6913-62-80 07:32:000.1[facility] PqfucrnUTFHSUSAZO8658-43-39 07:32:000.2[facility] HermannCHEM KTUCZ2141-36-99 07:12:38731Ydthaueg HermannCHEM URXWK6715-85-71 07:12:0013 [facility]annCHEM MUPUY4018-23-60 07:12:000.51[facility]annCHEM PANEL 2020-06-21 07:12:95618Rdonbjrd HermannCHEM MNFUB9179-69-28 07:12:003.9[facility] HermannCHEM WDYEO9995-80-16 07:12:32022Dussycxh HermannCHEM VSSBC3311-20-82 07:12:0031[facility]annCHEM LQAPV6194-96-03 07:12:008.6[facility]annCHEM FNUGF3806-39-30 07:12:009.9[facility]annCHEM WWZWL2692-05-63 07:12:0094 [facility]annCHEM DSOGQ0218-25-94 07:12:001.7[facility] HermannCHEM PANEL 2020-06-21 07:12:003.6[facility] TegdwjuGPNNMKCQBD7349-03-57 07:12:008.1[facility] HmyebwkIHRIPGFUYN9773-74-06 07:12:003.54[facility] WwqhfwfHQZWZXMAZF7960-54-58 07:12:0010.9[facility] VjseahzUTDRKMSZPW5033-43-59 07:12:0032.3[facility] IOTPBVCKYR3148-30-34 07:12:0091.1[facility] NxyxugcRFHQZCBEEC6155-58-61 07:12:00 Test Item Value Reference Range Interpretation Comments MCH (test code = MCH) 30.8 pg 27.0-31.0 [facility] VwswsgbUSWQLOCCLS7167-28-15 07:12:0033.9[facility] HermannHEMATOLOGY 2020-06-21 07:12:0017.2[facility] DrqdgmmGDDYCXJBIB6722-38-92 07:12:89933Wbyakbtc FrvvbpgQVNYTOPWCF3405-98-73 07:12:008.6[facility] IuvbpiuWWAKHEINJA2895-56-53 07:12:005.0[facility] VbtddufTDJTUOWFMQ1340-10-04 07:12:002.2[facility] YMMMHZBJKV5309-20-64 07:12:000.6[facility] PyoinxhQHWXCLZMES9299-23-78 07:12:000.2 [facility] BecvhsmGXOIYCALBJ4004-00-11 07:12:0062.0[facility] HermannHEMATOLOGY 2020-06-21 07:12:000.0[facility] NmbustgPWKRKKYYRZ2489-89-87 07:12:0027.0[facility] HsndxqwTFIMRBGBBS6217-74-42 07:12:008.0[facility] BbcdmasNXAHEKWVBB8410-77-36 07:12:003.0[facility] HwhzcnxUQLNVXILNH7152-56-17 07:12:000.0[facility] QGLEWUFYYK7404-55-63 07:12:00Normal (06/21/20 2:12 AM)[facility] HermannPARATHYROID SAPWYHV0061-26-19 07:12:001.09[facility] HermannPARATHYROID CAGWGUX8396-46-51 07:12:001.09[facility] HermannCHEM AGVHU0320-26-71 07:00:003.7[facility]annCHEM SGZVX4359-58-94 07:00:002.0[facility]annCHEM ZLGNF3935-86-92 07:00:67914 [facility]annCHEM ARPYX8177-72-44 07:00:0019[facility]annCHEM PANEL 2020-06-17 07:00:000.52[facility]annCHEM VASMP5389-88-90 07:00:13966Upfdinfa HermannCHEM IQELJ7911-40-27 07:00:003.8[facility] HermannCHEM LLGNK4121-06-02 07:00:15542Ky[place]gu[place] HermannCHEM RSMUC3088-16-37 07:00:0033[facility]annCHEM XFYNE3700-05-57 07:00:008.3[facility]annCHEM MCKHA7132-89-19 07:00:005.8 [facility]annCHEM FYZFX3823-28-95 07:00:0094[facility]annHEMATOLOGY 2020-06-17 07:00:0010.6[facility] CbqgjvaIVJOGPZRPO0234-25-78 07:00:003.48[facility] NatmkumLWMECADUXF9242-82-41 07:00:0010.8[facility] LlelzjtLISICAZEVL4902-66-76 07:00:0032.1[facility] IwncikbANSSVPSJJA8940-98-47 07:00:0092.5[facility] HXETWIVTSX8841-96-70 07:00:00 Test Item Value Reference Range Interpretation Comments MCH (test code = MCH) 31.0 pg 27.0-31.0 [facility] EgylwboHCSGVMTETB8766-31-78 07:00:0033.5[facility]annHEMATOLOGY 2020-06-17 07:00:0016.3[facility] JhiyhghPUTOIFHQTD1638-01-58 07:00:78030Zxjiesli JcfqaorNZAVTRDWYH2872-26-11 07:00:008.6[facility] IdzgetrYIHDAEXPQB7456-48-85 07:00:0067.3[facility] ZgqcrknQDQOJEMDUX0373-67-56 07:00:0018.6[facility] BAYLJXYXPN5715-38-85 07:00:0010.7[facility] WaqebyvMQRFXGBQKO2575-74-09 07:00:00 2.2[facility] RmjiqxkDCRJKAEECY3019-18-99 07:00:001.2[facility] HermannHEMATOLOGY 2020-06-17 07:00:007.1[facility] RxazeupIFAPNWBGWW2342-73-82 07:00:002.0[facility] VhauipvHNTUXFBMUU1555-12-05 07:00:001.1[facility] PowceumMCSXXKLORF9905-81-05 07:00:000.2[facility] ZmvuxauDMYLSHIOJO7619-18-90 07:00:000.1[facility] EPLYAOGZJU7189-48-37 13:03:00Not Detected (06/13/20 8:03 AM)[facility] PDAHRFFRTQ8233-32-62 05:47:008.5[facility] DykvwtyCAOEPMWKLV6261-07-36 05:47:00 3.08[facility] YlmsyjwXIHBCODOIJ5520-05-39 05:47:009.2[facility]annHEMATOLOGY 2020-06-11 05:47:0027.3[facility] LlwvcrvYICTCPOJEO2338-55-53 05:47:0088.8[facility] RzbdmiqUNUVKZUPAJ3760-76-53 05:47:00 Test Item Value Reference Range Interpretation Comments MCH (test code = MCH) 29.9 pg 27.0-31.0 [facility] BjnxxrkRPEVTOYAPX4920-73-18 05:47:0033.7[facility]annHEMATOLOGY 2020-06-11 05:47:0014.7[facility] LezmyhyKZGKISSJIE4186-53-95 05:47:95643Yrucwvvo KgpvhvjUZCPRXUYDA6616-68-42 05:47:0010.2[facility] LziynnmFBWQGFWBTA5980-24-05 05:47:0062.7[facility] LevubpoBRECNDYEKF3769-58-64 05:47:0022.1[facility] JRPHXMQFHC7244-35-60 05:47:0010.5[facility] FthcbqrWGYOJHRGZU1805-54-08 05:47:00 3.8[facility] TvsbdhbUAAHBKSEHJ9756-66-16 05:47:000.9[facility]annHEMATOLOGY 2020-06-11 05:47:005.3[facility] RvkzfeiKILUUYGSNT4356-87-26 05:47:001.9[facility] IehbabuEITTLCKTIO7010-97-91 05:47:000.9[facility] VraqcdyTOIUMKXXLX0756-83-06 05:47:000.3[facility] YqehkziWIDQMDWPLE7821-72-93 05:47:000.1[facility] HermannCHEM EKCEX3452-47-57 05:45:0096[facility]annCHEM EYSAB0549-60-71 05:45:0011 [facility]annCHEM OPHWT8043-26-95 05:45:000.49[facility]annCHEM PANEL 2020-06-11 05:45:96444Lrvcjlrw HermannCHEM HYZWK5867-33-55 05:45:003.5[facility]annCHEM KKSQM2187-16-50 05:45:44684Dnebjqxw HermannCHEM ANCRW2857-41-55 05:45:0027[facility]annCHEM UAHIM6076-88-15 05:45:007.8[facility]annCHEM ZAOTH7146-13-69 05:45:0011.5[facility]annCHEM XAZKT5188-08-63 05:45:0095 [facility]annCHEM CBIKL5996-78-29 07:28:58120Orlzdsrq HermannCHEM PANEL 2020-06-10 07:28:0016[facility]annCHEM PBGFU4332-23-41 07:28:000.53[facility]annCHEM PULCZ4057-20-91 07:28:64585Fwqhbyij HermannCHEM VCAFX9434-06-55 07:28:003.7[facility]annCHEM FYTAS4559-27-35 07:28:90516Sgcgmeog HermannCHEM MHZKX9174-33-06 07:28:0027[facility]annCHEM BKUFV9568-76-75 07:28:008.0 [facility]annCHEM XJWST3983-61-42 07:28:009.7[facility]annCHEM PANEL 2020-06-10 07:28:0093[facility] LnoeudjOIRODQCOOP8126-46-46 07:28:0010.5[facility] JqrzknmQLRQXDYOGH1792-11-92 07:28:003.69[facility] XjvityeDCVVJGWEJE9804-46-66 07:28:0010.6[facility] IkuopokHKZWALBYYH8082-60-65 07:28:0032.4[facility] WXIGCVGYHR4681-12-18 07:28:0087.9[facility] VxatpzuFELCAFTNZJ6373-38-49 07:28:00 Test Item Value Reference Range Interpretation Comments MCH (test code = MCH) 28.8 pg 27.0-31.0 [facility] IuvndaaEDKXUVBNPS1574-29-10 07:28:0032.8[facility]annHEMATOLOGY 2020-06-10 07:28:0014.4[facility] NdtwswyRWXHUHRNPX6777-91-23 07:28:88185Omiahvtl YpzabnxHOGWYRAGUR6620-78-52 07:28:0010.6[facility] AwqaxtoEGKFASPGKM9991-68-48 07:28:0067.8[facility] KezwounSGEFEXCWNM9174-22-28 07:28:0017.4[facility] MTTFCHDZQD7895-54-69 07:28:0013.4[facility] WkmkbhlREAUXCSWYO0074-94-17 07:28:00 0.9[facility] DwrqjdgLTQFJAYOSL2840-77-06 07:28:000.5[facility]annHEMATOLOGY 2020-06-10 07:28:007.1[facility] WzicmyaCGRVRPHUTZ7804-85-53 07:28:001.8[facility] EmsqhlqUEMHCQYFNC8031-88-64 07:28:001.4[facility] LdepkcqJXUFODASLL3795-59-49 07:28:000.1[facility] HermannPARATHYROID HIBCJQD9647-72-97 07:28:001.05[facility] HermannPARATHYROID BTFQASF3279-56-77 07:28:001.02[facility] HermannCHEM PANEL 2020-06-10 05:27:31800Uaxtpyka HermannCHEM FJEAC5892-36-52 05:27:0015[facility]annCHEM TUPZN2278-18-47 05:27:000.54[facility]annCHEM ZUOBJ6659-11-71 05:27:84027Ujotvmqb HermannCHEM KBTWT5231-53-78 05:27:003.6[facility]annCHEM DINWF8515-71-93 05:27:35456Xtlgrjnq HermannCHEM KYCHD9945-50-86 05:27:0024 [facility]annCHEM XJJIJ6259-27-61 05:27:008.1[facility] HermannCHEM PANEL 2020-06-10 05:27:0013.6[facility]annCHEM AFYFK5722-32-05 05:27:0092[facility]annCHEM OBEFF3430-70-44 05:27:001.8[facility] WqlvdpqXIUOGVDZSQ1823-83-32 05:27:0010.emorial YhxgmlyLPMUSDDQBF5905-82-85 05:27:003.55[facility] PMBLCRHQBC4884-92-39 05:27:0010.7[facility] GnagcvfCUMPEZJREJ8959-23-94 05:27:00 31.6[facility] DrpxidkVTKSQQPDCF1485-26-69 05:27:0089.1[facility] HermannHEMATOLOGY 2020-06-10 05:27:00 Test Item Value Reference Range Interpretation Comments MCH (test code = MCH) 30.1 pg 27.0-31.0 [facility] UimmcbsJLRZXHWVXG4665-09-45 05:27:0033.7[facility] HermannHEMATOLOGY 2020-06-10 05:27:0014.9[facility] DppwxkrLVLXPONMWA9903-69-73 05:27:02327Dbhezxgb UpsyimwWAXPPIJEWI5783-53-70 05:27:0010.3[facility] JmnzhoxMDLNMTIAIX7041-15-88 05:27:0071.2[facility] HkhlxxhYLSZAARMXK4727-69-88 05:27:0014.4[facility] LMGSRYFEPU7070-75-83 05:27:0013.6[facility] KajotgsELOOOQKAKQ9263-72-46 05:27:00 0.5[facility] LkwtnrsXLOUEJAOGH9921-17-77 05:27:000.3[facility] HermannHEMATOLOGY 2020-06-10 05:27:007.2[facility] NambeehTDSPXNGCGS1282-46-02 05:27:001.5[facility] BoplgrpEEYOTTGEDA3734-05-75 05:27:001.4[facility] ShvrhmiRJRMUHESXU1330-00-99 05:27:000.1[facility] ThplychCPVMDV1332-32-03 20:21:0013[facility] HermannCHEM PANEL 2020-06-09 08:53:52634Kdhjwpbv HermannANEMIA XAKNS9401-54-57 03:05:38358Qwflhbid HermannANEMIA PAEFX2534-42-70 03:05:0014.7[facility] HermannCHEM OBCTA4555-05-14 03:05:00 Test Item Value Reference Range Interpretation Comments B/C Ratio (test code = B/C Ratio) 22 1 6-25 [facility]annCHEM KUJLJ5224-91-95 03:05:005.3[facility] HermannCHEM PANEL 2020-06-09 03:05:002.2[facility] HermannCHEM VZIMB8417-73-77 03:05:003.1[facility] HermannCHEM USTEY5353-03-01 03:05:00 Test Item Value Reference Range Interpretation Comments A/G Ratio (test code = A/G Ratio) 0.7 1 0.7-1.6 [facility]CHE[facility] CMWHY9772-94-65 03:05:0058[facility]annCHEM PANEL 2020-06-09 03:05:0037[facility]annCHEM ALXDB7700-16-70 03:05:17788Vcxaqyex HermannCHEM SJWBE9708-85-03 03:05:000.6[facility]annCHEM UWVND9288-37-48 03:05:0017.0[facility] UmrqlecFFHLJLOTMO5880-16-30 03:05:000.1[facility] WAZIDY5219-11-26 03:05:0054[facility] ChuwarkMOYIKN8477-58-75 03:05:0066[facility] PuhlljsRVWPKR9952-84-12 03:05:0048[facility] PexrlshXCFENC2835-96-73 03:05:00 Test Item Value Reference Range Interpretation Comments CHD Risk (test code = CHD Risk) 1.38 1 3.90-5.80 [facility] FabrlfwPEPIPR4363-11-28 03:05:007[facility] OmncixdXQGRRS7223-66-75 03:05:00 Test Item Value Reference Range Interpretation Comments VLDL (test code = VLDL) 11 1 [facility]annSPECIAL ZKKGINNQV6365-46-85 03:05:005.8[facility]annDRUG IQTFKV8012-08-56 23:33:00Negative *NA*(06/08/20 6:33 PM)[facility]annDR[facility] RULHCK9964-58-88 23:33:00Negative *NA*(06/08/20 6:33 PM)[facility]DR[facility] GPQYGT6054-57-16 23:33:00Negative *NA*(06/08/20 6:33 PM)[facility]ann[facility] DIGXWK6604-08-90 23:33:00Negative *NA*(06/08/20 6:33 PM)[facility]annDR[facility] SAOQCH4053-54-71 23:33:00Negative *NA*(06/08/20 6:33 PM)[facility]annDR[facility] MVTVAX5111-53-56 23:33:00Negative *NA*(06/08/20 6:33 PM)[facility]annDR[facility] NNZCEY7864-38-77 23:33:00Negative *NA*(06/08/20 6:33 PM)[facility]annDR[facility] VPGNJJ0725-36-66 23:33:00See Note (06/08/20 6:33 PM)[facility] AND IKZEN5742-21-67 23:33:00Amber *ABN*(06/08/20 6:33 PM)[facility] FHLLS5175-33-26 23:33:00Slight *ABN*(06/08/20 6:33 PM)[facility] [id number] 23:33:00 Test Item Value Reference Range Interpretation Comments UA Spec Grav (test code = UA Spec 1.020 1 Grav) [facility] WKWMX8731-58-55 23:33:00 Test Item Value Reference Range Interpretation Comments UA pH (test code = UA pH) 5.0 1 5.0-8.0 [facility] [id number] 23:33:00Negative *NA*(06/08/20 6:33 PM) [facility] MJXNS4292-48-10 23:33:00Small *ABN*(06/08/20 6:33 PM) [facility] VJSUX2979-72-12 23:33:00<1.0[facility] URPAI2528-82-99 23:33:00Negative (06/08/20 6:33 PM)[facility] NMLLU0856-56-11 23:33:00Large *ABN*(06/08/20 6:33 PM)[facility] TUWZZ0698-15-34 23:33:0055[facility] AND CVKUQ6824-25-29 23:33:0013 [facility] WuiaeuxOQGBZSMSSM0370-50-32 13:49:00Not Detected (06/05/20 8:49 AM) [facility]annSARS-CoV2/[facility]-PCR ([facility])2020-04-12 08:30:00 Test Item Value Reference Range Interpretation Comments SARS-COV2/RT-PCR Negative Not Detected, (test code = Negative, See 09099-7) external report for linked test SARS-COV-2 [facility] PERFORMING LAB (test code = 23209-0) JIGAR (test code = Negative results do not JIGAR) preclude SARS-CoV-2 infection and should not be [...] of the Act. Fact Sheet for Healthcare Providers:https://www.[employer]ist/Documents/Xper t%20Xpress%20SARS%20CoV- 2/Fact%20Sheets/3023802 %51YFOP-GRR-3%20HEALTHCA RE%20PROVIDERS%20FACT%20 SHEET.pdf Fact Sheet for Healthcare Patients:https://www.[employer]/Documents/Xpert %20Xpress%20SARS%20CoV-2 /Fact%20Sheets/3023801% 21GZPI-EIP-7%20PATIENT%2 0FACT%20SHEET.pdf Performing Laboratory:[facility] [place] [address] [facility])2020-04-12 08:30:00 Test Item Value Reference Range Interpretation Comments SARS-COV2/RT-PCR (test code Negative Not Detected, Negative, = 6284331) See external report for linked test SARS-COV-2 PERFORMING LAB [facility] (test code = 5990548) Negative results do not preclude SARS-CoV-2 infection [...] of the Act.Fact Sheet for Healthcare Pro viders:https://www.[employer]/Documents/Xpert%20Xpress%20SARS%20CoV-2/Fact%20Sh eets/302-3802%28WICH-SPG-7%20HEALTHCARE%20PROVIDERS%20FACT%20SHEET.pdfFact Sheet for Healthcare Patients:https://www.[employer]asper/Documents/Xpert%20Xpress%20SARS%20CoV-2/Fact%20Sheets/302-3801%20SARS-COV -2%20PATIENT%20FACT%20SHEET.pdfPerforming Laboratory:[facility], [place] [address]JUKL ERFXD0465-62-48 09:15:75960Fwkjgbfq HermannCHEM LGBYF7992-63-31 09:15:0014[facility]annCHEM WSPFH9193-25-34 09:15:000.57[facility]annCHEM OVVIM4983-26-22 09:15:09258Vojafsle HermannCHEM EGASD3271-01-73 09:15:003.8[facility] HermannCHEM PQPWM2099-55-44 09:15:[address] [facility] HermannCHEM UENJG7166-95-79 09:15:0028[facility] HermannCHEM PANEL 2020-04-11 09:15:009.0[facility] HermannCHEM YLIME7776-83-75 09:15:009.8[facility] HermannCHEM XCPIM0802-39-51 09:15:0091[facility] HermannCHEM DIEGJ1191-46-47 09:15:001.9[facility]annCHEM FGTTN8286-74-29 09:15:004.6[facility] NZUIGNPNAY3586-96-01 09:15:0061.2[facility] JkdopmnFDFIYGQGUK8704-35-13 09:15:00 22.8[facility] JtuoxkjPXPEYUEJDZ7704-40-32 09:15:0010.9[facility] HermannHEMATOLOGY 2020-04-11 09:15:004.3[facility] AdxsxmmINVTRVYPUF4019-92-12 09:15:000.8[facility] AutfpvcJGKANGAGXK4437-07-26 09:15:004.4[facility] CvmuwtsIJKRXKNKVL5287-07-66 09:15:001.6[facility] OazkyjwPOXNLHKFGI7678-51-77 09:15:000.8[facility] LDSGLLDFSH4315-02-51 09:15:000.3[facility] JnjkakuIFUHUXKONQ7417-54-08 09:15:000.1 [facility] TkvmsaxRQTBNEUVAI9560-46-29 09:15:007.2[facility] HermannHEMATOLOGY 2020-04-11 09:15:003.98[facility] YozbabjKSIVWJGHNN3740-95-78 09:15:0012.1[facility] NevhynhCYVGASDYKM5728-32-84 09:15:0036.4[facility] XuuloqkOAWSSUHRRW6600-27-48 09:15:0091.4[facility] WeuawnsKBJKATDXVE9218-87-58 09:15:00 Test Item Value Reference Range Interpretation Comments MCH (test code = MCH) 30.4 pg 27.0-31.0 Memorial KxwfyoaGQIGJDOERX4860-59-10 09:15:0033.2[facility] HermannHEMATOLOGY 2020-04-11 09:15:0013.9[facility] RmlrouaYECSGPQHXG5457-51-74 09:15:07381Qlbydanc QiccogtETWQMCCDEH9190-41-12 09:15:0010.4[facility] HermannPARATHYROID PROFILE 2020-04-11 09:15:001.13[facility] HermannPARATHYROID UFGFKLQ0430-73-23 09:15:00 1.13[facility] JxvwtsuFLFHHNTHDWDG7937-92-99 10:43:003.8[facility] HermannCHEM PANEL 2020-04-10 06:02:95691Vesghnha HermannCHEM WYGLV9937-97-26 06:02:0010[facility] HermannCHEM QBORQ1277-35-39 06:02:000.53[facility] HermannCHEM RXMTQ7896-25-67 06:02:52701Jqgaaylm HermannCHEM VVWVW1089-53-16 06:02:00See Note 4(04/10/20 1:02 AM)[facility]annCHEM SLTOV3835-27-57 06:02:94657Nkucnifn HermannCHEM PANEL 2020-04-10 06:02:0030[facility] HermannCHEM GXDZR3155-25-09 06:02:00See Note (04/10/20 1:02 AM)[facility] UTBWB4782-32-41 06:02:008.0[facility] CPKCB8230-41-39 06:02:0093[facility] BFASQ7712-59-90 06:02:003.7[facility] ICUWV1882-45-95 06:02:002.3[facility] WJJVJQYGNT5965-80-08 06:02:007.6[facility] TkdvgfnNSUQCLDFNJ1587-09-49 06:02:00 4.01[facility] VqirsygXQWREEQDLS5024-82-77 06:02:0012.0[facility]annHEMATOLOGY 2020-04-10 06:02:0036.3[facility] TnduntdJSPNTOVLNI7805-80-96 06:02:0090.6[facility] QdkmgnlOVBBSGGGTT4970-41-83 06:02:00 Test Item Value Reference Range Interpretation Comments MCH (test code = MCH) 29.8 pg 27.0-31.0 [facility] LeqxnqnZIRACISLFK1040-18-85 06:02:0032.9[facility]annHEMATOLOGY 2020-04-10 06:02:0014.3[facility] SqubywjKQTMCIHXYF1639-60-97 06:02:85392Eyviavgp DivjcioKKOLPGXPFW7264-95-93 06:02:0010.9[facility] IpofcpjQLXZZSUGJU6705-91-59 06:02:0064.7[facility] LduzpmiQYRYVQOAJA1195-71-35 06:02:0020.4[facility] ETDRWYTDRF7448-62-81 06:02:0012.5[facility] IjylxrgHVFGMXCUSM6131-10-92 06:02:00 1.7[facility] AqvklmbMGNXUQJYEP0308-17-68 06:02:000.7[facility]annHEMATOLOGY 2020-04-10 06:02:004.9[facility] BfaohwvJJLPUJTEIK3938-84-91 06:02:001.5[facility] JeacowsSOVLFVTPBZ1496-47-89 06:02:001.0[facility] JpcjaooUTBIIYFFSA4900-01-95 06:02:000.1[facility] AzdhtzoJKZKVSBAVJ5943-27-57 06:02:000.1[facility] PARATHYROID XXNYKZM4298-97-27 06:02:000.92[facility]annPARATHYROID PROFILE 2020-04-10 06:02:000.92[facility]annCHEM CQHLL3560-12-90 06:08:91710Taymvytu HermannCHEM SKCJC8546-35-50 06:08:0012[facility]annCHE[facility] PAZEU8072-16-87 06:08:000.66[facility] ELZHT1603-54-11 06:08:82615Gwyfcqlr HermannCHEM URVCJ7273-29-05 06:08:62018Lndujnnl HermannCHEM MBYRQ9109-25-97 06:08:0030 [facility] BZONN5226-58-99 06:08:008.4[facility]ann[facility] PANEL 2020-04-09 06:08:009.5[facility] NBVZO7046-58-02 06:08:0087[facility]CHE[facility] MVZDZ8025-79-23 06:08:002.0[facility] RGWIU3260-69-08 06:08:003.0[facility] HjjzqykLKPUFCQKHM0682-65-15 06:08:007.7[facility] QIHYLTHQNY8165-79-18 06:08:003.97[facility] PyrnvacTNINARVXKL7729-76-72 06:08:00 12.4[facility] PxajxgsEGAJDSXBNT7798-10-65 06:08:0036.5[facility]annHEMATOLOGY 2020-04-09 06:08:0092.1[facility] PhwpvclAEPMCIUJYN9166-38-14 06:08:00 Test Item Value Reference Range Interpretation Comments MCH (test code = MCH) 31.2 pg 27.0-31.0 [facility] ZdxoujiZKVSODDGFG3442-28-76 06:08:0033.8[facility]annHEMATOLOGY 2020-04-09 06:08:0014.0[facility] KcxueldMRAWCSGKFP3328-49-55 06:08:13891Meocldoq NjebrofXXIQSAFYMJ6908-25-41 06:08:0010.5[facility] EjajpkeXSDZWXLIJA0946-68-43 06:08:0070.2[facility] LmkmafvGEXTNONHGE0287-35-90 06:08:0017.9[facility] ZBZVPCFSDM0510-23-29 06:08:0010.4[facility] FcjqlpfMLXZXPCZVO8857-33-28 06:08:00 1.3[facility] TtaggqwRCVMJSXGUJ2480-83-53 06:08:000.2[facility]annHEMATOLOGY 2020-04-09 06:08:005.4[facility] EzsftjbAHVPZUKYRH3321-55-46 06:08:001.4[facility] IohnlfoMABAHGLINF5473-43-13 06:08:000.8[facility] RzvemdsGIXNDSGZJG7601-29-92 06:08:000.1[facility] HermannPARATHYROID WHLJBYR4541-20-76 06:08:001.03[facility] HermannPARATHYROID YWKKMRY7159-64-69 06:08:001.02[facility]annHEMATOLOGY 2020-04-08 15:53:00 Test Item Value Reference Range Interpretation Comments PT (test code = PT) 15.6 s 12.0-14.7 [facility]xZIUFBPSYMI8767-56-[facility] 15:53:00 Test Item Value Reference Range Interpretation Comments INR (test code = INR) 1.23 1 0.85-1.17 [facility]GpodpxxSSVSVWKCVM6909-41-55 15:53:00 Test Item Value Reference Range Interpretation Comments PTT (test code = PTT) 36.5 s 22.9-35.8 [facility]neZQBNLRCUZN2605-56-33 10:14:00 Test Item Value Reference Range Interpretation Comments PT (test code = PT) 14.3 s 12.0-14.7 [facility] HospitalQoqubmdWHLRZCAMFR2008-55-10 10:14:00 Test Item Value Reference Range Interpretation Comments INR (test code = INR) 1.11 1 0.85-1.17 [facility] HospitalMxvbxysXITBVIMFYC7541-50-96 10:14:00 Test Item Value Reference Range Interpretation Comments PTT (test code = PTT) 39.1 s 22.9-35.8 [facility] HospitalBywhmgzSKAZDVTSEX6647-62-21 10:14:000.1[facility] 2020-04-08 03:38:00 Test Item Value Reference Range Interpretation Comments PT (test code = PT) 15.3 s 12.0-14.7 [facility] HospitalCgbfzgsLHSLZZJADC9540-19-64 03:38:00 Test Item Value Reference Range Interpretation Comments INR (test code = INR) 1.20 1 0.85-1.17 [facility] HospitalDrwixuiHNPQGHWVZT4674-46-03 03:38:00 Test Item Value Reference Range Interpretation Comments PTT (test code = PTT) 61.7 s 22.9-35.8 [facility] OSIJNWR2804-89-39 19:13:00Negative (04/07/20 2:13 PM) [facility] TQNUKEV6660-97-70 17:59:00Product available (04/07/20 12:59 PM)[facility] SWYHBZD8669-51-81 17:59:00Product available (04/07/20 12:59 PM)[facility] HospitalRnyrcrgYAFVWTUHMY0208-05-15 02:19:00 Test Item Value Reference Range Interpretation Comments PTT (test code = PTT) 27.4 s 22.9-35.8 [facility] KsydmmwEAPWIEIIAV3001-63-29 02:19:00 Test Item Value Reference Range Interpretation Comments PT (test code = PT) 15.1 s 12.0-14.7 [facility] InpkljpJRRUUIHXCU0384-32-03 02:19:00 Test Item Value Reference Range Interpretation Comments INR (test code = INR) 1.18 1 0.85-1.17 [facility] SposxxlZOFLCJCXVX3424-36-37 02:19:006.9[facility]annHEMATOLOGY 2020-04-07 02:19:004.11[facility] JdzifjkPJATMEERKH0473-07-67 02:19:0012.2[facility] XcxpshmLDTIWJFRYI4891-79-03 02:19:0037.5[facility] LhbcjwyLOCXYMUAMF7368-62-56 02:19:0091.2[facility] HudksnbGKSJEBYVLE0726-75-19 02:19:00 Test Item Value Reference Range Interpretation Comments MCH (test code = MCH) 29.7 pg 27.0-31.0 [facility] DkpjmgcBGFMCHELBY5871-19-54 02:19:0032.6[facility]annHEMATOLOGY 2020-04-07 02:19:0014.7[facility] CiacdonFEPQUUXZRL4638-45-85 02:19:71753Xeuurhka MnfypgjCQJNYPZZHK0584-47-82 02:19:0010.1[facility] ZtnijdwKGPBIVMCSZ2362-25-04 02:19:0023.0[facility] LayoconKHALTDCRWH2080-16-61 02:19:0010.1[facility] CFHJGZHJRW2113-17-20 02:19:000.9[facility] WviluplREKPVXFJQJ7012-46-96 02:19:004.4 [facility] TxihfucFSVJARUFAC7958-83-71 02:19:001.6[facility]annHEMATOLOGY 2020-04-07 02:19:000.7[facility] PadzsszYPJTJICIAS7150-34-84 02:19:000.1[facility] XzzfxcwBABUMNBEPU3801-48-75 02:19:000.1[facility] QwfhknuSAJBWEGHPE5291-48-46 02:19:0064.0[facility] JacnqtfJKLTYRHOPZ0759-66-69 02:19:002.0[facility] CARDIAC YPYTGXB9119-70-57 11:49:002.71[facility]annCHEM TFJPM6999-68-27 11:49:0088[facility]annCHEM EGGUO2562-72-79 11:49:009[facility]CHE[facility] GXZZO3001-56-80 11:49:000.54[facility]annCHE[facility] MBGVT2886-80-91 11:49:17663 [facility] LFDOM1233-38-14 11:49:003.5[facility]annCHEM PANEL 2020-04-06 11:49:55130Ufypeptu HermannCHEM ZLLEV2923-80-13 11:49:0029[facility]annCHEM HEBHO5542-95-02 11:49:009.5[facility]annCHE[facility] OIJUT8766-36-93 11:49:007.8[facility]annCHE[facility] IOJKY0479-68-43 11:49:00 Test Item Value Reference Range Interpretation Comments B/C Ratio (test code = B/C Ratio) 17 1 6-25 [facility] YBQCU7234-72-37 11:49:006.3[facility]annCHEM PANEL 2020-04-06 11:49:002.9[facility]CHE[facility] SYGQF7996-73-91 11:49:003.4[facility]annCHEM BUOEK9583-00-46 11:49:00 Test Item Value Reference Range Interpretation Comments A/G Ratio (test code = A/G Ratio) 0.9 1 0.7-1.6 [facility] AXHTU9262-43-00 11:49:0035[facility]annCHEM PANEL 2020-04-06 11:49:0051[facility]annCHEM YVUJF0092-07-22 11:49:0089[facility]annCHE[facility] TWTYY5766-86-93 11:49:000.7[facility]annCHEM ZCFAO7520-40-22 11:49:0092[facility]CHEM UBAZQ7753-13-91 11:49:001.8[facility]annCHEM MDQXU3980-21-29 11:49:002.9[facility] OumnpkhAHJLFGJWTJ8910-12-03 11:49:008.4 [facility] BgamuwnKQOQPXDHZI8750-73-21 11:49:004.09[facility]annHEMATOLOGY 2020-04-06 11:49:0012.5[facility] FimuvfgACRERBHIVZ2771-28-58 11:49:0037.2[facility] PhlsrxaYUBBWNOOCT6304-54-35 11:49:0091.0[facility] SmefeqlKIJWHHXHKF1923-41-37 11:49:00 Test Item Value Reference Range Interpretation Comments MCH (test code = MCH) 30.6 pg 27.0-31.0 [facility] BtrwgvdTYRKMZWRVD6230-80-04 11:49:0033.6[facility]HEMATOLOGY 2020-04-06 11:49:0014.2[facility] JsthsxlRFZJCVAXSZ7945-11-53 11:49:58707Ogqchqtu QgdxmotOSPMGTEXSX4555-45-96 11:49:009.[facility]orial ShbhtqsAHLMKYJUPB4776-72-29 11:49:00 Test Item Value Reference Range Interpretation Comments PTT (test code = PTT) 30.0 s 22.9-35.8 [facility] HwilfljXRIURWRCHL8160-85-67 11:49:00 Test Item Value Reference Range Interpretation Comments PT (test code = PT) 14.6 s 12.0-14.7 [facility] TqqdiqmGPCHNTOISI8973-27-21 11:49:00 Test Item Value Reference Range Interpretation Comments INR (test code = INR) 1.13 1 0.85-1.17 [facility] GguciidYXTVXKJFRZ1150-01-92 11:49:0065.5[facility]annHEMATOLOGY 2020-04-06 11:49:0021.6[facility] GthkekvKZBOHVMWMR3045-77-13 11:49:0010.7[facility] GemxqqzLHWEIBFHZB2075-11-91 11:49:001.[facility]orial SrsnhljAPPKEBUTIC0124-76-45 11:49:001.0[facility] GlgcksrOXGSMCPATC1384-02-14 11:49:005.5[facility] BTMBZYSQAW3272-72-12 11:49:001.8[facility] BlldoixMYPCBQPUOQ5606-97-33 11:49:000.9 [facility] BgmapndWLDTCQTISO1285-28-54 11:49:000.1[facility]annHEMATOLOGY 2020-04-06 11:49:000.1[facility] EiabfzqIIRLWB2723-18-84 11:49:0060[facility] IdztalqJEGJDX4863-82-67 11:49:0095[facility] MamabpsNNYPHE2642-08-00 11:49:0062 [facility] WsmshnfLRKQVQ8375-53-67 11:49:00 Test Item Value Reference Range Interpretation Comments CHD Risk (test code = CHD Risk) 1.53 1 3.90-5.80 [facility] CdgklgaZKDFYI9562-37-00 11:49:0021[facility] UrrktwuKBVESO5770-71-52 11:49:00 Test Item Value Reference Range Interpretation Comments VLDL (test code = VLDL) 12 1 [facility]annSPECIAL VLNFMZJAZ3795-49-30 11:49:005.8[facility]annURINE AND JTRJX2027-23-70 11:49:00Yellow *NA*(04/06/20 6:49 AM)[facility] ABQEH3347-88-22 11:49:00Clear (04/06/20 6:49 AM)[facility] STOOL 2020-04-06 11:49:00 Test Item Value Reference Range Interpretation Comments UA Spec Grav (test code = UA Spec 1.044 1 Grav) [facility] RSVCF6865-10-32 11:49:00 Test Item Value Reference Range Interpretation Comments UA pH (test code = UA pH) 5.0 1 5.0-8.0 [facility] HMNGU3426-16-66 11:49:00Negative *NA*(04/06/20 6:49 AM) [facility] ERCQB5004-67-41 11:49:00Negative (04/06/20 6:49 AM) [facility] AMLJK4130-41-30 11:49:00<1.0[facility] OCJHX0138-27-32 11:49:00Negative (04/06/20 6:49 AM)[facility] YDGRW3926-43-83 11:49:00Negative (04/06/20 6:49 AM)[facility] WHRTX3124-12-29 11:49:008[facility] RWPCY7667-33-50 11:49:007 [facility]annCARDIAC EGVDFYW6465-90-08 11:23:002.43[facility] HermannIMMUNOLOGY 2020-04-06 11:04:00Not Detected (04/06/20 6:04 AM)[facility]annCARDIAC ENZYMES 2020-04-06 08:23:004.26[facility]annCHEM UGFAF4088-35-67 08:23:78307Fsuazjcw HermannCHEM XOUNO6935-56-37 08:23:0010[facility]annCHEM LGIBB7658-11-98 08:23:000.70[facility]annCHEM YQMPG6620-05-79 08:23:30772Udugszuv HermannCHEM IFPAQ0147-19-11 08:23:003.4[facility]annCHEM NQHWW5868-95-25 08:23:43781 [facility]CHE[facility] IRSKO7630-21-02 08:23:0031[facility]annCHEM PANEL 2020-04-06 08:23:008.2[facility]annCHEM WKOLD2847-76-88 08:23:007.1[facility]annCHEM JMKPH1307-41-26 08:23:003.3[facility]annCHEM HAPWF7554-18-99 08:23:0039[facility]annCHEM SKKVL3417-42-72 08:23:0051[facility]annCHEM EXCBK5258-15-67 08:23:0094[facility]annCHEM EHURE5143-12-96 08:23:000.4 [facility]CHE[facility] GTKHO6270-97-52 08:23:006.4[facility]annCHEM PANEL 2020-04-06 08:23:00 Test Item Value Reference Range Interpretation Comments B/C Ratio (test code = B/C Ratio) 14 1 6-25 [facility] FXVWO5622-45-19 08:23:003.8[facility]annCHEM PANEL 2020-04-06 08:23:00 Test Item Value Reference Range Interpretation Comments A/G Ratio (test code = A/G Ratio) 0.9 1 0.7-1.6 [facility] CZVYP9918-64-74 08:23:0085[facility]annHEMATOLOGY 2020-04-06 08:23:009.0[facility] SeupabjQXLWGSCFYB8889-61-26 08:23:004.45[facility] OjrkhzcRHETKRCJVT9106-79-02 08:23:0013.6[facility] ZgxjahaGBFNVKSFWB6260-32-25 08:23:0040.1[facility] PzkipltYYSKZEHLAP6357-60-89 08:23:0090.2[facility] IMIAZKVNMK5425-13-02 08:23:00 Test Item Value Reference Range Interpretation Comments MCH (test code = MCH) 30.6 pg 27.0-31.0 [facility] KzhhjarNPZPEWEGJU2653-02-62 08:23:0033.9[facility]annHEMATOLOGY 2020-04-06 08:23:0014.1[facility] OhwpoepRUMXFOKKMT1987-70-77 08:23:44978Hyqgcrjk OxfsvsnKQIHBXRJUR7307-53-74 08:23:009.3[facility] TqvofpuQXRTPOUWBI3027-11-85 08:23:00 Test Item Value Reference Range Interpretation Comments PT (test code = PT) 13.9 s 12.0-14.7 [facility] EronmqjSLEWIQMXWU4476-40-47 08:23:00 Test Item Value Reference Range Interpretation Comments INR (test code = INR) 1.07 1 0.85-1.17 [facility] YttlwbaRNLGUMJMXZ4242-86-09 08:23:00 Test Item Value Reference Range Interpretation Comments PTT (test code = PTT) 30.4 s 22.9-35.8 [facility] XvwhmrcXWZMPURBLQ4254-17-59 08:23:0066.9[facility]annHEMATOLOGY 2020-04-06 08:23:0020.1[facility] YhbgpajVDAAYEXHBY0599-51-39 08:23:0011.3[facility] XwbbwxvWFPFHBWWOV0298-87-38 08:23:001.1[facility] GjzqiziQSZFJHYCKV3965-26-54 08:23:000.6[facility] AqvnbdhZXXVYEHKUW4867-41-47 08:23:006.0[facility] IPRBYDIZSO4024-69-53 08:23:001.8[facility] NstdzofRFKGCANPSW9514-35-40 08:23:001.0 [facility] SgbxfflCMBEOBBPUL9448-51-28 08:23:000.1[facility]annHEMATOLOGY 2020-04-06 08:23:000.1[facility] HermannMR, ABDOMEN, XOAB5135-57-90 11:51:00FINAL REPORT MRI of the abdomen with and [...] branch intraductal papillary mucinous neoplasms (IPMN). Signed: Juni Mitchell Verified Date/Time: 10/05/2019 11:51:38 Reading Location: [facility] Radio logy Reading Room XK-AAOSJJQKRL6627-71-17 09:33:00 Test Item Value Reference Range Interpretation Comments POC-CREATININE 0.5 mg/dL 0.6-1.[address] [facility] 6720 ([place]ATE[place]) (test [place] code = 1859) [address] POC-EGFR ([place]) 121 mL/min/1.73M2 (test code = 1860) MR, ABDOMEN, [id number] 07:30:00FINAL REPORT TECHNIQUE: MRI of the abdomen [...] tests to assess for cholestasis. Signed: Shaquille Reyeseport Verified Date/Time: 05/29/2019 07:30:48 Reading Location: [facility] Diagnostic Imaging Reading Room - [place] [id number] 1129 WP-ZMDSNGOIXN3816-29-09 09:35:00 Test Item Value Reference Range Interpretation Comments POC-CREATININE 0.6 mg/dL 0.6-1.[address] [facility]-KG 2457 ([facility]) (test [facility] [place] code = 1859) [address] POC-EGFR ([facility]) Insufficie nt clinical data (test code = 1860) to calcul ate estimated GFR
[2021-03-12] MEDS ORDERED: DIPHENHYDRAMINE 25 MG TAB/CAP PO PRN (13:00)
[2021-03-12] MEDS ORDERED: ONDANSETRON 4 MG (ODT) TAB PO PRN (13:00)
[2021-03-12] MEDS ORDERED: ONDANSETRON 4 MG/2 ML VIAL IV PRN (13:00)
[2021-03-12] MEDS ORDERED: ACETAMINOPHEN 325 MG TABLET PO PRN (13:00)
[2021-03-12] MEDS ORDERED: LOPERAMIDE HCL 2 MG CAPSULE PO PRN (13:00)
[2021-03-12] MEDS ORDERED: POLYETHYL GLY 3350 17 GM/DOSE PO PRN (13:00)
[2021-03-12] MEDS: NACHLORIDE 0.45% 1,000 ML IV SCH (13:00)
[2021-03-12 13:13] VITALS: BMI 18.3
[2021-03-12 14:44] LABS: Absolute Lymphocytes (CBC) 1.5 K/uL (0.7-4.9); Hematocrit 43.3 % (36.0-45.0); Lymphocytes % 18.3 % (15.3-44.8); MPV 10.9 fL (7.6-11.3); RBC Red Blood Cell Count 5.03 M/uL (3.86-4.86)
[2021-03-12 14:56] LABS: Protime INR 1.06
[2021-03-12 15:35] LABS: Albumin 3.6 g/dL (3.4-5.0); Bilirubin Direct 0.2 mg/dL (0-0.2); Bilirubin Total 0.5 mg/dL (0.2-1.0); Phosphorus 3.9 mg/dL (2.5-4.9); Potassium 5.2 mmol/L (3.5-5.1); Protein, Total 7.8 g/dL (6.4-8.2)
[2021-03-12 15:37] LABS: Thyroid Stimulating Hormone 5.36 uIU/mL (0.360-3.740)
--- NOTE | 2021-03-12 17:28 | RAD REPORT ---
EXAM DESCRIPTION: CT - Chest Abdomen Pelvis W Cont - 03/12/2021 5:08 pm CLINICAL HISTORY: weakness, unexplained weight loss COMPARISON: Chest Abdomen Pelvis W Cont dated 10/11/2016 TECHNIQUE: Following dynamic enhancement using 100 milliliters nonionic IV contrast, axial imaging o f the chest, abdomen and pelvis was performed. Biphasic technique was utilized through the abdomen. Oral contrast was administered. All CT scans are performed using dose optimization technique as appropriate and may include automated exposure control or mA/KV adjustment according to patient size. FINDINGS: Lungs are clear of mass and infiltrate. No pleural effusion, pleural thickening or pneumot horax. No significant aortic or pulmonary arterial tree finding. Mediastinal and hilar regions show n o mass or abnormal lymphadenopathy. No chest wall mass or axillary lymphadenopathy. Heart size is nor mal overall. There is left atrial enlargement with left atrial appendage closure device in place. The liver, spleen and pancreas show no suspicious findings. Pancreatic atrophy is present. Gallbladde r is absent. Intrahepatic and extrahepatic biliary tree dilatation are present not clearly different from 2017. This is most likely the reservoir effect that can occur after a cholecystectomy. Duct ston es can be occult. There is no suspicion for duodenal or pancreatic mass. Symmetric renal function is seen with no mass or hydronephrosis. No adrenal abnormalities. Renal cysts are present. Areas of left renal cortical thinning present progressive from 2017. No active parenchymal process seen. Fullness of the right renal hilum is not clearly different from comparison. Calcifications of the right-side o f the abdomen or in close proximity to the ureter but are not believed to be within the ureter. Patie nt has numerous pelvic floor phleboliths. Renal function does not appear to be delayed or asymmetric. Air within the urinary bladder is presumed to be from catheterization procedure. This can be correlat ed with procedure history. Gastric surgical changes are present. No acute gastric finding seen. No dilated small bowel loops. Si gmoid colon is tortuous and redundant. There is a large amount of stool filling and distending the co walt from cecum to proximal sigmoid colon. No obstructing mass, wall thickening or acute colon process identifiable. No acute GI findings seen. Prominent disc and bony degenerative changes are present. Left femur surgical hardware in place. Old fracture changes are present in the bilateral ischium and right pubic symphysis region. Old left sacr al ala fracture present. Patient has multiple thoracolumbar compression fracture deformities. Findin gs have progressed in L2 and L5 since 2017. No clearly pathologic or acute compression fractures seen . No significant vascular findings. IMPRESSION: No occult malignancy. No acute or emergent findings in the chest, abdomen or pelvis. Intrahepatic and extrahepatic biliary tree dilatation are not clearly different from 2017 and believe d to be baseline. Duct stones can be occult but there is no finding to suspect pancreatic or duodenal mass. Air within the urinary bladder is presumed to be from catheterization. This can be correlated with pr ocedure history. Large amount of stool is present distending the colon from cecum to proximal sigmoid colon.
[2021-03-12] MEDS ORDERED: HOME MED 1 EA UNK (Paroxetine Hcl [Paroxetine Hcl] 20 MG Tablet) PO SCH (21:00)
[2021-03-12] MEDS ORDERED: HOME MED 1 EA UNK (Gabapentin [Gabapentin] 600 MG Tablet) PO SCH (21:00)
[2021-03-12] MEDS ORDERED: MINERAL OIL ENEMA 135 ML BTL PR PRN (21:17)
[2021-03-12] MEDS: GABAPENTIN 100 MG CAP PO SCH (21:30)
[2021-03-12] MEDS: ATORVASTATIN 80 MG TAB PO SCH (21:31)
[2021-03-12] MEDS: AMIODARONE HCL 200 MG TAB PO SCH (21:31)
[2021-03-12] MEDS: METOPROLOL TAR 25 MG TAB PO SCH (21:31)
[2021-03-12] MEDS: levETIRAcetam 500 MG TAB PO SCH (21:32)
[2021-03-12] MEDS: SPIRONOLACTONE 25 MG TABLET PO SCH (21:32)
[2021-03-12] MEDS: MEMANTINE HCL 10 MG TABLET PO SCH (21:32)
[2021-03-12] MEDS: PARoxetine HCL 10 MG TAB PO SCH (21:32)
[2021-03-13 03:02] LABS: Urine Appearance CLEAR (Clear); Urine Bilirubin NEGATIVE (Negative); Urine Blood NEGATIVE (Negative); Urine Color YELLOW (Yellow); Urine Glucose NEGATIVE (Negative); Urine Protein NEGATIVE (Negative); Urine Urobilinogen 0.2 mg/dL (0.2-1.0)
[2021-03-13 03:09] LABS: Urine Microscopic Reflex ORDER UMIC
[2021-03-13 03:34] LABS: Urine Bacteria LOADED /HPF (<20); Urine Mucus 1+ /HPF (NONE SEEN); Urine RBC <5 /HPF (NONE SEEN)
[2021-03-13] MEDS ORDERED: THYROID 30 MG PO SCH (06:00)
[2021-03-13] MEDS: THYROID 30 MG TAB PO SCH (06:04)
[2021-03-13 07:19] LABS: Absolute Lymphocytes (CBC) 1.9 K/uL (0.7-4.9); Basophils % 1.3 % (0-1.3); Hematocrit 39.9 % (36.0-45.0); MPV 10.9 fL (7.6-11.3); RBC Red Blood Cell Count 4.63 M/uL (3.86-4.86)
[2021-03-13 07:38] LABS: Protime INR 1.11
[2021-03-13 07:47] LABS: Magnesium 2.1 mg/dL (1.8-2.4); Potassium 4.5 mmol/L (3.5-5.1)
[2021-03-13] MEDS ORDERED: HOME MED 1 EA UNK (Cholecalciferol (Vitamin D3) [Vitamin D3] 1,000 UNIT Capsule) PO SCH (09:00)
[2021-03-13] MEDS: NACHLORIDE 0.45% 1,000 ML IV SCH (09:00)
[2021-03-13] MEDS: TROSPIUM CHLORIDE 20 MG PO SCH (09:00)
[2021-03-13] MEDS: VITAMIN D 1000 UNIT TAB PO SCH (09:52)
[2021-03-13] MEDS: CLOPIDOGREL 75 MG TABLET PO SCH (09:52)
[2021-03-13] MEDS: AMIODARONE HCL 200 MG TAB PO SCH ×2 (09:52→21:38)
[2021-03-13] MEDS: METOPROLOL TAR 25 MG TAB PO SCH ×2 (09:52→21:00)
[2021-03-13] MEDS: levETIRAcetam 500 MG TAB PO SCH ×2 (09:53→21:26)
[2021-03-13] MEDS: ASPIRIN 81 MG CHEWABLE TABLET PO SCH (09:53)
[2021-03-13] MEDS: MEMANTINE HCL 10 MG TABLET PO SCH ×2 (09:53→21:25)
[2021-03-13] MEDS: MINERAL OIL ENEMA 135 ML BTL PR PRN ×2 (09:56→21:39)
[2021-03-13] MEDS: ENSURE ENLIVE 237 ML CAN PO SCH ×2 (14:00→21:00)
[2021-03-13 20:52] VITALS: O2SAT 94
[2021-03-13] MEDS: ATORVASTATIN 80 MG TAB PO SCH (21:24)
[2021-03-13] MEDS: GABAPENTIN 100 MG CAP PO SCH (21:25)
[2021-03-13] MEDS: PARoxetine HCL 10 MG TAB PO SCH (21:25)
[2021-03-13] MEDS: SPIRONOLACTONE 25 MG TABLET PO SCH (21:26)
--- NOTE | 2021-03-13 22:00 | P.PN ---
Subjective Date of Service: 03/13/21 Chief Complaint: WEAK, NOT EATING MS. BAUMANN HAS MANY MEDICAL ISSUES, SHE CAME TO OFFICE WITH DAUGHTER, LOSING ABOUT 13 LBS IN3 MONTHS, NOT EATING WELL, SLEEPING A LOT, SHE HAS MEMORY LOSS FROM DEMENTIA, SHE ALSO HAS A FIB, FREQUENT FALLS, CHF ETC. SHE ON CT SCAN SHOWS SEVERE CONSTIPATION BUT NO CANCERS. SHE HAS NOT HAD BM SINCE ENEMA. SHE WILL STAY OVERNIGHT UNTIL GOOD BM. DISCUSSED WITH DAUGHTER. Physical Examination - Vital Signs Temperature: 98.1 F Blood Pressure: 119/56 Pulse: 54 Respirations: 16 Pulse Ox (%): 100 - Physical Exam General: Oriented x2, Cachectic, Mild distress HEENT: Atraumatic, PERRLA, EOMI Neck: Supple, JVD not distended Respiratory: Clear to auscultation bilaterally, Normal air movement Cardiovascular: Regular rate/rhythm, Normal S1 S2 Gastrointestinal: Normal bowel sounds, No tenderness Musculoskeletal: No tenderness Integumentary: No rashes Neurological: Normal speech, Normal tone, Normal affect Lymphatics: No axilla or inguinal lymphadenopathy - Studies Laboratory Data (last 24 hrs) 03/13/21 06:58: Sodium 137, Potassium 4.5, BUN 19 H, Creatinine 1.31 H, Glucose 108 H, Magnesium 2.1 03/13/21 06:43: PT 12.8 H, INR 1.11 03/13/21 06:43: WBC 6.60 D, Hgb 12.9, Hct 39.9, Plt Count 193 Microbiology Data (last 24 hrs): 03/12/21 17:34 Blood - Blood Anaerobic Blood Culture - Final Medications List Reviewed: Yes Assessment And Plan - Current Problems (Diagnosis) (1) Weight loss Current Visit: Yes Status: Acute Plan: THIS IS FROM GRADUAL DECONDITIONING OVER A YEAR WITH DEMENTIA. WILL ADD REMERON ON OUTPATIENT BASIS TO SEE IF IT HELPS. (2) Alzheimer disease Current Visit: Yes Status: Chronic Plan: WORSE GRADUALLY. (3) Constipated Current Visit: Yes Status: Acute Plan: ENEMA PRN. (4) Orthostatic hypotension Current Visit: Yes Status: Acute Plan: STOP SPIRONOLACTONE. THIS MAY IMPROVE. (5) A-fib Current Visit: No Status: Chronic Plan: SHE HAS HAD WATCHMAN PROCEDURE. SHE IS HIGH RISK FOR ANTICOAGUALTION SHE FALLS A LOT. Qualifiers:
[2021-03-14] MEDS: THYROID 30 MG TAB PO SCH (05:31)
[2021-03-14] MEDS: NACHLORIDE 0.45% 1,000 ML IV SCH (05:32)
[2021-03-14] MEDS: TROSPIUM CHLORIDE 20 MG PO SCH (09:00)
[2021-03-14] MEDS: ENSURE ENLIVE 237 ML CAN PO SCH (09:00)
[2021-03-14] MEDS: METOPROLOL TAR 25 MG TAB PO SCH (09:00)
[2021-03-14] MEDS: levETIRAcetam 500 MG TAB PO SCH (09:51)
[2021-03-14] MEDS: MEMANTINE HCL 10 MG TABLET PO SCH (09:51)
[2021-03-14] MEDS: CLOPIDOGREL 75 MG TABLET PO SCH (09:51)
[2021-03-14] MEDS: ASPIRIN 81 MG CHEWABLE TABLET PO SCH (09:52)
[2021-03-14] MEDS: AMIODARONE HCL 200 MG TAB PO SCH (09:52)
[2021-03-14] MEDS: VITAMIN D 1000 UNIT TAB PO SCH (09:55)
[2021-03-14 10:13] LABS: Absolute Lymphocytes (CBC) 1.6 K/uL (0.7-4.9); Basophils % 0.6 % (0-1.3); Hematocrit 42.1 % (36.0-45.0); Lymphocytes % 16.9 % (15.3-44.8); MPV 10.9 fL (7.6-11.3); RBC Red Blood Cell Count 4.86 M/uL (3.86-4.86)
[2021-03-14 10:29] LABS: Magnesium 2.1 mg/dL (1.8-2.4); Potassium 5.2 mmol/L (3.5-5.1)
[2021-03-14 12:19] VITALS: BP 132/60; TEMP 98.2
--- NOTE | 2021-03-14 13:41 | P.DS ---
Admission Date: 03/12/21 Discharge Date: 03/14/21 Disposition: ROUTINE DISCHARGE Discharge Condition: FAIR Reason for Admission: WEAK, NOT EATING - Problems (1) Weight loss Current Visit: Yes Status: Acute (2) Alzheimer disease Current Visit: Yes Status: Chronic (3) Constipated Current Visit: Yes Status: Acute (4) Orthostatic hypotension Current Visit: Yes Status: Acute (5) A-fib Current Visit: No Status: Chronic Qualifiers: Hospital Course: [place] IS DOING GOOD. SHE HAS HAD LOW BP WITH ORTHOSTASIS. SHE DOES NOT EAT AND DRINK WELL SHE HAS DEMENTIA. I HAD TO GIVE HER MULTIPLE ENEMAS FOR SEVERE CONSTIPATION. SHE STAYED ONE MORE DAY SHE DID NOT HAVE BM WITH TWO ENEMAS. NOW WE WALKED HER, SHE DID NOT FALL, SHE DID NOT HAVE LOW BP AND SHE IS STABLE TO GO HOME. Vital Signs/Physical Exam: Temp Pulse Resp BP Pulse Ox 98.2 F 63 16 132/60 98 03/14/21 12:00 03/14/21 12:00 03/14/21 12:00 03/14/21 12:00 03/14/21 12:00 Laboratory Data at Discharge: WBC 9.30 K/uL (4.3-10.9) D 03/14/21 09:40 Hgb 13.6 g/dL (12.0-15.0) 03/14/21 09:40 Hct 42.1 % (36.0-45.0) 03/14/21 09:40 Plt Count 234 K/uL (152-406) D 03/14/21 09:40 PT 12.8 SECONDS (9.5-12.5) H 03/13/21 06:43 INR 1.11 03/13/21 06:43 APTT 23.4 SECONDS (24.3-36.9) L 03/12/21 14:17 Sodium 139 mmol/L (136-145) 03/14/21 09:40 Potassium 5.2 mmol/L (3.5-5.1) H 03/14/21 09:40 BUN 11 mg/dL (7-18) 03/14/21 09:40 Creatinine 1.07 mg/dL (0.55-1.3) 03/14/21 09:40 Glucose 90 mg/dL (74-106) 03/14/21 09:40 Phosphorus 3.9 mg/dL (2.5-4.9) 03/12/21 14:17 Magnesium 2.1 mg/dL (1.8-2.4) 03/14/21 09:40 Total Bilirubin 0.5 mg/dL (0.2-1.0) 03/12/21 14:17 AST 204 U/L (15-37) H 03/12/21 14:17 ALT 186 U/L (12-78) H 03/12/21 14:17 Alkaline Phosphatase 140 U/L (45-117) H 03/12/21 14:17 Home Medications: Aspirin Chewable [Aspirin Chewable*] 81 mg PO DAILY 04/11/20 Atorvastatin Calcium [Lipitor] 80 mg PO BEDTIME #30 tab 04/18/20 Cholecalciferol (Vitamin D3) [Vitamin D3] 1,000 unit PO DAILY #30 04/18/20 Metoprolol Tartrate [Lopressor*] 12.5 mg PO BID #30 tab 04/18/20 PARoxetine HCL [Paroxetine HCl] 20 mg PO BEDTIME #30 04/18/20 Amiodarone HCl [Cordarone*] 200 mg PO BID 12/24/20 Clopidogrel Bisulfate [Plavix] 75 mg PO DAILY 12/24/20 Famotidine [Pepcid*] 40 mg PO DAILY 12/24/20 Folic Acid/Multivit-Min/Lutein [Multi-Vitamin Gummies] 1 tab.chew DAILY 12/24/20 Gabapentin 100 mg PO BEDTIME 12/24/20 Memantine HCl 10 mg PO BID 12/24/20 Spironolactone 50 mg PO BEDTIME 12/24/20 Thyroid 30 mg PO [id number] 12/24/20 Trospium Chloride [Sanctura] 20 mg PO DAILY 12/24/20 levETIRAcetam [Keppra*] 500 mg PO BID #60 tab 01/06/21 Mirtazapine 7.5 mg PO DAILY AFTER SUPPER #90 tablet 03/13/21 New Medications: Mirtazapine 7.5 mg PO DAILY AFTER SUPPER #90 tablet Followup: Deo Echeverria MD [ACTIVE - CAN ADMIT] -
[2021-03-17 14:57] LABS: Vitamin D 1,25-Dihydroxy Total 55 pg/mL (18-72); Vitamin D,1,25-OH2, D2 <8 pg/mL
== END 2021-03-14 13:42 | disposition home or self-care (01) ==
LOC: 2ND 11:16
PROVIDERS: ADMIT Internal Medicine; ATTEND Internal Medicine
DX: I95.1 Orthostatic hypotension (principal); R63.4 Abnormal weight loss; G30.9 Alzheimer's disease, unspecified; K59.00 Constipation, unspecified; I48.91 Unspecified atrial fibrillation; F02.80 Dementia in other diseases classified elsewhere, unspecified severity, without behavioral disturbance, psychotic disturbance, mood disturbance, and anxiety; I10 Essential (primary) hypertension; F41.9 Anxiety disorder, unspecified; I69.354 Hemiplegia and hemiparesis following cerebral infarction affecting left non-dominant side; M81.0 Age-related osteoporosis without current pathological fracture; E86.0 Dehydration
CPT/HCPCS: 87040 ×2; 87088; 85025 ×3; 87086; 80048 ×3; 36415 ×3; 83735 ×3; 84100; 85610 ×2; 80076; 85730; 82652; 84443; 87077; 87186; 83036; 82570; 84439; 82607; 82043; 71260; 74177; 97112; 97116; 97161; 97530 ×4; Q9967; G0379; G0378 ×3; 81003; 81015

== ENCOUNTER 2021-06-15 22:08 | Emergency (ER) | payer OTHER ==
[2021-06-15 23:17] LABS: Protime INR 1.23
[2021-06-15 23:22] LABS: Absolute Lymphocytes (CBC) 1.1 K/uL (0.7-4.9); Basophils % 0.9 % (0-1.3); Hematocrit 36.4 % (36.0-45.0); Lymphocytes % 18.5 % (15.3-44.8); MPV 10.3 fL (7.6-11.3); RBC Red Blood Cell Count 3.92 M/uL (3.86-4.86)
[2021-06-15 23:34] LABS: ALT/SGPT 122 U/L (12-78); AST/SGOT 162 U/L (15-37); Albumin 2.9 g/dL (3.4-5.0); Alkaline Phosphatase 93 U/L (45-117); BUN Blood Urea Nitrogen 20 mg/dL (7-18); Bicarbonate 26 mmol/L (21-32); Bilirubin Direct 0.2 mg/dL (0-0.2); Bilirubin Total 0.5 mg/dL (0.2-1.0); Glucose Level 251 mg/dL (74-106); NT PRO-BNP 1115 pg/mL (<450); Sodium Level 147 mmol/L (136-145); Troponin (Emerg Dept Use Only) < 0.02 ng/mL (0.0-0.045)
[2021-06-15 23:36] LABS: Magnesium 1.4 mg/dL (1.8-2.4)
--- NOTE | 2021-06-15 23:40 | EDPHYS ---
Physician Documentation [facility] Name: Sharla Tesfaye Age: 76 yrs Sex: Female : 1945 Arrival Date: 06/15/2021 Time: 22:11 Bed 14 Private MD: ED Physician Alok Oneill HPI: 06/15 23:03 This 76 yrs old Female presents to ER via Wheelchair with complaints of Fall ma2 Injury, Head Injury Without LOC-Adult. 23:03 Details of fall: The patient fell from an upright position. Onset: The symptoms/episode ma2 began/occurred suddenly, 1 hour(s) ago. Severity of symptoms: in the emergency department the symptoms have resolved. The patient has not experienced similar symptoms in the past. back. Has headache. Noticed this time. Historical: - Allergies: 23:24 Amoxicillin; df1 23:24 annaprox; df1 23:24 Codeine; df1 23:24 Demerol; df1 23:24 Etodolac; df1 23:24 Ibuprofen; df1 - Home Meds: 23:31 amiodarone 200 mg Oral tab 1 tab 2 times per day [Active]; aspirin 81 mg Oral chew 1 df1 tab once daily [Active]; atorvastatin 80 mg Oral tab 1 tab once daily [Active]; bisoprolol fumarate 5 mg Oral tab 1 tab once daily [Active]; calcium citrate 600 mg Oral gran [Active]; famotidine 40 mg Oral tab 1 tab once daily [Active]; Fish Oil 1,000 mg Oral cap [Active]; d3 [Active]; levetiracetam 500 mg Oral tab 1 tab 2 times per day [Active]; memantine 10 mg Oral tab 1 tab 2 times per day [Active]; metoprolol tartrate 25 mg Oral tab 0.5 tab 2 times per day [Active]; pantoprazole 40 mg Oral TbEC 1 tab once daily [Active]; paroxetine HCl 20 mg Oral tab 1 tab once daily [Active]; Plavix 75 mg Oral tab 1 tab once daily [Active]; sotalol 80 mg Oral tab 2 tabs daily [Active]; spironolactone 25 mg Oral tab 1 tab once daily [Active]; trospium 20 mg Oral tab 1 tab [Active]; vitamin b12 [Active]; Vitamin C 1,000 mg Oral tab twice a day [Active]; 23:42 gabapentin 100 mg Oral cap nightly [Active]; Xarelto 20 mg Oral tab 1 tab once daily df1 [Active]; - PMHx: 23:31 Atrial Fib; Dementia; High Cholesterol; Hypertension; CVA; df1 - PSHx: 23:31 gastric bypass; left femur repair; right knee replacement; gastric bypass; watchmen df1 implant; Tonsillectomy; Total abdominal hysterectomy; Appendectomy; Cholecystectomy; - Immunization history:: Adult Immunizations up to date, Pneumococcal vaccine is up to date, Flu vaccine is up to date. - Social history:: Patient/guardian denies using alcohol, street drugs, The patient lives with family, Smoking status: Patient denies any tobacco usage or history of. - Immunization history: Last tetanus immunization: - up to date. - Family history:: not pertinent. ROS: 23:03 Constitutional: Negative for fever, chills, and weight loss. ma2 23:03 All other systems are negative. Exam: 23:03 Constitutional: This is a well developed, well nourished patient who is awake, alert, ma2 and in no acute distress. Head/Face: Normocephalic, atraumatic. Eyes: Pupils equal round and reactive to light, extra-ocular motions intact. Lids and lashes normal. Conjunctiva and sclera are non-icteric and not injected. Cornea within normal limits. Periorbital areas with no swelling, redness, or edema. ENT: Nares patent. No nasal discharge, no septal abnormalities noted. Tympanic membranes are normal and external auditory canals are clear. Oropharynx with no redness, swelling, or masses, exudates, or evidence of obstruction, uvula midline. Mucous membranes moist. Neck: Trachea midline, no thyromegaly or masses palpated, and no cervical lymphadenopathy. Supple, full range of motion without nuchal rigidity, or vertebral point tenderness. No Meningismus. Chest/axilla: Normal chest wall appearance and motion. Nontender with no deformity. No lesions are appreciated. Cardiovascular: Regular rate and rhythm with a normal S1 and S2. No gallops, murmurs, or rubs. Normal PMI, no JVD. No pulse deficits. Respiratory: Lungs have equal breath sounds bilaterally, clear to auscultation and percussion. No rales, rhonchi or wheezes noted. No increased work of breathing, no retractions or nasal flaring. Abdomen/GI: Soft, non-tender, with normal bowel sounds. No distension or tympany. No guarding or rebound. No evidence of tenderness throughout. Skin: Warm, dry with normal turgor. Normal color with no rashes, no lesions, and no evidence of cellulitis. MS/ Extremity: Pulses equal, no cyanosis. Neurovascular intact. Full, normal range of motion. Neuro: Awake and alert, GCS 15, oriented to person, place, time, and situation. Cranial nerves II-XII grossly intact. Motor strength 5/5 in all extremities. Sensory grossly intact. Cerebellar exam normal. Normal gait. Vital Signs: 22:26 BP 159 / 66; Pulse 82; Resp 18; Temp 97.8; Pulse Ox 100% on R/A; Weight 51.71 kg; wg Height 5 ft. 4 in. (162.56 cm); Pain 5/10; 23:52 BP 142 / 69; Pulse 59; Resp 18; Pulse Ox 100% on R/A; df1 22:26 Body Mass Index 19.57 (51.71 kg, 162.56 cm) Duane Coma Score: 22:26 Eye Response: spontaneous(4). Verbal Response: oriented(5). Motor Response: obeys commands(6). Total: 15. Trauma Score (Adult): 22:26 Eye Response: spontaneous(1); Verbal Response: oriented(1); Motor Response: obeys commands(2); Systolic BP: > 89 mm Hg(4); Respiratory Rate: 10 to 29 per min(4); Duane Score: 15; Trauma Score: 12 MDM: 22:26 Patient medically screened. [facility] 23:03 Differential diagnosis: abrasion, closed head injury, contusion, fracture, sprain, ma2 strain. 23:39 Data reviewed: vital signs, nurses notes. Counseling: I had a detailed discussion with maDaysi the patient and/or guardian regarding: the historical points, exam findings, and any diagnostic results supporting the discharge/admit diagnosis, the presence of at least one elevated blood pressure reading (>120/80) during this emergency department visit, the need for outpatient follow up. Response to treatment: the patient's symptoms have markedly improved after treatment, patient is well hydrated. Patient also have hypokalemia, CT head C-spine within normal limits. There is an old rib fracture, however patient does not have any rib pain at this point.. 06/15 22:26 Order name: Basic Metabolic Panel [facility] 06/15 22:26 Order name: CBC with Diff; Complete Time: 23:27 [facility] 06/15 22:26 Order name: LFT's; Complete Time: 23:38 [facility] 06/15 22:26 Order name: Magnesium; Complete Time: 23:38 [facility] 06/15 22:26 Order name: NT PRO-BNP; Complete Time: 23:38 [facility] 06/15 22:26 Order name: PT-INR; Complete Time: 23:27 [facility] 06/15 22:20 Order name: CT Head C Spine [facility] 06/15 22:26 Order name: Troponin (emerg Dept Use Only); Complete Time: 23:38 [facility] 06/15 22:26 Order name: XRAY Chest (1 view) [facility] 06/15 22:26 Order name: EKG; Complete Time: 22:28 [facility] 06/15 22:26 Order name: Cardiac monitoring; Complete Time: 22:29 [facility] 06/15 22:29 Order name: Basic Metabolic Panel; Complete Time: 23:38 [facility] 06/15 22:26 Order name: EKG - Nurse/Tech; Complete Time: 23:00 [facility] 06/15 22:26 Order name: IV Saline Lock; Complete Time: 22:29 [facility] 06/15 22:26 Order name: Labs collected and sent; Complete Time: 22:29 [facility] 06/15 22:26 Order name: O2 Per Protocol; Complete Time: 22:29 [facility] 06/15 22:26 Order name: O2 Sat Monitoring; Complete Time: 22:29 [facility] Administered Medications: 23:48 CANCELLED (Other Intervention Used): Potassium Chloride Liquid 40 mEq PO once em 23:52 Drug: Potassium Effervescent Tablet 50 mEq Route: PO; df1 06/16 00:23 Follow up: Response: No adverse reaction df1 Disposition Summary: 06/15/21 23:40 Discharge Ordered Location: Home ma2 Condition: Stable ma2 Diagnosis - Fall on same level, unspecified ma2 - Hypokalemia ma2 Followup: ma2 - With: Private Physician - When: Tomorrow - Reason: Continuance of care Discharge Instructions: - Discharge Summary Sheet ma2 - Potassium Content of Foods ma2 - Fall Prevention in the Home, Adult, [id number] ma2 - Hypokalemia ma2 Forms: - Medication Reconciliation Form ma2 - Thank You Letter ma2 - Antibiotic Education ma2 - Prescription Opioid Use ma2 Prescriptions: - Diclofenac Sodium 75 mg Oral Tablet Sustained Release - take 1 tablet by ORAL route 2 times per day; 30 tablet; Refills: 0, Product ma2 Selection Permitted - Potassium Chloride 10 mEq Oral Tablet - take 1 tablet by ORAL route every 12 hours; 30 tablet; Refills: 0, Product ma2 Selection Permitted Signatures: Dispatcher [employer] Larry Chen RN RN em Alok Oneill MD MD ma2 Amy Jenkins df1 Corrections: (The following items were deleted from the chart) 06/15 23:41 23:31 PSHx: left knee replacement; df1 df1 23:48 23:38 Potassium Chloride Liquid 40 mEq PO once ordered. ga2 em
--- NOTE | 2021-06-15 23:40 | ER ---
Nurse's Notes [facility] Name: Sharla Tesfaye Age: 76 yrs Sex: Female : 1945 Arrival Date: 06/15/2021 Time: 22:11 Bed 14 Private MD: Diagnosis: Fall on same level, unspecified;Hypokalemia Presentation: 06/15 22:26 Chief complaint: Patient states: Pt states she was getting out of the car around 2100 wg and lost her footing and fell. Pt has gomez hematoma to the top/rear of her head and states she is on Plavix and ASA with a hx of brain bleeds in the past. Pt denies neck or back pain. Pt states she is having some discomfort in her right hip but unsure if it is from a previous fall/injury. Care prior to arrival: None. Mechanism of Injury: Fall from standing position. 22:26 Acuity: JENNIFER 3 wg 22:26 Method Of Arrival: Wheelchair wg 23:14 Trauma event details: Injury occurred in the county of Injury occurred: at home. Injury df1 occurred: June 15, 2021. Activity prior to arrival: None. 23:21 Coronavirus screen: Vaccine status: Patient reports receiving the 2nd dose of the covid df1 vaccine. Client denies travel out of the [place] in the last 14 days. The client reports previous COVID testing was negative. Ebola Screen: Patient negative for fever greater than or equal to 101.5 degrees Fahrenheit, and additional compatible Ebola Virus Disease symptoms Patient denies exposure to infectious person. Patient denies travel to an Ebola-affected area in the 21 days before illness onset. Initial Sepsis Screen: Does the patient meet any 2 criteria?. Initial Sepsis Screen: Does the patient meet any 2 criteria? No. Patient's initial sepsis screen is negative. Does the patient have a suspected source of infection? No. Patient's initial sepsis screen is negative. Risk Assessment: Do you want to hurt yourself or someone else? Patient reports no desire to harm self or others. Onset of symptoms was June 15, 2021. Trauma Activation: Alert Physician: ED Physician; Name: ; Notified At: ; Arrived At: Physician: General Surgeon; Name: ; Notified At: ; Arrived At: Physician: Radiology; Name: ; Notified At: ; Arrived At: Physician: Respiratory; Name: ; Notified At: ; Arrived At: Physician: Lab; Name: ; Notified At: ; Arrived At: Historical: - Allergies: 23:24 Amoxicillin; df1 23:24 annaprox; df1 23:24 Codeine; df1 23:24 Demerol; df1 23:24 Etodolac; df1 23:24 Ibuprofen; df1 - Home Meds: 23:31 amiodarone 200 mg Oral tab 1 tab 2 times per day [Active]; aspirin 81 mg Oral chew 1 df1 tab once daily [Active]; atorvastatin 80 mg Oral tab 1 tab once daily [Active]; bisoprolol fumarate 5 mg Oral tab 1 tab once daily [Active]; calcium citrate 600 mg Oral gran [Active]; famotidine 40 mg Oral tab 1 tab once daily [Active]; Fish Oil 1,000 mg Oral cap [Active]; d3 [Active]; levetiracetam 500 mg Oral tab 1 tab 2 times per day [Active]; memantine 10 mg Oral tab 1 tab 2 times per day [Active]; metoprolol tartrate 25 mg Oral tab 0.5 tab 2 times per day [Active]; pantoprazole 40 mg Oral TbEC 1 tab once daily [Active]; paroxetine HCl 20 mg Oral tab 1 tab once daily [Active]; Plavix 75 mg Oral tab 1 tab once daily [Active]; sotalol 80 mg Oral tab 2 tabs daily [Active]; spironolactone 25 mg Oral tab 1 tab once daily [Active]; trospium 20 mg Oral tab 1 tab [Active]; vitamin b12 [Active]; Vitamin C 1,000 mg Oral tab twice a day [Active]; 23:42 gabapentin 100 mg Oral cap nightly [Active]; Xarelto 20 mg Oral tab 1 tab once daily df1 [Active]; - PMHx: 23:31 Atrial Fib; Dementia; High Cholesterol; Hypertension; CVA; df1 - PSHx: 23:31 gastric bypass; left femur repair; right knee replacement; gastric bypass; watchmen df1 implant; Tonsillectomy; Total abdominal hysterectomy; Appendectomy; Cholecystectomy; - Immunization history:: Adult Immunizations up to date, Pneumococcal vaccine is up to date, Flu vaccine is up to date. - Social history:: Patient/guardian denies using alcohol, street drugs, The patient lives with family, Smoking status: Patient denies any tobacco usage or history of. - Immunization history: Last tetanus immunization: - up to date. - Family history:: not pertinent. Screenin:26 Abuse screen: Denies threats or abuse. Denies injuries from another. wg 23:20 Tuberculosis screening: No symptoms or risk factors identified. df1 23:23 Nutritional screening: No deficits noted. Fall Risk Fall in past 12 months (25 points). df1 Secondary diagnosis (15 points) dementia, TIA, impaired mobility, IV access (20 points). Ambulatory Aid- Crutches/Cane/Walker (15 pts). Gait- Weak (10 pts.). Mental Status- Oriented to own ability (0 pts). Primary Survey: 22:26 NO uncontrolled hemorrhage observed. A: The patient is alert. Airway: patent. wg Breathing/Chest: Respiratory pattern: regular, Respiratory effort: spontaneous, unlabored, Chest inspection: symmetrical rise and fall of the chest. Circulation: Pulses: palpable right dorsalis pedis artery and left dorsalis pedis artery. Skin color: pink. Disability Alert. Exposure/Environment: All clothing and personal items were removed. There is no evidence of uncontrolled external bleeding. 23:18 Reassessment Breathing/Chest Respiratory pattern Regular Respiratory effort Spontaneous df1 Unlabored Breath sounds Clear Chest inspection Symmetrical. Secondary Survey: 23:18 HEENT: Head Other Golf ball sized lump to back of left side of head. No bleeding or df1 bruising at this time. Pt A\T\Ox3. Gastrointestinal: No deficits noted. : No deficits noted. Musculoskeletal: No deficits noted. 2+ edema to BLE, baseline. Injury Description: Head injury sustained to left side of the back of head is closed, did not have loss of consciousness, was sustained 1-2 hours ago. Assessment: 22:26 General: Appears uncomfortable, slender, well groomed, Behavior is calm, cooperative, wg appropriate for age. Pain: Complains of pain in Top of head and right hip. Pain currently is 5 out of 10 on a pain scale. 23:15 Neuro: No deficits noted. EENT: No deficits noted. Cardiovascular: No deficits noted. df1 Respiratory: No deficits noted. GI: No deficits noted. : No deficits noted. Derm: No deficits noted. Musculoskeletal: Reports Pt states pain to left hip 1/10 when in certain positions. Refusing any pain medication.. No deformity or shortening noted. Vital Signs: 22:26 BP 159 / 66; Pulse 82; Resp 18; Temp 97.8; Pulse Ox 100% on R/A; Weight 51.71 kg; wg Height 5 ft. 4 in. (162.56 cm); Pain 5/10; 23:52 BP 142 / 69; Pulse 59; Resp 18; Pulse Ox 100% on R/A; df1 22:26 Body Mass Index 19.57 (51.71 kg, 162.56 cm) wg Duane Coma Score: 22:26 Eye Response: spontaneous(4). Verbal Response: oriented(5). Motor Response: obeys commands(6). Total: 15. Trauma Score (Adult): 22:26 Eye Response: spontaneous(1); Verbal Response: oriented(1); Motor Response: obeys commands(2); Systolic BP: > 89 mm Hg(4); Respiratory Rate: 10 to 29 per min(4); Duane Score: 15; Trauma Score: 12 ED Course: 22:11 Patient arrived in ED. bp1 22:21 Alfredo Chambers PA is PHCP. jmm 22:21 Alok Oneill MD is Attending Physician. jm 22:25 mAy Jenkins is Primary Nurse. df1 22:26 Patient maintains SpO2 saturation greater than 95% on room air. wg 22:26 Patient has correct armband on for positive identification. Placed in gown. Bed in low wg position. Side rails up X2. Adult w/ patient. patient monitor on. Pulse ox on. NIBP on. 22:28 Triage completed. wg 22:29 XRAY Chest (1 view) Sent. df1 22:38 CT Head C Spine In Process Unspecified. EDMS 22:41 XRAY Chest (1 view) In Process Unspecified. EDMS 23:00 Inserted saline lock: 22 gauge in right forearm, using aseptic technique. Blood ds4 collected. 23:13 Basic Metabolic Panel Sent. df1 23:13 Basic Metabolic Panel Sent. df1 23:13 LFT's Sent. df1 23:13 Magnesium Sent. df1 23:13 CBC with Diff Sent. df1 23:13 NT PRO-BNP Sent. df1 23:13 PT-INR Sent. df1 23:13 Troponin (emerg Dept Use Only) Sent. df1 23:20 No provider procedures requiring assistance completed. df1 23:41 Arm band placed on right wrist. df1 23:44 Thermoregulation: warm blanket given to patient. df1 06/16 00:38 IV discontinued, intact. df1 Administered Medications: 06/15 23:48 CANCELLED (Other Intervention Used): Potassium Chloride Liquid 40 mEq PO once em 23:52 Drug: Potassium Effervescent Tablet 50 mEq Route: PO; df1 06/16 00:23 Follow up: Response: No adverse reaction df1 Outcome: 06/15 23:40 Discharge ordered by . ma2 06/16 00:38 Discharged to home via wheelchair. df1 Condition: stable Discharge instructions given to patient, family, Instructed on discharge instructions, follow up and referral plans. medication usage, Demonstrated understanding of instructions, follow-up care, medications, Prescriptions given X 1. 00:39 Patient left the ED. df1 Signatures: Dispatcher [employer] EDMS Alfredo Chambers PA PA jmm Swanson, Donovan ds4 Alok Oneill MD MD ma2 Saray Chaidez Liam, Amy Parekh df1 Larry Mack RN em Corrections: (The following items were deleted from the chart) 06/15 23:41 23:31 PSHx: left knee replacement; df1 df1
[2021-06-16] MEDS ORDERED: POTASSIUM 25 MEQ EFFERV TAB ONE (00:14)
--- NOTE | 2021-06-16 08:22 | RAD REPORT ---
EXAM DESCRIPTION: RAD - Chest Single View - 06/15/2021 10:42 pm CLINICAL HISTORY: headache, cough, shortness of breath COMPARISON: December 18 TECHNIQUE: AP portable chest image was obtained 06/15/2021 10:42 pm . FINDINGS: Interstitial fibrotic lung pattern matches comparison. No mass, consolidation or failure f inding seen. Heart and vasculature are normal. No measurable pleural effusion and no pneumothorax. No acute bony abnormality seen. Prominent degenerative change present at the shoulder joint with prior rotator cuff repair surgery on the right. No acute aortic findings suspected. IMPRESSION: No acute cardiopulmonary process. Chronic interstitial pattern matches comparison study.
[2021-06-16 10:59] VITALS: TEMP 97.8; O2SAT 100
[2021-06-16 11:00] VITALS: BP 142/69
--- NOTE | 2021-06-16 11:11 | RAD REPORT ---
EXAM DESCRIPTION: CT - [id number] - 06/16/2021 7:07 am CLINICAL HISTORY: Fall COMPARISON: None. TECHNIQUE: CT HEAD AND CERVICAL SPINE WITHOUT CONTRAST on 06/15/2021 10:20 PM CDT This exam was performed according to our departmental dose-optimization program, which includes autom ated exposure control, adjustment of the mA and/or kV according to patient size and/or use of iterati ve reconstruction technique. FINDINGS: Brain: There is no acute hemorrhage, mass effect or midline shift. There is a small focus of encephalomalacia within the posterior right frontal lobe. There is no hydrocephalus. There is no s ignificant volume loss for age. There is a small posterior left parietal scalp contusion. The calvarium is intact. Orbits and globes are unremarkable. The paranasal sinuses are clear. Mastoid air cells are clear. Cervical Spine: There are multiple upper old right rib fractures. Alignment is anatomic. There is mos tly left-sided upper cervical facet arthritis. There is incomplete posterior fusion of C1. Disc spaces are maintained. There are mild age indeterminate upper endplate compression deformities o f T1 and T3. Soft tissues are unremarkable. IMPRESSION: No definite acute fracture. Age indeterminate possibly old upper thoracic and right rib fractures. No acute intracranial findings. Electronically signed by: Lacho Bejarano MD 06/15/2021 11:19 PM CDT Due to temporary technical issues with the PACS/Fluency reporting system, reports are being signed by the in house radiologist without review as a courtesy to ensure prompt reporting. The interpreting r adiologist is fully responsible for the content of the report.
--- NOTE | 2021-06-16 16:41 | EKG ---
Test Date: 2021-06-15 Test Time: 22:58:29 Exercise Physiologist Certified: JUAN MEASUREMENT RESULTS: Intervals: Rate: 59 [place]: QRSD: 88 QT: 420 QTc: 415 [place]: P: [place]: QRS: -9 T: 18 INTERPRETIVE STATEMENTS: Junctional rhythm Nonspecific T wave abnormality Abnormal ECG Compared to ECG 12/25/2020 00:34:19 Junctional rhythm now present T-wave abnormality now present Sinus bradycardia no longer present Prolonged QT interval no longer present Electronically Signed On 06-16-21 16:39:00 CDT by Ray Munoz
== END 2021-06-16 00:39 | disposition home or self-care (01) ==
LOC: ER 22:08
DX: E87.6 Hypokalemia (principal); W18.30XA Fall on same level, unspecified, initial encounter; I10 Essential (primary) hypertension; I48.91 Unspecified atrial fibrillation; F03.90 Unspecified dementia, unspecified severity, without behavioral disturbance, psychotic disturbance, mood disturbance, and anxiety; Z86.73 Personal history of transient ischemic attack (TIA), and cerebral infarction without residual deficits; Z79.01 Long term (current) use of anticoagulants; Z79.82 Long term (current) use of aspirin; Z88.1 Allergy status to other antibiotic agents; Z88.5 Allergy status to narcotic agent; Z88.6 Allergy status to analgesic agent; Z88.8 Allergy status to other drugs, medicaments and biological substances
CPT/HCPCS: 36415; 70450; 71045; 72125; 80048; 80076; 83735; 83880; 84484; 85025; 85610; 93005; 99285; G0390

== ENCOUNTER 2021-09-28 00:10 | Emergency (ER) | payer OTHER ==
--- OUTSIDE RECORDS SUMMARY | 2021-09-28 00:40 | XMS REPORT | Continuity of Care Document ---
:[address] [facility] t Address [address] [place] [address] Care Team Providers Name Role Phone Jacki Jose MD Primary Care Physician Vaccine, Db Cbc Fam Attending Clinician Unavailable Tammi VERDUGO Attending Clinician TAMMI Attending Clinician Unavailable UNKNOWN Attending Clinician Unavailable Rober EARLY Attending Clinician Unavailable OBI BETANCOURT Attending Clinician Unavailable Hugo MENDOZA Attending Clinician Unavailable Ameena VERDUGO Attending Clinician WINSTON Attending Clinician Unavailable AMEENA Attending Clinician Unavailable Magdalena CAMACHO Attending Clinician Unavailable KINGS FIELDS Attending Clinician Unavailable Brenda Attending Clinician Unavailable Holland SERRANO Attending Clinician Unavailable LAURA EARLY Attending Clinician Unavailable WINSTON Admitting Clinician Unavailable Payers Payer Name Policy Type Policy Number Effective Date Expiration Date S mark MEDICARE PLAN HMO [id number] 2018-09-192020-042020-05-07 - AETNA 00:00:00 00:00:00 [employer]ET[employer] MEDICARE [id number] 2018 HMO POS 00:00:00 AET[employer] MEDICARE [id number] 2018 ADV 00:00:00 Problems Condition Condition Condition Status Onset Resolution Last Treating Co mments Source Name Details Category Date Date Treatment Clinician Date ACUTE Diagnosis Active 2021-01-05 Mem oria INTRACEREB 12-18 21:58:00 l RAL ACUTE 00:00: Aniket HEMORRHAGE INTRACEREB 00 RAL HEMORRHAGE Active 12/18/[address] [facility] ACUTE Diagnosis Active 2020-12-18 Mem oria SUBDURAL 12-18 22:57:00 l RIGHT SIDE ACUTE 00:00: Latoya nn SUBDURAL 00 RIGHT SIDE Active 12/18/[address] [facility] S/P LEFT Diagnosis Active 2020-12-19 M emoria ATRIAL 1-12 13:16:00 l APPENDAGE S/P LEFT 00:00: Her delgado LIGATION ATRIAL 00 APPENDAGE LIGATION Active 09/30/2020 [facility] POSSIBLE Diagnosis Active 2020-06-19 M emoria STROKE 06-08 23:13:00 l POSSIBLE 00:00: Boyd n STROKE 00 Active 06/08/2020 [facility] OTHER Diagnosis Active 2020-06-09 Mem oria SPECIFIED 04-08 17:53:00 l POSTPROCED OTHER 00:00: Latoya nn URAL SPECIFIED 00 STATES POSTPROCED URAL STATES Active 04/08/2020 [facility] ACUTE CVA Diagnosis Active 2020-04-16 Memoria (CEREBROVA 04-06 21:56:00 l SCULAR ACUTE 00:00: Aniket ACCIDENT) CVA 00 (CEREBROVA SCULAR ACCIDENT) Active 04/06/2020 [facility] STROKE Diagnosis Active 2020-04-06 Mem oria 7- 03:53:00 l STROKE 00:00: [place] 00 Active 04/06/2020 [facility] Illness, Problem 2020-12-25 Mem oria unspecifie 23:12:54 l d Illness, Boyd n unspecifie d 12/25/[address] [facility] Single Problem 2020-12-22 Memor ia liveborn 08:44:19 l , Single Aniket delivered liveborn vaginally , delivered vaginally 12/22/[address] [facility] CEREBRAL Diagnosis Active 2020-04-16 M emoria INFARCTION 21:56:00 l , CEREBRAL Boyd n UNSPECIFIE INFARCTION D , UNSPECIFIE D Active [facility] NONTRAUMAT Diagnosis Active 2021-01-05 Memoria IC 21:58:00 l INTRACEREB Boyd n RAL NONTRAUMAT HEMORRHAGE IC , U INTRACEREB RAL HEMORRHAGE , U Active [facility] ILLNESS, Diagnosis Active 2020-12-18 M emoria UNSPECIFIE 22:57:00 l D ILLNESS, Boyd n UNSPECIFIE D Active [facility] SINGLE Diagnosis Active 2020-12-19 Mem oria LIVEBORN 13:16:00 l INFANT, SINGLE [place] DELIVERED LIVEBORN VAGINA , DELIVERED VAGINA Active [facility] Pain in Pain in Problem Active [facility] right right [facility] - shoulder shoulder Memori a l [facility] Clinics Other Other Problem Active [facility] closed closed [facility] - displaced displaced Mauro javon fracture fracture l of of [facility] proximal proximal ent end of end of Clinics right right humerus humerus with with routine routine healing, healing, subsequent subsequent encounter encounter Trigger Trigger Problem Active [facility] finger of finger of Luke s - both hands both hands Me moria l [facility] Clinics Encounter Encounter Problem Active [facility] for other for other Luke s - orthopedic orthopedic Wi moria aftercare aftercare l [facility] Pain, Pain, Problem Active [facility] joint, joint, [facility] - hip, left hip, left Mauro javon l [facility] Clinics Closed Closed Problem Active [facility] displaced displaced Luke [facility] - basicervic basicervic Wi moria al al l fracture fracture Outpat [...] nerve pain nerve pain Me moria l [facility] Clinics Pain in Pain in Diagnosis [facility] of [facility] - left knee left knee Mauro javon l [facility] Clinics FAMILY FAMILY Disease Active [facility] HISTORY OF HISTORY OF Co llege CVA OR CVA OR of STROKE: STROKE: Medicin e FAMILY FAMILY Disease Active [facility] HISTORY OF HISTORY OF Co llege HYPERTENSI HYPERTENSI of ON: ON: Medicin e No known No known Disease Unive rs active active ity of problems problems [facility] Allergies, Adverse Reactions, Alerts Allergy Allergy Status Severity Reaction(s) Onset Inactive Treating Comm ents Source Name Type Date Date Clinician Amoxicil Propensi Active Other - See 2018-09 U nivers lauren-Pot ty to comments 1-20 ity of Clavulan adverse 00:00: [place] ate reaction 00 Medical s [facility] Meperidi Propensi Active Other - See 2018-09 U nivers ne ty to comments 1-20 ity of adverse 00:00: [place] reaction 00 Medical s Branch AMOXICIL DRUG Active Other-Cmnt 2018-09 [facility] ers LAUREN-POT 10-08 ity of CLAVULAN 00:00: [place] ATE 00 Medical Branch MEPERIDI DRUG Active Other-Cmnt 2018-09 [facility] ers NE INGREDI 10-08 ity of 00:00: [place] [facility] Demerol Propensi Active [facility] ty to 05-16 [place] adverse 00:00: of reaction 00 Medicin s to e drug Rivaroxa Propensi Active [facility] ban ty to 05-16 [place] adverse 00:00: of reaction 00 Medicin s to e drug Codeine Propensi Active Other - See Chest Un clinton ty to comments 10-07 pain-feel ity o f adverse 00:00: s like [place] reaction having a Medica l s heart Branch attack Ibuprofe Propensi Active Itching Numbness Uni vers n ty to 10-07 in head ity of adverse 00:00: [place] reaction 00 Medical s Branch CODEINE DRUG Active Other-Cmnt Unive rs INGREDI 10-07 ity of 00:00: [place] [facility] IBUPROFE DRUG Active Hives Univers N INGREDI 10-07 ity of 00:00: [place] [facility] Ge Propensi Active IBUPROFEN [place] [facility] Uncoded ty to 04-21 [facility] Allergy adverse 00:00: of reaction 00 Medicin s e NO KNOWN Allergy Active [facility] Ibuprofe Adverse Active [facility] Amoxicil Adverse Active Info Not [facility] lauren Reaction Available [facility] Demerol Adverse Active Info Not [facility] Reaction Available [facility] morphine morphine Active Memori a l [place] ibuprofe ibuprofe Active Memori a n n l [place] Anaprox Anaprox Active Memoria l [place] amoxicil amoxicil Active Memori a lauren lauren l [place] Demerol Demerol Active Memoria l [place] Codeine Codeine Active Memoria Phosphat Phosphat l e-Guaife e-Guaife Boyd vivek barnes Social History Social Habit Start Date Stop Date Quantity Comments Source History SDOH University o f Alcohol Std [place] [facility] Drinks Branch History [facility] o f Alcohol Binge [place] [facility] History [facility] University o f Alcohol Comment [place] [facility] Social History 2020-06-08 2020-06-08 [facility] 21:13:49 21:13:49 Tobacco use and 2019-08-08 2019-08-08 Never used Universit y of exposure 00:00:00 00:00:00 [facility] Alcohol intake 2019-08-08 2019-08-08 [facility] University of 00:00:00 00:00:00 non-drinker [place] [facility] (finding) Branch History SDOH 2019-08-08 2019-08-08 1 University o f Alcohol Frequency 00:00:00 00:00:00 [facility] edical Tracy Sex [birth year] Universit y of 00:00:00 00:00:00 [facility] Smoking Status Start Date Stop Date Source Unknown if ever smoked [facility] Never smoker [facility] o f Medicine Medications Ordered Filled Start Stop Current Ordering Indication Dosage Frequency Signature Comments Components Source Medication Medication Date Date Medication? Clinician (SIG) Name Name gabapentin Yes 300mg Take 300 [facility] (NEURONTIN) 9-10 mg by [place] 300 MG 13:22: mouth 3 of capsule 59 times Medicin daily. e paroxetine Yes 20mg Take 20 mg B ayl[facility] (PAXIL) 20 9-10 by mouth Colle ge MG tablet 13:22: daily. of 59 Medicin e sotalol Yes 80mg Take 80 mg [place] or (BETAPACE) 9-10 by mouth Colle ge 80 MG 13:22: two times of tablet 59 daily. Medicin e spironolact Yes 25mg Take 25 mg Nathaniel one 9-10 by mouth College (ALDACTONE) 13:22: every 48 of 25 MG 59 hours as Medicin tablet needed. e Rivaroxaban Yes Take by [facility] (XARELTO) 9-10 mouth at Colleg e 20 MG TABS 13:22: bedtime. of 59 Medicin e atorvastati Yes 10mg Take 10 mg Nathaniel n (LIPITOR) 9-10 by mouth Marina ege 10 MG 13:22: at of tablet 59 bedtime. Medicin e famotidine Yes 40mg Take 40 mg [facility] (PEPCID) 40 9-10 by mouth Marina ege MG tablet 13:22: daily. of 59 Medicin e amiodarone 2021- No [id number] 200mg Take 1 [place] (Pacerone) 7-16 07-17 tablet Health 200 MG 00:00: 04:59 (200 mg tablet 00 :00 total) by mouth 2 (two) times a day with meals. amiodarone 2020- No 200mg Take 200 U T (Pacerone) 6- 07-16 mg by Health 200 MG 00:00: 00:00 mouth 2 tablet 00 :00 (two) times a day with meals. Lidocaine Yes 1 patch, Mauro javon 0.04 MG/MG 4-06 TOP, l Medicated 20:45: Daily, 0 Herm juni Patch 00 Refill(s) Levetiracet Yes 500 mg = 1 Memoria am 500 MG 4-06 tab, PO, l Oral Tablet 20:45: Q12H, 0 Her delgado 00 Refill(s) Lidocaine Yes 1 patch, Mauro javon 0.04 MG/MG 4-06 TOP, l Medicated 20:45: Daily, 0 Herm juni Patch 00 Refill(s) Levetiracet Yes 500 mg = 1 Memoria am 500 MG 4-06 tab, PO, l Oral Tablet 20:45: Q12H, 0 Her delgado 00 Refill(s) Acetaminoph No 1 tab, Mauro javon en / 4-06 Route: PO, l butalbital 20:08: Drug Form: H ermann / Caffeine 00 TAB, Q6H, PRN Headache 1-5, Start date: 12/23/20 15:08:00 CDT, Duration: 30 day, Stop date: 01/22/21 15:07:00 CDT, 0 Acetaminoph 2021-0 No 1 tab, Mauro javon en / 12-23 Route: PO, l butalbital 20:08: Drug Form: H ermann / Caffeine 00 TAB, Q6H, PRN Headache 1-5, Start date: 12/23/20 15:08:00 CDT, Duration: 30 day, Stop date: 01/22/21 15:07:00 CDT, 0 Aspirin 325 No 1 cap, Mauro javon MG / 12-23 Route: PO, l butalbital 19:33: Drug Form: H ermann 50 MG / 00 CAP, Caffeine 40 Dosing MG Oral Weight Capsule 55.1, kg, [Fiorinal] Q6H, PRN Headache 1-5, Start date: 12/23/20 14:33:00 CDT, Duration: 30 day, Stop date: 01/22/21 14:32:00 CDT Aspirin 325 No 1 cap, Mauro javon MG / 12-23 Route: PO, l butalbital 19:33: Drug Form: H ermann 50 MG / 00 CAP, Caffeine 40 Dosing MG Oral Weight Capsule 55.1, kg, [Fiorinal] Q6H, PRN Headache 1-5, Start date: 12/23/20 14:33:00 CDT, Duration: 30 day, Stop date: 01/22/21 14:32:00 CDT Tylenol No Notes: Do Memor ia 4-05 not exceed l 16:37: 4 gm/day. [place] 00 (Same as: Tylenol) Tylenol No Notes: Do Memor ia 4-05 not exceed l 16:37: 4 gm/day. [place] 00 (Same as: Tylenol) Aspirin No Notes: Do Memor ia 4-05 not crush l 14:00: or chew. [place] 00 (Same As: Ecotrin) Aspirin No Notes: Do Memor ia 4-05 not crush l 14:00: or chew. Aniket 00 (Same As: Ecotrin) heparin No Notes: Memoria sodium, 4-05 porcine l porcine 02:00: heparin Aniket 2500 UNT/ML 00 Injectable Solution heparin No Notes: Memoria sodium, 4-05 porcine l porcine 02:00: heparin [place] 2500 UNT/ML 00 Injectable Solution gabapentin No Notes: Memor ia 300 MG Oral 4-03 (Same as: l Capsule 18:00: Neurontin) Herm juni gabapentin No Notes: Memor ia 300 MG Oral 4-03 (Same as: l Capsule 18:00: Neurontin) Herm juni Robaxin No Notes: Memoria 4-03 (Same l 14:31: as:Robaxin [place] ) Robaxin No Notes: Memoria 4-03 (Same l 14:31: as:Robaxin [place] ) lidocaine No Notes: Memori a 4% patch 4-03 (Same as: l 04:02: Aspercreme [place] Lidocaine Patch) lidocaine No Notes: Memori a 4% patch 4-03 (Same as: l 04:02: Aspercreme [place] Lidocaine Patch) atorvastati No Notes: Mauro javon n 4-03 (Same as: l 02:00: Lipitor) Aniket 00 Paroxetine No Notes: Memor ia 4-03 (Same as: l 02:00: Paxil) [place] 00 Hazardous Drug Group 3:Reproduc tive risk Hazardous Drug -- Refer to safe handling procedure PPE Matrix atorvastati No Notes: Mauro javon n 4-03 (Same as: l 02:00: Lipitor) Aniket 00 Paroxetine No Notes: Memor ia 4-03 (Same as: l 02:00: Paxil) [place] 00 Hazardous Drug Group 3:Reproduc tive risk [...] date: 12/19/20 12:22:00 CDT, 1.56, m2, 0 Sodium 2021-0 No 250 ml, Memoria Chloride 12-19 Rate: [...] day, Stop date: 01/17/21 11:00:00 CDT, 0 remove No 1 patch, Memoria patch 12-19 Route: l 16:00: TOP, Aniket 00 Daily, Drug form: ERFILM, Start date: 12/19/20 11:00:00 CDT, Duration: 30 day, Stop date: 01/17/21 11:00:00 CDT, 0 Tylenol No Notes: Do Memor ia 12-19 not exceed l 14:24: 4 gm/day. (Same as: Tylenol) Tylenol No Notes: Do Memor ia 12-19 not exceed l 14:24: 4 gm/day. (Same as: Tylenol) sennosides, No Notes: Mauro javon [facility] 12-19 (Same as: l 14:00: Senokot) 00 Saline No 10 ml, Memoria Flush 0.9% 12-19 Route: l 14:00: IVP, Drug Form: INJ, Dosing Weight 54.091, kg, Q12H, Start date: 12/19/20 9:00:00 CDT, Duration: 30 day, Stop date: 01/17/21 21:00:00 CDT Levetiracet No 500 mg, Mem oria am 12-19 Route: PO, l 14:00: Drug form: [place] 00 TAB, Q12H, Dosing Weight 55.1, kg, Start date: 12/19/20 9:00:00 CDT, Duration: 30 day, Stop date: 01/17/21 21:00:00 CDT Amiodarone No Notes: Memor ia 4-02 (Same as: l 14:00: Cordarone) Vitamin D3 No Notes: Memor ia 1000 intl 4- Same as : l units oral 14:00: Vitamin D3 H ermann Vitamin B12 No Notes: Mauro javon 4-02 (Same As: l 14:00: Vitamin [place] B-12) Famotidine No Notes: Memor ia 4-02 (Same as: l 14:00: Pepcid) Memantine No Notes: Memori a 4-02 (Same As: l 14:00: Namenda) metoprolol No Notes: Memor ia tartrate - (Same as: l 14:00: Lopressor) potassium No 20 mEq, 1 Mem oria chloride 20 -02 tab, l mEq oral 14:00: Route: PO, Her delgado tablet, 00 Drug form: extended ERTAB, release BID, (KCL) Dosing Weight 55.1, kg, Start date: 12/19/20 9:00:00 CDT, Duration: 30 day, Stop date: 01/17/21 17:00:00 CDT sennosides, No Notes: Mauro javon [facility] -02 (Same as: l 14:00: Senokot) Saline No 10 ml, Memoria Flush 0.9% 12-19 Route: l 14:00: IVP, Drug Form: INJ, Dosing Weight 54.091, kg, Q12H, Start date: 12/19/20 9:00:00 CDT, Duration: 30 day, Stop date: 01/17/21 21:00:00 CDT Levetiracet No 500 mg, Mem oria am 12-19 Route: PO, l 14:00: Drug form: Aniket 00 TAB, Q12H, Dosing Weight 55.1, kg, Start date: 12/19/20 9:00:00 CDT, Duration: 30 day, Stop date: 01/17/21 21:00:00 CDT Amiodarone No Notes: Memor ia 4-02 (Same as: l 14:00: Cordarone) Vitamin D3 No Notes: Memor ia 1000 intl 4-02 Same as : l units oral 14:00: Vitamin D3 H ermann tablet 00 Vitamin B12 No Notes: Mauro javon 4-02 (Same As: l 14:00: Vitamin [place] 00 B-12) Famotidine No Notes: Memor ia 4-02 (Same as: l 14:00: Pepcid) Memantine No Notes: Memori a 4-02 (Same As: l 14:00: Namenda) metoprolol No Notes: Memor ia tartrate 4-02 (Same as: l 14:00: Lopressor) potassium No 20 mEq, 1 Mem oria chloride 20 4-02 tab, l mEq oral 14:00: Route: PO, Her delgado tablet, 00 Drug form: extended ERTAB, release BID, (KCL) Dosing Weight 55.1, kg, Start date: 12/19/20 9:00:00 CDT, Duration: 30 day, Stop date: 01/17/21 17:00:00 CDT gabapentin No Notes: Memor ia 300 MG Oral 4-02 (Same as: l Capsule 13:00: Neurontin) Herm gabapentin No Notes: Memor ia 300 MG Oral 4-02 (Same as: l Capsule 13:00: Neurontin) Herm juni thyroid No Notes: Memoria ([facility]) 4-02 (Same As: l 11:30: [place] Thyroid, S-P-T) thyroid No Notes: Memoria ([facility]) 4-02 (Same As: l 11:30: [place] Aniket Thyroid, S-P-T) Potassium No Notes: Memori a Chloride 4-02 (Same as: l 04:51: KCL) 10 mEq/100ml product recommende d for peripheral line administra tion. Infuse no faster than 10 mEq/hr if given peripheral ly. sodium No Notes: Memoria phosphate 12-19 Infuse l 04:51: over 4 Aniket 00 hour. Do not infuse phosphorou s concurrent ly in the same line as TPN or IVF that contains calcium. For double lumen central lines, phosphorou s may be infused in a separate lumen from TPN. potassium No Notes: Memori a phosphate 12-19 (Same as: l 04:51: K [place] 00 Phosphate. ) Do not infuse phosphorou s concurrent ly in the same line as TPN or IVF that contains calcium. For double lumen central lines, phosphorou s may be infused in a separate lumen from TPN. 1 mMol phoshate has 1.47 mEq potassium Infuse over 4 hours potassium No Notes: Memori a phosphate-s 12-19 (Same as: l odium 04:51: Phos-NaK) Aniket phosphate 00 Each 1.5 250 mg-280 gm pkt has mg-160 mg 250mg oral powder phosphorou for s. Mix reconstitut w/2.5oz ion water and stir. Magnesium No Notes: Memori a Sulfate 12-19 WASTE: F/P l 04:51: - Sink; E - Municipal Trash Bin Magnesium No Notes: Memori a Oxide 12-19 (Same as: l 04:51: Mag-Ox [place] 00 400) Magnesium oxide 448kj=349l g elemental magnesium Dose=____m g magnesium oxide (___mg elemental magnesium) Calcium No Notes: Memoria Gluconate 12-19 WASTE: F/P l 04:51: - Sink; E Aniket - Municipal Trash Bin calcium No Notes: Memoria carbonate 12-19 (Same As: l 500 mg (200 04:51: Tums) Latoya nn mg 00 Calcium elemental Carbonate calcium) 500 mg = oral tablet 200 mg elemental calcium Dose = mg calcium carbonate ( mg elemental calcium) Dextrose No 12.5 gm, Memor ia 50% Syringe 12-19 25 mL, l (D50W) 04:51: Route: [place] 00 IVP, Drug Form: INJ, Dosing Weight 55.1, kg, PRN, PRN Blood Glucose Results, Start date: 12/18/20 23:51:00 CDT, Duration: 30 day, Stop date: 01/17/21 23:50:00 CDT, 0 Glucagon No 1 mg, Memoria 12-19 Route: IM, l 04:51: Drug form: Aniket 00 PDR/INJ, PRN, Dosing Weight 55.1, kg, PRN Blood Glucose Results, Start date: 12/18/20 23:51:00 CDT, Duration: 30 day, Stop date: 01/17/21 23:50:00 CDT, 0 Potassium No Notes: Memori a Chloride - (Same as: l 04:51: KCL) 10 Aniket 00 mEq/100ml product recommende d for peripheral line administra tion. Infuse no faster than 10 mEq/hr if given peripheral ly. sodium No Notes: Memoria phosphate - Infuse l 04:51: over 4 Aniket 00 hour. Do not infuse phosphorou s concurrent ly in the same line as TPN or IVF that contains calcium. For double lumen central lines, phosphorou s may be infused in a separate lumen from TPN. potassium No Notes: Memori a phosphate - (Same as: l 04:51: K [place] 00 Phosphate. ) Do not infuse phosphorou s concurrent ly in the same line as TPN or IVF that contains calcium. For double lumen central lines, phosphorou s may be infused in a separate lumen from TPN. 1 mMol phoshate has 1.47 mEq potassium Infuse over 4 hours potassium No Notes: Memori a phosphate-s - (Same as: l odium 04:51: Phos-NaK) [place] phosphate 00 Each 1.5 250 mg-280 gm pkt has mg-160 mg 250mg oral powder phosphorou for s. Mix reconstitut w/2.5oz ion water and stir. Magnesium No Notes: Memori a Sulfate 12-19 WASTE: F/P l 04:51: - Sink; E [place] 00 - Municipal Trash Bin Magnesium No Notes: Memori a Oxide (Same as: l 04:51: Mag-Ox Aniket 00 400) Magnesium oxide 507wx=053t g elemental magnesium Dose=____m g magnesium oxide (___mg elemental magnesium) Calcium No Notes: Memoria Gluconate 12-19 WASTE: F/P l 04:51: - Sink; E [place] 00 - Municipal Trash Bin calcium No Notes: Memoria carbonate 12-19 (Same As: l 500 mg (200 04:51: Tums) Latoya nn mg 00 Calcium elemental Carbonate calcium) 500 mg = oral tablet 200 mg elemental calcium Dose = mg calcium carbonate ( mg elemental calcium) Dextrose No 12.5 gm, Memor ia 50% Syringe 12-19 25 mL, l (D50W) 04:51: Route: [place] 00 IVP, Drug Form: INJ, Dosing Weight 55.1, kg, PRN, PRN Blood Glucose Results, Start date: 12/18/20 23:51:00 CDT, Duration: 30 day, Stop date: 01/17/21 23:50:00 CDT, 0 Glucagon 2020- No 1 mg, Memoria 12-19 Route: IM, l 04:51: Drug form: [place] PDR/INJ, PRN, Dosing Weight 55.1, kg, PRN Blood Glucose Results, Start date: 12/18/20 23:51:00 CDT, Duration: 30 day, Stop date: 01/17/21 23:50:00 CDT, 0 Sodium 2020-0 No 1,000 mL, Memori a Chloride 12-19 Rate: 50 l 0.9% IV 04:50: ml/hr, Aniket 1,000 mL 00 Infuse over: 20 hr, Route: IV, Dosing Weight 55.1 kg, Total Volume: 1,000, Start date: 12/18/20 23:50:00 CDT, Duration: 30 day, Stop date: 01/17/21 23:49:00 CDT, 1.56, m2, 0 Sodium 2020-0 No 1,000 mL, Memori a Chloride 12-19 Rate: 50 l 0.9% IV 04:50: ml/hr, Aniket 1,000 mL 00 Infuse over: 20 hr, Route: IV, Dosing Weight 55.1 kg, Total Volume: 1,000, Start date: 12/18/20 23:50:00 CDT, Duration: 30 day, Stop date: 01/17/21 23:49:00 CDT, 1.56, m2, 0 Docusate No Notes: Memoria 4-02 (Same as: l 04:00: Colace) [place] 00 (Do Not Crush) Docusate No Notes: Memoria 4-02 (Same as: l 04:00: Colace) [place] 00 (Do Not Crush) AMIODarone Yes 200 mg = 1 M emoria 200 mg oral 4-02 tab, PO, l tablet 03:43: BID, # 180 Latoya nn 00 tab, 0 Refill(s) Famotidine No 40 mg = 1 Me moria 40 MG Oral 4-02 tab, PO, l Tablet 03:43: Daily, # Aniket 00 30 tab, 0 Refill(s) thyroid Yes TAKE 1 Memoria ([facility]) 15 MG 4-02 TABLET BY l Oral Tablet 03:43: MOUTH IN He ann [COMMUNITY EDUCATION COORDINATOR 00 THE Thyroid] MORNING BEFORE FOOD potassium Yes 20 mEq = 1 Me moria chloride 20 4-02 tab, PO, l mEq oral 03:43: BID, # 10 Herm juni tablet, 00 tab, 0 extended Refill(s) release (KCL) clopidogrel No 75 mg = 1 M emoria 75 mg oral 4-02 tab, PO, l tablet 03:43: Daily, # [place] 00 30 tab, 0 Refill(s) Aspirin 81 No 81 mg = 1 Me moria MG Enteric 4-02 tab, PO, l Coated 03:43: Daily, # Aniket Tablet 00 90 tab, 3 Refill(s) AMIODarone Yes 200 mg = 1 M emoria 200 mg oral 4-02 tab, PO, l tablet 03:43: BID, # 180 Latoya nn 00 tab, 0 Refill(s) Famotidine No 40 mg = 1 Me moria 40 MG Oral 4-02 tab, PO, l Tablet 03:43: Daily, # Aniket 00 30 tab, 0 Refill(s) thyroid Yes TAKE 1 Memoria ([facility]) 15 MG 4-02 TABLET BY l Oral Tablet 03:43: MOUTH IN He rmann [COMMUNITY EDUCATION COORDINATOR 00 THE Thyroid] MORNING BEFORE FOOD potassium [...] tab, PO, l Coated 03:43: Daily, # [place] Tablet 00 90 tab, 3 Refill(s) gabapentin [...] PO, l oral tablet 03:42: Bedtime, # [place] 00 30 tab, 0 Refill(s) Metoprolol No 25 mg = 1 Me moria Tartrate 25 4-02 tab, PO, l mg oral 03:42: BID, # 60 Latoya nn tablet 00 tab, 0 Refill(s) gabapentin Yes 300 mg = 1 [...] tab, 0 Refill(s) Keppra No Notes: Memoria 12-19 Same as l 03:31: Keppra [place] 00 Mix with 100 mL NS, LR or D5W MEDICATION WASTE Product Size: 500 mg Product Wasted: ___ mg Keppra No Notes: Memoria 12-19 Same as l 03:31: Keppra Mix with 100 mL NS, LR or [...] 30 day, Stop date: 01/17/21 22:17:00 CDT Nicardipine No Notes: Mauro javon 12-19 Same as: l 03:18: Cardene Concentrat ion: (0.2 mg /1 ml ) Saline No 10 ml, Memoria Flush 0.9% 12-19 Route: l 03:18: IVP, Drug Ankiet 00 Form: INJ, Dosing Weight 55.1, kg, PRN, PRN Line Flush, Start date: 12/18/20 22:18:00 CDT, Duration: 30 day, Stop date: 01/17/21 22:17:00 CDT Hydralazine No Notes: Mauro javon 4-02 (Same as: l 03:11: Apresoline Aniket 00 ) Push over 5 minutes Labetalol No Notes: Memori a 4-02 (Same as: l 03:11: Normodyne, Aniket Trandate) Push over 2 minutes Give bolus over 2-3 minutes. Hydralazine No Notes: Mauro javon 4-02 (Same as: l 03:11: Apresoline ) Push over 5 minutes Labetalol No Notes: Memori a 4-02 (Same as: l 03:11: Normodyne, Aniket Trandate) Push over 2 minutes Give bolus over 2-3 minutes. Sodium No 25 mL, [facility]oria Chloride 4-02 Route: IV, l 0.9% IV 03:07: Start date: 12/18/20 22:07:00 CDT, Duration: 30 day, Stop date: 01/17/21 22:06:00 CDT, PRN Line Flush, 0 Sodium No 25 mL, [facility] Chloride 4-02 Route: IV, l 0.9% IV 03:07: Start date: 12/18/20 22:07:00 CDT, Duration: 30 day, Stop date: 01/17/21 22:06:00 CDT, PRN Line Flush, 0 BD Normal No Notes: Memori a Saline 4-02 (Same as: l Flush 03:06: BD [place] 00 Posiflush) BD Normal No Notes: Memori a Saline 4-02 (Same as: l Flush 03:06: BD [place] 00 Posiflush) Levetiracet No Notes: Mauro javon am 4-02 (Same l 03:05: as:Keppra) [place] 00 Levetiracet No Notes: Mauro javon am 4-02 (Same l 03:05: as:Keppra) [place] 00 Sodium No 1,000 mL, Memori a Chloride 12-19 Rate: 50 l 0.9% IV 03:01: ml/hr, [place] 1,000 mL 00 Infuse over: 20 hr, Route: IV, Dosing Weight 54.091 kg, Total Volume: 1,000, Start date: 12/18/20 22:01:00 CDT, Duration: 30 day, Stop date: 01/17/21 22:00:00 CDT, 1.57, m2, 0 Acetaminoph No Notes: Do M emoria en 12-19 not exceed l 03:01: 4 gm/day. [place] 00 (Same as: Tylenol) Bisacodyl No Notes: Memori a 4- (Same As: l 03:01: Dulcolax, [place] 00 Bisco-Lax) Ondansetron No Notes: Mauro javon 12-19 (Same as: l 03:01: Zofran) [place] 00 MEDICATION WASTE Product Size: 4 mg Product Wasted: ___ mg Saline No Notes: [facility] Flush 0.9% 12-19 (Same as: l 03:01: BD [place] 00 Posiflush) Sodium No 1,000 mL, Memori a Chloride 12-19 Rate: 50 l 0.9% IV 03:01: ml/hr, [place] 1,000 mL 00 Infuse over: 20 hr, Route: IV, Dosing Weight 54.091 kg, Total Volume: 1,000, Start date: 12/18/20 22:01:00 CDT, Duration: 30 day, Stop date: 01/17/21 22:00:00 CDT, 1.57, m2, 0 Acetaminoph No Notes: Do M emoria en 12-19 not exceed l 03:01: 4 gm/day. [place] 00 (Same as: Tylenol) Bisacodyl No Notes: Memori a 4-02 (Same As: l 03:01: Dulcolax, [place] 00 Bisco-Lax) Ondansetron 2021-0 No Notes: Mauro javon 4- (Same as: l 03:01: Zofran) [place] 00 MEDICATION WASTE Product Size: 4 mg Product Wasted: ___ mg Saline No Notes: [facility] Flush 0.9% 12-19 (Same as: l 03:01: BD [place] 00 Posiflush) Saline 2020-0 Yes 10 ml, [facility] Flush 0.9% 12-12 Route: l 02:00: IVP, Drug [place] 00 Form: INJ, Dosing Weight 54.091, kg, Q12H, Start date: 12/11/20 21:00:00 CDT, Duration: 30 day, Stop date: 01/10/21 9:00:00 CDT Saline Yes 10 ml, [facility] Flush 0.9% 12-12 Route: l 02:00: IVP, Drug Form: INJ, Dosing Weight 54.091, kg, Q12H, Start date: 12/11/20 21:00:00 CDT, Duration: 30 day, Stop date: 01/10/21 9:00:00 CDT Benzocaine 0 No 2 spray, Mem oria 140 MG/ML / 3-25 Route: l butamben 20 17:00: MUCOUS Herm juni MG/ML / 00 MEM, Tetracaine ONCALL, 20 MG/ML Start Mucosal date: [place] 12/11/20 [Cetacaine] 12:00:00 CDT, Duration: 1 doses or times Lidocaine 2020-0 No 15 mL, Memori a Viscous 2% 12-11 Route: l mucous 17:00: S&SPIT, [place] membrane 00 ONCALL, solution Start date: 12/11/20 12:00:00 CDT, Duration: 30 day, Stop date: 01/10/21 11:59:00 CDT Midazolam 2020-0 No 5 mg, [facility] 3-25 Route: l 17:00: IVP, [place] 00 ONCALL, Dosing Weight 54.091, kg, Start date: 12/11/20 12:00:00 CDT, Duration: 1 doses or times Fentanyl 2020-0 No 100 [facility] 3-25 microgram, l 17:00: Route: IV, [place] 00 ONCALL, Dosing Weight 54.091, kg, Start date: 12/11/20 12:00:00 CDT, Duration: 30 day, Stop date: 01/10/21 11:59:00 CDT Benzocaine 2020-0 No 2 spray, Mem oria 140 MG/ML / 3-25 Route: l butamben 20 17:00: MUCOUS Herm juni MG/ML / 00 MEM, Tetracaine ONCALL, 20 MG/ML Start Mucosal date: [place] 12/11/20 [Cetacaine] 12:00:00 CDT, Duration: 1 doses or times Lidocaine 1-0 No 15 mL, Memori a Viscous 2% 3-25 Route: l mucous 17:00: S&SPIT, [place] membrane 00 ONCALL, solution Start date: 12/11/20 12:00:00 CDT, Duration: 30 day, Stop date: 01/10/21 11:59:00 CDT Midazolam 2020-0 No 5 mg, [facility] 3-25 Route: l 17:00: IVP, [place] 00 ONCALL, Dosing Weight 54.091, kg, Start date: 12/11/20 12:00:00 CDT, Duration: 1 doses or times Fentanyl 2020-0 No 100 [facility] 3-25 microgram, l 17:00: Route: IV, [place] 00 ONCALL, Dosing Weight 54.091, kg, Start date: 12/11/20 12:00:00 CDT, Duration: 30 day, Stop date: 01/10/21 11:59:00 CDT Sodium 1-0 Yes 500 mL, [facility] Chloride 3-25 Rate: 30 l 0.9% IV 500 16:05: ml/hr, Herm juni mL 00 Infuse over: 16.7 hr, Route: IV, Dosing Weight 54.091 kg, Total Volume: 500, Start date: 12/11/20 11:05:00 CDT, Duration: 30 day, Stop date: 01/10/21 11:04:00 CDT, 1.57, m2 Saline 1-0 Yes 10 ml, [facility] Flush 0.9% 3-25 Route: l 16:05: IVP, Drug [place] 00 Form: INJ, Dosing Weight 54.091, kg, PRN, PRN Line Flush, Start date: 12/11/20 11:05:00 CDT, Duration: 30 day, Stop date: 01/10/21 11:04:00 CDT Sodium 1-0 Yes 500 mL, [facility] Chloride 3-25 Rate: 30 l 0.9% IV 500 16:05: ml/hr, Herm juni mL Infuse over: 16.7 hr, Route: IV, Dosing Weight 54.091 kg, Total Volume: 500, Start date: 12/11/20 11:05:00 CDT, Duration: 30 day, Stop date: 01/10/21 11:04:00 CDT, 1.57, m2 Saline 2020-0 Yes 10 ml, [facility] Flush 0.9% 3-25 Route: l 16:05: IVP, Drug [place] 00 Form: INJ, Dosing Weight 54.091, kg, PRN, PRN Line Flush, Start date: 12/11/20 11:05:00 CDT, Duration: 30 day, Stop date: 01/10/21 11:04:00 CDT trospium 2020-0 Yes 0 [facility] chloride 20 3-25 Refill(s) l mg oral 15:07: [place] tablet 00 trospium 2020-0 Yes 0 [facility] chloride 20 3-25 Refill(s) l mg oral 15:07: [place] tablet 00 thyroid 2020-0 Yes 0 [facility]oria desiccated 3-25 Refill(s) l 15 mg oral 15:06: [place] tablet memantine 2020-0 Yes 0 Memoria 10 mg oral 3-25 Refill(s) l tablet 15:06: [place] 00 thyroid 2020-0 Yes 0 [facility] desiccated 3-25 Refill(s) l 15 mg oral 15:06: [place] tablet 00 memantine 2020-0 Yes 0 [facility]oria 10 mg oral 3-25 Refill(s) l tablet 15:06: [place] 00 spironolact 2020-0 Yes 0 Memori a one 25 mg 3-25 Refill(s) l oral tablet 15:05: Boyd n spironolact 2020-0 Yes 0 Memori a one 25 mg 3-25 Refill(s) l oral tablet 15:05: Boyd n gabapentin 2020-1 Yes 300 mg = 1 M emoria 300 MG Oral 0-06 cap, PO, l Capsule 18:33: Q8H, 0 [place] 00 Refill(s) AMIODarone 2019-09 Yes 200 mg = 1 M emoria 200 mg oral 0-06 tab, PO, l tablet 18:33: Daily, 0 [place] 00 Refill(s) clopidogrel 2019-09 Yes 75 mg = 1 M emoria 75 mg oral 0-06 tab, PO, l tablet 18:33: Daily, 0 [place] 00 Refill(s) gabapentin 2019-09 Yes 300 mg = 1 M emoria 300 MG Oral 0-06 cap, PO, l Capsule 18:33: Q8H, 0 [place] 00 Refill(s) AMIODarone 2019-09 Yes 200 mg = 1 M emoria 200 mg oral 0-06 tab, PO, l tablet 18:33: Daily, 0 [place] 00 Refill(s) clopidogrel 2019-09 Yes 75 mg = 1 M emoria 75 mg oral 0-06 tab, PO, l tablet 18:33: Daily, 0 [place] Refill(s) Simethicone 2019-09 No Notes: Mauro javon 0-02 (Same as: l 19:15: Mylicon) [place] Simethicone 2019-09 No Notes: Mauro javon 0-02 (Same as: l 19:15: Mylicon) [place] Amiodarone No Notes: Memor ia - (Same as: l 22:00: Cordarone) Amiodarone No Notes: Memor ia - (Same as: l 22:00: Cordarone) [place] remove No Notes: [facility]oria patch 06-16 Remove l 02:00: patch 12 [place] 00 hours after applicatio n each day. remove No Notes: [facility]oria patch 06-16 Remove l 02:00: patch 12 [place] 00 hours after applicatio n each day. Lidocaine No Notes: Memori a 0.05 MG/MG 06-15 Apply only l Transdermal 17:30: once for He rmann Patch 00 up to 12 hours in a 24-hour period (12 hours on and 12 hours off). (Same as: Lidoderm) "Remove old patch before applicatio n of new patch" Lidocaine 2020-0 No Notes: Memori a 0.05 MG/MG 06-15 Apply only l Transdermal 17:30: once for He rmann Patch 00 up to 12 hours in a 24-hour period (12 hours on and 12 hours off). (Same as: Lidoderm) "Remove old patch before applicatio n of new patch" metoprolol 2019-0 No 12.5 mg, Mem oria tartrate 9-25 0.5 tab, l 22:00: Route: PO, [place] 00 Drug form: TAB, BID, Dosing Weight 64.688, kg, Start date: 06/13/20 17:00:00 CDT, Duration: 30 day, Stop date: 07/13/20 9:00:00 CDT, 0 metoprolol 2019-0 No 12.5 mg, Mem oria tartrate 9-25 0.5 tab, l 22:00: Route: PO, [place] 00 Drug form: TAB, BID, Dosing Weight 64.688, kg, Start date: 06/13/20 17:00:00 CDT, Duration: 30 day, Stop date: 07/13/20 9:00:00 CDT, 0 Ibuprofen 2019-0 No Notes: Memori a 9-25 (Same as: l 21:26: Motrin) "Do Not Crush" Take with food. Ibuprofen 2019-0 No Notes: Memori a 9-25 (Same as: l 21:26: Motrin) "Do Not Crush" Take with food. clopidogrel 2019-0 No Notes: Mauro javon 9-25 (Same As: l 18:37: Plavix) clopidogrel 2020-0 No Notes: Mauro javon 9-25 (Same As: l 18:37: Plavix) Miralax 2020-0 No Notes: Memoria 9-24 Dissolve l 02:11: in 8 oz of [place] 00 water or juice. (Same as: Miralax) Miralax 2020-0 No Notes: [facility]oria 9-24 Dissolve l 02:11: in 8 oz of [place] 00 water or juice. (Same as: Miralax) Dulcolax 2019-0 No Notes: [facility] Laxative 9-24 (Same As: l 02:11: Dulcolax, [place] 00 Bisco-Lax) Dulcolax No Notes: [facility] Laxative 24 (Same As: l 02:11: Dulcolax, Bisco-Lax) Amiodarone No Notes: Memor ia 06-10 (Same as: l 22:00: Cordarone) Amiodarone No Notes: Memor ia 06-10 (Same as: l 22:00: Cordarone) metoprolol No Notes: Memor ia tartrate 06-10 (Same as: l 21:00: Lopressor) metoprolol No Notes: Memor ia tartrate 06-10 (Same as: l 21:00: Lopressor) Melatonin 3 No Notes: Mauro javon MG Extended 06-10 (Same as: l Release 17:36: Melatonin) Herm juni Tablet Melatonin 3 No Notes: Mauro javon MG Extended 06-10 (Same as: l Release 17:36: Melatonin) Herm juni Tablet Macrobid No Notes: Not Mem oria 06-10 recommende l 15:57: d for [place] 00 patients with CrCl<30 ml/min (Same as:Macrobi d) With food. Macrobid No Notes: Not Mem oria 06-10 recommende l 15:57: d for [place] 00 patients with CrCl<30 ml/min (Same as:Macrobi d) With food. atorvastati No Notes: Mauro javon n 06-10 (Same As: l 02:00: Lipitor) atorvastati No Notes: Mauro javon n 06-10 (Same As: l 02:00: Lipitor) metoprolol No Notes: Memor ia tartrate - (Same as: l 23:00: Lopressor) metoprolol No Notes: Memor ia tartrate - (Same as: l 23:00: Lopressor) Potassium No Notes: Memori a Chloride - (Same as: l 1.33 MEQ/ML 18:55: Potassium H ermann Oral 00 Chloride) Solution Potassium No Notes: Memori a Chloride 06-09 (Same as: l 1.33 MEQ/ML 18:55: Potassium H ermann Oral 00 Chloride) Solution Aspirin 81 2020-0 No Notes: Do Me moria MG Enteric 06-09 not crush l Coated 14:00: or chew. [place] Tablet 00 (Same As: Ecotrin) Aspirin 81 2020-0 No Notes: Do Me moria MG Enteric 06-09 not crush l Coated 14:00: or chew. [place] Tablet 00 (Same As: Ecotrin) Cordarone + 2020-0 No 2 mg/ml. M emoria Dextrose 5% 06-09 "Recommend l in Water IV 13:39: ation: Use [place] 100 mL 00 an in-line filter during administra tion for continuous infusions to reduce the incidence of phlebitis" (Same as Codarone) MEDICATION WASTE Product Size: 150 mg Product Wasted: ___ mg Cordarone + 2020-0 No 2 mg/ml. M emoria Dextrose 5% 06-09 "Recommend l in Water IV 13:39: ation: Use [place] 100 mL 00 an in-line filter during administra tion for continuous infusions to reduce the incidence of phlebitis" (Same as Codarone) MEDICATION WASTE Product Size: 150 mg Product Wasted: ___ mg AMIODarone 2020-0 No 2 mg/ml. Me moria 900 mg in 06-09 Use Glass l D5W 500 ml 13:11: Bottle or He rmann IV 900 mg + 00 Non PVC Dextrose 5% Bag "Use in Water IV 0.22 482 mL micron in-line filter" MEDICATION WASTE Product Size: 900 mg Product Wasted: ___ mg AMIODarone 2020-0 No 2 mg/ml. Me moria 900 mg in 06-09 Use Glass l D5W 500 ml 13:11: Bottle or He rmann IV 900 mg + 00 Non PVC Dextrose 5% Bag "Use in Water IV 0.22 482 mL micron in-line filter" MEDICATION WASTE Product Size: 900 mg Product Wasted: ___ mg Amiodarone 2020-0 No 150 mg, Mauro javon 06-09 Route: l 13:07: IVPB, [place] 00 ONCE, Dosing Weight 64.688, kg, Start date: 06/09/20 8:07:00 CDT, Stop date: 06/09/20 8:07:00 CDT Amiodarone 2019-0 No 150 mg, Mauro javon 06-09 Route: l 13:07: IVPB, ONCE, Dosing Weight 64.688, kg, Start date: 06/09/20 8:07:00 CDT, Stop date: 06/09/20 8:07:00 CDT gabapentin 2019-0 No Notes: Memor ia 300 MG Oral 06-09 (Same as: l Capsule 13:00: Neurontin) gabapentin 2019-0 No Notes: Memor ia 300 MG Oral 06-09 (Same as: l Capsule 13:00: Neurontin) Tylenol 2019-0 No Notes: Do Memor ia 06-09 not exceed l 12:09: 4 gm/day. (Same as: Tylenol) Tylenol 0 No Notes: Do Memor ia 06-09 not exceed l 12:09: 4 gm/day. (Same as: Tylenol) Diltiazem 2019-0 No 20 mg, Memori a 06-09 Route: IV, l 11:59: ONCE, Dosing Weight 64.688, kg, Priority: NOW, Start date: 06/09/20 6:59:00 CDT, Stop date: 06/09/20 6:59:00 CDT Diltiazem 2019-0 No 20 mg, Memori a 06-09 Route: IV, l 11:59: ONCE, Dosing Weight 64.688, kg, Priority: NOW, Start date: 06/09/20 6:59:00 CDT, Stop date: 06/09/20 6:59:00 CDT NS (Bolus) 0 No 500 mL, Mauro javon IV 06-09 500 ml/hr, l 11:06: Infuse Over: 1 hr, Route: IV, 500, Drug form: INJ, ONCE, Priority: STAT, Dosing Weight 64.688 kg, Start date: 06/09/20 6:06:00 CDT, Stop date: 06/09/20 6:06:00 CDT, 0 NS (Bolus) 2020-0 No 500 mL, Mauro javon IV 06-09 500 ml/hr, l 11:06: Infuse [place] 00 Over: 1 hr, Route: IV, 500, Drug form: INJ, ONCE, Priority: STAT, Dosing Weight 64.688 kg, Start date: 06/09/20 6:06:00 CDT, Stop date: 06/09/20 6:06:00 CDT, 0 metoprolol No Notes: Memor ia tartrate 06-09 (Same as: l 09:45: Lopressor) [place] 00 metoprolol No Notes: Memor ia tartrate 06-09 (Same as: l 09:45: Lopressor) [place] 00 Metoprolol No Notes: Memor ia - (Same as: l 09:43: Lopressor) [place] 00 Push over 2 minutes Metoprolol No Notes: Memor ia - (Same as: l 09:43: Lopressor) [place] 00 Push over 2 minutes Metoprolol No Notes: Memor ia - (Same as: l 09:34: Lopressor) [place] 00 Push over 2 minutes Metoprolol No Notes: Memor ia - (Same as: l 09:34: Lopressor) [place] 00 Push over 2 minutes Macrobid No Notes: Not Mem oria 06-09 recommende l 05:00: d for [place] patients with CrCl<30 ml/min (Same as:Macrobi d) With food. heparin No Notes: Memoria 06-09 porcine l 05:00: heparin Macrobid 0 No Notes: Not Mem oria 06-09 recommende l 05:00: d for [place] patients with CrCl<30 ml/min (Same as:Macrobi d) With food. heparin No Notes: Memoria 06-09 porcine l 05:00: heparin atorvastati No Notes: Mauro javon n 06-09 Same as l 02:00: Lipitor [place] 00 Docusate No Notes: [facility]oria 06-09 (Same as: l 02:00: Colace) [place] 00 (Do Not Crush) Saline 0 No Notes: [facility]oria Flush 0.9% - (Same as: l 02:00: BD Posiflush) metoprolol 0 No Notes: Memor ia tartrate 06-09 (Same as: l 02:00: Lopressor) 12.5 mg=1/2 X 25 mg TAB Nitrofurant 2019-0 No 100 mg, Mem oria oin 06-09 Route: PO, l 02:00: Drug form: [place] CAP, ABXQ6H, Dosing Weight 64.688, kg, Start date: 06/08/20 21:00:00 CDT, Duration: 7 day, Stop date: 06/15/20 15:00:00 CDT Paroxetine No Notes: Memor ia 06-09 (Same as: l 02:00: Paxil) [facility]ous [facility] Group 3:Reproduc tive risk Hazardous Drug -- Refer to safe handling procedure PPE Matrix atorvastati No Notes: Mauro javon n 06-09 Same as l 02:00: Lipitor Docusate 0 No Notes: Memoria - (Same as: l 02:00: Colace) (Do Not Crush) Saline No Notes: [facility] Flush 0.9% 06-09 (Same as: l 02:00: BD Posiflush) metoprolol 0 No Notes: Memor ia tartrate 06-09 (Same as: l 02:00: Lopressor) 12.5 mg=1/2 X 25 mg TAB Nitrofurant 0 No 100 mg, Mem oria oin 06-09 Route: PO, l 02:00: Drug form: [place] CAP, ABXQ6H, Dosing Weight 64.688, kg, Start date: 06/08/20 21:00:00 CDT, Duration: 7 day, Stop date: 06/15/20 15:00:00 CDT Paroxetine 0 No Notes: Memor ia - (Same as: l 02:00: Paxil) Hazardous Drug Group 3:Reproduc tive risk Hazardous Drug -- Refer to safe handling procedure PPE Matrix Tylenol 0 No Notes: Do Memor ia 9-21 not exceed l 01:54: 4 gm/day. (Same as: Tylenol) Tylenol 2020-0 No Notes: Do Memor ia 9-21 not exceed l 01:54: 4 gm/day. (Same as: Tylenol) Aspirin 81 2020-0 No Notes: Memor ia MG Chewable 9-21 Take with l Tablet 00:08: food. Aspirin 81 2020-0 No Notes: Memor ia MG Chewable 9-21 Take with l Tablet 00:08: food. Sodium 2020-0 No 1,000 ml, Memori a Chloride 9-20 Rate: 100 l 0.9% IV 22:42: ml/hr, [place] 1,000 mL + 00 Infuse M.V.I.-12 over: 10.1 10 mL Daily hr, Route: + folic IV, Dosing acid IV 1 Weight mg Daily + 64.688 kg, thiamine IV Total 1 Volume: 1,011.2, Start date: 06/08/20 17:42:00 CDT, Duration: 2 day, Stop date: 06/10/20 17:41:00 CDT, 1.69, m2, 0 Sodium 2020-0 No 1,000 ml, Memori a Chloride 9-20 Rate: 100 l 0.9% IV 22:42: ml/hr, [...] 9-20 (Same as: l 22:28: BD Posiflush) Labetalol 2020-0 No 105 mmHg, Me moria [...] Q12H, Latoya nn tablet 00 0 Refill(s) rivaroxaban 2020-0 Yes 20 mg = 1 M emoria 20 mg oral 7-24 tab, PO, l tablet 20:48: QPM, For Atrial Fibrillati on, 0 Refill(s) metoprolol 2020-0 Yes 12.5 mg = Me moria tartrate 25 7-24 0.5 tab, l mg oral 20:48: PO, Q12H, Latoya nn tablet 00 0 Refill(s) DME 2020-0 Yes See Memoria Prescriptio 7-24 Instructio l n 19:01: ns, MIS, [place] ONCE, cardiac rehab phase II, # 1 ea, 0 Refill(s) DME 2020-0 Yes See Memoria Prescriptio 7-24 Instructio l n 19:01: ns, MIS, [place] 00 ONCE, cardiac rehab phase II, # 1 ea, 0 Refill(s) atorvastati 2020-0 Yes 80 mg = 1 M emoria n 80 mg 7-24 tab, PO, l oral tablet 18:49: Bedtime, # 30 tab, 0 Refill(s) atorvastati 2020-0 Yes 80 mg = 1 M emoria n 80 mg 7-24 tab, PO, l oral tablet 18:49: Bedtime, # 30 tab, 0 Refill(s) atorvastati 2020-0 No 80 mg = 4 M emoria n 20 mg 7-24 tab, PO, l oral tablet 18:47: Bedtime, # [place] 00 30 tab, 0 Refill(s) atorvastati No 80 mg = 4 M emoria n 20 mg 7-24 tab, PO, l oral tablet 18:47: Bedtime, # [place] 00 30 tab, 0 Refill(s) metoprolol No Notes: Memor ia tartrate 7-23 (Same as: l 02:00: Lopressor) [place] 00 12.5 mg=1/2 X 25 mg TAB metoprolol No Notes: Memor ia tartrate 7-23 (Same as: l 02:00: Lopressor) [place] 00 12.5 mg=1/2 X 25 mg TAB Aspirin 81 No Notes: Do Me moria MG Enteric 7-22 not crush l Coated 14:00: or chew. [place] Tablet 00 (Same As: Ecotrin) Aspirin 81 No Notes: Do Me moria MG Enteric 7-22 not crush l Coated 14:00: or chew. [place] Tablet 00 (Same As: Ecotrin) Potassium No Notes: Memori a Chloride -22 (Same as: l 10:12: K-Dur 20) [place] 00 "Do Not Crush" Give with food and full glass of water For patients unable to swallow tablet, dissolve in one half glass of water. Allow about 2 minutes for the tablets to disintegra te. Stir before giving to prepare slurry and administer . Please exclude Patient s with feeding tube less than 14 Chinese (Dobhoff, J-tube etc) and pediatric and patients. potassium No Notes: Memori a phosphate-s -22 (Same as: l odium 10:12: Phos-NaK) [place] phosphate 00 Each 1.5 250 mg-280 gm pkt has mg-160 mg 250mg oral powder phosphorou for s. Mix reconstitut w/2.5oz ion water and stir. potassium No Notes: Memori a phosphate 7-22 (Same as: l 10:12: K [place] 00 Phosphate. ) Do not infuse phosphorou s concurrent ly in the same line as TPN or IVF that contains calcium. For double lumen central lines, phosphorou s may be infused in a separate lumen from TPN. 1 mMol phoshate has 1.47 mEq potassium Infuse over 4 hours sodium 2020-0 No Notes: Memoria phosphate 7-22 Infuse l 10:12: over 4 [place] 00 hour. Do not infuse phosphorou s concurrent ly in the same line as TPN or IVF that contains calcium. For double lumen central lines, phosphorou s may be infused in a separate lumen from TPN. Magnesium No Notes: Memori a Sulfate - WASTE: F/P l 10:12: - Sink; E - Municipal Trash Bin Magnesium 2019-0 No Notes: Memori a Oxide - (Same as: l 10:12: Mag-Ox 400) Magnesium oxide [id number] g elemental magnesium Dose=____m g magnesium oxide (___mg elemental magnesium) Calcium 2019- No Notes: [facility]oria Gluconate 04-09 WASTE: F/P l 10:12: - Sink; E - Municipal Trash Bin Potassium 2019- No Notes: Memori a Chloride - (Same as: l 10:12: K-Dur 20) "Do Not Crush" Give with food and full glass of water For patients unable to swallow tablet, dissolve in one half glass of water. Allow about 2 minutes for the tablets to disintegra te. Stir before giving to prepare slurry and administer . Please exclude Patient s with feeding tube less than 14 Chinese (Dobhoff, J-tube etc) and pediatric and patients. potassium No Notes: Memori a phosphate-s - (Same as: l odium 10:12: Phos-NaK) phosphate 00 Each 1.5 250 mg-280 gm pkt has mg-160 mg 250mg oral powder phosphorou for s. Mix reconstitut w/2.5oz ion water and stir. potassium No Notes: Memori a phosphate -22 (Same as: l 10:12: K [place] 00 Phosphate. ) Do not infuse phosphorou s concurrent ly in the same line as TPN or IVF that contains calcium. For double lumen central lines, phosphorou s may be infused in a separate lumen from TPN. 1 mMol phoshate has 1.47 mEq potassium Infuse over 4 hours sodium 2019- No Notes: Memoria phosphate 7-22 Infuse l 10:12: over 4 [place] hour. Do not infuse phosphorou s concurrent [...] Oxide 04-09 (Same as: l 10:12: Mag-Ox [place] 00 400) Magnesium oxide [id number] g elemental magnesium Dose=____m g magnesium oxide (___mg elemental magnesium) Calcium No Notes: [facility] Gluconate 04-09 WASTE: F/P l 10:12: - Sink; E - [facility] Trash Bin benzocaine- No Notes: Mauro javon menthol 04-09 Cepacol l topical 03:22: lozenges Boyd n Dispense 1 box = 16 lozenges (Same As: Cepacol Lozenges) benzocaine- No Notes: Mauro javon menthol 04-09 Cepacol l topical 03:22: lozenges Boyd n Dispense 1 box = 16 lozenges (Same As: Cepacol Lozenges) phenol No Notes: Memoria 04-09 Chlorasept l 03:06: ic [place] (Same as: Chlorasept ic, Sore Throat [place]) WASTE: F/P - Black; E - Municipal Trash Bin Menthol 5 No 1 lozenge, Me moria MG Lozenge 04-09 Route: PO, l [[place]] 03:06: Dosing Weight 74.091, kg, Daily, PRN Sore Throat, Start date: 04/08/20 22:06:00 CDT, Duration: 2 day, Stop date: 04/10/20 22:05:00 CDT phenol No Notes: Memoria 04-09 Chlorasept l 03:06: ic [place] (Same as: Chlorasept ic, Sore Throat [place]) WASTE: F/P - Black; E - Municipal Trash Bin Menthol 5 No 1 lozenge, Me moria MG Lozenge 04-09 Route: PO, l [[place]] 03:06: Dosing Weight 74.091, kg, Daily, PRN Sore Throat, Start date: 04/08/20 22:06:00 CDT, Duration: 2 day, Stop date: 04/10/20 22:05:00 CDT rivaroxaban 2020-0 No Notes: Mauro javon - (Same as: l 01:44: Xarelto) Administer with food rivaroxaban 2020-0 No Notes: Mauro javon - (Same as: l 01:44: Xarelto) Administer with food Xarelto 2020-0 No Notes: Memoria - (Same as: l 22:00: Xarelto) Administer with food Xarelto 2020-0 No Notes: [facility]oria - (Same as: l 22:00: Xarelto) Administer with food Protonix 2020-0 No 20 mg, Memoria 04-08 Route: PO, l 21:30: Drug form: ECTAB, Before Dinner, Dosing Weight 74.091, kg, Start date: 04/08/20 16:30:00 CDT, Duration: 30 day, Stop date: 05/07/20 16:30:00 CDT Protonix 2019-0 No 20 mg, Memoria 04-08 Route: PO, [...] (ANES) 04-08 Drug form: l 15:16: SOLN, [place] 00 ONCE, Stop date: 04/08/20 10:16:00 CDT neostigmine 2020-0 No Route: IV, Memoria (ANES) 04-08 Drug form: l 15:16: INJ, ONCE, Stop date: 04/08/20 10:16:00 CDT glycopyrrol 2019-0 No Route: IV, Memoria ate (ANES) 04-08 Drug form: l 15:16: INJ, ONCE, Stop date: 04/08/20 10:16:00 CDT sugammadex 2019-0 No Route: IV, Magdalena emoria (ANES) 04-08 Drug form: l 15:16: SOLN, ONCE, Stop date: 04/08/20 10:16:00 CDT protamine 2019-0 No Route: IV, Me moria (ANES) 04-08 Drug form: l 15:15: INJ, ONCE, Stop date: 04/08/20 10:15:00 CDT protamine 2020-0 No Route: IV, Me moria (ANES) 04-08 Drug form: l 15:15: INJ, ONCE, Stop date: 04/08/20 10:15:00 CDT heparin 2020-0 No Route: IV, Mauro javon (ANES) 04-08 Drug form: l 14:24: INJ, ONCE, Stop date: 04/08/20 9:24:00 CDT heparin 2020-0 No Route: IV, Mauro javon (ANES) 04-08 Drug form: l 14:24: INJ, ONCE, Stop date: 04/08/20 9:24:00 CDT Hydralazine 2019-0 No Notes: Mauro javon -21 (Same as: l 14:20: Apresoline ) Push over 5 minutes Labetalol 2020-0 No 10 mg, 2 Mauro javon 7-21 mL, Route: l 14:20: IVP, Drug form: INJ, Q5Min, Dosing Weight 74.091, kg, PRN Elevated BP, Start date: 04/08/20 9:20:00 CDT, Duration: 5 doses or times, Stop date: Limited # of times, 0 Fentanyl 2020-0 No Notes: Memoria 7-21 (Same as: l 14:20: Sublimaze) Preservat rosa free. Flumazenil 2020-0 No Notes: Memor ia 7-21 (Same as: l 14:20: Romazicon) Naloxone 2020-0 No Notes: Memoria 7-21 Same as l 14:20: Narcan Ondansetron 2019-0 No Notes: Mauro javon 7-21 (Same as: l 14:20: Zofran) MEDICATION WASTE Product Size: 4 mg Product Wasted: ___ mg Hydralazine 2019- No Notes: Mauro javon 7-21 (Same as: l 14:20: Apresoline ) Push over 5 minutes Labetalol 2019-0 No 10 mg, 2 Mauro javon 7-21 mL, Route: l 14:20: IVP, Drug form: INJ, Q5Min, Dosing Weight 74.091, kg, PRN Elevated BP, Start date: 04/08/20 9:20:00 CDT, Duration: 5 doses or times, Stop date: Limited # of times, 0 Fentanyl 2020-0 No Notes: Memoria 7- (Same as: l 14:20: Sublimaze) Preservat rosa free. Flumazenil 2019-0 No Notes: Memor ia 7-21 (Same as: l 14:20: Romazicon) Naloxone 2020-0 No Notes: Memoria 7-21 Same as l 14:20: Narcan Ondansetron 2019-0 No Notes: Mauro javon 7-21 (Same as: l 14:20: Zofran) MEDICATION WASTE Product Size: 4 mg Product Wasted: ___ mg norepinephr 2019-0 No Route: IV, Memoria ine (ANES) - Drug form: l 13:53: INJ, ONCE, Stop date: 04/08/20 8:53:00 CDT ceFAZolin 2019-0 No Route: IV, Me moria (ANES) Drug form: l 13:53: INJ, ONCE, Stop date: 04/08/20 8:53:00 CDT norepinephr 2020-0 No Route: IV, Memoria ine (ANES) 04-08 Drug form: l 13:53: INJ, ONCE, Stop date: 04/08/20 8:53:00 CDT ceFAZolin 2020-0 No Route: IV, Me moria (ANES) 04-08 Drug form: l 13:53: INJ, ONCE, Stop date: 04/08/20 8:53:00 CDT lidocaine 2020-0 No Route: IV, Me moria (ANES) 04-08 Drug form: l 13:23: INJ, ONCE, Stop date: 04/08/20 8:23:00 CDT rocuronium 2020-0 No Route: IV, M emoria (ANES) 04-08 Drug form: l 13:23: INJ, ONCE, Stop date: 04/08/20 8:23:00 CDT fentaNYL 2020-0 No Route: IV, Mem oria (ANES) 04-08 Drug form: l 13:23: INJ, ONCE, Stop date: 04/08/20 8:23:00 CDT propofol 2020-0 No Route: IV, Mem oria (ANES) 04-08 Drug form: l 13:23: INJ, ONCE, Stop date: 04/08/20 8:23:00 CDT lidocaine 2020-0 No Route: IV, Me moria (ANES) 04-08 Drug form: l 13:23: INJ, ONCE, Stop date: 04/08/20 8:23:00 CDT rocuronium 2020-0 No Route: IV, M emoria (ANES) 04-08 Drug form: l 13:23: INJ, ONCE, Stop date: 04/08/20 8:23:00 CDT fentaNYL 2020-0 No Route: IV, Mem oria (ANES) 04-08 Drug form: l 13:23: INJ, ONCE, Stop date: 04/08/20 8:23:00 CDT propofol 2020-0 No Route: IV, Mem oria (ANES) 04-08 Drug form: l 13:23: INJ, ONCE, Stop date: 04/08/20 8:23:00 CDT Isolyte S 2019-0 No Route: IV, Me vernon PH 7.4 7- Total l (ANES) 1000 12:30: Volume: Her delgado mL 00 1,000, Start date: 04/08/20 7:30:00 CDT, Stop date: 04/08/20 8:30:00 CDT Isolyte S 2020-0 No Route: IV, Me abela PH 7.4 7- Total l (ANES) 1000 12:30: Volume: Her delgado mL 00 1,000, Start date: 04/08/20 7:30:00 CDT, Stop date: 04/08/20 8:30:00 CDT Vancomycin 2019- No 2000 mg: moria 7-20 infuse l 18:00: over 2.5 [place] 00 hours For adult patients only: Round to nearest 250 mg per Medical Staff approval MEDICATION WASTE Product Size: 1000 mg Product Wasted: _0__ mg Vancomycin 2019-0 No 2000 mg: Me moria 7-20 infuse l 18:00: over 2.5 [place] 00 hours For adult patients only: Round to nearest 250 mg per Medical Staff approval MEDICATION WASTE Product Size: 1000 mg Product Wasted: _0__ mg atorvastati 2019- No Notes: Mauro javon n 7-20 (Same As: l 02:00: Lipitor) gabapentin No Notes: Memor ia 7-20 (Same as: l 02:00: Neurontin) Paroxetine No 20 mg, 2 Mem oria 7-20 tab, l 02:00: Route: PO, Drug form: TAB, Bedtime, Dosing Weight 74.091, kg, Start date: 04/06/20 21:00:00 CDT, Duration: 30 day, Stop date: 05/05/20 21:00:00 CDT, 0 atorvastati 2019- No Notes: Mauro javon n 7-20 (Same As: l 02:00: Lipitor) gabapentin No Notes: Memor ia 7-20 (Same as: l 02:00: Neurontin) [place] 00 Paroxetine No 20 mg, 2 Mem oria 7-20 tab, l 02:00: Route: PO, Aniket Drug form: TAB, Bedtime, Dosing Weight 74.091, kg, Start date: 04/06/20 21:00:00 CDT, Duration: 30 day, Stop date: 05/05/20 21:00:00 CDT, 0 heparin 2019-0 No Notes: Memoria additive 7-19 Total l 25,000 unit 23:44: Concentrat Aniket [14 00 ion = 50 unit/kg/hr] unit/ ml + Premix Total Diluent volume = Sodium 500 ml Chloride Send Med 0.45% 500 Request 2 mL hours prior to next bag heparin No Notes: Memoria additive 7-19 Total l 25,000 unit 23:44: Concentrat [place] [14 00 ion = 50 unit/kg/hr] unit/ ml + Premix Total Diluent volume = Sodium 500 ml Chloride Send Med 0.45% 500 Request 2 mL hours prior to next bag Aspirin 325 No Notes: Mauro javon MG Enteric 7-19 Take with l Coated 14:00: food. [place] Tablet 00 Saline No Notes: [facility]oria Flush 0.9% 7-19 (Same as: l 14:00: BD Aniket Posiflush) Famotidine No Notes: Memor ia 7-19 (Same as: l 14:00: Pepcid) [place] 00 gabapentin 0 No Notes: Memor ia 7-19 (Same as: l 14:00: Neurontin) [place] Atrial 0 No Notes: Memoria Fibrillatio 7-19 (Same As: l n Sotalol 14:00: Betapace) Her delgaod Hydrochlori 00 de 80 MG Oral Tablet sennosides, 0 No Notes: Mauro javon [facility] 8.6 MG 7-19 (Same as: l Oral Tablet 14:00: Senokot) He rmann Docusate 0 No Notes: Memoria Sodium 100 7-19 (Same as: l MG Oral 14:00: Colace) Aniket Capsule 00 (Do Not Crush) Aspirin 325 0 No Notes: Mauro javon MG Enteric 7-19 Take with l Coated 14:00: food. [place] Tablet Saline No Notes: [facility] Flush 0.9% 7-19 (Same as: l 14:00: BD [place] 00 Posiflush) Famotidine No Notes: Memor ia 7-19 (Same as: l 14:00: Pepcid) gabapentin No Notes: Memor ia 7-19 (Same as: l 14:00: Neurontin) [place] 00 Atrial No Notes: Memoria Fibrillatio 7-19 (Same As: l n Sotalol 14:00: Betapace) Her delgado Hydrochlori 00 de 80 MG Oral Tablet sennosides, No Notes: Mauro javon [facility] 8.6 MG -19 (Same as: l Oral Tablet 14:00: Senokot) He rmann Docusate No Notes: [facility]oria Sodium 100 -19 (Same as: l MG Oral 14:00: Colace) [place] Capsule 00 (Do Not Crush) atorvastati No 10 mg = 1 M emoria n 10 mg 7-19 tab, PO, l oral tablet 12:26: Bedtime Her delgado 00 gabapentin Yes 600 mg, Mauro javon 7-19 [...] Latoya nn 00 Other Day Aspirin 81 2019-0 Yes 81 mg = 1 Me moria MG Chewable 7-19 tab, PO, l Tablet 12:26: Daily Vitamin D3 2019- Yes 1,000 Memori a 1000 intl 7-19 IntlUnit = l units oral 12:26: 1 tab, PO, H ermann tablet 00 Daily Vitamin B12 Yes 4,000 mcg, Memoria 1000 mcg 7-19 PO, Daily l oral tablet 12:26: [place] n atorvastati No 10 mg = 1 M emoria n 10 mg 7-19 tab, PO, l oral tablet 12:26: Bedtime Her delgado gabapentin 2019-0 Yes 600 mg, Mauro javon 7-19 PO, QAM l 12:26: [place] 00 Famotidine Yes 40 mg, PO, M emoria 7-19 Daily l 12:26: [place] 00 Paroxetine Yes 20 mg = 1 Me moria Hydrochlori 7-19 tab, PO, l de 20 MG 12:26: Bedtime Boyd n Oral Tablet 00 sotalol 80 No 80 mg = 1 Me moria mg oral 7-19 tab, PO, l tablet 12:26: BID [place] 00 spironolact No 25 mg = 1 M emoria one 25 mg 7-19 tab, PO, l oral tablet 12:26: Every Latoya nn 00 Other Day Aspirin 81 2019-0 Yes 81 mg = 1 Me moria MG Chewable 7-19 tab, PO, l Tablet 12:26: Daily Aniket 00 Vitamin D3 Yes 1,000 Memori a 1000 intl 7-19 IntlUnit = l units oral 12:26: 1 tab, PO, H ermann tablet 00 Daily Vitamin B12 Yes 4,000 mcg, Memoria 1000 mcg 7-19 PO, Daily l oral tablet 12:26: [place] n Saline No Notes: Memoria Flush 0.9% 7-19 (Same as: l 11:40: BD Posiflush) Saline No Notes: Memoria Flush 0.9% 7-19 (Same as: l 11:40: BD Posiflush) cephALEXin 2018-09 Yes [id number] 500mg Take 1 Univers 500 mg 10-14 capsule by ity of capsule 00:00: mouth 2 [place] [id number] (two) Medical times Branch daily. atorvastati 2018-09 Yes 10mg Take 10 mg Univers n 10 mg 1-20 by mouth. ity of tablet 12:00: [place] [address] Medical Branch PARoxetine 2019-1 Yes 20mg Take 20 mg U nivers 20 mg 1-20 by mouth. ity of tablet 12:00: [place] [address] Medical Branch sotalol 80 2018- Yes 80mg Take 80 mg U nivers mg tablet 1-20 by mouth. ity o f 12:00: [place] [address] Medical Branch Cholecalcif 2018- Yes Take by Un [place] raquel, 1-20 mouth. ity of Vitamin D3, 12:00: [place] 5,000 unit Medical tablet Branch rivaroxaban 2018-09 Yes Take by Un [place] (XARELTO 1-20 mouth. ity of ORAL) 12:00: [place] [address] Medical Branch ascorbic 2018- Yes Take by Unive rs acid 1-20 mouth. ity of (VITAMIN C 12:00: [place] ORAL) Medical Branch calcium 2018-09 Yes [facility]-20 mouth. ity of (CALCIUM 12:00: [place] 300 ORAL) Medical Branch Aspirin Aspirin 2017-0 Yes Zach [address] 7[facility]19 [facility] - 00:00: [facility]oria 00 l [facility] spironolact 2017-0 Yes 25mg Take 25 mg Univers one 25 mg 1-13 by mouth. ity o f tablet 00:00: [place] [address] Medical Branch gabapentin 2016-0 Yes TAKE 2 Unive rs 600 mg 1-02 TABLET BY ity of tablet 00:00: MOUTH 2 [place] 00 TIMES A Medical DAY FOR Branch NERVE PAIN pantoprazol 2015-09 Yes 40mg Take 40 mg Univers e 40 mg EC 2-17 by mouth. ity of tablet 00:00: [place] [address] Medical Branch Gabapentin Gabapentin Yes Zach [facility]KE 1 [facility] [...] MOUTH Memoria EVERY DAY l [facility] Sotalol HCl Sotalol HCl Yes Zach TAKE [address] [facility] [facility] TABLET BY [facility] - MOUTH Memoria TWICE A l DAY [facility] Atorvastati Atorvastati Yes Zach TAKE [address] [facility] n Calcium n Calcium [place] TABLET BY [facility] - MOUTH Memoria EVERY DAY l [facility] Immunizations Ordered Filled Immunization Date Status Comments [facility] e Immunization Name Name SARS-COV-2 COVID-19 2021-09-04 Completed Unive rsity of MODERNA BOOSTER 00:00:00 [facility] VACCINE Branch SARS-COV-2 COVID-19 2020-11-23 Completed Unive rsity of MODERNA VACCINE 00:00:00 [facility] SARS-COV-2 COVID-19 2020-10-26 Completed Unive rsity of MODERNA VACCINE 00:00:00 [facility] influenza virus 2020-06-[address] [facility] [place] vaccine, 22:06:00 inactivated influenza virus 2020-06-13 [facility], 22:06:00 inactivated Vital Signs Vital Name Observation Time Observation Value Comments Source Systolic blood 2021-05-29 18:24:00 111 mm[Hg] [facility] pressure Medicine Diastolic blood 2021-05-29 18:24:00 67 mm[Hg] [facility] Medicine Heart rate 2021-05-29 18:24:00 57 /min [facility] Body temperature 2021-05-29 18:24:00 37.06 Shabana 02-83% [facility] Body height 2021-05-29 18:24:[address] [facility] Body weight 2021-05-29 18:24:[address] [facility] BMI 2021-05-29 18:24:00 18.42 kg/m2 [facility] Temperature Oral (F) 2020-12-24 01:00:00 98.3 F Freddie Marcial Heart Rate 2020-12-24 01:00:00 Freddie Marcial Respitory Rate 2020-12-24 01:00:00 Memori al [place] Systolic (mm Hg) 2020-12-24 01:00:00 Mauro rial [place] Diastolic (mm Hg) 2020-12-24 01:00:00 Mem orial [place] Temperature Oral (F) 2020-12-23 21:00:00 98.3 F [facility] Heart Rate 2020-12-23 21:00:00 [facility] Respitory Rate 2020-12-23 21:00:00 Memori al [place] Systolic (mm Hg) 2020-12-23 21:00:00 Mauro rial [place] Diastolic (mm Hg) 2020-12-23 21:00:00 Mem orial [place] Temperature Oral (F) 2020-12-23 17:00:00 97.9 F [facility] [place] Heart Rate 2020-12-23 17:00:00 [facility] [place] Respitory Rate 2020-12-23 17:00:00 Memori al [place] Systolic (mm Hg) 2020-12-23 17:00:00 Mauro rial [place] Diastolic (mm Hg) 2020-12-23 17:00:00 Mem orial [place] Temperature Oral (F) 2020-12-22 05:00:00 97.9 F [facility] Heart Rate 2020-12-22 05:00:00 [facility] Respitory Rate 2020-12-22 05:00:00 Memori al [place] Systolic (mm Hg) 2020-12-22 05:00:00 Mauro rial [place] Diastolic (mm Hg) 2020-12-22 05:00:00 Mem orial [place] Temperature Oral (F) 2020-12-22 01:00:00 97.4 F [facility] [place] Heart Rate 2020-12-22 01:00:00 [facility] Respitory Rate 2020-12-22 01:00:00 Memori al [place] Systolic (mm Hg) 2020-12-22 01:00:00 Mauro rial [place] Diastolic (mm Hg) 2020-12-22 01:00:00 Mem orial [place] Temperature Oral (F) 2020-12-21 21:00:00 97.5 F [facility] [place] Heart Rate 2020-12-21 21:00:00 [facility] Respitory Rate 2020-12-21 21:00:00 Memori al [place] Systolic (mm Hg) 2020-12-21 21:00:00 Mauro rial [place] Diastolic (mm Hg) 2020-12-21 21:00:00 Mem orial [place]et Height 2020-12-19 03:08:00 154.94 cm [facility] [place] Weight 2020-12-19 03:08:00 [facility] BMI Calculated 2020-12-19 03:08:00 Memori al [place] Respitory Rate 2020-12-11 17:00:00 [facility]ori al [place] Systolic (mm Hg) 2020-12-11 17:00:00 Mauro rial [place] Diastolic (mm Hg) 2020-12-11 17:00:00 Mem orial [place]et Respitory Rate 2020-12-11 16:55:00 Memori al [place] Systolic (mm Hg) 2020-12-11 16:55:00 Mauro rial [place] Diastolic (mm Hg) 2020-12-11 16:55:00 Mem orial [place] Respitory Rate 2020-12-11 16:50:00 Memori al Aniket Systolic (mm Hg) 2020-12-11 16:50:00 Mauro rial [place] Diastolic (mm Hg) 2020-12-11 16:50:00 Mem orial [place] Height 2020-12-11 12:31:00 162.56 cm [facility] [place] Weight 2020-12-11 12:31:00 [facility] [place] BMI Calculated 2020-12-11 12:31:00 Memori al [place] Temperature Oral (F) 2020-06-24 14:12:00 98.5 F [facility] Heart Rate 2020-06-24 14:12:00 [facility] Respitory Rate 2020-06-24 14:12:00 Memori al [place] Systolic (mm Hg) 2020-06-24 14:12:00 Mauro rial [place] Diastolic (mm Hg) 2020-06-24 14:12:00 Mem orial [place] Heart Rate 2020-06-24 08:34:00 [facility] [place] Respitory Rate 2020-06-24 08:34:00 Memori al [place] Systolic (mm Hg) 2020-06-24 08:34:00 Mauro rial [place] Diastolic (mm Hg) 2020-06-24 08:34:00 Mem orial Aniket Temperature Oral (F) 2020-06-24 04:57:00 98.3 F [facility] Heart Rate 2020-06-24 04:57:00 [facility] [place] Respitory Rate 2020-06-24 04:57:00 Memori al [place] Systolic (mm Hg) 2020-06-24 04:57:00 Mauro rial [place] Diastolic (mm Hg) 2020-06-24 04:57:00 Mem orial Aniket Temperature Oral (F) 2020-06-24 01:08:00 97.6 F [facility] [place] Systolic (mm Hg) 2020-06-16 07:00:00 Mauro rial [place] Diastolic (mm Hg) 2020-06-16 07:00:00 Mem orial Aniket Systolic (mm Hg) 2020-06-16 05:00:00 Mauro rial [place] Diastolic (mm Hg) 2020-06-16 05:00:00 Mem orial [place] Temperature Oral (F) 2020-06-16 04:05:00 98.2 F [facility] [place] Systolic (mm Hg) 2020-06-16 03:00:00 Mauro rial Aniket Diastolic (mm Hg) 2020-06-16 03:00:00 Mem orial [place] Temperature Oral (F) 2020-06-16 01:23:00 98.5 F [facility] Temperature Oral (F) 2020-06-15 21:26:00 98.1 F [facility] [place] Respitory Rate 2020-06-15 21:00:00 Memori al Aniket Respitory Rate 2020-06-15 17:00:00 Memori al [place] Respitory Rate 2020-06-15 13:00:00 Memori al [place] Height 2020-06-13 21:59:00 154.94 cm [facility] [place] Weight 2020-06-13 21:59:00 [facility] BMI Calculated 2020-06-13 21:59:00 Memori al [place] Heart Rate 2020-06-09 07:48:00 [facility] Heart Rate 2020-06-09 07:35:00 [facility] Height 2020-06-08 21:06:00 154.94 cm [facility] [place] Weight 2020-06-08 21:06:00 [facility] [place] BMI Calculated 2020-06-08 21:06:00 Memori al Aniket Respitory Rate 2020-06-05 17:30:00 Memori al [place] Systolic (mm Hg) 2020-06-05 17:30:00 Mauro rial [place] Diastolic (mm Hg) 2020-06-05 17:30:00 Mem orial Aniket Respitory Rate 2020-06-05 17:25:00 Memori al [place] Systolic (mm Hg) 2020-06-05 17:25:00 Mauro rial [place] Diastolic (mm Hg) 2020-06-05 17:25:00 Mem orial [place] Respitory Rate 2020-06-05 17:20:00 Memori al [place] Systolic (mm Hg) 2020-06-05 17:20:00 Mauro rial [place]iket Diastolic (mm Hg) 2020-06-05 17:20:00 Mem orial [place] Height 2020-06-05 13:41:00 154.94 cm [facility] Weight 2020-06-05 13:41:00 [facility] [place] BMI Calculated 2020-06-05 13:41:00 Memori al [place] Systolic (mm Hg) 2020-04-11 20:00:00 Mauro rial [place] Diastolic (mm Hg) 2020-04-11 20:00:00 Mem orial [place]iket Systolic (mm Hg) 2020-04-11 19:00:00 Mauro rial [place] Diastolic (mm Hg) 2020-04-11 19:00:00 Mem orial [place]iket Systolic (mm Hg) 2020-04-11 18:00:00 Mauro rial [place] Diastolic (mm Hg) 2020-04-11 18:00:00 Mem orial Aniket Respitory Rate 2020-04-11 17:00:00 Mem[facility] [place] Respitory Rate 2020-04-11 15:00:00 [facility] [place] Respitory Rate 2020-04-11 14:00:00 [facility] [place] Temperature Oral (F) 2020-04-11 09:00:00 96.0 F [facility] [place] Temperature Oral (F) 2020-04-11 04:44:00 98.2 F [facility] Temperature Oral (F) 2020-04-11 01:00:00 98.5 F [facility] Heart Rate 2020-04-08 09:00:00 [facility] [place] Heart Rate 2020-04-08 05:16:00 [facility] Heart Rate 2020-04-08 01:29:00 [facility] Respitory Rate 2020-04-07 09:03:00 Memori [facility] [place] Systolic (mm Hg) 2020-04-07 09:03:00 Mauro rial [place] Diastolic (mm Hg) 2020-04-07 09:03:00 Mem orial [place]iket Respitory Rate 2020-04-07 07:14:00 [facility] [place] Systolic (mm Hg) 2020-04-07 07:14:00 Mauro rial [place]iket Diastolic (mm Hg) 2020-04-07 07:14:00 Mem orial [place] Respitory Rate 2020-04-07 06:14:00 Memori [facility] [place] Systolic (mm Hg) 2020-04-07 06:14:00 Mauro rial [place]iket Diastolic (mm Hg) 2020-04-07 06:14:00 Mem orial [place] Temperature Oral (F) 2020-04-07 05:02:00 98.6 F [facility] Temperature Oral (F) 2020-04-07 00:43:00 98.6 F [facility] [place] Temperature Oral (F) 2020-04-06 22:48:00 97.8 F [facility] [place] Height 2020-04-06 07:57:00 154.94 cm [facility] BMI Calculated 2020-04-06 07:57:00 [facility] [place] Weight 2020-04-06 07:57:00 [facility] Heart Rate 2020-04-06 07:57:00 [facility] [place] Procedures Procedure Date / Time Performing Clinician Source Performed SARS-COV-2 COVID-19 2021-09-04 19:21:19 [facility] BOOSTER,0.25ML,IM (MODERNA) Heart [facility] [place] procedure<sup>1</sup> Knee replacement [facility] Plan of Care Planned Activity Planned Date Details Comments Source Future Scheduled 2021-05-29 TETANUS SHOT (ADULT) [facility] Test 08:51:49 [code = TETANUS SHOT Medicin e (ADULT)] Future Scheduled 2021-05-29 BMI FOLLOW UP PLAN [facility] Test 08:51:49 [code = BMI FOLLOW UP Medici ne PLAN] Future Scheduled 2021-05-29 Hepatitis C screening [facility] Test 08:51:49 (procedure) [code = Medicine 023993979] Future Scheduled 2021-05-29 ZOSTER VACCINE (1 of [facility] of Test 08:51:49 2) [code = ZOSTER Medicine VACCINE (1 of 2)] Future Scheduled 2021-05-29 FALL SCREEN [code = [facility] of Test 08:51:49 FALL SCREEN] Medicine Future Scheduled 2021-05-29 Screening for [facility] Col lege of Test 08:51:49 osteoporosis Medicine (procedure) [code = 101270163] Future Scheduled 2021-05-29 [facility] [code = MEDICARE AWV Medicin e (Initial)] Future Scheduled 2021-05-29 FLU VACCINE > 6 MONTHS B [facility] of Test 08:51:49 [code = FLU VACCINE > Medici ne 6 MONTHS] Encounters Start End Encounter Admission Attending Care Care Encounter Source Date/Time Date/Time Type Type Clinicians Facility Department ID 2021-09-04 2021-09-04 Imm/Inj Vaccine, Ang Db Cbc [facility] [id number]. [id number] Univers 13:20:00 13:30:00 Visit Tammi Favio [facility] [id number] [facility] [id number] Mak as JANET?BLEA [phone] [address] MEDICAL OFFICE BUILDING 2021-09-04 2021-09-04 Outpatient R [facility] [id number] Univers 13:20:00 13:20:00 [id number] [facility] 2021-09-04 2021-09-04 [facility] [id number] Univers 13:20:00 13:20:00 [facility] 2021-09-02 2021-09-02 Outpatient R [facility] [id number] Univers 16:10:00 16:10:00 [id number] [facility] 2021-09-02 2021-09-02 [facility] [id number] Univers 16:10:00 16:10:00 ATTENDING [facility] 2021-05-29 2021-05-29 Office [place] EARLY [id number] [place] [address] 13:09:04 14:54:22 Visit LYSSA Chaves [id number] Co llege [id number] [facility] 510 e 2021-05-29 2021-05-29 Outpatient [facility]AVON [facility] [id number] 00:00:00 00:00:00 RADHA 2021-04-03 2021-04-03 Refkaryn Arias, UTP [id number] 00:00:00 00:00:[address] [id number] 2021-04-03 2021-04-03 RefGi Rao UTP 6410 [id number] [place] 00:00:00 00:00:[address] [id number] Health [id number] 2021-04-02 2021-04-02 Telephone Ameena, UTP 6410 [id number] 00:00:00 00:00:[address] [id number] 2021-04-02 2021-04-02 Telephone Ameena, UTP 6410 [id number] [place] 00:00:00 00:00:[address] [id number] Health [id number] 2020-12-19 2020-12-24 Inpatient [facility] [id number] Memoria 02:58:00 03:25:00 dez Mac l [facility] 2020-12-18 2020-12-23 Inpatient U [facility] MED [id number] Memoria 21:58:00 22:25:00 tatiana Short [facility] 2020-12-11 2020-12-12 [facility] [id number] Memoria 12:33:00 04:59:00 dez Marcial 01 l [facility] 2020-12-11 2020-12-11 Outpatient AMEENA, [facility] CAR [id number] [facility] 07:33:00 23:59:00 MANUEL 2020-11-23 2020-11-23 Outpatient [facility] [id number] Univers 14:05:00 14:05:00 [facility] 2020-10-26 2020-10-26 Outpatient Dez CAMACHO, [facility] [id number] Univers 14:00:00 14:00:00 ADAMARIS [facility] 2020-06-08 2020-06-24 Inpatient nullFlavo [facility] [id number] Memoria 20:03:00 20:23:00 dez Marcial 64 l [facility] 2020-06-05 2020-06-06 Outpatient nullFlavo [facility] [id number] Memoria 13:41:00 04:59:00 dez Marcial 00 [facility] 2020-06-05 2020-06-05 Outpatient MARIA C [facility] [id number] [facility] 08:41:00 23:59:00 CJ BERRY 2020-04-06 2020-04-[address] [facility] [id number] Memoria 07:57:00 22:59:00 dez Marcial 01 [facility] 2020-04-08 2020-04-08 Outpatient [facility] [id number] [address] [place] [address] 11:00:00 11:00:00 Eduardo [id number] [facility] 2020-03-26 2020-03-26 Outpatient R [facility] [id number] Univers 10:30:00 10:30:00 [id number] [facility] 2020-03-26 2020-03-26 Outpatient R MAGGIE [facility] [id number] Univers 10:30:00 10:30:00 WONG [facility] 2018-10-19 2018-10-19 [facility] [id number] 08:00:00 08:00:00 [facility] 2018-08-28 2018-08-28 [facility] [id number] 09:00:00 09:00:00 [facility] 2018-05-02 2018-05-02 Outpatient Mercedes Longt 15 [id number] [facility] [address] 14:00:00 14:00:00 [facility] 2018-04-06 2018-04-06 Outpatient Mercedes Longt [id number] [facility] [address] 09:00:00 09:00:00 t [facility] Results Test Description Test Time Test Comments Results Result [facility] e Comments MR, ABDOMEN, 2021-05-20 PANCREAS MASS WITH 0 MRI ABDOMEN W 18:53:00 WO CONTRAST [facility] MRCP Unlisted [facility] MEDICAL Reason for CENTERName: DAJOSELUISRITY, Exam - Click FRANCE Paulino : Yes and Enter 1945 Sex: Reason F Below->Yes Unlisted FINAL Reason for REPORT PATIENT ID: Exam->MASS OF [id number] TECHNIQUE: MRI PANCREAS of the abdomen and MRCP (K86.89) with 3-D volume rendering WITHOUT and WITH intravenous contrast. INDICATION: Unlisted Reason for ExamMASS OF PANCREAS (K86.89). COMPARISON: Abdominal MRI 10/05/2019. FINDINGS: LOWER THORAX: Unremarkable. LIVER: No hepatic signal abnormality. No focal hepatic lesions. BILIARY: Prior cholecystectomy. Unchanged intra and extrahepatic biliary ductal dilation without filling defects, tapering to the ampulla. Unchanged mildly prominent cystic duct remnant.SPLEEN: No splenomegaly.PANCREAS: Multiple cystic lesions throughout the pancreas. None of the cystic lesions demonstrate any solid or nodular components, non are convincingly changed from prior exam given differences in technique, largest cystic lesion, in the pancreatic head, is approximately 1.7 x 1.5 cm and contains thin internal septations. The next largest cystic lesions are 1.0 and 0.7 cm in the proximal pancreatic body and tail, both of which are unilocular. No pancreatic ductal dilatation. ADRENALS: No adrenal nodules.KIDNEYS/URETERS : An 11 mm left upper pole renal cyst. Left renal cortical scarring. No hydronephrosis or solid mass lesions. PERITONEUM/RETROPERITON EUM: No free fluid.LYMPH NODES: No lymphadenopathy.VESSELS : Unremarkable. GI TRACT: Prior Aruna-en-Y gastric bypass. No distention or wall thickening. BONES AND SOFT TISSUES: Degenerative changes of the visualized spine. Suggestion of multilevel mild compression deformities in the lumbar spine, similar to 10/05/2019, none of which have any marrow edema. Partially visualized fixation hardware in the left hip. 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 No pancreatic ductal dilation or any solid or nodular components. 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 Suggestion of multilevel mild compression deformities in the lumbar spine, no convincing change given differences in technique compared to 10/05/2019, none of which have any marrow edema to suggest that they are acute. Signed: Gaston Dos Santos Verified Date/Time: 05/29/2021 18:53:47 Reading Location: [address] Body Reading Room PANEL [address] [place] [id number] [place] 13:11:[address] [facility] 6 [place] 13:11:[address] [facility] 6 [place] 13:11:[address] [facility] 6 [place] 13:11:[address] [facility] 6 [place] 13:11:[address] [facility] 6 [place] 13:11:[address] [facility] 6 [place] 13:11:00 CHEM PANEL 2021-[facility]0 [facility]5 [facility] [place] 13:11:00 [facility] PANEL 2.6 [facility] [place] 13:11:00 CHEM PANEL 0 61 [facility] [place] 13:11:00 CHEM PANEL 0 73 [facility] [place] 13:11:00 CHEM PANEL 0.5 [facility] [place] 13:11:[address] [facility] 6 [place] 13:11:[address] [facility] 6 [place] 13:11:00 CHEM PANEL 2020-12-23 13:11:00 Test Item Value Reference Range Interpretation Comme nts A/G Ratio (test code = A/G Ratio) 0.9 1 0.7-1.6 [facility] RPPPX9549-59-83 13:11:0087[facility] 2020-12-23 13:11:0017[facility] OVMUV3249-49-60 13:11:0097[facility] EQWDL3210-44-86 13:11:00 Test Item Value Reference Range Interpretation Comments B/C Ratio (test code = B/C Ratio) 26 1 6-25 [facility] NHNLM1073-47-67 13:11:001.8[facility] PANEL 2020-12-23 13:11:003.4[facility] WhfdclgMPAKEYYFPV8201-50-30 13:11:0056.9[facility] UrqmnirGBRPIXVPHY3211-05-09 13:11:0028.8[facility] FuggzoeACNBJDSYCR8138-82-63 13:11:0010.4[facility] QsezksdMHPBRKLQYB3237-98-59 13:11:002.8[facility] [place] TLYCTMESXY7805-97-19 13:11:001.1[facility] HvcdcbdIVXCTLNVAM8845-26-14 13:11:003.4 [facility] FcgfhxnCHWBNUIALV1107-73-12 13:11:001.7[facility]annHEMATOLOGY 2020-12-23 13:11:000.6[facility] NuzeszhGARASPBLOL8075-13-57 13:11:000.2[facility] ZbxbqnnEWWFBPFEYB3150-34-78 13:11:000.1[facility] RrgdjooXIPTSFECXQ2265-62-70 13:11:006.0[facility] NabmlpuGSVKROMCXJ4924-68-70 13:11:003.86[facility] [place] FKODQEUBCS2261-90-05 13:11:0011.1[facility] KbvolalVSCEQKWSDM0870-10-14 13:11:00 33.1[facility] YaykyxlCTYCVKJCNF7122-70-71 13:11:0085.8[facility]annHEMATOLOGY 2020-12-23 13:11:00 Test Item Value Reference Range Interpretation Comments MCH (test code = MCH) 28.8 pg 27.0-31.0 [facility] WulaeqtTLQJAQZFLQ1450-27-74 13:11:0033.6[facility]annHEMATOLOGY 2020-12-23 13:11:0019.4[facility] SxlfsglKTMEUMDIMQ0160-90-49 13:11:78122Dwmkthvd OdqwebzATKPLCRCTP6350-35-57 13:11:0010.2[facility]CHE[facility] PZXCU3229-16-02 13:11:0084[facility] EXZGA8696-63-72 13:11:000.65[facility] AVTCX6093-92-08 13:11:39355Yiuvogkk [facility] HRFWI5458-72-07 13:11:003.3 [facility] CRRYJ2385-59-08 13:11:41778Qnpulnou [facility]annCHE[facility] PANEL 2020-12-23 13:11:0030[facility] CIYXH3098-35-61 13:11:008.3[facility] KUQRA5983-26-92 13:11:005.5[facility] NAWSR3567-80-06 13:11:002.6[facility] RLMKF2379-73-82 13:11:0061[facility] UFIQY1768-74-78 13:11:0073[facility] FLLPN2023-22-48 13:11:000.5 [facility] JALOB8439-83-69 13:11:007.3[facility]annCHE[facility] PANEL 2020-12-23 13:11:002.9[facility] QGPQX5186-77-94 13:11:00 Test Item Value Reference Range Interpretation Comments A/G Ratio (test code = A/G Ratio) 0.9 1 0.7-1.6 [facility] CMIWJ5673-79-43 13:11:0087[facility]CHE[facility] PANEL 2020-12-23 13:11:0017[facility] TOPQX4762-15-35 13:11:0097[facility] DQZDW9251-77-26 13:11:00 Test Item Value Reference Range Interpretation Comments B/C Ratio (test code = B/C Ratio) 26 1 6-25 [facility] NLJWJ4449-79-61 13:11:001.8[facility]annCHE[facility] PANEL 2020-12-23 13:11:003.4[facility] PkejdnkGCYLSVYGOS0723-25-30 13:11:0056.9[facility] SxxjjqmROIWTFBWOH5370-80-74 13:11:0028.8[facility] RgrsjsjNXHSYWNHQR4396-54-79 13:11:0010.4[facility] GxzaduxUEBFFZFJFM2819-22-35 13:11:002.8[facility] [place] XDNJRBBZXR4730-75-37 13:11:001.1[facility] VjelnjyFNKBWHBNBB3580-29-38 13:11:003.4 [facility] AhkwkcrCFOGCQUCAD0176-84-94 13:11:001.7[facility]annHEMATOLOGY 2020-12-23 13:11:000.6[facility] WspfxlfZMUDFOPJZX8935-72-78 13:11:000.2[facility] VttcjieSAPNHCCTKJ3172-73-76 13:11:000.1[facility] HyssaztNXORRRLBPY0148-98-10 13:11:006.0[facility] IvbibfbLQCTHKRUVV1493-84-08 13:11:003.86[facility] [place] IKIRMUGOWH4816-52-58 13:11:0011.1[facility] LvhpanlIWMJVOGXOV7811-45-23 13:11:00 33.1[facility] KemucwcLRQIOPQLGB0921-25-30 13:11:0085.8[facility]annHEMATOLOGY 2020-12-23 13:11:00 Test Item Value Reference Range Interpretation Comments MCH (test code = MCH) 28.8 pg 27.0-31.0 [facility] JtittyzESWILJINGK8067-65-11 13:11:0033.6[facility]annHEMATOLOGY 2020-12-23 13:11:0019.4[facility] IxebxweIPNONTSLJF3085-18-73 13:11:74300Savqxqqz AstnedwMUATTULKNS1996-61-37 13:11:0010.2[facility]CHE[facility] TJIOZ8010-70-27 08:13:001.7[facility]annCHE[facility] JYNAW9528-17-61 08:13:47965Tfibjezn [facility]annCHE[facility] ZONEI8514-61-25 08:13:0017[facility] RDTUD0854-04-68 08:13:000.72 [facility] VSFPA4712-36-68 08:13:96279Ccoijlpw [facility]annCHEM PANEL 2020-12-22 08:13:003.5[facility]CHE[facility] VSKFV7597-42-04 08:13:30401Ekprnuxg [facility]annCHE[facility] SBZQJ8979-05-48 08:13:0028[facility] HGKWQ4808-94-50 08:13:008.5[facility] XFUWM0192-40-17 08:13:007.9[facility]CHE[facility] OYFPN3171-76-74 08:13:0082[facility]CHE[facility] ENRZJ1139-73-08 08:13:002.9 [facility] ZhoeipvNZFCGIPBGL3521-15-42 08:13:0067.1[facility]annHEMATOLOGY 2020-12-22 08:13:0021.6[facility] VpsrkrwFZLJARRKBM4321-97-10 08:13:008.6[facility] VosznlqGIIUSGRBJK2141-75-72 08:13:001.7[facility] AlqhteiPDEAVZONAX2571-00-24 08:13:001.0[facility] XnuibduNDNMQVXQXZ6521-64-70 08:13:004.2[facility] [place] OENESWRBUV9016-30-79 08:13:001.4[facility] AiqcmcqKVCITWPKJQ7684-33-88 08:13:000.5 [facility] RosaebrVSKUESTQCM8709-72-99 08:13:000.1[facility]annHEMATOLOGY 2020-12-22 08:13:000.1[facility] VizibbaDUKREWOWGU6533-75-04 08:13:006.3[facility] UsffeldPVQQFJVPDE2363-26-29 08:13:003.91[facility] WwjrwkoFJNWNAMVTL1618-32-19 08:13:0011.1[facility] QhhtxjuYEEXGTGXFQ7102-43-17 08:13:0033.7[facility] [place] JURPQDRHNR8087-50-83 08:13:0086.1[facility] MzylwddKVEHPTFIUC5152-41-04 08:13:00 Test Item Value Reference Range Interpretation Comments MCH (test code = MCH) 28.5 pg 27.0-31.0 [facility] GvtxhzbPTJXOZADEJ7109-73-41 08:13:0033.1[facility]annHEMATOLOGY 2020-12-22 08:13:0019.3[facility] UkutbtpWFPBGAVECX8463-21-02 08:13:64212Pwwhapeq HfgcyddGPUAMDNGBL8484-73-83 08:13:0010.1[facility]annCHE[facility] DFHON3692-83-51 08:13:001.7[facility]annCHE[facility] GJWND7072-82-35 08:13:06796Unnnmsyl HermannCHEM SMCLS5373-78-68 08:13:0017[facility]annCHE[facility] TQWSQ2313-03-88 08:13:000.72 [facility]CHE[facility] DVTBO0243-45-17 08:13:21516Zkonlevi HermannCHEM PANEL 2020-12-22 08:13:003.5[facility]annCHEM CHCDN8919-65-67 08:13:51977Wevxopeq [facility]annCHE[facility] AERVE8407-81-02 08:13:0028[facility]CHE[facility] HFRRW5752-64-18 08:13:008.5[facility]CHE[facility] KGZZR0783-43-01 08:13:007.9[facility]CHE[facility] SPLXR5332-52-75 08:13:0082[facility]annCHE[facility] HBAUO9788-40-79 08:13:002.9 [facility] ErqvpdjMFUNSKUJSM9789-43-55 08:13:0067.1[facility]annHEMATOLOGY 2020-12-22 08:13:0021.6[facility] RallxdaVOBLYSBLBC1320-26-74 08:13:008.6[facility] JneeodxXGWIYDCUGP2303-87-09 08:13:001.7[facility] BqcvphlPGBKLHGVDL9635-02-21 08:13:001.0[facility] EcbmvvjVVQWVOFJNK0356-68-78 08:13:004.2[facility] [place] VYZAILPIEX8929-45-81 08:13:001.4[facility] IrlfyfsIFSNFDQITB9680-11-52 08:13:000.5 [facility] YkivbyxQHZIOYXNBB3041-55-63 08:13:000.1[facility]annHEMATOLOGY 2020-12-22 08:13:000.1[facility] XmtsonkFZUXUGZCJR8881-53-46 08:13:006.3[facility] YzduxwzARWQIRYDRB5582-59-54 08:13:003.91[facility] NlqkcevNGYMNUQLFF4790-78-72 08:13:0011.1[facility] MamthtyZHKZPYCCQV4512-43-29 08:13:0033.7[facility] [place] KVQLWIGHXP9259-92-89 08:13:0086.1[facility] KzwyyveMCAIGJQWST3714-88-16 08:13:00 Test Item Value Reference Range Interpretation Comments MCH (test code = MCH) 28.5 pg 27.0-31.0 [facility] GvgnvgsILBQLUTXZE6843-25-26 08:13:0033.1[facility]annHEMATOLOGY 2020-12-22 08:13:0019.3[facility] SkvlfqtNZPSNVEIFH9719-90-75 08:13:73126Pogotnif IpaksiqWYTQBMTAYO8500-58-83 08:13:0010.1[facility]annCHEM YYMKB9805-00-75 10:42:002.7[facility]annCHE[facility] KXCCM1743-22-18 10:42:0083[facility]annCHE[facility] YUEPL7829-72-15 10:42:0010[facility]annCHE[facility] AQPXS5828-98-04 10:42:000.55 [facility]annCHE[facility] AKKHA0360-49-93 10:42:69888Vmetpdem HermannCHEM PANEL 2020-12-21 10:42:004.2[facility]annCHEM ATBCO7221-88-90 10:42:09383Lmxpkima HermannCHEM JFLAI0310-69-91 10:42:0025[facility]annCHE[facility] VXOZG5171-58-04 10:42:007.9[facility]CHE[facility] UPKXT9157-46-60 10:42:0011.2[facility]CHE[facility] NMXUC3046-25-69 10:42:0092[facility]annCHE[facility] RQCVL5468-60-58 10:42:001.8 [facility] IupcricKPUSNYMUNT4702-94-92 10:42:006.6[facility]annHEMATOLOGY 2020-12-21 10:42:004.22[facility] DavzpocEAVXTVQHIX3697-69-07 10:42:0011.8[facility] OaqqpseYRZZBSZJAJ7523-96-19 10:42:0036.0[facility] FiprqfkROAKQUFDOM2735-59-80 10:42:0085.3[facility] YqjnuktAWHXRVSPKR1442-42-61 10:42:00 Test Item Value Reference Range Interpretation Comments MCH (test code = MCH) 27.8 pg 27.0-31.0 [facility] AgzbuehBXLORSIUTP5726-50-47 10:42:0032.6[facility]annHEMATOLOGY 2020-12-21 10:42:0019.5[facility] LtncblyWMZCLYCYYW2971-73-92 10:42:30360Vxpsjrep GpjnxnlMMXUQTPYTZ3386-24-13 10:42:0010.0[facility] ZohbvyvVYOSQNLUPK9141-29-67 10:42:0056.9[facility] ArhxqelQVQTODDWGR4490-76-25 10:42:0028.1[facility] [place] HEAUJBRGPU7277-86-24 10:42:0010.4[facility] NpxvnyaZSCEUUPPCM7319-65-47 10:42:00 3.5[facility] CrtwgycHVZQNGKJSL4658-04-89 10:42:001.1[facility]annHEMATOLOGY 2020-12-21 10:42:003.8[facility] QptwacuIUBYSTKZCB0798-66-94 10:42:001.9[facility] PwsmdzuSKGJEFPSCN6362-92-17 10:42:000.7[facility] TwugzkwVEPUDPROHE3697-15-89 10:42:000.2[facility] FnowboqCRYRXWUZMC4715-33-73 10:42:000.1[facility]annCHEM FSERS7350-67-21 10:42:002.7[facility]annCHE[facility] PHAXS3617-36-64 10:42:0083 [facility]CHE[facility] ACPSN3638-73-27 10:42:0010[facility]annCHEM PANEL 2020-12-21 10:42:000.55[facility]annCHEM GWWKE8007-30-92 10:42:17265Ehztwcjr HermannCHEM NBIBC7966-35-10 10:42:004.2[facility]annCHE[facility] IXXQB5954-56-84 10:42:18893Napqqyhh [facility]annCHEM PYTGL9503-25-58 10:42:0025[facility]annCHE[facility] SYTOB5562-04-88 10:42:007.9[facility]annCHE[facility] XOFFF1698-91-77 10:42:0011.2 [facility]CHE[facility] IKLZK7040-12-68 10:42:0092[facility]annCHEM PANEL 2020-12-21 10:42:001.8[facility] CmnxasuWGTNQXNGWN0265-78-52 10:42:006.6[facility] YxgkbatXZUDLXHFEL6704-91-48 10:42:004.22[facility] HsrtviiUEHSHXGZMZ0650-93-28 10:42:0011.8[facility] YigznflKVDNXXWQAE2442-82-55 10:42:0036.0[facility] [place] NTJQDPIRFA7616-67-50 10:42:0085.3[facility] FspentlTCZWGHGQEU8101-48-05 10:42:00 Test Item Value Reference Range Interpretation Comments MCH (test code = MCH) 27.8 pg 27.0-31.0 [facility] JyatcepDLAJGOSKVJ9284-30-33 10:42:0032.6[facility]annHEMATOLOGY 2020-12-21 10:42:0019.5[facility] UpvkpuzXSLXBJEIMV8995-43-73 10:42:81227Cdpetcke AdarzzuAJFRCZLUYK4289-27-21 10:42:0010.0[facility] AcvuxnwDVMBHLDMUO0916-54-13 10:42:0056.9[facility] OojfcexDNIWWQKNGW4626-46-52 10:42:0028.1[facility] DJBVNDIIIU7562-43-75 10:42:0010.4[facility] JhtfdlxPQVKAPRDXS0505-57-16 10:42:00 3.5[facility] DznytxhTPMCFGPCBO1979-35-25 10:42:001.1[facility]annHEMATOLOGY 2020-12-21 10:42:003.8[facility] YfzioloFKSVNWSSPW2070-41-40 10:42:001.9[facility] PzbgbimULSBYRWTLW9261-22-81 10:42:000.7[facility] IxakvmkUJLRJNUSRX8887-67-44 10:42:000.2[facility] LzpxrmvGCMCMWKUZW8006-93-21 10:42:000.1[facility]annCHE[facility] YLWPD4050-40-74 11:26:001.9[facility]annCHEM OYZJT0636-88-73 11:26:0093 [facility]CHE[facility] QKNTP6012-19-56 11:26:0010[facility]annCHEM PANEL 2020-12-20 11:26:000.62[facility]annCHEM IOXGA3358-98-00 11:26:10542Wizijrlv [facility]annCHE[facility] XFFTD1478-50-04 11:26:004.2[facility]annCHE[facility] QCPJW7054-17-33 11:26:99147Rzujomov [facility]CHE[facility] BGWLC1304-73-49 11:26:0031[facility]CHE[facility] WGINZ0907-51-41 11:26:005.2[facility]CHE[facility] TJVDY8815-90-21 11:26:007.7 [facility] ZQBFZ6618-05-20 11:26:0089[facility]annCHEM PANEL 2020-12-20 11:26:002.0[facility] DyvvoigKQKBTOOHZS1964-78-02 11:26:005.5[facility] GwqivaaKMHSYFPKWS9123-78-03 11:26:003.84[facility] DmnyfwlUIDNMWNFQI5194-33-48 11:26:0010.9[facility] ZutazquBVFMBNKPJB6857-48-23 11:26:0033.3[facility] AEAEWMPUYU8627-32-40 11:26:0086.8[facility] OzpzcsnBNKONEWZGJ8495-14-02 11:26:00 Test Item Value Reference Range Interpretation Comments MCH (test code = MCH) 28.5 pg 27.0-31.0 [facility] OilacdtIOKYJEZUIY9349-58-83 11:26:0032.8[facility]annHEMATOLOGY 2020-12-20 11:26:0019.5[facility] QlpozhqBJFFSSEDYR8351-23-66 11:26:74985Faqycdat ZvmqhzeSNLMVTQGNX1853-53-66 11:26:0010.4[facility] ZydtlhrZDSCLNNUXY4462-60-72 11:26:0061.7[facility] BctxuhfAKDFVUQUXK8032-20-57 11:26:0020.3[facility] [place] WZKWKNWGTR1937-78-21 11:26:0012.8[facility] VkhnoesFEZUEXNQJS7058-05-18 11:26:00 4.1[facility] PimscvyUYQDAKSVMR0064-15-71 11:26:001.1[facility]annHEMATOLOGY 2020-12-20 11:26:003.4[facility] NnuysxzWQQIOCQQMU1694-46-66 11:26:001.1[facility] ZgljmvoOWRXHFIBAY4571-56-15 11:26:000.7[facility] ExgqwhhWKYTELPCKG8422-60-33 11:26:000.2[facility] MkuxepyBSOTYURWTP9809-55-70 11:26:000.1[facility]annCHEM UFYCB1978-83-56 11:26:001.9[facility]annCHEM VZLDS5160-04-16 11:26:0093 [facility]CHE[facility] USLNG3673-08-32 11:26:0010[facility]annCHEM PANEL 2020-12-20 11:26:000.62[facility]annCHEM NODOF0536-85-98 11:26:04074Bgecomqf [facility]CHE[facility] RZMCN7659-70-41 11:26:004.2[facility]annCHE[facility] ZLRPV5090-51-34 11:26:74966Expcukxd [facility]annCHE[facility] CPGKA6557-57-09 11:26:0031[facility]annCHE[facility] XBUEG5593-84-19 11:26:005.2[facility]annCHE[facility] EYHRQ2109-52-27 11:26:007.7 [facility]CHE[facility] CYBRM4393-22-88 11:26:0089[facility]annCHEM PANEL 2020-12-20 11:26:002.0[facility] PvwnloaCIICRUQGPZ2022-47-00 11:26:005.5[facility] VjutldnNEMHAELBEM8393-50-36 11:26:003.84[facility] GivksdcTXCIWOQRHI9241-58-72 11:26:0010.9[facility] EfvdgmuZIXCXMFDQO6238-09-02 11:26:0033.3[facility] FGWGZPTAEH2546-24-02 11:26:0086.8[facility] VrhepacKKHTHOJHBS9179-72-55 11:26:00 Test Item Value Reference Range Interpretation Comments MCH (test code = MCH) 28.5 pg 27.0-31.0 [facility] IoqgpnfNDAMZJHSAY3695-56-43 11:26:0032.8[facility]annHEMATOLOGY 2020-12-20 11:26:0019.5[facility] FcmwtouVDDELMZQDW7243-38-33 11:26:24085Bvyvpnnb RvnngbxFOEQFGCDSM1068-27-28 11:26:0010.4[facility] EzptfrrLIVAJRWYGL8692-20-52 11:26:0061.7[facility] HrtmjpaNNAYWTFQBH0801-50-34 11:26:0020.3[facility] ILDMIKMEQM1648-43-51 11:26:0012.8[facility] ZyydhjqYUTRNEUGQX1178-24-93 11:26:00 4.1[facility] OycagbuQPXTACGBOG2371-02-42 11:26:001.1[facility]annHEMATOLOGY 2020-12-20 11:26:003.4[facility] IhjjuvrZAWPWXQTXU9396-67-00 11:26:001.1[facility] BnzktsyVCQDWFEQMX8656-72-66 11:26:000.7[facility] WkiokerULELHKTBCV9922-70-74 11:26:000.2[facility] SnimrngKXVTGUXZHX5656-98-56 11:26:000.1[facility] CYJJSPGQFALZ5584-47-91 03:07:003.9[facility] OomvualTWSBSORWDACW3205-04-23 03:07:003.9[facility] CalulfiAFWVKXWTTO7836-90-69 16:45:00Normal (12/19/20 11:45 AM) [facility] MkkfgwkEZSZXMZCOG2352-08-97 16:45:00Slight *ABN*(12/19/20 11:45 AM) [facility] GxonbkyUAGVUCJWMC3601-76-17 16:45:00Moderate *ABN*(12/19/20 11:45 AM) [facility] EsnmsqiSYHYZPRRSL6825-41-57 16:45:005.2[facility]annHEMATOLOGY 2020-12-19 16:45:003.61[facility] GcdeygfFYKVGQWSVO9708-92-83 16:45:0010.7[facility] ZtvahilLDIVHQXIEU9164-10-47 16:45:0031.6[facility] ZikytqoOJRWINXTXC2753-78-62 16:45:0087.4[facility] NpexclcHZQOXSQRNC8581-63-46 16:45:00 Test Item Value Reference Range Interpretation Comments MCH (test code = MCH) 29.6 pg 27.0-31.0 [facility] AaonwdzKWQHGBFBOY3348-85-53 16:45:0033.8[facility]annHEMATOLOGY 2020-12-19 16:45:0019.1[facility] RpmtiieFMRMDFYRGJ7233-83-33 16:45:88810Msyqufzl BfimrpzWTEXLWPXHX0721-79-91 16:45:0010.1[facility] KnhzimwXFQVMVMBXJ4145-95-97 16:45:0073.4[facility] VodfivyFAWVAJHALC3410-99-31 16:45:0014.8[facility] KKNZDTCHHS2408-64-90 16:45:0010.2[facility] RrwqhmuYCKEPZKOXV2031-20-98 16:45:00 0.7[facility] FihkcdwGHUYHAWYFE0092-82-44 16:45:000.9[facility]annHEMATOLOGY 2020-12-19 16:45:003.8[facility] YhgrtevDFPRBUVQKX7404-77-19 16:45:000.8[facility] GypgnocUBSCOPLAQP1148-80-01 16:45:000.5[facility] TkzanjtXGHTPGUPKG7251-27-57 16:45:00Normal (12/19/20 11:45 AM)[facility] PfteyjpOEQDCWHWHR4597-97-78 16:45:00 Slight *ABN*(12/19/20 11:45 AM)[facility] EkdtuotVUOEBRXWPB4567-34-33 16:45:00 Moderate *ABN*(12/19/20 11:45 AM)[facility] AkihedwOHFJYJIXVN7512-51-45 16:45:005.2 [facility] PojkknhANYIQIOGHW6487-08-66 16:45:003.61[facility]annHEMATOLOGY 2020-12-19 16:45:0010.7[facility] GxjppgtOHLIPOVPXS5099-57-87 16:45:0031.6[facility] PblxgfxEDSGOMXHVK5161-13-38 16:45:0087.4[facility] BivrnigTRTEGPUAKB1051-65-50 16:45:00 Test Item Value Reference Range Interpretation Comments MCH (test code = MCH) 29.6 pg 27.0-31.0 [facility] IgneagxUUUWQIYTRQ4268-91-46 16:45:0033.8[facility]annHEMATOLOGY 2020-12-19 16:45:0019.1[facility] TkulurhODMIVQLXQX6794-79-95 16:45:88938Cfkghlgj NwcnnhtNPDGEDKFKX7226-34-65 16:45:0010.1[facility] RyiyucfUFWALMNTLP3158-70-13 16:45:0073.4[facility] IpmadvhTYFNXYQQFI3272-50-10 16:45:0014.8[facility] WUPVAZSIQN4923-62-63 16:45:0010.2[facility] BowlwoyUAIOVDMZZR9417-48-25 16:45:00 0.7[facility] MkmloafHDFIRQSJQJ6676-06-35 16:45:000.9[facility]annHEMATOLOGY 2020-12-19 16:45:003.8[facility] OzkewdqOWDYONBBDR5980-72-92 16:45:000.8[facility] NwtjewxJQLGSNCSTK7257-68-57 16:45:000.5[facility]UR[facility] RZELJ7640-15-66 16:24:00Yellow *NA*(12/19/20 11:24 AM)[facility] NAVNY1278-83-84 16:24:00Clear (12/19/20 11:24 AM)[facility] CBDHR5975-87-24 16:24:00 Test Item Value Reference Range Interpretation Comments UA Spec Grav (test code = UA Spec 1.015 1 Grav) [facility] NHYGN8740-29-35 16:24:00 Test Item Value Reference Range Interpretation Comments UA pH (test code = UA pH) 7.0 1 5.0-8.0 [facility] IHQMG2370-31-57 16:24:00Negative *NA*(12/19/20 11:24 AM) [facility] WUKNB4611-31-61 16:24:00Negative (12/19/20 11:24 AM) [facility] ADCXL8805-05-95 16:24:00Negative (12/19/20 11:24 AM) [facility] HMVRB7341-52-78 16:24:00Negative (12/19/20 11:24 AM) [facility] WZLMC1858-45-65 16:24:004[facility] BSVBN7989-41-01 16:24:006[facility] HDUPC8987-01-12 16:24:001 [facility] CMYAN9452-32-61 16:24:00Yellow *NA*(12/19/20 11:24 AM) [facility] HWIPW3153-21-73 16:24:00Clear (12/19/20 11:24 AM) [facility] OUHDS4787-42-26 16:24:00 Test Item Value Reference Range Interpretation Comments UA Spec Grav (test code = UA Spec 1.015 1 Grav) [facility] [id number] 16:24:00 Test Item Value Reference Range Interpretation Comments UA pH (test code = UA pH) 7.0 1 5.0-8.0 [facility] RCFUN7157-25-84 16:24:00Negative *NA*(12/19/20 11:24 AM) [facility] LCEEF0640-53-15 16:24:00Negative (12/19/20 11:24 AM) [facility] XSHNM7565-89-74 16:24:00Negative (12/19/20 11:24 AM) [facility] EEDKT4708-31-18 16:24:00Negative (12/19/20 11:24 AM) [facility] MQFZB5244-88-51 16:24:004[facility] WPDWO5962-19-24 16:24:006[facility] ZUGVG3884-44-57 16:24:001 [facility]annCHEM CIUHF4988-74-95 15:53:62291Orkbbidn HermannCHEM PANEL 2020-12-19 15:53:0010[facility]annCHEM MIJTM5978-10-53 15:53:000.72[facility]annCHEM WRFJZ7296-69-36 15:53:92238Ctkcvzop HermannCHEM QSZEB6899-15-45 15:53:22532Uvshcetd HermannCHEM XEEDR5903-52-67 15:53:0035[facility]annCHEM XRCWD2517-53-34 15:53:005.1[facility]annCHEM HMRYK7835-97-07 15:53:007.5 [facility]annCHE[facility] TFQYT1038-84-91 15:53:0082[facility]annCHEM PANEL 2020-12-19 15:53:001.7[facility]annCHEM SAAHF3810-78-78 15:53:002.8[facility]annCHEM OCCPB0942-80-89 15:53:75582Izcixiwk HermannCHEM KESDL2400-42-11 15:53:0010[facility]annCHEM YFWSR3009-54-82 15:53:000.72[facility]annCHEM FAUGO1498-24-70 15:53:25608Vvwrwmsd HermannCHEM GOCZT4014-98-53 15:53:24328 [facility]annCHE[facility] MTAGF8839-71-95 15:53:0035[facility]annCHEM PANEL 2020-12-19 15:53:005.1[facility]annCHEM WDVBI3823-19-88 15:53:007.5[facility]annCHEM EXKWQ7151-71-91 15:53:0082[facility]annCHEM ARNQN8622-72-70 15:53:001.7[facility]annCHEM IQFCN7624-84-33 15:53:002.8[facility] CARDIAC MGIIIIG1606-94-37 10:02:00<0.02[facility]annCARDIAC ENZYMES 2020-12-19 10:02:00<0.02[facility]annBLOOD BANK URCAAET1724-02-06 07:30:00 Product available 4(12/19/20 2:30 AM)[facility] QFZVBEB3177-93-22 07:30:00Product available 4(12/19/20 2:30 AM)[facility] AcgcpdwIFRWMUPNUZ8637-63-66 03:56:00Not Detected (12/18/20 10:56 PM)[facility] BiqofyeUYSISUXJEM9398-99-39 03:56:00Not Detected (12/18/20 10:56 PM)[facility]BL[facility] RESULTS 2020-12-19 03:45:00Negative (12/18/20 10:45 PM)[facility]annCARDIAC ENZYMES 2020-12-19 03:45:66330Wyuobind HermannCARDIAC EHNSMCI1754-58-07 03:45:00<0.02 [facility]annCHE[facility] RCZBP2808-16-36 03:45:00 Test Item Value Reference Range Interpretation Comments B/C Ratio (test code = B/C Ratio) 03-13 [facility] HermannCHEM GAVQC2021-58-12 03:45:003.0[facility] HermannCHEM PANEL 2020-12-19 03:45:87751Nffwivga HermannCHEM IBULZ9946-52-88 03:45:18965Ocruvabw HermannCHEM NFLMI6782-53-75 03:45:006.6[facility]annCHEM PNTNU6342-31-51 03:45:08859Pzuuqzgh HermannCHEM FINMJ4843-28-77 03:45:000.6[facility]annCHEM XWALQ7265-26-76 03:45:003.6[facility]annCHEM CXYSQ9330-01-84 03:45:00 Test Item Value Reference Range Interpretation Comments A/G Ratio (test code = A/G Ratio) 0.8 1 0.7-1.6 [facility] HermannCHEM DBJIP6710-18-60 03:45:001.8[facility] HermannHEMATOLOGY 2020-12-19 03:45:00 Test Item Value Reference Range Interpretation Comments PT (test code = PT) 14.2 s 12.0-14.7 [facility]CDTWE7861-41-18 03:45:00 Test Item Value Reference Range Interpretation Comments INR (test code = INR) 1.11 1 0.85-1.17 [facility]ByejguyDGGTGDSYKW4635-28-92 03:45:00 Test Item Value Reference Range Interpretation Comments PTT (test code = PTT) 27.8 s 22.9-35.8 [facility]LoenxdkHHPLIGCUWI9093-08-76 03:45:000.1[facility]BL[facility] YVZFFIZ6039-19-93 03:45:00Negative (12/18/20 10:45 PM)[facility] HermannCARDIAC LUASLMX1241-84-17 03:45:81350Pylkybwe HermannCARDIAC AEZQTKR4819-68-82 03:45:00 <0.02[facility] HermannCHEM UWVCN4813-59-84 03:45:00 Test Item Value Reference Range Interpretation Comments B/C Ratio (test code = B/C Ratio) 19 03-13 [facility] HermannCHEM LUDUE1534-40-26 03:45:003.0[facility] HermannCHEM PANEL 2020-12-19 03:45:58632Hpgrmmnd HermannCHEM TMVPK2689-43-28 03:45:87297Zvfjubtn HermannCHEM MMCHT8083-55-21 03:45:006.6[facility] HermannCHEM ZZFPA7275-82-70 03:45:16726Tqlpgtmh HermannCHEM ZTMES4575-98-86 03:45:000.6[facility] HermannCHEM SAQSO1223-74-22 03:45:003.6[facility] HermannCHEM CNWQY0854-19-75 03:45:00 Test Item Value Reference Range Interpretation Comments A/G Ratio (test code = A/G Ratio) 0.8 1 0.7-1.6 [facility] HermannCHEM ZAGDF9011-12-73 03:45:001.8[facility]annHEMATOLOGY 2020-12-19 03:45:00 Test Item Value Reference Range Interpretation Comments PT (test code = PT) 14.2 s 12.0-14.7 [facility] NyxusqeNNFTXQZZGG1650-56-98 03:45:00 Test Item Value Reference Range Interpretation Comments INR (test code = INR) 1.11 1 0.85-1.17 [facility] WudetpxKTFEVIDVGH6130-37-34 03:45:00 Test Item Value Reference Range Interpretation Comments PTT (test code = PTT) 27.8 s 22.9-35.8 [facility] GejtprcWSWKCMHFET3969-39-22 03:45:000.1[facility] HermannIMMUNOLOGY 2020-12-11 12:33:00Not Detected (12/11/20 7:33 AM)[facility]annIMMUNOLOGY 2020-12-11 12:33:00Not Detected (12/11/20 7:33 AM)[facility] HermannCHEM PANEL 2020-06-23 07:32:0082[facility] HermannCHEM LOERA4776-26-05 07:32:0013[facility] HermannCHEM VOOVT3055-05-28 07:32:000.54[facility] HermannCHEM UIEZT0820-92-32 07:32:48986Bvwcyxel HermannCHEM KMQRK7087-49-15 07:32:004.1[facility] HermannCHEM TYKXK7846-33-71 07:32:62637Tmtvqoku HermannCHEM DYLIA5422-33-50 07:32:0030 [facility]annCHEM PPRGS5284-84-07 07:32:008.6[facility] HermannCHEM PANEL 2020-06-23 07:32:0011.1[facility] HermannCHEM UZKHE7560-20-81 07:32:0093[facility] RenjymvWSLCHQADVE5205-45-16 07:32:007.6[facility] EvyeufkFMVXRETNDY0224-79-49 07:32:003.57[facility] LqnsgnuQNMLDMZQVP3358-77-41 07:32:0010.5[facility] JZAGHRSXPM0746-08-77 07:32:0031.8[facility] EkdqskhMCWGRBQQHM9978-79-64 07:32:00 89.1[facility] LmonqwsEEBUUDJBDG8855-89-49 07:32:00 Test Item Value Reference Range Interpretation Comments MCH (test code = MCH) 29.4 pg 27.0-31.0 [facility] GvdrtzhOALJMILEZH9468-47-25 07:32:0033.0[facility] HermannHEMATOLOGY 2020-06-23 07:32:0017.9[facility] BpcbwrgIKDZVNDTPS0958-68-24 07:32:51956Bcolfxsi EofivypQOCOHNNCAP2795-92-47 07:32:008.6[facility] IdqhleaDJIPERJQVK3459-17-55 07:32:0059.8[facility] JxybfddAQYHSSKCAH3003-58-45 07:32:0027.5[facility] EAYZWORUFK5825-61-96 07:32:009.0[facility] JkpgmgdONIEAZSVJQ3946-10-26 07:32:001.7 [facility] KtpvofbOEWLEECANY1005-96-55 07:32:002.0[facility] HermannHEMATOLOGY 2020-06-23 07:32:004.5[facility] TmeghjuHPWBJFJIEW7830-85-36 07:32:002.1[facility] VoawrgaXJISTKYSEN3765-71-67 07:32:000.7[facility] GzdykxoOUAPDPLRJG9105-24-08 07:32:000.1[facility] VkumjyuPFVMJGUFAE2270-04-25 07:32:000.2[facility] HermannCHEM OVRYX9325-66-60 07:32:0082[facility] HermannCHEM MQTWC9494-70-80 07:32:0013 [facility] HermannCHEM CLARF3335-72-09 07:32:000.54[facility] HermannCHEM PANEL 2020-06-23 07:32:30924Vprvskza HermannCHEM VTKEG9765-34-98 07:32:004.1[facility] HermannCHEM WOTRA1887-95-17 07:32:04675Ddadokdg HermannCHEM DPETW1821-74-57 07:32:0030[facility] HermannCHEM LTBLH6057-36-58 07:32:008.6[facility] HermannCHEM CGDBN3440-54-44 07:32:0011.1[facility] HermannCHEM IMMBY2138-64-24 07:32:0093 [facility] ZkjghwoFCXIINQSZP0264-59-71 07:32:007.6[facility] HermannHEMATOLOGY 2020-06-23 07:32:003.57[facility] OxfkeheCMYXPIXSIW4518-21-09 07:32:0010.5[facility] TqugjkcWUZDDOOJAH6708-33-37 07:32:0031.8[facility] UwnzuefQLNPDWEKRN8879-36-20 07:32:0089.1[facility] DdtmkpbTTIKMXJSEM4138-19-34 07:32:00 Test Item Value Reference Range Interpretation Comments MCH (test code = MCH) 29.4 pg 27.0-31.0 [facility] VkuxepxMFPEDHDOWT9436-67-05 07:32:0033.0[facility] HermannHEMATOLOGY 2020-06-23 07:32:0017.9[facility] ZzeaurbFCLASTQPWW0273-62-92 07:32:48314Mqhlsfgo WysvgwuNLSLTEICYT8287-92-96 07:32:008.6[facility] MheijrpANNQFHIITC9853-21-74 07:32:0059.8[facility] OclqnfjXLPWPFLFJK1871-35-44 07:32:0027.5[facility] WNCJSZIDJM5018-07-05 07:32:009.0[facility] BamsrxkPNANYZHYKB3197-84-38 07:32:001.7 [facility] DsxuxzpLBGHZFNOQX5476-29-87 07:32:002.0[facility] HermannHEMATOLOGY 2020-06-23 07:32:004.5[facility] HacyzmuOSJTPPUVVQ9701-85-76 07:32:002.1[facility] DlnqturYOSELTLWAB3885-04-34 07:32:000.7[facility] KeduwtsUOKTOWJJKP3843-34-42 07:32:000.1[facility] MvssrksGVVIJLXJZK4583-88-94 07:32:000.2[facility] HermannCHEM JHMTS5687-16-18 07:12:82181Niqoeplm HermannCHEM ZWBER0883-58-59 07:12:0013 [facility]annCHEM XLFNZ9444-91-41 07:12:000.51[facility] HermannCHEM PANEL 2020-06-21 07:12:99488Obyuwybd HermannCHEM MQMYT8074-41-45 07:12:003.9[facility] HermannCHEM MKIET1775-10-35 07:12:40850Hongmftv HermannCHEM KALSL2556-90-44 07:12:0031[facility] HermannCHEM DPJYE9934-60-79 07:12:008.6[facility] HermannCHEM WWAME0612-75-94 07:12:009.9[facility] HermannCHEM PKTXQ5806-20-84 07:12:0094 [facility] HermannCHEM NHYVG0726-09-85 07:12:001.7[facility] HermannCHEM PANEL 2020-06-21 07:12:003.6[facility] IeayfocBVLAZUVAFQ0234-44-44 07:12:008.1[facility] LbmoujuPYDAJGTWAA2259-32-70 07:12:003.54[facility] JwsrnkbUQGVTMDKCB6805-72-92 07:12:0010.9[facility] LvfnhcmPIQUMNXPYA7164-40-48 07:12:0032.3[facility] XBRZFTLKQU5705-80-17 07:12:0091.1[facility] WytdvygTMKIMHVMST8899-81-26 07:12:00 Test Item Value Reference Range Interpretation Comments MCH (test code = MCH) 30.8 pg 27.0-31.0 [facility] HqkcpnrBRKVREAYBA3751-34-00 07:12:0033.9[facility] HermannHEMATOLOGY 2020-06-21 07:12:0017.2[facility] QnoimwvMPVTZQVSGL2484-09-47 07:12:35038Tkdbpgnb WpgaidzTXUQJTPCDA8202-83-25 07:12:008.6[facility] MphpoxgXGWSFDSRKD9559-42-98 07:12:005.0[facility] HmopbnySKETZRBKSJ2261-79-79 07:12:002.2[facility] HGXKNKDMZU6609-04-02 07:12:000.6[facility] DcfcypoAESTZQOPOB1658-09-79 07:12:000.2 [facility] IqzechzPDCYEKZFSU3251-91-28 07:12:0062.0[facility] HermannHEMATOLOGY 2020-06-21 07:12:000.0[facility] FjzfejeLELSGRLGNA1001-66-45 07:12:0027.0[facility] UyzygxpVMXWAJGGEZ9040-29-00 07:12:008.0[facility] MpliimsJPJVXXNLJN4848-26-21 07:12:003.0[facility] SwkkserACHCTHPPIU7920-08-07 07:12:000.0[facility] RJPQYFVIPT7972-63-74 07:12:00Normal (06/21/20 2:12 AM)[facility] HermannPARATHYROID EZRUGXU1810-51-08 07:12:001.09[facility] HermannPARATHYROID WLCNUIJ6276-31-78 07:12:001.09[facility] HermannCHEM SUCNO5187-53-06 07:12:74755Vlxkvhua HermannCHEM UCFQE4173-12-76 07:12:0013[facility] HermannCHEM FKCTC8263-83-85 07:12:000.51 [facility] HermannCHEM PAEGL6567-15-76 07:12:30657Dkfzmqyr HermannCHEM PANEL 2020-06-21 07:12:003.9[facility] HermannCHEM SNEVX5779-41-24 07:12:92340Lpanlliz HermannCHEM HWOSO8998-37-68 07:12:0031[facility] HermannCHEM ILCXQ4705-78-69 07:12:008.6[facility] HermannCHEM NUDWK7952-62-20 07:12:009.9[facility] HermannCHEM TGLES6399-03-16 07:12:0094[facility] HermannCHEM QWQLY3027-75-19 07:12:001.7 [facility] HermannCHEM GYGKE7723-55-32 07:12:003.6[facility] HermannHEMATOLOGY 2020-06-21 07:12:008.1[facility] UicwohuUSUVZLLJFX6431-35-80 07:12:003.54[facility] DavhdutSCCDUOWFDA9221-40-94 07:12:0010.9[facility] RywkiglKNNCYFAYJJ2689-74-46 07:12:0032.3[facility] SdtmdwhVHKLCUTPJP2563-85-07 07:12:0091.1[facility] BSRIZSMHLC2076-22-13 07:12:00 Test Item Value Reference Range Interpretation Comments MCH (test code = MCH) 30.8 pg 27.0-31.0 [facility] DggjdzuGXQXGDGQNO0722-63-92 07:12:0033.9[facility] HermannHEMATOLOGY 2020-06-21 07:12:0017.2[facility] JydtgsaUKPIWQZTIJ3744-33-85 07:12:00631Hztxiwjn YxgtbkaAECSEOFCYY5998-57-30 07:12:008.6[facility] GcczxmzENJUDNFILM0079-09-61 07:12:005.0[facility] JtuhiplWHUZMHLTOL4370-22-42 07:12:002.2[facility] PEQKUMUGZG2449-21-57 07:12:000.6[facility] HpnbllsJYZODFPDKH7857-87-22 07:12:000.2 [facility] TnrdwueNVZZJNACZJ0355-21-31 07:12:0062.0[facility] HermannHEMATOLOGY 2020-06-21 07:12:000.0[facility] GhcqqciNHBKVLIPWI7379-70-45 07:12:0027.0[facility] BbqfuxrZTDAUAEWPH3776-06-28 07:12:008.0[facility] SsyloljKYUUCXXQEG1045-26-70 07:12:003.0[facility] HvbmmphVXMZANHXGY3494-69-59 07:12:000.0[facility] HIJEBYFTAH6203-13-15 07:12:00Normal (06/21/20 2:12 AM)[facility] HermannPARATHYROID PGPQJQA9006-76-97 07:12:001.09[facility] HermannPARATHYROID XARXCWV2811-81-75 07:12:001.09[facility] HermannCHEM AWTDQ1017-52-78 07:00:003.7[facility] HermannCHEM LBISD2859-44-96 07:00:002.0[facility] HermannCHEM NCEVX0359-70-28 07:00:26203 [facility] HermannCHEM WGEZG9772-51-53 07:00:0019[facility] HermannCHEM PANEL 2020-06-17 07:00:000.52[facility] HermannCHEM KSDCX4779-41-30 07:00:12394Mcgrlrkk HermannCHEM MGHMZ2604-02-18 07:00:003.8[facility] HermannCHEM XAKWR2749-09-90 07:00:55095Oyajrvix HermannCHEM QKBIG2518-67-86 07:00:0033[facility] HermannCHEM VRFRB0835-09-22 07:00:008.3[facility] HermannCHEM TCLPC7848-09-18 07:00:005.8 [facility] HermannCHEM DSIFS6338-86-98 07:00:0094[facility] HermannHEMATOLOGY 2020-06-17 07:00:0010.6[facility] WfythqcFPNKBBTWGA4634-37-61 07:00:003.48[facility] IflkkoaFTXDVPAJJI3085-45-63 07:00:0010.8[facility] YbibixhWJVAHHRAAT8976-31-18 07:00:0032.1[facility] QhsohbmVGPIOEZILR5300-64-44 07:00:0092.5[facility] KHBVVJIQTJ5692-46-02 07:00:00 Test Item Value Reference Range Interpretation Comments MCH (test code = MCH) 31.0 pg 27.0-31.0 [facility] NmbtxziZTUWTCMPLT8512-70-76 07:00:0033.5[facility] HermannHEMATOLOGY 2020-06-17 07:00:0016.3[facility] QsoepkhSCHUDUYSLT7094-79-33 07:00:48230Pgqrksak GouavkdKXMLTMAUHL6375-62-26 07:00:008.emorial NzjsmovDJGBKQAYLT4770-67-18 07:00:0067.3[facility] YzyejbwLPUIKEJYYA6048-41-38 07:00:0018.6[facility] LBROUFCEXE0762-98-39 07:00:0010.7[facility] TfwmiypDRASLDYVZK0664-83-79 07:00:00 2.2[facility] AtlhpueLCAFTMQVRI6290-75-43 07:00:001.2[facility] HermannHEMATOLOGY 2020-06-17 07:00:007.1[facility] IlbapnmBBWDASVCTO6109-88-78 07:00:002.0[facility] UbjurmpSEJRJCFFGS9788-99-68 07:00:001.1[facility] OnnxdjdQEVIDEGISH4253-13-42 07:00:000.2[facility] AyebrxgXFCPKCNPMX0387-55-02 07:00:000.1[facility] HermannCHEM EXWQK4903-15-67 07:00:003.7[facility] HermannCHEM HYWSQ1706-69-28 07:00:002.0 [facility] HermannCHEM EDPCW8620-01-41 07:00:42687Efsisoqk HermannCHEM PANEL 2020-06-17 07:00:0019[facility] HermannCHEM PBZKI1297-85-46 07:00:000.52[facility] HermannCHEM JPGNQ0986-79-62 07:00:92074Mefmfbcc HermannCHEM ULQTT6162-64-92 07:00:003.8[facility] HermannCHEM LKILV7575-30-18 07:00:66903Hkvuqscd HermannCHEM BCWNK1170-95-48 07:00:0033[facility] HermannCHEM FPAVC5594-68-18 07:00:008.3 [facility]annCHEM VFSOK6670-44-40 07:00:005.8[facility] HermannCHEM PANEL 2020-06-17 07:00:0094[facility] ZmzxieiTBBKTZZOBR5277-28-60 07:00:0010.6[facility] GnlzeeoNAZSNLLFND8284-48-03 07:00:003.48[facility] SyibupiRQFDMIKYER6225-59-36 07:00:0010.8[facility] DuwljqsHFHYIZTJUU2100-04-06 07:00:0032.1[facility] OZBMUWKPBD2746-33-63 07:00:0092.5[facility] ExjbpgwYKGHFKMPAB2458-91-57 07:00:00 Test Item Value Reference Range Interpretation Comments MCH (test code = MCH) 31.0 pg 27.0-31.0 [facility] TxlaeipZSIJLOGZTJ5983-79-74 07:00:0033.5[facility] HermannHEMATOLOGY 2020-06-17 07:00:0016.3[facility] CcvomdmFAVYFHRZKI4403-24-00 07:00:79841Qoklsmhk PpxhvwwCPBEOXQIXH4450-69-91 07:00:008.emorial CntfftjHRXPNWQJBW8927-05-69 07:00:0067.3[facility] UhlowkqCVQUQPQXUW7041-96-51 07:00:0018.6[facility] AQJEZOXCSL0269-13-46 07:00:0010.7[facility] FklfvqrHPSJYWFWEX0122-13-28 07:00:00 2.2[facility] EvokcxmSTMACFTKPR4403-14-20 07:00:001.2[facility] HermannHEMATOLOGY 2020-06-17 07:00:007.1[facility] RoofiuaEFREPQCEOW6307-80-00 07:00:002.0[facility] LoifqmiJDUCWKUJMO7573-94-98 07:00:001.1[facility] BajiwvlSEQCTMUBGC2046-64-48 07:00:000.2[facility] RvzeazcSXVKKYMYGO8276-80-20 07:00:000.1[facility] DRRTEJQSXP1780-94-13 13:03:00Not Detected (06/13/20 8:03 AM)[facility] NFKPVOEHJI9853-70-94 13:03:00Not Detected (06/13/20 8:03 AM)[facility] XGWXMNIBAX1706-33-67 05:47:008.5[facility] XuzbehsOOJWIAACHJ7006-84-22 05:47:00 3.08[facility] RxciccfQVGWKQJZGG5124-08-60 05:47:009.2[facility] HermannHEMATOLOGY 2020-06-11 05:47:0027.3[facility] CdpzqjhOQESTCYABZ7418-50-77 05:47:0088.8[facility] NqvhszcQNVAOGFXRZ5270-88-11 05:47:00 Test Item Value Reference Range Interpretation Comments MCH (test code = MCH) 29.9 pg 27.0-31.0 [facility] SspqzkhOJFLSLKAOP3930-44-05 05:47:0033.7[facility] HermannHEMATOLOGY 2020-06-11 05:47:0014.7[facility] VgtxbnoQPKZUJDSHO3793-28-54 05:47:01466Cwspsrhc YujtrdfJCLVHXNDQY1327-82-44 05:47:0010.2[facility] OptupqfRLLKREYPAD9990-17-78 05:47:0062.7[facility] HtbojwxHZPIPXGKOJ1925-82-60 05:47:0022.1[facility] AXGSYYCWFY2502-04-31 05:47:0010.5[facility] HwbxkbjOEDEQBMYKN9588-65-81 05:47:00 3.8[facility] CfnaohjKZZEPUGIWK5301-61-56 05:47:000.9[facility]annHEMATOLOGY 2020-06-11 05:47:005.3[facility] ZbsebojFQLIHEYGQK8882-88-00 05:47:001.9[facility] TwaksikBGUAFDPVKL5282-34-70 05:47:000.9[facility] CqonkkvHJRCBJHBAL1688-26-74 05:47:000.3[facility] IslcgzrCUIMMNTCRE1098-37-28 05:47:000.1[facility] YCCTCBJSMZ8240-47-86 05:47:008.5[facility] TjpcapaNOFXQTUBCW5080-73-34 05:47:00 3.08[facility] HpzlzuhCUQWDYFDJL5155-15-24 05:47:009.2[facility] HermannHEMATOLOGY 2020-06-11 05:47:0027.3[facility] TnbdbayRPIJFVLFSZ0459-58-07 05:47:0088.8[facility] HchfmanLJSBRMWLON4188-15-82 05:47:00 Test Item Value Reference Range Interpretation Comments MCH (test code = MCH) 29.9 pg 27.0-31.0 [facility] UybaniiBJWAQLPTEB1673-22-53 05:47:0033.7[facility]annHEMATOLOGY 2020-06-11 05:47:0014.7[facility] UiznyylOIUTQUYSAB8316-40-22 05:47:40229Kjvjumjx OtizsvdZRQHHLDXSL7855-39-80 05:47:0010.2[facility] FgflchmXNPWQORYDH4297-43-36 05:47:0062.7[facility] TcxoqrrLRPFXEAKOP4913-35-46 05:47:0022.1[facility] NCDNTQUQAS7464-17-63 05:47:0010.5[facility] UvcyiprALNZOCJMOG3265-99-08 05:47:00 3.8[facility] CohcbjdQHMMKXKKBP1767-51-29 05:47:000.9[facility]annHEMATOLOGY 2020-06-11 05:47:005.3[facility] FvnzxmnJEPNABBZPX6435-51-63 05:47:001.9[facility] ZgcynnbXCKFDQKBLO8816-53-52 05:47:000.9[facility] ZzqaodjLKUUFNPIQC8159-86-61 05:47:000.3[facility] FacvwlsUIJUKAHKGO5857-11-59 05:47:000.1[facility] HermannCHEM LORVC3775-37-13 05:45:0096[facility] HermannCHEM XXHGC4912-16-57 05:45:0011 [facility]annCHEM RPUEL9104-78-35 05:45:000.49[facility]annCHEM PANEL 2020-06-11 05:45:44978Yqadjiia HermannCHEM VKLWK2989-96-78 05:45:003.5[facility] HermannCHEM BADMG9383-90-81 05:45:89742Vbhkplsv [facility]annCHE[facility] YGTZE3026-57-42 05:45:0027[facility]annCHEM RPKAR6806-99-29 05:45:007.8[facility] HermannCHEM QBKMF4386-35-90 05:45:0011.5[facility] HermannCHEM UAKIP8327-14-82 05:45:0095 [facility]annCHEM XFWZB0723-63-35 05:45:0096[facility]annCHEM PANEL 2020-06-11 05:45:0011[facility] HermannCHEM SKERZ6455-67-58 05:45:000.49[facility] HermannCHEM FMVDU7163-05-12 05:45:26676Imvfqyku HermannCHEM GSDMX3943-55-20 05:45:003.5[facility] HermannCHEM BGOZM9403-67-47 05:45:30342Dvvneiiw [facility]annCHEM TOSVW3452-74-24 05:45:0027[facility] HermannCHEM GPZFK4619-84-33 05:45:007.8 [facility]annCHEM HNNAJ1233-41-13 05:45:0011.5[facility] HermannCHEM PANEL 2020-06-11 05:45:0095[facility] HermannPARATHYROID TBIOALX6605-05-98 07:28:001.05 [facility] HermannPARATHYROID JKJQUPX6400-00-48 07:28:001.02[facility] HermannCHEM QVUZR4261-82-78 07:28:99863Onekmgza HermannCHEM KGVEA9002-57-61 07:28:0016 [facility]annCHEM ZXKSA4802-09-67 07:28:000.53[facility]annCHEM PANEL 2020-06-10 07:28:09858Vrycwcvv HermannCHEM ELSKE4935-04-76 07:28:003.7[facility] HermannCHEM WWOEG4230-97-02 07:28:71502Bvvetvrg [facility]annCHEM NWEBG8076-72-02 07:28:0027[facility] HermannCHEM FMVMM1675-65-69 07:28:008.0[facility] HermannCHEM CWACR6987-67-26 07:28:009.7[facility] HermannCHEM NNWXG1069-32-82 07:28:0093 [facility] KdgsmrySNZRQZLMJR8488-39-33 07:28:0010.5[facility] HermannHEMATOLOGY 2020-06-10 07:28:003.69[facility] WhzntzlUXFCRTCAIB2468-78-17 07:28:0010.6[facility] WaygieoQSOOUBYKRH7874-64-48 07:28:0032.4[facility] HfkqbyfUZGDHTAGAG4755-76-40 07:28:0087.9[facility] BzyxycoJSKHSEKTHM3403-17-72 07:28:00 Test Item Value Reference Range Interpretation Comments MCH (test code = MCH) 28.8 pg 27.0-31.0 [facility] TftkjnyRHBHQMYRUS8651-38-57 07:28:0032.8[facility] HermannHEMATOLOGY 2020-06-10 07:28:0014.4[facility] FqjhbmgSWZEPVUCDR3668-85-35 07:28:48450Vdaoleac NqfjjkjRIDSMPLJVL9836-82-87 07:28:0010.6[facility] ErqfzahKIDMUWQEEO7100-65-91 07:28:0067.8[facility] IettmgjZXVPJIFCTN4835-47-69 07:28:0017.4[facility] ZPCSTNDMAJ8907-33-77 07:28:0013.4[facility] EacfglkTQSNXMSKFP2051-28-30 07:28:00 0.9[facility] GtgwqcsTZAQEVCHWQ8637-64-47 07:28:000.5[facility] HermannHEMATOLOGY 2020-06-10 07:28:007.1[facility] UleczdkJXIXBGFCGT2764-81-88 07:28:001.8[facility] ZlapmptZCIQYKWABS4671-18-49 07:28:001.4[facility] LpclypeUGEJVJIVQN6775-90-78 07:28:000.1[facility] HermannPARATHYROID VMKTJIJ6553-97-92 07:28:001.05[facility] HermannPARATHYROID GFRNWGH1076-41-33 07:28:001.02[facility] HermannCHEM PANEL 2020-06-10 07:28:43904Rpvxcxwg HermannCHEM ETQQD7197-33-00 07:28:0016[facility] HermannCHEM NNXGM7486-10-73 07:28:000.53[facility] HermannCHEM VUFTR0985-04-72 07:28:52435Geyjoaos HermannCHEM ONHKX9229-75-07 07:28:003.7[facility] HermannCHEM XMKBR5886-81-93 07:28:83606Xfqjgqov HermannCHEM GSQMX5689-75-83 07:28:0027 [facility]annCHEM NPOCP6418-34-16 07:28:008.0[facility] HermannCHEM PANEL 2020-06-10 07:28:009.7[facility] HermannCHEM HGZSW5613-03-49 07:28:0093[facility] NscuppzHWUHYVVGNW0673-00-08 07:28:0010.5[facility] XzfhoibKDIEEFVBKR7158-60-94 07:28:003.69[facility] SdugorfCHOJVSNRGN4022-18-98 07:28:0010.6[facility] WCGXRLQZTE0970-19-20 07:28:0032.4[facility] PhtqlxfLRZVSNUMVZ2931-55-24 07:28:00 87.9[facility] ImqdlzeBZCOQJMXTL7520-02-18 07:28:00 Test Item Value Reference Range Interpretation Comments MCH (test code = MCH) 28.8 pg 27.0-31.0 [facility] XclwwbyJFUDXARIUA7292-35-36 07:28:0032.8[facility] HermannHEMATOLOGY 2020-06-10 07:28:0014.4[facility] UmbsotvRFWIAIJEZL1327-89-03 07:28:12109Ghlsqkjd WuvrarlASZSZTDPPA1086-53-80 07:28:0010.6[facility] KtxkhhbLBOWBYCQCC6759-68-32 07:28:0067.8[facility] JplmrvyBYWLPJYTPZ6691-11-57 07:28:0017.4[facility] RPXFBLXMOY1022-68-27 07:28:0013.4[facility] RsjnhmcJFLNCNNXLP0353-77-44 07:28:00 0.9[facility] FglslfsPTWZQTMCNU3858-77-92 07:28:000.5[facility]annHEMATOLOGY 2020-06-10 07:28:007.1[facility] FnewekqDGACGNAXCB3113-66-71 07:28:001.8[facility] FxwlwkxUHHEXVKUSA2155-88-90 07:28:001.4[facility] OfwanddWGFOOIJBLL1405-08-64 07:28:000.1[facility] HermannCHEM RBLXA4762-29-95 05:27:81285Wgtyzqlq HermannCHEM BJJUL1095-43-16 05:27:0015[facility]annCHEM UKEJA9912-56-90 05:27:000.54 [facility]annCHEM LOGVV9509-04-37 05:27:82697Niphuhmz HermannCHEM PANEL 2020-06-10 05:27:003.6[facility]annCHEM SSWAB7193-56-14 05:27:43772Jlgrgbat HermannCHEM NLKPT8275-36-90 05:27:0024[facility]annCHEM TSHZB8716-75-18 05:27:008.1[facility]annCHEM IIIIT7337-42-68 05:27:0013.6[facility]annCHEM WPCWW2892-22-80 05:27:0092[facility]annCHEM HBQCY8373-76-29 05:27:001.8 [facility] FtbbakeFDWFVMIZGZ1272-18-58 05:27:0010.1[facility]annHEMATOLOGY 2020-06-10 05:27:003.55[facility] VesebxaFTZNWFOHQS2375-30-79 05:27:0010.7[facility] CvbzxspGTQCWKEJKU9010-43-93 05:27:0031.6[facility] HsmyqjtXNVZFKNDRH9004-42-49 05:27:0089.1[facility] WmznvalUOADGBYIYX7838-87-64 05:27:00 Test Item Value Reference Range Interpretation Comments MCH (test code = MCH) 30.1 pg 27.0-31.0 [facility] PrwoomyFVRQTIBREN5017-94-33 05:27:0033.7[facility] HermannHEMATOLOGY 2020-06-10 05:27:0014.9[facility] YlrlkazCUOAOFPTVP6198-30-66 05:27:54121Cqvxlpbc RmkfrrsPGDRMWCQTM8279-40-97 05:27:0010.3[facility] YtaytlrVXBPKKFJMU9120-71-39 05:27:0071.2[facility] YeyxltxUYDUGIVBHR7001-25-75 05:27:0014.4[facility] WKQRIBTZTP8199-55-71 05:27:0013.6[facility] GulqifjXRROTTMPTM2380-42-47 05:27:00 0.5[facility] KhboprgSLTRJNCAUX0127-73-39 05:27:000.3[facility] HermannHEMATOLOGY 2020-06-10 05:27:007.2[facility] DxncahfGBODSNSYUW4700-58-42 05:27:001.5[facility] JlhueoePDGTZGYZYF5189-78-23 05:27:001.4[facility] UqciodyTEFSPFSQLK5055-41-60 05:27:000.1[facility] HermannCHEM KNFYP8695-60-35 05:27:89602Sueelroy HermannCHEM LRHCY2862-55-03 05:27:0015[facility]annCHEM RKYTB6781-08-51 05:27:000.54 [facility]annCHEM VIVKU1611-79-12 05:27:52119Fsojjaoy HermannCHEM PANEL 2020-06-10 05:27:003.6[facility]annCHEM NXZRN0660-12-01 05:27:43026Eflzpfgd HermannCHEM UUSEQ3504-21-32 05:27:0024[facility]annCHEM TBKLC2761-06-59 05:27:008.1[facility]annCHEM NEOYA3360-57-99 05:27:0013.6[facility]annCHEM NJTOF8181-45-30 05:27:0092[facility]annCHEM NMDHL4834-26-67 05:27:001.8 [facility] CbopqsmCQUVZCRXVS7786-35-92 05:27:0010.1[facility]annHEMATOLOGY 2020-06-10 05:27:003.55[facility] AqloecbXPZKNTYFON7369-54-60 05:27:0010.7[facility] SnhiyfuDEQKXDBVBK1420-83-17 05:27:0031.6[facility] HlhkjvhMWISCQGLPM2258-49-20 05:27:0089.1[facility] UnpknyyXFCDUDCGWQ7572-75-54 05:27:00 Test Item Value Reference Range Interpretation Comments MCH (test code = MCH) 30.1 pg 27.0-31.0 [facility] WfuwzotUSROFXGKJH1619-44-72 05:27:0033.7[facility]annHEMATOLOGY 2020-06-10 05:27:0014.9[facility] VtlibgaQHPHLFBSKG8070-32-86 05:27:24494Ssznhgmv NcxihlmWVFWNGDIUQ0012-09-84 05:27:0010.3[facility] NwighriDOBRPKNKZU3650-26-12 05:27:0071.2[facility] VoxhxwtELYQGQTRFP9695-73-47 05:27:0014.4[facility] MEOVNLFCYR6147-34-75 05:27:0013.6[facility] YmksnlmLDMKIIHABI0908-66-23 05:27:00 0.5[facility] PhhoegzSREIUZHGMW1879-62-73 05:27:000.3[facility] HermannHEMATOLOGY 2020-06-10 05:27:007.2[facility] PeyeoouTBWBBLXVUV7390-30-26 05:27:001.5[facility] AipplfoDFQGVFXIYT3909-44-11 05:27:001.4[facility] MptcmmaZVFQTBBABX1149-78-52 05:27:000.1[facility] FfjtochBOMLCI1009-80-41 20:21:0013[facility] HermannLIPIDS 2020-06-09 20:21:0013[facility]annCHEM ZPBID8189-84-99 08:53:98482Fhixrshv HermannCHEM VXZPZ8868-01-16 08:53:78026Ztvwicsz HermannANEMIA VDCRJ8733-82-25 03:05:58654Gduvfpri HermannANEMIA AZANZ3458-90-28 03:05:0014.7[facility] CHEM KJBKE8374-74-63 03:05:00 Test Item Value Reference Range Interpretation Comments B/C Ratio (test code = B/C Ratio) 22 1 6-25 [facility]annCHEM ORHNK0255-41-57 03:05:005.3[facility] HermannCHEM PANEL 2020-06-09 03:05:002.2[facility] HermannCHEM TOEFS2959-10-10 03:05:003.1[facility] HermannCHEM AZSSI7014-73-41 03:05:00 Test Item Value Reference Range Interpretation Comments A/G Ratio (test code = A/G Ratio) 0.7 1 0.7-1.6 [facility]annCHEM OUXRN1272-12-15 03:05:0058[facility] HermannCHEM PANEL 2020-06-09 03:05:0037[facility] HermannCHEM LZEEW9393-02-32 03:05:82828Yrqxxnzz HermannCHEM QAVLA8748-88-42 03:05:000.6[facility]annCHEM NLZOW1547-41-49 03:05:0017.0[facility] GahzhrkTJHKLHDHYC2809-50-55 03:05:000.1[facility] RPDPAU0674-29-32 03:05:0054[facility] JcimwmyQEKSZP8112-89-34 03:05:0066[facility] ZrlhyygAXPJEX6071-15-87 03:05:0048[facility] NrowbpmWHSFZT7205-55-00 03:05:00 Test Item Value Reference Range Interpretation Comments CHD Risk (test code = CHD Risk) 1.38 1 3.90-5.80 [facility] RwsmcdnQHHIGS7718-60-78 03:05:007[facility] WtiudgeEMVUTE6865-65-77 03:05:00 Test Item Value Reference Range Interpretation Comments VLDL (test code = VLDL) 11 1 [facility]annSPECIAL GUWQAWIDL0762-51-75 03:05:005.8[facility] HermannANEMIA GUFPJ3796-63-72 03:05:27058Horflouh HermannANEMIA TZKNQ8571-09-07 03:05:0014.7 [facility]annCHEM PLLAW8792-34-70 03:05:00 Test Item Value Reference Range Interpretation Comments B/C Ratio (test code = B/C Ratio) 22 1 6-25 [facility]annCHEM RIDIG0371-83-24 03:05:005.3[facility] HermannCHEM PANEL 2020-06-09 03:05:002.2[facility] HermannCHEM LWSCF7317-51-11 03:05:003.1[facility] HermannCHEM UYMHO7284-43-66 03:05:00 Test Item Value Reference Range Interpretation Comments A/G Ratio (test code = A/G Ratio) 0.7 1 0.7-1.6 [facility]annCHEM AYJEZ9166-58-02 03:05:0058[facility] HermannCHEM PANEL 2020-06-09 03:05:0037[facility] HermannCHEM UIWYW1943-22-39 03:05:94922Wfqczqse HermannCHEM XYHFA0878-53-85 03:05:000.6[facility] HermannCHEM ZJBXP9160-06-56 03:05:0017.0[facility] DongqoiJTYOJSQWMV4676-01-76 03:05:000.1[facility] Aniket VDRZUE7654-53-83 03:05:0054[facility] RcmcjwmONBCOJ7415-90-82 03:05:0066[facility] PsrpjiuKIOKCV2620-81-91 03:05:0048[facility] TydszqcYILVIX6275-75-43 03:05:00 Test Item Value Reference Range Interpretation Comments CHD Risk (test code = CHD Risk) 1.38 1 3.90-5.80 [facility] OivmvruIOQRTK7810-61-46 03:05:007[facility] BizcvegMNCTZP6918-41-81 03:05:00 Test Item Value Reference Range Interpretation Comments VLDL (test code = VLDL) 11 1 [facility]annSPECIAL DTUCANOLN7012-38-90 03:05:005.8[facility] HermannDRUG WXJGUL3687-31-40 23:33:00Negative *NA*(06/08/20 6:33 PM)[facility] HermannDRUG HUMCIQ8074-63-76 23:33:00Negative *NA*(06/08/20 6:33 PM)[facility]annDRUG FPYQIL9900-86-15 23:33:00Negative *NA*(06/08/20 6:33 PM)[facility]annDRUG FGTILW8660-87-18 23:33:00Negative *NA*(06/08/20 6:33 PM)[facility]annDRUG TYPVIM0321-56-05 23:33:00Negative *NA*(06/08/20 6:33 PM)[facility]annDRUG QXKBRC8156-96-90 23:33:00Negative *NA*(06/08/20 6:33 PM)[facility]annDRUG YREHPJ5125-92-05 23:33:00Negative *NA*(06/08/20 6:33 PM)[facility]annDRUG UAIWZU7983-73-10 23:33:00See Note (06/08/20 6:33 PM)[facility] HermannURINE AND FTMUZ2728-68-45 23:33:00Amber *ABN*(06/08/20 6:33 PM)[facility] MJQGI3325-02-61 23:33:00Slight *ABN*(06/08/20 6:33 PM)[facility] BFWQO6772-05-98 23:33:00 Test Item Value Reference Range Interpretation Comments UA Spec Grav (test code = UA Spec 1.020 1 Grav) [facility] RFFHM0687-72-08 23:33:00 Test Item Value Reference Range Interpretation Comments UA pH (test code = UA pH) 5.0 1 5.0-8.0 [facility] BPOOZ8330-67-13 23:33:00Negative *NA*(06/08/20 6:33 PM) [facility] GBZHH8540-16-86 23:33:00Small *ABN*(06/08/20 6:33 PM) [facility] AEUKT8453-13-69 23:33:00<1.0[facility] ZBDMX6185-52-36 23:33:00Negative (06/08/20 6:33 PM)[facility] YOTKJ6996-19-23 23:33:00Large *ABN*(06/08/20 6:33 PM)[facility] ZEVPK0443-21-02 23:33:0055[facility] BOGWB4543-15-56 23:33:0013 [facility] NKUOBX1891-82-11 23:33:00Negative *NA*(06/08/20 6:33 PM) [facility] GGAUES5982-91-75 23:33:00Negative *NA*(06/08/20 6:33 PM) [facility] WSDIBJ9912-94-76 23:33:00Negative *NA*(06/08/20 6:33 PM) [facility] XCYAFX2926-38-98 23:33:00Negative *NA*(06/08/20 6:33 PM) [facility] SZBNTH7429-33-30 23:33:00Negative *NA*(06/08/20 6:33 PM) [facility] WBYKNV0886-63-86 23:33:00Negative *NA*(06/08/20 6:33 PM) [facility] KUQVBW1278-65-56 23:33:00Negative *NA*(06/08/20 6:33 PM) [facility] BVALJF9773-62-99 23:33:00See Note (06/08/20 6:33 PM)[facility] QMCHL1657-72-72 23:33:00Amber *ABN*(06/08/20 6:33 PM)[facility] INEJD5766-01-99 23:33:00Slight *ABN*(06/08/20 6:33 PM)[facility] PUOLB0521-28-73 23:33:00 Test Item Value Reference Range Interpretation Comments UA Spec Grav (test code = UA Spec 1.020 1 Grav) [facility] GNMDF4052-11-87 23:33:00 Test Item Value Reference Range Interpretation Comments UA pH (test code = UA pH) 5.0 1 5.0-8.0 [facility] QJEZC7555-82-47 23:33:00Negative *NA*(06/08/20 6:33 PM) [facility] GNBCX4712-28-52 23:33:00Small *ABN*(06/08/20 6:33 PM) [facility] BZQSK8908-57-49 23:33:00<1.0[facility] BCPIE4621-58-35 23:33:00Negative (06/08/20 6:33 PM)[facility] NKIRL9234-63-49 23:33:00Large *ABN*(06/08/20 6:33 PM)[facility] AHXTU8639-44-01 23:33:0055[facility] XAGPX8879-71-76 23:33:0013 [facility] LyezxvoQZPRPKCGUQ9130-87-50 13:49:00Not Detected (06/05/20 8:49 AM) [facility] TzqatufMYDFOISLCJ7191-64-29 13:49:00Not Detected (06/05/20 8:49 AM) [facility])2020-04-12 08:30:00 Test Item Value Reference Range Interpretation Comments SARS-COV2/RT-PCR (test code Negative Not Detected, Negative, = 9844332) See external report for linked test SARS-COV-2 PERFORMING LAB [facility] (test code = 8397820) Negative results do not preclude SARS-CoV-2 infection [...] of the Act.Fact Sheet for Healthcare Pro viders:https://www.[employer].Burbio.com/Documents/Xpert%20Xpress%20SARS%20CoV-2/Fact%20Sh eets/302-9972%40HXQG-RIL-0%20HEALTHCARE%20PROVIDERS%20FACT%20SHEET.pdfFact Sheet for Healthcare Patients:https://www.cephe id.com/Documents/Xpert%20Xpress%20SARS%20CoV-2/Fact%20Sheets/302-3801%20SARS-COV -2%20PATIENT%20FACT%20SHEET.pdfPerforming Laboratory:[facility] [facility], [place] [address]ISHX FQMBX1232-46-77 09:15:22938Ozinncqa HermannCHEM ZVKEG1055-86-85 09:15:0014[facility]annCHE[facility] LDVTS3660-58-46 09:15:000.57[facility]annCHE[facility] IBRAF9729-65-46 09:15:99529Fhcxejes HermannCHEM OHMXG8505-70-97 09:15:003.8[facility]annCHE[facility] HMNMC4767-88-79 09:15:23002 [facility]annCHE[facility] IQXYF0855-35-31 09:15:0028[facility]annCHEM PANEL 2020-04-11 09:15:009.0[facility]annCHE[facility] APYXQ9301-55-06 09:15:009.8[facility]annCHE[facility] UYBQI4735-00-55 09:15:0091[facility]annCHE[facility] BRYJU5236-28-84 09:15:001.9[facility]annCHE[facility] QIHAY0326-10-85 09:15:004.6[facility] YXTVFIFOFY9130-30-31 09:15:0061.2[facility] YrgxoflUKTRIINUFU3089-81-59 09:15:00 22.8[facility] LzlkcgyCOJHVVOZCK8248-03-11 09:15:0010.9[facility]annHEMATOLOGY 2020-04-11 09:15:004.3[facility] QthnuroTMCDRVVKSX9486-67-23 09:15:000.8[facility] RdopslcWGAEZLSUAG5235-36-86 09:15:004.4[facility] XgvrofiDCPTDRGZNB8435-72-61 09:15:001.6[facility] KfllghzVIKUBQLWKR0110-53-43 09:15:000.8[facility] YOSCIXHGSU1613-90-33 09:15:000.3[facility] FsylkapDUCAPPVIED7419-49-71 09:15:000.1 [facility] QfiieycMIJXYWFHPX7211-96-57 09:15:007.2[facility]annHEMATOLOGY 2020-04-11 09:15:003.98[facility] OnrrmkiQILLKOWLUO9984-81-07 09:15:0012.1[facility] QvduaxfVDEWKGPLZJ5825-76-85 09:15:0036.4[facility] NuasgycAQPYLQNHIH2342-47-33 09:15:0091.4[facility] LmtsorzZKIHEDDMCN5445-43-61 09:15:00 Test Item Value Reference Range Interpretation Comments MCH (test code = MCH) 30.4 pg 27.0-31.0 [facility] YbzdnsjHVHIISMNZC7796-79-14 09:15:0033.2[facility]annHEMATOLOGY 2020-04-11 09:15:0013.9[facility] LozpdxxUWSVUNEGYG7286-11-73 09:15:55770Lglcxshd GpblumcNRTHWZPCKD6381-12-48 09:15:0010.4[facility] HermannPARATHYROID PROFILE 2020-04-11 09:15:001.13[facility]annPARATHYROID HSADBKE4737-14-82 09:15:00 1.13[facility]annCHEM XRFYQ1931-77-94 09:15:35585Hrbjvzcl HermannCHEM PANEL 2020-04-11 09:15:0014[facility]annCHEM LIHXB8639-46-88 09:15:000.57[facility]annCHEM NVAHH3117-53-62 09:15:51374Zemwzawl HermannCHEM YIQPI5092-71-94 09:15:003.8[facility]annCHEM ALVPX3947-00-59 09:15:94286Tpqwmlxc HermannCHEM NLLAY2207-63-18 09:15:0028[facility]annCHE[facility] YNRAJ3999-74-33 09:15:009.0 [facility]annCHE[facility] XMXNH6264-20-31 09:15:009.8[facility]annCHEM PANEL 2020-04-11 09:15:0091[facility]annCHEM EMRET7286-03-68 09:15:001.9[facility]annCHEM JMLJK5482-35-88 09:15:004.6[facility] KlodtxcWRVLATBVGY7398-77-77 09:15:0061.2[facility] XgfmljiJDIXWXKGVH9443-91-04 09:15:0022.8[facility] ERRCGCCCGY2564-90-14 09:15:0010.9[facility] RgtsvrzWXUSIJPOBZ3630-15-30 09:15:00 4.3[facility] CowjehdSIKFPEGXTP3317-40-86 09:15:000.8[facility]annHEMATOLOGY 2020-04-11 09:15:004.4[facility] BepufahGBMNDMGZSK7818-74-60 09:15:001.6[facility] RaofsshBDIJZOTQEE7972-17-44 09:15:000.8[facility] CgxtargFALTOHVMNQ8528-04-65 09:15:000.3[facility] ToexcwsYVDYGPJYJV2975-85-49 09:15:000.1[facility] ISEQOOREYP5085-42-31 09:15:007.2[facility] SiznusoWKVPIMYMZT0216-60-94 09:15:00 3.98[facility] UvgpmqrJJSAIDXTFA0316-40-34 09:15:0012.1[facility]annHEMATOLOGY 2020-04-11 09:15:0036.4[facility] SjuvggtEESKNXFQQL8053-18-45 09:15:0091.4[facility] JxrkmvsUMAMHURZEO5498-96-84 09:15:00 Test Item Value Reference Range Interpretation Comments MCH (test code = MCH) 30.4 pg 27.0-31.0 [facility] NaodpydLFNNPMIUJW4177-29-98 09:15:0033.2[facility]annHEMATOLOGY 2020-04-11 09:15:0013.9[facility] TjskrshQZBKXEUHUE9571-35-46 09:15:48473Zttbfacd LhlyetiBDETLBVSAE7609-09-11 09:15:0010.4[facility]annPARATHYROID PROFILE 2020-04-11 09:15:001.13[facility]annPARATHYROID KUTTXIB6542-31-24 09:15:00 1.13[facility] IxjjyrvEEALYQZJGHXF5240-85-55 10:43:003.8[facility] RQLRSSWMBJXH4965-86-63 10:43:003.8[facility]annCHEM FYXOE2788-58-32 06:02:00 116[facility]annCHEM WNLZU8074-22-12 06:02:0010[facility]annCHEM PANEL 2020-04-10 06:02:000.53[facility]annCHEM BGOCB0117-81-83 06:02:14772Huopwuwf HermannCHEM CSDVO6960-16-86 06:02:00See Note 4(04/10/20 1:02 AM)[facility] CHEM DRZMY1422-26-78 06:02:78810Anvrflvk HermannCHEM VXRLC2874-55-08 06:02:0030 [facility]CHE[facility] YKTNS4074-84-12 06:02:00See Note (04/10/20 1:02 AM)[facility]annCHEM VQIAX9539-82-13 06:02:008.0[facility]annCHEM BKUZR6583-73-92 06:02:0093[facility]annCHE[facility] EQFUX0662-09-68 06:02:003.7[facility]annCHE[facility] PLFUQ8106-26-94 06:02:002.3[facility] YjmbqnaLPVUSBECMS5300-71-57 06:02:007.6 [facility] CicsvuqJGMPOHTGCE4157-02-84 06:02:004.01[facility]annHEMATOLOGY 2020-04-10 06:02:0012.0[facility] DdlhmuzVQZSSGTPKY6502-23-49 06:02:0036.3[facility] BgyjoxiQTVAWFORTT0929-47-81 06:02:0090.6[facility] QtujicvVZKWXFNISO8899-44-41 06:02:00 Test Item Value Reference Range Interpretation Comments MCH (test code = MCH) 29.8 pg 27.0-31.0 [facility] TxlymjkJATCMNJLZJ4162-51-67 06:02:0032.9[facility]annHEMATOLOGY 2020-04-10 06:02:0014.3[facility] CnvzotbGSMPRZIGLQ3422-34-82 06:02:09316Bzxirdvz PrtmepjXTYXGOIBXS4128-19-41 06:02:0010.9[facility] PqhjpxnVPANOVAXTU3465-51-31 06:02:0064.7[facility] TynwnniVVLNKAQEDQ1922-79-99 06:02:0020.4[facility] DCVJKNDTZT6759-83-00 06:02:0012.5[facility] IuiigboCFCKUAEJCQ0254-30-78 06:02:00 1.7[facility] OjcsuflJLYRXIOQZB3404-97-51 06:02:000.7[facility]annHEMATOLOGY 2020-04-10 06:02:004.9[facility] JwkabvcIXJLWDZLSE6356-65-97 06:02:001.5[facility] IpyuffzFHTPXFCGWG4490-08-71 06:02:001.0[facility] IpeqgiiRUFQROVGKM6745-59-75 06:02:000.1[facility] QfddtovKEBWBJKJWI8806-03-02 06:02:000.1[facility] PARATHYROID RLVCJHS6106-08-75 06:02:000.92[facility]annPARATHYROID PROFILE 2020-04-10 06:02:000.92[facility]annCHEM GHIHJ5360-05-71 06:02:73280Kvosfpky HermannCHEM OVDEE9695-98-30 06:02:0010[facility]annCHEM BGGEV2116-59-24 06:02:000.53[facility]annCHEM DEZUH5699-50-05 06:02:40512Qbvdkqpi [facility]annCHEM MXVXJ1685-94-92 06:02:00See Note 4(04/10/20 1:02 AM)[facility]annCHEM PANEL 2020-04-10 06:02:83213Nhdmqegv HermannCHEM LUHTN1165-68-50 06:02:0030[facility]annCHE[facility] LLKEU1497-09-07 06:02:00See Note (04/10/20 1:02 AM)[facility]M AOAWV9399-75-64 06:02:008.0[facility]annCHE[facility] FZXLD8905-29-42 06:02:0093 [facility]CHE[facility] KJJTY9215-55-23 06:02:003.7[facility]annCHEM PANEL 2020-04-10 06:02:002.3[facility] DanwmkuXVVEZEUTLK2819-48-28 06:02:007.6[facility] UxykhczYQYQUELZKS9771-44-37 06:02:004.01[facility] XartxldBBTUDOGYCS4494-21-36 06:02:0012.0[facility] YsaswvfEHALWZTCPE7555-39-48 06:02:0036.3[facility] XUNWIHUSGT1718-12-57 06:02:0090.6[facility] KalrttjZNBCCFTMGN1458-16-56 06:02:00 Test Item Value Reference Range Interpretation Comments MCH (test code = MCH) 29.8 pg 27.0-31.0 [facility] BczozqmDNNHGXIEEI5354-12-75 06:02:0032.9[facility]annHEMATOLOGY 2020-04-10 06:02:0014.3[facility] YndphkrUMNLHTLZEG6064-96-00 06:02:12356Dxfvgvph QgrlmgmROFJKPDDCN7196-37-83 06:02:0010.9[facility] DttoeucZSBONYDHVZ6550-62-53 06:02:0064.7[facility] TlkbxppZDZCKUFMCO7696-87-46 06:02:0020.4[facility] SPMMLUDLGG1790-15-77 06:02:0012.5[facility] ScdaiapYOOYJMDZGR4806-85-71 06:02:00 1.7[facility] TzcaurgCBLLMVYCWF9921-83-17 06:02:000.7[facility]annHEMATOLOGY 2020-04-10 06:02:004.9[facility] NxsubihQNNCHCVMEC0239-27-92 06:02:001.5[facility] OszqduqFLYGVUJNWW5009-23-22 06:02:001.0[facility] CgonqydNRQWQQNCVR0910-01-32 06:02:000.1[facility] IblzzmyCBVKVXKSYW9504-93-45 06:02:000.1[facility] PARATHYROID TAFHRLB0630-97-00 06:02:000.92[facility]annPARATHYROID PROFILE 2020-04-10 06:02:000.92[facility]annCHEM ZVIZB1667-35-57 06:08:33265Qxfpifnw [facility]annCHEM ZPYUZ4086-27-64 06:08:0012[facility]annCHEM ZHEUE9565-00-04 06:08:000.66[facility]annCHEM WZTMS0909-91-58 06:08:70819Osotgwjv [facility]annCHEM SDVXD7363-32-24 06:08:91815Lhnyvlji [facility]annCHEM BYTPH7913-49-50 06:08:0030 [facility]CHE[facility] PYLMV4229-71-47 06:08:008.4[facility]annCHEM PANEL 2020-04-09 06:08:009.5[facility]annCHE[facility] CMFET6730-15-87 06:08:0087[facility]annCHE[facility] DYEWP0842-39-87 06:08:002.0[facility]annCHE[facility] SXSOV3027-98-84 06:08:003.0[facility] CrmcpsxCWUVENMGIE0629-53-97 06:08:007.7[facility] YXETHHUEKQ4494-81-87 06:08:003.97[facility] TxjurmpRLLABRETCQ7312-90-28 06:08:00 12.4[facility] IbcnndsVDPPHLJUST7225-27-05 06:08:0036.5[facility]annHEMATOLOGY 2020-04-09 06:08:0092.1[facility] OuxpxqrTQCSUPOQRH9944-16-86 06:08:00 Test Item Value Reference Range Interpretation Comments MCH (test code = MCH) 31.2 pg 27.0-31.0 [facility] KwgjchnMGERJUIDLY2465-52-83 06:08:0033.8[facility]annHEMATOLOGY 2020-04-09 06:08:0014.0[facility] JxocoeaCTOZFWXLZI7466-68-81 06:08:46715Hvpathct UubpridSHYXZKPRCP4811-94-72 06:08:0010.5[facility] OxywqpyZJLXKYYYGP1960-49-48 06:08:0070.2[facility] MrfrhlhLHLLFOUEAS6110-09-15 06:08:0017.9[facility] UHRYUKNGNM5344-80-51 06:08:0010.4[facility] JvzlnpbMSIGPKBIDE8804-26-50 06:08:00 1.3[facility] RahmzoyFOQNXOOKXV6653-10-87 06:08:000.2[facility]annHEMATOLOGY 2020-04-09 06:08:005.4[facility] DiylkioOZSQXOGGCG2704-95-22 06:08:001.4[facility] WhsckutJZGKFNBNQC6721-19-32 06:08:000.8[facility] PrbywpfLJLMLSIWBM4905-29-91 06:08:000.1[facility]annPARATHYROID HXRQAGS8941-21-15 06:08:001.03[facility]annPARATHYROID OFGZAJM5875-63-61 06:08:001.02[facility]annCHEM PANEL 2020-04-09 06:08:63347Pwwilwmk [facility]annCHEM VDJOU5891-20-29 06:08:0012[facility]annCHEM PNSAV0302-80-46 06:08:000.66[facility]annCHEM EEJAT5940-42-44 06:08:65519Jlqokaxy [facility]annCHEM YHIWV1453-63-28 06:08:70360Lxvkkxdr [facility]annCHE[facility] HITSO5833-82-60 06:08:0030[facility]annCHE[facility] QCZXN0937-32-56 06:08:008.4 [facility]annCHE[facility] OXYMW1134-21-00 06:08:009.5[facility]annCHEM PANEL 2020-04-09 06:08:0087[facility]annCHEM WOLWF0092-99-63 06:08:002.0[facility]annCHEM ZGANY2239-87-06 06:08:003.0[facility] VjekqagHJGYYCHIGK6943-83-95 06:08:007.7[facility] YkutmfoGSHUALEXJB1365-92-77 06:08:003.97[facility] JZESCMAJYF0071-66-37 06:08:0012.4[facility] QzbonvzDLVEOBVGGK6984-14-96 06:08:00 36.5[facility] EemraucHPZRHVXQHN7658-11-05 06:08:0092.1[facility]annHEMATOLOGY 2020-04-09 06:08:00 Test Item Value Reference Range Interpretation Comments MCH (test code = MCH) 31.2 pg 27.0-31.0 [facility] ZigcuimXEZMCZASLC7405-38-48 06:08:0033.8[facility]annHEMATOLOGY 2020-04-09 06:08:0014.0[facility] ChcgmstLMCLFPXPGD4527-11-96 06:08:51637Jgljhidf BjyoumxGAPLVJBWEX3053-40-53 06:08:0010.5[facility] PthwbeyFGGBMEDTYI8191-97-17 06:08:0070.2[facility] TfxdcxtPWYYSWLJPJ0040-53-66 06:08:0017.9[facility] YDGFGQEZKK1318-29-32 06:08:0010.4[facility] LkhhesfSNMZQCQYUF5703-89-64 06:08:00 1.3[facility] CcsuuoqJAIZSPBKKN0874-44-45 06:08:000.2[facility]annHEMATOLOGY 2020-04-09 06:08:005.4[facility] WlezfpuPCFMQHWMQS0193-45-10 06:08:001.4[facility] JwnmjttFBMJFGABEG2259-93-62 06:08:000.8[facility] NasmofqBRGZVIQEYA1140-08-75 06:08:000.1[facility]annPARATHYROID OSROQFL5796-29-86 06:08:001.03[facility]annPARATHYROID ZQWUIFT6658-91-85 06:08:001.02[facility]annHEMATOLOGY 2020-04-08 15:53:00 Test Item Value Reference Range Interpretation Comments PT (test code = PT) 15.6 s 12.0-14.7 [facility] ZcghtdkJQERRDRMMV9600-26-39 15:53:00 Test Item Value Reference Range Interpretation Comments INR (test code = INR) 1.23 1 0.85-1.17 [facility] RlaljxlUNLPCIYLFD3244-79-21 15:53:00 Test Item Value Reference Range Interpretation Comments PTT (test code = PTT) 36.5 s 22.9-35.8 [facility] MzdbvndDOQFQDRGNC2593-08-46 15:53:00 Test Item Value Reference Range Interpretation Comments PT (test code = PT) 15.6 s 12.0-14.7 [facility]IrprltoHISAIFOUPL0422-40-78 15:53:00 Test Item Value Reference Range Interpretation Comments INR (test code = INR) 1.23 1 0.85-1.17 [facility]OxugxsiMOHOHBWSUZ9812-38-35 15:53:00 Test Item Value Reference Range Interpretation Comments PTT (test code = PTT) 36.5 s 22.9-35.8 [facility] CenterTwadabvODPACFJMHK0276-17-02 10:14:00 Test Item Value Reference Range Interpretation Comments PT (test code = PT) 14.3 s 12.0-14.7 [facility] NortheastTzlgokmFIAHMNUZHZ8489-04-81 10:14:00 Test Item Value Reference Range Interpretation Comments INR (test code = INR) 1.11 1 0.85-1.17 [facility] CenterVjlqxvtUZBNDOZGPZ3352-35-68 10:14:00 Test Item Value Reference Range Interpretation Comments PTT (test code = PTT) 39.1 s 22.9-35.8 [facility] CenterVvtyutoKDOLLGGLAJ5328-83-67 10:14:000.1[facility] 2020-[facility]-08 10:14:00 Test Item Value Reference Range Interpretation Comments PT (test code = PT) 14.3 s 12.0-14.7 [facility] CenterFffaxevBZCVOQFDQD7722-29-51 10:14:00 Test Item Value Reference Range Interpretation Comments INR (test code = INR) 1.11 1 0.85-1.17 [facility] CenterImtbuupNPCQPXEPJH8275-38-64 10:14:00 Test Item Value Reference Range Interpretation Comments PTT (test code = PTT) 39.1 s 22.9-35.8 [facility] CenterZsaawuqKIJGHDPBGW2647-79-96 10:14:000.1[facility]HE[facility] 2020-04-08 03:38:00 Test Item Value Reference Range Interpretation Comments PT (test code = PT) 15.3 s 12.0-14.7 [facility] CenterGunpqjvBZWGVPTYTL6021-01-11 03:38:00 Test Item Value Reference Range Interpretation Comments INR (test code = INR) 1.20 1 0.85-1.17 [facility] CenterVpgpnxxFHUWZWHIRU4077-37-87 03:38:00 Test Item Value Reference Range Interpretation Comments PTT (test code = PTT) 61.7 s 22.9-35.8 [facility]UcapodpUCFJXXNMHF3329-11-20 03:38:00 Test Item Value Reference Range Interpretation Comments PT (test code = PT) 15.3 s 12.0-14.7 [facility] HospitalBlgaiaeOFFLQVSOCR0567-90-16 03:38:00 Test Item Value Reference Range Interpretation Comments INR (test code = INR) 1.20 1 0.85-1.17 [facility]TzbtqcvDUCUGIGXYD2076-04-85 03:38:00 Test Item Value Reference Range Interpretation Comments PTT (test code = PTT) 61.7 s 22.9-35.8 [facility] ATHMQDJ0715-67-18 19:13:00Negative (04/07/20 2:13 PM) [facility] TQHMFZL2796-65-46 19:13:00Negative (04/07/20 2:13 PM) [facility] YACSOKV9760-56-11 17:59:00Product available (04/07/20 12:59 PM)[facility] DIJMYEE4722-71-42 17:59:00Product available (04/07/20 12:59 PM)[facility] WSYSJSY1265-58-61 17:59:00Product available (04/07/20 12:59 PM)[facility] RNOYDPF6132-52-69 17:59:00Product available (04/07/20 12:59 PM)[facility] HospitalDjlbkcyRVUWQABNPX7851-22-32 02:19:00 Test Item Value Reference Range Interpretation Comments PTT (test code = PTT) 27.4 s 22.9-35.8 [facility] HospitalEkbrfdmMVUBABBUJJ4655-74-68 02:19:00 Test Item Value Reference Range Interpretation Comments PT (test code = PT) 15.1 s 12.0-14.7 [facility] HospitalFgnedvoKPMEGCONVF8573-63-93 02:19:00 Test Item Value Reference Range Interpretation Comments INR (test code = INR) 1.18 1 0.85-1.17 [facility] HospitalFngaoufRWGQGBXQHK4195-53-59 02:19:006.9[facility]HE[facility] 2020-04-07 02:19:004.11[facility] CenterLdfaccxVATVIILQGZ2091-12-84 02:19:0012.2[facility] XjyhtpdIRDBWAEVID2461-29-93 02:19:0037.5[facility] ItzvsiqYFKGTWPHFB4270-91-71 02:19:0091.2[facility] JikrjftFGZBSUSIDD0911-34-22 02:19:00 Test Item Value Reference Range Interpretation Comments MCH (test code = MCH) 29.7 pg 27.0-31.0 [facility] IfcvxobESGASURSWO4926-43-94 02:19:0032.6[facility]annHEMATOLOGY 2020-04-07 02:19:0014.7[facility] OwjpgfaASEJWTYMQY0207-60-38 02:19:73668Ldlavrly DvzozgqOIOVQWRWHK2508-14-62 02:19:0010.1[facility] IcpgxzjIPUKPKQOES9180-28-84 02:19:0023.0[facility] VwggocjSBKDXWSYQE3493-46-43 02:19:0010.1[facility] XRUPFUTWTF5942-43-13 02:19:000.9[facility] JbejnhjMUAICYZKEK5944-55-56 02:19:004.4 [facility] VkonionIRNUQYEITK7112-85-33 02:19:001.6[facility]annHEMATOLOGY 2020-04-07 02:19:000.7[facility] JdubvbhSMDLWZBGIT6192-07-15 02:19:000.1[facility] AlusiegQWOPJFSOJH1150-99-08 02:19:000.1[facility] KxfyemkYFAHJWDPRB8513-85-35 02:19:0064.0[facility] SqqbupzAPJRKEXJOH5069-13-79 02:19:002.0[facility] ECYTOSMWEJ4963-70-19 02:19:00 Test Item Value Reference Range Interpretation Comments PTT (test code = PTT) 27.4 s 22.9-35.8 [facility] UeyabuiZZPBPAOEHQ1413-49-27 02:19:00 Test Item Value Reference Range Interpretation Comments PT (test code = PT) 15.1 s 12.0-14.7 [facility] BfmrtkfJAZDBKJFDS8032-47-55 02:19:00 Test Item Value Reference Range Interpretation Comments INR (test code = INR) 1.18 1 0.85-1.17 [facility] LygyledYSAZPRYMHT5915-57-70 02:19:006.9[facility]annHE[facility]OLOGY 2020-04-07 02:19:004.11[facility] NwqplezMYHZLHPJDZ0595-49-08 02:19:0012.2[facility] KrylrekQMSKWACMYQ4518-66-99 02:19:0037.5[facility] PpbewapYOUQTAFGEA5015-24-48 02:19:0091.2[facility] OlhwygaXFMBGNKYRD4435-74-62 02:19:00 Test Item Value Reference Range Interpretation Comments MCH (test code = MCH) 29.7 pg 27.0-31.0 [facility] EdqnnmvABHHSYOQJJ8814-39-56 02:19:0032.6[facility]HE[facility]Y 2020-04-07 02:19:0014.7[facility] KcwsbioPPZCAPFVEE3887-65-40 02:19:35206Kncqosdh YhdlalaDCECVZOMTB6962-45-47 02:19:0010.1[facility] NewmajvDWVOLWTPAH1956-42-56 02:19:0023.0[facility] MgynpqdSWVQPDWTGW2253-89-12 02:19:0010.1[facility] DOFKCFJRSQ8110-22-05 02:19:000.9[facility] YyqoratYRXFTIGSBY9567-89-46 02:19:004.4 [facility] KjvpnrzPBTPNRKGEC9875-49-70 02:19:001.6[facility]annHEMATOLOGY 2020-04-07 02:19:000.7[facility] LqdqapjXLLBTMOORZ5673-61-99 02:19:000.1[facility] XrsrdcpAVSYFUJFLG6742-69-79 02:19:000.1[facility] MeujjsfPROXYGSYGF9686-17-23 02:19:0064.0[facility] XzrymxwGBJAHVFEQT7474-41-72 02:19:002.0[facility] CARDIAC ZNESMLF5083-11-44 11:49:002.71[facility]annCHEM LVJRR3710-43-91 11:49:0088[facility]annCHEM VQGKE9299-46-64 11:49:009[facility]annCHEM DLJPS2122-85-20 11:49:000.54[facility]annCHEM RKJHE3299-43-05 11:49:85545 [facility]annCHEM BJCSW7872-07-49 11:49:003.5[facility]annCHEM PANEL 2020-04-06 11:49:28060Dhzpzngx HermannCHEM MSQYJ1983-06-26 11:49:0029[facility]annCHEM DUEBR6787-61-15 11:49:009.5[facility]annCHEM MIPVH2549-56-17 11:49:007.8[facility]annCHEM WJHNO3210-04-71 11:49:00 Test Item Value Reference Range Interpretation Comments B/C Ratio (test code = B/C Ratio) 17 1 6-25 [facility]annCHEM GWXBH2473-48-09 11:49:006.3[facility]annCHEM PANEL 2020-04-06 11:49:002.9[facility]annCHEM MZYWI8202-19-21 11:49:003.4[facility]annCHEM OOWZD0617-19-82 11:49:00 Test Item Value Reference Range Interpretation Comments A/G Ratio (test code = A/G Ratio) 0.9 1 0.7-1.6 [facility]annCHEM LOOEO4760-22-74 11:49:0035[facility]annCHEM PANEL 2020-04-06 11:49:0051[facility]annCHEM OMPZW5985-18-54 11:49:0089[facility]annCHEM JXKNU5247-76-35 11:49:000.7[facility]annCHEM FAIDX2746-18-10 11:49:0092[facility]annCHEM YTSRJ3932-37-19 11:49:001.8[facility]annCHEM UXZCK1124-99-35 11:49:002.9[facility] JwanoxhQEGNSWOCKR8090-69-95 11:49:008.4 [facility] WnzitkgSXAYLYEYJH7734-76-66 11:49:004.09[facility]annHEMATOLOGY 2020-04-06 11:49:0012.5[facility] TilwkdbRWNPHZYTUG8495-67-78 11:49:0037.2[facility] CeixxxaKBNJFPGKTC5013-47-37 11:49:0091.0[facility] RfprphjJDYPIIFJLP2939-07-78 11:49:00 Test Item Value Reference Range Interpretation Comments MCH (test code = MCH) 30.6 pg 27.0-31.0 [facility] DtcfkvvUESEMDTEUH8681-98-65 11:49:0033.6[facility]annHEMATOLOGY 2020-04-06 11:49:0014.2[facility] NyrnodoHBZEJRACDO4103-87-80 11:49:53854Bddbkumy RphrydcSVTYXRJIII5841-47-48 11:49:009.6[facility] BxigeclLEUXOMMEFI8936-23-34 11:49:00 Test Item Value Reference Range Interpretation Comments PTT (test code = PTT) 30.0 s 22.9-35.8 [facility] FgtdoonEZHUSRCHKP8113-11-92 11:49:00 Test Item Value Reference Range Interpretation Comments PT (test code = PT) 14.6 s 12.0-14.7 [facility] UblvxbjFLKGTBJAWC8975-85-10 11:49:00 Test Item Value Reference Range Interpretation Comments INR (test code = INR) 1.13 1 0.85-1.17 [facility] DrxlgylXYBXEDENDT3034-03-76 11:49:0065.5[facility]annHEMATOLOGY 2020-04-06 11:49:0021.6[facility] YnkdquqUVORMYBAXV4629-35-41 11:49:0010.7[facility] ElutozfEAOTIKVGOG0433-58-76 11:49:001.2[facility] AcqgpckAPQMYBCSST2336-78-81 11:49:001.0[facility] PmazrftCNPVGRYRDU0712-24-03 11:49:005.5[facility] JJXBCHVRJX9120-11-57 11:49:001.8[facility] PnmneehJZFPOZXJZK0163-87-68 11:49:000.9 [facility] NnlhumaSBWQKNWIZW0922-43-94 11:49:000.1[facility]annHEMATOLOGY 2020-04-06 11:49:000.1[facility] NhlulelSTBWRC1565-10-60 11:49:0060[facility] GkvqkyrOTARRH2210-66-22 11:49:0095[facility] ZhezcitGDHHYL3095-86-12 11:49:0062 [facility] YdpzswuFZSWAU6341-25-00 11:49:00 Test Item Value Reference Range Interpretation Comments CHD Risk (test code = CHD Risk) 1.53 1 3.90-5.80 [facility] PkxbpwpMJBATB5044-50-36 11:49:0021[facility] HkdeaxeHPLGIJ2296-87-21 11:49:00 Test Item Value Reference Range Interpretation Comments VLDL (test code = VLDL) 12 1 [facility]annSPECIAL OHSXUBQBI2915-89-40 11:49:005.8[facility]annURINE AND FIXXS9386-44-65 11:49:00Yellow *NA*(04/06/20 6:49 AM)[facility] [id number] 11:49:00Clear (04/06/20 6:49 AM)[facility] STOOL 2020-04-06 11:49:00 Test Item Value Reference Range Interpretation Comments UA Spec Grav (test code = UA Spec 1.044 1 Grav) [facility] [id number] 11:49:00 Test Item Value Reference Range Interpretation Comments UA pH (test code = UA pH) 5.0 1 5.0-8.0 [facility] [id number] 11:49:00Negative *NA*(04/06/20 6:49 AM) [facility] [id number] 11:49:00Negative (04/06/20 6:49 AM) [facility] RECXM7861-31-62 11:49:00<1.0[facility] OOBJU3592-67-01 11:49:00Negative (04/06/20 6:49 AM)[facility] WNWYU4152-60-55 11:49:00Negative (04/06/20 6:49 AM)[facility] AHMEO8998-99-70 11:49:008[facility] QKPLS0183-19-52 11:49:007 [facility]ARD[facility] MMMJKIV9452-09-69 11:49:002.71[facility]annCHE[facility] PANEL 2020-04-06 11:49:0088[facility] NYAJS4477-83-46 11:49:009[facility] MBBNB9623-42-27 11:49:000.54[facility] GEEUH1575-38-18 11:49:64979Bpvfpeqe HermannCHEM CAFYF7354-84-39 11:49:003.5[facility] VVIPX6266-10-06 11:49:16750Hqkcvmnk HermannCHEM OPIJW9649-45-09 11:49:0029 [facility] JEPYI4299-30-89 11:49:009.5[facility] PANEL 2020-04-06 11:49:007.8[facility] XKVDV5129-57-48 11:49:00 Test Item Value Reference Range Interpretation Comments B/C Ratio (test code = B/C Ratio) 17 1 6-25 [facility] GNXJE0010-97-10 11:49:006.3[facility] PANEL 2020-04-06 11:49:002.9[facility] TIQTQ8206-11-36 11:49:003.4[facility]CHE[facility] NYYLS4768-72-24 11:49:00 Test Item Value Reference Range Interpretation Comments A/G Ratio (test code = A/G Ratio) 0.9 1 0.7-1.6 [facility] FTNIJ6214-27-83 11:49:0035[facility] PANEL 2020-04-06 11:49:0051[facility] IINKB8162-61-17 11:49:0089[facility] THINY4603-67-96 11:49:000.7[facility] REJHX0076-12-46 11:49:0092[facility] GNYGQ0421-91-78 11:49:001.8[facility] SIJUJ4380-97-45 11:49:002.9[facility] PkzapffYAWYUBGEKN5796-84-48 11:49:008.4 [facility] MbrkjcoAHJUEXOWFC8390-47-34 11:49:004.09[facility]annHEMATOLOGY 2020-04-06 11:49:0012.5[facility] KhdkkhkCBJWAHNOWH4924-95-73 11:49:0037.2[facility] AmquevcUVEJMGOBOP4222-28-61 11:49:0091.0[facility] KsgiqvsZXKSPEKACI4562-90-38 11:49:00 Test Item Value Reference Range Interpretation Comments MCH (test code = MCH) 30.6 pg 27.0-31.0 [facility] DhrnftpJPFNMCCYQO2341-79-11 11:49:0033.6[facility]HEMATOLOGY 2020-04-06 11:49:0014.2[facility] WkxfabvGWHBWBSDFN4779-90-68 11:49:05429Iqgpzxhu CcdvdixMWYKMZQUUD0535-52-01 11:49:009.6[facility] FbexgcdCCRDKAHBLA3568-91-46 11:49:00 Test Item Value Reference Range Interpretation Comments PTT (test code = PTT) 30.0 s 22.9-35.8 [facility] VdmxstcDEBABSQAYD1182-63-26 11:49:00 Test Item Value Reference Range Interpretation Comments PT (test code = PT) 14.6 s 12.0-14.7 [facility] JeueoqcAZJUBFCFQX3390-45-54 11:49:00 Test Item Value Reference Range Interpretation Comments INR (test code = INR) 1.13 1 0.85-1.17 [facility] MemhotjKOZRTQRPZM8613-52-88 11:49:0065.5[facility]HEMATOLOGY 2020-04-06 11:49:0021.6[facility] FqwnviuJLVQFLARPT1283-95-16 11:49:0010.7[facility] LhjkawzXSTZPZZXLI8015-36-81 11:49:001.2[facility] UyagscuVOGFZHFTAV1081-14-63 11:49:001.0[facility] AivratlEHQZXSHAUY8403-65-85 11:49:005.5[facility] Aniket KHQBWZKKJZ1484-59-17 11:49:001.8[facility] YxvnzgyUMZYDSWYNY1455-95-94 11:49:000.9 [facility] JgdyabjTSSCRJGKJG4865-63-57 11:49:000.1[facility]annHEMATOLOGY 2020-04-06 11:49:000.1[facility] XzycbtsDPSSAC8562-26-79 11:49:0060[facility] ObyixurPYKZAI7494-90-72 11:49:0095[facility] AaplehqFEGNAS4389-05-22 11:49:0062 [facility] TjktqqtEUFKRT5424-32-95 11:49:00 Test Item Value Reference Range Interpretation Comments CHD Risk (test code = CHD Risk) 1.53 1 3.90-5.80 [facility] TfovszqYINSKF1505-90-55 11:49:0021[facility] JlpiamoGEKARN9083-05-29 11:49:00 Test Item Value Reference Range Interpretation Comments VLDL (test code = VLDL) 12 1 [facility]SPECIAL LHMKLBMAA7670-76-55 11:49:005.8[facility] KMBTB3590-45-17 11:49:00Yellow *NA*(04/06/20 6:49 AM)[facility] YYHIX1389-87-56 11:49:00Clear (04/06/20 6:49 AM)[facility] STOOL 2020-04-06 11:49:00 Test Item Value Reference Range Interpretation Comments UA Spec Grav (test code = UA Spec 1.044 1 Grav) [facility] QDVDJ4873-31-35 11:49:00 Test Item Value Reference Range Interpretation Comments UA pH (test code = UA pH) 5.0 1 5.0-8.0 [facility] JBORA8593-14-62 11:49:00Negative *NA*(04/06/20 6:49 AM) [facility] OWIIF3857-21-78 11:49:00Negative (04/06/20 6:49 AM) [facility] IXZXZ4661-12-14 11:49:00<1.0[facility] IQGUH4978-97-17 11:49:00Negative (04/06/20 6:49 AM)[facility] TSQPW3356-79-25 11:49:00Negative (04/06/20 6:49 AM)[facility] KSQWI0537-47-20 11:49:008[facility] OFALW8063-26-21 11:49:007 [facility]CARD[facility] QMZCJZF4381-91-32 11:23:002.43[facility] VTDJRUH3472-57-51 11:23:002.43[facility] CsaqfcpCQZHHMUAZB3760-56-96 11:04:00Not Detected (04/06/20 6:04 AM)[facility] VkaoaaeKPNSFOSCNX9008-88-06 11:04:00Not Detected (04/06/20 6:04 AM)[facility] PXJNUKX4905-99-00 08:23:004.26 [facility]annCHE[facility] XGOVK7122-45-48 08:23:37082Lxkhsxdd HermannCHEM PANEL 2020-04-06 08:23:0010[facility]annCHEM WUXOZ4806-88-26 08:23:000.70[facility]annCHE[facility] PCQWJ8745-81-79 08:23:94505Lnzqrmaz HermannCHEM ZYIUB8512-70-20 08:23:003.4[facility]annCHE[facility] WAXWB4874-13-64 08:23:09240Zdbpogtl HermannCHEM UKZFF5797-22-84 08:23:0031[facility]CHE[facility] YRJUY2316-22-48 08:23:008.2 [facility]CHE[facility] COSEG4650-53-37 08:23:007.1[facility]annCHEM PANEL 2020-04-06 08:23:003.3[facility]annCHE[facility] EIOAY5824-88-86 08:23:0039[facility]annCHE[facility] FIISD5601-56-80 08:23:0051[facility]CHE[facility] URJRS7313-63-87 08:23:0094[facility]CHE[facility] ITGGS9601-43-97 08:23:000.4[facility]annCHE[facility] YEGHA9434-53-50 08:23:006.4[facility]annCHE[facility] GZRPK0105-70-20 08:23:00 Test Item Value Reference Range Interpretation Comments B/C Ratio (test code = B/C Ratio) 14 1 6-25 [facility] KLFJE0511-29-68 08:23:003.8[facility]annCHEM PANEL 2020-04-06 08:23:00 Test Item Value Reference Range Interpretation Comments A/G Ratio (test code = A/G Ratio) 0.9 1 0.7-1.6 [facility] FMXGT0834-03-47 08:23:0085[facility]annHEMATOLOGY 2020-04-06 08:23:009.0[facility] IeweqvsTABIHQLXMI4321-92-34 08:23:004.45[facility] ZbtpswgXXHHFLZHHT7363-38-09 08:23:0013.6[facility] NkrwvcyNAOJKXHSEP7737-47-92 08:23:0040.1[facility] PwbpfyiCATBNNIYKU9324-91-41 08:23:0090.2[facility] An[facility] XXCNVLYUHQ7443-04-02 08:23:00 Test Item Value Reference Range Interpretation Comments MCH (test code = MCH) 30.6 pg 27.0-31.0 [facility] TrydctqUVKOGOFKGN2301-87-64 08:23:0033.9[facility]annHEMATOLOGY 2020-04-06 08:23:0014.1[facility] DcgizpkDYQUITQCIH0175-57-34 08:23:17785Lrtgahrw AxupjurQMFBKTEHDD0164-28-87 08:23:009.3[facility] MmzkxxlYUJKKRPAYW9788-53-39 08:23:00 Test Item Value Reference Range Interpretation Comments PT (test code = PT) 13.9 s 12.0-14.7 [facility] EpdtdfgOGLQZAFAKG8374-79-96 08:23:00 Test Item Value Reference Range Interpretation Comments INR (test code = INR) 1.07 1 0.85-1.17 [facility] UcahdvoDBTFZJDKPO3760-38-18 08:23:00 Test Item Value Reference Range Interpretation Comments PTT (test code = PTT) 30.4 s 22.9-35.8 [facility] YclrofaDCFWBREDFJ4640-10-81 08:23:0066.9[facility]annHEMATOLOGY 2020-04-06 08:23:0020.1[facility] MkiykuvJJBGKPXQFV3446-80-29 08:23:0011.3[facility] GgsrepgGVJZOSLTCA9837-64-93 08:23:001.1[facility] AswomywMDLQZYXGXU5114-95-63 08:23:000.6[facility] IlniuptBLJBAGQUJW2673-60-41 08:23:006.0[facility] HPIUMDSVSG5869-93-36 08:23:001.8[facility] GkcifwhIVZSUEKTZX3961-74-55 08:23:001.0 [facility] JlftpojKUYAAIBGZP3634-18-97 08:23:000.1[facility]annHE[facility]OLOGY 2020-04-06 08:23:000.1[facility]annCARDIAC EZGNDYU6651-55-97 08:23:004.26 [facility]annCHEM GQXNI5409-03-19 08:23:78782Speyibxb HermannCHEM PANEL 2020-04-06 08:23:0010[facility]annCHEM HLGBG1730-33-26 08:23:000.70[facility]annCHEM DZLJQ8756-37-77 08:23:48933Krqvfglu HermannCHEM MMQUX4110-88-86 08:23:003.4[facility]annCHE[facility] JEXAN2473-48-94 08:23:05377Ptrzejkc HermannCHEM SUDPS1759-16-17 08:23:0031[facility]CHE[facility] XQDVW4855-80-15 08:23:008.2 [facility] YQCVI2843-09-57 08:23:007.1[facility]annCHEM PANEL 2020-04-06 08:23:003.3[facility]annCHE[facility] LQBXD0320-74-49 08:23:0039[facility]annCHEM CQCHF9516-69-61 08:23:0051[facility]annCHE[facility] TBNNX7737-77-52 08:23:0094[facility]annCHE[facility] UZCGA4624-65-66 08:23:000.4[facility]annCHE[facility] DPTUH7543-94-65 08:23:006.4[facility]annCHEM FHGJQ6226-26-35 08:23:00 Test Item Value Reference Range Interpretation Comments B/C Ratio (test code = B/C Ratio) 14 1 6-25 [facility] DKIPG4045-35-22 08:23:003.8[facility]annCHEM PANEL 2020-04-06 08:23:00 Test Item Value Reference Range Interpretation Comments A/G Ratio (test code = A/G Ratio) 0.9 1 0.7-1.6 [facility] SLSOX2206-79-54 08:23:0085[facility]annHEMATOLOGY 2020-04-06 08:23:009.0[facility] FeovygyIFKOBOLXRN6736-82-78 08:23:004.45[facility] XtzdsycCFZYTYDRYY5969-19-14 08:23:0013.6[facility] GettkuuAWUQBMEYPM7514-69-65 08:23:0040.1[facility] GsmpeauGIWJJLRMKL9616-11-65 08:23:0090.2[facility] CPBMGHYNZW1061-35-63 08:23:00 Test Item Value Reference Range Interpretation Comments MCH (test code = MCH) 30.6 pg 27.0-31.0 [facility] BnpvegrZMCFZVQNYI6390-20-93 08:23:0033.9[facility]annHEMATOLOGY 2020-04-06 08:23:0014.1[facility] FregeomBGZXAQMWED5933-22-11 08:23:61059Gpacwaxe KuvzwhmRPUWDOPQPV5133-51-61 08:23:009.3[facility] EjbluwiSYGPAKJSQT4516-17-58 08:23:00 Test Item Value Reference Range Interpretation Comments PT (test code = PT) 13.9 s 12.0-14.7 [facility] MdwjjsiQADVSPRCXP1911-68-89 08:23:00 Test Item Value Reference Range Interpretation Comments INR (test code = INR) 1.07 1 0.85-1.17 [facility] EzrovgcATRPHACJHO8328-55-67 08:23:00 Test Item Value Reference Range Interpretation Comments PTT (test code = PTT) 30.4 s 22.9-35.8 [facility] QnktigtDBEELVTUSG5131-58-90 08:23:0066.9[facility]annHEMATOLOGY 2020-04-06 08:23:0020.1[facility] TaadosjGICABQYUKU3732-00-66 08:23:0011.3[facility] GapmywuVJBTUDNOXN5309-37-52 08:23:001.1[facility] RqgzjtzXLUEXDOGAR0405-99-29 08:23:000.6[facility] KepqvzfMUJMCHKTNS4390-64-49 08:23:006.0[facility] OJAKRRZMJX5107-62-34 08:23:001.8Mem[facility] PektphvFLLTDWGQST3659-91-10 08:23:001.0 [facility] HzljwfoHPHJFGYHBS3581-45-75 08:23:000.1[facility]annHEMATOLOGY 2020-04-06 08:23:000.1[facility]annMR, ABDOMEN, DCGF1225-26-03 11:51:00FINAL REPORT MRI of the abdomen with [...] intraductal papillary mucinous neoplasms (IPMN). Signed: Juni Mitchelleport Verified Date/Time: 10/05/2019 11:51:38 Reading Location: [facility] Radio logy Reading Room LX-MQNKBMAACO4611-99-17 09:33:00 Test Item Value Reference Range Interpretation Comments POC-CREATININE 0.5 mg/dL 0.6-1.3 L TESTED AT [facility] 6720 (MATEUSZ) (test [place] code = 1859) [address] POC-EGFR ([facility]ATE[facility]) 121 mL/min/1.73M2 (test code = 1860) MR, ABDOMEN, [id number] 07:30:00FINAL REPORT TECHNIQUE: MRI of the abdomen [...] tests to assess for cholestasis. Signed: Shaquille Reyes MDReport Verified Date/Time: 05/29/2019 07:30:48 Reading Location: [facility] Diagnostic Imaging Reading Room - [place] [address] 112 TJ-GIDMNBWOTM8814-56-09 09:35:00 Test Item Value Reference Range Interpretation Comments POC-CREATININE 0.6 mg/dL 0.6-1.3 TESTED AT [facility] MC-KG 2457 ([facility]) (test [facility] [place] code = 1859) [address] POC-EGFR ([facility]) Insufficie nt clinical data (test code = 1860) to calcul ate estimated GFR
[2021-09-28] MEDS ORDERED: NA CHLORIDE 0.9% 500 ML ONE (01:40)
[2021-09-28 02:14] LABS: Protime INR 1.12
[2021-09-28 02:17] LABS: Urine Blood Negative (Negative); Urine Glucose Negative (Negative); Urine Protein Negative (Negative); Urine Specific Gravity 1.015 (1.005-1.030); Urine pH 5.5 (5.0-7.0)
[2021-09-28 02:18] LABS: Absolute Lymphocytes (CBC) 1.7 K/uL (0.7-4.9); Hematocrit 37.9 % (36.0-45.0); Lymphocytes % 16.4 % (15.3-44.8); MPV 10.4 fL (7.6-11.3); RBC Red Blood Cell Count 4.27 M/uL (3.86-4.86)
[2021-09-28 02:34] LABS: Albumin 2.5 g/dL (3.4-5.0); Bilirubin Direct 0.3 mg/dL (0-0.2); Bilirubin Total 0.8 mg/dL (0.2-1.0); Potassium 4.2 mmol/L (3.5-5.1); Protein, Total 5.8 g/dL (6.4-8.2); Troponin (Emerg Dept Use Only) 0.03 ng/mL (0.0-0.045)
[2021-09-28] MEDS ORDERED: NA CHLORIDE 0.9% 1,000 ML ONE (03:36)
--- NOTE | 2021-09-28 05:25 | ER ---
Nurse's Notes [facility] Name: Sharla Tesfaye Age: 76 yrs Sex: Female : 1945 Arrival Date: 09/28/2021 Time: 00:28 Bed 18 Private MD: Diagnosis: Fall on same level, unspecified;Unspecified injury of head, initial encounter;Strain of muscle and tendon of back wall of thorax;Strain of muscle and tendon of front wall of thorax Presentation: 09/28 01:06 Chief complaint: Patient states: Fall. Coronavirus screen: Vaccine status: Patient vangie reports receiving the 2nd dose of the covid vaccine. and booster. Ebola Screen: Patient negative for fever greater than or equal to 101.5 degrees Fahrenheit, and additional compatible Ebola Virus Disease symptoms Patient denies exposure to infectious person. Patient denies travel to an Ebola-affected area in the 21 days before illness onset. Initial Sepsis Screen: Does the patient meet any 2 criteria? No. Patient's initial sepsis screen is negative. Risk Assessment: Do you want to hurt yourself or someone else? Patient reports no desire to harm self or others. Onset of symptoms was September 27, 2021. 01:06 Acuity: JENNIFER 3 vangie 01:06 Method Of Arrival: EMS vangie 02:08 Initial Sepsis Screen: Does the patient have a suspected source of infection? No. vangie Patient's initial sepsis screen is negative. Triage Assessment: 01:18 General: Behavior is calm, cooperative, appropriate for age. vangie Historical: - Allergies: 00:49 Amoxicillin; vangie 00:49 annaprox; vangie 00:49 Codeine; vangie 00:49 Demerol; vangie 00:49 Etodolac; vangie 00:49 Ibuprofen; vangie - Home Meds: 00:49 amiodarone 200 mg Oral tab 1 tab 2 times per day [Active]; aspirin 81 mg Oral chew 1 vangie tab once daily [Active]; atorvastatin 80 mg Oral tab 1 tab once daily [Active]; bisoprolol fumarate 5 mg Oral tab 1 tab once daily [Active]; calcium citrate 600 mg Oral gran [Active]; famotidine 40 mg Oral tab 1 tab once daily [Active]; d3 [Active]; Fish Oil 1,000 mg Oral cap [Active]; gabapentin 100 mg Oral cap nightly [Active]; levetiracetam 500 mg Oral tab 1 tab 2 times per day [Active]; memantine 10 mg Oral tab 1 tab 2 times per day [Active]; metoprolol tartrate 25 mg Oral tab 0.5 tab 2 times per day [Active]; pantoprazole 40 mg Oral TbEC 1 tab once daily [Active]; paroxetine HCl 20 mg Oral tab 1 tab once daily [Active]; Plavix 75 mg Oral tab 1 tab once daily [Active]; sotalol 80 mg Oral tab 2 tabs daily [Active]; spironolactone 25 mg Oral tab 1 tab once daily [Active]; trospium 20 mg Oral tab 1 tab [Active]; vitamin b12 [Active]; Vitamin C 1,000 mg Oral tab twice a day [Active]; Xarelto 20 mg Oral tab 1 tab once daily [Active]; - PMHx: 00:49 Atrial Fib; CVA; Dementia; High Cholesterol; Hypertension; vangie - PSHx: 00:49 Appendectomy; Cholecystectomy; Gastric Bypass; left femur repair; Right knee vangie replacement; Tonsillectomy; Total abdominal hysterectomy; watchmen implant; - Social history:: Smoking status: Patient denies any tobacco usage or history of. - Family history:: not pertinent. Screenin:53 Abuse screen: Denies threats or abuse. Denies injuries from another. Nutritional vangie screening: No deficits noted. Tuberculosis screening: No symptoms or risk factors identified. Fall Risk Fall in past 12 months (25 points). Assessment: 00:46 General: Appears in no apparent distress. Pain: Denies pain. Neuro: No deficits noted. vangie GI: No deficits noted. Pt in a brief. Derm: Wound noted left elbow with bandaids intact. Per the pt's family, it is a skin tear, that they covered. Bruising that is green, on forehead to right side. 02:06 Reassessment: Patient appears in no apparent distress at this time. vangie 04:44 General: The pt and her daughter are anxious to be discharged. Awaiting dispo. . vangie Vital Signs: 00:51 BP 123 / 48; Pulse 50; Resp 18; Pulse Ox 98% on R/A; Pain 0/10; vangie 01:17 BP 129 / 46; Pulse 53; Resp 18; Pulse Ox 100% on R/A; vangie 02:06 BP 135 / 66; Pulse 54; Resp 18; Pulse Ox 100% ; Pain 0/10; vangie 03:28 BP 121 / 47; Pulse 52; Resp 18; Temp 98.5; Pulse Ox 100% on R/A; Pain 0/10; vangie 04:36 BP 106 / 43; Pulse 53; Resp 18; Pulse Ox 98% on R/A; Pain 0/10; vangie 05:26 BP 110 / 44; Pulse 52; Resp 16; Pulse Ox 98% on R/A; Pain 0/10; vangie Duane Coma Score: 02:02 Eye Response: spontaneous(4). Verbal Response: oriented(5). Motor Response: obeys dennys commands(6). Total: 15. 02:05 Eye Response: spontaneous(4). Verbal Response: oriented(5). Motor Response: obeys dennys commands(6). Total: 15. ED Course: 00:28 Patient arrived in ED. cs9 00:32 Nigel Espinosa MD is Attending Physician. dennys 00:46 Linda Bhakta, RN is Primary Nurse. vangie 00:53 Patient has correct armband on for positive identification. Bed in low position. Call vangie light in reach. Side rails up X2. Adult w/ patient. manager monitoring on. Pulse ox on. NIBP on. 00:54 No provider procedures requiring assistance completed. vangie 01:08 Triage completed. vangie 01:18 EKG completed in triage. Results shown to MD. vangie 01:53 Basic Metabolic Panel Sent. vangie 01:53 CBC with Diff Sent. vangie 01:53 LFT's Sent. vangie 01:53 Magnesium Sent. vangie 01:53 NT PRO-BNP Sent. vangie 01:53 PT-INR Sent. vangie 01:53 Troponin (emerg Dept Use Only) Sent. vangie 01:54 Inserted saline lock: 20 gauge in left EJ, using aseptic technique. Blood collected. vangie 02:06 No apparent distress. Family visiting at bedside. Awaiting CT Scan. vangie 02:06 manager monitoring on. Pulse ox on. NIBP on. Noise minimized. Warm blanket given. Pillow vangie given. Verbal reassurance given. 02:08 Arm band placed on right wrist. vangie 02:32 XRAY Chest (1 view) In Process Unspecified. EDMS 03:[address] vangie 03:28 Patient moved back from CT. vangie 03:28 manager monitoring on. Pulse ox on. NIBP on. Warm blanket given. vangie 03:32 Urine Culture Sent. vangie 03:46 Head C Spine Cap Wo Con In Process Unspecified. EDMS 05:23 Luke Major MD is Referral Physician. dennys 05:52 intact, bleeding controlled, No redness/swelling at site. Pressure dressing applied. vangie Administered Medications: 01:45 Drug: NS 0.9% 500 ml Route: IV; Rate: bolus; Site: left jugular; vangie 03:33 Follow up: Response: No adverse reaction; IV Intake: 500ml vangie 03:35 Drug: NS 0.9% 1000 ml Route: IV; Rate: 125 ml/hr; Site: Other; vangie Intake: 03:33 IV: 500ml; Total: 500ml. vangie Outcome: 01:18 Condition: stable vangie 05:25 Discharge ordered by . dennys 05:51 Discharged to home via wheelchair, with family. vangie 05:51 Discharge instructions given to patient, family. 05:52 Patient left the ED. vangie Signatures: Dispatcher [employer] EDMD Nigel Espinosa MD MD cha Stanford, Christine 9 Linda Bhakta RN RN vangie Corrections: (The following items were deleted from the chart) 00:51 00:49 PSHx: Gastric Bypass; vangie vangie
--- NOTE | 2021-09-28 05:26 | EDPHYS ---
Physician Documentation [facility] Name: Sharla Tesfaye Age: 76 yrs Sex: Female : 1945 Arrival Date: 09/28/2021 Time: 00:28 Bed 18 Private MD: WADE Physician Nigel Espinosa HPI: 09/28 02:02 This 76 yrs old Female presents to ER via EMS with complaints of weak and dennys fall, hit head. 02:02 The patient or guardian reports pain, swelling, tenderness. The complaints affect the dennys forehead. Context of injury: The problem was sustained at home, resulted from a fall. Onset: The symptoms/episode began/occurred just prior to arrival. Associated signs and symptoms: Loss of consciousness: This patient did not experience any loss of consciousness. Pertinent positives: headache. Details of fall: The patient fell from an upright position, while walking. Associated injuries: The patient sustained injury to the head. Historical: - Allergies: 00:49 Amoxicillin; vangie 00:49 annaprox; vangie 00:49 Codeine; vangie 00:49 Demerol; vangie 00:49 Etodolac; vangie 00:49 Ibuprofen; vangie - Home Meds: 00:49 amiodarone 200 mg Oral tab 1 tab 2 times per day [Active]; aspirin 81 mg Oral chew 1 vangie tab once daily [Active]; atorvastatin 80 mg Oral tab 1 tab once daily [Active]; bisoprolol fumarate 5 mg Oral tab 1 tab once daily [Active]; calcium citrate 600 mg Oral gran [Active]; famotidine 40 mg Oral tab 1 tab once daily [Active]; d3 [Active]; Fish Oil 1,000 mg Oral cap [Active]; gabapentin 100 mg Oral cap nightly [Active]; levetiracetam 500 mg Oral tab 1 tab 2 times per day [Active]; memantine 10 mg Oral tab 1 tab 2 times per day [Active]; metoprolol tartrate 25 mg Oral tab 0.5 tab 2 times per day [Active]; pantoprazole 40 mg Oral TbEC 1 tab once daily [Active]; paroxetine HCl 20 mg Oral tab 1 tab once daily [Active]; Plavix 75 mg Oral tab 1 tab once daily [Active]; sotalol 80 mg Oral tab 2 tabs daily [Active]; spironolactone 25 mg Oral tab 1 tab once daily [Active]; trospium 20 mg Oral tab 1 tab [Active]; vitamin b12 [Active]; Vitamin C 1,000 mg Oral tab twice a day [Active]; Xarelto 20 mg Oral tab 1 tab once daily [Active]; - PMHx: 00:49 Atrial Fib; CVA; Dementia; High Cholesterol; Hypertension; vangie - PSHx: 00:49 Appendectomy; Cholecystectomy; Gastric Bypass; left femur repair; Right knee vangie replacement; Tonsillectomy; Total abdominal hysterectomy; watchmen implant; - Social history:: Smoking status: Patient denies any tobacco usage or history of. - Family history:: not pertinent. ROS: 02:02 Constitutional: Negative for fever, chills, and weight loss, Eyes: Negative for injury, dennys pain, redness, and discharge, ENT: Negative for injury, pain, and discharge, Neck: Negative for injury, pain, and swelling, Cardiovascular: Negative for chest pain, palpitations, and edema, Respiratory: Negative for shortness of breath, cough, wheezing, and pleuritic chest pain, Abdomen/GI: Negative for abdominal pain, nausea, vomiting, diarrhea, and constipation, Back: Negative for injury and pain, : Negative for injury, bleeding, discharge, and swelling, MS/Extremity: Negative for injury and deformity, Skin: Negative for injury, rash, and discoloration, Psych: Negative for depression, anxiety, suicide ideation, homicidal ideation, and hallucinations, Allergy/Immunology: Negative for hives, rash, and allergies, Endocrine: Negative for neck swelling, polydipsia, polyuria, polyphagia, and marked weight changes, Hematologic/Lymphatic: Negative for swollen nodes, abnormal bleeding, and unusual bruising. 02:02 Neuro: Positive for headache, of the forehead. Exam: 02:02 Constitutional: This is a well developed, well nourished patient who is awake, alert, dennys and in no acute distress. Eyes: Pupils equal round and reactive to light, extra-ocular motions intact. Lids and lashes normal. Conjunctiva and sclera are non-icteric and not injected. Cornea within normal limits. Periorbital areas with no swelling, redness, or edema. ENT: Nares patent. No nasal discharge, no septal abnormalities noted. Tympanic membranes are normal and external auditory canals are clear. Oropharynx with no redness, swelling, or masses, exudates, or evidence of obstruction, uvula midline. Mucous membranes moist. Neck: Trachea midline, no thyromegaly or masses palpated, and no cervical lymphadenopathy. Supple, full range of motion without nuchal rigidity, or vertebral point tenderness. No Meningismus. Cardiovascular: Regular rate and rhythm with a normal S1 and S2. No gallops, murmurs, or rubs. Normal PMI, no JVD. No pulse deficits. Respiratory: Lungs have equal breath sounds bilaterally, clear to auscultation and percussion. No rales, rhonchi or wheezes noted. No increased work of breathing, no retractions or nasal flaring. Abdomen/GI: Soft, non-tender, with normal bowel sounds. No distension or tympany. No guarding or rebound. No evidence of tenderness throughout. Back: No spinal tenderness. No costovertebral tenderness. Full range of motion. Female : Normal external genitalia. Skin: Warm, dry with normal turgor. Normal color with no rashes, no lesions, and no evidence of cellulitis. MS/ Extremity: Pulses equal, no cyanosis. Neurovascular intact. Full, normal range of motion. Neuro: Awake and alert, GCS 15, oriented to person, place, time, and situation. Cranial nerves II-XII grossly intact. Motor strength 5/5 in all extremities. Sensory grossly intact. Cerebellar exam normal. Normal gait. Psych: Awake, alert, with orientation to person, place and time. Behavior, mood, and affect are within normal limits. 02:02 Head/face: Noted is contusion, ecchymosis, that is moderate, of the forehead. 02:02 ECG was reviewed by the Attending Physician. Vital Signs: 00:51 BP 123 / 48; Pulse 50; Resp 18; Pulse Ox 98% on R/A; Pain 0/10; vangie 01:17 BP 129 / 46; Pulse 53; Resp 18; Pulse Ox 100% on R/A; vangie 02:06 BP 135 / 66; Pulse 54; Resp 18; Pulse Ox 100% ; Pain 0/10; vangie 03:28 BP 121 / 47; Pulse 52; Resp 18; Temp 98.5; Pulse Ox 100% on R/A; Pain 0/10; vangie 04:36 BP 106 / 43; Pulse 53; Resp 18; Pulse Ox 98% on R/A; Pain 0/10; vangie 05:26 BP 110 / 44; Pulse 52; Resp 16; Pulse Ox 98% on R/A; Pain 0/10; vangie [place] Coma Score: 02:02 Eye Response: spontaneous(4). Verbal Response: oriented(5). Motor Response: obeys [facility] commands(6). Total: 15. 02:05 Eye Response: spontaneous(4). Verbal Response: oriented(5). Motor Response: obeys dennys commands(6). Total: 15. Procedures: 02:41 Peripheral line: by aseptic technique a peripheral line was placed in the left external dennys jugular vein. MDM: 00:32 Patient medically screened. [facility] 02:05 Differential diagnosis: Contusion of Hematoma on Intracranial bleed- Concussion dennys cerebral contusion. Differential diagnosis: abrasion, closed head injury, contusion, fracture, multiple trauma, sprain, strain. Data reviewed: vital signs, nurses notes, lab test result(s), EKG, radiologic studies, CT scan, plain films. Data interpreted: protective services social worker: rate is 53 beats/min, rhythm is regular, Pulse oximetry: on room air is 100 %. Test interpretation: by ED physician or midlevel provider: ECG, plain radiologic studies. Counseling: I had a detailed discussion with the patient and/or guardian regarding: the historical points, exam findings, and any diagnostic results supporting the discharge/admit diagnosis, lab results, radiology results, the need for outpatient follow up, for definitive care, a family practitioner. 09/28 00:33 Order name: Basic Metabolic Panel; Complete Time: 03:51 [facility] 09/28 00:33 Order name: CBC with Diff; Complete Time: 02:40 [facility] 09/28 00:33 Order name: LFT's; Complete Time: 03:51 [facility] 09/28 00:33 Order name: Magnesium; Complete Time: 03:51 [facility] 09/28 00:33 Order name: NT PRO-BNP; Complete Time: 03:51 [facility] 09/28 00:33 Order name: PT-INR; Complete Time: 02:40 [facility] 09/28 00:33 Order name: Troponin (emerg Dept Use Only); Complete Time: 03:51 [facility] 09/28 00:33 Order name: XRAY Chest (1 view) 09/28 00:33 Order name: Urine Culture [facility] 09/28 02:17 Order name: Urine Dipstick-Ancillary; Complete Time: 02:40 EDMS 09/28 03:08 Order name: Head C Spine Cap Wo Con EDMS 09/28 00:33 Order name: EKG; Complete Time: 00:34 [facility] 09/28 00:33 Order name: Cardiac monitoring; Complete Time: :52 [facility] 09/28 00:33 Order name: EKG - Nurse/Tech; Complete Time: [facility] 09/28 00:33 Order name: IV Saline Lock; Complete Time: [facility] 09/28 00:33 Order name: Labs collected and sent; Complete Time: [facility] 09/28 00:33 Order name: O2 Per Protocol; Complete Time: [facility] 09/28 00:33 Order name: O2 Sat Monitoring; Complete Time: [facility] 09/28 00:33 Order name: Urine Dipstick-Ancillary (obtain specimen); Complete Time: 03:32 [facility] EC:02 Rate is 50 beats/min. Rhythm is regular. QRS [place] is Normal. TN interval is normal. QRS dennys interval is normal. QT interval is normal. No Q waves. T waves are Normal. No ST changes noted. Clinical impression: NSR w/ Non-specific ST/T Changes and No evidence of ischemia. Interpreted by me. Reviewed by me. Administered Medications: 01:45 Drug: NS 0.9% 500 ml Route: IV; Rate: bolus; Site: left jugular; vangie 03:33 Follow up: Response: No adverse reaction; IV Intake: 500ml vangie 03:35 Drug: NS 0.9% 1000 ml Route: IV; Rate: 125 ml/hr; Site: Other; vangie Disposition Summary: 09/28/21 05:25 Discharge Ordered Location: Home dennys Problem: new dennys Symptoms: have improved dennys Condition: Stable dennys Diagnosis - Fall on same level, unspecified dennys - Unspecified injury of head, initial encounter dennys - Strain of muscle and tendon of back wall of thorax dennys - Strain of muscle and tendon of front wall of thorax dennys Followup: dennys - With: Private Physician - When: 2 - 3 days - Reason: Recheck today's complaints, Continuance of care, Re-evaluation by your physician Followup: dennys - With: - When: 2 - 3 days - Reason: Recheck today's complaints, Re-evaluation by your physician Discharge Instructions: - Discharge Summary Sheet dennys - Contusion dennys - Head Injury, Adult dennys - Fall Prevention in the Home, Adult dennys - Contusion, [id number] dennys - Fall Prevention in the Home, Adult, [id number] dennys - Head Injury, Adult, [id number] dennys Forms: - Medication Reconciliation Form dennys - Thank You Letter dennys - Antibiotic Education dennys - Prescription Opioid Use dennys Signatures: Dispatcher [employer] EDNigel Shelton MD MD cha O'Farrell, Brenda RN RN vangie Corrections: (The following items were deleted from the chart) 00:51 00:49 PSHx: Gastric Bypass; vangie vangie 03:08 00:34 Head C Spine CAP W Con+CT.RAD.BRZ ordered. EDMS EDMS
[2021-09-28 06:03] VITALS: TEMP 98.5
[2021-09-28 06:05] VITALS: O2SAT 98
[2021-09-28 06:08] VITALS: BP 110/44
--- NOTE | 2021-09-28 08:39 | RAD REPORT ---
EXAM DESCRIPTION: Ann Marie Single View09/28/2021 2:32 am CLINICAL HISTORY: Cough COMPARISON: May 2021 FINDINGS: The lungs appear clear of acute infiltrate. The heart is mildly enlarged IMPRESSION: No acute abnormalities displayed
--- NOTE | 2021-09-28 12:42 | RAD REPORT ---
EXAM DESCRIPTION: CT - Head C Spine Cap Wo Con - 09/28/2021 5:49 am CLINICAL HISTORY: 76 years Female PAIN, fell, bruising and swelling to forehead TECHNIQUE: Multiple axial CT images of the brain, cervical spine, chest, abdomen and pelvis were per formed without intravenous contrast followed by sagittal and coronal reconstructed images. The CT holly dy is performed according to ALARA (as low as reasonably achievable) or ALARA/IMAGE GENTLY, with auto matic adjustment of mA and/or kV according to patient size. Performed on: 09/28/2021 at 3:15 AM COMPARISON: The head CT and cervical spine CT from 06/15/2021 4 unavailable for comparison. The repor t was available for review. CT head performed on 12/26/2020. CT cervical spine performed on 02/18/[address] chest, abdomen and pelvis performed on 03/12/2021. FINDINGS: CT HEAD: There is no evidence of mass, acute mass effect or midline shift. There are no acute extra-axial flui d collections. There is no evidence of acute intracranial hemorrhage. The cerebral sulci and ventricles are prominent consistent with mild to moderate cerebral volume loss . There are scattered areas of decreased attenuation within the subcortical and periventricular white m atter most likely due to mild chronic microangiopathy. There are bifrontal areas of encephalomalacia. There is no significant mucosal thickening of the paranasal sinuses. The mastoid air cells are clear. The orbital contents are grossly unremarkable. No acute osseous abnormalities are identified. There is left frontal scalp soft tissue swelling and hematoma. CT CERVICAL SPINE: The cervical vertebrae are normal in height. There is chronic mild loss of height of C7, T1 and T2. T here is normal alignment of the vertebrae. The disc spaces are well preserved in height. Bone liability claims examiner alization is within normal limits. The atlanto-axial articulation is preserved and the odontoid pro cess is intact. There is normal alignment of the facet joints on the parasagittal images. There is mild degenerative spurring along the cervical spine, mostly involving the mid to lower cervical spine. There is promine nt facet joint hypertrophy on the left at C2-C3 and C3-C4. There are chronic changes of the atlantoax ial articulation. There is no evidence of acute fracture or subluxation. There is no significant canal stenosis. Ther e is no significant neural foraminal stenosis. The prevertebral and paraspinal soft tissues are unr emarkable. The lung apices are clear. CHEST: Lungs: The lungs are well expanded and are clear. There are no pleural effusions. There is no pneumot horax. There is minimal dependent atelectasis in the left lung base. Heart: The heart is normal in size. There is no pericardial effusion. There appears to be a Watch man device in the region of the left atrial appendage. Mediastinum: The mediastinum is unremarkable. The mediastinal vessels are normal in caliber and con tour. There are mild atherosclerotic calcifications along the thoracic aorta. Bones: No acute osseous abnormalities are identified. There are old healed right-sided rib fractures. The thoracic vertebrae are grossly stable in height and alignment when compared to the prior study p erformed on 03/12/2021. Soft tissues: No focal soft tissue abnormalities are identified. Lymphadenopathy: No pathologic hilar, mediastinal or axillary lymphadenopathy is identified. ABDOMEN/PELVIS: Liver: The liver is normal in size and configuration. No focal hepatic abnormalities are identified. There is marked increased attenuation of the liver which can be due to multiple etiologies including hemosiderosis, hemachromatosis or other metabolic and/or toxic etiologies. Spleen: The spleen is normal is size, configuration and attenuation. There are multiple splenic granu tarun. Gallbladder and bile duct: The gallbladder is not identified and is likely surgically absent. There is mild intrahepatic and extrahepatic biliary ductal dilatation likely related to prior cholecystect kristina. No definite choledocholithiasis is identified. Pancreas: The pancreas is grossly unremarkable. Adrenal Glands: The adrenal glands are normal in size and configuration. Kidneys: The kidneys are normal in size and configuration. There is no evidence of hydronephrosis. Th ere is no evidence of nephrolithiasis. No definite solid or cystic renal mass lesions are identified. Stomach: There are remote postsurgical changes of the stomach. There is a small hiatal hernia versus gastric pouch. Bowel: The bowel gas pattern is non specific and non obstructive. There is moderate fecal residue sca ttered throughout the colon. Appendix: The appendix is normal. Free air: There is no evidence of free air. Free fluid: There is no evidence of free fluid. Vasculature: The aorta is normal in caliber and contour. There are mild atherosclerotic calcification s along the abdominal aorta. The inferior vena cava is grossly unremarkable. Lymphadenopathy: No pathologic lymphadenopathy is identified. Bladder: The bladder is well distended and smooth in contour. There are multiple pelvic phleboliths a djacent to the bladder. Reproductive: The uterus is not well visualized and likely surgically absent. Bones: No acute osseous abnormalities are identified. There are remote postsurgical changes of the le ft femur consistent with ORIF. There are old healed fractures of the pubic rami bilaterally. There ar e chronic compression fractures throughout the lumbar spine with multilevel canal stenosis. Soft tissues: No focal soft tissue abnormalities are identified. IMPRESSION: CT HEAD: 1. There is no evidence of acute intracranial pathology. 2. Mild to moderate cerebral atrophy with associated chronic microangiopathy and chronic encephalomal acia. 3. Left frontal scalp soft tissue swelling and hematoma. CT CERVICAL SPINE: 1. No evidence of acute cervical spine injury. 2. Degenerative changes of the cervical spine as described above. 3. Chronic mild loss of height of C7, T1 and T2. CT CHEST: 1. No evidence of acute intrathoracic disease. There is minimal left basilar dependent atelectasis. 2. There is a Watchman device in the region of the left atrial appendage. 3. Old right-sided rib fractures. CT ABDOMEN AND PELVIS: 1. No evidence of acute intra-abdominal or intrapelvic pathology. 2. Marked increased attenuation of the liver which can be due to multiple different etiologies includ e hemosiderosis, hemachromatosis and other metabolic and/or toxic etiologies. 3. Evidence of prior granulomatous disease. 4. Prior cholecystectomy with likely physiologic dilatation of the intrahepatic and extrahepatic bile ducts. 5. Remote postsurgical changes of the stomach with either small hiatal hernia and/or postsurgical gas tric pouch. 6. Moderate fecal residue scattered throughout the colon. 7. Chronic moderate compression fractures throughout the lumbar spine and chronic fractures of the pu bic rami bilaterally Electronically signed by: Barbi Joe DO 09/28/2021 4:44 AM [facility] Due to temporary technical issues with the PACS/Fluency reporting system, reports are being signed by the in house radiologist without review as a courtesy to ensure prompt reporting. The interpreting r adiologist is fully responsible for the content of the report.
== END 2021-09-28 05:52 | disposition home or self-care (01) ==
LOC: ER 00:10
PROC: 05HQ33Z Insertion of Infusion Device into Left External Jugular Vein, Percutaneous Approach (ICD-10-PCS; principal; 2021-09-28)
DX: S09.90XA Unspecified injury of head, initial encounter (principal); S29.012A Strain of muscle and tendon of back wall of thorax, initial encounter; S29.011A Strain of muscle and tendon of front wall of thorax, initial encounter; W18.30XA Fall on same level, unspecified, initial encounter; I10 Essential (primary) hypertension; I48.91 Unspecified atrial fibrillation; F03.90 Unspecified dementia, unspecified severity, without behavioral disturbance, psychotic disturbance, mood disturbance, and anxiety; Z79.01 Long term (current) use of anticoagulants; Z79.82 Long term (current) use of aspirin; Z88.1 Allergy status to other antibiotic agents; Z88.5 Allergy status to narcotic agent; Z88.6 Allergy status to analgesic agent; Z88.8 Allergy status to other drugs, medicaments and biological substances
CPT/HCPCS: 93005; 87088; 85025; 87086; 80048; 36415; 83735; 85610; 80076; 81003; 84484; 83880; 70450; 71250; 72125; 71045; 99285; 36569; J7040; J7030